=== PATIENT | female | born 1945 | race Caucasian/White ===

== ENCOUNTER 2017-04-27 11:54 | Emergency (ER) | payer MEDICARE, OTHER ==
[~2017-04-27] VITALS: Ht 170.2 cm; Wt 86.6 kg
[~2017-04-27 11:54] MED LIST: ALPR.5T PO; AMLO5TAB2 PO; CHLO500T2 PO; FNT75TD TD; MTP50T PO; NAPR-243 PO; OXYC-12 PO; blood pressure med; naprosyn
[2017-04-27] MEDS ORDERED: NS IV 1000 ML 1,000 ML IV ONE ×2 (12:14→15:10)
[2017-04-27] MEDS ORDERED: ONDANSETRON 4 MG/2 ML (SDV) Z0FRAN IVP ONE (12:15)
[2017-04-27 12:22] LABS: BASOPHILS % (AUTO) 0 % (0-10); EOSINOPHILS # (AUTO) 0.1 10^3/uL (0.0-0.3); EOSINOPHILS % (AUTO) 1 % (0-10); LYMPHOCYTES # (AUTO) 1.6 X 10^3 (1.0-4.0); LYMPHOCYTES % (AUTO) 20 % (12-44); MEAN CORPUSCULAR HEMOGLOBIN 28 PG (25-34); MEAN CORPUSCULAR HGB CONC 34 G/DL (32-36); MEAN CORPUSCULAR VOLUME 83 FL (80-99); MEAN PLATELET VOLUME 10.2 FL (7.4-10.4); MONOCYTES # (AUTO) 0.6 X 10^3 (0.0-1.0); MONOCYTES % (AUTO) 8 % (0-12); NEUTROPHILS # (AUTO) 5.6 X 10^3 (1.8-7.8); NEUTROPHILS % (AUTO) 72 % (42-75); PLATELET COUNT 240 10^3/uL (130-400); RED BLOOD COUNT 5.28 10^6/uL (4.35-5.85); RED CELL DISTRIBUTION WIDTH 14.1 % (10.0-14.5); WHITE BLOOD COUNT 7.8 10^3/uL (4.3-11.0)
--- NOTE | 2017-04-27 12:42 | ED General ---
General Chief Complaint: Abdominal/GI Problems Stated Complaint: NAUSEA/BP Nursing Triage Note: PT CO OF ABD PAIN AND VOMITING AND HTN Nursing Sepsis Screen: No Definite Risk Source of Information: Patient, Spouse Exam Limitations: No Limitations History of Present Illness Time Seen by Provider: 12:10 Initial Comments 71-year-old female patient presents to the emergency department with complaints of upper abdominal pain, nausea, and vomiting onset today. Does complain of elevated blood pressure this morning after vomiting her blood pressure medications. Reports spicy and fatty foods make symptoms worse. Patient is very anxious about health. Patient reports she was told when she had her last c -section that she had a bad gallbladder and it would eventually need removed. Has had several ultrasounds of the gallbladder that were negative. Timing/Duration: 1-3 Hours Modifying Factors: worse with Eating Allergies and Home Medications Allergies Coded Allergies: Penicillins (Unverified Adverse Reaction, Intermediate, 09/15/13) Sulfa (Sulfonamide Antibiotics) (Unverified Adverse Reaction, Intermediate , 09/15/13) Uncoded Allergies: ivp dye (Adverse Reaction, Intermediate, 09/15/13) Home Medications Alprazolam 0.5 Mg Tablet, 1 TAB PO TID PRN PRN for ANXIETY, #50 Prescribed by: ANAND SINGH on 09/22/13 1258 Amlodipine Besylate 5 Mg Tablet, 5 MG PO DAILY, #0 Prescribed by: GÓMEZ SANDY on 09/15/132026 Chlorzoxazone 500 Mg Tablet, 500 MG PO QID, (Reported) Fentanyl 1 Ea Patch, 1 EACH TD Q72H, #7 Prescribed by: NORMAN OAKLEY on 09/22/137 Metoprolol Tartrate 50 Mg Tablet, 50 MG PO BID, #0 Prescribed by: GÓMEZ SANDY on 09/15/132102 Naproxen 500 Mg Tablet, 500 MG PO BID, #0 Prescribed by: GÓMEZ SANDY on 09/15/132026 Oxycodone Hcl/Acetaminophen 1 Each Tablet, 1 EACH PO Q4-6H PRN, #30 Ref 0 Prescribed by: NORMAN OAKLEY on 09/22/13356 Constitutional: No chills, No fever, No malaise Respiratory: No cough, No short of breath Cardiovascular: No chest pain, No palpitations, No syncope Gastrointestinal: abdominal pain (RUQ), No constipation, No diarrhea, No jaundice, loss of appetite, No melena, nausea, vomiting Genitourinary: No dysuria, No frequency, No hematuria, No pain Musculoskeletal: no symptoms reported Skin: no symptoms reported Psychiatric/Neurological: Anxiety All Other Systems Reviewed Negative Unless Noted: Yes (Negative excepted noted.) Past Syzyxcb-Absqwq-Cphamq Hx Patient Social History Alcohol Use: Denies Use Recreational Drug Use: No Smoking Status: Never a Smoker Recent Foreign Travel: No Contact w/Someone Who Travel: No Recent Infectious Disease Expo: No Immunizations Up To Date Tetanus Booster (TDap): More than 5yrs Date of Pneumonia Vaccine: Sep 21, 2013 Date of Influenza Vaccine: Aug 25, 2013 Surgeries HX Surgeries: Yes Surgeries: Adenoidectomy, Appendectomy, Section, Oophorectomy, Orthopedic (laminectomy), Tonsillectomy Respiratory Hx Respiratory Disorders: No Cardiovascular Hx Cardiac Disorders: No Cardiac Disorders: Hypertension Neurological Hx Neurological Disorders: No 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 System Female 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 Disorders: Ovarian Cyst Genitourinary Hx Genitourinary Disorders: No Gastrointestinal Hx Gastrointestinal Disorders: No Musculoskeletal Hx Musculoskeletal Disorders: Yes Musculoskeletal Disorders: Arthritis, Chronic Back Pain Endocrine Hx Endocrine Disorders: No HEENT HX ENT Disorders: No Cancer Hx Cancer: No Psychosocial Hx Psychiatric Problems: No Behavioral Health Disorders: Anxiety Integumentary HX Skin/Integumentary Disorder: No Blood Transfusions Hx Blood Disorders: No Reviewed Nursing Assessment Reviewed/Agree w Nursing PMH: Yes Family Medical History Significant Family History: No Pertinent Family Hx Family Medial History: Cancer 03 FATHER (RADICAL NECK CANCER ) Family history: Cardiovascular disease 09 BROTHER Stroke 09 BROTHER, Onset:58 ( FROM STROKE) Physical Exam Vital Signs Vital Sign - Last 12Hours 04/27/17 12:10 Temp 98.1 Pulse 67 Resp 12 B/P (MAP) 178/88 Capillary Refill : Less Than 3 Seconds General Appearance: WD/WN, Anxious HEENT: PERRL/EOMI, Pharynx Normal Neck: Normal Inspection, Supple Respiratory: Lungs Clear, Normal Breath Sounds, No Respiratory Distress Cardiovascular: Regular Rate, Rhythm, No Edema, No Murmur, Normal Peripheral Pulses Gastrointestinal: Normal Bowel Sounds, No Organomegaly, No Pulsatile Mass, Soft , No Distended, Guarding (RUQ), No Rebound, Tenderness (RUQ tenderness with (+) orozco's sign.) Back: Normal Inspection, No CVA Tenderness Extremity: Normal Capillary Refill, No Pedal Edema Neurologic/Psychiatric: Alert, Oriented x3, Other (patient is very anxious. difficult to keep focused. ) Skin: Normal Color, Warm/Dry Progress/Results/Core Measures Results/Orders Lab Results Laboratory Tests Test 04/27/17 12:06 04/27/17 12:10 04/27/17 13:30 Range/Units Glucometer 141 H 70-110 MG/DL White Blood Count 7.8 4.3-11.0 10^3/uL Red Blood Count 5.28 4.35-5.85 10^6/uL Hemoglobin 15.0 11.5-16.0 G/DL Hematocrit 44 35-52 % Mean Corpuscular Volume 83 80-99 FL Mean Corpuscular Hemoglobin 28 25-34 PG Mean Corpuscular Hemoglobin Concent 34 32-36 G/DL Red Cell Distribution Width 14.1 10.0-14.5 % Platelet Count 240 130-400 10^3/uL Mean Platelet Volume 10.2 7.4-10.4 FL Neutrophils (%) (Auto) 72 42-75 % Lymphocytes (%) (Auto) 20 12-44 % Monocytes (%) (Auto) 8 0-12 % Eosinophils (%) (Auto) 1 0-10 % Basophils (%) (Auto) 0 0-10 % Neutrophils # (Auto) 5.6 1.8-7.8 X 10^3 Lymphocytes # (Auto) 1.6 1.0-4.0 X 10^3 Monocytes # (Auto) 0.6 0.0-1.0 X 10^3 Eosinophils # (Auto) 0.1 0.0-0.3 10^3/uL Basophils # (Auto) 0.0 0.0-0.1 10^3/uL Sodium Level 141 135-145 MMOL/L Potassium Level 3.8 3.6-5.0 MMOL/L Chloride Level 107 98-107 MMOL/L Carbon Dioxide Level 22 21-32 MMOL/L Anion Gap 12 5-14 MMOL/L Blood Urea Nitrogen 24 H 7-18 MG/DL Creatinine 1.13 0.60-1.30 MG/DL Estimat Glomerular Filtration Rate 47 BUN/Creatinine Ratio 21 Glucose Level 137 H 70-105 MG/DL Calcium Level 9.9 8.5-10.1 MG/DL Total Bilirubin 0.7 0.1-1.0 MG/DL Aspartate Amino Transf (AST/SGOT) 25 5-34 U/L Alanine Aminotransferase (ALT/SGPT) 29 0-55 U/L Alkaline Phosphatase 101 40-136 U/L Total Protein 7.3 6.4-8.2 GM/DL Albumin 3.9 3.2-4.5 GM/DL Lipase 14 8-78 U/L Urine Color YELLOW Urine Clarity CLEAR Urine pH 7 5-9 Urine Specific [place] 1.005 L 1.016-1.022 Urine Protein 2+ H NEGATIVE Urine Glucose (UA) NEGATIVE NEGATIVE Urine Ketones NEGATIVE NEGATIVE Urine Nitrite NEGATIVE NEGATIVE Urine Bilirubin NEGATIVE NEGATIVE Urine Urobilinogen NORMAL NORMAL MG/DL Urine Leukocyte Esterase NEGATIVE NEGATIVE Urine RBC (Auto) NEGATIVE NEGATIVE Urine RBC NONE /HPF Urine WBC RARE /HPF Urine Crystals NONE /LPF Urine Bacteria NEGATIVE /HPF Urine Casts NONE /LPF Urine Mucus NEGATIVE /LPF Urine Culture Indicated NO My Orders Orders - REBECCA DASILVA Cbc With Automated Diff (04/27/17 12:14) Comprehensive Metabolic Panel (04/27/17 12:14) Lipase (04/27/17 12:14) Ua Culture If Indicated (04/27/17 12:14) Saline Lock/Iv-Start (04/27/17 12:14) Us Gallbladder 30097 (04/27/17 12:14) Ns Iv 1000 Ml (Sodium Chloride 0.9%) (04/27/17 12:14) Ondansetron Injection (Zofran Injectio (04/27/17 12:15) Lorazepam Injection (Ativan Injection) (04/27/17 13:45) Ns Iv 1000 Ml (Sodium Chloride 0.9%) (04/27/17 15:10) Meclizine Tablet (Antivert Tablet) (04/27/17 15:10) Medications Given in ED Current Medications Medications Dose Ordered Sig/Sara Route Start Time Stop Time Status Last Admin Dose Admin Lorazepam 1 mg ONCE ONCE IVP 04/27/17 13:45 04/27/17 13:46 DC 04/27/17 13:43 1 MG Ondansetron HCl 4 mg ONCE ONCE IVP 04/27/17 12:15 04/27/17 12:16 DC 04/27/17 12:49 4 MG Sodium Chloride 1,000 ml @ 0 mls/hr Q0M ONCE IV 04/27/17 12:14 04/27/17 12:15 DC 04/27/17 12:48 1,000 MLS/HR Sodium Chloride 1,000 ml @ 0 mls/hr Q0M ONCE IV 04/27/17 15:10 04/27/17 15:11 DC 04/27/17 15:15 0 MLS/HR Vital Signs/I&O Vital Sign - Last 12Hours 04/27/17 12:10 Temp 98.1 Pulse 67 Resp 12 B/P (MAP) 178/88 Blood Pressure Mean: 118 Diagnostic Imaging Diagonstic Imaging: Ultrasound Plain Films/CT/US/NM/MRI: other (gallbladder) Comments FINDINGS: The liver appears unremarkable. Doppler imaging demonstrates normal hepatopetal flow in the main portal vein. There is no biliary dilatation. Common bile duct measures about 7 mm, which is upper limits normal for patient age. The gallbladder appears unremarkable. The pancreas is unremarkable as visualized but incompletely seen. The right kidney measures 10.7 cm in length and appears normal. There is no ascites or sonographic Orozco's sign. IMPRESSION : No acute abnormality is demonstrated. There is limited visualization of the pancreas. Dictated on workstation # [id number] Reviewed: Reviewed by Me (radiology report reviewed by me) Departure Impression Impression: Primary Impression: Right upper quadrant abdominal pain Additional Impressions: Nausea & vomiting Anxiety about health Hypertension Disposition: HOME, SELF-CARE Condition: Improved Departure-Patient Inst. Decision time for Depature: 13:48 Referrals: DEBORAH MORALES MD (PCP/Family) Primary Care Physician Patient Instructions: HIDA Scan (DC), Low Cholesterol, Saturated Fat, and Trans Fat Diet Add. Discharge Instructions: All discharge instructions reviewed with patient and/or family. Voiced understanding. Medications as instructed. Check blood pressure no more than 2-3 times per day for routine checks and as needed for when you are not feeling well. Avoid standing too quickly. Sit on the side of the bed for 3-4 minutes before standing when getting out of bed. Alternate water and gatorade/powerade. Avoid the heat for the next 3-4 days as much as possible. STOP THE HYDROCHLOROTHIAZIDE. Continue xanax, doxazosin, amlodipine, glimepiride, losartan, fluticasone, and zofran as instructed. Strict low-fat diet. Continue usual home medications. Avoid spicy and fatty foods. Follow-up with Dr. Morales as an outpatient for recheck and possible need for outpatient hepatobiliary scan to further evaluate the gallbladder. Call today for appointment time. Return to the emergency department for worsened symptoms or any other concerns. Scripts Meclizine HCl (Meclizine HCl) 25 Mg Tablet 25 MG PO Q6H Y for DIZZINESS, #30 TAB 0 Refills Prov: REBECCA DASILVA 04/27/17 REBECCA DASILVA Apr 27, 2017 12:42
[2017-04-27 12:45] LABS: ALBUMIN 3.9 GM/DL (3.2-4.5); BILIRUBIN,TOTAL 0.7 MG/DL (0.1-1.0); CALCIUM 9.9 MG/DL (8.5-10.1); CREATININE SERUM 1.13 MG/DL (0.60-1.30); POTASSIUM 3.8 MMOL/L (3.6-5.0); TOTAL PROTEIN 7.3 GM/DL (6.4-8.2)
[2017-04-27 13:39] LABS: BILIRUBIN,URINE NEGATIVE (NEGATIVE); KETONES,URINE NEGATIVE (NEGATIVE); LEUKOCYTE ESTERASE ,URINE NEGATIVE (NEGATIVE); NITRITE,URINE NEGATIVE (NEGATIVE); PH,URINE 7 (5-9); PROTEIN,URINE 2+ (NEGATIVE); UROBILINOGEN,URINE NORMAL (NORMAL)
[2017-04-27] MEDS ORDERED: LORazepam INJ 2 MG/ML (ATIVAN) VIAL IVP ONE (13:45)
--- NOTE | 2017-04-27 13:45 | Diagnostic Imaging Report ---
PROCEDURE: US Gallbladder. TECHNIQUE: Multiple real-time grayscale images were obtained over the right upper quadrant in various projections. INDICATION: Nausea and vomiting. COMPARISON: None. FINDINGS: The liver appears unremarkable. Doppler imaging demonstrates normal hepatopetal flow in the main portal vein. There is no biliary dilatation. Common bile duct measures about 7 mm, which is upper limits normal for patient age. The gallbladder appears unremarkable. The pancreas is unremarkable as visualized but incompletely seen. The right kidney measures 10.7 cm in length and appears normal. There is no ascites or sonographic Orozco's sign. IMPRESSION: No acute abnormality is demonstrated. There is limited visualization of the pancreas. Dictated by: Dictated on workstation # [id number]
[2017-04-27 13:48] LABS: WBC,URINE RARE /HPF
[2017-04-27] MEDS ORDERED: MECLIZINE 25 MG (ANTIVERT) TAB PO STA (15:10)
[2017-04-27] MEDS ORDERED: MECL-106 PO (16:17)
[2017-04-27 16:30] VITALS: BP 165/74
== END 2017-04-27 16:30 | disposition home or self-care (01) ==
LOC: EDUNIT# 11:54 → ER 11:57
DX: R10.11 Right upper quadrant pain (principal); R11.2 Nausea with vomiting, unspecified; I10 Essential (primary) hypertension; F41.9 Anxiety disorder, unspecified; M54.9 Dorsalgia, unspecified; G89.29 Other chronic pain; M19.90 Unspecified osteoarthritis, unspecified site; Z82.49 Family history of ischemic heart disease and other diseases of the circulatory system; Z90.49 Acquired absence of other specified parts of digestive tract
CPT/HCPCS: 36415; 76705; 80053; 81000; 82962; 83690; 85025; 96361; 96374; 96375

== ENCOUNTER → 2017-06-14 | Outpatient (CLI) | payer MEDICARE, OTHER ==
[~2017-06-14] MED LIST changes: +MECL-106 PO
--- NOTE | 2017-06-16 14:12 | Diagnostic Imaging Report ---
EXAMINATION: Bilateral screening mammogram 2D views with tomosynthesis. The current study was also evaluated with a Computer Aided Detection (CAD) system. INDICATION: Screening. PERSONAL HISTORY: No current complaints stated on the questionnaire. COMPARISON: 04/20/2016. FINDINGS: The breasts are composed of scattered fibroglandular densities. There are numerous benign-appearing calcifications and biopsy clips seen in the medial aspect of the right breast. Allowing for technique and positional differences, no suspicious change is seen. IMPRESSION: No significant change. ACR BI-RADS Category 2: Benign findings. Result letter will be mailed to the patient. Note: At least 10% of breast cancer is not imaged by mammography. Dictated by: Dictated on workstation # [id number]
== END ==
LOC: RAD 14:43
PROVIDERS: ATTEND Nurse Practitioner Family
DX: Z12.31 Encounter for screening mammogram for malignant neoplasm of breast (principal)
CPT/HCPCS: 77067

== ENCOUNTER 2018-04-25 18:00 | Outpatient (RCR) | payer MEDICARE, OTHER ==
[~2018-04-25] VITALS: Ht 170.2 cm; Wt 93.0 kg
== END 2018-05-03 | disposition still patient (30) ==
LOC: DSME 18:00
PROVIDERS: ATTEND Family Medicine
DX: E11.9 Type 2 diabetes mellitus without complications (principal)

== ENCOUNTER → 2018-07-15 | Outpatient (CLI) | payer MEDICARE, OTHER ==
--- NOTE | 2018-07-15 12:14 | Diagnostic Imaging Report ---
EXAMINATION: Digital mammogram bilateral screening with 3D tomosynthesis. INDICATION: Screening. COMPARISON: This study was compared to the prior exams of 06/14/2017, 04/20/2016, 04/22/2015, and 10/23/2014. At this time, there are no current complaints. The current study was also evaluated with a Computer Aided Detection (CAD) system. FINDINGS: The fibroglandular tissue in both breasts is heterogeneously dense. This does limit the sensitivity of this exam. As on the previous study, there are numerous microcalcifications scattered throughout the right breast. These calcifications are somewhat more numerous than noted on the previous study but still have a generally benign appearance. The calcifications are not tightly grouped and do not seem to be pleomorphic. The stereotactic clip in the mid medial aspect of the right breast seen previously is again evident and no different. The left breast is unchanged. IMPRESSION: The microcalcifications in the right breast do seem somewhat more numerous than on the prior exam. However, these calcifications still have a generally benign appearance. There is no primary or secondary sign of malignancy noted. ACR BI-RADS Category 1: Negative. Result letter will be mailed to the patient. Note: At least 10% of breast cancer is not imaged by mammography. Dictated by: Dictated on workstation # [id number]
== END ==
LOC: RAD 10:33
PROVIDERS: ATTEND Nurse Practitioner Family
DX: Z12.31 Encounter for screening mammogram for malignant neoplasm of breast (principal); R92.0 Mammographic microcalcification found on diagnostic imaging of breast
CPT/HCPCS: 77067

== ENCOUNTER → 2019-02-28 | Outpatient (CLI) | payer MEDICARE, OTHER ==
--- NOTE | 2019-02-28 14:28 | Diagnostic Imaging Report ---
INDICATION: Right hip pain. COMPARISON: 09/15/2013. TECHNIQUE: Two radiographs of the right hip are dated February 28, 2019. FINDINGS: No acute fracture or dislocation. No destructive osseous process. Mild right hip joint space narrowing with associated moderate osteophytosis. The right femoral head maintains its normal shape and contour. Degenerative changes of the right sacroiliac joint are noted. The pubic symphysis is intact. No suspicious radiopaque foreign body. IMPRESSION: No acute osseous abnormality with mild to moderate degenerative changes associated with the right hip and right sacroiliac joint. Dictated by: Dictated on workstation # [id number]
== END ==
LOC: RAD 12:40
PROVIDERS: ATTEND Family Medicine
DX: M16.11 Unilateral primary osteoarthritis, right hip (principal)
CPT/HCPCS: 73502

== ENCOUNTER → 2019-02-28 | Outpatient (CLI) | payer MEDICARE, OTHER ==
--- NOTE | 2019-02-28 11:09 | Diagnostic Imaging Report ---
INDICATION: Back pain. COMPARISON: 10/02/2013. TECHNIQUE: 3 radiographs of lumbar spine dated 02/28/2019. FINDINGS: 5 lumbar type vertebral bodies are present. Mild apex left curvature of the lumbar spine with apex at L3. No significant anterolisthesis or retrolisthesis. Advanced endplate degenerative changes are identified at multiple levels, particularly within the upper lumbar spine. Chronic appearing anterior wedging of T12 and L1. No definite acute vertebral body height loss. Severe disc space height loss at T12/L1 with moderate disc space height loss at L1/L2 and L2/L3 with prominent anterior osteophyte formation. Severe disc space height loss at L5/S1 with associated prominent osteophyte formation. No acute fracture or dislocation. No destructive osseous process. Scattered facet joint degenerative changes, greatest within the lower lumbar spine. Scattered vascular calcifications. The sacroiliac joints are intact. IMPRESSION: No acute osseous abnormality with moderate multilevel degenerative changes, mild apex left curvature of the spine, and chronic minimal anterior wedging as described above. Dictated by: Dictated on workstation # [id number]
== END ==
LOC: RAD 10:39
PROVIDERS: ATTEND Nurse Practitioner Family
DX: M43.8X6 Other specified deforming dorsopathies, lumbar region (principal); M47.816 Spondylosis without myelopathy or radiculopathy, lumbar region; M25.78 Osteophyte, vertebrae; M51.36 Other intervertebral disc degeneration, lumbar region; M51.35 Other intervertebral disc degeneration, thoracolumbar region; M51.37 Other intervertebral disc degeneration, lumbosacral region; I99.9 Unspecified disorder of circulatory system
CPT/HCPCS: 72100

== ENCOUNTER 2019-03-08 14:54 | Inpatient (IN) | payer MEDICARE, OTHER ==
[~2019-03-08] VITALS: Ht 170.2 cm; Wt 86.5 kg
[~2019-03-08 14:54] MED LIST changes: -ALPR0.5T7 PO; -AMLO10TA7 PO; -ATOR10TA66 PO; -BACL10TA PO; -BISA5TAB8 PO; -CHLO500T4 PO; -CLON0.1T; -DIAZ5TAB PO; -DICL100G31 TOP; -FAMO20TA3 PO; -FLUT16SP22 NS; -GLIM4TAB PO; -HYDR-3922 PO; -LOSA100T57 PO; -MECL12.579 PO; -METO50TA15 PO; -OLOP2.5D5 OU; -ONDA4TAB11 PO; -OXYC1TAB12 PO; -PROC-1 PO; -TRAM50TA2 PO
[2019-03-08] MEDS ORDERED: ONDANSETRON 4 MG/2 ML (SDV) Z0FRAN ONE (14:55)
[2019-03-08] MEDS ORDERED: NS IV 500 ML 500 ML IV ONE ×2 (15:06→15:33)
[2019-03-08] MEDS ORDERED: fentaNYL INJECTION 100 MCG/2 ML AMP ONE (15:07)
--- NOTE | 2019-03-08 15:10 | ED GI ---
General Chief Complaint: Abdominal/GI Problems Stated Complaint: N/V Source of Information: Patient, Spouse Exam Limitations: No Limitations History of Present Illness Date Seen by Provider: Mar 08, 2019 Time Seen by Provider: 14:58 Initial Comments Patient presents to ER by private conveyance with her and chief complaint that she is having nausea and vomiting. She just finished an MRI of her back and hip. She says the nausea is secondary to her pain which was a 10 out of 10 when she arrived at 5 out of 10 when she got off the chair into the bed. She's been worked up outpatient by Dr. Morales for her hip pain and the MRI is the most recent order. She took tramadol 50 mg 2 hours ago just prior to coming in for the MRI. She's taken tramadol before and it did not cause nausea. She feels the pain getting out of control is what causes her nausea and vomiting. She has a history of , hysterectomy, appendectomy. She had an ultrasound of her gallbladder. She says the pain is down in her right lower hip. No history of vasculopathy. Her states she is diabetic and was concerned that maybe her blood sugar was low. She denies any recent falls, motor vehicle accidents or other trauma. The patient has been going for 2 weeks to outpatient physical therapy. Her symptoms began about 3 weeks ago. She said she had similar symptoms to this many years ago and Dr. Anders had to do a discectomy. She feels like this is the same thing. She denies urinary or bowel incontinence. She is having some numbness and tingling around the level of her right medial knee. The patient does not tolerate NSAIDs secondary to diabetes mellitus and stage III CKD. Allergies and Home Medications Allergies Coded Allergies: Penicillins (Unverified Adverse Reaction, Intermediate, 09/15/13) Sulfa (Sulfonamide Antibiotics) (Unverified Adverse Reaction, Intermediate, 09/15/13) Uncoded Allergies: ivp dye (Adverse Reaction, Intermediate, 09/15/13) Home Medications Alprazolam 0.5 Mg Tablet, 1 TAB PO TID PRN PRN for ANXIETY Prescribed by: ANAND SINGH on 09/22/13 1258 Amlodipine Besylate 5 Mg Tablet, 5 MG PO DAILY Prescribed by: GÓMEZ SANDY on 09/15/132026 Chlorzoxazone 500 Mg Tablet, 500 MG PO QID, (Reported) Fentanyl 1 Ea Patch, 1 EACH TD Q72H Prescribed by: NORMAN OAKLEY on 09/22/13 035 Meclizine HCl 25 Mg Tablet, 25 MG PO Q6H PRN for DIZZINESS Prescribed by: REBECCA DASILVA on 04/27/17 161 Metoprolol Tartrate 50 Mg Tablet, 50 MG PO BID Prescribed by: GÓMEZ SANDY on 09/15/132102 Naproxen 500 Mg Tablet, 500 MG PO BID Prescribed by: GÓMEZ SANDY on 09/15/132026 Oxycodone Hcl/Acetaminophen 1 Each Tablet, 1 EACH PO Q4-6H PRN Prescribed by: NORMAN OAKLEY on 09/22/13 035 Patient Home Medication List Home Medication List Reviewed: Yes Review of Systems Review of Systems Constitutional: No chills, No diaphoresis, No fever, No weakness EENTM: No Eye Pain, No Eye Tearing Respiratory: Denies Cough, Denies Shortness of Air Cardiovascular: Denies Chest Pain, Denies Edema Gastrointestinal: Denies Abdomen Distended, Denies Abdominal Pain, Denies Constipated, Denies Diarrhea; Nausea; Denies Poor Fluid Intake; Vomiting Genitourinary: Denies Burning, Denies Discharge Musculoskeletal: No back pain; joint pain (right hip) Skin: No pruritus, No rash Past Vnrpopl-Rwaunr-Wdupop Hx Patient Social History Alcohol Use: Denies Use Recreational Drug Use: No 2nd Hand Smoke Exposure: No Immunizations Up To Date Tetanus Booster (TDap): More than 5yrs Date of Pneumonia Vaccine: Sep 21, 2013 Date of Influenza Vaccine: Aug 25, 2013 Past Medical History Surgeries: Yes Adenoidectomy, Appendectomy, Section, Oophorectomy, Orthopedic, Tonsillectomy Respiratory: No Cardiac: Yes Hypertension Neurological: No Female 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 Disorders: Ovarian Cyst Gastrointestinal: No Musculoskeletal: Yes Arthritis, Chronic Back Pain Endocrine: No Cancer: No Psychosocial: Yes Anxiety Integumentary: No Blood Disorders: No Family Medical History Cancer 03 FATHER (RADICAL NECK CANCER ) Family history: Cardiovascular disease 09 BROTHER Stroke 09 BROTHER, Onset:58 ( FROM STROKE) No Pertinent Family Hx Physical Exam Vital Signs Vital Signs - First Documented 03/08/19 14:57 Temp 97.9 Pulse 77 Resp 25 B/P (MAP) 177/86 (116) Pulse Ox 97 O2 Delivery Room Air Capillary Refill : Height/Weight/BMI Height: 5'7.00" Weight: 205lbs. 5.0oz. 86.675864mz; 32.10 BMI Method:Stated General Appearance: WD/WN, no apparent distress HEENT: PERRL/EOMI, normal ENT inspection, pharynx normal Neck: full range of motion, normal inspection Respiratory: lungs clear, normal breath sounds, no respiratory distress, no accessory muscle use Cardiovascular: normal peripheral pulses, regular rate, rhythm Peripheral Pulses: 2+ Radial Pulses (R), 2+ Radial Pulses (L) Gastrointestinal: normal bowel sounds, non tender, soft, no organomegaly, other (negative for mesenteric signs, Orozco's sign.) Extremities: normal capillary refill, other (tenderness over the right greater trochanter direct palpation. Able to transition with standby assist but decreased ability to support weight on the right leg.) Back: normal inspection, no vertebral tenderness Neurologic/Psychiatric: alert, oriented x 3 Skin: normal color, warm/dry Progress/Results/Core Measures Results/Orders Lab Results Laboratory Tests Test 03/08/19 15:05 03/08/19 15:11 Range/Units White Blood Count 13.4 H 4.3-11.0 10^3/uL Red Blood Count 5.22 4.35-5.85 10^6/uL Hemoglobin 15.8 11.5-16.0 G/DL Hematocrit 45 35-52 % Mean Corpuscular Volume 86 80-99 FL Mean Corpuscular Hemoglobin 30 25-34 PG Mean Corpuscular Hemoglobin Concent 35 32-36 G/DL Red Cell Distribution Width 12.9 10.0-14.5 % Platelet Count 299 130-400 10^3/uL Mean Platelet Volume 9.9 7.4-10.4 FL Neutrophils (%) (Auto) 69 42-75 % Lymphocytes (%) (Auto) 23 12-44 % Monocytes (%) (Auto) 7 0-12 % Eosinophils (%) (Auto) 1 0-10 % Basophils (%) (Auto) 0 0-10 % Neutrophils # (Auto) 9.3 H 1.8-7.8 X 10^3 Lymphocytes # (Auto) 3.1 1.0-4.0 X 10^3 Monocytes # (Auto) 0.9 0.0-1.0 X 10^3 Eosinophils # (Auto) 0.1 0.0-0.3 10^3/uL Basophils # (Auto) 0.1 0.0-0.1 10^3/uL Sodium Level 133 L 135-145 MMOL/L Potassium Level 4.2 3.6-5.0 MMOL/L Chloride Level 99 98-107 MMOL/L Carbon Dioxide Level 20 L 21-32 MMOL/L Anion Gap 14 5-14 MMOL/L Blood Urea Nitrogen 21 H 7-18 MG/DL Creatinine 1.33 H 0.60-1.30 MG/DL Estimat Glomerular Filtration Rate 39 BUN/Creatinine Ratio 16 Glucose Level 160 H 70-105 MG/DL Calcium Level 10.1 8.5-10.1 MG/DL Corrected Calcium 9.9 8.5-10.1 MG/DL Magnesium Level 1.9 1.8-2.4 MG/DL Total Bilirubin 0.8 0.1-1.0 MG/DL Aspartate Amino Transf (AST/SGOT) 24 5-34 U/L Alanine Aminotransferase (ALT/SGPT) 23 0-55 U/L Alkaline Phosphatase 91 40-136 U/L C-Reactive Protein High Sensitivity 0.53 H 0.00-0.50 MG/DL Total Protein 7.2 6.4-8.2 GM/DL Albumin 4.2 3.2-4.5 GM/DL Lipase 11 8-78 U/L Glucometer 152 H 70-110 MG/DL My Orders Orders - MONA COHEN Ua Culture If Indicated (03/08/19 14:55) Ondansetron Injection (Zofran Injectio (03/08/19 14:55) Ondansetron Injection (Zofran Injectio (03/08/19 15:15) Cbc With Automated Diff (03/08/19 15:06) Comprehensive Metabolic Panel (03/08/19 15:06) Hs C Reactive Protein (03/08/19 15:06) Lipase (03/08/19 15:06) Magnesium (03/08/19 15:06) Ed Iv/Invasive Line Start (03/08/19 15:06) Ns Iv 500 Ml (Sodium Chloride 0.9%) (03/08/19 15:06) Fentanyl Injection (Sublimaze Injection (03/08/19 15:15) Fentanyl Injection (Sublimaze Injection (03/08/19 15:07) Promethazine Injection (Phenergan Injec (03/08/19 15:45) Ed Iv/Invasive Line Start (03/08/19 15:33) Ns Iv 500 Ml (Sodium Chloride 0.9%) (03/08/19 15:33) Promethazine Injection (Phenergan Injec (03/08/19 15:30) Hydromorphone Injection (Dilaudid Inject (03/08/19 16:30) Medications Given in ED Current Medications Medications Dose Ordered Sig/Sara Route Start Time Stop Time Status Last Admin Dose Admin Fentanyl Citrate 50 mcg ONCE ONCE IVP 03/08/19 15:15 03/08/19 15:16 DC 03/08/19 15:13 50 MCG Ondansetron HCl 8 mg ONCE ONCE IVP 03/08/19 15:15 03/08/19 15:16 DC 03/08/19 15:10 8 MG Promethazine HCl 25 mg ONCE ONCE IVP 03/08/19 15:45 03/08/19 15:46 DC 03/08/19 15:44 25 MG Sodium Chloride 500 ml @ 0 mls/hr Q0M ONCE IV 03/08/19 15:06 03/08/19 15:07 DC 03/08/19 15:13 500 MLS/HR Sodium Chloride 500 ml @ 0 mls/hr Q0M ONCE IV 03/08/19 15:33 03/08/19 15:35 DC 03/08/19 15:44 500 MLS/HR Vital Signs/I&O 03/08/19 14:57 Temp 97.9 Pulse 77 Resp 25 B/P (MAP) 177/86 (116) Pulse Ox 97 O2 Delivery Room Air Progress Progress Note #1: Time: 15:13 Progress Note Fentanyl 50 g and Zofran 8 mg. The patient is put out a small amount of emesis without overt blood in it. Hip x-ray February 28 demonstrates xbva-bj-vwumfwwk sacroiliitis and degenerative changes of the hip. Her symptoms improved significantly just by laying down in bed which would be consistent with neurogenic claudication. Progress Note #2: Time: 15:36 Progress Note Patient's nausea had improved as well as her pain after the initial fentanyl dose. Patient says in the past and will admit her very nauseated and when it was revealed that she was given she started to have nausea and without vomiting. We'll give her some Phenergan and another 500 cc of fluid for a total of 1000 cc. She's not been on steroids for this. If we get her pain and nausea under control you can start some steroids and let her go home and follow-up with primary care to get referred to a surgeon. If not we may admit her for intractable nausea vomiting and pain related to central canal stenosis secondary to disc disease. Her blood glucose is 152 on arrival. Progress Note #3: Time: 16:12 Progress Note The nausea has improved with the Phenergan however the patient still rates her pain as a 7/10. Plan to give her some Dilaudid and seek inpatient management of her intractable pain. Sounds like she has already gone through several conservative measures and has findings on MRI that could be amenable to surgical intervention. Diagnostic Imaging Diagonstic Imaging: MRI Plain Films/CT/US/NM/MRI: other (lumbar spine) Comments [facility] [id number] PHYSICIAN: RICH HERNANDEZ CC: ARTIE PARSONS MD; RICH HERNANDEZ Page 2 of 2 RADIOLOGY REPORT [facility] [place] [place] CC: ARTIE PARSONS MD; RICH HERNANDEZ Page 1 of 2 RADIOLOGY REPORT NAME: ADRIANA FERRELL [facility] REC#: [id number] PT STATUS: REG CLI : 1945 PHYSICIAN: RICH HERNANDEZ ADMIT DATE: 03/08/19/RAD Signed Date of Exam: 03/08/19 MRI LUMBAR SPINE W/O CONTRAST PROCEDURE: MRI lumbar spine. TECHNIQUE: Multiplanar, multisequence MRI of the lumbar spine was performed without contrast. INDICATION: Low back pain as well as right hip and leg pain. Patient had lumbar spine surgery in 1990. COMPARISON: No prior studies are available for comparison. FINDINGS: There is mild left convexity lumbar scoliotic curvature. There is normal lordotic curvature. There is minimal retrolisthesis of L2 on L3. Vertebral body heights are maintained. No acute compression fracture is detected. Benign-appearing hemangiolipomas are identified within L1, L2, and L4 vertebral bodies. Severe multilevel degenerative disc disease is seen with variable disc space narrowing and desiccation and endplate osteophyte formation. The conus is unremarkable at the L1 level. T12-L1: Endplate osteophytes indent the ventral thecal sac, but central canal remains patent. There is [id number] left neural foraminal narrowing. L1-2: Broad-based disc/osteophyte complex flattens the ventral thecal sac. Central canal remains patent. There is moderate right and mild left neural foraminal stenosis. L2-3: Broad-based disc/osteophyte complex indents the ventral thecal sac and produces moderate narrowing of the canal. There is also significant narrowing of the lateral recesses bilaterally. Mild bilateral neural foraminal narrowing is present. L3-4: Broad-based disc/osteophyte complex flattens the ventral thecal sac and produces mild central canal narrowing. There is significant right and mild left lateral recess stenosis. There is severe right and mild left neural foraminal stenosis. L4-5: Broad-based disc/osteophyte complex indents the ventral thecal sac and produces moderate narrowing of the canal. There is significant bilateral lateral recess stenosis. There is moderate right and severe left neural foraminal stenosis. Hypertrophic facet changes are also noted. L5-S1: There appears to be a midline disc which appears to be extruded extending at the midline and slightly caudal to the L5-S1 disc space. This measures approximately 8 mm in diameter. This may impinge upon the right S1 nerve root origin. Central canal is patent. Neural foramina are patent. There are hypertrophic facet changes noted. Paraspinous tissues are unremarkable. IMPRESSION: 1. Severe multilevel lumbar spondylosis with multilevel central canal, lateral recess, and neural foraminal stenosis, described level by level above. There appears to be an extruded disc at the midline at L5-S1 level extending slightly caudal and likely impinging upon the origin of the right S1 nerve root. 2. No evidence of acute compression fracture. Dictated by: Dictated on workstation # [id number] Dict: 03/08/19 1409 Trans: 03/08/19 1502 Interpreted by: ARTIE PARSONS MD Electronically signed by: ARTIE PARSONS MD 03/08/19 1502 Reviewed: Reviewed by Me Consults : Consulting Physician: YAO MATTHEWS DO Consults Notes Discussed the case with Dr. Matthews and he says he would be happy to follow the patient up in the clinic. Departure Communication (Admissions) Time/Spoke to Admitting Phy: 16:15 Discussed the case with Dr. Morales. We will try and get her pain under control convert her over to by mouth pain medicines. Impression Primary Impression: Nausea and vomiting Qualified Codes: R11.2 - Nausea with vomiting, unspecified Additional Impression: Lumbar spinal stenosis Qualified Codes: M48.062 - Spinal stenosis, lumbar region with neurogenic claudication Disposition: ADMITTED INPATIENT Condition: Stable Admissions Decision to Admit Reason: Admit from ER (General) Decision to Admit/Date: Mar 08, 2019 Time/Decision to Admit Time: 16:14 Departure-Patient Inst. Referrals: DEBORAH MORALES MD (PCP/Family) Primary Care Physician MONA COHEN Mar 08, 2019 15:10
--- OUTSIDE RECORDS SUMMARY | 2019-03-08 15:11 | XMS REPORT | CCD ---
Author Author Fifi Camejo Organization Fifi Camejo MD, [facility] Address [address] [place] [address] Phone Care Team Providers Care Denitrator Operator Name Role Phone PP Unavailable CCM Unavailable Summary Purpose Interface Exchange Insurance Providers Payer name Policy type / Coverage type Covered libertarian ID Effective Begin Date Effective End Date WPS Medicare Part B Medicare Part B [id number] 2018 Unknown FOR LIFE WPS Medicare Part B [id number] Unknown Family history Father Diagnosis Age At Onset Cancer Unknown Brother Diagnosis Age At Onset Diabetes mellitus Type 2 Unknown Heart Attack Unknown Social History Social History Element Codes Description Effective Dates Marital status Unknown Wu 11/05/2016 Number of children Unknown 1 07/06/2016 Employment Unknown Retired 07/06/[address]: 977908899 Never smoker 07/06/[address]: 330962492 Never drinks alcohol 07/06/2016 Allergies, Adverse Reactions, Alerts Substance Reaction Codes Entered Date Inactivated Date Status Protonix hives RxNorm: 522359 09/06/2018 No Inactive Date Active IV DYE, IODINE CONTAINING emesis, emesis Unknown 04/28/2018 No Inactive Date Active MORPHINE AND RELATED Unknown 04/28/2018 No Inactive Date Active Penicillin Unknown 07/06/2016 No Inactive Date Active Past Medical History Illness Codes Condition Status Onset Date Resolved Date Essential (primary) hypertension ICD-9: 401.1 ICD-10: I10 Active 09/20/2016 Unknown Pain in right hip ICD-9: 719.45 ICD-10: M25.551 Active 02/28/2019 Unknown Type 2 diabetes mellitus without complications ICD-9: 250.00 ICD-10: E11.9 Active 09/20/2016 Unknown Lumbago with sciatica, right side ICD-9: 724.3 ICD-10: M54.41 Active 01/30/2019 Unknown Muscle spasm of back ICD- 9: 724.8 ICD-10: M62.830 Active 02/14/2019 Unknown Sciatica Unknown Active 01/30/2019 Unknown Other allergic rhinitis ICD-9: 477.8 ICD-10: J30.89 Active 03/12/2017 Unknown Cough ICD-9: 786.2 ICD-10: R05 Active 11/05/2016 Unknown Dysuria ICD-9: 788.1 ICD-10: R30.0 Active 09/17/2016 Unknown Other acute sinusitis ICD- 9: 461.8 ICD-10: J01.80 Active 03/12/2017 Unknown Encounter for general adult medical examination with abnormal findings ICD-9: V70.0 ICD-10: Z00.01 Active 03/30/2017 Unknown Mixed hyperlipidemia ICD- 9: 272.2 ICD-10: E78.2 Active 07/05/2016 Unknown Encounter for screening mammogram for malignant neoplasm of breast ICD-9: V76.10 ICD-10: Z12.31 Active 07/18/2018 Unknown Pain in left foot ICD-9: 729.5 ICD-10: M79.672 Active 08/24/2017 Unknown Otalgia, bilateral ICD- 9: 388.70 ICD-10: H92.03 Active 03/16/2017 Unknown Cysts of left upper eyelid ICD-9: 374.84 ICD-10: H02.824 Active 08/24/2017 Unknown Dizziness and giddiness ICD-9: 780.4 ICD-10: R42 Active 04/15/2017 Unknown Orthostatic hypotension ICD-9: 458.0 ICD-10: I95.1 Active 05/03/2017 Unknown Gastro-esophageal reflux disease without esophagitis ICD-9: 530.81 ICD-10: K21.9 Active 11/17/2016 Unknown Other malaise ICD-9: 780.79 ICD-10: R53.81 Active 04/15/2017 Unknown Acute suppurative otitis media without spontaneous rupture of ear drum, bilateral ICD-9: 381.00 ICD-10: H66.003 Active 03/12/2017 Unknown Diabetes Unknown Active 01/20/2017 Unknown Acute bronchitis due to other specified organisms ICD-9: 466.0 ICD-10: J20.8 Active 11/05/2016 Unknown Carpal tunnel syndrome, left upper limb ICD-9: 354.0 ICD-10: G56.02 Active 07/05/2016 Unknown Right upper quadrant pain ICD-9: 789.01 ICD-10: R10.11 Active 07/05/2016 Unknown Problems Condition Codes Effective Dates Condition Status Essential (primary) hypertension ICD-9: 401.1 ICD-10: I10 09/20/2016 Active Pain in right hip ICD-9: 719.45 ICD-10: M25.551 02/28/2019 Active Type 2 diabetes mellitus without complications ICD-9: 250.00 ICD-10: E11.9 09/20/2016 Active Lumbago with sciatica, right side ICD-9: 724.3 ICD-10: M54.41 01/30/2019 Active Muscle spasm of back ICD- 9: 724.8 ICD-10: M62.830 02/14/2019 Active Sciatica Unknown 01/30/2019 Active Other allergic rhinitis ICD-9: 477.8 ICD-10: J30.89 03/12/2017 Active Cough ICD-9: 786.2 ICD-10: R05 11/05/2016 Active Dysuria ICD-9: 788.1 ICD-10: R30.0 09/17/2016 Active Other acute sinusitis ICD- 9: 461.8 ICD-10: J01.80 03/12/2017 Active Encounter for general adult medical examination with abnormal findings ICD-9: V70.0 ICD-10: Z00.01 03/30/2017 Active Mixed hyperlipidemia ICD- 9: 272.2 ICD-10: E78.2 07/05/2016 Active Encounter for screening mammogram for malignant neoplasm of breast ICD-9: V76.10 ICD-10: Z12.31 07/18/2018 Active Pain in left foot ICD-9: 729.5 ICD-10: M79.672 08/24/2017 Active Otalgia, bilateral ICD- 9: 388.70 ICD-10: H92.03 03/16/2017 Active Cysts of left upper eyelid ICD-9: 374.84 ICD-10: H02.824 08/24/2017 Active Dizziness and giddiness ICD-9: 780.4 ICD-10: R42 04/15/2017 Active Orthostatic hypotension ICD-9: 458.0 ICD-10: I95.1 05/03/2017 Active Gastro-esophageal reflux disease without esophagitis ICD-9: 530.81 ICD-10: K21.9 11/17/2016 Active Other malaise ICD-9: 780.79 ICD-10: R53.81 04/15/2017 Active Acute suppurative otitis media without spontaneous rupture of ear drum, bilateral ICD-9: 381.00 ICD-10: H66.003 03/12/2017 Active Diabetes Unknown 01/20/2017 Active Acute bronchitis due to other specified organisms ICD-9: 466.0 ICD-10: J20.8 11/05/2016 Active Carpal tunnel syndrome, left upper limb ICD-9: 354.0 ICD-10: G56.02 07/05/2016 Active Right upper quadrant pain ICD-9: 789.01 ICD-10: R10.11 07/05/2016 Active Medications Medication Codes Instructions Start Date Stop Date Status Fill Instructions Parafon Forte DSC 500 mg tablet RxNorm: 559488 1 Tablet(s) PO qid prn 02/15/2019 05/15/2019 Active Parafon Forte DSC 500 mg tablet RxNorm: 493327 1 Tablet(s) PO qid prn 02/14/2019 02/13/2019 Inactive Parafon Forte DSC 500 mg tablet RxNorm: 771488 1 Tablet(s) PO qid prn 02/13/2019 02/13/2019 Inactive diclofenac 1 % topical gel RxNorm: 821807 4 Gram(s) TOP QID 01/31/2019 03/01/2019 Active tramadol 50 mg tablet RxNorm: 794542 1 Tablet(s) PO qid prn 01/30/2019 No Stop Date Active Voltaren 1 % topical gel RxNorm: 113449 4 Gram(s) TOP QID 01/30/2019 01/30/2019 Inactive Parafon Forte DSC 500 mg tablet RxNorm: 126108 1 Tablet(s) PO qid prn 01/30/2019 02/12/2019 Inactive diclofenac 1 % topical gel RxNorm: 871251 4 Gram(s) TOP QID 01/30/2019 01/29/2019 Inactive diclofenac 1 % topical gel RxNorm: 003021 4 Gram(s) TOP QID 01/30/2019 01/30/2019 Inactive atorvastatin 10 mg tablet RxNorm: 168717 1 Tablet(s) PO QPM 01/16/2019 01/10/2020 Active hydralazine 10 mg tablet RxNorm: 624071 1 Tablet(s) PO TID PRN 01/16/2019 07/14/2019 Active prn sbp over 150 alprazolam 0.5 mg tablet RxNorm: 868617 1 Tablet(s) PO TID as needed anxiety 01/16/2019 07/14/2019 Active fluticasone propionate 50 mcg/actuation nasal spray,suspension RxNorm: 1983731 2 Bruni daily USE 1 SPRAY NASALLY TWICE A DAY 01/16/2019 01/10/2020 Active hydralazine 10 mg tablet RxNorm: 549621 1 Tablet(s) PO TID PRN 01/16/2019 01/15/2019 Inactive prn sbp over 150 clonidine HCl 0.1 mg tablet RxNorm: 740344 1/2 Tablet(s) PO QHS 01/16/2019 01/16/2019 Inactive cefdinir 300 mg capsule RxNorm: 676309 1 Capsule(s) PO BID 01/09/2019 01/15/2019 Inactive cefdinir 300 mg capsule RxNorm: 732372 1 Capsule(s) PO BID 01/09/2019 01/08/2019 Inactive Zithromax Z-Juan 250 mg tablet RxNorm: 159300 1 Tablet(s) PO UD 01/03/2019 01/07/2019 Inactive zpack as directed Kenalog 40 mg/mL suspension for injection RxNorm: 2293786 Milliliter(s) Inj 01/02/2019 01/02/2019 Inactive Zithromax Z-Juan 250 mg tablet RxNorm: 294862 1 Tablet(s) PO UD 12/30/2018 01/02/2019 Inactive zpack as directed metoprolol tartrate 50 mg tablet RxNorm: 443629 1/2 TABLET(S) PO BID 12/02/2018 No Stop Date Active amlodipine 10 mg tablet RxNorm: 244491 TAKE 1 TABLET DAILY 10/24/2018 No Stop Date Active cefdinir 300 mg capsule RxNorm: 106971 1 Capsule(s) PO BID 10/19/2018 10/22/2018 Inactive Zithromax Z-Juan 250 mg tablet RxNorm: 230878 1 Tablet(s) PO UD 10/19/2018 10/23/2018 Inactive zpack as directed glimepiride 4 mg tablet RxNorm: 501849 Tablet(s) 1 TABLET(S) PO DAILY 10/12/2018 No Stop Date Active cefdinir 300 mg capsule RxNorm: 441014 1 Capsule(s) PO BID 10/12/2018 10/18/2018 Inactive Zithromax Z-Juan 250 mg tablet RxNorm: 319599 1 Tablet(s) PO UD 10/12/2018 10/16/2018 Inactive zpack as directed Tessalon Perles 100 mg capsule RxNorm: 166734 2 Capsule(s) PO TID as needed cough 10/12/2018 10/16/2018 Inactive Kenalog 40 mg/mL suspension for injection RxNorm: 7962535 1 Milliliter(s) Inj 10/12/2018 10/12/2018 Inactive Zithromax Z-Juan 250 mg tablet RxNorm: 834664 1 Tablet(s) PO UD 08/22/2018 08/26/2018 Inactive zpack as directed clonidine HCl 0.1 mg tablet RxNorm: 927751 1 Tablet(s) PO QAM 08/16/2018 01/15/2019 Inactive losartan 100 mg tablet RxNorm: 159172 1 TABLET(S) PO DAILY FOR HIGH BLOOD PRESSURE 08/12/2018 No Stop Date Active alprazolam 0.5 mg tablet RxNorm: 447935 1 Tablet(s) PO TID as needed anxiety 06/30/2018 12/26/2018 Inactive fluticasone 50 mcg/actuation nasal spray,suspension RxNorm: 3177060 USE 1 SPRAY NASALLY TWICE A DAY 05/06/2018 01/15/2019 Inactive clonidine HCl 0.1 mg tablet RxNorm: 145329 1 Tablet(s) PO BID 04/14/2018 08/15/2018 Inactive clonidine HCl 0.1 mg tablet RxNorm: 236329 1 Tablet(s) PO TID 04/12/2018 04/13/2018 Inactive Zithromax Z-Juan 250 mg tablet RxNorm: 076288 1 Tablet(s) PO UD 01/20/2018 08/21/2018 Inactive disregard first rx for 1 - patient needs 3 packs-please dispense generic azithromycin Zithromax Z-Juan 250 mg tablet RxNorm: 690030 1 Tablet(s) PO UD 01/20/2018 01/19/2018 Inactive Zithromax Z-Juan 250 mg tablet RxNorm: 622484 1 Tablet(s) PO UD 01/20/2018 01/19/2018 Inactive disregard first rx for 1 - patient needs 3 packs Zithromax Z-Juan 250 mg tablet RxNorm: 147525 1 Tablet(s) PO UD 01/20/2018 01/19/2018 Inactive atorvastatin 10 mg tablet RxNorm: 402601 1 Tablet(s) PO QPM 12/30/2017 12/24/2018 Inactive atorvastatin 10 mg tablet RxNorm: 156347 1 Tablet(s) PO QPM 12/30/2017 12/29/2017 Inactive clonidine HCl 0.1 mg tablet RxNorm: 275506 1 Tablet(s) PO BID 12/29/2017 04/11/2018 Inactive Lipitor 10 mg tablet RxNorm: 965685 1 Tablet(s) PO QPM 12/29/2017 12/29/2017 Inactive OKAY TO DISPENSE GENERIC metoprolol tartrate 50 mg tablet RxNorm: 120093 1/2 Tablet(s) PO BID 12/29/2017 12/01/2018 Inactive alprazolam 0.5 mg tablet RxNorm: 153263 1 Tablet(s) PO TID as needed anxiety 11/18/2017 05/16/2018 Inactive glimepiride 4 mg tablet RxNorm: 705913 1 TABLET(S) PO DAILY 11/15/2017 10/11/2018 Inactive alprazolam 0.5 mg tablet RxNorm: 471319 1 Tablet(s) PO TID as needed anxiety 09/20/2017 11/17/2017 Inactive Zithromax Z-Juan 250 mg tablet RxNorm: 668156 1 Tablet(s) PO UD 09/20/2017 12/28/2017 Inactive Zithromax Z-Juan 250 mg tablet RxNorm: 491822 1 Tablet(s) PO UD 09/14/2017 09/19/2017 Inactive clonidine HCl 0.1 mg tablet RxNorm: 543522 1/2 Tablet(s) PO BID 08/24/2017 12/28/2017 Inactive amlodipine 10 mg tablet RxNorm: 760863 1 Tablet(s) PO daily 08/24/2017 08/18/2018 Inactive erythromycin 5 mg/gram (0.5 %) eye ointment RxNorm: 555032 1 Gram(s) ophthalmic (eye) QID left eye cyst 08/24/2017 09/06/2017 Inactive losartan 100 mg tablet RxNorm: 769305 1 Tablet(s) PO daily for high blood pressure 08/16/2017 08/10/2018 Inactive metoprolol tartrate 50 mg tablet RxNorm: 847452 1/2 Tablet(s) PO BID 07/26/2017 12/28/2017 Inactive clonidine HCl 0.1 mg tablet RxNorm: 698164 1/2 Tablet(s) PO BID 07/26/2017 08/23/2017 Inactive metoprolol tartrate 50 mg tablet RxNorm: 339777 1 Tablet(s) PO BID 07/21/2017 07/25/2017 Inactive amlodipine 10 mg tablet RxNorm: 035517 1 TABLET(S) PO DAILY 06/29/2017 08/23/2017 Inactive Lipitor 10 mg tablet RxNorm: 280582 1 Tablet(s) PO QPM 05/27/2017 12/28/2017 Inactive OKAY TO DISPENSE GENERIC alprazolam 0.5 mg tablet RxNorm: 978753 1 Tablet(s) PO TID as needed anxiety 05/18/2017 08/15/2017 Inactive hydrochlorothiazide 12.5 mg tablet RxNorm: 773437 1 Tablet(s) PO daily 04/22/2017 05/21/2017 Inactive hydrochlorothiazide 12.5 mg tablet RxNorm: 305978 1 Tablet(s) PO daily 04/22/2017 04/21/2017 Inactive Cipro 500 mg tablet RxNorm: 378072 1 Tablet(s) PO BID 04/16/2017 04/22/2017 Inactive Zofran 4 mg tablet RxNorm: 843014 1 Tablet(s) PO BID as needed nausea and vomitting 04/15/2017 04/19/2017 Inactive Lipitor 10 mg tablet RxNorm: 527236 1 Tablet(s) PO QPM 03/30/2017 05/26/2017 Inactive OKAY TO DISPENSE GENERIC Kenalog 40 mg/mL suspension for injection RxNorm: 4606479 1 Milliliter(s) Inj 03/16/2017 03/16/2017 Inactive doxazosin 4 mg tablet RxNorm: 292682 1.5 Tablet(s) PO BID 03/16/2017 05/02/2017 Inactive prednisone 10 mg tablets in a dose pack RxNorm: 876919 Tablet(s) take dose pack as directed PO take with food 03/16/2017 05/23/2017 Inactive Kenalog 40 mg/mL suspension for injection RxNorm: 4871636 Milliliter(s) Inj 03/12/2017 03/12/2017 Inactive Zithromax Z-Juan 250 mg tablet RxNorm: 705342 1 Tablet(s) PO daily 03/11/2017 03/10/2017 Inactive zpack as directed Zithromax Z-Juan 250 mg tablet RxNorm: 968082 1 Tablet(s) PO daily 03/11/2017 03/15/2017 Inactive zpack as directed doxazosin 4 mg tablet RxNorm: 551864 1.5 Tablet(s) PO BID 02/12/2017 03/15/2017 Inactive fluticasone 50 mcg/actuation nasal spray,suspension RxNorm: 5258036 1 SPRAY NASAL BID 02/05/2017 05/05/2018 Inactive metoprolol tartrate 75 mg tablet RxNorm: 7983691 1 Tablet(s) PO BID 01/29/2017 07/19/2017 Inactive metoprolol tartrate 75 mg tablet RxNorm: 7822820 1 Tablet(s) PO BID 01/29/2017 01/28/2017 Inactive doxazosin 4 mg tablet RxNorm: 402787 1 Tablet(s) PO BID 01/20/2017 02/11/2017 Inactive pantoprazole 40 mg tablet,delayed release RxNorm: 347520 1 Tablet(s) PO daily 12/24/2016 01/19/2017 Inactive pantoprazole 40 mg tablet,delayed release RxNorm: 284974 1 Tablet(s) PO daily 12/24/2016 12/23/2016 Inactive alprazolam 0.5 mg tablet RxNorm: 286041 1 Tablet(s) PO TID as needed anxiety 12/03/2016 04/01/2017 Inactive fluticasone 50 mcg/actuation nasal spray,suspension RxNorm: 8518073 1 Bruni NASAL BID 11/25/2016 12/24/2016 Inactive Dexilant 60 mg capsule, delayed release RxNorm: 851392 1 Capsule(s) PO daily 11/25/2016 11/24/2016 Inactive fluticasone 50 mcg/actuation nasal spray,suspension RxNorm: 8836465 1 Bruni NASAL BID 11/25/2016 11/24/2016 Inactive fluticasone 50 mcg/actuation nasal spray,suspension RxNorm: 1727443 1 Bruni NASAL BID 11/25/2016 11/24/2016 Inactive Dexilant 60 mg capsule, delayed release RxNorm: 275671 1 Capsule(s) PO daily 11/25/2016 12/23/2016 Inactive ProAir RespiClick 90 mcg/actuation breath activated RxNorm: 8870219 1 INH bid and QID as needed 11/19/2016 05/17/2017 Inactive Please send STAT Flonase Allergy Relief 50 mcg/actuation nasal spray,suspension RxNorm: 5746646 1 Bruni NASAL BID 11/19/2016 11/24/2016 Inactive glimepiride 4 mg tablet RxNorm: 657021 1 Tablet(s) PO daily 11/19/2016 11/13/2017 Inactive metoprolol tartrate 50 mg tablet RxNorm: 246338 1 Tablet(s) PO BID 11/19/2016 01/28/2017 Inactive Flonase Allergy Relief 50 mcg/actuation nasal spray,suspension RxNorm: 1047392 1 Bruni NASAL BID 11/17/2016 11/18/2016 Inactive metoprolol tartrate 50 mg tablet RxNorm: 901559 1 Tablet(s) PO BID 11/17/2016 11/18/2016 Inactive ProAir RespiClick 90 mcg/actuation breath activated RxNorm: 6297780 1 INH bid and QID as needed 11/17/2016 11/16/2016 Inactive glimepiride 4 mg tablet RxNorm: 884573 1 Tablet(s) PO daily 11/17/2016 11/18/2016 Inactive ProAir RespiClick 90 mcg/actuation breath activated RxNorm: 1144837 1 INH bid and QID as needed 11/17/2016 11/18/2016 Inactive Please send STAT Kenalog 40 mg/mL suspension for injection RxNorm: 5432927 1 Milliliter(s) Inj 11/05/2016 11/05/2016 Inactive azithromycin 250 mg tablet RxNorm: 269915 Tablet(s) PO 2 tabs on day #1, then daily x 4 days 11/05/2016 12/23/2016 Inactive doxazosin 4 mg tablet RxNorm: 452521 1 Tablet(s) PO QPM 10/02/2016 01/19/2017 Inactive doxazosin 4 mg tablet RxNorm: 024445 1 Tablet(s) PO QPM 09/29/2016 10/01/2016 Inactive doxazosin 4 mg tablet RxNorm: 605590 1 Tablet(s) PO QPM 09/21/2016 09/28/2016 Inactive Cipro 500 mg tablet RxNorm: 675512 1 Tablet(s) PO BID 09/18/2016 09/17/2016 Inactive Cipro 500 mg tablet RxNorm: 321940 1 Tablet(s) PO BID 09/18/2016 09/24/2016 Inactive losartan 100 mg tablet RxNorm: 417141 1 Tablet(s) PO daily for high blood pressure 09/16/2016 09/15/2016 Inactive alprazolam 0.5 mg tablet RxNorm: 636762 1 Tablet(s) PO TID as needed anxiety 09/16/2016 11/14/2016 Inactive losartan 100 mg tablet RxNorm: 928981 1 Tablet(s) PO daily for high blood pressure 09/16/2016 08/15/2017 Inactive amlodipine 10 mg tablet RxNorm: 838902 1 Tablet(s) PO daily 08/03/2016 06/28/2017 Inactive Zyrtec 10 mg tablet RxNorm: 7835368 1 Tablet(s) PO daily 08/03/2016 09/15/2016 Inactive losartan 25 mg tablet RxNorm: 455353 1 Tablet(s) PO daily 07/08/2016 09/15/2016 Inactive Lipitor 10 mg tablet RxNorm: 551797 1 Tablet(s) PO QPM 07/08/2016 07/17/2016 Inactive OKAY TO DISPENSE GENERIC Lipitor 10 mg tablet RxNorm: 464393 1 Tablet(s) PO QPM 07/06/2016 07/07/2016 Inactive OKAY TO DISPENSE GENERIC losartan 25 mg tablet RxNorm: 337378 1 Tablet(s) PO daily 07/06/2016 07/07/2016 Inactive meclizine 25 mg tablet RxNorm: 966637 1 Tablet(s) PO TID as needed No Start Date Active Pazeo 0.7 % eye drops RxNorm: 1253671 Drop(s) ophthalmic (eye) as needed dry eyes No Start Date Active Zithromax Z-Juan 250 mg tablet RxNorm: 487689 1 Tablet(s) PO UD No Start Date 09/13/2017 Inactive glimepiride 4 mg tablet RxNorm: 375171 1 Tablet(s) PO daily No Start Date 11/16/2016 Inactive metoprolol tartrate 100 mg tablet RxNorm: 361497 1 Tablet(s) PO BID No Start Date 07/21/2017 Inactive naproxen 500 mg tablet RxNorm: 952033 1 Tablet(s) PO BID No Start Date 03/23/2017 Inactive amlodipine 5 mg tablet RxNorm: 399648 1 Tablet(s) PO daily No Start Date 08/02/2016 Inactive Parafon Forte DSC 500 mg tablet RxNorm: 293025 1 Tablet(s) PO QID No Start Date 01/29/2019 Inactive metoprolol tartrate 50 mg tablet RxNorm: 391820 1 Tablet(s) PO BID No Start Date 11/16/2016 Inactive Medication Administered Medication Codes Instructions Start Date Status Kenalog 40 mg/mL suspension for injection RxNorm: 1549215 Milliliter 01/02/2019 No longer Active Kenalog 40 mg/mL suspension for injection RxNorm: 3727997 1Milliliter 10/12/2018 No longer Active Kenalog 40 mg/mL suspension for injection RxNorm: 4390644 1Milliliter 03/16/2017 No longer Active Kenalog 40 mg/mL suspension for injection RxNorm: 5149402 Milliliter 03/12/2017 No longer Active Kenalog 40 mg/mL suspension for injection RxNorm: 1054519 1Milliliter 11/05/2016 No longer Active Immunizations Vaccine Codes Date Status Influenza CVX: 141 08/16/2018 completed Influenza CVX: 141 08/10/2017 completed Assessments Condition Codes Effective Dates Type 2 diabetes mellitus without complications ICD-10: E11.9 ICD-9: 250.00 02/28/2019 Pain in right hip ICD-10: M25.551 ICD-9: 719.45 02/28/2019 Essential (primary) hypertension ICD-10: I10 ICD-9: 401.1 02/28/2019 Muscle spasm of back ICD-10: M62.830 ICD-9: 724.8 02/14/2019 Lumbago with sciatica, right side ICD-10: M54.41 ICD-9: 724.3 02/14/2019 Other allergic rhinitis ICD-10: J30.89 ICD-9: 477.8 01/16/2019 Cough ICD-10: R05 ICD-9: 786.2 01/02/2019 Dysuria ICD-10: R30.0 ICD-9: 788.1 12/28/2018 Other acute sinusitis ICD-10: J01.80 ICD-9: 461.8 10/12/2018 Encounter for general adult medical examination with abnormal findings ICD-10: Z00.01 ICD-9: V70.0 09/06/2018 Mixed hyperlipidemia ICD-10: E78.2 ICD-9: 272.2 08/16/2018 Encounter for screening mammogram for malignant neoplasm of breast ICD-10: Z12.31 ICD-9: V76.10 07/18/2018 Pain in left foot ICD-10: M79.672 ICD-9: 729.5 04/12/2018 Otalgia, bilateral ICD-10: H92.03 ICD-9: 388.70 01/20/2018 Cysts of left upper eyelid ICD-10: H02.824 ICD-9: 374.84 08/24/2017 Dizziness and giddiness ICD-10: R42 ICD-9: 780.4 05/27/2017 Orthostatic hypotension ICD-10: I95.1 ICD-9: 458.0 05/03/2017 Other malaise ICD-10: R53.81 ICD-9: 780.79 04/15/2017 Gastro-esophageal reflux disease without esophagitis ICD-10: K21.9 ICD-9: 530.81 04/15/2017 Acute suppurative otitis media without spontaneous rupture of ear drum, bilateral ICD-10: H66.003 ICD-9: 381.00 03/12/2017 Acute bronchitis due to other specified organisms ICD-10: J20.8 ICD-9: 466.0 11/05/2016 Right upper quadrant pain ICD-10: R10.11 ICD-9: 789.01 07/06/2016 Carpal tunnel syndrome, left upper limb ICD-10: G56.02 ICD-9: 354.0 07/06/2016 Reason For Visit Reason For Visit Effective Dates Notes diabetes mellitus 02/28/2019 sciatica 02/14/2019 sciatica 01/30/2019 cough 01/16/2019 sinus congestion 10/12/2018 Annual Medicare Wellness Exam 09/06/2018 foot pain 08/16/2018 left outer aspect of left foot hypertension 04/12/2018 sore throat 01/20/2018 hypertension 12/29/2017 hypertension 08/24/2017 hypertension 07/26/2017 earache 05/27/2017 vertigo 05/03/2017 fatigue 04/15/2017 Annual Medicare Wellness Exam 03/30/2017 earache 03/16/2017 sinus congestion 03/12/2017 hypertension 02/17/2017 hypertension 01/20/2017 cough 11/17/2016 cough 11/05/2016 hypertension 09/21/2016 hypertension 08/03/2016 hypertension 07/06/2016 Results Observation Observation Code Item Item Code Result Date Urine Culture Ucult Complete NO Growth Day 2 12/30/2018 Urine Culture Ucult Preliminary NO Growth Day 1 12/30/2018 Urinalysis Ord28 U-Color Yellow 12/28/2018 Urinalysis Ord28 U-Clarity Clear 12/28/2018 Urinalysis Ord28 U-Gluc Negative 12/28/2018 Urinalysis Ord28 U-Bili Negative 12/28/2018 Urinalysis Ord28 U-Ketone Negative 12/28/2018 Urinalysis Ord28 U-SG 1.015 12/28/2018 Urinalysis Ord28 U-Blood Negative 12/28/2018 Urinalysis Ord28 U-pH 5.5 12/28/2018 Urinalysis Ord28 U-Protein 30 mg/dL 12/28/2018 Urinalysis Ord28 U-Urobilin 0.2 E.U./dL E.U./dL 12/28/2018 Urinalysis Ord28 U-Nitrites Negative 12/28/2018 Urinalysis Ord28 U-Leuk Negative 12/28/2018 Urinalysis Ord28 U-Bact TRACE 12/28/2018 Urinalysis Ord28 U-Squamous Epi None per/HPF 12/28/2018 Urinalysis Ord28 U-Crystal None per/HPF 12/28/2018 Urinalysis Ord28 U-Mucus None 12/28/2018 Urinalysis Ord28 U-Renal tubular epi None 12/28/2018 Urinalysis Ord28 U-RBC None per/HPF 12/28/2018 Urinalysis Ord28 U-Transitional epi None per/HPF 12/28/2018 Urinalysis Ord28 U-WBC None per/HPF 12/28/2018 Urinalysis Ord28 U-Cast None per/lpf 12/28/2018 Urinalysis Ord28 U-VOL VOLUME SUFFICIENT (10mL) 12/28/2018 Urinalysis Ord28 U-Yeast NEGATIVE 12/28/2018 Urinalysis Ord28 U-Com Culture to follow 12/28/2018 Lipid Ord30 CHOL 169 mg/dL 08/18/2018 Lipid Ord30 HDL 54.0 mg/dl 08/18/2018 Lipid Ord30 TRIG 91 mg/dL 08/18/2018 Lipid Ord30 LDL 97 mg/dL 08/18/2018 Lipid Ord30 C/HDL 3.1 Ratio 08/18/2018 Microalbumin [id number] MicroAlb 7.5 mg/dL 08/18/2018 Cbc With Differential Ord2 WBC 5.87 K/ul 08/18/2018 Cbc With Differential Ord2 RBC 4.50 M/ul 08/18/2018 Cbc With Differential Ord2 HGB 13.3 g/dl 08/18/2018 Cbc With Differential Ord2 HCT 39.0 % 08/18/2018 Cbc With Differential Ord2 Neut% 55.5 % 08/18/2018 Cbc With Differential Ord2 MCV 86.7 fl 08/18/2018 Cbc With Differential Ord2 Lymph% 28.8 % 08/18/2018 Cbc With Differential Ord2 MCH 29.6 pg 08/18/2018 Cbc With Differential Ord2 [place]% 10.6 % 08/18/2018 Cbc With Differential Ord2 MCHC 34.1 pg 08/18/2018 Cbc With Differential Ord2 Eos% 4.6 % 08/18/2018 Cbc With Differential Ord2 PLT 244 K/ul 08/18/2018 Cbc With Differential Ord2 Baso% 0.5 % 08/18/2018 Cbc With Differential Ord2 RDW 13.9 % 08/18/2018 Cbc With Differential Ord2 Neut ABS# 3.26 K/ul 08/18/2018 Cbc With Differential Ord2 Lymph ABS# 1.69 K/ul 08/18/2018 Cbc With Differential Ord2 [place] ABS# 0.6 K/ul 08/18/2018 Cbc With Differential Ord2 Eos ABS# 0.3 K/ul 08/18/2018 Cbc With Differential Ord2 Baso ABS# 0.0 K/ul 08/18/2018 Comp Metabolic Zna756 NA 137 mEq/L 08/18/2018 Comp Metabolic Avo771 K 3.8 mEq/L 08/18/2018 Comp Metabolic Qvv419 CL 103 mEq/L 08/18/2018 Comp Metabolic Gue491 CO2 26.0 mEq/L 08/18/2018 Comp Metabolic Kzs773 ANION GAP 12 08/18/2018 Comp Metabolic Yam018 GLUCOSE 110 mg/dL 08/18/2018 Comp Metabolic Aom942 Creat 1.2 mg/dL 08/18/2018 Comp Metabolic Zzp305 eGFR 47 ml/min/1.73m2 08/18/2018 Comp Metabolic Vyx188 BUN 25 mg/dL 08/18/2018 Comp Metabolic Ukf231 B/C Ratio 21.0 Ratio 08/18/2018 Comp Metabolic Ckf005 CALCIUM 9.4 mg/dL 08/18/2018 Comp Metabolic Tyv159 ALK PHOS 99 U/L 08/18/2018 Comp Metabolic Soc624 AST(SGOT) 31 U/L 08/18/2018 Comp Metabolic Tug072 ALT(SGPT) 27 U/L 08/18/2018 Comp Metabolic Htw328 BILI T 0.7 mg/dL 08/18/2018 Comp Metabolic Poi630 ALBUMIN 4.2 g/dL 08/18/2018 Comp Metabolic Vxg609 TPRO 6.7 g/dL 08/18/2018 Comp Metabolic Evy335 GLOB 2.5 g/dL 08/18/2018 Comp Metabolic Wng996 A/G Ratio 1.7 Ratio 08/18/2018 Comp Metabolic Awu916 Osmo 279 mOsmo 08/18/2018 %Hba1C Rqg653 % HbA1c 14327- 6 6.1 % 08/18/2018 %Hba1C Ahl610 Gluc Ave 128 mg/dL 08/18/2018 Tsh Ord6 TSH (3rd IS) 3.93 uIU/mL 08/18/2018 Lipid Ord30 CHOL 146 mg/dL 04/15/2018 Lipid Ord30 HDL 62.0 mg/dl 04/15/2018 Lipid Ord30 TRIG 88 mg/dL 04/15/2018 Lipid Ord30 LDL 66 mg/dL 04/15/2018 Lipid Ord30 C/HDL 2.4 Ratio 04/15/2018 %Hba1C Kwb227 % HbA1c 97536- 6 6.3 % 04/15/2018 %Hba1C Ktx141 Gluc Ave 134 mg/dL 04/15/2018 Cbc With Differential Ord2 WBC 7.34 K/ul 04/15/2018 Cbc With Differential Ord2 RBC 4.40 M/ul 04/15/2018 Cbc With Differential Ord2 HGB 13.3 g/dl 04/15/2018 Cbc With Differential Ord2 HCT 38.6 % 04/15/2018 Cbc With Differential Ord2 Neut% 62.2 % 04/15/2018 Cbc With Differential Ord2 MCV 87.7 fl 04/15/2018 Cbc With Differential Ord2 Lymph% 28.6 % 04/15/2018 Cbc With Differential Ord2 MCH 30.2 pg 04/15/2018 Cbc With Differential Ord2 [place]% 6.8 % 04/15/2018 Cbc With Differential Ord2 MCHC 34.5 pg 04/15/2018 Cbc With Differential Ord2 Eos% 2.3 % 04/15/2018 Cbc With Differential Ord2 PLT 230 K/ul 04/15/2018 Cbc With Differential Ord2 Baso% 0.1 % 04/15/2018 Cbc With Differential Ord2 RDW 12.8 % 04/15/2018 Cbc With Differential Ord2 Neut ABS# 4.56 K/ul 04/15/2018 Cbc With Differential Ord2 Lymph ABS# 2.10 K/ul 04/15/2018 Cbc With Differential Ord2 [place] ABS# 0.5 K/ul 04/15/2018 Cbc With Differential Ord2 Eos ABS# 0.2 K/ul 04/15/2018 Cbc With Differential Ord2 Baso ABS# 0.0 K/ul 04/15/2018 Comp Metabolic Qlz859 NA 140 mEq/L 04/15/2018 Comp Metabolic Etv984 K 4.3 mEq/L 04/15/2018 Comp Metabolic Gzp443 CL 106 mEq/L 04/15/2018 Comp Metabolic Uhk193 CO2 23.0 mEq/L 04/15/2018 Comp Metabolic Ymp489 ANION GAP 15 04/15/2018 Comp Metabolic Acr288 GLUCOSE 90 mg/dL 04/15/2018 Comp Metabolic Rmm418 Creat 1.2 mg/dL 04/15/2018 Comp Metabolic Wcc321 eGFR 45 ml/min/1.73m2 04/15/2018 Comp Metabolic Ujn968 BUN 28 mg/dL 04/15/2018 Comp Metabolic Jbb481 B/C Ratio 22.8 Ratio 04/15/2018 Comp Metabolic Rjw895 CALCIUM 9.5 mg/dL 04/15/2018 Comp Metabolic Ahx658 ALK PHOS 95 U/L 04/15/2018 Comp Metabolic Rps758 AST(SGOT) 20 U/L 04/15/2018 Comp Metabolic Ush152 ALT(SGPT) 13 U/L 04/15/2018 Comp Metabolic Qih485 BILI T 0.5 mg/dL 04/15/2018 Comp Metabolic Ojv297 ALBUMIN 4.1 g/dL 04/15/2018 Comp Metabolic Ssh848 TPRO 6.6 g/dL 04/15/2018 Comp Metabolic Iwz113 GLOB 2.5 g/dL 04/15/2018 Comp Metabolic Bqd515 A/G Ratio 1.6 Ratio 04/15/2018 Comp Metabolic Akd739 Osmo 284 mOsmo 04/15/2018 Comp Metabolic Jlj683 NA 137 mEq/L 02/04/2018 Comp Metabolic Yhv499 K 4.0 mEq/L 02/04/2018 Comp Metabolic Jds277 CL 104 mEq/L 02/04/2018 Comp Metabolic Vfq156 CO2 27.0 mEq/L 02/04/2018 Comp Metabolic Mjf178 ANION GAP 10 02/04/2018 Comp Metabolic Yxq272 GLUCOSE 212 mg/dL 02/04/2018 Comp Metabolic Bun406 Creat 1.2 mg/dL 02/04/2018 Comp Metabolic Qhe186 eGFR 47 ml/min/1.73m2 02/04/2018 Comp Metabolic Vyi554 BUN 20 mg/dL 02/04/2018 Comp Metabolic Nhz716 B/C Ratio 16.8 Ratio 02/04/2018 Comp Metabolic Tsv171 CALCIUM 8.9 mg/dL 02/04/2018 Comp Metabolic Rxg678 ALK PHOS 107 U/L 02/04/2018 Comp Metabolic Gyj900 AST(SGOT) 17 U/L 02/04/2018 Comp Metabolic Znw403 ALT(SGPT) 11 U/L 02/04/2018 Comp Metabolic Sbk991 BILI T 0.4 mg/dL 02/04/2018 Comp Metabolic Fhx185 ALBUMIN 3.8 g/dL 02/04/2018 Comp Metabolic Wkt749 TPRO 6.2 g/dL 02/04/2018 Comp Metabolic Mcn737 GLOB 2.4 g/dL 02/04/2018 Comp Metabolic Zjt535 A/G Ratio 1.6 Ratio 02/04/2018 Comp Metabolic Hae598 Osmo 283 mOsmo 02/04/2018 %Hba1C Qns086 % HbA1c 95398- 6 6.3 % 12/30/2017 %Hba1C Qfy167 Gluc Ave 134 mg/dL 12/30/2017 Comp Metabolic Gux521 NA 142 mEq/L 12/30/2017 Comp Metabolic Ljo525 K 4.4 mEq/L 12/30/2017 Comp Metabolic Ebv966 CL 103 mEq/L 12/30/2017 Comp Metabolic Dqn777 CO2 31.0 mEq/L 12/30/2017 Comp Metabolic Clr481 ANION GAP 12 12/30/2017 Comp Metabolic Zyr385 GLUCOSE 119 mg/dL 12/30/2017 Comp Metabolic Edh595 Creat 1.4 mg/dL 12/30/2017 Comp Metabolic Nxq147 eGFR 41 ml/min/1.73m2 12/30/2017 Comp Metabolic Mkh825 BUN 27 mg/dL 12/30/2017 Comp Metabolic Hgh426 B/C Ratio 20.0 Ratio 12/30/2017 Comp Metabolic Ips016 CALCIUM 9.9 mg/dL 12/30/2017 Comp Metabolic Uyh771 ALK PHOS 106 U/L 12/30/2017 Comp Metabolic Otk935 AST(SGOT) 20 U/L 12/30/2017 Comp Metabolic Nai906 ALT(SGPT) 13 U/L 12/30/2017 Comp Metabolic Krn275 BILI T 0.7 mg/dL 12/30/2017 Comp Metabolic Zxf702 ALBUMIN 4.2 g/dL 12/30/2017 Comp Metabolic Eij508 TPRO 6.7 g/dL 12/30/2017 Comp Metabolic Mrz380 GLOB 2.6 g/dL 12/30/2017 Comp Metabolic Wnh963 A/G Ratio 1.6 Ratio 12/30/2017 Comp Metabolic Dwt283 Osmo 289 mOsmo 12/30/2017 Lipid Ord30 CHOL 167 mg/dL 12/30/2017 Lipid Ord30 HDL 63.0 mg/dl 12/30/2017 Lipid Ord30 TRIG 89 mg/dL 12/30/2017 Lipid Ord30 LDL 86 mg/dL 12/30/2017 Lipid Ord30 C/HDL 2.7 Ratio 12/30/2017 Urine Culture Ucult Preliminary NO Growth Day 1 04/17/2017 Urine Culture Ucult Complete NO Growth Day 2 04/17/2017 Comp Metabolic Faq777 NA 143 mEq/L 04/15/2017 Comp Metabolic Jws205 K 4.6 mEq/L 04/15/2017 Comp Metabolic Bgg605 CL 110 mEq/L 04/15/2017 Comp Metabolic Dre337 CO2 30.0 mEq/L 04/15/2017 Comp Metabolic Inp585 ANION GAP 8 04/15/2017 Comp Metabolic Odf005 GLUCOSE 159 mg/dL 04/15/2017 Comp Metabolic Qah088 Creat 1.1 mg/dL 04/15/2017 Comp Metabolic Ypl293 eGFR 54 ml/min/1.73m2 04/15/2017 Comp Metabolic Aje243 BUN 27 mg/dL 04/15/2017 Comp Metabolic Nuw129 B/C Ratio 25.7 Ratio 04/15/2017 Comp Metabolic Enk973 CALCIUM 9.4 mg/dL 04/15/2017 Comp Metabolic Rcw645 ALK PHOS 93 U/L 04/15/2017 Comp Metabolic Yoj535 AST(SGOT) 19 U/L 04/15/2017 Comp Metabolic Uio271 ALT(SGPT) 18 U/L 04/15/2017 Comp Metabolic Xwd431 BILI T 0.6 mg/dL 04/15/2017 Comp Metabolic Kvl039 ALBUMIN 3.9 g/dL 04/15/2017 Comp Metabolic Vvp558 TPRO 6.5 g/dL 04/15/2017 Comp Metabolic Xro605 GLOB 2.6 g/dL 04/15/2017 Comp Metabolic Hbi648 A/G Ratio 1.5 Ratio 04/15/2017 Comp Metabolic Vpy472 Osmo 293 mOsmo 04/15/2017 Tsh Ord6 hTSH II 2.05 uIU/mL 04/15/2017 %Hba1C Evt138 % HbA1c 29036- 6 6.3 % 04/15/2017 %Hba1C Npr106 Gluc Ave 134 mg/dL 04/15/2017 Cbc With Differential Ord2 WBC 7.06 K/ul 04/15/2017 Cbc With Differential Ord2 RBC 4.86 M/ul 04/15/2017 Cbc With Differential Ord2 HGB 14.1 g/dl 04/15/2017 Cbc With Differential Ord2 HCT 42.1 % 04/15/2017 Cbc With Differential Ord2 Neut% 68.5 % 04/15/2017 Cbc With Differential Ord2 MCV 86.6 fl 04/15/2017 Cbc With Differential Ord2 Lymph% 22.4 % 04/15/2017 Cbc With Differential Ord2 MCH 29.0 pg 04/15/2017 Cbc With Differential Ord2 [place]% 6.9 % 04/15/2017 Cbc With Differential Ord2 MCHC 33.5 pg 04/15/2017 Cbc With Differential Ord2 Eos% 2.1 % 04/15/2017 Cbc With Differential Ord2 PLT 218 K/ul 04/15/2017 Cbc With Differential Ord2 Baso% 0.1 % 04/15/2017 Cbc With Differential Ord2 RDW 14.4 % 04/15/2017 Cbc With Differential Ord2 Neut ABS# 4.83 K/ul 04/15/2017 Cbc With Differential Ord2 Lymph ABS# 1.58 K/ul 04/15/2017 Cbc With Differential Ord2 [place] ABS# 0.5 K/ul 04/15/2017 Cbc With Differential Ord2 Eos ABS# 0.2 K/ul 04/15/2017 Cbc With Differential Ord2 Baso ABS# 0.0 K/ul 04/15/2017 Urinalysis Ord28 U-Color Yellow 04/15/2017 Urinalysis Ord28 U-Clarity Clear 04/15/2017 Urinalysis Ord28 U-Gluc Negative 04/15/2017 Urinalysis Ord28 U-Bili Negative 04/15/2017 Urinalysis Ord28 U-Ketone Negative 04/15/2017 Urinalysis Ord28 U-SG 1.015 04/15/2017 Urinalysis Ord28 U-Blood Trace-lysed 04/15/2017 Urinalysis Ord28 U-pH 5.0 04/15/2017 Urinalysis Ord28 U-Protein 100 mg/dL 04/15/2017 Urinalysis Ord28 U-Urobilin 0.2 E.U./dL E.U./dL 04/15/2017 Urinalysis Ord28 U-Nitrites Negative 04/15/2017 Urinalysis Ord28 U-Leuk Negative 04/15/2017 Urinalysis Ord28 U-Bact None 04/15/2017 Urinalysis Ord28 U-Squamous Epi None per/HPF 04/15/2017 Urinalysis Ord28 U-Crystal None per/HPF 04/15/2017 Urinalysis Ord28 U-Mucus None 04/15/2017 Urinalysis Ord28 U-Renal tubular epi None 04/15/2017 Urinalysis Ord28 U-RBC None per/HPF 04/15/2017 Urinalysis Ord28 U-Transitional epi None per/HPF 04/15/2017 Urinalysis Ord28 U-WBC None per/HPF 04/15/2017 Urinalysis Ord28 U-Cast None per/HPF 04/15/2017 Urinalysis Ord28 U-VOL VOLUME SUFFICIENT (10mL) 04/15/2017 Urinalysis Ord28 U-Yeast NEGATIVE 04/15/2017 Urinalysis Ord28 U-Com Culture to follow 04/15/2017 %Hba1C Yav934 % HbA1c 93424- 6 5.8 % 01/07/2017 %Hba1C Dgk439 Gluc Ave 120 mg/dL 01/07/2017 Urine Culture Ucult Preliminary NO Growth Day 1 09/21/2016 Urine Culture Ucult Complete NO Growth Day 2 09/21/2016 %Hba1C Uwn504 % HbA1c 59646- 6 6.0 % 09/17/2016 %Hba1C Zjp076 Gluc Ave 126 mg/dL 09/17/2016 Comp Metabolic Ypc411 NA 140 mEq/L 09/17/2016 Comp Metabolic Tnu038 K 4.1 mEq/L 09/17/2016 Comp Metabolic Vhj069 CL 105 mEq/L 09/17/2016 Comp Metabolic Ykb125 CO2 29.0 mEq/L 09/17/2016 Comp Metabolic Wjb712 ANION GAP 10 09/17/2016 Comp Metabolic Xsm816 GLUCOSE 89 mg/dL 09/17/2016 Comp Metabolic Xmq318 Creat 0.9 mg/dL 09/17/2016 Comp Metabolic Izr575 eGFR 65 ml/min/1.73m2 09/17/2016 Comp Metabolic Bdz113 BUN 20 mg/dL 09/17/2016 Comp Metabolic Niv196 B/C Ratio 22.2 Ratio 09/17/2016 Comp Metabolic Jwz197 CALCIUM 9.3 mg/dL 09/17/2016 Comp Metabolic Cdt145 ALK PHOS 107 U/L 09/17/2016 Comp Metabolic Edk699 AST(SGOT) 22 U/L 09/17/2016 Comp Metabolic Lvx052 ALT(SGPT) 15 U/L 09/17/2016 Comp Metabolic Ros139 BILI T 0.7 mg/dL 09/17/2016 Comp Metabolic Ree727 ALBUMIN 4.0 g/dL 09/17/2016 Comp Metabolic Kex649 TPRO 6.8 g/dL 09/17/2016 Comp Metabolic Irh346 GLOB 2.8 g/dL 09/17/2016 Comp Metabolic Aje988 A/G Ratio 1.4 Ratio 09/17/2016 Comp Metabolic Kxo415 Osmo 281 mOsmo 09/17/2016 Microalbumin Tuk644 MicroAlb 44.3 mg/dL 09/17/2016 Tsh Ord6 hTSH II 4.66 uIU/mL 09/17/2016 Cbc With Differential Ord2 WBC 6.95 K/ul 09/17/2016 Cbc With Differential Ord2 RBC 4.65 M/ul 09/17/2016 Cbc With Differential Ord2 HGB 13.5 g/dl 09/17/2016 Cbc With Differential Ord2 HCT 40.5 % 09/17/2016 Cbc With Differential Ord2 Neut% 62.4 % 09/17/2016 Cbc With Differential Ord2 MCV 87.1 fl 09/17/2016 Cbc With Differential Ord2 Lymph% 25.6 % 09/17/2016 Cbc With Differential Ord2 MCH 29.0 pg 09/17/2016 Cbc With Differential Ord2 [place]% 8.1 % 09/17/2016 Cbc With Differential Ord2 MCHC 33.3 pg 09/17/2016 Cbc With Differential Ord2 Eos% 3.5 % 09/17/2016 Cbc With Differential Ord2 PLT 242 K/ul 09/17/2016 Cbc With Differential Ord2 Baso% 0.4 % 09/17/2016 Cbc With Differential Ord2 RDW 13.4 % 09/17/2016 Cbc With Differential Ord2 Neut ABS# 4.34 K/ul 09/17/2016 Cbc With Differential Ord2 Lymph ABS# 1.78 K/ul 09/17/2016 Cbc With Differential Ord2 [place] ABS# 0.6 K/ul 09/17/2016 Cbc With Differential Ord2 Eos ABS# 0.2 K/ul 09/17/2016 Cbc With Differential Ord2 Baso ABS# 0.0 K/ul 09/17/2016 Lipid Ord30 CHOL 136 mg/dL 09/17/2016 Lipid Ord30 HDL 50.0 mg/dl 09/17/2016 Lipid Ord30 TRIG 70 mg/dL 09/17/2016 Lipid Ord30 LDL 72 mg/dL 09/17/2016 Lipid Ord30 C/HDL 2.7 Ratio 09/17/2016 Review of Systems System Result Effective Dates Constitutional No recent illness 02/28/2019 Constitutional No chills 02/28/2019 Constitutional fatigue 02/28/2019 Constitutional No fever 02/28/2019 Constitutional No insomnia 02/28/2019 Constitutional No malaise 02/28/2019 Eyes No eye discharge 02/28/2019 Ears/Nose/Throat/Neck No dental pain 02/28/2019 Ears/Nose/Throat/Neck No dizziness 02/28/2019 Ears/Nose/Throat/Neck No dysphagia 02/28/2019 Ears/Nose/Throat/Neck No headache 02/28/2019 Ears/Nose/Throat/Neck No hearing loss 02/28/2019 Ears/Nose/Throat/Neck No nasal allergies 02/28/2019 Ears/Nose/Throat/Neck No postnasal drip 02/28/2019 Ears/Nose/Throat/Neck No sinus congestion 02/28/2019 Ears/Nose/Throat/Neck No sore throat 02/28/2019 Cardiovascular No chest pain/pressure 02/28/2019 Cardiovascular No dyspnea 02/28/2019 Cardiovascular No edema 02/28/2019 Cardiovascular No exercise intolerance 02/28/2019 Cardiovascular fatigue 02/28/2019 Cardiovascular hypertension 02/28/2019 Cardiovascular No near-syncope/dizziness 02/28/2019 Respiratory No chest tightness 02/28/2019 Respiratory No cough 02/28/2019 Respiratory No dyspnea 02/28/2019 Respiratory No pedal edema 02/28/2019 Gastrointestinal No abdominal pain 02/28/2019 Gastrointestinal No constipation 02/28/2019 Gastrointestinal No diarrhea 02/28/2019 Gastrointestinal No gastroesophageal reflux 02/28/2019 Genitourinary/Nephrology No dysuria 02/28/2019 Musculoskeletal stiffness 02/28/2019 Musculoskeletal No swelling 02/28/2019 Musculoskeletal back pain 02/28/2019 Musculoskeletal joint complaint 02/28/2019 Musculoskeletal No muscle weakness 02/28/2019 Musculoskeletal No myalgias 02/28/2019 Musculoskeletal sciatica 02/28/2019 Dermatologic No sores 02/28/2019 Neurologic No dizziness 02/28/2019 Neurologic No headache 02/28/2019 Neurologic No neck pain 02/28/2019 Neurologic No syncope 02/28/2019 Psychiatric No anxiety 02/28/2019 Psychiatric No depression 02/28/2019 Constitutional No recent illness 02/14/2019 Constitutional No chills 02/14/2019 Constitutional fatigue 02/14/2019 Constitutional No fever 02/14/2019 Constitutional No insomnia 02/14/2019 Constitutional No malaise 02/14/2019 Eyes No eye discharge 02/14/2019 Ears/Nose/Throat/Neck No dental pain 02/14/2019 Ears/Nose/Throat/Neck No dizziness 02/14/2019 Ears/Nose/Throat/Neck No dysphagia 02/14/2019 Ears/Nose/Throat/Neck No headache 02/14/2019 Ears/Nose/Throat/Neck No hearing loss 02/14/2019 Ears/Nose/Throat/Neck No nasal allergies 02/14/2019 Ears/Nose/Throat/Neck No postnasal drip 02/14/2019 Ears/Nose/Throat/Neck No sinus congestion 02/14/2019 Ears/Nose/Throat/Neck No sore throat 02/14/2019 Cardiovascular No chest pain/pressure 02/14/2019 Cardiovascular No dyspnea 02/14/2019 Cardiovascular No edema 02/14/2019 Cardiovascular No exercise intolerance 02/14/2019 Cardiovascular fatigue 02/14/2019 Cardiovascular hypertension 02/14/2019 Cardiovascular No near-syncope/dizziness 02/14/2019 Respiratory No chest tightness 02/14/2019 Respiratory No cough 02/14/2019 Respiratory No dyspnea 02/14/2019 Respiratory No pedal edema 02/14/2019 Gastrointestinal No abdominal pain 02/14/2019 Gastrointestinal No constipation 02/14/2019 Gastrointestinal No diarrhea 02/14/2019 Gastrointestinal No gastroesophageal reflux 02/14/2019 Genitourinary/Nephrology No dysuria 02/14/2019 Musculoskeletal stiffness 02/14/2019 Musculoskeletal No swelling 02/14/2019 Musculoskeletal back pain 02/14/2019 Musculoskeletal joint complaint 02/14/2019 Musculoskeletal No muscle weakness 02/14/2019 Musculoskeletal No myalgias 02/14/2019 Musculoskeletal sciatica 02/14/2019 Dermatologic No sores 02/14/2019 Neurologic No dizziness 02/14/2019 Neurologic No headache 02/14/2019 Neurologic No neck pain 02/14/2019 Neurologic No syncope 02/14/2019 Psychiatric No anxiety 02/14/2019 Psychiatric No depression 02/14/2019 Constitutional No recent illness 01/30/2019 Constitutional No chills 01/30/2019 Constitutional fatigue 01/30/2019 Constitutional No fever 01/30/2019 Constitutional No insomnia 01/30/2019 Constitutional No malaise 01/30/2019 Ears/Nose/Throat/Neck No dental pain 01/30/2019 Ears/Nose/Throat/Neck No dizziness 01/30/2019 Ears/Nose/Throat/Neck No dysphagia 01/30/2019 Ears/Nose/Throat/Neck No headache 01/30/2019 Ears/Nose/Throat/Neck No hearing loss 01/30/2019 Ears/Nose/Throat/Neck No nasal allergies 01/30/2019 Ears/Nose/Throat/Neck No sore throat 01/30/2019 Ears/Nose/Throat/Neck No postnasal drip 01/30/2019 Ears/Nose/Throat/Neck No sinus congestion 01/30/2019 Cardiovascular No chest pain/pressure 01/30/2019 Cardiovascular No dyspnea 01/30/2019 Cardiovascular No edema 01/30/2019 Cardiovascular No exercise intolerance 01/30/2019 Cardiovascular fatigue 01/30/2019 Cardiovascular hypertension 01/30/2019 Cardiovascular No near-syncope/dizziness 01/30/2019 Respiratory No chest tightness 01/30/2019 Respiratory No cough 01/30/2019 Respiratory No dyspnea 01/30/2019 Respiratory No pedal edema 01/30/2019 Gastrointestinal No abdominal pain 01/30/2019 Gastrointestinal No constipation 01/30/2019 Gastrointestinal No diarrhea 01/30/2019 Gastrointestinal No gastroesophageal reflux 01/30/2019 Musculoskeletal stiffness 01/30/2019 Musculoskeletal No swelling 01/30/2019 Musculoskeletal joint complaint 01/30/2019 Musculoskeletal No muscle weakness 01/30/2019 Musculoskeletal No myalgias 01/30/2019 Dermatologic No sores 01/30/2019 Neurologic No dizziness 01/30/2019 Neurologic No headache 01/30/2019 Neurologic No neck pain 01/30/2019 Neurologic No syncope 01/30/2019 Psychiatric No anxiety 01/30/2019 Psychiatric No depression 01/30/2019 Musculoskeletal sciatica 01/30/2019 Musculoskeletal back pain 01/30/2019 Genitourinary/Nephrology No dysuria 01/30/2019 Eyes No eye discharge 01/30/2019 Constitutional recent illness 01/16/2019 Constitutional No chills 01/16/2019 Constitutional fatigue 01/16/2019 Constitutional No fever 01/16/2019 Constitutional No insomnia 01/16/2019 Constitutional No malaise 01/16/2019 Ears/Nose/Throat/Neck No dental pain 01/16/2019 Ears/Nose/Throat/Neck No dizziness 01/16/2019 Ears/Nose/Throat/Neck No dysphagia 01/16/2019 Ears/Nose/Throat/Neck No headache 01/16/2019 Ears/Nose/Throat/Neck No hearing loss 01/16/2019 Ears/Nose/Throat/Neck nasal allergies 01/16/2019 Ears/Nose/Throat/Neck No sore throat 01/16/2019 Ears/Nose/Throat/Neck No postnasal drip 01/16/2019 Ears/Nose/Throat/Neck sinus congestion 01/16/2019 Cardiovascular No chest pain/pressure 01/16/2019 Cardiovascular No dyspnea 01/16/2019 Cardiovascular No edema 01/16/2019 Cardiovascular No exercise intolerance 01/16/2019 Cardiovascular fatigue 01/16/2019 Cardiovascular hypertension 01/16/2019 Cardiovascular No near-syncope/dizziness 01/16/2019 Respiratory No chest tightness 01/16/2019 Respiratory No cough 01/16/2019 Respiratory No dyspnea 01/16/2019 Respiratory No pedal edema 01/16/2019 Gastrointestinal No abdominal pain 01/16/2019 Gastrointestinal No constipation 01/16/2019 Gastrointestinal No diarrhea 01/16/2019 Gastrointestinal No gastroesophageal reflux 01/16/2019 Musculoskeletal stiffness 01/16/2019 Musculoskeletal No swelling 01/16/2019 Musculoskeletal No muscle weakness 01/16/2019 Musculoskeletal No myalgias 01/16/2019 Dermatologic No sores 01/16/2019 Neurologic No dizziness 01/16/2019 Neurologic No headache 01/16/2019 Neurologic No neck pain 01/16/2019 Neurologic No syncope 01/16/2019 Psychiatric No anxiety 01/16/2019 Psychiatric No depression 01/16/2019 Constitutional No anorexia 01/16/2019 Constitutional No night sweats 01/16/2019 Eyes No eye erythema 01/16/2019 Eyes No eye discharge 01/16/2019 Ears/Nose/Throat/Neck nasal discharge 01/16/2019 Ears/Nose/Throat/Neck otalgia 01/16/2019 Constitutional recent illness 10/12/2018 Constitutional No chills 10/12/2018 Constitutional No diaphoresis 10/12/2018 Constitutional No fever 10/12/2018 Eyes No eye erythema 10/12/2018 Ears/Nose/Throat/Neck nasal allergies 10/12/2018 Ears/Nose/Throat/Neck nasal discharge 10/12/2018 Ears/Nose/Throat/Neck postnasal drip 10/12/2018 Ears/Nose/Throat/Neck sinus congestion 10/12/2018 Ears/Nose/Throat/Neck No sore throat 10/12/2018 Cardiovascular No chest pain/pressure 10/12/2018 Cardiovascular No dyspnea 10/12/2018 Respiratory No chest congestion 10/12/2018 Respiratory cough 10/12/2018 Respiratory No dyspnea 10/12/2018 Gastrointestinal No abdominal pain 10/12/2018 Gastrointestinal No constipation 10/12/2018 Gastrointestinal No diarrhea 10/12/2018 Gastrointestinal No nausea 10/12/2018 Gastrointestinal No vomiting 10/12/2018 Dermatologic No rash 10/12/2018 Neurologic No alteration of consciousness 10/12/2018 Neurologic No mental status change 10/12/2018 Constitutional No recent illness 09/06/2018 Constitutional No chills 09/06/2018 Constitutional fatigue 09/06/2018 Constitutional No fever 09/06/2018 Constitutional No insomnia 09/06/2018 Constitutional No malaise 09/06/2018 Ears/Nose/Throat/Neck No dizziness 09/06/2018 Ears/Nose/Throat/Neck nasal allergies 09/06/2018 Cardiovascular No chest pain/pressure 09/06/2018 Cardiovascular No dyspnea 09/06/2018 Cardiovascular No edema 09/06/2018 Cardiovascular No exercise intolerance 09/06/2018 Cardiovascular fatigue 09/06/2018 Cardiovascular hypertension 09/06/2018 Cardiovascular No near-syncope/dizziness 09/06/2018 Respiratory No chest tightness 09/06/2018 Respiratory No cough 09/06/2018 Respiratory No dyspnea 09/06/2018 Respiratory No pedal edema 09/06/2018 Gastrointestinal No abdominal pain 09/06/2018 Gastrointestinal No constipation 09/06/2018 Gastrointestinal No diarrhea 09/06/2018 Gastrointestinal No gastroesophageal reflux 09/06/2018 Musculoskeletal stiffness 09/06/2018 Musculoskeletal No swelling 09/06/2018 Musculoskeletal joint complaint 09/06/2018 Musculoskeletal No muscle weakness 09/06/2018 Musculoskeletal No myalgias 09/06/2018 Dermatologic No sores 09/06/2018 Neurologic No dizziness 09/06/2018 Neurologic No headache 09/06/2018 Neurologic No neck pain 09/06/2018 Neurologic No syncope 09/06/2018 Psychiatric No anxiety 09/06/2018 Psychiatric No depression 09/06/2018 Constitutional No anorexia 09/06/2018 Constitutional No night sweats 09/06/2018 Constitutional No diaphoresis 09/06/2018 Eyes No eye discharge 09/06/2018 Eyes No eye erythema 09/06/2018 Ears/Nose/Throat/Neck otalgia 09/06/2018 Constitutional No recent illness 08/16/2018 Constitutional No chills 08/16/2018 Constitutional fatigue 08/16/2018 Constitutional No fever 08/16/2018 Constitutional No insomnia 08/16/2018 Constitutional No malaise 08/16/2018 Ears/Nose/Throat/Neck No dental pain 08/16/2018 Ears/Nose/Throat/Neck No dizziness 08/16/2018 Ears/Nose/Throat/Neck No dysphagia 08/16/2018 Ears/Nose/Throat/Neck No headache 08/16/2018 Ears/Nose/Throat/Neck No hearing loss 08/16/2018 Ears/Nose/Throat/Neck No nasal allergies 08/16/2018 Ears/Nose/Throat/Neck No sore throat 08/16/2018 Ears/Nose/Throat/Neck No postnasal drip 08/16/2018 Ears/Nose/Throat/Neck No sinus congestion 08/16/2018 Cardiovascular No chest pain/pressure 08/16/2018 Cardiovascular No dyspnea 08/16/2018 Cardiovascular No edema 08/16/2018 Cardiovascular No exercise intolerance 08/16/2018 Cardiovascular fatigue 08/16/2018 Cardiovascular hypertension 08/16/2018 Cardiovascular No near-syncope/dizziness 08/16/2018 Respiratory No chest tightness 08/16/2018 Respiratory No cough 08/16/2018 Respiratory No dyspnea 08/16/2018 Respiratory No pedal edema 08/16/2018 Gastrointestinal No abdominal pain 08/16/2018 Gastrointestinal No constipation 08/16/2018 Gastrointestinal No diarrhea 08/16/2018 Gastrointestinal No gastroesophageal reflux 08/16/2018 Musculoskeletal stiffness 08/16/2018 Musculoskeletal No swelling 08/16/2018 Musculoskeletal joint complaint 08/16/2018 Musculoskeletal No muscle weakness 08/16/2018 Musculoskeletal No myalgias 08/16/2018 Dermatologic No sores 08/16/2018 Neurologic No dizziness 08/16/2018 Neurologic No headache 08/16/2018 Neurologic No neck pain 08/16/2018 Neurologic No syncope 08/16/2018 Psychiatric No anxiety 08/16/2018 Psychiatric No depression 08/16/2018 Constitutional No recent illness 04/12/2018 Constitutional No chills 04/12/2018 Constitutional fatigue 04/12/2018 Constitutional No fever 04/12/2018 Constitutional No insomnia 04/12/2018 Constitutional No malaise 04/12/2018 Ears/Nose/Throat/Neck No dental pain 04/12/2018 Ears/Nose/Throat/Neck No dizziness 04/12/2018 Ears/Nose/Throat/Neck No dysphagia 04/12/2018 Ears/Nose/Throat/Neck No headache 04/12/2018 Ears/Nose/Throat/Neck No hearing loss 04/12/2018 Ears/Nose/Throat/Neck No nasal allergies 04/12/2018 Ears/Nose/Throat/Neck No sore throat 04/12/2018 Ears/Nose/Throat/Neck No postnasal drip 04/12/2018 Ears/Nose/Throat/Neck No sinus congestion 04/12/2018 Cardiovascular No chest pain/pressure 04/12/2018 Cardiovascular No dyspnea 04/12/2018 Cardiovascular No edema 04/12/2018 Cardiovascular No exercise intolerance 04/12/2018 Cardiovascular fatigue 04/12/2018 Cardiovascular hypertension 04/12/2018 Cardiovascular No near-syncope/dizziness 04/12/2018 Respiratory No chest tightness 04/12/2018 Respiratory No cough 04/12/2018 Respiratory No dyspnea 04/12/2018 Respiratory No pedal edema 04/12/2018 Gastrointestinal No abdominal pain 04/12/2018 Gastrointestinal No constipation 04/12/2018 Gastrointestinal No diarrhea 04/12/2018 Gastrointestinal No gastroesophageal reflux 04/12/2018 Musculoskeletal stiffness 04/12/2018 Musculoskeletal No swelling 04/12/2018 Musculoskeletal No muscle weakness 04/12/2018 Musculoskeletal No myalgias 04/12/2018 Dermatologic No sores 04/12/2018 Neurologic No dizziness 04/12/2018 Neurologic No headache 04/12/2018 Neurologic No neck pain 04/12/2018 Neurologic No syncope 04/12/2018 Psychiatric No anxiety 04/12/2018 Psychiatric No depression 04/12/2018 Musculoskeletal joint complaint 04/12/2018 Constitutional recent illness 01/20/2018 Constitutional No chills 01/20/2018 Constitutional No diaphoresis 01/20/2018 Constitutional fatigue 01/20/2018 Constitutional No fever 01/20/2018 Constitutional malaise 01/20/2018 Eyes No blindness 01/20/2018 Ears/Nose/Throat/Neck nasal allergies 01/20/2018 Ears/Nose/Throat/Neck No nasal discharge 01/20/2018 Ears/Nose/Throat/Neck No sore throat 01/20/2018 Ears/Nose/Throat/Neck otalgia 01/20/2018 Ears/Nose/Throat/Neck No sinus congestion 01/20/2018 Cardiovascular No chest pain/pressure 01/20/2018 Cardiovascular No dyspnea 01/20/2018 Respiratory No chest congestion 01/20/2018 Respiratory No cough 01/20/2018 Respiratory No dyspnea 01/20/2018 Gastrointestinal No abdominal pain 01/20/2018 Musculoskeletal No joint complaint 01/20/2018 Dermatologic No rash 01/20/2018 Neurologic No alteration of consciousness 01/20/2018 Neurologic No mental status change 01/20/2018 Ears/Nose/Throat/Neck dizziness 01/20/2018 Constitutional recent illness 12/29/2017 Constitutional No chills 12/29/2017 Constitutional No diaphoresis 12/29/2017 Constitutional fatigue 12/29/2017 Constitutional No fever 12/29/2017 Constitutional malaise 12/29/2017 Eyes No blindness 12/29/2017 Ears/Nose/Throat/Neck nasal allergies 12/29/2017 Ears/Nose/Throat/Neck No nasal discharge 12/29/2017 Ears/Nose/Throat/Neck No otalgia 12/29/2017 Ears/Nose/Throat/Neck No sinus congestion 12/29/2017 Ears/Nose/Throat/Neck No sore throat 12/29/2017 Cardiovascular No chest pain/pressure 12/29/2017 Cardiovascular No dyspnea 12/29/2017 Cardiovascular fatigue 12/29/2017 Cardiovascular hypertension 12/29/2017 Cardiovascular near-syncope/dizziness 12/29/2017 Respiratory No chest congestion 12/29/2017 Respiratory No cough 12/29/2017 Respiratory No dyspnea 12/29/2017 Gastrointestinal No abdominal pain 12/29/2017 Musculoskeletal No joint complaint 12/29/2017 Dermatologic No rash 12/29/2017 Neurologic No alteration of consciousness 12/29/2017 Neurologic No mental status change 12/29/2017 Psychiatric No anxiety 12/29/2017 Psychiatric No depression 12/29/2017 Constitutional No recent illness 08/24/2017 Constitutional No chills 08/24/2017 Constitutional fatigue 08/24/2017 Constitutional No fever 08/24/2017 Constitutional No insomnia 08/24/2017 Constitutional No malaise 08/24/2017 Ears/Nose/Throat/Neck No dental pain 08/24/2017 Ears/Nose/Throat/Neck No dizziness 08/24/2017 Ears/Nose/Throat/Neck No dysphagia 08/24/2017 Ears/Nose/Throat/Neck No headache 08/24/2017 Ears/Nose/Throat/Neck No hearing loss 08/24/2017 Ears/Nose/Throat/Neck No nasal allergies 08/24/2017 Ears/Nose/Throat/Neck No sore throat 08/24/2017 Ears/Nose/Throat/Neck No postnasal drip 08/24/2017 Ears/Nose/Throat/Neck No sinus congestion 08/24/2017 Cardiovascular No chest pain/pressure 08/24/2017 Cardiovascular No dyspnea 08/24/2017 Cardiovascular No edema 08/24/2017 Cardiovascular No exercise intolerance 08/24/2017 Cardiovascular fatigue 08/24/2017 Cardiovascular hypertension 08/24/2017 Cardiovascular No near-syncope/dizziness 08/24/2017 Respiratory No chest tightness 08/24/2017 Respiratory No cough 08/24/2017 Respiratory No dyspnea 08/24/2017 Respiratory No pedal edema 08/24/2017 Gastrointestinal No abdominal pain 08/24/2017 Gastrointestinal No constipation 08/24/2017 Gastrointestinal No diarrhea 08/24/2017 Gastrointestinal No gastroesophageal reflux 08/24/2017 Gastrointestinal No nausea 08/24/2017 Gastrointestinal No vomiting 08/24/2017 Musculoskeletal No stiffness 08/24/2017 Musculoskeletal No swelling 08/24/2017 Musculoskeletal No muscle weakness 08/24/2017 Musculoskeletal No myalgias 08/24/2017 Dermatologic No sores 08/24/2017 Neurologic No dizziness 08/24/2017 Neurologic No headache 08/24/2017 Neurologic No neck pain 08/24/2017 Neurologic No syncope 08/24/2017 Psychiatric No anxiety 08/24/2017 Psychiatric No depression 08/24/2017 Eyes eyelid erythema 08/24/2017 Constitutional No recent illness 07/26/2017 Constitutional No chills 07/26/2017 Constitutional fatigue 07/26/2017 Constitutional No fever 07/26/2017 Constitutional No insomnia 07/26/2017 Constitutional No malaise 07/26/2017 Ears/Nose/Throat/Neck No dental pain 07/26/2017 Ears/Nose/Throat/Neck No dizziness 07/26/2017 Ears/Nose/Throat/Neck No dysphagia 07/26/2017 Ears/Nose/Throat/Neck No headache 07/26/2017 Ears/Nose/Throat/Neck No hearing loss 07/26/2017 Ears/Nose/Throat/Neck No nasal allergies 07/26/2017 Ears/Nose/Throat/Neck No sore throat 07/26/2017 Ears/Nose/Throat/Neck otalgia 07/26/2017 Ears/Nose/Throat/Neck No postnasal drip 07/26/2017 Ears/Nose/Throat/Neck No sinus congestion 07/26/2017 Cardiovascular No chest pain/pressure 07/26/2017 Cardiovascular No dyspnea 07/26/2017 Cardiovascular No edema 07/26/2017 Cardiovascular No exercise intolerance 07/26/2017 Cardiovascular fatigue 07/26/2017 Cardiovascular No near-syncope/dizziness 07/26/2017 Respiratory No chest tightness 07/26/2017 Respiratory No cough 07/26/2017 Respiratory No dyspnea 07/26/2017 Respiratory No pedal edema 07/26/2017 Gastrointestinal No abdominal pain 07/26/2017 Gastrointestinal No constipation 07/26/2017 Gastrointestinal No diarrhea 07/26/2017 Gastrointestinal No gastroesophageal reflux 07/26/2017 Gastrointestinal No nausea 07/26/2017 Gastrointestinal No vomiting 07/26/2017 Musculoskeletal No stiffness 07/26/2017 Musculoskeletal No swelling 07/26/2017 Musculoskeletal No muscle weakness 07/26/2017 Musculoskeletal No myalgias 07/26/2017 Dermatologic No sores 07/26/2017 Neurologic No dizziness 07/26/2017 Neurologic No headache 07/26/2017 Neurologic No neck pain 07/26/2017 Neurologic No syncope 07/26/2017 Psychiatric No anxiety 07/26/2017 Psychiatric No depression 07/26/2017 Cardiovascular hypertension 07/26/2017 Constitutional recent illness 05/27/2017 Constitutional No chills 05/27/2017 Constitutional No diaphoresis 05/27/2017 Constitutional fatigue 05/27/2017 Constitutional No fever 05/27/2017 Constitutional malaise 05/27/2017 Eyes No eye erythema 05/27/2017 Ears/Nose/Throat/Neck nasal allergies 05/27/2017 Ears/Nose/Throat/Neck No nasal discharge 05/27/2017 Ears/Nose/Throat/Neck No sore throat 05/27/2017 Ears/Nose/Throat/Neck otalgia 05/27/2017 Cardiovascular No chest pain/pressure 05/27/2017 Cardiovascular No dyspnea 05/27/2017 Cardiovascular fatigue 05/27/2017 Cardiovascular hypertension 05/27/2017 Cardiovascular near-syncope/dizziness 05/27/2017 Respiratory No chest congestion 05/27/2017 Respiratory No cough 05/27/2017 Respiratory No dyspnea 05/27/2017 Gastrointestinal No abdominal pain 05/27/2017 Musculoskeletal No joint complaint 05/27/2017 Dermatologic No rash 05/27/2017 Neurologic No alteration of consciousness 05/27/2017 Neurologic No mental status change 05/27/2017 Constitutional recent illness 05/03/2017 Constitutional No chills 05/03/2017 Constitutional No diaphoresis 05/03/2017 Constitutional fatigue 05/03/2017 Constitutional No fever 05/03/2017 Constitutional malaise 05/03/2017 Eyes No blindness 05/03/2017 Ears/Nose/Throat/Neck nasal allergies 05/03/2017 Ears/Nose/Throat/Neck No nasal discharge 05/03/2017 Ears/Nose/Throat/Neck No otalgia 05/03/2017 Ears/Nose/Throat/Neck No sinus congestion 05/03/2017 Ears/Nose/Throat/Neck No sore throat 05/03/2017 Cardiovascular No chest pain/pressure 05/03/2017 Cardiovascular No dyspnea 05/03/2017 Cardiovascular fatigue 05/03/2017 Cardiovascular hypertension 05/03/2017 Cardiovascular near-syncope/dizziness 05/03/2017 Respiratory No chest congestion 05/03/2017 Respiratory No cough 05/03/2017 Respiratory No dyspnea 05/03/2017 Gastrointestinal No abdominal pain 05/03/2017 Musculoskeletal No joint complaint 05/03/2017 Dermatologic No rash 05/03/2017 Neurologic No alteration of consciousness 05/03/2017 Neurologic No mental status change 05/03/2017 Constitutional recent illness 04/15/2017 Constitutional anorexia 04/15/2017 Constitutional No chills 04/15/2017 Constitutional No diaphoresis 04/15/2017 Constitutional No fever 04/15/2017 Constitutional fatigue 04/15/2017 Constitutional malaise 04/15/2017 Eyes No eye erythema 04/15/2017 Ears/Nose/Throat/Neck nasal allergies 04/15/2017 Ears/Nose/Throat/Neck No nasal discharge 04/15/2017 Ears/Nose/Throat/Neck No sinus congestion 04/15/2017 Ears/Nose/Throat/Neck No sore throat 04/15/2017 Ears/Nose/Throat/Neck No otalgia 04/15/2017 Cardiovascular No chest pain/pressure 04/15/2017 Cardiovascular No dyspnea 04/15/2017 Cardiovascular fatigue 04/15/2017 Cardiovascular near-syncope/dizziness 04/15/2017 Cardiovascular hypertension 04/15/2017 Respiratory No cough 04/15/2017 Respiratory No chest congestion 04/15/2017 Respiratory No dyspnea 04/15/2017 Gastrointestinal No abdominal pain 04/15/2017 Musculoskeletal No joint complaint 04/15/2017 Dermatologic No rash 04/15/2017 Neurologic No alteration of consciousness 04/15/2017 Neurologic No mental status change 04/15/2017 Constitutional recent illness 03/30/2017 Constitutional No chills 03/30/2017 Constitutional No diaphoresis 03/30/2017 Constitutional No fever 03/30/2017 Eyes No eye erythema 03/30/2017 Ears/Nose/Throat/Neck nasal allergies 03/30/2017 Ears/Nose/Throat/Neck otalgia 03/30/2017 Cardiovascular No chest pain/pressure 03/30/2017 Cardiovascular No dyspnea 03/30/2017 Respiratory No cough 03/30/2017 Respiratory No dyspnea 03/30/2017 Gastrointestinal No abdominal pain 03/30/2017 Dermatologic No rash 03/30/2017 Neurologic No alteration of consciousness 03/30/2017 Neurologic No mental status change 03/30/2017 Constitutional No recent illness 03/16/2017 Constitutional No chills 03/16/2017 Constitutional No diaphoresis 03/16/2017 Constitutional fatigue 03/16/2017 Constitutional No fever 03/16/2017 Eyes No blindness 03/16/2017 Ears/Nose/Throat/Neck dizziness 03/16/2017 Ears/Nose/Throat/Neck nasal allergies 03/16/2017 Ears/Nose/Throat/Neck nasal discharge 03/16/2017 Ears/Nose/Throat/Neck otalgia 03/16/2017 Ears/Nose/Throat/Neck postnasal drip 03/16/2017 Ears/Nose/Throat/Neck sinus congestion 03/16/2017 Cardiovascular No chest pain/pressure 03/16/2017 Cardiovascular No dyspnea 03/16/2017 Respiratory cough 03/16/2017 Respiratory No dyspnea 03/16/2017 Gastrointestinal No abdominal pain 03/16/2017 Gastrointestinal No nausea 03/16/2017 Gastrointestinal No vomiting 03/16/2017 Dermatologic No rash 03/16/2017 Neurologic No alteration of consciousness 03/16/2017 Neurologic No mental status change 03/16/2017 Psychiatric No anxiety 03/16/2017 Psychiatric No depression 03/16/2017 Constitutional No recent illness 03/12/2017 Constitutional No chills 03/12/2017 Constitutional No diaphoresis 03/12/2017 Constitutional No fever 03/12/2017 Constitutional fatigue 03/12/2017 Eyes No eye erythema 03/12/2017 Ears/Nose/Throat/Neck dizziness 03/12/2017 Ears/Nose/Throat/Neck nasal discharge 03/12/2017 Ears/Nose/Throat/Neck nasal allergies 03/12/2017 Ears/Nose/Throat/Neck otalgia 03/12/2017 Ears/Nose/Throat/Neck sinus congestion 03/12/2017 Ears/Nose/Throat/Neck postnasal drip 03/12/2017 Cardiovascular No chest pain/pressure 03/12/2017 Cardiovascular No dyspnea 03/12/2017 Respiratory cough 03/12/2017 Respiratory No dyspnea 03/12/2017 Gastrointestinal No abdominal pain 03/12/2017 Gastrointestinal No vomiting 03/12/2017 Gastrointestinal No nausea 03/12/2017 Dermatologic No rash 03/12/2017 Neurologic No alteration of consciousness 03/12/2017 Neurologic No mental status change 03/12/2017 Constitutional No recent illness 02/17/2017 Constitutional No chills 02/17/2017 Constitutional No fatigue 02/17/2017 Constitutional No fever 02/17/2017 Constitutional No insomnia 02/17/2017 Constitutional No malaise 02/17/2017 Eyes No blindness 02/17/2017 Eyes No vision change 02/17/2017 Ears/Nose/Throat/Neck No dental pain 02/17/2017 Ears/Nose/Throat/Neck No dizziness 02/17/2017 Ears/Nose/Throat/Neck No dysphagia 02/17/2017 Ears/Nose/Throat/Neck No headache 02/17/2017 Ears/Nose/Throat/Neck No hearing loss 02/17/2017 Ears/Nose/Throat/Neck No nasal allergies 02/17/2017 Ears/Nose/Throat/Neck No sore throat 02/17/2017 Ears/Nose/Throat/Neck otalgia 02/17/2017 Ears/Nose/Throat/Neck No postnasal drip 02/17/2017 Ears/Nose/Throat/Neck No sinus congestion 02/17/2017 Cardiovascular No chest pain/pressure 02/17/2017 Cardiovascular No dyspnea 02/17/2017 Cardiovascular No edema 02/17/2017 Cardiovascular No exercise intolerance 02/17/2017 Cardiovascular No fatigue 02/17/2017 Cardiovascular No near-syncope/dizziness 02/17/2017 Respiratory No chest tightness 02/17/2017 Respiratory No cough 02/17/2017 Respiratory No dyspnea 02/17/2017 Respiratory No pedal edema 02/17/2017 Gastrointestinal No abdominal pain 02/17/2017 Gastrointestinal No constipation 02/17/2017 Gastrointestinal No diarrhea 02/17/2017 Gastrointestinal No gastroesophageal reflux 02/17/2017 Gastrointestinal No nausea 02/17/2017 Gastrointestinal No vomiting 02/17/2017 Genitourinary/Nephrology No dysuria 02/17/2017 Genitourinary/Nephrology No nocturia 02/17/2017 Genitourinary/Nephrology No urinary incontinence 02/17/2017 Musculoskeletal No stiffness 02/17/2017 Musculoskeletal No swelling 02/17/2017 Musculoskeletal No muscle weakness 02/17/2017 Musculoskeletal No myalgias 02/17/2017 Dermatologic No rash 02/17/2017 Dermatologic No sores 02/17/2017 Dermatologic No scar 02/17/2017 Neurologic No dizziness 02/17/2017 Neurologic No headache 02/17/2017 Neurologic No neck pain 02/17/2017 Neurologic No syncope 02/17/2017 Psychiatric No anxiety 02/17/2017 Psychiatric No depression 02/17/2017 Constitutional No recent illness 01/20/2017 Constitutional No chills 01/20/2017 Constitutional No fatigue 01/20/2017 Constitutional No fever 01/20/2017 Constitutional No insomnia 01/20/2017 Constitutional No malaise 01/20/2017 Eyes No blindness 01/20/2017 Eyes No vision change 01/20/2017 Ears/Nose/Throat/Neck No dental pain 01/20/2017 Ears/Nose/Throat/Neck No dizziness 01/20/2017 Ears/Nose/Throat/Neck No dysphagia 01/20/2017 Ears/Nose/Throat/Neck No headache 01/20/2017 Ears/Nose/Throat/Neck No hearing loss 01/20/2017 Ears/Nose/Throat/Neck No nasal allergies 01/20/2017 Ears/Nose/Throat/Neck No sore throat 01/20/2017 Ears/Nose/Throat/Neck otalgia 01/20/2017 Ears/Nose/Throat/Neck No postnasal drip 01/20/2017 Ears/Nose/Throat/Neck No sinus congestion 01/20/2017 Cardiovascular No chest pain/pressure 01/20/2017 Cardiovascular No dyspnea 01/20/2017 Cardiovascular No edema 01/20/2017 Cardiovascular No exercise intolerance 01/20/2017 Cardiovascular No fatigue 01/20/2017 Cardiovascular No near-syncope/dizziness 01/20/2017 Respiratory No chest tightness 01/20/2017 Respiratory No cough 01/20/2017 Respiratory No dyspnea 01/20/2017 Respiratory No pedal edema 01/20/2017 Gastrointestinal No abdominal pain 01/20/2017 Gastrointestinal No constipation 01/20/2017 Gastrointestinal No diarrhea 01/20/2017 Gastrointestinal No gastroesophageal reflux 01/20/2017 Gastrointestinal No nausea 01/20/2017 Gastrointestinal No vomiting 01/20/2017 Genitourinary/Nephrology No dysuria 01/20/2017 Genitourinary/Nephrology No nocturia 01/20/2017 Genitourinary/Nephrology No urinary incontinence 01/20/2017 Musculoskeletal No stiffness 01/20/2017 Musculoskeletal No swelling 01/20/2017 Musculoskeletal No muscle weakness 01/20/2017 Musculoskeletal No myalgias 01/20/2017 Dermatologic No rash 01/20/2017 Dermatologic No sores 01/20/2017 Dermatologic No scar 01/20/2017 Neurologic No dizziness 01/20/2017 Neurologic No headache 01/20/2017 Neurologic No neck pain 01/20/2017 Neurologic No syncope 01/20/2017 Psychiatric No anxiety 01/20/2017 Psychiatric No depression 01/20/2017 Constitutional No recent illness 11/17/2016 Constitutional No chills 11/17/2016 Constitutional No fatigue 11/17/2016 Constitutional No fever 11/17/2016 Constitutional No insomnia 11/17/2016 Constitutional No malaise 11/17/2016 Eyes No blindness 11/17/2016 Eyes No vision change 11/17/2016 Ears/Nose/Throat/Neck No dental pain 11/17/2016 Ears/Nose/Throat/Neck No dizziness 11/17/2016 Ears/Nose/Throat/Neck No dysphagia 11/17/2016 Ears/Nose/Throat/Neck No headache 11/17/2016 Ears/Nose/Throat/Neck No hearing loss 11/17/2016 Ears/Nose/Throat/Neck No nasal allergies 11/17/2016 Ears/Nose/Throat/Neck No sore throat 11/17/2016 Ears/Nose/Throat/Neck otalgia 11/17/2016 Ears/Nose/Throat/Neck No postnasal drip 11/17/2016 Ears/Nose/Throat/Neck No sinus congestion 11/17/2016 Cardiovascular No chest pain/pressure 11/17/2016 Cardiovascular No dyspnea 11/17/2016 Cardiovascular No edema 11/17/2016 Cardiovascular No exercise intolerance 11/17/2016 Cardiovascular No fatigue 11/17/2016 Cardiovascular No near-syncope/dizziness 11/17/2016 Respiratory No chest tightness 11/17/2016 Respiratory No cough 11/17/2016 Respiratory No dyspnea 11/17/2016 Respiratory No pedal edema 11/17/2016 Gastrointestinal No abdominal pain 11/17/2016 Gastrointestinal No constipation 11/17/2016 Gastrointestinal No diarrhea 11/17/2016 Gastrointestinal No gastroesophageal reflux 11/17/2016 Gastrointestinal No nausea 11/17/2016 Gastrointestinal No vomiting 11/17/2016 Genitourinary/Nephrology No dysuria 11/17/2016 Genitourinary/Nephrology No nocturia 11/17/2016 Genitourinary/Nephrology No urinary incontinence 11/17/2016 Musculoskeletal No stiffness 11/17/2016 Musculoskeletal No swelling 11/17/2016 Musculoskeletal No muscle weakness 11/17/2016 Musculoskeletal No myalgias 11/17/2016 Dermatologic No rash 11/17/2016 Dermatologic No sores 11/17/2016 Dermatologic No scar 11/17/2016 Neurologic No dizziness 11/17/2016 Neurologic No headache 11/17/2016 Neurologic No neck pain 11/17/2016 Neurologic No syncope 11/17/2016 Psychiatric No anxiety 11/17/2016 Psychiatric No depression 11/17/2016 Constitutional recent illness 11/05/2016 Constitutional No chills 11/05/2016 Constitutional fatigue 11/05/2016 Constitutional fever 11/05/2016 Constitutional No insomnia 11/05/2016 Constitutional No malaise 11/05/2016 Eyes No blindness 11/05/2016 Eyes No vision change 11/05/2016 Ears/Nose/Throat/Neck dizziness 11/05/2016 Ears/Nose/Throat/Neck No dysphagia 11/05/2016 Ears/Nose/Throat/Neck headache 11/05/2016 Ears/Nose/Throat/Neck No hearing loss 11/05/2016 Ears/Nose/Throat/Neck No nasal allergies 11/05/2016 Ears/Nose/Throat/Neck sore throat 11/05/2016 Ears/Nose/Throat/Neck otalgia 11/05/2016 Ears/Nose/Throat/Neck No postnasal drip 11/05/2016 Ears/Nose/Throat/Neck No sinus congestion 11/05/2016 Cardiovascular No dyspnea 11/05/2016 Cardiovascular No edema 11/05/2016 Cardiovascular fatigue 11/05/2016 Respiratory No chest tightness 11/05/2016 Respiratory cough 11/05/2016 Respiratory No dyspnea 11/05/2016 Respiratory No pedal edema 11/05/2016 Gastrointestinal No abdominal pain 11/05/2016 Gastrointestinal No constipation 11/05/2016 Gastrointestinal No diarrhea 11/05/2016 Gastrointestinal No gastroesophageal reflux 11/05/2016 Gastrointestinal No nausea 11/05/2016 Gastrointestinal No vomiting 11/05/2016 Musculoskeletal No stiffness 11/05/2016 Musculoskeletal No swelling 11/05/2016 Musculoskeletal No muscle weakness 11/05/2016 Musculoskeletal No myalgias 11/05/2016 Neurologic No dizziness 11/05/2016 Neurologic No headache 11/05/2016 Neurologic No neck pain 11/05/2016 Neurologic No syncope 11/05/2016 Psychiatric No anxiety 11/05/2016 Psychiatric No depression 11/05/2016 Ears/Nose/Throat/Neck nasal discharge 11/05/2016 Constitutional No recent illness 09/21/2016 Constitutional No chills 09/21/2016 Constitutional No fatigue 09/21/2016 Constitutional No fever 09/21/2016 Constitutional No insomnia 09/21/2016 Constitutional No malaise 09/21/2016 Eyes No blindness 09/21/2016 Eyes No vision change 09/21/2016 Ears/Nose/Throat/Neck No dental pain 09/21/2016 Ears/Nose/Throat/Neck No dizziness 09/21/2016 Ears/Nose/Throat/Neck No dysphagia 09/21/2016 Ears/Nose/Throat/Neck No headache 09/21/2016 Ears/Nose/Throat/Neck No hearing loss 09/21/2016 Ears/Nose/Throat/Neck No nasal allergies 09/21/2016 Ears/Nose/Throat/Neck No sore throat 09/21/2016 Ears/Nose/Throat/Neck otalgia 09/21/2016 Ears/Nose/Throat/Neck No postnasal drip 09/21/2016 Ears/Nose/Throat/Neck No sinus congestion 09/21/2016 Cardiovascular No chest pain/pressure 09/21/2016 Cardiovascular No dyspnea 09/21/2016 Cardiovascular No edema 09/21/2016 Cardiovascular No exercise intolerance 09/21/2016 Cardiovascular No fatigue 09/21/2016 Cardiovascular No near-syncope/dizziness 09/21/2016 Respiratory No chest tightness 09/21/2016 Respiratory No cough 09/21/2016 Respiratory No dyspnea 09/21/2016 Respiratory No pedal edema 09/21/2016 Gastrointestinal No abdominal pain 09/21/2016 Gastrointestinal No constipation 09/21/2016 Gastrointestinal No diarrhea 09/21/2016 Gastrointestinal No gastroesophageal reflux 09/21/2016 Gastrointestinal No nausea 09/21/2016 Gastrointestinal No vomiting 09/21/2016 Genitourinary/Nephrology No dysuria 09/21/2016 Genitourinary/Nephrology No nocturia 09/21/2016 Genitourinary/Nephrology No urinary incontinence 09/21/2016 Musculoskeletal No stiffness 09/21/2016 Musculoskeletal No swelling 09/21/2016 Musculoskeletal No muscle weakness 09/21/2016 Musculoskeletal No myalgias 09/21/2016 Dermatologic No rash 09/21/2016 Dermatologic No sores 09/21/2016 Dermatologic No scar 09/21/2016 Neurologic No dizziness 09/21/2016 Neurologic No headache 09/21/2016 Neurologic No neck pain 09/21/2016 Neurologic No syncope 09/21/2016 Psychiatric No anxiety 09/21/2016 Psychiatric No depression 09/21/2016 Constitutional No recent illness 08/03/2016 Constitutional No chills 08/03/2016 Constitutional No fatigue 08/03/2016 Constitutional No fever 08/03/2016 Constitutional No insomnia 08/03/2016 Constitutional No malaise 08/03/2016 Eyes No blindness 08/03/2016 Eyes No vision change 08/03/2016 Ears/Nose/Throat/Neck No dental pain 08/03/2016 Ears/Nose/Throat/Neck No dizziness 08/03/2016 Ears/Nose/Throat/Neck No dysphagia 08/03/2016 Ears/Nose/Throat/Neck No headache 08/03/2016 Ears/Nose/Throat/Neck No hearing loss 08/03/2016 Ears/Nose/Throat/Neck No nasal allergies 08/03/2016 Ears/Nose/Throat/Neck No sore throat 08/03/2016 Ears/Nose/Throat/Neck No postnasal drip 08/03/2016 Ears/Nose/Throat/Neck No sinus congestion 08/03/2016 Cardiovascular No chest pain/pressure 08/03/2016 Cardiovascular No dyspnea 08/03/2016 Cardiovascular No edema 08/03/2016 Cardiovascular No exercise intolerance 08/03/2016 Cardiovascular No fatigue 08/03/2016 Cardiovascular No near-syncope/dizziness 08/03/2016 Respiratory No chest tightness 08/03/2016 Respiratory No cough 08/03/2016 Respiratory No dyspnea 08/03/2016 Respiratory No pedal edema 08/03/2016 Gastrointestinal No abdominal pain 08/03/2016 Gastrointestinal No constipation 08/03/2016 Gastrointestinal No diarrhea 08/03/2016 Gastrointestinal No gastroesophageal reflux 08/03/2016 Gastrointestinal No nausea 08/03/2016 Gastrointestinal No vomiting 08/03/2016 Genitourinary/Nephrology No dysuria 08/03/2016 Genitourinary/Nephrology No nocturia 08/03/2016 Genitourinary/Nephrology No urinary incontinence 08/03/2016 Musculoskeletal No stiffness 08/03/2016 Musculoskeletal No swelling 08/03/2016 Musculoskeletal No muscle weakness 08/03/2016 Musculoskeletal No myalgias 08/03/2016 Dermatologic No rash 08/03/2016 Dermatologic No sores 08/03/2016 Dermatologic No scar 08/03/2016 Neurologic No dizziness 08/03/2016 Neurologic No headache 08/03/2016 Neurologic No neck pain 08/03/2016 Neurologic No syncope 08/03/2016 Psychiatric No anxiety 08/03/2016 Psychiatric No depression 08/03/2016 Ears/Nose/Throat/Neck otalgia 08/03/2016 Constitutional No recent illness 07/06/2016 Constitutional No chills 07/06/2016 Constitutional No fatigue 07/06/2016 Constitutional No fever 07/06/2016 Constitutional No insomnia 07/06/2016 Constitutional No malaise 07/06/2016 Eyes No blindness 07/06/2016 Eyes No vision change 07/06/2016 Ears/Nose/Throat/Neck No dental pain 07/06/2016 Ears/Nose/Throat/Neck No dizziness 07/06/2016 Ears/Nose/Throat/Neck No dysphagia 07/06/2016 Ears/Nose/Throat/Neck No headache 07/06/2016 Ears/Nose/Throat/Neck No hearing loss 07/06/2016 Ears/Nose/Throat/Neck No nasal allergies 07/06/2016 Ears/Nose/Throat/Neck No sore throat 07/06/2016 Ears/Nose/Throat/Neck No postnasal drip 07/06/2016 Ears/Nose/Throat/Neck No sinus congestion 07/06/2016 Cardiovascular No chest pain/pressure 07/06/2016 Cardiovascular No dyspnea 07/06/2016 Cardiovascular No edema 07/06/2016 Cardiovascular No exercise intolerance 07/06/2016 Cardiovascular No fatigue 07/06/2016 Cardiovascular No near-syncope/dizziness 07/06/2016 Respiratory No chest tightness 07/06/2016 Respiratory No cough 07/06/2016 Respiratory No dyspnea 07/06/2016 Respiratory No pedal edema 07/06/2016 Gastrointestinal No abdominal pain 07/06/2016 Gastrointestinal No constipation 07/06/2016 Gastrointestinal No diarrhea 07/06/2016 Gastrointestinal No gastroesophageal reflux 07/06/2016 Gastrointestinal No nausea 07/06/2016 Gastrointestinal No vomiting 07/06/2016 Genitourinary/Nephrology No dysuria 07/06/2016 Genitourinary/Nephrology No nocturia 07/06/2016 Genitourinary/Nephrology No urinary incontinence 07/06/2016 Musculoskeletal No stiffness 07/06/2016 Musculoskeletal No swelling 07/06/2016 Musculoskeletal No muscle weakness 07/06/2016 Musculoskeletal No myalgias 07/06/2016 Dermatologic No rash 07/06/2016 Dermatologic No sores 07/06/2016 Dermatologic No scar 07/06/2016 Neurologic No dizziness 07/06/2016 Neurologic No headache 07/06/2016 Neurologic No neck pain 07/06/2016 Neurologic No syncope 07/06/2016 Psychiatric No anxiety 07/06/2016 Psychiatric No depression 07/06/2016 Cardiovascular hypertension 07/06/2016 Musculoskeletal carpal tunnel syndrome 07/06/2016 Physical Exam Exam Name System Name Item Name Status Result Effective Dates Notes Full Exam - General 1994 Constitutional general appearance Development: appears stated age 0502/28/2019 None Full Exam - General 1994 Constitutional general appearance Overall: well developed 02/28/2019 None Full Exam - General 1994 Constitutional general appearance Overall: in no acute distress 02/28/2019 None Full Exam - General 1994 Constitutional general appearance Overall: well nourished 02/28/2019 None Full Exam - General 1994 Constitutional general appearance Hygiene/Attention to Grooming: good hygiene 02/28/2019 None Full Exam - General 1994 Eyes conjunctiva/eyelids Overall: conjunctiva clear 02/28/2019 None Full Exam - General 1994 Eyes conjunctiva/eyelids Overall: cornea clear 02/28/2019 None Full Exam - General 1994 Eyes conjunctiva/eyelids Overall: eyelids normal 02/28/2019 None Full Exam - General 1994 Eyes pupils and irises Overall: pupils equal, round, reactive to light and accomodation 02/28/2019 None Full Exam - General 1994 Ears/Nose/Throat otoscopic exam Overall: external auditory canals clear 02/28/2019 None Full Exam - General 1994 Ears/Nose/Throat otoscopic exam Overall: tympanic membranes clear 02/28/2019 None Full Exam - General 1994 Ears/Nose/Throat lips/teeth/gingiva Overall: benign lips 02/28/2019 None Full Exam - General 1994 Ears/Nose/Throat lips/teeth/gingiva Overall: normal dentition 02/28/2019 None Full Exam - General 1994 Ears/Nose/Throat oral cavity/pharynx/larynx Overall: oral mucosa clear 02/28/2019 None Full Exam - General 1995 Ears/Nose/Throat oral cavity/pharynx/larynx Overall: oropharyngeal mucosa clear 02/28/2019 None Full Exam - General 1994 Ears/Nose/Throat oral cavity/pharynx/larynx Overall: hypopharynx benign 02/28/2019 None Full Exam - General 1994 Ears/Nose/Throat oral cavity/pharynx/larynx Overall: no masses 02/28/2019 None Full Exam - General 1994 Ears/Nose/Throat oral cavity/pharynx/larynx Posterior Pharynx: clear post nasal drainage 02/28/2019 None Full Exam - General 1994 Respiratory auscultation Overall: breath sounds clear bilaterally 02/28/2019 None Full Exam - General 1994 Respiratory respiratory effort/rhythm Overall: no retractions 02/28/2019 None Full Exam - General 1994 Respiratory respiratory effort/rhythm Overall: normal rate 02/28/2019 None Full Exam - General 1994 Cardiovascular extremities Overall: no clubbing 02/28/2019 None Full Exam - General 1994 Cardiovascular auscultation of heart Overall: regular rate 02/28/2019 None Full Exam - General 1994 Cardiovascular auscultation of heart Overall: normal heart sounds 02/28/2019 None Full Exam - General 1994 Cardiovascular auscultation of heart Rate: bradycardia 02/28/2019 None Full Exam - General 1994 Abdomen abdominal exam Overall: no tenderness 02/28/2019 None Full Exam - General 1994 Abdomen abdominal exam Overall: normal bowel sounds 02/28/2019 None Full Exam - General 1994 Musculoskeletal spine, ribs and pelvis Overall: spine benign 02/28/2019 None Full Exam - General 1994 Musculoskeletal spine, ribs and pelvis Overall: sacroiliac joint benign 02/28/2019 None Full Exam - General 1994 Musculoskeletal spine, ribs and pelvis Overall: good posture 02/28/2019 None Full Exam - General 1994 Musculoskeletal gait and station Overall: normal gait 02/28/2019 None Full Exam - General 1994 Musculoskeletal gait and station Overall: normal station 02/28/2019 None Full Exam - General 1994 Musculoskeletal head and neck Overall: head atraumatic 02/28/2019 None Full Exam - General 1994 Musculoskeletal head and neck Overall: cervical spine benign 02/28/2019 None Full Exam - General 1994 Neurologic cranial nerves Overall: crainial nerves 2 - 12 grossly intact 02/28/2019 None Full Exam - General 1994 Psychiatric orientation/consciousness Overall: oriented to person, place and time 02/28/2019 None Full Exam - General 1994 Psychiatric mood and affect Overall: normal mood and affect 02/28/2019 None Full Exam - General 1994 Psychiatric appearance Overall: well-groomed, good eye contact 02/28/2019 None Full Exam - General 1994 Constitutional general appearance Development: appears stated age 0502/14/2019 None Full Exam - General 1994 Constitutional general appearance Overall: well developed 02/14/2019 None Full Exam - General 1994 Constitutional general appearance Overall: in no acute distress 02/14/2019 None Full Exam - General 1994 Constitutional general appearance Overall: well nourished 02/14/2019 None Full Exam - General 1994 Constitutional general appearance Hygiene/Attention to Grooming: good hygiene 02/14/2019 None Full Exam - General 1994 Eyes conjunctiva/eyelids Overall: conjunctiva clear 02/14/2019 None Full Exam - General 1994 Eyes conjunctiva/eyelids Overall: cornea clear 02/14/2019 None Full Exam - General 1994 Eyes conjunctiva/eyelids Overall: eyelids normal 02/14/2019 None Full Exam - General 1994 Eyes pupils and irises Overall: pupils equal, round, reactive to light and accomodation 02/14/2019 None Full Exam - General 1994 Ears/Nose/Throat otoscopic exam Overall: external auditory canals clear 02/14/2019 None Full Exam - General 1994 Ears/Nose/Throat otoscopic exam Overall: tympanic membranes clear 02/14/2019 None Full Exam - General 1994 Ears/Nose/Throat lips/teeth/gingiva Overall: benign lips 02/14/2019 None Full Exam - General 1994 Ears/Nose/Throat lips/teeth/gingiva Overall: normal dentition 02/14/2019 None Full Exam - General 1994 Ears/Nose/Throat oral cavity/pharynx/larynx Overall: oral mucosa clear 02/14/2019 None Full Exam - General 1994 Ears/Nose/Throat oral cavity/pharynx/larynx Overall: oropharyngeal mucosa clear 02/14/2019 None Full Exam - General 1994 Ears/Nose/Throat oral cavity/pharynx/larynx Overall: hypopharynx benign 02/14/2019 None Full Exam - General 1994 Ears/Nose/Throat oral cavity/pharynx/larynx Overall: no masses 02/14/2019 None Full Exam - General 1994 Ears/Nose/Throat oral cavity/pharynx/larynx Posterior Pharynx: clear post nasal drainage 02/14/2019 None Full Exam - General 1994 Respiratory auscultation Overall: breath sounds clear bilaterally 02/14/2019 None Full Exam - General 1994 Respiratory respiratory effort/rhythm Overall: no retractions 02/14/2019 None Full Exam - General 1994 Respiratory respiratory effort/rhythm Overall: normal rate 02/14/2019 None Full Exam - General 1994 Cardiovascular extremities Overall: no clubbing 02/14/2019 None Full Exam - General 1994 Cardiovascular auscultation of heart Overall: regular rate 02/14/2019 None Full Exam - General 1994 Cardiovascular auscultation of heart Overall: normal heart sounds 02/14/2019 None Full Exam - General 1994 Abdomen abdominal exam Overall: no tenderness 02/14/2019 None Full Exam - General 1994 Abdomen abdominal exam Overall: normal bowel sounds 02/14/2019 None Full Exam - General 1994 Musculoskeletal spine, ribs and pelvis Overall: spine benign 02/14/2019 None Full Exam - General 1994 Musculoskeletal spine, ribs and pelvis Overall: sacroiliac joint benign 02/14/2019 None Full Exam - General 1994 Musculoskeletal spine, ribs and pelvis Overall: good posture 02/14/2019 None Full Exam - General 1994 Musculoskeletal gait and station Overall: normal gait 02/14/2019 None Full Exam - General 1994 Musculoskeletal gait and station Overall: normal station 02/14/2019 None Full Exam - General 1994 Musculoskeletal head and neck Overall: head atraumatic 02/14/2019 None Full Exam - General 1994 Musculoskeletal head and neck Overall: cervical spine benign 02/14/2019 None Full Exam - General 1994 Neurologic cranial nerves Overall: crainial nerves 2 - 12 grossly intact 02/14/2019 None Full Exam - General 1994 Psychiatric orientation/consciousness Overall: oriented to person, place and time 02/14/2019 None Full Exam - General 1994 Psychiatric mood and affect Overall: normal mood and affect 02/14/2019 None Full Exam - General 1994 Psychiatric appearance Overall: well-groomed, good eye contact 02/14/2019 None Full Exam - General 1994 Cardiovascular auscultation of heart Rate: regular rate 02/14/2019 None Full Exam - General 1994 Constitutional general appearance Development: appears stated age 0401/30/2019 None Full Exam - General 1994 Constitutional general appearance Overall: well developed 01/30/2019 None Full Exam - General 1994 Constitutional general appearance Overall: in no acute distress 01/30/2019 None Full Exam - General 1994 Constitutional general appearance Overall: well nourished 01/30/2019 None Full Exam - General 1994 Constitutional general appearance Hygiene/Attention to Grooming: good hygiene 01/30/2019 None Full Exam - General 1994 Eyes conjunctiva/eyelids Overall: conjunctiva clear 01/30/2019 None Full Exam - General 1994 Eyes conjunctiva/eyelids Overall: cornea clear 01/30/2019 None Full Exam - General 1994 Eyes conjunctiva/eyelids Overall: eyelids normal 01/30/2019 None Full Exam - General 1994 Eyes pupils and irises Overall: pupils equal, round, reactive to light and accomodation 01/30/2019 None Full Exam - General 1994 Ears/Nose/Throat otoscopic exam Overall: external auditory canals clear 01/30/2019 None Full Exam - General 1994 Ears/Nose/Throat otoscopic exam Overall: tympanic membranes clear 01/30/2019 None Full Exam - General 1994 Ears/Nose/Throat lips/teeth/gingiva Overall: benign lips 01/30/2019 None Full Exam - General 1994 Ears/Nose/Throat lips/teeth/gingiva Overall: normal dentition 01/30/2019 None Full Exam - General 1994 Ears/Nose/Throat oral cavity/pharynx/larynx Overall: oral mucosa clear 01/30/2019 None Full Exam - General 1994 Ears/Nose/Throat oral cavity/pharynx/larynx Overall: oropharyngeal mucosa clear 01/30/2019 None Full Exam - General 1994 Ears/Nose/Throat oral cavity/pharynx/larynx Overall: hypopharynx benign 01/30/2019 None Full Exam - General 1994 Ears/Nose/Throat oral cavity/pharynx/larynx Overall: no masses 01/30/2019 None Full Exam - General 1994 Ears/Nose/Throat oral cavity/pharynx/larynx Posterior Pharynx: clear post nasal drainage 01/30/2019 None Full Exam - General 1994 Respiratory auscultation Overall: breath sounds clear bilaterally 01/30/2019 None Full Exam - General 1994 Respiratory respiratory effort/rhythm Overall: no retractions 01/30/2019 None Full Exam - General 1994 Respiratory respiratory effort/rhythm Overall: normal rate 01/30/2019 None Full Exam - General 1994 Cardiovascular extremities Overall: no clubbing 01/30/2019 None Full Exam - General 1994 Cardiovascular auscultation of heart Overall: regular rate 01/30/2019 None Full Exam - General 1994 Cardiovascular auscultation of heart Overall: normal heart sounds 01/30/2019 None Full Exam - General 1994 Abdomen abdominal exam Overall: no tenderness 01/30/2019 None Full Exam - General 1994 Abdomen abdominal exam Overall: normal bowel sounds 01/30/2019 None Full Exam - General 1994 Musculoskeletal spine, ribs and pelvis Overall: spine benign 01/30/2019 None Full Exam - General 1994 Musculoskeletal spine, ribs and pelvis Overall: sacroiliac joint benign 01/30/2019 None Full Exam - General 1994 Musculoskeletal spine, ribs and pelvis Overall: good posture 01/30/2019 None Full Exam - General 1994 Musculoskeletal gait and station Overall: normal gait 01/30/2019 None Full Exam - General 1994 Musculoskeletal gait and station Overall: normal station 01/30/2019 None Full Exam - General 1994 Musculoskeletal head and neck Overall: head atraumatic 01/30/2019 None Full Exam - General 1994 Musculoskeletal head and neck Overall: cervical spine benign 01/30/2019 None Full Exam - General 1994 Neurologic cranial nerves Overall: crainial nerves 2 - 12 grossly intact 01/30/2019 None Full Exam - General 1994 Psychiatric orientation/consciousness Overall: oriented to person, place and time 01/30/2019 None Full Exam - General 1994 Psychiatric mood and affect Overall: normal mood and affect 01/30/2019 None Full Exam - General 1994 Psychiatric appearance Overall: well-groomed, good eye contact 01/30/2019 None Full Exam - General 1994 Cardiovascular auscultation of heart Rate: bradycardia 01/30/2019 None Full Exam - General 1994 Constitutional general appearance Development: appears stated age 0401/16/2019 None Full Exam - General 1994 Constitutional general appearance Overall: well developed 01/16/2019 None Full Exam - General 1994 Constitutional general appearance Overall: in no acute distress 01/16/2019 None Full Exam - General 1994 Constitutional general appearance Overall: well nourished 01/16/2019 None Full Exam - General 1994 Constitutional general appearance Hygiene/Attention to Grooming: good hygiene 01/16/2019 None Full Exam - General 1994 Eyes conjunctiva/eyelids Overall: conjunctiva clear 01/16/2019 None Full Exam - General 1994 Eyes conjunctiva/eyelids Overall: cornea clear 01/16/2019 None Full Exam - General 1994 Eyes conjunctiva/eyelids Overall: eyelids normal 01/16/2019 None Full Exam - General 1994 Eyes pupils and irises Overall: pupils equal, round, reactive to light and accomodation 01/16/2019 None Full Exam - General 1994 Ears/Nose/Throat otoscopic exam Overall: external auditory canals clear 01/16/2019 None Full Exam - General 1994 Ears/Nose/Throat otoscopic exam Overall: tympanic membranes clear 01/16/2019 None Full Exam - General 1994 Ears/Nose/Throat lips/teeth/gingiva Overall: benign lips 01/16/2019 None Full Exam - General 1994 Ears/Nose/Throat lips/teeth/gingiva Overall: normal dentition 01/16/2019 None Full Exam - General 1994 Ears/Nose/Throat oral cavity/pharynx/larynx Overall: oral mucosa clear 01/16/2019 None Full Exam - General 1994 Ears/Nose/Throat oral cavity/pharynx/larynx Overall: oropharyngeal mucosa clear 01/16/2019 None Full Exam - General 1994 Ears/Nose/Throat oral cavity/pharynx/larynx Overall: hypopharynx benign 01/16/2019 None Full Exam - General 1994 Ears/Nose/Throat oral cavity/pharynx/larynx Overall: no masses 01/16/2019 None Full Exam - General 1994 Ears/Nose/Throat oral cavity/pharynx/larynx Posterior Pharynx: clear post nasal drainage 01/16/2019 None Full Exam - General 1994 Respiratory auscultation Overall: breath sounds clear bilaterally 01/16/2019 None Full Exam - General 1994 Respiratory respiratory effort/rhythm Overall: no retractions 01/16/2019 None Full Exam - General 1994 Respiratory respiratory effort/rhythm Overall: normal rate 01/16/2019 None Full Exam - General 1994 Cardiovascular extremities Overall: no clubbing 01/16/2019 None Full Exam - General 1994 Cardiovascular auscultation of heart Overall: regular rate 01/16/2019 None Full Exam - General 1994 Cardiovascular auscultation of heart Overall: normal heart sounds 01/16/2019 None Full Exam - General 1994 Cardiovascular auscultation of heart Rate: bradycardia 01/16/2019 None Full Exam - General 1994 Abdomen abdominal exam Overall: no tenderness 01/16/2019 None Full Exam - General 1994 Abdomen abdominal exam Overall: normal bowel sounds 01/16/2019 None Full Exam - General 1994 Musculoskeletal spine, ribs and pelvis Overall: spine benign 01/16/2019 None Full Exam - General 1994 Musculoskeletal spine, ribs and pelvis Overall: sacroiliac joint benign 01/16/2019 None Full Exam - General 1994 Musculoskeletal spine, ribs and pelvis Overall: good posture 01/16/2019 None Full Exam - General 1994 Musculoskeletal gait and station Overall: normal gait 01/16/2019 None Full Exam - General 1994 Musculoskeletal gait and station Overall: normal station 01/16/2019 None Full Exam - General 1994 Musculoskeletal head and neck Overall: head atraumatic 01/16/2019 None Full Exam - General 1994 Musculoskeletal head and neck Overall: cervical spine benign 01/16/2019 None Full Exam - General 1994 Neurologic cranial nerves Overall: crainial nerves 2 - 12 grossly intact 01/16/2019 None Full Exam - General 1994 Psychiatric orientation/consciousness Overall: oriented to person, place and time 01/16/2019 None Full Exam - General 1994 Psychiatric mood and affect Overall: normal mood and affect 01/16/2019 None Full Exam - General 1994 Psychiatric appearance Overall: well-groomed, good eye contact 01/16/2019 None Full Exam - ENT Constitutional general appearance Overall: well nourished 10/12/2018 None Full Exam - ENT Constitutional general appearance Overall: well developed 10/12/2018 None Full Exam - ENT Constitutional general appearance Overall: in no acute distress 10/12/2018 None Full Exam - ENT Ears/Nose/Throat otoscopic exam Overall: external auditory canals normal 10/12/2018 None Full Exam - ENT Ears/Nose/Throat otoscopic exam Left tympanic membrane: air-fluid level 10/12/2018 None Full Exam - ENT Ears/Nose/Throat otoscopic exam Right tympanic membrane: air-fluid level 10/12/2018 None Full Exam - ENT Ears/Nose/Throat nasal mucosa, septum, turbinates Drainage: clear 10/12/2018 None Full Exam - ENT Ears/Nose/Throat nasal mucosa, septum, turbinates Drainage: yellow 10/12/2018 None Full Exam - ENT Ears/Nose/Throat lips/teeth/gingiva Overall: benign lips 10/12/2018 None Full Exam - ENT Ears/Nose/Throat oropharynx Posterior Pharynx: clear post nasal drainage 10/12/2018 None Full Exam - ENT Face and Head palpation Left maxillary sinus: tender 10/12/2018 None Full Exam - ENT Face and Head palpation Right maxillary sinus: tender 10/12/2018 None Full Exam - ENT Respiratory inspection Overall: no retractions 10/12/2018 None Full Exam - ENT Respiratory inspection Overall: normal rate 10/12/2018 None Full Exam - ENT Respiratory auscultation Overall: breath sounds clear bilaterally 10/12/2018 None Full Exam - ENT Cardiovascular auscultation of heart Overall: regular rate 10/12/2018 None Full Exam - ENT Cardiovascular auscultation of heart Overall: normal heart sounds 10/12/2018 None Full Exam - ENT Lymphatic palpation of lymph nodes Overall: anterior cervical chain benign 10/12/2018 None Full Exam - ENT Lymphatic palpation of lymph nodes Overall: posterior cervical chain benign 10/12/2018 None Full Exam - ENT Neurologic mood and affect Overall: normal mood 10/12/2018 None Full Exam - ENT Neurologic mood and affect Overall: normal affect 10/12/2018 None Full Exam - ENT Neurologic orientation Overall: oriented to person, place and time 10/12/2018 None Full Exam - General 1994 Constitutional general appearance Development: appears stated age 1209/06/2018 None Full Exam - General 1994 Constitutional general appearance Overall: well developed 09/06/2018 None Full Exam - General 1994 Constitutional general appearance Overall: in no acute distress 09/06/2018 None Full Exam - General 1994 Constitutional general appearance Overall: well nourished 09/06/2018 None Full Exam - General 1994 Constitutional general appearance Hygiene/Attention to Grooming: good hygiene 09/06/2018 None Full Exam - General 1994 Eyes conjunctiva/eyelids Overall: conjunctiva clear 09/06/2018 None Full Exam - General 1994 Eyes conjunctiva/eyelids Overall: cornea clear 09/06/2018 None Full Exam - General 1994 Eyes conjunctiva/eyelids Overall: eyelids normal 09/06/2018 None Full Exam - General 1994 Eyes conjunctiva/eyelids Eyelid: erythema 09/06/2018 medially - cyst Full Exam - General 1994 Eyes pupils and irises Overall: pupils equal, round, reactive to light and accomodation 09/06/2018 None Full Exam - General 1994 Ears/Nose/Throat otoscopic exam Overall: external auditory canals clear 09/06/2018 None Full Exam - General 1994 Ears/Nose/Throat otoscopic exam Overall: tympanic membranes clear 09/06/2018 None Full Exam - General 1994 Ears/Nose/Throat lips/teeth/gingiva Overall: benign lips 09/06/2018 None Full Exam - General 1995 Ears/Nose/Throat lips/teeth/gingiva Overall: normal dentition 09/06/2018 None Full Exam - General 1995 Ears/Nose/Throat oral cavity/pharynx/larynx Overall: oral mucosa clear 09/06/2018 None Full Exam - General 1995 Ears/Nose/Throat oral cavity/pharynx/larynx Overall: oropharyngeal mucosa clear 09/06/2018 None Full Exam - General 1995 Ears/Nose/Throat oral cavity/pharynx/larynx Overall: hypopharynx benign 09/06/2018 None Full Exam - General 1995 Ears/Nose/Throat oral cavity/pharynx/larynx Overall: no masses 09/06/2018 None Full Exam - General 1994 Ears/Nose/Throat oral cavity/pharynx/larynx Posterior Pharynx: clear post nasal drainage 09/06/2018 None Full Exam - General 1994 Respiratory auscultation Overall: breath sounds clear bilaterally 09/06/2018 None Full Exam - General 1994 Respiratory respiratory effort/rhythm Overall: no retractions 09/06/2018 None Full Exam - General 1994 Respiratory respiratory effort/rhythm Overall: normal rate 09/06/2018 None Full Exam - General 1994 Cardiovascular extremities Overall: no clubbing 09/06/2018 None Full Exam - General 1994 Cardiovascular auscultation of heart Overall: regular rate 09/06/2018 None Full Exam - General 1994 Cardiovascular auscultation of heart Overall: normal heart sounds 09/06/2018 None Full Exam - General 1994 Abdomen abdominal exam Overall: no tenderness 09/06/2018 None Full Exam - General 1994 Abdomen abdominal exam Overall: normal bowel sounds 09/06/2018 None Full Exam - General 1994 Musculoskeletal spine, ribs and pelvis Overall: spine benign 09/06/2018 None Full Exam - General 1994 Musculoskeletal spine, ribs and pelvis Overall: sacroiliac joint benign 09/06/2018 None Full Exam - General 1994 Musculoskeletal spine, ribs and pelvis Overall: good posture 09/06/2018 None Full Exam - General 1994 Musculoskeletal gait and station Overall: normal gait 09/06/2018 None Full Exam - General 1994 Musculoskeletal gait and station Overall: normal station 09/06/2018 None Full Exam - General 1994 Musculoskeletal head and neck Overall: head atraumatic 09/06/2018 None Full Exam - General 1994 Musculoskeletal head and neck Overall: cervical spine benign 09/06/2018 None Full Exam - General 1994 Neurologic cranial nerves Overall: crainial nerves 2 - 12 grossly intact 09/06/2018 None Full Exam - General 1994 Psychiatric orientation/consciousness Overall: oriented to person, place and time 09/06/2018 None Full Exam - General 1994 Psychiatric mood and affect Overall: normal mood and affect 09/06/2018 None Full Exam - General 1994 Psychiatric appearance Overall: well-groomed, good eye contact 09/06/2018 None Full Exam - General 1994 Constitutional general appearance Development: appears stated age 1108/16/2018 None Full Exam - General 1994 Constitutional general appearance Overall: well developed 08/16/2018 None Full Exam - General 1994 Constitutional general appearance Overall: in no acute distress 08/16/2018 None Full Exam - General 1994 Constitutional general appearance Overall: well nourished 08/16/2018 None Full Exam - General 1994 Constitutional general appearance Hygiene/Attention to Grooming: good hygiene 08/16/2018 None Full Exam - General 1994 Eyes conjunctiva/eyelids Overall: conjunctiva clear 08/16/2018 None Full Exam - General 1994 Eyes conjunctiva/eyelids Overall: cornea clear 08/16/2018 None Full Exam - General 1994 Eyes conjunctiva/eyelids Overall: eyelids normal 08/16/2018 None Full Exam - General 1994 Eyes conjunctiva/eyelids Eyelid: erythema 08/16/2018 medially - cyst Full Exam - General 1994 Eyes pupils and irises Overall: pupils equal, round, reactive to light and accomodation 08/16/2018 None Full Exam - General 1994 Ears/Nose/Throat otoscopic exam Overall: external auditory canals clear 08/16/2018 None Full Exam - General 1994 Ears/Nose/Throat otoscopic exam Overall: tympanic membranes clear 08/16/2018 None Full Exam - General 1994 Ears/Nose/Throat lips/teeth/gingiva Overall: benign lips 08/16/2018 None Full Exam - General 1994 Ears/Nose/Throat lips/teeth/gingiva Overall: normal dentition 08/16/2018 None Full Exam - General 1994 Ears/Nose/Throat oral cavity/pharynx/larynx Overall: oral mucosa clear 08/16/2018 None Full Exam - General 1994 Ears/Nose/Throat oral cavity/pharynx/larynx Overall: oropharyngeal mucosa clear 08/16/2018 None Full Exam - General 1994 Ears/Nose/Throat oral cavity/pharynx/larynx Overall: hypopharynx benign 08/16/2018 None Full Exam - General 1994 Ears/Nose/Throat oral cavity/pharynx/larynx Overall: no masses 08/16/2018 None Full Exam - General 1994 Ears/Nose/Throat oral cavity/pharynx/larynx Posterior Pharynx: clear post nasal drainage 08/16/2018 None Full Exam - General 1994 Respiratory auscultation Overall: breath sounds clear bilaterally 08/16/2018 None Full Exam - General 1994 Respiratory respiratory effort/rhythm Overall: no retractions 08/16/2018 None Full Exam - General 1994 Respiratory respiratory effort/rhythm Overall: normal rate 08/16/2018 None Full Exam - General 1994 Cardiovascular extremities Overall: no clubbing 08/16/2018 None Full Exam - General 1994 Cardiovascular auscultation of heart Overall: regular rate 08/16/2018 None Full Exam - General 1994 Cardiovascular auscultation of heart Overall: normal heart sounds 08/16/2018 None Full Exam - General 1994 Cardiovascular auscultation of heart Rate: bradycardia 08/16/2018 None Full Exam - General 1994 Abdomen abdominal exam Overall: no tenderness 08/16/2018 None Full Exam - General 1994 Abdomen abdominal exam Overall: normal bowel sounds 08/16/2018 None Full Exam - General 1994 Musculoskeletal lower extremity Palpation - foot: tender 08/16/2018 over lateral left foot at 5th metatarsal Full Exam - General 1994 Musculoskeletal spine, ribs and pelvis Overall: spine benign 08/16/2018 None Full Exam - General 1994 Musculoskeletal spine, ribs and pelvis Overall: sacroiliac joint benign 08/16/2018 None Full Exam - General 1994 Musculoskeletal spine, ribs and pelvis Overall: good posture 08/16/2018 None Full Exam - General 1994 Musculoskeletal gait and station Overall: normal gait 08/16/2018 None Full Exam - General 1994 Musculoskeletal gait and station Overall: normal station 08/16/2018 None Full Exam - General 1994 Musculoskeletal head and neck Overall: head atraumatic 08/16/2018 None Full Exam - General 1994 Musculoskeletal head and neck Overall: cervical spine benign 08/16/2018 None Full Exam - General 1994 Neurologic cranial nerves Overall: crainial nerves 2 - 12 grossly intact 08/16/2018 None Full Exam - General 1994 Psychiatric orientation/consciousness Overall: oriented to person, place and time 08/16/2018 None Full Exam - General 1994 Psychiatric mood and affect Overall: normal mood and affect 08/16/2018 None Full Exam - General 1994 Psychiatric appearance Overall: well-groomed, good eye contact 08/16/2018 None Full Exam - General 1994 Integument inspection of skin Location: left foot 08/16/2018 lateral foot scar Full Exam - General 1994 Constitutional general appearance Overall: well developed 04/12/2018 None Full Exam - General 1994 Constitutional general appearance Overall: in no acute distress 04/12/2018 None Full Exam - General 1994 Constitutional general appearance Overall: well nourished 04/12/2018 None Full Exam - General 1994 Eyes conjunctiva/eyelids Overall: conjunctiva clear 04/12/2018 None Full Exam - General 1994 Eyes conjunctiva/eyelids Overall: eyelids normal 04/12/2018 None Full Exam - General 1994 Eyes pupils and irises Overall: pupils equal, round, reactive to light and accomodation 04/12/2018 None Full Exam - General 1994 Ears/Nose/Throat otoscopic exam Overall: external auditory canals clear 04/12/2018 None Full Exam - General 1994 Ears/Nose/Throat otoscopic exam Overall: tympanic membranes clear 04/12/2018 None Full Exam - General 1994 Ears/Nose/Throat lips/teeth/gingiva Overall: benign lips 04/12/2018 None Full Exam - General 1994 Ears/Nose/Throat oral cavity/pharynx/larynx Overall: oral mucosa clear 04/12/2018 None Full Exam - General 1994 Ears/Nose/Throat oral cavity/pharynx/larynx Posterior Pharynx: clear post nasal drainage 04/12/2018 None Full Exam - General 1994 Respiratory auscultation Overall: breath sounds clear bilaterally 04/12/2018 None Full Exam - General 1994 Respiratory respiratory effort/rhythm Overall: no retractions 04/12/2018 None Full Exam - General 1994 Respiratory respiratory effort/rhythm Overall: normal rate 04/12/2018 None Full Exam - General 1994 Cardiovascular auscultation of heart Overall: normal heart sounds 04/12/2018 None Full Exam - General 1994 Cardiovascular auscultation of heart Rate: bradycardia 04/12/2018 None Full Exam - General 1994 Abdomen abdominal exam Overall: no tenderness 04/12/2018 None Full Exam - General 1994 Abdomen abdominal exam Overall: normal bowel sounds 04/12/2018 None Full Exam - General 1994 Musculoskeletal gait and station Overall: normal gait 04/12/2018 None Full Exam - General 1994 Musculoskeletal gait and station Overall: normal station 04/12/2018 None Full Exam - General 1994 Musculoskeletal head and neck Overall: head atraumatic 04/12/2018 None Full Exam - General 1994 Neurologic cranial nerves Overall: crainial nerves 2 - 12 grossly intact 04/12/2018 None Full Exam - General 1994 Psychiatric orientation/consciousness Overall: oriented to person, place and time 04/12/2018 None Full Exam - General 1994 Psychiatric mood and affect Overall: normal mood and affect 04/12/2018 None Full Exam - General 1994 Psychiatric appearance Overall: well-groomed, good eye contact 04/12/2018 None Full Exam - General 1994 Constitutional general appearance Development: appears stated age 0704/12/2018 None Full Exam - General 1994 Constitutional general appearance Hygiene/Attention to Grooming: good hygiene 04/12/2018 None Full Exam - General 1994 Eyes conjunctiva/eyelids Overall: cornea clear 04/12/2018 None Full Exam - General 1994 Eyes conjunctiva/eyelids Eyelid: erythema 04/12/2018 medially - cyst Full Exam - General 1994 Ears/Nose/Throat lips/teeth/gingiva Overall: normal dentition 04/12/2018 None Full Exam - General 1994 Ears/Nose/Throat oral cavity/pharynx/larynx Overall: oropharyngeal mucosa clear 04/12/2018 None Full Exam - General 1994 Ears/Nose/Throat oral cavity/pharynx/larynx Overall: hypopharynx benign 04/12/2018 None Full Exam - General 1994 Ears/Nose/Throat oral cavity/pharynx/larynx Overall: no masses 04/12/2018 None Full Exam - General 1994 Cardiovascular extremities Overall: no clubbing 04/12/2018 None Full Exam - General 1994 Cardiovascular auscultation of heart Overall: regular rate 04/12/2018 None Full Exam - General 1994 Musculoskeletal lower extremity Palpation - foot: tender 04/12/2018 over lateral left foot at 5th metatarsal Full Exam - General 1994 Musculoskeletal spine, ribs and pelvis Overall: spine benign 04/12/2018 None Full Exam - General 1994 Musculoskeletal spine, ribs and pelvis Overall: sacroiliac joint benign 04/12/2018 None Full Exam - General 1994 Musculoskeletal spine, ribs and pelvis Overall: good posture 04/12/2018 None Full Exam - General 1994 Musculoskeletal head and neck Overall: cervical spine benign 04/12/2018 None Full Exam - General 1994 Constitutional general appearance Overall: well developed 01/20/2018 None Full Exam - General 1994 Constitutional general appearance Overall: in no acute distress 01/20/2018 None Full Exam - General 1994 Constitutional general appearance Overall: well nourished 01/20/2018 None Full Exam - General 1994 Eyes conjunctiva/eyelids Overall: conjunctiva clear 01/20/2018 None Full Exam - General 1994 Eyes conjunctiva/eyelids Overall: eyelids normal 01/20/2018 None Full Exam - General 1994 Eyes pupils and irises Overall: pupils equal, round, reactive to light and accomodation 01/20/2018 None Full Exam - General 1994 Ears/Nose/Throat otoscopic exam Overall: external auditory canals clear 01/20/2018 None Full Exam - General 1994 Ears/Nose/Throat otoscopic exam Tympanic membrane: air-fluid level 01/20/2018 None Full Exam - General 1994 Ears/Nose/Throat lips/teeth/gingiva Overall: benign lips 01/20/2018 None Full Exam - General 1994 Ears/Nose/Throat oral cavity/pharynx/larynx Overall: oral mucosa clear 01/20/2018 None Full Exam - General 1994 Ears/Nose/Throat oral cavity/pharynx/larynx Posterior Pharynx: clear post nasal drainage 01/20/2018 None Full Exam - General 1994 Respiratory auscultation Overall: breath sounds clear bilaterally 01/20/2018 None Full Exam - General 1994 Respiratory respiratory effort/rhythm Overall: no retractions 01/20/2018 None Full Exam - General 1994 Respiratory respiratory effort/rhythm Overall: normal rate 01/20/2018 None Full Exam - General 1994 Cardiovascular auscultation of heart Overall: normal heart sounds 01/20/2018 None Full Exam - General 1994 Cardiovascular auscultation of heart Rate: bradycardia 01/20/2018 None Full Exam - General 1994 Abdomen abdominal exam Overall: no tenderness 01/20/2018 None Full Exam - General 1994 Abdomen abdominal exam Overall: normal bowel sounds 01/20/2018 None Full Exam - General 1994 Musculoskeletal gait and station Overall: normal gait 01/20/2018 None Full Exam - General 1994 Musculoskeletal gait and station Overall: normal station 01/20/2018 None Full Exam - General 1994 Musculoskeletal head and neck Overall: head atraumatic 01/20/2018 None Full Exam - General 1994 Neurologic cranial nerves Overall: crainial nerves 2 - 12 grossly intact 01/20/2018 None Full Exam - General 1994 Psychiatric orientation/consciousness Overall: oriented to person, place and time 01/20/2018 None Full Exam - General 1994 Psychiatric mood and affect Overall: normal mood and affect 01/20/2018 None Full Exam - General 1994 Psychiatric appearance Overall: well-groomed, good eye contact 01/20/2018 None Full Exam - General 1994 Constitutional general appearance Overall: well developed 12/29/2017 None Full Exam - General 1994 Constitutional general appearance Overall: in no acute distress 12/29/2017 None Full Exam - General 1994 Constitutional general appearance Overall: well nourished 12/29/2017 None Full Exam - General 1994 Eyes conjunctiva/eyelids Overall: conjunctiva clear 12/29/2017 None Full Exam - General 1994 Eyes conjunctiva/eyelids Overall: eyelids normal 12/29/2017 None Full Exam - General 1994 Eyes pupils and irises Overall: pupils equal, round, reactive to light and accomodation 12/29/2017 None Full Exam - General 1994 Ears/Nose/Throat otoscopic exam Overall: external auditory canals clear 12/29/2017 None Full Exam - General 1994 Ears/Nose/Throat otoscopic exam Overall: tympanic membranes clear 12/29/2017 None Full Exam - General 1994 Ears/Nose/Throat lips/teeth/gingiva Overall: benign lips 12/29/2017 None Full Exam - General 1994 Ears/Nose/Throat oral cavity/pharynx/larynx Overall: oral mucosa clear 12/29/2017 None Full Exam - General 1994 Ears/Nose/Throat oral cavity/pharynx/larynx Posterior Pharynx: clear post nasal drainage 12/29/2017 None Full Exam - General 1994 Respiratory auscultation Overall: breath sounds clear bilaterally 12/29/2017 None Full Exam - General 1994 Respiratory respiratory effort/rhythm Overall: no retractions 12/29/2017 None Full Exam - General 1994 Respiratory respiratory effort/rhythm Overall: normal rate 12/29/2017 None Full Exam - General 1994 Cardiovascular auscultation of heart Overall: normal heart sounds 12/29/2017 None Full Exam - General 1994 Cardiovascular auscultation of heart Rate: bradycardia 12/29/2017 None Full Exam - General 1994 Abdomen abdominal exam Overall: no tenderness 12/29/2017 None Full Exam - General 1994 Abdomen abdominal exam Overall: normal bowel sounds 12/29/2017 None Full Exam - General 1994 Musculoskeletal gait and station Overall: normal gait 12/29/2017 None Full Exam - General 1994 Musculoskeletal gait and station Overall: normal station 12/29/2017 None Full Exam - General 1994 Musculoskeletal head and neck Overall: head atraumatic 12/29/2017 None Full Exam - General 1994 Neurologic cranial nerves Overall: crainial nerves 2 - 12 grossly intact 12/29/2017 None Full Exam - General 1994 Psychiatric orientation/consciousness Overall: oriented to person, place and time 12/29/2017 None Full Exam - General 1994 Psychiatric mood and affect Overall: normal mood and affect 12/29/2017 None Full Exam - General 1994 Psychiatric appearance Overall: well-groomed, good eye contact 12/29/2017 None Full Exam - General 1994 Constitutional general appearance Development: well developed 08/24/2017 None Full Exam - General 1994 Constitutional general appearance Development: appears stated age 1108/24/2017 None Full Exam - General 1994 Constitutional general appearance Hygiene/Attention to Grooming: good hygiene 08/24/2017 None Full Exam - General 1994 Eyes conjunctiva/eyelids Overall: conjunctiva clear 08/24/2017 None Full Exam - General 1994 Eyes conjunctiva/eyelids Overall: cornea clear 08/24/2017 None Full Exam - General 1994 Eyes pupils and irises Overall: pupils equal, round, reactive to light and accomodation 08/24/2017 None Full Exam - General 1994 Ears/Nose/Throat otoscopic exam Overall: external auditory canals clear 08/24/2017 None Full Exam - General 1994 Ears/Nose/Throat otoscopic exam Overall: tympanic membranes clear 08/24/2017 None Full Exam - General 1994 Ears/Nose/Throat lips/teeth/gingiva Overall: benign lips 08/24/2017 None Full Exam - General 1994 Ears/Nose/Throat lips/teeth/gingiva Overall: normal dentition 08/24/2017 None Full Exam - General 1994 Ears/Nose/Throat oral cavity/pharynx/larynx Overall: oral mucosa clear 08/24/2017 None Full Exam - General 1994 Ears/Nose/Throat oral cavity/pharynx/larynx Overall: oropharyngeal mucosa clear 08/24/2017 None Full Exam - General 1994 Ears/Nose/Throat oral cavity/pharynx/larynx Overall: hypopharynx benign 08/24/2017 None Full Exam - General 1994 Ears/Nose/Throat oral cavity/pharynx/larynx Overall: no masses 08/24/2017 None Full Exam - General 1994 Respiratory auscultation Overall: breath sounds clear bilaterally 08/24/2017 None Full Exam - General 1994 Respiratory respiratory effort/rhythm Overall: no retractions 08/24/2017 None Full Exam - General 1994 Respiratory respiratory effort/rhythm Overall: normal rate 08/24/2017 None Full Exam - General 1994 Cardiovascular extremities Overall: no clubbing 08/24/2017 None Full Exam - General 1994 Cardiovascular auscultation of heart Overall: regular rate 08/24/2017 None Full Exam - General 1994 Cardiovascular auscultation of heart Overall: normal heart sounds 08/24/2017 None Full Exam - General 1994 Musculoskeletal spine, ribs and pelvis Overall: spine benign 08/24/2017 None Full Exam - General 1994 Musculoskeletal spine, ribs and pelvis Overall: sacroiliac joint benign 08/24/2017 None Full Exam - General 1994 Musculoskeletal spine, ribs and pelvis Overall: good posture 08/24/2017 None Full Exam - General 1994 Musculoskeletal head and neck Overall: head atraumatic 08/24/2017 None Full Exam - General 1994 Musculoskeletal head and neck Overall: cervical spine benign 08/24/2017 None Full Exam - General 1994 Psychiatric orientation/consciousness Overall: oriented to person, place and time 08/24/2017 None Full Exam - General 1994 Psychiatric mood and affect Overall: normal mood and affect 08/24/2017 None Full Exam - General 1994 Eyes conjunctiva/eyelids Eyelid: erythema 08/24/2017 medially - cyst Full Exam - General 1994 Musculoskeletal lower extremity Palpation - foot: tender 08/24/2017 over lateral left foot at 5th metatarsal Full Exam - General 1994 Constitutional general appearance Development: well developed 07/26/2017 None Full Exam - General 1994 Constitutional general appearance Development: appears stated age 1007/26/2017 None Full Exam - General 1994 Constitutional general appearance Hygiene/Attention to Grooming: good hygiene 07/26/2017 None Full Exam - General 1994 Eyes conjunctiva/eyelids Overall: conjunctiva clear 07/26/2017 None Full Exam - General 1994 Eyes conjunctiva/eyelids Overall: cornea clear 07/26/2017 None Full Exam - General 1994 Eyes conjunctiva/eyelids Overall: eyelids normal 07/26/2017 None Full Exam - General 1994 Eyes pupils and irises Overall: pupils equal, round, reactive to light and accomodation 07/26/2017 None Full Exam - General 1994 Ears/Nose/Throat otoscopic exam Overall: external auditory canals clear 07/26/2017 None Full Exam - General 1994 Ears/Nose/Throat otoscopic exam Overall: tympanic membranes clear 07/26/2017 None Full Exam - General 1994 Ears/Nose/Throat lips/teeth/gingiva Overall: benign lips 07/26/2017 None Full Exam - General 1994 Ears/Nose/Throat lips/teeth/gingiva Overall: normal dentition 07/26/2017 None Full Exam - General 1994 Ears/Nose/Throat oral cavity/pharynx/larynx Overall: oral mucosa clear 07/26/2017 None Full Exam - General 1994 Ears/Nose/Throat oral cavity/pharynx/larynx Overall: oropharyngeal mucosa clear 07/26/2017 None Full Exam - General 1994 Ears/Nose/Throat oral cavity/pharynx/larynx Overall: hypopharynx benign 07/26/2017 None Full Exam - General 1994 Ears/Nose/Throat oral cavity/pharynx/larynx Overall: no masses 07/26/2017 None Full Exam - General 1994 Respiratory auscultation Overall: breath sounds clear bilaterally 07/26/2017 None Full Exam - General 1994 Respiratory respiratory effort/rhythm Overall: no retractions 07/26/2017 None Full Exam - General 1994 Respiratory respiratory effort/rhythm Overall: normal rate 07/26/2017 None Full Exam - General 1994 Cardiovascular extremities Overall: no clubbing 07/26/2017 None Full Exam - General 1994 Cardiovascular auscultation of heart Overall: regular rate 07/26/2017 None Full Exam - General 1994 Cardiovascular auscultation of heart Overall: normal heart sounds 07/26/2017 None Full Exam - General 1994 Musculoskeletal spine, ribs and pelvis Overall: spine benign 07/26/2017 None Full Exam - General 1994 Musculoskeletal spine, ribs and pelvis Overall: sacroiliac joint benign 07/26/2017 None Full Exam - General 1994 Musculoskeletal spine, ribs and pelvis Overall: good posture 07/26/2017 None Full Exam - General 1994 Musculoskeletal head and neck Overall: head atraumatic 07/26/2017 None Full Exam - General 1994 Musculoskeletal head and neck Overall: cervical spine benign 07/26/2017 None Full Exam - General 1994 Psychiatric orientation/consciousness Overall: oriented to person, place and time 07/26/2017 None Full Exam - General 1994 Psychiatric mood and affect Overall: normal mood and affect 07/26/2017 None Full Exam - ENT Constitutional general appearance Overall: well nourished 05/27/2017 None Full Exam - ENT Constitutional general appearance Overall: well developed 05/27/2017 None Full Exam - ENT Constitutional general appearance Overall: in no acute distress 05/27/2017 None Full Exam - ENT Ears/Nose/Throat otoscopic exam Overall: external auditory canals normal 05/27/2017 None Full Exam - ENT Ears/Nose/Throat otoscopic exam Left tympanic membrane: air-fluid level 05/27/2017 5 O'Clock area Full Exam - ENT Ears/Nose/Throat otoscopic exam Right tympanic membrane: air-fluid level 05/27/2017 7 O'Clock area Full Exam - ENT Ears/Nose/Throat lips/teeth/gingiva Overall: benign lips 05/27/2017 None Full Exam - ENT Ears/Nose/Throat oropharynx Overall: oral mucosa clear 05/27/2017 None Full Exam - ENT Respiratory auscultation Overall: breath sounds clear bilaterally 05/27/2017 None Full Exam - ENT Respiratory inspection Overall: normal rate 05/27/2017 None Full Exam - ENT Respiratory inspection Overall: no retractions 05/27/2017 None Full Exam - ENT Cardiovascular auscultation of heart Overall: regular rate 05/27/2017 None Full Exam - ENT Cardiovascular auscultation of heart Overall: normal heart sounds 05/27/2017 None Full Exam - ENT Musculoskeletal head and neck Overall: head atraumatic 05/27/2017 None Full Exam - ENT Neurologic mood and affect Overall: normal mood 05/27/2017 None Full Exam - ENT Neurologic mood and affect Overall: normal affect 05/27/2017 None Full Exam - ENT Neurologic orientation Overall: oriented to person, place and time 05/27/2017 None Full Exam - General 1994 Constitutional general appearance Overall: well developed 05/03/2017 None Full Exam - General 1994 Constitutional general appearance Overall: in no acute distress 05/03/2017 None Full Exam - General 1994 Constitutional general appearance Overall: well nourished 05/03/2017 None Full Exam - General 1994 Eyes conjunctiva/eyelids Overall: conjunctiva clear 05/03/2017 None Full Exam - General 1994 Eyes conjunctiva/eyelids Overall: eyelids normal 05/03/2017 None Full Exam - General 1994 Eyes pupils and irises Overall: pupils equal, round, reactive to light and accomodation 05/03/2017 None Full Exam - General 1994 Ears/Nose/Throat otoscopic exam Overall: external auditory canals clear 05/03/2017 None Full Exam - General 1994 Ears/Nose/Throat lips/teeth/gingiva Overall: benign lips 05/03/2017 None Full Exam - General 1994 Ears/Nose/Throat oral cavity/pharynx/larynx Overall: oral mucosa clear 05/03/2017 None Full Exam - General 1994 Ears/Nose/Throat oral cavity/pharynx/larynx Posterior Pharynx: clear post nasal drainage 05/03/2017 None Full Exam - General 1994 Respiratory auscultation Overall: breath sounds clear bilaterally 05/03/2017 None Full Exam - General 1994 Respiratory respiratory effort/rhythm Overall: no retractions 05/03/2017 None Full Exam - General 1994 Respiratory respiratory effort/rhythm Overall: normal rate 05/03/2017 None Full Exam - General 1994 Cardiovascular auscultation of heart Overall: normal heart sounds 05/03/2017 None Full Exam - General 1994 Cardiovascular auscultation of heart Rate: bradycardia 05/03/2017 None Full Exam - General 1994 Abdomen abdominal exam Overall: no tenderness 05/03/2017 None Full Exam - General 1994 Abdomen abdominal exam Overall: normal bowel sounds 05/03/2017 None Full Exam - General 1994 Musculoskeletal gait and station Overall: normal gait 05/03/2017 None Full Exam - General 1994 Musculoskeletal gait and station Overall: normal station 05/03/2017 None Full Exam - General 1994 Musculoskeletal head and neck Overall: head atraumatic 05/03/2017 None Full Exam - General 1994 Neurologic cranial nerves Overall: crainial nerves 2 - 12 grossly intact 05/03/2017 None Full Exam - General 1994 Psychiatric orientation/consciousness Overall: oriented to person, place and time 05/03/2017 None Full Exam - General 1994 Psychiatric mood and affect Overall: normal mood and affect 05/03/2017 None Full Exam - General 1994 Psychiatric appearance Overall: well-groomed, good eye contact 05/03/2017 None Full Exam - General 1994 Ears/Nose/Throat otoscopic exam Tympanic membrane: air-fluid level 05/03/2017 None Full Exam - General 1994 Constitutional general appearance Overall: well developed 04/15/2017 None Full Exam - General 1994 Constitutional general appearance Overall: in no acute distress 04/15/2017 None Full Exam - General 1994 Constitutional general appearance Overall: well nourished 04/15/2017 None Full Exam - General 1994 Eyes conjunctiva/eyelids Overall: conjunctiva clear 04/15/2017 None Full Exam - General 1994 Eyes conjunctiva/eyelids Overall: eyelids normal 04/15/2017 None Full Exam - General 1994 Eyes pupils and irises Overall: pupils equal, round, reactive to light and accomodation 04/15/2017 None Full Exam - General 1994 Ears/Nose/Throat lips/teeth/gingiva Overall: benign lips 04/15/2017 None Full Exam - General 1994 Ears/Nose/Throat oral cavity/pharynx/larynx Overall: oral mucosa clear 04/15/2017 None Full Exam - General 1994 Ears/Nose/Throat oral cavity/pharynx/larynx Posterior Pharynx: clear post nasal drainage 04/15/2017 None Full Exam - General 1994 Ears/Nose/Throat otoscopic exam Overall: external auditory canals clear 04/15/2017 None Full Exam - General 1994 Ears/Nose/Throat otoscopic exam Overall: tympanic membranes clear 04/15/2017 None Full Exam - General 1994 Respiratory auscultation Overall: breath sounds clear bilaterally 04/15/2017 None Full Exam - General 1994 Respiratory respiratory effort/rhythm Overall: no retractions 04/15/2017 None Full Exam - General 1994 Respiratory respiratory effort/rhythm Overall: normal rate 04/15/2017 None Full Exam - General 1994 Abdomen abdominal exam Overall: no tenderness 04/15/2017 None Full Exam - General 1994 Abdomen abdominal exam Overall: normal bowel sounds 04/15/2017 None Full Exam - General 1994 Musculoskeletal head and neck Overall: head atraumatic 04/15/2017 None Full Exam - General 1994 Musculoskeletal gait and station Overall: normal gait 04/15/2017 None Full Exam - General 1994 Musculoskeletal gait and station Overall: normal station 04/15/2017 None Full Exam - General 1994 Neurologic cranial nerves Overall: crainial nerves 2 - 12 grossly intact 04/15/2017 None Full Exam - General 1994 Psychiatric orientation/consciousness Overall: oriented to person, place and time 04/15/2017 None Full Exam - General 1994 Psychiatric mood and affect Overall: normal mood and affect 04/15/2017 None Full Exam - General 1994 Psychiatric appearance Overall: well-groomed, good eye contact 04/15/2017 None Full Exam - General 1994 Cardiovascular auscultation of heart Overall: normal heart sounds 04/15/2017 None Full Exam - General 1994 Cardiovascular auscultation of heart Rate: bradycardia 04/15/2017 None Full Exam - General 1994 Constitutional general appearance Overall: well developed 03/30/2017 None Full Exam - General 1994 Constitutional general appearance Overall: in no acute distress 03/30/2017 None Full Exam - General 1994 Constitutional general appearance Overall: well nourished 03/30/2017 None Full Exam - General 1994 Eyes conjunctiva/eyelids Overall: conjunctiva clear 03/30/2017 None Full Exam - General 1994 Eyes conjunctiva/eyelids Overall: eyelids normal 03/30/2017 None Full Exam - General 1994 Ears/Nose/Throat lips/teeth/gingiva Overall: benign lips 03/30/2017 None Full Exam - General 1994 Respiratory respiratory effort/rhythm Overall: no retractions 03/30/2017 None Full Exam - General 1994 Respiratory respiratory effort/rhythm Overall: normal rate 03/30/2017 None Full Exam - General 1994 Ears/Nose/Throat otoscopic exam Tympanic membrane: air-fluid level 03/30/2017 None Full Exam - General 1994 Ears/Nose/Throat otoscopic exam External auditory canal: minimal cerumen 03/30/2017 None Full Exam - General 1994 Ears/Nose/Throat oral cavity/pharynx/larynx Overall: oral mucosa clear 03/30/2017 None Full Exam - General 1994 Cardiovascular extremities Overall: no clubbing 03/30/2017 None Full Exam - General 1994 Musculoskeletal head and neck Overall: head atraumatic 03/30/2017 None Full Exam - General 1994 Neurologic cranial nerves Overall: crainial nerves 2 - 12 grossly intact 03/30/2017 None Full Exam - General 1994 Psychiatric orientation/consciousness Overall: oriented to person, place and time 03/30/2017 None Full Exam - General 1994 Psychiatric mood and affect Overall: normal mood and affect 03/30/2017 None Full Exam - ENT Constitutional general appearance Overall: well nourished 03/16/2017 None Full Exam - ENT Constitutional general appearance Overall: well developed 03/16/2017 None Full Exam - ENT Constitutional general appearance Overall: in no acute distress 03/16/2017 None Full Exam - ENT Ears/Nose/Throat otoscopic exam Overall: external auditory canals normal 03/16/2017 None Full Exam - ENT Ears/Nose/Throat otoscopic exam Left tympanic membrane: bulging 03/16/2017 None Full Exam - ENT Ears/Nose/Throat lips/teeth/gingiva Overall: benign lips 03/16/2017 None Full Exam - ENT Ears/Nose/Throat oropharynx Overall: oral mucosa clear 03/16/2017 None Full Exam - ENT Ears/Nose/Throat oropharynx Posterior Pharynx: clear post nasal drainage 03/16/2017 None Full Exam - ENT Face and Head palpation Left maxillary sinus: tender 03/16/2017 None Full Exam - ENT Face and Head palpation Right maxillary sinus: tender 03/16/2017 None Full Exam - ENT Respiratory inspection Overall: no retractions 03/16/2017 None Full Exam - ENT Respiratory inspection Overall: normal rate 03/16/2017 None Full Exam - ENT Respiratory auscultation Overall: breath sounds clear bilaterally 03/16/2017 None Full Exam - ENT Cardiovascular auscultation of heart Overall: regular rate 03/16/2017 None Full Exam - ENT Cardiovascular auscultation of heart Overall: normal heart sounds 03/16/2017 None Full Exam - ENT Abdomen abdominal exam Overall: normal bowel sounds 03/16/2017 None Full Exam - ENT Lymphatic palpation of lymph nodes Overall: anterior cervical chain benign 03/16/2017 None Full Exam - ENT Lymphatic palpation of lymph nodes Overall: posterior cervical chain benign 03/16/2017 None Full Exam - ENT Musculoskeletal head and neck Overall: head atraumatic 03/16/2017 None Full Exam - ENT Integument inspection of skin Overall: no rash, lesions 03/16/2017 None Full Exam - ENT Neurologic mood and affect Overall: normal mood 03/16/2017 None Full Exam - ENT Neurologic mood and affect Overall: normal affect 03/16/2017 None Full Exam - ENT Neurologic orientation Overall: oriented to person, place and time 03/16/2017 None Full Exam - ENT Neurologic cranial nerves/coordination Overall: cranial nerves 2-12 grossly intact 03/16/2017 None Full Exam - ENT Ears/Nose/Throat otoscopic exam Left tympanic membrane: air-fluid level 03/16/2017 None Full Exam - ENT Ears/Nose/Throat otoscopic exam Right tympanic membrane: air-fluid level 03/16/2017 None Full Exam - ENT Ears/Nose/Throat otoscopic exam Right tympanic membrane: bulging 03/16/2017 None Full Exam - ENT Constitutional general appearance Overall: well nourished 03/12/2017 None Full Exam - ENT Constitutional general appearance Overall: well developed 03/12/2017 None Full Exam - ENT Constitutional general appearance Overall: in no acute distress 03/12/2017 None Full Exam - ENT Ears/Nose/Throat otoscopic exam Overall: external auditory canals normal 03/12/2017 None Full Exam - ENT Ears/Nose/Throat otoscopic exam Left tympanic membrane: bulging 03/12/2017 None Full Exam - ENT Ears/Nose/Throat otoscopic exam Left tympanic membrane: erythematous 03/12/2017 None Full Exam - ENT Ears/Nose/Throat otoscopic exam Right tympanic membrane: erythematous 03/12/2017 None Full Exam - ENT Ears/Nose/Throat lips/teeth/gingiva Overall: benign lips 03/12/2017 None Full Exam - ENT Ears/Nose/Throat oropharynx Overall: oral mucosa clear 03/12/2017 None Full Exam - ENT Ears/Nose/Throat oropharynx Posterior Pharynx: clear post nasal drainage 03/12/2017 None Full Exam - ENT Face and Head palpation Left maxillary sinus: tender 03/12/2017 None Full Exam - ENT Face and Head palpation Right maxillary sinus: tender 03/12/2017 None Full Exam - ENT Respiratory auscultation Overall: breath sounds clear bilaterally 03/12/2017 None Full Exam - ENT Respiratory inspection Overall: no retractions 03/12/2017 None Full Exam - ENT Respiratory inspection Overall: normal rate 03/12/2017 None Full Exam - ENT Cardiovascular auscultation of heart Overall: regular rate 03/12/2017 None Full Exam - ENT Cardiovascular auscultation of heart Overall: normal heart sounds 03/12/2017 None Full Exam - ENT Abdomen abdominal exam Overall: normal bowel sounds 03/12/2017 None Full Exam - ENT Lymphatic palpation of lymph nodes Overall: posterior cervical chain benign 03/12/2017 None Full Exam - ENT Lymphatic palpation of lymph nodes Overall: anterior cervical chain benign 03/12/2017 None Full Exam - ENT Musculoskeletal head and neck Overall: head atraumatic 03/12/2017 None Full Exam - ENT Integument inspection of skin Overall: no rash, lesions 03/12/2017 None Full Exam - ENT Neurologic mood and affect Overall: normal mood 03/12/2017 None Full Exam - ENT Neurologic mood and affect Overall: normal affect 03/12/2017 None Full Exam - ENT Neurologic orientation Overall: oriented to person, place and time 03/12/2017 None Full Exam - ENT Neurologic cranial nerves/coordination Overall: cranial nerves 2-12 grossly intact 03/12/2017 None Full Exam - General 1994 Constitutional general appearance Development: well developed 02/17/2017 None Full Exam - General 1994 Constitutional general appearance Development: appears stated age 0502/17/2017 None Full Exam - General 1994 Constitutional general appearance Hygiene/Attention to Grooming: good hygiene 02/17/2017 None Full Exam - General 1994 Eyes conjunctiva/eyelids Overall: conjunctiva clear 02/17/2017 None Full Exam - General 1994 Eyes conjunctiva/eyelids Overall: cornea clear 02/17/2017 None Full Exam - General 1994 Eyes conjunctiva/eyelids Overall: eyelids normal 02/17/2017 None Full Exam - General 1994 Eyes pupils and irises Overall: pupils equal, round, reactive to light and accomodation 02/17/2017 None Full Exam - General 1994 Ears/Nose/Throat otoscopic exam Overall: external auditory canals clear 02/17/2017 None Full Exam - General 1994 Ears/Nose/Throat otoscopic exam Overall: tympanic membranes clear 02/17/2017 None Full Exam - General 1994 Ears/Nose/Throat lips/teeth/gingiva Overall: benign lips 02/17/2017 None Full Exam - General 1994 Ears/Nose/Throat lips/teeth/gingiva Overall: normal dentition 02/17/2017 None Full Exam - General 1994 Ears/Nose/Throat oral cavity/pharynx/larynx Overall: oral mucosa clear 02/17/2017 None Full Exam - General 1994 Ears/Nose/Throat oral cavity/pharynx/larynx Overall: oropharyngeal mucosa clear 02/17/2017 None Full Exam - General 1994 Ears/Nose/Throat oral cavity/pharynx/larynx Overall: hypopharynx benign 02/17/2017 None Full Exam - General 1994 Ears/Nose/Throat oral cavity/pharynx/larynx Overall: no masses 02/17/2017 None Full Exam - General 1994 Respiratory auscultation Overall: breath sounds clear bilaterally 02/17/2017 None Full Exam - General 1994 Respiratory respiratory effort/rhythm Overall: no retractions 02/17/2017 None Full Exam - General 1994 Respiratory respiratory effort/rhythm Overall: normal rate 02/17/2017 None Full Exam - General 1994 Cardiovascular extremities Overall: no clubbing 02/17/2017 None Full Exam - General 1994 Cardiovascular auscultation of heart Overall: regular rate 02/17/2017 None Full Exam - General 1994 Cardiovascular auscultation of heart Overall: normal heart sounds 02/17/2017 None Full Exam - General 1994 Musculoskeletal spine, ribs and pelvis Overall: spine benign 02/17/2017 None Full Exam - General 1994 Musculoskeletal spine, ribs and pelvis Overall: sacroiliac joint benign 02/17/2017 None Full Exam - General 1994 Musculoskeletal spine, ribs and pelvis Overall: good posture 02/17/2017 None Full Exam - General 1994 Musculoskeletal head and neck Overall: head atraumatic 02/17/2017 None Full Exam - General 1994 Musculoskeletal head and neck Overall: cervical spine benign 02/17/2017 None Full Exam - General 1994 Integument inspection of skin Overall: few scattered moles, no gross abnormalities 02/17/2017 None Full Exam - General 1994 Neurologic deep tendon reflexes Overall: deep tendon reflexes intact 02/17/2017 None Full Exam - General 1994 Neurologic cranial nerves Overall: crainial nerves 2 - 12 grossly intact 02/17/2017 None Full Exam - General 1994 Psychiatric orientation/consciousness Overall: oriented to person, place and time 02/17/2017 None Full Exam - General 1994 Psychiatric mood and affect Overall: normal mood and affect 02/17/2017 None Full Exam - General 1994 Abdomen abdominal exam Overall: no tenderness 02/17/2017 None Full Exam - General 1994 Abdomen abdominal exam Overall: normal bowel sounds 02/17/2017 None Full Exam - General 1994 Constitutional general appearance Development: well developed 01/20/2017 None Full Exam - General 1994 Constitutional general appearance Development: appears stated age 0401/20/2017 None Full Exam - General 1994 Constitutional general appearance Hygiene/Attention to Grooming: good hygiene 01/20/2017 None Full Exam - General 1994 Eyes conjunctiva/eyelids Overall: conjunctiva clear 01/20/2017 None Full Exam - General 1994 Eyes conjunctiva/eyelids Overall: cornea clear 01/20/2017 None Full Exam - General 1994 Eyes conjunctiva/eyelids Overall: eyelids normal 01/20/2017 None Full Exam - General 1994 Eyes pupils and irises Overall: pupils equal, round, reactive to light and accomodation 01/20/2017 None Full Exam - General 1994 Ears/Nose/Throat otoscopic exam Overall: external auditory canals clear 01/20/2017 None Full Exam - General 1994 Ears/Nose/Throat otoscopic exam Overall: tympanic membranes clear 01/20/2017 None Full Exam - General 1994 Ears/Nose/Throat lips/teeth/gingiva Overall: benign lips 01/20/2017 None Full Exam - General 1994 Ears/Nose/Throat lips/teeth/gingiva Overall: normal dentition 01/20/2017 None Full Exam - General 1994 Ears/Nose/Throat oral cavity/pharynx/larynx Overall: oral mucosa clear 01/20/2017 None Full Exam - General 1994 Ears/Nose/Throat oral cavity/pharynx/larynx Overall: oropharyngeal mucosa clear 01/20/2017 None Full Exam - General 1994 Ears/Nose/Throat oral cavity/pharynx/larynx Overall: hypopharynx benign 01/20/2017 None Full Exam - General 1994 Ears/Nose/Throat oral cavity/pharynx/larynx Overall: no masses 01/20/2017 None Full Exam - General 1994 Respiratory auscultation Overall: breath sounds clear bilaterally 01/20/2017 None Full Exam - General 1994 Respiratory respiratory effort/rhythm Overall: no retractions 01/20/2017 None Full Exam - General 1994 Respiratory respiratory effort/rhythm Overall: normal rate 01/20/2017 None Full Exam - General 1994 Cardiovascular extremities Overall: no clubbing 01/20/2017 None Full Exam - General 1994 Cardiovascular auscultation of heart Overall: regular rate 01/20/2017 None Full Exam - General 1994 Cardiovascular auscultation of heart Overall: normal heart sounds 01/20/2017 None Full Exam - General 1994 Musculoskeletal spine, ribs and pelvis Overall: spine benign 01/20/2017 None Full Exam - General 1994 Musculoskeletal spine, ribs and pelvis Overall: sacroiliac joint benign 01/20/2017 None Full Exam - General 1994 Musculoskeletal spine, ribs and pelvis Overall: good posture 01/20/2017 None Full Exam - General 1994 Musculoskeletal head and neck Overall: head atraumatic 01/20/2017 None Full Exam - General 1994 Musculoskeletal head and neck Overall: cervical spine benign 01/20/2017 None Full Exam - General 1994 Neurologic deep tendon reflexes Overall: deep tendon reflexes intact 01/20/2017 None Full Exam - General 1994 Neurologic cranial nerves Overall: crainial nerves 2 - 12 grossly intact 01/20/2017 None Full Exam - General 1994 Psychiatric orientation/consciousness Overall: oriented to person, place and time 01/20/2017 None Full Exam - General 1994 Psychiatric mood and affect Overall: normal mood and affect 01/20/2017 None Full Exam - General 1994 Constitutional general appearance Development: well developed 11/17/2016 None Full Exam - General 1994 Constitutional general appearance Development: appears stated age 0211/17/2016 None Full Exam - General 1994 Constitutional general appearance Hygiene/Attention to Grooming: good hygiene 11/17/2016 None Full Exam - General 1994 Eyes conjunctiva/eyelids Overall: conjunctiva clear 11/17/2016 None Full Exam - General 1994 Eyes conjunctiva/eyelids Overall: cornea clear 11/17/2016 None Full Exam - General 1994 Eyes conjunctiva/eyelids Overall: eyelids normal 11/17/2016 None Full Exam - General 1994 Eyes pupils and irises Overall: pupils equal, round, reactive to light and accomodation 11/17/2016 None Full Exam - General 1994 Ears/Nose/Throat otoscopic exam Overall: external auditory canals clear 11/17/2016 None Full Exam - General 1994 Ears/Nose/Throat otoscopic exam Overall: tympanic membranes clear 11/17/2016 None Full Exam - General 1994 Ears/Nose/Throat lips/teeth/gingiva Overall: benign lips 11/17/2016 None Full Exam - General 1994 Ears/Nose/Throat lips/teeth/gingiva Overall: normal dentition 11/17/2016 None Full Exam - General 1994 Ears/Nose/Throat oral cavity/pharynx/larynx Overall: oral mucosa clear 11/17/2016 None Full Exam - General 1994 Ears/Nose/Throat oral cavity/pharynx/larynx Overall: oropharyngeal mucosa clear 11/17/2016 None Full Exam - General 1994 Ears/Nose/Throat oral cavity/pharynx/larynx Overall: hypopharynx benign 11/17/2016 None Full Exam - General 1994 Ears/Nose/Throat oral cavity/pharynx/larynx Overall: no masses 11/17/2016 None Full Exam - General 1994 Respiratory auscultation Overall: breath sounds clear bilaterally 11/17/2016 None Full Exam - General 1994 Respiratory respiratory effort/rhythm Overall: no retractions 11/17/2016 None Full Exam - General 1994 Respiratory respiratory effort/rhythm Overall: normal rate 11/17/2016 None Full Exam - General 1994 Cardiovascular extremities Overall: no clubbing 11/17/2016 None Full Exam - General 1994 Cardiovascular auscultation of heart Overall: regular rate 11/17/2016 None Full Exam - General 1994 Cardiovascular auscultation of heart Overall: normal heart sounds 11/17/2016 None Full Exam - General 1994 Musculoskeletal spine, ribs and pelvis Overall: spine benign 11/17/2016 None Full Exam - General 1994 Musculoskeletal spine, ribs and pelvis Overall: sacroiliac joint benign 11/17/2016 None Full Exam - General 1994 Musculoskeletal spine, ribs and pelvis Overall: good posture 11/17/2016 None Full Exam - General 1994 Musculoskeletal head and neck Overall: head atraumatic 11/17/2016 None Full Exam - General 1994 Musculoskeletal head and neck Overall: cervical spine benign 11/17/2016 None Full Exam - General 1994 Integument inspection of skin Overall: few scattered moles, no gross abnormalities 11/17/2016 None Full Exam - General 1994 Neurologic deep tendon reflexes Overall: deep tendon reflexes intact 11/17/2016 None Full Exam - General 1994 Neurologic cranial nerves Overall: crainial nerves 2 - 12 grossly intact 11/17/2016 None Full Exam - General 1994 Psychiatric orientation/consciousness Overall: oriented to person, place and time 11/17/2016 None Full Exam - General 1994 Psychiatric mood and affect Overall: normal mood and affect 11/17/2016 None Full Exam - General 1994 Constitutional general appearance Development: well developed 11/05/2016 None Full Exam - General 1994 Constitutional general appearance Development: appears stated age 0211/05/2016 None Full Exam - General 1994 Constitutional general appearance Hygiene/Attention to Grooming: good hygiene 11/05/2016 None Full Exam - General 1994 Eyes conjunctiva/eyelids Overall: conjunctiva clear 11/05/2016 None Full Exam - General 1994 Eyes conjunctiva/eyelids Overall: cornea clear 11/05/2016 None Full Exam - General 1994 Eyes conjunctiva/eyelids Overall: eyelids normal 11/05/2016 None Full Exam - General 1994 Eyes pupils and irises Overall: pupils equal, round, reactive to light and accomodation 11/05/2016 None Full Exam - General 1994 Ears/Nose/Throat otoscopic exam Overall: external auditory canals clear 11/05/2016 None Full Exam - General 1994 Ears/Nose/Throat otoscopic exam Overall: tympanic membranes clear 11/05/2016 None Full Exam - General 1994 Ears/Nose/Throat lips/teeth/gingiva Overall: benign lips 11/05/2016 None Full Exam - General 1994 Ears/Nose/Throat lips/teeth/gingiva Overall: normal dentition 11/05/2016 None Full Exam - General 1994 Ears/Nose/Throat oral cavity/pharynx/larynx Overall: oral mucosa clear 11/05/2016 None Full Exam - General 1995 Ears/Nose/Throat oral cavity/pharynx/larynx Overall: oropharyngeal mucosa clear 11/05/2016 None Full Exam - General 1994 Ears/Nose/Throat oral cavity/pharynx/larynx Overall: hypopharynx benign 11/05/2016 None Full Exam - General 1994 Ears/Nose/Throat oral cavity/pharynx/larynx Overall: no masses 11/05/2016 None Full Exam - General 1994 Respiratory respiratory effort/rhythm Overall: no retractions 11/05/2016 None Full Exam - General 1994 Respiratory respiratory effort/rhythm Overall: normal rate 11/05/2016 None Full Exam - General 1994 Cardiovascular extremities Overall: no clubbing 11/05/2016 None Full Exam - General 1994 Cardiovascular auscultation of heart Overall: regular rate 11/05/2016 None Full Exam - General 1994 Cardiovascular auscultation of heart Overall: normal heart sounds 11/05/2016 None Full Exam - General 1994 Musculoskeletal spine, ribs and pelvis Overall: spine benign 11/05/2016 None Full Exam - General 1994 Musculoskeletal spine, ribs and pelvis Overall: sacroiliac joint benign 11/05/2016 None Full Exam - General 1994 Musculoskeletal spine, ribs and pelvis Overall: good posture 11/05/2016 None Full Exam - General 1994 Musculoskeletal head and neck Overall: head atraumatic 11/05/2016 None Full Exam - General 1994 Musculoskeletal head and neck Overall: cervical spine benign 11/05/2016 None Full Exam - General 1994 Integument inspection of skin Overall: few scattered moles, no gross abnormalities 11/05/2016 None Full Exam - General 1994 Neurologic deep tendon reflexes Overall: deep tendon reflexes intact 11/05/2016 None Full Exam - General 1994 Neurologic cranial nerves Overall: crainial nerves 2 - 12 grossly intact 11/05/2016 None Full Exam - General 1994 Psychiatric orientation/consciousness Overall: oriented to person, place and time 11/05/2016 None Full Exam - General 1994 Psychiatric mood and affect Overall: normal mood and affect 11/05/2016 None Full Exam - General 1994 Constitutional general appearance Development: well developed 09/21/2016 None Full Exam - General 1994 Constitutional general appearance Development: appears stated age 1209/21/2016 None Full Exam - General 1994 Constitutional general appearance Hygiene/Attention to Grooming: good hygiene 09/21/2016 None Full Exam - General 1994 Eyes conjunctiva/eyelids Overall: conjunctiva clear 09/21/2016 None Full Exam - General 1994 Eyes conjunctiva/eyelids Overall: cornea clear 09/21/2016 None Full Exam - General 1994 Eyes conjunctiva/eyelids Overall: eyelids normal 09/21/2016 None Full Exam - General 1994 Eyes pupils and irises Overall: pupils equal, round, reactive to light and accomodation 09/21/2016 None Full Exam - General 1994 Ears/Nose/Throat otoscopic exam Overall: external auditory canals clear 09/21/2016 None Full Exam - General 1994 Ears/Nose/Throat otoscopic exam Overall: tympanic membranes clear 09/21/2016 None Full Exam - General 1994 Ears/Nose/Throat lips/teeth/gingiva Overall: benign lips 09/21/2016 None Full Exam - General 1994 Ears/Nose/Throat lips/teeth/gingiva Overall: normal dentition 09/21/2016 None Full Exam - General 1994 Ears/Nose/Throat oral cavity/pharynx/larynx Overall: oral mucosa clear 09/21/2016 None Full Exam - General 1994 Ears/Nose/Throat oral cavity/pharynx/larynx Overall: oropharyngeal mucosa clear 09/21/2016 None Full Exam - General 1994 Ears/Nose/Throat oral cavity/pharynx/larynx Overall: hypopharynx benign 09/21/2016 None Full Exam - General 1994 Ears/Nose/Throat oral cavity/pharynx/larynx Overall: no masses 09/21/2016 None Full Exam - General 1994 Respiratory auscultation Overall: breath sounds clear bilaterally 09/21/2016 None Full Exam - General 1994 Respiratory respiratory effort/rhythm Overall: no retractions 09/21/2016 None Full Exam - General 1994 Respiratory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 fever 04/15/2017 None Annual Medicare Wellness Exam Alcohol Use does not drink any alcohol 03/30/2017 None Annual Medicare Wellness Exam Aspirin Use no 03/30/2017 None Annual Medicare Wellness Exam Blood Glucose (self reported) desireable (below 100) 03/30/2017 None Annual Medicare Wellness Exam Blood Pressure (self reported) high (140/90 or higher) 03/30/2017 None Annual Medicare Wellness Exam Cholesterol (self reported) desireable (below 200) 03/30/2017 None Annual Medicare Wellness Exam Depression (last 6 months) almost never 03/30/2017 None Annual Medicare Wellness Exam Depression or Hopelessness almost never 03/30/2017 None Annual Medicare Wellness Exam Describe Your Health good 03/30/2017 None Annual Medicare Wellness Exam Exercise Habits exercises 5 days per week 03/30/2017 None Annual Medicare Wellness Exam Handling Stress usually greg effectively 03/30/2017 None Annual Medicare Wellness Exam Hemaglobin A-1C (self reported) desireable (6 or lower) 03/30/2017 None Annual Medicare Wellness Exam Hours of Sleep 9 03/30/2017 None Annual Medicare Wellness Exam Interaction with Friends yes 03/30/2017 None Annual Medicare Wellness Exam Interests & Pleasure most of the time 03/30/2017 None Annual Medicare Wellness Exam Life Satisfaction satisfied 03/30/2017 None Annual Medicare Wellness Exam Motor Vehicle Safety always fastens seat belt: y 03/30/2017 None Annual Medicare Wellness Exam Nutrition servings of vegetables / fruit per day: 3 03/30/2017 None Annual Medicare Wellness Exam Smoking and Tobacco Use non smoker 03/30/2017 None Annual Medicare Wellness Exam Social & Emotional Support usually 03/30/2017 None Annual Medicare Wellness Exam Stress some of the time 03/30/2017 None Annual Medicare Wellness Exam Sun Exposure protects skin when outdoors: n 03/30/2017 None earache Quality acute 03/16/2017 None hypertension Quality primary hypertension 03/16/2017 None hypertension Onset and Resolution ongoing 03/16/2017 None hypertension Onset of Symptom during adulthood 03/16/2017 None hypertension Blood Pressure Values pt checking blood pressure - see scanned document 03/16/2017 None hypertension Alleviating Factors medication 03/16/2017 None hypertension Exacerbating Factors stress 03/16/2017 None hypertension Pertinent Findings Denies dizziness 03/16/2017 --due to her ears hypertension Pertinent Findings Denies dyspnea 03/16/2017 None hypertension Pertinent Findings edema 03/16/2017 None diabetes mellitus Onset of Symptom onset as an adult 03/16/2017 None diabetes mellitus Quality non-insulin dependent 03/16/2017 None diabetes mellitus Alleviating Factors medication 03/16/2017 None diabetes mellitus Exacerbating Factors diet 03/16/2017 None diabetes mellitus Pertinent Findings Denies nausea 03/16/2017 None earache Onset and Resolution ongoing 03/16/2017 None earache Triggers no known triggers 03/16/2017 None earache Location left ear 03/16/2017 None diabetes mellitus Glucose monitoring twice daily 03/16/2017 None sinus congestion Location frontal sinuses 03/12/2017 None sinus congestion Quality intermittent 03/12/2017 None sinus congestion Onset and Resolution sudden in onset 03/12/2017 None sinus congestion Frequency of Episodes daily 03/12/2017 None sinus congestion Pertinent Findings cough 03/12/2017 None sinus congestion Pertinent Findings decreased energy level 03/12/2017 None sinus congestion Pertinent Findings Denies fever 03/12/2017 None sinus congestion Pertinent Findings swollen glands 03/12/2017 None earache Location both ears 03/12/2017 None earache Quality acute 03/12/2017 None hypertension Onset and Resolution ongoing 02/17/2017 None hypertension Onset of Symptom during adulthood 02/17/2017 None hypertension Blood Pressure Values pt checking blood pressure - see scanned document 02/17/2017 None hypertension Alleviating Factors medication 02/17/2017 None hypertension Exacerbating Factors stress 02/17/2017 None hypertension Pertinent Findings dizziness 02/17/2017 --due to her ears hypertension Pertinent Findings Denies dyspnea 02/17/2017 None hypertension Pertinent Findings edema 02/17/2017 None gastroesophageal reflux Quality heartburn 02/17/2017 None gastroesophageal reflux Quality intermittent 02/17/2017 None gastroesophageal reflux Onset and Resolution ongoing 02/17/2017 None gastroesophageal reflux Alleviating Factors medication 02/17/2017 (pepcid OTC) diabetes mellitus Onset of Symptom onset as an adult 02/17/2017 None diabetes mellitus Quality non-insulin dependent 02/17/2017 None diabetes mellitus Alleviating Factors medication 02/17/2017 None diabetes mellitus Exacerbating Factors diet 02/17/2017 None diabetes mellitus Pertinent Findings Denies nausea 02/17/2017 None earache Location both ears 02/17/2017 --right ear ache, left ear feels full earache Quality acute 02/17/2017 None earache Onset and Resolution ongoing 02/17/2017 None earache Triggers no known triggers 02/17/2017 None diabetes mellitus Test results Pt checking blood glucose readings, did not bring results to clinic 02/17/2017 None diabetes mellitus Glucose monitoring twice daily 02/17/2017 None hypertension Quality primary hypertension 02/17/2017 None hypertension Onset and Resolution ongoing 01/20/2017 None hypertension Onset of Symptom during adulthood 01/20/2017 None hypertension Blood Pressure Values pt checking blood pressure - see scanned document 01/20/2017 None hypertension Alleviating Factors medication 01/20/2017 None hypertension Exacerbating Factors stress 01/20/2017 None diabetes mellitus Onset of Symptom onset as an adult 01/20/2017 None diabetes mellitus Quality non-insulin dependent 01/20/2017 None diabetes mellitus Alleviating Factors medication 01/20/2017 None diabetes mellitus Exacerbating Factors diet 01/20/2017 None hypertension Pertinent Findings dizziness 01/20/2017 None hypertension Pertinent Findings Denies dyspnea 01/20/2017 None hypertension Pertinent Findings edema 01/20/2017 None diabetes mellitus Test results Pt checking blood glucose at home, see scanned readings 01/20/2017 None diabetes mellitus Glucose monitoring twice daily 01/20/2017 None diabetes mellitus Pertinent Findings Denies nausea 01/20/2017 None gastroesophageal reflux Quality intermittent 01/20/2017 None gastroesophageal reflux Quality heartburn 01/20/2017 None gastroesophageal reflux Onset and Resolution ongoing 01/20/2017 None gastroesophageal reflux Alleviating Factors medication 01/20/2017 (pepcid OTC) earache Location both ears 01/20/2017 None earache Onset and Resolution ongoing 01/20/2017 None earache Quality acute 01/20/2017 None earache Triggers no known triggers 01/20/2017 None cough Quality acute 11/17/2016 None cough Quality intermittent 11/17/2016 None cough Quality productive 11/17/2016 None cough Onset of Symptom 1 weeks ago 11/17/2016 None cough Pertinent Findings chills 11/17/2016 None cough Pertinent Findings fever 11/17/2016 None cough Pertinent Findings lethargy 11/17/2016 None cough Pertinent Findings muscle aches 11/17/2016 None cough Pertinent Findings Denies nausea 11/17/2016 None cough Pertinent Findings sputum production 11/17/2016 yellowish-to clear-back to yellowish earache Location both ears 11/17/2016 None earache Quality acute 11/17/2016 None earache Onset and Resolution sudden in onset 11/17/2016 None earache Onset of Symptom 1 weeks ago 11/17/2016 None hypertension Onset and Resolution ongoing 11/17/2016 None hypertension Onset of Symptom during adulthood 11/17/2016 None hypertension Blood Pressure Values pt checking blood pressure - see scanned document 11/17/2016 None hypertension Alleviating Factors medication 11/17/2016 None hypertension Exacerbating Factors stress 11/17/2016 None diabetes mellitus Onset of Symptom onset as an adult 11/17/2016 None diabetes mellitus Quality non-insulin dependent 11/17/2016 None diabetes mellitus Alleviating Factors medication 11/17/2016 None diabetes mellitus Exacerbating Factors diet 11/17/2016 None cough Onset and Resolution resolved 11/17/2016 None hypertension Onset and Resolution ongoing 11/05/2016 None hypertension Onset of Symptom during adulthood 11/05/2016 None hypertension Alleviating Factors medication 11/05/2016 None hypertension Exacerbating Factors stress 11/05/2016 None diabetes mellitus Onset of Symptom onset as an adult 11/05/2016 None diabetes mellitus Quality non-insulin dependent 11/05/2016 None diabetes mellitus Alleviating Factors medication 11/05/2016 None diabetes mellitus Exacerbating Factors diet 11/05/2016 None hypertension Blood Pressure Values pt checking blood pressure - see scanned document 11/05/2016 None diabetes mellitus Test results Pt checking blood glucose at home, see scanned readings 11/05/2016 None diabetes mellitus Glucose monitoring twice daily 11/05/2016 None cough Quality acute 11/05/2016 None cough Quality intermittent 11/05/2016 None cough Quality productive 11/05/2016 None cough Onset and Resolution sudden in onset 11/05/2016 None cough Onset of Symptom 1 weeks ago 11/05/2016 None cough Pertinent Findings chills 11/05/2016 None cough Pertinent Findings fever 11/05/2016 None cough Pertinent Findings Denies nausea 11/05/2016 None cough Pertinent Findings sputum production 11/05/2016 yellowish-to clear-back to yellowish cough Pertinent Findings muscle aches 11/05/2016 None cough Pertinent Findings lethargy 11/05/2016 None earache Location both ears 11/05/2016 None earache Quality acute 11/05/2016 None earache Onset and Resolution sudden in onset 11/05/2016 None earache Onset of Symptom 1 weeks ago 11/05/2016 None hypertension Onset and Resolution ongoing 09/21/2016 None hypertension Onset of Symptom during adulthood 09/21/2016 None hypertension Alleviating Factors medication 09/21/2016 None hypertension Pertinent Findings Denies dizziness 09/21/2016 None hypertension Pertinent Findings Denies dyspnea 09/21/2016 None hypertension Pertinent Findings Denies edema 09/21/2016 None diabetes mellitus Onset of Symptom onset as an adult 09/21/2016 None diabetes mellitus Quality non-insulin dependent 09/21/2016 None diabetes mellitus Alleviating Factors medication 09/21/2016 None diabetes mellitus Exacerbating Factors diet 09/21/2016 None diabetes mellitus Pertinent Findings Denies dyspnea 09/21/2016 None diabetes mellitus Pertinent Findings Denies nausea 09/21/2016 None hypertension Blood Pressure Values patient checking blood pressure at home - did not bring in readings 09/21/2016 None hypertension Exacerbating Factors stress 09/21/2016 None diabetes mellitus Test results Pt checking blood glucose at home, see scanned readings 09/21/2016 None diabetes mellitus Glucose monitoring twice daily 09/21/2016 None back pain Location in the midline of in the middle back area 09/21/2016 None back pain Quality acute 09/21/2016 None back pain Quality constant 09/21/2016 None back pain Onset and Resolution sudden in onset 09/21/2016 None back pain Onset and Resolution acute 09/21/2016 None back pain Onset of Symptom 5 days ago 09/21/2016 None back pain Mechanism of injury fall from height 09/21/2016 None hypertension Onset of Symptom during adulthood 08/03/2016 None diabetes mellitus Onset of Symptom onset as an adult 08/03/2016 None diabetes mellitus Quality non-insulin dependent 08/03/2016 None hypertension Onset and Resolution ongoing 08/03/2016 None hypertension Blood Pressure Values pt checking blood pressure - see scanned document 08/03/2016 None hypertension Alleviating Factors medication 08/03/2016 None hypertension Pertinent Findings Denies dizziness 08/03/2016 None hypertension Pertinent Findings Denies dyspnea 08/03/2016 None hypertension Pertinent Findings Denies edema 08/03/2016 None diabetes mellitus Test results Pt checking blood glucose at home, see scanned readings 08/03/2016 None diabetes mellitus Glucose monitoring twice daily 08/03/2016 None diabetes mellitus Alleviating Factors medication 08/03/2016 None diabetes mellitus Exacerbating Factors diet 08/03/2016 None diabetes mellitus Pertinent Findings Denies dyspnea 08/03/2016 None diabetes mellitus Pertinent Findings Denies nausea 08/03/2016 None earache Location both ears 08/03/2016 --worse in the right earache Onset and Resolution ongoing 08/03/2016 None hypertension Onset of Symptom during adulthood 07/06/2016 None hypertension Blood Pressure Values not checking blood pressure at home 07/06/2016 None diabetes mellitus Onset of Symptom onset as an adult 07/06/2016 None diabetes mellitus Quality non-insulin dependent 07/06/2016 None diabetes mellitus Test results Pt checking blood glucose readings, did not bring results to clinic 07/06/2016 None diabetes mellitus Glucose monitoring twice daily 07/06/2016 sometimes 3 hypertension Quality chronic 07/06/2016 None hypertension Triggers stress 07/06/2016 None hypertension Alleviating Factors medication 07/06/2016 None hypertension Exacerbating Factors stress 07/06/2016 None Advance Directives No Advance Directive data Encounters Encounter Performer Location Codes Date ([id number]) [id number] EST. PATIENT, LEVEL IV Diagnosis: Essential (primary) hypertension[ICD10: I10] Diagnosis: Pain in right hip[ICD10: M25.551] Diagnosis: Type 2 diabetes mellitus without complications[ICD10: E11.9] Fifi Camejo MD, [facility] CPT-4: 03611 02/28/2019 ([id number]) 47807 EST. PATIENT, LEVEL III Diagnosis: Lumbago with sciatica, right side[ICD10: M54.41] Diagnosis: Muscle spasm of back[ICD10: M62.830] Yuridia Camejo MD, [facility] CPT-4: 74416 02/14/2019 ([id number]) 90297 EST. PATIENT, LEVEL III Diagnosis: Essential (primary) hypertension[ICD10: I10] Diagnosis: Lumbago with sciatica, right side[ICD10: M54.41] Yuridia Camejo MD, [facility] CPT-4: 34323 01/30/2019 ([id number]) 80805 EST. PATIENT, LEVEL III Diagnosis: Essential (primary) hypertension[ICD10: I10] Diagnosis: Other allergic rhinitis[ICD10: J30.89] Yuridia Camejo MD, [facility] CPT-4: 87738 01/16/2019 01324 EST. PATIENT, LEVEL IV Diagnosis: Other acute sinusitis[ICD10: J01.80] Diagnosis: Other allergic rhinitis[ICD10: J30.89] Krysta Camejo MD, [facility] CPT- 4: 32399 10/12/2018 ([id number]) 63264 EST. PATIENT, LEVEL IV Diagnosis: Essential (primary) hypertension[ICD10: I10] Diagnosis: Type 2 diabetes mellitus without complications[ICD10: E11.9] Diagnosis: Mixed hyperlipidemia[ICD10: E78.2] Fifi Camejo MD, [facility] CPT- 4: 69771 08/16/2018 ([id number]) 16429 EST. PATIENT, LEVEL IV Diagnosis: Type 2 diabetes mellitus without complications[ICD10: E11.9] Diagnosis: Mixed hyperlipidemia[ICD10: E78.2] Diagnosis: Essential (primary) hypertension[ICD10: I10] Diagnosis: Dysuria[ICD10: R30.0] Diagnosis: Pain in left foot[ICD10: M79.672] Fifi Camejo MD, [facility] CPT- 4: 74082 04/12/2018 ([id number]) 31079 EST. PATIENT, LEVEL III Diagnosis: Otalgia, bilateral[ICD10: H92.03] Diagnosis: Other allergic rhinitis[ICD10: J30.89] Yuridia Camejo MD, [facility] CPT-4: 17450 01/20/2018 ([id number]) 68946 EST. PATIENT, LEVEL IV Diagnosis: Type 2 diabetes mellitus without complications[ICD10: E11.9] Diagnosis: Mixed hyperlipidemia[ICD10: E78.2] Diagnosis: Essential (primary) hypertension[ICD10: I10] Diagnosis: Dysuria[ICD10: R30.0] Fifi Camejo MD, [facility] CPT-4: 51540 12/29/2017 ([id number]) 77470 EST. PATIENT, LEVEL IV Diagnosis: Essential (primary) hypertension[ICD10: I10] Diagnosis: Cysts of left upper eyelid[ICD10: H02.824] Diagnosis: Pain in left foot[ICD10: M79.672] Fifi Camejo MD, [facility] CPT- 4: 19454 08/24/2017 ([id number]) 52956 EST. PATIENT, LEVEL III Diagnosis: Essential (primary) hypertension[ICD10: I10] Fifi Camejo MD, [facility] CPT-4: 14763 07/26/2017 ([id number]) Miscellaneous no charge Diagnosis: Essential (primary) hypertension[ICD10: I10] Fifi Camejo MD [facility] CPT-4: 74120 07/20/2017 64676 EST. PATIENT, LEVEL III Diagnosis: Otalgia, bilateral[ICD10: H92.03] Diagnosis: Dizziness and giddiness[ICD10: R42] Diagnosis: Mixed hyperlipidemia[ICD10: E78.2] Krysta Camejo MD, [facility] CPT-4: 29650 05/27/2017 ([id number]) Miscellaneous no charge Diagnosis: Essential (primary) hypertension[ICD10: I10] Krysta Cmaejo MD [facility] CPT-4: 12378 05/07/2017 ([id number]) 98662 EST. PATIENT, LEVEL IV Diagnosis: Otalgia, bilateral[ICD10: H92.03] Diagnosis: Dizziness and giddiness[ICD10: R42] Diagnosis: Orthostatic hypotension[ICD10: I95.1] Fifi Camejo MD, [facility] CPT-4: 77344 05/03/2017 03272 EST. PATIENT, LEVEL IV Diagnosis: Essential (primary) hypertension[ICD10: I10] Diagnosis: Type 2 diabetes mellitus without complications[ICD10: E11.9] Diagnosis: Gastro-esophageal reflux disease without esophagitis[ICD10: K21.9] Diagnosis: Dizziness and giddiness[ICD10: R42] Diagnosis: Dysuria[ICD10: R30.0] Diagnosis: Other malaise[ICD10: R53.81] Krysta Camejo MD, [facility] CPT-4: 70726 04/15/2017 ([id number]) 29106 EST. PATIENT, LEVEL IV Diagnosis: Type 2 diabetes mellitus without complications[ICD10: E11.9] Diagnosis: Otalgia, bilateral[ICD10: H92.03] Diagnosis: Essential (primary) hypertension[ICD10: I10] Diagnosis: Other allergic rhinitis[ICD10: J30.89] Fifi Camejo MD, [facility] CPT-4: 78447 03/16/2017 05991 EST. PATIENT, LEVEL IV Diagnosis: Other acute sinusitis[ICD10: J01.80] Diagnosis: Acute suppurative otitis media without spontaneous rupture of ear drum, bilateral[ICD10: H66.003] Diagnosis: Other allergic rhinitis[ICD10: J30.89] Krysta Camejo MD [facility] CPT- 4: 63454 03/12/2017 ([id number]) 41694 EST. PATIENT, LEVEL IV Diagnosis: Essential (primary) hypertension[ICD10: I10] Diagnosis: Type 2 diabetes mellitus without complications[ICD10: E11.9] Fifi Camejo MD [facility] CPT-4: 54894 02/17/2017 ([id number]) 02891 EST. PATIENT, LEVEL IV Diagnosis: Essential (primary) hypertension[ICD10: I10] Diagnosis: Type 2 diabetes mellitus without complications[ICD10: E11.9] Fifi Camejo MD [facility] CPT-4: 82574 01/20/2017 ([id number]) 79919 EST. PATIENT, LEVEL IV Diagnosis: Essential (primary) hypertension[ICD10: I10] Diagnosis: Type 2 diabetes mellitus without complications[ICD10: E11.9] Diagnosis: Gastro-esophageal reflux disease without esophagitis[ICD10: K21.9] Fifi Camejo MD [facility] CPT-4: 18232 11/17/2016 ([id number]) 29226 EST. PATIENT, LEVEL III Diagnosis: Acute bronchitis due to other specified organisms[ICD10: J20.8] Diagnosis: Cough[ICD10: R05] Fifi Camejo MD [facility] CPT-4: 45358 11/05/2016 ([id number]) 41717 EST. PATIENT, LEVEL IV Diagnosis: Essential (primary) hypertension[ICD10: I10] Diagnosis: Type 2 diabetes mellitus without complications[ICD10: E11.9] Fifi Camejo MD [facility] CPT-4: 27865 09/21/2016 ([id number]) Miscellaneous no charge Diagnosis: Essential (primary) hypertension[ICD10: I10] Fifi Camejo MD [facility] CPT-4: 22088 09/16/2016 ([id number]) 19635 EST. PATIENT, LEVEL III Diagnosis: Type 2 diabetes mellitus without complications[ICD10: E11.9] Diagnosis: Essential (primary) hypertension[ICD10: I10] [facility] CPT-4: 93582 08/03/2016 ([id number]) OFFICE VISIT, NEW - LEVEL 4 Diagnosis: Essential (primary) hypertension[ICD10: I10] Diagnosis: Type 2 diabetes mellitus without complications[ICD10: E11.9] Diagnosis: Carpal tunnel syndrome, left upper limb[ICD10: G56.02] Diagnosis: Right upper quadrant pain[ICD10: R10.11] Diagnosis: Mixed hyperlipidemia[ICD10: E78.2] [facility] CPT- 4: 89044 07/06/2016 Plan of Care Planned Activity Notes Codes Status Date Visit Plan: Hypertension - well controlled - continue with current medications, continue with no added salt diet. Pt has been encouraged to exercise daily. The pt has been advised to call the office if there are any acute concerns about change in blood pressure readings at home. Low back and hip pain - xray of lumbar spine - negative for acute injury, check xray of right hip. Diabetes Mellitus - controlled - per recent FSBS reports. I have recommended for the patient to have follow up labs prior to the next office visit. The patient has been instructed to continue with current medications as previously directed, continue with regular FSBS monitoring to assure continued control of diabetes. Pt to call for any acute concerns, complaints, or if the blood glucose readings are starting to become less controlled. 02/28/2019 Patient Education: Patient Medication Summary Completed 02/28/2019 Patient Education: Diabetes Completed 02/28/2019 Visit Plan: Chronic Back pain - the patient was counseled to always first attempt to use modalities other than pain medication for alleviation of the muscle spasms and pain. The patient was also encouraged to co ntinue with back exercises as previously directed. Pt is to use pain medication as directed. If pain medications are used inappropriately or early refills are requested, the patient understands that is a breech of trust/contract and could result in the patient's termination from this medical practice. RECOMMEND PT TO EVALUATE AND TREAT -PATIENT WILL CONSIDER AND DISCUSS WITH DR CAMEJO AT HER NEXT APPOINTMENT 02/14/2019 Appointment: Yuridia Walsh WPtel: [phone] (30 min) Complex 02/14/2019 Patient Education: Patient Medication Summary Completed 02/14/2019 Appointment: WaldorfFifi WPtel: [id number] (15 min) Moderate 02/06/2019 Visit Plan: Hypertension - well controlled - continue with current medications, continue with no added salt diet. Pt has been encouraged to exercise daily. The pt has been advised to call the office if there are any acute concerns about change in blood pressure readings at home. Sciatica- exercises discussed with the patient, pt to continue with medications as directed. Use voltaren gel -only use tramadol as needed for breakthrough pain. Pt is to call if the symptoms do not improve or if they worsen. 01/30/2019 Appointment: Yuridia Walsh WPtel: [phone] (30 min) Complex 01/30/2019 Patient Education: Patient Medication Summary Completed 01/30/2019 Visit Plan: Hypertension - uncontrolled - the patient's medications have been modified as documented in the visit note. The patient has been counseled to cut back on salt in diet for a no added salt diet, low fat diet, start an exercise program with low weight bearing exercises and higher aerobic activity for heart health. The patient is to check blood pressure readings as an outpatient and either fax, call, or email the readings to the office next week for practitioner to review. The pt is to call for acute concerns. Allergies - chronic - recommended pt to use allergy medication as prescribed. Pt has been co unseled as to the appropriate use of the medication. Pt to call if allergy symptoms are not controlled with the medication. If using nasal spray, instructions as follows: Nasal spray- use twice daily, one spray per nostril twice daily, after 30 minutes, rinse out nose with saline spray.. Use opposite hand per nostril to spray in the nasal steroid allergy spray. 01/16/2019 Patient Education: Patient Medication Summary Completed 01/16/2019 Visit Plan: injection today 01/02/2019 Appointment: Injection 01/02/2019 Patient Education: Patient Medication Summary Completed 01/02/2019 Patient Education: Patient Medication Summary Completed 12/28/2018 Visit Plan: Sinusitis - Pt has acute infection - pain in face, maxillary region, Pt informed to use decongestant, RX given to patient, sinus rinses also recommended. Call if symptoms do not show improvement. Allergies - chronic - recommended pt to use allergy medication as prescribed. Pt has been counseled as to the appropriate use of the medication. Pt to call if allergy symptoms are not controlled with the medication. If using nasal spray, instructions as follows: Nasal spray- use twice daily, one spray per nostril twice daily, after 30 minutes, rinse out nose with saline spray.. Use opposite hand per nostril to spray in the nasal steroid allergy spray. 10/12/2018 Appointment: Krysta Dale WPtel: [id number] (30 min) Complex 10/12/2018 Patient Education: Patient Medication Summary Completed 10/12/2018 Visit Plan: Medicare Exam - today we discussed the patients past history, immunizations, preventative exams/evaluations - colonoscopy, fecal occult blood testing, routine labs for renal function, glucose, cholesterol, osteoporosis evaluations, cardiovascular testing and cancer screenings. We have also discussed mental health and the signs/symptoms of depression. The patient was advised of home safety evaluations and the need to make sure that as the aging process continues, we need to be aware of different ways to make the home a safer place to reside. The patient has also been counseled that exercise is necessary - and of utmost importance as we age to help decrease fall risk and to maintain independence in the home. Today we discussed the need for the patient to create paperwork for Advanced directives as well as for the patient to provide this office with a copy of her DOPA paperwork for health care surrogate. 09/06/2018 Appointment: Yuridia Walsh WPtel: [address] [place], [place] [phone] [facility] - Annual Wellness Visit 09/06/2018 Patient Education: Patient Medication Summary Completed 09/06/2018 Appointment: Yuridia Walsh WPtel: [address] [place], [place] [phone] [facility] - Annual Wellness Visit 08/29/2018 Visit Plan: Diabetes Mellitus - controlled - per recent FSBS reports. I have recommended for the patient to have follow up labs prior to the next office visit. The patient has been instructed to continue with current medications as previously directed, continue with regular FSBS monitoring to assure continued control of diabetes. Pt to call for any acute concerns, complaints, or if the blood glucose readings are starting to become less controlled. Hypertension - well controlled - continue with current medications, continue with no added salt diet. Pt has been encouraged to exercise daily. The pt has been advised to call the office if there are any acute concerns about change in blood pressure readings at home. Hyperlipidemia - pt has been counseled about appropriate diet, exercise, and need for low fat food choices. I have discussed the need for the patient to take medications as prescribed. If the patient has negative side effects from the medication, they are to CALL the office and not abruptly discontinue the medication without discussion with a practitioner in the office. We will check labs in 3-6 months for follow up on the patient's chronic medical problem and to assure normal liver response to me dications. 08/16/2018 Appointment: Fifi Camejo [facility]Ptel[facility] [phone] [id number] (15 min) Moderate 08/16/2018 Patient Education: Patient Medication Summary Completed 08/16/2018 Patient Education: Diabetes Completed 08/16/2018 Patient Education: Cholesterol Management Completed 08/16/2018 Patient Education: Patient Medication Summary Completed 07/18/2018 Referral: Freeman Huff Referral Completed 05/09/2018 Patient Education: Patient Medication Summary Completed 04/15/2018 Visit Plan: Hypertension - uncontrolled - the patient's medications have been modified as documented in the visit note. The patient has been counseled to cut back on salt in diet for a no added salt diet, low fat diet, start an exercise program with low weight bearing exercises and higher aerobic activity for heart health. The patient is to check blood pressure readings as an outpatient and either fax, call, or email the readings to the office next week for practitioner to review. The pt is to call for acute concerns. Pain in left foot - referral to Dr. Huff - pt has history of injury to the foot. 04/12/2018 Appointment: Fifi Camejo [facility]Ptel[facility] [phone] [id number] (15 min) Moderate 04/12/2018 Patient Education: Patient Medication Summary Completed 04/12/2018 Care Plan: Referral Order SNOMED-CT : [id number] Pending 04/12/2018 Patient Education: Patient Medication Summary Completed 01/24/2018 Visit Plan: Earache-allergies- Pt has been counseled as to the appropriate use of the medication. Pt to call if allergy symptoms are not controlled with the medication. If using nasal spray, instructions as follows: Nasal spray- use twice daily, one spray per nostril twice daily, after 30 minutes, rinse out nose with saline spray.. Use opposite hand per nostril to spray in the nasal steroid allergy spray. 01/20/2018 Appointment: [facility]uridia Walsh [facility]el[facility] [phone] [id number] (15 min) Moderate 01/20/2018 Patient Education: Patient Medication Summary Completed 01/20/2018 Visit Plan: Hypertension - uncontrolled - the patient's medications have been modified as documented in the visit note. The patient has been counseled to cut back on salt in diet for a no added salt diet, low fat diet, start an exercise program with low weight bearing exercises and higher aerobic activity for heart health. The patient is to check blood pressure readings as an outpatient and either fax, call, or email the readings to the office next week for practitioner to review. The pt is to call for acute concerns. Increase clonidine to a full pill twice daily. Hyperlipidemia - pt has been counseled about appropriate diet, exercise, and need for low fat food choices. I have discussed the need for the patient to take medications as prescribed. If the patient has negative side effects from the medication, they are to CALL the office and not abruptly discontinue the medication without discussion with a practitioner in the office. We will check labs in 3-6 months for follow up on the patient's chronic medical problem and to assure normal liver response to medications. Diabetes Mellitus - controlled - per recent FSBS reports. I have recommended for the patient to have follow up labs prior to the next office visit. The patient has been instructed to continue with current medications as previously directed, continue with regular FSBS monitoring to assure continued control of diabetes. Pt to call for any acute concerns, complaints, or if the blood glucose readings are starting to become less controlled. 12/29/2017 Appointment: Fifi Camejo [facility]Ptel[facility] [phone] [id number] (15 min) Moderate 12/29/2017 Patient Education: Patient Medication Summary Completed 12/29/2017 Visit Plan: Hypertension - uncontrolled today in the office - pt did not take her home medications until right before her appt today. I have not modified her medication today. The patient has been counseled to cut back on salt in diet for a no added salt diet, low fat diet, start an exercise program with low weight bearing exercises and higher aerobic activity for heart health. The patient is to check blood pressure readings as an outpatient and either fax, call, or email the readings to the office next week for practitioner to review. The pt is to call for acute concerns. Cyst left eye - rx for erythromycin oi ntment Left foot 5th metatarsal - recommended referral to Dr. Chago davis [place] 08/24/2017 Appointment: Fifi Camejo WPtel: [phone] [id number] (15 min) Moderate 08/24/2017 Patient Education: Patient Medication Summary Completed 08/24/2017 Care Plan: Referral Order SNOMED-CT : [id number] Pending 08/24/2017 Visit Plan: Hypertension - uncontrolled - the patient's medications have been modified as documented in the visit note. The patient has been counseled to cut back on salt in diet for a no added salt diet, low fat diet, start an exercise program with low weight bearing exercises and higher aerobic activity for heart health. The patient is to check blood pressure readings as an outpatient and either fax, call, or email the readings to the office next week for practitioner to review. The pt is to call for acute concerns. decrease the metoprolol to 1/2 pill twice daily start on clonidine 1/2 pill twice daily bring by heart rate and blood pressure readings to the office in 2 weeks keep all other medications as currently taking except for the changes listed above. 07/26/2017 Appointment: Fifi Camejo [facility]Ptel[facility] [phone] [facility] (15 min) Moderate 07/26/2017 Patient Education: Patient Medication Summary Completed 07/26/2017 Patient Education: Obesity Completed 07/26/2017 Appointment: Nurse Visit 07/20/2017 Patient Education: Patient Medication Summary Completed 07/20/2017 Visit Plan: Persistent vergito with bilateral air-fluid levels and otalgia - pt has an appointment with ENT tomorrow - will defer treatment to ENT. Hyperlipidemia - pt has been counseled about appropriate diet, exercise, and need for low fat food choices. I have discussed the need for the patient to take medications as prescribed. If the patient has negative side effects from the medication, they are to CALL the office and not abruptly discontinue the medication without discussion with a practitioner in the office. We will check labs in 3-6 months for follow up on the patient's chronic medical problem and to assure normal liver response to medications. 05/27/2017 Appointment: Krysta Dale WPtel: [facility] (15 min) Moderate 05/27/2017 Patient Education: Patient Medication Summary Completed 05/27/2017 Appointment: Nurse Visit 05/07/2017 Patient Education: Patient Medication Summary Completed 05/07/2017 Visit Plan: Persistent vergito with bilateral air-fluid levels and ear pain. Pt was seen by Dr. Calvo- she did not like his response to her complaints. I have recommended a referral to ENT in [place] or [place]. I suspect she may need myringotomy tubes. Pt to continue with flonase. Orthostatic hypotension - dc doxazosin. Monitor blood pressures at home. stop the doxazosin meclizine change to 1/2 pill three times a day come back on Wednesday for blood pressure check 05/03/2017 Appointment: Fifi Camejo WPtel: [facility] (15 min) Moderate 05/03/2017 Patient Education: Patient Medication Summary Completed 05/03/2017 Appointment: Fifi Camejo WPtel: [phone] [id number] (15 min) Moderate 04/21/2017 Visit Plan: Hypertension, dizziness, bradycardia - uncontrolled - will refer to cardiology - the patient's medications have been modified as documented in the visit note. The patient has been counseled to cut back on salt in diet for a no added salt diet, low fat diet, start an exercise program with low weight bearing exercises and higher aerobic activity for heart health. The patient is to check blood pressure readings as an outpatient and either fax, call, or email the readings to the office next week for practitioner to review. The pt is to call for acute concerns. Gastroenteritis - discussed need to stay away from milk products while acutely ill with diarrhea and nausea and emesis as it may worsen the symptoms. Liquids initially until the nausea improves, then recommend to advance to bland diet for 1 day, then advance as tolerated. Call if symptoms not improved. Diabetes Mellitus - I have recommended for the patient to have follow up labs prior to the next office visit. The patient has been instructed to continue with current medications as previously directed, continue with regular FSBS monitoring to assure continued control of diabetes. Pt to call for any acute concerns, complaints, or if the blood glucose readings are starting to become less controlled. I have recommended for the patient to follow more strictly to the diabetic diet as discussed in clinic to allow for greater blood glucose control. 04/15/2017 Visit Plan: Hypertension, dizziness, bradycardia - uncontrolled - will refer to cardiology - the patient's medications have been modified as documented in the visit note. The patient has been counseled to cut back on salt in diet for a no added salt diet, low fat diet, start an exercise program with low weight bearing exercises and higher aerobic activity for heart health. The patient is to check blood pressure readings as an outpatient and either fax, call, or email the readings to the office next week for practitioner to review. The pt is to call for acute concerns. Gastroenteritis - discussed need to stay away from milk products while acutely ill with diarrhea and nausea and emesis as it may worsen the symptoms. Liquids initially until the nausea improves, then recommend to advance to bland diet for 1 day, then advance as tolerated. Call if symptoms not improved. Diabetes Mellitus - I have recommended for the patient to have follow up labs prior to the next office visit. The patient has been instructed to continue with current medications as previously directed, continue with regular FSBS monitoring to assure continued control of diabetes. Pt to call for any acute concerns, complaints, or if the blood glucose readings are starting to become less controlled. I have recommended for the patient to follow more strictly to the diabetic diet as discussed in clinic to allow for greater blood glucose control. 04/15/2017 Appointment: Krysta Dale WPtel: [phone] [facility] (30 min) Complex 04/15/2017 Patient Education: Patient Medication Summary Completed 04/15/2017 Referral: Dr Calvo Patient informed. Referral info faxed. Completed 04/08/2017 Visit Plan: Medicare Exam - today we discussed the patients past history, immunizations, preventative exams/evaluations - colonoscopy, fecal occult blood testing, routine labs for renal function, glucose, cholesterol, osteoporosis evaluations, cardiovascular testing and cancer screenings. We have also discussed mental health and the signs/symptoms of depression. The patient was advised of home safety evaluations and the need to make sure that as the aging process continues, we need to be aware of different ways to make the home a safer place to reside. The patient has also been counseled that exercise is necessary - and of utmost importance as we age to help decrease fall risk and to maintain independence in the home. Today we discussed the need for the patient to create paperwork for Advanced directives as well as for the patient to provide this office with a copy of her DOPA paperwork for health care surrogate. 03/30/2017 Appointment: Krysta Dale WPtel: [phone] [facility] [facility] - Annual Wellness Visit 03/30/2017 Patient Education: Patient Medication Summary Completed 03/30/2017 Patient Education: Obesity Completed 03/30/2017 Visit Plan: Diabetes Mellitus - controlled - per recent FSBS reports. I have recommended for the patient to have follow up labs prior to the next office visit. The patient has been instructed to continue with current medications as previously directed, continue with regular FSBS monitoring to assure continued control of diabetes. Pt to call for any acute concerns, complaints, or if the blood glucose readings are starting to become less controlled. Otalgia - dizziness - Air fluid level in both ears - persistent for several months despite treatment - I have recommended pt to have a referral to dr. calvo - appt sometime after March 24 Hypertension - well controlled - continue with current medications, continue with no added salt diet. Pt has been encouraged to exercise daily. The pt has been advised to call the office if there are any acute concerns about change in blood pressure readings at home. 03/16/2017 Appointment: Fifi Camejo WPtel: [phone] [id number] (30 min) Complex 03/16/2017 Patient Education: Patient Medication Summary Completed 03/16/2017 Patient Education: Obesity Completed 03/16/2017 Care Plan: Referral Order SNOMED-CT : [id number] Pending 03/16/2017 Visit Plan: Allergies - chronic - recommended pt to use allergy medication as prescribed. Pt has been counseled as to the appropriate use of the medication. Pt to call if allergy symptoms are not controlled with the medication. If using nasal spray, instructions as follows: Nasal spray- use twice daily, one spray per nostril twice daily, after 30 minutes, rinse out nose with saline spray.. Use opposite hand per nostril to spray in the nasal steroid allergy spray. Sinusitis - Pt has acute infection - pain in face, maxillary region, Pt informed to use decongestant, RX given to patient, sinus rinses also recommended. Call if symptoms do not show improvement. Otitis Media - discussed the diagnosis with the patient, script sent electronically to the pharmacy for treatment of the infection. The disease course was discussed and the need to notify the clinic if symptoms do not improve or if they acutely worsen. 03/12/2017 Appointment: Krysta Dale WPtel: [phone] [facility] (15 min) Moderate 03/12/2017 Patient Education: Patient Medication Summary Completed 03/12/2017 Visit Plan: Hypertension - uncontrolled - the patient's medications have been modified as documented in the visit note. The patient has been counseled to cut back on salt in diet for a no added salt diet, low fat diet, start an exercise program with low weight bearing exercises and higher aerobic activity for heart health. The patient is to check blood pressure readings as an outpatient and either fax, call, or email the readings to the office next week for practitioner to review. The pt is to call for acute concerns. Medication increased 5 days ago Diabetes Mellitus - controlled - per recent FSBS reports. I have recommended for the patient to have follow up labs prior to the next office visit. The patient has been instructed to continue with current medications as previously directed, continue with regular FSBS monitoring to assure continued control of diabetes. Pt to call for any acute concerns, complaints, or if the blood glucose readings are starting to become less controlled. 02/17/2017 Appointment: Fifi Camejo [facility]Ptel: [phone] [facility] (30 min) Complex 02/17/2017 Patient Education: Patient Medication Summary Completed 02/17/2017 Visit Plan: Hypertension - uncontrolled - the patient's medications have been modified as documented in the visit note. The patient has been counseled to cut back on salt in diet for a no added salt diet, low fat diet, start an exercise program with low weight bearing exercises and higher aerobic activity for heart health. The patient is to check blood pressure readings as an outpatient and either fax, call, or email the readings to the office next week for practitioner to review. The pt is to call for acute concerns. Diabetes Mellitus - controlled - per recent FSBS reports. I have recommended for the patient to have follow up labs prior to the next office visit. The patient has been instructed to continue with current medications as previously directed, continue with regular FSBS monitoring to assure continued control of diabetes. Pt to call for any acute concerns, complaints, or if the blood glucose readings are starting to become less controlled. 01/20/2017 Appointment: Fifi Camejo WPtel: [phone] [facility] (30 min) Complex 01/20/2017 Patient Education: Patient Medication Summary Completed 01/20/2017 Patient Education: Obesity Completed 01/20/2017 Patient Education: Patient Medication Summary Completed 12/30/2016 Visit Plan: Hypertension - well controlled - continue with current medications, continue with no added salt diet. Pt has been encouraged to exercise daily. The pt has been advised to call the office if there are any acute concerns about change in blood pressure readings at home. Diabetes Mellitus - controlled - per recent FSBS reports. I have recommended for the patient to have follow up labs prior to the next office visit. The patient has been instructed to continue with current medications as previously directed, continue with regular FSBS monitoring to assure continued control of diabetes. Pt to call for any acute concerns, complaints, or if the blood glucose readings are starting to become less controlled. GERD - gave sample of dexilant 11/17/2016 Appointment: Fifi Camejo WPtel: [phone] [facility] [place] (30 min) Complex 11/17/2016 Patient Education: Patient Medication Summary Completed 11/17/2016 Patient Education: Obesity Completed 11/17/2016 Visit Plan: Bronchitis - acute case of bronchitis identified. Pt has been given antibiotics, breathing treatments as appropriate, and pt has been instructed to call if symptoms are not improved, or if symptoms acutely worsen. 11/05/2016 Patient Education: Patient Medication Summary Completed 11/05/2016 Patient Education: Obesity Completed 11/05/2016 Visit Plan: Hypertension - uncontrolled - the patient's medications have been modified as documented in the visit note. The patient has been counseled to cut back on salt in diet for a no added salt diet, low fat diet, start an exercise program with low weight bearing exercises and higher aerobic activity for heart health. The patient is to check blood pressure readings as an outpatient and either fax, call, or email the readings to the office next week for practitioner to review. The pt is to call for acute concerns. add on doxazosin 4mg at hs - monitor pressures. DM- improved control - FSBS report shows levels averaging in the 90-110 range. 09/21/2016 Appointment: Fifi Camejo WPtel: [phone] [facility] (15 min) Moderate 09/21/2016 Patient Education: Patient Medication Summary Completed 09/21/2016 Patient Education: Obesity Completed 09/21/2016 Appointment: Lab Draw 09/18/2016 Patient Education: Patient Medication Summary Completed 09/18/2016 Appointment: Nurse Visit 09/16/2016 Appointment: Nurse Visit 09/16/2016 Patient Education: Patient Medication Summary Completed 09/16/2016 Visit Plan: Hypertension - uncontrolled - the patient's medications have been modified as documented in the visit note. The patient has been counseled to cut back on salt in diet for a no added salt diet, low fat diet, start an exercise program with low weight bearing exercises and higher aerobic activity for heart health. The patient is to check blood pressure readings as an outpatient and either fax, call, or email the readings to the office next week for practitioner to review. The pt is to call for acute concerns. DM - FSBS show stability - no change in plan at this time. 08/03/2016 Appointment: Fifi Camejo WPtel: [phone] [facility] (15 min) Moderate 08/03/2016 Patient Education: Patient Medication Summary Completed 08/03/2016 Patient Education: Obesity Completed 08/03/2016 Visit Plan: Hypertension - well controlled - continue with current medications, continue with no added salt diet. Pt has been encouraged to exercise daily. The pt has been advised to call the office if there are any acute concerns about change in blood pressure readings at home. Diabetes Mellitus - controlled - per recent FSBS reports. I have recommended for the patient to have follow up labs prior to the next office visit. The patient has been instructed to continue with current medications as previously directed, continue with regular FSBS monitoring to assure continued control of diabetes. Pt to call for any acute concerns, complaints, or if the blood glucose readings are starting to become less controlled. Hyperlipidemia - pt has been counseled about appropriate diet, exercise, and need for low fat food choices. I have discussed the need for the patient to take medications as prescribed. If the patient has negative side effects from the medication, they are to CALL the office and not abruptly discontinue the medication without discussion with a practitioner in the office. We will check labs in 3-6 months for follow up on the patient's chronic medical problem and to assure normal liver response to me dications. Carpal tunnel syndrome - recommended pt to use wrist braces at night, call if not improving. 07/06/2016 Appointment: Fifi Camejo WPtel: [phone] [facility] New Patient 07/06/2016 Patient Education: Patient Medication Summary Completed 07/06/2016 Patient Education: Obesity Completed 07/06/2016 Referral: Dr Calvo Referral Completed Referral: Freeman Huff Referral Appointment Requested Referral: External, Ordering Provider Referral Appointment Requested Instructions Comment take the doxazosin to 4mg twice daily. . Hypertension - uncontrolled - the patient's medications have been modified as documented in the visit note. The patient has been counseled to cut back on salt in diet for a no added salt diet, low fat diet, start an exercise program with low weight bearing exercises and higher aerobic activity for heart health. The patient is to check blood pressure readings as an outpatient and either fax, call, or email the readings to the office next week for practitioner to review. The pt is to call for acute concerns. Diabetes Mellitus - controlled - per recent FSBS reports. I have recommended for the patient to have follow up labs prior to the next office visit. The patient has been instructed to continue with current medications as previously directed, continue with regular FSBS monitoring to assure continued control of diabetes. Pt to call for any acute concerns, complaints, or if the blood glucose readings are starting to become less controlled. . Hypertension - uncontrolled - the patient's medications have been modified as documented in the visit note. The patient has been counseled to cut back on salt in diet for a no added salt diet, low fat diet, start an exercise program with low weight bearing exercises and higher aerobic activity for heart health. The patient is to check blood pressure readings as an outpatient and either fax, call, or email the readings to the office next week for practitioner to review. The pt is to call for acute concerns. Pain in left foot - referral to Dr. Huff - pt has history of injury to the foot. Nasal spray- use twice daily, one spray per nostril twice daily, after 30 minutes, rinse out nose with saline spray.. Use opposite hand per nostril to spray in the nasal steroid allergy spray. . Hypertension - well controlled - continue with current medications, continue with no added salt diet. Pt has been encouraged to exercise daily. The pt has been advised to call the office if there are any acute concerns about change in blood pressure readings at home. Diabetes Mellitus - controlled - per recent FSBS reports. I have recommended for the patient to have follow up labs prior to the next office visit. The patient has been instructed to continue with current medications as previously directed, continue with regular FSBS monitoring to assure continued control of diabetes. Pt to call for any acute concerns, complaints, or if the blood glucose readings are starting to become less controlled. GERD - gave sample of dexilant TAKE TWO AMLODIPINE - FOR A TOTAL OF 10MG DAILY. . Hypertension - uncontrolled - the patient's medications have been modified as documented in the visit note. The patient has been counseled to cut back on salt in diet for a no added salt diet, low fat diet, start an exercise program with low weight bearing exercises and higher aerobic activity for heart health. The patient is to check blood pressure readings as an outpatient and either fax, call, or email the readings to the office next week for practitioner to review. The pt is to call for acute concerns. DM - FSBS show stability - no change in plan at this time. . injection today . Sinusitis - Pt has acute infection - pain in face, maxillary region, Pt informed to use decongestant, RX given to patient, sinus rinses also recommended. Call if symptoms do not show improvement. Allergies - chronic - recommended pt to use allergy medication as prescribed. Pt has been counseled as to the appropriate use of the medication. Pt to call if allergy symptoms are not controlled with the medication. If using nasal spray, instructions as follows: Nasal spray- use twice daily, one spray per nostril twice daily, after 30 minutes, rinse out nose with saline spray.. Use opposite hand per nostril to spray in the nasal steroid allergy spray. . Diabetes Mellitus - controlled - per recent FSBS reports. I have recommended for the patient to have follow up labs prior to the next office visit. The patient has been instructed to continue with current medications as previously directed, continue with regular FSBS monitoring to assure continued control of diabetes. Pt to call for any acute concerns, complaints, or if the blood glucose readings are starting to become less controlled. Otalgia - dizziness - Air fluid level in both ears - persistent for several months despite treatment - I have recommended pt to have a referral to dr[facility] calvo [facility] after March 24 Hypertension - well controlled - continue with current medications, continue with no added salt diet. Pt has been encouraged to exercise daily. The pt has been advised to call the office if there are any acute concerns about change in blood pressure readings at home. decrease the metoprolol to 1/2 pill twice daily start on clonidine 1/2 pill twice daily bring by heart rate and blood pressure readings to the office in 2 weeks keep all other medications as currently taking except for the changes listed above. . Hypertension - uncontrolled - the patient's medications have been modified as documented in the visit note. The patient has been counseled to cut back on salt in diet for a no added salt diet, low fat diet, start an exercise program with low weight bearing exercises and higher aerobic activity for heart health. The patient is to check blood pressure readings as an outpatient and either fax, call, or email the readings to the office next week for practitioner to review. The pt is to call for acute concerns. decrease the metoprolol to 1/2 pill twice daily start on clonidine 1/2 pill twice daily bring by heart rate and blood pressure readings to the office in 2 weeks keep all other medications as currently taking except for the changes listed above. . Hypertension - uncontrolled - the patient's medications have been modified as documented in the visit note. The patient has been counseled to cut back on salt in diet for a no added salt diet, low fat diet, start an exercise program with low weight bearing exercises and higher aerobic activity for heart health. The patient is to check blood pressure readings as an outpatient and either fax, call, or email the readings to the office next week for practitioner to review. The pt is to call for acute concerns. add on doxazosin 4mg at hs - monitor pressures. DM- improved control - FSBS report shows levels averaging in the 90-110 range. Nasal spray- use twice daily, one spray per nostril twice daily, after 30 minutes, rinse out nose with saline spray.. Use opposite hand per nostril to spray in the nasal steroid allergy spray. . Hypertension - uncontrolled - the patient's medications have been modified as documented in the visit note. The patient has been counseled to cut back on salt in diet for a no added salt diet, low fat diet, start an exercise program with low weight bearing exercises and higher aerobic activity for heart health. The patient is to check blood pressure readings as an outpatient and either fax, call, or email the readings to the office next week for practitioner to review. The pt is to call for acute concerns. Medication increased 5 days ago Diabetes Mellitus - controlled - per recent FSBS reports. I have recommended for the patient to have follow up labs prior to the next office visit. The patient has been instructed to continue with current medications as previously directed, continue with regular FSBS monitoring to assure continued control of diabetes. Pt to call for any acute concerns, complaints, or if the blood glucose readings are starting to become less controlled. . Hypertension - well controlled - continue with current medications, continue with no added salt diet. Pt has been encouraged to exercise daily. The pt has been advised to call the office if there are any acute concerns about change in blood pressure readings at home. Low back and hip pain - xray of lumbar spine - negative for acute injury, check xray of right hip. Diabetes Mellitus - controlled - per recent FSBS reports. I have recommended for the patient to have follow up labs prior to the next office visit. The patient has been instructed to continue with current medications as previously directed, continue with regular FSBS monitoring to assure continued control of diabetes. Pt to call for any acute concerns, complaints, or if the blood glucose readings are starting to become less controlled. recommend shingles vaccine . Medicare Exam - today we discussed the patients past history, immunizations, preventative exams/evaluations - colonoscopy, fecal occult blood testing, routine labs for renal function, glucose, cholesterol, osteoporosis evaluations, cardiovascular testing and cancer screenings. We have also discussed mental health and the signs/symptoms of depression. The patient was advised of home safety evaluat ions and the need to make sure that as the aging process continues, we need to be aware of different ways to make the home a safer place to reside. The patient has also been counseled that exercise is necessary - and of utmost importance as we age to help decrease fall risk and to maintain independence in the home. Today we discussed the need for the patient to create paperwork for Advanced directives as well as for the patient to provide this office with a copy of her DOPA paperwork for health care surrogate. corcidin hbp (for decongestion) get vitamin c take 500mg twice daily . Bronchitis - acute case of bronchitis identified. Pt has been given antibiotics, breathing treatments as appropriate, and pt has been instructed to call if symptoms are not improved, or if symptoms acutely worsen. . Persistent vergito with bilateral air-fluid levels and otalgia - pt has an appointment with ENT tomorrow - will defer treatment to ENT. Hyperlipidemia - pt has been counseled about appropriate diet, exercise, and need for low fat food choices. I have discussed the need for the patient to take medications as prescribed. If the patient has negative side effects from the medication, they are to CALL the office and not abruptly discontinue the medication without discussion with a practitioner in the office. We will check labs in 3-6 months for follow up on the patient's chronic medical problem and to assure normal liver response to medications. Decrease doxazosin to 1 pill - write down blood pressures and heart rates, and bring a copy of them to me in a week. Let me know before that if your heart rate is still in the 40s. Medicare Exam - today we discussed the patients past history, immunizations, preventative exams/evaluations - colonoscopy, fecal occult blood testing, routine labs for renal function, glucose, cholesterol, osteoporosis evaluations, cardiovascular testing and cancer screenings. We have also discussed mental health and the signs/symptoms of depression. The patient was advised of home safety evaluations and the need to make sure that as the aging process continues, we need to be aware of different ways to make the home a safer place to reside. The patient has also been counseled that exercise is necessary - and of utmost importance as we age to help decrease fall risk and to maintain independence in the home. Today we discussed the need for the patient to create paperwork for Advanced directives as well as for the patient to provide this office with a copy of her DOPA paperwork for health care surrogate. . Diabetes Mellitus - controlled - per recent FSBS reports. I have recommended for the patient to have follow up labs prior to the next office visit. The patient has been instructed to continue with current medications as previously directed, continue with regular FSBS monitoring to assure continued control of diabetes. Pt to call for any acute concerns, complaints, or if the blood glucose readings are starting to become less controlled. Hypertension - well controlled - continue with current medications, continue with no added salt diet. Pt has been encouraged to exercise daily. The pt has been advised to call the office if there are any acute concerns about change in blood pressure readings at home. Hyperlipidemia - pt has been counseled about appropriate diet, exercise, and need for low fat food choices. I have discussed the need for the patient to take medications as prescribed. If the patient has negative side effects from the medication, they are to CALL the office and not abruptly discontinue the medication without discussion with a practitioner in the office. We will check labs in 3-6 months for follow up on the patient's chronic medical problem and to assure normal liver response to medications. Kenalog shot today. Flonase nasal spray twice a day Claritin daily Doxazosin 1.5 pill in the morning and 1 pill at night Breathing treatments twice a day for 2 days and as needed for wheezing/shortness of breath . Allergies - chronic - recommended pt to use allergy medication as prescribed. Pt has been counseled as to the appropriate use of the medication. Pt to call if allergy symptoms are not controlled with the medication. If using nasal spray, instructions as follows: Nasal spray- use twice daily, one spray per nostril twice daily, after 30 minutes, rinse out nose with saline spray.. Use opposite hand per nostril to spray in the nasal steroid allergy spray. Sinusitis - Pt has acute infection - pain in face, maxillary region, Pt informed to use decongestant, RX given to patient, sinus rinses also recommended. Call if symptoms do not show improvement. Otitis Media - discussed the diagnosis with the patient, script sent electronically to the pharmacy for treatment of the infection. The disease course was discussed and the need to notify the clinic if symptoms do not improve or if they acutely worsen. flonase nasal spray claritin or zyrtec daily prednisone 20mg morning and noon x 5 days monitor blood sugars stop clonidine hydralazine 10mg TID prn SBP over 150 . Hypertension - uncontrolled - the patient's medications have been modified as documented in the visit note. The patient has been counseled to cut back on salt in diet for a no added salt diet, low fat diet, start an exercise program with low weight bearing exercises and higher aerobic activity for heart health. The patient is to check blood pressure readings as an outpatient and either fax, call, or email the readings to the office next week for practitioner to review. The pt is to call for acute concerns. Allergies - chronic - recommended pt to use allergy medication as prescribed. Pt has been counseled as to the appropriate use of the medication. Pt to call if allergy symptoms are not controlled with the medication. If using nasal spray, instructions as follows: Nasal spray- use twice daily, one spray per nostril twice daily, after 30 minutes, rinse out nose with saline spray.. Use opposite hand per nostril to spray in the nasal steroid allergy spray. Stay off of your bystolic Stop the atorvastatin (lipitor) Decrease doxazosin to 1/2 tab twice a day Keep monitoring heart rates and blood pressures I will send you some nausea medication, stay away from milk products while acutely ill with diarrhea and nausea and emesis as it may worsen the symptoms. Liquids initially until the nausea improves, then recommend to advance to bland diet for 1 day, then advance as tolerated. Call if symptoms not improved. will check urine sample - will send antibiotic if needed. If palpitations continue will order a holter monitor - portable monitor to monitor your heart rate Consider referral for welfare specialist for possible stress test if needed. Call me tomorrow and let me know how you are feeling . Hypertension, dizziness, bradycardia - uncontrolled - will refer to cardiology - the patient's medications have been modified as documented in the visit note. The patient has been counseled to cut back on salt in diet for a no added salt diet, low fat diet, start an exercise program with low weight bearing exercises and higher aerobic activity for heart health. The patient is to check blood pressure readings as an outpatient and either fax, call, or email the readings to the office next week for practitioner to review. The pt is to call for acute concerns. Gastroenteritis - discussed need to stay away from milk products while acutely ill with diarrhea and nausea and emesis as it may worsen the symptoms. Liquids initially until the nausea improves, then recommend to advance to bland diet for 1 day, then advance as tolerated. Call if symptoms not improved. Diabetes Mellitus - I have recommended for the patient to have follow up labs prior to the next office visit. The patient has been instructed to continue with current medications as previously directed, continue with regular FSBS monitoring to assure continued control of diabetes. Pt to call for any acute concerns, complaints, or if the blood glucose readings are starting to become less controlled. I have recommended for the patient to follow more strictly to the diabetic diet as discussed in clinic to allow for greater blood glucose control. Stay off of your bystolic Stop the atorvastatin (lipitor) Decrease doxazosin to 1/2 tab twice a day Keep monitoring heart rates and blood pressures I will send you some nausea medication, stay away from milk products while acutely ill with diarrhea and nausea and emesis as it may worsen the symptoms. Liquids initially until the nausea improves, then recommend to advance to bland diet for 1 day, then advance as tolerated. Call if symptoms not improved. will check urine sample - will send antibiotic if needed. If palpitations continue will order a holter monitor - portable monitor to monitor your heart rate Consider referral for welfare specialist for possible stress test if needed. Call me tomorrow and let me know how you are feeling . Hypertension, dizziness, bradycardia - uncontrolled - will refer to cardiology - the patient's medications have been modified as documented in the visit note. The patient has been counseled to cut back on salt in diet for a no added salt diet, low fat diet, start an exercise program with low weight bearing exercises and higher aerobic activity for heart health. The patient is to check blood pressure readings as an outpatient and either fax, call, or email the readings to the office next week for practitioner to review. The pt is to call for acute concerns. Gastroenteritis - discussed need to stay away from milk products while acutely ill with diarrhea and nausea and emesis as it may worsen the symptoms. Liquids initially until the nausea improves, then recommend to advance to bland diet for 1 day, then advance as tolerated. Call if symptoms not improved. Diabetes Mellitus - I have recommended for the patient to have follow up labs prior to the next office visit. The patient has been instructed to continue with current medications as previously directed, continue with regular FSBS monitoring to assure continued control of diabetes. Pt to call for any acute concerns, complaints, or if the blood glucose readings are starting to become less controlled. I have recommended for the patient to follow more strictly to the diabetic diet as discussed in clinic to allow for greater blood glucose control. VOLTAREN GEL TO [employer] CONTINUE TO MONITOR BLOOD PRESSURE AND PULSE AND BRING LOG TO YOUR NEXT APPOINTMENT . Hypertension - well controlled - continue with current medications, continue with no added salt diet. Pt has been encouraged to exercise daily. The pt has been advised to call the office if there are any acute concerns about change in blood pressure readings at home. Sciatica- exercises discussed with the patient, pt to continue with medications as directed. Use voltaren gel -only use tramadol as needed for breakthrough pain. Pt is to call if the symptoms do not improve or if they worsen. INCREASE FLONASE TO TWICE DAILY zpack . Earache-allergies- Pt has been counseled as to the appropriate use of the medication. Pt to call if allergy symptoms are not controlled with the medication. If using nasal spray, instructions as follows: Nasal spray- use twice daily, one spray per nostril twice daily, after 30 minutes, rinse out nose with saline spray.. Use opposite hand per nostril to spray in the nasal steroid allergy spray. increase clonidine to a full pill twice daily.. Hypertension - uncontrolled - the patient's medications have been modified as documented in the visit note. The patient has been counseled to cut back on salt in diet for a no added salt diet, low fat diet, start an exercise program with low weight bearing exercises and higher aerobic activity for heart health. The patient is to check blood pressure readings as an outpatient and either fax, call, or email the readings to the office next week for practitioner to review. The pt is to call for acute concerns. Increase clonidine to a full pill twice daily. Hyperlipidemia - pt has been counseled about appropriate diet, exercise, and need for low fat food choices. I have discussed the need for the patient to take medications as prescribed. If the patient has negative side effects from the medication, they are to CALL the office and not abruptly discontinue the medication without discussion with a practitioner in the office. We will check labs in 3-6 months for follow up on the patient's chronic medical problem and to assure normal liver response to medications. Diabetes Mellitus - controlled - per recent FSBS reports. I have recommended for the patient to have follow up labs prior to the next office visit. The patient has been instructed to continue with current medications as previously directed, continue with regular FSBS monitoring to assure continued control of diabetes. Pt to call for any acute concerns, complaints, or if the blood glucose readings are starting to become less controlled. . Hypertension - well controlled - continue with current medications, continue with no added salt diet. Pt has been encouraged to exercise daily. The pt has been advised to call the office if there are any acute concerns about change in blood pressure readings at home. Diabetes Mellitus - controlled - per recent FSBS reports. I have recommended for the patient to have follow up labs prior to the next office visit. The patient has been instructed to continue with current medications as previously directed, continue with regular FSBS monitoring to assure continued control of diabetes. Pt to call for any acute concerns, complaints, or if the blood glucose readings are starting to become less controlled. Hyperlipidemia - pt has been counseled about appropriate diet, exercise, and need for low fat food choices. I have discussed the need for the patient to take medications as prescribed. If the patient has negative side effects from the medication, they are to CALL the office and not abruptly discontinue the medication without discussion with a practitioner in the office. We will check labs in 3-6 months for follow up on the patient's chronic medical problem and to assure normal liver response to medications. Carpal tunnel syndrome - recommended pt to use wrist braces at night, call if not improving. stop the doxazosin meclizine change to 1/2 pill three times a day come back on Wednesday for blood pressure check . Persistent vergito with bilateral air-fluid levels and ear pain. Pt was seen by Dr. Calvo- she did not like his response to her complaints. I have recommended a referral to ENT in [facility]. I suspect she may need myringotomy tubes. Pt to continue with flonase. Orthostatic hypotension - dc doxazosin. Monitor blood pressures at home. stop the doxazosin meclizine change to 1/2 pill three times a day come back on Wednesday for blood pressure check OKAY TO TRY THE TRAMADOL -START WITH 1/2 PILL TO MAKE SURE YOU TOLERATE IT CONTINUE VOLTAREN GEL USE PARAFON FORTE NEEDED CONSIDER PHYSICAL THERAPY FOR YOUR BACK PAIN . Chronic Back pain - the patient was counseled to always first attempt to use modalities other than pain medication for alleviation of the muscle spasms and pain. The patient was also encouraged to continue with back exercises as previously directed. Pt is to use pain medication as directed. If pain medications are used inappropriately or early refills are requested, the patient understands that is a breech of trust/contract and could result in the patient's termination from this medical practice. RECOMMEND PT TO EVALUATE AND TREAT -PATIENT WILL CONSIDER AND DISCUSS WITH DR CAMEJO AT HER NEXT APPOINTMENT . Hypertension - uncontrolled today in the office - pt did not take her home medications until right before her appt today. I have not modified her medication today. The patient has been counseled to cut back on salt in diet for a no added salt diet, low fat diet, start an exercise program with low weight bearing exercises and higher aerobic activity for heart health. The patient is to check blood pressure readings as an outpatient and either fax, call, or email the readings to the office next week for practitioner to review. The pt is to call for acute concerns. Cyst left eye - rx for erythromycin ointment Left foot 5th metatarsal - recommended referral to Dr. Anders in [place]
[2019-03-08] MEDS ORDERED: ONDANSETRON 4 MG/2 ML (SDV) Z0FRAN IVP ONE (15:15)
[2019-03-08] MEDS ORDERED: fentaNYL INJECTION 100 MCG/2 ML AMP IVP ONE (15:15)
[2019-03-08 15:18] LABS: BASOPHILS # (AUTO) 0.1 10^3/uL (0.0-0.1); BASOPHILS % (AUTO) 0 % (0-10); EOSINOPHILS # (AUTO) 0.1 10^3/uL (0.0-0.3); EOSINOPHILS % (AUTO) 1 % (0-10); HEMATOCRIT 45 % (35-52); HEMOGLOBIN 15.8 G/DL (11.5-16.0); LYMPHOCYTES # (AUTO) 3.1 X 10^3 (1.0-4.0); LYMPHOCYTES % (AUTO) 23 % (12-44); MEAN CORPUSCULAR HEMOGLOBIN 30 PG (25-34); MEAN CORPUSCULAR HGB CONC 35 G/DL (32-36); MEAN CORPUSCULAR VOLUME 86 FL (80-99); MEAN PLATELET VOLUME 9.9 FL (7.4-10.4); MONOCYTES # (AUTO) 0.9 X 10^3 (0.0-1.0); MONOCYTES % (AUTO) 7 % (0-12); NEUTROPHILS # (AUTO) 9.3 X 10^3 (1.8-7.8); NEUTROPHILS % (AUTO) 69 % (42-75); PLATELET COUNT 299 10^3/uL (130-400); RED CELL DISTRIBUTION WIDTH 12.9 % (10.0-14.5); WHITE BLOOD COUNT 13.4 10^3/uL (4.3-11.0)
--- OUTSIDE RECORDS SUMMARY | 2019-03-08 15:28 | XMS REPORT | CCD ---
Author Author Fifi Camejo Organization Fifi Camejo MD, [facility] Address [address] [place] [address] Phone Care Team Providers Care Aerial Photograph Interpreter Name Role Phone PP Unavailable CCM Unavailable Summary Purpose Interface Exchange Insurance Providers Payer name Policy type / Coverage type Covered alliance party ID Effective Begin Date Effective End Date WPS Medicare Part B Medicare Part B [id number] 2018 Unknown FOR LIFE WPS Medicare Part B [id number] Unknown Family history Father Diagnosis Age At Onset Cancer Unknown Brother Diagnosis Age At Onset Diabetes mellitus Type 2 Unknown Heart Attack Unknown Social History Social History Element Codes Description Effective Dates Marital status Unknown Wu 11/05/2016 Number of children Unknown 1 07/06/2016 Employment Unknown Retired 07/06/[address]: 371676535 Never smoker 07/06/[address]: 210430537 Never drinks alcohol 07/06/2016 Allergies, Adverse Reactions, Alerts Substance Reaction Codes Entered Date Inactivated Date Status Protonix hives RxNorm: 906472 09/06/2018 No Inactive Date Active IV DYE, IODINE CONTAINING emesis, emesis Unknown 04/28/2018 No Inactive Date Active MORPHINE AND RELATED Unknown 04/28/2018 No Inactive Date Active Penicillin Unknown 07/06/2016 No Inactive Date Active Past Medical History Illness Codes Condition Status Onset Date Resolved Date Lumbago with sciatica, right side ICD-9: 724.3 ICD-10: M54.41 Active 01/30/2019 Unknown Muscle spasm of back ICD- 9: 724.8 ICD-10: M62.830 Active 02/14/2019 Unknown Sciatica Unknown Active 01/30/2019 Unknown Essential (primary) hypertension ICD-9: 401.1 ICD-10: I10 Active 09/20/2016 Unknown Other allergic rhinitis ICD-9: 477.8 ICD-10: [...] 9: 272.2 ICD-10: E78.2 Active 07/05/2016 Unknown Type 2 diabetes mellitus without complications ICD-9: 250.00 ICD-10: E11.9 Active 09/20/2016 Unknown Encounter for screening mammogram for malignant [...] Problems Condition Codes Effective Dates Condition Status Lumbago with sciatica, right side ICD-9: 724.3 ICD-10: M54.41 01/30/2019 Active Muscle spasm of back ICD- 9: 724.8 ICD-10: M62.830 02/14/2019 Active Sciatica Unknown 01/30/2019 Active Essential (primary) hypertension ICD-9: 401.1 ICD-10: I10 09/20/2016 Active Other allergic rhinitis ICD-9: 477.8 ICD-10: J30.89 03/12/2017 Active Cough ICD-9: 786.2 ICD-10: R05 11/05/2016 Active Dysuria ICD-9: 788.1 ICD-10: R30.0 09/17/2016 Active Other acute sinusitis ICD- 9: 461.8 ICD-10: J01.80 03/12/2017 Active Encounter for general adult medical examination with abnormal findings ICD-9: V70.0 ICD-10: Z00.01 03/30/2017 Active Mixed hyperlipidemia ICD- 9: 272.2 ICD-10: E78.2 07/05/2016 Active Type 2 diabetes mellitus without complications ICD-9: 250.00 ICD-10: E11.9 09/20/2016 Active Encounter for screening mammogram for malignant [...] Parafon Forte DSC 500 mg tablet RxNorm: 303876 1 Tablet(s) PO qid prn 02/15/2019 05/15/2019 Active Parafon Forte DSC 500 mg tablet RxNorm: 464016 1 Tablet(s) PO qid prn 02/14/2019 02/13/2019 Inactive Parafon Forte DSC 500 mg tablet RxNorm: 432784 1 Tablet(s) PO qid prn 02/13/2019 02/13/2019 Inactive diclofenac 1 % topical gel RxNorm: 866486 4 Gram(s) TOP QID 01/31/2019 03/01/2019 Active tramadol 50 mg tablet RxNorm: 413799 1 Tablet(s) PO qid prn 01/30/2019 No Stop Date Active Voltaren 1 % topical gel RxNorm: 214480 4 Gram(s) TOP QID 01/30/2019 01/30/2019 Inactive Parafon Forte DSC 500 mg tablet RxNorm: 125776 1 Tablet(s) PO qid prn 01/30/2019 02/12/2019 Inactive diclofenac 1 % topical gel RxNorm: 938031 4 Gram(s) TOP QID 01/30/2019 01/29/2019 Inactive diclofenac 1 % topical gel RxNorm: 866228 4 Gram(s) TOP QID 01/30/2019 01/30/2019 Inactive atorvastatin 10 mg tablet RxNorm: 708917 1 Tablet(s) PO QPM 01/16/2019 01/10/2020 Active hydralazine 10 mg tablet RxNorm: 778070 1 Tablet(s) PO TID PRN 01/16/2019 07/14/2019 Active prn sbp over 150 alprazolam 0.5 mg tablet RxNorm: 253411 1 Tablet(s) PO TID as needed anxiety 01/16/2019 07/14/2019 Active fluticasone propionate 50 mcg/actuation nasal spray,suspension RxNorm: 7216658 2 Means daily USE 1 SPRAY NASALLY TWICE A DAY 01/16/2019 01/10/2020 Active hydralazine 10 mg tablet RxNorm: 551809 1 Tablet(s) PO TID PRN 01/16/2019 01/15/2019 Inactive prn sbp over 150 clonidine HCl 0.1 mg tablet RxNorm: 128702 1/2 Tablet(s) PO QHS 01/16/2019 01/16/2019 Inactive cefdinir 300 mg capsule RxNorm: 481448 1 Capsule(s) PO BID 01/09/2019 01/15/2019 Inactive cefdinir 300 mg capsule RxNorm: 332706 1 Capsule(s) PO BID 01/09/2019 01/08/2019 Inactive Zithromax Z-Juan 250 mg tablet RxNorm: 672749 1 Tablet(s) PO UD 01/03/2019 01/07/2019 Inactive zpack as directed Kenalog 40 mg/mL suspension for injection RxNorm: 0379452 Milliliter(s) Inj 01/02/2019 01/02/2019 Inactive Zithromax Z-Juan 250 mg tablet RxNorm: 043259 1 Tablet(s) PO UD 12/30/2018 01/02/2019 Inactive zpack as directed metoprolol tartrate 50 mg tablet RxNorm: 709559 1/2 TABLET(S) PO BID 12/02/2018 No Stop Date Active amlodipine 10 mg tablet RxNorm: 794201 TAKE 1 TABLET DAILY 10/24/2018 No Stop Date Active cefdinir 300 mg capsule RxNorm: 954879 1 Capsule(s) PO BID 10/19/2018 10/22/2018 Inactive Zithromax Z-Juan 250 mg tablet RxNorm: 887085 1 Tablet(s) PO UD 10/19/2018 10/23/2018 Inactive zpack as directed glimepiride 4 mg tablet RxNorm: 360469 Tablet(s) 1 TABLET(S) PO DAILY 10/12/2018 No Stop Date Active cefdinir 300 mg capsule RxNorm: 707273 1 Capsule(s) PO BID 10/12/2018 10/18/2018 Inactive Zithromax Z-Juan 250 mg tablet RxNorm: 358667 1 Tablet(s) PO UD 10/12/2018 10/16/2018 Inactive zpack as directed Tessalon Perles 100 mg capsule RxNorm: 652342 2 Capsule(s) PO TID as needed cough 10/12/2018 10/16/2018 Inactive Kenalog 40 mg/mL suspension for injection RxNorm: 9737363 1 Milliliter(s) Inj 10/12/2018 10/12/2018 Inactive Zithromax Z-Juan 250 mg tablet RxNorm: 885967 1 Tablet(s) PO UD 08/22/2018 08/26/2018 Inactive zpack as directed clonidine HCl 0.1 mg tablet RxNorm: 042133 1 Tablet(s) PO QAM 08/16/2018 01/15/2019 Inactive losartan 100 mg tablet RxNorm: 707420 1 TABLET(S) PO DAILY FOR HIGH BLOOD PRESSURE 08/12/2018 No Stop Date Active alprazolam 0.5 mg tablet RxNorm: 776591 1 Tablet(s) PO TID as needed anxiety 06/30/2018 12/26/2018 Inactive fluticasone 50 mcg/actuation nasal spray,suspension RxNorm: 4534581 USE 1 SPRAY NASALLY TWICE A DAY 05/06/2018 01/15/2019 Inactive clonidine HCl 0.1 mg tablet RxNorm: 504970 1 Tablet(s) PO BID 04/14/2018 08/15/2018 Inactive clonidine HCl 0.1 mg tablet RxNorm: 225134 1 Tablet(s) PO TID 04/12/2018 04/13/2018 Inactive Zithromax Z-Juan 250 mg tablet RxNorm: 048747 1 Tablet(s) PO UD 01/20/2018 08/21/2018 Inactive disregard first rx for 1 - patient needs 3 packs-please dispense generic azithromycin Zithromax Z-Juan 250 mg tablet RxNorm: 826158 1 Tablet(s) PO UD 01/20/2018 01/19/2018 Inactive Zithromax Z-Juan 250 mg tablet RxNorm: 851235 1 Tablet(s) PO UD 01/20/2018 01/19/2018 Inactive disregard first rx for 1 - patient needs 3 packs Zithromax Z-Juan 250 mg tablet RxNorm: 735950 1 Tablet(s) PO UD 01/20/2018 01/19/2018 Inactive atorvastatin 10 mg tablet RxNorm: 262959 1 Tablet(s) PO QPM 12/30/2017 12/24/2018 Inactive atorvastatin 10 mg tablet RxNorm: 848374 1 Tablet(s) PO QPM 12/30/2017 12/29/2017 Inactive clonidine HCl 0.1 mg tablet RxNorm: 447759 1 Tablet(s) PO BID 12/29/2017 04/11/2018 Inactive Lipitor 10 mg tablet RxNorm: 999471 1 Tablet(s) PO QPM 12/29/2017 12/29/2017 Inactive OKAY TO DISPENSE GENERIC metoprolol tartrate 50 mg tablet RxNorm: 670267 1/2 Tablet(s) PO BID 12/29/2017 12/01/2018 Inactive alprazolam 0.5 mg tablet RxNorm: 102911 1 Tablet(s) PO TID as needed anxiety 11/18/2017 05/16/2018 Inactive glimepiride 4 mg tablet RxNorm: 499038 1 TABLET(S) PO DAILY 11/15/2017 10/11/2018 Inactive alprazolam 0.5 mg tablet RxNorm: 142497 1 Tablet(s) PO TID as needed anxiety 09/20/2017 11/17/2017 Inactive Zithromax Z-Juan 250 mg tablet RxNorm: 679500 1 Tablet(s) PO UD 09/20/2017 12/28/2017 Inactive Zithromax Z-Juan 250 mg tablet RxNorm: 624815 1 Tablet(s) PO UD 09/14/2017 09/19/2017 Inactive clonidine HCl 0.1 mg tablet RxNorm: 538962 1/2 Tablet(s) PO BID 08/24/2017 12/28/2017 Inactive amlodipine 10 mg tablet RxNorm: 056798 1 Tablet(s) PO daily 08/24/2017 08/18/2018 Inactive erythromycin 5 mg/gram (0.5 %) eye ointment RxNorm: 015914 1 Gram(s) ophthalmic (eye) QID left eye cyst 08/24/2017 09/06/2017 Inactive losartan 100 mg tablet RxNorm: 801224 1 Tablet(s) PO daily for high blood pressure 08/16/2017 08/10/2018 Inactive metoprolol tartrate 50 mg tablet RxNorm: 501998 1/2 Tablet(s) PO BID 07/26/2017 12/28/2017 Inactive clonidine HCl 0.1 mg tablet RxNorm: 618384 1/2 Tablet(s) PO BID 07/26/2017 08/23/2017 Inactive metoprolol tartrate 50 mg tablet RxNorm: 045430 1 Tablet(s) PO BID 07/21/2017 07/25/2017 Inactive amlodipine 10 mg tablet RxNorm: 192059 1 TABLET(S) PO DAILY 06/29/2017 08/23/2017 Inactive Lipitor 10 mg tablet RxNorm: 311760 1 Tablet(s) PO QPM 05/27/2017 12/28/2017 Inactive OKAY TO DISPENSE GENERIC alprazolam 0.5 mg tablet RxNorm: 395929 1 Tablet(s) PO TID as needed anxiety 05/18/2017 08/15/2017 Inactive hydrochlorothiazide 12.5 mg tablet RxNorm: 653249 1 Tablet(s) PO daily 04/22/2017 05/21/2017 Inactive hydrochlorothiazide 12.5 mg tablet RxNorm: 527420 1 Tablet(s) PO daily 04/22/2017 04/21/2017 Inactive Cipro 500 mg tablet RxNorm: 283602 1 Tablet(s) PO BID 04/16/2017 04/22/2017 Inactive Zofran 4 mg tablet RxNorm: 922280 1 Tablet(s) PO BID as needed nausea and vomitting 04/15/2017 04/19/2017 Inactive Lipitor 10 mg tablet RxNorm: 201918 1 Tablet(s) PO QPM 03/30/2017 05/26/2017 Inactive OKAY TO DISPENSE GENERIC Kenalog 40 mg/mL suspension for injection RxNorm: 4186487 1 Milliliter(s) Inj 03/16/2017 03/16/2017 Inactive doxazosin 4 mg tablet RxNorm: 909083 1.5 Tablet(s) PO BID 03/16/2017 05/02/2017 Inactive prednisone 10 mg tablets in a dose pack RxNorm: 435288 Tablet(s) take dose pack as directed PO take with food 03/16/2017 05/23/2017 Inactive Kenalog 40 mg/mL suspension for injection RxNorm: 4726047 Milliliter(s) Inj 03/12/2017 03/12/2017 Inactive Zithromax Z-Juan 250 mg tablet RxNorm: 249003 1 Tablet(s) PO daily 03/11/2017 03/10/2017 Inactive zpack as directed Zithromax Z-Juan 250 mg tablet RxNorm: 117078 1 Tablet(s) PO daily 03/11/2017 03/15/2017 Inactive zpack as directed doxazosin 4 mg tablet RxNorm: 820071 1.5 Tablet(s) PO BID 02/12/2017 03/15/2017 Inactive fluticasone 50 mcg/actuation nasal spray,suspension RxNorm: 6946228 1 SPRAY NASAL BID 02/05/2017 05/05/2018 Inactive metoprolol tartrate 75 mg tablet RxNorm: 4912576 1 Tablet(s) PO BID 01/29/2017 07/19/2017 Inactive metoprolol tartrate 75 mg tablet RxNorm: 3023866 1 Tablet(s) PO BID 01/29/2017 01/28/2017 Inactive doxazosin 4 mg tablet RxNorm: 919988 1 Tablet(s) PO BID 01/20/2017 02/11/2017 Inactive pantoprazole 40 mg tablet,delayed release RxNorm: 909099 1 Tablet(s) PO daily 12/24/2016 01/19/2017 Inactive pantoprazole 40 mg tablet,delayed release RxNorm: 711948 1 Tablet(s) PO daily 12/24/2016 12/23/2016 Inactive alprazolam 0.5 mg tablet RxNorm: 756476 1 Tablet(s) PO TID as needed anxiety 12/03/2016 04/01/2017 Inactive fluticasone 50 mcg/actuation nasal spray,suspension RxNorm: 4920977 1 Means NASAL BID 11/25/2016 12/24/2016 Inactive Dexilant 60 mg capsule, delayed release RxNorm: 107768 1 Capsule(s) PO daily 11/25/2016 11/24/2016 Inactive fluticasone 50 mcg/actuation nasal spray,suspension RxNorm: 9614661 1 Means NASAL BID 11/25/2016 11/24/2016 Inactive fluticasone 50 mcg/actuation nasal spray,suspension RxNorm: 4606110 1 Means NASAL BID 11/25/2016 11/24/2016 Inactive Dexilant 60 mg capsule, delayed release RxNorm: 455746 1 Capsule(s) PO daily 11/25/2016 12/23/2016 Inactive ProAir RespiClick 90 mcg/actuation breath activated RxNorm: 5163781 1 INH bid and QID as needed 11/19/2016 05/17/2017 Inactive Please send STAT Flonase Allergy Relief 50 mcg/actuation nasal spray,suspension RxNorm: 5208980 1 Means NASAL BID 11/19/2016 11/24/2016 Inactive glimepiride 4 mg tablet RxNorm: 228176 1 Tablet(s) PO daily 11/19/2016 11/13/2017 Inactive metoprolol tartrate 50 mg tablet RxNorm: 343947 1 Tablet(s) PO BID 11/19/2016 01/28/2017 Inactive Flonase Allergy Relief 50 mcg/actuation nasal spray,suspension RxNorm: 3239473 1 Means NASAL BID 11/17/2016 11/18/2016 Inactive metoprolol tartrate 50 mg tablet RxNorm: 315263 1 Tablet(s) PO BID 11/17/2016 11/18/2016 Inactive ProAir RespiClick 90 mcg/actuation breath activated RxNorm: 1559172 1 INH bid and QID as needed 11/17/2016 11/16/2016 Inactive glimepiride 4 mg tablet RxNorm: 544748 1 Tablet(s) PO daily 11/17/2016 11/18/2016 Inactive ProAir RespiClick 90 mcg/actuation breath activated RxNorm: 8017379 1 INH bid and QID as needed 11/17/2016 11/18/2016 Inactive Please send STAT Kenalog 40 mg/mL suspension for injection RxNorm: 9046830 1 Milliliter(s) Inj 11/05/2016 11/05/2016 Inactive azithromycin 250 mg tablet RxNorm: 005964 Tablet(s) PO 2 tabs on day #1, then daily x 4 days 11/05/2016 12/23/2016 Inactive doxazosin 4 mg tablet RxNorm: 800968 1 Tablet(s) PO QPM 10/02/2016 01/19/2017 Inactive doxazosin 4 mg tablet RxNorm: 905298 1 Tablet(s) PO QPM 09/29/2016 10/01/2016 Inactive doxazosin 4 mg tablet RxNorm: 324172 1 Tablet(s) PO QPM 09/21/2016 09/28/2016 Inactive Cipro 500 mg tablet RxNorm: 160917 1 Tablet(s) PO BID 09/18/2016 09/17/2016 Inactive Cipro 500 mg tablet RxNorm: 415704 1 Tablet(s) PO BID 09/18/2016 09/24/2016 Inactive losartan 100 mg tablet RxNorm: 676680 1 Tablet(s) PO daily for high blood pressure 09/16/2016 09/15/2016 Inactive alprazolam 0.5 mg tablet RxNorm: 581979 1 Tablet(s) PO TID as needed anxiety 09/16/2016 11/14/2016 Inactive losartan 100 mg tablet RxNorm: 512082 1 Tablet(s) PO daily for high blood pressure 09/16/2016 08/15/2017 Inactive amlodipine 10 mg tablet RxNorm: 473418 1 Tablet(s) PO daily 08/03/2016 06/28/2017 Inactive Zyrtec 10 mg tablet RxNorm: 8782267 1 Tablet(s) PO daily 08/03/2016 09/15/2016 Inactive losartan 25 mg tablet RxNorm: 117546 1 Tablet(s) PO daily 07/08/2016 09/15/2016 Inactive Lipitor 10 mg tablet RxNorm: 308937 1 Tablet(s) PO QPM 07/08/2016 07/17/2016 Inactive OKAY TO DISPENSE GENERIC Lipitor 10 mg tablet RxNorm: 473152 1 Tablet(s) PO QPM 07/06/2016 07/07/2016 Inactive OKAY TO DISPENSE GENERIC losartan 25 mg tablet RxNorm: 589370 1 Tablet(s) PO daily 07/06/2016 07/07/2016 Inactive meclizine 25 mg tablet RxNorm: 420876 1 Tablet(s) PO TID as needed No Start Date Active Pazeo 0.7 % eye drops RxNorm: 1388485 Drop(s) ophthalmic (eye) as needed dry eyes No Start Date Active Zithromax Z-Juan 250 mg tablet RxNorm: 419747 1 Tablet(s) PO UD No Start Date 09/13/2017 Inactive glimepiride 4 mg tablet RxNorm: 610162 1 Tablet(s) PO daily No Start Date 11/16/2016 Inactive metoprolol tartrate 100 mg tablet RxNorm: 660305 1 Tablet(s) PO BID No Start Date 07/21/2017 Inactive naproxen 500 mg tablet RxNorm: 609330 1 Tablet(s) PO BID No Start Date 03/23/2017 Inactive amlodipine 5 mg tablet RxNorm: 246861 1 Tablet(s) PO daily No Start Date 08/02/2016 Inactive Parafon Forte DSC 500 mg tablet RxNorm: 181975 1 Tablet(s) PO QID No Start Date 01/29/2019 Inactive metoprolol tartrate 50 mg tablet RxNorm: 760582 1 Tablet(s) PO BID No Start Date 11/16/2016 Inactive Medication Administered Medication Codes Instructions Start Date Status Kenalog 40 mg/mL suspension for injection RxNorm: 1981020 Milliliter 01/02/2019 No longer Active Kenalog 40 mg/mL suspension for injection RxNorm: 6134902 1Milliliter 10/12/2018 No longer Active Kenalog 40 mg/mL suspension for injection RxNorm: 1890982 1Milliliter 03/16/2017 No longer Active Kenalog 40 mg/mL suspension for injection RxNorm: 8026065 Milliliter 03/12/2017 No longer Active Kenalog 40 mg/mL suspension for injection RxNorm: 7331030 1Milliliter 11/05/2016 No longer Active Immunizations Vaccine Codes Date Status Influenza CVX: 141 08/16/2018 completed Influenza CVX: 141 08/10/2017 completed Assessments Condition Codes Effective Dates Muscle spasm of back ICD-10: M62.830 ICD-9: 724.8 02/14/2019 Lumbago with sciatica, right side ICD-10: M54.41 ICD-9: 724.3 02/14/2019 Essential (primary) hypertension ICD-10: I10 ICD-9: 401.1 01/30/2019 Other allergic rhinitis ICD-10: J30.89 ICD-9: 477.8 01/16/2019 Cough ICD-10: R05 ICD-9: 786.2 01/02/2019 Dysuria ICD-10: R30.0 ICD-9: 788.1 12/28/2018 Other acute sinusitis ICD-10: J01.80 ICD-9: 461.8 10/12/2018 Encounter for general adult medical examination with abnormal findings ICD-10: Z00.01 ICD-9: V70.0 09/06/2018 Mixed hyperlipidemia ICD-10: E78.2 ICD-9: 272.2 08/16/2018 Type 2 diabetes mellitus without complications ICD-10: E11.9 ICD-9: 250.00 08/16/2018 Encounter for screening mammogram for malignant [...] Visit Reason For Visit Effective Dates Notes sciatica 02/14/2019 sciatica 01/30/2019 cough 01/16/2019 sinus [...] Lipid Ord30 C/HDL 3.1 Ratio 08/18/2018 Microalbumin Eag647 MicroAlb 7.5 mg/dL 08/18/2018 Cbc With Differential [...] 29.6 pg 08/18/2018 Cbc With Differential Ord2 [place]% 10.6 % 08/18/2018 Cbc With Differential Ord2 [...] 1.69 K/ul 08/18/2018 Cbc With Differential Ord2 [place] ABS# 0.6 K/ul 08/18/2018 Cbc With Differential Ord2 Eos ABS# 0.3 K/ul 08/18/2018 Cbc With Differential Ord2 Baso ABS# 0.0 K/ul 08/18/2018 Comp Metabolic Faz205 NA 137 mEq/L 08/18/2018 Comp Metabolic Mpf860 K 3.8 mEq/L 08/18/2018 Comp Metabolic Osl754 CL 103 mEq/L 08/18/2018 Comp Metabolic Lwo901 CO2 26.0 mEq/L 08/18/2018 Comp Metabolic Atn354 ANION GAP 12 08/18/2018 Comp Metabolic Lku868 GLUCOSE 110 mg/dL 08/18/2018 Comp Metabolic Qqd256 Creat 1.2 mg/dL 08/18/2018 Comp Metabolic Hkw458 eGFR 47 ml/min/1.73m2 08/18/2018 Comp Metabolic Zsg974 BUN 25 mg/dL 08/18/2018 Comp Metabolic Mmv569 B/C Ratio 21.0 Ratio 08/18/2018 Comp Metabolic Hpj058 CALCIUM 9.4 mg/dL 08/18/2018 Comp Metabolic Gon484 ALK PHOS 99 U/L 08/18/2018 Comp Metabolic Lde808 AST(SGOT) 31 U/L 08/18/2018 Comp Metabolic Eea518 ALT(SGPT) 27 U/L 08/18/2018 Comp Metabolic Jzv997 BILI T 0.7 mg/dL 08/18/2018 Comp Metabolic Imp611 ALBUMIN 4.2 g/dL 08/18/2018 Comp Metabolic Eyu209 TPRO 6.7 g/dL 08/18/2018 Comp Metabolic Pry878 GLOB 2.5 g/dL 08/18/2018 Comp Metabolic Fqq849 A/G Ratio 1.7 Ratio 08/18/2018 Comp Metabolic Afm724 Osmo 279 mOsmo 08/18/2018 %Hba1C Vnj592 % HbA1c 99222- 6 6.1 % 08/18/2018 %Hba1C Isg597 Gluc Ave 128 mg/dL 08/18/2018 Tsh Ord6 TSH (3rd IS) 3.93 uIU/mL 08/18/2018 Lipid Ord30 CHOL 146 mg/dL 04/15/2018 Lipid Ord30 HDL 62.0 mg/dl 04/15/2018 Lipid Ord30 TRIG 88 mg/dL 04/15/2018 Lipid Ord30 LDL 66 mg/dL 04/15/2018 Lipid Ord30 C/HDL 2.4 Ratio 04/15/2018 %Hba1C Qme266 % HbA1c 71523- 6 6.3 % 04/15/2018 %Hba1C Xmb068 Gluc Ave 134 mg/dL 04/15/2018 Cbc With [...] 30.2 pg 04/15/2018 Cbc With Differential Ord2 [place]% 6.8 % 04/15/2018 Cbc With Differential Ord2 [...] 2.10 K/ul 04/15/2018 Cbc With Differential Ord2 [place] ABS# 0.5 K/ul 04/15/2018 Cbc With Differential Ord2 Eos ABS# 0.2 K/ul 04/15/2018 Cbc With Differential Ord2 Baso ABS# 0.0 K/ul 04/15/2018 Comp Metabolic Dxd530 NA 140 mEq/L 04/15/2018 Comp Metabolic Wlr444 K 4.3 mEq/L 04/15/2018 Comp Metabolic Wwh431 CL 106 mEq/L 04/15/2018 Comp Metabolic Inu415 CO2 23.0 mEq/L 04/15/2018 Comp Metabolic Yla087 ANION GAP 15 04/15/2018 Comp Metabolic Fyb800 GLUCOSE 90 mg/dL 04/15/2018 Comp Metabolic Mmm060 Creat 1.2 mg/dL 04/15/2018 Comp Metabolic Cca846 eGFR 45 ml/min/1.73m2 04/15/2018 Comp Metabolic Aog691 BUN 28 mg/dL 04/15/2018 Comp Metabolic Onx392 B/C Ratio 22.8 Ratio 04/15/2018 Comp Metabolic Trf418 CALCIUM 9.5 mg/dL 04/15/2018 Comp Metabolic Zaf337 ALK PHOS 95 U/L 04/15/2018 Comp Metabolic Uzd169 AST(SGOT) 20 U/L 04/15/2018 Comp Metabolic Nka308 ALT(SGPT) 13 U/L 04/15/2018 Comp Metabolic Uav995 BILI T 0.5 mg/dL 04/15/2018 Comp Metabolic Ikj314 ALBUMIN 4.1 g/dL 04/15/2018 Comp Metabolic Kgu973 TPRO 6.6 g/dL 04/15/2018 Comp Metabolic Ofm611 GLOB 2.5 g/dL 04/15/2018 Comp Metabolic Vjv386 A/G Ratio 1.6 Ratio 04/15/2018 Comp Metabolic Mue797 Osmo 284 mOsmo 04/15/2018 Comp Metabolic Pvc645 NA 137 mEq/L 02/04/2018 Comp Metabolic Pop210 K 4.0 mEq/L 02/04/2018 Comp Metabolic Rvy098 CL 104 mEq/L 02/04/2018 Comp Metabolic Gpg080 CO2 27.0 mEq/L 02/04/2018 Comp Metabolic Crs941 ANION GAP 10 02/04/2018 Comp Metabolic Tux612 GLUCOSE 212 mg/dL 02/04/2018 Comp Metabolic Msi034 Creat 1.2 mg/dL 02/04/2018 Comp Metabolic Cjh198 eGFR 47 ml/min/1.73m2 02/04/2018 Comp Metabolic Dau633 BUN 20 mg/dL 02/04/2018 Comp Metabolic Yke630 B/C Ratio 16.8 Ratio 02/04/2018 Comp Metabolic Ezj286 CALCIUM 8.9 mg/dL 02/04/2018 Comp Metabolic Rfl434 ALK PHOS 107 U/L 02/04/2018 Comp Metabolic Vqc127 AST(SGOT) 17 U/L 02/04/2018 Comp Metabolic Uzu347 ALT(SGPT) 11 U/L 02/04/2018 Comp Metabolic Enz972 BILI T 0.4 mg/dL 02/04/2018 Comp Metabolic Lcy323 ALBUMIN 3.8 g/dL 02/04/2018 Comp Metabolic Yxd810 TPRO 6.2 g/dL 02/04/2018 Comp Metabolic Kgv895 GLOB 2.4 g/dL 02/04/2018 Comp Metabolic Mrt910 A/G Ratio 1.6 Ratio 02/04/2018 Comp Metabolic Zps534 Osmo 283 mOsmo 02/04/2018 %Hba1C Myj581 % HbA1c 87759- 6 6.3 % 12/30/2017 %Hba1C Khi755 Gluc Ave 134 mg/dL 12/30/2017 Comp Metabolic Lvi215 NA 142 mEq/L 12/30/2017 Comp Metabolic Lbw906 K 4.4 mEq/L 12/30/2017 Comp Metabolic Kas287 CL 103 mEq/L 12/30/2017 Comp Metabolic Tog593 CO2 31.0 mEq/L 12/30/2017 Comp Metabolic Hef739 ANION GAP 12 12/30/2017 Comp Metabolic Ira685 GLUCOSE 119 mg/dL 12/30/2017 Comp Metabolic Awa360 Creat 1.4 mg/dL 12/30/2017 Comp Metabolic Wig891 eGFR 41 ml/min/1.73m2 12/30/2017 Comp Metabolic Yae352 BUN 27 mg/dL 12/30/2017 Comp Metabolic Xuv445 B/C Ratio 20.0 Ratio 12/30/2017 Comp Metabolic Cqo808 CALCIUM 9.9 mg/dL 12/30/2017 Comp Metabolic Zzr600 ALK PHOS 106 U/L 12/30/2017 Comp Metabolic Ixw209 AST(SGOT) 20 U/L 12/30/2017 Comp Metabolic Xkm025 ALT(SGPT) 13 U/L 12/30/2017 Comp Metabolic Iob162 BILI T 0.7 mg/dL 12/30/2017 Comp Metabolic Uph305 ALBUMIN 4.2 g/dL 12/30/2017 Comp Metabolic Xlc003 TPRO 6.7 g/dL 12/30/2017 Comp Metabolic Ola604 GLOB 2.6 g/dL 12/30/2017 Comp Metabolic Qzq478 A/G Ratio 1.6 Ratio 12/30/2017 Comp Metabolic Zgz794 Osmo 289 mOsmo 12/30/2017 Lipid Ord30 CHOL 167 mg/dL 12/30/2017 Lipid Ord30 HDL 63.0 mg/dl 12/30/2017 Lipid Ord30 TRIG 89 mg/dL 12/30/2017 Lipid Ord30 LDL 86 mg/dL 12/30/2017 Lipid Ord30 C/HDL 2.7 Ratio 12/30/2017 Urine Culture Ucult Preliminary NO Growth Day 1 04/17/2017 Urine Culture Ucult Complete NO Growth Day 2 04/17/2017 Comp Metabolic Mno251 NA 143 mEq/L 04/15/2017 Comp Metabolic Ezf566 K 4.6 mEq/L 04/15/2017 Comp Metabolic Iru183 CL 110 mEq/L 04/15/2017 Comp Metabolic Lza319 CO2 30.0 mEq/L 04/15/2017 Comp Metabolic Mfc416 ANION GAP 8 04/15/2017 Comp Metabolic Vpj973 GLUCOSE 159 mg/dL 04/15/2017 Comp Metabolic Xif216 Creat 1.1 mg/dL 04/15/2017 Comp Metabolic Ugb988 eGFR 54 ml/min/1.73m2 04/15/2017 Comp Metabolic Rxw679 BUN 27 mg/dL 04/15/2017 Comp Metabolic Zwi616 B/C Ratio 25.7 Ratio 04/15/2017 Comp Metabolic Vru446 CALCIUM 9.4 mg/dL 04/15/2017 Comp Metabolic Yfq513 ALK PHOS 93 U/L 04/15/2017 Comp Metabolic Uwt270 AST(SGOT) 19 U/L 04/15/2017 Comp Metabolic Oga447 ALT(SGPT) 18 U/L 04/15/2017 Comp Metabolic Kaz666 BILI T 0.6 mg/dL 04/15/2017 Comp Metabolic Lqn912 ALBUMIN 3.9 g/dL 04/15/2017 Comp Metabolic Ceb527 TPRO 6.5 g/dL 04/15/2017 Comp Metabolic Pmp589 GLOB 2.6 g/dL 04/15/2017 Comp Metabolic Mlx755 A/G Ratio 1.5 Ratio 04/15/2017 Comp Metabolic Niy330 Osmo 293 mOsmo 04/15/2017 Tsh Ord6 hTSH II 2.05 uIU/mL 04/15/2017 %Hba1C Hom236 % HbA1c 43234- 6 6.3 % 04/15/2017 %Hba1C Zoo044 Gluc Ave 134 mg/dL 04/15/2017 Cbc With [...] 29.0 pg 04/15/2017 Cbc With Differential Ord2 [place]% 6.9 % 04/15/2017 Cbc With Differential Ord2 [...] 1.58 K/ul 04/15/2017 Cbc With Differential Ord2 [place] ABS# 0.5 K/ul 04/15/2017 Cbc With Differential [...] Ord28 U-Com Culture to follow 04/15/2017 %Hba1C Lvw759 % HbA1c 42821- 6 5.8 % 01/07/2017 %Hba1C Byo198 Gluc Ave 120 mg/dL 01/07/2017 Urine Culture Ucult Preliminary NO Growth Day 1 09/21/2016 Urine Culture Ucult Complete NO Growth Day 2 09/21/2016 %Hba1C Llv111 % HbA1c 59610- 6 6.0 % 09/17/2016 %Hba1C Vui537 Gluc Ave 126 mg/dL 09/17/2016 Comp Metabolic Jxk552 NA 140 mEq/L 09/17/2016 Comp Metabolic Iqy943 K 4.1 mEq/L 09/17/2016 Comp Metabolic Xel026 CL 105 mEq/L 09/17/2016 Comp Metabolic Qtj093 CO2 29.0 mEq/L 09/17/2016 Comp Metabolic Mfb707 ANION GAP 10 09/17/2016 Comp Metabolic Eda675 GLUCOSE 89 mg/dL 09/17/2016 Comp Metabolic Dlc172 Creat 0.9 mg/dL 09/17/2016 Comp Metabolic Mzt815 eGFR 65 ml/min/1.73m2 09/17/2016 Comp Metabolic Qdp878 BUN 20 mg/dL 09/17/2016 Comp Metabolic Xtg407 B/C Ratio 22.2 Ratio 09/17/2016 Comp Metabolic Ytf784 CALCIUM 9.3 mg/dL 09/17/2016 Comp Metabolic Jwz824 ALK PHOS 107 U/L 09/17/2016 Comp Metabolic Nqs157 AST(SGOT) 22 U/L 09/17/2016 Comp Metabolic Vfe760 ALT(SGPT) 15 U/L 09/17/2016 Comp Metabolic Iab412 BILI T 0.7 mg/dL 09/17/2016 Comp Metabolic Cmp183 ALBUMIN 4.0 g/dL 09/17/2016 Comp Metabolic Lsm841 TPRO 6.8 g/dL 09/17/2016 Comp Metabolic Kki736 GLOB 2.8 g/dL 09/17/2016 Comp Metabolic Dym436 A/G Ratio 1.4 Ratio 09/17/2016 Comp Metabolic Ggg369 Osmo 281 mOsmo 09/17/2016 Microalbumin Hfg952 MicroAlb 44.3 mg/dL 09/17/2016 Tsh Ord6 hTSH [...] 29.0 pg 09/17/2016 Cbc With Differential Ord2 [place]uba% 8.1 % 09/17/2016 Cbc With Differential Ord2 [...] 1.78 K/ul 09/17/2016 Cbc With Differential Ord2 [place] ABS# 0.6 K/ul 09/17/2016 Cbc With Differential Ord2 Eos ABS# 0.2 K/ul 09/17/2016 Cbc With Differential Ord2 Baso ABS# 0.0 K/ul 09/17/2016 Lipid Ord30 CHOL 136 mg/dL 09/17/2016 Lipid Ord30 HDL 50.0 mg/dl 09/17/2016 Lipid Ord30 TRIG 70 mg/dL 09/17/2016 Lipid Ord30 LDL 72 mg/dL 09/17/2016 Lipid Ord30 C/HDL 2.7 Ratio 09/17/2016 Review of Systems System Result Effective Dates Constitutional No recent illness 02/14/2019 Constitutional No [...] dentition 09/06/2018 None Full Exam - General 1994 Ears/Nose/Throat oral cavity/pharynx/larynx Overall: oral mucosa clear 09/06/2018 None Full Exam - General 1994 Ears/Nose/Throat oral cavity/pharynx/larynx Overall: oropharyngeal mucosa clear 09/06/2018 None Full Exam - General 1994 Ears/Nose/Throat oral cavity/pharynx/larynx Overall: hypopharynx benign 09/06/2018 None Full Exam - General 1994 Ears/Nose/Throat oral cavity/pharynx/larynx Overall: no masses 09/06/2018 [...] Procedure Codes Date THER/PROPH/DIAG INJ SC/IM CPT-4: 42273 01/02/2019 TRIAMCINOLONE ACET INJ NOS CPT-4: J3301 01/02/2019 TRIAMCINOLONE ACET INJ NOS CPT-4: J3301 10/12/2018 THER/PROPH/DIAG INJ SC/IM CPT-4: 35870 10/12/2018 PPPS, SUBSEQ VISIT CPT- 4: G0439 09/06/2018 URINALYSIS NONAUTO W/O SCOPE CPT-4: 59497 12/29/2017 PPPS, SUBSEQ VISIT CPT- 4: G0439 03/30/2017 THER/PROPH/DIAG INJ SC/IM CPT-4: 46572 03/16/2017 TRIAMCINOLONE ACET INJ NOS CPT-4: J3301 03/16/2017 THER/PROPH/DIAG INJ SC/IM CPT-4: 06450 03/12/2017 TRIAMCINOLONE ACET INJ NOS CPT-4: J3301 03/12/2017 THER/PROPH/DIAG INJ SC/IM CPT-4: 38280 11/05/2016 TRIAMCINOLONE ACET INJ NOS CPT-4: J3301 11/05/2016 URINALYSIS NONAUTO W/O SCOPE CPT-4: 11251 09/18/2016 Vital Signs Date Vital 02/14/2019 Blood Pressure 1: 152/62 Code: 8480-6 BMI: 30.5 Code: 23801-0 Heart Rate 1: 67 bpm Height: 5'7" SpO2: 97% Weight: 195 lbs 01/30/2019 Blood Pressure 1: 160/70 Code: 8480-6 Heart Rate 1: 53 bpm Height: 5'7" SpO2: 96% 01/16/2019 Blood Pressure 1: 156/70 Code: 8480-6 BMI: 30.1 Code: 08203-5 Heart Rate 1: 50 bpm Height: 5'7" SpO2: 98% Weight: 192 lbs 10/12/2018 Blood Pressure 1: 142/76 Code: 8480-6 BMI: 30.1 Code: 82390-1 Heart Rate 1: 83 bpm Height: 5'7" SpO2: 98% Weight: 192 lbs 09/06/2018 Blood Pressure 1: 142/66 Code: 8480-6 BMI: 30.9 Code: 70520-8 Heart Rate 1: 64 bpm Height: 5'7" SpO2: 98% Waist Measure (cm): 99 cm Weight: 197 lbs 08/16/2018 Blood Pressure 1: 140/70 Code: 8480-6 BMI: 34.4 Code: 22425-3 Heart Rate 1: 63 bpm Height: 5'7" SpO2: 95% Weight: 219 lbs 14 oz 04/12/2018 Blood Pressure 1: 160/70 Code: 8480-6 BMI: 33.0 Code: 04576-0 Heart Rate 1: 82 bpm Height: 5'7" SpO2: 95% Weight: 211 lbs 01/20/2018 Blood Pressure 1: 152/66 Code: 8480-6 BMI: 31.8 Code: 51144-9 Heart Rate 1: 52 bpm Height: 5'7" SpO2: 98% Temperature: 36.3 (C) / 97.3 (F) Weight: 203 lbs 12/29/2017 Blood Pressure 1: 168/72 Code: 8480-6 BMI: 32.1 Code: 80365-0 Heart Rate 1: 63 bpm Height: 5'7" SpO2: 98% Weight: 205 lbs 08/24/2017 Blood Pressure 1: 186/70 Code: 8480-6 Blood Pressure 1: 150/70 Code: 8480-6 BMI: 31.8 Code: 07427-7 Heart Rate 1: 53 bpm Height: 5'7" SpO2: 98% Weight: 203 lbs 07/26/2017 Blood Pressure 1: 206/78 Code: 8480-6 Blood Pressure 2: 210/84 Code: 8480-6 BMI: 32.0 Code: 48587-0 Heart Rate 1: 49 bpm Height: 5'7" SpO2: 97% Weight: 204 lbs 07/20/2017 Blood Pressure 1: 148/82 Code: 8480-6 Heart Rate 1: 90 bpm SpO2: 98% 05/27/2017 Blood Pressure 1: 142/72 Code: 8480-6 BMI: 30.5 Code: 77054-2 Heart Rate 1: 97 bpm Height: 5'7" [...] 1: 148/70 Code: 8480-6 BMI: 30.4 Code: 25158-0 Heart Rate 1: 54 bpm Height: 5'7" SpO2: 97% Weight: 194 lbs 03/30/2017 BMI: 33.2 Code: 03240-6 Height: 5'7" Weight: 212 lbs 03/16/2017 Blood Pressure 1: 140/80 Code: 8480-6 BMI: 34.0 Code: 71864-8 Heart Rate 1: 70 bpm Height: 5'7" SpO2: 95% Weight: 217 lbs 03/12/2017 Blood Pressure 1: 142/80 Code: 8480-6 BMI: 34.0 Code: 83493-0 Heart Rate 1: 76 bpm Height: 5'7" SpO2: 92% Weight: 217 lbs 02/17/2017 Blood Pressure 1: 162/64 Code: 8480-6 BMI: 32.9 Code: 89696-7 Heart Rate 1: 59 bpm Height: 5'7" SpO2: 97% Weight: 210 lbs 01/20/2017 Blood Pressure 1: 162/74 Code: 8480-6 BMI: 32.9 Code: 28589-2 Heart Rate 1: 56 bpm Height: 5'7" SpO2: 98% Weight: 210 lbs 11/17/2016 Blood Pressure 1: 156/60 Code: 8480-6 BMI: 34.8 Code: 76488-4 Heart Rate 1: 63 bpm Height: 5'7" SpO2: 96% Weight: 222 lbs 11/05/2016 Blood Pressure 1: 160/68 Code: 8480-6 BMI: 34.5 Code: 38832-1 Heart Rate 1: 66 bpm Height: 5'7" SpO2: 97% Temperature: 36.9 (C) / 98.5 (F) Weight: 220 lbs 09/21/2016 Blood Pressure 1: 180/72 Code: 8480-6 Blood Pressure 1: 166/72 Code: 8480-6 BMI: 32.1 Code: 03899-5 Heart Rate 1: 57 bpm Height: 5'7" SpO2: 98% Weight: 205 lbs 09/16/2016 Blood Pressure 1: 168/70 Code: 8480-6 Heart Rate 1: 49 bpm SpO2: 95% 08/03/2016 Blood Pressure 1: 162/70 Code: 8480-6 BMI: 32.0 Code: 23206-2 Heart Rate 1: 43 bpm Height: 5'7" SpO2: 98% Weight: 204 lbs 07/06/2016 Blood Pressure 1: 170/86 Code: 8480-6 BMI: 32.0 Code: 14236-6 Heart Rate 1: 48 bpm Height: 5'7" SpO2: 97% Weight: 204 lbs Functional Status No Functional Status data History of Present Illness Symptom Name Status Result Effective Date Notes Location on the right 02/14/2019 None Onset [...] data Encounters Encounter Performer Location Codes Date (213 EST. PATIENT, LEVEL III Diagnosis: Lumbago with sciatica, right side[ICD10: M54.41] Diagnosis: Muscle spasm of back[ICD10: M62.830] Yuridia Camejo MD, [facility] CPT-4: 58949 02/14/2019 ([id number]) 69682 EST. PATIENT, LEVEL III Diagnosis: Essential (primary) hypertension[ICD10: I10] Diagnosis: Lumbago with sciatica, right side[ICD10: M54.41] Yuridia Camejo MD, [facility] CPT-4: 69249 01/30/2019 ([id number]) 53074 EST. PATIENT, LEVEL III Diagnosis: Essential (primary) hypertension[ICD10: I10] Diagnosis: Other allergic rhinitis[ICD10: J30.89] Yuridia Camejo MD, [facility] CPT-4: 95877 01/16/2019 63969 EST. PATIENT, LEVEL IV Diagnosis: Other acute sinusitis[ICD10: J01.80] Diagnosis: Other allergic rhinitis[ICD10: J30.89] Krysta Camejo MD, [facility] CPT- 4: 16316 10/12/2018 ([id number]) 36906 EST. PATIENT, LEVEL IV Diagnosis: Essential (primary) hypertension[ICD10: I10] Diagnosis: Type 2 diabetes mellitus without complications[ICD10: E11.9] Diagnosis: Mixed hyperlipidemia[ICD10: E78.2] Fifi Camejo MD, [facility] CPT- 4: 40328 08/16/2018 ([id number]) 98145 EST. PATIENT, LEVEL IV Diagnosis: Type 2 diabetes mellitus without complications[ICD10: E11.9] Diagnosis: Mixed hyperlipidemia[ICD10: E78.2] Diagnosis: Essential (primary) hypertension[ICD10: I10] Diagnosis: Dysuria[ICD10: R30.0] Diagnosis: Pain in left foot[ICD10: M79.672] Fifi Camejo MD, [facility] CPT- 4: 94861 04/12/2018 ([id number]) 68534 EST. PATIENT, LEVEL III Diagnosis: Otalgia, bilateral[ICD10: H92.03] Diagnosis: Other allergic rhinitis[ICD10: J30.89] Yuridia Camejo MD, [facility] CPT-4: 80494 01/20/2018 ([id number]) 50304 EST. PATIENT, LEVEL IV Diagnosis: Type 2 diabetes mellitus without complications[ICD10: E11.9] Diagnosis: Mixed hyperlipidemia[ICD10: E78.2] Diagnosis: Essential (primary) hypertension[ICD10: I10] Diagnosis: Dysuria[ICD10: R30.0] Fifi Camejo MD, [facility] CPT-4: 47204 12/29/2017 ([id number]) 60753 EST. PATIENT, LEVEL IV Diagnosis: Essential (primary) hypertension[ICD10: I10] Diagnosis: Cysts of left upper eyelid[ICD10: H02.824] Diagnosis: Pain in left foot[ICD10: M79.672] Fifi Camejo MD, [facility] CPT- 4: 07973 08/24/2017 ([id number]) 89870 EST. PATIENT, LEVEL III Diagnosis: Essential (primary) hypertension[ICD10: I10] Fifi Camejo MD, [facility] CPT-4: 87128 07/26/2017 ([id number]) Miscellaneous no charge Diagnosis: Essential (primary) hypertension[ICD10: I10] Fifi Camejo MD, [facility] CPT-4: 58067 07/20/2017 47309 EST. PATIENT, LEVEL III Diagnosis: Otalgia, bilateral[ICD10: H92.03] Diagnosis: Dizziness and giddiness[ICD10: R42] Diagnosis: Mixed hyperlipidemia[ICD10: E78.2] Krysta Camejo MD, [facility] CPT-4: 74429 05/27/2017 ([id number]) Miscellaneous no charge Diagnosis: Essential (primary) hypertension[ICD10: I10] Krysta Camejo MD, [facility] CPT-4: 92450 05/07/2017 ([id number]) 17537 EST. PATIENT, LEVEL IV Diagnosis: Otalgia, bilateral[ICD10: H92.03] Diagnosis: Dizziness and giddiness[ICD10: R42] Diagnosis: Orthostatic hypotension[ICD10: I95.1] Fifi Camejo MD, [facility] CPT-4: 90913 05/03/2017 [id number] EST. PATIENT, LEVEL IV Diagnosis: Essential (primary) hypertension[ICD10: I10] Diagnosis: Type 2 diabetes mellitus without complications[ICD10: E11.9] Diagnosis: Gastro-esophageal reflux disease without esophagitis[ICD10: K21.9] Diagnosis: Dizziness and giddiness[ICD10: R42] Diagnosis: Dysuria[ICD10: R30.0] Diagnosis: Other malaise[ICD10: R53.81] Krysta Camejo MD, [facility] CPT-4: 79986 04/15/2017 ([id number]) 58702 EST. PATIENT, LEVEL IV Diagnosis: Type 2 diabetes mellitus without complications[ICD10: E11.9] Diagnosis: Otalgia, bilateral[ICD10: H92.03] Diagnosis: Essential (primary) hypertension[ICD10: I10] Diagnosis: Other allergic rhinitis[ICD10: J30.89] Fifi Camejo MD, [facility] CPT-4: 56851 03/16/2017 12659 EST. PATIENT, LEVEL IV Diagnosis: Other acute sinusitis[ICD10: J01.80] Diagnosis: Acute suppurative otitis media without spontaneous rupture of ear drum, bilateral[ICD10: H66.003] Diagnosis: Other allergic rhinitis[ICD10: J30.89] Krysta Camejo MD, [facility] CPT- 4: 83058 03/12/2017 ([id number]) 12733 EST. PATIENT, LEVEL IV Diagnosis: Essential (primary) hypertension[ICD10: I10] Diagnosis: Type 2 diabetes mellitus without complications[ICD10: E11.9] Fifi Camejo MD, [facility] CPT-4: 05292 02/17/2017 ([id number]) 12401 EST. PATIENT, LEVEL IV Diagnosis: Essential (primary) hypertension[ICD10: I10] Diagnosis: Type 2 diabetes mellitus without complications[ICD10: E11.9] Fifi Camejo MD, [facility] CPT-4: 79244 01/20/2017 ([id number]) 72584 EST. PATIENT, LEVEL IV Diagnosis: Essential (primary) hypertension[ICD10: I10] Diagnosis: Type 2 diabetes mellitus without complications[ICD10: E11.9] Diagnosis: Gastro-esophageal reflux disease without esophagitis[ICD10: K21.9] RANDALL Redmond MD CPT-4: 73517 11/17/2016 ([id number]) 00627 EST. PATIENT, LEVEL III Diagnosis: Acute bronchitis due to other specified organisms[ICD10: J20.8] Diagnosis: Cough[ICD10: R05] [facility] CPT-4: 85326 11/05/2016 ([id number]) 02451 EST. PATIENT, LEVEL IV Diagnosis: Essential (primary) hypertension[ICD10: I10] Diagnosis: Type 2 diabetes mellitus without complications[ICD10: E11.9] RANDALL Redmond MD CPT-4: 31425 09/21/2016 ([id number]) Miscellaneous no charge Diagnosis: Essential (primary) hypertension[ICD10: I10] RANDALL Redmond MD CPT-4: 97129 09/16/2016 ([id number]) 63268 EST. PATIENT, LEVEL III Diagnosis: Type 2 diabetes mellitus without complications[ICD10: E11.9] Diagnosis: Essential (primary) hypertension[ICD10: I10] [facility] CPT-4: 08449 08/03/2016 ([id number]) OFFICE VISIT, NEW - LEVEL 4 Diagnosis: Essential (primary) hypertension[ICD10: I10] Diagnosis: Type 2 diabetes mellitus without complications[ICD10: E11.9] Diagnosis: Carpal tunnel syndrome, left upper limb[ICD10: G56.02] Diagnosis: Right upper quadrant pain[ICD10: R10.11] Diagnosis: Mixed hyperlipidemia[ICD10: E78.2] [facility] CPT- 4: 26631 07/06/2016 Plan of Care Planned Activity Notes Codes Status Date Visit Plan: Chronic Back pain - the [...] DR CAMEJO AT HER NEXT APPOINTMENT 02/14/2019 Patient Education: Patient Medication Summary Completed 02/14/2019 [phone] ([facility] min) Moderate 02/06/2019 Visit Plan: Hypertension [...] they worsen. 01/30/2019 App[facility]ment[phone] [phone] (30 min) Complex 01/30/2019 Patient Education: Patient [...] allergy spray. 10/12/2018 Appointment: Krysta Dale WPtel: [phone] [facility] (30 min) Complex 10/12/2018 Patient Education: [...] care surrogate. 09/06/2018 Appointment: Yuridia Walsh WPtel: [phone] [facility] - Annual Wellness Visit 09/06/2018 Patient Education: Patient Medication Summary Completed 09/06/2018 Appointment: Yuridia Walsh WPtel: [facility]5 [phone] [place] [address] - Annual Wellness Visit 08/29/2018 Visit Plan: [...] me dications. 08/16/2018 Appointment: Fifi Camejo WPtel: [facility] (15 min) Moderate 08/16/2018 Patient Education: Patient [...] the foot. 04/12/2018 Appointment: [phone] (15 min) Moderate 04/12/2018 Patient Education: Patient Medication Summary Completed 04/12/2018 Care Plan: Referral Order SNOMED-CT : [id number] Pending 04/12/2018 Patient Education: Patient Medication Summary [...] allergy spray. 01/20/2018 Appointment: [phone] [phone] (15 min) Moderate 01/20/2018 Patient Education: [...] controlled. 12/29/2017 Appointment: [phone] [facility] (15 min) Moderate 12/29/2017 Patient Education: Patient [...] - recommended referral to Dr. Anders in [place] 08/24/2017 Appointment: [phone] (15 min) Moderate 08/24/2017 Patient Education: Patient Medication Summary Completed 08/24/2017 Care Plan: Referral Order SNOMED-CT : [id number] Pending 08/24/2017 Visit Plan: Hypertension - uncontrolled [...] above. 07/26/2017 Appointment: [phone] [facility] (15 min) Moderate 07/26/2017 Patient Education: Patient [...] to medications. 05/27/2017 Appointment: Krysta Dale WPtel: [phone] [facility] (15 min) Moderate 05/27/2017 Patient Education: Patient Medication Summary Completed 05/27/2017 Appointment: Nurse Visit 05/07/2017 Patient Education: Patient Medication Summary Completed 05/07/2017 Visit Plan: Persistent vergito with bilateral air-fluid levels and ear pain. Pt was seen by Dr. Calvo- she did not like his response to her complaints. I have recommended a referral to ENT in [place] or [place]. I suspect she may need myringotomy tubes. Pt to continue with flonase. Orthostatic hypotension - dc doxazosin. Monitor blood pressures at home. stop the doxazosin meclizine change to 1/2 pill three times a day come back on Wednesday for blood pressure check 05/03/2017 Appointment: [facility]amejo [facility]el[facility] [phone] [facility] [place] (15 min) Moderate 05/03/2017 Patient Education: Patient Medication Summary Completed 05/03/2017 Appointment: [facility]jo [facility] [phone] [facility] [place] (15 min) Moderate 04/21/2017 Visit Plan: Hypertension, [...] control. 04/15/2017 Appointment: [facility]el[facility] [phone] [facility] (30 min) Complex 04/15/2017 Patient Education: [...] care surrogate. 03/30/2017 Appointment: [facility] Dale [facility]el[facility] [phone] [facility] [facility] - Annual Wellness Visit 03/30/2017 Patient Education: [...] home. 03/16/2017 Appointment: [phone] [facility] (30 min) Complex 03/16/2017 Patient Education: Patient Medication Summary Completed 03/16/2017 Patient Education: Obesity Completed 03/16/2017 Care Plan: Referral Order SNOMED-CT : [id number] Pending 03/16/2017 Visit Plan: Allergies - chronic [...] worsen. 03/12/2017 Appointment: Kryst[facility] Dale [facility]el[facility] [phone] [facility] (15 min) Moderate 03/12/2017 Patient Education: [...] controlled. 02/17/2017 Appointment: [facility]amejo [facility]: [phone] [facility] (30 min) Complex 02/17/2017 Patient Education: Patient [...] controlled. 01/20/2017 Appointment: [facility]jo [facility]el[facility] [phone] [facility] (30 min) Complex 01/20/2017 Patient Education: Patient [...] dexilant 11/17/2016 Appointment: [phone] [facility] (30 min) Complex 11/17/2016 Patient Education: Patient [...] averaging in the 90-110 range. 09/21/2016 Appointment: Nell [facility]i [phone] (15 min) Moderate 09/21/2016 Patient Education: Patient [...] this time. 08/03/2016 Appointment: Fifi Camejo WPtel: [phone] [facility] (15 min) Moderate 08/03/2016 Patient Education: Patient [...] not improving. 07/06/2016 Appointment: Fifi Camejo WPtel: [phone] [facility] New Patient 07/06/2016 Patient Education: Patient Medication [...] [facility] Hypertension - [...] monitor your heart rate Consider referral for tempering kiln tender for possible stress test if needed. Call [...] monitor your heart rate Consider referral for tempering kiln tender for possible stress test if needed. Call [...] have recommended a referral to ENT in [facility]. I suspect she may need myringotomy tubes. [...] - recommended referral to Dr. Anders in [place]
[2019-03-08] MEDS ORDERED: PROMETHAZINE INJ 25 MG/ML (PHENERGAN) AMP ONE (15:30)
--- OUTSIDE RECORDS SUMMARY | 2019-03-08 15:32 | XMS REPORT | CCD ---
Author Author Fifi Camejo Organization Fifi Camejo MD, [facility] Address [address] [place] [address] Phone Care Team Providers Care Tree Farmer Name Role Phone PP Unavailable CCM Unavailable Summary Purpose Interface Exchange Insurance Providers Payer name Policy type / Coverage type Covered green party ID Effective Begin Date Effective End Date WPS Medicare Part B Medicare Part B [id number] 2018 Unknown FOR LIFE WPS Medicare Part B [id number] Unknown Family history Father Diagnosis Age At Onset Cancer Unknown Brother Diagnosis Age At Onset Diabetes mellitus Type 2 Unknown Heart Attack Unknown Social History Social History Element Codes Description Effective Dates Marital status Unknown Wu 11/05/2016 Number of children Unknown 1 07/06/2016 Employment Unknown Retired 07/06/[address]: 865179040 Never smoker 07/06/[address]: 839128117 Never drinks alcohol 07/06/2016 Allergies, Adverse Reactions, Alerts Substance Reaction Codes Entered Date Inactivated Date Status Protonix hives RxNorm: 706152 09/06/2018 No Inactive Date Active IV DYE, [...] Parafon Forte DSC 500 mg tablet RxNorm: 049123 1 Tablet(s) PO qid prn 02/15/2019 05/15/2019 Active Parafon Forte DSC 500 mg tablet RxNorm: 718070 1 Tablet(s) PO qid prn 02/14/2019 02/13/2019 Inactive Parafon Forte DSC 500 mg tablet RxNorm: 727150 1 Tablet(s) PO qid prn 02/13/2019 02/13/2019 Inactive diclofenac 1 % topical gel RxNorm: 402984 4 Gram(s) TOP QID 01/31/2019 03/01/2019 Active tramadol 50 mg tablet RxNorm: 175498 1 Tablet(s) PO qid prn 01/30/2019 No Stop Date Active Voltaren 1 % topical gel RxNorm: 931699 4 Gram(s) TOP QID 01/30/2019 01/30/2019 Inactive Parafon Forte DSC 500 mg tablet RxNorm: 314239 1 Tablet(s) PO qid prn 01/30/2019 02/12/2019 Inactive diclofenac 1 % topical gel RxNorm: 811936 4 Gram(s) TOP QID 01/30/2019 01/29/2019 Inactive diclofenac 1 % topical gel RxNorm: 218830 4 Gram(s) TOP QID 01/30/2019 01/30/2019 Inactive atorvastatin 10 mg tablet RxNorm: 887533 1 Tablet(s) PO QPM 01/16/2019 01/10/2020 Active hydralazine 10 mg tablet RxNorm: 124690 1 Tablet(s) PO TID PRN 01/16/2019 07/14/2019 Active prn sbp over 150 alprazolam 0.5 mg tablet RxNorm: 540389 1 Tablet(s) PO TID as needed anxiety 01/16/2019 07/14/2019 Active fluticasone propionate 50 mcg/actuation nasal spray,suspension RxNorm: 3279058 2 [place] daily USE 1 SPRAY NASALLY TWICE A DAY 01/16/2019 01/10/2020 Active hydralazine 10 mg tablet RxNorm: 318866 1 Tablet(s) PO TID PRN 01/16/2019 01/15/2019 Inactive prn sbp over 150 clonidine HCl 0.1 mg tablet RxNorm: 619598 1/2 Tablet(s) PO QHS 01/16/2019 01/16/2019 Inactive cefdinir 300 mg capsule RxNorm: 274629 1 Capsule(s) PO BID 01/09/2019 01/15/2019 Inactive cefdinir 300 mg capsule RxNorm: 406168 1 Capsule(s) PO BID 01/09/2019 01/08/2019 Inactive Zithromax Z-Juan 250 mg tablet RxNorm: 183772 1 Tablet(s) PO UD 01/03/2019 01/07/2019 Inactive zpack as directed Kenalog 40 mg/mL suspension for injection RxNorm: 5822680 Milliliter(s) Inj 01/02/2019 01/02/2019 Inactive Zithromax Z-Juan 250 mg tablet RxNorm: 679549 1 Tablet(s) PO UD 12/30/2018 01/02/2019 Inactive zpack as directed metoprolol tartrate 50 mg tablet RxNorm: 678301 1/2 TABLET(S) PO BID 12/02/2018 No Stop Date Active amlodipine 10 mg tablet RxNorm: 680852 TAKE 1 TABLET DAILY 10/24/2018 No Stop Date Active cefdinir 300 mg capsule RxNorm: 398841 1 Capsule(s) PO BID 10/19/2018 10/22/2018 Inactive Zithromax Z-Juan 250 mg tablet RxNorm: 171406 1 Tablet(s) PO UD 10/19/2018 10/23/2018 Inactive zpack as directed glimepiride 4 mg tablet RxNorm: 767269 Tablet(s) 1 TABLET(S) PO DAILY 10/12/2018 No Stop Date Active cefdinir 300 mg capsule RxNorm: 060598 1 Capsule(s) PO BID 10/12/2018 10/18/2018 Inactive Zithromax Z-Juan 250 mg tablet RxNorm: 362254 1 Tablet(s) PO UD 10/12/2018 10/16/2018 Inactive zpack as directed Tessalon Perles 100 mg capsule RxNorm: 891049 2 Capsule(s) PO TID as needed cough 10/12/2018 10/16/2018 Inactive Kenalog 40 mg/mL suspension for injection RxNorm: 0706541 1 Milliliter(s) Inj 10/12/2018 10/12/2018 Inactive Zithromax Z-Juan 250 mg tablet RxNorm: 687501 1 Tablet(s) PO UD 08/22/2018 08/26/2018 Inactive zpack as directed clonidine HCl 0.1 mg tablet RxNorm: 643057 1 Tablet(s) PO QAM 08/16/2018 01/15/2019 Inactive losartan 100 mg tablet RxNorm: 964202 1 TABLET(S) PO DAILY FOR HIGH BLOOD PRESSURE 08/12/2018 No Stop Date Active alprazolam 0.5 mg tablet RxNorm: 509699 1 Tablet(s) PO TID as needed anxiety 06/30/2018 12/26/2018 Inactive fluticasone 50 mcg/actuation nasal spray,suspension RxNorm: 0329343 USE 1 SPRAY NASALLY TWICE A DAY 05/06/2018 01/15/2019 Inactive clonidine HCl 0.1 mg tablet RxNorm: 570946 1 Tablet(s) PO BID 04/14/2018 08/15/2018 Inactive clonidine HCl 0.1 mg tablet RxNorm: 181744 1 Tablet(s) PO TID 04/12/2018 04/13/2018 Inactive Zithromax Z-Juan 250 mg tablet RxNorm: 212135 1 Tablet(s) PO UD 01/20/2018 08/21/2018 Inactive disregard first rx for 1 - patient needs 3 packs-please dispense generic azithromycin Zithromax Z-Juan 250 mg tablet RxNorm: 946894 1 Tablet(s) PO UD 01/20/2018 01/19/2018 Inactive Zithromax Z-Juan 250 mg tablet RxNorm: 605467 1 Tablet(s) PO UD 01/20/2018 01/19/2018 Inactive disregard first rx for 1 - patient needs 3 packs Zithromax Z-Juan 250 mg tablet RxNorm: 009341 1 Tablet(s) PO UD 01/20/2018 01/19/2018 Inactive atorvastatin 10 mg tablet RxNorm: 983862 1 Tablet(s) PO QPM 12/30/2017 12/24/2018 Inactive atorvastatin 10 mg tablet RxNorm: 218205 1 Tablet(s) PO QPM 12/30/2017 12/29/2017 Inactive clonidine HCl 0.1 mg tablet RxNorm: 248366 1 Tablet(s) PO BID 12/29/2017 04/11/2018 Inactive Lipitor 10 mg tablet RxNorm: 073805 1 Tablet(s) PO QPM 12/29/2017 12/29/2017 Inactive OKAY TO DISPENSE GENERIC metoprolol tartrate 50 mg tablet RxNorm: 490555 1/2 Tablet(s) PO BID 12/29/2017 12/01/2018 Inactive alprazolam 0.5 mg tablet RxNorm: 528873 1 Tablet(s) PO TID as needed anxiety 11/18/2017 05/16/2018 Inactive glimepiride 4 mg tablet RxNorm: 049557 1 TABLET(S) PO DAILY 11/15/2017 10/11/2018 Inactive alprazolam 0.5 mg tablet RxNorm: 775844 1 Tablet(s) PO TID as needed anxiety 09/20/2017 11/17/2017 Inactive Zithromax Z-Juan 250 mg tablet RxNorm: 997969 1 Tablet(s) PO UD 09/20/2017 12/28/2017 Inactive Zithromax Z-Juan 250 mg tablet RxNorm: 323462 1 Tablet(s) PO UD 09/14/2017 09/19/2017 Inactive clonidine HCl 0.1 mg tablet RxNorm: 066116 1/2 Tablet(s) PO BID 08/24/2017 12/28/2017 Inactive amlodipine 10 mg tablet RxNorm: 918510 1 Tablet(s) PO daily 08/24/2017 08/18/2018 Inactive erythromycin 5 mg/gram (0.5 %) eye ointment RxNorm: 446503 1 Gram(s) ophthalmic (eye) QID left eye cyst 08/24/2017 09/06/2017 Inactive losartan 100 mg tablet RxNorm: 779750 1 Tablet(s) PO daily for high blood pressure 08/16/2017 08/10/2018 Inactive metoprolol tartrate 50 mg tablet RxNorm: 902559 1/2 Tablet(s) PO BID 07/26/2017 12/28/2017 Inactive clonidine HCl 0.1 mg tablet RxNorm: 948241 1/2 Tablet(s) PO BID 07/26/2017 08/23/2017 Inactive metoprolol tartrate 50 mg tablet RxNorm: 506416 1 Tablet(s) PO BID 07/21/2017 07/25/2017 Inactive amlodipine 10 mg tablet RxNorm: 993195 1 TABLET(S) PO DAILY 06/29/2017 08/23/2017 Inactive Lipitor 10 mg tablet RxNorm: 289137 1 Tablet(s) PO QPM 05/27/2017 12/28/2017 Inactive OKAY TO DISPENSE GENERIC alprazolam 0.5 mg tablet RxNorm: 917919 1 Tablet(s) PO TID as needed anxiety 05/18/2017 08/15/2017 Inactive hydrochlorothiazide 12.5 mg tablet RxNorm: 548585 1 Tablet(s) PO daily 04/22/2017 05/21/2017 Inactive hydrochlorothiazide 12.5 mg tablet RxNorm: 007329 1 Tablet(s) PO daily 04/22/2017 04/21/2017 Inactive Cipro 500 mg tablet RxNorm: 678239 1 Tablet(s) PO BID 04/16/2017 04/22/2017 Inactive Zofran 4 mg tablet RxNorm: 377465 1 Tablet(s) PO BID as needed nausea and vomitting 04/15/2017 04/19/2017 Inactive Lipitor 10 mg tablet RxNorm: 516061 1 Tablet(s) PO QPM 03/30/2017 05/26/2017 Inactive OKAY TO DISPENSE GENERIC Kenalog 40 mg/mL suspension for injection RxNorm: 2762226 1 Milliliter(s) Inj 03/16/2017 03/16/2017 Inactive doxazosin 4 mg tablet RxNorm: 476382 1.5 Tablet(s) PO BID 03/16/2017 05/02/2017 Inactive prednisone 10 mg tablets in a dose pack RxNorm: 186052 Tablet(s) take dose pack as directed PO take with food 03/16/2017 05/23/2017 Inactive Kenalog 40 mg/mL suspension for injection RxNorm: 0145656 Milliliter(s) Inj 03/12/2017 03/12/2017 Inactive Zithromax Z-Juan 250 mg tablet RxNorm: 170592 1 Tablet(s) PO daily 03/11/2017 03/10/2017 Inactive zpack as directed Zithromax Z-Juan 250 mg tablet RxNorm: 342996 1 Tablet(s) PO daily 03/11/2017 03/15/2017 Inactive zpack as directed doxazosin 4 mg tablet RxNorm: 415779 1.5 Tablet(s) PO BID 02/12/2017 03/15/2017 Inactive fluticasone 50 mcg/actuation nasal spray,suspension RxNorm: 3778437 1 SPRAY NASAL BID 02/05/2017 05/05/2018 Inactive metoprolol tartrate 75 mg tablet RxNorm: 9106346 1 Tablet(s) PO BID 01/29/2017 07/19/2017 Inactive metoprolol tartrate 75 mg tablet RxNorm: 1108549 1 Tablet(s) PO BID 01/29/2017 01/28/2017 Inactive doxazosin 4 mg tablet RxNorm: 737255 1 Tablet(s) PO BID 01/20/2017 02/11/2017 Inactive pantoprazole 40 mg tablet,delayed release RxNorm: 726504 1 Tablet(s) PO daily 12/24/2016 01/19/2017 Inactive pantoprazole 40 mg tablet,delayed release RxNorm: 545102 1 Tablet(s) PO daily 12/24/2016 12/23/2016 Inactive alprazolam 0.5 mg tablet RxNorm: 322475 1 Tablet(s) PO TID as needed anxiety 12/03/2016 04/01/2017 Inactive fluticasone 50 mcg/actuation nasal spray,suspension RxNorm: 3099531 1 [place] NASAL BID 11/25/2016 12/24/2016 Inactive Dexilant 60 mg capsule, delayed release RxNorm: 082663 1 Capsule(s) PO daily 11/25/2016 11/24/2016 Inactive fluticasone 50 mcg/actuation nasal spray,suspension RxNorm: 5233538 1 [place] NASAL BID 11/25/2016 11/24/2016 Inactive fluticasone 50 mcg/actuation nasal spray,suspension RxNorm: 7347111 1 [place] NASAL BID 11/25/2016 11/24/2016 Inactive Dexilant 60 mg capsule, delayed release RxNorm: 277168 1 Capsule(s) PO daily 11/25/2016 12/23/2016 Inactive ProAir RespiClick 90 mcg/actuation breath activated RxNorm: 7984616 1 INH bid and QID as needed 11/19/2016 05/17/2017 Inactive Please send STAT Flonase Allergy Relief 50 mcg/actuation nasal spray,suspension RxNorm: 7433869 1 [place] NASAL BID 11/19/2016 11/24/2016 Inactive glimepiride 4 mg tablet RxNorm: 392729 1 Tablet(s) PO daily 11/19/2016 11/13/2017 Inactive metoprolol tartrate 50 mg tablet RxNorm: 547013 1 Tablet(s) PO BID 11/19/2016 01/28/2017 Inactive Flonase Allergy Relief 50 mcg/actuation nasal spray,suspension RxNorm: 2364685 1 [place] NASAL BID 11/17/2016 11/18/2016 Inactive metoprolol tartrate 50 mg tablet RxNorm: 364963 1 Tablet(s) PO BID 11/17/2016 11/18/2016 Inactive ProAir RespiClick 90 mcg/actuation breath activated RxNorm: 9548525 1 INH bid and QID as needed 11/17/2016 11/16/2016 Inactive glimepiride 4 mg tablet RxNorm: 965653 1 Tablet(s) PO daily 11/17/2016 11/18/2016 Inactive ProAir RespiClick 90 mcg/actuation breath activated RxNorm: 7791742 1 INH bid and QID as needed 11/17/2016 11/18/2016 Inactive Please send STAT Kenalog 40 mg/mL suspension for injection RxNorm: 9854624 1 Milliliter(s) Inj 11/05/2016 11/05/2016 Inactive azithromycin 250 mg tablet RxNorm: 332023 Tablet(s) PO 2 tabs on day #1, then daily x 4 days 11/05/2016 12/23/2016 Inactive doxazosin 4 mg tablet RxNorm: 109834 1 Tablet(s) PO QPM 10/02/2016 01/19/2017 Inactive doxazosin 4 mg tablet RxNorm: 732783 1 Tablet(s) PO QPM 09/29/2016 10/01/2016 Inactive doxazosin 4 mg tablet RxNorm: 347482 1 Tablet(s) PO QPM 09/21/2016 09/28/2016 Inactive Cipro 500 mg tablet RxNorm: 697970 1 Tablet(s) PO BID 09/18/2016 09/17/2016 Inactive Cipro 500 mg tablet RxNorm: 320008 1 Tablet(s) PO BID 09/18/2016 09/24/2016 Inactive losartan 100 mg tablet RxNorm: 645123 1 Tablet(s) PO daily for high blood pressure 09/16/2016 09/15/2016 Inactive alprazolam 0.5 mg tablet RxNorm: 853728 1 Tablet(s) PO TID as needed anxiety 09/16/2016 11/14/2016 Inactive losartan 100 mg tablet RxNorm: 129969 1 Tablet(s) PO daily for high blood pressure 09/16/2016 08/15/2017 Inactive amlodipine 10 mg tablet RxNorm: 412747 1 Tablet(s) PO daily 08/03/2016 06/28/2017 Inactive Zyrtec 10 mg tablet RxNorm: 0561299 1 Tablet(s) PO daily 08/03/2016 09/15/2016 Inactive losartan 25 mg tablet RxNorm: 651092 1 Tablet(s) PO daily 07/08/2016 09/15/2016 Inactive Lipitor 10 mg tablet RxNorm: 388670 1 Tablet(s) PO QPM 07/08/2016 07/17/2016 Inactive OKAY TO DISPENSE GENERIC Lipitor 10 mg tablet RxNorm: 100255 1 Tablet(s) PO QPM 07/06/2016 07/07/2016 Inactive OKAY TO DISPENSE GENERIC losartan 25 mg tablet RxNorm: 857302 1 Tablet(s) PO daily 07/06/2016 07/07/2016 Inactive meclizine 25 mg tablet RxNorm: 145040 1 Tablet(s) PO TID as needed No Start Date Active Pazeo 0.7 % eye drops RxNorm: 3368199 Drop(s) ophthalmic (eye) as needed dry eyes No Start Date Active Zithromax Z-Juan 250 mg tablet RxNorm: 443988 1 Tablet(s) PO UD No Start Date 09/13/2017 Inactive glimepiride 4 mg tablet RxNorm: 650196 1 Tablet(s) PO daily No Start Date 11/16/2016 Inactive metoprolol tartrate 100 mg tablet RxNorm: 591725 1 Tablet(s) PO BID No Start Date 07/21/2017 Inactive naproxen 500 mg tablet RxNorm: 878166 1 Tablet(s) PO BID No Start Date 03/23/2017 Inactive amlodipine 5 mg tablet RxNorm: 301750 1 Tablet(s) PO daily No Start Date 08/02/2016 Inactive Parafon Forte DSC 500 mg tablet RxNorm: 049543 1 Tablet(s) PO QID No Start Date 01/29/2019 Inactive metoprolol tartrate 50 mg tablet RxNorm: 797900 1 Tablet(s) PO BID No Start Date 11/16/2016 Inactive Medication Administered Medication Codes Instructions Start Date Status Kenalog 40 mg/mL suspension for injection RxNorm: 1860025 Milliliter 01/02/2019 No longer Active Kenalog 40 mg/mL suspension for injection RxNorm: 0234123 1Milliliter 10/12/2018 No longer Active Kenalog 40 mg/mL suspension for injection RxNorm: 9629382 1Milliliter 03/16/2017 No longer Active Kenalog 40 mg/mL suspension for injection RxNorm: 5720950 Milliliter 03/12/2017 No longer Active Kenalog 40 mg/mL suspension for injection RxNorm: 9881763 1Milliliter 11/05/2016 No longer Active Immunizations Vaccine [...] Lipid Ord30 C/HDL 3.1 Ratio 08/18/2018 Microalbumin Ykw559 MicroAlb 7.5 mg/dL 08/18/2018 Cbc With Differential [...] 29.6 pg 08/18/2018 Cbc With Differential Ord2 [place]% 10.6 % 08/18/2018 Cbc With Differential Ord2 [...] 1.69 K/ul 08/18/2018 Cbc With Differential Ord2 [place] ABS# 0.6 K/ul 08/18/2018 Cbc With Differential Ord2 Eos ABS# 0.3 K/ul 08/18/2018 Cbc With Differential Ord2 Baso ABS# 0.0 K/ul 08/18/2018 Comp Metabolic Ral866 NA 137 mEq/L 08/18/2018 Comp Metabolic Nlk553 K 3.8 mEq/L 08/18/2018 Comp Metabolic Fsh331 CL 103 mEq/L 08/18/2018 Comp Metabolic Ndi266 CO2 26.0 mEq/L 08/18/2018 Comp Metabolic Mhz288 ANION GAP 12 08/18/2018 Comp Metabolic Dza172 GLUCOSE 110 mg/dL 08/18/2018 Comp Metabolic Lvi797 Creat 1.2 mg/dL 08/18/2018 Comp Metabolic Eig398 eGFR 47 ml/min/1.73m2 08/18/2018 Comp Metabolic Nxa397 BUN 25 mg/dL 08/18/2018 Comp Metabolic Mcx823 B/C Ratio 21.0 Ratio 08/18/2018 Comp Metabolic Rbf929 CALCIUM 9.4 mg/dL 08/18/2018 Comp Metabolic Kld803 ALK PHOS 99 U/L 08/18/2018 Comp Metabolic Deh987 AST(SGOT) 31 U/L 08/18/2018 Comp Metabolic Htp431 ALT(SGPT) 27 U/L 08/18/2018 Comp Metabolic Pvw398 BILI T 0.7 mg/dL 08/18/2018 Comp Metabolic Bpw124 ALBUMIN 4.2 g/dL 08/18/2018 Comp Metabolic Cvj294 TPRO 6.7 g/dL 08/18/2018 Comp Metabolic Dxo269 GLOB 2.5 g/dL 08/18/2018 Comp Metabolic Xwz843 A/G Ratio 1.7 Ratio 08/18/2018 Comp Metabolic Efn948 Osmo 279 mOsmo 08/18/2018 %Hba1C Atl881 % HbA1c 39049- 6 6.1 % 08/18/2018 %Hba1C Cmm818 Gluc Ave 128 mg/dL 08/18/2018 Tsh Ord6 TSH (3rd IS) 3.93 uIU/mL 08/18/2018 Lipid Ord30 CHOL 146 mg/dL 04/15/2018 Lipid Ord30 HDL 62.0 mg/dl 04/15/2018 Lipid Ord30 TRIG 88 mg/dL 04/15/2018 Lipid Ord30 LDL 66 mg/dL 04/15/2018 Lipid Ord30 C/HDL 2.4 Ratio 04/15/2018 %Hba1C Ryh982 % HbA1c 93212- 6 6.3 % 04/15/2018 %Hba1C Kzb647 Gluc Ave 134 mg/dL 04/15/2018 Cbc With [...] 30.2 pg 04/15/2018 Cbc With Differential Ord2 [place]% 6.8 % 04/15/2018 Cbc With Differential Ord2 [...] 2.10 K/ul 04/15/2018 Cbc With Differential Ord2 [place] ABS# 0.5 K/ul 04/15/2018 Cbc With Differential Ord2 Eos ABS# 0.2 K/ul 04/15/2018 Cbc With Differential Ord2 Baso ABS# 0.0 K/ul 04/15/2018 Comp Metabolic Mce916 NA 140 mEq/L 04/15/2018 Comp Metabolic Gqn642 K 4.3 mEq/L 04/15/2018 Comp Metabolic Dvy106 CL 106 mEq/L 04/15/2018 Comp Metabolic Bye350 CO2 23.0 mEq/L 04/15/2018 Comp Metabolic Wef784 ANION GAP 15 04/15/2018 Comp Metabolic Een553 GLUCOSE 90 mg/dL 04/15/2018 Comp Metabolic Sfx007 Creat 1.2 mg/dL 04/15/2018 Comp Metabolic Ndh898 eGFR 45 ml/min/1.73m2 04/15/2018 Comp Metabolic Wxo601 BUN 28 mg/dL 04/15/2018 Comp Metabolic Sxw059 B/C Ratio 22.8 Ratio 04/15/2018 Comp Metabolic Itt919 CALCIUM 9.5 mg/dL 04/15/2018 Comp Metabolic Dxz993 ALK PHOS 95 U/L 04/15/2018 Comp Metabolic Xno304 AST(SGOT) 20 U/L 04/15/2018 Comp Metabolic Llx573 ALT(SGPT) 13 U/L 04/15/2018 Comp Metabolic Gac450 BILI T 0.5 mg/dL 04/15/2018 Comp Metabolic Zez825 ALBUMIN 4.1 g/dL 04/15/2018 Comp Metabolic Ybj137 TPRO 6.6 g/dL 04/15/2018 Comp Metabolic Jqg961 GLOB 2.5 g/dL 04/15/2018 Comp Metabolic Mir321 A/G Ratio 1.6 Ratio 04/15/2018 Comp Metabolic Bpu607 Osmo 284 mOsmo 04/15/2018 Comp Metabolic Amp862 NA 137 mEq/L 02/04/2018 Comp Metabolic Ccv840 K 4.0 mEq/L 02/04/2018 Comp Metabolic Bzt907 CL 104 mEq/L 02/04/2018 Comp Metabolic Bni640 CO2 27.0 mEq/L 02/04/2018 Comp Metabolic Dtu676 ANION GAP 10 02/04/2018 Comp Metabolic Son253 GLUCOSE 212 mg/dL 02/04/2018 Comp Metabolic Qlj030 Creat 1.2 mg/dL 02/04/2018 Comp Metabolic Vjm738 eGFR 47 ml/min/1.73m2 02/04/2018 Comp Metabolic Deo108 BUN 20 mg/dL 02/04/2018 Comp Metabolic Stn393 B/C Ratio 16.8 Ratio 02/04/2018 Comp Metabolic Gss712 CALCIUM 8.9 mg/dL 02/04/2018 Comp Metabolic May475 ALK PHOS 107 U/L 02/04/2018 Comp Metabolic Bbw938 AST(SGOT) 17 U/L 02/04/2018 Comp Metabolic Exd137 ALT(SGPT) 11 U/L 02/04/2018 Comp Metabolic Bfk379 BILI T 0.4 mg/dL 02/04/2018 Comp Metabolic Hgy057 ALBUMIN 3.8 g/dL 02/04/2018 Comp Metabolic Ksn835 TPRO 6.2 g/dL 02/04/2018 Comp Metabolic Dbn184 GLOB 2.4 g/dL 02/04/2018 Comp Metabolic Bdi050 A/G Ratio 1.6 Ratio 02/04/2018 Comp Metabolic Shp044 Osmo 283 mOsmo 02/04/2018 %Hba1C Xrl283 % HbA1c 25856- 6 6.3 % 12/30/2017 %Hba1C Lvf066 Gluc Ave 134 mg/dL 12/30/2017 Comp Metabolic Eia696 NA 142 mEq/L 12/30/2017 Comp Metabolic Hkc356 K 4.4 mEq/L 12/30/2017 Comp Metabolic Qpj476 CL 103 mEq/L 12/30/2017 Comp Metabolic Wpr983 CO2 31.0 mEq/L 12/30/2017 Comp Metabolic Csi905 ANION GAP 12 12/30/2017 Comp Metabolic Adn246 GLUCOSE 119 mg/dL 12/30/2017 Comp Metabolic Wfl626 Creat 1.4 mg/dL 12/30/2017 Comp Metabolic Uvg987 eGFR 41 ml/min/1.73m2 12/30/2017 Comp Metabolic Xdy423 BUN 27 mg/dL 12/30/2017 Comp Metabolic Jkz649 B/C Ratio 20.0 Ratio 12/30/2017 Comp Metabolic Umb706 CALCIUM 9.9 mg/dL 12/30/2017 Comp Metabolic Shw982 ALK PHOS 106 U/L 12/30/2017 Comp Metabolic Ssm980 AST(SGOT) 20 U/L 12/30/2017 Comp Metabolic Iqm377 ALT(SGPT) 13 U/L 12/30/2017 Comp Metabolic Wlc845 BILI T 0.7 mg/dL 12/30/2017 Comp Metabolic Htn364 ALBUMIN 4.2 g/dL 12/30/2017 Comp Metabolic Eti809 TPRO 6.7 g/dL 12/30/2017 Comp Metabolic Vqt488 GLOB 2.6 g/dL 12/30/2017 Comp Metabolic Hqr723 A/G Ratio 1.6 Ratio 12/30/2017 Comp Metabolic Cxx917 Osmo 289 mOsmo 12/30/2017 Lipid Ord30 CHOL 167 mg/dL 12/30/2017 Lipid Ord30 HDL 63.0 mg/dl 12/30/2017 Lipid Ord30 TRIG 89 mg/dL 12/30/2017 Lipid Ord30 LDL 86 mg/dL 12/30/2017 Lipid Ord30 C/HDL 2.7 Ratio 12/30/2017 Urine Culture Ucult Preliminary NO Growth Day 1 04/17/2017 Urine Culture Ucult Complete NO Growth Day 2 04/17/2017 Comp Metabolic Iar484 NA 143 mEq/L 04/15/2017 Comp Metabolic Hfv988 K 4.6 mEq/L 04/15/2017 Comp Metabolic Vbc089 CL 110 mEq/L 04/15/2017 Comp Metabolic Ftd654 CO2 30.0 mEq/L 04/15/2017 Comp Metabolic Sam461 ANION GAP 8 04/15/2017 Comp Metabolic Mnn572 GLUCOSE 159 mg/dL 04/15/2017 Comp Metabolic Uft674 Creat 1.1 mg/dL 04/15/2017 Comp Metabolic Tcs439 eGFR 54 ml/min/1.73m2 04/15/2017 Comp Metabolic Nbx275 BUN 27 mg/dL 04/15/2017 Comp Metabolic Obb927 B/C Ratio 25.7 Ratio 04/15/2017 Comp Metabolic Scw459 CALCIUM 9.4 mg/dL 04/15/2017 Comp Metabolic Xrn061 ALK PHOS 93 U/L 04/15/2017 Comp Metabolic Uxf090 AST(SGOT) 19 U/L 04/15/2017 Comp Metabolic Toc622 ALT(SGPT) 18 U/L 04/15/2017 Comp Metabolic Abv140 BILI T 0.6 mg/dL 04/15/2017 Comp Metabolic Eqf829 ALBUMIN 3.9 g/dL 04/15/2017 Comp Metabolic Xne573 TPRO 6.5 g/dL 04/15/2017 Comp Metabolic Mxl822 GLOB 2.6 g/dL 04/15/2017 Comp Metabolic Apf988 A/G Ratio 1.5 Ratio 04/15/2017 Comp Metabolic Hvu056 Osmo 293 mOsmo 04/15/2017 Tsh Ord6 hTSH II 2.05 uIU/mL 04/15/2017 %Hba1C Tbm720 % HbA1c 98531- 6 6.3 % 04/15/2017 %Hba1C Bnj549 Gluc Ave 134 mg/dL 04/15/2017 Cbc With [...] 29.0 pg 04/15/2017 Cbc With Differential Ord2 [place]% 6.9 % 04/15/2017 Cbc With Differential Ord2 [...] 1.58 K/ul 04/15/2017 Cbc With Differential Ord2 [place] ABS# 0.5 K/ul 04/15/2017 Cbc With Differential [...] Ord28 U-Com Culture to follow 04/15/2017 %Hba1C Rmn478 % HbA1c 85511- 6 5.8 % 01/07/2017 %Hba1C Ykj490 Gluc Ave 120 mg/dL 01/07/2017 Urine Culture Ucult Preliminary NO Growth Day 1 09/21/2016 Urine Culture Ucult Complete NO Growth Day 2 09/21/2016 %Hba1C Sgp585 % HbA1c 18572- 6 6.0 % 09/17/2016 %Hba1C Qch585 Gluc Ave 126 mg/dL 09/17/2016 Comp Metabolic Cbs628 NA 140 mEq/L 09/17/2016 Comp Metabolic Sdk612 K 4.1 mEq/L 09/17/2016 Comp Metabolic Tep831 CL 105 mEq/L 09/17/2016 Comp Metabolic Gnq908 CO2 29.0 mEq/L 09/17/2016 Comp Metabolic Uuz950 ANION GAP 10 09/17/2016 Comp Metabolic Lyg408 GLUCOSE 89 mg/dL 09/17/2016 Comp Metabolic Ydy634 Creat 0.9 mg/dL 09/17/2016 Comp Metabolic Hhg864 eGFR 65 ml/min/1.73m2 09/17/2016 Comp Metabolic Ifk132 BUN 20 mg/dL 09/17/2016 Comp Metabolic Yhu817 B/C Ratio 22.2 Ratio 09/17/2016 Comp Metabolic Mcd615 CALCIUM 9.3 mg/dL 09/17/2016 Comp Metabolic Uym608 ALK PHOS 107 U/L 09/17/2016 Comp Metabolic Rpu174 AST(SGOT) 22 U/L 09/17/2016 Comp Metabolic Ynz961 ALT(SGPT) 15 U/L 09/17/2016 Comp Metabolic Efl162 BILI T 0.7 mg/dL 09/17/2016 Comp Metabolic Hcd211 ALBUMIN 4.0 g/dL 09/17/2016 Comp Metabolic Iti212 TPRO 6.8 g/dL 09/17/2016 Comp Metabolic Hok859 GLOB 2.8 g/dL 09/17/2016 Comp Metabolic Urt730 A/G Ratio 1.4 Ratio 09/17/2016 Comp Metabolic Ehg637 Osmo 281 mOsmo 09/17/2016 Microalbumin Avr222 MicroAlb 44.3 mg/dL 09/17/2016 Tsh Ord6 hTSH [...] 29.0 pg 09/17/2016 Cbc With Differential Ord2 [place]% 8.1 % 09/17/2016 Cbc With Differential Ord2 [...] 1.78 K/ul 09/17/2016 Cbc With Differential Ord2 [place] ABS# 0.6 K/ul 09/17/2016 Cbc With Differential [...] Procedure Codes Date THER/PROPH/DIAG INJ SC/IM CPT-4: 89506 01/02/2019 TRIAMCINOLONE ACET INJ NOS CPT-4: J3301 01/02/2019 TRIAMCINOLONE ACET INJ NOS CPT-4: J3301 10/12/2018 THER/PROPH/DIAG INJ SC/IM CPT-4: 06024 10/12/2018 PPPS, SUBSEQ VISIT CPT- 4: G0439 09/06/2018 URINALYSIS NONAUTO W/O SCOPE CPT-4: 55253 12/29/2017 PPPS, SUBSEQ VISIT CPT- 4: G0439 03/30/2017 THER/PROPH/DIAG INJ SC/IM CPT-4: 18484 03/16/2017 TRIAMCINOLONE ACET INJ NOS CPT-4: J3301 03/16/2017 THER/PROPH/DIAG INJ SC/IM CPT-4: 05335 03/12/2017 TRIAMCINOLONE ACET INJ NOS CPT-4: J3301 03/12/2017 THER/PROPH/DIAG INJ SC/IM CPT-4: 67559 11/05/2016 TRIAMCINOLONE ACET INJ NOS CPT-4: J3301 11/05/2016 URINALYSIS NONAUTO W/O SCOPE CPT-4: 09905 09/18/2016 Vital Signs Date Vital 02/14/2019 Blood Pressure 1: 152/62 Code: 8480-6 BMI: 30.5 Code: 50806-8 Heart Rate 1: 67 bpm Height: 5'7" SpO2: 97% Weight: 195 lbs 01/30/2019 Blood Pressure 1: 160/70 Code: 8480-6 Heart Rate 1: 53 bpm Height: 5'7" SpO2: 96% 01/16/2019 Blood Pressure 1: 156/70 Code: 8480-6 BMI: 30.1 Code: 27467-3 Heart Rate 1: 50 bpm Height: 5'7" SpO2: 98% Weight: 192 lbs 10/12/2018 Blood Pressure 1: 142/76 Code: 8480-6 BMI: 30.1 Code: 16763-0 Heart Rate 1: 83 bpm Height: 5'7" SpO2: 98% Weight: 192 lbs 09/06/2018 Blood Pressure 1: 142/66 Code: 8480-6 BMI: 30.9 Code: 05532-3 Heart Rate 1: 64 bpm Height: 5'7" SpO2: 98% Waist Measure (cm): 99 cm Weight: 197 lbs 08/16/2018 Blood Pressure 1: 140/70 Code: 8480-6 BMI: 34.4 Code: 92333-3 Heart Rate 1: 63 bpm Height: 5'7" SpO2: 95% Weight: 219 lbs 14 oz 04/12/2018 Blood Pressure 1: 160/70 Code: 8480-6 BMI: 33.0 Code: 01876-1 Heart Rate 1: 82 bpm Height: 5'7" SpO2: 95% Weight: 211 lbs 01/20/2018 Blood Pressure 1: 152/66 Code: 8480-6 BMI: 31.8 Code: 38172-9 Heart Rate 1: 52 bpm Height: 5'7" SpO2: 98% Temperature: 36.3 (C) / 97.3 (F) Weight: 203 lbs 12/29/2017 Blood Pressure 1: 168/72 Code: 8480-6 BMI: 32.1 Code: 80984-1 Heart Rate 1: 63 bpm Height: 5'7" SpO2: 98% Weight: 205 lbs 08/24/2017 Blood Pressure 1: 186/70 Code: 8480-6 Blood Pressure 1: 150/70 Code: 8480-6 BMI: 31.8 Code: 46624-9 Heart Rate 1: 53 bpm Height: 5'7" SpO2: 98% Weight: 203 lbs 07/26/2017 Blood Pressure 1: 206/78 Code: 8480-6 Blood Pressure 2: 210/84 Code: 8480-6 BMI: 32.0 Code: 02944-4 Heart Rate 1: 49 bpm Height: 5'7" SpO2: 97% Weight: 204 lbs 07/20/2017 Blood Pressure 1: 148/82 Code: 8480-6 Heart Rate 1: 90 bpm SpO2: 98% 05/27/2017 Blood Pressure 1: 142/72 Code: 8480-6 BMI: 30.5 Code: 89534-2 Heart Rate 1: 97 bpm Height: 5'7" [...] 1: 148/70 Code: 8480-6 BMI: 30.4 Code: 66250-3 Heart Rate 1: 54 bpm Height: 5'7" SpO2: 97% Weight: 194 lbs 03/30/2017 BMI: 33.2 Code: 39061-5 Height: 5'7" Weight: 212 lbs 03/16/2017 Blood Pressure 1: 140/80 Code: 8480-6 BMI: 34.0 Code: 49285-8 Heart Rate 1: 70 bpm Height: 5'7" SpO2: 95% Weight: 217 lbs 03/12/2017 Blood Pressure 1: 142/80 Code: 8480-6 BMI: 34.0 Code: 52803-4 Heart Rate 1: 76 bpm Height: 5'7" SpO2: 92% Weight: 217 lbs 02/17/2017 Blood Pressure 1: 162/64 Code: 8480-6 BMI: 32.9 Code: 85275-2 Heart Rate 1: 59 bpm Height: 5'7" SpO2: 97% Weight: 210 lbs 01/20/2017 Blood Pressure 1: 162/74 Code: 8480-6 BMI: 32.9 Code: 87220-9 Heart Rate 1: 56 bpm Height: 5'7" SpO2: 98% Weight: 210 lbs 11/17/2016 Blood Pressure 1: 156/60 Code: 8480-6 BMI: 34.8 Code: 79603-4 Heart Rate 1: 63 bpm Height: 5'7" SpO2: 96% Weight: 222 lbs 11/05/2016 Blood Pressure 1: 160/68 Code: 8480-6 BMI: 34.5 Code: 26755-7 Heart Rate 1: 66 bpm Height: 5'7" SpO2: 97% Temperature: 36.9 (C) / 98.5 (F) Weight: 220 lbs 09/21/2016 Blood Pressure 1: 180/72 Code: 8480-6 Blood Pressure 1: 166/72 Code: 8480-6 BMI: 32.1 Code: 28055-1 Heart Rate 1: 57 bpm Height: 5'7" SpO2: 98% Weight: 205 lbs 09/16/2016 Blood Pressure 1: 168/70 Code: 8480-6 Heart Rate 1: 49 bpm SpO2: 95% 08/03/2016 Blood Pressure 1: 162/70 Code: 8480-6 BMI: 32.0 Code: 35299-5 Heart Rate 1: 43 bpm Height: 5'7" SpO2: 98% Weight: 204 lbs 07/06/2016 Blood Pressure 1: 170/86 Code: 8480-6 BMI: 32.0 Code: 88853-9 Heart Rate 1: 48 bpm Height: 5'7" [...] spasm of back[ICD10: M62.830] Yuridia Camejo MD, [facility] CPT-4: 42425 02/14/2019 ([id number]) 77415 EST. PATIENT, LEVEL III Diagnosis: Essential (primary) hypertension[ICD10: I10] Diagnosis: Lumbago with sciatica, right side[ICD10: M54.41] Yuridia Camejo MD, [facility] CPT-4: 08976 01/30/2019 ([id number]) 18063 EST. PATIENT, LEVEL III Diagnosis: Essential (primary) hypertension[ICD10: I10] Diagnosis: Other allergic rhinitis[ICD10: J30.89] Yuridia Camejo MD, [facility] CPT-4: 16267 01/16/2019 35834 EST. PATIENT, LEVEL IV Diagnosis: Other acute sinusitis[ICD10: J01.80] Diagnosis: Other allergic rhinitis[ICD10: J30.89] Krysta Camejo MD, [facility] CPT- 4: 04700 10/12/2018 ([id number]) 48690 EST. PATIENT, LEVEL IV Diagnosis: Essential (primary) hypertension[ICD10: I10] Diagnosis: Type 2 diabetes mellitus without complications[ICD10: E11.9] Diagnosis: Mixed hyperlipidemia[ICD10: E78.2] Fifi Camejo MD, [facility] CPT- 4: 06838 08/16/2018 ([id number]) 06026 EST. PATIENT, LEVEL IV Diagnosis: Type 2 diabetes mellitus without complications[ICD10: E11.9] Diagnosis: Mixed hyperlipidemia[ICD10: E78.2] Diagnosis: Essential (primary) hypertension[ICD10: I10] Diagnosis: Dysuria[ICD10: R30.0] Diagnosis: Pain in left foot[ICD10: M79.672] Fifi Camejo MD, [facility] CPT- 4: 40333 04/12/2018 ([id number]) 20533 EST. PATIENT, LEVEL III Diagnosis: Otalgia, bilateral[ICD10: H92.03] Diagnosis: Other allergic rhinitis[ICD10: J30.89] Yuridia Camejo MD, [facility] CPT-4: 17369 01/20/2018 ([id number]) 49844 EST. PATIENT, LEVEL IV Diagnosis: Type 2 diabetes mellitus without complications[ICD10: E11.9] Diagnosis: Mixed hyperlipidemia[ICD10: E78.2] Diagnosis: Essential (primary) hypertension[ICD10: I10] Diagnosis: Dysuria[ICD10: R30.0] Fifi Camejo MD, [facility] CPT-4: 76841 12/29/2017 ([id number]) 12245 EST. PATIENT, LEVEL IV Diagnosis: Essential (primary) hypertension[ICD10: I10] Diagnosis: Cysts of left upper eyelid[ICD10: H02.824] Diagnosis: Pain in left foot[ICD10: M79.672] Fifi Camejo MD, [facility] CPT- 4: 29850 08/24/2017 ([id number]) 51393 EST. PATIENT, LEVEL III Diagnosis: Essential (primary) hypertension[ICD10: I10] Fifi Camejo MD, [facility] CPT-4: 41596 07/26/2017 ([id number]) Miscellaneous no charge Diagnosis: Essential (primary) hypertension[ICD10: I10] Fifi Camejo MD, [facility] CPT-4: 78109 07/20/2017 74063 EST. PATIENT, LEVEL III Diagnosis: Otalgia, bilateral[ICD10: H92.03] Diagnosis: Dizziness and giddiness[ICD10: R42] Diagnosis: Mixed hyperlipidemia[ICD10: E78.2] Krysta Camejo MD, [facility] CPT-4: 09523 05/27/2017 ([id number]) Miscellaneous no charge Diagnosis: Essential (primary) hypertension[ICD10: I10] Krysta Camejo MD, [facility] CPT-4: 80575 05/07/2017 ([id number]) 12123 EST. PATIENT, LEVEL IV Diagnosis: Otalgia, bilateral[ICD10: H92.03] Diagnosis: Dizziness and giddiness[ICD10: R42] Diagnosis: Orthostatic hypotension[ICD10: I95.1] Fifi Camejo MD, [facility] CPT-4: 55116 05/03/2017 53304 EST. PATIENT, LEVEL IV Diagnosis: Essential (primary) hypertension[ICD10: I10] Diagnosis: Type 2 diabetes mellitus without complications[ICD10: E11.9] Diagnosis: Gastro-esophageal reflux disease without esophagitis[ICD10: K21.9] Diagnosis: Dizziness and giddiness[ICD10: R42] Diagnosis: Dysuria[ICD10: R30.0] Diagnosis: Other malaise[ICD10: R53.81] Krysta Camejo MD, [facility] CPT-4: 48709 04/15/2017 ([id number]) 97646 EST. PATIENT, LEVEL IV Diagnosis: Type 2 diabetes mellitus without complications[ICD10: E11.9] Diagnosis: Otalgia, bilateral[ICD10: H92.03] Diagnosis: Essential (primary) hypertension[ICD10: I10] Diagnosis: Other allergic rhinitis[ICD10: J30.89] Fifi Camejo MD, [facility] CPT-4: 55610 03/16/2017 37989 EST. PATIENT, LEVEL IV Diagnosis: Other acute sinusitis[ICD10: J01.80] Diagnosis: Acute suppurative otitis media without spontaneous rupture of ear drum, bilateral[ICD10: H66.003] Diagnosis: Other allergic rhinitis[ICD10: J30.89] Krysta Camejo MD, [facility] CPT- 4: 54677 03/12/2017 ([id number]) 54181 EST. PATIENT, LEVEL IV Diagnosis: Essential (primary) hypertension[ICD10: I10] Diagnosis: Type 2 diabetes mellitus without complications[ICD10: E11.9] Fifi Camejo MD, [facility] CPT-4: 56478 02/17/2017 ([id number]) 94306 EST. PATIENT, LEVEL IV Diagnosis: Essential (primary) hypertension[ICD10: I10] Diagnosis: Type 2 diabetes mellitus without complications[ICD10: E11.9] Fifi Camejo MD, [facility] CPT-4: 47595 01/20/2017 ([id number]) 88149 EST. PATIENT, LEVEL IV Diagnosis: Essential (primary) hypertension[ICD10: I10] Diagnosis: Type 2 diabetes mellitus without complications[ICD10: E11.9] Diagnosis: Gastro-esophageal reflux disease without esophagitis[ICD10: K21.9] RANDALL Redmond MD CPT-4: 34554 11/17/2016 ([id number]) 95425 EST. PATIENT, LEVEL III Diagnosis: Acute bronchitis due to other specified organisms[ICD10: J20.8] Diagnosis: Cough[ICD10: R05] [facility] CPT-4: 85326 11/05/2016 ([id number]) 80654 EST. PATIENT, LEVEL IV Diagnosis: Essential (primary) hypertension[ICD10: I10] Diagnosis: Type 2 diabetes mellitus without complications[ICD10: E11.9] RANDALL Redmond MD CPT-4: 42659 09/21/2016 ([id number]) Miscellaneous no charge Diagnosis: Essential (primary) hypertension[ICD10: I10] RANDALL Redmond MD CPT-4: 28881 09/16/2016 ([id number]) 86637 EST. PATIENT, LEVEL III Diagnosis: Type 2 diabetes mellitus without complications[ICD10: E11.9] Diagnosis: Essential (primary) hypertension[ICD10: I10] [facility] CPT-4: 29550 08/03/2016 ([id number]) OFFICE VISIT, NEW - LEVEL 4 Diagnosis: Essential (primary) hypertension[ICD10: I10] Diagnosis: Type 2 diabetes mellitus without complications[ICD10: E11.9] Diagnosis: Carpal tunnel syndrome, left upper limb[ICD10: G56.02] Diagnosis: Right upper quadrant pain[ICD10: R10.11] Diagnosis: Mixed hyperlipidemia[ICD10: E78.2] [facility] CPT- 4: 10742 07/06/2016 Plan of Care Planned Activity Notes [...] Summary Completed 02/14/2019 Appointment: Fifi Camejo WPtel: [phone] [facility] [place] [address] (15 min) Moderate 02/06/2019 Visit Plan: Hypertension [...] they worsen. 01/30/2019 Appointment[facility] (30 min) Complex 01/30/2019 Patient Education: Patient [...] spray. 10/12/2018 Appointment: Krysta Dale WPtel: [phone] [facility] ([facility] Complex 10/12/2018 Patient Education: Patient [...] care surrogate. 09/06/2018 Appointment: Yuridia Walsh WPtel: [id number] [facility] - Annual Wellness Visit 09/06/2018 Patient Education: Patient Medication Summary Completed 09/06/2018 Appointment: Yuridia Walsh WPtel: [id number] [place] [address] - Annual Wellness Visit 08/29/2018 Visit Plan: [...] me dications. 08/16/2018 Appointment: Fifi Camejo WPtel: [facility] [place] [address] (15 min) Moderate 08/16/2018 Patient Education: Patient [...] the foot. 04/12/2018 Appointment: Fifi Camejo WPtel: [phone] [facility] [address] (15 min) Moderate 04/12/2018 Patient Education: Patient Medication Summary Completed 04/12/2018 Care Plan: Referral Order SNOMED-CT : [id number] Pending 04/12/2018 Patient Education: Patient Medication Summary [...] allergy spray. 01/20/2018 Appointment: [facility] Walsh [phone] (15 min) Moderate 01/20/2018 Patient Education: Patient [...] Appointment: Fifi Camejo WPtel: [phone] [facility] [address] (15 min) Moderate 12/29/2017 Patient Education: Patient [...] - recommended referral to Dr. Anders in [place] 08/24/2017 Appointment: Fifi Camejo WPtel: [phone] [facility] [address] (15 min) Moderate 08/24/2017 Patient Education: Patient Medication Summary Completed 08/24/2017 Care Plan: Referral Order SNOMED-CT : [id number] Pending 08/24/2017 Visit Plan: Hypertension - uncontrolled [...] Appointment: Fifi Camejo WPtel: [phone] [facility] [address] (15 min) Moderate 07/26/2017 Patient Education: Patient [...] to medications. 05/27/2017 Appointment: Krysta Dale WPtel: [phone] [facility] (15 min) Moderate 05/27/2017 Patient Education: Patient Medication Summary Completed 05/27/2017 Appointment: Nurse Visit 05/07/2017 Patient Education: Patient Medication Summary Completed 05/07/2017 Visit Plan: Persistent vergito with bilateral air-fluid levels and ear pain. Pt was seen by Dr. Calvo- she did not like his response to her complaints. I have recommended a referral to ENT in [place] or [place]. I suspect she may need myringotomy tubes. Pt to continue with flonase. Orthostatic hypotension - dc doxazosin. Monitor blood pressures at home. stop the doxazosin meclizine change to 1/2 pill three times a day come back on Wednesday for blood pressure check 05/03/2017 Appointment: Fifi Camejo WPtel: [address] [facility] [address] [place] (15 min) Moderate 05/03/2017 Patient Education: Patient Medication Summary Completed 05/03/2017 Appointment: Fifi Camejo WPtel: [phone] [facility] [address] [place] (15 min) Moderate 04/21/2017 Visit Plan: [...] control. 04/15/2017 Appointment: [facility]rysta Dale [facility]el[phone] (30 min) Complex 04/15/2017 Patient Education: Patient [...] surrogate. 03/30/2017 Appointment: [facility]rysta Dale [facility]Ptel: [phone] [facility] - Annual Wellness Visit 03/30/2017 [...] Appointment: Fifi Camejo WPtel: [phone] [facility] [address] (30 min) Complex 03/16/2017 Patient Education: Patient Medication Summary Completed 03/16/2017 Patient Education: Obesity Completed 03/16/2017 Care Plan: Referral Order SNOMED-CT : [id number] Pending 03/16/2017 Visit Plan: Allergies - chronic [...] worsen. 03/12/2017 Appointment: Krysta Dale [facility]Ptel: [phone] (15 min) Moderate 03/12/2017 Patient Education: Patient [...] Appointment: Fifi Camejo WPtel: [phone] [facility] [address] (30 min) Complex 02/17/2017 Patient Education: Patient [...] Appointment: Fifi Camejo WPtel: [phone] [facility] [address] (30 min) Complex 01/20/2017 Patient Education: Patient [...] Appointment: Fifi Camejo WPtel: [phone] [facility] [address] (30 min) Complex 11/17/2016 Patient Education: Patient [...] Appointment: Nell Fifi WPtel: [address] [facility] [address] (15 min) Moderate 09/21/2016 Patient Education: Patient [...] this time. 08/03/2016 Appointment: Fifi Camejo WPtel: [phone] [facility] (15 min) Moderate 08/03/2016 Patient Education: Patient [...] improving. 07/06/2016 Appointment: Fifi Camejo WPtel: [phone] [facility] New Patient 07/06/2016 Patient Education: Patient Medication [...] [facility] Hypertension - [...] monitor your heart rate Consider referral for waste water operator for possible stress test if needed. Call [...] monitor your heart rate Consider referral for waste water operator for possible stress test if needed. Call [...] have recommended a referral to ENT in [facility]. I suspect she may need myringotomy tubes. [...] - recommended referral to Dr. Anders in [place]
[2019-03-08 15:41] LABS: ALBUMIN 4.2 GM/DL (3.2-4.5); BILIRUBIN,TOTAL 0.8 MG/DL (0.1-1.0); CALCIUM 10.1 MG/DL (8.5-10.1); CREATININE SERUM 1.33 MG/DL (0.60-1.30); MAGNESIUM 1.9 MG/DL (1.8-2.4); POTASSIUM 4.2 MMOL/L (3.6-5.0); TOTAL PROTEIN 7.2 GM/DL (6.4-8.2)
[2019-03-08] MEDS ORDERED: PROMETHAZINE INJ 25 MG/ML (PHENERGAN) AMP IVP ONE (15:45)
--- OUTSIDE RECORDS SUMMARY | 2019-03-08 15:45 | XMS REPORT | CCD ---
Author Author Fifi Camejo Organization Fifi Camejo MD, [facility] Address [address] [place] [address] Phone Care Team Providers Care Floriculturist Name Role Phone PP Unavailable CCM Unavailable Summary Purpose Interface Exchange Insurance Providers Payer name Policy type / Coverage type Covered green party ID Effective Begin Date Effective End Date WPS Medicare Part B Medicare Part B [id number] 2018 Unknown FOR LIFE WPS Medicare Part B [id number] Unknown Family history Father Diagnosis Age At Onset Cancer Unknown Brother Diagnosis Age At Onset Diabetes mellitus Type 2 Unknown Heart Attack Unknown Social History Social History Element Codes Description Effective Dates Marital status Unknown Wu 11/05/2016 Number of children Unknown 1 07/06/2016 Employment Unknown Retired 07/06/[address]: 349510670 Never smoker 07/06/[address]: 680172816 Never drinks alcohol 07/06/2016 Allergies, Adverse Reactions, Alerts Substance Reaction Codes Entered Date Inactivated Date Status Protonix hives RxNorm: 930547 09/06/2018 No Inactive Date Active IV DYE, IODINE CONTAINING emesis, emesis Unknown 04/28/2018 No Inactive Date Active MORPHINE AND RELATED Unknown 04/28/2018 No Inactive Date Active Penicillin Unknown 07/06/2016 No Inactive Date Active Past Medical History Illness Codes Condition Status Onset Date Resolved Date Sciatica Unknown Active 01/30/2019 Unknown Essential (primary) hypertension ICD-9: 401.1 ICD-10: I10 Active 09/20/2016 Unknown Lumbago with sciatica, right side ICD-9: 724.3 ICD-10: M54.41 Active 01/30/2019 Unknown Other allergic rhinitis ICD-9: [...] Problems Condition Codes Effective Dates Condition Status Sciatica Unknown 01/30/2019 Active Essential (primary) hypertension ICD-9: 401.1 ICD-10: I10 09/20/2016 Active Lumbago with sciatica, right side ICD-9: 724.3 ICD-10: M54.41 01/30/2019 Active Other allergic rhinitis ICD-9: 477.8 [...] Parafon Forte DSC 500 mg tablet RxNorm: 511940 1 Tablet(s) PO qid prn 02/13/2019 No Stop Date Active diclofenac 1 % topical gel RxNorm: 737742 4 Gram(s) TOP QID 01/31/2019 03/01/2019 Active tramadol 50 mg tablet RxNorm: 140557 1 Tablet(s) PO qid prn 01/30/2019 No Stop Date Active Voltaren 1 % topical gel RxNorm: 971135 4 Gram(s) TOP QID 01/30/2019 01/30/2019 Inactive Parafon Forte DSC 500 mg tablet RxNorm: 031269 1 Tablet(s) PO qid prn 01/30/2019 02/12/2019 Inactive diclofenac 1 % topical gel RxNorm: 671824 4 Gram(s) TOP QID 01/30/2019 01/29/2019 Inactive diclofenac 1 % topical gel RxNorm: 677718 4 Gram(s) TOP QID 01/30/2019 01/30/2019 Inactive atorvastatin 10 mg tablet RxNorm: 066989 1 Tablet(s) PO QPM 01/16/2019 01/10/2020 Active hydralazine 10 mg tablet RxNorm: 843318 1 Tablet(s) PO TID PRN 01/16/2019 07/14/2019 Active prn sbp over 150 alprazolam 0.5 mg tablet RxNorm: 322637 1 Tablet(s) PO TID as needed anxiety 01/16/2019 07/14/2019 Active fluticasone propionate 50 mcg/actuation nasal spray,suspension RxNorm: 6943563 2 [place] daily USE 1 SPRAY NASALLY TWICE A DAY 01/16/2019 01/10/2020 Active hydralazine 10 mg tablet RxNorm: 270963 1 Tablet(s) PO TID PRN 01/16/2019 01/15/2019 Inactive prn sbp over 150 clonidine HCl 0.1 mg tablet RxNorm: 473163 1/2 Tablet(s) PO QHS 01/16/2019 01/16/2019 Inactive cefdinir 300 mg capsule RxNorm: 533576 1 Capsule(s) PO BID 01/09/2019 01/15/2019 Inactive cefdinir 300 mg capsule RxNorm: 981212 1 Capsule(s) PO BID 01/09/2019 01/08/2019 Inactive Zithromax Z-Juan 250 mg tablet RxNorm: 554687 1 Tablet(s) PO UD 01/03/2019 01/07/2019 Inactive zpack as directed Kenalog 40 mg/mL suspension for injection RxNorm: 7660241 Milliliter(s) Inj 01/02/2019 01/02/2019 Inactive Zithromax Z-Juan 250 mg tablet RxNorm: 738911 1 Tablet(s) PO UD 12/30/2018 01/02/2019 Inactive zpack as directed metoprolol tartrate 50 mg tablet RxNorm: 849060 1/2 TABLET(S) PO BID 12/02/2018 No Stop Date Active amlodipine 10 mg tablet RxNorm: 441028 TAKE 1 TABLET DAILY 10/24/2018 No Stop Date Active cefdinir 300 mg capsule RxNorm: 941206 1 Capsule(s) PO BID 10/19/2018 10/22/2018 Inactive Zithromax Z-Juan 250 mg tablet RxNorm: 902535 1 Tablet(s) PO UD 10/19/2018 10/23/2018 Inactive zpack as directed glimepiride 4 mg tablet RxNorm: 175319 Tablet(s) 1 TABLET(S) PO DAILY 10/12/2018 No Stop Date Active cefdinir 300 mg capsule RxNorm: 727114 1 Capsule(s) PO BID 10/12/2018 10/18/2018 Inactive Zithromax Z-Juan 250 mg tablet RxNorm: 409076 1 Tablet(s) PO UD 10/12/2018 10/16/2018 Inactive zpack as directed Tessalon Perles 100 mg capsule RxNorm: 678353 2 Capsule(s) PO TID as needed cough 10/12/2018 10/16/2018 Inactive Kenalog 40 mg/mL suspension for injection RxNorm: 8810432 1 Milliliter(s) Inj 10/12/2018 10/12/2018 Inactive Zithromax Z-Juan 250 mg tablet RxNorm: 107523 1 Tablet(s) PO UD 08/22/2018 08/26/2018 Inactive zpack as directed clonidine HCl 0.1 mg tablet RxNorm: 707185 1 Tablet(s) PO QAM 08/16/2018 01/15/2019 Inactive losartan 100 mg tablet RxNorm: 068623 1 TABLET(S) PO DAILY FOR HIGH BLOOD PRESSURE 08/12/2018 No Stop Date Active alprazolam 0.5 mg tablet RxNorm: 790400 1 Tablet(s) PO TID as needed anxiety 06/30/2018 12/26/2018 Inactive fluticasone 50 mcg/actuation nasal spray,suspension RxNorm: 0899565 USE 1 SPRAY NASALLY TWICE A DAY 05/06/2018 01/15/2019 Inactive clonidine HCl 0.1 mg tablet RxNorm: 737102 1 Tablet(s) PO BID 04/14/2018 08/15/2018 Inactive clonidine HCl 0.1 mg tablet RxNorm: 234557 1 Tablet(s) PO TID 04/12/2018 04/13/2018 Inactive Zithromax Z-Juan 250 mg tablet RxNorm: 558050 1 Tablet(s) PO UD 01/20/2018 08/21/2018 Inactive disregard first rx for 1 - patient needs 3 packs-please dispense generic azithromycin Zithromax Z-Juan 250 mg tablet RxNorm: 968911 1 Tablet(s) PO UD 01/20/2018 01/19/2018 Inactive Zithromax Z-Juan 250 mg tablet RxNorm: 761283 1 Tablet(s) PO UD 01/20/2018 01/19/2018 Inactive disregard first rx for 1 - patient needs 3 packs Zithromax Z-Juan 250 mg tablet RxNorm: 195132 1 Tablet(s) PO UD 01/20/2018 01/19/2018 Inactive atorvastatin 10 mg tablet RxNorm: 028208 1 Tablet(s) PO QPM 12/30/2017 12/24/2018 Inactive atorvastatin 10 mg tablet RxNorm: 917374 1 Tablet(s) PO QPM 12/30/2017 12/29/2017 Inactive clonidine HCl 0.1 mg tablet RxNorm: 515853 1 Tablet(s) PO BID 12/29/2017 04/11/2018 Inactive Lipitor 10 mg tablet RxNorm: 995820 1 Tablet(s) PO QPM 12/29/2017 12/29/2017 Inactive OKAY TO DISPENSE GENERIC metoprolol tartrate 50 mg tablet RxNorm: 723416 1/2 Tablet(s) PO BID 12/29/2017 12/01/2018 Inactive alprazolam 0.5 mg tablet RxNorm: 607123 1 Tablet(s) PO TID as needed anxiety 11/18/2017 05/16/2018 Inactive glimepiride 4 mg tablet RxNorm: 418743 1 TABLET(S) PO DAILY 11/15/2017 10/11/2018 Inactive alprazolam 0.5 mg tablet RxNorm: 850050 1 Tablet(s) PO TID as needed anxiety 09/20/2017 11/17/2017 Inactive Zithromax Z-Juan 250 mg tablet RxNorm: 988467 1 Tablet(s) PO UD 09/20/2017 12/28/2017 Inactive Zithromax Z-Juan 250 mg tablet RxNorm: 512383 1 Tablet(s) PO UD 09/14/2017 09/19/2017 Inactive clonidine HCl 0.1 mg tablet RxNorm: 910328 1/2 Tablet(s) PO BID 08/24/2017 12/28/2017 Inactive amlodipine 10 mg tablet RxNorm: 385864 1 Tablet(s) PO daily 08/24/2017 08/18/2018 Inactive erythromycin 5 mg/gram (0.5 %) eye ointment RxNorm: 732391 1 Gram(s) ophthalmic (eye) QID left eye cyst 08/24/2017 09/06/2017 Inactive losartan 100 mg tablet RxNorm: 681762 1 Tablet(s) PO daily for high blood pressure 08/16/2017 08/10/2018 Inactive metoprolol tartrate 50 mg tablet RxNorm: 837004 1/2 Tablet(s) PO BID 07/26/2017 12/28/2017 Inactive clonidine HCl 0.1 mg tablet RxNorm: 128065 1/2 Tablet(s) PO BID 07/26/2017 08/23/2017 Inactive metoprolol tartrate 50 mg tablet RxNorm: 340966 1 Tablet(s) PO BID 07/21/2017 07/25/2017 Inactive amlodipine 10 mg tablet RxNorm: 884885 1 TABLET(S) PO DAILY 06/29/2017 08/23/2017 Inactive Lipitor 10 mg tablet RxNorm: 698407 1 Tablet(s) PO QPM 05/27/2017 12/28/2017 Inactive OKAY TO DISPENSE GENERIC alprazolam 0.5 mg tablet RxNorm: 584827 1 Tablet(s) PO TID as needed anxiety 05/18/2017 08/15/2017 Inactive hydrochlorothiazide 12.5 mg tablet RxNorm: 459881 1 Tablet(s) PO daily 04/22/2017 05/21/2017 Inactive hydrochlorothiazide 12.5 mg tablet RxNorm: 661212 1 Tablet(s) PO daily 04/22/2017 04/21/2017 Inactive Cipro 500 mg tablet RxNorm: 739712 1 Tablet(s) PO BID 04/16/2017 04/22/2017 Inactive Zofran 4 mg tablet RxNorm: 413371 1 Tablet(s) PO BID as needed nausea and vomitting 04/15/2017 04/19/2017 Inactive Lipitor 10 mg tablet RxNorm: 516968 1 Tablet(s) PO QPM 03/30/2017 05/26/2017 Inactive OKAY TO DISPENSE GENERIC Kenalog 40 mg/mL suspension for injection RxNorm: 6917038 1 Milliliter(s) Inj 03/16/2017 03/16/2017 Inactive doxazosin 4 mg tablet RxNorm: 659392 1.5 Tablet(s) PO BID 03/16/2017 05/02/2017 Inactive prednisone 10 mg tablets in a dose pack RxNorm: 342325 Tablet(s) take dose pack as directed PO take with food 03/16/2017 05/23/2017 Inactive Kenalog 40 mg/mL suspension for injection RxNorm: 1837854 Milliliter(s) Inj 03/12/2017 03/12/2017 Inactive Zithromax Z-Juan 250 mg tablet RxNorm: 210428 1 Tablet(s) PO daily 03/11/2017 03/10/2017 Inactive zpack as directed Zithromax Z-Juan 250 mg tablet RxNorm: 817001 1 Tablet(s) PO daily 03/11/2017 03/15/2017 Inactive zpack as directed doxazosin 4 mg tablet RxNorm: 577567 1.5 Tablet(s) PO BID 02/12/2017 03/15/2017 Inactive fluticasone 50 mcg/actuation nasal spray,suspension RxNorm: 8605054 1 SPRAY NASAL BID 02/05/2017 05/05/2018 Inactive metoprolol tartrate 75 mg tablet RxNorm: 7392825 1 Tablet(s) PO BID 01/29/2017 07/19/2017 Inactive metoprolol tartrate 75 mg tablet RxNorm: 3652079 1 Tablet(s) PO BID 01/29/2017 01/28/2017 Inactive doxazosin 4 mg tablet RxNorm: 259948 1 Tablet(s) PO BID 01/20/2017 02/11/2017 Inactive pantoprazole 40 mg tablet,delayed release RxNorm: 798251 1 Tablet(s) PO daily 12/24/2016 01/19/2017 Inactive pantoprazole 40 mg tablet,delayed release RxNorm: 722297 1 Tablet(s) PO daily 12/24/2016 12/23/2016 Inactive alprazolam 0.5 mg tablet RxNorm: 480463 1 Tablet(s) PO TID as needed anxiety 12/03/2016 04/01/2017 Inactive fluticasone 50 mcg/actuation nasal spray,suspension RxNorm: 3007190 1 [place] NASAL BID 11/25/2016 12/24/2016 Inactive Dexilant 60 mg capsule, delayed release RxNorm: 588077 1 Capsule(s) PO daily 11/25/2016 11/24/2016 Inactive fluticasone 50 mcg/actuation nasal spray,suspension RxNorm: 4434409 1 [place] NASAL BID 11/25/2016 11/24/2016 Inactive fluticasone 50 mcg/actuation nasal spray,suspension RxNorm: 4988024 1 [place] NASAL BID 11/25/2016 11/24/2016 Inactive Dexilant 60 mg capsule, delayed release RxNorm: 576779 1 Capsule(s) PO daily 11/25/2016 12/23/2016 Inactive ProAir RespiClick 90 mcg/actuation breath activated RxNorm: 2976066 1 INH bid and QID as needed 11/19/2016 05/17/2017 Inactive Please send STAT Flonase Allergy Relief 50 mcg/actuation nasal spray,suspension RxNorm: 7839155 1 [place] NASAL BID 11/19/2016 11/24/2016 Inactive glimepiride 4 mg tablet RxNorm: 045755 1 Tablet(s) PO daily 11/19/2016 11/13/2017 Inactive metoprolol tartrate 50 mg tablet RxNorm: 996648 1 Tablet(s) PO BID 11/19/2016 01/28/2017 Inactive Flonase Allergy Relief 50 mcg/actuation nasal spray,suspension RxNorm: 6991784 1 [place] NASAL BID 11/17/2016 11/18/2016 Inactive metoprolol tartrate 50 mg tablet RxNorm: 709679 1 Tablet(s) PO BID 11/17/2016 11/18/2016 Inactive ProAir RespiClick 90 mcg/actuation breath activated RxNorm: 5435281 1 INH bid and QID as needed 11/17/2016 11/16/2016 Inactive glimepiride 4 mg tablet RxNorm: 744375 1 Tablet(s) PO daily 11/17/2016 11/18/2016 Inactive ProAir RespiClick 90 mcg/actuation breath activated RxNorm: 2144109 1 INH bid and QID as needed 11/17/2016 11/18/2016 Inactive Please send STAT Kenalog 40 mg/mL suspension for injection RxNorm: 0597503 1 Milliliter(s) Inj 11/05/2016 11/05/2016 Inactive azithromycin 250 mg tablet RxNorm: 263289 Tablet(s) PO 2 tabs on day #1, then daily x 4 days 11/05/2016 12/23/2016 Inactive doxazosin 4 mg tablet RxNorm: 738014 1 Tablet(s) PO QPM 10/02/2016 01/19/2017 Inactive doxazosin 4 mg tablet RxNorm: 914231 1 Tablet(s) PO QPM 09/29/2016 10/01/2016 Inactive doxazosin 4 mg tablet RxNorm: 339233 1 Tablet(s) PO QPM 09/21/2016 09/28/2016 Inactive Cipro 500 mg tablet RxNorm: 368720 1 Tablet(s) PO BID 09/18/2016 09/17/2016 Inactive Cipro 500 mg tablet RxNorm: 024361 1 Tablet(s) PO BID 09/18/2016 09/24/2016 Inactive losartan 100 mg tablet RxNorm: 146654 1 Tablet(s) PO daily for high blood pressure 09/16/2016 09/15/2016 Inactive alprazolam 0.5 mg tablet RxNorm: 437975 1 Tablet(s) PO TID as needed anxiety 09/16/2016 11/14/2016 Inactive losartan 100 mg tablet RxNorm: 033669 1 Tablet(s) PO daily for high blood pressure 09/16/2016 08/15/2017 Inactive amlodipine 10 mg tablet RxNorm: 930942 1 Tablet(s) PO daily 08/03/2016 06/28/2017 Inactive Zyrtec 10 mg tablet RxNorm: 3921464 1 Tablet(s) PO daily 08/03/2016 09/15/2016 Inactive losartan 25 mg tablet RxNorm: 391995 1 Tablet(s) PO daily 07/08/2016 09/15/2016 Inactive Lipitor 10 mg tablet RxNorm: 737849 1 Tablet(s) PO QPM 07/08/2016 07/17/2016 Inactive OKAY TO DISPENSE GENERIC Lipitor 10 mg tablet RxNorm: 281845 1 Tablet(s) PO QPM 07/06/2016 07/07/2016 Inactive OKAY TO DISPENSE GENERIC losartan 25 mg tablet RxNorm: 172156 1 Tablet(s) PO daily 07/06/2016 07/07/2016 Inactive meclizine 25 mg tablet RxNorm: 737121 1 Tablet(s) PO TID as needed No Start Date Active [place] 0.7 % eye drops RxNorm: 4241413 Drop(s) ophthalmic (eye) as needed dry eyes No Start Date Active Zithromax Z-Juan 250 mg tablet RxNorm: 705397 1 Tablet(s) PO UD No Start Date 09/13/2017 Inactive glimepiride 4 mg tablet RxNorm: 409526 1 Tablet(s) PO daily No Start Date 11/16/2016 Inactive metoprolol tartrate 100 mg tablet RxNorm: 902557 1 Tablet(s) PO BID No Start Date 07/21/2017 Inactive naproxen 500 mg tablet RxNorm: 211039 1 Tablet(s) PO BID No Start Date 03/23/2017 Inactive amlodipine 5 mg tablet RxNorm: 439364 1 Tablet(s) PO daily No Start Date 08/02/2016 Inactive Parafon Forte DSC 500 mg tablet RxNorm: 045761 1 Tablet(s) PO QID No Start Date 01/29/2019 Inactive metoprolol tartrate 50 mg tablet RxNorm: 832995 1 Tablet(s) PO BID No Start Date 11/16/2016 Inactive Medication Administered Medication Codes Instructions Start Date Status Kenalog 40 mg/mL suspension for injection RxNorm: 1419496 Milliliter 01/02/2019 No longer Active Kenalog 40 mg/mL suspension for injection RxNorm: 8767454 1Milliliter 10/12/2018 No longer Active Kenalog 40 mg/mL suspension for injection RxNorm: 2121183 1Milliliter 03/16/2017 No longer Active Kenalog 40 mg/mL suspension for injection RxNorm: 5456734 Milliliter 03/12/2017 No longer Active Kenalog 40 mg/mL suspension for injection RxNorm: 3854602 1Milliliter 11/05/2016 No longer Active Immunizations Vaccine Codes Date Status Influenza CVX: 141 08/16/2018 completed Influenza CVX: 141 08/10/2017 completed Assessments Condition Codes Effective Dates Essential (primary) hypertension ICD-10: I10 ICD-9: 401.1 01/30/2019 Lumbago with sciatica, right side ICD-10: M54.41 ICD-9: 724.3 01/30/2019 Other allergic rhinitis ICD-10: J30.89 ICD-9: [...] Reason For Visit Effective Dates Notes sciatica 01/30/2019 cough 01/16/2019 sinus congestion 10/12/2018 [...] Lipid Ord30 C/HDL 3.1 Ratio 08/18/2018 Microalbumin Btj014 MicroAlb 7.5 mg/dL 08/18/2018 Cbc With Differential [...] 29.6 pg 08/18/2018 Cbc With Differential Ord2 [place]% 10.6 % 08/18/2018 Cbc With Differential Ord2 [...] 1.69 K/ul 08/18/2018 Cbc With Differential Ord2 [place] ABS# 0.6 K/ul 08/18/2018 Cbc With Differential Ord2 Eos ABS# 0.3 K/ul 08/18/2018 Cbc With Differential Ord2 Baso ABS# 0.0 K/ul 08/18/2018 Comp Metabolic Ldx552 NA 137 mEq/L 08/18/2018 Comp Metabolic Rcr111 K 3.8 mEq/L 08/18/2018 Comp Metabolic Aey743 CL 103 mEq/L 08/18/2018 Comp Metabolic Ert118 CO2 26.0 mEq/L 08/18/2018 Comp Metabolic Suq658 ANION GAP 12 08/18/2018 Comp Metabolic Coj416 GLUCOSE 110 mg/dL 08/18/2018 Comp Metabolic Chc589 Creat 1.2 mg/dL 08/18/2018 Comp Metabolic Pef283 eGFR 47 ml/min/1.73m2 08/18/2018 Comp Metabolic Uqm606 BUN 25 mg/dL 08/18/2018 Comp Metabolic Gve838 B/C Ratio 21.0 Ratio 08/18/2018 Comp Metabolic Aub909 CALCIUM 9.4 mg/dL 08/18/2018 Comp Metabolic Ipg758 ALK PHOS 99 U/L 08/18/2018 Comp Metabolic Xdh830 AST(SGOT) 31 U/L 08/18/2018 Comp Metabolic Cmw344 ALT(SGPT) 27 U/L 08/18/2018 Comp Metabolic Wux849 BILI T 0.7 mg/dL 08/18/2018 Comp Metabolic Ozy709 ALBUMIN 4.2 g/dL 08/18/2018 Comp Metabolic Tad727 TPRO 6.7 g/dL 08/18/2018 Comp Metabolic Hxn398 GLOB 2.5 g/dL 08/18/2018 Comp Metabolic Vkj502 A/G Ratio 1.7 Ratio 08/18/2018 Comp Metabolic Bcc460 Osmo 279 mOsmo 08/18/2018 %Hba1C Axu735 % HbA1c 77218- 6 6.1 % 08/18/2018 %Hba1C Gpq031 Gluc Ave 128 mg/dL 08/18/2018 Tsh Ord6 TSH (3rd IS) 3.93 uIU/mL 08/18/2018 Lipid Ord30 CHOL 146 mg/dL 04/15/2018 Lipid Ord30 HDL 62.0 mg/dl 04/15/2018 Lipid Ord30 TRIG 88 mg/dL 04/15/2018 Lipid Ord30 LDL 66 mg/dL 04/15/2018 Lipid Ord30 C/HDL 2.4 Ratio 04/15/2018 %Hba1C Icb371 % HbA1c 06866- 6 6.3 % 04/15/2018 %Hba1C Goj467 Gluc Ave 134 mg/dL 04/15/2018 Cbc With [...] 30.2 pg 04/15/2018 Cbc With Differential Ord2 [place]% 6.8 % 04/15/2018 Cbc With Differential Ord2 [...] 2.10 K/ul 04/15/2018 Cbc With Differential Ord2 [place] ABS# 0.5 K/ul 04/15/2018 Cbc With Differential Ord2 Eos ABS# 0.2 K/ul 04/15/2018 Cbc With Differential Ord2 Baso ABS# 0.0 K/ul 04/15/2018 Comp Metabolic Ijq216 NA 140 mEq/L 04/15/2018 Comp Metabolic Kvs977 K 4.3 mEq/L 04/15/2018 Comp Metabolic Xui202 CL 106 mEq/L 04/15/2018 Comp Metabolic Dpy858 CO2 23.0 mEq/L 04/15/2018 Comp Metabolic Itv021 ANION GAP 15 04/15/2018 Comp Metabolic Ire303 GLUCOSE 90 mg/dL 04/15/2018 Comp Metabolic Qhh557 Creat 1.2 mg/dL 04/15/2018 Comp Metabolic Flv402 eGFR 45 ml/min/1.73m2 04/15/2018 Comp Metabolic Ibn760 BUN 28 mg/dL 04/15/2018 Comp Metabolic Fpz808 B/C Ratio 22.8 Ratio 04/15/2018 Comp Metabolic Ebe651 CALCIUM 9.5 mg/dL 04/15/2018 Comp Metabolic Rdv416 ALK PHOS 95 U/L 04/15/2018 Comp Metabolic Qzc578 AST(SGOT) 20 U/L 04/15/2018 Comp Metabolic Vzo329 ALT(SGPT) 13 U/L 04/15/2018 Comp Metabolic Alk952 BILI T 0.5 mg/dL 04/15/2018 Comp Metabolic Bud988 ALBUMIN 4.1 g/dL 04/15/2018 Comp Metabolic Zkr976 TPRO 6.6 g/dL 04/15/2018 Comp Metabolic Jrg154 GLOB 2.5 g/dL 04/15/2018 Comp Metabolic Vjz111 A/G Ratio 1.6 Ratio 04/15/2018 Comp Metabolic Wup689 Osmo 284 mOsmo 04/15/2018 Comp Metabolic Owz444 NA 137 mEq/L 02/04/2018 Comp Metabolic Ded978 K 4.0 mEq/L 02/04/2018 Comp Metabolic Zgv193 CL 104 mEq/L 02/04/2018 Comp Metabolic Flq927 CO2 27.0 mEq/L 02/04/2018 Comp Metabolic Ofc921 ANION GAP 10 02/04/2018 Comp Metabolic Vnb611 GLUCOSE 212 mg/dL 02/04/2018 Comp Metabolic Thq158 Creat 1.2 mg/dL 02/04/2018 Comp Metabolic Yla422 eGFR 47 ml/min/1.73m2 02/04/2018 Comp Metabolic Hni488 BUN 20 mg/dL 02/04/2018 Comp Metabolic Fnx467 B/C Ratio 16.8 Ratio 02/04/2018 Comp Metabolic Yto940 CALCIUM 8.9 mg/dL 02/04/2018 Comp Metabolic Mxh005 ALK PHOS 107 U/L 02/04/2018 Comp Metabolic Muq426 AST(SGOT) 17 U/L 02/04/2018 Comp Metabolic Rps651 ALT(SGPT) 11 U/L 02/04/2018 Comp Metabolic Kqk132 BILI T 0.4 mg/dL 02/04/2018 Comp Metabolic Zfy829 ALBUMIN 3.8 g/dL 02/04/2018 Comp Metabolic Rec504 TPRO 6.2 g/dL 02/04/2018 Comp Metabolic Bsa809 GLOB 2.4 g/dL 02/04/2018 Comp Metabolic Ofm306 A/G Ratio 1.6 Ratio 02/04/2018 Comp Metabolic Dsk900 Osmo 283 mOsmo 02/04/2018 %Hba1C Azi452 % HbA1c 46287- 6 6.3 % 12/30/2017 %Hba1C Yrb607 Gluc Ave 134 mg/dL 12/30/2017 Comp Metabolic Bas004 NA 142 mEq/L 12/30/2017 Comp Metabolic Bmg475 K 4.4 mEq/L 12/30/2017 Comp Metabolic Cwm919 CL 103 mEq/L 12/30/2017 Comp Metabolic Xin105 CO2 31.0 mEq/L 12/30/2017 Comp Metabolic Upm681 ANION GAP 12 12/30/2017 Comp Metabolic Eiv841 GLUCOSE 119 mg/dL 12/30/2017 Comp Metabolic Nux865 Creat 1.4 mg/dL 12/30/2017 Comp Metabolic Imw283 eGFR 41 ml/min/1.73m2 12/30/2017 Comp Metabolic Mhj563 BUN 27 mg/dL 12/30/2017 Comp Metabolic Vmp240 B/C Ratio 20.0 Ratio 12/30/2017 Comp Metabolic Uat078 CALCIUM 9.9 mg/dL 12/30/2017 Comp Metabolic Njk446 ALK PHOS 106 U/L 12/30/2017 Comp Metabolic Gev566 AST(SGOT) 20 U/L 12/30/2017 Comp Metabolic Kvo353 ALT(SGPT) 13 U/L 12/30/2017 Comp Metabolic Pzw555 BILI T 0.7 mg/dL 12/30/2017 Comp Metabolic Eus443 ALBUMIN 4.2 g/dL 12/30/2017 Comp Metabolic Pdl188 TPRO 6.7 g/dL 12/30/2017 Comp Metabolic Phk382 GLOB 2.6 g/dL 12/30/2017 Comp Metabolic Yod753 A/G Ratio 1.6 Ratio 12/30/2017 Comp Metabolic Wvu073 Osmo 289 mOsmo 12/30/2017 Lipid Ord30 CHOL 167 mg/dL 12/30/2017 Lipid Ord30 HDL 63.0 mg/dl 12/30/2017 Lipid Ord30 TRIG 89 mg/dL 12/30/2017 Lipid Ord30 LDL 86 mg/dL 12/30/2017 Lipid Ord30 C/HDL 2.7 Ratio 12/30/2017 Urine Culture Ucult Preliminary NO Growth Day 1 04/17/2017 Urine Culture Ucult Complete NO Growth Day 2 04/17/2017 Comp Metabolic Khj763 NA 143 mEq/L 04/15/2017 Comp Metabolic Tzv369 K 4.6 mEq/L 04/15/2017 Comp Metabolic Rqt248 CL 110 mEq/L 04/15/2017 Comp Metabolic Lop252 CO2 30.0 mEq/L 04/15/2017 Comp Metabolic Drn072 ANION GAP 8 04/15/2017 Comp Metabolic Umd469 GLUCOSE 159 mg/dL 04/15/2017 Comp Metabolic Rkb099 Creat 1.1 mg/dL 04/15/2017 Comp Metabolic Xbl074 eGFR 54 ml/min/1.73m2 04/15/2017 Comp Metabolic Kqd816 BUN 27 mg/dL 04/15/2017 Comp Metabolic Sdt081 B/C Ratio 25.7 Ratio 04/15/2017 Comp Metabolic Pcx929 CALCIUM 9.4 mg/dL 04/15/2017 Comp Metabolic Cri736 ALK PHOS 93 U/L 04/15/2017 Comp Metabolic Llg211 AST(SGOT) 19 U/L 04/15/2017 Comp Metabolic Dtu192 ALT(SGPT) 18 U/L 04/15/2017 Comp Metabolic Vke490 BILI T 0.6 mg/dL 04/15/2017 Comp Metabolic Qln406 ALBUMIN 3.9 g/dL 04/15/2017 Comp Metabolic Zeh861 TPRO 6.5 g/dL 04/15/2017 Comp Metabolic Pdi757 GLOB 2.6 g/dL 04/15/2017 Comp Metabolic Eie135 A/G Ratio 1.5 Ratio 04/15/2017 Comp Metabolic Fay601 Osmo 293 mOsmo 04/15/2017 Tsh Ord6 hTSH II 2.05 uIU/mL 04/15/2017 %Hba1C Zqu563 % HbA1c 03935- 6 6.3 % 04/15/2017 %Hba1C Dio509 Gluc Ave 134 mg/dL 04/15/2017 Cbc With [...] 29.0 pg 04/15/2017 Cbc With Differential Ord2 [place]% 6.9 % 04/15/2017 Cbc With Differential Ord2 [...] 1.58 K/ul 04/15/2017 Cbc With Differential Ord2 [place] ABS# 0.5 K/ul 04/15/2017 Cbc With Differential [...] Ord28 U-Com Culture to follow 04/15/2017 %Hba1C Zyq715 % HbA1c 47792- 6 5.8 % 01/07/2017 %Hba1C Ika352 Gluc Ave 120 mg/dL 01/07/2017 Urine Culture Ucult Preliminary NO Growth Day 1 09/21/2016 Urine Culture Ucult Complete NO Growth Day 2 09/21/2016 %Hba1C Jbq285 % HbA1c 58737- 6 6.0 % 09/17/2016 %Hba1C Jwa339 Gluc Ave 126 mg/dL 09/17/2016 Comp Metabolic Mgv256 NA 140 mEq/L 09/17/2016 Comp Metabolic Pgq089 K 4.1 mEq/L 09/17/2016 Comp Metabolic Tdn592 CL 105 mEq/L 09/17/2016 Comp Metabolic Efx908 CO2 29.0 mEq/L 09/17/2016 Comp Metabolic Pwn320 ANION GAP 10 09/17/2016 Comp Metabolic Bja453 GLUCOSE 89 mg/dL 09/17/2016 Comp Metabolic Iag626 Creat 0.9 mg/dL 09/17/2016 Comp Metabolic Grz955 eGFR 65 ml/min/1.73m2 09/17/2016 Comp Metabolic See185 BUN 20 mg/dL 09/17/2016 Comp Metabolic Ncm657 B/C Ratio 22.2 Ratio 09/17/2016 Comp Metabolic Wkr648 CALCIUM 9.3 mg/dL 09/17/2016 Comp Metabolic Gry615 ALK PHOS 107 U/L 09/17/2016 Comp Metabolic Iio268 AST(SGOT) 22 U/L 09/17/2016 Comp Metabolic Jvt685 ALT(SGPT) 15 U/L 09/17/2016 Comp Metabolic Foa374 BILI T 0.7 mg/dL 09/17/2016 Comp Metabolic Gti066 ALBUMIN 4.0 g/dL 09/17/2016 Comp Metabolic Jft262 TPRO 6.8 g/dL 09/17/2016 Comp Metabolic Ozj431 GLOB 2.8 g/dL 09/17/2016 Comp Metabolic Xil881 A/G Ratio 1.4 Ratio 09/17/2016 Comp Metabolic Fkj211 Osmo 281 mOsmo 09/17/2016 Microalbumin Qbl474 MicroAlb 44.3 mg/dL 09/17/2016 Tsh Ord6 hTSH [...] 29.0 pg 09/17/2016 Cbc With Differential Ord2 [place]% 8.1 % 09/17/2016 Cbc With Differential Ord2 [...] 1.78 K/ul 09/17/2016 Cbc With Differential Ord2 [place] ABS# 0.6 K/ul 09/17/2016 Cbc With Differential Ord2 Eos ABS# 0.2 K/ul 09/17/2016 Cbc With Differential Ord2 Baso ABS# 0.0 K/ul 09/17/2016 Lipid Ord30 CHOL 136 mg/dL 09/17/2016 Lipid Ord30 HDL 50.0 mg/dl 09/17/2016 Lipid Ord30 TRIG 70 mg/dL 09/17/2016 Lipid Ord30 LDL 72 mg/dL 09/17/2016 Lipid Ord30 C/HDL 2.7 Ratio 09/17/2016 Review of Systems System Result Effective Dates Constitutional No recent illness 01/30/2019 Constitutional No [...] clear 01/30/2019 None Full Exam - General 1995 Ears/Nose/Throat [...] sounds 11/05/2016 None Full Exam - General 1995 Musculoskeletal spine, ribs and pelvis Overall: spine [...] Procedure Codes Date THER/PROPH/DIAG INJ SC/IM CPT-4: 19278 01/02/2019 TRIAMCINOLONE ACET INJ NOS CPT-4: J3301 01/02/2019 TRIAMCINOLONE ACET INJ NOS CPT-4: J3301 10/12/2018 THER/PROPH/DIAG INJ SC/IM CPT-4: 37752 10/12/2018 PPPS, SUBSEQ VISIT CPT- 4: G0439 09/06/2018 URINALYSIS NONAUTO W/O SCOPE CPT-4: 12620 12/29/2017 PPPS, SUBSEQ VISIT CPT- 4: G0439 03/30/2017 THER/PROPH/DIAG INJ SC/IM CPT-4: 93049 03/16/2017 TRIAMCINOLONE ACET INJ NOS CPT-4: J3301 03/16/2017 THER/PROPH/DIAG INJ SC/IM CPT-4: 05278 03/12/2017 TRIAMCINOLONE ACET INJ NOS CPT-4: J3301 03/12/2017 THER/PROPH/DIAG INJ SC/IM CPT-4: 30952 11/05/2016 TRIAMCINOLONE ACET INJ NOS CPT-4: J3301 11/05/2016 URINALYSIS NONAUTO W/O SCOPE CPT-4: 72936 09/18/2016 Vital Signs Date Vital 01/30/2019 Blood Pressure 1: 160/70 Code: 8480-6 Heart Rate 1: 53 bpm Height: 5'7" SpO2: 96% 01/16/2019 Blood Pressure 1: 156/70 Code: 8480-6 BMI: 30.1 Code: 60592-6 Heart Rate 1: 50 bpm Height: 5'7" SpO2: 98% Weight: 192 lbs 10/12/2018 Blood Pressure 1: 142/76 Code: 8480-6 BMI: 30.1 Code: 07640-9 Heart Rate 1: 83 bpm Height: 5'7" SpO2: 98% Weight: 192 lbs 09/06/2018 Blood Pressure 1: 142/66 Code: 8480-6 BMI: 30.9 Code: 29482-4 Heart Rate 1: 64 bpm Height: 5'7" SpO2: 98% Waist Measure (cm): 99 cm Weight: 197 lbs 08/16/2018 Blood Pressure 1: 140/70 Code: 8480-6 BMI: 34.4 Code: 97567-1 Heart Rate 1: 63 bpm Height: 5'7" SpO2: 95% Weight: 219 lbs 14 oz 04/12/2018 Blood Pressure 1: 160/70 Code: 8480-6 BMI: 33.0 Code: 08306-8 Heart Rate 1: 82 bpm Height: 5'7" SpO2: 95% Weight: 211 lbs 01/20/2018 Blood Pressure 1: 152/66 Code: 8480-6 BMI: 31.8 Code: 11148-5 Heart Rate 1: 52 bpm Height: 5'7" SpO2: 98% Temperature: 36.3 (C) / 97.3 (F) Weight: 203 lbs 12/29/2017 Blood Pressure 1: 168/72 Code: 8480-6 BMI: 32.1 Code: 29191-1 Heart Rate 1: 63 bpm Height: 5'7" SpO2: 98% Weight: 205 lbs 08/24/2017 Blood Pressure 1: 186/70 Code: 8480-6 Blood Pressure 1: 150/70 Code: 8480-6 BMI: 31.8 Code: 16938-9 Heart Rate 1: 53 bpm Height: 5'7" SpO2: 98% Weight: 203 lbs 07/26/2017 Blood Pressure 1: 206/78 Code: 8480-6 Blood Pressure 2: 210/84 Code: 8480-6 BMI: 32.0 Code: 39276-6 Heart Rate 1: 49 bpm Height: 5'7" SpO2: 97% Weight: 204 lbs 07/20/2017 Blood Pressure 1: 148/82 Code: 8480-6 Heart Rate 1: 90 bpm SpO2: 98% 05/27/2017 Blood Pressure 1: 142/72 Code: 8480-6 BMI: 30.5 Code: 53238-8 Heart Rate 1: 97 bpm Height: 5'7" [...] 1: 148/70 Code: 8480-6 BMI: 30.4 Code: 03202-7 Heart Rate 1: 54 bpm Height: 5'7" SpO2: 97% Weight: 194 lbs 03/30/2017 BMI: 33.2 Code: 21233-8 Height: 5'7" Weight: 212 lbs 03/16/2017 Blood Pressure 1: 140/80 Code: 8480-6 BMI: 34.0 Code: 19913-0 Heart Rate 1: 70 bpm Height: 5'7" SpO2: 95% Weight: 217 lbs 03/12/2017 Blood Pressure 1: 142/80 Code: 8480-6 BMI: 34.0 Code: 83697-4 Heart Rate 1: 76 bpm Height: 5'7" SpO2: 92% Weight: 217 lbs 02/17/2017 Blood Pressure 1: 162/64 Code: 8480-6 BMI: 32.9 Code: 34272-1 Heart Rate 1: 59 bpm Height: 5'7" SpO2: 97% Weight: 210 lbs 01/20/2017 Blood Pressure 1: 162/74 Code: 8480-6 BMI: 32.9 Code: 01409-1 Heart Rate 1: 56 bpm Height: 5'7" SpO2: 98% Weight: 210 lbs 11/17/2016 Blood Pressure 1: 156/60 Code: 8480-6 BMI: 34.8 Code: 70560-4 Heart Rate 1: 63 bpm Height: 5'7" SpO2: 96% Weight: 222 lbs 11/05/2016 Blood Pressure 1: 160/68 Code: 8480-6 BMI: 34.5 Code: 32964-4 Heart Rate 1: 66 bpm Height: 5'7" SpO2: 97% Temperature: 36.9 (C) / 98.5 (F) Weight: 220 lbs 09/21/2016 Blood Pressure 1: 180/72 Code: 8480-6 Blood Pressure 1: 166/72 Code: 8480-6 BMI: 32.1 Code: 29045-7 Heart Rate 1: 57 bpm Height: 5'7" SpO2: 98% Weight: 205 lbs 09/16/2016 Blood Pressure 1: 168/70 Code: 8480-6 Heart Rate 1: 49 bpm SpO2: 95% 08/03/2016 Blood Pressure 1: 162/70 Code: 8480-6 BMI: 32.0 Code: 69616-1 Heart Rate 1: 43 bpm Height: 5'7" SpO2: 98% Weight: 204 lbs 07/06/2016 Blood Pressure 1: 170/86 Code: 8480-6 BMI: 32.0 Code: 65834-4 Heart Rate 1: 48 bpm Height: 5'7" SpO2: 97% Weight: 204 lbs Functional Status No Functional Status data History of Present Illness Symptom Name Status Result Effective Date Notes Location on the right 01/30/2019 None Onset [...] data Encounters Encounter Performer Location Codes Date ([id number]) [id number] EST. PATIENT, LEVEL III Diagnosis: Essential (primary) hypertension[ICD10: I10] Diagnosis: Lumbago with sciatica, right side[ICD10: M54.41] [facility] CPT-4: 17110 01/30/2019 ([id number]) 97776 EST. PATIENT, LEVEL III Diagnosis: Essential (primary) hypertension[ICD10: I10] Diagnosis: Other allergic rhinitis[ICD10: J30.89] Yuridia Camejo MD, [facility] CPT-4: 53251 01/16/2019 [id number] EST. PATIENT, LEVEL IV Diagnosis: Other acute sinusitis[ICD10: J01.80] Diagnosis: Other allergic rhinitis[ICD10: J30.89] Krysta Camejo MD, [facility] CPT- 4: 97954 10/12/2018 ([id number]) 70889 EST. PATIENT, LEVEL IV Diagnosis: Essential (primary) hypertension[ICD10: I10] Diagnosis: Type 2 diabetes mellitus without complications[ICD10: E11.9] Diagnosis: Mixed hyperlipidemia[ICD10: E78.2] Fifi Camejo MD, [facility] CPT- 4: 87951 08/16/2018 ([id number]) 79166 EST. PATIENT, LEVEL IV Diagnosis: Type 2 diabetes mellitus without complications[ICD10: E11.9] Diagnosis: Mixed hyperlipidemia[ICD10: E78.2] Diagnosis: Essential (primary) hypertension[ICD10: I10] Diagnosis: Dysuria[ICD10: R30.0] Diagnosis: Pain in left foot[ICD10: M79.672] Fifi Camejo MD, [facility] CPT- 4: 11550 04/12/2018 ([id number]) 51184 EST. PATIENT, LEVEL III Diagnosis: Otalgia, bilateral[ICD10: H92.03] Diagnosis: Other allergic rhinitis[ICD10: J30.89] Yuridia Camejo MD, [facility] CPT-4: 24393 01/20/2018 ([id number]) 27067 EST. PATIENT, LEVEL IV Diagnosis: Type 2 diabetes mellitus without complications[ICD10: E11.9] Diagnosis: Mixed hyperlipidemia[ICD10: E78.2] Diagnosis: Essential (primary) hypertension[ICD10: I10] Diagnosis: Dysuria[ICD10: R30.0] Fifi Camejo MD, [facility] CPT-4: 25358 12/29/2017 ([id number]) 85498 EST. PATIENT, LEVEL IV Diagnosis: Essential (primary) hypertension[ICD10: I10] Diagnosis: Cysts of left upper eyelid[ICD10: H02.824] Diagnosis: Pain in left foot[ICD10: M79.672] Fifi Camejo MD [facility] CPT- 4: 33900 08/24/2017 ([id number]) 47932 EST. PATIENT, LEVEL III Diagnosis: Essential (primary) hypertension[ICD10: I10] Fifi Camejo MD [facility] CPT-4: 60273 07/26/2017 ([id number]) Miscellaneous no charge Diagnosis: Essential (primary) hypertension[ICD10: I10] Fifi Camejo MD [facility] CPT-4: 54085 07/20/2017 67472 EST. PATIENT, LEVEL III Diagnosis: Otalgia, bilateral[ICD10: H92.03] Diagnosis: Dizziness and giddiness[ICD10: R42] Diagnosis: Mixed hyperlipidemia[ICD10: E78.2] Krysta Camejo MD [facility] CPT-4: 01621 05/27/2017 ([id number]) Miscellaneous no charge Diagnosis: Essential (primary) hypertension[ICD10: I10] Krysta Camejo MD [facility] CPT-4: 49262 05/07/2017 ([id number]) 43639 EST. PATIENT, LEVEL IV Diagnosis: Otalgia, bilateral[ICD10: H92.03] Diagnosis: Dizziness and giddiness[ICD10: R42] Diagnosis: Orthostatic hypotension[ICD10: I95.1] Fifi Camejo MD [facility] CPT-4: 27142 05/03/2017 10411 EST. PATIENT, LEVEL IV Diagnosis: Essential (primary) hypertension[ICD10: I10] Diagnosis: Type 2 diabetes mellitus without complications[ICD10: E11.9] Diagnosis: Gastro-esophageal reflux disease without esophagitis[ICD10: K21.9] Diagnosis: Dizziness and giddiness[ICD10: R42] Diagnosis: Dysuria[ICD10: R30.0] Diagnosis: Other malaise[ICD10: R53.81] Krysta Camejo MD [facility] CPT-4: 66237 04/15/2017 ([id number]) 24790 EST. PATIENT, LEVEL IV Diagnosis: Type 2 diabetes mellitus without complications[ICD10: E11.9] Diagnosis: Otalgia, bilateral[ICD10: H92.03] Diagnosis: Essential (primary) hypertension[ICD10: I10] Diagnosis: Other allergic rhinitis[ICD10: J30.89] Fifi Camejo MD, [facility] CPT-4: 44629 03/16/2017 13023 EST. PATIENT, LEVEL IV Diagnosis: Other acute sinusitis[ICD10: J01.80] Diagnosis: Acute suppurative otitis media without spontaneous rupture of ear drum, bilateral[ICD10: H66.003] Diagnosis: Other allergic rhinitis[ICD10: J30.89] Krysta Camejo MD, [facility] CPT- 4: 17669 03/12/2017 ([id number]) 74840 EST. PATIENT, LEVEL IV Diagnosis: Essential (primary) hypertension[ICD10: I10] Diagnosis: Type 2 diabetes mellitus without complications[ICD10: E11.9] Fifi Camejo MD, [facility] CPT-4: 15843 02/17/2017 ([id number]) 42399 EST. PATIENT, LEVEL IV Diagnosis: Essential (primary) hypertension[ICD10: I10] Diagnosis: Type 2 diabetes mellitus without complications[ICD10: E11.9] Fifi Camejo MD, [facility] CPT-4: 68320 01/20/2017 ([id number]) 93507 EST. PATIENT, LEVEL IV Diagnosis: Essential (primary) hypertension[ICD10: I10] Diagnosis: Type 2 diabetes mellitus without complications[ICD10: E11.9] Diagnosis: Gastro-esophageal reflux disease without esophagitis[ICD10: K21.9] Fifi Camejo MD, [facility] CPT-4: 52526 11/17/2016 ([id number]) 88066 EST. PATIENT, LEVEL III Diagnosis: Acute bronchitis due to other specified organisms[ICD10: J20.8] Diagnosis: Cough[ICD10: R05] Fifi Camejo MD, [facility] CPT-4: 60972 11/05/2016 ([id number]) 25713 EST. PATIENT, LEVEL IV Diagnosis: Essential (primary) hypertension[ICD10: I10] Diagnosis: Type 2 diabetes mellitus without complications[ICD10: E11.9] Fifi Camejo MD, [facility] CPT-4: 10343 09/21/2016 ([id number]) Miscellaneous no charge Diagnosis: Essential (primary) hypertension[ICD10: I10] [facility] CPT-4: 54022 09/16/2016 ([id number]) 77938 EST. PATIENT, LEVEL III Diagnosis: Type 2 diabetes mellitus without complications[ICD10: E11.9] Diagnosis: Essential (primary) hypertension[ICD10: I10] [facility] CPT-4: 80972 08/03/2016 ([id number]) OFFICE VISIT, NEW - LEVEL 4 Diagnosis: Essential (primary) hypertension[ICD10: I10] Diagnosis: Type 2 diabetes mellitus without complications[ICD10: E11.9] Diagnosis: Carpal tunnel syndrome, left upper limb[ICD10: G56.02] Diagnosis: Right upper quadrant pain[ICD10: R10.11] Diagnosis: Mixed hyperlipidemia[ICD10: E78.2] Fifi Camejo MD, [facility] CPT- 4: 70215 07/06/2016 Plan of Care Planned Activity Notes Codes Status Date Appointment: Fifi Camejo WPtel: [facility] [place] [facility] [place] [facility] (15 min) Moderate 02/06/2019 Visit Plan: Hypertension [...] they worsen. 01/30/2019 [facility]ment[phone] (30 min) Complex 01/30/2019 Patient Education: Patient [...] spray. 10/12/2018 Appointment: [phone] (30 min) [facility] 10/12/2018 Patient Education: Patient Medication Summary Completed [...] care surrogate. 09/06/2018 Appointment: Yuridia Walsh WPtel: [phone] [phone] [facility] - Annual Wellness Visit 09/06/2018 Patient Education: Patient Medication Summary Completed 09/06/2018 Appointment: Yuridia Walsh WPtel: [phone] [phone] [facility] [place] - Annual Wellness Visit 08/29/2018 Visit Plan: [...] me dications. 08/16/2018 Appointment: [phone] (15 min) Moderate 08/16/2018 Patient Education: Patient [...] the foot. 04/12/2018 Appointment: [phone] (15 min) Moderate 04/12/2018 Patient Education: Patient Medication Summary Completed 04/12/2018 Care Plan: Referral Order SNOMED-CT : [id number] Pending 04/12/2018 Patient Education: Patient Medication Summary [...] allergy spray. 01/20/2018 Appointment: [phone] (15 min) Moderate 01/20/2018 Patient Education: Patient [...] less controlled. 12/29/2017 Appointment: [phone] (15 min) Moderate 12/29/2017 Patient Education: Patient [...] - recommended referral to Dr. Chago davis [place] 08/24/2017 Appointment: [phone] (15 min) Moderate 08/24/2017 Patient Education: Patient Medication Summary Completed 08/24/2017 Care Plan: Referral Order SNOMED-CT : 730916901 Pending 08/24/2017 Visit Plan: Hypertension - uncontrolled [...] listed above. 07/26/2017 Appointment: Fifi Camejo WPtel: [phone] [facility] (15 min) Moderate 07/26/2017 Patient Education: Patient [...] to medications. 05/27/2017 Appointment: [phone] (15 min) Moderate 05/27/2017 Patient Education: Patient Medication Summary Completed 05/27/2017 Appointment: Nurse Visit 05/07/2017 Patient Education: Patient Medication Summary Completed 05/07/2017 Visit Plan: Persistent vergito with bilateral air-fluid levels and ear pain. Pt was seen by Dr. Calvo- she did not like his response to her complaints. I have recommended a referral to ENT in [place] or [place]. I suspect she may need myringotomy tubes. Pt to continue with flonase. Orthostatic hypotension - dc doxazosin. Monitor blood pressures at home. stop the doxazosin meclizine change to 1/2 pill three times a day come back on Wednesday for blood pressure check 05/03/2017 Appointment: Fifi Camejo WPtel: [phone] [facility] [place] (15 min) Moderate 05/03/2017 Patient Education: Patient Medication Summary Completed 05/03/2017 Appointment: [phone] [facility] (15 min) Moderate 04/21/2017 Visit Plan: Hypertension, [...] glucose control. 04/15/2017 Appointment: [phone] (30 min) [facility] 04/15/2017 Patient Education: Patient Medication Summary Completed [...] care surrogate. 03/30/2017 Appointment: [phone] [phone] [facility] [place] - Annual Wellness Visit 03/30/2017 Patient Education: [...] have a referral to dr. calvo [facility] sometime after March 24 Hypertension - well controlled - continue with current medications, continue with no added salt diet. Pt has been encouraged to exercise daily. The pt has been advised to call the office if there are any acute concerns about change in blood pressure readings at home. 03/16/2017 Appointment: Fifi Camejo WPtel: [phone] [facility] (30 min) Complex 03/16/2017 Patient Education: Patient Medication Summary Completed 03/16/2017 Patient Education: Obesity Completed 03/16/2017 Care Plan: Referral Order SNOMED-CT : [id number] Pending 03/16/2017 Visit Plan: Allergies - chronic [...] worsen. 03/12/2017 Appointment: [phone] (15 min) Moderate 03/12/2017 Patient Education: Patient [...] less controlled. 02/17/2017 Appointment: Fifi Camejo WPtel: [phone] [facility] (30 min) Complex 02/17/2017 Patient Education: Patient [...] less controlled. 01/20/2017 Appointment: [phone] ([facility] min) Complex 01/20/2017 Patient Education: Patient [...] dexilant 11/17/2016 Appointment: [phone] (30 min) Complex 11/17/2016 Patient Education: Patient [...] 90-110 range. 09/21/2016 Appointment: [facility]jo [phone] [phone] (15 min) Moderate 09/21/2016 Patient Education: Patient [...] time. 08/03/2016 Appointment: [facility]jo [phone] [phone] (15 min) Moderate 08/03/2016 Patient Education: Patient [...] not improving. 07/06/2016 Appointment: Fifi Camejo WPtel: [facility] [place] [facility] [place] [facility] [facility] 07/06/2016 Patient Education: Patient Medication [...] monitor your heart rate Consider referral for safety scientist for possible stress test if needed. Call [...] monitor your heart rate Consider referral for safety scientist for possible stress test if needed. Call [...] a referral to ENT in [facility]. I suspect she may need myringotomy tubes. Pt to continue with flonase. Orthostatic hypotension - dc doxazosin. Monitor blood pressures at home. stop the doxazosin meclizine change to 1/2 pill three times a day come back on Wednesday for blood pressure check . Hypertension - uncontrolled today in the [...] - recommended referral to Dr. Anders in [place]
--- OUTSIDE RECORDS SUMMARY | 2019-03-08 15:46 | XMS REPORT | CCD ---
Author Author Fifi Camejo MD, [facility] Address [address] [place] [address] Phone Care Team Providers Care Microbiology Soil Scientist Name Role Phone PP Unavailable CCM Unavailable Summary Purpose Interface Exchange Insurance Providers Payer name Policy type / Coverage type Covered green party ID Effective Begin Date Effective End Date WPS Medicare Part B Medicare Part B [id number] Unknown Unknown FOR LIFE WPS Medicare Part B [id number] Unknown Unknown Family history Father Diagnosis Age At Onset Cancer Unknown Brother Diagnosis Age At Onset Diabetes mellitus Type 2 Unknown Heart Attack Unknown Social History Social History Element Codes Description Effective Dates Marital status Unknown Wu 11/05/2016 Number of children Unknown 1 07/06/2016 Employment Unknown Retired 07/06/[address]: 884577254 Never smoker 07/06/[address]: 175383922 Never drinks alcohol 07/06/2016 Allergies, Adverse Reactions, Alerts Substance Reaction Codes Entered Date Inactivated Date Status 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 Unknown 01/20/2017 No Inactive Date Active Past Medical History Illness Codes Condition Status Onset Date Resolved Date Type 2 diabetes mellitus without complications ICD-9: 250.00 ICD-10: E11.9 Active 09/20/2016 Unknown Encounter for general adult medical examination with abnormal findings ICD-9: V70.0 ICD-10: Z00.01 Active 03/30/2017 Unknown Essential (primary) hypertension ICD-9: 401.1 ICD-10: I10 Active 09/20/2016 Unknown Otalgia, bilateral ICD- 9: 388.70 ICD-10: H92.03 Active 03/16/2017 Unknown Other allergic rhinitis ICD-9: 477.8 ICD-10: J30.89 Active 03/12/2017 Unknown Acute suppurative otitis media without spontaneous rupture of ear drum, bilateral ICD-9: 381.00 ICD-10: H66.003 Active 03/12/2017 Unknown Other acute sinusitis ICD- 9: 461.8 ICD-10: J01.80 Active 03/12/2017 Unknown Gastro-esophageal reflux disease without esophagitis ICD-9: 530.81 ICD-10: K21.9 Active 11/17/2016 Unknown Diabetes Unknown Active 01/20/2017 Unknown Acute bronchitis due to other specified organisms ICD-9: 466.0 ICD-10: J20.8 Active 11/05/2016 Unknown Cough ICD-9: 786.2 ICD-10: R05 Active 11/05/2016 Unknown Dysuria ICD-9: 788.1 ICD-10: R30.0 Active 09/17/2016 Unknown Carpal tunnel syndrome, left upper limb ICD-9: 354.0 ICD-10: G56.02 Active 07/05/2016 Unknown Mixed hyperlipidemia ICD- 9: 272.2 ICD-10: E78.2 Active 07/05/2016 Unknown Right upper quadrant pain ICD-9: 789.01 ICD-10: R10.11 Active 07/05/2016 Unknown Problems Condition Codes Effective Dates Condition Status Type 2 diabetes mellitus without complications ICD-9: 250.00 ICD-10: E11.9 09/20/2016 Active Encounter for general adult medical examination with abnormal findings ICD-9: V70.0 ICD-10: Z00.01 03/30/2017 Active Essential (primary) hypertension ICD-9: 401.1 ICD-10: I10 09/20/2016 Active Otalgia, bilateral ICD- 9: 388.70 ICD-10: H92.03 03/16/2017 Active Other allergic rhinitis ICD-9: 477.8 ICD-10: J30.89 03/12/2017 Active Acute suppurative otitis media without spontaneous rupture of ear drum, bilateral ICD-9: 381.00 ICD-10: H66.003 03/12/2017 Active Other acute sinusitis ICD- 9: 461.8 ICD-10: J01.80 03/12/2017 Active Gastro-esophageal reflux disease without esophagitis ICD-9: 530.81 ICD-10: K21.9 11/17/2016 Active Diabetes Unknown 01/20/2017 Active Acute bronchitis due to other specified organisms ICD-9: 466.0 ICD-10: J20.8 11/05/2016 Active Cough ICD-9: 786.2 ICD-10: R05 11/05/2016 Active Dysuria ICD-9: 788.1 ICD-10: R30.0 09/17/2016 Active Carpal tunnel syndrome, left upper limb ICD-9: 354.0 ICD-10: G56.02 07/05/2016 Active Mixed hyperlipidemia ICD- 9: 272.2 ICD-10: E78.2 07/05/2016 Active Right upper quadrant pain ICD-9: 789.01 ICD-10: R10.11 07/05/2016 Active Medications Medication Codes Instructions Start Date Stop Date Status Fill Instructions Cipro 500 mg tablet RxNorm: 553162 1 Tablet(s) PO BID 04/16/2017 04/22/2017 Active Zofran 4 mg tablet RxNorm: 835768 1 Tablet(s) PO BID as needed nausea and vomitting 04/15/2017 04/19/2017 Active Lipitor 10 mg tablet RxNorm: 686734 1 Tablet(s) PO QPM 03/30/2017 06/27/2017 Active OKAY TO DISPENSE GENERIC doxazosin 4 mg tablet RxNorm: 848689 1.5 Tablet(s) PO BID 03/16/2017 03/10/2018 Active prednisone 10 mg tablets in a dose pack RxNorm: 457212 Tablet(s) take dose pack as directed PO take with food 03/16/2017 No Stop Date Active Kenalog 40 mg/mL suspension for injection RxNorm: 7863910 1 Milliliter(s) Inj 03/16/2017 03/16/2017 Inactive Kenalog 40 mg/mL suspension for injection RxNorm: 8520690 Milliliter(s) Inj 03/12/2017 03/12/2017 Inactive Zithromax Z-Juan 250 mg tablet RxNorm: 470546 1 Tablet(s) PO daily 03/11/2017 03/10/2017 Inactive zpack as directed Zithromax Z-Juan 250 mg tablet RxNorm: 524356 1 Tablet(s) PO daily 03/11/2017 03/15/2017 Inactive zpack as directed doxazosin 4 mg tablet RxNorm: 828478 1.5 Tablet(s) PO BID 02/12/2017 03/15/2017 Inactive fluticasone 50 mcg/actuation nasal spray,suspension RxNorm: 5731095 1 SPRAY NASAL BID 02/05/2017 No Stop Date Active metoprolol tartrate 75 mg tablet RxNorm: 3128309 1 Tablet(s) PO BID 01/29/2017 01/23/2018 Active metoprolol tartrate 75 mg tablet RxNorm: 8197968 1 Tablet(s) PO BID 01/29/2017 01/28/2017 Inactive doxazosin 4 mg tablet RxNorm: 576853 1 Tablet(s) PO BID 01/20/2017 02/11/2017 Inactive pantoprazole 40 mg tablet,delayed release RxNorm: 685551 1 Tablet(s) PO daily 12/24/2016 01/19/2017 Inactive pantoprazole 40 mg tablet,delayed release RxNorm: 645163 1 Tablet(s) PO daily 12/24/2016 12/23/2016 Inactive alprazolam 0.5 mg tablet RxNorm: 413284 1 Tablet(s) PO TID as needed anxiety 12/03/2016 04/01/2017 Inactive fluticasone 50 mcg/actuation nasal spray,suspension RxNorm: 1244617 1 [place] NASAL BID 11/25/2016 12/24/2016 Inactive Dexilant 60 mg capsule, delayed release RxNorm: 395113 1 Capsule(s) PO daily 11/25/2016 11/24/2016 Inactive fluticasone 50 mcg/actuation nasal spray,suspension RxNorm: 9248152 1 [place] NASAL BID 11/25/2016 11/24/2016 Inactive fluticasone 50 mcg/actuation nasal spray,suspension RxNorm: 0697816 1 [place] NASAL BID 11/25/2016 11/24/2016 Inactive Dexilant 60 mg capsule, delayed release RxNorm: 068348 1 Capsule(s) PO daily 11/25/2016 12/23/2016 Inactive ProAir RespiClick 90 mcg/actuation breath activated RxNorm: 2461215 1 INH bid and QID as needed 11/19/2016 05/17/2017 Active Please send STAT glimepiride 4 mg tablet RxNorm: 658189 1 Tablet(s) PO daily 11/19/2016 11/13/2017 Active Flonase Allergy Relief 50 mcg/actuation nasal spray,suspension RxNorm: 0048049 1 [place] NASAL BID 11/19/2016 11/24/2016 Inactive metoprolol tartrate 50 mg tablet RxNorm: 274977 1 Tablet(s) PO BID 11/19/2016 01/28/2017 Inactive Flonase Allergy Relief 50 mcg/actuation nasal spray,suspension RxNorm: 0944029 1 [place] NASAL BID 11/17/2016 11/18/2016 Inactive metoprolol tartrate 50 mg tablet RxNorm: 880927 1 Tablet(s) PO BID 11/17/2016 11/18/2016 Inactive ProAir RespiClick 90 mcg/actuation breath activated RxNorm: 5677053 1 INH bid and QID as needed 11/17/2016 11/16/2016 Inactive glimepiride 4 mg tablet RxNorm: 172389 1 Tablet(s) PO daily 11/17/2016 11/18/2016 Inactive ProAir RespiClick 90 mcg/actuation breath activated RxNorm: 9031246 1 INH bid and QID as needed 11/17/2016 11/18/2016 Inactive Please send STAT Kenalog 40 mg/mL suspension for injection RxNorm: 2877845 1 Milliliter(s) Inj 11/05/2016 11/05/2016 Inactive azithromycin 250 mg tablet RxNorm: 133878 Tablet(s) PO 2 tabs on day #1, then daily x 4 days 11/05/2016 12/23/2016 Inactive doxazosin 4 mg tablet RxNorm: 688615 1 Tablet(s) PO QPM 10/02/2016 01/19/2017 Inactive doxazosin 4 mg tablet RxNorm: 467245 1 Tablet(s) PO QPM 09/29/2016 10/01/2016 Inactive doxazosin 4 mg tablet RxNorm: 447492 1 Tablet(s) PO QPM 09/21/2016 09/28/2016 Inactive Cipro 500 mg tablet RxNorm: 647318 1 Tablet(s) PO BID 09/18/2016 09/17/2016 Inactive Cipro 500 mg tablet RxNorm: 952318 1 Tablet(s) PO BID 09/18/2016 09/24/2016 Inactive losartan 100 mg tablet RxNorm: 290686 1 Tablet(s) PO daily for high blood pressure 09/16/2016 09/10/2017 Active losartan 100 mg tablet RxNorm: 566275 1 Tablet(s) PO daily for high blood pressure 09/16/2016 09/15/2016 Inactive alprazolam 0.5 mg tablet RxNorm: 161279 1 Tablet(s) PO TID as needed anxiety 09/16/2016 11/14/2016 Inactive amlodipine 10 mg tablet RxNorm: 543801 1 Tablet(s) PO daily 08/03/2016 07/28/2017 Active Zyrtec 10 mg tablet RxNorm: 1574207 1 Tablet(s) PO daily 08/03/2016 09/15/2016 Inactive losartan 25 mg tablet RxNorm: 678896 1 Tablet(s) PO daily 07/08/2016 09/15/2016 Inactive Lipitor 10 mg tablet RxNorm: 944145 1 Tablet(s) PO QPM 07/08/2016 07/17/2016 Inactive OKAY TO DISPENSE GENERIC Lipitor 10 mg tablet RxNorm: 176514 1 Tablet(s) PO QPM 07/06/2016 07/07/2016 Inactive OKAY TO DISPENSE GENERIC losartan 25 mg tablet RxNorm: 213855 1 Tablet(s) PO daily 07/06/2016 07/07/2016 Inactive Parafon Forte DSC 500 mg tablet RxNorm: 292326 1 Tablet(s) PO QID No Start Date Active glimepiride 4 mg tablet RxNorm: 105968 1 Tablet(s) PO daily No Start Date 11/16/2016 Inactive naproxen 500 mg tablet RxNorm: 579772 1 Tablet(s) PO BID No Start Date 03/23/2017 Inactive amlodipine 5 mg tablet RxNorm: 988225 1 Tablet(s) PO daily No Start Date 08/02/2016 Inactive metoprolol tartrate 50 mg tablet RxNorm: 979367 1 Tablet(s) PO BID No Start Date 11/16/2016 Inactive Medication Administered Medication Codes Instructions Start Date Status Kenalog 40 mg/mL suspension for injection RxNorm: 7490358 1Milliliter 03/16/2017 No longer Active Kenalog 40 mg/mL suspension for injection RxNorm: 8752370 Milliliter 03/12/2017 No longer Active Kenalog 40 mg/mL suspension for injection RxNorm: 3804901 1Milliliter 11/05/2016 No longer Active Immunizations No Immunization data Assessments Condition Codes Effective Dates Encounter for general adult medical examination with abnormal findings ICD-10: Z00.01 ICD-9: V70.0 03/30/2017 Essential (primary) hypertension ICD-10: I10 ICD-9: 401.1 03/16/2017 Otalgia, bilateral ICD-10: H92.03 ICD-9: 388.70 03/16/2017 Type 2 diabetes mellitus without complications ICD-10: E11.9 ICD-9: 250.00 03/16/2017 Other allergic rhinitis ICD-10: J30.89 ICD-9: 477.8 03/16/2017 Acute suppurative otitis media without spontaneous rupture of ear drum, bilateral ICD-10: H66.003 ICD-9: 381.00 03/12/2017 Other acute sinusitis ICD-10: J01.80 ICD-9: 461.8 03/12/2017 Gastro-esophageal reflux disease without esophagitis ICD-10: K21.9 ICD-9: 530.81 11/17/2016 Acute bronchitis due to other specified organisms ICD-10: J20.8 ICD-9: 466.0 11/05/2016 Cough ICD-10: R05 ICD-9: 786.2 11/05/2016 Dysuria ICD-10: R30.0 ICD-9: 788.1 09/18/2016 Mixed hyperlipidemia ICD-10: E78.2 ICD-9: 272.2 07/06/2016 Right upper quadrant pain ICD-10: R10.11 ICD-9: 789.01 07/06/2016 Carpal tunnel syndrome, left upper limb ICD-10: G56.02 ICD-9: 354.0 07/06/2016 Reason For Visit Reason For Visit Effective Dates Notes Annual Medicare Wellness Exam 03/30/2017 earache 03/16/2017 sinus congestion 03/12/2017 hypertension 02/17/2017 hypertension 01/20/2017 cough 11/17/2016 cough 11/05/2016 hypertension 09/21/2016 hypertension 08/03/2016 hypertension 07/06/2016 Results Observation Observation Code Item Item Code Result Date %Hba1C Hjc408 % HbA1c 27629- 6 5.8 % 01/07/2017 %Hba1C Wlt384 Gluc Ave 120 mg/dL 01/07/2017 Urine Culture Ucult Preliminary NO Growth Day 1 09/21/2016 Urine Culture Ucult Complete NO Growth Day 2 09/21/2016 %Hba1C Xgd652 % HbA1c 32355- 6 6.0 % 09/17/2016 %Hba1C Kun765 Gluc Ave 126 mg/dL 09/17/2016 Comp Metabolic Wla625 NA 140 mEq/L 09/17/2016 Comp Metabolic Frs599 K 4.1 mEq/L 09/17/2016 Comp Metabolic Juu115 CL 105 mEq/L 09/17/2016 Comp Metabolic Uls606 CO2 29.0 mEq/L 09/17/2016 Comp Metabolic Uof134 ANION GAP 10 09/17/2016 Comp Metabolic Fac880 GLUCOSE 89 mg/dL 09/17/2016 Comp Metabolic Gem679 Creat 0.9 mg/dL 09/17/2016 Comp Metabolic Ahw886 eGFR 65 ml/min/1.73m2 09/17/2016 Comp Metabolic Ogk293 BUN 20 mg/dL 09/17/2016 Comp Metabolic Str923 B/C Ratio 22.2 Ratio 09/17/2016 Comp Metabolic Teo624 CALCIUM 9.3 mg/dL 09/17/2016 Comp Metabolic Rcp576 ALK PHOS 107 U/L 09/17/2016 Comp Metabolic Bzq322 AST(SGOT) 22 U/L 09/17/2016 Comp Metabolic Oih064 ALT(SGPT) 15 U/L 09/17/2016 Comp Metabolic Nbe274 BILI T 0.7 mg/dL 09/17/2016 Comp Metabolic Lch470 ALBUMIN 4.0 g/dL 09/17/2016 Comp Metabolic Moc608 TPRO 6.8 g/dL 09/17/2016 Comp Metabolic Upw037 GLOB 2.8 g/dL 09/17/2016 Comp Metabolic Vwl256 A/G Ratio 1.4 Ratio 09/17/2016 Comp Metabolic Vrh214 Osmo 281 mOsmo 09/17/2016 Microalbumin Xuf459 MicroAlb 44.3 mg/dL 09/17/2016 Tsh Ord6 hTSH [...] 29.0 pg 09/17/2016 Cbc With Differential Ord2 [place]% 8.1 % 09/17/2016 Cbc With Differential Ord2 MCHC 33.3 pg 09/17/2016 Cbc With Differential Ord2 Eos% 3.5 % 09/17/2016 Cbc With Differential Ord2 PLT 242 K/ul 09/17/2016 Cbc With Differential Ord2 Baso% 0.4 % 09/17/2016 Cbc With Differential Ord2 Neut ABS# 4.34 K/ul 09/17/2016 Cbc With Differential Ord2 RDW 13.4 % 09/17/2016 Cbc With Differential Ord2 Lymph ABS# 1.78 K/ul 09/17/2016 Cbc With Differential Ord2 [place] ABS# 0.6 K/ul 09/17/2016 Cbc With Differential Ord2 Eos ABS# 0.2 K/ul 09/17/2016 Cbc With Differential Ord2 Baso ABS# 0.0 K/ul 09/17/2016 Lipid Ord30 CHOL 136 mg/dL 09/17/2016 Lipid Ord30 HDL 50.0 mg/dl 09/17/2016 Lipid Ord30 TRIG 70 mg/dL 09/17/2016 Lipid Ord30 LDL 72 mg/dL 09/17/2016 Lipid Ord30 C/HDL 2.7 Ratio 09/17/2016 Review of Systems System Result Effective Dates Constitutional recent illness 03/30/2017 Constitutional No chills [...] palpation 07/06/2016 None Procedures Procedure Codes Date PPPS, SUBSEQ VISIT CPT-4: E5685Tzafjyw 03/30/2017 THER/PROPH/DIAG INJ SC/IM CPT-4: 13518Wiqgeeb 03/16/2017 TRIAMCINOLONE ACET INJ NOS CPT-4: I4319Sstioah 03/16/2017 THER/PROPH/DIAG INJ SC/IM CPT-4: 36825Rrzvite 03/12/2017 TRIAMCINOLONE ACET INJ NOS CPT-4: C4607Ehvzyyk 03/12/2017 THER/PROPH/DIAG INJ SC/IM CPT-4: 66470Pefmoka 11/05/2016 TRIAMCINOLONE ACET INJ NOS CPT-4: R8551Dpwarrn 11/05/2016 URINALYSIS NONAUTO W/O SCOPE CPT-4: 99480Ektukgy 09/18/2016 Vital Signs Date Vital 03/30/2017 BMI: 33.2 Code: 62141-8 Height: 5'7" Weight: 212 lbs 03/16/2017 Blood Pressure 1: 140/80 Code: 8480-6 BMI: 34.0 Code: 81007-0 Heart Rate 1: 70 bpm Height: 5'7" SpO2: 95% Weight: 217 lbs 03/12/2017 Blood Pressure 1: 142/80 Code: 8480-6 BMI: 34.0 Code: 77486-7 Heart Rate 1: 76 bpm Height: 5'7" SpO2: 92% Weight: 217 lbs 02/17/2017 Blood Pressure 1: 162/64 Code: 8480-6 BMI: 32.9 Code: 91872-7 Heart Rate 1: 59 bpm Height: 5'7" SpO2: 97% Weight: 210 lbs 01/20/2017 Blood Pressure 1: 162/74 Code: 8480-6 BMI: 32.9 Code: 71723-8 Heart Rate 1: 56 bpm Height: 5'7" SpO2: 98% Weight: 210 lbs 11/17/2016 Blood Pressure 1: 156/60 Code: 8480-6 BMI: 34.8 Code: 09835-0 Heart Rate 1: 63 bpm Height: 5'7" SpO2: 96% Weight: 222 lbs 11/05/2016 Blood Pressure 1: 160/68 Code: 8480-6 BMI: 34.5 Code: 88818-1 Heart Rate 1: 66 bpm Height: 5'7" SpO2: 97% Temperature: 36.9 (C) / 98.5 (F) Weight: 220 lbs 09/21/2016 Blood Pressure 1: 180/72 Code: 8480-6 Blood Pressure 1: 166/72 Code: 8480-6 BMI: 32.1 Code: 78377-5 Heart Rate 1: 57 bpm Height: 5'7" SpO2: 98% Weight: 205 lbs 09/16/2016 Blood Pressure 1: 168/70 Code: 8480-6 Heart Rate 1: 49 bpm SpO2: 95% 08/03/2016 Blood Pressure 1: 162/70 Code: 8480-6 BMI: 32.0 Code: 64309-9 Heart Rate 1: 43 bpm Height: 5'7" SpO2: 98% Weight: 204 lbs 07/06/2016 Blood Pressure 1: 170/86 Code: 8480-6 BMI: 32.0 Code: 23292-7 Heart Rate 1: 48 bpm Height: 5'7" SpO2: 97% Weight: 204 lbs Functional Status No Functional Status data History of Present Illness Symptom Name Status Result Effective Date Notes Annual Medicare Wellness Exam Alcohol Use does [...] data Encounters Encounter Performer Location Codes Date ([id number]) 94535 EST. PATIENT, LEVEL IV Diagnosis: Type 2 diabetes mellitus without complications[ICD10: E11.9] Diagnosis: Otalgia, bilateral[ICD10: H92.03] Diagnosis: Essential (primary) hypertension[ICD10: I10] Diagnosis: Other allergic rhinitis[ICD10: J30.89] Fifi Camejo MD, [facility] CPT-4: 47898 03/16/2017 15304 EST. PATIENT, LEVEL IV Diagnosis: Other acute sinusitis[ICD10: J01.80] Diagnosis: Acute suppurative otitis media without spontaneous rupture of ear drum, bilateral[ICD10: H66.003] Diagnosis: Other allergic rhinitis[ICD10: J30.89] Krysta Camejo MD, [facility] CPT- 4: 90475 03/12/2017 ([id number]) 45931 EST. PATIENT, LEVEL IV Diagnosis: Essential (primary) hypertension[ICD10: I10] Diagnosis: Type 2 diabetes mellitus without complications[ICD10: E11.9] Fifi Camejo MD, [facility] CPT-4: 80910 02/17/2017 ([id number]) 45702 EST. PATIENT, LEVEL IV Diagnosis: Essential (primary) hypertension[ICD10: I10] Diagnosis: Type 2 diabetes mellitus without complications[ICD10: E11.9] Fifi Camejo MD, [facility] CPT-4: 78899 01/20/2017 ([id number]) 16935 EST. PATIENT, LEVEL IV Diagnosis: Essential (primary) hypertension[ICD10: I10] Diagnosis: Type 2 diabetes mellitus without complications[ICD10: E11.9] Diagnosis: Gastro-esophageal reflux disease without esophagitis[ICD10: K21.9] Fifi Camejo MD, [facility] CPT-4: 45830 11/17/2016 ([id number]) 72813 EST. PATIENT, LEVEL III Diagnosis: Acute bronchitis due to other specified organisms[ICD10: J20.8] Diagnosis: Cough[ICD10: R05] [facility] CPT-4: 38861 11/05/2016 ([id number]) 17377 EST. PATIENT, LEVEL IV Diagnosis: Essential (primary) hypertension[ICD10: I10] Diagnosis: Type 2 diabetes mellitus without complications[ICD10: E11.9] [facility] CPT-4: 64086 09/21/2016 ([id number]) Miscellaneous no charge Diagnosis: Essential (primary) hypertension[ICD10: I10] Fifi Camejo MD, [facility] CPT-4: 67955 09/16/2016 ([id number] 48327 EST. PATIENT, LEVEL III Diagnosis: Type 2 diabetes mellitus without complications[ICD10: E11.9] Diagnosis: Essential (primary) hypertension[ICD10: I10] [facility] CPT-4: 52589 08/03/2016 ([id number]) OFFICE VISIT, NEW - LEVEL 4 Diagnosis: Essential (primary) hypertension[ICD10: I10] Diagnosis: Type 2 diabetes mellitus without complications[ICD10: E11.9] Diagnosis: Carpal tunnel syndrome, left upper limb[ICD10: G56.02] Diagnosis: Right upper quadrant pain[ICD10: R10.11] Diagnosis: Mixed hyperlipidemia[ICD10: E78.2] Fifi Camejo MD, [facility] CPT- 4: 37355 07/06/2016 Plan of Care Planned Activity Notes Codes Status Date Appointment: Krysta Dale WPtel: [address] [place], [place] [phone] (30 min) [facility] 04/15/2017 Referral: Dr Calvo Patient informed. Referral [...] risk and to maintain independence in the home.Today we discussed the need for the patient to create paperwork for Advanced directives as well as for the patient to provide this office with a copy of her DOPA paperwork for health care surrogate. 03/30/2017 Appointment: Chito [facility]rysta [facility]el[facility] [phone] [facility] [facility] - Annual Wellness Visit 03/30/2017 Patient Education: [...] acute concerns, complaints, or if the blood glucos e readings are starting to become less controlled.Otalgia - dizziness - Air fluid level in both ears - persistent for several months despite treatment - I have recommended pt to have a [facility] March 24Hypertension - well controlled - continue with current medications, continue with no added salt diet. Pt has been encouraged to exercise daily.The pt has been advised to call the office if there are any acute concerns about change in blood pressure readings at home. 03/16/2017 Appointment: [facility] [phone] [facility] (30 min) Complex 03/16/2017 Patient Education: Patient Medication Summary Completed 03/16/2017 Patient Education: Obesity Completed 03/16/2017 Care Plan: Referral Order SNOMED-CT : [id number] Pending 03/16/2017 Visit Plan: Allergies - chronic - recommended pt to use allergy medication as prescribed. Pt has been counseled as to the appropriate use of the medication. Pt to call if allergy symptoms are not controlled with the medication.If using nasal spray, instructions as follows: Nasal spray- use twice daily, one spray per nostril twice daily, after 30 minutes, rinse out nose with saline spray.. Use opposite hand per nostril to spray in the nasal steroid allergy spray.Sinusitis - Pt has acute infection - pain in face, maxillary region, Pt informed to use decongestant, RX given to patient, sinus rinses also recommended. Call if symptoms do not show improvement.Otitis Media - discussed the diagnosis with the patient, script sent electronically to the pharmacy for treatment of the infection. The disease course was discussed and the need to notify the clinic if symptoms do not improve or if they acutely worsen. 03/12/2017 Appointment: [facility]rysta Dale [facility]el[facility] [phone] [facility] (15 min) Moderate 03/12/2017 Patient Education: Patient [...] the office next week for practitioner to review.The pt is to call for acute concerns.Medication increased 5 days agoDiabetes Mellitus - controlled - per recent FSBS [...] controlled. 02/17/2017 Appointment: [facility] [phone] [facility] (30 min) Complex 02/17/2017 Patient [...] the office next week for practitioner to review.The pt is to call for acute concerns.Diabetes Mellitus - controlled - per recent FSBS [...] controlled. 01/20/2017 Appointment: Fifi Camejo WPtel: [phone] [email or web address] (30 min) Complex 01/20/2017 Patient Education: Patient Medication Summary Completed 01/20/2017 Patient Education: Obesity Completed 01/20/2017 Patient Education: Patient Medication Summary Completed 12/30/2016 Visit Plan: Hypertension - well controlled - continue with current medications, continue with no added salt diet. Pt has been encouraged to exercise daily.The pt has been advised to call the office if there are any acute concerns about change in blood pressure readings at home.Diabetes Mellitus - controlled - per recent FSBS [...] glucose readings are starting to become less controlled.GERD - gave sample of dexilant 11/17/2016 Appointment: Fifi Camejo WPtel: [phone] [facility] (30 min) Complex 11/17/2016 Patient Education: Patient [...] the office next week for practitioner to review.The pt is to call for acute concerns.add on doxazosin 4mg at hs - monitor pressures.DM- improved control - FSBS report shows levels averaging in the 90- 110 range. 09/21/2016 Appointment: [facility] Camejo [facility]el[facility] [phone] [facility] (15 min) Moderate 09/21/2016 Patient [...] the office next week for practitioner to review.The pt is to call for acute concerns.DM - FSBS show stability - no change in plan at this time. 08/03/2016 Appointment: Fifi Camejo [facility]Ptel[facility] [phone] [facility] (15 min) Moderate 08/03/2016 Patient Education: Patient Medication Summary Completed 08/03/2016 Patient Education: Obesity Completed 08/03/2016 Visit Plan: Hypertension - well controlled - continue with current medications, continue with no added salt diet. Pt has been encouraged to exercise daily.The pt has been advised to call the office if there are any acute concerns about change in blood pressure readings at home.Diabetes Mellitus - controlled - per recent FSBS [...] glucose readings are starting to become less controlled.Hyperlipidemia - pt has been counseled about appropriate [...] and to assure normal liver response to medications.Carpal tunnel syndrome - recommended pt to use wrist braces at night, call if not improving. 07/06/2016 Appointment: Fifi Camejo WPtel: [facility] New Patient 07/06/2016 Patient Education: Patient Medication Summary Completed 07/06/2016 Patient Education: Obesity Completed 07/06/2016 Referral: Dr Calvo Referral Appointment Requested Instructions Comment take the [...] readings are starting to become less controlled. Nasal spray- use twice daily, one spray [...] change in plan at this time. . Diabetes Mellitus - controlled - per [...] change in blood pressure readings at home. . Hypertension - uncontrolled - the patient's [...] readings are starting to become less controlled. corcidin hbp (for decongestion) get vitamin c take 500mg twice daily . Bronchitis - acute case of bronchitis identified. Pt has been given antibiotics, breathing treatments as appropriate, and pt has been instructed to call if symptoms are not improved, or if symptoms acutely worsen. Decrease doxazosin to 1 pill - write [...] her DOPA paperwork for health care surrogate. Kenalog shot today. Flonase nasal spray twice [...] not improve or if they acutely worsen. . Hypertension - well controlled - continue [...]
--- OUTSIDE RECORDS SUMMARY | 2019-03-08 15:47 | XMS REPORT | CCD ---
Author Author Fifi Camejo MD, [facility] Address [address] [place] [address] Phone Care Team Providers Care Certified Pathology Assistant Name Role Phone PP Unavailable CCM Unavailable Summary Purpose Interface Exchange Insurance Providers Payer name Policy type / Coverage type Covered constitution party ID Effective Begin Date Effective End Date WPS Medicare Part B Medicare Part B [id number] Unknown Unknown FOR LIFE WPS Medicare Part B [id number] Unknown Unknown Family history Father Diagnosis Age At Onset Cancer Unknown Brother Diagnosis Age At Onset Diabetes mellitus Type 2 Unknown Heart Attack Unknown Social History Social History Element Codes Description Effective Dates Marital status Unknown Wu 11/05/2016 Number of children Unknown 1 07/06/2016 Employment Unknown Retired 07/06/[address]: 100834016 Never smoker 07/06/[address]: 323581719 Never drinks alcohol 07/06/2016 Allergies, Adverse Reactions, Alerts Substance Reaction Codes Entered Date Inactivated Date Status 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 Unknown 01/20/2017 No Inactive Date Active Past Medical History Illness Codes Condition Status Onset Date Resolved Date Encounter for general adult medical examination with abnormal findings ICD-9: V70.0 ICD-10: Z00.01 Active 03/30/2017 Unknown Essential (primary) hypertension ICD-9: 401.1 ICD-10: I10 Active 09/20/2016 Unknown Otalgia, bilateral ICD- 9: 388.70 ICD-10: H92.03 Active 03/16/2017 Unknown Other allergic rhinitis ICD-9: 477.8 ICD-10: J30.89 Active 03/12/2017 Unknown Type 2 diabetes mellitus without complications ICD-9: 250.00 ICD-10: E11.9 Active 09/20/2016 Unknown Acute suppurative otitis media without spontaneous [...] Problems Condition Codes Effective Dates Condition Status Encounter for general adult medical examination with abnormal findings ICD-9: V70.0 ICD-10: Z00.01 03/30/2017 Active Essential (primary) hypertension ICD-9: 401.1 ICD-10: I10 09/20/2016 Active Otalgia, bilateral ICD- 9: 388.70 ICD-10: H92.03 03/16/2017 Active Other allergic rhinitis ICD-9: 477.8 ICD-10: J30.89 03/12/2017 Active Type 2 diabetes mellitus without complications ICD-9: 250.00 ICD-10: E11.9 09/20/2016 Active Acute suppurative otitis media without spontaneous [...] Start Date Stop Date Status Fill Instructions Lipitor 10 mg tablet RxNorm: 795489 1 Tablet(s) PO QPM 03/30/2017 06/27/2017 Active OKAY TO DISPENSE GENERIC doxazosin 4 mg tablet RxNorm: 481925 1.5 Tablet(s) PO BID 03/16/2017 03/10/2018 Active prednisone 10 mg tablets in a dose pack RxNorm: 954469 Tablet(s) take dose pack as directed PO take with food 03/16/2017 No Stop Date Active Kenalog 40 mg/mL suspension for injection RxNorm: 9169071 1 Milliliter(s) Inj 03/16/2017 03/16/2017 Inactive Kenalog 40 mg/mL suspension for injection RxNorm: 0689320 Milliliter(s) Inj 03/12/2017 03/12/2017 Inactive Zithromax Z-Juan 250 mg tablet RxNorm: 937012 1 Tablet(s) PO daily 03/11/2017 03/10/2017 Inactive zpack as directed Zithromax Z-Juan 250 mg tablet RxNorm: 117777 1 Tablet(s) PO daily 03/11/2017 03/15/2017 Inactive zpack as directed doxazosin 4 mg tablet RxNorm: 973837 1.5 Tablet(s) PO BID 02/12/2017 03/15/2017 Inactive fluticasone 50 mcg/actuation nasal spray,suspension RxNorm: 4656126 1 SPRAY NASAL BID 02/05/2017 No Stop Date Active metoprolol tartrate 75 mg tablet RxNorm: 7306922 1 Tablet(s) PO BID 01/29/2017 01/23/2018 Active metoprolol tartrate 75 mg tablet RxNorm: 9560331 1 Tablet(s) PO BID 01/29/2017 01/28/2017 Inactive doxazosin 4 mg tablet RxNorm: 245735 1 Tablet(s) PO BID 01/20/2017 02/11/2017 Inactive pantoprazole 40 mg tablet,delayed release RxNorm: 215356 1 Tablet(s) PO daily 12/24/2016 01/19/2017 Inactive pantoprazole 40 mg tablet,delayed release RxNorm: 014097 1 Tablet(s) PO daily 12/24/2016 12/23/2016 Inactive alprazolam 0.5 mg tablet RxNorm: 764274 1 Tablet(s) PO TID as needed anxiety 12/03/2016 04/01/2017 Active fluticasone 50 mcg/actuation nasal spray,suspension RxNorm: 1568712 1 [place] NASAL BID 11/25/2016 12/24/2016 Inactive Dexilant 60 mg capsule, delayed release RxNorm: 748389 1 Capsule(s) PO daily 11/25/2016 11/24/2016 Inactive fluticasone 50 mcg/actuation nasal spray,suspension RxNorm: 3150856 1 [place] NASAL BID 11/25/2016 11/24/2016 Inactive fluticasone 50 mcg/actuation nasal spray,suspension RxNorm: 0460578 1 [place] NASAL BID 11/25/2016 11/24/2016 Inactive Dexilant 60 mg capsule, delayed release RxNorm: 688476 1 Capsule(s) PO daily 11/25/2016 12/23/2016 Inactive ProAir RespiClick 90 mcg/actuation breath activated RxNorm: 9179287 1 INH bid and QID as needed 11/19/2016 05/17/2017 Active Please send STAT glimepiride 4 mg tablet RxNorm: 075066 1 Tablet(s) PO daily 11/19/2016 11/13/2017 Active Flonase Allergy Relief 50 mcg/actuation nasal spray,suspension RxNorm: 1747565 1 [place] NASAL BID 11/19/2016 11/24/2016 Inactive metoprolol tartrate 50 mg tablet RxNorm: 475272 1 Tablet(s) PO BID 11/19/2016 01/28/2017 Inactive Flonase Allergy Relief 50 mcg/actuation nasal spray,suspension RxNorm: 4220610 1 [place] NASAL BID 11/17/2016 11/18/2016 Inactive metoprolol tartrate 50 mg tablet RxNorm: 025579 1 Tablet(s) PO BID 11/17/2016 11/18/2016 Inactive ProAir RespiClick 90 mcg/actuation breath activated RxNorm: 3280792 1 INH bid and QID as needed 11/17/2016 11/16/2016 Inactive glimepiride 4 mg tablet RxNorm: 099369 1 Tablet(s) PO daily 11/17/2016 11/18/2016 Inactive ProAir RespiClick 90 mcg/actuation breath activated RxNorm: 9247974 1 INH bid and QID as needed 11/17/2016 11/18/2016 Inactive Please send STAT Kenalog 40 mg/mL suspension for injection RxNorm: 8888217 1 Milliliter(s) Inj 11/05/2016 11/05/2016 Inactive azithromycin 250 mg tablet RxNorm: 175134 Tablet(s) PO 2 tabs on day #1, then daily x 4 days 11/05/2016 12/23/2016 Inactive doxazosin 4 mg tablet RxNorm: 706964 1 Tablet(s) PO QPM 10/02/2016 01/19/2017 Inactive doxazosin 4 mg tablet RxNorm: 606605 1 Tablet(s) PO QPM 09/29/2016 10/01/2016 Inactive doxazosin 4 mg tablet RxNorm: 461141 1 Tablet(s) PO QPM 09/21/2016 09/28/2016 Inactive Cipro 500 mg tablet RxNorm: 582905 1 Tablet(s) PO BID 09/18/2016 09/17/2016 Inactive Cipro 500 mg tablet RxNorm: 647890 1 Tablet(s) PO BID 09/18/2016 09/24/2016 Inactive losartan 100 mg tablet RxNorm: 554054 1 Tablet(s) PO daily for high blood pressure 09/16/2016 09/10/2017 Active losartan 100 mg tablet RxNorm: 282478 1 Tablet(s) PO daily for high blood pressure 09/16/2016 09/15/2016 Inactive alprazolam 0.5 mg tablet RxNorm: 738320 1 Tablet(s) PO TID as needed anxiety 09/16/2016 11/14/2016 Inactive amlodipine 10 mg tablet RxNorm: 330644 1 Tablet(s) PO daily 08/03/2016 07/28/2017 Active Zyrtec 10 mg tablet RxNorm: 5078000 1 Tablet(s) PO daily 08/03/2016 09/15/2016 Inactive losartan 25 mg tablet RxNorm: 218339 1 Tablet(s) PO daily 07/08/2016 09/15/2016 Inactive Lipitor 10 mg tablet RxNorm: 512961 1 Tablet(s) PO QPM 07/08/2016 07/17/2016 Inactive OKAY TO DISPENSE GENERIC Lipitor 10 mg tablet RxNorm: 163340 1 Tablet(s) PO QPM 07/06/2016 07/07/2016 Inactive OKAY TO DISPENSE GENERIC losartan 25 mg tablet RxNorm: 829696 1 Tablet(s) PO daily 07/06/2016 07/07/2016 Inactive Parafon Forte DSC 500 mg tablet RxNorm: 604901 1 Tablet(s) PO QID No Start Date Active glimepiride 4 mg tablet RxNorm: 896000 1 Tablet(s) PO daily No Start Date 11/16/2016 Inactive naproxen 500 mg tablet RxNorm: 895636 1 Tablet(s) PO BID No Start Date 03/23/2017 Inactive amlodipine 5 mg tablet RxNorm: 613703 1 Tablet(s) PO daily No Start Date 08/02/2016 Inactive metoprolol tartrate 50 mg tablet RxNorm: 193114 1 Tablet(s) PO BID No Start Date 11/16/2016 Inactive Medication Administered Medication Codes Instructions Start Date Status Kenalog 40 mg/mL suspension for injection RxNorm: 7024458 1Milliliter 03/16/2017 No longer Active Kenalog 40 mg/mL suspension for injection RxNorm: 9747486 Milliliter 03/12/2017 No longer Active Kenalog 40 mg/mL suspension for injection RxNorm: 2886627 1Milliliter 11/05/2016 No longer Active Immunizations No [...] Code Item Item Code Result Date %Hba1C Oog437 % HbA1c 66188- 6 5.8 % 01/07/2017 %Hba1C Xim075 Gluc Ave 120 mg/dL 01/07/2017 Urine Culture Ucult Preliminary NO Growth Day 1 09/21/2016 Urine Culture Ucult Complete NO Growth Day 2 09/21/2016 Microalbumin Uxm704 MicroAlb 44.3 mg/dL 09/17/2016 Tsh Ord6 hTSH [...] 25.6 % 09/17/2016 Cbc With Differential Ord2 [place]% 8.1 % 09/17/2016 Cbc With Differential Ord2 MCH 29.0 pg 09/17/2016 Cbc With Differential Ord2 MCHC 33.3 pg 09/17/2016 Cbc With Differential Ord2 Eos% 3.5 % 09/17/2016 Cbc With Differential Ord2 Baso% 0.4 % 09/17/2016 Cbc With Differential Ord2 PLT 242 K/ul 09/17/2016 Cbc With Differential Ord2 Neut ABS# 4.34 K/ul 09/17/2016 Cbc With Differential Ord2 RDW 13.4 % 09/17/2016 Cbc With Differential Ord2 Lymph ABS# 1.78 K/ul 09/17/2016 Cbc With Differential Ord2 [place] ABS# 0.6 K/ul 09/17/2016 Cbc With Differential Ord2 Eos ABS# 0.2 K/ul 09/17/2016 Cbc With Differential Ord2 Baso ABS# 0.0 K/ul 09/17/2016 Lipid Ord30 CHOL 136 mg/dL 09/17/2016 Lipid Ord30 HDL 50.0 mg/dl 09/17/2016 Lipid Ord30 TRIG 70 mg/dL 09/17/2016 Lipid Ord30 LDL 72 mg/dL 09/17/2016 Lipid Ord30 C/HDL 2.7 Ratio 09/17/2016 Comp Metabolic Dtn591 NA 140 mEq/L 09/17/2016 Comp Metabolic Dgo671 K 4.1 mEq/L 09/17/2016 Comp Metabolic Fyn881 CL 105 mEq/L 09/17/2016 Comp Metabolic Czg880 CO2 29.0 mEq/L 09/17/2016 Comp Metabolic Tpe204 ANION GAP 10 09/17/2016 Comp Metabolic Hba298 GLUCOSE 89 mg/dL 09/17/2016 Comp Metabolic Noi918 Creat 0.9 mg/dL 09/17/2016 Comp Metabolic Grh531 eGFR 65 ml/min/1.73m2 09/17/2016 Comp Metabolic Zdi750 BUN 20 mg/dL 09/17/2016 Comp Metabolic Sdo165 B/C Ratio 22.2 Ratio 09/17/2016 Comp Metabolic Omn921 CALCIUM 9.3 mg/dL 09/17/2016 Comp Metabolic Iig442 ALK PHOS 107 U/L 09/17/2016 Comp Metabolic Meg457 AST(SGOT) 22 U/L 09/17/2016 Comp Metabolic Xoj475 ALT(SGPT) 15 U/L 09/17/2016 Comp Metabolic Zoo091 BILI T 0.7 mg/dL 09/17/2016 Comp Metabolic Huw197 ALBUMIN 4.0 g/dL 09/17/2016 Comp Metabolic Tdb293 TPRO 6.8 g/dL 09/17/2016 Comp Metabolic But010 GLOB 2.8 g/dL 09/17/2016 Comp Metabolic Frv056 A/G Ratio 1.4 Ratio 09/17/2016 Comp Metabolic Qje614 Osmo 281 mOsmo 09/17/2016 %Hba1C Pqo299 % HbA1c 88198- 6 6.0 % 09/17/2016 %Hba1C Zpj158 Gluc Ave 126 mg/dL 09/17/2016 Review of Systems System Result Effective [...] Procedure Codes Date PPPS, SUBSEQ VISIT CPT-4: O8139Uiaiyip 03/30/2017 THER/PROPH/DIAG INJ SC/IM CPT-4: 13970Bedxpvj 03/16/2017 TRIAMCINOLONE ACET INJ NOS CPT-4: O7731Wjkheqg 03/16/2017 THER/PROPH/DIAG INJ SC/IM CPT-4: 49590Mmukwwb 03/12/2017 TRIAMCINOLONE ACET INJ NOS CPT-4: S0242Dfxngna 03/12/2017 THER/PROPH/DIAG INJ SC/IM CPT-4: 79914Irbbzqy 11/05/2016 TRIAMCINOLONE ACET INJ NOS CPT-4: U0805Nggwylu 11/05/2016 URINALYSIS NONAUTO W/O SCOPE CPT-4: 04425Cbmaqfh 09/18/2016 Vital Signs Date Vital 03/30/2017 BMI: 33.2 Code: 21559-8 Height: 5'7" Weight: 212 lbs 03/16/2017 Blood Pressure 1: 140/80 Code: 8480-6 BMI: 34.0 Code: 97389-2 Heart Rate 1: 70 bpm Height: 5'7" SpO2: 95% Weight: 217 lbs 03/12/2017 Blood Pressure 1: 142/80 Code: 8480-6 BMI: 34.0 Code: 64470-5 Heart Rate 1: 76 bpm Height: 5'7" SpO2: 92% Weight: 217 lbs 02/17/2017 Blood Pressure 1: 162/64 Code: 8480-6 BMI: 32.9 Code: 05226-9 Heart Rate 1: 59 bpm Height: 5'7" SpO2: 97% Weight: 210 lbs 01/20/2017 Blood Pressure 1: 162/74 Code: 8480-6 BMI: 32.9 Code: 64228-5 Heart Rate 1: 56 bpm Height: 5'7" SpO2: 98% Weight: 210 lbs 11/17/2016 Blood Pressure 1: 156/60 Code: 8480-6 BMI: 34.8 Code: 09632-4 Heart Rate 1: 63 bpm Height: 5'7" SpO2: 96% Weight: 222 lbs 11/05/2016 Blood Pressure 1: 160/68 Code: 8480-6 BMI: 34.5 Code: 32434-5 Heart Rate 1: 66 bpm Height: 5'7" SpO2: 97% Temperature: 36.9 (C) / 98.5 (F) Weight: 220 lbs 09/21/2016 Blood Pressure 1: 180/72 Code: 8480-6 Blood Pressure 1: 166/72 Code: 8480-6 BMI: 32.1 Code: 18435-6 Heart Rate 1: 57 bpm Height: 5'7" SpO2: 98% Weight: 205 lbs 09/16/2016 Blood Pressure 1: 168/70 Code: 8480-6 Heart Rate 1: 49 bpm SpO2: 95% 08/03/2016 Blood Pressure 1: 162/70 Code: 8480-6 BMI: 32.0 Code: 04091-3 Heart Rate 1: 43 bpm Height: 5'7" SpO2: 98% Weight: 204 lbs 07/06/2016 Blood Pressure 1: 170/86 Code: 8480-6 BMI: 32.0 Code: 82237-1 Heart Rate 1: 48 bpm Height: 5'7" [...] Directive data Encounters Encounter Performer Location Codes ([id number]) 74440 EST. PATIENT, LEVEL IV Diagnosis: Type 2 diabetes mellitus without complications[ICD10: E11.9] Diagnosis: Otalgia, bilateral[ICD10: H92.03] Diagnosis: Essential (primary) hypertension[ICD10: I10] Diagnosis: Other allergic rhinitis[ICD10: J30.89] Fifi Camejo MD [facility] CPT-4: 04276 03/16/2017 [id number] EST. PATIENT, LEVEL IV Diagnosis: Other acute sinusitis[ICD10: J01.80] Diagnosis: Acute suppurative otitis media without spontaneous rupture of ear drum, bilateral[ICD10: H66.003] Diagnosis: Other allergic rhinitis[ICD10: J30.89] Krysta Camejo MD, [facility] CPT- 4: 34564 03/12/2017 ([id number]) 18554 EST. PATIENT, LEVEL IV Diagnosis: Essential (primary) hypertension[ICD10: I10] Diagnosis: Type 2 diabetes mellitus without complications[ICD10: E11.9] Fifi Camejo MD [facility] CPT-4: 65557 02/17/2017 ([id number]) 24811 EST. PATIENT, LEVEL IV Diagnosis: Essential (primary) hypertension[ICD10: I10] Diagnosis: Type 2 diabetes mellitus without complications[ICD10: E11.9] Fifi Camejo MD [facility] CPT-4: 92355 01/20/2017 ([id number]) 13034 EST. PATIENT, LEVEL IV Diagnosis: Essential (primary) hypertension[ICD10: I10] Diagnosis: Type 2 diabetes mellitus without complications[ICD10: E11.9] Diagnosis: Gastro-esophageal reflux disease without esophagitis[ICD10: K21.9] Fifi Camejo MD, [facility] CPT-4: 02216 11/17/2016 ([id number]) 16530 EST. PATIENT, LEVEL III Diagnosis: Acute bronchitis due to other specified organisms[ICD10: J20.8] Diagnosis: Cough[ICD10: R05] Fifi Camejo MD [facility] CPT-4: 58473 11/05/2016 ([id number]) 64190 EST. PATIENT, LEVEL IV Diagnosis: Essential (primary) hypertension[ICD10: I10] Diagnosis: Type 2 diabetes mellitus without complications[ICD10: E11.9] Fifi Camejo MD, [facility] CPT-4: 69170 09/21/2016 ([id number]) Miscellaneous no charge Diagnosis: Essential (primary) hypertension[ICD10: I10] Fifi Camejo MD, [facility] CPT-4: 77098 09/16/2016 ([id number]) 24513 EST. PATIENT, LEVEL III Diagnosis: Type 2 diabetes mellitus without complications[ICD10: E11.9] Diagnosis: Essential (primary) hypertension[ICD10: I10] Fifi Camejo MD, [facility] CPT-4: 91443 08/03/2016 ([id number]) OFFICE VISIT, NEW - LEVEL 4 Diagnosis: Essential (primary) hypertension[ICD10: I10] Diagnosis: Type 2 diabetes mellitus without complications[ICD10: E11.9] Diagnosis: Carpal tunnel syndrome, left upper limb[ICD10: G56.02] Diagnosis: Right upper quadrant pain[ICD10: R10.11] Diagnosis: Mixed hyperlipidemia[ICD10: E78.2] Fifi Camejo MD, [facility] CPT- 4: 15320 07/06/2016 Plan of Care Planned Activity Notes Codes Status Date Referral: Dr Calvo Patient informed. Referral info [...] DOPA paperwork for health care surrogate. 03/30/2017 Patient Education: Patient Medication Summary Completed [...] dr. calvo - appt sometime after March 24Hypertension - well controlled - continue with current medications, continue with no added salt diet. Pt has been encouraged to exercise daily.The pt has been advised to call the office if there are any acute concerns about change in blood pressure readings at home. 03/16/2017 Appointment: Fifi Camejo WPtel: [phone] [facility] (30 min) Complex 03/16/2017 Patient Education: Patient Medication Summary Completed 03/16/2017 Patient Education: Obesity Completed 03/16/2017 Care Plan: Referral Order SNOMED-CT : [id number] Pending 03/16/2017 Visit Plan: Allergies - chronic [...] worsen. 03/12/2017 [id number] ([facility] Moderate 03/12/2017 Patient Education: Patient [...] controlled. 02/17/2017 [phone] ([facility] Complex 02/17/2017 Patient Education: [...] less controlled. 01/20/2017 [facility]ment[phone] [facility] ([facility]) Complex 01/20/2017 Patient Education: [...] dexilant 11/17/2016 [facility]ment[phone] [facility] ([facility]) Complex 11/17/2016 Patient Education: Patient [...] 110 range. 09/21/2016 Appointment[phone] [facility] ([facility] min) Moderate 09/21/2016 Patient Education: [...] time. 08/03/2016 Appointment: Fifi Camejo WPtel: [phone] [facility] (15 min) Moderate 08/03/2016 Patient Education: Patient [...] improving. 07/06/2016 Appointment: [phone] [facility] New Patient 07/06/2016 Patient Education: Patient Medication [...] have a [facility] March 24 Hypertension - well [...]
--- OUTSIDE RECORDS SUMMARY | 2019-03-08 15:49 | XMS REPORT | CCD ---
Author Author Fifi Camejo MD, [facility] Address [address] [place] [address] Phone Care Team Providers Care Assembly Lead Person Name Role Phone PP Unavailable CCM Unavailable Summary Purpose Interface Exchange Insurance Providers Payer name Policy type / Coverage type Covered alliance party ID Effective Begin Date Effective End Date WPS Medicare Part B Medicare Part B [id number] Unknown Unknown FOR LIFE WPS Medicare Part B [id number] Unknown Unknown Family history Father Diagnosis Age At Onset Cancer Unknown Brother Diagnosis Age At Onset Diabetes mellitus Type 2 Unknown Heart Attack Unknown Social History Social History Element Codes Description Effective Dates Marital status Unknown Wu 11/05/2016 Number of children Unknown 1 07/06/2016 Employment Unknown Retired 07/06/[address]: 863691827 Never smoker 07/06/[address]: 399325318 Never drinks alcohol 07/06/2016 Allergies, Adverse Reactions, [...] Fill Instructions Lipitor 10 mg tablet RxNorm: 393649 1 Tablet(s) PO QPM 03/30/2017 06/27/2017 Active OKAY TO DISPENSE GENERIC doxazosin 4 mg tablet RxNorm: 617097 1.5 Tablet(s) PO BID 03/16/2017 03/10/2018 Active prednisone 10 mg tablets in a dose pack RxNorm: 616913 Tablet(s) take dose pack as directed PO take with food 03/16/2017 No Stop Date Active Kenalog 40 mg/mL suspension for injection RxNorm: 0029310 1 Milliliter(s) Inj 03/16/2017 03/16/2017 Inactive Kenalog 40 mg/mL suspension for injection RxNorm: 4653373 Milliliter(s) Inj 03/12/2017 03/12/2017 Inactive Zithromax Z-Juan 250 mg tablet RxNorm: 431960 1 Tablet(s) PO daily 03/11/2017 03/10/2017 Inactive zpack as directed Zithromax Z-Juan 250 mg tablet RxNorm: 138882 1 Tablet(s) PO daily 03/11/2017 03/15/2017 Inactive zpack as directed doxazosin 4 mg tablet RxNorm: 096508 1.5 Tablet(s) PO BID 02/12/2017 03/15/2017 Inactive fluticasone 50 mcg/actuation nasal spray,suspension RxNorm: 2421032 1 SPRAY NASAL BID 02/05/2017 No Stop Date Active metoprolol tartrate 75 mg tablet RxNorm: 5073171 1 Tablet(s) PO BID 01/29/2017 01/23/2018 Active metoprolol tartrate 75 mg tablet RxNorm: 4793211 1 Tablet(s) PO BID 01/29/2017 01/28/2017 Inactive doxazosin 4 mg tablet RxNorm: 867838 1 Tablet(s) PO BID 01/20/2017 02/11/2017 Inactive pantoprazole 40 mg tablet,delayed release RxNorm: 463615 1 Tablet(s) PO daily 12/24/2016 01/19/2017 Inactive pantoprazole 40 mg tablet,delayed release RxNorm: 213050 1 Tablet(s) PO daily 12/24/2016 12/23/2016 Inactive alprazolam 0.5 mg tablet RxNorm: 564708 1 Tablet(s) PO TID as needed anxiety 12/03/2016 04/01/2017 Active fluticasone 50 mcg/actuation nasal spray,suspension RxNorm: 0173396 1 Musella NASAL BID 11/25/2016 12/24/2016 Inactive Dexilant 60 mg capsule, delayed release RxNorm: 013009 1 Capsule(s) PO daily 11/25/2016 11/24/2016 Inactive fluticasone 50 mcg/actuation nasal spray,suspension RxNorm: 8407531 1 Musella NASAL BID 11/25/2016 11/24/2016 Inactive fluticasone 50 mcg/actuation nasal spray,suspension RxNorm: 3117453 1 Musella NASAL BID 11/25/2016 11/24/2016 Inactive Dexilant 60 mg capsule, delayed release RxNorm: 753149 1 Capsule(s) PO daily 11/25/2016 12/23/2016 Inactive ProAir RespiClick 90 mcg/actuation breath activated RxNorm: 3769137 1 INH bid and QID as needed 11/19/2016 05/17/2017 Active Please send STAT glimepiride 4 mg tablet RxNorm: 390353 1 Tablet(s) PO daily 11/19/2016 11/13/2017 Active Flonase Allergy Relief 50 mcg/actuation nasal spray,suspension RxNorm: 9360322 1 Musella NASAL BID 11/19/2016 11/24/2016 Inactive metoprolol tartrate 50 mg tablet RxNorm: 654160 1 Tablet(s) PO BID 11/19/2016 01/28/2017 Inactive Flonase Allergy Relief 50 mcg/actuation nasal spray,suspension RxNorm: 4310020 1 Musella NASAL BID 11/17/2016 11/18/2016 Inactive metoprolol tartrate 50 mg tablet RxNorm: 719729 1 Tablet(s) PO BID 11/17/2016 11/18/2016 Inactive ProAir RespiClick 90 mcg/actuation breath activated RxNorm: 7851291 1 INH bid and QID as needed 11/17/2016 11/16/2016 Inactive glimepiride 4 mg tablet RxNorm: 223054 1 Tablet(s) PO daily 11/17/2016 11/18/2016 Inactive ProAir RespiClick 90 mcg/actuation breath activated RxNorm: 0545317 1 INH bid and QID as needed 11/17/2016 11/18/2016 Inactive Please send STAT Kenalog 40 mg/mL suspension for injection RxNorm: 9871259 1 Milliliter(s) Inj 11/05/2016 11/05/2016 Inactive azithromycin 250 mg tablet RxNorm: 752607 Tablet(s) PO 2 tabs on day #1, then daily x 4 days 11/05/2016 12/23/2016 Inactive doxazosin 4 mg tablet RxNorm: 594539 1 Tablet(s) PO QPM 10/02/2016 01/19/2017 Inactive doxazosin 4 mg tablet RxNorm: 059655 1 Tablet(s) PO QPM 09/29/2016 10/01/2016 Inactive doxazosin 4 mg tablet RxNorm: 563190 1 Tablet(s) PO QPM 09/21/2016 09/28/2016 Inactive Cipro 500 mg tablet RxNorm: 605434 1 Tablet(s) PO BID 09/18/2016 09/17/2016 Inactive Cipro 500 mg tablet RxNorm: 044990 1 Tablet(s) PO BID 09/18/2016 09/24/2016 Inactive losartan 100 mg tablet RxNorm: 276841 1 Tablet(s) PO daily for high blood pressure 09/16/2016 09/10/2017 Active losartan 100 mg tablet RxNorm: 827299 1 Tablet(s) PO daily for high blood pressure 09/16/2016 09/15/2016 Inactive alprazolam 0.5 mg tablet RxNorm: 157770 1 Tablet(s) PO TID as needed anxiety 09/16/2016 11/14/2016 Inactive amlodipine 10 mg tablet RxNorm: 677169 1 Tablet(s) PO daily 08/03/2016 07/28/2017 Active Zyrtec 10 mg tablet RxNorm: 5311800 1 Tablet(s) PO daily 08/03/2016 09/15/2016 Inactive losartan 25 mg tablet RxNorm: 691811 1 Tablet(s) PO daily 07/08/2016 09/15/2016 Inactive Lipitor 10 mg tablet RxNorm: 868745 1 Tablet(s) PO QPM 07/08/2016 07/17/2016 Inactive OKAY TO DISPENSE GENERIC Lipitor 10 mg tablet RxNorm: 353528 1 Tablet(s) PO QPM 07/06/2016 07/07/2016 Inactive OKAY TO DISPENSE GENERIC losartan 25 mg tablet RxNorm: 338569 1 Tablet(s) PO daily 07/06/2016 07/07/2016 Inactive Parafon Forte DSC 500 mg tablet RxNorm: 926201 1 Tablet(s) PO QID No Start Date Active glimepiride 4 mg tablet RxNorm: 708960 1 Tablet(s) PO daily No Start Date 11/16/2016 Inactive naproxen 500 mg tablet RxNorm: 147447 1 Tablet(s) PO BID No Start Date 03/23/2017 Inactive amlodipine 5 mg tablet RxNorm: 791503 1 Tablet(s) PO daily No Start Date 08/02/2016 Inactive metoprolol tartrate 50 mg tablet RxNorm: 845802 1 Tablet(s) PO BID No Start Date 11/16/2016 Inactive Medication Administered Medication Codes Instructions Start Date Status Kenalog 40 mg/mL suspension for injection RxNorm: 9849576 1Milliliter 03/16/2017 No longer Active Kenalog 40 mg/mL suspension for injection RxNorm: 9944200 Milliliter 03/12/2017 No longer Active Kenalog 40 mg/mL suspension for injection RxNorm: 7642288 1Milliliter 11/05/2016 No longer Active Immunizations No [...] Code Item Item Code Result Date %Hba1C Zqf706 % HbA1c 64765- 6 5.8 % 01/07/2017 %Hba1C Ofw363 Gluc Ave 120 mg/dL 01/07/2017 Urine Culture Ucult Complete NO Growth Day 2 09/21/2016 Urine Culture Ucult Preliminary NO Growth Day 1 09/21/2016 %Hba1C Pbv798 % HbA1c 96264- 6 6.0 % 09/17/2016 %Hba1C Lgb157 Gluc Ave 126 mg/dL 09/17/2016 Comp Metabolic Xjj425 NA 140 mEq/L 09/17/2016 Comp Metabolic Ogc843 K 4.1 mEq/L 09/17/2016 Comp Metabolic Nde583 CL 105 mEq/L 09/17/2016 Comp Metabolic Yyx268 CO2 29.0 mEq/L 09/17/2016 Comp Metabolic Opj837 ANION GAP 10 09/17/2016 Comp Metabolic Pea391 GLUCOSE 89 mg/dL 09/17/2016 Comp Metabolic Wab858 Creat 0.9 mg/dL 09/17/2016 Comp Metabolic Yks932 eGFR 65 ml/min/1.73m2 09/17/2016 Comp Metabolic Itb787 BUN 20 mg/dL 09/17/2016 Comp Metabolic Bfg815 B/C Ratio 22.2 Ratio 09/17/2016 Comp Metabolic Zpu984 CALCIUM 9.3 mg/dL 09/17/2016 Comp Metabolic Jhn388 ALK PHOS 107 U/L 09/17/2016 Comp Metabolic Ncu144 AST(SGOT) 22 U/L 09/17/2016 Comp Metabolic Jgj214 ALT(SGPT) 15 U/L 09/17/2016 Comp Metabolic Eyh215 BILI T 0.7 mg/dL 09/17/2016 Comp Metabolic Vep785 ALBUMIN 4.0 g/dL 09/17/2016 Comp Metabolic Stn181 TPRO 6.8 g/dL 09/17/2016 Comp Metabolic Oeh966 GLOB 2.8 g/dL 09/17/2016 Comp Metabolic Fzd515 A/G Ratio 1.4 Ratio 09/17/2016 Comp Metabolic Aod539 Osmo 281 mOsmo 09/17/2016 Microalbumin Nos799 MicroAlb 44.3 mg/dL 09/17/2016 Tsh Ord6 hTSH II 4.66 uIU/mL 09/17/2016 Cbc With Differential Ord2 WBC 6.95 K/ul 09/17/2016 Cbc With Differential Ord2 RBC 4.65 M/ul 09/17/2016 Cbc With Differential Ord2 HGB 13.5 g/dl 09/17/2016 Cbc With Differential Ord2 HCT 40.5 % 09/17/2016 Cbc With Differential Ord2 Neut% 62.4 % 09/17/2016 Cbc With Differential Ord2 Lymph% 25.6 % 09/17/2016 Cbc With Differential Ord2 MCV 87.1 fl 09/17/2016 Cbc With Differential Ord2 MCH 29.0 pg 09/17/2016 Cbc With Differential Ord2 [place]% 8.1 % 09/17/2016 Cbc With Differential Ord2 [...] 1.78 K/ul 09/17/2016 Cbc With Differential Ord2 [place] ABS# 0.6 K/ul 09/17/2016 Cbc With Differential [...] Procedure Codes Date PPPS, SUBSEQ VISIT CPT-4: Y2156Neiuaom 03/30/2017 THER/PROPH/DIAG INJ SC/IM CPT-4: 46623Guccsdo 03/16/2017 TRIAMCINOLONE ACET INJ NOS CPT-4: I9398Fgnvzai 03/16/2017 THER/PROPH/DIAG INJ SC/IM CPT-4: 64914Xepqykb 03/12/2017 TRIAMCINOLONE ACET INJ NOS CPT-4: W3772Rwxjvok 03/12/2017 THER/PROPH/DIAG INJ SC/IM CPT-4: 69328Botuqvh 11/05/2016 TRIAMCINOLONE ACET INJ NOS CPT-4: C7939Drvaubn 11/05/2016 URINALYSIS NONAUTO W/O SCOPE CPT-4: 62433Zbkrzen 09/18/2016 Vital Signs Date Vital 03/30/2017 BMI: 33.2 Code: 26759-6 Height: 5'7" Weight: 212 lbs 03/16/2017 Blood Pressure 1: 140/80 Code: 8480-6 BMI: 34.0 Code: 52759-0 Heart Rate 1: 70 bpm Height: 5'7" SpO2: 95% Weight: 217 lbs 03/12/2017 Blood Pressure 1: 142/80 Code: 8480-6 BMI: 34.0 Code: 41183-1 Heart Rate 1: 76 bpm Height: 5'7" SpO2: 92% Weight: 217 lbs 02/17/2017 Blood Pressure 1: 162/64 Code: 8480-6 BMI: 32.9 Code: 88984-9 Heart Rate 1: 59 bpm Height: 5'7" SpO2: 97% Weight: 210 lbs 01/20/2017 Blood Pressure 1: 162/74 Code: 8480-6 BMI: 32.9 Code: 49642-5 Heart Rate 1: 56 bpm Height: 5'7" SpO2: 98% Weight: 210 lbs 11/17/2016 Blood Pressure 1: 156/60 Code: 8480-6 BMI: 34.8 Code: 12652-5 Heart Rate 1: 63 bpm Height: 5'7" SpO2: 96% Weight: 222 lbs 11/05/2016 Blood Pressure 1: 160/68 Code: 8480-6 BMI: 34.5 Code: 45323-0 Heart Rate 1: 66 bpm Height: 5'7" SpO2: 97% Temperature: 36.9 (C) / 98.5 (F) Weight: 220 lbs 09/21/2016 Blood Pressure 1: 180/72 Code: 8480-6 Blood Pressure 1: 166/72 Code: 8480-6 BMI: 32.1 Code: 07067-3 Heart Rate 1: 57 bpm Height: 5'7" SpO2: 98% Weight: 205 lbs 09/16/2016 Blood Pressure 1: 168/70 Code: 8480-6 Heart Rate 1: 49 bpm SpO2: 95% 08/03/2016 Blood Pressure 1: 162/70 Code: 8480-6 BMI: 32.0 Code: 47330-1 Heart Rate 1: 43 bpm Height: 5'7" SpO2: 98% Weight: 204 lbs 07/06/2016 Blood Pressure 1: 170/86 Code: 8480-6 BMI: 32.0 Code: 74884-0 Heart Rate 1: 48 bpm Height: 5'7" [...] Directive data Encounters Encounter Performer Location Codes ([id number]) 96163 EST. PATIENT, LEVEL IV Diagnosis: Type 2 diabetes mellitus without complications[ICD10: E11.9] Diagnosis: Otalgia, bilateral[ICD10: H92.03] Diagnosis: Essential (primary) hypertension[ICD10: I10] Diagnosis: Other allergic rhinitis[ICD10: J30.89] Fifi Camejo MD [facility] CPT-4: 01777 03/16/2017 63897 EST. PATIENT, LEVEL IV Diagnosis: Other acute sinusitis[ICD10: J01.80] Diagnosis: Acute suppurative otitis media without spontaneous rupture of ear drum, bilateral[ICD10: H66.003] Diagnosis: Other allergic rhinitis[ICD10: J30.89] Krysta Camejo MD, [facility] CPT- 4: 24632 03/12/2017 ([id number]) 25444 EST. PATIENT, LEVEL IV Diagnosis: Essential (primary) hypertension[ICD10: I10] Diagnosis: Type 2 diabetes mellitus without complications[ICD10: E11.9] Fifi Camejo MD [facility] CPT-4: 13982 02/17/2017 ([id number]) 86656 EST. PATIENT, LEVEL IV Diagnosis: Essential (primary) hypertension[ICD10: I10] Diagnosis: Type 2 diabetes mellitus without complications[ICD10: E11.9] Fifi Camejo MD [facility] CPT-4: 06761 01/20/2017 ([id number]) 45028 EST. PATIENT, LEVEL IV Diagnosis: Essential (primary) hypertension[ICD10: I10] Diagnosis: Type 2 diabetes mellitus without complications[ICD10: E11.9] Diagnosis: Gastro-esophageal reflux disease without esophagitis[ICD10: K21.9] Fifi Camejo MD, [facility] CPT-4: 31642 11/17/2016 ([id number]) 63548 EST. PATIENT, LEVEL III Diagnosis: Acute bronchitis due to other specified organisms[ICD10: J20.8] Diagnosis: Cough[ICD10: R05] Fifi Camejo MD [facility] CPT-4: 55076 11/05/2016 ([id number]) 56982 EST. PATIENT, LEVEL IV Diagnosis: Essential (primary) hypertension[ICD10: I10] Diagnosis: Type 2 diabetes mellitus without complications[ICD10: E11.9] Fifi Camejo MD, [facility] CPT-4: 68726 09/21/2016 ([id number]) Miscellaneous no charge Diagnosis: Essential (primary) hypertension[ICD10: I10] Fifi Camejo MD, [facility] CPT-4: 52883 09/16/2016 ([id number]) 01101 EST. PATIENT, LEVEL III Diagnosis: Type 2 diabetes mellitus without complications[ICD10: E11.9] Diagnosis: Essential (primary) hypertension[ICD10: I10] Fifi Camejo MD, [facility] CPT-4: 49141 08/03/2016 ([id number]) OFFICE VISIT, NEW - LEVEL 4 Diagnosis: Essential (primary) hypertension[ICD10: I10] Diagnosis: Type 2 diabetes mellitus without complications[ICD10: E11.9] Diagnosis: Carpal tunnel syndrome, left upper limb[ICD10: G56.02] Diagnosis: Right upper quadrant pain[ICD10: R10.11] Diagnosis: Mixed hyperlipidemia[ICD10: E78.2] Fifi Camejo MD, [facility] CPT- 4: 49678 07/06/2016 Plan of Care Planned Activity Notes [...] home. 03/16/2017 Appointment: Fifi Camejo WPtel: [phone] [facility] (30 min) Complex 03/16/2017 Patient Education: Patient Medication Summary Completed 03/16/2017 Patient Education: Obesity Completed 03/16/2017 Care Plan: Referral Order SNOMED-CT : [id number] Pending 03/16/2017 Visit Plan: Allergies - chronic [...] worsen. 03/12/2017 [phone] ([facility] Moderate 03/12/2017 Patient Education: [...] less controlled. 02/17/2017 [phone] ([facility] Complex 02/17/2017 Patient Education: [...] less controlled. 01/20/2017 [phone] ([facility] Complex 01/20/2017 Patient Education: [...] dexilant 11/17/2016 [phone] ([facility]) Complex 11/17/2016 Patient Education: [...] 110 range. 09/21/2016 [facility]ment[phone] ([facility] min) Moderate 09/21/2016 Patient Education: [...] time. 08/03/2016 Appointment: Fifi Camejo WPtel: [phone] [facility] (15 min) Moderate 08/03/2016 Patient Education: Patient [...] improving. 07/06/2016 [facility]ment[phone] New [facility] 07/06/2016 Patient Education: Patient [...] [facility] a [facility] after March 24 Hypertension - [...]
--- OUTSIDE RECORDS SUMMARY | 2019-03-08 15:51 | XMS REPORT | CCD ---
Author Author Fifi Camejo Organization Fifi Camejo MD, [facility] Address [address] [place] [address] Phone Care Team Providers Care Ward Assistant Name Role Phone PP Unavailable CCM Unavailable Summary Purpose Interface Exchange Insurance Providers Payer name Policy type / Coverage type Covered constitution party ID Effective Begin Date Effective End Date WPS Medicare Part B Medicare Part B [id number] Unknown Unknown FOR LIFE WPS Medicare Part B [id number] Unknown Unknown Family history Brother Diagnosis Age At Onset Diabetes mellitus Type 2 Unknown Heart Attack Unknown Social History Social History Element Codes Description Effective Dates Marital status Unknown Wu 11/05/2016 Number of children Unknown 1 07/06/2016 Employment Unknown Retired 07/06/[address]: 678122254 Never smoker 07/06/[address]: 286248976 Never drinks alcohol 07/06/2016 Allergies, Adverse Reactions, [...] Start Date Stop Date Status Fill Instructions Kenalog 40 mg/mL suspension for injection RxNorm: 2452297 1 Milliliter(s) Inj 03/16/2017 03/16/2017 Inactive doxazosin 4 mg tablet RxNorm: 884412 1.5 Tablet(s) PO BID 03/16/2017 03/10/2018 Active prednisone 10 mg tablets in a dose pack RxNorm: 053283 Tablet(s) take dose pack as directed PO take with food 03/16/2017 No Stop Date Active Kenalog 40 mg/mL suspension for injection RxNorm: 3769579 Milliliter(s) Inj 03/12/2017 03/12/2017 Inactive Zithromax Z-Juan 250 mg tablet RxNorm: 267256 1 Tablet(s) PO daily 03/11/2017 03/10/2017 Inactive zpack as directed Zithromax Z-Juan 250 mg tablet RxNorm: 228303 1 Tablet(s) PO daily 03/11/2017 03/15/2017 Inactive zpack as directed doxazosin 4 mg tablet RxNorm: 524263 1.5 Tablet(s) PO BID 02/12/2017 03/15/2017 Inactive fluticasone 50 mcg/actuation nasal spray,suspension RxNorm: 6564641 1 SPRAY NASAL BID 02/05/2017 No Stop Date Active metoprolol tartrate 75 mg tablet RxNorm: 7980011 1 Tablet(s) PO BID 01/29/2017 01/23/2018 Active metoprolol tartrate 75 mg tablet RxNorm: 9453532 1 Tablet(s) PO BID 01/29/2017 01/28/2017 Inactive doxazosin 4 mg tablet RxNorm: 491302 1 Tablet(s) PO BID 01/20/2017 02/11/2017 Inactive pantoprazole 40 mg tablet,delayed release RxNorm: 843984 1 Tablet(s) PO daily 12/24/2016 01/19/2017 Inactive pantoprazole 40 mg tablet,delayed release RxNorm: 179201 1 Tablet(s) PO daily 12/24/2016 12/23/2016 Inactive alprazolam 0.5 mg tablet RxNorm: 503056 1 Tablet(s) PO TID as needed anxiety 12/03/2016 04/01/2017 Active fluticasone 50 mcg/actuation nasal spray,suspension RxNorm: 9411080 1 [place] NASAL BID 11/25/2016 12/24/2016 Inactive Dexilant 60 mg capsule, delayed release RxNorm: 361804 1 Capsule(s) PO daily 11/25/2016 11/24/2016 Inactive fluticasone 50 mcg/actuation nasal spray,suspension RxNorm: 3720152 1 [place] NASAL BID 11/25/2016 11/24/2016 Inactive fluticasone 50 mcg/actuation nasal spray,suspension RxNorm: 7604469 1 [place] NASAL BID 11/25/2016 11/24/2016 Inactive Dexilant 60 mg capsule, delayed release RxNorm: 921149 1 Capsule(s) PO daily 11/25/2016 12/23/2016 Inactive ProAir RespiClick 90 mcg/actuation breath activated RxNorm: 2915218 1 INH bid and QID as needed 11/19/2016 05/17/2017 Active Please send STAT glimepiride 4 mg tablet RxNorm: 714646 1 Tablet(s) PO daily 11/19/2016 11/13/2017 Active Flonase Allergy Relief 50 mcg/actuation nasal spray,suspension RxNorm: 0473943 1 [place] NASAL BID 11/19/2016 11/24/2016 Inactive metoprolol tartrate 50 mg tablet RxNorm: 807342 1 Tablet(s) PO BID 11/19/2016 01/28/2017 Inactive Flonase Allergy Relief 50 mcg/actuation nasal spray,suspension RxNorm: 8011045 1 [place] NASAL BID 11/17/2016 11/18/2016 Inactive metoprolol tartrate 50 mg tablet RxNorm: 939202 1 Tablet(s) PO BID 11/17/2016 11/18/2016 Inactive ProAir RespiClick 90 mcg/actuation breath activated RxNorm: 1797248 1 INH bid and QID as needed 11/17/2016 11/16/2016 Inactive glimepiride 4 mg tablet RxNorm: 749900 1 Tablet(s) PO daily 11/17/2016 11/18/2016 Inactive ProAir RespiClick 90 mcg/actuation breath activated RxNorm: 0555719 1 INH bid and QID as needed 11/17/2016 11/18/2016 Inactive Please send STAT Kenalog 40 mg/mL suspension for injection RxNorm: 5347065 1 Milliliter(s) Inj 11/05/2016 11/05/2016 Inactive azithromycin 250 mg tablet RxNorm: 125392 Tablet(s) PO 2 tabs on day #1, then daily x 4 days 11/05/2016 12/23/2016 Inactive doxazosin 4 mg tablet RxNorm: 724954 1 Tablet(s) PO QPM 10/02/2016 01/19/2017 Inactive doxazosin 4 mg tablet RxNorm: 043800 1 Tablet(s) PO QPM 09/29/2016 10/01/2016 Inactive doxazosin 4 mg tablet RxNorm: 341064 1 Tablet(s) PO QPM 09/21/2016 09/28/2016 Inactive Cipro 500 mg tablet RxNorm: 128177 1 Tablet(s) PO BID 09/18/2016 09/17/2016 Inactive Cipro 500 mg tablet RxNorm: 455257 1 Tablet(s) PO BID 09/18/2016 09/24/2016 Inactive losartan 100 mg tablet RxNorm: 151644 1 Tablet(s) PO daily for high blood pressure 09/16/2016 09/10/2017 Active losartan 100 mg tablet RxNorm: 895535 1 Tablet(s) PO daily for high blood pressure 09/16/2016 09/15/2016 Inactive alprazolam 0.5 mg tablet RxNorm: 180827 1 Tablet(s) PO TID as needed anxiety 09/16/2016 11/14/2016 Inactive amlodipine 10 mg tablet RxNorm: 597504 1 Tablet(s) PO daily 08/03/2016 07/28/2017 Active Zyrtec 10 mg tablet RxNorm: 8829716 1 Tablet(s) PO daily 08/03/2016 09/15/2016 Inactive Lipitor 10 mg tablet RxNorm: 297387 1 Tablet(s) PO QPM 07/08/2016 07/17/2016 Inactive OKAY TO DISPENSE GENERIC losartan 25 mg tablet RxNorm: 792425 1 Tablet(s) PO daily 07/08/2016 09/15/2016 Inactive Lipitor 10 mg tablet RxNorm: 250747 1 Tablet(s) PO QPM 07/06/2016 07/07/2016 Inactive OKAY TO DISPENSE GENERIC losartan 25 mg tablet RxNorm: 208092 1 Tablet(s) PO daily 07/06/2016 07/07/2016 Inactive naproxen 500 mg tablet RxNorm: 514461 1 Tablet(s) PO BID No Start Date Active Parafon Forte DSC 500 mg tablet RxNorm: 164869 1 Tablet(s) PO QID No Start Date Active glimepiride 4 mg tablet RxNorm: 413132 1 Tablet(s) PO daily No Start Date 11/16/2016 Inactive amlodipine 5 mg tablet RxNorm: 789061 1 Tablet(s) PO daily No Start Date 08/02/2016 Inactive metoprolol tartrate 50 mg tablet RxNorm: 686809 1 Tablet(s) PO BID No Start Date 11/16/2016 Inactive Medication Administered Medication Codes Instructions Start Date Status Kenalog 40 mg/mL suspension for injection RxNorm: 5336455 1Milliliter 03/16/2017 Active Kenalog 40 mg/mL suspension for injection RxNorm: 8304488 Milliliter 03/12/2017 No longer Active Kenalog 40 mg/mL suspension for injection RxNorm: 2284022 1Milliliter 11/05/2016 No longer Active Immunizations No Immunization data Assessments Condition Codes Effective Dates Essential (primary) [...] Visit Reason For Visit Effective Dates Notes earache 03/16/2017 sinus congestion 03/12/2017 hypertension 02/17/2017 hypertension 01/20/2017 cough 11/17/2016 cough 11/05/2016 hypertension 09/21/2016 hypertension 08/03/2016 hypertension 07/06/2016 Results Observation Observation Code Item Item Code Result Date %Hba1C Adx997 % HbA1c 78197- 6 5.8 % 01/07/2017 %Hba1C Hsu623 Gluc Ave 120 mg/dL 01/07/2017 Urine Culture Ucult Preliminary NO Growth Day 1 09/21/2016 Urine Culture Ucult Complete NO Growth Day 2 09/21/2016 %Hba1C Imz586 % HbA1c 16172- 6 6.0 % 09/17/2016 %Hba1C Uro417 Gluc Ave 126 mg/dL 09/17/2016 Comp Metabolic Ymg872 NA 140 mEq/L 09/17/2016 Comp Metabolic Rlp093 K 4.1 mEq/L 09/17/2016 Comp Metabolic Rkx157 CL 105 mEq/L 09/17/2016 Comp Metabolic Ucm770 CO2 29.0 mEq/L 09/17/2016 Comp Metabolic Tbc265 ANION GAP 10 09/17/2016 Comp Metabolic Lmm478 GLUCOSE 89 mg/dL 09/17/2016 Comp Metabolic Asb618 Creat 0.9 mg/dL 09/17/2016 Comp Metabolic Nhx125 eGFR 65 ml/min/1.73m2 09/17/2016 Comp Metabolic Owq562 BUN 20 mg/dL 09/17/2016 Comp Metabolic Nrm621 B/C Ratio 22.2 Ratio 09/17/2016 Comp Metabolic Mdm216 CALCIUM 9.3 mg/dL 09/17/2016 Comp Metabolic Olf201 ALK PHOS 107 U/L 09/17/2016 Comp Metabolic Joe003 AST(SGOT) 22 U/L 09/17/2016 Comp Metabolic Emm204 ALT(SGPT) 15 U/L 09/17/2016 Comp Metabolic Hvy052 BILI T 0.7 mg/dL 09/17/2016 Comp Metabolic Kwk448 ALBUMIN 4.0 g/dL 09/17/2016 Comp Metabolic Cjd663 TPRO 6.8 g/dL 09/17/2016 Comp Metabolic Hes668 GLOB 2.8 g/dL 09/17/2016 Comp Metabolic Dob444 A/G Ratio 1.4 Ratio 09/17/2016 Comp Metabolic Awj535 Osmo 281 mOsmo 09/17/2016 Microalbumin Gwe851 MicroAlb 44.3 mg/dL 09/17/2016 Tsh Ord6 hTSH [...] 29.0 pg 09/17/2016 Cbc With Differential Ord2 [place]% 8.1 % 09/17/2016 Cbc With Differential Ord2 [...] 1.78 K/ul 09/17/2016 Cbc With Differential Ord2 [place] ABS# 0.6 K/ul 09/17/2016 Cbc With Differential Ord2 Eos ABS# 0.2 K/ul 09/17/2016 Cbc With Differential Ord2 Baso ABS# 0.0 K/ul 09/17/2016 Lipid Ord30 CHOL 136 mg/dL 09/17/2016 Lipid Ord30 HDL 50.0 mg/dl 09/17/2016 Lipid Ord30 TRIG 70 mg/dL 09/17/2016 Lipid Ord30 LDL 72 mg/dL 09/17/2016 Lipid Ord30 C/HDL 2.7 Ratio 09/17/2016 Review of Systems System Result Effective Dates Constitutional No recent illness 03/16/2017 Constitutional No [...] Result Effective Dates Notes Full Exam - ENT Constitutional general appearance [...] lips 11/05/2016 None Full Exam - General 1995 Ears/Nose/Throat lips/teeth/gingiva Overall: normal dentition 11/05/2016 None [...] Procedure Codes Date THER/PROPH/DIAG INJ SC/IM CPT-4: 98011Wevwjwv 03/16/2017 TRIAMCINOLONE ACET INJ NOS CPT-4: Z4372Tylqiat 03/16/2017 THER/PROPH/DIAG INJ SC/IM CPT-4: 03519Fwaacik 03/12/2017 TRIAMCINOLONE ACET INJ NOS CPT-4: E3822Agcwnbz 03/12/2017 THER/PROPH/DIAG INJ SC/IM CPT-4: 10085Ylmhutr 11/05/2016 TRIAMCINOLONE ACET INJ NOS CPT-4: Y2306Hucgofa 11/05/2016 URINALYSIS NONAUTO W/O SCOPE CPT-4: 02882[place] 09/18/2016 Vital Signs Date Vital 03/16/2017 Blood Pressure 1: 140/80 Code: 8480-6 BMI: 34.0 Code: 80022-0 Heart Rate 1: 70 bpm Height: 5'7" SpO2: 95% Weight: 217 lbs 03/12/2017 Blood Pressure 1: 142/80 Code: 8480-6 BMI: 34.0 Code: 03246-3 Heart Rate 1: 76 bpm Height: 5'7" SpO2: 92% Weight: 217 lbs 02/17/2017 Blood Pressure 1: 162/64 Code: 8480-6 BMI: 32.9 Code: 24416-9 Heart Rate 1: 59 bpm Height: 5'7" SpO2: 97% Weight: 210 lbs 01/20/2017 Blood Pressure 1: 162/74 Code: 8480-6 BMI: 32.9 Code: 02024-1 Heart Rate 1: 56 bpm Height: 5'7" SpO2: 98% Weight: 210 lbs 11/17/2016 Blood Pressure 1: 156/60 Code: 8480-6 BMI: 34.8 Code: 96146-7 Heart Rate 1: 63 bpm Height: 5'7" SpO2: 96% Weight: 222 lbs 11/05/2016 Blood Pressure 1: 160/68 Code: 8480-6 BMI: 34.5 Code: 25399-3 Heart Rate 1: 66 bpm Height: 5'7" SpO2: 97% Temperature: 36.9 (C) / 98.5 (F) Weight: 220 lbs 09/21/2016 Blood Pressure 1: 180/72 Code: 8480-6 Blood Pressure 1: 166/72 Code: 8480-6 BMI: 32.1 Code: 08012-4 Heart Rate 1: 57 bpm Height: 5'7" SpO2: 98% Weight: 205 lbs 09/16/2016 Blood Pressure 1: 168/70 Code: 8480-6 Heart Rate 1: 49 bpm SpO2: 95% 08/03/2016 Blood Pressure 1: 162/70 Code: 8480-6 BMI: 32.0 Code: 85867-7 Heart Rate 1: 43 bpm Height: 5'7" SpO2: 98% Weight: 204 lbs 07/06/2016 Blood Pressure 1: 170/86 Code: 8480-6 BMI: 32.0 Code: 57655-5 Heart Rate 1: 48 bpm Height: 5'7" SpO2: 97% Weight: 204 lbs Functional Status No Functional Status data History of Present Illness Symptom Name Status Result Effective Date Notes earache Quality acute 03/16/2017 None hypertension Quality [...] data Encounters Encounter Performer Location Codes Date ([id number]) 27951 EST. PATIENT, LEVEL IV Diagnosis: Type 2 diabetes mellitus without complications[ICD10: E11.9] Diagnosis: Otalgia, bilateral[ICD10: H92.03] Diagnosis: Essential (primary) hypertension[ICD10: I10] Diagnosis: Other allergic rhinitis[ICD10: J30.89] Fifi Camejo MD, [facility] CPT-4: 64217 03/16/2017 [id number] EST. PATIENT, LEVEL IV Diagnosis: Other acute sinusitis[ICD10: J01.80] Diagnosis: Acute suppurative otitis media without spontaneous rupture of ear drum, bilateral[ICD10: H66.003] Diagnosis: Other allergic rhinitis[ICD10: J30.89] Krysta Camejo MD [facility] CPT- 4: 53320 03/12/2017 ([id number]) 13538 EST. PATIENT, LEVEL IV Diagnosis: Essential (primary) hypertension[ICD10: I10] Diagnosis: Type 2 diabetes mellitus without complications[ICD10: E11.9] Fifi Camejo MD [facility] CPT-4: 07150 02/17/2017 ([id number]) 42582 EST. PATIENT, LEVEL IV Diagnosis: Essential (primary) hypertension[ICD10: I10] Diagnosis: Type 2 diabetes mellitus without complications[ICD10: E11.9] Fifi Camejo MD [facility] CPT-4: 36354 01/20/2017 ([id number]) 48237 EST. PATIENT, LEVEL IV Diagnosis: Essential (primary) hypertension[ICD10: I10] Diagnosis: Type 2 diabetes mellitus without complications[ICD10: E11.9] Diagnosis: Gastro-esophageal reflux disease without esophagitis[ICD10: K21.9] Fifi Camejo MD [facility] CPT-4: 14517 11/17/2016 ([id number]) 28206 EST. PATIENT, LEVEL III Diagnosis: Acute bronchitis due to other specified organisms[ICD10: J20.8] Diagnosis: Cough[ICD10: R05] Fifi Camejo MD [facility] CPT-4: 82929 11/05/2016 ([id number]) 55207 EST. PATIENT, LEVEL IV Diagnosis: Essential (primary) hypertension[ICD10: I10] Diagnosis: Type 2 diabetes mellitus without complications[ICD10: E11.9] Fifi Camejo MD [facility] CPT-4: 53561 09/21/2016 ([id number]) Miscellaneous no charge Diagnosis: Essential (primary) hypertension[ICD10: I10] Fifi Camejo MD [facility] CPT-4: 78905 09/16/2016 ([id number]) 15851 EST. PATIENT, LEVEL III Diagnosis: Type 2 diabetes mellitus without complications[ICD10: E11.9] Diagnosis: Essential (primary) hypertension[ICD10: I10] [facility] CPT-4: 62585 08/03/2016 ([id number]) OFFICE VISIT, NEW - LEVEL 4 Diagnosis: Essential (primary) hypertension[ICD10: I10] Diagnosis: Type 2 diabetes mellitus without complications[ICD10: E11.9] Diagnosis: Carpal tunnel syndrome, left upper limb[ICD10: G56.02] Diagnosis: Right upper quadrant pain[ICD10: R10.11] Diagnosis: Mixed hyperlipidemia[ICD10: E78.2] [facility] CPT- 4: 65189 07/06/2016 Plan of Care Planned Activity Notes Codes Status Date Visit Plan: Diabetes Mellitus - controlled - [...] have a referral to dr. calvo - [place] sometime after March 24Hypertension - well controlled - continue with current medications, continue with no added salt diet. Pt has been encouraged to exercise daily.The pt has been advised to call the office if there are any acute concerns about change in blood pressure readings at home. 03/16/2017 Patient Education: Patient Medication Summary Completed 03/16/2017 Patient Education: Obesity Completed 03/16/2017 Care Plan: Referral Order SNOMED-CT : [id number] Pending 03/16/2017 Visit Plan: Allergies - chronic [...] worsen. 03/12/2017 [phone] [facility] (15 min) Moderate 03/12/2017 Patient Education: [...] controlled. 02/17/2017 [phone] [facility] ([facility] min) Complex 02/17/2017 Patient Education: [...] controlled. 01/20/2017 Appointment: Fifi Camejo WPtel: [phone] [facility] (30 min) Complex 01/20/2017 Patient Education: Patient [...] dexilant 11/17/2016 Appointment: Fifi Camejo WPtel: [phone] [facility] (30 min) Complex 11/17/2016 Patient Education: Patient [...] range. 09/21/2016 App[facility]ment[phone] [facility] ([facility] min) Moderate 09/21/2016 Patient Education: [...] time. 08/03/2016 App[phone] [facility] (15 min) Moderate 08/03/2016 Patient Education: Patient [...] improving. 07/06/2016 Appointment: Fif[facility] Camejo [facility] New Patient 07/06/2016 Patient Education: Patient [...] [facility] Hypertension - [...] not improved, or if symptoms acutely worsen. Kenalog shot today. Flonase nasal spray twice [...]
--- OUTSIDE RECORDS SUMMARY | 2019-03-08 15:52 | XMS REPORT | CCD ---
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 Name Role Phone PP Unavailable CCM Unavailable Summary Purpose Interface Exchange Insurance Providers Payer name Policy type / Coverage type Covered democrat ID Effective Begin Date Effective End Date WPS Medicare Part B Medicare Part B [id number] Unknown Unknown FOR LIFE WPS Medicare Part B [id number] Unknown Unknown Family history Brother Diagnosis Age At Onset Diabetes mellitus Type 2 Unknown Heart Attack Unknown Social History Social History Element Codes Description Effective Dates Marital status Unknown Wu 11/05/2016 Number of children Unknown 1 07/06/2016 Employment Unknown Retired 07/06/[address]: 543977358 Never smoker 07/06/[address]: 923645085 Never drinks alcohol 07/06/2016 Allergies, Adverse Reactions, Alerts Substance Reaction Codes Entered Date Inactivated Date Status 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 Unknown 01/20/2017 No Inactive Date Active Past Medical History Illness Codes Condition Status Onset Date Resolved Date Acute suppurative otitis media without spontaneous rupture of ear drum, bilateral ICD-9: 381.00 ICD-10: H66.003 Active 03/12/2017 Unknown Other acute sinusitis ICD- 9: 461.8 ICD-10: J01.80 Active 03/12/2017 Unknown Other allergic rhinitis ICD-9: 477.8 ICD-10: J30.89 Active 03/12/2017 Unknown Essential (primary) hypertension ICD-9: 401.1 ICD-10: I10 Active 09/20/2016 Unknown Gastro-esophageal reflux disease without esophagitis ICD-9: 530.81 ICD-10: K21.9 Active 11/17/2016 Unknown Type 2 diabetes mellitus without complications ICD-9: 250.00 ICD-10: E11.9 Active 09/20/2016 Unknown Diabetes Unknown Active 01/20/2017 Unknown Acute [...] Problems Condition Codes Effective Dates Condition Status Acute suppurative otitis media without spontaneous rupture of ear drum, bilateral ICD-9: 381.00 ICD-10: H66.003 03/12/2017 Active Other acute sinusitis ICD- 9: 461.8 ICD-10: J01.80 03/12/2017 Active Other allergic rhinitis ICD-9: 477.8 ICD-10: J30.89 03/12/2017 Active Essential (primary) hypertension ICD-9: 401.1 ICD-10: I10 09/20/2016 Active Gastro-esophageal reflux disease without esophagitis ICD-9: 530.81 ICD-10: K21.9 11/17/2016 Active Type 2 diabetes mellitus without complications ICD-9: 250.00 ICD-10: E11.9 09/20/2016 Active Diabetes Unknown 01/20/2017 Active Acute bronchitis [...] Kenalog 40 mg/mL suspension for injection RxNorm: 3347264 Milliliter(s) Inj 03/12/2017 03/12/2017 Inactive Zithromax Z-Juan 250 mg tablet RxNorm: 045225 1 Tablet(s) PO daily 03/11/2017 03/15/2017 Inactive zpack as directed Zithromax Z-Juan 250 mg tablet RxNorm: 579272 1 Tablet(s) PO daily 03/11/2017 03/10/2017 Inactive zpack as directed doxazosin 4 mg tablet RxNorm: 008870 1.5 Tablet(s) PO BID 02/12/2017 No Stop Date Active fluticasone 50 mcg/actuation nasal spray,suspension RxNorm: 3442271 1 SPRAY NASAL BID 02/05/2017 No Stop Date Active metoprolol tartrate 75 mg tablet RxNorm: 3225044 1 Tablet(s) PO BID 01/29/2017 01/23/2018 Active metoprolol tartrate 75 mg tablet RxNorm: 9859987 1 Tablet(s) PO BID 01/29/2017 01/28/2017 Inactive doxazosin 4 mg tablet RxNorm: 330296 1 Tablet(s) PO BID 01/20/2017 02/11/2017 Inactive pantoprazole 40 mg tablet,delayed release RxNorm: 744199 1 Tablet(s) PO daily 12/24/2016 01/19/2017 Inactive pantoprazole 40 mg tablet,delayed release RxNorm: 009414 1 Tablet(s) PO daily 12/24/2016 12/23/2016 Inactive alprazolam 0.5 mg tablet RxNorm: 595073 1 Tablet(s) PO TID as needed anxiety 12/03/2016 04/01/2017 Active fluticasone 50 mcg/actuation nasal spray,suspension RxNorm: 1796219 1 [place] NASAL BID 11/25/2016 12/24/2016 Inactive Dexilant 60 mg capsule, delayed release RxNorm: 098561 1 Capsule(s) PO daily 11/25/2016 11/24/2016 Inactive fluticasone 50 mcg/actuation nasal spray,suspension RxNorm: 4318512 1 [place] NASAL BID 11/25/2016 11/24/2016 Inactive fluticasone 50 mcg/actuation nasal spray,suspension RxNorm: 8069374 1 [place] NASAL BID 11/25/2016 11/24/2016 Inactive Dexilant 60 mg capsule, delayed release RxNorm: 611573 1 Capsule(s) PO daily 11/25/2016 12/23/2016 Inactive ProAir RespiClick 90 mcg/actuation breath activated RxNorm: 4232092 1 INH bid and QID as needed 11/19/2016 05/17/2017 Active Please send STAT glimepiride 4 mg tablet RxNorm: 648551 1 Tablet(s) PO daily 11/19/2016 11/13/2017 Active Flonase Allergy Relief 50 mcg/actuation nasal spray,suspension RxNorm: 5611103 1 [place] NASAL BID 11/19/2016 11/24/2016 Inactive metoprolol tartrate 50 mg tablet RxNorm: 412639 1 Tablet(s) PO BID 11/19/2016 01/28/2017 Inactive Flonase Allergy Relief 50 mcg/actuation nasal spray,suspension RxNorm: 5224023 1 [place] NASAL BID 11/17/2016 11/18/2016 Inactive metoprolol tartrate 50 mg tablet RxNorm: 674422 1 Tablet(s) PO BID 11/17/2016 11/18/2016 Inactive ProAir RespiClick 90 mcg/actuation breath activated RxNorm: 3364663 1 INH bid and QID as needed 11/17/2016 11/16/2016 Inactive glimepiride 4 mg tablet RxNorm: 037383 1 Tablet(s) PO daily 11/17/2016 11/18/2016 Inactive ProAir RespiClick 90 mcg/actuation breath activated RxNorm: 3283542 1 INH bid and QID as needed 11/17/2016 11/18/2016 Inactive Please send STAT Kenalog 40 mg/mL suspension for injection RxNorm: 9767949 1 Milliliter(s) Inj 11/05/2016 11/05/2016 Inactive azithromycin 250 mg tablet RxNorm: 228267 Tablet(s) PO 2 tabs on day #1, then daily x 4 days 11/05/2016 12/23/2016 Inactive doxazosin 4 mg tablet RxNorm: 850891 1 Tablet(s) PO QPM 10/02/2016 01/19/2017 Inactive doxazosin 4 mg tablet RxNorm: 799435 1 Tablet(s) PO QPM 09/29/2016 10/01/2016 Inactive doxazosin 4 mg tablet RxNorm: 895628 1 Tablet(s) PO QPM 09/21/2016 09/28/2016 Inactive Cipro 500 mg tablet RxNorm: 778716 1 Tablet(s) PO BID 09/18/2016 09/17/2016 Inactive Cipro 500 mg tablet RxNorm: 957946 1 Tablet(s) PO BID 09/18/2016 09/24/2016 Inactive losartan 100 mg tablet RxNorm: 736694 1 Tablet(s) PO daily for high blood pressure 09/16/2016 09/10/2017 Active losartan 100 mg tablet RxNorm: 150741 1 Tablet(s) PO daily for high blood pressure 09/16/2016 09/15/2016 Inactive alprazolam 0.5 mg tablet RxNorm: 057063 1 Tablet(s) PO TID as needed anxiety 09/16/2016 11/14/2016 Inactive amlodipine 10 mg tablet RxNorm: 391686 1 Tablet(s) PO daily 08/03/2016 07/28/2017 Active Zyrtec 10 mg tablet RxNorm: 4474997 1 Tablet(s) PO daily 08/03/2016 09/15/2016 Inactive Lipitor 10 mg tablet RxNorm: 674258 1 Tablet(s) PO QPM 07/08/2016 07/17/2016 Inactive OKAY TO DISPENSE GENERIC losartan 25 mg tablet RxNorm: 784394 1 Tablet(s) PO daily 07/08/2016 09/15/2016 Inactive Lipitor 10 mg tablet RxNorm: 095020 1 Tablet(s) PO QPM 07/06/2016 07/07/2016 Inactive OKAY TO DISPENSE GENERIC losartan 25 mg tablet RxNorm: 616247 1 Tablet(s) PO daily 07/06/2016 07/07/2016 Inactive naproxen 500 mg tablet RxNorm: 998115 1 Tablet(s) PO BID No Start Date Active Parafon Forte DSC 500 mg tablet RxNorm: 850458 1 Tablet(s) PO QID No Start Date Active glimepiride 4 mg tablet RxNorm: 342252 1 Tablet(s) PO daily No Start Date 11/16/2016 Inactive amlodipine 5 mg tablet RxNorm: 590120 1 Tablet(s) PO daily No Start Date 08/02/2016 Inactive metoprolol tartrate 50 mg tablet RxNorm: 509767 1 Tablet(s) PO BID No Start Date 11/16/2016 Inactive Medication Administered Medication Codes Instructions Start Date Status Kenalog 40 mg/mL suspension for injection RxNorm: 0451729 Milliliter 03/12/2017 No longer Active Kenalog 40 mg/mL suspension for injection RxNorm: 8962892 1Milliliter 11/05/2016 No longer Active Immunizations No Immunization data Assessments Condition Codes Effective Dates Acute suppurative otitis media without spontaneous rupture of ear drum, bilateral ICD-10: H66.003 ICD-9: 381.00 03/12/2017 Other acute sinusitis ICD-10: J01.80 ICD-9: 461.8 03/12/2017 Other allergic rhinitis ICD-10: J30.89 ICD-9: 477.8 03/12/2017 Essential (primary) hypertension ICD-10: I10 ICD-9: 401.1 02/17/2017 Type 2 diabetes mellitus without complications ICD-10: E11.9 ICD-9: 250.00 02/17/2017 Gastro-esophageal reflux disease without esophagitis ICD-10: K21.9 [...] Visit Reason For Visit Effective Dates Notes sinus congestion 03/12/2017 hypertension 02/17/2017 hypertension 01/20/2017 cough 11/17/2016 cough 11/05/2016 hypertension 09/21/2016 hypertension 08/03/2016 hypertension 07/06/2016 Results Observation Observation Code Item Item Code Result Date %Hba1C Pdz121 % HbA1c 00400- 6 5.8 % 01/07/2017 %Hba1C Xgd245 Gluc Ave 120 mg/dL 01/07/2017 Urine Culture Ucult Preliminary NO Growth Day 1 09/21/2016 Urine Culture Ucult Complete NO Growth Day 2 09/21/2016 %Hba1C Fwd443 % HbA1c 85309- 6 6.0 % 09/17/2016 %Hba1C Wjt402 Gluc Ave 126 mg/dL 09/17/2016 Comp Metabolic Ewh243 NA 140 mEq/L 09/17/2016 Comp Metabolic Aut618 K 4.1 mEq/L 09/17/2016 Comp Metabolic Kme454 CL 105 mEq/L 09/17/2016 Comp Metabolic Jpw390 CO2 29.0 mEq/L 09/17/2016 Comp Metabolic Ynz493 ANION GAP 10 09/17/2016 Comp Metabolic Mey708 GLUCOSE 89 mg/dL 09/17/2016 Comp Metabolic Wbk198 Creat 0.9 mg/dL 09/17/2016 Comp Metabolic Hil206 eGFR 65 ml/min/1.73m2 09/17/2016 Comp Metabolic Xqy293 BUN 20 mg/dL 09/17/2016 Comp Metabolic Pjf985 B/C Ratio 22.2 Ratio 09/17/2016 Comp Metabolic Cyb637 CALCIUM 9.3 mg/dL 09/17/2016 Comp Metabolic Azf244 ALK PHOS 107 U/L 09/17/2016 Comp Metabolic Isk883 AST(SGOT) 22 U/L 09/17/2016 Comp Metabolic Fwy741 ALT(SGPT) 15 U/L 09/17/2016 Comp Metabolic Ydz626 BILI T 0.7 mg/dL 09/17/2016 Comp Metabolic Wvf273 ALBUMIN 4.0 g/dL 09/17/2016 Comp Metabolic Soy319 TPRO 6.8 g/dL 09/17/2016 Comp Metabolic Hik097 GLOB 2.8 g/dL 09/17/2016 Comp Metabolic Uqb385 A/G Ratio 1.4 Ratio 09/17/2016 Comp Metabolic Icx424 Osmo 281 mOsmo 09/17/2016 Microalbumin Pru903 MicroAlb 44.3 mg/dL 09/17/2016 Tsh Ord6 hTSH [...] 29.0 pg 09/17/2016 Cbc With Differential Ord2 [place]% 8.1 % 09/17/2016 Cbc With Differential Ord2 [...] 1.78 K/ul 09/17/2016 Cbc With Differential Ord2 [place] ABS# 0.6 K/ul 09/17/2016 Cbc With Differential Ord2 Eos ABS# 0.2 K/ul 09/17/2016 Cbc With Differential Ord2 Baso ABS# 0.0 K/ul 09/17/2016 Lipid Ord30 CHOL 136 mg/dL 09/17/2016 Lipid Ord30 HDL 50.0 mg/dl 09/17/2016 Lipid Ord30 TRIG 70 mg/dL 09/17/2016 Lipid Ord30 LDL 72 mg/dL 09/17/2016 Lipid Ord30 C/HDL 2.7 Ratio 09/17/2016 Review of Systems System Result Effective Dates Constitutional No recent illness 03/12/2017 Constitutional No [...] None Full Exam - General 1995 Ears/Nose/Throat otoscopic exam Overall: tympanic membranes clear [...] Procedure Codes Date THER/PROPH/DIAG INJ SC/IM CPT-4: 48120Lvsmgvm 03/12/2017 TRIAMCINOLONE ACET INJ NOS CPT-4: D0606Eqsvzjn 03/12/2017 THER/PROPH/DIAG INJ SC/IM CPT-4: 29685Bkxabkf 11/05/2016 TRIAMCINOLONE ACET INJ NOS CPT-4: H2783Qxzxwoa 11/05/2016 URINALYSIS NONAUTO W/O SCOPE CPT-4: 82851Tnofmwl 09/18/2016 Vital Signs Date Vital 03/12/2017 Blood Pressure 1: 142/80 Code: 8480-6 BMI: 34.0 Code: 65457-1 Heart Rate 1: 76 bpm Height: 5'7" SpO2: 92% Weight: 217 lbs 02/17/2017 Blood Pressure 1: 162/64 Code: 8480-6 BMI: 32.9 Code: 34338-3 Heart Rate 1: 59 bpm Height: 5'7" SpO2: 97% Weight: 210 lbs 01/20/2017 Blood Pressure 1: 162/74 Code: 8480-6 BMI: 32.9 Code: 27341-1 Heart Rate 1: 56 bpm Height: 5'7" SpO2: 98% Weight: 210 lbs 11/17/2016 Blood Pressure 1: 156/60 Code: 8480-6 BMI: 34.8 Code: 09986-6 Heart Rate 1: 63 bpm Height: 5'7" SpO2: 96% Weight: 222 lbs 11/05/2016 Blood Pressure 1: 160/68 Code: 8480-6 BMI: 34.5 Code: 51349-6 Heart Rate 1: 66 bpm Height: 5'7" SpO2: 97% Temperature: 36.9 (C) / 98.5 (F) Weight: 220 lbs 09/21/2016 Blood Pressure 1: 180/72 Code: 8480-6 Blood Pressure 1: 166/72 Code: 8480-6 BMI: 32.1 Code: 54561-8 Heart Rate 1: 57 bpm Height: 5'7" SpO2: 98% Weight: 205 lbs 09/16/2016 Blood Pressure 1: 168/70 Code: 8480-6 Heart Rate 1: 49 bpm SpO2: 95% 08/03/2016 Blood Pressure 1: 162/70 Code: 8480-6 BMI: 32.0 Code: 70552-3 Heart Rate 1: 43 bpm Height: 5'7" SpO2: 98% Weight: 204 lbs 07/06/2016 Blood Pressure 1: 170/86 Code: 8480-6 BMI: 32.0 Code: 27668-9 Heart Rate 1: 48 bpm Height: 5'7" SpO2: 97% Weight: 204 lbs Functional Status No Functional Status data History of Present Illness Symptom Name Status Result Effective Date Notes sinus congestion Location frontal sinuses 03/12/2017 None [...] data Encounters Encounter Performer Location Codes Date EST. PATIENT, LEVEL IV Diagnosis: Other acute sinusitis[ICD10: J01.80] Diagnosis: Acute suppurative otitis media without spontaneous rupture of ear drum, bilateral[ICD10: H66.003] Diagnosis: Other allergic rhinitis[ICD10: J30.89] Krysta Camejo MD, [facility] CPT- 4: 56310 03/12/2017 ([id number]) 28024 EST. PATIENT, LEVEL IV Diagnosis: Essential (primary) hypertension[ICD10: I10] Diagnosis: Type 2 diabetes mellitus without complications[ICD10: E11.9] Fifi Camejo MD [facility] CPT-4: 66251 02/17/2017 ([id number]) 31123 EST. PATIENT, LEVEL IV Diagnosis: Essential (primary) hypertension[ICD10: I10] Diagnosis: Type 2 diabetes mellitus without complications[ICD10: E11.9] Fifi Camejo MD, [facility] CPT-4: 11734 01/20/2017 ([id number]) 37623 EST. PATIENT, LEVEL IV Diagnosis: Essential (primary) hypertension[ICD10: I10] Diagnosis: Type 2 diabetes mellitus without complications[ICD10: E11.9] Diagnosis: Gastro-esophageal reflux disease without esophagitis[ICD10: K21.9] Fifi Camejo MD [facility] CPT-4: 15604 11/17/2016 ([id number]) 62864 EST. PATIENT, LEVEL III Diagnosis: Acute bronchitis due to other specified organisms[ICD10: J20.8] Diagnosis: Cough[ICD10: R05] Fifi Camejo MD, [facility] CPT-4: 26379 11/05/2016 ([id number]) 47268 EST. PATIENT, LEVEL IV Diagnosis: Essential (primary) hypertension[ICD10: I10] Diagnosis: Type 2 diabetes mellitus without complications[ICD10: E11.9] Fifi Camejo MD [facility] CPT-4: 71300 09/21/2016 ([id number]) Miscellaneous no charge Diagnosis: Essential (primary) hypertension[ICD10: I10] Fifi Camejo MD, [facility] CPT-4: 03569 09/16/2016 ([id number]) 91622 EST. PATIENT, LEVEL III Diagnosis: Type 2 diabetes mellitus without complications[ICD10: E11.9] Diagnosis: Essential (primary) hypertension[ICD10: I10] Fifi Camejo MD, [facility] CPT-4: 94790 08/03/2016 ([id number]) OFFICE VISIT, NEW - LEVEL 4 Diagnosis: Essential (primary) hypertension[ICD10: I10] Diagnosis: Type 2 diabetes mellitus without complications[ICD10: E11.9] Diagnosis: Carpal tunnel syndrome, left upper limb[ICD10: G56.02] Diagnosis: Right upper quadrant pain[ICD10: R10.11] Diagnosis: Mixed hyperlipidemia[ICD10: E78.2] Fifi Camejo MD, [facility] CPT- 4: 18982 07/06/2016 Plan of Care Planned Activity Notes Codes Status Date Visit Plan: Allergies - chronic - recommended [...] acutely worsen. 03/12/2017 Appointment: Krysta Dale WPtel: [address] [place], [place] [phone] (15 min) Moderate 03/12/2017 Patient Education: Patient [...] controlled. 02/17/2017 App[facility]ment[facility] [phone] [id number] ([facility] min) Complex 02/17/2017 Patient [...] controlled. 01/20/2017 Appointment[facility] [phone] [id number] ([facility] min) Complex 01/20/2017 Patient [...] of dexilant 11/17/2016 Appointment[facility] [phone] [id number] ([facility] min) Complex 11/17/2016 Patient [...] 110 range. 09/21/2016 Appointment: [facility] [phone] [id number] [place] (15 min) Moderate 09/21/2016 Patient Education: Patient [...] time. 08/03/2016 Appointment[facility] [phone] [id number] (15 min) Moderate 08/03/2016 Patient [...] improving. 07/06/2016 Appointment[facility] [phone] [id number] New Patient 07/06/2016 Patient Education: Patient Medication Summary Completed 07/06/2016 Patient Education: Obesity Completed 07/06/2016 Instructions Comment take the doxazosin to 4mg [...] change in plan at this time. . Hypertension - uncontrolled - the patient's [...]
--- OUTSIDE RECORDS SUMMARY | 2019-03-08 15:53 | XMS REPORT | CCD ---
Author Author Fifi Camejo Organization Fifi Camejo MD, [facility] Address [address] [place] [address] Phone Care Team Providers Care Tube Cutter Name Role Phone PP Unavailable CCM Unavailable Summary Purpose Interface Exchange Insurance Providers Payer name Policy type / Coverage type Covered libertarian ID Effective Begin Date Effective End Date WPS Medicare Part B Medicare Part B [id number] Unknown Unknown FOR LIFE WPS Medicare Part B [id number] Unknown Unknown Family history Brother Diagnosis Age At Onset Diabetes mellitus Type 2 Unknown Heart Attack Unknown Social History Social History Element Codes Description Effective Dates Marital status Unknown Wu 11/05/2016 Number of children Unknown 1 07/06/2016 Employment Unknown Retired 07/06/[address]: 122992560 Never smoker 07/06/[address]: 175646179 Never drinks alcohol 07/06/2016 Allergies, Adverse Reactions, [...] Kenalog 40 mg/mL suspension for injection RxNorm: 6085314 Milliliter(s) Inj 03/12/2017 03/12/2017 Inactive Zithromax Z-Juan 250 mg tablet RxNorm: 725485 1 Tablet(s) PO daily 03/11/2017 03/15/2017 Active zpack as directed Zithromax Z-Juan 250 mg tablet RxNorm: 174310 1 Tablet(s) PO daily 03/11/2017 03/10/2017 Inactive zpack as directed doxazosin 4 mg tablet RxNorm: 490362 1.5 Tablet(s) PO BID 02/12/2017 No Stop Date Active fluticasone 50 mcg/actuation nasal spray,suspension RxNorm: 7659813 1 SPRAY NASAL BID 02/05/2017 No Stop Date Active metoprolol tartrate 75 mg tablet RxNorm: 9199264 1 Tablet(s) PO BID 01/29/2017 01/23/2018 Active metoprolol tartrate 75 mg tablet RxNorm: 8809537 1 Tablet(s) PO BID 01/29/2017 01/28/2017 Inactive doxazosin 4 mg tablet RxNorm: 658495 1 Tablet(s) PO BID 01/20/2017 02/11/2017 Inactive pantoprazole 40 mg tablet,delayed release RxNorm: 174537 1 Tablet(s) PO daily 12/24/2016 01/19/2017 Inactive pantoprazole 40 mg tablet,delayed release RxNorm: 338398 1 Tablet(s) PO daily 12/24/2016 12/23/2016 Inactive alprazolam 0.5 mg tablet RxNorm: 137844 1 Tablet(s) PO TID as needed anxiety 12/03/2016 04/01/2017 Active fluticasone 50 mcg/actuation nasal spray,suspension RxNorm: 9315396 1 [place] NASAL BID 11/25/2016 12/24/2016 Inactive Dexilant 60 mg capsule, delayed release RxNorm: 371893 1 Capsule(s) PO daily 11/25/2016 11/24/2016 Inactive fluticasone 50 mcg/actuation nasal spray,suspension RxNorm: 6888742 1 [place] NASAL BID 11/25/2016 11/24/2016 Inactive fluticasone 50 mcg/actuation nasal spray,suspension RxNorm: 7121903 1 [place] NASAL BID 11/25/2016 11/24/2016 Inactive Dexilant 60 mg capsule, delayed release RxNorm: 130666 1 Capsule(s) PO daily 11/25/2016 12/23/2016 Inactive ProAir RespiClick 90 mcg/actuation breath activated RxNorm: 1062947 1 INH bid and QID as needed 11/19/2016 05/17/2017 Active Please send STAT glimepiride 4 mg tablet RxNorm: 040945 1 Tablet(s) PO daily 11/19/2016 11/13/2017 Active Flonase Allergy Relief 50 mcg/actuation nasal spray,suspension RxNorm: 2134433 1 [place] NASAL BID 11/19/2016 11/24/2016 Inactive metoprolol tartrate 50 mg tablet RxNorm: 210090 1 Tablet(s) PO BID 11/19/2016 01/28/2017 Inactive Flonase Allergy Relief 50 mcg/actuation nasal spray,suspension RxNorm: 5418732 1 [place] NASAL BID 11/17/2016 11/18/2016 Inactive metoprolol tartrate 50 mg tablet RxNorm: 665499 1 Tablet(s) PO BID 11/17/2016 11/18/2016 Inactive ProAir RespiClick 90 mcg/actuation breath activated RxNorm: 8187055 1 INH bid and QID as needed 11/17/2016 11/16/2016 Inactive glimepiride 4 mg tablet RxNorm: 451849 1 Tablet(s) PO daily 11/17/2016 11/18/2016 Inactive ProAir RespiClick 90 mcg/actuation breath activated RxNorm: 8229218 1 INH bid and QID as needed 11/17/2016 11/18/2016 Inactive Please send STAT Kenalog 40 mg/mL suspension for injection RxNorm: 4965626 1 Milliliter(s) Inj 11/05/2016 11/05/2016 Inactive azithromycin 250 mg tablet RxNorm: 625043 Tablet(s) PO 2 tabs on day #1, then daily x 4 days 11/05/2016 12/23/2016 Inactive doxazosin 4 mg tablet RxNorm: 531418 1 Tablet(s) PO QPM 10/02/2016 01/19/2017 Inactive doxazosin 4 mg tablet RxNorm: 945433 1 Tablet(s) PO QPM 09/29/2016 10/01/2016 Inactive doxazosin 4 mg tablet RxNorm: 449013 1 Tablet(s) PO QPM 09/21/2016 09/28/2016 Inactive Cipro 500 mg tablet RxNorm: 875812 1 Tablet(s) PO BID 09/18/2016 09/17/2016 Inactive Cipro 500 mg tablet RxNorm: 705539 1 Tablet(s) PO BID 09/18/2016 09/24/2016 Inactive losartan 100 mg tablet RxNorm: 359734 1 Tablet(s) PO daily for high blood pressure 09/16/2016 09/10/2017 Active losartan 100 mg tablet RxNorm: 061457 1 Tablet(s) PO daily for high blood pressure 09/16/2016 09/15/2016 Inactive alprazolam 0.5 mg tablet RxNorm: 249459 1 Tablet(s) PO TID as needed anxiety 09/16/2016 11/14/2016 Inactive amlodipine 10 mg tablet RxNorm: 854433 1 Tablet(s) PO daily 08/03/2016 07/28/2017 Active Zyrtec 10 mg tablet RxNorm: 6685092 1 Tablet(s) PO daily 08/03/2016 09/15/2016 Inactive Lipitor 10 mg tablet RxNorm: 590458 1 Tablet(s) PO QPM 07/08/2016 07/17/2016 Inactive OKAY TO DISPENSE GENERIC losartan 25 mg tablet RxNorm: 172479 1 Tablet(s) PO daily 07/08/2016 09/15/2016 Inactive Lipitor 10 mg tablet RxNorm: 593495 1 Tablet(s) PO QPM 07/06/2016 07/07/2016 Inactive OKAY TO DISPENSE GENERIC losartan 25 mg tablet RxNorm: 715967 1 Tablet(s) PO daily 07/06/2016 07/07/2016 Inactive naproxen 500 mg tablet RxNorm: 873619 1 Tablet(s) PO BID No Start Date Active Parafon Forte DSC 500 mg tablet RxNorm: 461303 1 Tablet(s) PO QID No Start Date Active glimepiride 4 mg tablet RxNorm: 575499 1 Tablet(s) PO daily No Start Date 11/16/2016 Inactive amlodipine 5 mg tablet RxNorm: 879450 1 Tablet(s) PO daily No Start Date 08/02/2016 Inactive metoprolol tartrate 50 mg tablet RxNorm: 195683 1 Tablet(s) PO BID No Start Date 11/16/2016 Inactive Medication Administered Medication Codes Instructions Start Date Status Kenalog 40 mg/mL suspension for injection RxNorm: 9066793 Milliliter 03/12/2017 No longer Active Kenalog 40 mg/mL suspension for injection RxNorm: 2852552 1Milliliter 11/05/2016 No longer Active Immunizations No [...] Code Item Item Code Result Date %Hba1C Alv599 % HbA1c 38803- 6 5.8 % 01/07/2017 %Hba1C Rfk174 Gluc Ave 120 mg/dL 01/07/2017 Urine Culture Ucult Preliminary NO Growth Day 1 09/21/2016 Urine Culture Ucult Complete NO Growth Day 2 09/21/2016 %Hba1C Koi097 % HbA1c 25016- 6 6.0 % 09/17/2016 %Hba1C Wyp892 Gluc Ave 126 mg/dL 09/17/2016 Comp Metabolic Pvb504 NA 140 mEq/L 09/17/2016 Comp Metabolic Unj190 K 4.1 mEq/L 09/17/2016 Comp Metabolic Hpv485 CL 105 mEq/L 09/17/2016 Comp Metabolic Ocj102 CO2 29.0 mEq/L 09/17/2016 Comp Metabolic Zmh071 ANION GAP 10 09/17/2016 Comp Metabolic Otj478 GLUCOSE 89 mg/dL 09/17/2016 Comp Metabolic Ger498 Creat 0.9 mg/dL 09/17/2016 Comp Metabolic Ykg614 eGFR 65 ml/min/1.73m2 09/17/2016 Comp Metabolic Izg707 BUN 20 mg/dL 09/17/2016 Comp Metabolic Hau517 B/C Ratio 22.2 Ratio 09/17/2016 Comp Metabolic Dtg609 CALCIUM 9.3 mg/dL 09/17/2016 Comp Metabolic Xqs344 ALK PHOS 107 U/L 09/17/2016 Comp Metabolic Cud591 AST(SGOT) 22 U/L 09/17/2016 Comp Metabolic Ool649 ALT(SGPT) 15 U/L 09/17/2016 Comp Metabolic Ygn278 BILI T 0.7 mg/dL 09/17/2016 Comp Metabolic Zkl561 ALBUMIN 4.0 g/dL 09/17/2016 Comp Metabolic Kwi856 TPRO 6.8 g/dL 09/17/2016 Comp Metabolic Qzu425 GLOB 2.8 g/dL 09/17/2016 Comp Metabolic Qfv725 A/G Ratio 1.4 Ratio 09/17/2016 Comp Metabolic Cnb519 Osmo 281 mOsmo 09/17/2016 Microalbumin Eem496 MicroAlb 44.3 mg/dL 09/17/2016 Tsh Ord6 hTSH [...] 29.0 pg 09/17/2016 Cbc With Differential Ord2 [place]% 8.1 % 09/17/2016 Cbc With Differential Ord2 [...] 1.78 K/ul 09/17/2016 Cbc With Differential Ord2 [place] ABS# 0.6 K/ul 09/17/2016 Cbc With Differential [...] Procedure Codes Date THER/PROPH/DIAG INJ SC/IM CPT-4: 55984Uwcubea 03/12/2017 TRIAMCINOLONE ACET INJ NOS CPT-4: Q8141Amyukos 03/12/2017 THER/PROPH/DIAG INJ SC/IM CPT-4: 94624Rrkiidw 11/05/2016 TRIAMCINOLONE ACET INJ NOS CPT-4: B3076Gzkltcp 11/05/2016 URINALYSIS NONAUTO W/O SCOPE CPT-4: 90451Pkldjbg 09/18/2016 Vital Signs Date Vital 03/12/2017 Blood Pressure 1: 142/80 Code: 8480-6 BMI: 34.0 Code: 74944-4 Heart Rate 1: 76 bpm Height: 5'7" SpO2: 92% Weight: 217 lbs 02/17/2017 Blood Pressure 1: 162/64 Code: 8480-6 BMI: 32.9 Code: 76883-0 Heart Rate 1: 59 bpm Height: 5'7" SpO2: 97% Weight: 210 lbs 01/20/2017 Blood Pressure 1: 162/74 Code: 8480-6 BMI: 32.9 Code: 00994-3 Heart Rate 1: 56 bpm Height: 5'7" SpO2: 98% Weight: 210 lbs 11/17/2016 Blood Pressure 1: 156/60 Code: 8480-6 BMI: 34.8 Code: 35087-8 Heart Rate 1: 63 bpm Height: 5'7" SpO2: 96% Weight: 222 lbs 11/05/2016 Blood Pressure 1: 160/68 Code: 8480-6 BMI: 34.5 Code: 31404-0 Heart Rate 1: 66 bpm Height: 5'7" SpO2: 97% Temperature: 36.9 (C) / 98.5 (F) Weight: 220 lbs 09/21/2016 Blood Pressure 1: 180/72 Code: 8480-6 Blood Pressure 1: 166/72 Code: 8480-6 BMI: 32.1 Code: 60310-2 Heart Rate 1: 57 bpm Height: 5'7" SpO2: 98% Weight: 205 lbs 09/16/2016 Blood Pressure 1: 168/70 Code: 8480-6 Heart Rate 1: 49 bpm SpO2: 95% 08/03/2016 Blood Pressure 1: 162/70 Code: 8480-6 BMI: 32.0 Code: 07759-8 Heart Rate 1: 43 bpm Height: 5'7" SpO2: 98% Weight: 204 lbs 07/06/2016 Blood Pressure 1: 170/86 Code: 8480-6 BMI: 32.0 Code: 85146-7 Heart Rate 1: 48 bpm Height: 5'7" [...] Other allergic rhinitis[ICD10: J30.89] Krysta Camejo MD, [facility] CPT- 4: 58225 03/12/2017 ([id number]) 79230 EST. PATIENT, LEVEL IV Diagnosis: Essential (primary) hypertension[ICD10: I10] Diagnosis: Type 2 diabetes mellitus without complications[ICD10: E11.9] Fifi Camejo MD [facility] CPT-4: 25207 02/17/2017 ([id number]) 65134 EST. PATIENT, LEVEL IV Diagnosis: Essential (primary) hypertension[ICD10: I10] Diagnosis: Type 2 diabetes mellitus without complications[ICD10: E11.9] Fifi Camejo MD, [facility] CPT-4: 41282 01/20/2017 ([id number]) 79230 EST. PATIENT, LEVEL IV Diagnosis: Essential (primary) hypertension[ICD10: I10] Diagnosis: Type 2 diabetes mellitus without complications[ICD10: E11.9] Diagnosis: Gastro-esophageal reflux disease without esophagitis[ICD10: K21.9] Fifi Camejo MD [facility] CPT-4: 20553 11/17/2016 ([id number]) 55753 EST. PATIENT, LEVEL III Diagnosis: Acute bronchitis due to other specified organisms[ICD10: J20.8] Diagnosis: Cough[ICD10: R05] Fifi Camejo MD, [facility] CPT-4: 19120 11/05/2016 ([id number]) 65748 EST. PATIENT, LEVEL IV Diagnosis: Essential (primary) hypertension[ICD10: I10] Diagnosis: Type 2 diabetes mellitus without complications[ICD10: E11.9] Fifi Camejo MD [facility] CPT-4: 46448 09/21/2016 ([id number]) Miscellaneous no charge Diagnosis: Essential (primary) hypertension[ICD10: I10] Fifi Camejo MD, [facility] CPT-4: 25207 09/16/2016 ([id number]) 23032 EST. PATIENT, LEVEL III Diagnosis: Type 2 diabetes mellitus without complications[ICD10: E11.9] Diagnosis: Essential (primary) hypertension[ICD10: I10] Fifi Camejo MD, [facility] CPT-4: 74847 08/03/2016 ([id number]) OFFICE VISIT, NEW - LEVEL 4 Diagnosis: Essential (primary) hypertension[ICD10: I10] Diagnosis: Type 2 diabetes mellitus without complications[ICD10: E11.9] Diagnosis: Carpal tunnel syndrome, left upper limb[ICD10: G56.02] Diagnosis: Right upper quadrant pain[ICD10: R10.11] Diagnosis: Mixed hyperlipidemia[ICD10: E78.2] Fifi Camejo MD, [facility] CPT- 4: 89559 07/06/2016 Plan of Care Planned Activity Notes [...] acutely worsen. 03/12/2017 Appointment: Krysta Dale WPtel: [address] [place], [place] [id number] (15 min) Moderate 03/12/2017 Patient Education: Patient [...] controlled. 02/17/2017 [facility]ment[facility] [phone] [id number] ([facility]) Complex 02/17/2017 Patient Education: [...] controlled. 01/20/2017 [facility] [phone] [id number] ([facility]) Complex 01/20/2017 Patient Education: [...] of dexilant 11/17/2016 [facility] [phone] [id number] ([facility]) Complex 11/17/2016 Patient Education: [...] range. 09/21/2016 App[facility]ment: [facility] [phone] [id number] [place] (15 min) Moderate 09/21/2016 Patient Education: [...] time. 08/03/2016 [facility]ment[facility] [phone] [id number] ([facility] min) Moderate 08/03/2016 Patient Education: [...] improving. 07/06/2016 [facility]ment: [facility] [phone] [id number] [facility] Patient 07/06/2016 Patient Education: Patient [...]
--- OUTSIDE RECORDS SUMMARY | 2019-03-08 15:54 | XMS REPORT | CCD ---
Author Author Fifi Camejo Organization Fifi Camejo MD, [facility] Address [address] [place] [address] Phone Care Team Providers Care Patch Sander Name Role Phone PP Unavailable CCM Unavailable Summary Purpose Interface Exchange Insurance Providers Payer name Policy type / Coverage type Covered constitution party ID Effective Begin Date Effective End Date WPS Medicare Part B Medicare Part B [id number] Unknown Unknown FOR LIFE WPS Medicare Part B [id number] Unknown Unknown Family history Brother Diagnosis Age At Onset Diabetes mellitus Type 2 Unknown Heart Attack Unknown Social History Social History Element Codes Description Effective Dates Marital status Unknown Wu 11/05/2016 Number of children Unknown 1 07/06/2016 Employment Unknown Retired 07/06/[address]: 959888555 Never smoker 07/06/[address]: 804394535 Never drinks alcohol 07/06/2016 Allergies, Adverse Reactions, [...] Start Date Stop Date Status Fill Instructions Zithromax Z-Juan 250 mg tablet RxNorm: 438774 1 Tablet(s) PO daily 03/11/2017 03/15/2017 Active zpack as directed Zithromax Z-Juan 250 mg tablet RxNorm: 238405 1 Tablet(s) PO daily 03/11/2017 03/10/2017 Inactive zpack as directed doxazosin 4 mg tablet RxNorm: 784473 1.5 Tablet(s) PO BID 02/12/2017 No Stop Date Active fluticasone 50 mcg/actuation nasal spray,suspension RxNorm: 5674542 1 SPRAY NASAL BID 02/05/2017 No Stop Date Active metoprolol tartrate 75 mg tablet RxNorm: 6083815 1 Tablet(s) PO BID 01/29/2017 01/23/2018 Active metoprolol tartrate 75 mg tablet RxNorm: 5847104 1 Tablet(s) PO BID 01/29/2017 01/28/2017 Inactive doxazosin 4 mg tablet RxNorm: 376180 1 Tablet(s) PO BID 01/20/2017 02/11/2017 Inactive pantoprazole 40 mg tablet,delayed release RxNorm: 453232 1 Tablet(s) PO daily 12/24/2016 01/19/2017 Inactive pantoprazole 40 mg tablet,delayed release RxNorm: 364385 1 Tablet(s) PO daily 12/24/2016 12/23/2016 Inactive alprazolam 0.5 mg tablet RxNorm: 647796 1 Tablet(s) PO TID as needed anxiety 12/03/2016 04/01/2017 Active fluticasone 50 mcg/actuation nasal spray,suspension RxNorm: 5846799 1 [place] NASAL BID 11/25/2016 12/24/2016 Inactive Dexilant 60 mg capsule, delayed release RxNorm: 961420 1 Capsule(s) PO daily 11/25/2016 11/24/2016 Inactive fluticasone 50 mcg/actuation nasal spray,suspension RxNorm: 3134318 1 [place] NASAL BID 11/25/2016 11/24/2016 Inactive fluticasone 50 mcg/actuation nasal spray,suspension RxNorm: 7180432 1 [place] NASAL BID 11/25/2016 11/24/2016 Inactive Dexilant 60 mg capsule, delayed release RxNorm: 090575 1 Capsule(s) PO daily 11/25/2016 12/23/2016 Inactive ProAir RespiClick 90 mcg/actuation breath activated RxNorm: 0695040 1 INH bid and QID as needed 11/19/2016 05/17/2017 Active Please send STAT glimepiride 4 mg tablet RxNorm: 477639 1 Tablet(s) PO daily 11/19/2016 11/13/2017 Active Flonase Allergy Relief 50 mcg/actuation nasal spray,suspension RxNorm: 9366116 1 [place] NASAL BID 11/19/2016 11/24/2016 Inactive metoprolol tartrate 50 mg tablet RxNorm: 645241 1 Tablet(s) PO BID 11/19/2016 01/28/2017 Inactive Flonase Allergy Relief 50 mcg/actuation nasal spray,suspension RxNorm: 8245039 1 [place] NASAL BID 11/17/2016 11/18/2016 Inactive metoprolol tartrate 50 mg tablet RxNorm: 277915 1 Tablet(s) PO BID 11/17/2016 11/18/2016 Inactive ProAir RespiClick 90 mcg/actuation breath activated RxNorm: 5101918 1 INH bid and QID as needed 11/17/2016 11/16/2016 Inactive glimepiride 4 mg tablet RxNorm: 920453 1 Tablet(s) PO daily 11/17/2016 11/18/2016 Inactive ProAir RespiClick 90 mcg/actuation breath activated RxNorm: 1044303 1 INH bid and QID as needed 11/17/2016 11/18/2016 Inactive Please send STAT Kenalog 40 mg/mL suspension for injection RxNorm: 1553203 1 Milliliter(s) Inj 11/05/2016 11/05/2016 Inactive azithromycin 250 mg tablet RxNorm: 223078 Tablet(s) PO 2 tabs on day #1, then daily x 4 days 11/05/2016 12/23/2016 Inactive doxazosin 4 mg tablet RxNorm: 195321 1 Tablet(s) PO QPM 10/02/2016 01/19/2017 Inactive doxazosin 4 mg tablet RxNorm: 048134 1 Tablet(s) PO QPM 09/29/2016 10/01/2016 Inactive doxazosin 4 mg tablet RxNorm: 920514 1 Tablet(s) PO QPM 09/21/2016 09/28/2016 Inactive Cipro 500 mg tablet RxNorm: 396477 1 Tablet(s) PO BID 09/18/2016 09/17/2016 Inactive Cipro 500 mg tablet RxNorm: 839374 1 Tablet(s) PO BID 09/18/2016 09/24/2016 Inactive losartan 100 mg tablet RxNorm: 966891 1 Tablet(s) PO daily for high blood pressure 09/16/2016 09/10/2017 Active losartan 100 mg tablet RxNorm: 534405 1 Tablet(s) PO daily for high blood pressure 09/16/2016 09/15/2016 Inactive alprazolam 0.5 mg tablet RxNorm: 101074 1 Tablet(s) PO TID as needed anxiety 09/16/2016 11/14/2016 Inactive amlodipine 10 mg tablet RxNorm: 561773 1 Tablet(s) PO daily 08/03/2016 07/28/2017 Active Zyrtec 10 mg tablet RxNorm: 5156086 1 Tablet(s) PO daily 08/03/2016 09/15/2016 Inactive Lipitor 10 mg tablet RxNorm: 121177 1 Tablet(s) PO QPM 07/08/2016 07/17/2016 Inactive OKAY TO DISPENSE GENERIC losartan 25 mg tablet RxNorm: 444416 1 Tablet(s) PO daily 07/08/2016 09/15/2016 Inactive Lipitor 10 mg tablet RxNorm: 889838 1 Tablet(s) PO QPM 07/06/2016 07/07/2016 Inactive OKAY TO DISPENSE GENERIC losartan 25 mg tablet RxNorm: 088980 1 Tablet(s) PO daily 07/06/2016 07/07/2016 Inactive naproxen 500 mg tablet RxNorm: 321655 1 Tablet(s) PO BID No Start Date Active Parafon Forte DSC 500 mg tablet RxNorm: 704291 1 Tablet(s) PO QID No Start Date Active glimepiride 4 mg tablet RxNorm: 591839 1 Tablet(s) PO daily No Start Date 11/16/2016 Inactive amlodipine 5 mg tablet RxNorm: 678622 1 Tablet(s) PO daily No Start Date 08/02/2016 Inactive metoprolol tartrate 50 mg tablet RxNorm: 799332 1 Tablet(s) PO BID No Start Date 11/16/2016 Inactive Medication Administered Medication Codes Instructions Start Date Status Kenalog 40 mg/mL suspension for injection RxNorm: 8090702 1Milliliter 11/05/2016 No longer Active Immunizations No [...] Visit Reason For Visit Effective Dates Notes hypertension 02/17/2017 hypertension 01/20/2017 cough 11/17/2016 cough 11/05/2016 hypertension 09/21/2016 hypertension 08/03/2016 hypertension 07/06/2016 Results Observation Observation Code Item Item Code Result Date %Hba1C Swm577 % HbA1c 57945- 6 5.8 % 01/07/2017 %Hba1C Iqt410 Gluc Ave 120 mg/dL 01/07/2017 Urine Culture Ucult Preliminary NO Growth Day 1 09/21/2016 Urine Culture Ucult Complete NO Growth Day 2 09/21/2016 %Hba1C Unp641 % HbA1c 09239- 6 6.0 % 09/17/2016 %Hba1C Zta913 Gluc Ave 126 mg/dL 09/17/2016 Comp Metabolic Nlg077 NA 140 mEq/L 09/17/2016 Comp Metabolic Luo446 K 4.1 mEq/L 09/17/2016 Comp Metabolic Wsx964 CL 105 mEq/L 09/17/2016 Comp Metabolic Xub045 CO2 29.0 mEq/L 09/17/2016 Comp Metabolic Wol706 ANION GAP 10 09/17/2016 Comp Metabolic Biw866 GLUCOSE 89 mg/dL 09/17/2016 Comp Metabolic Mtc687 Creat 0.9 mg/dL 09/17/2016 Comp Metabolic Owf083 eGFR 65 ml/min/1.73m2 09/17/2016 Comp Metabolic Sbw606 BUN 20 mg/dL 09/17/2016 Comp Metabolic Bkw234 B/C Ratio 22.2 Ratio 09/17/2016 Comp Metabolic Bin495 CALCIUM 9.3 mg/dL 09/17/2016 Comp Metabolic Hoz487 ALK PHOS 107 U/L 09/17/2016 Comp Metabolic Hph009 AST(SGOT) 22 U/L 09/17/2016 Comp Metabolic Khu240 ALT(SGPT) 15 U/L 09/17/2016 Comp Metabolic Qrz908 BILI T 0.7 mg/dL 09/17/2016 Comp Metabolic Vil895 ALBUMIN 4.0 g/dL 09/17/2016 Comp Metabolic Cfr657 TPRO 6.8 g/dL 09/17/2016 Comp Metabolic Tit919 GLOB 2.8 g/dL 09/17/2016 Comp Metabolic Zpl264 A/G Ratio 1.4 Ratio 09/17/2016 Comp Metabolic Jab101 Osmo 281 mOsmo 09/17/2016 Microalbumin Kmg827 MicroAlb 44.3 mg/dL 09/17/2016 Tsh Ord6 hTSH [...] 25.6 % 09/17/2016 Cbc With Differential Ord2 Love% 8.1 % 09/17/2016 Cbc With Differential Ord2 MCH 29.0 pg 09/17/2016 Cbc With Differential Ord2 Eos% 3.5 % 09/17/2016 Cbc With Differential Ord2 MCHC 33.3 pg 09/17/2016 Cbc With Differential Ord2 Baso% 0.4 % 09/17/2016 Cbc With Differential Ord2 PLT 242 K/ul 09/17/2016 Cbc With Differential Ord2 RDW 13.4 % 09/17/2016 Cbc With Differential Ord2 Neut ABS# 4.34 K/ul 09/17/2016 Cbc With Differential Ord2 Lymph ABS# 1.78 K/ul 09/17/2016 Cbc With Differential Ord2 Love ABS# 0.6 K/ul 09/17/2016 Cbc With Differential Ord2 Eos ABS# 0.2 K/ul 09/17/2016 Cbc With Differential Ord2 Baso ABS# 0.0 K/ul 09/17/2016 Lipid Ord30 CHOL 136 mg/dL 09/17/2016 Lipid Ord30 HDL 50.0 mg/dl 09/17/2016 Lipid Ord30 TRIG 70 mg/dL 09/17/2016 Lipid Ord30 LDL 72 mg/dL 09/17/2016 Lipid Ord30 C/HDL 2.7 Ratio 09/17/2016 Review of Systems System Result Effective Dates Constitutional No recent illness 02/17/2017 Constitutional No [...] sounds 11/17/2016 None Full Exam - General 1995 Musculoskeletal spine, ribs and pelvis Overall: spine benign 11/17/2016 None Full Exam - General 1995 Musculoskeletal spine, ribs and pelvis Overall: sacroiliac [...] dentition 11/05/2016 None Full Exam - General 1995 Ears/Nose/Throat oral cavity/pharynx/larynx Overall: oral mucosa clear 11/05/2016 None Full Exam - General 1995 Ears/Nose/Throat oral cavity/pharynx/larynx Overall: oropharyngeal mucosa clear 11/05/2016 None Full Exam - General 1994 Ears/Nose/Throat oral cavity/pharynx/larynx Overall: hypopharynx benign 11/05/2016 None Full Exam - General 1995 Ears/Nose/Throat oral cavity/pharynx/larynx Overall: no masses 11/05/2016 [...] Procedure Codes Date THER/PROPH/DIAG INJ SC/IM CPT-4: 22846Elxrexs 11/05/2016 TRIAMCINOLONE ACET INJ NOS CPT-4: N1199Moxpvjy 11/05/2016 URINALYSIS NONAUTO W/O SCOPE CPT-4: 18932Ibyzucv 09/18/2016 Vital Signs Date Vital 02/17/2017 Blood Pressure 1: 162/64 Code: 8480-6 BMI: 32.9 Code: 22604-9 Heart Rate 1: 59 bpm Height: 5'7" SpO2: 97% Weight: 210 lbs 01/20/2017 Blood Pressure 1: 162/74 Code: 8480-6 BMI: 32.9 Code: 03764-5 Heart Rate 1: 56 bpm Height: 5'7" SpO2: 98% Weight: 210 lbs 11/17/2016 Blood Pressure 1: 156/60 Code: 8480-6 BMI: 34.8 Code: 47234-6 Heart Rate 1: 63 bpm Height: 5'7" SpO2: 96% Weight: 222 lbs 11/05/2016 Blood Pressure 1: 160/68 Code: 8480-6 BMI: 34.5 Code: 08162-9 Heart Rate 1: 66 bpm Height: 5'7" SpO2: 97% Temperature: 36.9 (C) / 98.5 (F) Weight: 220 lbs 09/21/2016 Blood Pressure 1: 180/72 Code: 8480-6 Blood Pressure 1: 166/72 Code: 8480-6 BMI: 32.1 Code: 36991-1 Heart Rate 1: 57 bpm Height: 5'7" SpO2: 98% Weight: 205 lbs 09/16/2016 Blood Pressure 1: 168/70 Code: 8480-6 Heart Rate 1: 49 bpm SpO2: 95% 08/03/2016 Blood Pressure 1: 162/70 Code: 8480-6 BMI: 32.0 Code: 32858-7 Heart Rate 1: 43 bpm Height: 5'7" SpO2: 98% Weight: 204 lbs 07/06/2016 Blood Pressure 1: 170/86 Code: 8480-6 BMI: 32.0 Code: 42669-5 Heart Rate 1: 48 bpm Height: 5'7" SpO2: 97% Weight: 204 lbs Functional Status No Functional Status data History of Present Illness Symptom Name Status Result Effective Date Notes hypertension Onset and Resolution ongoing 02/17/2017 None [...] data Encounters Encounter Performer Location Codes Date ([id number]) 37776 EST. PATIENT, LEVEL IV Diagnosis: Essential (primary) hypertension[ICD10: I10] Diagnosis: Type 2 diabetes mellitus without complications[ICD10: E11.9] Fifi Camejo MD, [facility] CPT-4: 84177 02/17/2017 ([id number]) 68523 EST. PATIENT, LEVEL IV Diagnosis: Essential (primary) hypertension[ICD10: I10] Diagnosis: Type 2 diabetes mellitus without complications[ICD10: E11.9] Fifi Camejo MD, [facility] CPT-4: 11787 01/20/2017 ([id number]) 56214 EST. PATIENT, LEVEL IV Diagnosis: Essential (primary) hypertension[ICD10: I10] Diagnosis: Type 2 diabetes mellitus without complications[ICD10: E11.9] Diagnosis: Gastro-esophageal reflux disease without esophagitis[ICD10: K21.9] [facility] CPT-4: 84449 11/17/2016 ([id number]) 22341 EST. PATIENT, LEVEL III Diagnosis: Acute bronchitis due to other specified organisms[ICD10: J20.8] Diagnosis: Cough[ICD10: R05] Fifi Camejo MD, [facility] CPT-4: 72591 11/05/2016 ([id number]) 14350 EST. PATIENT, LEVEL IV Diagnosis: Essential (primary) hypertension[ICD10: I10] Diagnosis: Type 2 diabetes mellitus without complications[ICD10: E11.9] Fifi Camejo MD, [facility] CPT-4: 12565 09/21/2016 ([id number]) Miscellaneous no charge Diagnosis: Essential (primary) hypertension[ICD10: I10] [facility] Redmond MD CPT-4: 53111 09/16/2016 ([id number]) 74928 EST. PATIENT, LEVEL III Diagnosis: Type 2 diabetes mellitus without complications[ICD10: E11.9] Diagnosis: Essential (primary) hypertension[ICD10: I10] [facility] Redmond MD CPT-4: 08866 08/03/2016 ([id number]) OFFICE VISIT, NEW - LEVEL 4 Diagnosis: Essential (primary) hypertension[ICD10: I10] Diagnosis: Type 2 diabetes mellitus without complications[ICD10: E11.9] Diagnosis: Carpal tunnel syndrome, left upper limb[ICD10: G56.02] Diagnosis: Right upper quadrant pain[ICD10: R10.11] Diagnosis: Mixed hyperlipidemia[ICD10: E78.2] Fifi Camejo MD, [facility] CPT- 4: 91300 07/06/2016 Plan of Care Planned Activity Notes Codes Status Date Visit Plan: Hypertension - uncontrolled - the [...] less controlled. 02/17/2017 [phone] [id number] [facility] 02/17/2017 Patient Education: [...] less controlled. 01/20/2017 [phone] [facility] ([facility] 01/20/2017 Patient Education: [...] dexilant 11/17/2016 [facility] [phone] [facility] ([facility] Complex 11/17/2016 Patient Education: [...] 110 range. 09/21/2016 App[facility]ment[facility] [phone] [facility] [place] (15 min) Moderate 09/21/2016 Patient [...] time. 08/03/2016 [facility] [phone] [facility] [place] (15 min) Moderate 08/03/2016 Patient Education: Patient [...] not improving. 07/06/2016 Appointment: Fifi Camejo WPtel: [address] [place], [place] [id number] New Patient 07/06/2016 Patient Education: Patient Medication [...] improved, or if symptoms acutely worsen. . Hypertension - well controlled [...]
--- OUTSIDE RECORDS SUMMARY | 2019-03-08 15:58 | XMS REPORT | CCD ---
Author Author Fifi Camejo Organization Fifi Camejo MD, [facility] Address [address] [place] [address] Phone Care Team Providers Care Supervisor Costuming Name Role Phone PP Unavailable CCM Unavailable Summary Purpose Interface Exchange Insurance Providers Payer name Policy type / Coverage type Covered democrat ID Effective Begin Date Effective End Date WPS Medicare Part B Medicare Part B [id number] 2018 Unknown FOR LIFE WPS Medicare Part B [id number] Unknown Family history Father Diagnosis Age At Onset Cancer Unknown Brother Diagnosis Age At Onset Diabetes mellitus Type 2 Unknown Heart Attack Unknown Social History Social History Element Codes Description Effective Dates Marital status Unknown Wu 11/05/2016 Number of children Unknown 1 07/06/2016 Employment Unknown Retired 07/06/[address]: 520784330 Never smoker 07/06/[address]: 023607975 Never drinks alcohol 07/06/2016 Allergies, Adverse Reactions, Alerts Substance Reaction Codes Entered Date Inactivated Date Status Protonix hives RxNorm: 894841 09/06/2018 No Inactive Date Active IV DYE, [...] Start Date Stop Date Status Fill Instructions diclofenac 1 % topical gel RxNorm: 782212 4 Gram(s) TOP QID 01/31/2019 03/01/2019 Active Parafon Forte DSC 500 mg tablet RxNorm: 220702 1 Tablet(s) PO qid prn 01/30/2019 No Stop Date Active tramadol 50 mg tablet RxNorm: 783774 1 Tablet(s) PO qid prn 01/30/2019 No Stop Date Active Voltaren 1 % topical gel RxNorm: 584967 4 Gram(s) TOP QID 01/30/2019 01/30/2019 Inactive diclofenac 1 % topical gel RxNorm: 815864 4 Gram(s) TOP QID 01/30/2019 01/29/2019 Inactive diclofenac 1 % topical gel RxNorm: 295815 4 Gram(s) TOP QID 01/30/2019 01/30/2019 Inactive atorvastatin 10 mg tablet RxNorm: 362677 1 Tablet(s) PO QPM 01/16/2019 01/10/2020 Active hydralazine 10 mg tablet RxNorm: 350348 1 Tablet(s) PO TID PRN 01/16/2019 07/14/2019 Active prn sbp over 150 alprazolam 0.5 mg tablet RxNorm: 862948 1 Tablet(s) PO TID as needed anxiety 01/16/2019 07/14/2019 Active fluticasone propionate 50 mcg/actuation nasal spray,suspension RxNorm: 2241961 2 [place] daily USE 1 SPRAY NASALLY TWICE A DAY 01/16/2019 01/10/2020 Active hydralazine 10 mg tablet RxNorm: 030043 1 Tablet(s) PO TID PRN 01/16/2019 01/15/2019 Inactive prn sbp over 150 clonidine HCl 0.1 mg tablet RxNorm: 765164 1/2 Tablet(s) PO QHS 01/16/2019 01/16/2019 Inactive cefdinir 300 mg capsule RxNorm: 866178 1 Capsule(s) PO BID 01/09/2019 01/15/2019 Inactive cefdinir 300 mg capsule RxNorm: 206817 1 Capsule(s) PO BID 01/09/2019 01/08/2019 Inactive Zithromax Z-Juan 250 mg tablet RxNorm: 060837 1 Tablet(s) PO UD 01/03/2019 01/07/2019 Inactive zpack as directed Kenalog 40 mg/mL suspension for injection RxNorm: 4044564 Milliliter(s) Inj 01/02/2019 01/02/2019 Inactive Zithromax Z-Juan 250 mg tablet RxNorm: 672371 1 Tablet(s) PO UD 12/30/2018 01/02/2019 Inactive zpack as directed metoprolol tartrate 50 mg tablet RxNorm: 387245 1/2 TABLET(S) PO BID 12/02/2018 No Stop Date Active amlodipine 10 mg tablet RxNorm: 309208 TAKE 1 TABLET DAILY 10/24/2018 No Stop Date Active cefdinir 300 mg capsule RxNorm: 481291 1 Capsule(s) PO BID 10/19/2018 10/22/2018 Inactive Zithromax Z-Juan 250 mg tablet RxNorm: 353921 1 Tablet(s) PO UD 10/19/2018 10/23/2018 Inactive zpack as directed glimepiride 4 mg tablet RxNorm: 111295 Tablet(s) 1 TABLET(S) PO DAILY 10/12/2018 No Stop Date Active cefdinir 300 mg capsule RxNorm: 073432 1 Capsule(s) PO BID 10/12/2018 10/18/2018 Inactive Zithromax Z-Juan 250 mg tablet RxNorm: 426423 1 Tablet(s) PO UD 10/12/2018 10/16/2018 Inactive zpack as directed Tessalon Perles 100 mg capsule RxNorm: 330383 2 Capsule(s) PO TID as needed cough 10/12/2018 10/16/2018 Inactive Kenalog 40 mg/mL suspension for injection RxNorm: 1160726 1 Milliliter(s) Inj 10/12/2018 10/12/2018 Inactive Zithromax Z-Juan 250 mg tablet RxNorm: 257692 1 Tablet(s) PO UD 08/22/2018 08/26/2018 Inactive zpack as directed clonidine HCl 0.1 mg tablet RxNorm: 185218 1 Tablet(s) PO QAM 08/16/2018 01/15/2019 Inactive losartan 100 mg tablet RxNorm: 449105 1 TABLET(S) PO DAILY FOR HIGH BLOOD PRESSURE 08/12/2018 No Stop Date Active alprazolam 0.5 mg tablet RxNorm: 324488 1 Tablet(s) PO TID as needed anxiety 06/30/2018 12/26/2018 Inactive fluticasone 50 mcg/actuation nasal spray,suspension RxNorm: 6913475 USE 1 SPRAY NASALLY TWICE A DAY 05/06/2018 01/15/2019 Inactive clonidine HCl 0.1 mg tablet RxNorm: 243286 1 Tablet(s) PO BID 04/14/2018 08/15/2018 Inactive clonidine HCl 0.1 mg tablet RxNorm: 983197 1 Tablet(s) PO TID 04/12/2018 04/13/2018 Inactive Zithromax Z-Juan 250 mg tablet RxNorm: 614186 1 Tablet(s) PO UD 01/20/2018 08/21/2018 Inactive disregard first rx for 1 - patient needs 3 packs-please dispense generic azithromycin Zithromax Z-Juan 250 mg tablet RxNorm: 025630 1 Tablet(s) PO UD 01/20/2018 01/19/2018 Inactive Zithromax Z-Juan 250 mg tablet RxNorm: 598627 1 Tablet(s) PO UD 01/20/2018 01/19/2018 Inactive disregard first rx for 1 - patient needs 3 packs Zithromax Z-Juan 250 mg tablet RxNorm: 842068 1 Tablet(s) PO UD 01/20/2018 01/19/2018 Inactive atorvastatin 10 mg tablet RxNorm: 111096 1 Tablet(s) PO QPM 12/30/2017 12/24/2018 Inactive atorvastatin 10 mg tablet RxNorm: 278133 1 Tablet(s) PO QPM 12/30/2017 12/29/2017 Inactive clonidine HCl 0.1 mg tablet RxNorm: 690387 1 Tablet(s) PO BID 12/29/2017 04/11/2018 Inactive Lipitor 10 mg tablet RxNorm: 642051 1 Tablet(s) PO QPM 12/29/2017 12/29/2017 Inactive OKAY TO DISPENSE GENERIC metoprolol tartrate 50 mg tablet RxNorm: 249397 1/2 Tablet(s) PO BID 12/29/2017 12/01/2018 Inactive alprazolam 0.5 mg tablet RxNorm: 709433 1 Tablet(s) PO TID as needed anxiety 11/18/2017 05/16/2018 Inactive glimepiride 4 mg tablet RxNorm: 132654 1 TABLET(S) PO DAILY 11/15/2017 10/11/2018 Inactive alprazolam 0.5 mg tablet RxNorm: 772805 1 Tablet(s) PO TID as needed anxiety 09/20/2017 11/17/2017 Inactive Zithromax Z-Juan 250 mg tablet RxNorm: 054074 1 Tablet(s) PO UD 09/20/2017 12/28/2017 Inactive Zithromax Z-Juan 250 mg tablet RxNorm: 609062 1 Tablet(s) PO UD 09/14/2017 09/19/2017 Inactive clonidine HCl 0.1 mg tablet RxNorm: 082201 1/2 Tablet(s) PO BID 08/24/2017 12/28/2017 Inactive amlodipine 10 mg tablet RxNorm: 176386 1 Tablet(s) PO daily 08/24/2017 08/18/2018 Inactive erythromycin 5 mg/gram (0.5 %) eye ointment RxNorm: 127258 1 Gram(s) ophthalmic (eye) QID left eye cyst 08/24/2017 09/06/2017 Inactive losartan 100 mg tablet RxNorm: 750441 1 Tablet(s) PO daily for high blood pressure 08/16/2017 08/10/2018 Inactive metoprolol tartrate 50 mg tablet RxNorm: 966628 1/2 Tablet(s) PO BID 07/26/2017 12/28/2017 Inactive clonidine HCl 0.1 mg tablet RxNorm: 218320 1/2 Tablet(s) PO BID 07/26/2017 08/23/2017 Inactive metoprolol tartrate 50 mg tablet RxNorm: 269447 1 Tablet(s) PO BID 07/21/2017 07/25/2017 Inactive amlodipine 10 mg tablet RxNorm: 166588 1 TABLET(S) PO DAILY 06/29/2017 08/23/2017 Inactive Lipitor 10 mg tablet RxNorm: 300441 1 Tablet(s) PO QPM 05/27/2017 12/28/2017 Inactive OKAY TO DISPENSE GENERIC alprazolam 0.5 mg tablet RxNorm: 393516 1 Tablet(s) PO TID as needed anxiety 05/18/2017 08/15/2017 Inactive hydrochlorothiazide 12.5 mg tablet RxNorm: 077273 1 Tablet(s) PO daily 04/22/2017 05/21/2017 Inactive hydrochlorothiazide 12.5 mg tablet RxNorm: 732406 1 Tablet(s) PO daily 04/22/2017 04/21/2017 Inactive Cipro 500 mg tablet RxNorm: 517874 1 Tablet(s) PO BID 04/16/2017 04/22/2017 Inactive Zofran 4 mg tablet RxNorm: 900565 1 Tablet(s) PO BID as needed nausea and vomitting 04/15/2017 04/19/2017 Inactive Lipitor 10 mg tablet RxNorm: 872323 1 Tablet(s) PO QPM 03/30/2017 05/26/2017 Inactive OKAY TO DISPENSE GENERIC Kenalog 40 mg/mL suspension for injection RxNorm: 3210174 1 Milliliter(s) Inj 03/16/2017 03/16/2017 Inactive doxazosin 4 mg tablet RxNorm: 968549 1.5 Tablet(s) PO BID 03/16/2017 05/02/2017 Inactive prednisone 10 mg tablets in a dose pack RxNorm: 076110 Tablet(s) take dose pack as directed PO take with food 03/16/2017 05/23/2017 Inactive Kenalog 40 mg/mL suspension for injection RxNorm: 8962898 Milliliter(s) Inj 03/12/2017 03/12/2017 Inactive Zithromax Z-Juan 250 mg tablet RxNorm: 313901 1 Tablet(s) PO daily 03/11/2017 03/10/2017 Inactive zpack as directed Zithromax Z-Juan 250 mg tablet RxNorm: 203316 1 Tablet(s) PO daily 03/11/2017 03/15/2017 Inactive zpack as directed doxazosin 4 mg tablet RxNorm: 314657 1.5 Tablet(s) PO BID 02/12/2017 03/15/2017 Inactive fluticasone 50 mcg/actuation nasal spray,suspension RxNorm: 6017514 1 SPRAY NASAL BID 02/05/2017 05/05/2018 Inactive metoprolol tartrate 75 mg tablet RxNorm: 7716355 1 Tablet(s) PO BID 01/29/2017 07/19/2017 Inactive metoprolol tartrate 75 mg tablet RxNorm: 1973314 1 Tablet(s) PO BID 01/29/2017 01/28/2017 Inactive doxazosin 4 mg tablet RxNorm: 954230 1 Tablet(s) PO BID 01/20/2017 02/11/2017 Inactive pantoprazole 40 mg tablet,delayed release RxNorm: 177817 1 Tablet(s) PO daily 12/24/2016 01/19/2017 Inactive pantoprazole 40 mg tablet,delayed release RxNorm: 663844 1 Tablet(s) PO daily 12/24/2016 12/23/2016 Inactive alprazolam 0.5 mg tablet RxNorm: 445205 1 Tablet(s) PO TID as needed anxiety 12/03/2016 04/01/2017 Inactive fluticasone 50 mcg/actuation nasal spray,suspension RxNorm: 9545435 1 [place] NASAL BID 11/25/2016 12/24/2016 Inactive Dexilant 60 mg capsule, delayed release RxNorm: 684143 1 Capsule(s) PO daily 11/25/2016 11/24/2016 Inactive fluticasone 50 mcg/actuation nasal spray,suspension RxNorm: 5469584 1 Reg[place] NASAL BID 11/25/2016 11/24/2016 Inactive fluticasone 50 mcg/actuation nasal spray,suspension RxNorm: 8200272 1 Reg[place] NASAL BID 11/25/2016 11/24/2016 Inactive Dexilant 60 mg capsule, delayed release RxNorm: 190873 1 Capsule(s) PO daily 11/25/2016 12/23/2016 Inactive ProAir RespiClick 90 mcg/actuation breath activated RxNorm: 4977283 1 INH bid and QID as needed 11/19/2016 05/17/2017 Inactive Please send STAT Flonase Allergy Relief 50 mcg/actuation nasal spray,suspension RxNorm: 6269688 1 Reg[place] NASAL BID 11/19/2016 11/24/2016 Inactive glimepiride 4 mg tablet RxNorm: 019298 1 Tablet(s) PO daily 11/19/2016 11/13/2017 Inactive metoprolol tartrate 50 mg tablet RxNorm: 630120 1 Tablet(s) PO BID 11/19/2016 01/28/2017 Inactive Flonase Allergy Relief 50 mcg/actuation nasal spray,suspension RxNorm: 2667732 1 Reg[place] NASAL BID 11/17/2016 11/18/2016 Inactive metoprolol tartrate 50 mg tablet RxNorm: 632904 1 Tablet(s) PO BID 11/17/2016 11/18/2016 Inactive ProAir RespiClick 90 mcg/actuation breath activated RxNorm: 3814049 1 INH bid and QID as needed 11/17/2016 11/16/2016 Inactive glimepiride 4 mg tablet RxNorm: 296551 1 Tablet(s) PO daily 11/17/2016 11/18/2016 Inactive ProAir RespiClick 90 mcg/actuation breath activated RxNorm: 0259437 1 INH bid and QID as needed 11/17/2016 11/18/2016 Inactive Please send STAT Kenalog 40 mg/mL suspension for injection RxNorm: 6194789 1 Milliliter(s) Inj 11/05/2016 11/05/2016 Inactive azithromycin 250 mg tablet RxNorm: 563180 Tablet(s) PO 2 tabs on day #1, then daily x 4 days 11/05/2016 12/23/2016 Inactive doxazosin 4 mg tablet RxNorm: 232377 1 Tablet(s) PO QPM 10/02/2016 01/19/2017 Inactive doxazosin 4 mg tablet RxNorm: 954646 1 Tablet(s) PO QPM 09/29/2016 10/01/2016 Inactive doxazosin 4 mg tablet RxNorm: 602782 1 Tablet(s) PO QPM 09/21/2016 09/28/2016 Inactive Cipro 500 mg tablet RxNorm: 262349 1 Tablet(s) PO BID 09/18/2016 09/17/2016 Inactive Cipro 500 mg tablet RxNorm: 217114 1 Tablet(s) PO BID 09/18/2016 09/24/2016 Inactive losartan 100 mg tablet RxNorm: 121027 1 Tablet(s) PO daily for high blood pressure 09/16/2016 09/15/2016 Inactive alprazolam 0.5 mg tablet RxNorm: 170740 1 Tablet(s) PO TID as needed anxiety 09/16/2016 11/14/2016 Inactive losartan 100 mg tablet RxNorm: 082189 1 Tablet(s) PO daily for high blood pressure 09/16/2016 08/15/2017 Inactive amlodipine 10 mg tablet RxNorm: 158415 1 Tablet(s) PO daily 08/03/2016 06/28/2017 Inactive Zyrtec 10 mg tablet RxNorm: 0656019 1 Tablet(s) PO daily 08/03/2016 09/15/2016 Inactive losartan 25 mg tablet RxNorm: 586741 1 Tablet(s) PO daily 07/08/2016 09/15/2016 Inactive Lipitor 10 mg tablet RxNorm: 224172 1 Tablet(s) PO QPM 07/08/2016 07/17/2016 Inactive OKAY TO DISPENSE GENERIC Lipitor 10 mg tablet RxNorm: 815277 1 Tablet(s) PO QPM 07/06/2016 07/07/2016 Inactive OKAY TO DISPENSE GENERIC losartan 25 mg tablet RxNorm: 071929 1 Tablet(s) PO daily 07/06/2016 07/07/2016 Inactive meclizine 25 mg tablet RxNorm: 476140 1 Tablet(s) PO TID as needed No Start Date Active Pazeo 0.7 % eye drops RxNorm: 8181899 Drop(s) ophthalmic (eye) as needed dry eyes No Start Date Active Zithromax Z-Juan 250 mg tablet RxNorm: 061253 1 Tablet(s) PO UD No Start Date 09/13/2017 Inactive glimepiride 4 mg tablet RxNorm: 359243 1 Tablet(s) PO daily No Start Date 11/16/2016 Inactive metoprolol tartrate 100 mg tablet RxNorm: 001485 1 Tablet(s) PO BID No Start Date 07/21/2017 Inactive naproxen 500 mg tablet RxNorm: 242227 1 Tablet(s) PO BID No Start Date 03/23/2017 Inactive amlodipine 5 mg tablet RxNorm: 001201 1 Tablet(s) PO daily No Start Date 08/02/2016 Inactive Parafon Forte DSC 500 mg tablet RxNorm: 491940 1 Tablet(s) PO QID No Start Date 01/29/2019 Inactive metoprolol tartrate 50 mg tablet RxNorm: 695125 1 Tablet(s) PO BID No Start Date 11/16/2016 Inactive Medication Administered Medication Codes Instructions Start Date Status Kenalog 40 mg/mL suspension for injection RxNorm: 1330666 Milliliter 01/02/2019 No longer Active Kenalog 40 mg/mL suspension for injection RxNorm: 1354216 1Milliliter 10/12/2018 No longer Active Kenalog 40 mg/mL suspension for injection RxNorm: 8022632 1Milliliter 03/16/2017 No longer Active Kenalog 40 mg/mL suspension for injection RxNorm: 2516571 Milliliter 03/12/2017 No longer Active Kenalog 40 mg/mL suspension for injection RxNorm: 1164052 1Milliliter 11/05/2016 No longer Active Immunizations Vaccine [...] Lipid Ord30 C/HDL 3.1 Ratio 08/18/2018 Microalbumin Ovr708 MicroAlb 7.5 mg/dL 08/18/2018 Cbc With Differential [...] 29.6 pg 08/18/2018 Cbc With Differential Ord2 [place]% 10.6 % 08/18/2018 Cbc With Differential Ord2 [...] 1.69 K/ul 08/18/2018 Cbc With Differential Ord2 [place] ABS# 0.6 K/ul 08/18/2018 Cbc With Differential Ord2 Eos ABS# 0.3 K/ul 08/18/2018 Cbc With Differential Ord2 Baso ABS# 0.0 K/ul 08/18/2018 Comp Metabolic Qyo128 NA 137 mEq/L 08/18/2018 Comp Metabolic Blq324 K 3.8 mEq/L 08/18/2018 Comp Metabolic Zrq793 CL 103 mEq/L 08/18/2018 Comp Metabolic Npx042 CO2 26.0 mEq/L 08/18/2018 Comp Metabolic Mny068 ANION GAP 12 08/18/2018 Comp Metabolic Rwp186 GLUCOSE 110 mg/dL 08/18/2018 Comp Metabolic Jly405 Creat 1.2 mg/dL 08/18/2018 Comp Metabolic Lof666 eGFR 47 ml/min/1.73m2 08/18/2018 Comp Metabolic Xcx788 BUN 25 mg/dL 08/18/2018 Comp Metabolic Ige661 B/C Ratio 21.0 Ratio 08/18/2018 Comp Metabolic Jkf559 CALCIUM 9.4 mg/dL 08/18/2018 Comp Metabolic Caa717 ALK PHOS 99 U/L 08/18/2018 Comp Metabolic Kdu833 AST(SGOT) 31 U/L 08/18/2018 Comp Metabolic Ccx476 ALT(SGPT) 27 U/L 08/18/2018 Comp Metabolic Tga552 BILI T 0.7 mg/dL 08/18/2018 Comp Metabolic Nqx900 ALBUMIN 4.2 g/dL 08/18/2018 Comp Metabolic Vhi350 TPRO 6.7 g/dL 08/18/2018 Comp Metabolic Hag587 GLOB 2.5 g/dL 08/18/2018 Comp Metabolic Dif986 A/G Ratio 1.7 Ratio 08/18/2018 Comp Metabolic Fhn519 Osmo 279 mOsmo 08/18/2018 %Hba1C Tqm623 % HbA1c 47893- 6 6.1 % 08/18/2018 %Hba1C Rqr011 Gluc Ave 128 mg/dL 08/18/2018 Tsh Ord6 TSH (3rd IS) 3.93 uIU/mL 08/18/2018 Lipid Ord30 CHOL 146 mg/dL 04/15/2018 Lipid Ord30 HDL 62.0 mg/dl 04/15/2018 Lipid Ord30 TRIG 88 mg/dL 04/15/2018 Lipid Ord30 LDL 66 mg/dL 04/15/2018 Lipid Ord30 C/HDL 2.4 Ratio 04/15/2018 %Hba1C Tvq425 % HbA1c 94336- 6 6.3 % 04/15/2018 %Hba1C Njm675 Gluc Ave 134 mg/dL 04/15/2018 Cbc With [...] 30.2 pg 04/15/2018 Cbc With Differential Ord2 [place]% 6.8 % 04/15/2018 Cbc With Differential Ord2 [...] 2.10 K/ul 04/15/2018 Cbc With Differential Ord2 [place] ABS# 0.5 K/ul 04/15/2018 Cbc With Differential Ord2 Eos ABS# 0.2 K/ul 04/15/2018 Cbc With Differential Ord2 Baso ABS# 0.0 K/ul 04/15/2018 Comp Metabolic Xcg717 NA 140 mEq/L 04/15/2018 Comp Metabolic Gjq981 K 4.3 mEq/L 04/15/2018 Comp Metabolic Bvr637 CL 106 mEq/L 04/15/2018 Comp Metabolic Iaw783 CO2 23.0 mEq/L 04/15/2018 Comp Metabolic Eno890 ANION GAP 15 04/15/2018 Comp Metabolic Cjw745 GLUCOSE 90 mg/dL 04/15/2018 Comp Metabolic Qzv231 Creat 1.2 mg/dL 04/15/2018 Comp Metabolic Ooc407 eGFR 45 ml/min/1.73m2 04/15/2018 Comp Metabolic Gjl807 BUN 28 mg/dL 04/15/2018 Comp Metabolic Xun407 B/C Ratio 22.8 Ratio 04/15/2018 Comp Metabolic Acs193 CALCIUM 9.5 mg/dL 04/15/2018 Comp Metabolic Ohg064 ALK PHOS 95 U/L 04/15/2018 Comp Metabolic Ahd469 AST(SGOT) 20 U/L 04/15/2018 Comp Metabolic Emc554 ALT(SGPT) 13 U/L 04/15/2018 Comp Metabolic Dhb659 BILI T 0.5 mg/dL 04/15/2018 Comp Metabolic Nup507 ALBUMIN 4.1 g/dL 04/15/2018 Comp Metabolic Nxr816 TPRO 6.6 g/dL 04/15/2018 Comp Metabolic Rve887 GLOB 2.5 g/dL 04/15/2018 Comp Metabolic Iny504 A/G Ratio 1.6 Ratio 04/15/2018 Comp Metabolic Eaw401 Osmo 284 mOsmo 04/15/2018 Comp Metabolic Ido931 NA 137 mEq/L 02/04/2018 Comp Metabolic Kxb904 K 4.0 mEq/L 02/04/2018 Comp Metabolic Cgq633 CL 104 mEq/L 02/04/2018 Comp Metabolic Xbt472 CO2 27.0 mEq/L 02/04/2018 Comp Metabolic Rdh113 ANION GAP 10 02/04/2018 Comp Metabolic Qoo717 GLUCOSE 212 mg/dL 02/04/2018 Comp Metabolic Ify973 Creat 1.2 mg/dL 02/04/2018 Comp Metabolic Jom272 eGFR 47 ml/min/1.73m2 02/04/2018 Comp Metabolic Bgz333 BUN 20 mg/dL 02/04/2018 Comp Metabolic Yfw525 B/C Ratio 16.8 Ratio 02/04/2018 Comp Metabolic Uqe182 CALCIUM 8.9 mg/dL 02/04/2018 Comp Metabolic Wmo328 ALK PHOS 107 U/L 02/04/2018 Comp Metabolic Rda320 AST(SGOT) 17 U/L 02/04/2018 Comp Metabolic Igy769 ALT(SGPT) 11 U/L 02/04/2018 Comp Metabolic Ctl491 BILI T 0.4 mg/dL 02/04/2018 Comp Metabolic Nwb685 ALBUMIN 3.8 g/dL 02/04/2018 Comp Metabolic Zcd461 TPRO 6.2 g/dL 02/04/2018 Comp Metabolic Qdp301 GLOB 2.4 g/dL 02/04/2018 Comp Metabolic Gau093 A/G Ratio 1.6 Ratio 02/04/2018 Comp Metabolic Toj686 Osmo 283 mOsmo 02/04/2018 %Hba1C Gsy934 % HbA1c 19772- 6 6.3 % 12/30/2017 %Hba1C Bjr355 Gluc Ave 134 mg/dL 12/30/2017 Comp Metabolic Oxz050 NA 142 mEq/L 12/30/2017 Comp Metabolic Wac209 K 4.4 mEq/L 12/30/2017 Comp Metabolic Trw053 CL 103 mEq/L 12/30/2017 Comp Metabolic Yyz978 CO2 31.0 mEq/L 12/30/2017 Comp Metabolic Cdw680 ANION GAP 12 12/30/2017 Comp Metabolic Els718 GLUCOSE 119 mg/dL 12/30/2017 Comp Metabolic Wkc545 Creat 1.4 mg/dL 12/30/2017 Comp Metabolic Fdn485 eGFR 41 ml/min/1.73m2 12/30/2017 Comp Metabolic Jpm640 BUN 27 mg/dL 12/30/2017 Comp Metabolic Rnx293 B/C Ratio 20.0 Ratio 12/30/2017 Comp Metabolic Csn528 CALCIUM 9.9 mg/dL 12/30/2017 Comp Metabolic Akg950 ALK PHOS 106 U/L 12/30/2017 Comp Metabolic Wri990 AST(SGOT) 20 U/L 12/30/2017 Comp Metabolic Wci497 ALT(SGPT) 13 U/L 12/30/2017 Comp Metabolic Ths354 BILI T 0.7 mg/dL 12/30/2017 Comp Metabolic Mav284 ALBUMIN 4.2 g/dL 12/30/2017 Comp Metabolic Fgq907 TPRO 6.7 g/dL 12/30/2017 Comp Metabolic Gkb482 GLOB 2.6 g/dL 12/30/2017 Comp Metabolic Gpf400 A/G Ratio 1.6 Ratio 12/30/2017 Comp Metabolic Vxz139 Osmo 289 mOsmo 12/30/2017 Lipid Ord30 CHOL 167 mg/dL 12/30/2017 Lipid Ord30 HDL 63.0 mg/dl 12/30/2017 Lipid Ord30 TRIG 89 mg/dL 12/30/2017 Lipid Ord30 LDL 86 mg/dL 12/30/2017 Lipid Ord30 C/HDL 2.7 Ratio 12/30/2017 Urine Culture Ucult Preliminary NO Growth Day 1 04/17/2017 Urine Culture Ucult Complete NO Growth Day 2 04/17/2017 Comp Metabolic Hvt462 NA 143 mEq/L 04/15/2017 Comp Metabolic Dsx700 K 4.6 mEq/L 04/15/2017 Comp Metabolic Fnb859 CL 110 mEq/L 04/15/2017 Comp Metabolic Fkm164 CO2 30.0 mEq/L 04/15/2017 Comp Metabolic Fpx106 ANION GAP 8 04/15/2017 Comp Metabolic Dmh097 GLUCOSE 159 mg/dL 04/15/2017 Comp Metabolic Teb227 Creat 1.1 mg/dL 04/15/2017 Comp Metabolic Qvy880 eGFR 54 ml/min/1.73m2 04/15/2017 Comp Metabolic Gew161 BUN 27 mg/dL 04/15/2017 Comp Metabolic Pww909 B/C Ratio 25.7 Ratio 04/15/2017 Comp Metabolic Rhh649 CALCIUM 9.4 mg/dL 04/15/2017 Comp Metabolic Mad775 ALK PHOS 93 U/L 04/15/2017 Comp Metabolic Tgp198 AST(SGOT) 19 U/L 04/15/2017 Comp Metabolic Kde160 ALT(SGPT) 18 U/L 04/15/2017 Comp Metabolic Spc694 BILI T 0.6 mg/dL 04/15/2017 Comp Metabolic Edn482 ALBUMIN 3.9 g/dL 04/15/2017 Comp Metabolic Awf948 TPRO 6.5 g/dL 04/15/2017 Comp Metabolic Vux303 GLOB 2.6 g/dL 04/15/2017 Comp Metabolic Vry881 A/G Ratio 1.5 Ratio 04/15/2017 Comp Metabolic Jms603 Osmo 293 mOsmo 04/15/2017 Tsh Ord6 hTSH II 2.05 uIU/mL 04/15/2017 %Hba1C Wbr548 % HbA1c 42602- 6 6.3 % 04/15/2017 %Hba1C Rgn714 Gluc Ave 134 mg/dL 04/15/2017 Cbc With [...] 29.0 pg 04/15/2017 Cbc With Differential Ord2 [place]% 6.9 % 04/15/2017 Cbc With Differential Ord2 [...] 1.58 K/ul 04/15/2017 Cbc With Differential Ord2 [place] ABS# 0.5 K/ul 04/15/2017 Cbc With Differential [...] Ord28 U-Com Culture to follow 04/15/2017 %Hba1C Ykm066 % HbA1c 35509- 6 5.8 % 01/07/2017 %Hba1C Lab337 Gluc Ave 120 mg/dL 01/07/2017 Urine Culture Ucult Preliminary NO Growth Day 1 09/21/2016 Urine Culture Ucult Complete NO Growth Day 2 09/21/2016 %Hba1C Ubl365 % HbA1c 79645- 6 6.0 % 09/17/2016 %Hba1C Vax408 Gluc Ave 126 mg/dL 09/17/2016 Comp Metabolic Zue765 NA 140 mEq/L 09/17/2016 Comp Metabolic Egy425 K 4.1 mEq/L 09/17/2016 Comp Metabolic Mzm198 CL 105 mEq/L 09/17/2016 Comp Metabolic Nyc100 CO2 29.0 mEq/L 09/17/2016 Comp Metabolic Zeg296 ANION GAP 10 09/17/2016 Comp Metabolic Exy877 GLUCOSE 89 mg/dL 09/17/2016 Comp Metabolic Mbs348 Creat 0.9 mg/dL 09/17/2016 Comp Metabolic Qni503 eGFR 65 ml/min/1.73m2 09/17/2016 Comp Metabolic Cbu344 BUN 20 mg/dL 09/17/2016 Comp Metabolic Kzc735 B/C Ratio 22.2 Ratio 09/17/2016 Comp Metabolic Pxg308 CALCIUM 9.3 mg/dL 09/17/2016 Comp Metabolic His366 ALK PHOS 107 U/L 09/17/2016 Comp Metabolic Jnf680 AST(SGOT) 22 U/L 09/17/2016 Comp Metabolic Lag114 ALT(SGPT) 15 U/L 09/17/2016 Comp Metabolic Ctu962 BILI T 0.7 mg/dL 09/17/2016 Comp Metabolic Obf216 ALBUMIN 4.0 g/dL 09/17/2016 Comp Metabolic Vyo584 TPRO 6.8 g/dL 09/17/2016 Comp Metabolic Vel052 GLOB 2.8 g/dL 09/17/2016 Comp Metabolic Yjm575 A/G Ratio 1.4 Ratio 09/17/2016 Comp Metabolic Dwi147 Osmo 281 mOsmo 09/17/2016 Microalbumin Npk441 MicroAlb 44.3 mg/dL 09/17/2016 Tsh Ord6 hTSH [...] 29.0 pg 09/17/2016 Cbc With Differential Ord2 [place]% 8.1 % 09/17/2016 Cbc With Differential Ord2 [...] 1.78 K/ul 09/17/2016 Cbc With Differential Ord2 [place] ABS# 0.6 K/ul 09/17/2016 Cbc With Differential [...] Exam - General 1995 Ears/Nose/Throat lips/teeth/gingiva Overall: benign lips 01/30/2019 None [...] Procedure Codes Date THER/PROPH/DIAG INJ SC/IM CPT-4: 12661 01/02/2019 TRIAMCINOLONE ACET INJ NOS CPT-4: J3301 01/02/2019 TRIAMCINOLONE ACET INJ NOS CPT-4: J3301 10/12/2018 THER/PROPH/DIAG INJ SC/IM CPT-4: 74996 10/12/2018 PPPS, SUBSEQ VISIT CPT- 4: G0439 09/06/2018 URINALYSIS NONAUTO W/O SCOPE CPT-4: 32140 12/29/2017 PPPS, SUBSEQ VISIT CPT- 4: G0439 03/30/2017 THER/PROPH/DIAG INJ SC/IM CPT-4: 00931 03/16/2017 TRIAMCINOLONE ACET INJ NOS CPT-4: J3301 03/16/2017 THER/PROPH/DIAG INJ SC/IM CPT-4: 16205 03/12/2017 TRIAMCINOLONE ACET INJ NOS CPT-4: J3301 03/12/2017 THER/PROPH/DIAG INJ SC/IM CPT-4: 13454 11/05/2016 TRIAMCINOLONE ACET INJ NOS CPT-4: J3301 11/05/2016 URINALYSIS NONAUTO W/O SCOPE CPT-4: 58829 09/18/2016 Vital Signs Date Vital 01/30/2019 Blood Pressure 1: 160/70 Code: 8480-6 Heart Rate 1: 53 bpm Height: 5'7" SpO2: 96% 01/16/2019 Blood Pressure 1: 156/70 Code: 8480-6 BMI: 30.1 Code: 82924-8 Heart Rate 1: 50 bpm Height: 5'7" SpO2: 98% Weight: 192 lbs 10/12/2018 Blood Pressure 1: 142/76 Code: 8480-6 BMI: 30.1 Code: 94948-6 Heart Rate 1: 83 bpm Height: 5'7" SpO2: 98% Weight: 192 lbs 09/06/2018 Blood Pressure 1: 142/ Code: 8480-6 BMI: 30.9 Code: 74424-5 Heart Rate 1: 64 bpm Height: 5'7" SpO2: 98% Waist Measure (cm): 99 cm Weight: 197 lbs 08/16/2018 Blood Pressure 1: 140/70 Code: 8480-6 BMI: 34.4 Code: 42360-9 Heart Rate 1: 63 bpm Height: 5'7" SpO2: 95% Weight: 219 lbs 14 oz 04/12/2018 Blood Pressure 1: 160/70 Code: 8480-6 BMI: 33.0 Code: 73387-4 Heart Rate 1: 82 bpm Height: 5'7" SpO2: 95% Weight: 211 lbs 01/20/2018 Blood Pressure 1: 152/ Code: 8480-6 BMI: 31.8 Code: 20802-8 Heart Rate 1: 52 bpm Height: 5'7" SpO2: 98% Temperature: 36.3 (C) / 97.3 (F) Weight: 203 lbs 12/29/2017 Blood Pressure 1: 168/72 Code: 8480-6 BMI: 32.1 Code: 32787-6 Heart Rate 1: 63 bpm Height: 5'7" SpO2: 98% Weight: 205 lbs 08/24/2017 Blood Pressure 1: 186/70 Code: 8480-6 Blood Pressure 1: 150/70 Code: 8480-6 BMI: 31.8 Code: 08921-8 Heart Rate 1: 53 bpm Height: 5'7" SpO2: 98% Weight: 203 lbs 07/26/2017 Blood Pressure 1: 206/78 Code: 8480-6 Blood Pressure 2: 210/84 Code: 8480-6 BMI: 32.0 Code: 71082-4 Heart Rate 1: 49 bpm Height: 5'7" SpO2: 97% Weight: 204 lbs 07/20/2017 Blood Pressure 1: 148/82 Code: 8480-6 Heart Rate 1: 90 bpm SpO2: 98% 05/27/2017 Blood Pressure 1: 142/72 Code: 8480-6 BMI: 30.5 Code: 98388-6 Heart Rate 1: 97 bpm Height: 5'7" [...] 1: 148/70 Code: 8480-6 BMI: 30.4 Code: 62833-3 Heart Rate 1: 54 bpm Height: 5'7" SpO2: 97% Weight: 194 lbs 03/30/2017 BMI: 33.2 Code: 28559-8 Height: 5'7" Weight: 212 lbs 03/16/2017 Blood Pressure 1: 140/80 Code: 8480-6 BMI: 34.0 Code: 59222-1 Heart Rate 1: 70 bpm Height: 5'7" SpO2: 95% Weight: 217 lbs 03/12/2017 Blood Pressure 1: 142/80 Code: 8480-6 BMI: 34.0 Code: 07124-2 Heart Rate 1: 76 bpm Height: 5'7" SpO2: 92% Weight: 217 lbs 02/17/2017 Blood Pressure 1: 162/64 Code: 8480-6 BMI: 32.9 Code: 95987-9 Heart Rate 1: 59 bpm Height: 5'7" SpO2: 97% Weight: 210 lbs 01/20/2017 Blood Pressure 1: 162/74 Code: 8480-6 BMI: 32.9 Code: 95937-5 Heart Rate 1: 56 bpm Height: 5'7" SpO2: 98% Weight: 210 lbs 11/17/2016 Blood Pressure 1: 156/60 Code: 8480-6 BMI: 34.8 Code: 87401-6 Heart Rate 1: 63 bpm Height: 5'7" SpO2: 96% Weight: 222 lbs 11/05/2016 Blood Pressure 1: 160/68 Code: 8480-6 BMI: 34.5 Code: 96955-0 Heart Rate 1: 66 bpm Height: 5'7" SpO2: 97% Temperature: 36.9 (C) / 98.5 (F) Weight: 220 lbs 09/21/2016 Blood Pressure 1: 180/72 Code: 8480-6 Blood Pressure 1: 166/72 Code: 8480-6 BMI: 32.1 Code: 14498-4 Heart Rate 1: 57 bpm Height: 5'7" SpO2: 98% Weight: 205 lbs 09/16/2016 Blood Pressure 1: 168/70 Code: 8480-6 Heart Rate 1: 49 bpm SpO2: 95% 08/03/2016 Blood Pressure 1: 162/70 Code: 8480-6 BMI: 32.0 Code: 37333-9 Heart Rate 1: 43 bpm Height: 5'7" SpO2: 98% Weight: 204 lbs 07/06/2016 Blood Pressure 1: 170/86 Code: 8480-6 BMI: 32.0 Code: 31433-4 Heart Rate 1: 48 bpm Height: 5'7" [...] data Encounters Encounter Performer Location Codes Date ([id number]) 64318 EST. PATIENT, LEVEL III Diagnosis: Essential (primary) hypertension[ICD10: I10] Diagnosis: Lumbago with sciatica, right side[ICD10: M54.41] [facility] CPT-4: 24867 01/30/2019 ([id number]) 15054 EST. PATIENT, LEVEL III Diagnosis: Essential (primary) hypertension[ICD10: I10] Diagnosis: Other allergic rhinitis[ICD10: J30.89] [facility] CPT-4: 21527 01/16/2019 29982 EST. PATIENT, LEVEL IV Diagnosis: Other acute sinusitis[ICD10: J01.80] Diagnosis: Other allergic rhinitis[ICD10: J30.89] Krysta Camejo MD, [facility] CPT- 4: 50491 10/12/2018 ([id number]) 10394 EST. PATIENT, LEVEL IV Diagnosis: Essential (primary) hypertension[ICD10: I10] Diagnosis: Type 2 diabetes mellitus without complications[ICD10: E11.9] Diagnosis: Mixed hyperlipidemia[ICD10: E78.2] Fifi Camejo MD, [facility] CPT- 4: 37763 08/16/2018 ([id number]) 50624 EST. PATIENT, LEVEL IV Diagnosis: Type 2 diabetes mellitus without complications[ICD10: E11.9] Diagnosis: Mixed hyperlipidemia[ICD10: E78.2] Diagnosis: Essential (primary) hypertension[ICD10: I10] Diagnosis: Dysuria[ICD10: R30.0] Diagnosis: Pain in left foot[ICD10: M79.672] Fifi Camejo MD, [facility] CPT- 4: 41038 04/12/2018 ([id number]) 87571 EST. PATIENT, LEVEL III Diagnosis: Otalgia, bilateral[ICD10: H92.03] Diagnosis: Other allergic rhinitis[ICD10: J30.89] Yuridia Camejo MD, [facility] CPT-4: 67153 01/20/2018 ([id number]) 28598 EST. PATIENT, LEVEL IV Diagnosis: Type 2 diabetes mellitus without complications[ICD10: E11.9] Diagnosis: Mixed hyperlipidemia[ICD10: E78.2] Diagnosis: Essential (primary) hypertension[ICD10: I10] Diagnosis: Dysuria[ICD10: R30.0] Fifi Camejo MD, [facility] CPT-4: 49141 12/29/2017 ([id number]) 50214 EST. PATIENT, LEVEL IV Diagnosis: Essential (primary) hypertension[ICD10: I10] Diagnosis: Cysts of left upper eyelid[ICD10: H02.824] Diagnosis: Pain in left foot[ICD10: M79.672] Fifi Camejo MD, [facility] CPT- 4: 35144 08/24/2017 ([id number]) 60264 EST. PATIENT, LEVEL III Diagnosis: Essential (primary) hypertension[ICD10: I10] Fifi Camejo MD, [facility] CPT-4: 83148 07/26/2017 ([id number]) Miscellaneous no charge Diagnosis: Essential (primary) hypertension[ICD10: I10] Fifi Camejo MD [facility] CPT-4: 06146 07/20/2017 34569 EST. PATIENT, LEVEL III Diagnosis: Otalgia, bilateral[ICD10: H92.03] Diagnosis: Dizziness and giddiness[ICD10: R42] Diagnosis: Mixed hyperlipidemia[ICD10: E78.2] Krysta Camejo MD, [facility] CPT-4: 82250 05/27/2017 ([id number]) Miscellaneous no charge Diagnosis: Essential (primary) hypertension[ICD10: I10] Krysta Camejo MD, [facility] CPT-4: 23589 05/07/2017 ([id number]) 96922 EST. PATIENT, LEVEL IV Diagnosis: Otalgia, bilateral[ICD10: H92.03] Diagnosis: Dizziness and giddiness[ICD10: R42] Diagnosis: Orthostatic hypotension[ICD10: I95.1] Fifi Camejo MD, [facility] CPT-4: 27530 05/03/2017 25517 EST. PATIENT, LEVEL IV Diagnosis: Essential (primary) hypertension[ICD10: I10] Diagnosis: Type 2 diabetes mellitus without complications[ICD10: E11.9] Diagnosis: Gastro-esophageal reflux disease without esophagitis[ICD10: K21.9] Diagnosis: Dizziness and giddiness[ICD10: R42] Diagnosis: Dysuria[ICD10: R30.0] Diagnosis: Other malaise[ICD10: R53.81] Krysta Camejo MD [facility] CPT-4: 77592 04/15/2017 ([id number]) 17370 EST. PATIENT, LEVEL IV Diagnosis: Type 2 diabetes mellitus without complications[ICD10: E11.9] Diagnosis: Otalgia, bilateral[ICD10: H92.03] Diagnosis: Essential (primary) hypertension[ICD10: I10] Diagnosis: Other allergic rhinitis[ICD10: J30.89] Fifi Camejo MD, [facility] CPT-4: 52002 03/16/2017 94593 EST. PATIENT, LEVEL IV Diagnosis: Other acute sinusitis[ICD10: J01.80] Diagnosis: Acute suppurative otitis media without spontaneous rupture of ear drum, bilateral[ICD10: H66.003] Diagnosis: Other allergic rhinitis[ICD10: J30.89] Krysta Camejo MD [facility] CPT- 4: 19411 03/12/2017 ([id number]) 54482 EST. PATIENT, LEVEL IV Diagnosis: Essential (primary) hypertension[ICD10: I10] Diagnosis: Type 2 diabetes mellitus without complications[ICD10: E11.9] Fifi Camejo MD [facility] CPT-4: 82259 02/17/2017 ([id number]) 91577 EST. PATIENT, LEVEL IV Diagnosis: Essential (primary) hypertension[ICD10: I10] Diagnosis: Type 2 diabetes mellitus without complications[ICD10: E11.9] Fifi Camejo MD [facility] CPT-4: 64683 01/20/2017 ([id number]) 63496 EST. PATIENT, LEVEL IV Diagnosis: Essential (primary) hypertension[ICD10: I10] Diagnosis: Type 2 diabetes mellitus without complications[ICD10: E11.9] Diagnosis: Gastro-esophageal reflux disease without esophagitis[ICD10: K21.9] Fifi Camejo MD [facility] CPT-4: 93161 11/17/2016 ([id number]) 33507 EST. PATIENT, LEVEL III Diagnosis: Acute bronchitis due to other specified organisms[ICD10: J20.8] Diagnosis: Cough[ICD10: R05] Fifi Camejo MD [facility] CPT-4: 52328 11/05/2016 ([id number]) 90415 EST. PATIENT, LEVEL IV Diagnosis: Essential (primary) hypertension[ICD10: I10] Diagnosis: Type 2 diabetes mellitus without complications[ICD10: E11.9] Fifi Camejo MD [facility] CPT-4: 48102 09/21/2016 ([id number]) Miscellaneous no charge Diagnosis: Essential (primary) hypertension[ICD10: I10] Fifi Camejo MD [facility] CPT-4: 56670 09/16/2016 ([id number]) 65952 EST. PATIENT, LEVEL III Diagnosis: Type 2 diabetes mellitus without complications[ICD10: E11.9] Diagnosis: Essential (primary) hypertension[ICD10: I10] [facility] CPT-4: 84157 08/03/2016 ([id number]) OFFICE VISIT, NEW - LEVEL 4 Diagnosis: Essential (primary) hypertension[ICD10: I10] Diagnosis: Type 2 diabetes mellitus without complications[ICD10: E11.9] Diagnosis: Carpal tunnel syndrome, left upper limb[ICD10: G56.02] Diagnosis: Right upper quadrant pain[ICD10: R10.11] Diagnosis: Mixed hyperlipidemia[ICD10: E78.2] [facility] CPT- 4: 08424 07/06/2016 Plan of Care Planned Activity Notes [...] they worsen. 01/30/2019 Appointment: Yuridia Walsh WPtel: [address] [place], [place] [id number] (30 min) [facility] 01/30/2019 Patient Education: Patient Medication Summary Completed [...] allergy spray. 10/12/2018 Appointment: Krysta Dale WPtel: [facility]8 [facility] (30 min) [facility] 10/12/2018 Patient Education: Patient Medication Summary Completed [...] care surrogate. 09/06/2018 Appointment: Yuridia Walsh WPtel: [facility]2 [phone] [facility] - Annual Wellness Visit 09/06/2018 Patient Education: Patient Medication Summary Completed 09/06/2018 Appointment: [facility] [phone] [phone] [facility] - Annual Wellness Visit 08/29/2018 [...] me dications. 08/16/2018 Appointment: [facility]el[facility] [phone] [facility] (15 min) Moderate 08/16/2018 Patient Education: Patient [...] the foot. 04/12/2018 Appointment: Fifi Camejo WPtel[facility] [phone] [facility] (15 min) Moderate 04/12/2018 Patient Education: Patient Medication Summary Completed 04/12/2018 Care Plan: Referral Order SNOMED-CT : [id number] Pending 04/12/2018 Patient Education: Patient Medication Summary [...] allergy spray. 01/20/2018 App[facility]ment: [facility] [phone] [phone] (15 min) Moderate 01/20/2018 Patient Education: Patient [...] controlled. 12/29/2017 Appointment: Fifi Camejo WPtel: [phone] [facility] (15 min) Moderate 12/29/2017 Patient Education: Patient [...] - recommended referral to Dr. Chago davis [place] 08/24/2017 Appointment: Fifi Camejo WPtel: [phone] [facility] (15 min) Moderate 08/24/2017 Patient Education: Patient Medication Summary Completed 08/24/2017 Care Plan: Referral Order SNOMED-CT : [id number] Pending 08/24/2017 Visit Plan: Hypertension - uncontrolled [...] listed above. 07/26/2017 Appointment: Fifi Camejo WPtel: [facility]7 [facility] (15 min) Moderate 07/26/2017 Patient Education: Patient [...] to medications. 05/27/2017 Appointment: Krysta Dale WPtel: [facility]3 [facility] (15 min) Moderate 05/27/2017 Patient Education: Patient Medication Summary Completed 05/27/2017 Appointment: Nurse Visit 05/07/2017 Patient Education: Patient Medication Summary Completed 05/07/2017 Visit Plan: Persistent vergito with bilateral air-fluid levels and ear pain. Pt was seen by Dr. Calvo- she did not like his response to her complaints. I have recommended a referral to ENT in [place] or [place]. I suspect she may need myringotomy tubes. Pt to continue with flonase. Orthostatic hypotension - dc doxazosin. Monitor blood pressures at home. stop the doxazosin meclizine change to 1/2 pill three times a day come back on Wednesday for blood pressure check 05/03/2017 Appointment: Fifi Camejo WPtel: [facility]9 [facility] (15 min) Moderate 05/03/2017 Patient Education: Patient Medication Summary Completed 05/03/2017 Appointment: Fifi Camejo WPtel: [phone] [facility] [place] (15 min) Moderate 04/21/2017 Visit Plan: [...] glucose control. 04/15/2017 Appointment: Krysta Dale WPtel: [phone] [facility] (30 min) Complex 04/15/2017 Patient Education: Patient [...] care surrogate. 03/30/2017 Appointment: Krysta Dale WPtel: [phone] [facility] [facility] - Annual Wellness Visit 03/30/2017 [...] at home. 03/16/2017 Appointment: Fifi Camejo WPtel: [phone] [facility] (30 min) Complex 03/16/2017 Patient Education: Patient Medication Summary Completed 03/16/2017 Patient Education: Obesity Completed 03/16/2017 Care Plan: Referral Order SNOMED-CT : [id number] Pending 03/16/2017 Visit Plan: Allergies - chronic [...] acutely worsen. 03/12/2017 Appointment: [phone] [facility] (15 min) Moderate 03/12/2017 Patient Education: [...] controlled. 02/17/2017 Appointment: Fifi Camejo WPtel: [phone] [facility] (30 min) Complex 02/17/2017 Patient Education: Patient [...] controlled. 01/20/2017 Appointment: Fifi Camejo WPtel: [phone] [facility] (30 min) Complex 01/20/2017 Patient Education: Patient [...] of dexilant 11/17/2016 Appointment: Fifi Camejo WPtel: [phone] [facility] (30 min) Complex 11/17/2016 Patient Education: Patient [...] 90-110 range. 09/21/2016 Appointment: Fifi Camejo WPtel: [phone] [facility] (15 min) Moderate 09/21/2016 Patient Education: Patient [...] time. 08/03/2016 Appointment: Fifi Camejo WPtel: [phone] [facility] (15 min) Moderate 08/03/2016 Patient Education: Patient [...] not improving. 07/06/2016 Appointment: Fifi Camejo WPtel: [phone] [facility] New Patient 07/06/2016 Patient Education: Patient Medication [...] monitor your heart rate Consider referral for curriculum manager for possible stress test if needed. Call [...] monitor your heart rate Consider referral for curriculum manager for possible stress test if needed. Call [...] have recommended a referral to ENT in [place] or [place]. I suspect she may need myringotomy tubes. [...] - recommended referral to Dr. Anders in [place]
--- OUTSIDE RECORDS SUMMARY | 2019-03-08 16:02 | XMS REPORT | CCD ---
Author Author Fifi Camejo Organization Fifi Camejo MD, [facility] Address [address] [place] [address] Phone Care Team Providers Care Door Clamper Name Role Phone PP Unavailable CCM Unavailable Summary Purpose Interface Exchange Insurance Providers Payer name Policy type / Coverage type Covered green party ID Effective Begin Date Effective End Date WPS Medicare Part B Medicare Part B [id number] 2018 Unknown FOR LIFE WPS Medicare Part B [id number] Unknown Family history Father Diagnosis Age At Onset Cancer Unknown Brother Diagnosis Age At Onset Diabetes mellitus Type 2 Unknown Heart Attack Unknown Social History Social History Element Codes Description Effective Dates Marital status Unknown Wu 11/05/2016 Number of children Unknown 1 07/06/2016 Employment Unknown Retired 07/06/[address]: 267285547 Never smoker 07/06/[address]: 565390916 Never drinks alcohol 07/06/2016 Allergies, Adverse Reactions, Alerts Substance Reaction Codes Entered Date Inactivated Date Status Protonix hives RxNorm: 757295 09/06/2018 No Inactive Date Active IV DYE, [...] Start Date Stop Date Status Fill Instructions Voltaren 1 % topical gel RxNorm: 627039 4 Gram(s) TOP QID 01/30/2019 01/30/2019 Inactive Parafon Forte DSC 500 mg tablet RxNorm: 993304 1 Tablet(s) PO qid prn 01/30/2019 No Stop Date Active tramadol 50 mg tablet RxNorm: 607700 1 Tablet(s) PO qid prn 01/30/2019 No Stop Date Active diclofenac 1 % topical gel RxNorm: 072677 4 Gram(s) TOP QID 01/30/2019 01/24/2020 Active diclofenac 1 % topical gel RxNorm: 593464 4 Gram(s) TOP QID 01/30/2019 01/29/2019 Inactive atorvastatin 10 mg tablet RxNorm: 608421 1 Tablet(s) PO QPM 01/16/2019 01/10/2020 Active hydralazine 10 mg tablet RxNorm: 716741 1 Tablet(s) PO TID PRN 01/16/2019 07/14/2019 Active prn sbp over 150 alprazolam 0.5 mg tablet RxNorm: 597455 1 Tablet(s) PO TID as needed anxiety 01/16/2019 07/14/2019 Active fluticasone propionate 50 mcg/actuation nasal spray,suspension RxNorm: 0328050 2 [place] daily USE 1 SPRAY NASALLY TWICE A DAY 01/16/2019 01/10/2020 Active hydralazine 10 mg tablet RxNorm: 553987 1 Tablet(s) PO TID PRN 01/16/2019 01/15/2019 Inactive prn sbp over 150 clonidine HCl 0.1 mg tablet RxNorm: 407286 1/2 Tablet(s) PO QHS 01/16/2019 01/16/2019 Inactive cefdinir 300 mg capsule RxNorm: 367068 1 Capsule(s) PO BID 01/09/2019 01/15/2019 Inactive cefdinir 300 mg capsule RxNorm: 140694 1 Capsule(s) PO BID 01/09/2019 01/08/2019 Inactive Zithromax Z-Juan 250 mg tablet RxNorm: 741875 1 Tablet(s) PO UD 01/03/2019 01/07/2019 Inactive zpack as directed Kenalog 40 mg/mL suspension for injection RxNorm: 3333494 Milliliter(s) Inj 01/02/2019 01/02/2019 Inactive Zithromax Z-Juan 250 mg tablet RxNorm: 462995 1 Tablet(s) PO UD 12/30/2018 01/02/2019 Inactive zpack as directed metoprolol tartrate 50 mg tablet RxNorm: 889486 1/2 TABLET(S) PO BID 12/02/2018 No Stop Date Active amlodipine 10 mg tablet RxNorm: 977207 TAKE 1 TABLET DAILY 10/24/2018 No Stop Date Active cefdinir 300 mg capsule RxNorm: 642885 1 Capsule(s) PO BID 10/19/2018 10/22/2018 Inactive Zithromax Z-Juan 250 mg tablet RxNorm: 804167 1 Tablet(s) PO UD 10/19/2018 10/23/2018 Inactive zpack as directed glimepiride 4 mg tablet RxNorm: 812409 Tablet(s) 1 TABLET(S) PO DAILY 10/12/2018 No Stop Date Active cefdinir 300 mg capsule RxNorm: 498558 1 Capsule(s) PO BID 10/12/2018 10/18/2018 Inactive Zithromax Z-Juan 250 mg tablet RxNorm: 046016 1 Tablet(s) PO UD 10/12/2018 10/16/2018 Inactive zpack as directed Tessalon Perles 100 mg capsule RxNorm: 993341 2 Capsule(s) PO TID as needed cough 10/12/2018 10/16/2018 Inactive Kenalog 40 mg/mL suspension for injection RxNorm: 9720173 1 Milliliter(s) Inj 10/12/2018 10/12/2018 Inactive Zithromax Z-Juan 250 mg tablet RxNorm: 002988 1 Tablet(s) PO UD 08/22/2018 08/26/2018 Inactive zpack as directed clonidine HCl 0.1 mg tablet RxNorm: 013397 1 Tablet(s) PO QAM 08/16/2018 01/15/2019 Inactive losartan 100 mg tablet RxNorm: 528296 1 TABLET(S) PO DAILY FOR HIGH BLOOD PRESSURE 08/12/2018 No Stop Date Active alprazolam 0.5 mg tablet RxNorm: 364766 1 Tablet(s) PO TID as needed anxiety 06/30/2018 12/26/2018 Inactive fluticasone 50 mcg/actuation nasal spray,suspension RxNorm: 5159404 USE 1 SPRAY NASALLY TWICE A DAY 05/06/2018 01/15/2019 Inactive clonidine HCl 0.1 mg tablet RxNorm: 528286 1 Tablet(s) PO BID 04/14/2018 08/15/2018 Inactive clonidine HCl 0.1 mg tablet RxNorm: 128598 1 Tablet(s) PO TID 04/12/2018 04/13/2018 Inactive Zithromax Z-Juan 250 mg tablet RxNorm: 257167 1 Tablet(s) PO UD 01/20/2018 08/21/2018 Inactive disregard first rx for 1 - patient needs 3 packs-please dispense generic azithromycin Zithromax Z-Juan 250 mg tablet RxNorm: 327492 1 Tablet(s) PO UD 01/20/2018 01/19/2018 Inactive Zithromax Z-Juan 250 mg tablet RxNorm: 499847 1 Tablet(s) PO UD 01/20/2018 01/19/2018 Inactive disregard first rx for 1 - patient needs 3 packs Zithromax Z-Juan 250 mg tablet RxNorm: 050038 1 Tablet(s) PO UD 01/20/2018 01/19/2018 Inactive atorvastatin 10 mg tablet RxNorm: 999719 1 Tablet(s) PO QPM 12/30/2017 12/24/2018 Inactive atorvastatin 10 mg tablet RxNorm: 586190 1 Tablet(s) PO QPM 12/30/2017 12/29/2017 Inactive clonidine HCl 0.1 mg tablet RxNorm: 582586 1 Tablet(s) PO BID 12/29/2017 04/11/2018 Inactive Lipitor 10 mg tablet RxNorm: 416920 1 Tablet(s) PO QPM 12/29/2017 12/29/2017 Inactive OKAY TO DISPENSE GENERIC metoprolol tartrate 50 mg tablet RxNorm: 553831 1/2 Tablet(s) PO BID 12/29/2017 12/01/2018 Inactive alprazolam 0.5 mg tablet RxNorm: 224567 1 Tablet(s) PO TID as needed anxiety 11/18/2017 05/16/2018 Inactive glimepiride 4 mg tablet RxNorm: 981392 1 TABLET(S) PO DAILY 11/15/2017 10/11/2018 Inactive alprazolam 0.5 mg tablet RxNorm: 173628 1 Tablet(s) PO TID as needed anxiety 09/20/2017 11/17/2017 Inactive Zithromax Z-Juan 250 mg tablet RxNorm: 170756 1 Tablet(s) PO UD 09/20/2017 12/28/2017 Inactive Zithromax Z-Juan 250 mg tablet RxNorm: 870520 1 Tablet(s) PO UD 09/14/2017 09/19/2017 Inactive clonidine HCl 0.1 mg tablet RxNorm: 746680 1/2 Tablet(s) PO BID 08/24/2017 12/28/2017 Inactive amlodipine 10 mg tablet RxNorm: 282255 1 Tablet(s) PO daily 08/24/2017 08/18/2018 Inactive erythromycin 5 mg/gram (0.5 %) eye ointment RxNorm: 583784 1 Gram(s) ophthalmic (eye) QID left eye cyst 08/24/2017 09/06/2017 Inactive losartan 100 mg tablet RxNorm: 931433 1 Tablet(s) PO daily for high blood pressure 08/16/2017 08/10/2018 Inactive metoprolol tartrate 50 mg tablet RxNorm: 949763 1/2 Tablet(s) PO BID 07/26/2017 12/28/2017 Inactive clonidine HCl 0.1 mg tablet RxNorm: 648551 1/2 Tablet(s) PO BID 07/26/2017 08/23/2017 Inactive metoprolol tartrate 50 mg tablet RxNorm: 620149 1 Tablet(s) PO BID 07/21/2017 07/25/2017 Inactive amlodipine 10 mg tablet RxNorm: 989938 1 TABLET(S) PO DAILY 06/29/2017 08/23/2017 Inactive Lipitor 10 mg tablet RxNorm: 762701 1 Tablet(s) PO QPM 05/27/2017 12/28/2017 Inactive OKAY TO DISPENSE GENERIC alprazolam 0.5 mg tablet RxNorm: 653454 1 Tablet(s) PO TID as needed anxiety 05/18/2017 08/15/2017 Inactive hydrochlorothiazide 12.5 mg tablet RxNorm: 493507 1 Tablet(s) PO daily 04/22/2017 05/21/2017 Inactive hydrochlorothiazide 12.5 mg tablet RxNorm: 992671 1 Tablet(s) PO daily 04/22/2017 04/21/2017 Inactive Cipro 500 mg tablet RxNorm: 350755 1 Tablet(s) PO BID 04/16/2017 04/22/2017 Inactive Zofran 4 mg tablet RxNorm: 276614 1 Tablet(s) PO BID as needed nausea and vomitting 04/15/2017 04/19/2017 Inactive Lipitor 10 mg tablet RxNorm: 337340 1 Tablet(s) PO QPM 03/30/2017 05/26/2017 Inactive OKAY TO DISPENSE GENERIC Kenalog 40 mg/mL suspension for injection RxNorm: 2516217 1 Milliliter(s) Inj 03/16/2017 03/16/2017 Inactive doxazosin 4 mg tablet RxNorm: 950315 1.5 Tablet(s) PO BID 03/16/2017 05/02/2017 Inactive prednisone 10 mg tablets in a dose pack RxNorm: 617424 Tablet(s) take dose pack as directed PO take with food 03/16/2017 05/23/2017 Inactive Kenalog 40 mg/mL suspension for injection RxNorm: 8037164 Milliliter(s) Inj 03/12/2017 03/12/2017 Inactive Zithromax Z-Juan 250 mg tablet RxNorm: 804223 1 Tablet(s) PO daily 03/11/2017 03/10/2017 Inactive zpack as directed Zithromax Z-Juan 250 mg tablet RxNorm: 618176 1 Tablet(s) PO daily 03/11/2017 03/15/2017 Inactive zpack as directed doxazosin 4 mg tablet RxNorm: 232414 1.5 Tablet(s) PO BID 02/12/2017 03/15/2017 Inactive fluticasone 50 mcg/actuation nasal spray,suspension RxNorm: 6112258 1 SPRAY NASAL BID 02/05/2017 05/05/2018 Inactive metoprolol tartrate 75 mg tablet RxNorm: 4962190 1 Tablet(s) PO BID 01/29/2017 07/19/2017 Inactive metoprolol tartrate 75 mg tablet RxNorm: 8585763 1 Tablet(s) PO BID 01/29/2017 01/28/2017 Inactive doxazosin 4 mg tablet RxNorm: 721518 1 Tablet(s) PO BID 01/20/2017 02/11/2017 Inactive pantoprazole 40 mg tablet,delayed release RxNorm: 712511 1 Tablet(s) PO daily 12/24/2016 01/19/2017 Inactive pantoprazole 40 mg tablet,delayed release RxNorm: 569883 1 Tablet(s) PO daily 12/24/2016 12/23/2016 Inactive alprazolam 0.5 mg tablet RxNorm: 647437 1 Tablet(s) PO TID as needed anxiety 12/03/2016 04/01/2017 Inactive fluticasone 50 mcg/actuation nasal spray,suspension RxNorm: 9468624 1 [place] NASAL BID 11/25/2016 12/24/2016 Inactive Dexilant 60 mg capsule, delayed release RxNorm: 474334 1 Capsule(s) PO daily 11/25/2016 11/24/2016 Inactive fluticasone 50 mcg/actuation nasal spray,suspension RxNorm: 7979554 1 [place] NASAL BID 11/25/2016 11/24/2016 Inactive fluticasone 50 mcg/actuation nasal spray,suspension RxNorm: 4897436 1 [place] NASAL BID 11/25/2016 11/24/2016 Inactive Dexilant 60 mg capsule, delayed release RxNorm: 606784 1 Capsule(s) PO daily 11/25/2016 12/23/2016 Inactive ProAir RespiClick 90 mcg/actuation breath activated RxNorm: 6877221 1 INH bid and QID as needed 11/19/2016 05/17/2017 Inactive Please send STAT Flonase Allergy Relief 50 mcg/actuation nasal spray,suspension RxNorm: 7417508 1 [place] NASAL BID 11/19/2016 11/24/2016 Inactive glimepiride 4 mg tablet RxNorm: 689184 1 Tablet(s) PO daily 11/19/2016 11/13/2017 Inactive metoprolol tartrate 50 mg tablet RxNorm: 663736 1 Tablet(s) PO BID 11/19/2016 01/28/2017 Inactive Flonase Allergy Relief 50 mcg/actuation nasal spray,suspension RxNorm: 6445316 1 [place] NASAL BID 11/17/2016 11/18/2016 Inactive metoprolol tartrate 50 mg tablet RxNorm: 726462 1 Tablet(s) PO BID 11/17/2016 11/18/2016 Inactive ProAir RespiClick 90 mcg/actuation breath activated RxNorm: 3876088 1 INH bid and QID as needed 11/17/2016 11/16/2016 Inactive glimepiride 4 mg tablet RxNorm: 713775 1 Tablet(s) PO daily 11/17/2016 11/18/2016 Inactive ProAir RespiClick 90 mcg/actuation breath activated RxNorm: 2742408 1 INH bid and QID as needed 11/17/2016 11/18/2016 Inactive Please send STAT Kenalog 40 mg/mL suspension for injection RxNorm: 5184029 1 Milliliter(s) Inj 11/05/2016 11/05/2016 Inactive azithromycin 250 mg tablet RxNorm: 481377 Tablet(s) PO 2 tabs on day #1, then daily x 4 days 11/05/2016 12/23/2016 Inactive doxazosin 4 mg tablet RxNorm: 182023 1 Tablet(s) PO QPM 10/02/2016 01/19/2017 Inactive doxazosin 4 mg tablet RxNorm: 522491 1 Tablet(s) PO QPM 09/29/2016 10/01/2016 Inactive doxazosin 4 mg tablet RxNorm: 758147 1 Tablet(s) PO QPM 09/21/2016 09/28/2016 Inactive Cipro 500 mg tablet RxNorm: 584792 1 Tablet(s) PO BID 09/18/2016 09/17/2016 Inactive Cipro 500 mg tablet RxNorm: 155530 1 Tablet(s) PO BID 09/18/2016 09/24/2016 Inactive losartan 100 mg tablet RxNorm: 539603 1 Tablet(s) PO daily for high blood pressure 09/16/2016 09/15/2016 Inactive alprazolam 0.5 mg tablet RxNorm: 201898 1 Tablet(s) PO TID as needed anxiety 09/16/2016 11/14/2016 Inactive losartan 100 mg tablet RxNorm: 520534 1 Tablet(s) PO daily for high blood pressure 09/16/2016 08/15/2017 Inactive amlodipine 10 mg tablet RxNorm: 304349 1 Tablet(s) PO daily 08/03/2016 06/28/2017 Inactive Zyrtec 10 mg tablet RxNorm: 3137030 1 Tablet(s) PO daily 08/03/2016 09/15/2016 Inactive losartan 25 mg tablet RxNorm: 909787 1 Tablet(s) PO daily 07/08/2016 09/15/2016 Inactive Lipitor 10 mg tablet RxNorm: 510466 1 Tablet(s) PO QPM 07/08/2016 07/17/2016 Inactive OKAY TO DISPENSE GENERIC Lipitor 10 mg tablet RxNorm: 897499 1 Tablet(s) PO QPM 07/06/2016 07/07/2016 Inactive OKAY TO DISPENSE GENERIC losartan 25 mg tablet RxNorm: 593447 1 Tablet(s) PO daily 07/06/2016 07/07/2016 Inactive meclizine 25 mg tablet RxNorm: 411068 1 Tablet(s) PO TID as needed No Start Date Active Pazeo 0.7 % eye drops RxNorm: 9992546 Drop(s) ophthalmic (eye) as needed dry eyes No Start Date Active Zithromax Z-Juan 250 mg tablet RxNorm: 647606 1 Tablet(s) PO UD No Start Date 09/13/2017 Inactive glimepiride 4 mg tablet RxNorm: 374030 1 Tablet(s) PO daily No Start Date 11/16/2016 Inactive metoprolol tartrate 100 mg tablet RxNorm: 546435 1 Tablet(s) PO BID No Start Date 07/21/2017 Inactive naproxen 500 mg tablet RxNorm: 885265 1 Tablet(s) PO BID No Start Date 03/23/2017 Inactive amlodipine 5 mg tablet RxNorm: 658900 1 Tablet(s) PO daily No Start Date 08/02/2016 Inactive Parafon Forte DSC 500 mg tablet RxNorm: 396124 1 Tablet(s) PO QID No Start Date 01/29/2019 Inactive metoprolol tartrate 50 mg tablet RxNorm: 331773 1 Tablet(s) PO BID No Start Date 11/16/2016 Inactive Medication Administered Medication Codes Instructions Start Date Status Kenalog 40 mg/mL suspension for injection RxNorm: 5106667 Milliliter 01/02/2019 No longer Active Kenalog 40 mg/mL suspension for injection RxNorm: 9220813 1Milliliter 10/12/2018 No longer Active Kenalog 40 mg/mL suspension for injection RxNorm: 3727139 1Milliliter 03/16/2017 No longer Active Kenalog 40 mg/mL suspension for injection RxNorm: 7998888 Milliliter 03/12/2017 No longer Active Kenalog 40 mg/mL suspension for injection RxNorm: 7935484 1Milliliter 11/05/2016 No longer Active Immunizations Vaccine [...] Lipid Ord30 C/HDL 3.1 Ratio 08/18/2018 Microalbumin Yxo563 MicroAlb 7.5 mg/dL 08/18/2018 Cbc With Differential [...] 29.6 pg 08/18/2018 Cbc With Differential Ord2 Lynn% 10.6 % 08/18/2018 Cbc With Differential Ord2 [...] 1.69 K/ul 08/18/2018 Cbc With Differential Ord2 Lynn ABS# 0.6 K/ul 08/18/2018 Cbc With Differential Ord2 Eos ABS# 0.3 K/ul 08/18/2018 Cbc With Differential Ord2 Baso ABS# 0.0 K/ul 08/18/2018 Comp Metabolic Ras777 NA 137 mEq/L 08/18/2018 Comp Metabolic Hfs110 K 3.8 mEq/L 08/18/2018 Comp Metabolic Ngf666 CL 103 mEq/L 08/18/2018 Comp Metabolic Rfb339 CO2 26.0 mEq/L 08/18/2018 Comp Metabolic Qkw318 ANION GAP 12 08/18/2018 Comp Metabolic Zdu837 GLUCOSE 110 mg/dL 08/18/2018 Comp Metabolic Gzp230 Creat 1.2 mg/dL 08/18/2018 Comp Metabolic Trt534 eGFR 47 ml/min/1.73m2 08/18/2018 Comp Metabolic Eww332 BUN 25 mg/dL 08/18/2018 Comp Metabolic Isv008 B/C Ratio 21.0 Ratio 08/18/2018 Comp Metabolic Lzu284 CALCIUM 9.4 mg/dL 08/18/2018 Comp Metabolic Chi666 ALK PHOS 99 U/L 08/18/2018 Comp Metabolic Zbo932 AST(SGOT) 31 U/L 08/18/2018 Comp Metabolic Zlo913 ALT(SGPT) 27 U/L 08/18/2018 Comp Metabolic Zgf702 BILI T 0.7 mg/dL 08/18/2018 Comp Metabolic Csl873 ALBUMIN 4.2 g/dL 08/18/2018 Comp Metabolic Hpm739 TPRO 6.7 g/dL 08/18/2018 Comp Metabolic Vit184 GLOB 2.5 g/dL 08/18/2018 Comp Metabolic Zzb397 A/G Ratio 1.7 Ratio 08/18/2018 Comp Metabolic Bzr275 Osmo 279 mOsmo 08/18/2018 %Hba1C Kem029 % HbA1c 99229- 6 6.1 % 08/18/2018 %Hba1C Srx371 Gluc Ave 128 mg/dL 08/18/2018 Tsh Ord6 TSH (3rd IS) 3.93 uIU/mL 08/18/2018 Lipid Ord30 CHOL 146 mg/dL 04/15/2018 Lipid Ord30 HDL 62.0 mg/dl 04/15/2018 Lipid Ord30 TRIG 88 mg/dL 04/15/2018 Lipid Ord30 LDL 66 mg/dL 04/15/2018 Lipid Ord30 C/HDL 2.4 Ratio 04/15/2018 %Hba1C Huh487 % HbA1c 35399- 6 6.3 % 04/15/2018 %Hba1C Gsl023 Gluc Ave 134 mg/dL 04/15/2018 Cbc With [...] 30.2 pg 04/15/2018 Cbc With Differential Ord2 Lynn% 6.8 % 04/15/2018 Cbc With Differential Ord2 [...] 2.10 K/ul 04/15/2018 Cbc With Differential Ord2 Lynn ABS# 0.5 K/ul 04/15/2018 Cbc With Differential Ord2 Eos ABS# 0.2 K/ul 04/15/2018 Cbc With Differential Ord2 Baso ABS# 0.0 K/ul 04/15/2018 Comp Metabolic Bti985 NA 140 mEq/L 04/15/2018 Comp Metabolic Dwb062 K 4.3 mEq/L 04/15/2018 Comp Metabolic Jag835 CL 106 mEq/L 04/15/2018 Comp Metabolic Exx497 CO2 23.0 mEq/L 04/15/2018 Comp Metabolic Rxg224 ANION GAP 15 04/15/2018 Comp Metabolic Das678 GLUCOSE 90 mg/dL 04/15/2018 Comp Metabolic Ctm043 Creat 1.2 mg/dL 04/15/2018 Comp Metabolic Shv128 eGFR 45 ml/min/1.73m2 04/15/2018 Comp Metabolic Lwr143 BUN 28 mg/dL 04/15/2018 Comp Metabolic Dbi707 B/C Ratio 22.8 Ratio 04/15/2018 Comp Metabolic Syq852 CALCIUM 9.5 mg/dL 04/15/2018 Comp Metabolic Fzl126 ALK PHOS 95 U/L 04/15/2018 Comp Metabolic Lup648 AST(SGOT) 20 U/L 04/15/2018 Comp Metabolic Wyr325 ALT(SGPT) 13 U/L 04/15/2018 Comp Metabolic Dxj697 BILI T 0.5 mg/dL 04/15/2018 Comp Metabolic Wql017 ALBUMIN 4.1 g/dL 04/15/2018 Comp Metabolic Wmr410 TPRO 6.6 g/dL 04/15/2018 Comp Metabolic Wza891 GLOB 2.5 g/dL 04/15/2018 Comp Metabolic Pkm981 A/G Ratio 1.6 Ratio 04/15/2018 Comp Metabolic Oka290 Osmo 284 mOsmo 04/15/2018 Comp Metabolic Zbl577 NA 137 mEq/L 02/04/2018 Comp Metabolic Yxx125 K 4.0 mEq/L 02/04/2018 Comp Metabolic Bhg560 CL 104 mEq/L 02/04/2018 Comp Metabolic Flk337 CO2 27.0 mEq/L 02/04/2018 Comp Metabolic Ysg929 ANION GAP 10 02/04/2018 Comp Metabolic Wby727 GLUCOSE 212 mg/dL 02/04/2018 Comp Metabolic Mgc124 Creat 1.2 mg/dL 02/04/2018 Comp Metabolic Jok757 eGFR 47 ml/min/1.73m2 02/04/2018 Comp Metabolic Eaz791 BUN 20 mg/dL 02/04/2018 Comp Metabolic Xtd141 B/C Ratio 16.8 Ratio 02/04/2018 Comp Metabolic Dqt892 CALCIUM 8.9 mg/dL 02/04/2018 Comp Metabolic Wlz889 ALK PHOS 107 U/L 02/04/2018 Comp Metabolic Qcz304 AST(SGOT) 17 U/L 02/04/2018 Comp Metabolic Vol289 ALT(SGPT) 11 U/L 02/04/2018 Comp Metabolic Rjc712 BILI T 0.4 mg/dL 02/04/2018 Comp Metabolic Uzb674 ALBUMIN 3.8 g/dL 02/04/2018 Comp Metabolic Krh302 TPRO 6.2 g/dL 02/04/2018 Comp Metabolic Qzi306 GLOB 2.4 g/dL 02/04/2018 Comp Metabolic Epz083 A/G Ratio 1.6 Ratio 02/04/2018 Comp Metabolic Ekn949 Osmo 283 mOsmo 02/04/2018 %Hba1C Gud964 % HbA1c 30936- 6 6.3 % 12/30/2017 %Hba1C Dhl016 Gluc Ave 134 mg/dL 12/30/2017 Comp Metabolic Ets429 NA 142 mEq/L 12/30/2017 Comp Metabolic Kwx650 K 4.4 mEq/L 12/30/2017 Comp Metabolic Vrl861 CL 103 mEq/L 12/30/2017 Comp Metabolic Hpu468 CO2 31.0 mEq/L 12/30/2017 Comp Metabolic Mat100 ANION GAP 12 12/30/2017 Comp Metabolic Zch318 GLUCOSE 119 mg/dL 12/30/2017 Comp Metabolic Plh246 Creat 1.4 mg/dL 12/30/2017 Comp Metabolic Hjg234 eGFR 41 ml/min/1.73m2 12/30/2017 Comp Metabolic Isj750 BUN 27 mg/dL 12/30/2017 Comp Metabolic Hgy906 B/C Ratio 20.0 Ratio 12/30/2017 Comp Metabolic Etk936 CALCIUM 9.9 mg/dL 12/30/2017 Comp Metabolic Bai416 ALK PHOS 106 U/L 12/30/2017 Comp Metabolic Xoz815 AST(SGOT) 20 U/L 12/30/2017 Comp Metabolic Jdp388 ALT(SGPT) 13 U/L 12/30/2017 Comp Metabolic Jtz194 BILI T 0.7 mg/dL 12/30/2017 Comp Metabolic Xom345 ALBUMIN 4.2 g/dL 12/30/2017 Comp Metabolic Jrz579 TPRO 6.7 g/dL 12/30/2017 Comp Metabolic Sjn124 GLOB 2.6 g/dL 12/30/2017 Comp Metabolic Bik833 A/G Ratio 1.6 Ratio 12/30/2017 Comp Metabolic Cdf615 Osmo 289 mOsmo 12/30/2017 Lipid Ord30 CHOL 167 mg/dL 12/30/2017 Lipid Ord30 HDL 63.0 mg/dl 12/30/2017 Lipid Ord30 TRIG 89 mg/dL 12/30/2017 Lipid Ord30 LDL 86 mg/dL 12/30/2017 Lipid Ord30 C/HDL 2.7 Ratio 12/30/2017 Urine Culture Ucult Preliminary NO Growth Day 1 04/17/2017 Urine Culture Ucult Complete NO Growth Day 2 04/17/2017 Comp Metabolic Mmd303 NA 143 mEq/L 04/15/2017 Comp Metabolic Pfz097 K 4.6 mEq/L 04/15/2017 Comp Metabolic Sqv174 CL 110 mEq/L 04/15/2017 Comp Metabolic Lfp511 CO2 30.0 mEq/L 04/15/2017 Comp Metabolic Faj673 ANION GAP 8 04/15/2017 Comp Metabolic Amm812 GLUCOSE 159 mg/dL 04/15/2017 Comp Metabolic Axt259 Creat 1.1 mg/dL 04/15/2017 Comp Metabolic Hbu536 eGFR 54 ml/min/1.73m2 04/15/2017 Comp Metabolic Ber254 BUN 27 mg/dL 04/15/2017 Comp Metabolic Jqr243 B/C Ratio 25.7 Ratio 04/15/2017 Comp Metabolic Pwp748 CALCIUM 9.4 mg/dL 04/15/2017 Comp Metabolic Yhx419 ALK PHOS 93 U/L 04/15/2017 Comp Metabolic Gmp468 AST(SGOT) 19 U/L 04/15/2017 Comp Metabolic Tpm384 ALT(SGPT) 18 U/L 04/15/2017 Comp Metabolic Zhi711 BILI T 0.6 mg/dL 04/15/2017 Comp Metabolic Eow854 ALBUMIN 3.9 g/dL 04/15/2017 Comp Metabolic Vfx370 TPRO 6.5 g/dL 04/15/2017 Comp Metabolic Fph294 GLOB 2.6 g/dL 04/15/2017 Comp Metabolic Bbb532 A/G Ratio 1.5 Ratio 04/15/2017 Comp Metabolic Ldb666 Osmo 293 mOsmo 04/15/2017 Tsh Ord6 hTSH II 2.05 uIU/mL 04/15/2017 %Hba1C Ppl406 % HbA1c 37067- 6 6.3 % 04/15/2017 %Hba1C Qza048 Gluc Ave 134 mg/dL 04/15/2017 Cbc With [...] 29.0 pg 04/15/2017 Cbc With Differential Ord2 Lynn% 6.9 % 04/15/2017 Cbc With Differential Ord2 [...] 1.58 K/ul 04/15/2017 Cbc With Differential Ord2 Lynn ABS# 0.5 K/ul 04/15/2017 Cbc With Differential [...] Ord28 U-Com Culture to follow 04/15/2017 %Hba1C Oyp641 % HbA1c 79641- 6 5.8 % 01/07/2017 %Hba1C Zkt311 Gluc Ave 120 mg/dL 01/07/2017 Urine Culture Ucult Preliminary NO Growth Day 1 09/21/2016 Urine Culture Ucult Complete NO Growth Day 2 09/21/2016 %Hba1C Zyi094 % HbA1c 02494- 6 6.0 % 09/17/2016 %Hba1C Eln472 Gluc Ave 126 mg/dL 09/17/2016 Comp Metabolic Zxa741 NA 140 mEq/L 09/17/2016 Comp Metabolic Cjk886 K 4.1 mEq/L 09/17/2016 Comp Metabolic Kuy416 CL 105 mEq/L 09/17/2016 Comp Metabolic Syd802 CO2 29.0 mEq/L 09/17/2016 Comp Metabolic Aef451 ANION GAP 10 09/17/2016 Comp Metabolic Sho310 GLUCOSE 89 mg/dL 09/17/2016 Comp Metabolic Vwy342 Creat 0.9 mg/dL 09/17/2016 Comp Metabolic Uda668 eGFR 65 ml/min/1.73m2 09/17/2016 Comp Metabolic Ynz033 BUN 20 mg/dL 09/17/2016 Comp Metabolic Aer243 B/C Ratio 22.2 Ratio 09/17/2016 Comp Metabolic Sdb961 CALCIUM 9.3 mg/dL 09/17/2016 Comp Metabolic Oat975 ALK PHOS 107 U/L 09/17/2016 Comp Metabolic Ivp397 AST(SGOT) 22 U/L 09/17/2016 Comp Metabolic Ris158 ALT(SGPT) 15 U/L 09/17/2016 Comp Metabolic Ixy816 BILI T 0.7 mg/dL 09/17/2016 Comp Metabolic Ecz746 ALBUMIN 4.0 g/dL 09/17/2016 Comp Metabolic Lyx227 TPRO 6.8 g/dL 09/17/2016 Comp Metabolic Nob435 GLOB 2.8 g/dL 09/17/2016 Comp Metabolic Nev964 A/G Ratio 1.4 Ratio 09/17/2016 Comp Metabolic Pio666 Osmo 281 mOsmo 09/17/2016 Microalbumin Twf385 MicroAlb 44.3 mg/dL 09/17/2016 Tsh Ord6 hTSH [...] 29.0 pg 09/17/2016 Cbc With Differential Ord2 Lynn% 8.1 % 09/17/2016 Cbc With Differential Ord2 [...] 1.78 K/ul 09/17/2016 Cbc With Differential Ord2 Lynn ABS# 0.6 K/ul 09/17/2016 Cbc With Differential [...] Procedure Codes Date THER/PROPH/DIAG INJ SC/IM CPT-4: 97066 01/02/2019 TRIAMCINOLONE ACET INJ NOS CPT-4: J3301 01/02/2019 TRIAMCINOLONE ACET INJ NOS CPT-4: J3301 10/12/2018 THER/PROPH/DIAG INJ SC/IM CPT-4: 84355 10/12/2018 PPPS, SUBSEQ VISIT CPT- 4: G0439 09/06/2018 URINALYSIS NONAUTO W/O SCOPE CPT-4: 92470 12/29/2017 PPPS, SUBSEQ VISIT CPT- 4: G0439 03/30/2017 THER/PROPH/DIAG INJ SC/IM CPT-4: 91122 03/16/2017 TRIAMCINOLONE ACET INJ NOS CPT-4: J3301 03/16/2017 THER/PROPH/DIAG INJ SC/IM CPT-4: 54023 03/12/2017 TRIAMCINOLONE ACET INJ NOS CPT-4: J3301 03/12/2017 THER/PROPH/DIAG INJ SC/IM CPT-4: 12864 11/05/2016 TRIAMCINOLONE ACET INJ NOS CPT-4: J3301 11/05/2016 URINALYSIS NONAUTO W/O SCOPE CPT-4: 05676 09/18/2016 Vital Signs Date Vital 01/30/2019 Blood Pressure 1: 160/70 Code: 8480-6 Heart Rate 1: 53 bpm Height: 5'7" SpO2: 96% 01/16/2019 Blood Pressure 1: 156/70 Code: 8480-6 BMI: 30.1 Code: 44970-4 Heart Rate 1: 50 bpm Height: 5'7" SpO2: 98% Weight: 192 lbs 10/12/2018 Blood Pressure 1: 142/76 Code: 8480-6 BMI: 30.1 Code: 58082-3 Heart Rate 1: 83 bpm Height: 5'7" SpO2: 98% Weight: 192 lbs 09/06/2018 Blood Pressure 1: 142/66 Code: 8480-6 BMI: 30.9 Code: 05033-1 Heart Rate 1: 64 bpm Height: 5'7" SpO2: 98% Waist Measure (cm): 99 cm Weight: 197 lbs 08/16/2018 Blood Pressure 1: 140/70 Code: 8480-6 BMI: 34.4 Code: 27554-7 Heart Rate 1: 63 bpm Height: 5'7" SpO2: 95% Weight: 219 lbs 14 oz 04/12/2018 Blood Pressure 1: 160/70 Code: 8480-6 BMI: 33.0 Code: 49674-7 Heart Rate 1: 82 bpm Height: 5'7" SpO2: 95% Weight: 211 lbs 01/20/2018 Blood Pressure 1: 152/66 Code: 8480-6 BMI: 31.8 Code: 90950-6 Heart Rate 1: 52 bpm Height: 5'7" SpO2: 98% Temperature: 36.3 (C) / 97.3 (F) Weight: 203 lbs 12/29/2017 Blood Pressure 1: 168/72 Code: 8480-6 BMI: 32.1 Code: 85087-8 Heart Rate 1: 63 bpm Height: 5'7" SpO2: 98% Weight: 205 lbs 08/24/2017 Blood Pressure 1: 186/70 Code: 8480-6 Blood Pressure 1: 150/70 Code: 8480-6 BMI: 31.8 Code: 46391-1 Heart Rate 1: 53 bpm Height: 5'7" SpO2: 98% Weight: 203 lbs 07/26/2017 Blood Pressure 1: 206/78 Code: 8480-6 Blood Pressure 2: 210/84 Code: 8480-6 BMI: 32.0 Code: 86105-9 Heart Rate 1: 49 bpm Height: 5'7" SpO2: 97% Weight: 204 lbs 07/20/2017 Blood Pressure 1: 148/82 Code: 8480-6 Heart Rate 1: 90 bpm SpO2: 98% 05/27/2017 Blood Pressure 1: 142/72 Code: 8480-6 BMI: 30.5 Code: 06237-7 Heart Rate 1: 97 bpm Height: 5'7" [...] 1: 148/70 Code: 8480-6 BMI: 30.4 Code: 60209-4 Heart Rate 1: 54 bpm Height: 5'7" SpO2: 97% Weight: 194 lbs 03/30/2017 BMI: 33.2 Code: 70026-5 Height: 5'7" Weight: 212 lbs 03/16/2017 Blood Pressure 1: 140/80 Code: 8480-6 BMI: 34.0 Code: 86409-7 Heart Rate 1: 70 bpm Height: 5'7" SpO2: 95% Weight: 217 lbs 03/12/2017 Blood Pressure 1: 142/80 Code: 8480-6 BMI: 34.0 Code: 91410-8 Heart Rate 1: 76 bpm Height: 5'7" SpO2: 92% Weight: 217 lbs 02/17/2017 Blood Pressure 1: 162/64 Code: 8480-6 BMI: 32.9 Code: 52289-7 Heart Rate 1: 59 bpm Height: 5'7" SpO2: 97% Weight: 210 lbs 01/20/2017 Blood Pressure 1: 162/74 Code: 8480-6 BMI: 32.9 Code: 95163-8 Heart Rate 1: 56 bpm Height: 5'7" SpO2: 98% Weight: 210 lbs 11/17/2016 Blood Pressure 1: 156/60 Code: 8480-6 BMI: 34.8 Code: 07816-7 Heart Rate 1: 63 bpm Height: 5'7" SpO2: 96% Weight: 222 lbs 11/05/2016 Blood Pressure 1: 160/68 Code: 8480-6 BMI: 34.5 Code: 33676-4 Heart Rate 1: 66 bpm Height: 5'7" SpO2: 97% Temperature: 36.9 (C) / 98.5 (F) Weight: 220 lbs 09/21/2016 Blood Pressure 1: 180/72 Code: 8480-6 Blood Pressure 1: 166/72 Code: 8480-6 BMI: 32.1 Code: 40468-5 Heart Rate 1: 57 bpm Height: 5'7" SpO2: 98% Weight: 205 lbs 09/16/2016 Blood Pressure 1: 168/70 Code: 8480-6 Heart Rate 1: 49 bpm SpO2: 95% 08/03/2016 Blood Pressure 1: 162/70 Code: 8480-6 BMI: 32.0 Code: 59036-5 Heart Rate 1: 43 bpm Height: 5'7" SpO2: 98% Weight: 204 lbs 07/06/2016 Blood Pressure 1: 170/86 Code: 8480-6 BMI: 32.0 Code: 29965-6 Heart Rate 1: 48 bpm Height: 5'7" [...] data Encounters Encounter Performer Location Codes Date ) [id number] EST. PATIENT, LEVEL III Diagnosis: Essential (primary) hypertension[ICD10: I10] Diagnosis: Lumbago with sciatica, right side[ICD10: M54.41] [facility] CPT-4: 65492 01/30/2019 ([id number]) 81082 EST. PATIENT, LEVEL III Diagnosis: Essential (primary) hypertension[ICD10: I10] Diagnosis: Other allergic rhinitis[ICD10: J30.89] [facility] CPT-4: 62983 01/16/2019 12856 EST. PATIENT, LEVEL IV Diagnosis: Other acute sinusitis[ICD10: J01.80] Diagnosis: Other allergic rhinitis[ICD10: J30.89] Krysta Camejo MD, [facility] CPT- 4: 95001 10/12/2018 ([id number]) 94150 EST. PATIENT, LEVEL IV Diagnosis: Essential (primary) hypertension[ICD10: I10] Diagnosis: Type 2 diabetes mellitus without complications[ICD10: E11.9] Diagnosis: Mixed hyperlipidemia[ICD10: E78.2] Fifi Camejo MD, [facility] CPT- 4: 32876 08/16/2018 ([id number]) 61681 EST. PATIENT, LEVEL IV Diagnosis: Type 2 diabetes mellitus without complications[ICD10: E11.9] Diagnosis: Mixed hyperlipidemia[ICD10: E78.2] Diagnosis: Essential (primary) hypertension[ICD10: I10] Diagnosis: Dysuria[ICD10: R30.0] Diagnosis: Pain in left foot[ICD10: M79.672] Fifi Camejo MD, [facility] CPT- 4: 59898 04/12/2018 ([id number]) 03594 EST. PATIENT, LEVEL III Diagnosis: Otalgia, bilateral[ICD10: H92.03] Diagnosis: Other allergic rhinitis[ICD10: J30.89] Yuridia Camejo MD, [facility] CPT-4: 06458 01/20/2018 ([id number]) 16343 EST. PATIENT, LEVEL IV Diagnosis: Type 2 diabetes mellitus without complications[ICD10: E11.9] Diagnosis: Mixed hyperlipidemia[ICD10: E78.2] Diagnosis: Essential (primary) hypertension[ICD10: I10] Diagnosis: Dysuria[ICD10: R30.0] Fifi Camejo MD, [facility] CPT-4: 20445 12/29/2017 ([id number]) 41828 EST. PATIENT, LEVEL IV Diagnosis: Essential (primary) hypertension[ICD10: I10] Diagnosis: Cysts of left upper eyelid[ICD10: H02.824] Diagnosis: Pain in left foot[ICD10: M79.672] Fifi Camejo MD, [facility] CPT- 4: 67111 08/24/2017 ([id number]) 73932 EST. PATIENT, LEVEL III Diagnosis: Essential (primary) hypertension[ICD10: I10] Fifi Camejo MD, [facility] CPT-4: 34512 07/26/2017 ([id number]) Miscellaneous no charge Diagnosis: Essential (primary) hypertension[ICD10: I10] Fifi Camejo MD [facility] CPT-4: 00834 07/20/2017 61689 EST. PATIENT, LEVEL III Diagnosis: Otalgia, bilateral[ICD10: H92.03] Diagnosis: Dizziness and giddiness[ICD10: R42] Diagnosis: Mixed hyperlipidemia[ICD10: E78.2] Krysta Camejo MD [facility] CPT-4: 46967 05/27/2017 ([id number]) Miscellaneous no charge Diagnosis: Essential (primary) hypertension[ICD10: I10] Krysta Camejo MD [facility] CPT-4: 47875 05/07/2017 ([id number]) 26574 EST. PATIENT, LEVEL IV Diagnosis: Otalgia, bilateral[ICD10: H92.03] Diagnosis: Dizziness and giddiness[ICD10: R42] Diagnosis: Orthostatic hypotension[ICD10: I95.1] Fifi Camejo MD [facility] CPT-4: 60573 05/03/2017 83366 EST. PATIENT, LEVEL IV Diagnosis: Essential (primary) hypertension[ICD10: I10] Diagnosis: Type 2 diabetes mellitus without complications[ICD10: E11.9] Diagnosis: Gastro-esophageal reflux disease without esophagitis[ICD10: K21.9] Diagnosis: Dizziness and giddiness[ICD10: R42] Diagnosis: Dysuria[ICD10: R30.0] Diagnosis: Other malaise[ICD10: R53.81] Krysta Camejo MD [facility] CPT-4: 87320 04/15/2017 ([id number]) 75283 EST. PATIENT, LEVEL IV Diagnosis: Type 2 diabetes mellitus without complications[ICD10: E11.9] Diagnosis: Otalgia, bilateral[ICD10: H92.03] Diagnosis: Essential (primary) hypertension[ICD10: I10] Diagnosis: Other allergic rhinitis[ICD10: J30.89] Fifi Camejo MD [facility] CPT-4: 59913 03/16/2017 64890 EST. PATIENT, LEVEL IV Diagnosis: Other acute sinusitis[ICD10: J01.80] Diagnosis: Acute suppurative otitis media without spontaneous rupture of ear drum, bilateral[ICD10: H66.003] Diagnosis: Other allergic rhinitis[ICD10: J30.89] Krysta Camejo MD [facility] CPT- 4: 91639 03/12/2017 ([id number]) 36589 EST. PATIENT, LEVEL IV Diagnosis: Essential (primary) hypertension[ICD10: I10] Diagnosis: Type 2 diabetes mellitus without complications[ICD10: E11.9] Fifi Camejo MD [facility] CPT-4: 07363 02/17/2017 ([id number]) 05448 EST. PATIENT, LEVEL IV Diagnosis: Essential (primary) hypertension[ICD10: I10] Diagnosis: Type 2 diabetes mellitus without complications[ICD10: E11.9] Fifi Camejo MD [facility] CPT-4: 33927 01/20/2017 ([id number]) 48257 EST. PATIENT, LEVEL IV Diagnosis: Essential (primary) hypertension[ICD10: I10] Diagnosis: Type 2 diabetes mellitus without complications[ICD10: E11.9] Diagnosis: Gastro-esophageal reflux disease without esophagitis[ICD10: K21.9] Fifi Camejo MD [facility] CPT-4: 15119 11/17/2016 ([id number]) 26875 EST. PATIENT, LEVEL III Diagnosis: Acute bronchitis due to other specified organisms[ICD10: J20.8] Diagnosis: Cough[ICD10: R05] Fifi Camejo MD [facility] CPT-4: 29101 11/05/2016 ([id number]) 23820 EST. PATIENT, LEVEL IV Diagnosis: Essential (primary) hypertension[ICD10: I10] Diagnosis: Type 2 diabetes mellitus without complications[ICD10: E11.9] Fifi Camejo MD [facility] CPT-4: 61138 09/21/2016 ([id number]) Miscellaneous no charge Diagnosis: Essential (primary) hypertension[ICD10: I10] Fifi Camejo MD [facility] CPT-4: 71856 09/16/2016 ([id number]) 09807 EST. PATIENT, LEVEL III Diagnosis: Type 2 diabetes mellitus without complications[ICD10: E11.9] Diagnosis: Essential (primary) hypertension[ICD10: I10] [facility] CPT-4: 01039 08/03/2016 ([id number]) OFFICE VISIT, NEW - LEVEL 4 Diagnosis: Essential (primary) hypertension[ICD10: I10] Diagnosis: Type 2 diabetes mellitus without complications[ICD10: E11.9] Diagnosis: Carpal tunnel syndrome, left upper limb[ICD10: G56.02] Diagnosis: Right upper quadrant pain[ICD10: R10.11] Diagnosis: Mixed hyperlipidemia[ICD10: E78.2] [facility] CPT- 4: 64192 07/06/2016 Plan of Care Planned Activity Notes [...] not improve or if they worsen. 01/30/2019 Patient Education: Patient Medication Summary Completed [...] spray. 10/12/2018 Appointment: Krysta Dale WPtel: [phone] [facility] (30 min) Complex 10/12/2018 Patient Education: Patient [...] care surrogate. 09/06/2018 Appointment: Yuridia Walsh WPtel[phone] [facility] - Annual Wellness Visit 09/06/2018 Patient Education: Patient Medication Summary Completed 09/06/2018 Appointment: Yuridia Walsh WPtel: [phone] [facility] - Annual Wellness Visit 08/29/2018 [...] dications. 08/16/2018 [phone] ([facility] min) Moderate 08/16/2018 Patient Education: Patient [...] foot. 04/12/2018 App[phone] [place] (15 min) Moderate 04/12/2018 Patient Education: Patient Medication Summary Completed 04/12/2018 Care Plan: Referral Order SNOMED-CT : [id number] Pending 04/12/2018 Patient Education: Patient Medication Summary [...] spray. 01/20/2018 App[facility]ment[phone] [phone] (15 min) Moderate 01/20/2018 Patient Education: Patient [...] controlled. 12/29/2017 App[facility]ment[phone] [facility] (15 min) Moderate 12/29/2017 Patient Education: Patient [...] - recommended referral to Dr. Anders in [place] 08/24/2017 App[facility]ment: [phone] (15 min) Moderate 08/24/2017 Patient Education: Patient Medication Summary Completed 08/24/2017 Care Plan: Referral Order SNOMED-CT : [id number] Pending 08/24/2017 Visit Plan: Hypertension - uncontrolled [...] above. 07/26/2017 Appointment: [phone] [facility] (15 min) Moderate 07/26/2017 Patient Education: Patient [...] Appointment: Krysta Dale WPtel: [facility] (15 min) Moderate 05/27/2017 Patient Education: Patient Medication Summary Completed 05/27/2017 Appointment: Nurse Visit 05/07/2017 Patient Education: Patient Medication Summary Completed 05/07/2017 Visit Plan: Persistent vergito with bilateral air-fluid levels and ear pain. Pt was seen by Dr. Calvo- she did not like his response to her complaints. I have recommended a referral to ENT in [place] or [place]. I suspect she may need myringotomy tubes. Pt to continue with flonase. Orthostatic hypotension - dc doxazosin. Monitor blood pressures at home. stop the doxazosin meclizine change to 1/2 pill three times a day come back on Wednesday for blood pressure check 05/03/2017 Appointment: Fifi Camejo WPtel[facility] (15 min) Moderate 05/03/2017 Patient Education: Patient Medication Summary Completed 05/03/2017 Appointment: Fifi Camejo WPtel: [facility] (15 min) Moderate 04/21/2017 Visit Plan: Hypertension, [...] control. 04/15/2017 App[facility]ment[phone] ([facility] min) Complex 04/15/2017 Patient Education: Patient [...] surrogate. 03/30/2017 Appointment: [phone] [facility] [facility] - Annual Wellness Visit 03/30/2017 [...] home. 03/16/2017 App[facility]ment[phone] ([facility] min) Complex 03/16/2017 Patient Education: Patient Medication Summary Completed 03/16/2017 Patient Education: Obesity Completed 03/16/2017 Care Plan: Referral Order SNOMED-CT : [id number] Pending 03/16/2017 Visit Plan: Allergies - chronic [...] worsen. 03/12/2017 Appointment: [phone] [facility] (15 min) Moderate 03/12/2017 Patient Education: Patient [...] controlled. 02/17/2017 App[facility]ment: [phone] [facility] ([facility] min) Complex 02/17/2017 Patient Education: Patient [...] controlled. 01/20/2017 App[facility]ment: [phone] [facility] (30 min) Complex 01/20/2017 Patient Education: Patient [...] of dexilant 11/17/2016 Appointment: Fifi Camejo WPtel: [phone] [facility] (30 min) Complex 11/17/2016 Patient Education: Patient [...] range. 09/21/2016 App[facility]ment: [phone] (15 min) Moderate 09/21/2016 Patient Education: Patient [...] time. 08/03/2016 Appointment: [phone] [facility] (15 min) Moderate 08/03/2016 Patient Education: Patient [...] improving. 07/06/2016 Appointment: [phone] [facility] [facility] 07/06/2016 Patient Education: Patient Medication [...] monitor your heart rate Consider referral for pumper hand for possible stress test if needed. Call [...] monitor your heart rate Consider referral for pumper hand for possible stress test if needed. Call [...] have recommended a referral to ENT in [place] or [place]. I suspect she may need myringotomy tubes. [...] - recommended referral to Dr. Anders in [place]
--- OUTSIDE RECORDS SUMMARY | 2019-03-08 16:07 | XMS REPORT | CCD ---
Author Author Fifi Camejo Organization Fifi Camejo MD, [facility] Address [address] [place] [address] Phone Care Team Providers Care Account Retention Representative Name Role Phone PP Unavailable CCM Unavailable Summary Purpose Interface Exchange Insurance Providers Payer name Policy type / Coverage type Covered democrat ID Effective Begin Date Effective End Date WPS Medicare Part B Medicare Part B [id number] 2018 Unknown FOR LIFE WPS Medicare Part B [id number] Unknown Family history Father Diagnosis Age At Onset Cancer Unknown Brother Diagnosis Age At Onset Diabetes mellitus Type 2 Unknown Heart Attack Unknown Social History Social History Element Codes Description Effective Dates Marital status Unknown Wu 11/05/2016 Number of children Unknown 1 07/06/2016 Employment Unknown Retired 07/06/[address]: 107537102 Never smoker 07/06/[address]: 645653619 Never drinks alcohol 07/06/2016 Allergies, Adverse Reactions, Alerts Substance Reaction Codes Entered Date Inactivated Date Status Protonix hives RxNorm: 405650 09/06/2018 No Inactive Date Active IV DYE, [...] Instructions Voltaren 1 % topical gel RxNorm: 187843 4 Gram(s) TOP QID 01/30/2019 01/30/2019 Inactive Parafon Forte DSC 500 mg tablet RxNorm: 490675 1 Tablet(s) PO qid prn 01/30/2019 No Stop Date Active tramadol 50 mg tablet RxNorm: 747857 1 Tablet(s) PO qid prn 01/30/2019 No Stop Date Active diclofenac 1 % topical gel RxNorm: 242776 4 Gram(s) TOP QID 01/30/2019 01/24/2020 Active diclofenac 1 % topical gel RxNorm: 084925 4 Gram(s) TOP QID 01/30/2019 01/29/2019 Inactive atorvastatin 10 mg tablet RxNorm: 276541 1 Tablet(s) PO QPM 01/16/2019 01/10/2020 Active hydralazine 10 mg tablet RxNorm: 941940 1 Tablet(s) PO TID PRN 01/16/2019 07/14/2019 Active prn sbp over 150 alprazolam 0.5 mg tablet RxNorm: 315911 1 Tablet(s) PO TID as needed anxiety 01/16/2019 07/14/2019 Active fluticasone propionate 50 mcg/actuation nasal spray,suspension RxNorm: 5878641 2 [place] daily USE 1 SPRAY NASALLY TWICE A DAY 01/16/2019 01/10/2020 Active hydralazine 10 mg tablet RxNorm: 383375 1 Tablet(s) PO TID PRN 01/16/2019 01/15/2019 Inactive prn sbp over 150 clonidine HCl 0.1 mg tablet RxNorm: 302441 1/2 Tablet(s) PO QHS 01/16/2019 01/16/2019 Inactive cefdinir 300 mg capsule RxNorm: 038852 1 Capsule(s) PO BID 01/09/2019 01/15/2019 Inactive cefdinir 300 mg capsule RxNorm: 306639 1 Capsule(s) PO BID 01/09/2019 01/08/2019 Inactive Zithromax Z-Juan 250 mg tablet RxNorm: 279197 1 Tablet(s) PO UD 01/03/2019 01/07/2019 Inactive zpack as directed Kenalog 40 mg/mL suspension for injection RxNorm: 4199629 Milliliter(s) Inj 01/02/2019 01/02/2019 Inactive Zithromax Z-Juan 250 mg tablet RxNorm: 917094 1 Tablet(s) PO UD 12/30/2018 01/02/2019 Inactive zpack as directed metoprolol tartrate 50 mg tablet RxNorm: 510655 1/2 TABLET(S) PO BID 12/02/2018 No Stop Date Active amlodipine 10 mg tablet RxNorm: 688860 TAKE 1 TABLET DAILY 10/24/2018 No Stop Date Active cefdinir 300 mg capsule RxNorm: 775310 1 Capsule(s) PO BID 10/19/2018 10/22/2018 Inactive Zithromax Z-Juan 250 mg tablet RxNorm: 380997 1 Tablet(s) PO UD 10/19/2018 10/23/2018 Inactive zpack as directed glimepiride 4 mg tablet RxNorm: 230993 Tablet(s) 1 TABLET(S) PO DAILY 10/12/2018 No Stop Date Active cefdinir 300 mg capsule RxNorm: 140242 1 Capsule(s) PO BID 10/12/2018 10/18/2018 Inactive Zithromax Z-Juan 250 mg tablet RxNorm: 996437 1 Tablet(s) PO UD 10/12/2018 10/16/2018 Inactive zpack as directed Tessalon Perles 100 mg capsule RxNorm: 201825 2 Capsule(s) PO TID as needed cough 10/12/2018 10/16/2018 Inactive Kenalog 40 mg/mL suspension for injection RxNorm: 1271017 1 Milliliter(s) Inj 10/12/2018 10/12/2018 Inactive Zithromax Z-Juan 250 mg tablet RxNorm: 918705 1 Tablet(s) PO UD 08/22/2018 08/26/2018 Inactive zpack as directed clonidine HCl 0.1 mg tablet RxNorm: 093136 1 Tablet(s) PO QAM 08/16/2018 01/15/2019 Inactive losartan 100 mg tablet RxNorm: 150394 1 TABLET(S) PO DAILY FOR HIGH BLOOD PRESSURE 08/12/2018 No Stop Date Active alprazolam 0.5 mg tablet RxNorm: 055714 1 Tablet(s) PO TID as needed anxiety 06/30/2018 12/26/2018 Inactive fluticasone 50 mcg/actuation nasal spray,suspension RxNorm: 4193077 USE 1 SPRAY NASALLY TWICE A DAY 05/06/2018 01/15/2019 Inactive clonidine HCl 0.1 mg tablet RxNorm: 719550 1 Tablet(s) PO BID 04/14/2018 08/15/2018 Inactive clonidine HCl 0.1 mg tablet RxNorm: 792744 1 Tablet(s) PO TID 04/12/2018 04/13/2018 Inactive Zithromax Z-Juan 250 mg tablet RxNorm: 266388 1 Tablet(s) PO UD 01/20/2018 08/21/2018 Inactive disregard first rx for 1 - patient needs 3 packs-please dispense generic azithromycin Zithromax Z-Juan 250 mg tablet RxNorm: 247463 1 Tablet(s) PO UD 01/20/2018 01/19/2018 Inactive Zithromax Z-Juan 250 mg tablet RxNorm: 411013 1 Tablet(s) PO UD 01/20/2018 01/19/2018 Inactive disregard first rx for 1 - patient needs 3 packs Zithromax Z-Juan 250 mg tablet RxNorm: 923737 1 Tablet(s) PO UD 01/20/2018 01/19/2018 Inactive atorvastatin 10 mg tablet RxNorm: 943653 1 Tablet(s) PO QPM 12/30/2017 12/24/2018 Inactive atorvastatin 10 mg tablet RxNorm: 150139 1 Tablet(s) PO QPM 12/30/2017 12/29/2017 Inactive clonidine HCl 0.1 mg tablet RxNorm: 246903 1 Tablet(s) PO BID 12/29/2017 04/11/2018 Inactive Lipitor 10 mg tablet RxNorm: 162482 1 Tablet(s) PO QPM 12/29/2017 12/29/2017 Inactive OKAY TO DISPENSE GENERIC metoprolol tartrate 50 mg tablet RxNorm: 502977 1/2 Tablet(s) PO BID 12/29/2017 12/01/2018 Inactive alprazolam 0.5 mg tablet RxNorm: 611270 1 Tablet(s) PO TID as needed anxiety 11/18/2017 05/16/2018 Inactive glimepiride 4 mg tablet RxNorm: 418835 1 TABLET(S) PO DAILY 11/15/2017 10/11/2018 Inactive alprazolam 0.5 mg tablet RxNorm: 803985 1 Tablet(s) PO TID as needed anxiety 09/20/2017 11/17/2017 Inactive Zithromax Z-Juan 250 mg tablet RxNorm: 585914 1 Tablet(s) PO UD 09/20/2017 12/28/2017 Inactive Zithromax Z-Juan 250 mg tablet RxNorm: 082520 1 Tablet(s) PO UD 09/14/2017 09/19/2017 Inactive clonidine HCl 0.1 mg tablet RxNorm: 189363 1/2 Tablet(s) PO BID 08/24/2017 12/28/2017 Inactive amlodipine 10 mg tablet RxNorm: 435152 1 Tablet(s) PO daily 08/24/2017 08/18/2018 Inactive erythromycin 5 mg/gram (0.5 %) eye ointment RxNorm: 709463 1 Gram(s) ophthalmic (eye) QID left eye cyst 08/24/2017 09/06/2017 Inactive losartan 100 mg tablet RxNorm: 895487 1 Tablet(s) PO daily for high blood pressure 08/16/2017 08/10/2018 Inactive metoprolol tartrate 50 mg tablet RxNorm: 233353 1/2 Tablet(s) PO BID 07/26/2017 12/28/2017 Inactive clonidine HCl 0.1 mg tablet RxNorm: 873433 1/2 Tablet(s) PO BID 07/26/2017 08/23/2017 Inactive metoprolol tartrate 50 mg tablet RxNorm: 504675 1 Tablet(s) PO BID 07/21/2017 07/25/2017 Inactive amlodipine 10 mg tablet RxNorm: 422882 1 TABLET(S) PO DAILY 06/29/2017 08/23/2017 Inactive Lipitor 10 mg tablet RxNorm: 582637 1 Tablet(s) PO QPM 05/27/2017 12/28/2017 Inactive OKAY TO DISPENSE GENERIC alprazolam 0.5 mg tablet RxNorm: 513863 1 Tablet(s) PO TID as needed anxiety 05/18/2017 08/15/2017 Inactive hydrochlorothiazide 12.5 mg tablet RxNorm: 593519 1 Tablet(s) PO daily 04/22/2017 05/21/2017 Inactive hydrochlorothiazide 12.5 mg tablet RxNorm: 086672 1 Tablet(s) PO daily 04/22/2017 04/21/2017 Inactive Cipro 500 mg tablet RxNorm: 198456 1 Tablet(s) PO BID 04/16/2017 04/22/2017 Inactive Zofran 4 mg tablet RxNorm: 652984 1 Tablet(s) PO BID as needed nausea and vomitting 04/15/2017 04/19/2017 Inactive Lipitor 10 mg tablet RxNorm: 795773 1 Tablet(s) PO QPM 03/30/2017 05/26/2017 Inactive OKAY TO DISPENSE GENERIC Kenalog 40 mg/mL suspension for injection RxNorm: 9855095 1 Milliliter(s) Inj 03/16/2017 03/16/2017 Inactive doxazosin 4 mg tablet RxNorm: 577821 1.5 Tablet(s) PO BID 03/16/2017 05/02/2017 Inactive prednisone 10 mg tablets in a dose pack RxNorm: 128051 Tablet(s) take dose pack as directed PO take with food 03/16/2017 05/23/2017 Inactive Kenalog 40 mg/mL suspension for injection RxNorm: 2223429 Milliliter(s) Inj 03/12/2017 03/12/2017 Inactive Zithromax Z-Juan 250 mg tablet RxNorm: 087602 1 Tablet(s) PO daily 03/11/2017 03/10/2017 Inactive zpack as directed Zithromax Z-Juan 250 mg tablet RxNorm: 358942 1 Tablet(s) PO daily 03/11/2017 03/15/2017 Inactive zpack as directed doxazosin 4 mg tablet RxNorm: 824760 1.5 Tablet(s) PO BID 02/12/2017 03/15/2017 Inactive fluticasone 50 mcg/actuation nasal spray,suspension RxNorm: 9404555 1 SPRAY NASAL BID 02/05/2017 05/05/2018 Inactive metoprolol tartrate 75 mg tablet RxNorm: 5066713 1 Tablet(s) PO BID 01/29/2017 07/19/2017 Inactive metoprolol tartrate 75 mg tablet RxNorm: 3037420 1 Tablet(s) PO BID 01/29/2017 01/28/2017 Inactive doxazosin 4 mg tablet RxNorm: 950516 1 Tablet(s) PO BID 01/20/2017 02/11/2017 Inactive pantoprazole 40 mg tablet,delayed release RxNorm: 334951 1 Tablet(s) PO daily 12/24/2016 01/19/2017 Inactive pantoprazole 40 mg tablet,delayed release RxNorm: 796459 1 Tablet(s) PO daily 12/24/2016 12/23/2016 Inactive alprazolam 0.5 mg tablet RxNorm: 502847 1 Tablet(s) PO TID as needed anxiety 12/03/2016 04/01/2017 Inactive fluticasone 50 mcg/actuation nasal spray,suspension RxNorm: 1037346 1 [place] NASAL BID 11/25/2016 12/24/2016 Inactive Dexilant 60 mg capsule, delayed release RxNorm: 195590 1 Capsule(s) PO daily 11/25/2016 11/24/2016 Inactive fluticasone 50 mcg/actuation nasal spray,suspension RxNorm: 7277645 1 [place] NASAL BID 11/25/2016 11/24/2016 Inactive fluticasone 50 mcg/actuation nasal spray,suspension RxNorm: 0369812 1 [place] NASAL BID 11/25/2016 11/24/2016 Inactive Dexilant 60 mg capsule, delayed release RxNorm: 430500 1 Capsule(s) PO daily 11/25/2016 12/23/2016 Inactive ProAir RespiClick 90 mcg/actuation breath activated RxNorm: 5298961 1 INH bid and QID as needed 11/19/2016 05/17/2017 Inactive Please send STAT Flonase Allergy Relief 50 mcg/actuation nasal spray,suspension RxNorm: 2674235 1 [place] NASAL BID 11/19/2016 11/24/2016 Inactive glimepiride 4 mg tablet RxNorm: 606091 1 Tablet(s) PO daily 11/19/2016 11/13/2017 Inactive metoprolol tartrate 50 mg tablet RxNorm: 309918 1 Tablet(s) PO BID 11/19/2016 01/28/2017 Inactive Flonase Allergy Relief 50 mcg/actuation nasal spray,suspension RxNorm: 6804467 1 [place] NASAL BID 11/17/2016 11/18/2016 Inactive metoprolol tartrate 50 mg tablet RxNorm: 521027 1 Tablet(s) PO BID 11/17/2016 11/18/2016 Inactive ProAir RespiClick 90 mcg/actuation breath activated RxNorm: 5462330 1 INH bid and QID as needed 11/17/2016 11/16/2016 Inactive glimepiride 4 mg tablet RxNorm: 063330 1 Tablet(s) PO daily 11/17/2016 11/18/2016 Inactive ProAir RespiClick 90 mcg/actuation breath activated RxNorm: 9437544 1 INH bid and QID as needed 11/17/2016 11/18/2016 Inactive Please send STAT Kenalog 40 mg/mL suspension for injection RxNorm: 0846399 1 Milliliter(s) Inj 11/05/2016 11/05/2016 Inactive azithromycin 250 mg tablet RxNorm: 807966 Tablet(s) PO 2 tabs on day #1, then daily x 4 days 11/05/2016 12/23/2016 Inactive doxazosin 4 mg tablet RxNorm: 299914 1 Tablet(s) PO QPM 10/02/2016 01/19/2017 Inactive doxazosin 4 mg tablet RxNorm: 257014 1 Tablet(s) PO QPM 09/29/2016 10/01/2016 Inactive doxazosin 4 mg tablet RxNorm: 856572 1 Tablet(s) PO QPM 09/21/2016 09/28/2016 Inactive Cipro 500 mg tablet RxNorm: 816313 1 Tablet(s) PO BID 09/18/2016 09/17/2016 Inactive Cipro 500 mg tablet RxNorm: 096688 1 Tablet(s) PO BID 09/18/2016 09/24/2016 Inactive losartan 100 mg tablet RxNorm: 233931 1 Tablet(s) PO daily for high blood pressure 09/16/2016 09/15/2016 Inactive alprazolam 0.5 mg tablet RxNorm: 360368 1 Tablet(s) PO TID as needed anxiety 09/16/2016 11/14/2016 Inactive losartan 100 mg tablet RxNorm: 924388 1 Tablet(s) PO daily for high blood pressure 09/16/2016 08/15/2017 Inactive amlodipine 10 mg tablet RxNorm: 797022 1 Tablet(s) PO daily 08/03/2016 06/28/2017 Inactive Zyrtec 10 mg tablet RxNorm: 3726638 1 Tablet(s) PO daily 08/03/2016 09/15/2016 Inactive losartan 25 mg tablet RxNorm: 043788 1 Tablet(s) PO daily 07/08/2016 09/15/2016 Inactive Lipitor 10 mg tablet RxNorm: 119194 1 Tablet(s) PO QPM 07/08/2016 07/17/2016 Inactive OKAY TO DISPENSE GENERIC Lipitor 10 mg tablet RxNorm: 130411 1 Tablet(s) PO QPM 07/06/2016 07/07/2016 Inactive OKAY TO DISPENSE GENERIC losartan 25 mg tablet RxNorm: 012985 1 Tablet(s) PO daily 07/06/2016 07/07/2016 Inactive meclizine 25 mg tablet RxNorm: 687539 1 Tablet(s) PO TID as needed No Start Date Active Pazeo 0.7 % eye drops RxNorm: 5864318 Drop(s) ophthalmic (eye) as needed dry eyes No Start Date Active Zithromax Z-Juan 250 mg tablet RxNorm: 389658 1 Tablet(s) PO UD No Start Date 09/13/2017 Inactive glimepiride 4 mg tablet RxNorm: 332793 1 Tablet(s) PO daily No Start Date 11/16/2016 Inactive metoprolol tartrate 100 mg tablet RxNorm: 853827 1 Tablet(s) PO BID No Start Date 07/21/2017 Inactive naproxen 500 mg tablet RxNorm: 726460 1 Tablet(s) PO BID No Start Date 03/23/2017 Inactive amlodipine 5 mg tablet RxNorm: 241309 1 Tablet(s) PO daily No Start Date 08/02/2016 Inactive Parafon Forte DSC 500 mg tablet RxNorm: 331758 1 Tablet(s) PO QID No Start Date 01/29/2019 Inactive metoprolol tartrate 50 mg tablet RxNorm: 979889 1 Tablet(s) PO BID No Start Date 11/16/2016 Inactive Medication Administered Medication Codes Instructions Start Date Status Kenalog 40 mg/mL suspension for injection RxNorm: 4354469 Milliliter 01/02/2019 No longer Active Kenalog 40 mg/mL suspension for injection RxNorm: 9881228 1Milliliter 10/12/2018 No longer Active Kenalog 40 mg/mL suspension for injection RxNorm: 1006148 1Milliliter 03/16/2017 No longer Active Kenalog 40 mg/mL suspension for injection RxNorm: 4872538 Milliliter 03/12/2017 No longer Active Kenalog 40 mg/mL suspension for injection RxNorm: 9583736 1Milliliter 11/05/2016 No longer Active Immunizations Vaccine [...] Lipid Ord30 C/HDL 3.1 Ratio 08/18/2018 Microalbumin Bzu221 MicroAlb 7.5 mg/dL 08/18/2018 Cbc With Differential [...] 29.6 pg 08/18/2018 Cbc With Differential Ord2 [place]% 10.6 % 08/18/2018 Cbc With Differential Ord2 [...] 1.69 K/ul 08/18/2018 Cbc With Differential Ord2 [place] ABS# 0.6 K/ul 08/18/2018 Cbc With Differential Ord2 Eos ABS# 0.3 K/ul 08/18/2018 Cbc With Differential Ord2 Baso ABS# 0.0 K/ul 08/18/2018 Comp Metabolic Zef155 NA 137 mEq/L 08/18/2018 Comp Metabolic Ysz240 K 3.8 mEq/L 08/18/2018 Comp Metabolic Ojl461 CL 103 mEq/L 08/18/2018 Comp Metabolic Jfu777 CO2 26.0 mEq/L 08/18/2018 Comp Metabolic Ezi009 ANION GAP 12 08/18/2018 Comp Metabolic Kkv287 GLUCOSE 110 mg/dL 08/18/2018 Comp Metabolic Xjb083 Creat 1.2 mg/dL 08/18/2018 Comp Metabolic Xdi731 eGFR 47 ml/min/1.73m2 08/18/2018 Comp Metabolic Ibo940 BUN 25 mg/dL 08/18/2018 Comp Metabolic Rrs486 B/C Ratio 21.0 Ratio 08/18/2018 Comp Metabolic Ezg956 CALCIUM 9.4 mg/dL 08/18/2018 Comp Metabolic Vrx102 ALK PHOS 99 U/L 08/18/2018 Comp Metabolic Jqn438 AST(SGOT) 31 U/L 08/18/2018 Comp Metabolic Spf693 ALT(SGPT) 27 U/L 08/18/2018 Comp Metabolic Fwa170 BILI T 0.7 mg/dL 08/18/2018 Comp Metabolic Pmw584 ALBUMIN 4.2 g/dL 08/18/2018 Comp Metabolic Czo313 TPRO 6.7 g/dL 08/18/2018 Comp Metabolic Svf868 GLOB 2.5 g/dL 08/18/2018 Comp Metabolic Jbr851 A/G Ratio 1.7 Ratio 08/18/2018 Comp Metabolic Eux895 Osmo 279 mOsmo 08/18/2018 %Hba1C Vyo411 % HbA1c 75406- 6 6.1 % 08/18/2018 %Hba1C Sce644 Gluc Ave 128 mg/dL 08/18/2018 Tsh Ord6 TSH (3rd IS) 3.93 uIU/mL 08/18/2018 Lipid Ord30 CHOL 146 mg/dL 04/15/2018 Lipid Ord30 HDL 62.0 mg/dl 04/15/2018 Lipid Ord30 TRIG 88 mg/dL 04/15/2018 Lipid Ord30 LDL 66 mg/dL 04/15/2018 Lipid Ord30 C/HDL 2.4 Ratio 04/15/2018 %Hba1C Urn892 % HbA1c 71447- 6 6.3 % 04/15/2018 %Hba1C Qiv112 Gluc Ave 134 mg/dL 04/15/2018 Cbc With [...] 30.2 pg 04/15/2018 Cbc With Differential Ord2 [place]% 6.8 % 04/15/2018 Cbc With Differential Ord2 [...] 2.10 K/ul 04/15/2018 Cbc With Differential Ord2 [place] ABS# 0.5 K/ul 04/15/2018 Cbc With Differential Ord2 Eos ABS# 0.2 K/ul 04/15/2018 Cbc With Differential Ord2 Baso ABS# 0.0 K/ul 04/15/2018 Comp Metabolic Bzo150 NA 140 mEq/L 04/15/2018 Comp Metabolic Onm058 K 4.3 mEq/L 04/15/2018 Comp Metabolic Sus586 CL 106 mEq/L 04/15/2018 Comp Metabolic Tyd386 CO2 23.0 mEq/L 04/15/2018 Comp Metabolic Jzz566 ANION GAP 15 04/15/2018 Comp Metabolic Mbz503 GLUCOSE 90 mg/dL 04/15/2018 Comp Metabolic Cfm859 Creat 1.2 mg/dL 04/15/2018 Comp Metabolic Ruo578 eGFR 45 ml/min/1.73m2 04/15/2018 Comp Metabolic Xrh272 BUN 28 mg/dL 04/15/2018 Comp Metabolic Qtm750 B/C Ratio 22.8 Ratio 04/15/2018 Comp Metabolic Hrq206 CALCIUM 9.5 mg/dL 04/15/2018 Comp Metabolic Wos487 ALK PHOS 95 U/L 04/15/2018 Comp Metabolic Qou290 AST(SGOT) 20 U/L 04/15/2018 Comp Metabolic Iec713 ALT(SGPT) 13 U/L 04/15/2018 Comp Metabolic Hgu695 BILI T 0.5 mg/dL 04/15/2018 Comp Metabolic Osm015 ALBUMIN 4.1 g/dL 04/15/2018 Comp Metabolic Vgo478 TPRO 6.6 g/dL 04/15/2018 Comp Metabolic Xlb297 GLOB 2.5 g/dL 04/15/2018 Comp Metabolic Uwk947 A/G Ratio 1.6 Ratio 04/15/2018 Comp Metabolic Dyw177 Osmo 284 mOsmo 04/15/2018 Comp Metabolic Srf413 NA 137 mEq/L 02/04/2018 Comp Metabolic Mjd609 K 4.0 mEq/L 02/04/2018 Comp Metabolic Jey337 CL 104 mEq/L 02/04/2018 Comp Metabolic Utd725 CO2 27.0 mEq/L 02/04/2018 Comp Metabolic Gen585 ANION GAP 10 02/04/2018 Comp Metabolic Ydc305 GLUCOSE 212 mg/dL 02/04/2018 Comp Metabolic Pmi574 Creat 1.2 mg/dL 02/04/2018 Comp Metabolic Nrf930 eGFR 47 ml/min/1.73m2 02/04/2018 Comp Metabolic Qib483 BUN 20 mg/dL 02/04/2018 Comp Metabolic Uoj797 B/C Ratio 16.8 Ratio 02/04/2018 Comp Metabolic Ldb693 CALCIUM 8.9 mg/dL 02/04/2018 Comp Metabolic Wlc014 ALK PHOS 107 U/L 02/04/2018 Comp Metabolic Rvf175 AST(SGOT) 17 U/L 02/04/2018 Comp Metabolic Bmn588 ALT(SGPT) 11 U/L 02/04/2018 Comp Metabolic Udj160 BILI T 0.4 mg/dL 02/04/2018 Comp Metabolic Taq002 ALBUMIN 3.8 g/dL 02/04/2018 Comp Metabolic Ufu515 TPRO 6.2 g/dL 02/04/2018 Comp Metabolic Eko338 GLOB 2.4 g/dL 02/04/2018 Comp Metabolic Uuc603 A/G Ratio 1.6 Ratio 02/04/2018 Comp Metabolic Vol091 Osmo 283 mOsmo 02/04/2018 %Hba1C Slx661 % HbA1c 31469- 6 6.3 % 12/30/2017 %Hba1C Hjk984 Gluc Ave 134 mg/dL 12/30/2017 Comp Metabolic Jyj451 NA 142 mEq/L 12/30/2017 Comp Metabolic Dej726 K 4.4 mEq/L 12/30/2017 Comp Metabolic Len503 CL 103 mEq/L 12/30/2017 Comp Metabolic Not898 CO2 31.0 mEq/L 12/30/2017 Comp Metabolic Acf399 ANION GAP 12 12/30/2017 Comp Metabolic Xmb485 GLUCOSE 119 mg/dL 12/30/2017 Comp Metabolic Vbe832 Creat 1.4 mg/dL 12/30/2017 Comp Metabolic Wmr707 eGFR 41 ml/min/1.73m2 12/30/2017 Comp Metabolic Tlw619 BUN 27 mg/dL 12/30/2017 Comp Metabolic Qrq493 B/C Ratio 20.0 Ratio 12/30/2017 Comp Metabolic Avw033 CALCIUM 9.9 mg/dL 12/30/2017 Comp Metabolic Yhy569 ALK PHOS 106 U/L 12/30/2017 Comp Metabolic Yqi667 AST(SGOT) 20 U/L 12/30/2017 Comp Metabolic Lzj425 ALT(SGPT) 13 U/L 12/30/2017 Comp Metabolic Yuf232 BILI T 0.7 mg/dL 12/30/2017 Comp Metabolic Gdy973 ALBUMIN 4.2 g/dL 12/30/2017 Comp Metabolic Fai550 TPRO 6.7 g/dL 12/30/2017 Comp Metabolic Yam575 GLOB 2.6 g/dL 12/30/2017 Comp Metabolic Npa517 A/G Ratio 1.6 Ratio 12/30/2017 Comp Metabolic Dsc026 Osmo 289 mOsmo 12/30/2017 Lipid Ord30 CHOL 167 mg/dL 12/30/2017 Lipid Ord30 HDL 63.0 mg/dl 12/30/2017 Lipid Ord30 TRIG 89 mg/dL 12/30/2017 Lipid Ord30 LDL 86 mg/dL 12/30/2017 Lipid Ord30 C/HDL 2.7 Ratio 12/30/2017 Urine Culture Ucult Preliminary NO Growth Day 1 04/17/2017 Urine Culture Ucult Complete NO Growth Day 2 04/17/2017 Comp Metabolic Neu068 NA 143 mEq/L 04/15/2017 Comp Metabolic Ukx633 K 4.6 mEq/L 04/15/2017 Comp Metabolic Wrb278 CL 110 mEq/L 04/15/2017 Comp Metabolic Zuv348 CO2 30.0 mEq/L 04/15/2017 Comp Metabolic Eud264 ANION GAP 8 04/15/2017 Comp Metabolic Pai942 GLUCOSE 159 mg/dL 04/15/2017 Comp Metabolic Syk137 Creat 1.1 mg/dL 04/15/2017 Comp Metabolic Zne777 eGFR 54 ml/min/1.73m2 04/15/2017 Comp Metabolic Olw847 BUN 27 mg/dL 04/15/2017 Comp Metabolic Dxq680 B/C Ratio 25.7 Ratio 04/15/2017 Comp Metabolic Evn312 CALCIUM 9.4 mg/dL 04/15/2017 Comp Metabolic Fmm860 ALK PHOS 93 U/L 04/15/2017 Comp Metabolic Rjg100 AST(SGOT) 19 U/L 04/15/2017 Comp Metabolic Nvf364 ALT(SGPT) 18 U/L 04/15/2017 Comp Metabolic Tvx779 BILI T 0.6 mg/dL 04/15/2017 Comp Metabolic Xje141 ALBUMIN 3.9 g/dL 04/15/2017 Comp Metabolic Zon392 TPRO 6.5 g/dL 04/15/2017 Comp Metabolic Dcs023 GLOB 2.6 g/dL 04/15/2017 Comp Metabolic Fgx182 A/G Ratio 1.5 Ratio 04/15/2017 Comp Metabolic Tay479 Osmo 293 mOsmo 04/15/2017 Tsh Ord6 hTSH II 2.05 uIU/mL 04/15/2017 %Hba1C Fxq323 % HbA1c 91017- 6 6.3 % 04/15/2017 %Hba1C Phl667 Gluc Ave 134 mg/dL 04/15/2017 Cbc With [...] 29.0 pg 04/15/2017 Cbc With Differential Ord2 [place]% 6.9 % 04/15/2017 Cbc With Differential Ord2 [...] 1.58 K/ul 04/15/2017 Cbc With Differential Ord2 [place] ABS# 0.5 K/ul 04/15/2017 Cbc With Differential [...] Ord28 U-Com Culture to follow 04/15/2017 %Hba1C Exm352 % HbA1c 88332- 6 5.8 % 01/07/2017 %Hba1C Qnn464 Gluc Ave 120 mg/dL 01/07/2017 Urine Culture Ucult Preliminary NO Growth Day 1 09/21/2016 Urine Culture Ucult Complete NO Growth Day 2 09/21/2016 %Hba1C Qfm904 % HbA1c 66734- 6 6.0 % 09/17/2016 %Hba1C Phf510 Gluc Ave 126 mg/dL 09/17/2016 Comp Metabolic Vgq952 NA 140 mEq/L 09/17/2016 Comp Metabolic Agi103 K 4.1 mEq/L 09/17/2016 Comp Metabolic Kja931 CL 105 mEq/L 09/17/2016 Comp Metabolic Jws762 CO2 29.0 mEq/L 09/17/2016 Comp Metabolic Tfc543 ANION GAP 10 09/17/2016 Comp Metabolic Gas199 GLUCOSE 89 mg/dL 09/17/2016 Comp Metabolic Axt598 Creat 0.9 mg/dL 09/17/2016 Comp Metabolic Buo842 eGFR 65 ml/min/1.73m2 09/17/2016 Comp Metabolic Fej362 BUN 20 mg/dL 09/17/2016 Comp Metabolic Snn409 B/C Ratio 22.2 Ratio 09/17/2016 Comp Metabolic Gll328 CALCIUM 9.3 mg/dL 09/17/2016 Comp Metabolic Eur229 ALK PHOS 107 U/L 09/17/2016 Comp Metabolic Mur039 AST(SGOT) 22 U/L 09/17/2016 Comp Metabolic Olt738 ALT(SGPT) 15 U/L 09/17/2016 Comp Metabolic Usb056 BILI T 0.7 mg/dL 09/17/2016 Comp Metabolic Dml409 ALBUMIN 4.0 g/dL 09/17/2016 Comp Metabolic Swf678 TPRO 6.8 g/dL 09/17/2016 Comp Metabolic Teh495 GLOB 2.8 g/dL 09/17/2016 Comp Metabolic Hfd930 A/G Ratio 1.4 Ratio 09/17/2016 Comp Metabolic Clm933 Osmo 281 mOsmo 09/17/2016 Microalbumin Ejg045 MicroAlb 44.3 mg/dL 09/17/2016 Tsh Ord6 hTSH [...] 29.0 pg 09/17/2016 Cbc With Differential Ord2 [place]% 8.1 % 09/17/2016 Cbc With Differential Ord2 [...] 1.78 K/ul 09/17/2016 Cbc With Differential Ord2 [place] ABS# 0.6 K/ul 09/17/2016 Cbc With Differential [...] Procedure Codes Date THER/PROPH/DIAG INJ SC/IM CPT-4: 97142 01/02/2019 TRIAMCINOLONE ACET INJ NOS CPT-4: J3301 01/02/2019 TRIAMCINOLONE ACET INJ NOS CPT-4: J3301 10/12/2018 THER/PROPH/DIAG INJ SC/IM CPT-4: 37093 10/12/2018 PPPS, SUBSEQ VISIT CPT- 4: G0439 09/06/2018 URINALYSIS NONAUTO W/O SCOPE CPT-4: 97313 12/29/2017 PPPS, SUBSEQ VISIT CPT- 4: G0439 03/30/2017 THER/PROPH/DIAG INJ SC/IM CPT-4: 80701 03/16/2017 TRIAMCINOLONE ACET INJ NOS CPT-4: J3301 03/16/2017 THER/PROPH/DIAG INJ SC/IM CPT-4: 42484 03/12/2017 TRIAMCINOLONE ACET INJ NOS CPT-4: J3301 03/12/2017 THER/PROPH/DIAG INJ SC/IM CPT-4: 14367 11/05/2016 TRIAMCINOLONE ACET INJ NOS CPT-4: J3301 11/05/2016 URINALYSIS NONAUTO W/O SCOPE CPT-4: 74609 09/18/2016 Vital Signs Date Vital 01/30/2019 Blood Pressure 1: 160/70 Code: 8480-6 Heart Rate 1: 53 bpm Height: 5'7" SpO2: 96% 01/16/2019 Blood Pressure 1: 156/70 Code: 8480-6 BMI: 30.1 Code: 30664-3 Heart Rate 1: 50 bpm Height: 5'7" SpO2: 98% Weight: 192 lbs 10/12/2018 Blood Pressure 1: 142/76 Code: 8480-6 BMI: 30.1 Code: 46572-2 Heart Rate 1: 83 bpm Height: 5'7" SpO2: 98% Weight: 192 lbs 09/06/2018 Blood Pressure 1: 142/66 Code: 8480-6 BMI: 30.9 Code: 68922-2 Heart Rate 1: 64 bpm Height: 5'7" SpO2: 98% Waist Measure (cm): 99 cm Weight: 197 lbs 08/16/2018 Blood Pressure 1: 140/70 Code: 8480-6 BMI: 34.4 Code: 27500-7 Heart Rate 1: 63 bpm Height: 5'7" SpO2: 95% Weight: 219 lbs 14 oz 04/12/2018 Blood Pressure 1: 160/70 Code: 8480-6 BMI: 33.0 Code: 77931-4 Heart Rate 1: 82 bpm Height: 5'7" SpO2: 95% Weight: 211 lbs 01/20/2018 Blood Pressure 1: 152/66 Code: 8480-6 BMI: 31.8 Code: 07503-1 Heart Rate 1: 52 bpm Height: 5'7" SpO2: 98% Temperature: 36.3 (C) / 97.3 (F) Weight: 203 lbs 12/29/2017 Blood Pressure 1: 168/72 Code: 8480-6 BMI: 32.1 Code: 72470-8 Heart Rate 1: 63 bpm Height: 5'7" SpO2: 98% Weight: 205 lbs 08/24/2017 Blood Pressure 1: 186/70 Code: 8480-6 Blood Pressure 1: 150/70 Code: 8480-6 BMI: 31.8 Code: 08712-3 Heart Rate 1: 53 bpm Height: 5'7" SpO2: 98% Weight: 203 lbs 07/26/2017 Blood Pressure 1: 206/78 Code: 8480-6 Blood Pressure 2: 210/84 Code: 8480-6 BMI: 32.0 Code: 08574-9 Heart Rate 1: 49 bpm Height: 5'7" SpO2: 97% Weight: 204 lbs 07/20/2017 Blood Pressure 1: 148/82 Code: 8480-6 Heart Rate 1: 90 bpm SpO2: 98% 05/27/2017 Blood Pressure 1: 142/72 Code: 8480-6 BMI: 30.5 Code: 64197-9 Heart Rate 1: 97 bpm Height: 5'7" [...] 1: 148/70 Code: 8480-6 BMI: 30.4 Code: 49693-8 Heart Rate 1: 54 bpm Height: 5'7" SpO2: 97% Weight: 194 lbs 03/30/2017 BMI: 33.2 Code: 44504-3 Height: 5'7" Weight: 212 lbs 03/16/2017 Blood Pressure 1: 140/80 Code: 8480-6 BMI: 34.0 Code: 68163-5 Heart Rate 1: 70 bpm Height: 5'7" SpO2: 95% Weight: 217 lbs 03/12/2017 Blood Pressure 1: 142/80 Code: 8480-6 BMI: 34.0 Code: 15169-5 Heart Rate 1: 76 bpm Height: 5'7" SpO2: 92% Weight: 217 lbs 02/17/2017 Blood Pressure 1: 162/64 Code: 8480-6 BMI: 32.9 Code: 20087-6 Heart Rate 1: 59 bpm Height: 5'7" SpO2: 97% Weight: 210 lbs 01/20/2017 Blood Pressure 1: 162/74 Code: 8480-6 BMI: 32.9 Code: 83667-2 Heart Rate 1: 56 bpm Height: 5'7" SpO2: 98% Weight: 210 lbs 11/17/2016 Blood Pressure 1: 156/60 Code: 8480-6 BMI: 34.8 Code: 89746-7 Heart Rate 1: 63 bpm Height: 5'7" SpO2: 96% Weight: 222 lbs 11/05/2016 Blood Pressure 1: 160/68 Code: 8480-6 BMI: 34.5 Code: 40786-7 Heart Rate 1: 66 bpm Height: 5'7" SpO2: 97% Temperature: 36.9 (C) / 98.5 (F) Weight: 220 lbs 09/21/2016 Blood Pressure 1: 180/72 Code: 8480-6 Blood Pressure 1: 166/72 Code: 8480-6 BMI: 32.1 Code: 51603-8 Heart Rate 1: 57 bpm Height: 5'7" SpO2: 98% Weight: 205 lbs 09/16/2016 Blood Pressure 1: 168/70 Code: 8480-6 Heart Rate 1: 49 bpm SpO2: 95% 08/03/2016 Blood Pressure 1: 162/70 Code: 8480-6 BMI: 32.0 Code: 25220-4 Heart Rate 1: 43 bpm Height: 5'7" SpO2: 98% Weight: 204 lbs 07/06/2016 Blood Pressure 1: 170/86 Code: 8480-6 BMI: 32.0 Code: 76433-0 Heart Rate 1: 48 bpm Height: 5'7" [...] Encounters Encounter Performer Location Codes Date ) 07910 EST. PATIENT, LEVEL III Diagnosis: Essential (primary) hypertension[ICD10: I10] Diagnosis: Lumbago with sciatica, right side[ICD10: M54.41] [facility] CPT-4: 88625 01/30/2019 ([id number]) 19251 EST. PATIENT, LEVEL III Diagnosis: Essential (primary) hypertension[ICD10: I10] Diagnosis: Other allergic rhinitis[ICD10: J30.89] [facility] CPT-4: 04143 01/16/2019 03320 EST. PATIENT, LEVEL IV Diagnosis: Other acute sinusitis[ICD10: J01.80] Diagnosis: Other allergic rhinitis[ICD10: J30.89] Krysta Camejo MD, [facility] CPT- 4: 62561 10/12/2018 ([id number]) 94776 EST. PATIENT, LEVEL IV Diagnosis: Essential (primary) hypertension[ICD10: I10] Diagnosis: Type 2 diabetes mellitus without complications[ICD10: E11.9] Diagnosis: Mixed hyperlipidemia[ICD10: E78.2] Fifi Camejo MD, [facility] CPT- 4: 51040 08/16/2018 ([id number]) 82130 EST. PATIENT, LEVEL IV Diagnosis: Type 2 diabetes mellitus without complications[ICD10: E11.9] Diagnosis: Mixed hyperlipidemia[ICD10: E78.2] Diagnosis: Essential (primary) hypertension[ICD10: I10] Diagnosis: Dysuria[ICD10: R30.0] Diagnosis: Pain in left foot[ICD10: M79.672] Fifi Camejo MD, [facility] CPT- 4: 81591 04/12/2018 ([id number]) 80065 EST. PATIENT, LEVEL III Diagnosis: Otalgia, bilateral[ICD10: H92.03] Diagnosis: Other allergic rhinitis[ICD10: J30.89] Yuridia Camejo MD, [facility] CPT-4: 96523 01/20/2018 ([id number]) 85977 EST. PATIENT, LEVEL IV Diagnosis: Type 2 diabetes mellitus without complications[ICD10: E11.9] Diagnosis: Mixed hyperlipidemia[ICD10: E78.2] Diagnosis: Essential (primary) hypertension[ICD10: I10] Diagnosis: Dysuria[ICD10: R30.0] Fifi Camejo MD, [facility] CPT-4: 62021 12/29/2017 ([id number]) 77454 EST. PATIENT, LEVEL IV Diagnosis: Essential (primary) hypertension[ICD10: I10] Diagnosis: Cysts of left upper eyelid[ICD10: H02.824] Diagnosis: Pain in left foot[ICD10: M79.672] Fifi Camejo MD, [facility] CPT- 4: 61858 08/24/2017 ([id number]) 70144 EST. PATIENT, LEVEL III Diagnosis: Essential (primary) hypertension[ICD10: I10] Fifi Camejo MD, [facility] CPT-4: 72493 07/26/2017 ([id number]) Miscellaneous no charge Diagnosis: Essential (primary) hypertension[ICD10: I10] Fifi Camejo MD [facility] CPT-4: 29439 07/20/2017 76115 EST. PATIENT, LEVEL III Diagnosis: Otalgia, bilateral[ICD10: H92.03] Diagnosis: Dizziness and giddiness[ICD10: R42] Diagnosis: Mixed hyperlipidemia[ICD10: E78.2] Krysta Camejo MD [facility] CPT-4: 10166 05/27/2017 ([id number]) Miscellaneous no charge Diagnosis: Essential (primary) hypertension[ICD10: I10] Krysta Camejo MD [facility] CPT-4: 87943 05/07/2017 ([id number]) 41912 EST. PATIENT, LEVEL IV Diagnosis: Otalgia, bilateral[ICD10: H92.03] Diagnosis: Dizziness and giddiness[ICD10: R42] Diagnosis: Orthostatic hypotension[ICD10: I95.1] Fifi Camejo MD [facility] CPT-4: 13489 05/03/2017 35581 EST. PATIENT, LEVEL IV Diagnosis: Essential (primary) hypertension[ICD10: I10] Diagnosis: Type 2 diabetes mellitus without complications[ICD10: E11.9] Diagnosis: Gastro-esophageal reflux disease without esophagitis[ICD10: K21.9] Diagnosis: Dizziness and giddiness[ICD10: R42] Diagnosis: Dysuria[ICD10: R30.0] Diagnosis: Other malaise[ICD10: R53.81] Krysta Camejo MD [facility] CPT-4: 31134 04/15/2017 ([id number]) 96653 EST. PATIENT, LEVEL IV Diagnosis: Type 2 diabetes mellitus without complications[ICD10: E11.9] Diagnosis: Otalgia, bilateral[ICD10: H92.03] Diagnosis: Essential (primary) hypertension[ICD10: I10] Diagnosis: Other allergic rhinitis[ICD10: J30.89] Fifi Camejo MD [facility] CPT-4: 73723 03/16/2017 01632 EST. PATIENT, LEVEL IV Diagnosis: Other acute sinusitis[ICD10: J01.80] Diagnosis: Acute suppurative otitis media without spontaneous rupture of ear drum, bilateral[ICD10: H66.003] Diagnosis: Other allergic rhinitis[ICD10: J30.89] Krysta Camejo MD [facility] CPT- 4: 82306 03/12/2017 ([id number]) 12483 EST. PATIENT, LEVEL IV Diagnosis: Essential (primary) hypertension[ICD10: I10] Diagnosis: Type 2 diabetes mellitus without complications[ICD10: E11.9] Fifi Camejo MD [facility] CPT-4: 33969 02/17/2017 ([id number]) 71877 EST. PATIENT, LEVEL IV Diagnosis: Essential (primary) hypertension[ICD10: I10] Diagnosis: Type 2 diabetes mellitus without complications[ICD10: E11.9] Fifi Camejo MD [facility] CPT-4: 10424 01/20/2017 ([id number]) 31224 EST. PATIENT, LEVEL IV Diagnosis: Essential (primary) hypertension[ICD10: I10] Diagnosis: Type 2 diabetes mellitus without complications[ICD10: E11.9] Diagnosis: Gastro-esophageal reflux disease without esophagitis[ICD10: K21.9] Fifi Camejo MD [facility] CPT-4: 78401 11/17/2016 ([id number]) 75359 EST. PATIENT, LEVEL III Diagnosis: Acute bronchitis due to other specified organisms[ICD10: J20.8] Diagnosis: Cough[ICD10: R05] Fifi Camejo MD [facility] CPT-4: 21310 11/05/2016 ([id number]) 81516 EST. PATIENT, LEVEL IV Diagnosis: Essential (primary) hypertension[ICD10: I10] Diagnosis: Type 2 diabetes mellitus without complications[ICD10: E11.9] Fifi Camejo MD [facility] CPT-4: 92105 09/21/2016 ([id number]) Miscellaneous no charge Diagnosis: Essential (primary) hypertension[ICD10: I10] Fifi Camejo MD [facility] CPT-4: 73658 09/16/2016 ([id number]) 15131 EST. PATIENT, LEVEL III Diagnosis: Type 2 diabetes mellitus without complications[ICD10: E11.9] Diagnosis: Essential (primary) hypertension[ICD10: I10] [facility] CPT-4: 17902 08/03/2016 ([id number]) OFFICE VISIT, NEW - LEVEL 4 Diagnosis: Essential (primary) hypertension[ICD10: I10] Diagnosis: Type 2 diabetes mellitus without complications[ICD10: E11.9] Diagnosis: Carpal tunnel syndrome, left upper limb[ICD10: G56.02] Diagnosis: Right upper quadrant pain[ICD10: R10.11] Diagnosis: Mixed hyperlipidemia[ICD10: E78.2] [facility] CPT- 4: 71774 07/06/2016 Plan of Care Planned Activity Notes [...] spray. 10/12/2018 Appointment: Krysta Dale WPtel: [phone] [facility] (30 min) Complex 10/12/2018 Patient Education: Patient [...] care surrogate. 09/06/2018 Appointment: Yuridia Walsh [facility]Ptel[phone] [facility] [place] - Annual Wellness Visit 09/06/2018 Patient Education: Patient Medication Summary Completed 09/06/2018 Appointment: Yuridia Walsh WPtel: [facility]5 [phone] [facility] [place] - Annual Wellness Visit 08/29/2018 Visit Plan: [...] dications. 08/16/2018 App[facility]ment[phone] (15 min) Moderate 08/16/2018 Patient Education: [...] foot. 04/12/2018 Appointment: [phone] [facility] [place] (15 min) Moderate 04/12/2018 Patient Education: Patient Medication Summary Completed 04/12/2018 Care Plan: Referral Order SNOMED-CT : [id number] Pending 04/12/2018 Patient Education: Patient Medication Summary [...] spray. 01/20/2018 Appointment: [phone] [phone] (15 min) Moderate 01/20/2018 Patient Education: [...] controlled. 12/29/2017 Appointment: [facility] [phone] [facility] (15 min) Moderate 12/29/2017 Patient Education: [...] - recommended referral to Dr. Anders in [place] 08/24/2017 Appointment: [phone] [facility] (15 min) Moderate 08/24/2017 Patient Education: Patient Medication Summary Completed 08/24/2017 Care Plan: Referral Order SNOMED-CT : [id number] Pending 08/24/2017 Visit Plan: Hypertension - uncontrolled [...] above. 07/26/2017 Appointment: [facility] [phone] [facility] (15 min) Moderate 07/26/2017 Patient Education: [...] to medications. 05/27/2017 Appointment: Krysta Dale WPtel: [facility] (15 min) Moderate 05/27/2017 Patient Education: Patient Medication Summary Completed 05/27/2017 Appointment: Nurse Visit 05/07/2017 Patient Education: Patient Medication Summary Completed 05/07/2017 Visit Plan: Persistent vergito with bilateral air-fluid levels and ear pain. Pt was seen by Dr. Calvo- she did not like his response to her complaints. I have recommended a referral to ENT in [place] or [place]. I suspect she may need myringotomy tubes. Pt to continue with flonase. Orthostatic hypotension - dc doxazosin. Monitor blood pressures at home. stop the doxazosin meclizine change to 1/2 pill three times a day come back on Wednesday for blood pressure check 05/03/2017 Appointment: Fifi Camejo WPtel: [facility] (15 min) Moderate 05/03/2017 Patient Education: Patient Medication Summary Completed 05/03/2017 Appointment: Fifi Camejo WPtel: [facility] (15 min) Moderate 04/21/2017 Visit Plan: [...] control. 04/15/2017 Appointment: [phone] [facility] (30 min) Complex 04/15/2017 Patient Education: [...] surrogate. 03/30/2017 Appointment: [facility] [phone] [facility] [facility] [place] - Annual Wellness Visit 03/30/2017 Patient Education: [...] home. 03/16/2017 Appointment: [facility]el[facility] [phone] [facility] (30 min) Complex 03/16/2017 Patient Education: Patient Medication Summary Completed 03/16/2017 Patient Education: Obesity Completed 03/16/2017 Care Plan: Referral Order SNOMED-CT : [id number] Pending 03/16/2017 Visit Plan: Allergies - chronic [...] worsen. 03/12/2017 Appointment: [phone] [facility] (15 min) Moderate 03/12/2017 Patient Education: [...] controlled. 02/17/2017 Appointment: [facility]Ptel[facility] [phone] [facility] (30 min) Complex 02/17/2017 Patient Education: [...] controlled. 01/20/2017 Appointment: [facility]el[facility] [phone] [facility] (30 min) Complex 01/20/2017 Patient Education: [...] of dexilant 11/17/2016 Appointment: Fifi Camejo WPtel: [phone] [facility] (30 min) Complex 11/17/2016 Patient Education: Patient [...] range. 09/21/2016 Appointment: [facility]Ptel[facility] [phone] [facility] (15 min) Moderate 09/21/2016 Patient Education: [...] this time. 08/03/2016 Appointment: [facility]el[facility] [phone] [facility] (15 min) Moderate 08/03/2016 Patient Education: [...] improving. 07/06/2016 Appointment: [facility]el[phone] [facility] New Patient 07/06/2016 Patient Education: Patient [...] monitor your heart rate Consider referral for binder cutter for possible stress test if needed. Call [...] monitor your heart rate Consider referral for binder cutter for possible stress test if needed. Call [...] have recommended a referral to ENT in [place] or [place]. I suspect she may need myringotomy tubes. [...] - recommended referral to Dr. Anders in [place]
--- OUTSIDE RECORDS SUMMARY | 2019-03-08 16:12 | XMS REPORT | CCD ---
Author Author Fifi Camejo Organization Fifi Camejo MD, [facility] Address [address] [place] [address] Phone Care Team Providers Care Lofter Name Role Phone PP Unavailable CCM Unavailable Summary Purpose Interface Exchange Insurance Providers Payer name Policy type / Coverage type Covered republican ID Effective Begin Date Effective End Date WPS Medicare Part B Medicare Part B [id number] 2018 Unknown FOR LIFE WPS Medicare Part B [id number] Unknown Family history Father Diagnosis Age At Onset Cancer Unknown Brother Diagnosis Age At Onset Diabetes mellitus Type 2 Unknown Heart Attack Unknown Social History Social History Element Codes Description Effective Dates Marital status Unknown Wu 11/05/2016 Number of children Unknown 1 07/06/2016 Employment Unknown Retired 07/06/[address]: 438135565 Never smoker 07/06/[address]: 243684665 Never drinks alcohol 07/06/2016 Allergies, Adverse Reactions, Alerts Substance Reaction Codes Entered Date Inactivated Date Status Protonix hives RxNorm: 373054 09/06/2018 No Inactive Date Active IV DYE, [...] Instructions Voltaren 1 % topical gel RxNorm: 088756 4 Gram(s) TOP QID 01/30/2019 04/29/2019 Active Parafon Forte DSC 500 mg tablet RxNorm: 921466 1 Tablet(s) PO qid prn 01/30/2019 No Stop Date Active tramadol 50 mg tablet RxNorm: 909586 1 Tablet(s) PO qid prn 01/30/2019 No Stop Date Active atorvastatin 10 mg tablet RxNorm: 425766 1 Tablet(s) PO QPM 01/16/2019 01/10/2020 Active hydralazine 10 mg tablet RxNorm: 008164 1 Tablet(s) PO TID PRN 01/16/2019 07/14/2019 Active prn sbp over 150 alprazolam 0.5 mg tablet RxNorm: 238662 1 Tablet(s) PO TID as needed anxiety 01/16/2019 07/14/2019 Active fluticasone propionate 50 mcg/actuation nasal spray,suspension RxNorm: 7616701 2 [place] daily USE 1 SPRAY NASALLY TWICE A DAY 01/16/2019 01/10/2020 Active hydralazine 10 mg tablet RxNorm: 823213 1 Tablet(s) PO TID PRN 01/16/2019 01/15/2019 Inactive prn sbp over 150 clonidine HCl 0.1 mg tablet RxNorm: 806458 1/2 Tablet(s) PO QHS 01/16/2019 01/16/2019 Inactive cefdinir 300 mg capsule RxNorm: 466775 1 Capsule(s) PO BID 01/09/2019 01/15/2019 Inactive cefdinir 300 mg capsule RxNorm: 667679 1 Capsule(s) PO BID 01/09/2019 01/08/2019 Inactive Zithromax Z-Juan 250 mg tablet RxNorm: 844635 1 Tablet(s) PO UD 01/03/2019 01/07/2019 Inactive zpack as directed Kenalog 40 mg/mL suspension for injection RxNorm: 5175405 Milliliter(s) Inj 01/02/2019 01/02/2019 Inactive Zithromax Z-Juan 250 mg tablet RxNorm: 783216 1 Tablet(s) PO UD 12/30/2018 01/02/2019 Inactive zpack as directed metoprolol tartrate 50 mg tablet RxNorm: 837242 1/2 TABLET(S) PO BID 12/02/2018 No Stop Date Active amlodipine 10 mg tablet RxNorm: 634427 TAKE 1 TABLET DAILY 10/24/2018 No Stop Date Active cefdinir 300 mg capsule RxNorm: 931763 1 Capsule(s) PO BID 10/19/2018 10/22/2018 Inactive Zithromax Z-Juan 250 mg tablet RxNorm: 359938 1 Tablet(s) PO UD 10/19/2018 10/23/2018 Inactive zpack as directed glimepiride 4 mg tablet RxNorm: 136596 Tablet(s) 1 TABLET(S) PO DAILY 10/12/2018 No Stop Date Active cefdinir 300 mg capsule RxNorm: 407748 1 Capsule(s) PO BID 10/12/2018 10/18/2018 Inactive Zithromax Z-Juan 250 mg tablet RxNorm: 137164 1 Tablet(s) PO UD 10/12/2018 10/16/2018 Inactive zpack as directed Tessalon Perles 100 mg capsule RxNorm: 014997 2 Capsule(s) PO TID as needed cough 10/12/2018 10/16/2018 Inactive Kenalog 40 mg/mL suspension for injection RxNorm: 1266374 1 Milliliter(s) Inj 10/12/2018 10/12/2018 Inactive Zithromax Z-Juan 250 mg tablet RxNorm: 175314 1 Tablet(s) PO UD 08/22/2018 08/26/2018 Inactive zpack as directed clonidine HCl 0.1 mg tablet RxNorm: 013413 1 Tablet(s) PO QAM 08/16/2018 01/15/2019 Inactive losartan 100 mg tablet RxNorm: 801905 1 TABLET(S) PO DAILY FOR HIGH BLOOD PRESSURE 08/12/2018 No Stop Date Active alprazolam 0.5 mg tablet RxNorm: 692597 1 Tablet(s) PO TID as needed anxiety 06/30/2018 12/26/2018 Inactive fluticasone 50 mcg/actuation nasal spray,suspension RxNorm: 1807558 USE 1 SPRAY NASALLY TWICE A DAY 05/06/2018 01/15/2019 Inactive clonidine HCl 0.1 mg tablet RxNorm: 467548 1 Tablet(s) PO BID 04/14/2018 08/15/2018 Inactive clonidine HCl 0.1 mg tablet RxNorm: 345605 1 Tablet(s) PO TID 04/12/2018 04/13/2018 Inactive Zithromax Z-Juan 250 mg tablet RxNorm: 175005 1 Tablet(s) PO UD 01/20/2018 08/21/2018 Inactive disregard first rx for 1 - patient needs 3 packs-please dispense generic azithromycin Zithromax Z-Juan 250 mg tablet RxNorm: 089888 1 Tablet(s) PO UD 01/20/2018 01/19/2018 Inactive Zithromax Z-Juan 250 mg tablet RxNorm: 291325 1 Tablet(s) PO UD 01/20/2018 01/19/2018 Inactive disregard first rx for 1 - patient needs 3 packs Zithromax Z-Juan 250 mg tablet RxNorm: 009188 1 Tablet(s) PO UD 01/20/2018 01/19/2018 Inactive atorvastatin 10 mg tablet RxNorm: 386371 1 Tablet(s) PO QPM 12/30/2017 12/24/2018 Inactive atorvastatin 10 mg tablet RxNorm: 803551 1 Tablet(s) PO QPM 12/30/2017 12/29/2017 Inactive clonidine HCl 0.1 mg tablet RxNorm: 740423 1 Tablet(s) PO BID 12/29/2017 04/11/2018 Inactive Lipitor 10 mg tablet RxNorm: 187555 1 Tablet(s) PO QPM 12/29/2017 12/29/2017 Inactive OKAY TO DISPENSE GENERIC metoprolol tartrate 50 mg tablet RxNorm: 210942 1/2 Tablet(s) PO BID 12/29/2017 12/01/2018 Inactive alprazolam 0.5 mg tablet RxNorm: 900888 1 Tablet(s) PO TID as needed anxiety 11/18/2017 05/16/2018 Inactive glimepiride 4 mg tablet RxNorm: 209433 1 TABLET(S) PO DAILY 11/15/2017 10/11/2018 Inactive alprazolam 0.5 mg tablet RxNorm: 336396 1 Tablet(s) PO TID as needed anxiety 09/20/2017 11/17/2017 Inactive Zithromax Z-Juan 250 mg tablet RxNorm: 617453 1 Tablet(s) PO UD 09/20/2017 12/28/2017 Inactive Zithromax Z-Juan 250 mg tablet RxNorm: 786731 1 Tablet(s) PO UD 09/14/2017 09/19/2017 Inactive clonidine HCl 0.1 mg tablet RxNorm: 768388 1/2 Tablet(s) PO BID 08/24/2017 12/28/2017 Inactive amlodipine 10 mg tablet RxNorm: 245812 1 Tablet(s) PO daily 08/24/2017 08/18/2018 Inactive erythromycin 5 mg/gram (0.5 %) eye ointment RxNorm: 967949 1 Gram(s) ophthalmic (eye) QID left eye cyst 08/24/2017 09/06/2017 Inactive losartan 100 mg tablet RxNorm: 340055 1 Tablet(s) PO daily for high blood pressure 08/16/2017 08/10/2018 Inactive metoprolol tartrate 50 mg tablet RxNorm: 916025 1/2 Tablet(s) PO BID 07/26/2017 12/28/2017 Inactive clonidine HCl 0.1 mg tablet RxNorm: 527500 1/2 Tablet(s) PO BID 07/26/2017 08/23/2017 Inactive metoprolol tartrate 50 mg tablet RxNorm: 063897 1 Tablet(s) PO BID 07/21/2017 07/25/2017 Inactive amlodipine 10 mg tablet RxNorm: 368382 1 TABLET(S) PO DAILY 06/29/2017 08/23/2017 Inactive Lipitor 10 mg tablet RxNorm: 704284 1 Tablet(s) PO QPM 05/27/2017 12/28/2017 Inactive OKAY TO DISPENSE GENERIC alprazolam 0.5 mg tablet RxNorm: 435120 1 Tablet(s) PO TID as needed anxiety 05/18/2017 08/15/2017 Inactive hydrochlorothiazide 12.5 mg tablet RxNorm: 928649 1 Tablet(s) PO daily 04/22/2017 05/21/2017 Inactive hydrochlorothiazide 12.5 mg tablet RxNorm: 636143 1 Tablet(s) PO daily 04/22/2017 04/21/2017 Inactive Cipro 500 mg tablet RxNorm: 491329 1 Tablet(s) PO BID 04/16/2017 04/22/2017 Inactive Zofran 4 mg tablet RxNorm: 576280 1 Tablet(s) PO BID as needed nausea and vomitting 04/15/2017 04/19/2017 Inactive Lipitor 10 mg tablet RxNorm: 274908 1 Tablet(s) PO QPM 03/30/2017 05/26/2017 Inactive OKAY TO DISPENSE GENERIC Kenalog 40 mg/mL suspension for injection RxNorm: 7649399 1 Milliliter(s) Inj 03/16/2017 03/16/2017 Inactive doxazosin 4 mg tablet RxNorm: 012829 1.5 Tablet(s) PO BID 03/16/2017 05/02/2017 Inactive prednisone 10 mg tablets in a dose pack RxNorm: 067012 Tablet(s) take dose pack as directed PO take with food 03/16/2017 05/23/2017 Inactive Kenalog 40 mg/mL suspension for injection RxNorm: 2926692 Milliliter(s) Inj 03/12/2017 03/12/2017 Inactive Zithromax Z-Juan 250 mg tablet RxNorm: 350778 1 Tablet(s) PO daily 03/11/2017 03/10/2017 Inactive zpack as directed Zithromax Z-Juan 250 mg tablet RxNorm: 693020 1 Tablet(s) PO daily 03/11/2017 03/15/2017 Inactive zpack as directed doxazosin 4 mg tablet RxNorm: 939722 1.5 Tablet(s) PO BID 02/12/2017 03/15/2017 Inactive fluticasone 50 mcg/actuation nasal spray,suspension RxNorm: 8211138 1 SPRAY NASAL BID 02/05/2017 05/05/2018 Inactive metoprolol tartrate 75 mg tablet RxNorm: 4440664 1 Tablet(s) PO BID 01/29/2017 07/19/2017 Inactive metoprolol tartrate 75 mg tablet RxNorm: 8232086 1 Tablet(s) PO BID 01/29/2017 01/28/2017 Inactive doxazosin 4 mg tablet RxNorm: 037869 1 Tablet(s) PO BID 01/20/2017 02/11/2017 Inactive pantoprazole 40 mg tablet,delayed release RxNorm: 929388 1 Tablet(s) PO daily 12/24/2016 01/19/2017 Inactive pantoprazole 40 mg tablet,delayed release RxNorm: 481730 1 Tablet(s) PO daily 12/24/2016 12/23/2016 Inactive alprazolam 0.5 mg tablet RxNorm: 173366 1 Tablet(s) PO TID as needed anxiety 12/03/2016 04/01/2017 Inactive fluticasone 50 mcg/actuation nasal spray,suspension RxNorm: 8351952 1 [place] NASAL BID 11/25/2016 12/24/2016 Inactive Dexilant 60 mg capsule, delayed release RxNorm: 536912 1 Capsule(s) PO daily 11/25/2016 11/24/2016 Inactive fluticasone 50 mcg/actuation nasal spray,suspension RxNorm: 4257731 1 [place] NASAL BID 11/25/2016 11/24/2016 Inactive fluticasone 50 mcg/actuation nasal spray,suspension RxNorm: 3086659 1 [place] NASAL BID 11/25/2016 11/24/2016 Inactive Dexilant 60 mg capsule, delayed release RxNorm: 270735 1 Capsule(s) PO daily 11/25/2016 12/23/2016 Inactive ProAir RespiClick 90 mcg/actuation breath activated RxNorm: 1911349 1 INH bid and QID as needed 11/19/2016 05/17/2017 Inactive Please send STAT Flonase Allergy Relief 50 mcg/actuation nasal spray,suspension RxNorm: 3594238 1 [place] NASAL BID 11/19/2016 11/24/2016 Inactive glimepiride 4 mg tablet RxNorm: 005722 1 Tablet(s) PO daily 11/19/2016 11/13/2017 Inactive metoprolol tartrate 50 mg tablet RxNorm: 235015 1 Tablet(s) PO BID 11/19/2016 01/28/2017 Inactive Flonase Allergy Relief 50 mcg/actuation nasal spray,suspension RxNorm: 9585487 1 [place] NASAL BID 11/17/2016 11/18/2016 Inactive metoprolol tartrate 50 mg tablet RxNorm: 765494 1 Tablet(s) PO BID 11/17/2016 11/18/2016 Inactive ProAir RespiClick 90 mcg/actuation breath activated RxNorm: 1408251 1 INH bid and QID as needed 11/17/2016 11/16/2016 Inactive glimepiride 4 mg tablet RxNorm: 235816 1 Tablet(s) PO daily 11/17/2016 11/18/2016 Inactive ProAir RespiClick 90 mcg/actuation breath activated RxNorm: 6908688 1 INH bid and QID as needed 11/17/2016 11/18/2016 Inactive Please send STAT Kenalog 40 mg/mL suspension for injection RxNorm: 3184627 1 Milliliter(s) Inj 11/05/2016 11/05/2016 Inactive azithromycin 250 mg tablet RxNorm: 354378 Tablet(s) PO 2 tabs on day #1, then daily x 4 days 11/05/2016 12/23/2016 Inactive doxazosin 4 mg tablet RxNorm: 471578 1 Tablet(s) PO QPM 10/02/2016 01/19/2017 Inactive doxazosin 4 mg tablet RxNorm: 138775 1 Tablet(s) PO QPM 09/29/2016 10/01/2016 Inactive doxazosin 4 mg tablet RxNorm: 311206 1 Tablet(s) PO QPM 09/21/2016 09/28/2016 Inactive Cipro 500 mg tablet RxNorm: 761444 1 Tablet(s) PO BID 09/18/2016 09/17/2016 Inactive Cipro 500 mg tablet RxNorm: 079891 1 Tablet(s) PO BID 09/18/2016 09/24/2016 Inactive losartan 100 mg tablet RxNorm: 695662 1 Tablet(s) PO daily for high blood pressure 09/16/2016 09/15/2016 Inactive alprazolam 0.5 mg tablet RxNorm: 525909 1 Tablet(s) PO TID as needed anxiety 09/16/2016 11/14/2016 Inactive losartan 100 mg tablet RxNorm: 278447 1 Tablet(s) PO daily for high blood pressure 09/16/2016 08/15/2017 Inactive amlodipine 10 mg tablet RxNorm: 564869 1 Tablet(s) PO daily 08/03/2016 06/28/2017 Inactive Zyrtec 10 mg tablet RxNorm: 3038205 1 Tablet(s) PO daily 08/03/2016 09/15/2016 Inactive losartan 25 mg tablet RxNorm: 624550 1 Tablet(s) PO daily 07/08/2016 09/15/2016 Inactive Lipitor 10 mg tablet RxNorm: 787241 1 Tablet(s) PO QPM 07/08/2016 07/17/2016 Inactive OKAY TO DISPENSE GENERIC Lipitor 10 mg tablet RxNorm: 667873 1 Tablet(s) PO QPM 07/06/2016 07/07/2016 Inactive OKAY TO DISPENSE GENERIC losartan 25 mg tablet RxNorm: 242935 1 Tablet(s) PO daily 07/06/2016 07/07/2016 Inactive meclizine 25 mg tablet RxNorm: 102147 1 Tablet(s) PO TID as needed No Start Date Active Pazeo 0.7 % eye drops RxNorm: 2367504 Drop(s) ophthalmic (eye) as needed dry eyes No Start Date Active Zithromax Z-Juan 250 mg tablet RxNorm: 634268 1 Tablet(s) PO UD No Start Date 09/13/2017 Inactive glimepiride 4 mg tablet RxNorm: 083703 1 Tablet(s) PO daily No Start Date 11/16/2016 Inactive metoprolol tartrate 100 mg tablet RxNorm: 777130 1 Tablet(s) PO BID No Start Date 07/21/2017 Inactive naproxen 500 mg tablet RxNorm: 947159 1 Tablet(s) PO BID No Start Date 03/23/2017 Inactive amlodipine 5 mg tablet RxNorm: 472822 1 Tablet(s) PO daily No Start Date 08/02/2016 Inactive Parafon Forte DSC 500 mg tablet RxNorm: 158341 1 Tablet(s) PO QID No Start Date 01/29/2019 Inactive metoprolol tartrate 50 mg tablet RxNorm: 552552 1 Tablet(s) PO BID No Start Date 11/16/2016 Inactive Medication Administered Medication Codes Instructions Start Date Status Kenalog 40 mg/mL suspension for injection RxNorm: 1533879 Milliliter 01/02/2019 No longer Active Kenalog 40 mg/mL suspension for injection RxNorm: 6455806 1Milliliter 10/12/2018 No longer Active Kenalog 40 mg/mL suspension for injection RxNorm: 8918832 1Milliliter 03/16/2017 No longer Active Kenalog 40 mg/mL suspension for injection RxNorm: 1865010 Milliliter 03/12/2017 No longer Active Kenalog 40 mg/mL suspension for injection RxNorm: 1089652 1Milliliter 11/05/2016 No longer Active Immunizations Vaccine [...] Lipid Ord30 C/HDL 3.1 Ratio 08/18/2018 Microalbumin Cfv804 MicroAlb 7.5 mg/dL 08/18/2018 Cbc With Differential [...] 29.6 pg 08/18/2018 Cbc With Differential Ord2 [place]% 10.6 % 08/18/2018 Cbc With Differential Ord2 [...] 1.69 K/ul 08/18/2018 Cbc With Differential Ord2 [place] ABS# 0.6 K/ul 08/18/2018 Cbc With Differential Ord2 Eos ABS# 0.3 K/ul 08/18/2018 Cbc With Differential Ord2 Baso ABS# 0.0 K/ul 08/18/2018 Comp Metabolic Qjo565 NA 137 mEq/L 08/18/2018 Comp Metabolic Wps463 K 3.8 mEq/L 08/18/2018 Comp Metabolic Qcd912 CL 103 mEq/L 08/18/2018 Comp Metabolic Xvr452 CO2 26.0 mEq/L 08/18/2018 Comp Metabolic Pyt116 ANION GAP 12 08/18/2018 Comp Metabolic Swe749 GLUCOSE 110 mg/dL 08/18/2018 Comp Metabolic Rkb191 Creat 1.2 mg/dL 08/18/2018 Comp Metabolic Tdi465 eGFR 47 ml/min/1.73m2 08/18/2018 Comp Metabolic Ovj656 BUN 25 mg/dL 08/18/2018 Comp Metabolic Kvf353 B/C Ratio 21.0 Ratio 08/18/2018 Comp Metabolic Mpe397 CALCIUM 9.4 mg/dL 08/18/2018 Comp Metabolic Yhp478 ALK PHOS 99 U/L 08/18/2018 Comp Metabolic Ety262 AST(SGOT) 31 U/L 08/18/2018 Comp Metabolic Api581 ALT(SGPT) 27 U/L 08/18/2018 Comp Metabolic Vdt686 BILI T 0.7 mg/dL 08/18/2018 Comp Metabolic Ztu885 ALBUMIN 4.2 g/dL 08/18/2018 Comp Metabolic Eds798 TPRO 6.7 g/dL 08/18/2018 Comp Metabolic Net473 GLOB 2.5 g/dL 08/18/2018 Comp Metabolic Tgy190 A/G Ratio 1.7 Ratio 08/18/2018 Comp Metabolic Wla759 Osmo 279 mOsmo 08/18/2018 %Hba1C Tig963 % HbA1c 55684- 6 6.1 % 08/18/2018 %Hba1C Jyp972 Gluc Ave 128 mg/dL 08/18/2018 Tsh Ord6 TSH (3rd IS) 3.93 uIU/mL 08/18/2018 Lipid Ord30 CHOL 146 mg/dL 04/15/2018 Lipid Ord30 HDL 62.0 mg/dl 04/15/2018 Lipid Ord30 TRIG 88 mg/dL 04/15/2018 Lipid Ord30 LDL 66 mg/dL 04/15/2018 Lipid Ord30 C/HDL 2.4 Ratio 04/15/2018 %Hba1C Ubw666 % HbA1c 41628- 6 6.3 % 04/15/2018 %Hba1C Eup154 Gluc Ave 134 mg/dL 04/15/2018 Cbc With [...] 30.2 pg 04/15/2018 Cbc With Differential Ord2 [place]% 6.8 % 04/15/2018 Cbc With Differential Ord2 [...] 2.10 K/ul 04/15/2018 Cbc With Differential Ord2 [place] ABS# 0.5 K/ul 04/15/2018 Cbc With Differential Ord2 Eos ABS# 0.2 K/ul 04/15/2018 Cbc With Differential Ord2 Baso ABS# 0.0 K/ul 04/15/2018 Comp Metabolic Roi466 NA 140 mEq/L 04/15/2018 Comp Metabolic Vtg970 K 4.3 mEq/L 04/15/2018 Comp Metabolic Wzd698 CL 106 mEq/L 04/15/2018 Comp Metabolic Wkn320 CO2 23.0 mEq/L 04/15/2018 Comp Metabolic Jcf436 ANION GAP 15 04/15/2018 Comp Metabolic Liz113 GLUCOSE 90 mg/dL 04/15/2018 Comp Metabolic Ppx284 Creat 1.2 mg/dL 04/15/2018 Comp Metabolic Lyb326 eGFR 45 ml/min/1.73m2 04/15/2018 Comp Metabolic Uix559 BUN 28 mg/dL 04/15/2018 Comp Metabolic Hua157 B/C Ratio 22.8 Ratio 04/15/2018 Comp Metabolic Apf226 CALCIUM 9.5 mg/dL 04/15/2018 Comp Metabolic Oec841 ALK PHOS 95 U/L 04/15/2018 Comp Metabolic Bnd985 AST(SGOT) 20 U/L 04/15/2018 Comp Metabolic Xsn788 ALT(SGPT) 13 U/L 04/15/2018 Comp Metabolic Nsz558 BILI T 0.5 mg/dL 04/15/2018 Comp Metabolic Uuy074 ALBUMIN 4.1 g/dL 04/15/2018 Comp Metabolic Tnm544 TPRO 6.6 g/dL 04/15/2018 Comp Metabolic Dls442 GLOB 2.5 g/dL 04/15/2018 Comp Metabolic Fzr477 A/G Ratio 1.6 Ratio 04/15/2018 Comp Metabolic Ugx166 Osmo 284 mOsmo 04/15/2018 Comp Metabolic Wfs523 NA 137 mEq/L 02/04/2018 Comp Metabolic Rwg138 K 4.0 mEq/L 02/04/2018 Comp Metabolic Dwm541 CL 104 mEq/L 02/04/2018 Comp Metabolic Myp644 CO2 27.0 mEq/L 02/04/2018 Comp Metabolic Dtb165 ANION GAP 10 02/04/2018 Comp Metabolic Uzw665 GLUCOSE 212 mg/dL 02/04/2018 Comp Metabolic Ndl847 Creat 1.2 mg/dL 02/04/2018 Comp Metabolic Rvr659 eGFR 47 ml/min/1.73m2 02/04/2018 Comp Metabolic Oun296 BUN 20 mg/dL 02/04/2018 Comp Metabolic Ied356 B/C Ratio 16.8 Ratio 02/04/2018 Comp Metabolic Hgw340 CALCIUM 8.9 mg/dL 02/04/2018 Comp Metabolic Lwu397 ALK PHOS 107 U/L 02/04/2018 Comp Metabolic Qft105 AST(SGOT) 17 U/L 02/04/2018 Comp Metabolic Age515 ALT(SGPT) 11 U/L 02/04/2018 Comp Metabolic Rby641 BILI T 0.4 mg/dL 02/04/2018 Comp Metabolic Ahf416 ALBUMIN 3.8 g/dL 02/04/2018 Comp Metabolic Vuk826 TPRO 6.2 g/dL 02/04/2018 Comp Metabolic Eae882 GLOB 2.4 g/dL 02/04/2018 Comp Metabolic Gno781 A/G Ratio 1.6 Ratio 02/04/2018 Comp Metabolic Qzc010 Osmo 283 mOsmo 02/04/2018 %Hba1C Qoa575 % HbA1c 60964- 6 6.3 % 12/30/2017 %Hba1C Irb010 Gluc Ave 134 mg/dL 12/30/2017 Comp Metabolic Eib817 NA 142 mEq/L 12/30/2017 Comp Metabolic Qtj691 K 4.4 mEq/L 12/30/2017 Comp Metabolic Lru984 CL 103 mEq/L 12/30/2017 Comp Metabolic Aga953 CO2 31.0 mEq/L 12/30/2017 Comp Metabolic Sfm013 ANION GAP 12 12/30/2017 Comp Metabolic Xer833 GLUCOSE 119 mg/dL 12/30/2017 Comp Metabolic Hho784 Creat 1.4 mg/dL 12/30/2017 Comp Metabolic Zxq052 eGFR 41 ml/min/1.73m2 12/30/2017 Comp Metabolic Hfk912 BUN 27 mg/dL 12/30/2017 Comp Metabolic Vty555 B/C Ratio 20.0 Ratio 12/30/2017 Comp Metabolic Tnc597 CALCIUM 9.9 mg/dL 12/30/2017 Comp Metabolic Ibf704 ALK PHOS 106 U/L 12/30/2017 Comp Metabolic Hcf927 AST(SGOT) 20 U/L 12/30/2017 Comp Metabolic Nnk735 ALT(SGPT) 13 U/L 12/30/2017 Comp Metabolic Axw065 BILI T 0.7 mg/dL 12/30/2017 Comp Metabolic Rxl048 ALBUMIN 4.2 g/dL 12/30/2017 Comp Metabolic Mfw827 TPRO 6.7 g/dL 12/30/2017 Comp Metabolic Ncc119 GLOB 2.6 g/dL 12/30/2017 Comp Metabolic Scb726 A/G Ratio 1.6 Ratio 12/30/2017 Comp Metabolic Hog059 Osmo 289 mOsmo 12/30/2017 Lipid Ord30 CHOL 167 mg/dL 12/30/2017 Lipid Ord30 HDL 63.0 mg/dl 12/30/2017 Lipid Ord30 TRIG 89 mg/dL 12/30/2017 Lipid Ord30 LDL 86 mg/dL 12/30/2017 Lipid Ord30 C/HDL 2.7 Ratio 12/30/2017 Urine Culture Ucult Preliminary NO Growth Day 1 04/17/2017 Urine Culture Ucult Complete NO Growth Day 2 04/17/2017 Comp Metabolic Ivo273 NA 143 mEq/L 04/15/2017 Comp Metabolic Tds660 K 4.6 mEq/L 04/15/2017 Comp Metabolic Rzp295 CL 110 mEq/L 04/15/2017 Comp Metabolic Xlc867 CO2 30.0 mEq/L 04/15/2017 Comp Metabolic Zhr234 ANION GAP 8 04/15/2017 Comp Metabolic Lob834 GLUCOSE 159 mg/dL 04/15/2017 Comp Metabolic Kis660 Creat 1.1 mg/dL 04/15/2017 Comp Metabolic Jpx972 eGFR 54 ml/min/1.73m2 04/15/2017 Comp Metabolic Lsv603 BUN 27 mg/dL 04/15/2017 Comp Metabolic Ngg175 B/C Ratio 25.7 Ratio 04/15/2017 Comp Metabolic Ypy129 CALCIUM 9.4 mg/dL 04/15/2017 Comp Metabolic Dkk351 ALK PHOS 93 U/L 04/15/2017 Comp Metabolic Sup968 AST(SGOT) 19 U/L 04/15/2017 Comp Metabolic Pqj627 ALT(SGPT) 18 U/L 04/15/2017 Comp Metabolic Udg590 BILI T 0.6 mg/dL 04/15/2017 Comp Metabolic Nir562 ALBUMIN 3.9 g/dL 04/15/2017 Comp Metabolic Leo285 TPRO 6.5 g/dL 04/15/2017 Comp Metabolic Vsc582 GLOB 2.6 g/dL 04/15/2017 Comp Metabolic Jxq907 A/G Ratio 1.5 Ratio 04/15/2017 Comp Metabolic Diq312 Osmo 293 mOsmo 04/15/2017 Tsh Ord6 hTSH II 2.05 uIU/mL 04/15/2017 %Hba1C Uha150 % HbA1c 02482- 6 6.3 % 04/15/2017 %Hba1C Cbw378 Gluc Ave 134 mg/dL 04/15/2017 Cbc With [...] 29.0 pg 04/15/2017 Cbc With Differential Ord2 [place]% 6.9 % 04/15/2017 Cbc With Differential Ord2 [...] 1.58 K/ul 04/15/2017 Cbc With Differential Ord2 [place] ABS# 0.5 K/ul 04/15/2017 Cbc With Differential [...] Ord28 U-Com Culture to follow 04/15/2017 %Hba1C Ilu414 % HbA1c 82900- 6 5.8 % 01/07/2017 %Hba1C Mmj643 Gluc Ave 120 mg/dL 01/07/2017 Urine Culture Ucult Preliminary NO Growth Day 1 09/21/2016 Urine Culture Ucult Complete NO Growth Day 2 09/21/2016 %Hba1C Gay780 % HbA1c 02004- 6 6.0 % 09/17/2016 %Hba1C Bbp405 Gluc Ave 126 mg/dL 09/17/2016 Comp Metabolic Gde321 NA 140 mEq/L 09/17/2016 Comp Metabolic Jbk487 K 4.1 mEq/L 09/17/2016 Comp Metabolic Bpc922 CL 105 mEq/L 09/17/2016 Comp Metabolic Atg866 CO2 29.0 mEq/L 09/17/2016 Comp Metabolic Lww747 ANION GAP 10 09/17/2016 Comp Metabolic Ari830 GLUCOSE 89 mg/dL 09/17/2016 Comp Metabolic Xzu454 Creat 0.9 mg/dL 09/17/2016 Comp Metabolic Rbc362 eGFR 65 ml/min/1.73m2 09/17/2016 Comp Metabolic Ozh532 BUN 20 mg/dL 09/17/2016 Comp Metabolic Zil825 B/C Ratio 22.2 Ratio 09/17/2016 Comp Metabolic Vsu859 CALCIUM 9.3 mg/dL 09/17/2016 Comp Metabolic Hln409 ALK PHOS 107 U/L 09/17/2016 Comp Metabolic Ffe041 AST(SGOT) 22 U/L 09/17/2016 Comp Metabolic Xez296 ALT(SGPT) 15 U/L 09/17/2016 Comp Metabolic Kgp600 BILI T 0.7 mg/dL 09/17/2016 Comp Metabolic Qnc267 ALBUMIN 4.0 g/dL 09/17/2016 Comp Metabolic Xvv129 TPRO 6.8 g/dL 09/17/2016 Comp Metabolic Bbc101 GLOB 2.8 g/dL 09/17/2016 Comp Metabolic Csg658 A/G Ratio 1.4 Ratio 09/17/2016 Comp Metabolic Niw855 Osmo 281 mOsmo 09/17/2016 Microalbumin Fgl277 MicroAlb 44.3 mg/dL 09/17/2016 Tsh Ord6 hTSH [...] 29.0 pg 09/17/2016 Cbc With Differential Ord2 [place]% 8.1 % 09/17/2016 Cbc With Differential Ord2 [...] 1.78 K/ul 09/17/2016 Cbc With Differential Ord2 [place] ABS# 0.6 K/ul 09/17/2016 Cbc With Differential [...] lips 01/30/2019 None Full Exam - General 1995 Ears/Nose/Throat lips/teeth/gingiva Overall: normal dentition 01/30/2019 None Full Exam - General 1994 Ears/Nose/Throat oral cavity/pharynx/larynx Overall: oral mucosa clear 01/30/2019 None Full Exam - General 1995 Ears/Nose/Throat oral cavity/pharynx/larynx Overall: oropharyngeal mucosa clear 01/30/2019 None Full Exam - General 1995 Ears/Nose/Throat oral cavity/pharynx/larynx Overall: hypopharynx benign 01/30/2019 [...] affect 01/16/2019 None Full Exam - General 1995 Psychiatric appearance Overall: well-groomed, good eye contact [...] lips 09/06/2018 None Full Exam - General 1994 Ears/Nose/Throat lips/teeth/gingiva Overall: normal dentition 09/06/2018 None [...] accomodation 11/05/2016 None Full Exam - General 1995 Ears/Nose/Throat otoscopic exam Overall: external auditory canals [...] 1995 Ears/Nose/Throat oral cavity/pharynx/larynx Overall: hypopharynx benign 11/05/2016 [...] Procedure Codes Date THER/PROPH/DIAG INJ SC/IM CPT-4: 61752 01/02/2019 TRIAMCINOLONE ACET INJ NOS CPT-4: J3301 01/02/2019 TRIAMCINOLONE ACET INJ NOS CPT-4: J3301 10/12/2018 THER/PROPH/DIAG INJ SC/IM CPT-4: 47211 10/12/2018 PPPS, SUBSEQ VISIT CPT- 4: G0439 09/06/2018 URINALYSIS NONAUTO W/O SCOPE CPT-4: 95185 12/29/2017 PPPS, SUBSEQ VISIT CPT- 4: G0439 03/30/2017 THER/PROPH/DIAG INJ SC/IM CPT-4: 50458 03/16/2017 TRIAMCINOLONE ACET INJ NOS CPT-4: J3301 03/16/2017 THER/PROPH/DIAG INJ SC/IM CPT-4: 23997 03/12/2017 TRIAMCINOLONE ACET INJ NOS CPT-4: J3301 03/12/2017 THER/PROPH/DIAG INJ SC/IM CPT-4: 86689 11/05/2016 TRIAMCINOLONE ACET INJ NOS CPT-4: J3301 11/05/2016 URINALYSIS NONAUTO W/O SCOPE CPT-4: 33451 09/18/2016 Vital Signs Date Vital 01/30/2019 Blood Pressure 1: 160/70 Code: 8480-6 Heart Rate 1: 53 bpm Height: 5'7" SpO2: 96% 01/16/2019 Blood Pressure 1: 156/70 Code: 8480-6 BMI: 30.1 Code: 59940-2 Heart Rate 1: 50 bpm Height: 5'7" SpO2: 98% Weight: 192 lbs 10/12/2018 Blood Pressure 1: 142/76 Code: 8480-6 BMI: 30.1 Code: 99774-0 Heart Rate 1: 83 bpm Height: 5'7" SpO2: 98% Weight: 192 lbs 09/06/2018 Blood Pressure 1: 142/66 Code: 8480-6 BMI: 30.9 Code: 65631-7 Heart Rate 1: 64 bpm Height: 5'7" SpO2: 98% Waist Measure (cm): 99 cm Weight: 197 lbs 08/16/2018 Blood Pressure 1: 140/70 Code: 8480-6 BMI: 34.4 Code: 28278-9 Heart Rate 1: 63 bpm Height: 5'7" SpO2: 95% Weight: 219 lbs 14 oz 04/12/2018 Blood Pressure 1: 160/70 Code: 8480-6 BMI: 33.0 Code: 63630-0 Heart Rate 1: 82 bpm Height: 5'7" SpO2: 95% Weight: 211 lbs 01/20/2018 Blood Pressure 1: 152/66 Code: 8480-6 BMI: 31.8 Code: 97759-5 Heart Rate 1: 52 bpm Height: 5'7" SpO2: 98% Temperature: 36.3 (C) / 97.3 (F) Weight: 203 lbs 12/29/2017 Blood Pressure 1: 168/72 Code: 8480-6 BMI: 32.1 Code: 32904-6 Heart Rate 1: 63 bpm Height: 5'7" SpO2: 98% Weight: 205 lbs 08/24/2017 Blood Pressure 1: 186/70 Code: 8480-6 Blood Pressure 1: 150/70 Code: 8480-6 BMI: 31.8 Code: 05093-8 Heart Rate 1: 53 bpm Height: 5'7" SpO2: 98% Weight: 203 lbs 07/26/2017 Blood Pressure 1: 206/78 Code: 8480-6 Blood Pressure 2: 210/84 Code: 8480-6 BMI: 32.0 Code: 89510-2 Heart Rate 1: 49 bpm Height: 5'7" SpO2: 97% Weight: 204 lbs 07/20/2017 Blood Pressure 1: 148/82 Code: 8480-6 Heart Rate 1: 90 bpm SpO2: 98% 05/27/2017 Blood Pressure 1: 142/72 Code: 8480-6 BMI: 30.5 Code: 63200-9 Heart Rate 1: 97 bpm Height: 5'7" [...] 1: 148/70 Code: 8480-6 BMI: 30.4 Code: 89738-9 Heart Rate 1: 54 bpm Height: 5'7" SpO2: 97% Weight: 194 lbs 03/30/2017 BMI: 33.2 Code: 57491-3 Height: 5'7" Weight: 212 lbs 03/16/2017 Blood Pressure 1: 140/80 Code: 8480-6 BMI: 34.0 Code: 66879-5 Heart Rate 1: 70 bpm Height: 5'7" SpO2: 95% Weight: 217 lbs 03/12/2017 Blood Pressure 1: 142/80 Code: 8480-6 BMI: 34.0 Code: 02103-7 Heart Rate 1: 76 bpm Height: 5'7" SpO2: 92% Weight: 217 lbs 02/17/2017 Blood Pressure 1: 162/64 Code: 8480-6 BMI: 32.9 Code: 67010-8 Heart Rate 1: 59 bpm Height: 5'7" SpO2: 97% Weight: 210 lbs 01/20/2017 Blood Pressure 1: 162/74 Code: 8480-6 BMI: 32.9 Code: 15980-1 Heart Rate 1: 56 bpm Height: 5'7" SpO2: 98% Weight: 210 lbs 11/17/2016 Blood Pressure 1: 156/60 Code: 8480-6 BMI: 34.8 Code: 33340-3 Heart Rate 1: 63 bpm Height: 5'7" SpO2: 96% Weight: 222 lbs 11/05/2016 Blood Pressure 1: 160/68 Code: 8480-6 BMI: 34.5 Code: 46343-3 Heart Rate 1: 66 bpm Height: 5'7" SpO2: 97% Temperature: 36.9 (C) / 98.5 (F) Weight: 220 lbs 09/21/2016 Blood Pressure 1: 180/72 Code: 8480-6 Blood Pressure 1: 166/72 Code: 8480-6 BMI: 32.1 Code: 67036-9 Heart Rate 1: 57 bpm Height: 5'7" SpO2: 98% Weight: 205 lbs 09/16/2016 Blood Pressure 1: 168/70 Code: 8480-6 Heart Rate 1: 49 bpm SpO2: 95% 08/03/2016 Blood Pressure 1: 162/70 Code: 8480-6 BMI: 32.0 Code: 02055-1 Heart Rate 1: 43 bpm Height: 5'7" SpO2: 98% Weight: 204 lbs 07/06/2016 Blood Pressure 1: 170/86 Code: 8480-6 BMI: 32.0 Code: 47966-1 Heart Rate 1: 48 bpm Height: 5'7" [...] data Encounters Encounter Performer Location Codes Date ([id number]) 99826 EST. PATIENT, LEVEL III Diagnosis: Essential (primary) hypertension[ICD10: I10] Diagnosis: Lumbago with sciatica, right side[ICD10: M54.41] Yuridia Camejo MD, [facility] CPT-4: 97100 01/30/2019 [id number]) 54187 EST. PATIENT, LEVEL III Diagnosis: Essential (primary) hypertension[ICD10: I10] Diagnosis: Other allergic rhinitis[ICD10: J30.89] [facility] CPT-4: 62047 01/16/2019 95723 EST. PATIENT, LEVEL IV Diagnosis: Other acute sinusitis[ICD10: J01.80] Diagnosis: Other allergic rhinitis[ICD10: J30.89] Krysta Camejo MD, [facility] CPT- 4: 51313 10/12/2018 [id number]) 53996 EST. PATIENT, LEVEL IV Diagnosis: Essential (primary) hypertension[ICD10: I10] Diagnosis: Type 2 diabetes mellitus without complications[ICD10: E11.9] Diagnosis: Mixed hyperlipidemia[ICD10: E78.2] Fifi Camejo MD, [facility] CPT- 4: 25548 08/16/2018 ([id number]) 84521 EST. PATIENT, LEVEL IV Diagnosis: Type 2 diabetes mellitus without complications[ICD10: E11.9] Diagnosis: Mixed hyperlipidemia[ICD10: E78.2] Diagnosis: Essential (primary) hypertension[ICD10: I10] Diagnosis: Dysuria[ICD10: R30.0] Diagnosis: Pain in left foot[ICD10: M79.672] Fifi Camejo MD, [facility] CPT- 4: 81516 04/12/2018 ([id number]) 65596 EST. PATIENT, LEVEL III Diagnosis: Otalgia, bilateral[ICD10: H92.03] Diagnosis: Other allergic rhinitis[ICD10: J30.89] Yuridia Camejo MD, [facility] CPT-4: 61461 01/20/2018 ([id number]) 51952 EST. PATIENT, LEVEL IV Diagnosis: Type 2 diabetes mellitus without complications[ICD10: E11.9] Diagnosis: Mixed hyperlipidemia[ICD10: E78.2] Diagnosis: Essential (primary) hypertension[ICD10: I10] Diagnosis: Dysuria[ICD10: R30.0] Fifi Camejo MD, [facility] CPT-4: 30097 12/29/2017 ([id number]) 06471 EST. PATIENT, LEVEL IV Diagnosis: Essential (primary) hypertension[ICD10: I10] Diagnosis: Cysts of left upper eyelid[ICD10: H02.824] Diagnosis: Pain in left foot[ICD10: M79.672] Fifi Camejo MD, [facility] CPT- 4: 29851 08/24/2017 ([id number]) 28560 EST. PATIENT, LEVEL III Diagnosis: Essential (primary) hypertension[ICD10: I10] Fifi Camejo MD [facility] CPT-4: 49225 07/26/2017 ([id number]) Miscellaneous no charge Diagnosis: Essential (primary) hypertension[ICD10: I10] Fifi Camejo MD [facility] CPT-4: 44386 07/20/2017 71591 EST. PATIENT, LEVEL III Diagnosis: Otalgia, bilateral[ICD10: H92.03] Diagnosis: Dizziness and giddiness[ICD10: R42] Diagnosis: Mixed hyperlipidemia[ICD10: E78.2] Krysta Camejo MD, [facility] CPT-4: 45837 05/27/2017 ([id number]) Miscellaneous no charge Diagnosis: Essential (primary) hypertension[ICD10: I10] Krysta Camejo MD [facility] CPT-4: 56490 05/07/2017 ([id number]) 63137 EST. PATIENT, LEVEL IV Diagnosis: Otalgia, bilateral[ICD10: H92.03] Diagnosis: Dizziness and giddiness[ICD10: R42] Diagnosis: Orthostatic hypotension[ICD10: I95.1] Fifi Camejo MD, [facility] CPT-4: 58211 05/03/2017 86702 EST. PATIENT, LEVEL IV Diagnosis: Essential (primary) hypertension[ICD10: I10] Diagnosis: Type 2 diabetes mellitus without complications[ICD10: E11.9] Diagnosis: Gastro-esophageal reflux disease without esophagitis[ICD10: K21.9] Diagnosis: Dizziness and giddiness[ICD10: R42] Diagnosis: Dysuria[ICD10: R30.0] Diagnosis: Other malaise[ICD10: R53.81] Krysta Camejo MD, [facility] CPT-4: 89037 04/15/2017 ([id number]) 23126 EST. PATIENT, LEVEL IV Diagnosis: Type 2 diabetes mellitus without complications[ICD10: E11.9] Diagnosis: Otalgia, bilateral[ICD10: H92.03] Diagnosis: Essential (primary) hypertension[ICD10: I10] Diagnosis: Other allergic rhinitis[ICD10: J30.89] Fifi Camejo MD, [facility] CPT-4: 31121 03/16/2017 23661 EST. PATIENT, LEVEL IV Diagnosis: Other acute sinusitis[ICD10: J01.80] Diagnosis: Acute suppurative otitis media without spontaneous rupture of ear drum, bilateral[ICD10: H66.003] Diagnosis: Other allergic rhinitis[ICD10: J30.89] Krysta Camejo MD, [facility] CPT- 4: 25966 03/12/2017 ([id number]) 92659 EST. PATIENT, LEVEL IV Diagnosis: Essential (primary) hypertension[ICD10: I10] Diagnosis: Type 2 diabetes mellitus without complications[ICD10: E11.9] Fifi Camejo MD [facility] CPT-4: 18423 02/17/2017 ([id number]) 26712 EST. PATIENT, LEVEL IV Diagnosis: Essential (primary) hypertension[ICD10: I10] Diagnosis: Type 2 diabetes mellitus without complications[ICD10: E11.9] Fifi Camejo MD [facility] CPT-4: 69655 01/20/2017 ([id number]) 66967 EST. PATIENT, LEVEL IV Diagnosis: Essential (primary) hypertension[ICD10: I10] Diagnosis: Type 2 diabetes mellitus without complications[ICD10: E11.9] Diagnosis: Gastro-esophageal reflux disease without esophagitis[ICD10: K21.9] Fifi Camejo MD [facility] CPT-4: 16778 11/17/2016 ([id number]) 69373 EST. PATIENT, LEVEL III Diagnosis: Acute bronchitis due to other specified organisms[ICD10: J20.8] Diagnosis: Cough[ICD10: R05] Fifi Camejo MD [facility] CPT-4: 70287 11/05/2016 ([id number]) 84300 EST. PATIENT, LEVEL IV Diagnosis: Essential (primary) hypertension[ICD10: I10] Diagnosis: Type 2 diabetes mellitus without complications[ICD10: E11.9] Fifi Camejo MD [facility] CPT-4: 18914 09/21/2016 ([id number]) Miscellaneous no charge Diagnosis: Essential (primary) hypertension[ICD10: I10] Fifi Camejo MD [facility] CPT-4: 64703 09/16/2016 ([id number]) 49115 EST. PATIENT, LEVEL III Diagnosis: Type 2 diabetes mellitus without complications[ICD10: E11.9] Diagnosis: Essential (primary) hypertension[ICD10: I10] Fifi Camejo MD [facility] CPT-4: 74530 08/03/2016 ([id number]) OFFICE VISIT, NEW - LEVEL 4 Diagnosis: Essential (primary) hypertension[ICD10: I10] Diagnosis: Type 2 diabetes mellitus without complications[ICD10: E11.9] Diagnosis: Carpal tunnel syndrome, left upper limb[ICD10: G56.02] Diagnosis: Right upper quadrant pain[ICD10: R10.11] Diagnosis: Mixed hyperlipidemia[ICD10: E78.2] [facility] CPT- 4: 57388 07/06/2016 Plan of Care Planned Activity Notes [...] [facility]Ptel[facility] [phone] [facility] [address] (30 min) Complex 10/12/2018 Patient Education: Patient [...] care surrogate. 09/06/2018 Appointment: Yuridia Walsh WPtel: [phone] [phone] [facility] - Annual Wellness Visit 09/06/2018 Patient Education: Patient Medication Summary Completed 09/06/2018 Appointment: Yuridia Walsh WPtel: [phone] [facility] [phone] [facility] - Annual Wellness Visit 08/29/2018 [...] response to me dications. 08/16/2018 Appointment: Fifi Caemjo WPtel: [phone] [facility] (15 min) Moderate 08/16/2018 Patient Education: Patient [...] foot. 04/12/2018 [phone] ([facility] Moderate 04/12/2018 Patient Education: Patient Medication Summary Completed 04/12/2018 Care Plan: Referral Order SNOMED-CT : [id number] Pending 04/12/2018 Patient Education: Patient Medication Summary [...] spray. 01/20/2018 Appointment: Yuridia Walsh WPtel: [phone] [facility] [address] (15 min) Moderate 01/20/2018 Patient Education: Patient [...] less controlled. 12/29/2017 Appointment: [phone] [facility] (15 min) Moderate 12/29/2017 Patient Education: [...] - recommended referral to Dr. Anders in [place] 08/24/2017 Appointment: [phone] [facility] (15 min) Moderate 08/24/2017 Patient Education: Patient Medication Summary Completed 08/24/2017 Care Plan: Referral Order SNOMED-CT : [id number] Pending 08/24/2017 Visit Plan: Hypertension - uncontrolled [...] above. 07/26/2017 Appointment: [phone] [facility] [place] (15 min) Moderate 07/26/2017 Patient Education: Patient [...] to medications. 05/27/2017 Appointment: Krysta Dale WPtel: [phone] [facility] (15 min) Moderate 05/27/2017 Patient Education: Patient Medication Summary Completed 05/27/2017 Appointment: Nurse Visit 05/07/2017 Patient Education: Patient Medication Summary Completed 05/07/2017 Visit Plan: Persistent vergito with bilateral air-fluid levels and ear pain. Pt was seen by Dr. Calvo- she did not like his response to her complaints. I have recommended a referral to ENT in [place] or [place]. I suspect she may need myringotomy tubes. Pt to continue with flonase. Orthostatic hypotension - dc doxazosin. Monitor blood pressures at home. stop the doxazosin meclizine change to 1/2 pill three times a day come back on Wednesday for blood pressure check 05/03/2017 Appointment: Fifi Camejo WPtel: [phone] [facility] (15 min) Moderate 05/03/2017 Patient Education: Patient Medication Summary Completed 05/03/2017 Appointment: Fifi Camejo WPtel: [phone] [facility] (15 min) Moderate 04/21/2017 Visit Plan: Hypertension, [...] glucose control. 04/15/2017 Appointment: Krysta Dale WPtel: [address] [place], [place] [address] (30 min) Complex 04/15/2017 Patient Education: Patient [...] surrogate. 03/30/2017 Appointment: Krysta Dale WPtel: [phone] [facility] [place] [address] - Annual Wellness Visit 03/30/2017 Patient Education: [...] home. 03/16/2017 Appointment: [phone] [facility] ([facility] min) Complex 03/16/2017 Patient Education: Patient Medication Summary Completed 03/16/2017 Patient Education: Obesity Completed 03/16/2017 Care Plan: Referral Order SNOMED-CT : [id number] Pending 03/16/2017 Visit Plan: Allergies - chronic [...] worsen. 03/12/2017 Appointment: Krysta Dale WPtel: [phone] [facility] [address] (15 min) Moderate 03/12/2017 Patient Education: Patient [...] controlled. 02/17/2017 Appointment: [facility]el[facility] [phone] [facility] (30 min) Complex 02/17/2017 Patient [...] controlled. 01/20/2017 Appointment: Fifi Camejo WPtel: [phone] [facility] (30 min) Complex 01/20/2017 Patient Education: Patient [...] dexilant 11/17/2016 Appointment: [phone] [facility] ([facility] min) Complex 11/17/2016 Patient [...] range. 09/21/2016 Appointment: Fifi Camejo WPtel: [phone] [facility] (15 min) Moderate 09/21/2016 Patient Education: Patient [...] time. 08/03/2016 Appointment: [facility]el[phone] [facility] (15 min) Moderate 08/03/2016 Patient Education: [...] not improving. 07/06/2016 Appointment: Fifi Camejo WPtel: [address] [place], [place] [address] New Patient 07/06/2016 Patient Education: Patient Medication [...] monitor your heart rate Consider referral for welcome hostess for possible stress test if needed. Call [...] monitor your heart rate Consider referral for welcome hostess for possible stress test if needed. Call [...] have recommended a referral to ENT in [place] or [place]. I suspect she may need myringotomy tubes. [...] - recommended referral to Dr. Anders in [place]
--- OUTSIDE RECORDS SUMMARY | 2019-03-08 16:16 | XMS REPORT | CCD ---
Author Author Fifi Camejo MD, [facility] Address [address] [place] [address] Phone Care Team Providers Care Senior Lead Java Developer Name Role Phone PP Unavailable CCM Unavailable Summary Purpose Interface Exchange Insurance Providers Payer name Policy type / Coverage type Covered alliance party ID Effective Begin Date Effective End Date WPS Medicare Part B Medicare Part B [id number] 2018 Unknown FOR LIFE WPS Medicare Part B [id number] Unknown Family history Father Diagnosis Age At Onset Cancer Unknown Brother Diagnosis Age At Onset Diabetes mellitus Type 2 Unknown Heart Attack Unknown Social History Social History Element Codes Description Effective Dates Marital status Unknown Wu 11/05/2016 Number of children Unknown 1 07/06/2016 Employment Unknown Retired 07/06/[address]: 489188596 Never smoker 07/06/[address]: 133797244 Never drinks alcohol 07/06/2016 Allergies, Adverse Reactions, Alerts Substance Reaction Codes Entered Date Inactivated Date Status Protonix hives RxNorm: 663476 09/06/2018 No Inactive Date Active IV DYE, [...] Start Date Stop Date Status Fill Instructions atorvastatin 10 mg tablet RxNorm: 719206 1 Tablet(s) PO QPM 01/16/2019 01/10/2020 Active hydralazine 10 mg tablet RxNorm: 569831 1 Tablet(s) PO TID PRN 01/16/2019 07/14/2019 Active prn sbp over 150 alprazolam 0.5 mg tablet RxNorm: 532213 1 Tablet(s) PO TID as needed anxiety 01/16/2019 07/14/2019 Active clonidine HCl 0.1 mg tablet RxNorm: 417115 1/2 Tablet(s) PO QHS 01/16/2019 01/16/2019 Inactive fluticasone propionate 50 mcg/actuation nasal spray,suspension RxNorm: 9111737 2 [place] daily USE 1 SPRAY NASALLY TWICE A DAY 01/16/2019 01/10/2020 Active hydralazine 10 mg tablet RxNorm: 259124 1 Tablet(s) PO TID PRN 01/16/2019 01/15/2019 Inactive prn sbp over 150 cefdinir 300 mg capsule RxNorm: 461126 1 Capsule(s) PO BID 01/09/2019 01/15/2019 Inactive cefdinir 300 mg capsule RxNorm: 293244 1 Capsule(s) PO BID 01/09/2019 01/08/2019 Inactive Zithromax Z-Juan 250 mg tablet RxNorm: 879067 1 Tablet(s) PO UD 01/03/2019 01/07/2019 Inactive zpack as directed Kenalog 40 mg/mL suspension for injection RxNorm: 2712343 Milliliter(s) Inj 01/02/2019 01/02/2019 Inactive Zithromax Z-Juan 250 mg tablet RxNorm: 071841 1 Tablet(s) PO UD 12/30/2018 01/02/2019 Inactive zpack as directed metoprolol tartrate 50 mg tablet RxNorm: 620950 1/2 TABLET(S) PO BID 12/02/2018 No Stop Date Active amlodipine 10 mg tablet RxNorm: 570367 TAKE 1 TABLET DAILY 10/24/2018 No Stop Date Active cefdinir 300 mg capsule RxNorm: 907984 1 Capsule(s) PO BID 10/19/2018 10/22/2018 Inactive Zithromax Z-Juan 250 mg tablet RxNorm: 376994 1 Tablet(s) PO UD 10/19/2018 10/23/2018 Inactive zpack as directed glimepiride 4 mg tablet RxNorm: 323943 Tablet(s) 1 TABLET(S) PO DAILY 10/12/2018 No Stop Date Active cefdinir 300 mg capsule RxNorm: 725977 1 Capsule(s) PO BID 10/12/2018 10/18/2018 Inactive Zithromax Z-Juan 250 mg tablet RxNorm: 421901 1 Tablet(s) PO UD 10/12/2018 10/16/2018 Inactive zpack as directed Tessalon Perles 100 mg capsule RxNorm: 718629 2 Capsule(s) PO TID as needed cough 10/12/2018 10/16/2018 Inactive Kenalog 40 mg/mL suspension for injection RxNorm: 7773762 1 Mill[place](s) Inj 10/12/2018 10/12/2018 Inactive Zithromax Z-Juan 250 mg tablet RxNorm: 330969 1 Tablet(s) PO UD 08/22/2018 08/26/2018 Inactive zpack as directed clonidine HCl 0.1 mg tablet RxNorm: 203711 1 Tablet(s) PO QAM 08/16/2018 01/15/2019 Inactive losartan 100 mg tablet RxNorm: 202944 1 TABLET(S) PO DAILY FOR HIGH BLOOD PRESSURE 08/12/2018 No Stop Date Active alprazolam 0.5 mg tablet RxNorm: 346451 1 Tablet(s) PO TID as needed anxiety 06/30/2018 12/26/2018 Inactive fluticasone 50 mcg/actuation nasal spray,suspension RxNorm: 0464017 USE 1 SPRAY NASALLY TWICE A DAY 05/06/2018 01/15/2019 Inactive clonidine HCl 0.1 mg tablet RxNorm: 047211 1 Tablet(s) PO BID 04/14/2018 08/15/2018 Inactive clonidine HCl 0.1 mg tablet RxNorm: 315916 1 Tablet(s) PO TID 04/12/2018 04/13/2018 Inactive Zithromax Z-Juan 250 mg tablet RxNorm: 672181 1 Tablet(s) PO UD 01/20/2018 08/21/2018 Inactive disregard first rx for 1 - patient needs 3 packs-please dispense generic azithromycin Zithromax Z-Juan 250 mg tablet RxNorm: 656242 1 Tablet(s) PO UD 01/20/2018 01/19/2018 Inactive Zithromax Z-Juan 250 mg tablet RxNorm: 213195 1 Tablet(s) PO UD 01/20/2018 01/19/2018 Inactive disregard first rx for 1 - patient needs 3 packs Zithromax Z-Juan 250 mg tablet RxNorm: 903217 1 Tablet(s) PO UD 01/20/2018 01/19/2018 Inactive atorvastatin 10 mg tablet RxNorm: 885504 1 Tablet(s) PO QPM 12/30/2017 12/24/2018 Inactive atorvastatin 10 mg tablet RxNorm: 703827 1 Tablet(s) PO QPM 12/30/2017 12/29/2017 Inactive clonidine HCl 0.1 mg tablet RxNorm: 903870 1 Tablet(s) PO BID 12/29/2017 04/11/2018 Inactive Lipitor 10 mg tablet RxNorm: 505387 1 Tablet(s) PO QPM 12/29/2017 12/29/2017 Inactive OKAY TO DISPENSE GENERIC metoprolol tartrate 50 mg tablet RxNorm: 017838 1/2 Tablet(s) PO BID 12/29/2017 12/01/2018 Inactive alprazolam 0.5 mg tablet RxNorm: 316800 1 Tablet(s) PO TID as needed anxiety 11/18/2017 05/16/2018 Inactive glimepiride 4 mg tablet RxNorm: 258425 1 TABLET(S) PO DAILY 11/15/2017 10/11/2018 Inactive alprazolam 0.5 mg tablet RxNorm: 073701 1 Tablet(s) PO TID as needed anxiety 09/20/2017 11/17/2017 Inactive Zithromax Z-Juan 250 mg tablet RxNorm: 475895 1 Tablet(s) PO UD 09/20/2017 12/28/2017 Inactive Zithromax Z-Juan 250 mg tablet RxNorm: 426399 1 Tablet(s) PO UD 09/14/2017 09/19/2017 Inactive clonidine HCl 0.1 mg tablet RxNorm: 237072 1/2 Tablet(s) PO BID 08/24/2017 12/28/2017 Inactive amlodipine 10 mg tablet RxNorm: 330303 1 Tablet(s) PO daily 08/24/2017 08/18/2018 Inactive erythromycin 5 mg/gram (0.5 %) eye ointment RxNorm: 995162 1 Gram(s) ophthalmic (eye) QID left eye cyst 08/24/2017 09/06/2017 Inactive losartan 100 mg tablet RxNorm: 791132 1 Tablet(s) PO daily for high blood pressure 08/16/2017 08/10/2018 Inactive metoprolol tartrate 50 mg tablet RxNorm: 467027 1/2 Tablet(s) PO BID 07/26/2017 12/28/2017 Inactive clonidine HCl 0.1 mg tablet RxNorm: 570265 1/2 Tablet(s) PO BID 07/26/2017 08/23/2017 Inactive metoprolol tartrate 50 mg tablet RxNorm: 102026 1 Tablet(s) PO BID 07/21/2017 07/25/2017 Inactive amlodipine 10 mg tablet RxNorm: 229618 1 TABLET(S) PO DAILY 06/29/2017 08/23/2017 Inactive Lipitor 10 mg tablet RxNorm: 560281 1 Tablet(s) PO QPM 05/27/2017 12/28/2017 Inactive OKAY TO DISPENSE GENERIC alprazolam 0.5 mg tablet RxNorm: 412514 1 Tablet(s) PO TID as needed anxiety 05/18/2017 08/15/2017 Inactive hydrochlorothiazide 12.5 mg tablet RxNorm: 595631 1 Tablet(s) PO daily 04/22/2017 05/21/2017 Inactive hydrochlorothiazide 12.5 mg tablet RxNorm: 806798 1 Tablet(s) PO daily 04/22/2017 04/21/2017 Inactive Cipro 500 mg tablet RxNorm: 256518 1 Tablet(s) PO BID 04/16/2017 04/22/2017 Inactive Zofran 4 mg tablet RxNorm: 924915 1 Tablet(s) PO BID as needed nausea and vomitting 04/15/2017 04/19/2017 Inactive Lipitor 10 mg tablet RxNorm: 645826 1 Tablet(s) PO QPM 03/30/2017 05/26/2017 Inactive OKAY TO DISPENSE GENERIC Kenalog 40 mg/mL suspension for injection RxNorm: 2458074 1 Milliliter(s) Inj 03/16/2017 03/16/2017 Inactive doxazosin 4 mg tablet RxNorm: 239148 1.5 Tablet(s) PO BID 03/16/2017 05/02/2017 Inactive prednisone 10 mg tablets in a dose pack RxNorm: 652579 Tablet(s) take dose pack as directed PO take with food 03/16/2017 05/23/2017 Inactive Kenalog 40 mg/mL suspension for injection RxNorm: 3857110 Milliliter(s) Inj 03/12/2017 03/12/2017 Inactive Zithromax Z-Juan 250 mg tablet RxNorm: 997755 1 Tablet(s) PO daily 03/11/2017 03/10/2017 Inactive zpack as directed Zithromax Z-Juan 250 mg tablet RxNorm: 843778 1 Tablet(s) PO daily 03/11/2017 03/15/2017 Inactive zpack as directed doxazosin 4 mg tablet RxNorm: 765762 1.5 Tablet(s) PO BID 02/12/2017 03/15/2017 Inactive fluticasone 50 mcg/actuation nasal spray,suspension RxNorm: 9166242 1 SPRAY NASAL BID 02/05/2017 05/05/2018 Inactive metoprolol tartrate 75 mg tablet RxNorm: 4797567 1 Tablet(s) PO BID 01/29/2017 07/19/2017 Inactive metoprolol tartrate 75 mg tablet RxNorm: 2007923 1 Tablet(s) PO BID 01/29/2017 01/28/2017 Inactive doxazosin 4 mg tablet RxNorm: 604804 1 Tablet(s) PO BID 01/20/2017 02/11/2017 Inactive pantoprazole 40 mg tablet,delayed release RxNorm: 453392 1 Tablet(s) PO daily 12/24/2016 01/19/2017 Inactive pantoprazole 40 mg tablet,delayed release RxNorm: 532341 1 Tablet(s) PO daily 12/24/2016 12/23/2016 Inactive alprazolam 0.5 mg tablet RxNorm: 360013 1 Tablet(s) PO TID as needed anxiety 12/03/2016 04/01/2017 Inactive fluticasone 50 mcg/actuation nasal spray,suspension RxNorm: 7495796 1 [place] NASAL BID 11/25/2016 12/24/2016 Inactive Dexilant 60 mg capsule, delayed release RxNorm: 662215 1 Capsule(s) PO daily 11/25/2016 11/24/2016 Inactive fluticasone 50 mcg/actuation nasal spray,suspension RxNorm: 9599907 1 [place] NASAL BID 11/25/2016 11/24/2016 Inactive fluticasone 50 mcg/actuation nasal spray,suspension RxNorm: 2223722 1 [place] NASAL BID 11/25/2016 11/24/2016 Inactive Dexilant 60 mg capsule, delayed release RxNorm: 931520 1 Capsule(s) PO daily 11/25/2016 12/23/2016 Inactive ProAir RespiClick 90 mcg/actuation breath activated RxNorm: 8098590 1 INH bid and QID as needed 11/19/2016 05/17/2017 Inactive Please send STAT Flonase Allergy Relief 50 mcg/actuation nasal spray,suspension RxNorm: 0357380 1 [place] NASAL BID 11/19/2016 11/24/2016 Inactive glimepiride 4 mg tablet RxNorm: 575453 1 Tablet(s) PO daily 11/19/2016 11/13/2017 Inactive metoprolol tartrate 50 mg tablet RxNorm: 321308 1 Tablet(s) PO BID 11/19/2016 01/28/2017 Inactive Flonase Allergy Relief 50 mcg/actuation nasal spray,suspension RxNorm: 8656861 1 [place] NASAL BID 11/17/2016 11/18/2016 Inactive metoprolol tartrate 50 mg tablet RxNorm: 100007 1 Tablet(s) PO BID 11/17/2016 11/18/2016 Inactive ProAir RespiClick 90 mcg/actuation breath activated RxNorm: 4661594 1 INH bid and QID as needed 11/17/2016 11/16/2016 Inactive glimepiride 4 mg tablet RxNorm: 904193 1 Tablet(s) PO daily 11/17/2016 11/18/2016 Inactive ProAir RespiClick 90 mcg/actuation breath activated RxNorm: 0236871 1 INH bid and QID as needed 11/17/2016 11/18/2016 Inactive Please send STAT Kenalog 40 mg/mL suspension for injection RxNorm: 7959674 1 Millil[place](s) Inj 11/05/2016 11/05/2016 Inactive azithromycin 250 mg tablet RxNorm: 122160 Tablet(s) PO 2 tabs on day #1, then daily x 4 days 11/05/2016 12/23/2016 Inactive doxazosin 4 mg tablet RxNorm: 553506 1 Tablet(s) PO QPM 10/02/2016 01/19/2017 Inactive doxazosin 4 mg tablet RxNorm: 261577 1 Tablet(s) PO QPM 09/29/2016 10/01/2016 Inactive doxazosin 4 mg tablet RxNorm: 724079 1 Tablet(s) PO QPM 09/21/2016 09/28/2016 Inactive Cipro 500 mg tablet RxNorm: 134197 1 Tablet(s) PO BID 09/18/2016 09/17/2016 Inactive Cipro 500 mg tablet RxNorm: 606090 1 Tablet(s) PO BID 09/18/2016 09/24/2016 Inactive losartan 100 mg tablet RxNorm: 118063 1 Tablet(s) PO daily for high blood pressure 09/16/2016 09/15/2016 Inactive alprazolam 0.5 mg tablet RxNorm: 695162 1 Tablet(s) PO TID as needed anxiety 09/16/2016 11/14/2016 Inactive losartan 100 mg tablet RxNorm: 300370 1 Tablet(s) PO daily for high blood pressure 09/16/2016 08/15/2017 Inactive amlodipine 10 mg tablet RxNorm: 178291 1 Tablet(s) PO daily 08/03/2016 06/28/2017 Inactive Zyrtec 10 mg tablet RxNorm: 0240139 1 Tablet(s) PO daily 08/03/2016 09/15/2016 Inactive losartan 25 mg tablet RxNorm: 952433 1 Tablet(s) PO daily 07/08/2016 09/15/2016 Inactive Lipitor 10 mg tablet RxNorm: 831862 1 Tablet(s) PO QPM 07/08/2016 07/17/2016 Inactive OKAY TO DISPENSE GENERIC Lipitor 10 mg tablet RxNorm: 033124 1 Tablet(s) PO QPM 07/06/2016 07/07/2016 Inactive OKAY TO DISPENSE GENERIC losartan 25 mg tablet RxNorm: 709367 1 Tablet(s) PO daily 07/06/2016 07/07/2016 Inactive meclizine 25 mg tablet RxNorm: 930147 1 Tablet(s) PO TID as needed No Start Date Active Parafon Forte DSC 500 mg tablet RxNorm: 307071 1 Tablet(s) PO QID No Start Date Active Pazeo 0.7 % eye drops RxNorm: 5498255 Drop(s) ophthalmic (eye) as needed dry eyes No Start Date Active Zithromax Z-Juan 250 mg tablet RxNorm: 719238 1 Tablet(s) PO UD No Start Date 09/13/2017 Inactive glimepiride 4 mg tablet RxNorm: 175929 1 Tablet(s) PO daily No Start Date 11/16/2016 Inactive metoprolol tartrate 100 mg tablet RxNorm: 337810 1 Tablet(s) PO BID No Start Date 07/21/2017 Inactive naproxen 500 mg tablet RxNorm: 801774 1 Tablet(s) PO BID No Start Date 03/23/2017 Inactive amlodipine 5 mg tablet RxNorm: 339535 1 Tablet(s) PO daily No Start Date 08/02/2016 Inactive metoprolol tartrate 50 mg tablet RxNorm: 880554 1 Tablet(s) PO BID No Start Date 11/16/2016 Inactive Medication Administered Medication Codes Instructions Start Date Status Kenalog 40 mg/mL suspension for injection RxNorm: 1265245 [place] 01/02/2019 No longer Active Kenalog 40 mg/mL suspension for injection RxNorm: 0509425 1Milliliter 10/12/2018 No longer Active Kenalog 40 mg/mL suspension for injection RxNorm: 7333398 1Milliliter 03/16/2017 No longer Active Kenalog 40 mg/mL suspension for injection RxNorm: 6293005 Milliliter 03/12/2017 No longer Active Kenalog 40 mg/mL suspension for injection RxNorm: 3965317 1Milliliter 11/05/2016 No longer Active Immunizations Vaccine Codes Date Status Influenza CVX: 141 08/16/2018 completed Influenza CVX: 141 08/10/2017 completed Assessments Condition Codes Effective Dates Other allergic rhinitis ICD-10: J30.89 ICD-9: 477.8 01/16/2019 Essential (primary) hypertension ICD-10: I10 ICD-9: 401.1 01/16/2019 Cough ICD-10: R05 ICD-9: 786.2 01/02/2019 [...] Visit Reason For Visit Effective Dates Notes cough 01/16/2019 sinus congestion 10/12/2018 Annual Medicare [...] Lipid Ord30 C/HDL 3.1 Ratio 08/18/2018 Microalbumin Kub620 MicroAlb 7.5 mg/dL 08/18/2018 Cbc With Differential [...] 29.6 pg 08/18/2018 Cbc With Differential Ord2 [place]% 10.6 % 08/18/2018 Cbc With Differential Ord2 [...] 1.69 K/ul 08/18/2018 Cbc With Differential Ord2 [place] ABS# 0.6 K/ul 08/18/2018 Cbc With Differential Ord2 Eos ABS# 0.3 K/ul 08/18/2018 Cbc With Differential Ord2 Baso ABS# 0.0 K/ul 08/18/2018 Comp Metabolic Ios744 NA 137 mEq/L 08/18/2018 Comp Metabolic Wjq911 K 3.8 mEq/L 08/18/2018 Comp Metabolic Inm676 CL 103 mEq/L 08/18/2018 Comp Metabolic Rqz304 CO2 26.0 mEq/L 08/18/2018 Comp Metabolic Hxm355 ANION GAP 12 08/18/2018 Comp Metabolic Xan677 GLUCOSE 110 mg/dL 08/18/2018 Comp Metabolic Paa861 Creat 1.2 mg/dL 08/18/2018 Comp Metabolic Ntw901 eGFR 47 ml/min/1.73m2 08/18/2018 Comp Metabolic Yfk575 BUN 25 mg/dL 08/18/2018 Comp Metabolic Imj605 B/C Ratio 21.0 Ratio 08/18/2018 Comp Metabolic Wun611 CALCIUM 9.4 mg/dL 08/18/2018 Comp Metabolic Otn281 ALK PHOS 99 U/L 08/18/2018 Comp Metabolic Dlf213 AST(SGOT) 31 U/L 08/18/2018 Comp Metabolic Bxk908 ALT(SGPT) 27 U/L 08/18/2018 Comp Metabolic Qjr842 BILI T 0.7 mg/dL 08/18/2018 Comp Metabolic Zxk167 ALBUMIN 4.2 g/dL 08/18/2018 Comp Metabolic Gjx757 TPRO 6.7 g/dL 08/18/2018 Comp Metabolic Yyx267 GLOB 2.5 g/dL 08/18/2018 Comp Metabolic Jwx125 A/G Ratio 1.7 Ratio 08/18/2018 Comp Metabolic Xyf434 Osmo 279 mOsmo 08/18/2018 %Hba1C Zhv288 % HbA1c 21411- 6 6.1 % 08/18/2018 %Hba1C Uhu779 Gluc Ave 128 mg/dL 08/18/2018 Tsh Ord6 TSH (3rd IS) 3.93 uIU/mL 08/18/2018 Lipid Ord30 CHOL 146 mg/dL 04/15/2018 Lipid Ord30 HDL 62.0 mg/dl 04/15/2018 Lipid Ord30 TRIG 88 mg/dL 04/15/2018 Lipid Ord30 LDL 66 mg/dL 04/15/2018 Lipid Ord30 C/HDL 2.4 Ratio 04/15/2018 %Hba1C Fkn876 % HbA1c 68337- 6 6.3 % 04/15/2018 %Hba1C Ryu597 Gluc Ave 134 mg/dL 04/15/2018 Cbc With [...] 30.2 pg 04/15/2018 Cbc With Differential Ord2 [place]% 6.8 % 04/15/2018 Cbc With Differential Ord2 [...] 2.10 K/ul 04/15/2018 Cbc With Differential Ord2 [place] ABS# 0.5 K/ul 04/15/2018 Cbc With Differential Ord2 Eos ABS# 0.2 K/ul 04/15/2018 Cbc With Differential Ord2 Baso ABS# 0.0 K/ul 04/15/2018 Comp Metabolic Zmc331 NA 140 mEq/L 04/15/2018 Comp Metabolic Vsv885 K 4.3 mEq/L 04/15/2018 Comp Metabolic Rgf727 CL 106 mEq/L 04/15/2018 Comp Metabolic Ipw568 CO2 23.0 mEq/L 04/15/2018 Comp Metabolic Zil213 ANION GAP 15 04/15/2018 Comp Metabolic Qji247 GLUCOSE 90 mg/dL 04/15/2018 Comp Metabolic Dqe975 Creat 1.2 mg/dL 04/15/2018 Comp Metabolic Igj107 eGFR 45 ml/min/1.73m2 04/15/2018 Comp Metabolic Hpl386 BUN 28 mg/dL 04/15/2018 Comp Metabolic Duc863 B/C Ratio 22.8 Ratio 04/15/2018 Comp Metabolic Bex678 CALCIUM 9.5 mg/dL 04/15/2018 Comp Metabolic Yjy416 ALK PHOS 95 U/L 04/15/2018 Comp Metabolic Vyz432 AST(SGOT) 20 U/L 04/15/2018 Comp Metabolic Gky425 ALT(SGPT) 13 U/L 04/15/2018 Comp Metabolic Xls045 BILI T 0.5 mg/dL 04/15/2018 Comp Metabolic Hqf880 ALBUMIN 4.1 g/dL 04/15/2018 Comp Metabolic Ukr301 TPRO 6.6 g/dL 04/15/2018 Comp Metabolic Ahy216 GLOB 2.5 g/dL 04/15/2018 Comp Metabolic Ggx260 A/G Ratio 1.6 Ratio 04/15/2018 Comp Metabolic Qqa647 Osmo 284 mOsmo 04/15/2018 Comp Metabolic Grm090 NA 137 mEq/L 02/04/2018 Comp Metabolic Zuk150 K 4.0 mEq/L 02/04/2018 Comp Metabolic Tjc777 CL 104 mEq/L 02/04/2018 Comp Metabolic Hbe165 CO2 27.0 mEq/L 02/04/2018 Comp Metabolic Qrp428 ANION GAP 10 02/04/2018 Comp Metabolic Dim707 GLUCOSE 212 mg/dL 02/04/2018 Comp Metabolic Jdc447 Creat 1.2 mg/dL 02/04/2018 Comp Metabolic Lgg303 eGFR 47 ml/min/1.73m2 02/04/2018 Comp Metabolic Enk586 BUN 20 mg/dL 02/04/2018 Comp Metabolic Wje925 B/C Ratio 16.8 Ratio 02/04/2018 Comp Metabolic Ndb412 CALCIUM 8.9 mg/dL 02/04/2018 Comp Metabolic Cjl602 ALK PHOS 107 U/L 02/04/2018 Comp Metabolic Qsp760 AST(SGOT) 17 U/L 02/04/2018 Comp Metabolic Vbr336 ALT(SGPT) 11 U/L 02/04/2018 Comp Metabolic Nps822 BILI T 0.4 mg/dL 02/04/2018 Comp Metabolic Qdd493 ALBUMIN 3.8 g/dL 02/04/2018 Comp Metabolic Qmk915 TPRO 6.2 g/dL 02/04/2018 Comp Metabolic Mvj907 GLOB 2.4 g/dL 02/04/2018 Comp Metabolic Ayy643 A/G Ratio 1.6 Ratio 02/04/2018 Comp Metabolic Qed298 Osmo 283 mOsmo 02/04/2018 %Hba1C Kpy767 % HbA1c 56135- 6 6.3 % 12/30/2017 %Hba1C Ozm206 Gluc Ave 134 mg/dL 12/30/2017 Comp Metabolic Qzn869 NA 142 mEq/L 12/30/2017 Comp Metabolic Lyo646 K 4.4 mEq/L 12/30/2017 Comp Metabolic Ffh773 CL 103 mEq/L 12/30/2017 Comp Metabolic Ctd998 CO2 31.0 mEq/L 12/30/2017 Comp Metabolic Pew253 ANION GAP 12 12/30/2017 Comp Metabolic Etf060 GLUCOSE 119 mg/dL 12/30/2017 Comp Metabolic Fiu615 Creat 1.4 mg/dL 12/30/2017 Comp Metabolic Okb739 eGFR 41 ml/min/1.73m2 12/30/2017 Comp Metabolic Gmn886 BUN 27 mg/dL 12/30/2017 Comp Metabolic Zyj821 B/C Ratio 20.0 Ratio 12/30/2017 Comp Metabolic Syl590 CALCIUM 9.9 mg/dL 12/30/2017 Comp Metabolic Lco862 ALK PHOS 106 U/L 12/30/2017 Comp Metabolic Xxk016 AST(SGOT) 20 U/L 12/30/2017 Comp Metabolic Edt634 ALT(SGPT) 13 U/L 12/30/2017 Comp Metabolic Hbu489 BILI T 0.7 mg/dL 12/30/2017 Comp Metabolic Pqy992 ALBUMIN 4.2 g/dL 12/30/2017 Comp Metabolic Pge297 TPRO 6.7 g/dL 12/30/2017 Comp Metabolic Knu350 GLOB 2.6 g/dL 12/30/2017 Comp Metabolic Tab504 A/G Ratio 1.6 Ratio 12/30/2017 Comp Metabolic Eql453 Osmo 289 mOsmo 12/30/2017 Lipid Ord30 CHOL 167 mg/dL 12/30/2017 Lipid Ord30 HDL 63.0 mg/dl 12/30/2017 Lipid Ord30 TRIG 89 mg/dL 12/30/2017 Lipid Ord30 LDL 86 mg/dL 12/30/2017 Lipid Ord30 C/HDL 2.7 Ratio 12/30/2017 Urine Culture Ucult Preliminary NO Growth Day 1 04/17/2017 Urine Culture Ucult Complete NO Growth Day 2 04/17/2017 Comp Metabolic Yxy785 NA 143 mEq/L 04/15/2017 Comp Metabolic Jtl895 K 4.6 mEq/L 04/15/2017 Comp Metabolic Slg077 CL 110 mEq/L 04/15/2017 Comp Metabolic Wkz398 CO2 30.0 mEq/L 04/15/2017 Comp Metabolic Vjg787 ANION GAP 8 04/15/2017 Comp Metabolic Ihg098 GLUCOSE 159 mg/dL 04/15/2017 Comp Metabolic Nol567 Creat 1.1 mg/dL 04/15/2017 Comp Metabolic Ins287 eGFR 54 ml/min/1.73m2 04/15/2017 Comp Metabolic Bfw940 BUN 27 mg/dL 04/15/2017 Comp Metabolic Dso366 B/C Ratio 25.7 Ratio 04/15/2017 Comp Metabolic Znv446 CALCIUM 9.4 mg/dL 04/15/2017 Comp Metabolic Crl366 ALK PHOS 93 U/L 04/15/2017 Comp Metabolic Iwq976 AST(SGOT) 19 U/L 04/15/2017 Comp Metabolic Qgf924 ALT(SGPT) 18 U/L 04/15/2017 Comp Metabolic Wyt589 BILI T 0.6 mg/dL 04/15/2017 Comp Metabolic Wyc256 ALBUMIN 3.9 g/dL 04/15/2017 Comp Metabolic Azo063 TPRO 6.5 g/dL 04/15/2017 Comp Metabolic Tkv389 GLOB 2.6 g/dL 04/15/2017 Comp Metabolic Qsf403 A/G Ratio 1.5 Ratio 04/15/2017 Comp Metabolic Nib263 Osmo 293 mOsmo 04/15/2017 Tsh Ord6 hTSH II 2.05 uIU/mL 04/15/2017 %Hba1C Lkc501 % HbA1c 57561- 6 6.3 % 04/15/2017 %Hba1C Zja640 Gluc Ave 134 mg/dL 04/15/2017 Cbc With [...] 29.0 pg 04/15/2017 Cbc With Differential Ord2 [place]% 6.9 % 04/15/2017 Cbc With Differential Ord2 [...] 1.58 K/ul 04/15/2017 Cbc With Differential Ord2 [place] ABS# 0.5 K/ul 04/15/2017 Cbc With Differential [...] Ord28 U-Com Culture to follow 04/15/2017 %Hba1C Dvk070 % HbA1c 20850- 6 5.8 % 01/07/2017 %Hba1C Tqu757 Gluc Ave 120 mg/dL 01/07/2017 Urine Culture Ucult Preliminary NO Growth Day 1 09/21/2016 Urine Culture Ucult Complete NO Growth Day 2 09/21/2016 %Hba1C Wie408 % HbA1c 23270- 6 6.0 % 09/17/2016 %Hba1C Gzc628 Gluc Ave 126 mg/dL 09/17/2016 Comp Metabolic Zpe180 NA 140 mEq/L 09/17/2016 Comp Metabolic Pgi542 K 4.1 mEq/L 09/17/2016 Comp Metabolic Jjr125 CL 105 mEq/L 09/17/2016 Comp Metabolic Uwm956 CO2 29.0 mEq/L 09/17/2016 Comp Metabolic Kym300 ANION GAP 10 09/17/2016 Comp Metabolic Tjt729 GLUCOSE 89 mg/dL 09/17/2016 Comp Metabolic Zan340 Creat 0.9 mg/dL 09/17/2016 Comp Metabolic Jmj324 eGFR 65 ml/min/1.73m2 09/17/2016 Comp Metabolic Cuq874 BUN 20 mg/dL 09/17/2016 Comp Metabolic Qee079 B/C Ratio 22.2 Ratio 09/17/2016 Comp Metabolic Icx839 CALCIUM 9.3 mg/dL 09/17/2016 Comp Metabolic Wba628 ALK PHOS 107 U/L 09/17/2016 Comp Metabolic Tpk767 AST(SGOT) 22 U/L 09/17/2016 Comp Metabolic Ujl087 ALT(SGPT) 15 U/L 09/17/2016 Comp Metabolic Nln165 BILI T 0.7 mg/dL 09/17/2016 Comp Metabolic Jrz961 ALBUMIN 4.0 g/dL 09/17/2016 Comp Metabolic Ldh653 TPRO 6.8 g/dL 09/17/2016 Comp Metabolic Joh633 GLOB 2.8 g/dL 09/17/2016 Comp Metabolic Wwo615 A/G Ratio 1.4 Ratio 09/17/2016 Comp Metabolic Bfn403 Osmo 281 mOsmo 09/17/2016 Microalbumin Nte256 MicroAlb 44.3 mg/dL 09/17/2016 Tsh Ord6 hTSH [...] 29.0 pg 09/17/2016 Cbc With Differential Ord2 [place]% 8.1 % 09/17/2016 Cbc With Differential Ord2 [...] 1.78 K/ul 09/17/2016 Cbc With Differential Ord2 [place] ABS# 0.6 K/ul 09/17/2016 Cbc With Differential Ord2 Eos ABS# 0.2 K/ul 09/17/2016 Cbc With Differential Ord2 Baso ABS# 0.0 K/ul 09/17/2016 Lipid Ord30 CHOL 136 mg/dL 09/17/2016 Lipid Ord30 HDL 50.0 mg/dl 09/17/2016 Lipid Ord30 TRIG 70 mg/dL 09/17/2016 Lipid Ord30 LDL 72 mg/dL 09/17/2016 Lipid Ord30 C/HDL 2.7 Ratio 09/17/2016 Review of Systems System Result Effective Dates Constitutional recent illness 01/16/2019 Constitutional No chills [...] General 1995 Ears/Nose/Throat lips/teeth/gingiva Overall: benign lips 11/05/2016 None [...] Procedure Codes Date THER/PROPH/DIAG INJ SC/IM CPT-4: 31438 01/02/2019 TRIAMCINOLONE ACET INJ NOS CPT-4: J3301 01/02/2019 TRIAMCINOLONE ACET INJ NOS CPT-4: J3301 10/12/2018 THER/PROPH/DIAG INJ SC/IM CPT-4: 51236 10/12/2018 PPPS, SUBSEQ VISIT CPT- 4: G0439 09/06/2018 URINALYSIS NONAUTO W/O SCOPE CPT-4: 91210 12/29/2017 PPPS, SUBSEQ VISIT CPT- 4: G0439 03/30/2017 THER/PROPH/DIAG INJ SC/IM CPT-4: 48279 03/16/2017 TRIAMCINOLONE ACET INJ NOS CPT-4: J3301 03/16/2017 THER/PROPH/DIAG INJ SC/IM CPT-4: 90888 03/12/2017 TRIAMCINOLONE ACET INJ NOS CPT-4: J3301 03/12/2017 THER/PROPH/DIAG INJ SC/IM CPT-4: 49083 11/05/2016 TRIAMCINOLONE ACET INJ NOS CPT-4: J3301 11/05/2016 URINALYSIS NONAUTO W/O SCOPE CPT-4: 25830 09/18/2016 Vital Signs Date Vital 01/16/2019 Blood Pressure 1: 156/70 Code: 8480-6 BMI: 30.1 Code: 66502-0 Heart Rate 1: 50 bpm Height: 5'7" SpO2: 98% Weight: 192 lbs 10/12/2018 Blood Pressure 1: 142/76 Code: 8480-6 BMI: 30.1 Code: 81302-1 Heart Rate 1: 83 bpm Height: 5'7" SpO2: 98% Weight: 192 lbs 09/06/2018 Blood Pressure 1: 142/66 Code: 8480-6 BMI: 30.9 Code: 83764-1 Heart Rate 1: 64 bpm Height: 5'7" SpO2: 98% Waist Measure (cm): 99 cm Weight: 197 lbs 08/16/2018 Blood Pressure 1: 140/70 Code: 8480-6 BMI: 34.4 Code: 59616-3 Heart Rate 1: 63 bpm Height: 5'7" SpO2: 95% Weight: 219 lbs 14 oz 04/12/2018 Blood Pressure 1: 160/70 Code: 8480-6 BMI: 33.0 Code: 64552-3 Heart Rate 1: 82 bpm Height: 5'7" SpO2: 95% Weight: 211 lbs 01/20/2018 Blood Pressure 1: 152/66 Code: 8480-6 BMI: 31.8 Code: 06726-0 Heart Rate 1: 52 bpm Height: 5'7" SpO2: 98% Temperature: 36.3 (C) / 97.3 (F) Weight: 203 lbs 12/29/2017 Blood Pressure 1: 168/72 Code: 8480-6 BMI: 32.1 Code: 08602-9 Heart Rate 1: 63 bpm Height: 5'7" SpO2: 98% Weight: 205 lbs 08/24/2017 Blood Pressure 1: 186/70 Code: 8480-6 Blood Pressure 1: 150/70 Code: 8480-6 BMI: 31.8 Code: 31077-1 Heart Rate 1: 53 bpm Height: 5'7" SpO2: 98% Weight: 203 lbs 07/26/2017 Blood Pressure 1: 206/78 Code: 8480-6 Blood Pressure 2: 210/84 Code: 8480-6 BMI: 32.0 Code: 99014-2 Heart Rate 1: 49 bpm Height: 5'7" SpO2: 97% Weight: 204 lbs 07/20/2017 Blood Pressure 1: 148/82 Code: 8480-6 Heart Rate 1: 90 bpm SpO2: 98% 05/27/2017 Blood Pressure 1: 142/72 Code: 8480-6 BMI: 30.5 Code: 87662-7 Heart Rate 1: 97 bpm Height: 5'7" [...] 1: 148/70 Code: 8480-6 BMI: 30.4 Code: 82314-3 Heart Rate 1: 54 bpm Height: 5'7" SpO2: 97% Weight: 194 lbs 03/30/2017 BMI: 33.2 Code: 46315-5 Height: 5'7" Weight: 212 lbs 03/16/2017 Blood Pressure 1: 140/80 Code: 8480-6 BMI: 34.0 Code: 20799-1 Heart Rate 1: 70 bpm Height: 5'7" SpO2: 95% Weight: 217 lbs 03/12/2017 Blood Pressure 1: 142/80 Code: 8480-6 BMI: 34.0 Code: 17493-3 Heart Rate 1: 76 bpm Height: 5'7" SpO2: 92% Weight: 217 lbs 02/17/2017 Blood Pressure 1: 162/64 Code: 8480-6 BMI: 32.9 Code: 78839-4 Heart Rate 1: 59 bpm Height: 5'7" SpO2: 97% Weight: 210 lbs 01/20/2017 Blood Pressure 1: 162/74 Code: 8480-6 BMI: 32.9 Code: 69886-3 Heart Rate 1: 56 bpm Height: 5'7" SpO2: 98% Weight: 210 lbs 11/17/2016 Blood Pressure 1: 156/60 Code: 8480-6 BMI: 34.8 Code: 47808-4 Heart Rate 1: 63 bpm Height: 5'7" SpO2: 96% Weight: 222 lbs 11/05/2016 Blood Pressure 1: 160/68 Code: 8480-6 BMI: 34.5 Code: 94163-9 Heart Rate 1: 66 bpm Height: 5'7" SpO2: 97% Temperature: 36.9 (C) / 98.5 (F) Weight: 220 lbs 09/21/2016 Blood Pressure 1: 180/72 Code: 8480-6 Blood Pressure 1: 166/72 Code: 8480-6 BMI: 32.1 Code: 68973-3 Heart Rate 1: 57 bpm Height: 5'7" SpO2: 98% Weight: 205 lbs 09/16/2016 Blood Pressure 1: 168/70 Code: 8480-6 Heart Rate 1: 49 bpm SpO2: 95% 08/03/2016 Blood Pressure 1: 162/70 Code: 8480-6 BMI: 32.0 Code: 07489-0 Heart Rate 1: 43 bpm Height: 5'7" SpO2: 98% Weight: 204 lbs 07/06/2016 Blood Pressure 1: 170/86 Code: 8480-6 BMI: 32.0 Code: 32134-6 Heart Rate 1: 48 bpm Height: 5'7" SpO2: 97% Weight: 204 lbs Functional Status No Functional Status data History of Present Illness Symptom Name Status Result Effective Date Notes Location in the throat 01/16/2019 None Quality [...] data Encounters Encounter Performer Location Codes Date ([id number]) [id number] EST. PATIENT, LEVEL III Diagnosis: Essential (primary) hypertension[ICD10: I10] Diagnosis: Other allergic rhinitis[ICD10: J30.89] Yuridia Camejo MD, [facility] CPT-4: 88355 01/16/2019 16274 EST. PATIENT, LEVEL IV Diagnosis: Other acute sinusitis[ICD10: J01.80] Diagnosis: Other allergic rhinitis[ICD10: J30.89] Krysta Camejo MD, [facility] CPT- 4: 79303 10/12/2018 [id number]) 48912 EST. PATIENT, LEVEL IV Diagnosis: Essential (primary) hypertension[ICD10: I10] Diagnosis: Type 2 diabetes mellitus without complications[ICD10: E11.9] Diagnosis: Mixed hyperlipidemia[ICD10: E78.2] Fifi Camejo MD, [facility] CPT- 4: 81029 08/16/2018 [id number]) 09104 EST. PATIENT, LEVEL IV Diagnosis: Type 2 diabetes mellitus without complications[ICD10: E11.9] Diagnosis: Mixed hyperlipidemia[ICD10: E78.2] Diagnosis: Essential (primary) hypertension[ICD10: I10] Diagnosis: Dysuria[ICD10: R30.0] Diagnosis: Pain in left foot[ICD10: M79.672] Fifi Camejo MD, [facility] CPT- 4: 17167 04/12/2018 [id number]) 49024 EST. PATIENT, LEVEL III Diagnosis: Otalgia, bilateral[ICD10: H92.03] Diagnosis: Other allergic rhinitis[ICD10: J30.89] Yuridia Camejo MD, [facility] CPT-4: 27176 01/20/2018 [id number]) 46252 EST. PATIENT, LEVEL IV Diagnosis: Type 2 diabetes mellitus without complications[ICD10: E11.9] Diagnosis: Mixed hyperlipidemia[ICD10: E78.2] Diagnosis: Essential (primary) hypertension[ICD10: I10] Diagnosis: Dysuria[ICD10: R30.0] Fifi Camejo MD, [facility] CPT-4: 29315 12/29/2017 ([id number]) 32716 EST. PATIENT, LEVEL IV Diagnosis: Essential (primary) hypertension[ICD10: I10] Diagnosis: Cysts of left upper eyelid[ICD10: H02.824] Diagnosis: Pain in left foot[ICD10: M79.672] Fifi Camejo MD, [facility] CPT- 4: 53906 08/24/2017 ([id number]) 13274 EST. PATIENT, LEVEL III Diagnosis: Essential (primary) hypertension[ICD10: I10] Fifi Camejo MD, [facility] CPT-4: 15456 07/26/2017 ([id number]) Miscellaneous no charge Diagnosis: Essential (primary) hypertension[ICD10: I10] Fifi Camejo MD, [facility] CPT-4: 34420 07/20/2017 37831 EST. PATIENT, LEVEL III Diagnosis: Otalgia, bilateral[ICD10: H92.03] Diagnosis: Dizziness and giddiness[ICD10: R42] Diagnosis: Mixed hyperlipidemia[ICD10: E78.2] Krysta Camejo MD, [facility] CPT-4: 06962 05/27/2017 ([id number]) Miscellaneous no charge Diagnosis: Essential (primary) hypertension[ICD10: I10] Krysta Camejo MD, [facility] CPT-4: 94907 05/07/2017 ([id number]) 93514 EST. PATIENT, LEVEL IV Diagnosis: Otalgia, bilateral[ICD10: H92.03] Diagnosis: Dizziness and giddiness[ICD10: R42] Diagnosis: Orthostatic hypotension[ICD10: I95.1] Fifi Camejo MD, [facility] CPT-4: 13975 05/03/2017 73120 EST. PATIENT, LEVEL IV Diagnosis: Essential (primary) hypertension[ICD10: I10] Diagnosis: Type 2 diabetes mellitus without complications[ICD10: E11.9] Diagnosis: Gastro-esophageal reflux disease without esophagitis[ICD10: K21.9] Diagnosis: Dizziness and giddiness[ICD10: R42] Diagnosis: Dysuria[ICD10: R30.0] Diagnosis: Other malaise[ICD10: R53.81] Krysta Camejo MD [facility] CPT-4: 82994 04/15/2017 ([id number]) 69918 EST. PATIENT, LEVEL IV Diagnosis: Type 2 diabetes mellitus without complications[ICD10: E11.9] Diagnosis: Otalgia, bilateral[ICD10: H92.03] Diagnosis: Essential (primary) hypertension[ICD10: I10] Diagnosis: Other allergic rhinitis[ICD10: J30.89] Fifi Camejo MD [facility] CPT-4: 17695 03/16/2017 56297 EST. PATIENT, LEVEL IV Diagnosis: Other acute sinusitis[ICD10: J01.80] Diagnosis: Acute suppurative otitis media without spontaneous rupture of ear drum, bilateral[ICD10: H66.003] Diagnosis: Other allergic rhinitis[ICD10: J30.89] Krysta Camejo MD [facility] CPT- 4: 78641 03/12/2017 ([id number]) 32693 EST. PATIENT, LEVEL IV Diagnosis: Essential (primary) hypertension[ICD10: I10] Diagnosis: Type 2 diabetes mellitus without complications[ICD10: E11.9] Fifi Camejo MD [facility] CPT-4: 97578 02/17/2017 ([id number]) 79034 EST. PATIENT, LEVEL IV Diagnosis: Essential (primary) hypertension[ICD10: I10] Diagnosis: Type 2 diabetes mellitus without complications[ICD10: E11.9] Fifi Camejo MD [facility] CPT-4: 02219 01/20/2017 ([id number]) 82230 EST. PATIENT, LEVEL IV Diagnosis: Essential (primary) hypertension[ICD10: I10] Diagnosis: Type 2 diabetes mellitus without complications[ICD10: E11.9] Diagnosis: Gastro-esophageal reflux disease without esophagitis[ICD10: K21.9] Fifi Camejo MD [facility] CPT-4: 51051 11/17/2016 ([id number]) 86917 EST. PATIENT, LEVEL III Diagnosis: Acute bronchitis due to other specified organisms[ICD10: J20.8] Diagnosis: Cough[ICD10: R05] Fifi Camejo MD, [facility] CPT-4: 00029 11/05/2016 ([id number]) 56584 EST. PATIENT, LEVEL IV Diagnosis: Essential (primary) hypertension[ICD10: I10] Diagnosis: Type 2 diabetes mellitus without complications[ICD10: E11.9] Fifi Camejo MD, [facility] CPT-4: 09664 09/21/2016 ([id number]) Miscellaneous no charge Diagnosis: Essential (primary) hypertension[ICD10: I10] [facility] Redmond MD CPT-4: 60892 09/16/2016 ([id number]) 00897 EST. PATIENT, LEVEL III Diagnosis: Type 2 diabetes mellitus without complications[ICD10: E11.9] Diagnosis: Essential (primary) hypertension[ICD10: I10] [facility] Redmond MD CPT-4: 18094 08/03/2016 ([id number]) OFFICE VISIT, NEW - LEVEL 4 Diagnosis: Essential (primary) hypertension[ICD10: I10] Diagnosis: Type 2 diabetes mellitus without complications[ICD10: E11.9] Diagnosis: Carpal tunnel syndrome, left upper limb[ICD10: G56.02] Diagnosis: Right upper quadrant pain[ICD10: R10.11] Diagnosis: Mixed hyperlipidemia[ICD10: E78.2] Fifi Camejo MD, [facility] CPT- 4: 24222 07/06/2016 Plan of Care Planned Activity Notes [...] 10/12/2018 [phone] [facility] ([facility] min[facility] Complex 10/12/2018 Patient Education: Patient [...] surrogate. 09/06/2018 Appointment: [phone] [facility] [place] [address] - Annual Wellness Visit 09/06/2018 Patient Education: Patient Medication Summary Completed 09/06/2018 Appointment: [facility] [phone] [phone] [facility] - Annual Wellness Visit 08/29/2018 Visit Plan: [...] dications. 08/16/2018 [facility]ment[phone] [facility] ([facility]) Moderate 08/16/2018 Patient Education: [...] the foot. 04/12/2018 Appointment: [phone] [facility] (15 min) Moderate 04/12/2018 Patient Education: Patient Medication Summary Completed 04/12/2018 Care Plan: Referral Order SNOMED-CT : [id number] Pending 04/12/2018 Patient Education: Patient Medication Summary [...] spray. 01/20/2018 Appointment: [facility] [phone] [facility] (15 min) Moderate 01/20/2018 Patient Education: Patient [...] less controlled. 12/29/2017 Appointment: [facility] [phone] [facility] (15 min) Moderate 12/29/2017 Patient Education: [...] - recommended referral to Dr. Anders in [place] 08/24/2017 Appointment: [facility]jo [facility]el[facility] [phone] [facility] (15 min) Moderate 08/24/2017 Patient Education: Patient Medication Summary Completed 08/24/2017 Care Plan: Referral Order SNOMED-CT : [id number] Pending 08/24/2017 Visit Plan: Hypertension - uncontrolled [...] listed above. 07/26/2017 Appointment: Fifi Camejo WPtel: [facility] [place] (15 min) Moderate 07/26/2017 Patient Education: [...] medications. 05/27/2017 Appointment: [facility] [phone] [facility] (15 min) Moderate 05/27/2017 Patient Education: Patient Medication Summary Completed 05/27/2017 Appointment: Nurse Visit 05/07/2017 Patient Education: Patient Medication Summary Completed 05/07/2017 Visit Plan: Persistent vergito with bilateral air-fluid levels and ear pain. Pt was seen by Dr. Calvo- she did not like his response to her complaints. I have recommended a referral to ENT in [place] or [place]. I suspect she may need myringotomy tubes. Pt to continue with flonase. Orthostatic hypotension - dc doxazosin. Monitor blood pressures at home. stop the doxazosin meclizine change to 1/2 pill three times a day come back on Wednesday for blood pressure check 05/03/2017 Appointment: [facility] [phone] [facility] [place] (15 min) Moderate 05/03/2017 Patient Education: Patient Medication Summary Completed 05/03/2017 Appointment: [facility] [phone] [facility] (15 min) Moderate 04/21/2017 Visit Plan: [...] control. 04/15/2017 Appointment: Krysta Dale WPtel: [phone] [facility] (30 min) Complex 04/15/2017 Patient Education: Patient [...] surrogate. 03/30/2017 Appointment: [facility] Dale [facility] [phone] [facility] [facility] - Annual Wellness Visit 03/30/2017 [...] pt to have a referral to dr. cavlo - appt sometime after March 24 Hypertension - well controlled - continue with current medications, continue with no added salt diet. Pt has been encouraged to exercise daily. The pt has been advised to call the office if there are any acute concerns about change in blood pressure readings at home. 03/16/2017 Appointment: Fifi Camejo WPtel: [phone] [facility] (30 min) Complex 03/16/2017 Patient Education: Patient Medication Summary Completed 03/16/2017 Patient Education: Obesity Completed 03/16/2017 Care Plan: Referral Order SNOMED-CT : [id number] Pending 03/16/2017 Visit Plan: Allergies - chronic [...] worsen. 03/12/2017 Appointment: [facility] Dale [facility] [phone] [facility] (15 min) Moderate 03/12/2017 Patient Education: [...] controlled. 02/17/2017 Appointment: [facility] [phone] [facility] ([facility] min) Complex 02/17/2017 Patient Education: [...] controlled. 01/20/2017 Appointment: [facility] [phone] [facility] ([facility] min) Complex 01/20/2017 Patient Education: [...] dexilant 11/17/2016 Appointment: Fifi Camejo WPtel: [phone] [facility] (30 min) Complex 11/17/2016 Patient Education: Patient [...] range. 09/21/2016 Appointment: Fifi Camejo WPtel: [phone] [facility] (15 min) Moderate 09/21/2016 Patient Education: Patient [...] this time. 08/03/2016 Appointment: Fifi Camejo WPtel: [facility] [address] (15 min) Moderate 08/03/2016 Patient Education: Patient [...] improving. 07/06/2016 Appointment: Fifi Camejo WPtel: [phone] [facility] New Patient 07/06/2016 Patient Education: Patient Medication [...] have a referral to dr. calvo - [facility] sometime after March 24 Hypertension - well [...] monitor your heart rate Consider referral for [facility] for possible stress test if needed. Call [...] monitor your heart rate Consider referral for [facility] for possible stress test if needed. Call [...] to allow for greater blood glucose control. INCREASE FLONASE TO TWICE DAILY zpack . [...] have recommended a referral to ENT in [place] or [place]. I suspect she may need myringotomy tubes. [...] - recommended referral to Dr. Anders in [place]
--- OUTSIDE RECORDS SUMMARY | 2019-03-08 16:20 | XMS REPORT | CCD ---
Author Author Fifi Camejo MD, 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 Name Role Phone PP Unavailable CCM Unavailable Summary Purpose Interface Exchange Insurance Providers Payer name Policy type / Coverage type Covered democrat ID Effective Begin Date Effective End Date WPS Medicare Part B Medicare Part B [id number] 2018 Unknown FOR LIFE WPS Medicare Part B [id number] Unknown Family history Father Diagnosis Age At Onset Cancer Unknown Brother Diagnosis Age At Onset Diabetes mellitus Type 2 Unknown Heart Attack Unknown Social History Social History Element Codes Description Effective Dates Marital status Unknown Wu 11/05/2016 Number of children Unknown 1 07/06/2016 Employment Unknown Retired 07/06/[address]: 673984796 Never smoker 07/06/[address]: 254902239 Never drinks alcohol 07/06/2016 Allergies, Adverse Reactions, Alerts Substance Reaction Codes Entered Date Inactivated Date Status Protonix hives RxNorm: 483875 09/06/2018 No Inactive Date Active IV DYE, [...] Fill Instructions atorvastatin 10 mg tablet RxNorm: 826815 1 Tablet(s) PO QPM 01/16/2019 01/10/2020 Active hydralazine 10 mg tablet RxNorm: 219308 1 Tablet(s) PO TID PRN 01/16/2019 07/14/2019 Active prn sbp over 150 alprazolam 0.5 mg tablet RxNorm: 526116 1 Tablet(s) PO TID as needed anxiety 01/16/2019 07/14/2019 Active clonidine HCl 0.1 mg tablet RxNorm: 725372 1/2 Tablet(s) PO QHS 01/16/2019 01/16/2019 Inactive fluticasone propionate 50 mcg/actuation nasal spray,suspension RxNorm: 2383623 2 Tornado daily USE 1 SPRAY NASALLY TWICE A DAY 01/16/2019 01/10/2020 Active hydralazine 10 mg tablet RxNorm: 729306 1 Tablet(s) PO TID PRN 01/16/2019 01/15/2019 Inactive prn sbp over 150 cefdinir 300 mg capsule RxNorm: 923086 1 Capsule(s) PO BID 01/09/2019 01/15/2019 Inactive cefdinir 300 mg capsule RxNorm: 240238 1 Capsule(s) PO BID 01/09/2019 01/08/2019 Inactive Zithromax Z-Juan 250 mg tablet RxNorm: 714916 1 Tablet(s) PO UD 01/03/2019 01/07/2019 Inactive zpack as directed Kenalog 40 mg/mL suspension for injection RxNorm: 7061228 Milliliter(s) Inj 01/02/2019 01/02/2019 Inactive Zithromax Z-Juan 250 mg tablet RxNorm: 056804 1 Tablet(s) PO UD 12/30/2018 01/02/2019 Inactive zpack as directed metoprolol tartrate 50 mg tablet RxNorm: 851695 1/2 TABLET(S) PO BID 12/02/2018 No Stop Date Active amlodipine 10 mg tablet RxNorm: 704099 TAKE 1 TABLET DAILY 10/24/2018 No Stop Date Active cefdinir 300 mg capsule RxNorm: 554671 1 Capsule(s) PO BID 10/19/2018 10/22/2018 Inactive Zithromax Z-Juan 250 mg tablet RxNorm: 464698 1 Tablet(s) PO UD 10/19/2018 10/23/2018 Inactive zpack as directed glimepiride 4 mg tablet RxNorm: 873611 Tablet(s) 1 TABLET(S) PO DAILY 10/12/2018 No Stop Date Active cefdinir 300 mg capsule RxNorm: 378557 1 Capsule(s) PO BID 10/12/2018 10/18/2018 Inactive Zithromax Z-Juan 250 mg tablet RxNorm: 282355 1 Tablet(s) PO UD 10/12/2018 10/16/2018 Inactive zpack as directed Tessalon Perles 100 mg capsule RxNorm: 433411 2 Capsule(s) PO TID as needed cough 10/12/2018 10/16/2018 Inactive Kenalog 40 mg/mL suspension for injection RxNorm: 1306309 1 Milliliter(s) Inj 10/12/2018 10/12/2018 Inactive Zithromax Z-Juan 250 mg tablet RxNorm: 732288 1 Tablet(s) PO UD 08/22/2018 08/26/2018 Inactive zpack as directed clonidine HCl 0.1 mg tablet RxNorm: 537341 1 Tablet(s) PO QAM 08/16/2018 01/15/2019 Inactive losartan 100 mg tablet RxNorm: 666968 1 TABLET(S) PO DAILY FOR HIGH BLOOD PRESSURE 08/12/2018 No Stop Date Active alprazolam 0.5 mg tablet RxNorm: 083211 1 Tablet(s) PO TID as needed anxiety 06/30/2018 12/26/2018 Inactive fluticasone 50 mcg/actuation nasal spray,suspension RxNorm: 1805917 USE 1 SPRAY NASALLY TWICE A DAY 05/06/2018 01/15/2019 Inactive clonidine HCl 0.1 mg tablet RxNorm: 832321 1 Tablet(s) PO BID 04/14/2018 08/15/2018 Inactive clonidine HCl 0.1 mg tablet RxNorm: 522210 1 Tablet(s) PO TID 04/12/2018 04/13/2018 Inactive Zithromax Z-Juan 250 mg tablet RxNorm: 025676 1 Tablet(s) PO UD 01/20/2018 08/21/2018 Inactive disregard first rx for 1 - patient needs 3 packs-please dispense generic azithromycin Zithromax Z-Juan 250 mg tablet RxNorm: 234657 1 Tablet(s) PO UD 01/20/2018 01/19/2018 Inactive Zithromax Z-Juan 250 mg tablet RxNorm: 085444 1 Tablet(s) PO UD 01/20/2018 01/19/2018 Inactive disregard first rx for 1 - patient needs 3 packs Zithromax Z-Juan 250 mg tablet RxNorm: 603410 1 Tablet(s) PO UD 01/20/2018 01/19/2018 Inactive atorvastatin 10 mg tablet RxNorm: 516613 1 Tablet(s) PO QPM 12/30/2017 12/24/2018 Inactive atorvastatin 10 mg tablet RxNorm: 452698 1 Tablet(s) PO QPM 12/30/2017 12/29/2017 Inactive clonidine HCl 0.1 mg tablet RxNorm: 217941 1 Tablet(s) PO BID 12/29/2017 04/11/2018 Inactive Lipitor 10 mg tablet RxNorm: 506431 1 Tablet(s) PO QPM 12/29/2017 12/29/2017 Inactive OKAY TO DISPENSE GENERIC metoprolol tartrate 50 mg tablet RxNorm: 158816 1/2 Tablet(s) PO BID 12/29/2017 12/01/2018 Inactive alprazolam 0.5 mg tablet RxNorm: 785170 1 Tablet(s) PO TID as needed anxiety 11/18/2017 05/16/2018 Inactive glimepiride 4 mg tablet RxNorm: 997935 1 TABLET(S) PO DAILY 11/15/2017 10/11/2018 Inactive alprazolam 0.5 mg tablet RxNorm: 133784 1 Tablet(s) PO TID as needed anxiety 09/20/2017 11/17/2017 Inactive Zithromax Z-Juan 250 mg tablet RxNorm: 104124 1 Tablet(s) PO UD 09/20/2017 12/28/2017 Inactive Zithromax Z-Juan 250 mg tablet RxNorm: 874353 1 Tablet(s) PO UD 09/14/2017 09/19/2017 Inactive clonidine HCl 0.1 mg tablet RxNorm: 094314 1/2 Tablet(s) PO BID 08/24/2017 12/28/2017 Inactive amlodipine 10 mg tablet RxNorm: 476417 1 Tablet(s) PO daily 08/24/2017 08/18/2018 Inactive erythromycin 5 mg/gram (0.5 %) eye ointment RxNorm: 372919 1 Gram(s) ophthalmic (eye) QID left eye cyst 08/24/2017 09/06/2017 Inactive losartan 100 mg tablet RxNorm: 206834 1 Tablet(s) PO daily for high blood pressure 08/16/2017 08/10/2018 Inactive metoprolol tartrate 50 mg tablet RxNorm: 060293 1/2 Tablet(s) PO BID 07/26/2017 12/28/2017 Inactive clonidine HCl 0.1 mg tablet RxNorm: 232363 1/2 Tablet(s) PO BID 07/26/2017 08/23/2017 Inactive metoprolol tartrate 50 mg tablet RxNorm: 350832 1 Tablet(s) PO BID 07/21/2017 07/25/2017 Inactive amlodipine 10 mg tablet RxNorm: 944887 1 TABLET(S) PO DAILY 06/29/2017 08/23/2017 Inactive Lipitor 10 mg tablet RxNorm: 317890 1 Tablet(s) PO QPM 05/27/2017 12/28/2017 Inactive OKAY TO DISPENSE GENERIC alprazolam 0.5 mg tablet RxNorm: 187654 1 Tablet(s) PO TID as needed anxiety 05/18/2017 08/15/2017 Inactive hydrochlorothiazide 12.5 mg tablet RxNorm: 485601 1 Tablet(s) PO daily 04/22/2017 05/21/2017 Inactive hydrochlorothiazide 12.5 mg tablet RxNorm: 468113 1 Tablet(s) PO daily 04/22/2017 04/21/2017 Inactive Cipro 500 mg tablet RxNorm: 864769 1 Tablet(s) PO BID 04/16/2017 04/22/2017 Inactive Zofran 4 mg tablet RxNorm: 236693 1 Tablet(s) PO BID as needed nausea and vomitting 04/15/2017 04/19/2017 Inactive Lipitor 10 mg tablet RxNorm: 186841 1 Tablet(s) PO QPM 03/30/2017 05/26/2017 Inactive OKAY TO DISPENSE GENERIC Kenalog 40 mg/mL suspension for injection RxNorm: 1495819 1 Milliliter(s) Inj 03/16/2017 03/16/2017 Inactive doxazosin 4 mg tablet RxNorm: 989760 1.5 Tablet(s) PO BID 03/16/2017 05/02/2017 Inactive prednisone 10 mg tablets in a dose pack RxNorm: 032070 Tablet(s) take dose pack as directed PO take with food 03/16/2017 05/23/2017 Inactive Kenalog 40 mg/mL suspension for injection RxNorm: 5762145 Milliliter(s) Inj 03/12/2017 03/12/2017 Inactive Zithromax Z-Juan 250 mg tablet RxNorm: 167293 1 Tablet(s) PO daily 03/11/2017 03/10/2017 Inactive zpack as directed Zithromax Z-Juan 250 mg tablet RxNorm: 214248 1 Tablet(s) PO daily 03/11/2017 03/15/2017 Inactive zpack as directed doxazosin 4 mg tablet RxNorm: 346796 1.5 Tablet(s) PO BID 02/12/2017 03/15/2017 Inactive fluticasone 50 mcg/actuation nasal spray,suspension RxNorm: 0863458 1 SPRAY NASAL BID 02/05/2017 05/05/2018 Inactive metoprolol tartrate 75 mg tablet RxNorm: 0565326 1 Tablet(s) PO BID 01/29/2017 07/19/2017 Inactive metoprolol tartrate 75 mg tablet RxNorm: 9854960 1 Tablet(s) PO BID 01/29/2017 01/28/2017 Inactive doxazosin 4 mg tablet RxNorm: 155853 1 Tablet(s) PO BID 01/20/2017 02/11/2017 Inactive pantoprazole 40 mg tablet,delayed release RxNorm: 105124 1 Tablet(s) PO daily 12/24/2016 01/19/2017 Inactive pantoprazole 40 mg tablet,delayed release RxNorm: 449849 1 Tablet(s) PO daily 12/24/2016 12/23/2016 Inactive alprazolam 0.5 mg tablet RxNorm: 508926 1 Tablet(s) PO TID as needed anxiety 12/03/2016 04/01/2017 Inactive fluticasone 50 mcg/actuation nasal spray,suspension RxNorm: 8559555 1 Tornado NASAL BID 11/25/2016 12/24/2016 Inactive Dexilant 60 mg capsule, delayed release RxNorm: 764007 1 Capsule(s) PO daily 11/25/2016 11/24/2016 Inactive fluticasone 50 mcg/actuation nasal spray,suspension RxNorm: 8444972 1 Tornado NASAL BID 11/25/2016 11/24/2016 Inactive fluticasone 50 mcg/actuation nasal spray,suspension RxNorm: 8948469 1 Tornado NASAL BID 11/25/2016 11/24/2016 Inactive Dexilant 60 mg capsule, delayed release RxNorm: 963781 1 Capsule(s) PO daily 11/25/2016 12/23/2016 Inactive ProAir RespiClick 90 mcg/actuation breath activated RxNorm: 5209772 1 INH bid and QID as needed 11/19/2016 05/17/2017 Inactive Please send STAT Flonase Allergy Relief 50 mcg/actuation nasal spray,suspension RxNorm: 0004499 1 Tornado NASAL BID 11/19/2016 11/24/2016 Inactive glimepiride 4 mg tablet RxNorm: 530852 1 Tablet(s) PO daily 11/19/2016 11/13/2017 Inactive metoprolol tartrate 50 mg tablet RxNorm: 239213 1 Tablet(s) PO BID 11/19/2016 01/28/2017 Inactive Flonase Allergy Relief 50 mcg/actuation nasal spray,suspension RxNorm: 4736840 1 Tornado NASAL BID 11/17/2016 11/18/2016 Inactive metoprolol tartrate 50 mg tablet RxNorm: 610003 1 Tablet(s) PO BID 11/17/2016 11/18/2016 Inactive ProAir RespiClick 90 mcg/actuation breath activated RxNorm: 2011953 1 INH bid and QID as needed 11/17/2016 11/16/2016 Inactive glimepiride 4 mg tablet RxNorm: 370528 1 Tablet(s) PO daily 11/17/2016 11/18/2016 Inactive ProAir RespiClick 90 mcg/actuation breath activated RxNorm: 0200714 1 INH bid and QID as needed 11/17/2016 11/18/2016 Inactive Please send STAT Kenalog 40 mg/mL suspension for injection RxNorm: 7877770 1 Milliliter(s) Inj 11/05/2016 11/05/2016 Inactive azithromycin 250 mg tablet RxNorm: 205994 Tablet(s) PO 2 tabs on day #1, then daily x 4 days 11/05/2016 12/23/2016 Inactive doxazosin 4 mg tablet RxNorm: 601905 1 Tablet(s) PO QPM 10/02/2016 01/19/2017 Inactive doxazosin 4 mg tablet RxNorm: 539861 1 Tablet(s) PO QPM 09/29/2016 10/01/2016 Inactive doxazosin 4 mg tablet RxNorm: 815620 1 Tablet(s) PO QPM 09/21/2016 09/28/2016 Inactive Cipro 500 mg tablet RxNorm: 470112 1 Tablet(s) PO BID 09/18/2016 09/17/2016 Inactive Cipro 500 mg tablet RxNorm: 440174 1 Tablet(s) PO BID 09/18/2016 09/24/2016 Inactive losartan 100 mg tablet RxNorm: 071128 1 Tablet(s) PO daily for high blood pressure 09/16/2016 09/15/2016 Inactive alprazolam 0.5 mg tablet RxNorm: 986526 1 Tablet(s) PO TID as needed anxiety 09/16/2016 11/14/2016 Inactive losartan 100 mg tablet RxNorm: 224475 1 Tablet(s) PO daily for high blood pressure 09/16/2016 08/15/2017 Inactive amlodipine 10 mg tablet RxNorm: 598335 1 Tablet(s) PO daily 08/03/2016 06/28/2017 Inactive Zyrtec 10 mg tablet RxNorm: 0673075 1 Tablet(s) PO daily 08/03/2016 09/15/2016 Inactive losartan 25 mg tablet RxNorm: 384844 1 Tablet(s) PO daily 07/08/2016 09/15/2016 Inactive Lipitor 10 mg tablet RxNorm: 157637 1 Tablet(s) PO QPM 07/08/2016 07/17/2016 Inactive OKAY TO DISPENSE GENERIC Lipitor 10 mg tablet RxNorm: 849726 1 Tablet(s) PO QPM 07/06/2016 07/07/2016 Inactive OKAY TO DISPENSE GENERIC losartan 25 mg tablet RxNorm: 604977 1 Tablet(s) PO daily 07/06/2016 07/07/2016 Inactive meclizine 25 mg tablet RxNorm: 287352 1 Tablet(s) PO TID as needed No Start Date Active Parafon Forte DSC 500 mg tablet RxNorm: 047369 1 Tablet(s) PO QID No Start Date Active Pazeo 0.7 % eye drops RxNorm: 9355739 Drop(s) ophthalmic (eye) as needed dry eyes No Start Date Active Zithromax Z-Juan 250 mg tablet RxNorm: 830751 1 Tablet(s) PO UD No Start Date 09/13/2017 Inactive glimepiride 4 mg tablet RxNorm: 305109 1 Tablet(s) PO daily No Start Date 11/16/2016 Inactive metoprolol tartrate 100 mg tablet RxNorm: 181997 1 Tablet(s) PO BID No Start Date 07/21/2017 Inactive naproxen 500 mg tablet RxNorm: 031808 1 Tablet(s) PO BID No Start Date 03/23/2017 Inactive amlodipine 5 mg tablet RxNorm: 321967 1 Tablet(s) PO daily No Start Date 08/02/2016 Inactive metoprolol tartrate 50 mg tablet RxNorm: 871866 1 Tablet(s) PO BID No Start Date 11/16/2016 Inactive Medication Administered Medication Codes Instructions Start Date Status Kenalog 40 mg/mL suspension for injection RxNorm: 8597805 Milliliter 01/02/2019 No longer Active Kenalog 40 mg/mL suspension for injection RxNorm: 0732343 1Milliliter 10/12/2018 No longer Active Kenalog 40 mg/mL suspension for injection RxNorm: 7444305 1Milliliter 03/16/2017 No longer Active Kenalog 40 mg/mL suspension for injection RxNorm: 0546065 Milliliter 03/12/2017 No longer Active Kenalog 40 mg/mL suspension for injection RxNorm: 0229241 1Milliliter 11/05/2016 No longer Active Immunizations Vaccine [...] Lipid Ord30 C/HDL 3.1 Ratio 08/18/2018 Microalbumin Pki853 MicroAlb 7.5 mg/dL 08/18/2018 Cbc With Differential [...] 29.6 pg 08/18/2018 Cbc With Differential Ord2 Platte% 10.6 % 08/18/2018 Cbc With Differential Ord2 [...] 1.69 K/ul 08/18/2018 Cbc With Differential Ord2 [place] ABS# 0.6 K/ul 08/18/2018 Cbc With Differential Ord2 Eos ABS# 0.3 K/ul 08/18/2018 Cbc With Differential Ord2 Baso ABS# 0.0 K/ul 08/18/2018 Comp Metabolic Zsq253 NA 137 mEq/L 08/18/2018 Comp Metabolic Eyy656 K 3.8 mEq/L 08/18/2018 Comp Metabolic Lku916 CL 103 mEq/L 08/18/2018 Comp Metabolic Vzw516 CO2 26.0 mEq/L 08/18/2018 Comp Metabolic Apk054 ANION GAP 12 08/18/2018 Comp Metabolic Pee930 GLUCOSE 110 mg/dL 08/18/2018 Comp Metabolic Uix513 Creat 1.2 mg/dL 08/18/2018 Comp Metabolic Qfk169 eGFR 47 ml/min/1.73m2 08/18/2018 Comp Metabolic Pmu260 BUN 25 mg/dL 08/18/2018 Comp Metabolic Kfx063 B/C Ratio 21.0 Ratio 08/18/2018 Comp Metabolic Rru084 CALCIUM 9.4 mg/dL 08/18/2018 Comp Metabolic Pcd827 ALK PHOS 99 U/L 08/18/2018 Comp Metabolic Wgc730 AST(SGOT) 31 U/L 08/18/2018 Comp Metabolic Igo052 ALT(SGPT) 27 U/L 08/18/2018 Comp Metabolic Cce901 BILI T 0.7 mg/dL 08/18/2018 Comp Metabolic Mir513 ALBUMIN 4.2 g/dL 08/18/2018 Comp Metabolic Kkv958 TPRO 6.7 g/dL 08/18/2018 Comp Metabolic Gsy585 GLOB 2.5 g/dL 08/18/2018 Comp Metabolic Wyb169 A/G Ratio 1.7 Ratio 08/18/2018 Comp Metabolic Nsj396 Osmo 279 mOsmo 08/18/2018 %Hba1C Zbk018 % HbA1c 47165- 6 6.1 % 08/18/2018 %Hba1C Tkg650 Gluc Ave 128 mg/dL 08/18/2018 Tsh Ord6 TSH (3rd IS) 3.93 uIU/mL 08/18/2018 Lipid Ord30 CHOL 146 mg/dL 04/15/2018 Lipid Ord30 HDL 62.0 mg/dl 04/15/2018 Lipid Ord30 TRIG 88 mg/dL 04/15/2018 Lipid Ord30 LDL 66 mg/dL 04/15/2018 Lipid Ord30 C/HDL 2.4 Ratio 04/15/2018 %Hba1C Tzf376 % HbA1c 21581- 6 6.3 % 04/15/2018 %Hba1C Jgc767 Gluc Ave 134 mg/dL 04/15/2018 Cbc With [...] 30.2 pg 04/15/2018 Cbc With Differential Ord2 [place]% 6.8 % 04/15/2018 Cbc With Differential Ord2 [...] 2.10 K/ul 04/15/2018 Cbc With Differential Ord2 [place] ABS# 0.5 K/ul 04/15/2018 Cbc With Differential Ord2 Eos ABS# 0.2 K/ul 04/15/2018 Cbc With Differential Ord2 Baso ABS# 0.0 K/ul 04/15/2018 Comp Metabolic Vxk965 NA 140 mEq/L 04/15/2018 Comp Metabolic Vzl496 K 4.3 mEq/L 04/15/2018 Comp Metabolic Csx660 CL 106 mEq/L 04/15/2018 Comp Metabolic Feo382 CO2 23.0 mEq/L 04/15/2018 Comp Metabolic Gia033 ANION GAP 15 04/15/2018 Comp Metabolic Uux302 GLUCOSE 90 mg/dL 04/15/2018 Comp Metabolic Nfe693 Creat 1.2 mg/dL 04/15/2018 Comp Metabolic Kgs633 eGFR 45 ml/min/1.73m2 04/15/2018 Comp Metabolic Gfn184 BUN 28 mg/dL 04/15/2018 Comp Metabolic Flk684 B/C Ratio 22.8 Ratio 04/15/2018 Comp Metabolic Usq744 CALCIUM 9.5 mg/dL 04/15/2018 Comp Metabolic Xuv971 ALK PHOS 95 U/L 04/15/2018 Comp Metabolic Clq085 AST(SGOT) 20 U/L 04/15/2018 Comp Metabolic Evo976 ALT(SGPT) 13 U/L 04/15/2018 Comp Metabolic Krf350 BILI T 0.5 mg/dL 04/15/2018 Comp Metabolic Emz199 ALBUMIN 4.1 g/dL 04/15/2018 Comp Metabolic Ano376 TPRO 6.6 g/dL 04/15/2018 Comp Metabolic Bwq908 GLOB 2.5 g/dL 04/15/2018 Comp Metabolic Fud550 A/G Ratio 1.6 Ratio 04/15/2018 Comp Metabolic Uoe888 Osmo 284 mOsmo 04/15/2018 Comp Metabolic Kcp001 NA 137 mEq/L 02/04/2018 Comp Metabolic Npt121 K 4.0 mEq/L 02/04/2018 Comp Metabolic Zrw235 CL 104 mEq/L 02/04/2018 Comp Metabolic Aty211 CO2 27.0 mEq/L 02/04/2018 Comp Metabolic Pxt328 ANION GAP 10 02/04/2018 Comp Metabolic Dxn425 GLUCOSE 212 mg/dL 02/04/2018 Comp Metabolic Pnl956 Creat 1.2 mg/dL 02/04/2018 Comp Metabolic Bte573 eGFR 47 ml/min/1.73m2 02/04/2018 Comp Metabolic Lnf891 BUN 20 mg/dL 02/04/2018 Comp Metabolic Uii132 B/C Ratio 16.8 Ratio 02/04/2018 Comp Metabolic Ycn244 CALCIUM 8.9 mg/dL 02/04/2018 Comp Metabolic Uzq377 ALK PHOS 107 U/L 02/04/2018 Comp Metabolic Nsj344 AST(SGOT) 17 U/L 02/04/2018 Comp Metabolic Fer105 ALT(SGPT) 11 U/L 02/04/2018 Comp Metabolic Nfn605 BILI T 0.4 mg/dL 02/04/2018 Comp Metabolic Vva739 ALBUMIN 3.8 g/dL 02/04/2018 Comp Metabolic Efr751 TPRO 6.2 g/dL 02/04/2018 Comp Metabolic Htn992 GLOB 2.4 g/dL 02/04/2018 Comp Metabolic Nje394 A/G Ratio 1.6 Ratio 02/04/2018 Comp Metabolic Hos748 Osmo 283 mOsmo 02/04/2018 %Hba1C Oyr555 % HbA1c 33065- 6 6.3 % 12/30/2017 %Hba1C Oec260 Gluc Ave 134 mg/dL 12/30/2017 Comp Metabolic Qdd407 NA 142 mEq/L 12/30/2017 Comp Metabolic Vka864 K 4.4 mEq/L 12/30/2017 Comp Metabolic Afl285 CL 103 mEq/L 12/30/2017 Comp Metabolic Sjo263 CO2 31.0 mEq/L 12/30/2017 Comp Metabolic Cji174 ANION GAP 12 12/30/2017 Comp Metabolic Ejc244 GLUCOSE 119 mg/dL 12/30/2017 Comp Metabolic Qaf554 Creat 1.4 mg/dL 12/30/2017 Comp Metabolic Buv693 eGFR 41 ml/min/1.73m2 12/30/2017 Comp Metabolic Bxd965 BUN 27 mg/dL 12/30/2017 Comp Metabolic Wea973 B/C Ratio 20.0 Ratio 12/30/2017 Comp Metabolic Tuw888 CALCIUM 9.9 mg/dL 12/30/2017 Comp Metabolic Fki208 ALK PHOS 106 U/L 12/30/2017 Comp Metabolic Emb550 AST(SGOT) 20 U/L 12/30/2017 Comp Metabolic Uml672 ALT(SGPT) 13 U/L 12/30/2017 Comp Metabolic Sqr838 BILI T 0.7 mg/dL 12/30/2017 Comp Metabolic Zdc820 ALBUMIN 4.2 g/dL 12/30/2017 Comp Metabolic Yiu845 TPRO 6.7 g/dL 12/30/2017 Comp Metabolic Ply879 GLOB 2.6 g/dL 12/30/2017 Comp Metabolic Wwy532 A/G Ratio 1.6 Ratio 12/30/2017 Comp Metabolic Skj427 Osmo 289 mOsmo 12/30/2017 Lipid Ord30 CHOL 167 mg/dL 12/30/2017 Lipid Ord30 HDL 63.0 mg/dl 12/30/2017 Lipid Ord30 TRIG 89 mg/dL 12/30/2017 Lipid Ord30 LDL 86 mg/dL 12/30/2017 Lipid Ord30 C/HDL 2.7 Ratio 12/30/2017 Urine Culture Ucult Preliminary NO Growth Day 1 04/17/2017 Urine Culture Ucult Complete NO Growth Day 2 04/17/2017 Comp Metabolic Ukf373 NA 143 mEq/L 04/15/2017 Comp Metabolic Lxd701 K 4.6 mEq/L 04/15/2017 Comp Metabolic Jdb229 CL 110 mEq/L 04/15/2017 Comp Metabolic Kui710 CO2 30.0 mEq/L 04/15/2017 Comp Metabolic Ess823 ANION GAP 8 04/15/2017 Comp Metabolic Jts173 GLUCOSE 159 mg/dL 04/15/2017 Comp Metabolic Tkc486 Creat 1.1 mg/dL 04/15/2017 Comp Metabolic Rrj370 eGFR 54 ml/min/1.73m2 04/15/2017 Comp Metabolic Gbg258 BUN 27 mg/dL 04/15/2017 Comp Metabolic Vui010 B/C Ratio 25.7 Ratio 04/15/2017 Comp Metabolic Qio399 CALCIUM 9.4 mg/dL 04/15/2017 Comp Metabolic Rcn042 ALK PHOS 93 U/L 04/15/2017 Comp Metabolic Egt869 AST(SGOT) 19 U/L 04/15/2017 Comp Metabolic Bqm543 ALT(SGPT) 18 U/L 04/15/2017 Comp Metabolic Qdu005 BILI T 0.6 mg/dL 04/15/2017 Comp Metabolic Eve767 ALBUMIN 3.9 g/dL 04/15/2017 Comp Metabolic Ekx779 TPRO 6.5 g/dL 04/15/2017 Comp Metabolic Kgz279 GLOB 2.6 g/dL 04/15/2017 Comp Metabolic Rfd049 A/G Ratio 1.5 Ratio 04/15/2017 Comp Metabolic Cwg750 Osmo 293 mOsmo 04/15/2017 Tsh Ord6 hTSH II 2.05 uIU/mL 04/15/2017 %Hba1C Plz751 % HbA1c 15157- 6 6.3 % 04/15/2017 %Hba1C Uch656 Gluc Ave 134 mg/dL 04/15/2017 Cbc With [...] 29.0 pg 04/15/2017 Cbc With Differential Ord2 [place]% 6.9 % 04/15/2017 Cbc With Differential Ord2 [...] 1.58 K/ul 04/15/2017 Cbc With Differential Ord2 [place] ABS# 0.5 K/ul 04/15/2017 Cbc With Differential [...] Ord28 U-Com Culture to follow 04/15/2017 %Hba1C Mzv581 % HbA1c 53158- 6 5.8 % 01/07/2017 %Hba1C Yee596 Gluc Ave 120 mg/dL 01/07/2017 Urine Culture Ucult Preliminary NO Growth Day 1 09/21/2016 Urine Culture Ucult Complete NO Growth Day 2 09/21/2016 %Hba1C Iqc017 % HbA1c 05755- 6 6.0 % 09/17/2016 %Hba1C Sfx376 Gluc Ave 126 mg/dL 09/17/2016 Comp Metabolic Iyg721 NA 140 mEq/L 09/17/2016 Comp Metabolic Qxt336 K 4.1 mEq/L 09/17/2016 Comp Metabolic Pwx730 CL 105 mEq/L 09/17/2016 Comp Metabolic Rai427 CO2 29.0 mEq/L 09/17/2016 Comp Metabolic Mdf714 ANION GAP 10 09/17/2016 Comp Metabolic Dap081 GLUCOSE 89 mg/dL 09/17/2016 Comp Metabolic Soe705 Creat 0.9 mg/dL 09/17/2016 Comp Metabolic Jmz216 eGFR 65 ml/min/1.73m2 09/17/2016 Comp Metabolic Mzl604 BUN 20 mg/dL 09/17/2016 Comp Metabolic Oqf456 B/C Ratio 22.2 Ratio 09/17/2016 Comp Metabolic Cwb134 CALCIUM 9.3 mg/dL 09/17/2016 Comp Metabolic Gis047 ALK PHOS 107 U/L 09/17/2016 Comp Metabolic Qzl456 AST(SGOT) 22 U/L 09/17/2016 Comp Metabolic Yeo122 ALT(SGPT) 15 U/L 09/17/2016 Comp Metabolic Fxw153 BILI T 0.7 mg/dL 09/17/2016 Comp Metabolic Wfq259 ALBUMIN 4.0 g/dL 09/17/2016 Comp Metabolic Ork890 TPRO 6.8 g/dL 09/17/2016 Comp Metabolic Shz738 GLOB 2.8 g/dL 09/17/2016 Comp Metabolic Kve076 A/G Ratio 1.4 Ratio 09/17/2016 Comp Metabolic Stf277 Osmo 281 mOsmo 09/17/2016 Microalbumin Erw538 MicroAlb 44.3 mg/dL 09/17/2016 Tsh Ord6 hTSH [...] 29.0 pg 09/17/2016 Cbc With Differential Ord2 [place]% 8.1 % 09/17/2016 Cbc With Differential Ord2 [...] 1.78 K/ul 09/17/2016 Cbc With Differential Ord2 [place] ABS# 0.6 K/ul 09/17/2016 Cbc With Differential [...] Procedure Codes Date THER/PROPH/DIAG INJ SC/IM CPT-4: 83252 01/02/2019 TRIAMCINOLONE ACET INJ NOS CPT-4: J3301 01/02/2019 TRIAMCINOLONE ACET INJ NOS CPT-4: J3301 10/12/2018 THER/PROPH/DIAG INJ SC/IM CPT-4: 03801 10/12/2018 PPPS, SUBSEQ VISIT CPT- 4: G0439 09/06/2018 URINALYSIS NONAUTO W/O SCOPE CPT-4: 72759 12/29/2017 PPPS, SUBSEQ VISIT CPT- 4: G0439 03/30/2017 THER/PROPH/DIAG INJ SC/IM CPT-4: 62372 03/16/2017 TRIAMCINOLONE ACET INJ NOS CPT-4: J3301 03/16/2017 THER/PROPH/DIAG INJ SC/IM CPT-4: 99647 03/12/2017 TRIAMCINOLONE ACET INJ NOS CPT-4: J3301 03/12/2017 THER/PROPH/DIAG INJ SC/IM CPT-4: 13218 11/05/2016 TRIAMCINOLONE ACET INJ NOS CPT-4: J3301 11/05/2016 URINALYSIS NONAUTO W/O SCOPE CPT-4: 04128 09/18/2016 Vital Signs Date Vital 01/16/2019 Blood Pressure 1: 156/70 Code: 8480-6 BMI: 30.1 Code: 57016-5 Heart Rate 1: 50 bpm Height: 5'7" SpO2: 98% Weight: 192 lbs 10/12/2018 Blood Pressure 1: 142/76 Code: 8480-6 BMI: 30.1 Code: 30924-0 Heart Rate 1: 83 bpm Height: 5'7" SpO2: 98% Weight: 192 lbs 09/06/2018 Blood Pressure 1: 142/66 Code: 8480-6 BMI: 30.9 Code: 29535-6 Heart Rate 1: 64 bpm Height: 5'7" SpO2: 98% Waist Measure (cm): 99 cm Weight: 197 lbs 08/16/2018 Blood Pressure 1: 140/70 Code: 8480-6 BMI: 34.4 Code: 67328-6 Heart Rate 1: 63 bpm Height: 5'7" SpO2: 95% Weight: 219 lbs 14 oz 04/12/2018 Blood Pressure 1: 160/70 Code: 8480-6 BMI: 33.0 Code: 19600-9 Heart Rate 1: 82 bpm Height: 5'7" SpO2: 95% Weight: 211 lbs 01/20/2018 Blood Pressure 1: 152/66 Code: 8480-6 BMI: 31.8 Code: 63162-9 Heart Rate 1: 52 bpm Height: 5'7" SpO2: 98% Temperature: 36.3 (C) / 97.3 (F) Weight: 203 lbs 12/29/2017 Blood Pressure 1: 168/72 Code: 8480-6 BMI: 32.1 Code: 17057-0 Heart Rate 1: 63 bpm Height: 5'7" SpO2: 98% Weight: 205 lbs 08/24/2017 Blood Pressure 1: 186/70 Code: 8480-6 Blood Pressure 1: 150/70 Code: 8480-6 BMI: 31.8 Code: 33248-2 Heart Rate 1: 53 bpm Height: 5'7" SpO2: 98% Weight: 203 lbs 07/26/2017 Blood Pressure 1: 206/78 Code: 8480-6 Blood Pressure 2: 210/84 Code: 8480-6 BMI: 32.0 Code: 65576-0 Heart Rate 1: 49 bpm Height: 5'7" SpO2: 97% Weight: 204 lbs 07/20/2017 Blood Pressure 1: 148/82 Code: 8480-6 Heart Rate 1: 90 bpm SpO2: 98% 05/27/2017 Blood Pressure 1: 142/72 Code: 8480-6 BMI: 30.5 Code: 40131-3 Heart Rate 1: 97 bpm Height: 5'7" [...] 1: 148/70 Code: 8480-6 BMI: 30.4 Code: 59694-8 Heart Rate 1: 54 bpm Height: 5'7" SpO2: 97% Weight: 194 lbs 03/30/2017 BMI: 33.2 Code: 11671-8 Height: 5'7" Weight: 212 lbs 03/16/2017 Blood Pressure 1: 140/80 Code: 8480-6 BMI: 34.0 Code: 79999-1 Heart Rate 1: 70 bpm Height: 5'7" SpO2: 95% Weight: 217 lbs 03/12/2017 Blood Pressure 1: 142/80 Code: 8480-6 BMI: 34.0 Code: 51787-9 Heart Rate 1: 76 bpm Height: 5'7" SpO2: 92% Weight: 217 lbs 02/17/2017 Blood Pressure 1: 162/64 Code: 8480-6 BMI: 32.9 Code: 46625-8 Heart Rate 1: 59 bpm Height: 5'7" SpO2: 97% Weight: 210 lbs 01/20/2017 Blood Pressure 1: 162/74 Code: 8480-6 BMI: 32.9 Code: 93982-9 Heart Rate 1: 56 bpm Height: 5'7" SpO2: 98% Weight: 210 lbs 11/17/2016 Blood Pressure 1: 156/60 Code: 8480-6 BMI: 34.8 Code: 96928-5 Heart Rate 1: 63 bpm Height: 5'7" SpO2: 96% Weight: 222 lbs 11/05/2016 Blood Pressure 1: 160/68 Code: 8480-6 BMI: 34.5 Code: 79101-2 Heart Rate 1: 66 bpm Height: 5'7" SpO2: 97% Temperature: 36.9 (C) / 98.5 (F) Weight: 220 lbs 09/21/2016 Blood Pressure 1: 180/72 Code: 8480-6 Blood Pressure 1: 166/72 Code: 8480-6 BMI: 32.1 Code: 53847-9 Heart Rate 1: 57 bpm Height: 5'7" SpO2: 98% Weight: 205 lbs 09/16/2016 Blood Pressure 1: 168/70 Code: 8480-6 Heart Rate 1: 49 bpm SpO2: 95% 08/03/2016 Blood Pressure 1: 162/70 Code: 8480-6 BMI: 32.0 Code: 93416-4 Heart Rate 1: 43 bpm Height: 5'7" SpO2: 98% Weight: 204 lbs 07/06/2016 Blood Pressure 1: 170/86 Code: 8480-6 BMI: 32.0 Code: 25789-0 Heart Rate 1: 48 bpm Height: 5'7" [...] data Encounters Encounter Performer Location Codes Date ([id number]) [id number] EST. PATIENT, LEVEL III Diagnosis: Essential (primary) hypertension[ICD10: I10] Diagnosis: Other allergic rhinitis[ICD10: J30.89] Yuridia Camejo MD, [facility] CPT-4: 43861 01/16/2019 [id number] EST. PATIENT, LEVEL IV Diagnosis: Other acute sinusitis[ICD10: J01.80] Diagnosis: Other allergic rhinitis[ICD10: J30.89] Krysta Camejo MD, [facility] CPT- 4: 16736 10/12/2018 [id number]) 60764 EST. PATIENT, LEVEL IV Diagnosis: Essential (primary) hypertension[ICD10: I10] Diagnosis: Type 2 diabetes mellitus without complications[ICD10: E11.9] Diagnosis: Mixed hyperlipidemia[ICD10: E78.2] Fifi Camejo MD, [facility] CPT- 4: 75831 08/16/2018 [id number]) 93508 EST. PATIENT, LEVEL IV Diagnosis: Type 2 diabetes mellitus without complications[ICD10: E11.9] Diagnosis: Mixed hyperlipidemia[ICD10: E78.2] Diagnosis: Essential (primary) hypertension[ICD10: I10] Diagnosis: Dysuria[ICD10: R30.0] Diagnosis: Pain in left foot[ICD10: M79.672] Fifi Camejo MD, [facility] CPT- 4: 82938 04/12/2018 [id number]) 18072 EST. PATIENT, LEVEL III Diagnosis: Otalgia, bilateral[ICD10: H92.03] Diagnosis: Other allergic rhinitis[ICD10: J30.89] Yuridia Camejo MD, [facility] CPT-4: 89983 01/20/2018 [id number]) 04953 EST. PATIENT, LEVEL IV Diagnosis: Type 2 diabetes mellitus without complications[ICD10: E11.9] Diagnosis: Mixed hyperlipidemia[ICD10: E78.2] Diagnosis: Essential (primary) hypertension[ICD10: I10] Diagnosis: Dysuria[ICD10: R30.0] Fifi Camejo MD, [facility] CPT-4: 07162 12/29/2017 ([id number]) 35121 EST. PATIENT, LEVEL IV Diagnosis: Essential (primary) hypertension[ICD10: I10] Diagnosis: Cysts of left upper eyelid[ICD10: H02.824] Diagnosis: Pain in left foot[ICD10: M79.672] Fifi Camejo MD, [facility] CPT- 4: 47112 08/24/2017 ([id number]) 21097 EST. PATIENT, LEVEL III Diagnosis: Essential (primary) hypertension[ICD10: I10] Fifi Camejo MD, [facility] CPT-4: 59904 07/26/2017 ([id number]) Miscellaneous no charge Diagnosis: Essential (primary) hypertension[ICD10: I10] Fifi Camejo MD, [facility] CPT-4: 17495 07/20/2017 49650 EST. PATIENT, LEVEL III Diagnosis: Otalgia, bilateral[ICD10: H92.03] Diagnosis: Dizziness and giddiness[ICD10: R42] Diagnosis: Mixed hyperlipidemia[ICD10: E78.2] Krysta Camejo MD, [facility] CPT-4: 07320 05/27/2017 ([id number]) Miscellaneous no charge Diagnosis: Essential (primary) hypertension[ICD10: I10] Krysta Camejo MD, [facility] CPT-4: 32008 05/07/2017 ([id number]) 89119 EST. PATIENT, LEVEL IV Diagnosis: Otalgia, bilateral[ICD10: H92.03] Diagnosis: Dizziness and giddiness[ICD10: R42] Diagnosis: Orthostatic hypotension[ICD10: I95.1] Fifi Camejo MD, [facility] CPT-4: 98591 05/03/2017 83975 EST. PATIENT, LEVEL IV Diagnosis: Essential (primary) hypertension[ICD10: I10] Diagnosis: Type 2 diabetes mellitus without complications[ICD10: E11.9] Diagnosis: Gastro-esophageal reflux disease without esophagitis[ICD10: K21.9] Diagnosis: Dizziness and giddiness[ICD10: R42] Diagnosis: Dysuria[ICD10: R30.0] Diagnosis: Other malaise[ICD10: R53.81] Krysta Camejo MD [facility] CPT-4: 67790 04/15/2017 ([id number]) 90899 EST. PATIENT, LEVEL IV Diagnosis: Type 2 diabetes mellitus without complications[ICD10: E11.9] Diagnosis: Otalgia, bilateral[ICD10: H92.03] Diagnosis: Essential (primary) hypertension[ICD10: I10] Diagnosis: Other allergic rhinitis[ICD10: J30.89] Fifi Camejo MD [facility] CPT-4: 16637 03/16/2017 38888 EST. PATIENT, LEVEL IV Diagnosis: Other acute sinusitis[ICD10: J01.80] Diagnosis: Acute suppurative otitis media without spontaneous rupture of ear drum, bilateral[ICD10: H66.003] Diagnosis: Other allergic rhinitis[ICD10: J30.89] Krysta Camejo MD [facility] CPT- 4: 34933 03/12/2017 ([id number]) 06441 EST. PATIENT, LEVEL IV Diagnosis: Essential (primary) hypertension[ICD10: I10] Diagnosis: Type 2 diabetes mellitus without complications[ICD10: E11.9] Fifi Camejo MD [facility] CPT-4: 78573 02/17/2017 ([id number]) 02697 EST. PATIENT, LEVEL IV Diagnosis: Essential (primary) hypertension[ICD10: I10] Diagnosis: Type 2 diabetes mellitus without complications[ICD10: E11.9] Fifi Camejo MD [facility] CPT-4: 79477 01/20/2017 ([id number]) 04041 EST. PATIENT, LEVEL IV Diagnosis: Essential (primary) hypertension[ICD10: I10] Diagnosis: Type 2 diabetes mellitus without complications[ICD10: E11.9] Diagnosis: Gastro-esophageal reflux disease without esophagitis[ICD10: K21.9] Fifi Camejo MD [facility] CPT-4: 53943 11/17/2016 ([id number]) 55299 EST. PATIENT, LEVEL III Diagnosis: Acute bronchitis due to other specified organisms[ICD10: J20.8] Diagnosis: Cough[ICD10: R05] Fifi Camejo MD, [facility] CPT-4: 53297 11/05/2016 ([id number]) 69354 EST. PATIENT, LEVEL IV Diagnosis: Essential (primary) hypertension[ICD10: I10] Diagnosis: Type 2 diabetes mellitus without complications[ICD10: E11.9] Fifi Camejo MD, [facility] CPT-4: 96212 09/21/2016 ([id number]) Miscellaneous no charge Diagnosis: Essential (primary) hypertension[ICD10: I10] [facility] Redmond MD CPT-4: 49047 09/16/2016 ([id number]) 22614 EST. PATIENT, LEVEL III Diagnosis: Type 2 diabetes mellitus without complications[ICD10: E11.9] Diagnosis: Essential (primary) hypertension[ICD10: I10] [facility] Redmond MD CPT-4: 20416 08/03/2016 ([id number]) OFFICE VISIT, NEW - LEVEL 4 Diagnosis: Essential (primary) hypertension[ICD10: I10] Diagnosis: Type 2 diabetes mellitus without complications[ICD10: E11.9] Diagnosis: Carpal tunnel syndrome, left upper limb[ICD10: G56.02] Diagnosis: Right upper quadrant pain[ICD10: R10.11] Diagnosis: Mixed hyperlipidemia[ICD10: E78.2] Fifi Camejo MD, [facility] CPT- 4: 44694 07/06/2016 Plan of Care Planned Activity Notes [...] 10/12/2018 [phone] [facility] ([facility] Complex 10/12/2018 Patient Education: [...] 09/06/2018 Appointment: [facility] [phone] [facility] [place] [address] - Annual Wellness Visit 09/06/2018 Patient Education: Patient Medication Summary Completed 09/06/2018 Appointment: [facility] [phone] [phone] [facility] - Annual Wellness Visit 08/29/2018 Visit [...] dications. 08/16/2018 App[facility]ment[phone] [facility] ([facility] min) Moderate 08/16/2018 Patient Education: [...] foot. 04/12/2018 Appointment: [phone] [facility] (15 min) Moderate 04/12/2018 Patient Education: Patient Medication Summary Completed 04/12/2018 Care Plan: Referral Order SNOMED-CT : 855346141 Pending 04/12/2018 Patient Education: Patient Medication Summary [...] 01/20/2018 Appointment: [facility] [phone] [facility] (15 min) Moderate 01/20/2018 Patient Education: [...] starting to become less controlled. 12/29/2017 Appointment: F[facility]ii [facility] [phone] [facility] (15 min) Moderate 12/29/2017 Patient Education: [...] - recommended referral to Dr. Anders in [place] 08/24/2017 Appointment: Fifi [facility] [phone] [facility] (15 min) Moderate 08/24/2017 Patient Education: Patient Medication Summary Completed 08/24/2017 Care Plan: Referral Order SNOMED-CT : [id number] Pending 08/24/2017 Visit Plan: Hypertension - uncontrolled [...] listed above. 07/26/2017 Appointment: Fifi Camejo WPtel: [facility] [place] (15 min) Moderate 07/26/2017 Patient [...] 05/27/2017 Appointment: [facility] Dale [facility] [phone] [facility] (15 min) Moderate 05/27/2017 Patient Education: Patient Medication Summary Completed 05/27/2017 Appointment: Nurse Visit 05/07/2017 Patient Education: Patient Medication Summary Completed 05/07/2017 Visit Plan: Persistent vergito with bilateral air-fluid levels and ear pain. Pt was seen by Dr. Calvo- she did not like his response to her complaints. I have recommended a referral to ENT in [place] or [place]. I suspect she may need myringotomy tubes. Pt to continue with flonase. Orthostatic hypotension - dc doxazosin. Monitor blood pressures at home. stop the doxazosin meclizine change to 1/2 pill three times a day come back on Wednesday for blood pressure check 05/03/2017 Appointment: Fifi [facility] [phone] [facility] [place] (15 min) Moderate 05/03/2017 Patient Education: Patient Medication Summary Completed 05/03/2017 Appointment: [facility] [phone] [facility] (15 min) Moderate 04/21/2017 Visit Plan: [...] 04/15/2017 Appointment: Krysta Dale WPtel: [phone] [facility] (30 min) Complex 04/15/2017 Patient Education: Patient [...] 03/30/2017 Appointment: [facility] Dale [facility] [phone] [facility] [facility] - Annual Wellness Visit 03/30/2017 Patient [...] home. 03/16/2017 Appointment: Fifi Camejo WPtel: [phone] [facility] (30 min) Complex 03/16/2017 Patient Education: Patient Medication Summary Completed 03/16/2017 Patient Education: Obesity Completed 03/16/2017 Care Plan: Referral Order SNOMED-CT : [id number] Pending 03/16/2017 Visit Plan: Allergies - chronic [...] 03/12/2017 Appointment: [facility] Dale [facility] [phone] [facility] (15 min) Moderate 03/12/2017 Patient Education: [...] controlled. 02/17/2017 Appointment: [facility] [phone] [facility] (30 min) Complex 02/17/2017 Patient Education: [...] controlled. 01/20/2017 Appointment: [facility] [phone] [facility] (30 min) Complex 01/20/2017 Patient Education: [...] dexilant 11/17/2016 Appointment: Fifi Camejo WPtel: [phone] [facility] (30 min) Complex 11/17/2016 Patient Education: [...] range. 09/21/2016 Appointment: Fifi Camejo WPtel: [phone] [facility] (15 min) Moderate 09/21/2016 Patient Education: [...] this time. 08/03/2016 Appointment: Fifi Camejo WPtel: [facility] (15 min) Moderate 08/03/2016 Patient Education: [...] improving. 07/06/2016 Appointment: Fifi Camejo WPtel: [phone] [facility] New Patient 07/06/2016 Patient Education: Patient Medication Summary Completed 07/06/2016 Patient Education: Obesity Completed 07/06/2016 Referral: Dr Calvo Referral Completed Referral: Fereman Huff Referral Appointment Requested Referral: External, Ordering [...] [facility] Hypertension - well [...] monitor your heart rate Consider referral for brush holder assembler for possible stress test if needed. Call [...] monitor your heart rate Consider referral for brush holder assembler for possible stress test if needed. Call [...] have recommended a referral to ENT in [place] or [place]. I suspect she may need myringotomy tubes. [...] - recommended referral to Dr. Anders in [place]
--- OUTSIDE RECORDS SUMMARY | 2019-03-08 16:25 | XMS REPORT | CCD ---
Author Author Fifi Camejo MD, [facility] Address [address] [place] [address] Phone Care Team Providers Care Photo Lab Specialist Name Role Phone PP Unavailable CCM Unavailable Summary Purpose Interface Exchange Insurance Providers Payer name Policy type / Coverage type Covered green party ID Effective Begin Date Effective End Date WPS Medicare Part B Medicare Part B [id number] 2018 Unknown FOR LIFE WPS Medicare Part B [id number] Unknown Family history Father Diagnosis Age At Onset Cancer Unknown Brother Diagnosis Age At Onset Diabetes mellitus Type 2 Unknown Heart Attack Unknown Social History Social History Element Codes Description Effective Dates Marital status Unknown Wu 11/05/2016 Number of children Unknown 1 07/06/2016 Employment Unknown Retired 07/06/[address]: 545725479 Never smoker 07/06/[address]: 920381520 Never drinks alcohol 07/06/2016 Allergies, Adverse Reactions, Alerts Substance Reaction Codes Entered Date Inactivated Date Status Protonix hives RxNorm: 890194 09/06/2018 No Inactive Date Active IV DYE, IODINE CONTAINING emesis, emesis Unknown 04/28/2018 No Inactive Date Active MORPHINE AND RELATED Unknown 04/28/2018 No Inactive Date Active Penicillin Unknown 07/06/2016 No Inactive Date Active Past Medical History Illness Codes Condition Status Onset Date Resolved Date Essential (primary) hypertension ICD-9: 401.1 ICD-10: I10 Active 09/20/2016 Unknown Cough ICD-9: 786.2 ICD-10: R05 Active 11/05/2016 Unknown Dysuria ICD-9: 788.1 ICD-10: R30.0 Active 09/17/2016 Unknown Other acute sinusitis ICD- 9: 461.8 ICD-10: J01.80 Active 03/12/2017 Unknown Other allergic rhinitis ICD-9: 477.8 ICD-10: J30.89 Active 03/12/2017 Unknown Encounter for general adult [...] hypertension ICD-9: 401.1 ICD-10: I10 09/20/2016 Active Cough ICD-9: 786.2 ICD-10: R05 11/05/2016 Active Dysuria ICD-9: 788.1 ICD-10: R30.0 09/17/2016 Active Other acute sinusitis ICD- 9: 461.8 ICD-10: J01.80 03/12/2017 Active Other allergic rhinitis ICD-9: 477.8 ICD-10: J30.89 03/12/2017 Active Encounter for general adult medical [...] Fill Instructions atorvastatin 10 mg tablet RxNorm: 217006 1 Tablet(s) PO QPM 01/16/2019 01/10/2020 Active alprazolam 0.5 mg tablet RxNorm: 026147 1 Tablet(s) PO TID as needed anxiety 01/16/2019 07/14/2019 Active clonidine HCl 0.1 mg tablet RxNorm: 538361 1/2 Tablet(s) PO QHS 01/16/2019 01/16/2019 Inactive fluticasone propionate 50 mcg/actuation nasal spray,suspension RxNorm: 5831531 2 [employer] daily USE 1 SPRAY NASALLY TWICE A DAY 01/16/2019 01/10/2020 Active cefdinir 300 mg capsule RxNorm: 688830 1 Capsule(s) PO BID 01/09/2019 01/15/2019 Inactive cefdinir 300 mg capsule RxNorm: 652801 1 Capsule(s) PO BID 01/09/2019 01/08/2019 Inactive Zithromax Z-Juan 250 mg tablet RxNorm: 562005 1 Tablet(s) PO UD 01/03/2019 01/07/2019 Inactive zpack as directed Kenalog 40 mg/mL suspension for injection RxNorm: 0075302 Milliliter(s) Inj 01/02/2019 01/02/2019 Inactive Zithromax Z-Juan 250 mg tablet RxNorm: 482467 1 Tablet(s) PO UD 12/30/2018 01/02/2019 Inactive zpack as directed metoprolol tartrate 50 mg tablet RxNorm: 601298 1/2 TABLET(S) PO BID 12/02/2018 No Stop Date Active amlodipine 10 mg tablet RxNorm: 286646 TAKE 1 TABLET DAILY 10/24/2018 No Stop Date Active cefdinir 300 mg capsule RxNorm: 885086 1 Capsule(s) PO BID 10/19/2018 10/22/2018 Inactive Zithromax Z-Juan 250 mg tablet RxNorm: 993248 1 Tablet(s) PO UD 10/19/2018 10/23/2018 Inactive zpack as directed glimepiride 4 mg tablet RxNorm: 705963 Tablet(s) 1 TABLET(S) PO DAILY 10/12/2018 No Stop Date Active cefdinir 300 mg capsule RxNorm: 848252 1 Capsule(s) PO BID 10/12/2018 10/18/2018 Inactive Zithromax Z-Juan 250 mg tablet RxNorm: 732995 1 Tablet(s) PO UD 10/12/2018 10/16/2018 Inactive zpack as directed Tessalon Perles 100 mg capsule RxNorm: 662758 2 Capsule(s) PO TID as needed cough 10/12/2018 10/16/2018 Inactive Kenalog 40 mg/mL suspension for injection RxNorm: 0412344 1 Milliliter(s) Inj 10/12/2018 10/12/2018 Inactive Zithromax Z-Juan 250 mg tablet RxNorm: 875703 1 Tablet(s) PO UD 08/22/2018 08/26/2018 Inactive zpack as directed clonidine HCl 0.1 mg tablet RxNorm: 999608 1 Tablet(s) PO QAM 08/16/2018 01/15/2019 Inactive losartan 100 mg tablet RxNorm: 416704 1 TABLET(S) PO DAILY FOR HIGH BLOOD PRESSURE 08/12/2018 No Stop Date Active alprazolam 0.5 mg tablet RxNorm: 163358 1 Tablet(s) PO TID as needed anxiety 06/30/2018 12/26/2018 Inactive fluticasone 50 mcg/actuation nasal spray,suspension RxNorm: 7635684 USE 1 SPRAY NASALLY TWICE A DAY 05/06/2018 01/15/2019 Inactive clonidine HCl 0.1 mg tablet RxNorm: 498390 1 Tablet(s) PO BID 04/14/2018 08/15/2018 Inactive clonidine HCl 0.1 mg tablet RxNorm: 081633 1 Tablet(s) PO TID 04/12/2018 04/13/2018 Inactive Zithromax Z-Juan 250 mg tablet RxNorm: 816463 1 Tablet(s) PO UD 01/20/2018 08/21/2018 Inactive disregard first rx for 1 - patient needs 3 packs-please dispense generic azithromycin Zithromax Z-Juan 250 mg tablet RxNorm: 667206 1 Tablet(s) PO UD 01/20/2018 01/19/2018 Inactive Zithromax Z-Juan 250 mg tablet RxNorm: 435182 1 Tablet(s) PO UD 01/20/2018 01/19/2018 Inactive disregard first rx for 1 - patient needs 3 packs Zithromax Z-Juan 250 mg tablet RxNorm: 737150 1 Tablet(s) PO UD 01/20/2018 01/19/2018 Inactive atorvastatin 10 mg tablet RxNorm: 496398 1 Tablet(s) PO QPM 12/30/2017 12/24/2018 Inactive atorvastatin 10 mg tablet RxNorm: 356389 1 Tablet(s) PO QPM 12/30/2017 12/29/2017 Inactive clonidine HCl 0.1 mg tablet RxNorm: 088256 1 Tablet(s) PO BID 12/29/2017 04/11/2018 Inactive Lipitor 10 mg tablet RxNorm: 963311 1 Tablet(s) PO QPM 12/29/2017 12/29/2017 Inactive OKAY TO DISPENSE GENERIC metoprolol tartrate 50 mg tablet RxNorm: 178600 1/2 Tablet(s) PO BID 12/29/2017 12/01/2018 Inactive alprazolam 0.5 mg tablet RxNorm: 195391 1 Tablet(s) PO TID as needed anxiety 11/18/2017 05/16/2018 Inactive glimepiride 4 mg tablet RxNorm: 917804 1 TABLET(S) PO DAILY 11/15/2017 10/11/2018 Inactive alprazolam 0.5 mg tablet RxNorm: 704606 1 Tablet(s) PO TID as needed anxiety 09/20/2017 11/17/2017 Inactive Zithromax Z-Juan 250 mg tablet RxNorm: 117910 1 Tablet(s) PO UD 09/20/2017 12/28/2017 Inactive Zithromax Z-Juan 250 mg tablet RxNorm: 207198 1 Tablet(s) PO UD 09/14/2017 09/19/2017 Inactive clonidine HCl 0.1 mg tablet RxNorm: 301089 1/2 Tablet(s) PO BID 08/24/2017 12/28/2017 Inactive amlodipine 10 mg tablet RxNorm: 706373 1 Tablet(s) PO daily 08/24/2017 08/18/2018 Inactive erythromycin 5 mg/gram (0.5 %) eye ointment RxNorm: 010478 1 Gram(s) ophthalmic (eye) QID left eye cyst 08/24/2017 09/06/2017 Inactive losartan 100 mg tablet RxNorm: 698404 1 Tablet(s) PO daily for high blood pressure 08/16/2017 08/10/2018 Inactive metoprolol tartrate 50 mg tablet RxNorm: 100536 1/2 Tablet(s) PO BID 07/26/2017 12/28/2017 Inactive clonidine HCl 0.1 mg tablet RxNorm: 306685 1/2 Tablet(s) PO BID 07/26/2017 08/23/2017 Inactive metoprolol tartrate 50 mg tablet RxNorm: 830083 1 Tablet(s) PO BID 07/21/2017 07/25/2017 Inactive amlodipine 10 mg tablet RxNorm: 655384 1 TABLET(S) PO DAILY 06/29/2017 08/23/2017 Inactive Lipitor 10 mg tablet RxNorm: 159766 1 Tablet(s) PO QPM 05/27/2017 12/28/2017 Inactive OKAY TO DISPENSE GENERIC alprazolam 0.5 mg tablet RxNorm: 331423 1 Tablet(s) PO TID as needed anxiety 05/18/2017 08/15/2017 Inactive hydrochlorothiazide 12.5 mg tablet RxNorm: 380883 1 Tablet(s) PO daily 04/22/2017 05/21/2017 Inactive hydrochlorothiazide 12.5 mg tablet RxNorm: 578380 1 Tablet(s) PO daily 04/22/2017 04/21/2017 Inactive Cipro 500 mg tablet RxNorm: 950363 1 Tablet(s) PO BID 04/16/2017 04/22/2017 Inactive Zofran 4 mg tablet RxNorm: 188365 1 Tablet(s) PO BID as needed nausea and vomitting 04/15/2017 04/19/2017 Inactive Lipitor 10 mg tablet RxNorm: 611178 1 Tablet(s) PO QPM 03/30/2017 05/26/2017 Inactive OKAY TO DISPENSE GENERIC Kenalog 40 mg/mL suspension for injection RxNorm: 2183282 1 Milliliter(s) Inj 03/16/2017 03/16/2017 Inactive doxazosin 4 mg tablet RxNorm: 167909 1.5 Tablet(s) PO BID 03/16/2017 05/02/2017 Inactive prednisone 10 mg tablets in a dose pack RxNorm: 830516 Tablet(s) take dose pack as directed PO take with food 03/16/2017 05/23/2017 Inactive Kenalog 40 mg/mL suspension for injection RxNorm: 0663208 Milliliter(s) Inj 03/12/2017 03/12/2017 Inactive Zithromax Z-Juan 250 mg tablet RxNorm: 624572 1 Tablet(s) PO daily 03/11/2017 03/10/2017 Inactive zpack as directed Zithromax Z-Juan 250 mg tablet RxNorm: 610676 1 Tablet(s) PO daily 03/11/2017 03/15/2017 Inactive zpack as directed doxazosin 4 mg tablet RxNorm: 745707 1.5 Tablet(s) PO BID 02/12/2017 03/15/2017 Inactive fluticasone 50 mcg/actuation nasal spray,suspension RxNorm: 3842083 1 SPRAY NASAL BID 02/05/2017 05/05/2018 Inactive metoprolol tartrate 75 mg tablet RxNorm: 2072271 1 Tablet(s) PO BID 01/29/2017 07/19/2017 Inactive metoprolol tartrate 75 mg tablet RxNorm: 8500701 1 Tablet(s) PO BID 01/29/2017 01/28/2017 Inactive doxazosin 4 mg tablet RxNorm: 987391 1 Tablet(s) PO BID 01/20/2017 02/11/2017 Inactive pantoprazole 40 mg tablet,delayed release RxNorm: 025009 1 Tablet(s) PO daily 12/24/2016 01/19/2017 Inactive pantoprazole 40 mg tablet,delayed release RxNorm: 157818 1 Tablet(s) PO daily 12/24/2016 12/23/2016 Inactive alprazolam 0.5 mg tablet RxNorm: 332046 1 Tablet(s) PO TID as needed anxiety 12/03/2016 04/01/2017 Inactive fluticasone 50 mcg/actuation nasal spray,suspension RxNorm: 9513402 1 [employer] NASAL BID 11/25/2016 12/24/2016 Inactive Dexilant 60 mg capsule, delayed release RxNorm: 121345 1 Capsule(s) PO daily 11/25/2016 11/24/2016 Inactive fluticasone 50 mcg/actuation nasal spray,suspension RxNorm: 1889102 1 [employer] NASAL BID 11/25/2016 11/24/2016 Inactive fluticasone 50 mcg/actuation nasal spray,suspension RxNorm: 1962755 1 [employer] NASAL BID 11/25/2016 11/24/2016 Inactive Dexilant 60 mg capsule, delayed release RxNorm: 256281 1 Capsule(s) PO daily 11/25/2016 12/23/2016 Inactive ProAir RespiClick 90 mcg/actuation breath activated RxNorm: 8139762 1 INH bid and QID as needed 11/19/2016 05/17/2017 Inactive Please send STAT Flonase Allergy Relief 50 mcg/actuation nasal spray,suspension RxNorm: 0016119 1 [employer] NASAL BID 11/19/2016 11/24/2016 Inactive glimepiride 4 mg tablet RxNorm: 661460 1 Tablet(s) PO daily 11/19/2016 11/13/2017 Inactive metoprolol tartrate 50 mg tablet RxNorm: 368245 1 Tablet(s) PO BID 11/19/2016 01/28/2017 Inactive Flonase Allergy Relief 50 mcg/actuation nasal spray,suspension RxNorm: 8569449 1 [employer] NASAL BID 11/17/2016 11/18/2016 Inactive metoprolol tartrate 50 mg tablet RxNorm: 540600 1 Tablet(s) PO BID 11/17/2016 11/18/2016 Inactive ProAir RespiClick 90 mcg/actuation breath activated RxNorm: 7934595 1 INH bid and QID as needed 11/17/2016 11/16/2016 Inactive glimepiride 4 mg tablet RxNorm: 305585 1 Tablet(s) PO daily 11/17/2016 11/18/2016 Inactive ProAir RespiClick 90 mcg/actuation breath activated RxNorm: 8376282 1 INH bid and QID as needed 11/17/2016 11/18/2016 Inactive Please send STAT Kenalog 40 mg/mL suspension for injection RxNorm: 5192914 1 Milliliter(s) Inj 11/05/2016 11/05/2016 Inactive azithromycin 250 mg tablet RxNorm: 032218 Tablet(s) PO 2 tabs on day #1, then daily x 4 days 11/05/2016 12/23/2016 Inactive doxazosin 4 mg tablet RxNorm: 342309 1 Tablet(s) PO QPM 10/02/2016 01/19/2017 Inactive doxazosin 4 mg tablet RxNorm: 757481 1 Tablet(s) PO QPM 09/29/2016 10/01/2016 Inactive doxazosin 4 mg tablet RxNorm: 796873 1 Tablet(s) PO QPM 09/21/2016 09/28/2016 Inactive Cipro 500 mg tablet RxNorm: 530380 1 Tablet(s) PO BID 09/18/2016 09/17/2016 Inactive Cipro 500 mg tablet RxNorm: 255108 1 Tablet(s) PO BID 09/18/2016 09/24/2016 Inactive losartan 100 mg tablet RxNorm: 559056 1 Tablet(s) PO daily for high blood pressure 09/16/2016 09/15/2016 Inactive alprazolam 0.5 mg tablet RxNorm: 891332 1 Tablet(s) PO TID as needed anxiety 09/16/2016 11/14/2016 Inactive losartan 100 mg tablet RxNorm: 714816 1 Tablet(s) PO daily for high blood pressure 09/16/2016 08/15/2017 Inactive amlodipine 10 mg tablet RxNorm: 915416 1 Tablet(s) PO daily 08/03/2016 06/28/2017 Inactive Zyrtec 10 mg tablet RxNorm: 0101395 1 Tablet(s) PO daily 08/03/2016 09/15/2016 Inactive losartan 25 mg tablet RxNorm: 567190 1 Tablet(s) PO daily 07/08/2016 09/15/2016 Inactive Lipitor 10 mg tablet RxNorm: 094043 1 Tablet(s) PO QPM 07/08/2016 07/17/2016 Inactive OKAY TO DISPENSE GENERIC Lipitor 10 mg tablet RxNorm: 649564 1 Tablet(s) PO QPM 07/06/2016 07/07/2016 Inactive OKAY TO DISPENSE GENERIC losartan 25 mg tablet RxNorm: 970321 1 Tablet(s) PO daily 07/06/2016 07/07/2016 Inactive meclizine 25 mg tablet RxNorm: 210250 1 Tablet(s) PO TID as needed No Start Date Active Parafon Forte DSC 500 mg tablet RxNorm: 805166 1 Tablet(s) PO QID No Start Date Active Pazeo 0.7 % eye drops RxNorm: 7347794 Drop(s) ophthalmic (eye) as needed dry eyes No Start Date Active Zithromax Z-Juan 250 mg tablet RxNorm: 700839 1 Tablet(s) PO UD No Start Date 09/13/2017 Inactive glimepiride 4 mg tablet RxNorm: 897772 1 Tablet(s) PO daily No Start Date 11/16/2016 Inactive metoprolol tartrate 100 mg tablet RxNorm: 114270 1 Tablet(s) PO BID No Start Date 07/21/2017 Inactive naproxen 500 mg tablet RxNorm: 799370 1 Tablet(s) PO BID No Start Date 03/23/2017 Inactive amlodipine 5 mg tablet RxNorm: 097983 1 Tablet(s) PO daily No Start Date 08/02/2016 Inactive metoprolol tartrate 50 mg tablet RxNorm: 260645 1 Tablet(s) PO BID No Start Date 11/16/2016 Inactive Medication Administered Medication Codes Instructions Start Date Status Kenalog 40 mg/mL suspension for injection RxNorm: 5389043 Milliliter 01/02/2019 No longer Active Kenalog 40 mg/mL suspension for injection RxNorm: 1769532 1Milliliter 10/12/2018 No longer Active Kenalog 40 mg/mL suspension for injection RxNorm: 5350490 1Milliliter 03/16/2017 No longer Active Kenalog 40 mg/mL suspension for injection RxNorm: 6092934 Milliliter 03/12/2017 No longer Active Kenalog 40 mg/mL suspension for injection RxNorm: 9794967 1Milliliter 11/05/2016 No longer Active Immunizations Vaccine Codes Date Status Influenza CVX: 141 08/16/2018 completed Influenza CVX: 141 08/10/2017 completed Assessments Condition Codes Effective Dates Cough ICD-10: R05 ICD-9: 786.2 01/02/2019 Dysuria ICD-10: R30.0 ICD-9: 788.1 12/28/2018 Other allergic rhinitis ICD-10: J30.89 ICD-9: 477.8 10/12/2018 Other acute sinusitis ICD-10: J01.80 ICD-9: 461.8 10/12/2018 Encounter for general adult medical examination with abnormal findings ICD-10: Z00.01 ICD-9: V70.0 09/06/2018 Mixed hyperlipidemia ICD-10: E78.2 ICD-9: 272.2 08/16/2018 Essential (primary) hypertension ICD-10: I10 ICD-9: 401.1 08/16/2018 Type 2 diabetes mellitus without complications [...] For Visit Effective Dates Notes sinus congestion 10/12/2018 Annual Medicare Wellness Exam [...] Lipid Ord30 C/HDL 3.1 Ratio 08/18/2018 Microalbumin Ctw562 MicroAlb 7.5 mg/dL 08/18/2018 Cbc With Differential [...] 29.6 pg 08/18/2018 Cbc With Differential Ord2 Addison% 10.6 % 08/18/2018 Cbc With Differential Ord2 [...] 1.69 K/ul 08/18/2018 Cbc With Differential Ord2 Addison ABS# 0.6 K/ul 08/18/2018 Cbc With Differential Ord2 Eos ABS# 0.3 K/ul 08/18/2018 Cbc With Differential Ord2 Baso ABS# 0.0 K/ul 08/18/2018 Comp Metabolic Slt711 NA 137 mEq/L 08/18/2018 Comp Metabolic Cqt072 K 3.8 mEq/L 08/18/2018 Comp Metabolic Mvv474 CL 103 mEq/L 08/18/2018 Comp Metabolic Tsm576 CO2 26.0 mEq/L 08/18/2018 Comp Metabolic Rrm323 ANION GAP 12 08/18/2018 Comp Metabolic Jox289 GLUCOSE 110 mg/dL 08/18/2018 Comp Metabolic Xjs570 Creat 1.2 mg/dL 08/18/2018 Comp Metabolic Ywn199 eGFR 47 ml/min/1.73m2 08/18/2018 Comp Metabolic Zjg105 BUN 25 mg/dL 08/18/2018 Comp Metabolic Mpg280 B/C Ratio 21.0 Ratio 08/18/2018 Comp Metabolic Xkx348 CALCIUM 9.4 mg/dL 08/18/2018 Comp Metabolic Mje136 ALK PHOS 99 U/L 08/18/2018 Comp Metabolic Vjy409 AST(SGOT) 31 U/L 08/18/2018 Comp Metabolic Mpn093 ALT(SGPT) 27 U/L 08/18/2018 Comp Metabolic Qko236 BILI T 0.7 mg/dL 08/18/2018 Comp Metabolic Oiy450 ALBUMIN 4.2 g/dL 08/18/2018 Comp Metabolic Gqz266 TPRO 6.7 g/dL 08/18/2018 Comp Metabolic Buc894 GLOB 2.5 g/dL 08/18/2018 Comp Metabolic Mrv343 A/G Ratio 1.7 Ratio 08/18/2018 Comp Metabolic Txo744 Osmo 279 mOsmo 08/18/2018 %Hba1C Xsv435 % HbA1c 61863- 6 6.1 % 08/18/2018 %Hba1C Tyr907 Gluc Ave 128 mg/dL 08/18/2018 Tsh Ord6 TSH (3rd IS) 3.93 uIU/mL 08/18/2018 Lipid Ord30 CHOL 146 mg/dL 04/15/2018 Lipid Ord30 HDL 62.0 mg/dl 04/15/2018 Lipid Ord30 TRIG 88 mg/dL 04/15/2018 Lipid Ord30 LDL 66 mg/dL 04/15/2018 Lipid Ord30 C/HDL 2.4 Ratio 04/15/2018 %Hba1C Lhf256 % HbA1c 03315- 6 6.3 % 04/15/2018 %Hba1C Tum047 Gluc Ave 134 mg/dL 04/15/2018 Cbc With [...] 30.2 pg 04/15/2018 Cbc With Differential Ord2 Addison% 6.8 % 04/15/2018 Cbc With Differential Ord2 [...] 2.10 K/ul 04/15/2018 Cbc With Differential Ord2 Addison ABS# 0.5 K/ul 04/15/2018 Cbc With Differential Ord2 Eos ABS# 0.2 K/ul 04/15/2018 Cbc With Differential Ord2 Baso ABS# 0.0 K/ul 04/15/2018 Comp Metabolic Ktq914 NA 140 mEq/L 04/15/2018 Comp Metabolic Vjn099 K 4.3 mEq/L 04/15/2018 Comp Metabolic Gpu817 CL 106 mEq/L 04/15/2018 Comp Metabolic Qrp761 CO2 23.0 mEq/L 04/15/2018 Comp Metabolic Osu308 ANION GAP 15 04/15/2018 Comp Metabolic Pjl601 GLUCOSE 90 mg/dL 04/15/2018 Comp Metabolic Ejq402 Creat 1.2 mg/dL 04/15/2018 Comp Metabolic Rqv443 eGFR 45 ml/min/1.73m2 04/15/2018 Comp Metabolic Cot038 BUN 28 mg/dL 04/15/2018 Comp Metabolic Qiq362 B/C Ratio 22.8 Ratio 04/15/2018 Comp Metabolic Iqm489 CALCIUM 9.5 mg/dL 04/15/2018 Comp Metabolic Tfu081 ALK PHOS 95 U/L 04/15/2018 Comp Metabolic Ijx512 AST(SGOT) 20 U/L 04/15/2018 Comp Metabolic Wlr730 ALT(SGPT) 13 U/L 04/15/2018 Comp Metabolic Jfm342 BILI T 0.5 mg/dL 04/15/2018 Comp Metabolic Iwu888 ALBUMIN 4.1 g/dL 04/15/2018 Comp Metabolic Fau496 TPRO 6.6 g/dL 04/15/2018 Comp Metabolic Rlv867 GLOB 2.5 g/dL 04/15/2018 Comp Metabolic Zmt628 A/G Ratio 1.6 Ratio 04/15/2018 Comp Metabolic Gpe576 Osmo 284 mOsmo 04/15/2018 Comp Metabolic Vbq695 NA 137 mEq/L 02/04/2018 Comp Metabolic Thp463 K 4.0 mEq/L 02/04/2018 Comp Metabolic Npy353 CL 104 mEq/L 02/04/2018 Comp Metabolic Tly393 CO2 27.0 mEq/L 02/04/2018 Comp Metabolic Pnv418 ANION GAP 10 02/04/2018 Comp Metabolic Thu705 GLUCOSE 212 mg/dL 02/04/2018 Comp Metabolic Odw018 Creat 1.2 mg/dL 02/04/2018 Comp Metabolic Fhq389 eGFR 47 ml/min/1.73m2 02/04/2018 Comp Metabolic Lyp368 BUN 20 mg/dL 02/04/2018 Comp Metabolic Xkq350 B/C Ratio 16.8 Ratio 02/04/2018 Comp Metabolic Mjg914 CALCIUM 8.9 mg/dL 02/04/2018 Comp Metabolic Hem314 ALK PHOS 107 U/L 02/04/2018 Comp Metabolic Dvn251 AST(SGOT) 17 U/L 02/04/2018 Comp Metabolic Jxv204 ALT(SGPT) 11 U/L 02/04/2018 Comp Metabolic Mnb365 BILI T 0.4 mg/dL 02/04/2018 Comp Metabolic Nxr689 ALBUMIN 3.8 g/dL 02/04/2018 Comp Metabolic Ewi082 TPRO 6.2 g/dL 02/04/2018 Comp Metabolic Kuc559 GLOB 2.4 g/dL 02/04/2018 Comp Metabolic Nur885 A/G Ratio 1.6 Ratio 02/04/2018 Comp Metabolic Puf461 Osmo 283 mOsmo 02/04/2018 %Hba1C Szh900 % HbA1c 30646- 6 6.3 % 12/30/2017 %Hba1C Hat719 Gluc Ave 134 mg/dL 12/30/2017 Comp Metabolic Vhg152 NA 142 mEq/L 12/30/2017 Comp Metabolic Xux521 K 4.4 mEq/L 12/30/2017 Comp Metabolic Lgi024 CL 103 mEq/L 12/30/2017 Comp Metabolic Cxu296 CO2 31.0 mEq/L 12/30/2017 Comp Metabolic Nqr611 ANION GAP 12 12/30/2017 Comp Metabolic Tpn310 GLUCOSE 119 mg/dL 12/30/2017 Comp Metabolic Pxm191 Creat 1.4 mg/dL 12/30/2017 Comp Metabolic Wva705 eGFR 41 ml/min/1.73m2 12/30/2017 Comp Metabolic Dlo322 BUN 27 mg/dL 12/30/2017 Comp Metabolic Icn956 B/C Ratio 20.0 Ratio 12/30/2017 Comp Metabolic Fpi211 CALCIUM 9.9 mg/dL 12/30/2017 Comp Metabolic Bpe560 ALK PHOS 106 U/L 12/30/2017 Comp Metabolic Opm984 AST(SGOT) 20 U/L 12/30/2017 Comp Metabolic Gbc923 ALT(SGPT) 13 U/L 12/30/2017 Comp Metabolic Ura558 BILI T 0.7 mg/dL 12/30/2017 Comp Metabolic Zaw359 ALBUMIN 4.2 g/dL 12/30/2017 Comp Metabolic Nqs397 TPRO 6.7 g/dL 12/30/2017 Comp Metabolic Aag296 GLOB 2.6 g/dL 12/30/2017 Comp Metabolic Vch133 A/G Ratio 1.6 Ratio 12/30/2017 Comp Metabolic Otm732 Osmo 289 mOsmo 12/30/2017 Lipid Ord30 CHOL 167 mg/dL 12/30/2017 Lipid Ord30 HDL 63.0 mg/dl 12/30/2017 Lipid Ord30 TRIG 89 mg/dL 12/30/2017 Lipid Ord30 LDL 86 mg/dL 12/30/2017 Lipid Ord30 C/HDL 2.7 Ratio 12/30/2017 Urine Culture Ucult Preliminary NO Growth Day 1 04/17/2017 Urine Culture Ucult Complete NO Growth Day 2 04/17/2017 Comp Metabolic Mwt503 NA 143 mEq/L 04/15/2017 Comp Metabolic Woi499 K 4.6 mEq/L 04/15/2017 Comp Metabolic Zam273 CL 110 mEq/L 04/15/2017 Comp Metabolic Syt622 CO2 30.0 mEq/L 04/15/2017 Comp Metabolic Khb495 ANION GAP 8 04/15/2017 Comp Metabolic Otu267 GLUCOSE 159 mg/dL 04/15/2017 Comp Metabolic Gwu003 Creat 1.1 mg/dL 04/15/2017 Comp Metabolic Vqg118 eGFR 54 ml/min/1.73m2 04/15/2017 Comp Metabolic Xtd613 BUN 27 mg/dL 04/15/2017 Comp Metabolic Zpy100 B/C Ratio 25.7 Ratio 04/15/2017 Comp Metabolic Dze328 CALCIUM 9.4 mg/dL 04/15/2017 Comp Metabolic Jzk158 ALK PHOS 93 U/L 04/15/2017 Comp Metabolic Ghh062 AST(SGOT) 19 U/L 04/15/2017 Comp Metabolic Jow797 ALT(SGPT) 18 U/L 04/15/2017 Comp Metabolic Hua473 BILI T 0.6 mg/dL 04/15/2017 Comp Metabolic Dto303 ALBUMIN 3.9 g/dL 04/15/2017 Comp Metabolic Rfw000 TPRO 6.5 g/dL 04/15/2017 Comp Metabolic Fdd874 GLOB 2.6 g/dL 04/15/2017 Comp Metabolic Fty387 A/G Ratio 1.5 Ratio 04/15/2017 Comp Metabolic Cjz048 Osmo 293 mOsmo 04/15/2017 Tsh Ord6 hTSH II 2.05 uIU/mL 04/15/2017 %Hba1C Awt576 % HbA1c 81247- 6 6.3 % 04/15/2017 %Hba1C Ejy549 Gluc Ave 134 mg/dL 04/15/2017 Cbc With [...] 29.0 pg 04/15/2017 Cbc With Differential Ord2 Addison% 6.9 % 04/15/2017 Cbc With Differential Ord2 [...] 1.58 K/ul 04/15/2017 Cbc With Differential Ord2 Addison ABS# 0.5 K/ul 04/15/2017 Cbc With Differential [...] Ord28 U-Com Culture to follow 04/15/2017 %Hba1C Mit246 % HbA1c 71428- 6 5.8 % 01/07/2017 %Hba1C Xjb078 Gluc Ave 120 mg/dL 01/07/2017 Urine Culture Ucult Preliminary NO Growth Day 1 09/21/2016 Urine Culture Ucult Complete NO Growth Day 2 09/21/2016 %Hba1C Kiw401 % HbA1c 84253- 6 6.0 % 09/17/2016 %Hba1C Crz929 Gluc Ave 126 mg/dL 09/17/2016 Comp Metabolic Ilj623 NA 140 mEq/L 09/17/2016 Comp Metabolic Gms616 K 4.1 mEq/L 09/17/2016 Comp Metabolic Zwx758 CL 105 mEq/L 09/17/2016 Comp Metabolic Ryv631 CO2 29.0 mEq/L 09/17/2016 Comp Metabolic Neb329 ANION GAP 10 09/17/2016 Comp Metabolic Okc334 GLUCOSE 89 mg/dL 09/17/2016 Comp Metabolic Ntw314 Creat 0.9 mg/dL 09/17/2016 Comp Metabolic Ojt280 eGFR 65 ml/min/1.73m2 09/17/2016 Comp Metabolic Ncb244 BUN 20 mg/dL 09/17/2016 Comp Metabolic Uzh145 B/C Ratio 22.2 Ratio 09/17/2016 Comp Metabolic Lel837 CALCIUM 9.3 mg/dL 09/17/2016 Comp Metabolic Rfo851 ALK PHOS 107 U/L 09/17/2016 Comp Metabolic Xcc197 AST(SGOT) 22 U/L 09/17/2016 Comp Metabolic Azq095 ALT(SGPT) 15 U/L 09/17/2016 Comp Metabolic Amv510 BILI T 0.7 mg/dL 09/17/2016 Comp Metabolic Zuy222 ALBUMIN 4.0 g/dL 09/17/2016 Comp Metabolic Izj591 TPRO 6.8 g/dL 09/17/2016 Comp Metabolic Izs182 GLOB 2.8 g/dL 09/17/2016 Comp Metabolic Sko600 A/G Ratio 1.4 Ratio 09/17/2016 Comp Metabolic Elw696 Osmo 281 mOsmo 09/17/2016 Microalbumin Uey649 MicroAlb 44.3 mg/dL 09/17/2016 Tsh Ord6 hTSH [...] 29.0 pg 09/17/2016 Cbc With Differential Ord2 Addison% 8.1 % 09/17/2016 Cbc With Differential Ord2 [...] 1.78 K/ul 09/17/2016 Cbc With Differential Ord2 Addison ABS# 0.6 K/ul 09/17/2016 Cbc With Differential Ord2 Eos ABS# 0.2 K/ul 09/17/2016 Cbc With Differential Ord2 Baso ABS# 0.0 K/ul 09/17/2016 Lipid Ord30 CHOL 136 mg/dL 09/17/2016 Lipid Ord30 HDL 50.0 mg/dl 09/17/2016 Lipid Ord30 TRIG 70 mg/dL 09/17/2016 Lipid Ord30 LDL 72 mg/dL 09/17/2016 Lipid Ord30 C/HDL 2.7 Ratio 09/17/2016 Review of Systems System Result Effective Dates Constitutional recent illness 10/12/2018 Constitutional No chills [...] time 10/12/2018 None Full Exam - General [facility] Constitutional general appearance Development: appears stated age [...] clear 01/20/2018 None Full Exam - General 1995 Ears/Nose/Throat oral cavity/pharynx/larynx Posterior Pharynx: clear post [...] Procedure Codes Date THER/PROPH/DIAG INJ SC/IM CPT-4: 55150 01/02/2019 TRIAMCINOLONE ACET INJ NOS CPT-4: J3301 01/02/2019 TRIAMCINOLONE ACET INJ NOS CPT-4: J3301 10/12/2018 THER/PROPH/DIAG INJ SC/IM CPT-4: 17857 10/12/2018 PPPS, SUBSEQ VISIT CPT- 4: G0439 09/06/2018 URINALYSIS NONAUTO W/O SCOPE CPT-4: 83442 12/29/2017 PPPS, SUBSEQ VISIT CPT- 4: G0439 03/30/2017 THER/PROPH/DIAG INJ SC/IM CPT-4: 60908 03/16/2017 TRIAMCINOLONE ACET INJ NOS CPT-4: J3301 03/16/2017 THER/PROPH/DIAG INJ SC/IM CPT-4: 64278 03/12/2017 TRIAMCINOLONE ACET INJ NOS CPT-4: J3301 03/12/2017 THER/PROPH/DIAG INJ SC/IM CPT-4: 64957 11/05/2016 TRIAMCINOLONE ACET INJ NOS CPT-4: J3301 11/05/2016 URINALYSIS NONAUTO W/O SCOPE CPT-4: 79684 09/18/2016 Vital Signs Date Vital 10/12/2018 Blood Pressure 1: 142/76 Code: 8480-6 BMI: 30.1 Code: 37890-4 Heart Rate 1: 83 bpm Height: 5'7" SpO2: 98% Weight: 192 lbs 09/06/2018 Blood Pressure 1: 142/66 Code: 8480-6 BMI: 30.9 Code: 20585-4 Heart Rate 1: 64 bpm Height: 5'7" SpO2: 98% Waist Measure (cm): 99 cm Weight: 197 lbs 08/16/2018 Blood Pressure 1: 140/70 Code: 8480-6 BMI: 34.4 Code: 90189-4 Heart Rate 1: 63 bpm Height: 5'7" SpO2: 95% Weight: 219 lbs 14 oz 04/12/2018 Blood Pressure 1: 160/70 Code: 8480-6 BMI: 33.0 Code: 36350-2 Heart Rate 1: 82 bpm Height: 5'7" SpO2: 95% Weight: 211 lbs 01/20/2018 Blood Pressure 1: 152/66 Code: 8480-6 BMI: 31.8 Code: 99039-2 Heart Rate 1: 52 bpm Height: 5'7" SpO2: 98% Temperature: 36.3 (C) / 97.3 (F) Weight: 203 lbs 12/29/2017 Blood Pressure 1: 168/72 Code: 8480-6 BMI: 32.1 Code: 74276-5 Heart Rate 1: 63 bpm Height: 5'7" SpO2: 98% Weight: 205 lbs 08/24/2017 Blood Pressure 1: 186/70 Code: 8480-6 Blood Pressure 1: 150/70 Code: 8480-6 BMI: 31.8 Code: 27082-3 Heart Rate 1: 53 bpm Height: 5'7" SpO2: 98% Weight: 203 lbs 07/26/2017 Blood Pressure 1: 206/78 Code: 8480-6 Blood Pressure 2: 210/84 Code: 8480-6 BMI: 32.0 Code: 20954-2 Heart Rate 1: 49 bpm Height: 5'7" SpO2: 97% Weight: 204 lbs 07/20/2017 Blood Pressure 1: 148/82 Code: 8480-6 Heart Rate 1: 90 bpm SpO2: 98% 05/27/2017 Blood Pressure 1: 142/72 Code: 8480-6 BMI: 30.5 Code: 45233-9 Heart Rate 1: 97 bpm Height: 5'7" [...] 1: 148/70 Code: 8480-6 BMI: 30.4 Code: 00685-5 Heart Rate 1: 54 bpm Height: 5'7" SpO2: 97% Weight: 194 lbs 03/30/2017 BMI: 33.2 Code: 94721-0 Height: 5'7" Weight: 212 lbs 03/16/2017 Blood Pressure 1: 140/80 Code: 8480-6 BMI: 34.0 Code: 13152-7 Heart Rate 1: 70 bpm Height: 5'7" SpO2: 95% Weight: 217 lbs 03/12/2017 Blood Pressure 1: 142/80 Code: 8480-6 BMI: 34.0 Code: 94372-2 Heart Rate 1: 76 bpm Height: 5'7" SpO2: 92% Weight: 217 lbs 02/17/2017 Blood Pressure 1: 162/64 Code: 8480-6 BMI: 32.9 Code: 15741-2 Heart Rate 1: 59 bpm Height: 5'7" SpO2: 97% Weight: 210 lbs 01/20/2017 Blood Pressure 1: 162/74 Code: 8480-6 BMI: 32.9 Code: 84649-8 Heart Rate 1: 56 bpm Height: 5'7" SpO2: 98% Weight: 210 lbs 11/17/2016 Blood Pressure 1: 156/60 Code: 8480-6 BMI: 34.8 Code: 59191-3 Heart Rate 1: 63 bpm Height: 5'7" SpO2: 96% Weight: 222 lbs 11/05/2016 Blood Pressure 1: 160/68 Code: 8480-6 BMI: 34.5 Code: 62299-1 Heart Rate 1: 66 bpm Height: 5'7" SpO2: 97% Temperature: 36.9 (C) / 98.5 (F) Weight: 220 lbs 09/21/2016 Blood Pressure 1: 180/72 Code: 8480-6 Blood Pressure 1: 166/72 Code: 8480-6 BMI: 32.1 Code: 58258-4 Heart Rate 1: 57 bpm Height: 5'7" SpO2: 98% Weight: 205 lbs 09/16/2016 Blood Pressure 1: 168/70 Code: 8480-6 Heart Rate 1: 49 bpm SpO2: 95% 08/03/2016 Blood Pressure 1: 162/70 Code: 8480-6 BMI: 32.0 Code: 77105-1 Heart Rate 1: 43 bpm Height: 5'7" SpO2: 98% Weight: 204 lbs 07/06/2016 Blood Pressure 1: 170/86 Code: 8480-6 BMI: 32.0 Code: 21391-3 Heart Rate 1: 48 bpm Height: 5'7" SpO2: 97% Weight: 204 lbs Functional Status No Functional Status data History of Present Illness Symptom Name Status Result Effective Date Notes Location frontal sinuses 10/12/2018 None Quality constant [...] data Encounters Encounter Performer Location Codes Date 96119 EST. PATIENT, LEVEL IV Diagnosis: Other acute sinusitis[ICD10: J01.80] Diagnosis: Other allergic rhinitis[ICD10: J30.89] [facility] CPT- 4: 54675 10/12/2018 ([id number]) 73060 EST. PATIENT, LEVEL IV Diagnosis: Essential (primary) hypertension[ICD10: I10] Diagnosis: Type 2 diabetes mellitus without complications[ICD10: E11.9] Diagnosis: Mixed hyperlipidemia[ICD10: E78.2] Fifi Camejo MD, [facility] CPT- 4: 31657 08/16/2018 ([id number]) 04502 EST. PATIENT, LEVEL IV Diagnosis: Type 2 diabetes mellitus without complications[ICD10: E11.9] Diagnosis: Mixed hyperlipidemia[ICD10: E78.2] Diagnosis: Essential (primary) hypertension[ICD10: I10] Diagnosis: Dysuria[ICD10: R30.0] Diagnosis: Pain in left foot[ICD10: M79.672] Fifi Camejo MD, [facility] CPT- 4: 99086 04/12/2018 ([id number]) 54937 EST. PATIENT, LEVEL III Diagnosis: Otalgia, bilateral[ICD10: H92.03] Diagnosis: Other allergic rhinitis[ICD10: J30.89] Yuridia Camejo MD, [facility] CPT-4: 87202 01/20/2018 ([id number]) 88584 EST. PATIENT, LEVEL IV Diagnosis: Type 2 diabetes mellitus without complications[ICD10: E11.9] Diagnosis: Mixed hyperlipidemia[ICD10: E78.2] Diagnosis: Essential (primary) hypertension[ICD10: I10] Diagnosis: Dysuria[ICD10: R30.0] Fifi Camejo MD, [facility] CPT-4: 42190 12/29/2017 ([id number]) 06444 EST. PATIENT, LEVEL IV Diagnosis: Essential (primary) hypertension[ICD10: I10] Diagnosis: Cysts of left upper eyelid[ICD10: H02.824] Diagnosis: Pain in left foot[ICD10: M79.672] Fifi Camejo MD, [facility] CPT- 4: 88366 08/24/2017 ([id number]) 38835 EST. PATIENT, LEVEL III Diagnosis: Essential (primary) hypertension[ICD10: I10] Fifi Camejo MD [facility] CPT-4: 17422 07/26/2017 ([id number]) Miscellaneous no charge Diagnosis: Essential (primary) hypertension[ICD10: I10] Fifi Camejo MD [facility] CPT-4: 76406 07/20/2017 58942 EST. PATIENT, LEVEL III Diagnosis: Otalgia, bilateral[ICD10: H92.03] Diagnosis: Dizziness and giddiness[ICD10: R42] Diagnosis: Mixed hyperlipidemia[ICD10: E78.2] Krysta Camejo MD, [facility] CPT-4: 43279 05/27/2017 ([id number]) Miscellaneous no charge Diagnosis: Essential (primary) hypertension[ICD10: I10] Krysta Camejo MD [facility] CPT-4: 33897 05/07/2017 ([id number]) 45133 EST. PATIENT, LEVEL IV Diagnosis: Otalgia, bilateral[ICD10: H92.03] Diagnosis: Dizziness and giddiness[ICD10: R42] Diagnosis: Orthostatic hypotension[ICD10: I95.1] Fifi Camejo MD, [facility] CPT-4: 77272 05/03/2017 04159 EST. PATIENT, LEVEL IV Diagnosis: Essential (primary) hypertension[ICD10: I10] Diagnosis: Type 2 diabetes mellitus without complications[ICD10: E11.9] Diagnosis: Gastro-esophageal reflux disease without esophagitis[ICD10: K21.9] Diagnosis: Dizziness and giddiness[ICD10: R42] Diagnosis: Dysuria[ICD10: R30.0] Diagnosis: Other malaise[ICD10: R53.81] Krysta Camejo MD, [facility] CPT-4: 56859 04/15/2017 ([id number]) 88141 EST. PATIENT, LEVEL IV Diagnosis: Type 2 diabetes mellitus without complications[ICD10: E11.9] Diagnosis: Otalgia, bilateral[ICD10: H92.03] Diagnosis: Essential (primary) hypertension[ICD10: I10] Diagnosis: Other allergic rhinitis[ICD10: J30.89] Fifi Camejo MD, [facility] CPT-4: 23808 03/16/2017 84186 EST. PATIENT, LEVEL IV Diagnosis: Other acute sinusitis[ICD10: J01.80] Diagnosis: Acute suppurative otitis media without spontaneous rupture of ear drum, bilateral[ICD10: H66.003] Diagnosis: Other allergic rhinitis[ICD10: J30.89] Krysta Camejo MD, [facility] CPT- 4: 88833 03/12/2017 ([id number]) 21506 EST. PATIENT, LEVEL IV Diagnosis: Essential (primary) hypertension[ICD10: I10] Diagnosis: Type 2 diabetes mellitus without complications[ICD10: E11.9] Fifi Camejo MD [facility] CPT-4: 28511 02/17/2017 ([id number]) 43218 EST. PATIENT, LEVEL IV Diagnosis: Essential (primary) hypertension[ICD10: I10] Diagnosis: Type 2 diabetes mellitus without complications[ICD10: E11.9] Fifi Camejo MD [facility] CPT-4: 58002 01/20/2017 ([id number]) 57712 EST. PATIENT, LEVEL IV Diagnosis: Essential (primary) hypertension[ICD10: I10] Diagnosis: Type 2 diabetes mellitus without complications[ICD10: E11.9] Diagnosis: Gastro-esophageal reflux disease without esophagitis[ICD10: K21.9] Fifi Camejo MD [facility] CPT-4: 53901 11/17/2016 ([id number]) 74883 EST. PATIENT, LEVEL III Diagnosis: Acute bronchitis due to other specified organisms[ICD10: J20.8] Diagnosis: Cough[ICD10: R05] Fifi Camejo MD [facility] CPT-4: 90996 11/05/2016 ([id number]) 95040 EST. PATIENT, LEVEL IV Diagnosis: Essential (primary) hypertension[ICD10: I10] Diagnosis: Type 2 diabetes mellitus without complications[ICD10: E11.9] Fifi Camejo MD [facility] CPT-4: 83045 09/21/2016 ([id number]) Miscellaneous no charge Diagnosis: Essential (primary) hypertension[ICD10: I10] Fifi Camejo MD [facility] CPT-4: 95294 09/16/2016 ([id number]) 84518 EST. PATIENT, LEVEL III Diagnosis: Type 2 diabetes mellitus without complications[ICD10: E11.9] Diagnosis: Essential (primary) hypertension[ICD10: I10] Fifi Camejo MD [facility] CPT-4: 83015 08/03/2016 ([id number]) OFFICE VISIT, NEW - LEVEL 4 Diagnosis: Essential (primary) hypertension[ICD10: I10] Diagnosis: Type 2 diabetes mellitus without complications[ICD10: E11.9] Diagnosis: Carpal tunnel syndrome, left upper limb[ICD10: G56.02] Diagnosis: Right upper quadrant pain[ICD10: R10.11] Diagnosis: Mixed hyperlipidemia[ICD10: E78.2] [facility] CPT- 4: 08031 07/06/2016 Plan of Care Planned Activity Notes Codes Status Date Visit Plan: injection today 01/02/2019 Appointment: Injection [...] allergy spray. 10/12/2018 [phone] ([facility] 10/12/2018 Patient Education: Patient Medication Summary Completed [...] surrogate. 09/06/2018 Appointment: [phone] [facility] - Annual Wellness Visit 09/06/2018 Patient Education: Patient Medication Summary Completed 09/06/2018 Appointment: [phone] [facility] - Annual Wellness Visit 08/29/2018 [...] me dications. 08/16/2018 Appointment: Fifi Camejo WPtel: [facility] (15 min) Moderate 08/16/2018 Patient Education: Patient [...] in left foot - referral to Dr. Hfuf - pt has history of injury to the foot. 04/12/2018 Appointment: [phone] ([facility] min) Moderate 04/12/2018 Patient Education: Patient Medication Summary Completed 04/12/2018 Care Plan: Referral Order SNOMED-CT : [id number] Pending 04/12/2018 Patient Education: Patient Medication Summary [...] spray. 01/20/2018 Appointment: [facility] Walsh [phone] (15 min) Moderate 01/20/2018 Patient Education: Patient [...] less controlled. 12/29/2017 Appointment: Fifi Camejo WPtel: [facility] (15 min) Moderate 12/29/2017 Patient Education: Patient [...] - recommended referral to Dr. Chago davis [place] 08/24/2017 Appointment: Fifi Camejo WPtel: [phone] [facility] (15 min) Moderate 08/24/2017 Patient Education: Patient Medication Summary Completed 08/24/2017 Care Plan: Referral Order SNOMED-CT : [id number] Pending 08/24/2017 Visit Plan: Hypertension - uncontrolled [...] listed above. 07/26/2017 Appointment: [phone] (15 min) Moderate 07/26/2017 Patient Education: [...] to medications. 05/27/2017 Appointment: [facility] Dale [phone] (15 min) Moderate 05/27/2017 Patient Education: Patient Medication Summary Completed 05/27/2017 Appointment: Nurse Visit 05/07/2017 Patient Education: Patient Medication Summary Completed 05/07/2017 Visit Plan: Persistent vergito with bilateral air-fluid levels and ear pain. Pt was seen by Dr. Calvo- she did not like his response to her complaints. I have recommended a referral to ENT in [place] or [place]. I suspect she may need myringotomy tubes. Pt to continue with flonase. Orthostatic hypotension - dc doxazosin. Monitor blood pressures at home. stop the doxazosin meclizine change to 1/2 pill three times a day come back on Wednesday for blood pressure check 05/03/2017 Appointment: [facility]el[phone] (15 min) Moderate 05/03/2017 Patient Education: Patient Medication Summary Completed 05/03/2017 Appointment: Fifi Camejo WPtel: [facility] (15 min) Moderate 04/21/2017 Visit Plan: [...] control. 04/15/2017 Appointment: [facility] Dale [phone] (30 min) Complex 04/15/2017 Patient Education: Patient [...] care surrogate. 03/30/2017 Appointment: [facility] Dale [phone] [facility] [facility] - Annual Wellness Visit 03/30/2017 [...] home. 03/16/2017 Appointment: [phone] (30 min) Complex 03/16/2017 Patient Education: Patient Medication Summary Completed 03/16/2017 Patient Education: Obesity Completed 03/16/2017 Care Plan: Referral Order SNOMED-CT : [id number] Pending 03/16/2017 Visit Plan: Allergies - chronic [...] acutely worsen. 03/12/2017 Appointment: [facility] Dale [phone] (15 min) Moderate 03/12/2017 Patient Education: Patient [...] controlled. 02/17/2017 Appointment: Fif[facility] Camejo [facility]Ptel[phone] (30 min) Complex 02/17/2017 Patient Education: [...] controlled. 01/20/2017 Appointment: [facility]ame[facility]Ptel[phone] [facility] ([facility] min) Complex 01/20/2017 Patient Education: [...] dexilant 11/17/2016 Appointment: Fif[facility]ame[facility]Ptel[phone] [facility] (30 min) Complex 11/17/2016 Patient Education: [...] 90-110 range. 09/21/2016 Appointment: Fif[facility] Camejo [facility]Ptel[phone] [facility] (15 min) Moderate 09/21/2016 Patient Education: [...] time. 08/03/2016 Appointment: [facility] Camejo [facility]Ptel[phone] [facility] (15 min) Moderate 08/03/2016 Patient Education: [...] improving. 07/06/2016 Appointment: [facility]amejo [facility]Ptel[phone] New Patient 07/06/2016 Patient Education: Patient [...] not improve or if they acutely worsen. Stay off of your bystolic Stop the [...] monitor your heart rate Consider referral for medical office administrator for possible stress test if needed. Call [...] monitor your heart rate Consider referral for medical office administrator for possible stress test if needed. Call [...] have recommended a referral to ENT in [place] or [place]. I suspect she may need myringotomy tubes. [...] - recommended referral to Dr. Anders in [place]
--- OUTSIDE RECORDS SUMMARY | 2019-03-08 16:29 | XMS REPORT | CCD ---
Author Author Fifi Camejo MD, [facility] Address [address] [place] [address] Phone Care Team Providers Care Compliance Representative Dealer Name Role Phone PP Unavailable CCM Unavailable Summary Purpose Interface Exchange Insurance Providers Payer name Policy type / Coverage type Covered constitution party ID Effective Begin Date Effective End Date WPS Medicare Part B Medicare Part B [id number] 2018 Unknown FOR LIFE WPS Medicare Part B [id number] Unknown Family history Father Diagnosis Age At Onset Cancer Unknown Brother Diagnosis Age At Onset Diabetes mellitus Type 2 Unknown Heart Attack Unknown Social History Social History Element Codes Description Effective Dates Marital status Unknown Wu 11/05/2016 Number of children Unknown 1 07/06/2016 Employment Unknown Retired 07/06/[address]: 720358824 Never smoker 07/06/[address]: 539457402 Never drinks alcohol 07/06/2016 Allergies, Adverse Reactions, Alerts Substance Reaction Codes Entered Date Inactivated Date Status Protonix hives RxNorm: 490893 09/06/2018 No Inactive Date Active IV DYE, IODINE CONTAINING emesis, emesis Unknown 04/28/2018 No Inactive Date Active MORPHINE AND RELATED Unknown 04/28/2018 No Inactive Date Active Penicillin Unknown 07/06/2016 No Inactive Date Active Past Medical History Illness Codes Condition Status Onset Date Resolved Date Cough ICD-9: 786.2 ICD-10: R05 Active 11/05/2016 Unknown Dysuria ICD-9: 788.1 ICD-10: R30.0 Active 09/17/2016 Unknown Other acute sinusitis ICD- 9: 461.8 ICD-10: J01.80 Active 03/12/2017 Unknown Other allergic rhinitis ICD-9: 477.8 ICD-10: J30.89 Active 03/12/2017 Unknown Encounter for general adult medical examination with abnormal findings ICD-9: V70.0 ICD-10: Z00.01 Active 03/30/2017 Unknown Essential (primary) hypertension ICD-9: 401.1 ICD-10: I10 Active 09/20/2016 Unknown Mixed hyperlipidemia ICD- 9: 272.2 ICD-10: [...] Problems Condition Codes Effective Dates Condition Status Cough ICD-9: 786.2 ICD-10: R05 11/05/2016 Active Dysuria ICD-9: 788.1 ICD-10: R30.0 09/17/2016 Active Other acute sinusitis ICD- 9: 461.8 ICD-10: J01.80 03/12/2017 Active Other allergic rhinitis ICD-9: 477.8 ICD-10: J30.89 03/12/2017 Active Encounter for general adult medical examination with abnormal findings ICD-9: V70.0 ICD-10: Z00.01 03/30/2017 Active Essential (primary) hypertension ICD-9: 401.1 ICD-10: I10 09/20/2016 Active Mixed hyperlipidemia ICD- 9: 272.2 ICD-10: [...] Start Date Stop Date Status Fill Instructions cefdinir 300 mg capsule RxNorm: 381403 1 Capsule(s) PO BID 01/09/2019 01/15/2019 Active cefdinir 300 mg capsule RxNorm: 228133 1 Capsule(s) PO BID 01/09/2019 01/08/2019 Inactive Zithromax Z-Juan 250 mg tablet RxNorm: 344794 1 Tablet(s) PO UD 01/03/2019 01/07/2019 Inactive zpack as directed Kenalog 40 mg/mL suspension for injection RxNorm: 0864890 Milliliter(s) Inj 01/02/2019 01/02/2019 Inactive Zithromax Z-Juan 250 mg tablet RxNorm: 653821 1 Tablet(s) PO UD 12/30/2018 01/02/2019 Inactive zpack as directed metoprolol tartrate 50 mg tablet RxNorm: 494534 1/2 TABLET(S) PO BID 12/02/2018 No Stop Date Active amlodipine 10 mg tablet RxNorm: 745884 TAKE 1 TABLET DAILY 10/24/2018 No Stop Date Active cefdinir 300 mg capsule RxNorm: 377656 1 Capsule(s) PO BID 10/19/2018 10/22/2018 Inactive Zithromax Z-Juan 250 mg tablet RxNorm: 008333 1 Tablet(s) PO UD 10/19/2018 10/23/2018 Inactive zpack as directed glimepiride 4 mg tablet RxNorm: 232338 Tablet(s) 1 TABLET(S) PO DAILY 10/12/2018 No Stop Date Active cefdinir 300 mg capsule RxNorm: 381444 1 Capsule(s) PO BID 10/12/2018 10/18/2018 Inactive Zithromax Z-Juan 250 mg tablet RxNorm: 337293 1 Tablet(s) PO UD 10/12/2018 10/16/2018 Inactive zpack as directed Tessalon Perles 100 mg capsule RxNorm: 041984 2 Capsule(s) PO TID as needed cough 10/12/2018 10/16/2018 Inactive Kenalog 40 mg/mL suspension for injection RxNorm: 2942512 1 Milliliter(s) Inj 10/12/2018 10/12/2018 Inactive Zithromax Z-Juan 250 mg tablet RxNorm: 247164 1 Tablet(s) PO UD 08/22/2018 08/26/2018 Inactive zpack as directed clonidine HCl 0.1 mg tablet RxNorm: 179931 1 Tablet(s) PO QAM 08/16/2018 08/10/2019 Active losartan 100 mg tablet RxNorm: 566749 1 TABLET(S) PO DAILY FOR HIGH BLOOD PRESSURE 08/12/2018 No Stop Date Active alprazolam 0.5 mg tablet RxNorm: 831360 1 Tablet(s) PO TID as needed anxiety 06/30/2018 12/26/2018 Inactive fluticasone 50 mcg/actuation nasal spray,suspension RxNorm: 7797086 USE 1 SPRAY NASALLY TWICE A DAY 05/06/2018 No Stop Date Active clonidine HCl 0.1 mg tablet RxNorm: 172370 1 Tablet(s) PO BID 04/14/2018 08/15/2018 Inactive clonidine HCl 0.1 mg tablet RxNorm: 236268 1 Tablet(s) PO TID 04/12/2018 04/13/2018 Inactive Zithromax Z-Juan 250 mg tablet RxNorm: 756801 1 Tablet(s) PO UD 01/20/2018 08/21/2018 Inactive disregard first rx for 1 - patient needs 3 packs-please dispense generic azithromycin Zithromax Z-Juan 250 mg tablet RxNorm: 091114 1 Tablet(s) PO UD 01/20/2018 01/19/2018 Inactive Zithromax Z-Juan 250 mg tablet RxNorm: 969328 1 Tablet(s) PO UD 01/20/2018 01/19/2018 Inactive disregard first rx for 1 - patient needs 3 packs Zithromax Z-Juan 250 mg tablet RxNorm: 569056 1 Tablet(s) PO UD 01/20/2018 01/19/2018 Inactive atorvastatin 10 mg tablet RxNorm: 583008 1 Tablet(s) PO QPM 12/30/2017 12/24/2018 Inactive atorvastatin 10 mg tablet RxNorm: 497585 1 Tablet(s) PO QPM 12/30/2017 12/29/2017 Inactive clonidine HCl 0.1 mg tablet RxNorm: 796389 1 Tablet(s) PO BID 12/29/2017 04/11/2018 Inactive Lipitor 10 mg tablet RxNorm: 651400 1 Tablet(s) PO QPM 12/29/2017 12/29/2017 Inactive OKAY TO DISPENSE GENERIC metoprolol tartrate 50 mg tablet RxNorm: 676403 1/2 Tablet(s) PO BID 12/29/2017 12/01/2018 Inactive alprazolam 0.5 mg tablet RxNorm: 965104 1 Tablet(s) PO TID as needed anxiety 11/18/2017 05/16/2018 Inactive glimepiride 4 mg tablet RxNorm: 528619 1 TABLET(S) PO DAILY 11/15/2017 10/11/2018 Inactive alprazolam 0.5 mg tablet RxNorm: 660324 1 Tablet(s) PO TID as needed anxiety 09/20/2017 11/17/2017 Inactive Zithromax Z-Juan 250 mg tablet RxNorm: 469912 1 Tablet(s) PO UD 09/20/2017 12/28/2017 Inactive Zithromax Z-Juan 250 mg tablet RxNorm: 713233 1 Tablet(s) PO UD 09/14/2017 09/19/2017 Inactive clonidine HCl 0.1 mg tablet RxNorm: 374177 1/2 Tablet(s) PO BID 08/24/2017 12/28/2017 Inactive amlodipine 10 mg tablet RxNorm: 814224 1 Tablet(s) PO daily 08/24/2017 08/18/2018 Inactive erythromycin 5 mg/gram (0.5 %) eye ointment RxNorm: 063386 1 Gram(s) ophthalmic (eye) QID left eye cyst 08/24/2017 09/06/2017 Inactive losartan 100 mg tablet RxNorm: 283235 1 Tablet(s) PO daily for high blood pressure 08/16/2017 08/10/2018 Inactive metoprolol tartrate 50 mg tablet RxNorm: 805776 1/2 Tablet(s) PO BID 07/26/2017 12/28/2017 Inactive clonidine HCl 0.1 mg tablet RxNorm: 531791 1/2 Tablet(s) PO BID 07/26/2017 08/23/2017 Inactive metoprolol tartrate 50 mg tablet RxNorm: 197209 1 Tablet(s) PO BID 07/21/2017 07/25/2017 Inactive amlodipine 10 mg tablet RxNorm: 742573 1 TABLET(S) PO DAILY 06/29/2017 08/23/2017 Inactive Lipitor 10 mg tablet RxNorm: 346868 1 Tablet(s) PO QPM 05/27/2017 12/28/2017 Inactive OKAY TO DISPENSE GENERIC alprazolam 0.5 mg tablet RxNorm: 442499 1 Tablet(s) PO TID as needed anxiety 05/18/2017 08/15/2017 Inactive hydrochlorothiazide 12.5 mg tablet RxNorm: 716799 1 Tablet(s) PO daily 04/22/2017 05/21/2017 Inactive hydrochlorothiazide 12.5 mg tablet RxNorm: 118303 1 Tablet(s) PO daily 04/22/2017 04/21/2017 Inactive Cipro 500 mg tablet RxNorm: 761063 1 Tablet(s) PO BID 04/16/2017 04/22/2017 Inactive Zofran 4 mg tablet RxNorm: 457520 1 Tablet(s) PO BID as needed nausea and vomitting 04/15/2017 04/19/2017 Inactive Lipitor 10 mg tablet RxNorm: 233181 1 Tablet(s) PO QPM 03/30/2017 05/26/2017 Inactive OKAY TO DISPENSE GENERIC Kenalog 40 mg/mL suspension for injection RxNorm: 0438993 1 Milliliter(s) Inj 03/16/2017 03/16/2017 Inactive doxazosin 4 mg tablet RxNorm: 071821 1.5 Tablet(s) PO BID 03/16/2017 05/02/2017 Inactive prednisone 10 mg tablets in a dose pack RxNorm: 009137 Tablet(s) take dose pack as directed PO take with food 03/16/2017 05/23/2017 Inactive Kenalog 40 mg/mL suspension for injection RxNorm: 9495496 Milliliter(s) Inj 03/12/2017 03/12/2017 Inactive Zithromax Z-Juan 250 mg tablet RxNorm: 599926 1 Tablet(s) PO daily 03/11/2017 03/10/2017 Inactive zpack as directed Zithromax Z-Juan 250 mg tablet RxNorm: 921148 1 Tablet(s) PO daily 03/11/2017 03/15/2017 Inactive zpack as directed doxazosin 4 mg tablet RxNorm: 832411 1.5 Tablet(s) PO BID 02/12/2017 03/15/2017 Inactive fluticasone 50 mcg/actuation nasal spray,suspension RxNorm: 5856401 1 SPRAY NASAL BID 02/05/2017 05/05/2018 Inactive metoprolol tartrate 75 mg tablet RxNorm: 2369103 1 Tablet(s) PO BID 01/29/2017 07/19/2017 Inactive metoprolol tartrate 75 mg tablet RxNorm: 2276003 1 Tablet(s) PO BID 01/29/2017 01/28/2017 Inactive doxazosin 4 mg tablet RxNorm: 666551 1 Tablet(s) PO BID 01/20/2017 02/11/2017 Inactive pantoprazole 40 mg tablet,delayed release RxNorm: 723727 1 Tablet(s) PO daily 12/24/2016 01/19/2017 Inactive pantoprazole 40 mg tablet,delayed release RxNorm: 786725 1 Tablet(s) PO daily 12/24/2016 12/23/2016 Inactive alprazolam 0.5 mg tablet RxNorm: 072465 1 Tablet(s) PO TID as needed anxiety 12/03/2016 04/01/2017 Inactive fluticasone 50 mcg/actuation nasal spray,suspension RxNorm: 0131026 1 [place] NASAL BID 11/25/2016 12/24/2016 Inactive Dexilant 60 mg capsule, delayed release RxNorm: 323329 1 Capsule(s) PO daily 11/25/2016 11/24/2016 Inactive fluticasone 50 mcg/actuation nasal spray,suspension RxNorm: 8650996 1 [place] NASAL BID 11/25/2016 11/24/2016 Inactive fluticasone 50 mcg/actuation nasal spray,suspension RxNorm: 7668679 1 [place] NASAL BID 11/25/2016 11/24/2016 Inactive Dexilant 60 mg capsule, delayed release RxNorm: 987309 1 Capsule(s) PO daily 11/25/2016 12/23/2016 Inactive ProAir RespiClick 90 mcg/actuation breath activated RxNorm: 5843770 1 INH bid and QID as needed 11/19/2016 05/17/2017 Inactive Please send STAT Flonase Allergy Relief 50 mcg/actuation nasal spray,suspension RxNorm: 9592630 1 [place] NASAL BID 11/19/2016 11/24/2016 Inactive glimepiride 4 mg tablet RxNorm: 689399 1 Tablet(s) PO daily 11/19/2016 11/13/2017 Inactive metoprolol tartrate 50 mg tablet RxNorm: 742726 1 Tablet(s) PO BID 11/19/2016 01/28/2017 Inactive Flonase Allergy Relief 50 mcg/actuation nasal spray,suspension RxNorm: 4764445 1 [place] NASAL BID 11/17/2016 11/18/2016 Inactive metoprolol tartrate 50 mg tablet RxNorm: 482926 1 Tablet(s) PO BID 11/17/2016 11/18/2016 Inactive ProAir RespiClick 90 mcg/actuation breath activated RxNorm: 8008725 1 INH bid and QID as needed 11/17/2016 11/16/2016 Inactive glimepiride 4 mg tablet RxNorm: 711519 1 Tablet(s) PO daily 11/17/2016 11/18/2016 Inactive ProAir RespiClick 90 mcg/actuation breath activated RxNorm: 3548410 1 INH bid and QID as needed 11/17/2016 11/18/2016 Inactive Please send STAT Kenalog 40 mg/mL suspension for injection RxNorm: 6284843 1 Milliliter(s) Inj 11/05/2016 11/05/2016 Inactive azithromycin 250 mg tablet RxNorm: 512188 Tablet(s) PO 2 tabs on day #1, then daily x 4 days 11/05/2016 12/23/2016 Inactive doxazosin 4 mg tablet RxNorm: 234566 1 Tablet(s) PO QPM 10/02/2016 01/19/2017 Inactive doxazosin 4 mg tablet RxNorm: 761723 1 Tablet(s) PO QPM 09/29/2016 10/01/2016 Inactive doxazosin 4 mg tablet RxNorm: 361308 1 Tablet(s) PO QPM 09/21/2016 09/28/2016 Inactive Cipro 500 mg tablet RxNorm: 542947 1 Tablet(s) PO BID 09/18/2016 09/17/2016 Inactive Cipro 500 mg tablet RxNorm: 263501 1 Tablet(s) PO BID 09/18/2016 09/24/2016 Inactive losartan 100 mg tablet RxNorm: 638064 1 Tablet(s) PO daily for high blood pressure 09/16/2016 09/15/2016 Inactive alprazolam 0.5 mg tablet RxNorm: 173028 1 Tablet(s) PO TID as needed anxiety 09/16/2016 11/14/2016 Inactive losartan 100 mg tablet RxNorm: 051432 1 Tablet(s) PO daily for high blood pressure 09/16/2016 08/15/2017 Inactive amlodipine 10 mg tablet RxNorm: 530422 1 Tablet(s) PO daily 08/03/2016 06/28/2017 Inactive Zyrtec 10 mg tablet RxNorm: 3691016 1 Tablet(s) PO daily 08/03/2016 09/15/2016 Inactive losartan 25 mg tablet RxNorm: 966113 1 Tablet(s) PO daily 07/08/2016 09/15/2016 Inactive Lipitor 10 mg tablet RxNorm: 783315 1 Tablet(s) PO QPM 07/08/2016 07/17/2016 Inactive OKAY TO DISPENSE GENERIC Lipitor 10 mg tablet RxNorm: 888666 1 Tablet(s) PO QPM 07/06/2016 07/07/2016 Inactive OKAY TO DISPENSE GENERIC losartan 25 mg tablet RxNorm: 323916 1 Tablet(s) PO daily 07/06/2016 07/07/2016 Inactive meclizine 25 mg tablet RxNorm: 008435 1 Tablet(s) PO TID as needed No Start Date Active Parafon Forte DSC 500 mg tablet RxNorm: 619114 1 Tablet(s) PO QID No Start Date Active Pazeo 0.7 % eye drops RxNorm: 9292127 Drop(s) ophthalmic (eye) as needed dry eyes No Start Date Active Zithromax Z-Juan 250 mg tablet RxNorm: 192546 1 Tablet(s) PO UD No Start Date 09/13/2017 Inactive glimepiride 4 mg tablet RxNorm: 984299 1 Tablet(s) PO daily No Start Date 11/16/2016 Inactive metoprolol tartrate 100 mg tablet RxNorm: 774273 1 Tablet(s) PO BID No Start Date 07/21/2017 Inactive naproxen 500 mg tablet RxNorm: 407384 1 Tablet(s) PO BID No Start Date 03/23/2017 Inactive amlodipine 5 mg tablet RxNorm: 405229 1 Tablet(s) PO daily No Start Date 08/02/2016 Inactive metoprolol tartrate 50 mg tablet RxNorm: 655707 1 Tablet(s) PO BID No Start Date 11/16/2016 Inactive Medication Administered Medication Codes Instructions Start Date Status Kenalog 40 mg/mL suspension for injection RxNorm: 6907099 Milliliter 01/02/2019 No longer Active Kenalog 40 mg/mL suspension for injection RxNorm: 0460156 1Milliliter 10/12/2018 No longer Active Kenalog 40 mg/mL suspension for injection RxNorm: 1058452 1Milliliter 03/16/2017 No longer Active Kenalog 40 mg/mL suspension for injection RxNorm: 9463560 Milliliter 03/12/2017 No longer Active Kenalog 40 mg/mL suspension for injection RxNorm: 2090007 1Milliliter 11/05/2016 No longer Active Immunizations Vaccine [...] Lipid Ord30 C/HDL 3.1 Ratio 08/18/2018 Microalbumin Jdz223 MicroAlb 7.5 mg/dL 08/18/2018 Cbc With Differential [...] 29.6 pg 08/18/2018 Cbc With Differential Ord2 Foard% 10.6 % 08/18/2018 Cbc With Differential Ord2 [...] 1.69 K/ul 08/18/2018 Cbc With Differential Ord2 Foard ABS# 0.6 K/ul 08/18/2018 Cbc With Differential Ord2 Eos ABS# 0.3 K/ul 08/18/2018 Cbc With Differential Ord2 Baso ABS# 0.0 K/ul 08/18/2018 Comp Metabolic Hzy071 NA 137 mEq/L 08/18/2018 Comp Metabolic Ovn967 K 3.8 mEq/L 08/18/2018 Comp Metabolic Npl578 CL 103 mEq/L 08/18/2018 Comp Metabolic Srx372 CO2 26.0 mEq/L 08/18/2018 Comp Metabolic Nsi743 ANION GAP 12 08/18/2018 Comp Metabolic Xea703 GLUCOSE 110 mg/dL 08/18/2018 Comp Metabolic Tjq586 Creat 1.2 mg/dL 08/18/2018 Comp Metabolic Rmc583 eGFR 47 ml/min/1.73m2 08/18/2018 Comp Metabolic Uof977 BUN 25 mg/dL 08/18/2018 Comp Metabolic Gbl490 B/C Ratio 21.0 Ratio 08/18/2018 Comp Metabolic Ywb332 CALCIUM 9.4 mg/dL 08/18/2018 Comp Metabolic Afh637 ALK PHOS 99 U/L 08/18/2018 Comp Metabolic Rck484 AST(SGOT) 31 U/L 08/18/2018 Comp Metabolic Qcd399 ALT(SGPT) 27 U/L 08/18/2018 Comp Metabolic Goz075 BILI T 0.7 mg/dL 08/18/2018 Comp Metabolic Vof054 ALBUMIN 4.2 g/dL 08/18/2018 Comp Metabolic Uqg029 TPRO 6.7 g/dL 08/18/2018 Comp Metabolic Emi005 GLOB 2.5 g/dL 08/18/2018 Comp Metabolic Tfg581 A/G Ratio 1.7 Ratio 08/18/2018 Comp Metabolic Ztd634 Osmo 279 mOsmo 08/18/2018 %Hba1C Hzj119 % HbA1c 18240- 6 6.1 % 08/18/2018 %Hba1C Qut910 Gluc Ave 128 mg/dL 08/18/2018 Tsh Ord6 TSH (3rd IS) 3.93 uIU/mL 08/18/2018 Lipid Ord30 CHOL 146 mg/dL 04/15/2018 Lipid Ord30 HDL 62.0 mg/dl 04/15/2018 Lipid Ord30 TRIG 88 mg/dL 04/15/2018 Lipid Ord30 LDL 66 mg/dL 04/15/2018 Lipid Ord30 C/HDL 2.4 Ratio 04/15/2018 %Hba1C Sep652 % HbA1c 72692- 6 6.3 % 04/15/2018 %Hba1C Skq320 Gluc Ave 134 mg/dL 04/15/2018 Cbc With [...] 30.2 pg 04/15/2018 Cbc With Differential Ord2 Foard% 6.8 % 04/15/2018 Cbc With Differential Ord2 [...] 2.10 K/ul 04/15/2018 Cbc With Differential Ord2 Foard ABS# 0.5 K/ul 04/15/2018 Cbc With Differential Ord2 Eos ABS# 0.2 K/ul 04/15/2018 Cbc With Differential Ord2 Baso ABS# 0.0 K/ul 04/15/2018 Comp Metabolic Wrf395 NA 140 mEq/L 04/15/2018 Comp Metabolic Lty579 K 4.3 mEq/L 04/15/2018 Comp Metabolic Apm938 CL 106 mEq/L 04/15/2018 Comp Metabolic Dax642 CO2 23.0 mEq/L 04/15/2018 Comp Metabolic Jqv931 ANION GAP 15 04/15/2018 Comp Metabolic Adc006 GLUCOSE 90 mg/dL 04/15/2018 Comp Metabolic Tzm598 Creat 1.2 mg/dL 04/15/2018 Comp Metabolic Wgl760 eGFR 45 ml/min/1.73m2 04/15/2018 Comp Metabolic Xra989 BUN 28 mg/dL 04/15/2018 Comp Metabolic Bfw912 B/C Ratio 22.8 Ratio 04/15/2018 Comp Metabolic Snv601 CALCIUM 9.5 mg/dL 04/15/2018 Comp Metabolic Uso117 ALK PHOS 95 U/L 04/15/2018 Comp Metabolic Jnd235 AST(SGOT) 20 U/L 04/15/2018 Comp Metabolic Nke556 ALT(SGPT) 13 U/L 04/15/2018 Comp Metabolic Xld337 BILI T 0.5 mg/dL 04/15/2018 Comp Metabolic Coa354 ALBUMIN 4.1 g/dL 04/15/2018 Comp Metabolic Ypo518 TPRO 6.6 g/dL 04/15/2018 Comp Metabolic Amz942 GLOB 2.5 g/dL 04/15/2018 Comp Metabolic Atl460 A/G Ratio 1.6 Ratio 04/15/2018 Comp Metabolic Exo961 Osmo 284 mOsmo 04/15/2018 Comp Metabolic Ijr189 NA 137 mEq/L 02/04/2018 Comp Metabolic Vro432 K 4.0 mEq/L 02/04/2018 Comp Metabolic Jzd890 CL 104 mEq/L 02/04/2018 Comp Metabolic Lst938 CO2 27.0 mEq/L 02/04/2018 Comp Metabolic Yme522 ANION GAP 10 02/04/2018 Comp Metabolic Aii176 GLUCOSE 212 mg/dL 02/04/2018 Comp Metabolic Nwo534 Creat 1.2 mg/dL 02/04/2018 Comp Metabolic Wvo810 eGFR 47 ml/min/1.73m2 02/04/2018 Comp Metabolic Lco342 BUN 20 mg/dL 02/04/2018 Comp Metabolic Afx733 B/C Ratio 16.8 Ratio 02/04/2018 Comp Metabolic Wwn922 CALCIUM 8.9 mg/dL 02/04/2018 Comp Metabolic Jau051 ALK PHOS 107 U/L 02/04/2018 Comp Metabolic Kof429 AST(SGOT) 17 U/L 02/04/2018 Comp Metabolic Tmt596 ALT(SGPT) 11 U/L 02/04/2018 Comp Metabolic Vcv313 BILI T 0.4 mg/dL 02/04/2018 Comp Metabolic Ssb232 ALBUMIN 3.8 g/dL 02/04/2018 Comp Metabolic Lxg118 TPRO 6.2 g/dL 02/04/2018 Comp Metabolic Mcc783 GLOB 2.4 g/dL 02/04/2018 Comp Metabolic Lmq328 A/G Ratio 1.6 Ratio 02/04/2018 Comp Metabolic Azk101 Osmo 283 mOsmo 02/04/2018 %Hba1C Tsb525 % HbA1c 77488- 6 6.3 % 12/30/2017 %Hba1C Flh980 Gluc Ave 134 mg/dL 12/30/2017 Comp Metabolic Jdw040 NA 142 mEq/L 12/30/2017 Comp Metabolic Hno528 K 4.4 mEq/L 12/30/2017 Comp Metabolic Pbp785 CL 103 mEq/L 12/30/2017 Comp Metabolic Rpk310 CO2 31.0 mEq/L 12/30/2017 Comp Metabolic Qhv952 ANION GAP 12 12/30/2017 Comp Metabolic Tqc854 GLUCOSE 119 mg/dL 12/30/2017 Comp Metabolic Cln224 Creat 1.4 mg/dL 12/30/2017 Comp Metabolic Zrt635 eGFR 41 ml/min/1.73m2 12/30/2017 Comp Metabolic Gij492 BUN 27 mg/dL 12/30/2017 Comp Metabolic Xsc374 B/C Ratio 20.0 Ratio 12/30/2017 Comp Metabolic Llu281 CALCIUM 9.9 mg/dL 12/30/2017 Comp Metabolic Gvm933 ALK PHOS 106 U/L 12/30/2017 Comp Metabolic Fag357 AST(SGOT) 20 U/L 12/30/2017 Comp Metabolic Vyw392 ALT(SGPT) 13 U/L 12/30/2017 Comp Metabolic Xyz033 BILI T 0.7 mg/dL 12/30/2017 Comp Metabolic Peu687 ALBUMIN 4.2 g/dL 12/30/2017 Comp Metabolic Ysh814 TPRO 6.7 g/dL 12/30/2017 Comp Metabolic Lti907 GLOB 2.6 g/dL 12/30/2017 Comp Metabolic Xjt937 A/G Ratio 1.6 Ratio 12/30/2017 Comp Metabolic Vlf978 Osmo 289 mOsmo 12/30/2017 Lipid Ord30 CHOL 167 mg/dL 12/30/2017 Lipid Ord30 HDL 63.0 mg/dl 12/30/2017 Lipid Ord30 TRIG 89 mg/dL 12/30/2017 Lipid Ord30 LDL 86 mg/dL 12/30/2017 Lipid Ord30 C/HDL 2.7 Ratio 12/30/2017 Urine Culture Ucult Preliminary NO Growth Day 1 04/17/2017 Urine Culture Ucult Complete NO Growth Day 2 04/17/2017 Comp Metabolic Qpd662 NA 143 mEq/L 04/15/2017 Comp Metabolic Pka602 K 4.6 mEq/L 04/15/2017 Comp Metabolic Rip843 CL 110 mEq/L 04/15/2017 Comp Metabolic Vbo017 CO2 30.0 mEq/L 04/15/2017 Comp Metabolic Wmb330 ANION GAP 8 04/15/2017 Comp Metabolic Ggo788 GLUCOSE 159 mg/dL 04/15/2017 Comp Metabolic Nvc074 Creat 1.1 mg/dL 04/15/2017 Comp Metabolic Dlp655 eGFR 54 ml/min/1.73m2 04/15/2017 Comp Metabolic Qic044 BUN 27 mg/dL 04/15/2017 Comp Metabolic Sep716 B/C Ratio 25.7 Ratio 04/15/2017 Comp Metabolic Wry894 CALCIUM 9.4 mg/dL 04/15/2017 Comp Metabolic Yyu826 ALK PHOS 93 U/L 04/15/2017 Comp Metabolic Shi901 AST(SGOT) 19 U/L 04/15/2017 Comp Metabolic Fhl521 ALT(SGPT) 18 U/L 04/15/2017 Comp Metabolic Hpg592 BILI T 0.6 mg/dL 04/15/2017 Comp Metabolic Ldk075 ALBUMIN 3.9 g/dL 04/15/2017 Comp Metabolic Rxq458 TPRO 6.5 g/dL 04/15/2017 Comp Metabolic Xrf805 GLOB 2.6 g/dL 04/15/2017 Comp Metabolic Bnk719 A/G Ratio 1.5 Ratio 04/15/2017 Comp Metabolic Ddo874 Osmo 293 mOsmo 04/15/2017 Tsh Ord6 hTSH II 2.05 uIU/mL 04/15/2017 %Hba1C Zgd347 % HbA1c 98059- 6 6.3 % 04/15/2017 %Hba1C Ebw059 Gluc Ave 134 mg/dL 04/15/2017 Cbc With [...] 29.0 pg 04/15/2017 Cbc With Differential Ord2 Foard% 6.9 % 04/15/2017 Cbc With Differential Ord2 [...] 1.58 K/ul 04/15/2017 Cbc With Differential Ord2 [place]oard ABS# 0.5 K/ul 04/15/2017 Cbc With Differential [...] Ord28 U-Com Culture to follow 04/15/2017 %Hba1C Yhm811 % HbA1c 38026- 6 5.8 % 01/07/2017 %Hba1C Xjp347 Gluc Ave 120 mg/dL 01/07/2017 Urine Culture Ucult Preliminary NO Growth Day 1 09/21/2016 Urine Culture Ucult Complete NO Growth Day 2 09/21/2016 %Hba1C Vdz694 % HbA1c 55704- 6 6.0 % 09/17/2016 %Hba1C Guv686 Gluc Ave 126 mg/dL 09/17/2016 Comp Metabolic Afj512 NA 140 mEq/L 09/17/2016 Comp Metabolic Wuo685 K 4.1 mEq/L 09/17/2016 Comp Metabolic Pbp955 CL 105 mEq/L 09/17/2016 Comp Metabolic Mab632 CO2 29.0 mEq/L 09/17/2016 Comp Metabolic Wbs012 ANION GAP 10 09/17/2016 Comp Metabolic Wai337 GLUCOSE 89 mg/dL 09/17/2016 Comp Metabolic Bgl618 Creat 0.9 mg/dL 09/17/2016 Comp Metabolic Yyx969 eGFR 65 ml/min/1.73m2 09/17/2016 Comp Metabolic Wht693 BUN 20 mg/dL 09/17/2016 Comp Metabolic Ffh476 B/C Ratio 22.2 Ratio 09/17/2016 Comp Metabolic Cem570 CALCIUM 9.3 mg/dL 09/17/2016 Comp Metabolic Puz566 ALK PHOS 107 U/L 09/17/2016 Comp Metabolic Hbe380 AST(SGOT) 22 U/L 09/17/2016 Comp Metabolic Skx105 ALT(SGPT) 15 U/L 09/17/2016 Comp Metabolic Tog823 BILI T 0.7 mg/dL 09/17/2016 Comp Metabolic Tzh029 ALBUMIN 4.0 g/dL 09/17/2016 Comp Metabolic Sea392 TPRO 6.8 g/dL 09/17/2016 Comp Metabolic Ehy797 GLOB 2.8 g/dL 09/17/2016 Comp Metabolic Nfu500 A/G Ratio 1.4 Ratio 09/17/2016 Comp Metabolic Hgn341 Osmo 281 mOsmo 09/17/2016 Microalbumin Kwg190 MicroAlb 44.3 mg/dL 09/17/2016 Tsh Ord6 hTSH [...] 29.0 pg 09/17/2016 Cbc With Differential Ord2 Foard% 8.1 % 09/17/2016 Cbc With Differential Ord2 [...] 1.78 K/ul 09/17/2016 Cbc With Differential Ord2 Foard ABS# 0.6 K/ul 09/17/2016 Cbc With Differential [...] Procedure Codes Date THER/PROPH/DIAG INJ SC/IM CPT-4: 35956 01/02/2019 TRIAMCINOLONE ACET INJ NOS CPT-4: J3301 01/02/2019 TRIAMCINOLONE ACET INJ NOS CPT-4: J3301 10/12/2018 THER/PROPH/DIAG INJ SC/IM CPT-4: 37403 10/12/2018 PPPS, SUBSEQ VISIT CPT- 4: G0439 09/06/2018 URINALYSIS NONAUTO W/O SCOPE CPT-4: 09936 12/29/2017 PPPS, SUBSEQ VISIT CPT- 4: G0439 03/30/2017 THER/PROPH/DIAG INJ SC/IM CPT-4: 52984 03/16/2017 TRIAMCINOLONE ACET INJ NOS CPT-4: J3301 03/16/2017 THER/PROPH/DIAG INJ SC/IM CPT-4: 95650 03/12/2017 TRIAMCINOLONE ACET INJ NOS CPT-4: J3301 03/12/2017 THER/PROPH/DIAG INJ SC/IM CPT-4: 88425 11/05/2016 TRIAMCINOLONE ACET INJ NOS CPT-4: J3301 11/05/2016 URINALYSIS NONAUTO W/O SCOPE CPT-4: 37864 09/18/2016 Vital Signs Date Vital 10/12/2018 Blood Pressure 1: 142/76 Code: 8480-6 BMI: 30.1 Code: 20076-6 Heart Rate 1: 83 bpm Height: 5'7" SpO2: 98% Weight: 192 lbs 09/06/2018 Blood Pressure 1: 142/66 Code: 8480-6 BMI: 30.9 Code: 71443-6 Heart Rate 1: 64 bpm Height: 5'7" SpO2: 98% Waist Measure (cm): 99 cm Weight: 197 lbs 08/16/2018 Blood Pressure 1: 140/70 Code: 8480-6 BMI: 34.4 Code: 53895-7 Heart Rate 1: 63 bpm Height: 5'7" SpO2: 95% Weight: 219 lbs 14 oz 04/12/2018 Blood Pressure 1: 160/70 Code: 8480-6 BMI: 33.0 Code: 70081-5 Heart Rate 1: 82 bpm Height: 5'7" SpO2: 95% Weight: 211 lbs 01/20/2018 Blood Pressure 1: 152/66 Code: 8480-6 BMI: 31.8 Code: 15665-4 Heart Rate 1: 52 bpm Height: 5'7" SpO2: 98% Temperature: 36.3 (C) / 97.3 (F) Weight: 203 lbs 12/29/2017 Blood Pressure 1: 168/72 Code: 8480-6 BMI: 32.1 Code: 65520-1 Heart Rate 1: 63 bpm Height: 5'7" SpO2: 98% Weight: 205 lbs 08/24/2017 Blood Pressure 1: 186/70 Code: 8480-6 Blood Pressure 1: 150/70 Code: 8480-6 BMI: 31.8 Code: 55062-0 Heart Rate 1: 53 bpm Height: 5'7" SpO2: 98% Weight: 203 lbs 07/26/2017 Blood Pressure 1: 206/78 Code: 8480-6 Blood Pressure 2: 210/84 Code: 8480-6 BMI: 32.0 Code: 75581-7 Heart Rate 1: 49 bpm Height: 5'7" SpO2: 97% Weight: 204 lbs 07/20/2017 Blood Pressure 1: 148/82 Code: 8480-6 Heart Rate 1: 90 bpm SpO2: 98% 05/27/2017 Blood Pressure 1: 142/72 Code: 8480-6 BMI: 30.5 Code: 39254-5 Heart Rate 1: 97 bpm Height: 5'7" [...] 1: 148/70 Code: 8480-6 BMI: 30.4 Code: 45565-5 Heart Rate 1: 54 bpm Height: 5'7" SpO2: 97% Weight: 194 lbs 03/30/2017 BMI: 33.2 Code: 24136-2 Height: 5'7" Weight: 212 lbs 03/16/2017 Blood Pressure 1: 140/80 Code: 8480-6 BMI: 34.0 Code: 48495-8 Heart Rate 1: 70 bpm Height: 5'7" SpO2: 95% Weight: 217 lbs 03/12/2017 Blood Pressure 1: 142/80 Code: 8480-6 BMI: 34.0 Code: 47386-3 Heart Rate 1: 76 bpm Height: 5'7" SpO2: 92% Weight: 217 lbs 02/17/2017 Blood Pressure 1: 162/64 Code: 8480-6 BMI: 32.9 Code: 52181-3 Heart Rate 1: 59 bpm Height: 5'7" SpO2: 97% Weight: 210 lbs 01/20/2017 Blood Pressure 1: 162/74 Code: 8480-6 BMI: 32.9 Code: 39756-7 Heart Rate 1: 56 bpm Height: 5'7" SpO2: 98% Weight: 210 lbs 11/17/2016 Blood Pressure 1: 156/60 Code: 8480-6 BMI: 34.8 Code: 67998-8 Heart Rate 1: 63 bpm Height: 5'7" SpO2: 96% Weight: 222 lbs 11/05/2016 Blood Pressure 1: 160/68 Code: 8480-6 BMI: 34.5 Code: 90979-4 Heart Rate 1: 66 bpm Height: 5'7" SpO2: 97% Temperature: 36.9 (C) / 98.5 (F) Weight: 220 lbs 09/21/2016 Blood Pressure 1: 180/72 Code: 8480-6 Blood Pressure 1: 166/72 Code: 8480-6 BMI: 32.1 Code: 91701-2 Heart Rate 1: 57 bpm Height: 5'7" SpO2: 98% Weight: 205 lbs 09/16/2016 Blood Pressure 1: 168/70 Code: 8480-6 Heart Rate 1: 49 bpm SpO2: 95% 08/03/2016 Blood Pressure 1: 162/70 Code: 8480-6 BMI: 32.0 Code: 31450-5 Heart Rate 1: 43 bpm Height: 5'7" SpO2: 98% Weight: 204 lbs 07/06/2016 Blood Pressure 1: 170/86 Code: 8480-6 BMI: 32.0 Code: 24367-4 Heart Rate 1: 48 bpm Height: 5'7" [...] data Encounters Encounter Performer Location Codes Date [id number] EST. PATIENT, LEVEL IV Diagnosis: Other acute sinusitis[ICD10: J01.80] Diagnosis: Other allergic rhinitis[ICD10: J30.89] [facility] CPT- 4: 13940 10/12/2018 [id number]) [id number] EST. PATIENT, LEVEL IV Diagnosis: Essential (primary) hypertension[ICD10: I10] Diagnosis: Type 2 diabetes mellitus without complications[ICD10: E11.9] Diagnosis: Mixed hyperlipidemia[ICD10: E78.2] [facility] CPT- 4: 13120 08/16/2018 [id number]) 92199 EST. PATIENT, LEVEL IV Diagnosis: Type 2 diabetes mellitus without complications[ICD10: E11.9] Diagnosis: Mixed hyperlipidemia[ICD10: E78.2] Diagnosis: Essential (primary) hypertension[ICD10: I10] Diagnosis: Dysuria[ICD10: R30.0] Diagnosis: Pain in left foot[ICD10: M79.672] [facility] CPT- 4: 62098 04/12/2018 [id number]) 94484 EST. PATIENT, LEVEL III Diagnosis: Otalgia, bilateral[ICD10: H92.03] Diagnosis: Other allergic rhinitis[ICD10: J30.89] Yuridia Camejo MD, [facility] CPT-4: 50782 01/20/2018 ([id number]) 02473 EST. PATIENT, LEVEL IV Diagnosis: Type 2 diabetes mellitus without complications[ICD10: E11.9] Diagnosis: Mixed hyperlipidemia[ICD10: E78.2] Diagnosis: Essential (primary) hypertension[ICD10: I10] Diagnosis: Dysuria[ICD10: R30.0] Fifi Camejo MD, [facility] CPT-4: 66480 12/29/2017 ([id number]) 19363 EST. PATIENT, LEVEL IV Diagnosis: Essential (primary) hypertension[ICD10: I10] Diagnosis: Cysts of left upper eyelid[ICD10: H02.824] Diagnosis: Pain in left foot[ICD10: M79.672] Fifi Camejo MD, [facility] CPT- 4: 24817 08/24/2017 ([id number]) 66898 EST. PATIENT, LEVEL III Diagnosis: Essential (primary) hypertension[ICD10: I10] Fifi Camejo MD, [facility] CPT-4: 66310 07/26/2017 ([id number]) Miscellaneous no charge Diagnosis: Essential (primary) hypertension[ICD10: I10] Fifi Camejo MD, [facility] CPT-4: 01190 07/20/2017 90126 EST. PATIENT, LEVEL III Diagnosis: Otalgia, bilateral[ICD10: H92.03] Diagnosis: Dizziness and giddiness[ICD10: R42] Diagnosis: Mixed hyperlipidemia[ICD10: E78.2] Krysta Camejo MD, [facility] CPT-4: 14586 05/27/2017 ([id number]) Miscellaneous no charge Diagnosis: Essential (primary) hypertension[ICD10: I10] Krysta Camejo MD, [facility] CPT-4: 45151 05/07/2017 ([id number]) 03776 EST. PATIENT, LEVEL IV Diagnosis: Otalgia, bilateral[ICD10: H92.03] Diagnosis: Dizziness and giddiness[ICD10: R42] Diagnosis: Orthostatic hypotension[ICD10: I95.1] Fifi Camejo MD, [facility] CPT-4: 84649 05/03/2017 [id number] EST. PATIENT, LEVEL IV Diagnosis: Essential (primary) hypertension[ICD10: I10] Diagnosis: Type 2 diabetes mellitus without complications[ICD10: E11.9] Diagnosis: Gastro-esophageal reflux disease without esophagitis[ICD10: K21.9] Diagnosis: Dizziness and giddiness[ICD10: R42] Diagnosis: Dysuria[ICD10: R30.0] Diagnosis: Other malaise[ICD10: R53.81] Krysta Camejo MD, [facility] CPT-4: 30972 04/15/2017 07975 19412 EST. PATIENT, LEVEL IV Diagnosis: Type 2 diabetes mellitus without complications[ICD10: E11.9] Diagnosis: Otalgia, bilateral[ICD10: H92.03] Diagnosis: Essential (primary) hypertension[ICD10: I10] Diagnosis: Other allergic rhinitis[ICD10: J30.89] Fifi Camejo MD, [facility] CPT-4: 04115 03/16/2017 87590 EST. PATIENT, LEVEL IV Diagnosis: Other acute sinusitis[ICD10: J01.80] Diagnosis: Acute suppurative otitis media without spontaneous rupture of ear drum, bilateral[ICD10: H66.003] Diagnosis: Other allergic rhinitis[ICD10: J30.89] Krysta Camejo MD, [facility] CPT- 4: 63980 03/12/2017 ([id number]) 84349 EST. PATIENT, LEVEL IV Diagnosis: Essential (primary) hypertension[ICD10: I10] Diagnosis: Type 2 diabetes mellitus without complications[ICD10: E11.9] Fifi Camejo MD, [facility] CPT-4: 30622 02/17/2017 ([id number]) 29983 EST. PATIENT, LEVEL IV Diagnosis: Essential (primary) hypertension[ICD10: I10] Diagnosis: Type 2 diabetes mellitus without complications[ICD10: E11.9] Fifi Camejo MD, [facility] CPT-4: 26477 01/20/2017 [id number]) 67048 EST. PATIENT, LEVEL IV Diagnosis: Essential (primary) hypertension[ICD10: I10] Diagnosis: Type 2 diabetes mellitus without complications[ICD10: E11.9] Diagnosis: Gastro-esophageal reflux disease without esophagitis[ICD10: K21.9] Fifi Camejo MD, [facility] CPT-4: 50948 11/17/2016 ([id number]) 23537 EST. PATIENT, LEVEL III Diagnosis: Acute bronchitis due to other specified organisms[ICD10: J20.8] Diagnosis: Cough[ICD10: R05] [facility] CPT-4: 21493 11/05/2016 ([id number]) 39416 EST. PATIENT, LEVEL IV Diagnosis: Essential (primary) hypertension[ICD10: I10] Diagnosis: Type 2 diabetes mellitus without complications[ICD10: E11.9] RANDALL Redmond MD CPT-4: 01533 09/21/2016 ([id number]) Miscellaneous no charge Diagnosis: Essential (primary) hypertension[ICD10: I10] RANDALL Redmond MD CPT-4: 32080 09/16/2016 ([id number]) 35792 EST. PATIENT, LEVEL III Diagnosis: Type 2 diabetes mellitus without complications[ICD10: E11.9] Diagnosis: Essential (primary) hypertension[ICD10: I10] Fifi Camejo MD, [facility] CPT-4: 22366 08/03/2016 ([id number]) OFFICE VISIT, NEW - LEVEL 4 Diagnosis: Essential (primary) hypertension[ICD10: I10] Diagnosis: Type 2 diabetes mellitus without complications[ICD10: E11.9] Diagnosis: Carpal tunnel syndrome, left upper limb[ICD10: G56.02] Diagnosis: Right upper quadrant pain[ICD10: R10.11] Diagnosis: Mixed hyperlipidemia[ICD10: E78.2] [facility] CPT- 4: 79583 07/06/2016 Plan of Care Planned Activity Notes [...] spray. 10/12/2018 Appointment: Krysta Dale WPtel: [phone] [facility] (30 min) Complex 10/12/2018 Patient Education: Patient [...] care surrogate. 09/06/2018 Appointment: Yuridia Walsh WPtel: [phone] [facility] - Annual Wellness Visit 09/06/2018 Patient Education: Patient Medication Summary Completed 09/06/2018 Appointment: Yuridia Walsh WPtel: [phone] [phone] [facility] - Annual Wellness Visit 08/29/2018 [...] dications. 08/16/2018 Appointment: Fifi Camejo WPtel: [phone] [facility] (15 min) Moderate 08/16/2018 Patient Education: Patient [...] foot. 04/12/2018 [phone] ([facility] Moderate 04/12/2018 Patient Education: Patient Medication Summary Completed 04/12/2018 Care Plan: Referral Order SNOMED-CT : [id number] Pending 04/12/2018 Patient Education: Patient Medication Summary [...] allergy spray. 01/20/2018 Appointment: Yuridia Walsh WPtel: [phone] [phone] (15 min) Moderate 01/20/2018 Patient Education: Patient [...] controlled. 12/29/2017 Appointment: Fifi Camejo WPtel: [phone] [facility] (15 min) Moderate 12/29/2017 Patient Education: Patient [...] - recommended referral to Dr. Anders in [place] 08/24/2017 Appointment: [phone] ([facility] min) Moderate 08/24/2017 Patient Education: Patient Medication Summary Completed 08/24/2017 Care Plan: Referral Order SNOMED-CT : [id number] Pending 08/24/2017 Visit Plan: Hypertension - uncontrolled [...] above. 07/26/2017 Appointment: [phone] ([facility] min) Moderate 07/26/2017 Patient Education: [...] to medications. 05/27/2017 App[facility]ment[phone] ([facility] min) Moderate 05/27/2017 Patient Education: Patient Medication Summary Completed 05/27/2017 Appointment: Nurse Visit 05/07/2017 Patient Education: Patient Medication Summary Completed 05/07/2017 Visit Plan: Persistent vergito with bilateral air-fluid levels and ear pain. Pt was seen by Dr. Calvo- she did not like his response to her complaints. I have recommended a referral to ENT in [place] or [place]. I suspect she may need myringotomy tubes. Pt to continue with flonase. Orthostatic hypotension - dc doxazosin. Monitor blood pressures at home. stop the doxazosin meclizine change to 1/2 pill three times a day come back on Wednesday for blood pressure check 05/03/2017 Appointment: [phone] ([facility] min) Moderate 05/03/2017 Patient Education: Patient Medication Summary Completed 05/03/2017 Appointment: [phone] [facility] (15 min) Moderate 04/21/2017 Visit Plan: [...] control. 04/15/2017 Appointment: [facility] Dale [facility]el[phone] ([facility] min) [facility] 04/15/2017 Patient Education: Patient Medication Summary Completed [...] surrogate. 03/30/2017 Appointment: Krysta Dale WPtel: [phone] [facility] [facility] - Annual Wellness Visit 03/30/2017 [...] home. 03/16/2017 Appointment: [phone] ([facility] min) Complex 03/16/2017 Patient Education: Patient Medication Summary Completed 03/16/2017 Patient Education: Obesity Completed 03/16/2017 Care Plan: Referral Order SNOMED-CT : [id number] Pending 03/16/2017 Visit Plan: Allergies - chronic [...] worsen. 03/12/2017 Appointment: [facility] Dale [facility]el[phone] (15 min) Moderate 03/12/2017 Patient Education: Patient [...] controlled. 02/17/2017 Appointment: Fifi Camejo WPtel: [phone] [facility] (30 min) Complex 02/17/2017 Patient Education: Patient [...] controlled. 01/20/2017 Appointment: Fifi Camejo WPtel: [phone] [facility] (30 min) Complex 01/20/2017 Patient Education: [...] dexilant 11/17/2016 Appointment: [phone] ([facility] min) Complex 11/17/2016 Patient Education: [...] 90-110 range. 09/21/2016 Appointment: Fifi Camejo WPtel: [facility] (15 min) Moderate 09/21/2016 Patient Education: Patient [...] time. 08/03/2016 Appointment: [phone] (15 min) Moderate 08/03/2016 Patient Education: [...] not improving. 07/06/2016 Appointment: Fifi Camejo WPtel[facility] [facility] 07/06/2016 Patient Education: Patient [...] [facility] Hypertension - well [...] if symptoms acutely worsen. . Hypertension - uncontrolled today in the [...] - recommended referral to Dr. Anders in [place] stop the doxazosin meclizine change to 1/2 pill three times a day come back on Wednesday for blood pressure check . Persistent vergito with bilateral air-fluid levels and ear pain. Pt was seen by Dr. Calvo- she did not like his response to her complaints. I have recommended a referral to ENT in [place] or [place]. I suspect she may need myringotomy tubes. Pt to continue with flonase. Orthostatic hypotension - dc doxazosin. Monitor blood pressures at home. stop the doxazosin meclizine change to 1/2 pill three times a day come back on Wednesday for blood pressure check . Hypertension - well controlled - continue [...] braces at night, call if not improving. increase clonidine to a full pill twice [...] readings are starting to become less controlled. INCREASE FLONASE TO TWICE DAILY zpack . [...] monitor your heart rate Consider referral for marketing effectiveness manager for possible stress test if needed. [...] monitor your heart rate Consider referral for marketing effectiveness manager for possible stress test if needed. [...] to allow for greater blood glucose control. Kenalog shot today. Flonase nasal spray twice [...] improve or if they acutely worsen. . Diabetes Mellitus - controlled - per [...] [employer] paperwork for health care surrogate. . Persistent vergito with bilateral air-fluid levels [...]
[2019-03-08] MEDS ORDERED: HYDROmorphone 2 MG/ML VIAL (DILAUDID) IVP ONE (16:30)
--- OUTSIDE RECORDS SUMMARY | 2019-03-08 16:33 | XMS REPORT | CCD ---
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 Architect Name Role Phone PP Unavailable CCM Unavailable Summary Purpose Interface Exchange Insurance Providers Payer name Policy type / Coverage type Covered alliance party ID Effective Begin Date Effective End Date WPS Medicare Part B Medicare Part B [id number] 2018 Unknown FOR LIFE WPS Medicare Part B [id number] Unknown Family history Father Diagnosis Age At Onset Cancer Unknown Brother Diagnosis Age At Onset Diabetes mellitus Type 2 Unknown Heart Attack Unknown Social History Social History Element Codes Description Effective Dates Marital status Unknown Wu 11/05/2016 Number of children Unknown 1 07/06/2016 Employment Unknown Retired 07/06/[address]: 129441455 Never smoker 07/06/[address]: 667217520 Never drinks alcohol 07/06/2016 Allergies, Adverse Reactions, Alerts Substance Reaction Codes Entered Date Inactivated Date Status Protonix hives RxNorm: 343871 09/06/2018 No Inactive Date Active IV DYE, [...] Instructions Zithromax Z-Juan 250 mg tablet RxNorm: 431126 1 Tablet(s) PO UD 01/03/2019 01/07/2019 Active zpack as directed Kenalog 40 mg/mL suspension for injection RxNorm: 1966456 Milliliter(s) Inj 01/02/2019 01/02/2019 Inactive Zithromax Z-Juan 250 mg tablet RxNorm: 172756 1 Tablet(s) PO UD 12/30/2018 01/02/2019 Inactive zpack as directed metoprolol tartrate 50 mg tablet RxNorm: 845309 1/2 TABLET(S) PO BID 12/02/2018 No Stop Date Active amlodipine 10 mg tablet RxNorm: 929670 TAKE 1 TABLET DAILY 10/24/2018 No Stop Date Active cefdinir 300 mg capsule RxNorm: 952210 1 Capsule(s) PO BID 10/19/2018 10/22/2018 Inactive Zithromax Z-Jaun 250 mg tablet RxNorm: 597360 1 Tablet(s) PO UD 10/19/2018 10/23/2018 Inactive zpack as directed glimepiride 4 mg tablet RxNorm: 028073 Tablet(s) 1 TABLET(S) PO DAILY 10/12/2018 No Stop Date Active cefdinir 300 mg capsule RxNorm: 660580 1 Capsule(s) PO BID 10/12/2018 10/18/2018 Inactive Zithromax Z-Juan 250 mg tablet RxNorm: 584375 1 Tablet(s) PO UD 10/12/2018 10/16/2018 Inactive zpack as directed Tessalon Perles 100 mg capsule RxNorm: 195944 2 Capsule(s) PO TID as needed cough 10/12/2018 10/16/2018 Inactive Kenalog 40 mg/mL suspension for injection RxNorm: 8039254 1 Milliliter(s) Inj 10/12/2018 10/12/2018 Inactive Zithromax Z-Juan 250 mg tablet RxNorm: 818695 1 Tablet(s) PO UD 08/22/2018 08/26/2018 Inactive zpack as directed clonidine HCl 0.1 mg tablet RxNorm: 147120 1 Tablet(s) PO QAM 08/16/2018 08/10/2019 Active losartan 100 mg tablet RxNorm: 452989 1 TABLET(S) PO DAILY FOR HIGH BLOOD PRESSURE 08/12/2018 No Stop Date Active alprazolam 0.5 mg tablet RxNorm: 755885 1 Tablet(s) PO TID as needed anxiety 06/30/2018 12/26/2018 Inactive fluticasone 50 mcg/actuation nasal spray,suspension RxNorm: 7850652 USE 1 SPRAY NASALLY TWICE A DAY 05/06/2018 No Stop Date Active clonidine HCl 0.1 mg tablet RxNorm: 414938 1 Tablet(s) PO BID 04/14/2018 08/15/2018 Inactive clonidine HCl 0.1 mg tablet RxNorm: 179615 1 Tablet(s) PO TID 04/12/2018 04/13/2018 Inactive Zithromax Z-Juan 250 mg tablet RxNorm: 559272 1 Tablet(s) PO UD 01/20/2018 08/21/2018 Inactive disregard first rx for 1 - patient needs 3 packs-please dispense generic azithromycin Zithromax Z-Juan 250 mg tablet RxNorm: 638079 1 Tablet(s) PO UD 01/20/2018 01/19/2018 Inactive Zithromax Z-Juan 250 mg tablet RxNorm: 125160 1 Tablet(s) PO UD 01/20/2018 01/19/2018 Inactive disregard first rx for 1 - patient needs 3 packs Zithromax Z-Juan 250 mg tablet RxNorm: 675807 1 Tablet(s) PO UD 01/20/2018 01/19/2018 Inactive atorvastatin 10 mg tablet RxNorm: 049893 1 Tablet(s) PO QPM 12/30/2017 12/24/2018 Inactive atorvastatin 10 mg tablet RxNorm: 398922 1 Tablet(s) PO QPM 12/30/2017 12/29/2017 Inactive clonidine HCl 0.1 mg tablet RxNorm: 822257 1 Tablet(s) PO BID 12/29/2017 04/11/2018 Inactive Lipitor 10 mg tablet RxNorm: 919797 1 Tablet(s) PO QPM 12/29/2017 12/29/2017 Inactive OKAY TO DISPENSE GENERIC metoprolol tartrate 50 mg tablet RxNorm: 730031 1/2 Tablet(s) PO BID 12/29/2017 12/01/2018 Inactive alprazolam 0.5 mg tablet RxNorm: 354469 1 Tablet(s) PO TID as needed anxiety 11/18/2017 05/16/2018 Inactive glimepiride 4 mg tablet RxNorm: 837997 1 TABLET(S) PO DAILY 11/15/2017 10/11/2018 Inactive alprazolam 0.5 mg tablet RxNorm: 974996 1 Tablet(s) PO TID as needed anxiety 09/20/2017 11/17/2017 Inactive Zithromax Z-Juan 250 mg tablet RxNorm: 969396 1 Tablet(s) PO UD 09/20/2017 12/28/2017 Inactive Zithromax Z-Juan 250 mg tablet RxNorm: 069308 1 Tablet(s) PO UD 09/14/2017 09/19/2017 Inactive clonidine HCl 0.1 mg tablet RxNorm: 754584 1/2 Tablet(s) PO BID 08/24/2017 12/28/2017 Inactive amlodipine 10 mg tablet RxNorm: 018135 1 Tablet(s) PO daily 08/24/2017 08/18/2018 Inactive erythromycin 5 mg/gram (0.5 %) eye ointment RxNorm: 423530 1 Gram(s) ophthalmic (eye) QID left eye cyst 08/24/2017 09/06/2017 Inactive losartan 100 mg tablet RxNorm: 598630 1 Tablet(s) PO daily for high blood pressure 08/16/2017 08/10/2018 Inactive metoprolol tartrate 50 mg tablet RxNorm: 719937 1/2 Tablet(s) PO BID 07/26/2017 12/28/2017 Inactive clonidine HCl 0.1 mg tablet RxNorm: 461182 1/2 Tablet(s) PO BID 07/26/2017 08/23/2017 Inactive metoprolol tartrate 50 mg tablet RxNorm: 709361 1 Tablet(s) PO BID 07/21/2017 07/25/2017 Inactive amlodipine 10 mg tablet RxNorm: 289218 1 TABLET(S) PO DAILY 06/29/2017 08/23/2017 Inactive Lipitor 10 mg tablet RxNorm: 397500 1 Tablet(s) PO QPM 05/27/2017 12/28/2017 Inactive OKAY TO DISPENSE GENERIC alprazolam 0.5 mg tablet RxNorm: 419751 1 Tablet(s) PO TID as needed anxiety 05/18/2017 08/15/2017 Inactive hydrochlorothiazide 12.5 mg tablet RxNorm: 389157 1 Tablet(s) PO daily 04/22/2017 05/21/2017 Inactive hydrochlorothiazide 12.5 mg tablet RxNorm: 504780 1 Tablet(s) PO daily 04/22/2017 04/21/2017 Inactive Cipro 500 mg tablet RxNorm: 567112 1 Tablet(s) PO BID 04/16/2017 04/22/2017 Inactive Zofran 4 mg tablet RxNorm: 118333 1 Tablet(s) PO BID as needed nausea and vomitting 04/15/2017 04/19/2017 Inactive Lipitor 10 mg tablet RxNorm: 580998 1 Tablet(s) PO QPM 03/30/2017 05/26/2017 Inactive OKAY TO DISPENSE GENERIC Kenalog 40 mg/mL suspension for injection RxNorm: 5408475 1 Milliliter(s) Inj 03/16/2017 03/16/2017 Inactive doxazosin 4 mg tablet RxNorm: 544676 1.5 Tablet(s) PO BID 03/16/2017 05/02/2017 Inactive prednisone 10 mg tablets in a dose pack RxNorm: 323359 Tablet(s) take dose pack as directed PO take with food 03/16/2017 05/23/2017 Inactive Kenalog 40 mg/mL suspension for injection RxNorm: 1592503 Milliliter(s) Inj 03/12/2017 03/12/2017 Inactive Zithromax Z-Juan 250 mg tablet RxNorm: 076747 1 Tablet(s) PO daily 03/11/2017 03/10/2017 Inactive zpack as directed Zithromax Z-Juan 250 mg tablet RxNorm: 454388 1 Tablet(s) PO daily 03/11/2017 03/15/2017 Inactive zpack as directed doxazosin 4 mg tablet RxNorm: 118283 1.5 Tablet(s) PO BID 02/12/2017 03/15/2017 Inactive fluticasone 50 mcg/actuation nasal spray,suspension RxNorm: 5575475 1 SPRAY NASAL BID 02/05/2017 05/05/2018 Inactive metoprolol tartrate 75 mg tablet RxNorm: 9138207 1 Tablet(s) PO BID 01/29/2017 07/19/2017 Inactive metoprolol tartrate 75 mg tablet RxNorm: 8040305 1 Tablet(s) PO BID 01/29/2017 01/28/2017 Inactive doxazosin 4 mg tablet RxNorm: 850427 1 Tablet(s) PO BID 01/20/2017 02/11/2017 Inactive pantoprazole 40 mg tablet,delayed release RxNorm: 648140 1 Tablet(s) PO daily 12/24/2016 01/19/2017 Inactive pantoprazole 40 mg tablet,delayed release RxNorm: 593059 1 Tablet(s) PO daily 12/24/2016 12/23/2016 Inactive alprazolam 0.5 mg tablet RxNorm: 288523 1 Tablet(s) PO TID as needed anxiety 12/03/2016 04/01/2017 Inactive fluticasone 50 mcg/actuation nasal spray,suspension RxNorm: 2800753 1 Orange NASAL BID 11/25/2016 12/24/2016 Inactive Dexilant 60 mg capsule, delayed release RxNorm: 029760 1 Capsule(s) PO daily 11/25/2016 11/24/2016 Inactive fluticasone 50 mcg/actuation nasal spray,suspension RxNorm: 1342364 1 Orange NASAL BID 11/25/2016 11/24/2016 Inactive fluticasone 50 mcg/actuation nasal spray,suspension RxNorm: 6784597 1 Orange NASAL BID 11/25/2016 11/24/2016 Inactive Dexilant 60 mg capsule, delayed release RxNorm: 395368 1 Capsule(s) PO daily 11/25/2016 12/23/2016 Inactive ProAir RespiClick 90 mcg/actuation breath activated RxNorm: 6192151 1 INH bid and QID as needed 11/19/2016 05/17/2017 Inactive Please send STAT Flonase Allergy Relief 50 mcg/actuation nasal spray,suspension RxNorm: 3309749 1 Orange NASAL BID 11/19/2016 11/24/2016 Inactive glimepiride 4 mg tablet RxNorm: 278145 1 Tablet(s) PO daily 11/19/2016 11/13/2017 Inactive metoprolol tartrate 50 mg tablet RxNorm: 273009 1 Tablet(s) PO BID 11/19/2016 01/28/2017 Inactive Flonase Allergy Relief 50 mcg/actuation nasal spray,suspension RxNorm: 7855965 1 Orange NASAL BID 11/17/2016 11/18/2016 Inactive metoprolol tartrate 50 mg tablet RxNorm: 345454 1 Tablet(s) PO BID 11/17/2016 11/18/2016 Inactive ProAir RespiClick 90 mcg/actuation breath activated RxNorm: 3065033 1 INH bid and QID as needed 11/17/2016 11/16/2016 Inactive glimepiride 4 mg tablet RxNorm: 060819 1 Tablet(s) PO daily 11/17/2016 11/18/2016 Inactive ProAir RespiClick 90 mcg/actuation breath activated RxNorm: 9390976 1 INH bid and QID as needed 11/17/2016 11/18/2016 Inactive Please send STAT Kenalog 40 mg/mL suspension for injection RxNorm: 3640006 1 Milliliter(s) Inj 11/05/2016 11/05/2016 Inactive azithromycin 250 mg tablet RxNorm: 928164 Tablet(s) PO 2 tabs on day #1, then daily x 4 days 11/05/2016 12/23/2016 Inactive doxazosin 4 mg tablet RxNorm: 822643 1 Tablet(s) PO QPM 10/02/2016 01/19/2017 Inactive doxazosin 4 mg tablet RxNorm: 261576 1 Tablet(s) PO QPM 09/29/2016 10/01/2016 Inactive doxazosin 4 mg tablet RxNorm: 838054 1 Tablet(s) PO QPM 09/21/2016 09/28/2016 Inactive Cipro 500 mg tablet RxNorm: 515402 1 Tablet(s) PO BID 09/18/2016 09/17/2016 Inactive Cipro 500 mg tablet RxNorm: 853010 1 Tablet(s) PO BID 09/18/2016 09/24/2016 Inactive losartan 100 mg tablet RxNorm: 942672 1 Tablet(s) PO daily for high blood pressure 09/16/2016 09/15/2016 Inactive alprazolam 0.5 mg tablet RxNorm: 727856 1 Tablet(s) PO TID as needed anxiety 09/16/2016 11/14/2016 Inactive losartan 100 mg tablet RxNorm: 922297 1 Tablet(s) PO daily for high blood pressure 09/16/2016 08/15/2017 Inactive amlodipine 10 mg tablet RxNorm: 268379 1 Tablet(s) PO daily 08/03/2016 06/28/2017 Inactive Zyrtec 10 mg tablet RxNorm: 4653090 1 Tablet(s) PO daily 08/03/2016 09/15/2016 Inactive losartan 25 mg tablet RxNorm: 481960 1 Tablet(s) PO daily 07/08/2016 09/15/2016 Inactive Lipitor 10 mg tablet RxNorm: 185692 1 Tablet(s) PO QPM 07/08/2016 07/17/2016 Inactive OKAY TO DISPENSE GENERIC Lipitor 10 mg tablet RxNorm: 480119 1 Tablet(s) PO QPM 07/06/2016 07/07/2016 Inactive OKAY TO DISPENSE GENERIC losartan 25 mg tablet RxNorm: 698751 1 Tablet(s) PO daily 07/06/2016 07/07/2016 Inactive meclizine 25 mg tablet RxNorm: 979022 1 Tablet(s) PO TID as needed No Start Date Active Parafon Forte DSC 500 mg tablet RxNorm: 329412 1 Tablet(s) PO QID No Start Date Active Pazeo 0.7 % eye drops RxNorm: 1183851 Drop(s) ophthalmic (eye) as needed dry eyes No Start Date Active Zithromax Z-Juan 250 mg tablet RxNorm: 176201 1 Tablet(s) PO UD No Start Date 09/13/2017 Inactive glimepiride 4 mg tablet RxNorm: 685955 1 Tablet(s) PO daily No Start Date 11/16/2016 Inactive metoprolol tartrate 100 mg tablet RxNorm: 326506 1 Tablet(s) PO BID No Start Date 07/21/2017 Inactive naproxen 500 mg tablet RxNorm: 574768 1 Tablet(s) PO BID No Start Date 03/23/2017 Inactive amlodipine 5 mg tablet RxNorm: 355979 1 Tablet(s) PO daily No Start Date 08/02/2016 Inactive metoprolol tartrate 50 mg tablet RxNorm: 371598 1 Tablet(s) PO BID No Start Date 11/16/2016 Inactive Medication Administered Medication Codes Instructions Start Date Status Kenalog 40 mg/mL suspension for injection RxNorm: 9110377 Milliliter 01/02/2019 No longer Active Kenalog 40 mg/mL suspension for injection RxNorm: 5068525 1Milliliter 10/12/2018 No longer Active Kenalog 40 mg/mL suspension for injection RxNorm: 7700024 1Milliliter 03/16/2017 No longer Active Kenalog 40 mg/mL suspension for injection RxNorm: 3518832 Milliliter 03/12/2017 No longer Active Kenalog 40 mg/mL suspension for injection RxNorm: 5146659 1Milliliter 11/05/2016 No longer Active Immunizations Vaccine [...] Lipid Ord30 C/HDL 3.1 Ratio 08/18/2018 Microalbumin Wsv661 MicroAlb 7.5 mg/dL 08/18/2018 Cbc With Differential [...] 29.6 pg 08/18/2018 Cbc With Differential Ord2 [place]% 10.6 % 08/18/2018 Cbc With Differential Ord2 [...] 1.69 K/ul 08/18/2018 Cbc With Differential Ord2 [place] ABS# 0.6 K/ul 08/18/2018 Cbc With Differential Ord2 Eos ABS# 0.3 K/ul 08/18/2018 Cbc With Differential Ord2 Baso ABS# 0.0 K/ul 08/18/2018 Comp Metabolic Dcx512 NA 137 mEq/L 08/18/2018 Comp Metabolic Poq632 K 3.8 mEq/L 08/18/2018 Comp Metabolic Ias502 CL 103 mEq/L 08/18/2018 Comp Metabolic Cxj172 CO2 26.0 mEq/L 08/18/2018 Comp Metabolic Rjq583 ANION GAP 12 08/18/2018 Comp Metabolic Tdk567 GLUCOSE 110 mg/dL 08/18/2018 Comp Metabolic Zmm696 Creat 1.2 mg/dL 08/18/2018 Comp Metabolic Hoy745 eGFR 47 ml/min/1.73m2 08/18/2018 Comp Metabolic Fzb651 BUN 25 mg/dL 08/18/2018 Comp Metabolic Zfd983 B/C Ratio 21.0 Ratio 08/18/2018 Comp Metabolic Qon799 CALCIUM 9.4 mg/dL 08/18/2018 Comp Metabolic Wll174 ALK PHOS 99 U/L 08/18/2018 Comp Metabolic Tpr313 AST(SGOT) 31 U/L 08/18/2018 Comp Metabolic Vbh575 ALT(SGPT) 27 U/L 08/18/2018 Comp Metabolic Dci338 BILI T 0.7 mg/dL 08/18/2018 Comp Metabolic Orz916 ALBUMIN 4.2 g/dL 08/18/2018 Comp Metabolic Top323 TPRO 6.7 g/dL 08/18/2018 Comp Metabolic Lbv192 GLOB 2.5 g/dL 08/18/2018 Comp Metabolic Trk115 A/G Ratio 1.7 Ratio 08/18/2018 Comp Metabolic Xge662 Osmo 279 mOsmo 08/18/2018 %Hba1C Vdr064 % HbA1c 27349- 6 6.1 % 08/18/2018 %Hba1C Ibk715 Gluc Ave 128 mg/dL 08/18/2018 Tsh Ord6 TSH (3rd IS) 3.93 uIU/mL 08/18/2018 Lipid Ord30 CHOL 146 mg/dL 04/15/2018 Lipid Ord30 HDL 62.0 mg/dl 04/15/2018 Lipid Ord30 TRIG 88 mg/dL 04/15/2018 Lipid Ord30 LDL 66 mg/dL 04/15/2018 Lipid Ord30 C/HDL 2.4 Ratio 04/15/2018 %Hba1C Dei738 % HbA1c 45002- 6 6.3 % 04/15/2018 %Hba1C Fmc200 Gluc Ave 134 mg/dL 04/15/2018 Cbc With [...] 30.2 pg 04/15/2018 Cbc With Differential Ord2 [place]% 6.8 % 04/15/2018 Cbc With Differential Ord2 [...] 2.10 K/ul 04/15/2018 Cbc With Differential Ord2 [place] ABS# 0.5 K/ul 04/15/2018 Cbc With Differential Ord2 Eos ABS# 0.2 K/ul 04/15/2018 Cbc With Differential Ord2 Baso ABS# 0.0 K/ul 04/15/2018 Comp Metabolic Ueq559 NA 140 mEq/L 04/15/2018 Comp Metabolic Bgo600 K 4.3 mEq/L 04/15/2018 Comp Metabolic Qdk927 CL 106 mEq/L 04/15/2018 Comp Metabolic Qsy282 CO2 23.0 mEq/L 04/15/2018 Comp Metabolic Mjg758 ANION GAP 15 04/15/2018 Comp Metabolic Xgw766 GLUCOSE 90 mg/dL 04/15/2018 Comp Metabolic Ila100 Creat 1.2 mg/dL 04/15/2018 Comp Metabolic Vkj910 eGFR 45 ml/min/1.73m2 04/15/2018 Comp Metabolic Mvd391 BUN 28 mg/dL 04/15/2018 Comp Metabolic Vhq530 B/C Ratio 22.8 Ratio 04/15/2018 Comp Metabolic Xca014 CALCIUM 9.5 mg/dL 04/15/2018 Comp Metabolic Fnl071 ALK PHOS 95 U/L 04/15/2018 Comp Metabolic Jkg018 AST(SGOT) 20 U/L 04/15/2018 Comp Metabolic Ycx091 ALT(SGPT) 13 U/L 04/15/2018 Comp Metabolic Tkr516 BILI T 0.5 mg/dL 04/15/2018 Comp Metabolic Ssy683 ALBUMIN 4.1 g/dL 04/15/2018 Comp Metabolic Mvw651 TPRO 6.6 g/dL 04/15/2018 Comp Metabolic Yhs091 GLOB 2.5 g/dL 04/15/2018 Comp Metabolic Fjg223 A/G Ratio 1.6 Ratio 04/15/2018 Comp Metabolic Mkd634 Osmo 284 mOsmo 04/15/2018 Comp Metabolic Gog105 NA 137 mEq/L 02/04/2018 Comp Metabolic Yvw010 K 4.0 mEq/L 02/04/2018 Comp Metabolic Ztq845 CL 104 mEq/L 02/04/2018 Comp Metabolic Jvm106 CO2 27.0 mEq/L 02/04/2018 Comp Metabolic Zsr423 ANION GAP 10 02/04/2018 Comp Metabolic Ncl790 GLUCOSE 212 mg/dL 02/04/2018 Comp Metabolic Fcq657 Creat 1.2 mg/dL 02/04/2018 Comp Metabolic Ypn964 eGFR 47 ml/min/1.73m2 02/04/2018 Comp Metabolic Lrc396 BUN 20 mg/dL 02/04/2018 Comp Metabolic Nof089 B/C Ratio 16.8 Ratio 02/04/2018 Comp Metabolic Zbv811 CALCIUM 8.9 mg/dL 02/04/2018 Comp Metabolic Hfn857 ALK PHOS 107 U/L 02/04/2018 Comp Metabolic Ckm575 AST(SGOT) 17 U/L 02/04/2018 Comp Metabolic Kpi776 ALT(SGPT) 11 U/L 02/04/2018 Comp Metabolic Rfv045 BILI T 0.4 mg/dL 02/04/2018 Comp Metabolic Dqx876 ALBUMIN 3.8 g/dL 02/04/2018 Comp Metabolic Mdm048 TPRO 6.2 g/dL 02/04/2018 Comp Metabolic Exy345 GLOB 2.4 g/dL 02/04/2018 Comp Metabolic Nrn763 A/G Ratio 1.6 Ratio 02/04/2018 Comp Metabolic Tov669 Osmo 283 mOsmo 02/04/2018 %Hba1C Oxb495 % HbA1c 92853- 6 6.3 % 12/30/2017 %Hba1C Anu402 Gluc Ave 134 mg/dL 12/30/2017 Comp Metabolic Yli456 NA 142 mEq/L 12/30/2017 Comp Metabolic Xul354 K 4.4 mEq/L 12/30/2017 Comp Metabolic Hns446 CL 103 mEq/L 12/30/2017 Comp Metabolic Tvk477 CO2 31.0 mEq/L 12/30/2017 Comp Metabolic Omq354 ANION GAP 12 12/30/2017 Comp Metabolic Hqr600 GLUCOSE 119 mg/dL 12/30/2017 Comp Metabolic Ttw227 Creat 1.4 mg/dL 12/30/2017 Comp Metabolic Bjv575 eGFR 41 ml/min/1.73m2 12/30/2017 Comp Metabolic Rzz334 BUN 27 mg/dL 12/30/2017 Comp Metabolic Lvm256 B/C Ratio 20.0 Ratio 12/30/2017 Comp Metabolic Vbo705 CALCIUM 9.9 mg/dL 12/30/2017 Comp Metabolic Aff385 ALK PHOS 106 U/L 12/30/2017 Comp Metabolic Ztc304 AST(SGOT) 20 U/L 12/30/2017 Comp Metabolic Mar031 ALT(SGPT) 13 U/L 12/30/2017 Comp Metabolic Mpn277 BILI T 0.7 mg/dL 12/30/2017 Comp Metabolic Kyj152 ALBUMIN 4.2 g/dL 12/30/2017 Comp Metabolic Uup372 TPRO 6.7 g/dL 12/30/2017 Comp Metabolic Jor740 GLOB 2.6 g/dL 12/30/2017 Comp Metabolic Del592 A/G Ratio 1.6 Ratio 12/30/2017 Comp Metabolic Qto702 Osmo 289 mOsmo 12/30/2017 Lipid Ord30 CHOL 167 mg/dL 12/30/2017 Lipid Ord30 HDL 63.0 mg/dl 12/30/2017 Lipid Ord30 TRIG 89 mg/dL 12/30/2017 Lipid Ord30 LDL 86 mg/dL 12/30/2017 Lipid Ord30 C/HDL 2.7 Ratio 12/30/2017 Urine Culture Ucult Preliminary NO Growth Day 1 04/17/2017 Urine Culture Ucult Complete NO Growth Day 2 04/17/2017 Comp Metabolic Agp970 NA 143 mEq/L 04/15/2017 Comp Metabolic Rdy588 K 4.6 mEq/L 04/15/2017 Comp Metabolic Imh833 CL 110 mEq/L 04/15/2017 Comp Metabolic Oax036 CO2 30.0 mEq/L 04/15/2017 Comp Metabolic Qdp040 ANION GAP 8 04/15/2017 Comp Metabolic Fpj038 GLUCOSE 159 mg/dL 04/15/2017 Comp Metabolic Bck068 Creat 1.1 mg/dL 04/15/2017 Comp Metabolic Egk242 eGFR 54 ml/min/1.73m2 04/15/2017 Comp Metabolic Itw947 BUN 27 mg/dL 04/15/2017 Comp Metabolic Gvu825 B/C Ratio 25.7 Ratio 04/15/2017 Comp Metabolic Ceb827 CALCIUM 9.4 mg/dL 04/15/2017 Comp Metabolic Ddj106 ALK PHOS 93 U/L 04/15/2017 Comp Metabolic Rdm890 AST(SGOT) 19 U/L 04/15/2017 Comp Metabolic Iry250 ALT(SGPT) 18 U/L 04/15/2017 Comp Metabolic Mdv863 BILI T 0.6 mg/dL 04/15/2017 Comp Metabolic Qbo903 ALBUMIN 3.9 g/dL 04/15/2017 Comp Metabolic Fpx524 TPRO 6.5 g/dL 04/15/2017 Comp Metabolic Thy447 GLOB 2.6 g/dL 04/15/2017 Comp Metabolic Ljv986 A/G Ratio 1.5 Ratio 04/15/2017 Comp Metabolic Vtl214 Osmo 293 mOsmo 04/15/2017 Tsh Ord6 hTSH II 2.05 uIU/mL 04/15/2017 %Hba1C Ssx552 % HbA1c 64586- 6 6.3 % 04/15/2017 %Hba1C Coz094 Gluc Ave 134 mg/dL 04/15/2017 Cbc With [...] 29.0 pg 04/15/2017 Cbc With Differential Ord2 [place]% 6.9 % 04/15/2017 Cbc With Differential Ord2 [...] 1.58 K/ul 04/15/2017 Cbc With Differential Ord2 [place] ABS# 0.5 K/ul 04/15/2017 Cbc With Differential [...] Ord28 U-Com Culture to follow 04/15/2017 %Hba1C Qdi724 % HbA1c 06959- 6 5.8 % 01/07/2017 %Hba1C Nup910 Gluc Ave 120 mg/dL 01/07/2017 Urine Culture Ucult Preliminary NO Growth Day 1 09/21/2016 Urine Culture Ucult Complete NO Growth Day 2 09/21/2016 %Hba1C Yas388 % HbA1c 76177- 6 6.0 % 09/17/2016 %Hba1C Vlc951 Gluc Ave 126 mg/dL 09/17/2016 Comp Metabolic Ohy376 NA 140 mEq/L 09/17/2016 Comp Metabolic Lij951 K 4.1 mEq/L 09/17/2016 Comp Metabolic Bja930 CL 105 mEq/L 09/17/2016 Comp Metabolic Ycx308 CO2 29.0 mEq/L 09/17/2016 Comp Metabolic Vxz243 ANION GAP 10 09/17/2016 Comp Metabolic Mog689 GLUCOSE 89 mg/dL 09/17/2016 Comp Metabolic Whb672 Creat 0.9 mg/dL 09/17/2016 Comp Metabolic Wne142 eGFR 65 ml/min/1.73m2 09/17/2016 Comp Metabolic Ink011 BUN 20 mg/dL 09/17/2016 Comp Metabolic Mby040 B/C Ratio 22.2 Ratio 09/17/2016 Comp Metabolic Fxk196 CALCIUM 9.3 mg/dL 09/17/2016 Comp Metabolic Yua250 ALK PHOS 107 U/L 09/17/2016 Comp Metabolic Eqo636 AST(SGOT) 22 U/L 09/17/2016 Comp Metabolic Bwm367 ALT(SGPT) 15 U/L 09/17/2016 Comp Metabolic Sbg649 BILI T 0.7 mg/dL 09/17/2016 Comp Metabolic Ijq317 ALBUMIN 4.0 g/dL 09/17/2016 Comp Metabolic Yxv559 TPRO 6.8 g/dL 09/17/2016 Comp Metabolic Zsd400 GLOB 2.8 g/dL 09/17/2016 Comp Metabolic Kxc984 A/G Ratio 1.4 Ratio 09/17/2016 Comp Metabolic Uon273 Osmo 281 mOsmo 09/17/2016 Microalbumin Gma051 MicroAlb 44.3 mg/dL 09/17/2016 Tsh Ord6 hTSH [...] 29.0 pg 09/17/2016 Cbc With Differential Ord2 [place]% 8.1 % 09/17/2016 Cbc With Differential Ord2 [...] 1.78 K/ul 09/17/2016 Cbc With Differential Ord2 [place] ABS# 0.6 K/ul 09/17/2016 Cbc With Differential [...] Procedure Codes Date THER/PROPH/DIAG INJ SC/IM CPT-4: 91460 01/02/2019 TRIAMCINOLONE ACET INJ NOS CPT-4: J3301 01/02/2019 TRIAMCINOLONE ACET INJ NOS CPT-4: J3301 10/12/2018 THER/PROPH/DIAG INJ SC/IM CPT-4: 46402 10/12/2018 PPPS, SUBSEQ VISIT CPT- 4: G0439 09/06/2018 URINALYSIS NONAUTO W/O SCOPE CPT-4: 89376 12/29/2017 PPPS, SUBSEQ VISIT CPT- 4: G0439 03/30/2017 THER/PROPH/DIAG INJ SC/IM CPT-4: 80699 03/16/2017 TRIAMCINOLONE ACET INJ NOS CPT-4: J3301 03/16/2017 THER/PROPH/DIAG INJ SC/IM CPT-4: 70465 03/12/2017 TRIAMCINOLONE ACET INJ NOS CPT-4: J3301 03/12/2017 THER/PROPH/DIAG INJ SC/IM CPT-4: 38461 11/05/2016 TRIAMCINOLONE ACET INJ NOS CPT-4: J3301 11/05/2016 URINALYSIS NONAUTO W/O SCOPE CPT-4: 26762 09/18/2016 Vital Signs Date Vital 10/12/2018 Blood Pressure 1: 142/76 Code: 8480-6 BMI: 30.1 Code: 52264-0 Heart Rate 1: 83 bpm Height: 5'7" SpO2: 98% Weight: 192 lbs 09/06/2018 Blood Pressure 1: 142/66 Code: 8480-6 BMI: 30.9 Code: 71341-3 Heart Rate 1: 64 bpm Height: 5'7" SpO2: 98% Waist Measure (cm): 99 cm Weight: 197 lbs 08/16/2018 Blood Pressure 1: 140/70 Code: 8480-6 BMI: 34.4 Code: 54025-3 Heart Rate 1: 63 bpm Height: 5'7" SpO2: 95% Weight: 219 lbs 14 oz 04/12/2018 Blood Pressure 1: 160/70 Code: 8480-6 BMI: 33.0 Code: 63513-5 Heart Rate 1: 82 bpm Height: 5'7" SpO2: 95% Weight: 211 lbs 01/20/2018 Blood Pressure 1: 152/66 Code: 8480-6 BMI: 31.8 Code: 49870-1 Heart Rate 1: 52 bpm Height: 5'7" SpO2: 98% Temperature: 36.3 (C) / 97.3 (F) Weight: 203 lbs 12/29/2017 Blood Pressure 1: 168/72 Code: 8480-6 BMI: 32.1 Code: 37461-1 Heart Rate 1: 63 bpm Height: 5'7" SpO2: 98% Weight: 205 lbs 08/24/2017 Blood Pressure 1: 186/70 Code: 8480-6 Blood Pressure 1: 150/70 Code: 8480-6 BMI: 31.8 Code: 11659-3 Heart Rate 1: 53 bpm Height: 5'7" SpO2: 98% Weight: 203 lbs 07/26/2017 Blood Pressure 1: 206/78 Code: 8480-6 Blood Pressure 2: 210/84 Code: 8480-6 BMI: 32.0 Code: 65769-0 Heart Rate 1: 49 bpm Height: 5'7" SpO2: 97% Weight: 204 lbs 07/20/2017 Blood Pressure 1: 148/82 Code: 8480-6 Heart Rate 1: 90 bpm SpO2: 98% 05/27/2017 Blood Pressure 1: 142/72 Code: 8480-6 BMI: 30.5 Code: 62116-0 Heart Rate 1: 97 bpm Height: 5'7" [...] 1: 148/70 Code: 8480-6 BMI: 30.4 Code: 52651-9 Heart Rate 1: 54 bpm Height: 5'7" SpO2: 97% Weight: 194 lbs 03/30/2017 BMI: 33.2 Code: 72454-5 Height: 5'7" Weight: 212 lbs 03/16/2017 Blood Pressure 1: 140/80 Code: 8480-6 BMI: 34.0 Code: 24976-6 Heart Rate 1: 70 bpm Height: 5'7" SpO2: 95% Weight: 217 lbs 03/12/2017 Blood Pressure 1: 142/80 Code: 8480-6 BMI: 34.0 Code: 43072-8 Heart Rate 1: 76 bpm Height: 5'7" SpO2: 92% Weight: 217 lbs 02/17/2017 Blood Pressure 1: 162/64 Code: 8480-6 BMI: 32.9 Code: 13285-9 Heart Rate 1: 59 bpm Height: 5'7" SpO2: 97% Weight: 210 lbs 01/20/2017 Blood Pressure 1: 162/74 Code: 8480-6 BMI: 32.9 Code: 70246-2 Heart Rate 1: 56 bpm Height: 5'7" SpO2: 98% Weight: 210 lbs 11/17/2016 Blood Pressure 1: 156/60 Code: 8480-6 BMI: 34.8 Code: 20492-4 Heart Rate 1: 63 bpm Height: 5'7" SpO2: 96% Weight: 222 lbs 11/05/2016 Blood Pressure 1: 160/68 Code: 8480-6 BMI: 34.5 Code: 60871-8 Heart Rate 1: 66 bpm Height: 5'7" SpO2: 97% Temperature: 36.9 (C) / 98.5 (F) Weight: 220 lbs 09/21/2016 Blood Pressure 1: 180/72 Code: 8480-6 Blood Pressure 1: 166/72 Code: 8480-6 BMI: 32.1 Code: 00416-4 Heart Rate 1: 57 bpm Height: 5'7" SpO2: 98% Weight: 205 lbs 09/16/2016 Blood Pressure 1: 168/70 Code: 8480-6 Heart Rate 1: 49 bpm SpO2: 95% 08/03/2016 Blood Pressure 1: 162/70 Code: 8480-6 BMI: 32.0 Code: 14709-2 Heart Rate 1: 43 bpm Height: 5'7" SpO2: 98% Weight: 204 lbs 07/06/2016 Blood Pressure 1: 170/86 Code: 8480-6 BMI: 32.0 Code: 72815-0 Heart Rate 1: 48 bpm Height: 5'7" [...] Krysta Camejo MD, [facility] CPT- 4: 76166 10/12/2018 ([id number]) 00619 EST. PATIENT, LEVEL IV Diagnosis: Essential (primary) hypertension[ICD10: I10] Diagnosis: Type 2 diabetes mellitus without complications[ICD10: E11.9] Diagnosis: Mixed hyperlipidemia[ICD10: E78.2] Fifi Camejo MD, [facility] CPT- 4: 61960 08/16/2018 ([id number]) 08758 EST. PATIENT, LEVEL IV Diagnosis: Type 2 diabetes mellitus without complications[ICD10: E11.9] Diagnosis: Mixed hyperlipidemia[ICD10: E78.2] Diagnosis: Essential (primary) hypertension[ICD10: I10] Diagnosis: Dysuria[ICD10: R30.0] Diagnosis: Pain in left foot[ICD10: M79.672] [facility] CPT- 4: 16475 04/12/2018 03830 02431 EST. PATIENT, LEVEL III Diagnosis: Otalgia, bilateral[ICD10: H92.03] Diagnosis: Other allergic rhinitis[ICD10: J30.89] Yuridia Camejo MD, [facility] CPT-4: 06032 01/20/2018 ([id number]) 44738 EST. PATIENT, LEVEL IV Diagnosis: Type 2 diabetes mellitus without complications[ICD10: E11.9] Diagnosis: Mixed hyperlipidemia[ICD10: E78.2] Diagnosis: Essential (primary) hypertension[ICD10: I10] Diagnosis: Dysuria[ICD10: R30.0] Fifi Camejo MD, [facility] CPT-4: 30078 12/29/2017 ([id number]) 04003 EST. PATIENT, LEVEL IV Diagnosis: Essential (primary) hypertension[ICD10: I10] Diagnosis: Cysts of left upper eyelid[ICD10: H02.824] Diagnosis: Pain in left foot[ICD10: M79.672] Fifi Camejo MD, [facility] CPT- 4: 67139 08/24/2017 ([id number]) 73969 EST. PATIENT, LEVEL III Diagnosis: Essential (primary) hypertension[ICD10: I10] Fifi Camejo MD, [facility] CPT-4: 26733 07/26/2017 ([id number]) Miscellaneous no charge Diagnosis: Essential (primary) hypertension[ICD10: I10] Fifi Camejo MD, [facility] CPT-4: 66076 07/20/2017 26840 EST. PATIENT, LEVEL III Diagnosis: Otalgia, bilateral[ICD10: H92.03] Diagnosis: Dizziness and giddiness[ICD10: R42] Diagnosis: Mixed hyperlipidemia[ICD10: E78.2] Krysta Camejo MD, [facility] CPT-4: 66462 05/27/2017 ([id number]) Miscellaneous no charge Diagnosis: Essential (primary) hypertension[ICD10: I10] Krysta Camejo MD, [facility] CPT-4: 09785 05/07/2017 ([id number]) 76025 EST. PATIENT, LEVEL IV Diagnosis: Otalgia, bilateral[ICD10: H92.03] Diagnosis: Dizziness and giddiness[ICD10: R42] Diagnosis: Orthostatic hypotension[ICD10: I95.1] Fifi Camejo MD, [facility] CPT-4: 89224 05/03/2017 22591 EST. PATIENT, LEVEL IV Diagnosis: Essential (primary) hypertension[ICD10: I10] Diagnosis: Type 2 diabetes mellitus without complications[ICD10: E11.9] Diagnosis: Gastro-esophageal reflux disease without esophagitis[ICD10: K21.9] Diagnosis: Dizziness and giddiness[ICD10: R42] Diagnosis: Dysuria[ICD10: R30.0] Diagnosis: Other malaise[ICD10: R53.81] Krysta Camejo MD, [facility] CPT-4: 86660 04/15/2017 ([id number]) 89983 EST. PATIENT, LEVEL IV Diagnosis: Type 2 diabetes mellitus without complications[ICD10: E11.9] Diagnosis: Otalgia, bilateral[ICD10: H92.03] Diagnosis: Essential (primary) hypertension[ICD10: I10] Diagnosis: Other allergic rhinitis[ICD10: J30.89] Fifi Camejo MD, [facility] CPT-4: 34794 03/16/2017 73620 EST. PATIENT, LEVEL IV Diagnosis: Other acute sinusitis[ICD10: J01.80] Diagnosis: Acute suppurative otitis media without spontaneous rupture of ear drum, bilateral[ICD10: H66.003] Diagnosis: Other allergic rhinitis[ICD10: J30.89] Krysta Camejo MD, [facility] CPT- 4: 70466 03/12/2017 ([id number]) 43752 EST. PATIENT, LEVEL IV Diagnosis: Essential (primary) hypertension[ICD10: I10] Diagnosis: Type 2 diabetes mellitus without complications[ICD10: E11.9] Fifi Camejo MD [facility] CPT-4: 87934 02/17/2017 ([id number]) 70291 EST. PATIENT, LEVEL IV Diagnosis: Essential (primary) hypertension[ICD10: I10] Diagnosis: Type 2 diabetes mellitus without complications[ICD10: E11.9] Fifi Camejo MD [facility] CPT-4: 61250 01/20/2017 ([id number]) 64932 EST. PATIENT, LEVEL IV Diagnosis: Essential (primary) hypertension[ICD10: I10] Diagnosis: Type 2 diabetes mellitus without complications[ICD10: E11.9] Diagnosis: Gastro-esophageal reflux disease without esophagitis[ICD10: K21.9] Fifi Camejo MD, [facility] CPT-4: 83416 11/17/2016 ([id number]) 20600 EST. PATIENT, LEVEL III Diagnosis: Acute bronchitis due to other specified organisms[ICD10: J20.8] Diagnosis: Cough[ICD10: R05] RANDALL Redmond MD CPT-4: 99228 11/05/2016 ([id number]) 14250 EST. PATIENT, LEVEL IV Diagnosis: Essential (primary) hypertension[ICD10: I10] Diagnosis: Type 2 diabetes mellitus without complications[ICD10: E11.9] RANDALL Redmond MD CPT-4: 33275 09/21/2016 ([id number]) Miscellaneous no charge Diagnosis: Essential (primary) hypertension[ICD10: I10] RANDALL Redmond MD CPT-4: 06537 09/16/2016 ([id number]) 31376 EST. PATIENT, LEVEL III Diagnosis: Type 2 diabetes mellitus without complications[ICD10: E11.9] Diagnosis: Essential (primary) hypertension[ICD10: I10] RANDALL Redmond MD CPT-4: 81622 08/03/2016 ([id number]) OFFICE VISIT, NEW - LEVEL 4 Diagnosis: Essential (primary) hypertension[ICD10: I10] Diagnosis: Type 2 diabetes mellitus without complications[ICD10: E11.9] Diagnosis: Carpal tunnel syndrome, left upper limb[ICD10: G56.02] Diagnosis: Right upper quadrant pain[ICD10: R10.11] Diagnosis: Mixed hyperlipidemia[ICD10: E78.2] Fifi Camejo MD, [facility] CPT- 4: 77521 07/06/2016 Plan of Care Planned Activity Notes [...] spray. 10/12/2018 [phone] ([facility] min) Complex 10/12/2018 Patient Education: Patient [...] surrogate. 09/06/2018 Appointment: Yuridia Walsh WPtel: [phone] [phone] [facility] - Annual Wellness Visit 09/06/2018 Patient Education: Patient Medication Summary Completed 09/06/2018 Appointment: Yuridia Walsh WPtel: [phone] [phone] [facility] - Annual Wellness Visit 08/29/2018 [...] dications. 08/16/2018 Appointment: Fifi Camejo [facility]: [phone] [...] foot. 04/12/2018 Appointment: Fifi Camejo [facility]Ptel[facility] [phone] [facility] (15 min) Moderate 04/12/2018 Patient Education: Patient Medication Summary Completed 04/12/2018 Care Plan: Referral Order SNOMED-CT : [id number] Pending 04/12/2018 Patient Education: Patient Medication Summary [...] spray. 01/20/2018 Appointment: Yuridia Walsh WPtel: [phone] [phone] (15 min) Moderate 01/20/2018 Patient Education: Patient [...] less controlled. 12/29/2017 Appointment: Fifi Camejo WPtel: [phone] [facility] [place] (15 min) Moderate 12/29/2017 Patient Education: Patient [...] - recommended referral to Dr. Anders in [place] 08/24/2017 Appointment: Fifi Camejo WPtel: [phone] [facility] [address] (15 min) Moderate 08/24/2017 Patient Education: Patient Medication Summary Completed 08/24/2017 Care Plan: Referral Order SNOMED-CT : [id number] Pending 08/24/2017 Visit Plan: Hypertension - uncontrolled [...] listed above. 07/26/2017 Appointment: Fifi Camejo WPtel: [phone] [facility] [...] medications. 05/27/2017 Appointment: Krysta Dale WPtel: [phone] [facility] (15 min) Moderate 05/27/2017 Patient Education: Patient Medication Summary Completed 05/27/2017 Appointment: Nurse Visit 05/07/2017 Patient Education: Patient Medication Summary Completed 05/07/2017 Visit Plan: Persistent vergito with bilateral air-fluid levels and ear pain. Pt was seen by Dr. Calvo- she did not like his response to her complaints. I have recommended a referral to ENT in [place] or [place]. I suspect she may need myringotomy tubes. Pt to continue with flonase. Orthostatic hypotension - dc doxazosin. Monitor blood pressures at home. stop the doxazosin meclizine change to 1/2 pill three times a day come back on Wednesday for blood pressure check 05/03/2017 Appointment: Fifi Camejo WPtel: [phone] [facility] [place] (15 min) Moderate 05/03/2017 Patient Education: Patient Medication Summary Completed 05/03/2017 Appointment: Fifi Camejo WPtel: [phone] [facility] (15 min) Moderate 04/21/2017 Visit Plan: Hypertension, [...] glucose control. 04/15/2017 Appointment: Krysta Dale WPtel: [address] [place], [place] [address] (30 min) [facility] 04/15/2017 Patient Education: Patient Medication Summary Completed [...] surrogate. 03/30/2017 Appointment: [facility] [phone] [facility] [facility] - Annual Wellness Visit 03/30/2017 [...] [facility] Hypertension - well controlled - continue with current medications, continue with no added salt diet. Pt has been encouraged to exercise daily. The pt has been advised to call the office if there are any acute concerns about change in blood pressure readings at home. 03/16/2017 Appointment: Fifi Camejo WPtel: [phone] [facility] (30 min) Complex 03/16/2017 Patient Education: Patient Medication Summary Completed 03/16/2017 Patient Education: Obesity Completed 03/16/2017 Care Plan: Referral Order SNOMED-CT : [id number] Pending 03/16/2017 Visit Plan: Allergies - chronic [...] acutely worsen. 03/12/2017 Appointment: [facility] [phone] [facility] (15 min) Moderate 03/12/2017 Patient [...] controlled. 01/20/2017 Appointment: Fifi Camejo WPtel: [phone] [facility] [...] of dexilant 11/17/2016 Appointment: Fifi Camejo WPtel: [phone] [facility] [...] range. 09/21/2016 Appointment: Fifi Camejo WPtel: [phone] [facility] [...] time. 08/03/2016 Appointment: Fifi Camejo WPtel: [phone] [facility] (15 min) Moderate 08/03/2016 Patient Education: Patient [...] not improving. 07/06/2016 Appointment: Fifi Camejo WPtel: [address] [place], [place] [address] New Patient 07/06/2016 Patient Education: Patient Medication [...] [facility] March 24 Hypertension [...] [employer] paperwork for health care surrogate. . Hypertension - uncontrolled today in the [...] - recommended referral to Dr. Anders in [place] stop the doxazosin meclizine change to 1/2 pill three times a day come back on Wednesday for blood pressure check . Persistent vergito with bilateral air-fluid levels and ear pain. Pt was seen by Dr. Calvo- she did not like his response to her complaints. I have recommended a referral to ENT in [place] or [place]. I suspect she may need myringotomy tubes. [...] monitor your heart rate Consider referral for director of corporate sponsorships for possible stress test if needed. Call [...] monitor your heart rate Consider referral for director of corporate sponsorships for possible stress test if needed. Call [...]
--- OUTSIDE RECORDS SUMMARY | 2019-03-08 16:37 | XMS REPORT | CCD ---
Author Author Fifi Camejo MD, [facility] Address [address] [place] [address] Phone Care Team Providers Care Pond Scaler Name Role Phone PP Unavailable CCM Unavailable Summary Purpose Interface Exchange Insurance Providers Payer name Policy type / Coverage type Covered alliance party ID Effective Begin Date Effective End Date WPS Medicare Part B Medicare Part B [id number] 2018 Unknown FOR LIFE WPS Medicare Part B [id number] Unknown Family history Father Diagnosis Age At Onset Cancer Unknown Brother Diagnosis Age At Onset Diabetes mellitus Type 2 Unknown Heart Attack Unknown Social History Social History Element Codes Description Effective Dates Marital status Unknown Wu 11/05/2016 Number of children Unknown 1 07/06/2016 Employment Unknown Retired 07/06/[address]: 075439652 Never smoker 07/06/[address]: 984639523 Never drinks alcohol 07/06/2016 Allergies, Adverse Reactions, Alerts Substance Reaction Codes Entered Date Inactivated Date Status Protonix hives RxNorm: 261797 09/06/2018 No Inactive Date Active IV DYE, [...] Kenalog 40 mg/mL suspension for injection RxNorm: 8280732 Milliliter(s) Inj 01/02/2019 01/02/2019 Inactive Zithromax Z-Juan 250 mg tablet RxNorm: 502804 1 Tablet(s) PO UD 12/30/2018 01/03/2019 Active zpack as directed metoprolol tartrate 50 mg tablet RxNorm: 926111 1/2 TABLET(S) PO BID 12/02/2018 No Stop Date Active amlodipine 10 mg tablet RxNorm: 629836 TAKE 1 TABLET DAILY 10/24/2018 No Stop Date Active cefdinir 300 mg capsule RxNorm: 255476 1 Capsule(s) PO BID 10/19/2018 10/22/2018 Inactive Zithromax Z-Juan 250 mg tablet RxNorm: 507887 1 Tablet(s) PO UD 10/19/2018 10/23/2018 Inactive zpack as directed glimepiride 4 mg tablet RxNorm: 903472 Tablet(s) 1 TABLET(S) PO DAILY 10/12/2018 No Stop Date Active cefdinir 300 mg capsule RxNorm: 127430 1 Capsule(s) PO BID 10/12/2018 10/18/2018 Inactive Zithromax Z-Juan 250 mg tablet RxNorm: 722382 1 Tablet(s) PO UD 10/12/2018 10/16/2018 Inactive zpack as directed Tessalon Perles 100 mg capsule RxNorm: 444996 2 Capsule(s) PO TID as needed cough 10/12/2018 10/16/2018 Inactive Kenalog 40 mg/mL suspension for injection RxNorm: 9361405 1 Milliliter(s) Inj 10/12/2018 10/12/2018 Inactive Zithromax Z-Juan 250 mg tablet RxNorm: 102705 1 Tablet(s) PO UD 08/22/2018 08/26/2018 Inactive zpack as directed clonidine HCl 0.1 mg tablet RxNorm: 816700 1 Tablet(s) PO QAM 08/16/2018 08/10/2019 Active losartan 100 mg tablet RxNorm: 815080 1 TABLET(S) PO DAILY FOR HIGH BLOOD PRESSURE 08/12/2018 No Stop Date Active alprazolam 0.5 mg tablet RxNorm: 096533 1 Tablet(s) PO TID as needed anxiety 06/30/2018 12/26/2018 Inactive fluticasone 50 mcg/actuation nasal spray,suspension RxNorm: 4806725 USE 1 SPRAY NASALLY TWICE A DAY 05/06/2018 No Stop Date Active clonidine HCl 0.1 mg tablet RxNorm: 220997 1 Tablet(s) PO BID 04/14/2018 08/15/2018 Inactive clonidine HCl 0.1 mg tablet RxNorm: 699386 1 Tablet(s) PO TID 04/12/2018 04/13/2018 Inactive Zithromax Z-Juan 250 mg tablet RxNorm: 542669 1 Tablet(s) PO UD 01/20/2018 08/21/2018 Inactive disregard first rx for 1 - patient needs 3 packs-please dispense generic azithromycin Zithromax Z-Juan 250 mg tablet RxNorm: 221981 1 Tablet(s) PO UD 01/20/2018 01/19/2018 Inactive Zithromax Z-Juan 250 mg tablet RxNorm: 608616 1 Tablet(s) PO UD 01/20/2018 01/19/2018 Inactive disregard first rx for 1 - patient needs 3 packs Zithromax Z-Juan 250 mg tablet RxNorm: 609331 1 Tablet(s) PO UD 01/20/2018 01/19/2018 Inactive atorvastatin 10 mg tablet RxNorm: 630473 1 Tablet(s) PO QPM 12/30/2017 12/24/2018 Inactive atorvastatin 10 mg tablet RxNorm: 618222 1 Tablet(s) PO QPM 12/30/2017 12/29/2017 Inactive clonidine HCl 0.1 mg tablet RxNorm: 298432 1 Tablet(s) PO BID 12/29/2017 04/11/2018 Inactive Lipitor 10 mg tablet RxNorm: 634750 1 Tablet(s) PO QPM 12/29/2017 12/29/2017 Inactive OKAY TO DISPENSE GENERIC metoprolol tartrate 50 mg tablet RxNorm: 639587 1/2 Tablet(s) PO BID 12/29/2017 12/01/2018 Inactive alprazolam 0.5 mg tablet RxNorm: 450811 1 Tablet(s) PO TID as needed anxiety 11/18/2017 05/16/2018 Inactive glimepiride 4 mg tablet RxNorm: 944510 1 TABLET(S) PO DAILY 11/15/2017 10/11/2018 Inactive alprazolam 0.5 mg tablet RxNorm: 804057 1 Tablet(s) PO TID as needed anxiety 09/20/2017 11/17/2017 Inactive Zithromax Z-Juan 250 mg tablet RxNorm: 671726 1 Tablet(s) PO UD 09/20/2017 12/28/2017 Inactive Zithromax Z-Juan 250 mg tablet RxNorm: 950445 1 Tablet(s) PO UD 09/14/2017 09/19/2017 Inactive clonidine HCl 0.1 mg tablet RxNorm: 875910 1/2 Tablet(s) PO BID 08/24/2017 12/28/2017 Inactive amlodipine 10 mg tablet RxNorm: 858454 1 Tablet(s) PO daily 08/24/2017 08/18/2018 Inactive erythromycin 5 mg/gram (0.5 %) eye ointment RxNorm: 277034 1 Gram(s) ophthalmic (eye) QID left eye cyst 08/24/2017 09/06/2017 Inactive losartan 100 mg tablet RxNorm: 458729 1 Tablet(s) PO daily for high blood pressure 08/16/2017 08/10/2018 Inactive metoprolol tartrate 50 mg tablet RxNorm: 333069 1/2 Tablet(s) PO BID 07/26/2017 12/28/2017 Inactive clonidine HCl 0.1 mg tablet RxNorm: 276596 1/2 Tablet(s) PO BID 07/26/2017 08/23/2017 Inactive metoprolol tartrate 50 mg tablet RxNorm: 410557 1 Tablet(s) PO BID 07/21/2017 07/25/2017 Inactive amlodipine 10 mg tablet RxNorm: 510615 1 TABLET(S) PO DAILY 06/29/2017 08/23/2017 Inactive Lipitor 10 mg tablet RxNorm: 533318 1 Tablet(s) PO QPM 05/27/2017 12/28/2017 Inactive OKAY TO DISPENSE GENERIC alprazolam 0.5 mg tablet RxNorm: 862630 1 Tablet(s) PO TID as needed anxiety 05/18/2017 08/15/2017 Inactive hydrochlorothiazide 12.5 mg tablet RxNorm: 579604 1 Tablet(s) PO daily 04/22/2017 05/21/2017 Inactive hydrochlorothiazide 12.5 mg tablet RxNorm: 357062 1 Tablet(s) PO daily 04/22/2017 04/21/2017 Inactive Cipro 500 mg tablet RxNorm: 018227 1 Tablet(s) PO BID 04/16/2017 04/22/2017 Inactive Zofran 4 mg tablet RxNorm: 167609 1 Tablet(s) PO BID as needed nausea and vomitting 04/15/2017 04/19/2017 Inactive Lipitor 10 mg tablet RxNorm: 132837 1 Tablet(s) PO QPM 03/30/2017 05/26/2017 Inactive OKAY TO DISPENSE GENERIC Kenalog 40 mg/mL suspension for injection RxNorm: 9207178 1 Milliliter(s) Inj 03/16/2017 03/16/2017 Inactive doxazosin 4 mg tablet RxNorm: 713287 1.5 Tablet(s) PO BID 03/16/2017 05/02/2017 Inactive prednisone 10 mg tablets in a dose pack RxNorm: 096943 Tablet(s) take dose pack as directed PO take with food 03/16/2017 05/23/2017 Inactive Kenalog 40 mg/mL suspension for injection RxNorm: 2094453 Milliliter(s) Inj 03/12/2017 03/12/2017 Inactive Zithromax Z-Juan 250 mg tablet RxNorm: 575587 1 Tablet(s) PO daily 03/11/2017 03/10/2017 Inactive zpack as directed Zithromax Z-Juan 250 mg tablet RxNorm: 608376 1 Tablet(s) PO daily 03/11/2017 03/15/2017 Inactive zpack as directed doxazosin 4 mg tablet RxNorm: 784330 1.5 Tablet(s) PO BID 02/12/2017 03/15/2017 Inactive fluticasone 50 mcg/actuation nasal spray,suspension RxNorm: 8368861 1 SPRAY NASAL BID 02/05/2017 05/05/2018 Inactive metoprolol tartrate 75 mg tablet RxNorm: 7125416 1 Tablet(s) PO BID 01/29/2017 07/19/2017 Inactive metoprolol tartrate 75 mg tablet RxNorm: 4672308 1 Tablet(s) PO BID 01/29/2017 01/28/2017 Inactive doxazosin 4 mg tablet RxNorm: 909881 1 Tablet(s) PO BID 01/20/2017 02/11/2017 Inactive pantoprazole 40 mg tablet,delayed release RxNorm: 552695 1 Tablet(s) PO daily 12/24/2016 01/19/2017 Inactive pantoprazole 40 mg tablet,delayed release RxNorm: 236493 1 Tablet(s) PO daily 12/24/2016 12/23/2016 Inactive alprazolam 0.5 mg tablet RxNorm: 345470 1 Tablet(s) PO TID as needed anxiety 12/03/2016 04/01/2017 Inactive fluticasone 50 mcg/actuation nasal spray,suspension RxNorm: 5751478 1 [place] NASAL BID 11/25/2016 12/24/2016 Inactive Dexilant 60 mg capsule, delayed release RxNorm: 553362 1 Capsule(s) PO daily 11/25/2016 11/24/2016 Inactive fluticasone 50 mcg/actuation nasal spray,suspension RxNorm: 8223530 1 [place] NASAL BID 11/25/2016 11/24/2016 Inactive fluticasone 50 mcg/actuation nasal spray,suspension RxNorm: 1054919 1 [place] NASAL BID 11/25/2016 11/24/2016 Inactive Dexilant 60 mg capsule, delayed release RxNorm: 529892 1 Capsule(s) PO daily 11/25/2016 12/23/2016 Inactive ProAir RespiClick 90 mcg/actuation breath activated RxNorm: 6614718 1 INH bid and QID as needed 11/19/2016 05/17/2017 Inactive Please send STAT Flonase Allergy Relief 50 mcg/actuation nasal spray,suspension RxNorm: 0021180 1 [place] NASAL BID 11/19/2016 11/24/2016 Inactive glimepiride 4 mg tablet RxNorm: 771845 1 Tablet(s) PO daily 11/19/2016 11/13/2017 Inactive metoprolol tartrate 50 mg tablet RxNorm: 029327 1 Tablet(s) PO BID 11/19/2016 01/28/2017 Inactive Flonase Allergy Relief 50 mcg/actuation nasal spray,suspension RxNorm: 9653498 1 [place] NASAL BID 11/17/2016 11/18/2016 Inactive metoprolol tartrate 50 mg tablet RxNorm: 698390 1 Tablet(s) PO BID 11/17/2016 11/18/2016 Inactive ProAir RespiClick 90 mcg/actuation breath activated RxNorm: 2178469 1 INH bid and QID as needed 11/17/2016 11/16/2016 Inactive glimepiride 4 mg tablet RxNorm: 330948 1 Tablet(s) PO daily 11/17/2016 11/18/2016 Inactive ProAir RespiClick 90 mcg/actuation breath activated RxNorm: 8552650 1 INH bid and QID as needed 11/17/2016 11/18/2016 Inactive Please send STAT Kenalog 40 mg/mL suspension for injection RxNorm: 2189790 1 Milliliter(s) Inj 11/05/2016 11/05/2016 Inactive azithromycin 250 mg tablet RxNorm: 273391 Tablet(s) PO 2 tabs on day #1, then daily x 4 days 11/05/2016 12/23/2016 Inactive doxazosin 4 mg tablet RxNorm: 911457 1 Tablet(s) PO QPM 10/02/2016 01/19/2017 Inactive doxazosin 4 mg tablet RxNorm: 672658 1 Tablet(s) PO QPM 09/29/2016 10/01/2016 Inactive doxazosin 4 mg tablet RxNorm: 562900 1 Tablet(s) PO QPM 09/21/2016 09/28/2016 Inactive Cipro 500 mg tablet RxNorm: 702854 1 Tablet(s) PO BID 09/18/2016 09/17/2016 Inactive Cipro 500 mg tablet RxNorm: 158155 1 Tablet(s) PO BID 09/18/2016 09/24/2016 Inactive losartan 100 mg tablet RxNorm: 960519 1 Tablet(s) PO daily for high blood pressure 09/16/2016 09/15/2016 Inactive alprazolam 0.5 mg tablet RxNorm: 417428 1 Tablet(s) PO TID as needed anxiety 09/16/2016 11/14/2016 Inactive losartan 100 mg tablet RxNorm: 997501 1 Tablet(s) PO daily for high blood pressure 09/16/2016 08/15/2017 Inactive amlodipine 10 mg tablet RxNorm: 631741 1 Tablet(s) PO daily 08/03/2016 06/28/2017 Inactive Zyrtec 10 mg tablet RxNorm: 1797412 1 Tablet(s) PO daily 08/03/2016 09/15/2016 Inactive losartan 25 mg tablet RxNorm: 764754 1 Tablet(s) PO daily 07/08/2016 09/15/2016 Inactive Lipitor 10 mg tablet RxNorm: 127498 1 Tablet(s) PO QPM 07/08/2016 07/17/2016 Inactive OKAY TO DISPENSE GENERIC Lipitor 10 mg tablet RxNorm: 172464 1 Tablet(s) PO QPM 07/06/2016 07/07/2016 Inactive OKAY TO DISPENSE GENERIC losartan 25 mg tablet RxNorm: 509127 1 Tablet(s) PO daily 07/06/2016 07/07/2016 Inactive meclizine 25 mg tablet RxNorm: 096526 1 Tablet(s) PO TID as needed No Start Date Active Parafon Forte DSC 500 mg tablet RxNorm: 391131 1 Tablet(s) PO QID No Start Date Active Pazeo 0.7 % eye drops RxNorm: 4636758 Drop(s) ophthalmic (eye) as needed dry eyes No Start Date Active Zithromax Z-Juan 250 mg tablet RxNorm: 674537 1 Tablet(s) PO UD No Start Date 09/13/2017 Inactive glimepiride 4 mg tablet RxNorm: 664534 1 Tablet(s) PO daily No Start Date 11/16/2016 Inactive metoprolol tartrate 100 mg tablet RxNorm: 218487 1 Tablet(s) PO BID No Start Date 07/21/2017 Inactive naproxen 500 mg tablet RxNorm: 424863 1 Tablet(s) PO BID No Start Date 03/23/2017 Inactive amlodipine 5 mg tablet RxNorm: 752167 1 Tablet(s) PO daily No Start Date 08/02/2016 Inactive metoprolol tartrate 50 mg tablet RxNorm: 210446 1 Tablet(s) PO BID No Start Date 11/16/2016 Inactive Medication Administered Medication Codes Instructions Start Date Status Kenalog 40 mg/mL suspension for injection RxNorm: 8375276 Milliliter 01/02/2019 Active Kenalog 40 mg/mL suspension for injection RxNorm: 0069948 1Milliliter 10/12/2018 No longer Active Kenalog 40 mg/mL suspension for injection RxNorm: 4596361 1Milliliter 03/16/2017 No longer Active Kenalog 40 mg/mL suspension for injection RxNorm: 4866221 Milliliter 03/12/2017 No longer Active Kenalog 40 mg/mL suspension for injection RxNorm: 6419247 1Milliliter 11/05/2016 No longer Active Immunizations Vaccine [...] Lipid Ord30 C/HDL 3.1 Ratio 08/18/2018 Microalbumin Njp689 MicroAlb 7.5 mg/dL 08/18/2018 Cbc With Differential [...] 29.6 pg 08/18/2018 Cbc With Differential Ord2 [place]% 10.6 % 08/18/2018 Cbc With Differential Ord2 [...] 1.69 K/ul 08/18/2018 Cbc With Differential Ord2 [place] ABS# 0.6 K/ul 08/18/2018 Cbc With Differential Ord2 Eos ABS# 0.3 K/ul 08/18/2018 Cbc With Differential Ord2 Baso ABS# 0.0 K/ul 08/18/2018 Comp Metabolic Pjz826 NA 137 mEq/L 08/18/2018 Comp Metabolic Pvn314 K 3.8 mEq/L 08/18/2018 Comp Metabolic Slk644 CL 103 mEq/L 08/18/2018 Comp Metabolic Wsx946 CO2 26.0 mEq/L 08/18/2018 Comp Metabolic Kzy419 ANION GAP 12 08/18/2018 Comp Metabolic Bxs504 GLUCOSE 110 mg/dL 08/18/2018 Comp Metabolic Eiz581 Creat 1.2 mg/dL 08/18/2018 Comp Metabolic Yxj921 eGFR 47 ml/min/1.73m2 08/18/2018 Comp Metabolic Gnn583 BUN 25 mg/dL 08/18/2018 Comp Metabolic Hmr685 B/C Ratio 21.0 Ratio 08/18/2018 Comp Metabolic Ogp625 CALCIUM 9.4 mg/dL 08/18/2018 Comp Metabolic Rvr936 ALK PHOS 99 U/L 08/18/2018 Comp Metabolic Mor412 AST(SGOT) 31 U/L 08/18/2018 Comp Metabolic Vci977 ALT(SGPT) 27 U/L 08/18/2018 Comp Metabolic Edz741 BILI T 0.7 mg/dL 08/18/2018 Comp Metabolic Vzw209 ALBUMIN 4.2 g/dL 08/18/2018 Comp Metabolic Ond720 TPRO 6.7 g/dL 08/18/2018 Comp Metabolic Lgu305 GLOB 2.5 g/dL 08/18/2018 Comp Metabolic Ukd964 A/G Ratio 1.7 Ratio 08/18/2018 Comp Metabolic Sju999 Osmo 279 mOsmo 08/18/2018 %Hba1C Opa772 % HbA1c 28793- 6 6.1 % 08/18/2018 %Hba1C Ezo447 Gluc Ave 128 mg/dL 08/18/2018 Tsh Ord6 TSH (3rd IS) 3.93 uIU/mL 08/18/2018 Lipid Ord30 CHOL 146 mg/dL 04/15/2018 Lipid Ord30 HDL 62.0 mg/dl 04/15/2018 Lipid Ord30 TRIG 88 mg/dL 04/15/2018 Lipid Ord30 LDL 66 mg/dL 04/15/2018 Lipid Ord30 C/HDL 2.4 Ratio 04/15/2018 %Hba1C Xfr687 % HbA1c 43446- 6 6.3 % 04/15/2018 %Hba1C Qud545 Gluc Ave 134 mg/dL 04/15/2018 Cbc With [...] 30.2 pg 04/15/2018 Cbc With Differential Ord2 [place]% 6.8 % 04/15/2018 Cbc With Differential Ord2 [...] 2.10 K/ul 04/15/2018 Cbc With Differential Ord2 [place] ABS# 0.5 K/ul 04/15/2018 Cbc With Differential Ord2 Eos ABS# 0.2 K/ul 04/15/2018 Cbc With Differential Ord2 Baso ABS# 0.0 K/ul 04/15/2018 Comp Metabolic Ifr605 NA 140 mEq/L 04/15/2018 Comp Metabolic Mxp260 K 4.3 mEq/L 04/15/2018 Comp Metabolic Kyr184 CL 106 mEq/L 04/15/2018 Comp Metabolic Zyc382 CO2 23.0 mEq/L 04/15/2018 Comp Metabolic Mhv117 ANION GAP 15 04/15/2018 Comp Metabolic Pxe565 GLUCOSE 90 mg/dL 04/15/2018 Comp Metabolic Ued895 Creat 1.2 mg/dL 04/15/2018 Comp Metabolic Den170 eGFR 45 ml/min/1.73m2 04/15/2018 Comp Metabolic Atu093 BUN 28 mg/dL 04/15/2018 Comp Metabolic Jir241 B/C Ratio 22.8 Ratio 04/15/2018 Comp Metabolic Zsw687 CALCIUM 9.5 mg/dL 04/15/2018 Comp Metabolic Ncb595 ALK PHOS 95 U/L 04/15/2018 Comp Metabolic Pzt316 AST(SGOT) 20 U/L 04/15/2018 Comp Metabolic Lcc099 ALT(SGPT) 13 U/L 04/15/2018 Comp Metabolic Dhg328 BILI T 0.5 mg/dL 04/15/2018 Comp Metabolic Ylz541 ALBUMIN 4.1 g/dL 04/15/2018 Comp Metabolic Nxw698 TPRO 6.6 g/dL 04/15/2018 Comp Metabolic Mkt134 GLOB 2.5 g/dL 04/15/2018 Comp Metabolic Drm929 A/G Ratio 1.6 Ratio 04/15/2018 Comp Metabolic Rcf853 Osmo 284 mOsmo 04/15/2018 Comp Metabolic Kpc562 NA 137 mEq/L 02/04/2018 Comp Metabolic Hho545 K 4.0 mEq/L 02/04/2018 Comp Metabolic Umt785 CL 104 mEq/L 02/04/2018 Comp Metabolic Puu991 CO2 27.0 mEq/L 02/04/2018 Comp Metabolic Qrg992 ANION GAP 10 02/04/2018 Comp Metabolic Gnd634 GLUCOSE 212 mg/dL 02/04/2018 Comp Metabolic Zif561 Creat 1.2 mg/dL 02/04/2018 Comp Metabolic Dxv233 eGFR 47 ml/min/1.73m2 02/04/2018 Comp Metabolic Zkj316 BUN 20 mg/dL 02/04/2018 Comp Metabolic Mrb209 B/C Ratio 16.8 Ratio 02/04/2018 Comp Metabolic Vly405 CALCIUM 8.9 mg/dL 02/04/2018 Comp Metabolic Ohc505 ALK PHOS 107 U/L 02/04/2018 Comp Metabolic Wkw256 AST(SGOT) 17 U/L 02/04/2018 Comp Metabolic Jat776 ALT(SGPT) 11 U/L 02/04/2018 Comp Metabolic Yvl313 BILI T 0.4 mg/dL 02/04/2018 Comp Metabolic Qmw631 ALBUMIN 3.8 g/dL 02/04/2018 Comp Metabolic Ysl382 TPRO 6.2 g/dL 02/04/2018 Comp Metabolic Slb496 GLOB 2.4 g/dL 02/04/2018 Comp Metabolic Cuf923 A/G Ratio 1.6 Ratio 02/04/2018 Comp Metabolic Wjw542 Osmo 283 mOsmo 02/04/2018 %Hba1C Yvg827 % HbA1c 19338- 6 6.3 % 12/30/2017 %Hba1C Pex432 Gluc Ave 134 mg/dL 12/30/2017 Comp Metabolic Uap012 NA 142 mEq/L 12/30/2017 Comp Metabolic Hbc013 K 4.4 mEq/L 12/30/2017 Comp Metabolic Tkv610 CL 103 mEq/L 12/30/2017 Comp Metabolic Lht730 CO2 31.0 mEq/L 12/30/2017 Comp Metabolic Ivm572 ANION GAP 12 12/30/2017 Comp Metabolic Yuu968 GLUCOSE 119 mg/dL 12/30/2017 Comp Metabolic Vnl713 Creat 1.4 mg/dL 12/30/2017 Comp Metabolic Ewa390 eGFR 41 ml/min/1.73m2 12/30/2017 Comp Metabolic Xlj582 BUN 27 mg/dL 12/30/2017 Comp Metabolic Ryo324 B/C Ratio 20.0 Ratio 12/30/2017 Comp Metabolic Rgm658 CALCIUM 9.9 mg/dL 12/30/2017 Comp Metabolic Ima532 ALK PHOS 106 U/L 12/30/2017 Comp Metabolic Tgg570 AST(SGOT) 20 U/L 12/30/2017 Comp Metabolic Lhr231 ALT(SGPT) 13 U/L 12/30/2017 Comp Metabolic Ncm066 BILI T 0.7 mg/dL 12/30/2017 Comp Metabolic Rrb294 ALBUMIN 4.2 g/dL 12/30/2017 Comp Metabolic Heq234 TPRO 6.7 g/dL 12/30/2017 Comp Metabolic Vfu292 GLOB 2.6 g/dL 12/30/2017 Comp Metabolic Wfq737 A/G Ratio 1.6 Ratio 12/30/2017 Comp Metabolic Tfr784 Osmo 289 mOsmo 12/30/2017 Lipid Ord30 CHOL 167 mg/dL 12/30/2017 Lipid Ord30 HDL 63.0 mg/dl 12/30/2017 Lipid Ord30 TRIG 89 mg/dL 12/30/2017 Lipid Ord30 LDL 86 mg/dL 12/30/2017 Lipid Ord30 C/HDL 2.7 Ratio 12/30/2017 Urine Culture Ucult Preliminary NO Growth Day 1 04/17/2017 Urine Culture Ucult Complete NO Growth Day 2 04/17/2017 Comp Metabolic Xvb380 NA 143 mEq/L 04/15/2017 Comp Metabolic Nkj328 K 4.6 mEq/L 04/15/2017 Comp Metabolic Ugp515 CL 110 mEq/L 04/15/2017 Comp Metabolic Jjr211 CO2 30.0 mEq/L 04/15/2017 Comp Metabolic Vss414 ANION GAP 8 04/15/2017 Comp Metabolic Xzv384 GLUCOSE 159 mg/dL 04/15/2017 Comp Metabolic Wiv208 Creat 1.1 mg/dL 04/15/2017 Comp Metabolic Dnd610 eGFR 54 ml/min/1.73m2 04/15/2017 Comp Metabolic Ajk850 BUN 27 mg/dL 04/15/2017 Comp Metabolic Uim249 B/C Ratio 25.7 Ratio 04/15/2017 Comp Metabolic Wzc347 CALCIUM 9.4 mg/dL 04/15/2017 Comp Metabolic Ouy970 ALK PHOS 93 U/L 04/15/2017 Comp Metabolic Xwp077 AST(SGOT) 19 U/L 04/15/2017 Comp Metabolic Ybg835 ALT(SGPT) 18 U/L 04/15/2017 Comp Metabolic Bhs878 BILI T 0.6 mg/dL 04/15/2017 Comp Metabolic Nrm978 ALBUMIN 3.9 g/dL 04/15/2017 Comp Metabolic Dbe756 TPRO 6.5 g/dL 04/15/2017 Comp Metabolic Nfv015 GLOB 2.6 g/dL 04/15/2017 Comp Metabolic Kxp047 A/G Ratio 1.5 Ratio 04/15/2017 Comp Metabolic Yow214 Osmo 293 mOsmo 04/15/2017 Tsh Ord6 hTSH II 2.05 uIU/mL 04/15/2017 %Hba1C Mqp437 % HbA1c 54259- 6 6.3 % 04/15/2017 %Hba1C Dfa633 Gluc Ave 134 mg/dL 04/15/2017 Cbc With [...] 29.0 pg 04/15/2017 Cbc With Differential Ord2 [place]% 6.9 % 04/15/2017 Cbc With Differential Ord2 [...] 1.58 K/ul 04/15/2017 Cbc With Differential Ord2 [place] ABS# 0.5 K/ul 04/15/2017 Cbc With Differential [...] Ord28 U-Com Culture to follow 04/15/2017 %Hba1C Qvt922 % HbA1c 14111- 6 5.8 % 01/07/2017 %Hba1C Cnv196 Gluc Ave 120 mg/dL 01/07/2017 Urine Culture Ucult Preliminary NO Growth Day 1 09/21/2016 Urine Culture Ucult Complete NO Growth Day 2 09/21/2016 %Hba1C Imp200 % HbA1c 99676- 6 6.0 % 09/17/2016 %Hba1C Nkf371 Gluc Ave 126 mg/dL 09/17/2016 Comp Metabolic Vim190 NA 140 mEq/L 09/17/2016 Comp Metabolic Dlp806 K 4.1 mEq/L 09/17/2016 Comp Metabolic Nhl186 CL 105 mEq/L 09/17/2016 Comp Metabolic Xqp352 CO2 29.0 mEq/L 09/17/2016 Comp Metabolic Taq032 ANION GAP 10 09/17/2016 Comp Metabolic Xxt572 GLUCOSE 89 mg/dL 09/17/2016 Comp Metabolic Grb971 Creat 0.9 mg/dL 09/17/2016 Comp Metabolic Uak672 eGFR 65 ml/min/1.73m2 09/17/2016 Comp Metabolic Anp049 BUN 20 mg/dL 09/17/2016 Comp Metabolic Utr416 B/C Ratio 22.2 Ratio 09/17/2016 Comp Metabolic Kkl971 CALCIUM 9.3 mg/dL 09/17/2016 Comp Metabolic Ecs663 ALK PHOS 107 U/L 09/17/2016 Comp Metabolic Zuc309 AST(SGOT) 22 U/L 09/17/2016 Comp Metabolic Cpr529 ALT(SGPT) 15 U/L 09/17/2016 Comp Metabolic Jyj553 BILI T 0.7 mg/dL 09/17/2016 Comp Metabolic Bez281 ALBUMIN 4.0 g/dL 09/17/2016 Comp Metabolic Dtk585 TPRO 6.8 g/dL 09/17/2016 Comp Metabolic Mug542 GLOB 2.8 g/dL 09/17/2016 Comp Metabolic Wdw323 A/G Ratio 1.4 Ratio 09/17/2016 Comp Metabolic Yfi936 Osmo 281 mOsmo 09/17/2016 Microalbumin Www184 MicroAlb 44.3 mg/dL 09/17/2016 Tsh Ord6 hTSH [...] 29.0 pg 09/17/2016 Cbc With Differential Ord2 [place]% 8.1 % 09/17/2016 Cbc With Differential Ord2 [...] 1.78 K/ul 09/17/2016 Cbc With Differential Ord2 [place] ABS# 0.6 K/ul 09/17/2016 Cbc With Differential [...] intact 03/12/2017 None Full Exam - General 1995 Constitutional general appearance Development: well developed 02/17/2017 [...] clear 11/17/2016 None Full Exam - General 1995 Ears/Nose/Throat [...] Procedure Codes Date THER/PROPH/DIAG INJ SC/IM CPT-4: 78146 01/02/2019 TRIAMCINOLONE ACET INJ NOS CPT-4: J3301 01/02/2019 TRIAMCINOLONE ACET INJ NOS CPT-4: J3301 10/12/2018 THER/PROPH/DIAG INJ SC/IM CPT-4: 75055 10/12/2018 PPPS, SUBSEQ VISIT CPT- 4: G0439 09/06/2018 URINALYSIS NONAUTO W/O SCOPE CPT-4: 49869 12/29/2017 PPPS, SUBSEQ VISIT CPT- 4: G0439 03/30/2017 THER/PROPH/DIAG INJ SC/IM CPT-4: 67617 03/16/2017 TRIAMCINOLONE ACET INJ NOS CPT-4: J3301 03/16/2017 THER/PROPH/DIAG INJ SC/IM CPT-4: 29774 03/12/2017 TRIAMCINOLONE ACET INJ NOS CPT-4: J3301 03/12/2017 THER/PROPH/DIAG INJ SC/IM CPT-4: 35377 11/05/2016 TRIAMCINOLONE ACET INJ NOS CPT-4: J3301 11/05/2016 URINALYSIS NONAUTO W/O SCOPE CPT-4: 55559 09/18/2016 Vital Signs Date Vital 10/12/2018 Blood Pressure 1: 142/76 Code: 8480-6 BMI: 30.1 Code: 03736-2 Heart Rate 1: 83 bpm Height: 5'7" SpO2: 98% Weight: 192 lbs 09/06/2018 Blood Pressure 1: 142/66 Code: 8480-6 BMI: 30.9 Code: 98313-4 Heart Rate 1: 64 bpm Height: 5'7" SpO2: 98% Waist Measure (cm): 99 cm Weight: 197 lbs 08/16/2018 Blood Pressure 1: 140/70 Code: 8480-6 BMI: 34.4 Code: 44640-6 Heart Rate 1: 63 bpm Height: 5'7" SpO2: 95% Weight: 219 lbs 14 oz 04/12/2018 Blood Pressure 1: 160/70 Code: 8480-6 BMI: 33.0 Code: 10181-5 Heart Rate 1: 82 bpm Height: 5'7" SpO2: 95% Weight: 211 lbs 01/20/2018 Blood Pressure 1: 152/66 Code: 8480-6 BMI: 31.8 Code: 45757-2 Heart Rate 1: 52 bpm Height: 5'7" SpO2: 98% Temperature: 36.3 (C) / 97.3 (F) Weight: 203 lbs 12/29/2017 Blood Pressure 1: 168/72 Code: 8480-6 BMI: 32.1 Code: 45557-5 Heart Rate 1: 63 bpm Height: 5'7" SpO2: 98% Weight: 205 lbs 08/24/2017 Blood Pressure 1: 186/70 Code: 8480-6 Blood Pressure 1: 150/70 Code: 8480-6 BMI: 31.8 Code: 68584-2 Heart Rate 1: 53 bpm Height: 5'7" SpO2: 98% Weight: 203 lbs 07/26/2017 Blood Pressure 1: 206/78 Code: 8480-6 Blood Pressure 2: 210/84 Code: 8480-6 BMI: 32.0 Code: 18745-6 Heart Rate 1: 49 bpm Height: 5'7" SpO2: 97% Weight: 204 lbs 07/20/2017 Blood Pressure 1: 148/82 Code: 8480-6 Heart Rate 1: 90 bpm SpO2: 98% 05/27/2017 Blood Pressure 1: 142/72 Code: 8480-6 BMI: 30.5 Code: 30891-0 Heart Rate 1: 97 bpm Height: 5'7" [...] 1: 148/70 Code: 8480-6 BMI: 30.4 Code: 37906-6 Heart Rate 1: 54 bpm Height: 5'7" SpO2: 97% Weight: 194 lbs 03/30/2017 BMI: 33.2 Code: 47259-7 Height: 5'7" Weight: 212 lbs 03/16/2017 Blood Pressure 1: 140/80 Code: 8480-6 BMI: 34.0 Code: 55387-2 Heart Rate 1: 70 bpm Height: 5'7" SpO2: 95% Weight: 217 lbs 03/12/2017 Blood Pressure 1: 142/80 Code: 8480-6 BMI: 34.0 Code: 05643-8 Heart Rate 1: 76 bpm Height: 5'7" SpO2: 92% Weight: 217 lbs 02/17/2017 Blood Pressure 1: 162/64 Code: 8480-6 BMI: 32.9 Code: 32162-7 Heart Rate 1: 59 bpm Height: 5'7" SpO2: 97% Weight: 210 lbs 01/20/2017 Blood Pressure 1: 162/74 Code: 8480-6 BMI: 32.9 Code: 95927-9 Heart Rate 1: 56 bpm Height: 5'7" SpO2: 98% Weight: 210 lbs 11/17/2016 Blood Pressure 1: 156/60 Code: 8480-6 BMI: 34.8 Code: 29322-4 Heart Rate 1: 63 bpm Height: 5'7" SpO2: 96% Weight: 222 lbs 11/05/2016 Blood Pressure 1: 160/68 Code: 8480-6 BMI: 34.5 Code: 78671-1 Heart Rate 1: 66 bpm Height: 5'7" SpO2: 97% Temperature: 36.9 (C) / 98.5 (F) Weight: 220 lbs 09/21/2016 Blood Pressure 1: 180/72 Code: 8480-6 Blood Pressure 1: 166/72 Code: 8480-6 BMI: 32.1 Code: 64981-5 Heart Rate 1: 57 bpm Height: 5'7" SpO2: 98% Weight: 205 lbs 09/16/2016 Blood Pressure 1: 168/70 Code: 8480-6 Heart Rate 1: 49 bpm SpO2: 95% 08/03/2016 Blood Pressure 1: 162/70 Code: 8480-6 BMI: 32.0 Code: 78951-1 Heart Rate 1: 43 bpm Height: 5'7" SpO2: 98% Weight: 204 lbs 07/06/2016 Blood Pressure 1: 170/86 Code: 8480-6 BMI: 32.0 Code: 66562-9 Heart Rate 1: 48 bpm Height: 5'7" [...] data Encounters Encounter Performer Location Codes Date 23892 EST. PATIENT, LEVEL IV Diagnosis: Other acute sinusitis[ICD10: J01.80] Diagnosis: Other allergic rhinitis[ICD10: J30.89] Krysta Camejo MD, [facility] CPT- 4: 35182 10/12/2018 [id number]) 82920 EST. PATIENT, LEVEL IV Diagnosis: Essential (primary) hypertension[ICD10: I10] Diagnosis: Type 2 diabetes mellitus without complications[ICD10: E11.9] Diagnosis: Mixed hyperlipidemia[ICD10: E78.2] Fifi Camejo MD, [facility] CPT- 4: 11688 08/16/2018 ([id number]) 15665 EST. PATIENT, LEVEL IV Diagnosis: Type 2 diabetes mellitus without complications[ICD10: E11.9] Diagnosis: Mixed hyperlipidemia[ICD10: E78.2] Diagnosis: Essential (primary) hypertension[ICD10: I10] Diagnosis: Dysuria[ICD10: R30.0] Diagnosis: Pain in left foot[ICD10: M79.672] Fifi Camejo MD, [facility] CPT- 4: 14801 04/12/2018 [id number]) 60998 EST. PATIENT, LEVEL III Diagnosis: Otalgia, bilateral[ICD10: H92.03] Diagnosis: Other allergic rhinitis[ICD10: J30.89] Yuridia Camejo MD, [facility] CPT-4: 06973 01/20/2018 ([id number]) 78654 EST. PATIENT, LEVEL IV Diagnosis: Type 2 diabetes mellitus without complications[ICD10: E11.9] Diagnosis: Mixed hyperlipidemia[ICD10: E78.2] Diagnosis: Essential (primary) hypertension[ICD10: I10] Diagnosis: Dysuria[ICD10: R30.0] Fifi Camejo MD, [facility] CPT-4: 20395 12/29/2017 ([id number]) 66094 EST. PATIENT, LEVEL IV Diagnosis: Essential (primary) hypertension[ICD10: I10] Diagnosis: Cysts of left upper eyelid[ICD10: H02.824] Diagnosis: Pain in left foot[ICD10: M79.672] Fifi Camejo MD, [facility] CPT- 4: 03381 08/24/2017 ([id number]) 02071 EST. PATIENT, LEVEL III Diagnosis: Essential (primary) hypertension[ICD10: I10] Fifi Camejo MD [facility] CPT-4: 32262 07/26/2017 ([id number]) Miscellaneous no charge Diagnosis: Essential (primary) hypertension[ICD10: I10] Fifi Camejo MD [facility] CPT-4: 75099 07/20/2017 76076 EST. PATIENT, LEVEL III Diagnosis: Otalgia, bilateral[ICD10: H92.03] Diagnosis: Dizziness and giddiness[ICD10: R42] Diagnosis: Mixed hyperlipidemia[ICD10: E78.2] Krysta Camejo MD, [facility] CPT-4: 83848 05/27/2017 ([id number]) Miscellaneous no charge Diagnosis: Essential (primary) hypertension[ICD10: I10] Krysta Camejo MD, [facility] CPT-4: 58643 05/07/2017 ([id number]) 56313 EST. PATIENT, LEVEL IV Diagnosis: Otalgia, bilateral[ICD10: H92.03] Diagnosis: Dizziness and giddiness[ICD10: R42] Diagnosis: Orthostatic hypotension[ICD10: I95.1] Fifi Camejo MD, [facility] CPT-4: 15231 05/03/2017 10730 EST. PATIENT, LEVEL IV Diagnosis: Essential (primary) hypertension[ICD10: I10] Diagnosis: Type 2 diabetes mellitus without complications[ICD10: E11.9] Diagnosis: Gastro-esophageal reflux disease without esophagitis[ICD10: K21.9] Diagnosis: Dizziness and giddiness[ICD10: R42] Diagnosis: Dysuria[ICD10: R30.0] Diagnosis: Other malaise[ICD10: R53.81] Krysta Camejo MD, [facility] CPT-4: 28563 04/15/2017 ([id number]) 95945 EST. PATIENT, LEVEL IV Diagnosis: Type 2 diabetes mellitus without complications[ICD10: E11.9] Diagnosis: Otalgia, bilateral[ICD10: H92.03] Diagnosis: Essential (primary) hypertension[ICD10: I10] Diagnosis: Other allergic rhinitis[ICD10: J30.89] Fifi Camejo MD [facility] CPT-4: 90545 03/16/2017 93147 EST. PATIENT, LEVEL IV Diagnosis: Other acute sinusitis[ICD10: J01.80] Diagnosis: Acute suppurative otitis media without spontaneous rupture of ear drum, bilateral[ICD10: H66.003] Diagnosis: Other allergic rhinitis[ICD10: J30.89] Krysta Camejo MD [facility] CPT- 4: 42668 03/12/2017 ([id number]) 37489 EST. PATIENT, LEVEL IV Diagnosis: Essential (primary) hypertension[ICD10: I10] Diagnosis: Type 2 diabetes mellitus without complications[ICD10: E11.9] Fifi Camejo MD [facility] CPT-4: 25875 02/17/2017 ([id number]) 78959 EST. PATIENT, LEVEL IV Diagnosis: Essential (primary) hypertension[ICD10: I10] Diagnosis: Type 2 diabetes mellitus without complications[ICD10: E11.9] Fifi Camejo MD [facility] CPT-4: 75123 01/20/2017 ([id number]) 07418 EST. PATIENT, LEVEL IV Diagnosis: Essential (primary) hypertension[ICD10: I10] Diagnosis: Type 2 diabetes mellitus without complications[ICD10: E11.9] Diagnosis: Gastro-esophageal reflux disease without esophagitis[ICD10: K21.9] Fifi Camejo MD, [facility] CPT-4: 31687 11/17/2016 ([id number]) 75973 EST. PATIENT, LEVEL III Diagnosis: Acute bronchitis due to other specified organisms[ICD10: J20.8] Diagnosis: Cough[ICD10: R05] Fifi Camejo MD, [facility] CPT-4: 49389 11/05/2016 ([id number]) 77617 EST. PATIENT, LEVEL IV Diagnosis: Essential (primary) hypertension[ICD10: I10] Diagnosis: Type 2 diabetes mellitus without complications[ICD10: E11.9] RANDALL Redmond MD CPT-4: 89777 09/21/2016 ([id number]) Miscellaneous no charge Diagnosis: Essential (primary) hypertension[ICD10: I10] RANDALL Redmond MD CPT-4: 75563 09/16/2016 ([id number]) 43035 EST. PATIENT, LEVEL III Diagnosis: Type 2 diabetes mellitus without complications[ICD10: E11.9] Diagnosis: Essential (primary) hypertension[ICD10: I10] Fifi Camejo MD, [facility] CPT-4: 66679 08/03/2016 ([id number]) OFFICE VISIT, NEW - LEVEL 4 Diagnosis: Essential (primary) hypertension[ICD10: I10] Diagnosis: Type 2 diabetes mellitus without complications[ICD10: E11.9] Diagnosis: Carpal tunnel syndrome, left upper limb[ICD10: G56.02] Diagnosis: Right upper quadrant pain[ICD10: R10.11] Diagnosis: Mixed hyperlipidemia[ICD10: E78.2] Fifi Camejo MD, [facility] CPT- 4: 03592 07/06/2016 Plan of Care Planned Activity Notes Codes Status Date Visit Plan: injection today 01/02/2019 Patient Education: Patient Medication Summary Completed [...] spray. 10/12/2018 [phone] ([facility] Complex 10/12/2018 Patient Education: [...] surrogate. 09/06/2018 App[phone] [phone] [facility] - Annual Wellness Visit 09/06/2018 Patient Education: Patient Medication Summary Completed 09/06/2018 Appointment: [facility] [phone] [phone] [facility] - Annual Wellness Visit 08/29/2018 Visit Plan: [...] me dications. 08/16/2018 Appointment: [phone] [facility] (15 min) Moderate 08/16/2018 Patient [...] foot. 04/12/2018 Appointment: [phone] [facility] (15 min) Moderate 04/12/2018 Patient Education: Patient Medication Summary Completed 04/12/2018 Care Plan: Referral Order SNOMED-CT : [id number] Pending 04/12/2018 Patient Education: Patient Medication Summary [...] spray. 01/20/2018 Appointment: [facility] [phone] [phone] (15 min) Moderate 01/20/2018 Patient Education: [...] controlled. 12/29/2017 Appointment: [facility]el[facility] [phone] [facility] [place] (15 min) Moderate 12/29/2017 Patient Education: [...] metatarsal - recommended referral to Dr. Chago Singh 08/24/2017 Appointment: Fifi Camejo WPtel: [phone] [facility] (15 min) Moderate 08/24/2017 Patient Education: Patient Medication Summary Completed 08/24/2017 Care Plan: Referral Order SNOMED-CT : [id number] Pending 08/24/2017 Visit Plan: Hypertension - uncontrolled [...] above. 07/26/2017 Appointment: Fifi Camejo WPtel: [phone] [facility] (15 min) Moderate 07/26/2017 Patient Education: Patient [...] to medications. 05/27/2017 Appointment: [phone] [facility] ([facility] min) Moderate 05/27/2017 Patient Education: Patient Medication Summary Completed 05/27/2017 Appointment: Nurse Visit 05/07/2017 Patient Education: Patient Medication Summary Completed 05/07/2017 Visit Plan: Persistent vergito with bilateral air-fluid levels and ear pain. Pt was seen by Dr. Calvo- she did not like his response to her complaints. I have recommended a referral to ENT in [place] or [place]. I suspect she may need myringotomy tubes. Pt to continue with flonase. Orthostatic hypotension - dc doxazosin. Monitor blood pressures at home. stop the doxazosin meclizine change to 1/2 pill three times a day come back on Wednesday for blood pressure check 05/03/2017 Appointment: Fifi Caemjo [facility]el[facility] [phone] [facility] (15 min) Moderate 05/03/2017 Patient Education: Patient Medication Summary Completed 05/03/2017 Appointment: Fifi Camejo [facility]Ptel[facility] [phone] [facility] (15 min) Moderate 04/21/2017 Visit [...] glucose control. 04/15/2017 Appointment: Krysta Dale WPtel: [address] [place], [place] [id number] (30 min) [facility] 04/15/2017 Patient Education: Patient Medication Summary [...] surrogate. 03/30/2017 Appointment: Chito [facility]rysta [facility]el[facility] [phone] [facility] [facility] - Annual Wellness Visit 03/30/2017 Patient Education: [...] have a referral to dr. calvo - [facility] sometime after March 24 Hypertension - well controlled - continue with current medications, continue with no added salt diet. Pt has been encouraged to exercise daily. The pt has been advised to call the office if there are any acute concerns about change in blood pressure readings at home. 03/16/2017 Appointment: Fifi Camejo [facility]Ptel[facility] [phone] [facility] (30 min) Complex 03/16/2017 Patient Education: Patient Medication Summary Completed 03/16/2017 Patient Education: Obesity Completed 03/16/2017 Care Plan: Referral Order SNOMED-CT : [id number] Pending 03/16/2017 Visit Plan: Allergies - chronic [...] 03/12/2017 Appointment: [phone] [facility] (15 min) Moderate 03/12/2017 Patient Education: [...] controlled. 02/17/2017 Appointment: Fifi Camejo WPtel: [phone] [facility] (30 min) Complex 02/17/2017 Patient [...] controlled. 01/20/2017 Appointment: Fifi Camejo WPtel: [phone] [facility] (30 min) Complex 01/20/2017 Patient [...] dexilant 11/17/2016 Appointment: Fifi Camejo WPtel: [phone] [facility] (30 min) Complex 11/17/2016 Patient Education: Patient [...] range. 09/21/2016 Appointment: Fifi Camejo WPtel: [phone] [facility] (15 min) Moderate 09/21/2016 Patient Education: [...] time. 08/03/2016 Appointment: Fifi Camejo WPtel: [phone] [facility] [place] (15 min) Moderate 08/03/2016 Patient Education: [...] improving. 07/06/2016 Appointment: Fifi Camejo WPtel: [phone] [facility] New Patient 07/06/2016 Patient Education: Patient [...] monitor your heart rate Consider referral for detective and intelligence analyst for possible stress test if needed. Call [...] monitor your heart rate Consider referral for detective and intelligence analyst for possible stress test if needed. Call [...] have recommended a referral to ENT in [place] or [place]. I suspect she may need myringotomy tubes. [...] - recommended referral to Dr. Anders in [place]
--- OUTSIDE RECORDS SUMMARY | 2019-03-08 16:41 | XMS REPORT | CCD ---
Author Author Fifi Camejo MD, [facility] Address [address] [place] [address] Phone Care Team Providers Care Associate Professor Of Archaeology Name Role Phone PP Unavailable CCM Unavailable Summary Purpose Interface Exchange Insurance Providers Payer name Policy type / Coverage type Covered democrat ID Effective Begin Date Effective End Date WPS Medicare Part B Medicare Part B [id number] 2018 Unknown FOR LIFE WPS Medicare Part B [id number] Unknown Family history Father Diagnosis Age At Onset Cancer Unknown Brother Diagnosis Age At Onset Diabetes mellitus Type 2 Unknown Heart Attack Unknown Social History Social History Element Codes Description Effective Dates Marital status Unknown Wu 11/05/2016 Number of children Unknown 1 07/06/2016 Employment Unknown Retired 07/06/[address]: 543745987 Never smoker 07/06/[address]: 679799103 Never drinks alcohol 07/06/2016 Allergies, Adverse Reactions, Alerts Substance Reaction Codes Entered Date Inactivated Date Status Protonix hives RxNorm: 856598 09/06/2018 No Inactive Date Active IV DYE, [...] Kenalog 40 mg/mL suspension for injection RxNorm: 1011310 Milliliter(s) Inj 01/02/2019 01/02/2019 Inactive Zithromax Z-Juan 250 mg tablet RxNorm: 062160 1 Tablet(s) PO UD 12/30/2018 01/03/2019 Active zpack as directed metoprolol tartrate 50 mg tablet RxNorm: 019624 1/2 TABLET(S) PO BID 12/02/2018 No Stop Date Active amlodipine 10 mg tablet RxNorm: 758181 TAKE 1 TABLET DAILY 10/24/2018 No Stop Date Active cefdinir 300 mg capsule RxNorm: 380664 1 Capsule(s) PO BID 10/19/2018 10/22/2018 Inactive Zithromax Z-Juan 250 mg tablet RxNorm: 749794 1 Tablet(s) PO UD 10/19/2018 10/23/2018 Inactive zpack as directed glimepiride 4 mg tablet RxNorm: 223502 Tablet(s) 1 TABLET(S) PO DAILY 10/12/2018 No Stop Date Active cefdinir 300 mg capsule RxNorm: 080454 1 Capsule(s) PO BID 10/12/2018 10/18/2018 Inactive Zithromax Z-Juan 250 mg tablet RxNorm: 766712 1 Tablet(s) PO UD 10/12/2018 10/16/2018 Inactive zpack as directed Tessalon Perles 100 mg capsule RxNorm: 071954 2 Capsule(s) PO TID as needed cough 10/12/2018 10/16/2018 Inactive Kenalog 40 mg/mL suspension for injection RxNorm: 4754345 1 Milliliter(s) Inj 10/12/2018 10/12/2018 Inactive Zithromax Z-Juan 250 mg tablet RxNorm: 655940 1 Tablet(s) PO UD 08/22/2018 08/26/2018 Inactive zpack as directed clonidine HCl 0.1 mg tablet RxNorm: 243717 1 Tablet(s) PO QAM 08/16/2018 08/10/2019 Active losartan 100 mg tablet RxNorm: 913949 1 TABLET(S) PO DAILY FOR HIGH BLOOD PRESSURE 08/12/2018 No Stop Date Active alprazolam 0.5 mg tablet RxNorm: 355769 1 Tablet(s) PO TID as needed anxiety 06/30/2018 12/26/2018 Inactive fluticasone 50 mcg/actuation nasal spray,suspension RxNorm: 8250678 USE 1 SPRAY NASALLY TWICE A DAY 05/06/2018 No Stop Date Active clonidine HCl 0.1 mg tablet RxNorm: 741234 1 Tablet(s) PO BID 04/14/2018 08/15/2018 Inactive clonidine HCl 0.1 mg tablet RxNorm: 312320 1 Tablet(s) PO TID 04/12/2018 04/13/2018 Inactive Zithromax Z-Juan 250 mg tablet RxNorm: 344914 1 Tablet(s) PO UD 01/20/2018 08/21/2018 Inactive disregard first rx for 1 - patient needs 3 packs-please dispense generic azithromycin Zithromax Z-Juan 250 mg tablet RxNorm: 489935 1 Tablet(s) PO UD 01/20/2018 01/19/2018 Inactive Zithromax Z-Juan 250 mg tablet RxNorm: 781430 1 Tablet(s) PO UD 01/20/2018 01/19/2018 Inactive disregard first rx for 1 - patient needs 3 packs Zithromax Z-Juan 250 mg tablet RxNorm: 332984 1 Tablet(s) PO UD 01/20/2018 01/19/2018 Inactive atorvastatin 10 mg tablet RxNorm: 756946 1 Tablet(s) PO QPM 12/30/2017 12/24/2018 Inactive atorvastatin 10 mg tablet RxNorm: 155850 1 Tablet(s) PO QPM 12/30/2017 12/29/2017 Inactive clonidine HCl 0.1 mg tablet RxNorm: 435023 1 Tablet(s) PO BID 12/29/2017 04/11/2018 Inactive Lipitor 10 mg tablet RxNorm: 493210 1 Tablet(s) PO QPM 12/29/2017 12/29/2017 Inactive OKAY TO DISPENSE GENERIC metoprolol tartrate 50 mg tablet RxNorm: 967650 1/2 Tablet(s) PO BID 12/29/2017 12/01/2018 Inactive alprazolam 0.5 mg tablet RxNorm: 100328 1 Tablet(s) PO TID as needed anxiety 11/18/2017 05/16/2018 Inactive glimepiride 4 mg tablet RxNorm: 232887 1 TABLET(S) PO DAILY 11/15/2017 10/11/2018 Inactive alprazolam 0.5 mg tablet RxNorm: 824010 1 Tablet(s) PO TID as needed anxiety 09/20/2017 11/17/2017 Inactive Zithromax Z-Juan 250 mg tablet RxNorm: 302776 1 Tablet(s) PO UD 09/20/2017 12/28/2017 Inactive Zithromax Z-Juan 250 mg tablet RxNorm: 277013 1 Tablet(s) PO UD 09/14/2017 09/19/2017 Inactive clonidine HCl 0.1 mg tablet RxNorm: 693076 1/2 Tablet(s) PO BID 08/24/2017 12/28/2017 Inactive amlodipine 10 mg tablet RxNorm: 438328 1 Tablet(s) PO daily 08/24/2017 08/18/2018 Inactive erythromycin 5 mg/gram (0.5 %) eye ointment RxNorm: 071357 1 Gram(s) ophthalmic (eye) QID left eye cyst 08/24/2017 09/06/2017 Inactive losartan 100 mg tablet RxNorm: 154835 1 Tablet(s) PO daily for high blood pressure 08/16/2017 08/10/2018 Inactive metoprolol tartrate 50 mg tablet RxNorm: 462285 1/2 Tablet(s) PO BID 07/26/2017 12/28/2017 Inactive clonidine HCl 0.1 mg tablet RxNorm: 594296 1/2 Tablet(s) PO BID 07/26/2017 08/23/2017 Inactive metoprolol tartrate 50 mg tablet RxNorm: 730548 1 Tablet(s) PO BID 07/21/2017 07/25/2017 Inactive amlodipine 10 mg tablet RxNorm: 390759 1 TABLET(S) PO DAILY 06/29/2017 08/23/2017 Inactive Lipitor 10 mg tablet RxNorm: 765910 1 Tablet(s) PO QPM 05/27/2017 12/28/2017 Inactive OKAY TO DISPENSE GENERIC alprazolam 0.5 mg tablet RxNorm: 407979 1 Tablet(s) PO TID as needed anxiety 05/18/2017 08/15/2017 Inactive hydrochlorothiazide 12.5 mg tablet RxNorm: 738139 1 Tablet(s) PO daily 04/22/2017 05/21/2017 Inactive hydrochlorothiazide 12.5 mg tablet RxNorm: 505770 1 Tablet(s) PO daily 04/22/2017 04/21/2017 Inactive Cipro 500 mg tablet RxNorm: 804138 1 Tablet(s) PO BID 04/16/2017 04/22/2017 Inactive Zofran 4 mg tablet RxNorm: 237251 1 Tablet(s) PO BID as needed nausea and vomitting 04/15/2017 04/19/2017 Inactive Lipitor 10 mg tablet RxNorm: 708598 1 Tablet(s) PO QPM 03/30/2017 05/26/2017 Inactive OKAY TO DISPENSE GENERIC Kenalog 40 mg/mL suspension for injection RxNorm: 8514201 1 Milliliter(s) Inj 03/16/2017 03/16/2017 Inactive doxazosin 4 mg tablet RxNorm: 751356 1.5 Tablet(s) PO BID 03/16/2017 05/02/2017 Inactive prednisone 10 mg tablets in a dose pack RxNorm: 323633 Tablet(s) take dose pack as directed PO take with food 03/16/2017 05/23/2017 Inactive Kenalog 40 mg/mL suspension for injection RxNorm: 6463908 Milliliter(s) Inj 03/12/2017 03/12/2017 Inactive Zithromax Z-Juan 250 mg tablet RxNorm: 177859 1 Tablet(s) PO daily 03/11/2017 03/10/2017 Inactive zpack as directed Zithromax Z-Juan 250 mg tablet RxNorm: 290458 1 Tablet(s) PO daily 03/11/2017 03/15/2017 Inactive zpack as directed doxazosin 4 mg tablet RxNorm: 000778 1.5 Tablet(s) PO BID 02/12/2017 03/15/2017 Inactive fluticasone 50 mcg/actuation nasal spray,suspension RxNorm: 5419125 1 SPRAY NASAL BID 02/05/2017 05/05/2018 Inactive metoprolol tartrate 75 mg tablet RxNorm: 7025783 1 Tablet(s) PO BID 01/29/2017 07/19/2017 Inactive metoprolol tartrate 75 mg tablet RxNorm: 2774403 1 Tablet(s) PO BID 01/29/2017 01/28/2017 Inactive doxazosin 4 mg tablet RxNorm: 856944 1 Tablet(s) PO BID 01/20/2017 02/11/2017 Inactive pantoprazole 40 mg tablet,delayed release RxNorm: 661265 1 Tablet(s) PO daily 12/24/2016 01/19/2017 Inactive pantoprazole 40 mg tablet,delayed release RxNorm: 544174 1 Tablet(s) PO daily 12/24/2016 12/23/2016 Inactive alprazolam 0.5 mg tablet RxNorm: 261091 1 Tablet(s) PO TID as needed anxiety 12/03/2016 04/01/2017 Inactive fluticasone 50 mcg/actuation nasal spray,suspension RxNorm: 2947937 1 [place] NASAL BID 11/25/2016 12/24/2016 Inactive Dexilant 60 mg capsule, delayed release RxNorm: 930923 1 Capsule(s) PO daily 11/25/2016 11/24/2016 Inactive fluticasone 50 mcg/actuation nasal spray,suspension RxNorm: 5582572 1 [place] NASAL BID 11/25/2016 11/24/2016 Inactive fluticasone 50 mcg/actuation nasal spray,suspension RxNorm: 1819796 1 [place] NASAL BID 11/25/2016 11/24/2016 Inactive Dexilant 60 mg capsule, delayed release RxNorm: 897416 1 Capsule(s) PO daily 11/25/2016 12/23/2016 Inactive ProAir RespiClick 90 mcg/actuation breath activated RxNorm: 3818033 1 INH bid and QID as needed 11/19/2016 05/17/2017 Inactive Please send STAT Flonase Allergy Relief 50 mcg/actuation nasal spray,suspension RxNorm: 8920474 1 [place] NASAL BID 11/19/2016 11/24/2016 Inactive glimepiride 4 mg tablet RxNorm: 477034 1 Tablet(s) PO daily 11/19/2016 11/13/2017 Inactive metoprolol tartrate 50 mg tablet RxNorm: 911355 1 Tablet(s) PO BID 11/19/2016 01/28/2017 Inactive Flonase Allergy Relief 50 mcg/actuation nasal spray,suspension RxNorm: 8778465 1 [place] NASAL BID 11/17/2016 11/18/2016 Inactive metoprolol tartrate 50 mg tablet RxNorm: 174574 1 Tablet(s) PO BID 11/17/2016 11/18/2016 Inactive ProAir RespiClick 90 mcg/actuation breath activated RxNorm: 2135415 1 INH bid and QID as needed 11/17/2016 11/16/2016 Inactive glimepiride 4 mg tablet RxNorm: 677724 1 Tablet(s) PO daily 11/17/2016 11/18/2016 Inactive ProAir RespiClick 90 mcg/actuation breath activated RxNorm: 3968480 1 INH bid and QID as needed 11/17/2016 11/18/2016 Inactive Please send STAT Kenalog 40 mg/mL suspension for injection RxNorm: 2645595 1 Milliliter(s) Inj 11/05/2016 11/05/2016 Inactive azithromycin 250 mg tablet RxNorm: 889124 Tablet(s) PO 2 tabs on day #1, then daily x 4 days 11/05/2016 12/23/2016 Inactive doxazosin 4 mg tablet RxNorm: 290801 1 Tablet(s) PO QPM 10/02/2016 01/19/2017 Inactive doxazosin 4 mg tablet RxNorm: 802488 1 Tablet(s) PO QPM 09/29/2016 10/01/2016 Inactive doxazosin 4 mg tablet RxNorm: 825713 1 Tablet(s) PO QPM 09/21/2016 09/28/2016 Inactive Cipro 500 mg tablet RxNorm: 258851 1 Tablet(s) PO BID 09/18/2016 09/17/2016 Inactive Cipro 500 mg tablet RxNorm: 195885 1 Tablet(s) PO BID 09/18/2016 09/24/2016 Inactive losartan 100 mg tablet RxNorm: 669550 1 Tablet(s) PO daily for high blood pressure 09/16/2016 09/15/2016 Inactive alprazolam 0.5 mg tablet RxNorm: 842221 1 Tablet(s) PO TID as needed anxiety 09/16/2016 11/14/2016 Inactive losartan 100 mg tablet RxNorm: 189234 1 Tablet(s) PO daily for high blood pressure 09/16/2016 08/15/2017 Inactive amlodipine 10 mg tablet RxNorm: 705415 1 Tablet(s) PO daily 08/03/2016 06/28/2017 Inactive Zyrtec 10 mg tablet RxNorm: 1368511 1 Tablet(s) PO daily 08/03/2016 09/15/2016 Inactive losartan 25 mg tablet RxNorm: 391695 1 Tablet(s) PO daily 07/08/2016 09/15/2016 Inactive Lipitor 10 mg tablet RxNorm: 736978 1 Tablet(s) PO QPM 07/08/2016 07/17/2016 Inactive OKAY TO DISPENSE GENERIC Lipitor 10 mg tablet RxNorm: 646133 1 Tablet(s) PO QPM 07/06/2016 07/07/2016 Inactive OKAY TO DISPENSE GENERIC losartan 25 mg tablet RxNorm: 417003 1 Tablet(s) PO daily 07/06/2016 07/07/2016 Inactive meclizine 25 mg tablet RxNorm: 964590 1 Tablet(s) PO TID as needed No Start Date Active Parafon Forte DSC 500 mg tablet RxNorm: 907054 1 Tablet(s) PO QID No Start Date Active Pazeo 0.7 % eye drops RxNorm: 3124418 Drop(s) ophthalmic (eye) as needed dry eyes No Start Date Active Zithromax Z-Juan 250 mg tablet RxNorm: 479740 1 Tablet(s) PO UD No Start Date 09/13/2017 Inactive glimepiride 4 mg tablet RxNorm: 276627 1 Tablet(s) PO daily No Start Date 11/16/2016 Inactive metoprolol tartrate 100 mg tablet RxNorm: 638667 1 Tablet(s) PO BID No Start Date 07/21/2017 Inactive naproxen 500 mg tablet RxNorm: 421240 1 Tablet(s) PO BID No Start Date 03/23/2017 Inactive amlodipine 5 mg tablet RxNorm: 431902 1 Tablet(s) PO daily No Start Date 08/02/2016 Inactive metoprolol tartrate 50 mg tablet RxNorm: 564479 1 Tablet(s) PO BID No Start Date 11/16/2016 Inactive Medication Administered Medication Codes Instructions Start Date Status Kenalog 40 mg/mL suspension for injection RxNorm: 5665020 Milliliter 01/02/2019 Active Kenalog 40 mg/mL suspension for injection RxNorm: 1876651 1Milliliter 10/12/2018 No longer Active Kenalog 40 mg/mL suspension for injection RxNorm: 0587852 1Milliliter 03/16/2017 No longer Active Kenalog 40 mg/mL suspension for injection RxNorm: 4347882 Milliliter 03/12/2017 No longer Active Kenalog 40 mg/mL suspension for injection RxNorm: 1218146 1Milliliter 11/05/2016 No longer Active Immunizations Vaccine [...] Lipid Ord30 C/HDL 3.1 Ratio 08/18/2018 Microalbumin Zsu016 MicroAlb 7.5 mg/dL 08/18/2018 Cbc With Differential [...] 29.6 pg 08/18/2018 Cbc With Differential Ord2 [place]% 10.6 % 08/18/2018 Cbc With Differential Ord2 [...] 1.69 K/ul 08/18/2018 Cbc With Differential Ord2 [place] ABS# 0.6 K/ul 08/18/2018 Cbc With Differential Ord2 Eos ABS# 0.3 K/ul 08/18/2018 Cbc With Differential Ord2 Baso ABS# 0.0 K/ul 08/18/2018 Comp Metabolic Wbh706 NA 137 mEq/L 08/18/2018 Comp Metabolic Ooy024 K 3.8 mEq/L 08/18/2018 Comp Metabolic Ued303 CL 103 mEq/L 08/18/2018 Comp Metabolic Wdp189 CO2 26.0 mEq/L 08/18/2018 Comp Metabolic Uhc492 ANION GAP 12 08/18/2018 Comp Metabolic Crm232 GLUCOSE 110 mg/dL 08/18/2018 Comp Metabolic Xhd426 Creat 1.2 mg/dL 08/18/2018 Comp Metabolic Rto334 eGFR 47 ml/min/1.73m2 08/18/2018 Comp Metabolic Umu605 BUN 25 mg/dL 08/18/2018 Comp Metabolic Wiv453 B/C Ratio 21.0 Ratio 08/18/2018 Comp Metabolic Jpo452 CALCIUM 9.4 mg/dL 08/18/2018 Comp Metabolic Ypf468 ALK PHOS 99 U/L 08/18/2018 Comp Metabolic Fjc807 AST(SGOT) 31 U/L 08/18/2018 Comp Metabolic Tta994 ALT(SGPT) 27 U/L 08/18/2018 Comp Metabolic Bma700 BILI T 0.7 mg/dL 08/18/2018 Comp Metabolic Wjw059 ALBUMIN 4.2 g/dL 08/18/2018 Comp Metabolic Bhl917 TPRO 6.7 g/dL 08/18/2018 Comp Metabolic Fsx489 GLOB 2.5 g/dL 08/18/2018 Comp Metabolic Jzs108 A/G Ratio 1.7 Ratio 08/18/2018 Comp Metabolic Iap964 Osmo 279 mOsmo 08/18/2018 %Hba1C Dey854 % HbA1c 68876- 6 6.1 % 08/18/2018 %Hba1C Dva980 Gluc Ave 128 mg/dL 08/18/2018 Tsh Ord6 TSH (3rd IS) 3.93 uIU/mL 08/18/2018 Lipid Ord30 CHOL 146 mg/dL 04/15/2018 Lipid Ord30 HDL 62.0 mg/dl 04/15/2018 Lipid Ord30 TRIG 88 mg/dL 04/15/2018 Lipid Ord30 LDL 66 mg/dL 04/15/2018 Lipid Ord30 C/HDL 2.4 Ratio 04/15/2018 %Hba1C Zik110 % HbA1c 78590- 6 6.3 % 04/15/2018 %Hba1C Sbx031 Gluc Ave 134 mg/dL 04/15/2018 Cbc With [...] 30.2 pg 04/15/2018 Cbc With Differential Ord2 [place]% 6.8 % 04/15/2018 Cbc With Differential Ord2 [...] 2.10 K/ul 04/15/2018 Cbc With Differential Ord2 [place] ABS# 0.5 K/ul 04/15/2018 Cbc With Differential Ord2 Eos ABS# 0.2 K/ul 04/15/2018 Cbc With Differential Ord2 Baso ABS# 0.0 K/ul 04/15/2018 Comp Metabolic Ygf162 NA 140 mEq/L 04/15/2018 Comp Metabolic Kkq705 K 4.3 mEq/L 04/15/2018 Comp Metabolic Rqr235 CL 106 mEq/L 04/15/2018 Comp Metabolic Tit784 CO2 23.0 mEq/L 04/15/2018 Comp Metabolic Dca669 ANION GAP 15 04/15/2018 Comp Metabolic Fkx998 GLUCOSE 90 mg/dL 04/15/2018 Comp Metabolic Ffp897 Creat 1.2 mg/dL 04/15/2018 Comp Metabolic Imc448 eGFR 45 ml/min/1.73m2 04/15/2018 Comp Metabolic Dol752 BUN 28 mg/dL 04/15/2018 Comp Metabolic Lml693 B/C Ratio 22.8 Ratio 04/15/2018 Comp Metabolic Fck570 CALCIUM 9.5 mg/dL 04/15/2018 Comp Metabolic Fym439 ALK PHOS 95 U/L 04/15/2018 Comp Metabolic Yhu757 AST(SGOT) 20 U/L 04/15/2018 Comp Metabolic Wja269 ALT(SGPT) 13 U/L 04/15/2018 Comp Metabolic Axd254 BILI T 0.5 mg/dL 04/15/2018 Comp Metabolic Jwu619 ALBUMIN 4.1 g/dL 04/15/2018 Comp Metabolic Bhz257 TPRO 6.6 g/dL 04/15/2018 Comp Metabolic Gty407 GLOB 2.5 g/dL 04/15/2018 Comp Metabolic Iif676 A/G Ratio 1.6 Ratio 04/15/2018 Comp Metabolic Gfh173 Osmo 284 mOsmo 04/15/2018 Comp Metabolic Ofo206 NA 137 mEq/L 02/04/2018 Comp Metabolic Imr040 K 4.0 mEq/L 02/04/2018 Comp Metabolic Nyd672 CL 104 mEq/L 02/04/2018 Comp Metabolic Pws030 CO2 27.0 mEq/L 02/04/2018 Comp Metabolic Iue002 ANION GAP 10 02/04/2018 Comp Metabolic Kgp881 GLUCOSE 212 mg/dL 02/04/2018 Comp Metabolic Jhx012 Creat 1.2 mg/dL 02/04/2018 Comp Metabolic Qfc701 eGFR 47 ml/min/1.73m2 02/04/2018 Comp Metabolic Thn862 BUN 20 mg/dL 02/04/2018 Comp Metabolic Mck812 B/C Ratio 16.8 Ratio 02/04/2018 Comp Metabolic Ewb692 CALCIUM 8.9 mg/dL 02/04/2018 Comp Metabolic Sbz501 ALK PHOS 107 U/L 02/04/2018 Comp Metabolic Nfi597 AST(SGOT) 17 U/L 02/04/2018 Comp Metabolic Myy590 ALT(SGPT) 11 U/L 02/04/2018 Comp Metabolic Xrr682 BILI T 0.4 mg/dL 02/04/2018 Comp Metabolic Bzs591 ALBUMIN 3.8 g/dL 02/04/2018 Comp Metabolic Jhi123 TPRO 6.2 g/dL 02/04/2018 Comp Metabolic Hvl436 GLOB 2.4 g/dL 02/04/2018 Comp Metabolic Mhb956 A/G Ratio 1.6 Ratio 02/04/2018 Comp Metabolic Joo325 Osmo 283 mOsmo 02/04/2018 %Hba1C Oqk656 % HbA1c 37715- 6 6.3 % 12/30/2017 %Hba1C Aeh999 Gluc Ave 134 mg/dL 12/30/2017 Comp Metabolic Zui747 NA 142 mEq/L 12/30/2017 Comp Metabolic Gyg704 K 4.4 mEq/L 12/30/2017 Comp Metabolic Tdi349 CL 103 mEq/L 12/30/2017 Comp Metabolic Brw016 CO2 31.0 mEq/L 12/30/2017 Comp Metabolic Sgc649 ANION GAP 12 12/30/2017 Comp Metabolic Lce876 GLUCOSE 119 mg/dL 12/30/2017 Comp Metabolic Fxp283 Creat 1.4 mg/dL 12/30/2017 Comp Metabolic Ylv951 eGFR 41 ml/min/1.73m2 12/30/2017 Comp Metabolic Cdc403 BUN 27 mg/dL 12/30/2017 Comp Metabolic Epm246 B/C Ratio 20.0 Ratio 12/30/2017 Comp Metabolic Let668 CALCIUM 9.9 mg/dL 12/30/2017 Comp Metabolic Vbz815 ALK PHOS 106 U/L 12/30/2017 Comp Metabolic Kja107 AST(SGOT) 20 U/L 12/30/2017 Comp Metabolic Puv614 ALT(SGPT) 13 U/L 12/30/2017 Comp Metabolic Mwf914 BILI T 0.7 mg/dL 12/30/2017 Comp Metabolic Gns020 ALBUMIN 4.2 g/dL 12/30/2017 Comp Metabolic Key545 TPRO 6.7 g/dL 12/30/2017 Comp Metabolic Prs084 GLOB 2.6 g/dL 12/30/2017 Comp Metabolic Mkt288 A/G Ratio 1.6 Ratio 12/30/2017 Comp Metabolic Tea181 Osmo 289 mOsmo 12/30/2017 Lipid Ord30 CHOL 167 mg/dL 12/30/2017 Lipid Ord30 HDL 63.0 mg/dl 12/30/2017 Lipid Ord30 TRIG 89 mg/dL 12/30/2017 Lipid Ord30 LDL 86 mg/dL 12/30/2017 Lipid Ord30 C/HDL 2.7 Ratio 12/30/2017 Urine Culture Ucult Preliminary NO Growth Day 1 04/17/2017 Urine Culture Ucult Complete NO Growth Day 2 04/17/2017 Comp Metabolic Tvf155 NA 143 mEq/L 04/15/2017 Comp Metabolic Jrc742 K 4.6 mEq/L 04/15/2017 Comp Metabolic Zkb501 CL 110 mEq/L 04/15/2017 Comp Metabolic Bxx784 CO2 30.0 mEq/L 04/15/2017 Comp Metabolic Mqt385 ANION GAP 8 04/15/2017 Comp Metabolic Yvv223 GLUCOSE 159 mg/dL 04/15/2017 Comp Metabolic Hav327 Creat 1.1 mg/dL 04/15/2017 Comp Metabolic Dra926 eGFR 54 ml/min/1.73m2 04/15/2017 Comp Metabolic Qas280 BUN 27 mg/dL 04/15/2017 Comp Metabolic Apf844 B/C Ratio 25.7 Ratio 04/15/2017 Comp Metabolic Fnf413 CALCIUM 9.4 mg/dL 04/15/2017 Comp Metabolic Gsd659 ALK PHOS 93 U/L 04/15/2017 Comp Metabolic Slx768 AST(SGOT) 19 U/L 04/15/2017 Comp Metabolic Vqn182 ALT(SGPT) 18 U/L 04/15/2017 Comp Metabolic Hll749 BILI T 0.6 mg/dL 04/15/2017 Comp Metabolic Wbu445 ALBUMIN 3.9 g/dL 04/15/2017 Comp Metabolic Bss393 TPRO 6.5 g/dL 04/15/2017 Comp Metabolic Mtw337 GLOB 2.6 g/dL 04/15/2017 Comp Metabolic Wvm028 A/G Ratio 1.5 Ratio 04/15/2017 Comp Metabolic Mdr211 Osmo 293 mOsmo 04/15/2017 Tsh Ord6 hTSH II 2.05 uIU/mL 04/15/2017 %Hba1C Gqw143 % HbA1c 83828- 6 6.3 % 04/15/2017 %Hba1C Jqm394 Gluc Ave 134 mg/dL 04/15/2017 Cbc With [...] 29.0 pg 04/15/2017 Cbc With Differential Ord2 [place]% 6.9 % 04/15/2017 Cbc With Differential Ord2 [...] 1.58 K/ul 04/15/2017 Cbc With Differential Ord2 [place] ABS# 0.5 K/ul 04/15/2017 Cbc With Differential [...] Ord28 U-Com Culture to follow 04/15/2017 %Hba1C Upj626 % HbA1c 10941- 6 5.8 % 01/07/2017 %Hba1C Rne845 Gluc Ave 120 mg/dL 01/07/2017 Urine Culture Ucult Preliminary NO Growth Day 1 09/21/2016 Urine Culture Ucult Complete NO Growth Day 2 09/21/2016 %Hba1C Ypf756 % HbA1c 45443- 6 6.0 % 09/17/2016 %Hba1C Ooe794 Gluc Ave 126 mg/dL 09/17/2016 Comp Metabolic Jdv578 NA 140 mEq/L 09/17/2016 Comp Metabolic Xmb341 K 4.1 mEq/L 09/17/2016 Comp Metabolic Nka480 CL 105 mEq/L 09/17/2016 Comp Metabolic Tmh608 CO2 29.0 mEq/L 09/17/2016 Comp Metabolic Pxx108 ANION GAP 10 09/17/2016 Comp Metabolic Yit730 GLUCOSE 89 mg/dL 09/17/2016 Comp Metabolic Hyd185 Creat 0.9 mg/dL 09/17/2016 Comp Metabolic Dkp249 eGFR 65 ml/min/1.73m2 09/17/2016 Comp Metabolic Uoi267 BUN 20 mg/dL 09/17/2016 Comp Metabolic Gpt201 B/C Ratio 22.2 Ratio 09/17/2016 Comp Metabolic Udp082 CALCIUM 9.3 mg/dL 09/17/2016 Comp Metabolic Sgq993 ALK PHOS 107 U/L 09/17/2016 Comp Metabolic Ssi945 AST(SGOT) 22 U/L 09/17/2016 Comp Metabolic Huy896 ALT(SGPT) 15 U/L 09/17/2016 Comp Metabolic Abm356 BILI T 0.7 mg/dL 09/17/2016 Comp Metabolic Xgw556 ALBUMIN 4.0 g/dL 09/17/2016 Comp Metabolic Vpw596 TPRO 6.8 g/dL 09/17/2016 Comp Metabolic Cbj562 GLOB 2.8 g/dL 09/17/2016 Comp Metabolic Qct084 A/G Ratio 1.4 Ratio 09/17/2016 Comp Metabolic Psi964 Osmo 281 mOsmo 09/17/2016 Microalbumin Npk972 MicroAlb 44.3 mg/dL 09/17/2016 Tsh Ord6 hTSH [...] 29.0 pg 09/17/2016 Cbc With Differential Ord2 [place]% 8.1 % 09/17/2016 Cbc With Differential Ord2 [...] 1.78 K/ul 09/17/2016 Cbc With Differential Ord2 [place] ABS# 0.6 K/ul 09/17/2016 Cbc With Differential [...] Procedure Codes Date THER/PROPH/DIAG INJ SC/IM CPT-4: 46825 01/02/2019 TRIAMCINOLONE ACET INJ NOS CPT-4: J3301 01/02/2019 TRIAMCINOLONE ACET INJ NOS CPT-4: J3301 10/12/2018 THER/PROPH/DIAG INJ SC/IM CPT-4: 50489 10/12/2018 PPPS, SUBSEQ VISIT CPT- 4: G0439 09/06/2018 URINALYSIS NONAUTO W/O SCOPE CPT-4: 76951 12/29/2017 PPPS, SUBSEQ VISIT CPT- 4: G0439 03/30/2017 THER/PROPH/DIAG INJ SC/IM CPT-4: 67447 03/16/2017 TRIAMCINOLONE ACET INJ NOS CPT-4: J3301 03/16/2017 THER/PROPH/DIAG INJ SC/IM CPT-4: 32794 03/12/2017 TRIAMCINOLONE ACET INJ NOS CPT-4: J3301 03/12/2017 THER/PROPH/DIAG INJ SC/IM CPT-4: 45870 11/05/2016 TRIAMCINOLONE ACET INJ NOS CPT-4: J3301 11/05/2016 URINALYSIS NONAUTO W/O SCOPE CPT-4: 67669 09/18/2016 Vital Signs Date Vital 10/12/2018 Blood Pressure 1: 142/76 Code: 8480-6 BMI: 30.1 Code: 46513-7 Heart Rate 1: 83 bpm Height: 5'7" SpO2: 98% Weight: 192 lbs 09/06/2018 Blood Pressure 1: 142/66 Code: 8480-6 BMI: 30.9 Code: 31861-3 Heart Rate 1: 64 bpm Height: 5'7" SpO2: 98% Waist Measure (cm): 99 cm Weight: 197 lbs 08/16/2018 Blood Pressure 1: 140/70 Code: 8480-6 BMI: 34.4 Code: 44638-3 Heart Rate 1: 63 bpm Height: 5'7" SpO2: 95% Weight: 219 lbs 14 oz 04/12/2018 Blood Pressure 1: 160/70 Code: 8480-6 BMI: 33.0 Code: 99482-1 Heart Rate 1: 82 bpm Height: 5'7" SpO2: 95% Weight: 211 lbs 01/20/2018 Blood Pressure 1: 152/66 Code: 8480-6 BMI: 31.8 Code: 56913-6 Heart Rate 1: 52 bpm Height: 5'7" SpO2: 98% Temperature: 36.3 (C) / 97.3 (F) Weight: 203 lbs 12/29/2017 Blood Pressure 1: 168/72 Code: 8480-6 BMI: 32.1 Code: 93099-8 Heart Rate 1: 63 bpm Height: 5'7" SpO2: 98% Weight: 205 lbs 08/24/2017 Blood Pressure 1: 186/70 Code: 8480-6 Blood Pressure 1: 150/70 Code: 8480-6 BMI: 31.8 Code: 22645-9 Heart Rate 1: 53 bpm Height: 5'7" SpO2: 98% Weight: 203 lbs 07/26/2017 Blood Pressure 1: 206/78 Code: 8480-6 Blood Pressure 2: 210/84 Code: 8480-6 BMI: 32.0 Code: 87243-4 Heart Rate 1: 49 bpm Height: 5'7" SpO2: 97% Weight: 204 lbs 07/20/2017 Blood Pressure 1: 148/82 Code: 8480-6 Heart Rate 1: 90 bpm SpO2: 98% 05/27/2017 Blood Pressure 1: 142/72 Code: 8480-6 BMI: 30.5 Code: 94332-3 Heart Rate 1: 97 bpm Height: 5'7" [...] 1: 148/70 Code: 8480-6 BMI: 30.4 Code: 32813-6 Heart Rate 1: 54 bpm Height: 5'7" SpO2: 97% Weight: 194 lbs 03/30/2017 BMI: 33.2 Code: 91022-3 Height: 5'7" Weight: 212 lbs 03/16/2017 Blood Pressure 1: 140/80 Code: 8480-6 BMI: 34.0 Code: 21683-7 Heart Rate 1: 70 bpm Height: 5'7" SpO2: 95% Weight: 217 lbs 03/12/2017 Blood Pressure 1: 142/80 Code: 8480-6 BMI: 34.0 Code: 20590-8 Heart Rate 1: 76 bpm Height: 5'7" SpO2: 92% Weight: 217 lbs 02/17/2017 Blood Pressure 1: 162/64 Code: 8480-6 BMI: 32.9 Code: 41015-3 Heart Rate 1: 59 bpm Height: 5'7" SpO2: 97% Weight: 210 lbs 01/20/2017 Blood Pressure 1: 162/74 Code: 8480-6 BMI: 32.9 Code: 91621-8 Heart Rate 1: 56 bpm Height: 5'7" SpO2: 98% Weight: 210 lbs 11/17/2016 Blood Pressure 1: 156/60 Code: 8480-6 BMI: 34.8 Code: 17813-0 Heart Rate 1: 63 bpm Height: 5'7" SpO2: 96% Weight: 222 lbs 11/05/2016 Blood Pressure 1: 160/68 Code: 8480-6 BMI: 34.5 Code: 12371-1 Heart Rate 1: 66 bpm Height: 5'7" SpO2: 97% Temperature: 36.9 (C) / 98.5 (F) Weight: 220 lbs 09/21/2016 Blood Pressure 1: 180/72 Code: 8480-6 Blood Pressure 1: 166/72 Code: 8480-6 BMI: 32.1 Code: 53482-9 Heart Rate 1: 57 bpm Height: 5'7" SpO2: 98% Weight: 205 lbs 09/16/2016 Blood Pressure 1: 168/70 Code: 8480-6 Heart Rate 1: 49 bpm SpO2: 95% 08/03/2016 Blood Pressure 1: 162/70 Code: 8480-6 BMI: 32.0 Code: 61720-8 Heart Rate 1: 43 bpm Height: 5'7" SpO2: 98% Weight: 204 lbs 07/06/2016 Blood Pressure 1: 170/86 Code: 8480-6 BMI: 32.0 Code: 01437-6 Heart Rate 1: 48 bpm Height: 5'7" [...] data Encounters Encounter Performer Location Codes Date 75911 EST. PATIENT, LEVEL IV Diagnosis: Other acute sinusitis[ICD10: J01.80] Diagnosis: Other allergic rhinitis[ICD10: J30.89] Krysta Camejo MD, [facility] CPT- 4: 55045 10/12/2018 [id number]) 75171 EST. PATIENT, LEVEL IV Diagnosis: Essential (primary) hypertension[ICD10: I10] Diagnosis: Type 2 diabetes mellitus without complications[ICD10: E11.9] Diagnosis: Mixed hyperlipidemia[ICD10: E78.2] Fifi Camejo MD, [facility] CPT- 4: 89638 08/16/2018 ([id number]) 25399 EST. PATIENT, LEVEL IV Diagnosis: Type 2 diabetes mellitus without complications[ICD10: E11.9] Diagnosis: Mixed hyperlipidemia[ICD10: E78.2] Diagnosis: Essential (primary) hypertension[ICD10: I10] Diagnosis: Dysuria[ICD10: R30.0] Diagnosis: Pain in left foot[ICD10: M79.672] Fifi Camejo MD, [facility] CPT- 4: 01811 04/12/2018 [id number]) 17248 EST. PATIENT, LEVEL III Diagnosis: Otalgia, bilateral[ICD10: H92.03] Diagnosis: Other allergic rhinitis[ICD10: J30.89] Yuridia Camejo MD, [facility] CPT-4: 17004 01/20/2018 ([id number]) 72048 EST. PATIENT, LEVEL IV Diagnosis: Type 2 diabetes mellitus without complications[ICD10: E11.9] Diagnosis: Mixed hyperlipidemia[ICD10: E78.2] Diagnosis: Essential (primary) hypertension[ICD10: I10] Diagnosis: Dysuria[ICD10: R30.0] Fifi Camejo MD, [facility] CPT-4: 56341 12/29/2017 ([id number]) 54010 EST. PATIENT, LEVEL IV Diagnosis: Essential (primary) hypertension[ICD10: I10] Diagnosis: Cysts of left upper eyelid[ICD10: H02.824] Diagnosis: Pain in left foot[ICD10: M79.672] Fifi Camejo MD, [facility] CPT- 4: 03288 08/24/2017 ([id number]) 65836 EST. PATIENT, LEVEL III Diagnosis: Essential (primary) hypertension[ICD10: I10] Fifi Camejo MD [facility] CPT-4: 93311 07/26/2017 ([id number]) Miscellaneous no charge Diagnosis: Essential (primary) hypertension[ICD10: I10] Fifi Camejo MD [facility] CPT-4: 22954 07/20/2017 25179 EST. PATIENT, LEVEL III Diagnosis: Otalgia, bilateral[ICD10: H92.03] Diagnosis: Dizziness and giddiness[ICD10: R42] Diagnosis: Mixed hyperlipidemia[ICD10: E78.2] Krysta Camejo MD, [facility] CPT-4: 71402 05/27/2017 ([id number]) Miscellaneous no charge Diagnosis: Essential (primary) hypertension[ICD10: I10] Krysta Camejo MD, [facility] CPT-4: 43826 05/07/2017 ([id number]) 47776 EST. PATIENT, LEVEL IV Diagnosis: Otalgia, bilateral[ICD10: H92.03] Diagnosis: Dizziness and giddiness[ICD10: R42] Diagnosis: Orthostatic hypotension[ICD10: I95.1] Fifi Camejo MD, [facility] CPT-4: 86885 05/03/2017 99092 EST. PATIENT, LEVEL IV Diagnosis: Essential (primary) hypertension[ICD10: I10] Diagnosis: Type 2 diabetes mellitus without complications[ICD10: E11.9] Diagnosis: Gastro-esophageal reflux disease without esophagitis[ICD10: K21.9] Diagnosis: Dizziness and giddiness[ICD10: R42] Diagnosis: Dysuria[ICD10: R30.0] Diagnosis: Other malaise[ICD10: R53.81] Krysta Camejo MD, [facility] CPT-4: 13183 04/15/2017 ([id number]) 40160 EST. PATIENT, LEVEL IV Diagnosis: Type 2 diabetes mellitus without complications[ICD10: E11.9] Diagnosis: Otalgia, bilateral[ICD10: H92.03] Diagnosis: Essential (primary) hypertension[ICD10: I10] Diagnosis: Other allergic rhinitis[ICD10: J30.89] Fifi Camejo MD [facility] CPT-4: 42761 03/16/2017 76456 EST. PATIENT, LEVEL IV Diagnosis: Other acute sinusitis[ICD10: J01.80] Diagnosis: Acute suppurative otitis media without spontaneous rupture of ear drum, bilateral[ICD10: H66.003] Diagnosis: Other allergic rhinitis[ICD10: J30.89] Krysta Camejo MD [facility] CPT- 4: 93390 03/12/2017 ([id number]) 91027 EST. PATIENT, LEVEL IV Diagnosis: Essential (primary) hypertension[ICD10: I10] Diagnosis: Type 2 diabetes mellitus without complications[ICD10: E11.9] Fifi Camejo MD [facility] CPT-4: 12855 02/17/2017 ([id number]) 56753 EST. PATIENT, LEVEL IV Diagnosis: Essential (primary) hypertension[ICD10: I10] Diagnosis: Type 2 diabetes mellitus without complications[ICD10: E11.9] Fifi Camejo MD [facility] CPT-4: 40251 01/20/2017 ([id number]) 36824 EST. PATIENT, LEVEL IV Diagnosis: Essential (primary) hypertension[ICD10: I10] Diagnosis: Type 2 diabetes mellitus without complications[ICD10: E11.9] Diagnosis: Gastro-esophageal reflux disease without esophagitis[ICD10: K21.9] Fifi Camejo MD, [facility] CPT-4: 28521 11/17/2016 ([id number]) 01438 EST. PATIENT, LEVEL III Diagnosis: Acute bronchitis due to other specified organisms[ICD10: J20.8] Diagnosis: Cough[ICD10: R05] Fifi Camejo MD, [facility] CPT-4: 71185 11/05/2016 ([id number]) 47011 EST. PATIENT, LEVEL IV Diagnosis: Essential (primary) hypertension[ICD10: I10] Diagnosis: Type 2 diabetes mellitus without complications[ICD10: E11.9] RANDALL Redmond MD CPT-4: 68207 09/21/2016 ([id number]) Miscellaneous no charge Diagnosis: Essential (primary) hypertension[ICD10: I10] RANDALL Redmond MD CPT-4: 68769 09/16/2016 ([id number]) 72399 EST. PATIENT, LEVEL III Diagnosis: Type 2 diabetes mellitus without complications[ICD10: E11.9] Diagnosis: Essential (primary) hypertension[ICD10: I10] Fifi Camejo MD, [facility] CPT-4: 60700 08/03/2016 ([id number]) OFFICE VISIT, NEW - LEVEL 4 Diagnosis: Essential (primary) hypertension[ICD10: I10] Diagnosis: Type 2 diabetes mellitus without complications[ICD10: E11.9] Diagnosis: Carpal tunnel syndrome, left upper limb[ICD10: G56.02] Diagnosis: Right upper quadrant pain[ICD10: R10.11] Diagnosis: Mixed hyperlipidemia[ICD10: E78.2] Fifi Camejo MD, [facility] CPT- 4: 89388 07/06/2016 Plan of Care Planned Activity Notes [...] spray. 10/12/2018 [id number] ([facility] Complex 10/12/2018 Patient Education: Patient [...] surrogate. 09/06/2018 App[facility]ment: [phone] [phone] [facility] - Annual Wellness Visit 09/06/2018 Patient Education: Patient Medication Summary Completed 09/06/2018 Appointment: [facility] [phone] [phone] [facility] - Annual Wellness Visit 08/29/2018 [...] me dications. 08/16/2018 Appointment: [phone] (15 min) Moderate 08/16/2018 Patient Education: [...] foot. 04/12/2018 Appointment: [phone] [facility] (15 min) Moderate 04/12/2018 Patient Education: Patient Medication Summary Completed 04/12/2018 Care Plan: Referral Order SNOMED-CT : [id number] Pending 04/12/2018 Patient Education: Patient Medication Summary [...] spray. 01/20/2018 Appointment: [phone] [phone] (15 min) Moderate 01/20/2018 Patient [...] controlled. 12/29/2017 Appointment: [facility] [phone] [facility] [place] (15 min) Moderate 12/29/2017 Patient Education: [...] Chago Singh 08/24/2017 Appointment: Fifi Camejo WPtel: [phone] [facility] (15 min) Moderate 08/24/2017 Patient Education: Patient Medication Summary Completed 08/24/2017 Care Plan: Referral Order SNOMED-CT : [id number] Pending 08/24/2017 Visit Plan: Hypertension - uncontrolled [...] above. 07/26/2017 Appointment: Fifi Camejo WPtel: [phone] [facility] (15 min) Moderate 07/26/2017 Patient Education: Patient [...] to medications. 05/27/2017 Appointment: [phone] [facility] ([facility] min) Moderate 05/27/2017 Patient Education: Patient Medication Summary Completed 05/27/2017 Appointment: Nurse Visit 05/07/2017 Patient Education: Patient Medication Summary Completed 05/07/2017 Visit Plan: Persistent vergito with bilateral air-fluid levels and ear pain. Pt was seen by Dr. Calvo- she did not like his response to her complaints. I have recommended a referral to ENT in [place] or [place]. I suspect she may need myringotomy tubes. Pt to continue with flonase. Orthostatic hypotension - dc doxazosin. Monitor blood pressures at home. stop the doxazosin meclizine change to 1/2 pill three times a day come back on Wednesday for blood pressure check 05/03/2017 Appointment: [facility]i [facility]jo [facility]el[facility] [phone] [facility] (15 min) Moderate 05/03/2017 Patient Education: Patient Medication Summary Completed 05/03/2017 Appointment: [facility]el[facility] [phone] [facility] (15 min) Moderate 04/21/2017 Visit Plan: [...] glucose control. 04/15/2017 Appointment: Krysta Dale WPtel: [address] [place], [place] [id number] (30 min) [facility] 04/15/2017 Patient Education: Patient Medication Summary [...] surrogate. 03/30/2017 Appointment: Chito [facility]rysta [facility] [phone] [facility] [facility] - Annual Wellness Visit 03/30/2017 [...] have a referral to dr. calvo - [facility] sometime after March 24 Hypertension - well controlled - continue with current medications, continue with no added salt diet. Pt has been encouraged to exercise daily. The pt has been advised to call the office if there are any acute concerns about change in blood pressure readings at home. 03/16/2017 Appointment: Fifi Camejo [facility]Ptel: [phone] [facility] (30 min) Complex 03/16/2017 Patient Education: Patient Medication Summary Completed 03/16/2017 Patient Education: Obesity Completed 03/16/2017 Care Plan: Referral Order SNOMED-CT : [id number] Pending 03/16/2017 Visit Plan: Allergies - chronic [...] worsen. 03/12/2017 Appointment: [facility] Dale [phone] [phone] (15 min) Moderate 03/12/2017 Patient [...] controlled. 02/17/2017 Appointment: Fifi Camejo [facility]Ptel: [phone] [facility] (30 min) Complex 02/17/2017 Patient Education: [...] less controlled. 01/20/2017 Appointment: Fifi Camejo [facility]Ptel: [phone] [facility] (30 min) Complex 01/20/2017 Patient Education: [...] dexilant 11/17/2016 Appointment: Fifi Camejo [facility]el: [phone] [facility] (30 min) Complex 11/17/2016 Patient Education: [...] range. 09/21/2016 Appointment: Fifi Camejo [facility]Ptel: [phone] [facility] (15 min) Moderate 09/21/2016 Patient Education: [...] this time. 08/03/2016 Appointment: Fifi Camejo [facility]Ptel: [phone] [facility] [place] (15 min) Moderate 08/03/2016 Patient [...] not improving. 07/06/2016 Appointment: Fifi Camejo WPtel: [facility] [facility] Patient 07/06/2016 Patient Education: Patient Medication Summary Completed 07/06/2016 Patient Education: Obesity Completed 07/06/2016 Referral: Dr Calvo Referral Completed Referral: Freeman Huff Referral Appointment Requested Referral: External, Ordering Provider Referral Appointment Requested Instructions Comment . injection today . Diabetes Mellitus - controlled - per [...] to assure normal liver response to medications. corcidin hbp (for decongestion) get vitamin c take 500mg twice daily . Bronchitis - acute case of bronchitis identified. Pt has been given antibiotics, breathing treatments as appropriate, and pt has been instructed to call if symptoms are not improved, or if symptoms acutely worsen. recommend shingles vaccine . Medicare Exam - [...] her [employer] paperwork for health care surrogate. Nasal spray- use twice daily, one spray [...] shows levels averaging in the 90-110 range. decrease the metoprolol to 1/2 pill twice [...] except for the changes listed above. . Diabetes Mellitus - controlled - per [...] [facility] Hypertension - well controlled - continue with current medications, continue with no added salt diet. Pt has been encouraged to exercise daily. The pt has been advised to call the office if there are any acute concerns about change in blood pressure readings at home. . Sinusitis - Pt has acute infection [...] spray in the nasal steroid allergy spray. TAKE TWO AMLODIPINE - FOR A TOTAL [...] no change in plan at this time. Nasal spray- use twice daily, one spray [...] controlled. GERD - gave sample of dexilant . Hypertension - uncontrolled - the patient's [...] has history of injury to the foot. take the doxazosin to 4mg twice daily. [...] monitor your heart rate Consider referral for infrastructure director for possible stress test if needed. Call [...] monitor your heart rate Consider referral for infrastructure director for possible stress test if needed. Call [...] not improve or if they acutely worsen. increase clonidine to a full pill twice [...] have recommended a referral to ENT in [place] or [place]. I suspect she may need myringotomy tubes. [...] - recommended referral to Dr. Anders in [place]
--- OUTSIDE RECORDS SUMMARY | 2019-03-08 16:45 | XMS REPORT | CCD ---
Author Author Fifi Camejo Organization Fifi Camejo MD, [facility] Address [address] [place] [address] Phone Care Team Providers Care Director Selection And Administration Name Role Phone PP Unavailable CCM Unavailable Summary Purpose Interface Exchange Insurance Providers Payer name Policy type / Coverage type Covered constitution party ID Effective Begin Date Effective End Date WPS Medicare Part B Medicare Part B [id number] 2018 Unknown FOR LIFE WPS Medicare Part B [id number] Unknown Family history Father Diagnosis Age At Onset Cancer Unknown Brother Diagnosis Age At Onset Diabetes mellitus Type 2 Unknown Heart Attack Unknown Social History Social History Element Codes Description Effective Dates Marital status Unknown Wu 11/05/2016 Number of children Unknown 1 07/06/2016 Employment Unknown Retired 07/06/[address]: 050445659 Never smoker 07/06/[address]: 686874975 Never drinks alcohol 07/06/2016 Allergies, Adverse Reactions, Alerts Substance Reaction Codes Entered Date Inactivated Date Status Protonix hives RxNorm: 768446 09/06/2018 No Inactive Date Active IV DYE, IODINE CONTAINING emesis, emesis Unknown 04/28/2018 No Inactive Date Active MORPHINE AND RELATED Unknown 04/28/2018 No Inactive Date Active Penicillin Unknown 07/06/2016 No Inactive Date Active Past Medical History Illness Codes Condition Status Onset Date Resolved Date Dysuria ICD-9: 788.1 ICD-10: R30.0 Active 09/17/2016 [...] ICD-9: 786.2 ICD-10: R05 Active 11/05/2016 Unknown Carpal tunnel syndrome, left upper limb ICD-9: 354.0 ICD-10: G56.02 Active 07/05/2016 Unknown Right upper quadrant pain ICD-9: 789.01 ICD-10: R10.11 Active 07/05/2016 Unknown Problems Condition Codes Effective Dates Condition Status Dysuria ICD-9: 788.1 ICD-10: R30.0 09/17/2016 Active [...] Cough ICD-9: 786.2 ICD-10: R05 11/05/2016 Active Carpal tunnel syndrome, left upper limb ICD-9: 354.0 ICD-10: G56.02 07/05/2016 Active Right upper quadrant pain ICD-9: 789.01 ICD-10: R10.11 07/05/2016 Active Medications Medication Codes Instructions Start Date Stop Date Status Fill Instructions Zithromax Z-Juan 250 mg tablet RxNorm: 330753 1 Tablet(s) PO UD 12/30/2018 01/03/2019 Active zpack as directed metoprolol tartrate 50 mg tablet RxNorm: 139313 1/2 TABLET(S) PO BID 12/02/2018 No Stop Date Active amlodipine 10 mg tablet RxNorm: 484628 TAKE 1 TABLET DAILY 10/24/2018 No Stop Date Active cefdinir 300 mg capsule RxNorm: 862384 1 Capsule(s) PO BID 10/19/2018 10/22/2018 Inactive Zithromax Z-Juan 250 mg tablet RxNorm: 006913 1 Tablet(s) PO UD 10/19/2018 10/23/2018 Inactive zpack as directed glimepiride 4 mg tablet RxNorm: 496274 Tablet(s) 1 TABLET(S) PO DAILY 10/12/2018 No Stop Date Active cefdinir 300 mg capsule RxNorm: 525985 1 Capsule(s) PO BID 10/12/2018 10/18/2018 Inactive Zithromax Z-Juan 250 mg tablet RxNorm: 263072 1 Tablet(s) PO UD 10/12/2018 10/16/2018 Inactive zpack as directed Tessalon Perles 100 mg capsule RxNorm: 995313 2 Capsule(s) PO TID as needed cough 10/12/2018 10/16/2018 Inactive Kenalog 40 mg/mL suspension for injection RxNorm: 4765533 1 Milliliter(s) Inj 10/12/2018 10/12/2018 Inactive Zithromax Z-Juan 250 mg tablet RxNorm: 079422 1 Tablet(s) PO UD 08/22/2018 08/26/2018 Inactive zpack as directed clonidine HCl 0.1 mg tablet RxNorm: 947005 1 Tablet(s) PO QAM 08/16/2018 08/10/2019 Active losartan 100 mg tablet RxNorm: 227409 1 TABLET(S) PO DAILY FOR HIGH BLOOD PRESSURE 08/12/2018 No Stop Date Active alprazolam 0.5 mg tablet RxNorm: 374413 1 Tablet(s) PO TID as needed anxiety 06/30/2018 12/26/2018 Inactive fluticasone 50 mcg/actuation nasal spray,suspension RxNorm: 5013403 USE 1 SPRAY NASALLY TWICE A DAY 05/06/2018 No Stop Date Active clonidine HCl 0.1 mg tablet RxNorm: 250992 1 Tablet(s) PO BID 04/14/2018 08/15/2018 Inactive clonidine HCl 0.1 mg tablet RxNorm: 217654 1 Tablet(s) PO TID 04/12/2018 04/13/2018 Inactive Zithromax Z-Juan 250 mg tablet RxNorm: 477346 1 Tablet(s) PO UD 01/20/2018 08/21/2018 Inactive disregard first rx for 1 - patient needs 3 packs-please dispense generic azithromycin Zithromax Z-Juan 250 mg tablet RxNorm: 023265 1 Tablet(s) PO UD 01/20/2018 01/19/2018 Inactive Zithromax Z-Juan 250 mg tablet RxNorm: 361156 1 Tablet(s) PO UD 01/20/2018 01/19/2018 Inactive disregard first rx for 1 - patient needs 3 packs Zithromax Z-Juan 250 mg tablet RxNorm: 481499 1 Tablet(s) PO UD 01/20/2018 01/19/2018 Inactive atorvastatin 10 mg tablet RxNorm: 129860 1 Tablet(s) PO QPM 12/30/2017 12/24/2018 Inactive atorvastatin 10 mg tablet RxNorm: 718546 1 Tablet(s) PO QPM 12/30/2017 12/29/2017 Inactive clonidine HCl 0.1 mg tablet RxNorm: 655352 1 Tablet(s) PO BID 12/29/2017 04/11/2018 Inactive Lipitor 10 mg tablet RxNorm: 147066 1 Tablet(s) PO QPM 12/29/2017 12/29/2017 Inactive OKAY TO DISPENSE GENERIC metoprolol tartrate 50 mg tablet RxNorm: 197908 1/2 Tablet(s) PO BID 12/29/2017 12/01/2018 Inactive alprazolam 0.5 mg tablet RxNorm: 309805 1 Tablet(s) PO TID as needed anxiety 11/18/2017 05/16/2018 Inactive glimepiride 4 mg tablet RxNorm: 308832 1 TABLET(S) PO DAILY 11/15/2017 10/11/2018 Inactive alprazolam 0.5 mg tablet RxNorm: 266867 1 Tablet(s) PO TID as needed anxiety 09/20/2017 11/17/2017 Inactive Zithromax Z-Juan 250 mg tablet RxNorm: 964832 1 Tablet(s) PO UD 09/20/2017 12/28/2017 Inactive Zithromax Z-Juan 250 mg tablet RxNorm: 211641 1 Tablet(s) PO UD 09/14/2017 09/19/2017 Inactive clonidine HCl 0.1 mg tablet RxNorm: 964020 1/2 Tablet(s) PO BID 08/24/2017 12/28/2017 Inactive amlodipine 10 mg tablet RxNorm: 950540 1 Tablet(s) PO daily 08/24/2017 08/18/2018 Inactive erythromycin 5 mg/gram (0.5 %) eye ointment RxNorm: 382610 1 Gram(s) ophthalmic (eye) QID left eye cyst 08/24/2017 09/06/2017 Inactive losartan 100 mg tablet RxNorm: 222873 1 Tablet(s) PO daily for high blood pressure 08/16/2017 08/10/2018 Inactive metoprolol tartrate 50 mg tablet RxNorm: 030030 1/2 Tablet(s) PO BID 07/26/2017 12/28/2017 Inactive clonidine HCl 0.1 mg tablet RxNorm: 885353 1/2 Tablet(s) PO BID 07/26/2017 08/23/2017 Inactive metoprolol tartrate 50 mg tablet RxNorm: 521737 1 Tablet(s) PO BID 07/21/2017 07/25/2017 Inactive amlodipine 10 mg tablet RxNorm: 981356 1 TABLET(S) PO DAILY 06/29/2017 08/23/2017 Inactive Lipitor 10 mg tablet RxNorm: 607886 1 Tablet(s) PO QPM 05/27/2017 12/28/2017 Inactive OKAY TO DISPENSE GENERIC alprazolam 0.5 mg tablet RxNorm: 422182 1 Tablet(s) PO TID as needed anxiety 05/18/2017 08/15/2017 Inactive hydrochlorothiazide 12.5 mg tablet RxNorm: 613700 1 Tablet(s) PO daily 04/22/2017 05/21/2017 Inactive hydrochlorothiazide 12.5 mg tablet RxNorm: 314042 1 Tablet(s) PO daily 04/22/2017 04/21/2017 Inactive Cipro 500 mg tablet RxNorm: 754562 1 Tablet(s) PO BID 04/16/2017 04/22/2017 Inactive Zofran 4 mg tablet RxNorm: 219157 1 Tablet(s) PO BID as needed nausea and vomitting 04/15/2017 04/19/2017 Inactive Lipitor 10 mg tablet RxNorm: 660181 1 Tablet(s) PO QPM 03/30/2017 05/26/2017 Inactive OKAY TO DISPENSE GENERIC Kenalog 40 mg/mL suspension for injection RxNorm: 8061860 1 Milliliter(s) Inj 03/16/2017 03/16/2017 Inactive doxazosin 4 mg tablet RxNorm: 869721 1.5 Tablet(s) PO BID 03/16/2017 05/02/2017 Inactive prednisone 10 mg tablets in a dose pack RxNorm: 546163 Tablet(s) take dose pack as directed PO take with food 03/16/2017 05/23/2017 Inactive Kenalog 40 mg/mL suspension for injection RxNorm: 5791333 Milliliter(s) Inj 03/12/2017 03/12/2017 Inactive Zithromax Z-Juan 250 mg tablet RxNorm: 118268 1 Tablet(s) PO daily 03/11/2017 03/10/2017 Inactive zpack as directed Zithromax Z-Juan 250 mg tablet RxNorm: 325715 1 Tablet(s) PO daily 03/11/2017 03/15/2017 Inactive zpack as directed doxazosin 4 mg tablet RxNorm: 248793 1.5 Tablet(s) PO BID 02/12/2017 03/15/2017 Inactive fluticasone 50 mcg/actuation nasal spray,suspension RxNorm: 0211919 1 SPRAY NASAL BID 02/05/2017 05/05/2018 Inactive metoprolol tartrate 75 mg tablet RxNorm: 8675498 1 Tablet(s) PO BID 01/29/2017 07/19/2017 Inactive metoprolol tartrate 75 mg tablet RxNorm: 3872125 1 Tablet(s) PO BID 01/29/2017 01/28/2017 Inactive doxazosin 4 mg tablet RxNorm: 844869 1 Tablet(s) PO BID 01/20/2017 02/11/2017 Inactive pantoprazole 40 mg tablet,delayed release RxNorm: 777184 1 Tablet(s) PO daily 12/24/2016 01/19/2017 Inactive pantoprazole 40 mg tablet,delayed release RxNorm: 510598 1 Tablet(s) PO daily 12/24/2016 12/23/2016 Inactive alprazolam 0.5 mg tablet RxNorm: 538868 1 Tablet(s) PO TID as needed anxiety 12/03/2016 04/01/2017 Inactive fluticasone 50 mcg/actuation nasal spray,suspension RxNorm: 5180720 1 [place] NASAL BID 11/25/2016 12/24/2016 Inactive Dexilant 60 mg capsule, delayed release RxNorm: 685370 1 Capsule(s) PO daily 11/25/2016 11/24/2016 Inactive fluticasone 50 mcg/actuation nasal spray,suspension RxNorm: 2610344 1 [place] NASAL BID 11/25/2016 11/24/2016 Inactive fluticasone 50 mcg/actuation nasal spray,suspension RxNorm: 7462371 1 [place] NASAL BID 11/25/2016 11/24/2016 Inactive Dexilant 60 mg capsule, delayed release RxNorm: 583017 1 Capsule(s) PO daily 11/25/2016 12/23/2016 Inactive ProAir RespiClick 90 mcg/actuation breath activated RxNorm: 8316622 1 INH bid and QID as needed 11/19/2016 05/17/2017 Inactive Please send STAT Flonase Allergy Relief 50 mcg/actuation nasal spray,suspension RxNorm: 6597095 1 [place] NASAL BID 11/19/2016 11/24/2016 Inactive glimepiride 4 mg tablet RxNorm: 098751 1 Tablet(s) PO daily 11/19/2016 11/13/2017 Inactive metoprolol tartrate 50 mg tablet RxNorm: 901775 1 Tablet(s) PO BID 11/19/2016 01/28/2017 Inactive Flonase Allergy Relief 50 mcg/actuation nasal spray,suspension RxNorm: 1895774 1 [place] NASAL BID 11/17/2016 11/18/2016 Inactive metoprolol tartrate 50 mg tablet RxNorm: 095124 1 Tablet(s) PO BID 11/17/2016 11/18/2016 Inactive ProAir RespiClick 90 mcg/actuation breath activated RxNorm: 2279682 1 INH bid and QID as needed 11/17/2016 11/16/2016 Inactive glimepiride 4 mg tablet RxNorm: 690724 1 Tablet(s) PO daily 11/17/2016 11/18/2016 Inactive ProAir RespiClick 90 mcg/actuation breath activated RxNorm: 1542638 1 INH bid and QID as needed 11/17/2016 11/18/2016 Inactive Please send STAT Kenalog 40 mg/mL suspension for injection RxNorm: 8618432 1 Milliliter(s) Inj 11/05/2016 11/05/2016 Inactive azithromycin 250 mg tablet RxNorm: 018538 Tablet(s) PO 2 tabs on day #1, then daily x 4 days 11/05/2016 12/23/2016 Inactive doxazosin 4 mg tablet RxNorm: 510896 1 Tablet(s) PO QPM 10/02/2016 01/19/2017 Inactive doxazosin 4 mg tablet RxNorm: 598275 1 Tablet(s) PO QPM 09/29/2016 10/01/2016 Inactive doxazosin 4 mg tablet RxNorm: 558601 1 Tablet(s) PO QPM 09/21/2016 09/28/2016 Inactive Cipro 500 mg tablet RxNorm: 551737 1 Tablet(s) PO BID 09/18/2016 09/17/2016 Inactive Cipro 500 mg tablet RxNorm: 511670 1 Tablet(s) PO BID 09/18/2016 09/24/2016 Inactive losartan 100 mg tablet RxNorm: 379594 1 Tablet(s) PO daily for high blood pressure 09/16/2016 09/15/2016 Inactive alprazolam 0.5 mg tablet RxNorm: 832024 1 Tablet(s) PO TID as needed anxiety 09/16/2016 11/14/2016 Inactive losartan 100 mg tablet RxNorm: 499574 1 Tablet(s) PO daily for high blood pressure 09/16/2016 08/15/2017 Inactive amlodipine 10 mg tablet RxNorm: 026957 1 Tablet(s) PO daily 08/03/2016 06/28/2017 Inactive Zyrtec 10 mg tablet RxNorm: 3687657 1 Tablet(s) PO daily 08/03/2016 09/15/2016 Inactive losartan 25 mg tablet RxNorm: 769271 1 Tablet(s) PO daily 07/08/2016 09/15/2016 Inactive Lipitor 10 mg tablet RxNorm: 159064 1 Tablet(s) PO QPM 07/08/2016 07/17/2016 Inactive OKAY TO DISPENSE GENERIC Lipitor 10 mg tablet RxNorm: 656243 1 Tablet(s) PO QPM 07/06/2016 07/07/2016 Inactive OKAY TO DISPENSE GENERIC losartan 25 mg tablet RxNorm: 989130 1 Tablet(s) PO daily 07/06/2016 07/07/2016 Inactive meclizine 25 mg tablet RxNorm: 562521 1 Tablet(s) PO TID as needed No Start Date Active Parafon Forte DSC 500 mg tablet RxNorm: 023780 1 Tablet(s) PO QID No Start Date Active Pazeo 0.7 % eye drops RxNorm: 2668061 Drop(s) ophthalmic (eye) as needed dry eyes No Start Date Active Zithromax Z-Juan 250 mg tablet RxNorm: 371767 1 Tablet(s) PO UD No Start Date 09/13/2017 Inactive glimepiride 4 mg tablet RxNorm: 607721 1 Tablet(s) PO daily No Start Date 11/16/2016 Inactive metoprolol tartrate 100 mg tablet RxNorm: 637218 1 Tablet(s) PO BID No Start Date 07/21/2017 Inactive naproxen 500 mg tablet RxNorm: 524381 1 Tablet(s) PO BID No Start Date 03/23/2017 Inactive amlodipine 5 mg tablet RxNorm: 479607 1 Tablet(s) PO daily No Start Date 08/02/2016 Inactive metoprolol tartrate 50 mg tablet RxNorm: 840688 1 Tablet(s) PO BID No Start Date 11/16/2016 Inactive Medication Administered Medication Codes Instructions Start Date Status Kenalog 40 mg/mL suspension for injection RxNorm: 7346793 1Milliliter 10/12/2018 No longer Active Kenalog 40 mg/mL suspension for injection RxNorm: 3829284 1Milliliter 03/16/2017 No longer Active Kenalog 40 mg/mL suspension for injection RxNorm: 6351793 Milliliter 03/12/2017 No longer Active Kenalog 40 mg/mL suspension for injection RxNorm: 6320662 1Milliliter 11/05/2016 No longer Active Immunizations Vaccine Codes Date Status Influenza CVX: 141 08/16/2018 completed Influenza CVX: 141 08/10/2017 completed Assessments Condition Codes Effective Dates Dysuria ICD-10: R30.0 ICD-9: 788.1 12/28/2018 Other [...] 11/05/2016 Cough ICD-10: R05 ICD-9: 786.2 11/05/2016 Right upper quadrant pain ICD-10: R10.11 [...] Lipid Ord30 C/HDL 3.1 Ratio 08/18/2018 Microalbumin Mdv585 MicroAlb 7.5 mg/dL 08/18/2018 Cbc With Differential [...] 29.6 pg 08/18/2018 Cbc With Differential Ord2 [place]% 10.6 % 08/18/2018 Cbc With Differential Ord2 [...] 1.69 K/ul 08/18/2018 Cbc With Differential Ord2 [place] ABS# 0.6 K/ul 08/18/2018 Cbc With Differential Ord2 Eos ABS# 0.3 K/ul 08/18/2018 Cbc With Differential Ord2 Baso ABS# 0.0 K/ul 08/18/2018 Comp Metabolic Qne610 NA 137 mEq/L 08/18/2018 Comp Metabolic Imp617 K 3.8 mEq/L 08/18/2018 Comp Metabolic Oyy407 CL 103 mEq/L 08/18/2018 Comp Metabolic Jaj045 CO2 26.0 mEq/L 08/18/2018 Comp Metabolic Lki622 ANION GAP 12 08/18/2018 Comp Metabolic Yyi854 GLUCOSE 110 mg/dL 08/18/2018 Comp Metabolic Xuc974 Creat 1.2 mg/dL 08/18/2018 Comp Metabolic Wtx379 eGFR 47 ml/min/1.73m2 08/18/2018 Comp Metabolic Ran859 BUN 25 mg/dL 08/18/2018 Comp Metabolic Vsc231 B/C Ratio 21.0 Ratio 08/18/2018 Comp Metabolic Qln486 CALCIUM 9.4 mg/dL 08/18/2018 Comp Metabolic Tpt491 ALK PHOS 99 U/L 08/18/2018 Comp Metabolic Pqn744 AST(SGOT) 31 U/L 08/18/2018 Comp Metabolic Qwq009 ALT(SGPT) 27 U/L 08/18/2018 Comp Metabolic Dfs958 BILI T 0.7 mg/dL 08/18/2018 Comp Metabolic Jhk766 ALBUMIN 4.2 g/dL 08/18/2018 Comp Metabolic Nyw396 TPRO 6.7 g/dL 08/18/2018 Comp Metabolic Mum093 GLOB 2.5 g/dL 08/18/2018 Comp Metabolic Lpr548 A/G Ratio 1.7 Ratio 08/18/2018 Comp Metabolic His336 Osmo 279 mOsmo 08/18/2018 %Hba1C Vag167 % HbA1c 55750- 6 6.1 % 08/18/2018 %Hba1C Ufe594 Gluc Ave 128 mg/dL 08/18/2018 Tsh Ord6 TSH (3rd IS) 3.93 uIU/mL 08/18/2018 Lipid Ord30 CHOL 146 mg/dL 04/15/2018 Lipid Ord30 HDL 62.0 mg/dl 04/15/2018 Lipid Ord30 TRIG 88 mg/dL 04/15/2018 Lipid Ord30 LDL 66 mg/dL 04/15/2018 Lipid Ord30 C/HDL 2.4 Ratio 04/15/2018 %Hba1C Mmp867 % HbA1c 08649- 6 6.3 % 04/15/2018 %Hba1C Tuu470 Gluc Ave 134 mg/dL 04/15/2018 Cbc With [...] 30.2 pg 04/15/2018 Cbc With Differential Ord2 [place]% 6.8 % 04/15/2018 Cbc With Differential Ord2 [...] 2.10 K/ul 04/15/2018 Cbc With Differential Ord2 [place] ABS# 0.5 K/ul 04/15/2018 Cbc With Differential Ord2 Eos ABS# 0.2 K/ul 04/15/2018 Cbc With Differential Ord2 Baso ABS# 0.0 K/ul 04/15/2018 Comp Metabolic Xoc145 NA 140 mEq/L 04/15/2018 Comp Metabolic Uaz167 K 4.3 mEq/L 04/15/2018 Comp Metabolic Xdb697 CL 106 mEq/L 04/15/2018 Comp Metabolic Cry921 CO2 23.0 mEq/L 04/15/2018 Comp Metabolic Ccm643 ANION GAP 15 04/15/2018 Comp Metabolic Acy600 GLUCOSE 90 mg/dL 04/15/2018 Comp Metabolic Lqz079 Creat 1.2 mg/dL 04/15/2018 Comp Metabolic Slg452 eGFR 45 ml/min/1.73m2 04/15/2018 Comp Metabolic Qlb170 BUN 28 mg/dL 04/15/2018 Comp Metabolic Qwx399 B/C Ratio 22.8 Ratio 04/15/2018 Comp Metabolic Mjb024 CALCIUM 9.5 mg/dL 04/15/2018 Comp Metabolic Esf900 ALK PHOS 95 U/L 04/15/2018 Comp Metabolic Zzy560 AST(SGOT) 20 U/L 04/15/2018 Comp Metabolic Gpa296 ALT(SGPT) 13 U/L 04/15/2018 Comp Metabolic Mff629 BILI T 0.5 mg/dL 04/15/2018 Comp Metabolic Gpd435 ALBUMIN 4.1 g/dL 04/15/2018 Comp Metabolic Lvn617 TPRO 6.6 g/dL 04/15/2018 Comp Metabolic Rnc564 GLOB 2.5 g/dL 04/15/2018 Comp Metabolic Xyw685 A/G Ratio 1.6 Ratio 04/15/2018 Comp Metabolic Rtw924 Osmo 284 mOsmo 04/15/2018 Comp Metabolic Ufb578 NA 137 mEq/L 02/04/2018 Comp Metabolic Vbk609 K 4.0 mEq/L 02/04/2018 Comp Metabolic Hqx346 CL 104 mEq/L 02/04/2018 Comp Metabolic Wkh219 CO2 27.0 mEq/L 02/04/2018 Comp Metabolic Ssg117 ANION GAP 10 02/04/2018 Comp Metabolic Gpa451 GLUCOSE 212 mg/dL 02/04/2018 Comp Metabolic Wdg936 Creat 1.2 mg/dL 02/04/2018 Comp Metabolic Toh300 eGFR 47 ml/min/1.73m2 02/04/2018 Comp Metabolic Ldj521 BUN 20 mg/dL 02/04/2018 Comp Metabolic Laz683 B/C Ratio 16.8 Ratio 02/04/2018 Comp Metabolic Bkp668 CALCIUM 8.9 mg/dL 02/04/2018 Comp Metabolic Keb598 ALK PHOS 107 U/L 02/04/2018 Comp Metabolic Zfz466 AST(SGOT) 17 U/L 02/04/2018 Comp Metabolic Nqg807 ALT(SGPT) 11 U/L 02/04/2018 Comp Metabolic Azz017 BILI T 0.4 mg/dL 02/04/2018 Comp Metabolic Pxq389 ALBUMIN 3.8 g/dL 02/04/2018 Comp Metabolic Yfh507 TPRO 6.2 g/dL 02/04/2018 Comp Metabolic Yrz355 GLOB 2.4 g/dL 02/04/2018 Comp Metabolic Fid649 A/G Ratio 1.6 Ratio 02/04/2018 Comp Metabolic Dmm510 Osmo 283 mOsmo 02/04/2018 %Hba1C Pua017 % HbA1c 35810- 6 6.3 % 12/30/2017 %Hba1C Rum342 Gluc Ave 134 mg/dL 12/30/2017 Comp Metabolic Fju305 NA 142 mEq/L 12/30/2017 Comp Metabolic Lam137 K 4.4 mEq/L 12/30/2017 Comp Metabolic Crw103 CL 103 mEq/L 12/30/2017 Comp Metabolic Ric324 CO2 31.0 mEq/L 12/30/2017 Comp Metabolic Sip153 ANION GAP 12 12/30/2017 Comp Metabolic Uqj666 GLUCOSE 119 mg/dL 12/30/2017 Comp Metabolic Ywl296 Creat 1.4 mg/dL 12/30/2017 Comp Metabolic Uzq631 eGFR 41 ml/min/1.73m2 12/30/2017 Comp Metabolic Bbh560 BUN 27 mg/dL 12/30/2017 Comp Metabolic Tnw055 B/C Ratio 20.0 Ratio 12/30/2017 Comp Metabolic Qhf081 CALCIUM 9.9 mg/dL 12/30/2017 Comp Metabolic Hpz679 ALK PHOS 106 U/L 12/30/2017 Comp Metabolic Umf817 AST(SGOT) 20 U/L 12/30/2017 Comp Metabolic Bka272 ALT(SGPT) 13 U/L 12/30/2017 Comp Metabolic Yoc404 BILI T 0.7 mg/dL 12/30/2017 Comp Metabolic Jdm487 ALBUMIN 4.2 g/dL 12/30/2017 Comp Metabolic Lyq993 TPRO 6.7 g/dL 12/30/2017 Comp Metabolic Ynn635 GLOB 2.6 g/dL 12/30/2017 Comp Metabolic Jmj772 A/G Ratio 1.6 Ratio 12/30/2017 Comp Metabolic Qvx224 Osmo 289 mOsmo 12/30/2017 Lipid Ord30 CHOL 167 mg/dL 12/30/2017 Lipid Ord30 HDL 63.0 mg/dl 12/30/2017 Lipid Ord30 TRIG 89 mg/dL 12/30/2017 Lipid Ord30 LDL 86 mg/dL 12/30/2017 Lipid Ord30 C/HDL 2.7 Ratio 12/30/2017 Urine Culture Ucult Preliminary NO Growth Day 1 04/17/2017 Urine Culture Ucult Complete NO Growth Day 2 04/17/2017 Comp Metabolic Nli215 NA 143 mEq/L 04/15/2017 Comp Metabolic Hqy833 K 4.6 mEq/L 04/15/2017 Comp Metabolic Rlf403 CL 110 mEq/L 04/15/2017 Comp Metabolic Ekn060 CO2 30.0 mEq/L 04/15/2017 Comp Metabolic Etr877 ANION GAP 8 04/15/2017 Comp Metabolic Vch351 GLUCOSE 159 mg/dL 04/15/2017 Comp Metabolic Mss012 Creat 1.1 mg/dL 04/15/2017 Comp Metabolic Ofc971 eGFR 54 ml/min/1.73m2 04/15/2017 Comp Metabolic Coi814 BUN 27 mg/dL 04/15/2017 Comp Metabolic Etl957 B/C Ratio 25.7 Ratio 04/15/2017 Comp Metabolic Zdx963 CALCIUM 9.4 mg/dL 04/15/2017 Comp Metabolic Kxj360 ALK PHOS 93 U/L 04/15/2017 Comp Metabolic Xct524 AST(SGOT) 19 U/L 04/15/2017 Comp Metabolic Pvx272 ALT(SGPT) 18 U/L 04/15/2017 Comp Metabolic Uvx463 BILI T 0.6 mg/dL 04/15/2017 Comp Metabolic Ybz401 ALBUMIN 3.9 g/dL 04/15/2017 Comp Metabolic Ytq215 TPRO 6.5 g/dL 04/15/2017 Comp Metabolic Ifo316 GLOB 2.6 g/dL 04/15/2017 Comp Metabolic Yvc310 A/G Ratio 1.5 Ratio 04/15/2017 Comp Metabolic Cnl982 Osmo 293 mOsmo 04/15/2017 Tsh Ord6 hTSH II 2.05 uIU/mL 04/15/2017 %Hba1C Jzj237 % HbA1c 87874- 6 6.3 % 04/15/2017 %Hba1C Rvt073 Gluc Ave 134 mg/dL 04/15/2017 Cbc With [...] 29.0 pg 04/15/2017 Cbc With Differential Ord2 [place]% 6.9 % 04/15/2017 Cbc With Differential Ord2 [...] 1.58 K/ul 04/15/2017 Cbc With Differential Ord2 [place] ABS# 0.5 K/ul 04/15/2017 Cbc With Differential [...] Ord28 U-Com Culture to follow 04/15/2017 %Hba1C Rtn020 % HbA1c 27555- 6 5.8 % 01/07/2017 %Hba1C Zjr455 Gluc Ave 120 mg/dL 01/07/2017 Urine Culture Ucult Preliminary NO Growth Day 1 09/21/2016 Urine Culture Ucult Complete NO Growth Day 2 09/21/2016 %Hba1C Gqm165 % HbA1c 49851- 6 6.0 % 09/17/2016 %Hba1C Nwr404 Gluc Ave 126 mg/dL 09/17/2016 Comp Metabolic Zpf162 NA 140 mEq/L 09/17/2016 Comp Metabolic Opb151 K 4.1 mEq/L 09/17/2016 Comp Metabolic Ero145 CL 105 mEq/L 09/17/2016 Comp Metabolic Quy338 CO2 29.0 mEq/L 09/17/2016 Comp Metabolic Prs134 ANION GAP 10 09/17/2016 Comp Metabolic Zsv070 GLUCOSE 89 mg/dL 09/17/2016 Comp Metabolic Vxv910 Creat 0.9 mg/dL 09/17/2016 Comp Metabolic Ozl339 eGFR 65 ml/min/1.73m2 09/17/2016 Comp Metabolic Lvq336 BUN 20 mg/dL 09/17/2016 Comp Metabolic Roy129 B/C Ratio 22.2 Ratio 09/17/2016 Comp Metabolic Ifb398 CALCIUM 9.3 mg/dL 09/17/2016 Comp Metabolic Uhd914 ALK PHOS 107 U/L 09/17/2016 Comp Metabolic Iau207 AST(SGOT) 22 U/L 09/17/2016 Comp Metabolic Ykl463 ALT(SGPT) 15 U/L 09/17/2016 Comp Metabolic Rom683 BILI T 0.7 mg/dL 09/17/2016 Comp Metabolic Vob512 ALBUMIN 4.0 g/dL 09/17/2016 Comp Metabolic Hzn816 TPRO 6.8 g/dL 09/17/2016 Comp Metabolic Xjg438 GLOB 2.8 g/dL 09/17/2016 Comp Metabolic Ais624 A/G Ratio 1.4 Ratio 09/17/2016 Comp Metabolic Gzc461 Osmo 281 mOsmo 09/17/2016 Microalbumin Ihx988 MicroAlb 44.3 mg/dL 09/17/2016 Tsh Ord6 hTSH [...] 29.0 pg 09/17/2016 Cbc With Differential Ord2 [place]% 8.1 % 09/17/2016 Cbc With Differential Ord2 [...] 1.78 K/ul 09/17/2016 Cbc With Differential Ord2 [place] ABS# 0.6 K/ul 09/17/2016 Cbc With Differential [...] palpation 07/06/2016 None Procedures Procedure Codes Date TRIAMCINOLONE ACET INJ NOS CPT-4: J3301 10/12/2018 THER/PROPH/DIAG INJ SC/IM CPT-4: 29838 10/12/2018 PPPS, SUBSEQ VISIT CPT- 4: G0439 09/06/2018 URINALYSIS NONAUTO W/O SCOPE CPT-4: 26222 12/29/2017 PPPS, SUBSEQ VISIT CPT- 4: G0439 03/30/2017 THER/PROPH/DIAG INJ SC/IM CPT-4: 71430 03/16/2017 TRIAMCINOLONE ACET INJ NOS CPT-4: J3301 03/16/2017 THER/PROPH/DIAG INJ SC/IM CPT-4: 38185 03/12/2017 TRIAMCINOLONE ACET INJ NOS CPT-4: J3301 03/12/2017 THER/PROPH/DIAG INJ SC/IM CPT-4: 49914 11/05/2016 TRIAMCINOLONE ACET INJ NOS CPT-4: J3301 11/05/2016 URINALYSIS NONAUTO W/O SCOPE CPT-4: 63000 09/18/2016 Vital Signs Date Vital 10/12/2018 Blood Pressure 1: 142/76 Code: 8480-6 BMI: 30.1 Code: 02471-1 Heart Rate 1: 83 bpm Height: 5'7" SpO2: 98% Weight: 192 lbs 09/06/2018 Blood Pressure 1: 142/66 Code: 8480-6 BMI: 30.9 Code: 39972-4 Heart Rate 1: 64 bpm Height: 5'7" SpO2: 98% Waist Measure (cm): 99 cm Weight: 197 lbs 08/16/2018 Blood Pressure 1: 140/70 Code: 8480-6 BMI: 34.4 Code: 29024-5 Heart Rate 1: 63 bpm Height: 5'7" SpO2: 95% Weight: 219 lbs 14 oz 04/12/2018 Blood Pressure 1: 160/70 Code: 8480-6 BMI: 33.0 Code: 02724-9 Heart Rate 1: 82 bpm Height: 5'7" SpO2: 95% Weight: 211 lbs 01/20/2018 Blood Pressure 1: 152/66 Code: 8480-6 BMI: 31.8 Code: 86456-6 Heart Rate 1: 52 bpm Height: 5'7" SpO2: 98% Temperature: 36.3 (C) / 97.3 (F) Weight: 203 lbs 12/29/2017 Blood Pressure 1: 168/72 Code: 8480-6 BMI: 32.1 Code: 46527-5 Heart Rate 1: 63 bpm Height: 5'7" SpO2: 98% Weight: 205 lbs 08/24/2017 Blood Pressure 1: 186/70 Code: 8480-6 Blood Pressure 1: 150/70 Code: 8480-6 BMI: 31.8 Code: 49508-5 Heart Rate 1: 53 bpm Height: 5'7" SpO2: 98% Weight: 203 lbs 07/26/2017 Blood Pressure 1: 206/78 Code: 8480-6 Blood Pressure 2: 210/84 Code: 8480-6 BMI: 32.0 Code: 44505-4 Heart Rate 1: 49 bpm Height: 5'7" SpO2: 97% Weight: 204 lbs 07/20/2017 Blood Pressure 1: 148/82 Code: 8480-6 Heart Rate 1: 90 bpm SpO2: 98% 05/27/2017 Blood Pressure 1: 142/72 Code: 8480-6 BMI: 30.5 Code: 10018-5 Heart Rate 1: 97 bpm Height: 5'7" [...] 1: 148/70 Code: 8480-6 BMI: 30.4 Code: 72249-9 Heart Rate 1: 54 bpm Height: 5'7" SpO2: 97% Weight: 194 lbs 03/30/2017 BMI: 33.2 Code: 30153-2 Height: 5'7" Weight: 212 lbs 03/16/2017 Blood Pressure 1: 140/80 Code: 8480-6 BMI: 34.0 Code: 36154-9 Heart Rate 1: 70 bpm Height: 5'7" SpO2: 95% Weight: 217 lbs 03/12/2017 Blood Pressure 1: 142/80 Code: 8480-6 BMI: 34.0 Code: 63320-4 Heart Rate 1: 76 bpm Height: 5'7" SpO2: 92% Weight: 217 lbs 02/17/2017 Blood Pressure 1: 162/64 Code: 8480-6 BMI: 32.9 Code: 51703-8 Heart Rate 1: 59 bpm Height: 5'7" SpO2: 97% Weight: 210 lbs 01/20/2017 Blood Pressure 1: 162/74 Code: 8480-6 BMI: 32.9 Code: 65140-1 Heart Rate 1: 56 bpm Height: 5'7" SpO2: 98% Weight: 210 lbs 11/17/2016 Blood Pressure 1: 156/60 Code: 8480-6 BMI: 34.8 Code: 02479-7 Heart Rate 1: 63 bpm Height: 5'7" SpO2: 96% Weight: 222 lbs 11/05/2016 Blood Pressure 1: 160/68 Code: 8480-6 BMI: 34.5 Code: 84059-0 Heart Rate 1: 66 bpm Height: 5'7" SpO2: 97% Temperature: 36.9 (C) / 98.5 (F) Weight: 220 lbs 09/21/2016 Blood Pressure 1: 180/72 Code: 8480-6 Blood Pressure 1: 166/72 Code: 8480-6 BMI: 32.1 Code: 06831-0 Heart Rate 1: 57 bpm Height: 5'7" SpO2: 98% Weight: 205 lbs 09/16/2016 Blood Pressure 1: 168/70 Code: 8480-6 Heart Rate 1: 49 bpm SpO2: 95% 08/03/2016 Blood Pressure 1: 162/70 Code: 8480-6 BMI: 32.0 Code: 55305-3 Heart Rate 1: 43 bpm Height: 5'7" SpO2: 98% Weight: 204 lbs 07/06/2016 Blood Pressure 1: 170/86 Code: 8480-6 BMI: 32.0 Code: 03141-5 Heart Rate 1: 48 bpm Height: 5'7" [...] Other allergic rhinitis[ICD10: J30.89] Krysta Camejo MD, [facility] CPT- 4: 65646 10/12/2018 ([id number]) 35794 EST. PATIENT, LEVEL IV Diagnosis: Essential (primary) hypertension[ICD10: I10] Diagnosis: Type 2 diabetes mellitus without complications[ICD10: E11.9] Diagnosis: Mixed hyperlipidemia[ICD10: E78.2] Fifi Camejo MD, [facility] CPT- 4: 83497 08/16/2018 ([id number]) 80410 EST. PATIENT, LEVEL IV Diagnosis: Type 2 diabetes mellitus without complications[ICD10: E11.9] Diagnosis: Mixed hyperlipidemia[ICD10: E78.2] Diagnosis: Essential (primary) hypertension[ICD10: I10] Diagnosis: Dysuria[ICD10: R30.0] Diagnosis: Pain in left foot[ICD10: M79.672] Fifi Camejo MD, [facility] CPT- 4: 03107 04/12/2018 ([id number]) 89853 EST. PATIENT, LEVEL III Diagnosis: Otalgia, bilateral[ICD10: H92.03] Diagnosis: Other allergic rhinitis[ICD10: J30.89] Yuridia Camejo MD, [facility] CPT-4: 73630 01/20/2018 ([id number]) 48205 EST. PATIENT, LEVEL IV Diagnosis: Type 2 diabetes mellitus without complications[ICD10: E11.9] Diagnosis: Mixed hyperlipidemia[ICD10: E78.2] Diagnosis: Essential (primary) hypertension[ICD10: I10] Diagnosis: Dysuria[ICD10: R30.0] Fifi Camejo MD, [facility] CPT-4: 43029 12/29/2017 [id number]) 42525 EST. PATIENT, LEVEL IV Diagnosis: Essential (primary) hypertension[ICD10: I10] Diagnosis: Cysts of left upper eyelid[ICD10: H02.824] Diagnosis: Pain in left foot[ICD10: M79.672] Fifi Camejo MD [facility] CPT- 4: 86473 08/24/2017 ([id number]) 70307 EST. PATIENT, LEVEL III Diagnosis: Essential (primary) hypertension[ICD10: I10] Fifi Camejo MD [facility] CPT-4: 30932 07/26/2017 ([id number]) Miscellaneous no charge Diagnosis: Essential (primary) hypertension[ICD10: I10] Fifi Camejo MD [facility] CPT-4: 66904 07/20/2017 07423 EST. PATIENT, LEVEL III Diagnosis: Otalgia, bilateral[ICD10: H92.03] Diagnosis: Dizziness and giddiness[ICD10: R42] Diagnosis: Mixed hyperlipidemia[ICD10: E78.2] Krysta Camejo MD [facility] CPT-4: 02144 05/27/2017 ([id number]) Miscellaneous no charge Diagnosis: Essential (primary) hypertension[ICD10: I10] Krysta Camejo MD [facility] CPT-4: 55047 05/07/2017 ([id number]) 03615 EST. PATIENT, LEVEL IV Diagnosis: Otalgia, bilateral[ICD10: H92.03] Diagnosis: Dizziness and giddiness[ICD10: R42] Diagnosis: Orthostatic hypotension[ICD10: I95.1] Fifi Camejo MD [facility] CPT-4: 45647 05/03/2017 10759 EST. PATIENT, LEVEL IV Diagnosis: Essential (primary) hypertension[ICD10: I10] Diagnosis: Type 2 diabetes mellitus without complications[ICD10: E11.9] Diagnosis: Gastro-esophageal reflux disease without esophagitis[ICD10: K21.9] Diagnosis: Dizziness and giddiness[ICD10: R42] Diagnosis: Dysuria[ICD10: R30.0] Diagnosis: Other malaise[ICD10: R53.81] Krysta Camejo MD, [facility] CPT-4: 24785 04/15/2017 ([id number]) 36835 EST. PATIENT, LEVEL IV Diagnosis: Type 2 diabetes mellitus without complications[ICD10: E11.9] Diagnosis: Otalgia, bilateral[ICD10: H92.03] Diagnosis: Essential (primary) hypertension[ICD10: I10] Diagnosis: Other allergic rhinitis[ICD10: J30.89] Fifi Camejo MD [facility] CPT-4: 01503 03/16/2017 28199 EST. PATIENT, LEVEL IV Diagnosis: Other acute sinusitis[ICD10: J01.80] Diagnosis: Acute suppurative otitis media without spontaneous rupture of ear drum, bilateral[ICD10: H66.003] Diagnosis: Other allergic rhinitis[ICD10: J30.89] Krysta Camejo MD [facility] CPT- 4: 22444 03/12/2017 ([id number]) 41814 EST. PATIENT, LEVEL IV Diagnosis: Essential (primary) hypertension[ICD10: I10] Diagnosis: Type 2 diabetes mellitus without complications[ICD10: E11.9] Fifi Camejo MD [facility] CPT-4: 77532 02/17/2017 ([id number]) 20396 EST. PATIENT, LEVEL IV Diagnosis: Essential (primary) hypertension[ICD10: I10] Diagnosis: Type 2 diabetes mellitus without complications[ICD10: E11.9] Fifi Camejo MD [facility] CPT-4: 76082 01/20/2017 ([id number]) 91715 EST. PATIENT, LEVEL IV Diagnosis: Essential (primary) hypertension[ICD10: I10] Diagnosis: Type 2 diabetes mellitus without complications[ICD10: E11.9] Diagnosis: Gastro-esophageal reflux disease without esophagitis[ICD10: K21.9] Fifi Camejo MD [facility] CPT-4: 92829 11/17/2016 ([id number]) 00936 EST. PATIENT, LEVEL III Diagnosis: Acute bronchitis due to other specified organisms[ICD10: J20.8] Diagnosis: Cough[ICD10: R05] Fifi Camejo MD [facility] CPT-4: 36063 11/05/2016 ([id number]) 70469 EST. PATIENT, LEVEL IV Diagnosis: Essential (primary) hypertension[ICD10: I10] Diagnosis: Type 2 diabetes mellitus without complications[ICD10: E11.9] Fifi Camejo MD [facility] CPT-4: 01377 09/21/2016 ([id number]) Miscellaneous no charge Diagnosis: Essential (primary) hypertension[ICD10: I10] [facility] CPT-4: 60599 09/16/2016 ([id number]) 40706 EST. PATIENT, LEVEL III Diagnosis: Type 2 diabetes mellitus without complications[ICD10: E11.9] Diagnosis: Essential (primary) hypertension[ICD10: I10] [facility] CPT-4: 45270 08/03/2016 ([id number]) OFFICE VISIT, NEW - LEVEL 4 Diagnosis: Essential (primary) hypertension[ICD10: I10] Diagnosis: Type 2 diabetes mellitus without complications[ICD10: E11.9] Diagnosis: Carpal tunnel syndrome, left upper limb[ICD10: G56.02] Diagnosis: Right upper quadrant pain[ICD10: R10.11] Diagnosis: Mixed hyperlipidemia[ICD10: E78.2] [facility] CPT- 4: 13797 07/06/2016 Plan of Care Planned Activity Notes Codes Status Date Patient Education: Patient Medication Summary Completed 12/28/2018 [...] allergy spray. 10/12/2018 Appointment: Krysta Dale WPtel: [address] [place], [place] [id number] (30 min) [facility] 10/12/2018 Patient Education: Patient Medication Summary Completed [...] surrogate. 09/06/2018 Appointment: Yuridia Walsh WPtel: [phone] [phone] [facility] - Annual Wellness Visit 09/06/2018 Patient Education: Patient Medication Summary Completed 09/06/2018 Appointment: Yuridia Walsh WPtel: [phone] [phone] [facility] - Annual Wellness Visit 08/29/2018 [...] dications. 08/16/2018 [facility]ment[phone] [facility] ([facility] Moderate 08/16/2018 Patient [...] foot. 04/12/2018 App[facility]ment[phone] [facility] ([facility] min) Moderate 04/12/2018 Patient Education: Patient Medication Summary Completed 04/12/2018 Care Plan: Referral Order SNOMED-CT : [id number] Pending 04/12/2018 Patient Education: Patient Medication Summary [...] [facility] [phone] [phone] [place] (15 min) Moderate 01/20/2018 Patient Education: Patient [...] controlled. 12/29/2017 Appointment: [facility] [phone] [facility] [place] (15 min) Moderate 12/29/2017 [...] Chago Singh 08/24/2017 Appointment: [facility] [phone] [facility] (15 min) Moderate 08/24/2017 Patient Education: Patient Medication Summary Completed 08/24/2017 Care Plan: Referral Order SNOMED-CT : [id number] Pending 08/24/2017 Visit Plan: Hypertension - uncontrolled [...] listed above. 07/26/2017 Appointment: Fifi Camejo WPtel: [phone] [facility] (15 min) Moderate 07/26/2017 Patient Education: Patient [...] to medications. 05/27/2017 App[facility]ment[phone] [facility] ([facility] min) Moderate 05/27/2017 Patient Education: Patient Medication Summary Completed 05/27/2017 Appointment: Nurse Visit 05/07/2017 Patient Education: Patient Medication Summary Completed 05/07/2017 Visit Plan: Persistent vergito with bilateral air-fluid levels and ear pain. Pt was seen by Dr. Calvo- she did not like his response to her complaints. I have recommended a referral to ENT in [place] or [place]. I suspect she may need myringotomy tubes. Pt to continue with flonase. Orthostatic hypotension - dc doxazosin. Monitor blood pressures at home. stop the doxazosin meclizine change to 1/2 pill three times a day come back on Wednesday for blood pressure check 05/03/2017 Appointment: Fifi Camejo WPtel: [phone] [facility] [place] (15 min) Moderate 05/03/2017 Patient Education: Patient Medication Summary Completed 05/03/2017 Appointment: [facility] [phone] [facility] [place] (15 min) Moderate 04/21/2017 Visit Plan: [...] control. 04/15/2017 Appointment: [phone] [facility] ([facility] min) Complex [...] [facility] [phone] [facility] [facility] - Annual Wellness Visit 03/30/2017 [...] [facility] cal[facility] after March 24 Hypertension - well controlled - continue with current medications, continue with no added salt diet. Pt has been encouraged to exercise daily. The pt has been advised to call the office if there are any acute concerns about change in blood pressure readings at home. 03/16/2017 Appointment: [facility] [phone] [facility] ([facility] min) [facility] 03/16/2017 Patient Education: Patient Medication Summary Completed 03/16/2017 Patient Education: Obesity Completed 03/16/2017 Care Plan: Referral Order SNOMED-CT : [id number] Pending 03/16/2017 Visit Plan: Allergies - chronic [...] less controlled. 02/17/2017 Appointment: [facility] [phone] [facility] ([facility] min) Complex 02/17/2017 Patient [...] controlled. 01/20/2017 Appointment: [facility] [phone] [facility] (30 min) Complex 01/20/2017 Patient [...] dexilant 11/17/2016 Appointment: [facility] [phone] [facility] (30 min) Complex 11/17/2016 Patient [...] range. 09/21/2016 Appointment: [facility]i [facility]amejo [facility] [phone] [facility] [place] (15 min) Moderate 09/21/2016 Patient Education: [...] time. 08/03/2016 Appointment: [facility] [phone] [facility] [place] (15 min) Moderate 08/03/2016 [...] night, call if not improving. 07/06/2016 Appointment: [facility]el[facility] [phone] [facility] [place] New Patient 07/06/2016 Patient Education: Patient Medication Summary Completed 07/06/2016 Patient Education: Obesity Completed 07/06/2016 Referral: Dr Calvo Referral Completed Referral: Freeman Huff Referral Appointment Requested Referral: External, Ordering Provider Referral Appointment Requested Instructions Comment . Hypertension - uncontrolled - the patient's [...] shows levels averaging in the 90-110 range. Kenalog shot today. Flonase nasal spray twice [...] readings are starting to become less controlled. decrease the metoprolol to 1/2 pill twice [...] monitor your heart rate Consider referral for mixer operator vacuum pan salt for possible stress test if needed. Call [...] monitor your heart rate Consider referral for mixer operator vacuum pan salt for possible stress test if needed. Call [...] to allow for greater blood glucose control. stop the doxazosin meclizine change to 1/2 pill three times a day come back on Wednesday for blood pressure check . Persistent vergito with bilateral air-fluid levels and ear pain. Pt was seen by Dr. Calvo- she did not like his response to her complaints. I have recommended a referral to ENT in [place] or [place]. I suspect she may need myringotomy tubes. [...] - recommended referral to Dr. Anders in [place]
--- OUTSIDE RECORDS SUMMARY | 2019-03-08 16:49 | XMS REPORT | CCD ---
Author Author Fifi Camejo Organization Fifi Camejo MD, [facility] Address [address] [place] [address] Phone Care Team Providers Care Slate Splitter Name Role Phone PP Unavailable CCM Unavailable Summary Purpose Interface Exchange Insurance Providers Payer name Policy type / Coverage type Covered constitution party ID Effective Begin Date Effective End Date WPS Medicare Part B Medicare Part B [id number] 2018 Unknown FOR LIFE WPS Medicare Part B [id number] Unknown Family history Father Diagnosis Age At Onset Cancer Unknown Brother Diagnosis Age At Onset Diabetes mellitus Type 2 Unknown Heart Attack Unknown Social History Social History Element Codes Description Effective Dates Marital status Unknown Wu 11/05/2016 Number of children Unknown 1 07/06/2016 Employment Unknown Retired 07/06/[address]: 256372701 Never smoker 07/06/[address]: 760621065 Never drinks alcohol 07/06/2016 Allergies, Adverse Reactions, Alerts Substance Reaction Codes Entered Date Inactivated Date Status Protonix hives RxNorm: 203425 09/06/2018 No Inactive Date Active IV DYE, [...] Start Date Stop Date Status Fill Instructions metoprolol tartrate 50 mg tablet RxNorm: 004987 1/2 TABLET(S) PO BID 12/02/2018 No Stop Date Active amlodipine 10 mg tablet RxNorm: 748497 TAKE 1 TABLET DAILY 10/24/2018 No Stop Date Active cefdinir 300 mg capsule RxNorm: 517448 1 Capsule(s) PO BID 10/19/2018 10/22/2018 Inactive Zithromax Z-Juan 250 mg tablet RxNorm: 615967 1 Tablet(s) PO UD 10/19/2018 10/23/2018 Inactive zpack as directed glimepiride 4 mg tablet RxNorm: 757870 Tablet(s) 1 TABLET(S) PO DAILY 10/12/2018 No Stop Date Active cefdinir 300 mg capsule RxNorm: 233218 1 Capsule(s) PO BID 10/12/2018 10/18/2018 Inactive Zithromax Z-Juan 250 mg tablet RxNorm: 359378 1 Tablet(s) PO UD 10/12/2018 10/16/2018 Inactive zpack as directed Tessalon Perles 100 mg capsule RxNorm: 895721 2 Capsule(s) PO TID as needed cough 10/12/2018 10/16/2018 Inactive Kenalog 40 mg/mL suspension for injection RxNorm: 7239175 1 Milliliter(s) Inj 10/12/2018 10/12/2018 Inactive Zithromax Z-Juan 250 mg tablet RxNorm: 583043 1 Tablet(s) PO UD 08/22/2018 08/26/2018 Inactive zpack as directed clonidine HCl 0.1 mg tablet RxNorm: 527478 1 Tablet(s) PO QAM 08/16/2018 08/10/2019 Active losartan 100 mg tablet RxNorm: 246900 1 TABLET(S) PO DAILY FOR HIGH BLOOD PRESSURE 08/12/2018 No Stop Date Active alprazolam 0.5 mg tablet RxNorm: 199770 1 Tablet(s) PO TID as needed anxiety 06/30/2018 12/26/2018 Inactive fluticasone 50 mcg/actuation nasal spray,suspension RxNorm: 6045815 USE 1 SPRAY NASALLY TWICE A DAY 05/06/2018 No Stop Date Active clonidine HCl 0.1 mg tablet RxNorm: 758260 1 Tablet(s) PO BID 04/14/2018 08/15/2018 Inactive clonidine HCl 0.1 mg tablet RxNorm: 902082 1 Tablet(s) PO TID 04/12/2018 04/13/2018 Inactive Zithromax Z-Juan 250 mg tablet RxNorm: 840074 1 Tablet(s) PO UD 01/20/2018 08/21/2018 Inactive disregard first rx for 1 - patient needs 3 packs-please dispense generic azithromycin Zithromax Z-Juan 250 mg tablet RxNorm: 470022 1 Tablet(s) PO UD 01/20/2018 01/19/2018 Inactive Zithromax Z-Juan 250 mg tablet RxNorm: 574342 1 Tablet(s) PO UD 01/20/2018 01/19/2018 Inactive disregard first rx for 1 - patient needs 3 packs Zithromax Z-Juan 250 mg tablet RxNorm: 249838 1 Tablet(s) PO UD 01/20/2018 01/19/2018 Inactive atorvastatin 10 mg tablet RxNorm: 528205 1 Tablet(s) PO QPM 12/30/2017 12/24/2018 Inactive atorvastatin 10 mg tablet RxNorm: 063880 1 Tablet(s) PO QPM 12/30/2017 12/29/2017 Inactive clonidine HCl 0.1 mg tablet RxNorm: 795062 1 Tablet(s) PO BID 12/29/2017 04/11/2018 Inactive Lipitor 10 mg tablet RxNorm: 669268 1 Tablet(s) PO QPM 12/29/2017 12/29/2017 Inactive OKAY TO DISPENSE GENERIC metoprolol tartrate 50 mg tablet RxNorm: 004658 1/2 Tablet(s) PO BID 12/29/2017 12/01/2018 Inactive alprazolam 0.5 mg tablet RxNorm: 496359 1 Tablet(s) PO TID as needed anxiety 11/18/2017 05/16/2018 Inactive glimepiride 4 mg tablet RxNorm: 222949 1 TABLET(S) PO DAILY 11/15/2017 10/11/2018 Inactive alprazolam 0.5 mg tablet RxNorm: 937650 1 Tablet(s) PO TID as needed anxiety 09/20/2017 11/17/2017 Inactive Zithromax Z-Juan 250 mg tablet RxNorm: 866102 1 Tablet(s) PO UD 09/20/2017 12/28/2017 Inactive Zithromax Z-Juan 250 mg tablet RxNorm: 897573 1 Tablet(s) PO UD 09/14/2017 09/19/2017 Inactive clonidine HCl 0.1 mg tablet RxNorm: 884074 1/2 Tablet(s) PO BID 08/24/2017 12/28/2017 Inactive amlodipine 10 mg tablet RxNorm: 294033 1 Tablet(s) PO daily 08/24/2017 08/18/2018 Inactive erythromycin 5 mg/gram (0.5 %) eye ointment RxNorm: 354870 1 Gram(s) ophthalmic (eye) QID left eye cyst 08/24/2017 09/06/2017 Inactive losartan 100 mg tablet RxNorm: 692906 1 Tablet(s) PO daily for high blood pressure 08/16/2017 08/10/2018 Inactive metoprolol tartrate 50 mg tablet RxNorm: 348543 1/2 Tablet(s) PO BID 07/26/2017 12/28/2017 Inactive clonidine HCl 0.1 mg tablet RxNorm: 151337 1/2 Tablet(s) PO BID 07/26/2017 08/23/2017 Inactive metoprolol tartrate 50 mg tablet RxNorm: 833831 1 Tablet(s) PO BID 07/21/2017 07/25/2017 Inactive amlodipine 10 mg tablet RxNorm: 504365 1 TABLET(S) PO DAILY 06/29/2017 08/23/2017 Inactive Lipitor 10 mg tablet RxNorm: 804085 1 Tablet(s) PO QPM 05/27/2017 12/28/2017 Inactive OKAY TO DISPENSE GENERIC alprazolam 0.5 mg tablet RxNorm: 298470 1 Tablet(s) PO TID as needed anxiety 05/18/2017 08/15/2017 Inactive hydrochlorothiazide 12.5 mg tablet RxNorm: 783266 1 Tablet(s) PO daily 04/22/2017 05/21/2017 Inactive hydrochlorothiazide 12.5 mg tablet RxNorm: 844117 1 Tablet(s) PO daily 04/22/2017 04/21/2017 Inactive Cipro 500 mg tablet RxNorm: 636183 1 Tablet(s) PO BID 04/16/2017 04/22/2017 Inactive Zofran 4 mg tablet RxNorm: 398620 1 Tablet(s) PO BID as needed nausea and vomitting 04/15/2017 04/19/2017 Inactive Lipitor 10 mg tablet RxNorm: 760781 1 Tablet(s) PO QPM 03/30/2017 05/26/2017 Inactive OKAY TO DISPENSE GENERIC Kenalog 40 mg/mL suspension for injection RxNorm: 7808338 1 Milliliter(s) Inj 03/16/2017 03/16/2017 Inactive doxazosin 4 mg tablet RxNorm: 905710 1.5 Tablet(s) PO BID 03/16/2017 05/02/2017 Inactive prednisone 10 mg tablets in a dose pack RxNorm: 844303 Tablet(s) take dose pack as directed PO take with food 03/16/2017 05/23/2017 Inactive Kenalog 40 mg/mL suspension for injection RxNorm: 6051721 Milliliter(s) Inj 03/12/2017 03/12/2017 Inactive Zithromax Z-Juan 250 mg tablet RxNorm: 443643 1 Tablet(s) PO daily 03/11/2017 03/10/2017 Inactive zpack as directed Zithromax Z-Juan 250 mg tablet RxNorm: 865507 1 Tablet(s) PO daily 03/11/2017 03/15/2017 Inactive zpack as directed doxazosin 4 mg tablet RxNorm: 548330 1.5 Tablet(s) PO BID 02/12/2017 03/15/2017 Inactive fluticasone 50 mcg/actuation nasal spray,suspension RxNorm: 1359016 1 SPRAY NASAL BID 02/05/2017 05/05/2018 Inactive metoprolol tartrate 75 mg tablet RxNorm: 4326194 1 Tablet(s) PO BID 01/29/2017 07/19/2017 Inactive metoprolol tartrate 75 mg tablet RxNorm: 1688481 1 Tablet(s) PO BID 01/29/2017 01/28/2017 Inactive doxazosin 4 mg tablet RxNorm: 436973 1 Tablet(s) PO BID 01/20/2017 02/11/2017 Inactive pantoprazole 40 mg tablet,delayed release RxNorm: 585780 1 Tablet(s) PO daily 12/24/2016 01/19/2017 Inactive pantoprazole 40 mg tablet,delayed release RxNorm: 955377 1 Tablet(s) PO daily 12/24/2016 12/23/2016 Inactive alprazolam 0.5 mg tablet RxNorm: 815731 1 Tablet(s) PO TID as needed anxiety 12/03/2016 04/01/2017 Inactive fluticasone 50 mcg/actuation nasal spray,suspension RxNorm: 0536528 1 [place] NASAL BID 11/25/2016 12/24/2016 Inactive Dexilant 60 mg capsule, delayed release RxNorm: 311665 1 Capsule(s) PO daily 11/25/2016 11/24/2016 Inactive fluticasone 50 mcg/actuation nasal spray,suspension RxNorm: 5715475 1 [place] NASAL BID 11/25/2016 11/24/2016 Inactive fluticasone 50 mcg/actuation nasal spray,suspension RxNorm: 8628843 1 [place] NASAL BID 11/25/2016 11/24/2016 Inactive Dexilant 60 mg capsule, delayed release RxNorm: 389112 1 Capsule(s) PO daily 11/25/2016 12/23/2016 Inactive ProAir RespiClick 90 mcg/actuation breath activated RxNorm: 5585425 1 INH bid and QID as needed 11/19/2016 05/17/2017 Inactive Please send STAT Flonase Allergy Relief 50 mcg/actuation nasal spray,suspension RxNorm: 2794005 1 [place] NASAL BID 11/19/2016 11/24/2016 Inactive glimepiride 4 mg tablet RxNorm: 654208 1 Tablet(s) PO daily 11/19/2016 11/13/2017 Inactive metoprolol tartrate 50 mg tablet RxNorm: 550531 1 Tablet(s) PO BID 11/19/2016 01/28/2017 Inactive Flonase Allergy Relief 50 mcg/actuation nasal spray,suspension RxNorm: 8752836 1 [place] NASAL BID 11/17/2016 11/18/2016 Inactive metoprolol tartrate 50 mg tablet RxNorm: 604800 1 Tablet(s) PO BID 11/17/2016 11/18/2016 Inactive ProAir RespiClick 90 mcg/actuation breath activated RxNorm: 8655652 1 INH bid and QID as needed 11/17/2016 11/16/2016 Inactive glimepiride 4 mg tablet RxNorm: 247532 1 Tablet(s) PO daily 11/17/2016 11/18/2016 Inactive ProAir RespiClick 90 mcg/actuation breath activated RxNorm: 8325355 1 INH bid and QID as needed 11/17/2016 11/18/2016 Inactive Please send STAT Kenalog 40 mg/mL suspension for injection RxNorm: 8794562 1 Milliliter(s) Inj 11/05/2016 11/05/2016 Inactive azithromycin 250 mg tablet RxNorm: 184376 Tablet(s) PO 2 tabs on day #1, then daily x 4 days 11/05/2016 12/23/2016 Inactive doxazosin 4 mg tablet RxNorm: 423476 1 Tablet(s) PO QPM 10/02/2016 01/19/2017 Inactive doxazosin 4 mg tablet RxNorm: 591573 1 Tablet(s) PO QPM 09/29/2016 10/01/2016 Inactive doxazosin 4 mg tablet RxNorm: 830565 1 Tablet(s) PO QPM 09/21/2016 09/28/2016 Inactive Cipro 500 mg tablet RxNorm: 916534 1 Tablet(s) PO BID 09/18/2016 09/17/2016 Inactive Cipro 500 mg tablet RxNorm: 452435 1 Tablet(s) PO BID 09/18/2016 09/24/2016 Inactive losartan 100 mg tablet RxNorm: 208053 1 Tablet(s) PO daily for high blood pressure 09/16/2016 09/15/2016 Inactive alprazolam 0.5 mg tablet RxNorm: 961480 1 Tablet(s) PO TID as needed anxiety 09/16/2016 11/14/2016 Inactive losartan 100 mg tablet RxNorm: 672415 1 Tablet(s) PO daily for high blood pressure 09/16/2016 08/15/2017 Inactive amlodipine 10 mg tablet RxNorm: 222595 1 Tablet(s) PO daily 08/03/2016 06/28/2017 Inactive Zyrtec 10 mg tablet RxNorm: 0194503 1 Tablet(s) PO daily 08/03/2016 09/15/2016 Inactive losartan 25 mg tablet RxNorm: 682189 1 Tablet(s) PO daily 07/08/2016 09/15/2016 Inactive Lipitor 10 mg tablet RxNorm: 226235 1 Tablet(s) PO QPM 07/08/2016 07/17/2016 Inactive OKAY TO DISPENSE GENERIC Lipitor 10 mg tablet RxNorm: 300717 1 Tablet(s) PO QPM 07/06/2016 07/07/2016 Inactive OKAY TO DISPENSE GENERIC losartan 25 mg tablet RxNorm: 284440 1 Tablet(s) PO daily 07/06/2016 07/07/2016 Inactive meclizine 25 mg tablet RxNorm: 551337 1 Tablet(s) PO TID as needed No Start Date Active Parafon Forte DSC 500 mg tablet RxNorm: 005405 1 Tablet(s) PO QID No Start Date Active Pazeo 0.7 % eye drops RxNorm: 4121428 Drop(s) ophthalmic (eye) as needed dry eyes No Start Date Active Zithromax Z-Juan 250 mg tablet RxNorm: 427915 1 Tablet(s) PO UD No Start Date 09/13/2017 Inactive glimepiride 4 mg tablet RxNorm: 050398 1 Tablet(s) PO daily No Start Date 11/16/2016 Inactive metoprolol tartrate 100 mg tablet RxNorm: 354574 1 Tablet(s) PO BID No Start Date 07/21/2017 Inactive naproxen 500 mg tablet RxNorm: 453773 1 Tablet(s) PO BID No Start Date 03/23/2017 Inactive amlodipine 5 mg tablet RxNorm: 247627 1 Tablet(s) PO daily No Start Date 08/02/2016 Inactive metoprolol tartrate 50 mg tablet RxNorm: 963482 1 Tablet(s) PO BID No Start Date 11/16/2016 Inactive Medication Administered Medication Codes Instructions Start Date Status Kenalog 40 mg/mL suspension for injection RxNorm: 6694455 1Milliliter 10/12/2018 No longer Active Kenalog 40 mg/mL suspension for injection RxNorm: 2114602 1Milliliter 03/16/2017 No longer Active Kenalog 40 mg/mL suspension for injection RxNorm: 9675383 Milliliter 03/12/2017 No longer Active Kenalog 40 mg/mL suspension for injection RxNorm: 9842849 1Milliliter 11/05/2016 No longer Active Immunizations Vaccine [...] Observation Code Item Item Code Result Date Lipid Ord30 CHOL 169 mg/dL 08/18/2018 Lipid Ord30 HDL 54.0 mg/dl 08/18/2018 Lipid Ord30 TRIG 91 mg/dL 08/18/2018 Lipid Ord30 LDL 97 mg/dL 08/18/2018 Lipid Ord30 C/HDL 3.1 Ratio 08/18/2018 Microalbumin Hze351 MicroAlb 7.5 mg/dL 08/18/2018 Cbc With Differential [...] 29.6 pg 08/18/2018 Cbc With Differential Ord2 Dup[place]% 10.6 % 08/18/2018 Cbc With Differential Ord2 [...] 1.69 K/ul 08/18/2018 Cbc With Differential Ord2 [place] ABS# 0.6 K/ul 08/18/2018 Cbc With Differential Ord2 Eos ABS# 0.3 K/ul 08/18/2018 Cbc With Differential Ord2 Baso ABS# 0.0 K/ul 08/18/2018 Comp Metabolic Lai683 NA 137 mEq/L 08/18/2018 Comp Metabolic Ogc706 K 3.8 mEq/L 08/18/2018 Comp Metabolic Uqq083 CL 103 mEq/L 08/18/2018 Comp Metabolic Iny097 CO2 26.0 mEq/L 08/18/2018 Comp Metabolic Yua518 ANION GAP 12 08/18/2018 Comp Metabolic Dsn887 GLUCOSE 110 mg/dL 08/18/2018 Comp Metabolic Ifq447 Creat 1.2 mg/dL 08/18/2018 Comp Metabolic Hyp126 eGFR 47 ml/min/1.73m2 08/18/2018 Comp Metabolic Szd163 BUN 25 mg/dL 08/18/2018 Comp Metabolic Qsf364 B/C Ratio 21.0 Ratio 08/18/2018 Comp Metabolic Avi728 CALCIUM 9.4 mg/dL 08/18/2018 Comp Metabolic Hhq757 ALK PHOS 99 U/L 08/18/2018 Comp Metabolic Zfv062 AST(SGOT) 31 U/L 08/18/2018 Comp Metabolic Ium608 ALT(SGPT) 27 U/L 08/18/2018 Comp Metabolic Qeo213 BILI T 0.7 mg/dL 08/18/2018 Comp Metabolic Tgg793 ALBUMIN 4.2 g/dL 08/18/2018 Comp Metabolic Mbl631 TPRO 6.7 g/dL 08/18/2018 Comp Metabolic Wbd096 GLOB 2.5 g/dL 08/18/2018 Comp Metabolic Diw135 A/G Ratio 1.7 Ratio 08/18/2018 Comp Metabolic Ape046 Osmo 279 mOsmo 08/18/2018 %Hba1C Pwo992 % HbA1c 60107- 6 6.1 % 08/18/2018 %Hba1C Jph552 Gluc Ave 128 mg/dL 08/18/2018 Tsh Ord6 TSH (3rd IS) 3.93 uIU/mL 08/18/2018 Lipid Ord30 CHOL 146 mg/dL 04/15/2018 Lipid Ord30 HDL 62.0 mg/dl 04/15/2018 Lipid Ord30 TRIG 88 mg/dL 04/15/2018 Lipid Ord30 LDL 66 mg/dL 04/15/2018 Lipid Ord30 C/HDL 2.4 Ratio 04/15/2018 %Hba1C Nkq920 % HbA1c 59102- 6 6.3 % 04/15/2018 %Hba1C Kud002 Gluc Ave 134 mg/dL 04/15/2018 Cbc With [...] 30.2 pg 04/15/2018 Cbc With Differential Ord2 [place]% 6.8 % 04/15/2018 Cbc With Differential Ord2 [...] 2.10 K/ul 04/15/2018 Cbc With Differential Ord2 [place] ABS# 0.5 K/ul 04/15/2018 Cbc With Differential Ord2 Eos ABS# 0.2 K/ul 04/15/2018 Cbc With Differential Ord2 Baso ABS# 0.0 K/ul 04/15/2018 Comp Metabolic Wck732 NA 140 mEq/L 04/15/2018 Comp Metabolic Trz980 K 4.3 mEq/L 04/15/2018 Comp Metabolic Vgr431 CL 106 mEq/L 04/15/2018 Comp Metabolic Nbe955 CO2 23.0 mEq/L 04/15/2018 Comp Metabolic Ccy109 ANION GAP 15 04/15/2018 Comp Metabolic Ghu429 GLUCOSE 90 mg/dL 04/15/2018 Comp Metabolic Dfo294 Creat 1.2 mg/dL 04/15/2018 Comp Metabolic May248 eGFR 45 ml/min/1.73m2 04/15/2018 Comp Metabolic Drf876 BUN 28 mg/dL 04/15/2018 Comp Metabolic Nts067 B/C Ratio 22.8 Ratio 04/15/2018 Comp Metabolic Ayy877 CALCIUM 9.5 mg/dL 04/15/2018 Comp Metabolic Nqx833 ALK PHOS 95 U/L 04/15/2018 Comp Metabolic Tzu209 AST(SGOT) 20 U/L 04/15/2018 Comp Metabolic Jxh925 ALT(SGPT) 13 U/L 04/15/2018 Comp Metabolic Bji719 BILI T 0.5 mg/dL 04/15/2018 Comp Metabolic Beb488 ALBUMIN 4.1 g/dL 04/15/2018 Comp Metabolic Xlv111 TPRO 6.6 g/dL 04/15/2018 Comp Metabolic Ukg868 GLOB 2.5 g/dL 04/15/2018 Comp Metabolic Sww494 A/G Ratio 1.6 Ratio 04/15/2018 Comp Metabolic Uzx734 Osmo 284 mOsmo 04/15/2018 Comp Metabolic Ria678 NA 137 mEq/L 02/04/2018 Comp Metabolic Mfb949 K 4.0 mEq/L 02/04/2018 Comp Metabolic Dvn098 CL 104 mEq/L 02/04/2018 Comp Metabolic Ubp507 CO2 27.0 mEq/L 02/04/2018 Comp Metabolic Mxo031 ANION GAP 10 02/04/2018 Comp Metabolic Vsj104 GLUCOSE 212 mg/dL 02/04/2018 Comp Metabolic Xky114 Creat 1.2 mg/dL 02/04/2018 Comp Metabolic Ijl756 eGFR 47 ml/min/1.73m2 02/04/2018 Comp Metabolic Xek985 BUN 20 mg/dL 02/04/2018 Comp Metabolic Ufh723 B/C Ratio 16.8 Ratio 02/04/2018 Comp Metabolic Mwu735 CALCIUM 8.9 mg/dL 02/04/2018 Comp Metabolic Gsq547 ALK PHOS 107 U/L 02/04/2018 Comp Metabolic Xid152 AST(SGOT) 17 U/L 02/04/2018 Comp Metabolic Igq170 ALT(SGPT) 11 U/L 02/04/2018 Comp Metabolic Ffe034 BILI T 0.4 mg/dL 02/04/2018 Comp Metabolic Evd018 ALBUMIN 3.8 g/dL 02/04/2018 Comp Metabolic Hxd537 TPRO 6.2 g/dL 02/04/2018 Comp Metabolic Dek274 GLOB 2.4 g/dL 02/04/2018 Comp Metabolic Ocu236 A/G Ratio 1.6 Ratio 02/04/2018 Comp Metabolic Eww295 Osmo 283 mOsmo 02/04/2018 %Hba1C Vqx259 % HbA1c 84174- 6 6.3 % 12/30/2017 %Hba1C Dox883 Gluc Ave 134 mg/dL 12/30/2017 Comp Metabolic Vmw835 NA 142 mEq/L 12/30/2017 Comp Metabolic Niv868 K 4.4 mEq/L 12/30/2017 Comp Metabolic Zjw839 CL 103 mEq/L 12/30/2017 Comp Metabolic Jra967 CO2 31.0 mEq/L 12/30/2017 Comp Metabolic Xzy797 ANION GAP 12 12/30/2017 Comp Metabolic Xzs113 GLUCOSE 119 mg/dL 12/30/2017 Comp Metabolic Owx821 Creat 1.4 mg/dL 12/30/2017 Comp Metabolic Xfb415 eGFR 41 ml/min/1.73m2 12/30/2017 Comp Metabolic Cbt495 BUN 27 mg/dL 12/30/2017 Comp Metabolic Qbe605 B/C Ratio 20.0 Ratio 12/30/2017 Comp Metabolic Ejf731 CALCIUM 9.9 mg/dL 12/30/2017 Comp Metabolic Lsp268 ALK PHOS 106 U/L 12/30/2017 Comp Metabolic Ttd079 AST(SGOT) 20 U/L 12/30/2017 Comp Metabolic Mfr565 ALT(SGPT) 13 U/L 12/30/2017 Comp Metabolic Gwl570 BILI T 0.7 mg/dL 12/30/2017 Comp Metabolic Sxf124 ALBUMIN 4.2 g/dL 12/30/2017 Comp Metabolic Umk226 TPRO 6.7 g/dL 12/30/2017 Comp Metabolic Esp095 GLOB 2.6 g/dL 12/30/2017 Comp Metabolic Grb409 A/G Ratio 1.6 Ratio 12/30/2017 Comp Metabolic Jcv034 Osmo 289 mOsmo 12/30/2017 Lipid Ord30 CHOL 167 mg/dL 12/30/2017 Lipid Ord30 HDL 63.0 mg/dl 12/30/2017 Lipid Ord30 TRIG 89 mg/dL 12/30/2017 Lipid Ord30 LDL 86 mg/dL 12/30/2017 Lipid Ord30 C/HDL 2.7 Ratio 12/30/2017 Urine Culture Ucult Preliminary NO Growth Day 1 04/17/2017 Urine Culture Ucult Complete NO Growth Day 2 04/17/2017 Comp Metabolic Dyw927 NA 143 mEq/L 04/15/2017 Comp Metabolic Zbg907 K 4.6 mEq/L 04/15/2017 Comp Metabolic Xau241 CL 110 mEq/L 04/15/2017 Comp Metabolic Zaz880 CO2 30.0 mEq/L 04/15/2017 Comp Metabolic Hei793 ANION GAP 8 04/15/2017 Comp Metabolic Cce029 GLUCOSE 159 mg/dL 04/15/2017 Comp Metabolic Nfi803 Creat 1.1 mg/dL 04/15/2017 Comp Metabolic Lrp258 eGFR 54 ml/min/1.73m2 04/15/2017 Comp Metabolic Zpp648 BUN 27 mg/dL 04/15/2017 Comp Metabolic Orq009 B/C Ratio 25.7 Ratio 04/15/2017 Comp Metabolic Mde216 CALCIUM 9.4 mg/dL 04/15/2017 Comp Metabolic Dfd808 ALK PHOS 93 U/L 04/15/2017 Comp Metabolic Hpj321 AST(SGOT) 19 U/L 04/15/2017 Comp Metabolic Add716 ALT(SGPT) 18 U/L 04/15/2017 Comp Metabolic Djq692 BILI T 0.6 mg/dL 04/15/2017 Comp Metabolic Ntx695 ALBUMIN 3.9 g/dL 04/15/2017 Comp Metabolic Fvu795 TPRO 6.5 g/dL 04/15/2017 Comp Metabolic Nir218 GLOB 2.6 g/dL 04/15/2017 Comp Metabolic Gcz725 A/G Ratio 1.5 Ratio 04/15/2017 Comp Metabolic Ytv123 Osmo 293 mOsmo 04/15/2017 Tsh Ord6 hTSH II 2.05 uIU/mL 04/15/2017 %Hba1C Qfi157 % HbA1c 62128- 6 6.3 % 04/15/2017 %Hba1C Kry934 Gluc Ave 134 mg/dL 04/15/2017 Cbc With [...] 29.0 pg 04/15/2017 Cbc With Differential Ord2 [place]% 6.9 % 04/15/2017 Cbc With Differential Ord2 [...] 1.58 K/ul 04/15/2017 Cbc With Differential Ord2 [place] ABS# 0.5 K/ul 04/15/2017 Cbc With Differential [...] Ord28 U-Com Culture to follow 04/15/2017 %Hba1C Cus941 % HbA1c 99596- 6 5.8 % 01/07/2017 %Hba1C Xuw333 Gluc Ave 120 mg/dL 01/07/2017 Urine Culture Ucult Preliminary NO Growth Day 1 09/21/2016 Urine Culture Ucult Complete NO Growth Day 2 09/21/2016 %Hba1C Hpi783 % HbA1c 96330- 6 6.0 % 09/17/2016 %Hba1C Vpg790 Gluc Ave 126 mg/dL 09/17/2016 Comp Metabolic Iyc681 NA 140 mEq/L 09/17/2016 Comp Metabolic Oan128 K 4.1 mEq/L 09/17/2016 Comp Metabolic Mhr085 CL 105 mEq/L 09/17/2016 Comp Metabolic Dur590 CO2 29.0 mEq/L 09/17/2016 Comp Metabolic Tzg629 ANION GAP 10 09/17/2016 Comp Metabolic Zce648 GLUCOSE 89 mg/dL 09/17/2016 Comp Metabolic Aaa459 Creat 0.9 mg/dL 09/17/2016 Comp Metabolic Mwi103 eGFR 65 ml/min/1.73m2 09/17/2016 Comp Metabolic Ysd861 BUN 20 mg/dL 09/17/2016 Comp Metabolic Fjo447 B/C Ratio 22.2 Ratio 09/17/2016 Comp Metabolic Llw296 CALCIUM 9.3 mg/dL 09/17/2016 Comp Metabolic Mcx436 ALK PHOS 107 U/L 09/17/2016 Comp Metabolic Zsx633 AST(SGOT) 22 U/L 09/17/2016 Comp Metabolic Uco798 ALT(SGPT) 15 U/L 09/17/2016 Comp Metabolic Hkv833 BILI T 0.7 mg/dL 09/17/2016 Comp Metabolic Qis140 ALBUMIN 4.0 g/dL 09/17/2016 Comp Metabolic Myh738 TPRO 6.8 g/dL 09/17/2016 Comp Metabolic Scq243 GLOB 2.8 g/dL 09/17/2016 Comp Metabolic Dza363 A/G Ratio 1.4 Ratio 09/17/2016 Comp Metabolic Upt550 Osmo 281 mOsmo 09/17/2016 Microalbumin Say300 MicroAlb 44.3 mg/dL 09/17/2016 Tsh Ord6 hTSH [...] 29.0 pg 09/17/2016 Cbc With Differential Ord2 [place]% 8.1 % 09/17/2016 Cbc With Differential Ord2 [...] 1.78 K/ul 09/17/2016 Cbc With Differential Ord2 [place] ABS# 0.6 K/ul 09/17/2016 Cbc With Differential [...] lips 11/17/2016 None Full Exam - General 1995 Ears/Nose/Throat lips/teeth/gingiva Overall: normal dentition 11/17/2016 None [...] CPT-4: J3301 10/12/2018 THER/PROPH/DIAG INJ SC/IM CPT-4: 33140 10/12/2018 PPPS, SUBSEQ VISIT CPT- 4: G0439 09/06/2018 URINALYSIS NONAUTO W/O SCOPE CPT-4: 80592 12/29/2017 PPPS, SUBSEQ VISIT CPT- 4: G0439 03/30/2017 THER/PROPH/DIAG INJ SC/IM CPT-4: 90000 03/16/2017 TRIAMCINOLONE ACET INJ NOS CPT-4: J3301 03/16/2017 THER/PROPH/DIAG INJ SC/IM CPT-4: 84984 03/12/2017 TRIAMCINOLONE ACET INJ NOS CPT-4: J3301 03/12/2017 THER/PROPH/DIAG INJ SC/IM CPT-4: 37864 11/05/2016 TRIAMCINOLONE ACET INJ NOS CPT-4: J3301 11/05/2016 URINALYSIS NONAUTO W/O SCOPE CPT-4: 07134 09/18/2016 Vital Signs Date Vital 10/12/2018 Blood Pressure 1: 142/76 Code: 8480-6 BMI: 30.1 Code: 01067-3 Heart Rate 1: 83 bpm Height: 5'7" SpO2: 98% Weight: 192 lbs 09/06/2018 Blood Pressure 1: 142/ Code: 8480-6 BMI: 30.9 Code: 16992-4 Heart Rate 1: 64 bpm Height: 5'7" SpO2: 98% Waist Measure (cm): 99 cm Weight: 197 lbs 08/16/2018 Blood Pressure 1: 140/70 Code: 8480-6 BMI: 34.4 Code: 01158-6 Heart Rate 1: 63 bpm Height: 5'7" SpO2: 95% Weight: 219 lbs 14 oz 04/12/2018 Blood Pressure 1: 160/70 Code: 8480-6 BMI: 33.0 Code: 15610-7 Heart Rate 1: 82 bpm Height: 5'7" SpO2: 95% Weight: 211 lbs 01/20/2018 Blood Pressure 1: 152/ Code: 8480-6 BMI: 31.8 Code: 06475-6 Heart Rate 1: 52 bpm Height: 5'7" SpO2: 98% Temperature: 36.3 (C) / 97.3 (F) Weight: 203 lbs 12/29/2017 Blood Pressure 1: 168/72 Code: 8480-6 BMI: 32.1 Code: 15546-1 Heart Rate 1: 63 bpm Height: 5'7" SpO2: 98% Weight: 205 lbs 08/24/2017 Blood Pressure 1: 186/70 Code: 8480-6 Blood Pressure 1: 150/70 Code: 8480-6 BMI: 31.8 Code: 87906-9 Heart Rate 1: 53 bpm Height: 5'7" SpO2: 98% Weight: 203 lbs 07/26/2017 Blood Pressure 1: 206/78 Code: 8480-6 Blood Pressure 2: 210/84 Code: 8480-6 BMI: 32.0 Code: 66136-0 Heart Rate 1: 49 bpm Height: 5'7" SpO2: 97% Weight: 204 lbs 07/20/2017 Blood Pressure 1: 148/82 Code: 8480-6 Heart Rate 1: 90 bpm SpO2: 98% 05/27/2017 Blood Pressure 1: 142/72 Code: 8480-6 BMI: 30.5 Code: 11268-0 Heart Rate 1: 97 bpm Height: 5'7" [...] 1: 148/70 Code: 8480-6 BMI: 30.4 Code: 29660-1 Heart Rate 1: 54 bpm Height: 5'7" SpO2: 97% Weight: 194 lbs 03/30/2017 BMI: 33.2 Code: 65552-5 Height: 5'7" Weight: 212 lbs 03/16/2017 Blood Pressure 1: 140/80 Code: 8480-6 BMI: 34.0 Code: 86714-1 Heart Rate 1: 70 bpm Height: 5'7" SpO2: 95% Weight: 217 lbs 03/12/2017 Blood Pressure 1: 142/80 Code: 8480-6 BMI: 34.0 Code: 10117-1 Heart Rate 1: 76 bpm Height: 5'7" SpO2: 92% Weight: 217 lbs 02/17/2017 Blood Pressure 1: 162/64 Code: 8480-6 BMI: 32.9 Code: 78991-7 Heart Rate 1: 59 bpm Height: 5'7" SpO2: 97% Weight: 210 lbs 01/20/2017 Blood Pressure 1: 162/74 Code: 8480-6 BMI: 32.9 Code: 85845-9 Heart Rate 1: 56 bpm Height: 5'7" SpO2: 98% Weight: 210 lbs 11/17/2016 Blood Pressure 1: 156/60 Code: 8480-6 BMI: 34.8 Code: 38580-3 Heart Rate 1: 63 bpm Height: 5'7" SpO2: 96% Weight: 222 lbs 11/05/2016 Blood Pressure 1: 160/68 Code: 8480-6 BMI: 34.5 Code: 24015-6 Heart Rate 1: 66 bpm Height: 5'7" SpO2: 97% Temperature: 36.9 (C) / 98.5 (F) Weight: 220 lbs 09/21/2016 Blood Pressure 1: 180/72 Code: 8480-6 Blood Pressure 1: 166/72 Code: 8480-6 BMI: 32.1 Code: 70587-6 Heart Rate 1: 57 bpm Height: 5'7" SpO2: 98% Weight: 205 lbs 09/16/2016 Blood Pressure 1: 168/70 Code: 8480-6 Heart Rate 1: 49 bpm SpO2: 95% 08/03/2016 Blood Pressure 1: 162/70 Code: 8480-6 BMI: 32.0 Code: 48634-8 Heart Rate 1: 43 bpm Height: 5'7" SpO2: 98% Weight: 204 lbs 07/06/2016 Blood Pressure 1: 170/86 Code: 8480-6 BMI: 32.0 Code: 96463-9 Heart Rate 1: 48 bpm Height: 5'7" [...] data Encounters Encounter Performer Location Codes Date [id number] EST. PATIENT, LEVEL IV Diagnosis: Other acute sinusitis[ICD10: J01.80] Diagnosis: Other allergic rhinitis[ICD10: J30.89] Krysta Camejo MD, [facility] CPT- 4: 02939 10/12/2018 ([id number]) 30256 EST. PATIENT, LEVEL IV Diagnosis: Essential (primary) hypertension[ICD10: I10] Diagnosis: Type 2 diabetes mellitus without complications[ICD10: E11.9] Diagnosis: Mixed hyperlipidemia[ICD10: E78.2] Fifi Caemjo MD, [facility] CPT- 4: 91886 08/16/2018 ([id number]) 06280 EST. PATIENT, LEVEL IV Diagnosis: Type 2 diabetes mellitus without complications[ICD10: E11.9] Diagnosis: Mixed hyperlipidemia[ICD10: E78.2] Diagnosis: Essential (primary) hypertension[ICD10: I10] Diagnosis: Dysuria[ICD10: R30.0] Diagnosis: Pain in left foot[ICD10: M79.672] Fifi Camejo MD, [facility] CPT- 4: 40028 04/12/2018 ([id number]) 89615 EST. PATIENT, LEVEL III Diagnosis: Otalgia, bilateral[ICD10: H92.03] Diagnosis: Other allergic rhinitis[ICD10: J30.89] Yuridia Camejo MD, [facility] CPT-4: 53854 01/20/2018 ([id number]) 47695 EST. PATIENT, LEVEL IV Diagnosis: Type 2 diabetes mellitus without complications[ICD10: E11.9] Diagnosis: Mixed hyperlipidemia[ICD10: E78.2] Diagnosis: Essential (primary) hypertension[ICD10: I10] Diagnosis: Dysuria[ICD10: R30.0] Fifi Camejo MD, [facility] CPT-4: 84178 12/29/2017 ([id number]) 42757 EST. PATIENT, LEVEL IV Diagnosis: Essential (primary) hypertension[ICD10: I10] Diagnosis: Cysts of left upper eyelid[ICD10: H02.824] Diagnosis: Pain in left foot[ICD10: M79.672] Fifi Camejo MD [facility] CPT- 4: 24740 08/24/2017 ([id number]) 32571 EST. PATIENT, LEVEL III Diagnosis: Essential (primary) hypertension[ICD10: I10] Fifi Camejo MD [facility] CPT-4: 75249 07/26/2017 ([id number]) Miscellaneous no charge Diagnosis: Essential (primary) hypertension[ICD10: I10] Fifi Camejo MD [facility] CPT-4: 67324 07/20/2017 09078 EST. PATIENT, LEVEL III Diagnosis: Otalgia, bilateral[ICD10: H92.03] Diagnosis: Dizziness and giddiness[ICD10: R42] Diagnosis: Mixed hyperlipidemia[ICD10: E78.2] Krysta Camejo MD, [facility] CPT-4: 11340 05/27/2017 ([id number]) Miscellaneous no charge Diagnosis: Essential (primary) hypertension[ICD10: I10] Krysta Camejo MD, [facility] CPT-4: 06779 05/07/2017 ([id number]) 79478 EST. PATIENT, LEVEL IV Diagnosis: Otalgia, bilateral[ICD10: H92.03] Diagnosis: Dizziness and giddiness[ICD10: R42] Diagnosis: Orthostatic hypotension[ICD10: I95.1] Fifi Camejo MD, [facility] CPT-4: 34043 05/03/2017 30098 EST. PATIENT, LEVEL IV Diagnosis: Essential (primary) hypertension[ICD10: I10] Diagnosis: Type 2 diabetes mellitus without complications[ICD10: E11.9] Diagnosis: Gastro-esophageal reflux disease without esophagitis[ICD10: K21.9] Diagnosis: Dizziness and giddiness[ICD10: R42] Diagnosis: Dysuria[ICD10: R30.0] Diagnosis: Other malaise[ICD10: R53.81] Krysta Camejo MD, [facility] CPT-4: 04960 04/15/2017 ([id number]) 75009 EST. PATIENT, LEVEL IV Diagnosis: Type 2 diabetes mellitus without complications[ICD10: E11.9] Diagnosis: Otalgia, bilateral[ICD10: H92.03] Diagnosis: Essential (primary) hypertension[ICD10: I10] Diagnosis: Other allergic rhinitis[ICD10: J30.89] Fifi Camejo MD [facility] CPT-4: 74320 03/16/2017 [id number] EST. PATIENT, LEVEL IV Diagnosis: Other acute sinusitis[ICD10: J01.80] Diagnosis: Acute suppurative otitis media without spontaneous rupture of ear drum, bilateral[ICD10: H66.003] Diagnosis: Other allergic rhinitis[ICD10: J30.89] Krysta Camejo MD, [facility] CPT- 4: 10581 03/12/2017 ([id number]) 25226 EST. PATIENT, LEVEL IV Diagnosis: Essential (primary) hypertension[ICD10: I10] Diagnosis: Type 2 diabetes mellitus without complications[ICD10: E11.9] Fifi Camejo MD [facility] CPT-4: 99073 02/17/2017 ([id number]) 11824 EST. PATIENT, LEVEL IV Diagnosis: Essential (primary) hypertension[ICD10: I10] Diagnosis: Type 2 diabetes mellitus without complications[ICD10: E11.9] Fifi Camejo MD [facility] CPT-4: 74398 01/20/2017 ([id number]) 23186 EST. PATIENT, LEVEL IV Diagnosis: Essential (primary) hypertension[ICD10: I10] Diagnosis: Type 2 diabetes mellitus without complications[ICD10: E11.9] Diagnosis: Gastro-esophageal reflux disease without esophagitis[ICD10: K21.9] Fifi Camejo MD, [facility] CPT-4: 58586 11/17/2016 ([id number]) 19384 EST. PATIENT, LEVEL III Diagnosis: Acute bronchitis due to other specified organisms[ICD10: J20.8] Diagnosis: Cough[ICD10: R05] Fifi Camejo MD [facility] CPT-4: 55602 11/05/2016 ([id number]) 65762 EST. PATIENT, LEVEL IV Diagnosis: Essential (primary) hypertension[ICD10: I10] Diagnosis: Type 2 diabetes mellitus without complications[ICD10: E11.9] Fifi Camejo MD, [facility] CPT-4: 54280 09/21/2016 ([id number]) Miscellaneous no charge Diagnosis: Essential (primary) hypertension[ICD10: I10] [facility] CPT-4: 16929 09/16/2016 ([id number]) 60272 EST. PATIENT, LEVEL III Diagnosis: Type 2 diabetes mellitus without complications[ICD10: E11.9] Diagnosis: Essential (primary) hypertension[ICD10: I10] Fifi Camejo MD, [facility] CPT-4: 75523 08/03/2016 ([id number]) OFFICE VISIT, NEW - LEVEL 4 Diagnosis: Essential (primary) hypertension[ICD10: I10] Diagnosis: Type 2 diabetes mellitus without complications[ICD10: E11.9] Diagnosis: Carpal tunnel syndrome, left upper limb[ICD10: G56.02] Diagnosis: Right upper quadrant pain[ICD10: R10.11] Diagnosis: Mixed hyperlipidemia[ICD10: E78.2] Fifi Camejo MD, [facility] CPT- 4: 13871 07/06/2016 Plan of Care Planned Activity Notes Codes Status Date Patient Education: Patient Medication Summary Completed 12/28/2018 Care Plan: Urinalysis Pending 12/28/2018 Care Plan: Urine Culture if needed Pending 12/28/2018 Visit Plan: Sinusitis - Pt has [...] allergy spray. 10/12/2018 Appointment: Krysta Dale WPtel: [address] [place], [place] [phone] (30 min) [facility] 10/12/2018 Patient Education: Patient Medication [...] surrogate. 09/06/2018 [facility]ment[facility] [phone] [phone] [facility] - Annual Wellness Visit 09/06/2018 Patient Education: Patient Medication Summary Completed 09/06/2018 App[facility]ment: [facility] [phone] [phone] [facility] - Annual Wellness Visit 08/29/2018 Visit Plan: [...] 08/16/2018 [facility]ment[facility] [phone] [facility] [place] (15 min) Moderate 08/16/2018 Patient Education: Patient [...] the foot. 04/12/2018 Appointment: Fifi Camejo WPtel: [facility] [address] (15 min) Moderate 04/12/2018 Patient Education: Patient Medication Summary Completed 04/12/2018 Care Plan: Referral Order SNOMED-CT : [id number] Pending 04/12/2018 Patient Education: Patient Medication Summary [...] allergy spray. 01/20/2018 Appointment: [facility] [phone] [phone] [place] (15 min) Moderate 01/20/2018 Patient [...] less controlled. 12/29/2017 Appointment: Fifi Camejo WPtel: [address] [place], [place] [id number] (15 min) Moderate 12/29/2017 Patient Education: Patient [...] - recommended referral to Dr. Anders in [place] 08/24/2017 Appointment: [facility] [phone] [phone] (15 min) Moderate 08/24/2017 Patient Education: Patient Medication Summary Completed 08/24/2017 Care Plan: Referral Order SNOMED-CT : [id number] Pending 08/24/2017 Visit Plan: Hypertension - uncontrolled [...] listed above. 07/26/2017 Appointment: [facility] [phone] [phone] (15 min) Moderate 07/26/2017 Patient Education: [...] medications. 05/27/2017 App[facility] [phone] [facility] ([facility] min) Moderate 05/27/2017 Patient Education: Patient Medication Summary Completed 05/27/2017 Appointment: Nurse Visit 05/07/2017 Patient Education: Patient Medication Summary Completed 05/07/2017 Visit Plan: Persistent vergito with bilateral air-fluid levels and ear pain. Pt was seen by Dr. Calvo- she did not like his response to her complaints. I have recommended a referral to ENT in [place] or [place]. I suspect she may need myringotomy tubes. Pt to continue with flonase. Orthostatic hypotension - dc doxazosin. Monitor blood pressures at home. stop the doxazosin meclizine change to 1/2 pill three times a day come back on Wednesday for blood pressure check 05/03/2017 Appointment: Fifi Cmaejo WPtel: [phone] [facility] [address] (15 min) Moderate 05/03/2017 Patient Education: Patient Medication Summary Completed 05/03/2017 Appointment: Fifi Camejo WPtel: [phone] [facility] [address] (15 min) Moderate 04/21/2017 Visit Plan: Hypertension, [...] glucose control. 04/15/2017 Appointment: Krysta Dale WPtel: [address] [place] [phone] (30 min) [facility] 04/15/2017 Patient Education: Patient Medication [...] surrogate. 03/30/2017 Appointment: [facility] [phone] [phone] [facility] - Annual Wellness Visit 03/30/2017 Patient Education: [...] have [facility] March 24 Hypertension - well controlled - continue with current medications, continue with no added salt diet. Pt has been encouraged to exercise daily. The pt has been advised to call the office if there are any acute concerns about change in blood pressure readings at home. 03/16/2017 Appointment: [facility] [phone] [facility] (30 min) Complex 03/16/2017 Patient Education: Patient Medication Summary Completed 03/16/2017 Patient Education: Obesity Completed 03/16/2017 Care Plan: Referral Order SNOMED-CT : [id number] Pending 03/16/2017 Visit Plan: Allergies - chronic [...] worsen. 03/12/2017 Appointment: [facility] [phone] [phone] (15 min) Moderate 03/12/2017 Patient [...] 02/17/2017 App[facility]ment: [facility] [phone] [phone] ([facility] min) Complex 02/17/2017 Patient Education: [...] 01/20/2017 App[facility]ment: [facility] [phone] [phone] (30 min) Complex 01/20/2017 Patient Education: [...] dexilant 11/17/2016 Appointment: [facility] [phone] [phone] (30 min) Complex 11/17/2016 Patient Education: [...] 09/21/2016 Appointment: [facility] [phone] [phone] (15 min) Moderate 09/21/2016 Patient Education: [...] time. 08/03/2016 Appointment: [facility] [phone] [facility] (15 min) Moderate 08/03/2016 Patient Education: [...] 07/06/2016 Appointment: [facility] [phone] [facility] [facility] Patient 07/06/2016 Patient Education: Patient [...] change in plan at this time. . Sinusitis - Pt has acute infection [...] monitor your heart rate Consider referral for security installation sales technician for possible stress test if needed. Call [...] monitor your heart rate Consider referral for security installation sales technician for possible stress test if needed. Call [...] have recommended a referral to ENT in [place] or [place]. I suspect she may need myringotomy tubes. [...] - recommended referral to Dr. Anders in [place]
--- OUTSIDE RECORDS SUMMARY | 2019-03-08 16:53 | XMS REPORT | CCD ---
Author Author Fifi Camejo Organization Fifi Camejo MD, [facility] Address [address] [place] [address] Phone Care Team Providers Care Electronics Recycler Name Role Phone PP Unavailable CCM Unavailable Summary Purpose Interface Exchange Insurance Providers Payer name Policy type / Coverage type Covered constitution party ID Effective Begin Date Effective End Date WPS Medicare Part B Medicare Part B [id number] 2018 Unknown FOR LIFE WPS Medicare Part B [id number] Unknown Family history Father Diagnosis Age At Onset Cancer Unknown Brother Diagnosis Age At Onset Diabetes mellitus Type 2 Unknown Heart Attack Unknown Social History Social History Element Codes Description Effective Dates Marital status Unknown Wu 11/05/2016 Number of children Unknown 1 07/06/2016 Employment Unknown Retired 07/06/[address]: 859187797 Never smoker 07/06/[address]: 087691068 Never drinks alcohol 07/06/2016 Allergies, Adverse Reactions, Alerts Substance Reaction Codes Entered Date Inactivated Date Status Protonix hives RxNorm: 455530 09/06/2018 No Inactive Date Active IV DYE, IODINE CONTAINING emesis, emesis Unknown 04/28/2018 No Inactive Date Active MORPHINE AND RELATED Unknown 04/28/2018 No Inactive Date Active Penicillin Unknown 07/06/2016 No Inactive Date Active Past Medical History Illness Codes Condition Status Onset Date Resolved Date Other acute sinusitis ICD- 9: 461.8 ICD-10: [...] ICD-9: V76.10 ICD-10: Z12.31 Active 07/18/2018 Unknown Dysuria ICD-9: 788.1 ICD-10: R30.0 Active 09/17/2016 Unknown Pain in left foot ICD-9: 729.5 [...] Problems Condition Codes Effective Dates Condition Status Other acute sinusitis ICD- 9: 461.8 ICD-10: [...] breast ICD-9: V76.10 ICD-10: Z12.31 07/18/2018 Active Dysuria ICD-9: 788.1 ICD-10: R30.0 09/17/2016 Active Pain in left foot ICD-9: 729.5 [...] Instructions metoprolol tartrate 50 mg tablet RxNorm: 144891 1/2 TABLET(S) PO BID 12/02/2018 No Stop Date Active amlodipine 10 mg tablet RxNorm: 728873 TAKE 1 TABLET DAILY 10/24/2018 No Stop Date Active cefdinir 300 mg capsule RxNorm: 301937 1 Capsule(s) PO BID 10/19/2018 10/22/2018 Inactive Zithromax Z-Juan 250 mg tablet RxNorm: 803524 1 Tablet(s) PO UD 10/19/2018 10/23/2018 Inactive zpack as directed glimepiride 4 mg tablet RxNorm: 854659 Tablet(s) 1 TABLET(S) PO DAILY 10/12/2018 No Stop Date Active cefdinir 300 mg capsule RxNorm: 860817 1 Capsule(s) PO BID 10/12/2018 10/18/2018 Inactive Zithromax Z-Juan 250 mg tablet RxNorm: 508004 1 Tablet(s) PO UD 10/12/2018 10/16/2018 Inactive zpack as directed Tessalon Perles 100 mg capsule RxNorm: 691675 2 Capsule(s) PO TID as needed cough 10/12/2018 10/16/2018 Inactive Kenalog 40 mg/mL suspension for injection RxNorm: 0606620 1 Milliliter(s) Inj 10/12/2018 10/12/2018 Inactive Zithromax Z-Juan 250 mg tablet RxNorm: 555322 1 Tablet(s) PO UD 08/22/2018 08/26/2018 Inactive zpack as directed clonidine HCl 0.1 mg tablet RxNorm: 121751 1 Tablet(s) PO QAM 08/16/2018 08/10/2019 Active losartan 100 mg tablet RxNorm: 166054 1 TABLET(S) PO DAILY FOR HIGH BLOOD PRESSURE 08/12/2018 No Stop Date Active alprazolam 0.5 mg tablet RxNorm: 934849 1 Tablet(s) PO TID as needed anxiety 06/30/2018 12/26/2018 Active fluticasone 50 mcg/actuation nasal spray,suspension RxNorm: 0546287 USE 1 SPRAY NASALLY TWICE A DAY 05/06/2018 No Stop Date Active clonidine HCl 0.1 mg tablet RxNorm: 824425 1 Tablet(s) PO BID 04/14/2018 08/15/2018 Inactive clonidine HCl 0.1 mg tablet RxNorm: 694201 1 Tablet(s) PO TID 04/12/2018 04/13/2018 Inactive Zithromax Z-Juan 250 mg tablet RxNorm: 957301 1 Tablet(s) PO UD 01/20/2018 08/21/2018 Inactive disregard first rx for 1 - patient needs 3 packs-please dispense generic azithromycin Zithromax Z-Juan 250 mg tablet RxNorm: 080538 1 Tablet(s) PO UD 01/20/2018 01/19/2018 Inactive Zithromax Z-Juan 250 mg tablet RxNorm: 013826 1 Tablet(s) PO UD 01/20/2018 01/19/2018 Inactive disregard first rx for 1 - patient needs 3 packs Zithromax Z-Juan 250 mg tablet RxNorm: 913730 1 Tablet(s) PO UD 01/20/2018 01/19/2018 Inactive atorvastatin 10 mg tablet RxNorm: 144905 1 Tablet(s) PO QPM 12/30/2017 12/24/2018 Active atorvastatin 10 mg tablet RxNorm: 089984 1 Tablet(s) PO QPM 12/30/2017 12/29/2017 Inactive clonidine HCl 0.1 mg tablet RxNorm: 224261 1 Tablet(s) PO BID 12/29/2017 04/11/2018 Inactive Lipitor 10 mg tablet RxNorm: 334129 1 Tablet(s) PO QPM 12/29/2017 12/29/2017 Inactive OKAY TO DISPENSE GENERIC metoprolol tartrate 50 mg tablet RxNorm: 063108 1/2 Tablet(s) PO BID 12/29/2017 12/01/2018 Inactive alprazolam 0.5 mg tablet RxNorm: 348348 1 Tablet(s) PO TID as needed anxiety 11/18/2017 05/16/2018 Inactive glimepiride 4 mg tablet RxNorm: 120857 1 TABLET(S) PO DAILY 11/15/2017 10/11/2018 Inactive alprazolam 0.5 mg tablet RxNorm: 485474 1 Tablet(s) PO TID as needed anxiety 09/20/2017 11/17/2017 Inactive Zithromax Z-Juan 250 mg tablet RxNorm: 421775 1 Tablet(s) PO UD 09/20/2017 12/28/2017 Inactive Zithromax Z-Juan 250 mg tablet RxNorm: 857720 1 Tablet(s) PO UD 09/14/2017 09/19/2017 Inactive clonidine HCl 0.1 mg tablet RxNorm: 220164 1/2 Tablet(s) PO BID 08/24/2017 12/28/2017 Inactive amlodipine 10 mg tablet RxNorm: 139975 1 Tablet(s) PO daily 08/24/2017 08/18/2018 Inactive erythromycin 5 mg/gram (0.5 %) eye ointment RxNorm: 015992 1 Gram(s) ophthalmic (eye) QID left eye cyst 08/24/2017 09/06/2017 Inactive losartan 100 mg tablet RxNorm: 402519 1 Tablet(s) PO daily for high blood pressure 08/16/2017 08/10/2018 Inactive metoprolol tartrate 50 mg tablet RxNorm: 182710 1/2 Tablet(s) PO BID 07/26/2017 12/28/2017 Inactive clonidine HCl 0.1 mg tablet RxNorm: 121085 1/2 Tablet(s) PO BID 07/26/2017 08/23/2017 Inactive metoprolol tartrate 50 mg tablet RxNorm: 376562 1 Tablet(s) PO BID 07/21/2017 07/25/2017 Inactive amlodipine 10 mg tablet RxNorm: 386406 1 TABLET(S) PO DAILY 06/29/2017 08/23/2017 Inactive Lipitor 10 mg tablet RxNorm: 672234 1 Tablet(s) PO QPM 05/27/2017 12/28/2017 Inactive OKAY TO DISPENSE GENERIC alprazolam 0.5 mg tablet RxNorm: 287118 1 Tablet(s) PO TID as needed anxiety 05/18/2017 08/15/2017 Inactive hydrochlorothiazide 12.5 mg tablet RxNorm: 051641 1 Tablet(s) PO daily 04/22/2017 05/21/2017 Inactive hydrochlorothiazide 12.5 mg tablet RxNorm: 760013 1 Tablet(s) PO daily 04/22/2017 04/21/2017 Inactive Cipro 500 mg tablet RxNorm: 309347 1 Tablet(s) PO BID 04/16/2017 04/22/2017 Inactive Zofran 4 mg tablet RxNorm: 149450 1 Tablet(s) PO BID as needed nausea and vomitting 04/15/2017 04/19/2017 Inactive Lipitor 10 mg tablet RxNorm: 710848 1 Tablet(s) PO QPM 03/30/2017 05/26/2017 Inactive OKAY TO DISPENSE GENERIC Kenalog 40 mg/mL suspension for injection RxNorm: 6952149 1 Milliliter(s) Inj 03/16/2017 03/16/2017 Inactive doxazosin 4 mg tablet RxNorm: 357629 1.5 Tablet(s) PO BID 03/16/2017 05/02/2017 Inactive prednisone 10 mg tablets in a dose pack RxNorm: 662301 Tablet(s) take dose pack as directed PO take with food 03/16/2017 05/23/2017 Inactive Kenalog 40 mg/mL suspension for injection RxNorm: 1665138 Milliliter(s) Inj 03/12/2017 03/12/2017 Inactive Zithromax Z-Juan 250 mg tablet RxNorm: 021643 1 Tablet(s) PO daily 03/11/2017 03/10/2017 Inactive zpack as directed Zithromax Z-Juan 250 mg tablet RxNorm: 422867 1 Tablet(s) PO daily 03/11/2017 03/15/2017 Inactive zpack as directed doxazosin 4 mg tablet RxNorm: 596279 1.5 Tablet(s) PO BID 02/12/2017 03/15/2017 Inactive fluticasone 50 mcg/actuation nasal spray,suspension RxNorm: 2647621 1 SPRAY NASAL BID 02/05/2017 05/05/2018 Inactive metoprolol tartrate 75 mg tablet RxNorm: 5452753 1 Tablet(s) PO BID 01/29/2017 07/19/2017 Inactive metoprolol tartrate 75 mg tablet RxNorm: 2186303 1 Tablet(s) PO BID 01/29/2017 01/28/2017 Inactive doxazosin 4 mg tablet RxNorm: 150403 1 Tablet(s) PO BID 01/20/2017 02/11/2017 Inactive pantoprazole 40 mg tablet,delayed release RxNorm: 595057 1 Tablet(s) PO daily 12/24/2016 01/19/2017 Inactive pantoprazole 40 mg tablet,delayed release RxNorm: 298036 1 Tablet(s) PO daily 12/24/2016 12/23/2016 Inactive alprazolam 0.5 mg tablet RxNorm: 454675 1 Tablet(s) PO TID as needed anxiety 12/03/2016 04/01/2017 Inactive fluticasone 50 mcg/actuation nasal spray,suspension RxNorm: 3542186 1 Wayan NASAL BID 11/25/2016 12/24/2016 Inactive Dexilant 60 mg capsule, delayed release RxNorm: 368787 1 Capsule(s) PO daily 11/25/2016 11/24/2016 Inactive fluticasone 50 mcg/actuation nasal spray,suspension RxNorm: 0635884 1 Wayan NASAL BID 11/25/2016 11/24/2016 Inactive fluticasone 50 mcg/actuation nasal spray,suspension RxNorm: 7321570 1 Wayan NASAL BID 11/25/2016 11/24/2016 Inactive Dexilant 60 mg capsule, delayed release RxNorm: 941873 1 Capsule(s) PO daily 11/25/2016 12/23/2016 Inactive ProAir RespiClick 90 mcg/actuation breath activated RxNorm: 3833769 1 INH bid and QID as needed 11/19/2016 05/17/2017 Inactive Please send STAT Flonase Allergy Relief 50 mcg/actuation nasal spray,suspension RxNorm: 7694347 1 Wayan NASAL BID 11/19/2016 11/24/2016 Inactive glimepiride 4 mg tablet RxNorm: 889332 1 Tablet(s) PO daily 11/19/2016 11/13/2017 Inactive metoprolol tartrate 50 mg tablet RxNorm: 339241 1 Tablet(s) PO BID 11/19/2016 01/28/2017 Inactive Flonase Allergy Relief 50 mcg/actuation nasal spray,suspension RxNorm: 4489447 1 Wayan NASAL BID 11/17/2016 11/18/2016 Inactive metoprolol tartrate 50 mg tablet RxNorm: 117266 1 Tablet(s) PO BID 11/17/2016 11/18/2016 Inactive ProAir RespiClick 90 mcg/actuation breath activated RxNorm: 6668344 1 INH bid and QID as needed 11/17/2016 11/16/2016 Inactive glimepiride 4 mg tablet RxNorm: 571544 1 Tablet(s) PO daily 11/17/2016 11/18/2016 Inactive ProAir RespiClick 90 mcg/actuation breath activated RxNorm: 8779265 1 INH bid and QID as needed 11/17/2016 11/18/2016 Inactive Please send STAT Kenalog 40 mg/mL suspension for injection RxNorm: 8231195 1 Milliliter(s) Inj 11/05/2016 11/05/2016 Inactive azithromycin 250 mg tablet RxNorm: 644486 Tablet(s) PO 2 tabs on day #1, then daily x 4 days 11/05/2016 12/23/2016 Inactive doxazosin 4 mg tablet RxNorm: 803124 1 Tablet(s) PO QPM 10/02/2016 01/19/2017 Inactive doxazosin 4 mg tablet RxNorm: 545387 1 Tablet(s) PO QPM 09/29/2016 10/01/2016 Inactive doxazosin 4 mg tablet RxNorm: 643125 1 Tablet(s) PO QPM 09/21/2016 09/28/2016 Inactive Cipro 500 mg tablet RxNorm: 204018 1 Tablet(s) PO BID 09/18/2016 09/17/2016 Inactive Cipro 500 mg tablet RxNorm: 268404 1 Tablet(s) PO BID 09/18/2016 09/24/2016 Inactive losartan 100 mg tablet RxNorm: 737586 1 Tablet(s) PO daily for high blood pressure 09/16/2016 09/15/2016 Inactive alprazolam 0.5 mg tablet RxNorm: 053432 1 Tablet(s) PO TID as needed anxiety 09/16/2016 11/14/2016 Inactive losartan 100 mg tablet RxNorm: 051411 1 Tablet(s) PO daily for high blood pressure 09/16/2016 08/15/2017 Inactive amlodipine 10 mg tablet RxNorm: 546243 1 Tablet(s) PO daily 08/03/2016 06/28/2017 Inactive Zyrtec 10 mg tablet RxNorm: 8858907 1 Tablet(s) PO daily 08/03/2016 09/15/2016 Inactive losartan 25 mg tablet RxNorm: 962322 1 Tablet(s) PO daily 07/08/2016 09/15/2016 Inactive Lipitor 10 mg tablet RxNorm: 411836 1 Tablet(s) PO QPM 07/08/2016 07/17/2016 Inactive OKAY TO DISPENSE GENERIC Lipitor 10 mg tablet RxNorm: 075428 1 Tablet(s) PO QPM 07/06/2016 07/07/2016 Inactive OKAY TO DISPENSE GENERIC losartan 25 mg tablet RxNorm: 635090 1 Tablet(s) PO daily 07/06/2016 07/07/2016 Inactive meclizine 25 mg tablet RxNorm: 494230 1 Tablet(s) PO TID as needed No Start Date Active Parafon Forte DSC 500 mg tablet RxNorm: 387718 1 Tablet(s) PO QID No Start Date Active Pazeo 0.7 % eye drops RxNorm: 1908103 Drop(s) ophthalmic (eye) as needed dry eyes No Start Date Active Zithromax Z-Juan 250 mg tablet RxNorm: 838163 1 Tablet(s) PO UD No Start Date 09/13/2017 Inactive glimepiride 4 mg tablet RxNorm: 681509 1 Tablet(s) PO daily No Start Date 11/16/2016 Inactive metoprolol tartrate 100 mg tablet RxNorm: 518853 1 Tablet(s) PO BID No Start Date 07/21/2017 Inactive naproxen 500 mg tablet RxNorm: 349733 1 Tablet(s) PO BID No Start Date 03/23/2017 Inactive amlodipine 5 mg tablet RxNorm: 830499 1 Tablet(s) PO daily No Start Date 08/02/2016 Inactive metoprolol tartrate 50 mg tablet RxNorm: 717221 1 Tablet(s) PO BID No Start Date 11/16/2016 Inactive Medication Administered Medication Codes Instructions Start Date Status Kenalog 40 mg/mL suspension for injection RxNorm: 3923813 1Milliliter 10/12/2018 No longer Active Kenalog 40 mg/mL suspension for injection RxNorm: 2922445 1Milliliter 03/16/2017 No longer Active Kenalog 40 mg/mL suspension for injection RxNorm: 4258989 Milliliter 03/12/2017 No longer Active Kenalog 40 mg/mL suspension for injection RxNorm: 9538563 1Milliliter 11/05/2016 No longer Active Immunizations Vaccine [...] left foot ICD-10: M79.672 ICD-9: 729.5 04/12/2018 Dysuria ICD-10: R30.0 ICD-9: 788.1 04/12/2018 Otalgia, bilateral ICD-10: H92.03 ICD-9: 388.70 [...] Lipid Ord30 C/HDL 3.1 Ratio 08/18/2018 Microalbumin Pev662 MicroAlb 7.5 mg/dL 08/18/2018 Cbc With Differential [...] 29.6 pg 08/18/2018 Cbc With Differential Ord2 Stewart% 10.6 % 08/18/2018 Cbc With Differential Ord2 MCHC 34.1 pg 08/18/2018 Cbc With Differential Ord2 Eos% 4.6 % 08/18/2018 Cbc With Differential Ord2 Baso% 0.5 % 08/18/2018 Cbc With Differential Ord2 PLT 244 K/ul 08/18/2018 Cbc With Differential Ord2 Neut ABS# 3.26 K/ul 08/18/2018 Cbc With Differential Ord2 RDW 13.9 % 08/18/2018 Cbc With Differential Ord2 Lymph ABS# 1.69 K/ul 08/18/2018 Cbc With Differential Ord2 Stewart ABS# 0.6 K/ul 08/18/2018 Cbc With Differential Ord2 Eos ABS# 0.3 K/ul 08/18/2018 Cbc With Differential Ord2 Baso ABS# 0.0 K/ul 08/18/2018 Comp Metabolic Yhr206 NA 137 mEq/L 08/18/2018 Comp Metabolic Ouo194 K 3.8 mEq/L 08/18/2018 Comp Metabolic Esj873 CL 103 mEq/L 08/18/2018 Comp Metabolic Dmq510 CO2 26.0 mEq/L 08/18/2018 Comp Metabolic Tuw368 ANION GAP 12 08/18/2018 Comp Metabolic Jzg040 GLUCOSE 110 mg/dL 08/18/2018 Comp Metabolic Aim366 Creat 1.2 mg/dL 08/18/2018 Comp Metabolic Igx762 eGFR 47 ml/min/1.73m2 08/18/2018 Comp Metabolic Omn375 BUN 25 mg/dL 08/18/2018 Comp Metabolic Nmg507 B/C Ratio 21.0 Ratio 08/18/2018 Comp Metabolic Uyq557 CALCIUM 9.4 mg/dL 08/18/2018 Comp Metabolic Gzm569 ALK PHOS 99 U/L 08/18/2018 Comp Metabolic Qpn617 AST(SGOT) 31 U/L 08/18/2018 Comp Metabolic Khh480 ALT(SGPT) 27 U/L 08/18/2018 Comp Metabolic Jbu691 BILI T 0.7 mg/dL 08/18/2018 Comp Metabolic Gpa133 ALBUMIN 4.2 g/dL 08/18/2018 Comp Metabolic Txw190 TPRO 6.7 g/dL 08/18/2018 Comp Metabolic Lup775 GLOB 2.5 g/dL 08/18/2018 Comp Metabolic Guu911 A/G Ratio 1.7 Ratio 08/18/2018 Comp Metabolic Szp075 Osmo 279 mOsmo 08/18/2018 %Hba1C Zcf275 % HbA1c 22595- 6 6.1 % 08/18/2018 %Hba1C Rjb432 Gluc Ave 128 mg/dL 08/18/2018 Tsh Ord6 TSH (3rd IS) 3.93 uIU/mL 08/18/2018 Lipid Ord30 CHOL 146 mg/dL 04/15/2018 Lipid Ord30 HDL 62.0 mg/dl 04/15/2018 Lipid Ord30 TRIG 88 mg/dL 04/15/2018 Lipid Ord30 LDL 66 mg/dL 04/15/2018 Lipid Ord30 C/HDL 2.4 Ratio 04/15/2018 %Hba1C Ivz176 % HbA1c 44162- 6 6.3 % 04/15/2018 %Hba1C Wku878 Gluc Ave 134 mg/dL 04/15/2018 Cbc With [...] 30.2 pg 04/15/2018 Cbc With Differential Ord2 Stewart% 6.8 % 04/15/2018 Cbc With Differential Ord2 [...] 2.10 K/ul 04/15/2018 Cbc With Differential Ord2 Stewart ABS# 0.5 K/ul 04/15/2018 Cbc With Differential Ord2 Eos ABS# 0.2 K/ul 04/15/2018 Cbc With Differential Ord2 Baso ABS# 0.0 K/ul 04/15/2018 Comp Metabolic Cmq768 NA 140 mEq/L 04/15/2018 Comp Metabolic Zck898 K 4.3 mEq/L 04/15/2018 Comp Metabolic Yno781 CL 106 mEq/L 04/15/2018 Comp Metabolic Rzk873 CO2 23.0 mEq/L 04/15/2018 Comp Metabolic Gav967 ANION GAP 15 04/15/2018 Comp Metabolic Vgb543 GLUCOSE 90 mg/dL 04/15/2018 Comp Metabolic Rht226 Creat 1.2 mg/dL 04/15/2018 Comp Metabolic Jey866 eGFR 45 ml/min/1.73m2 04/15/2018 Comp Metabolic Ohk204 BUN 28 mg/dL 04/15/2018 Comp Metabolic Yev980 B/C Ratio 22.8 Ratio 04/15/2018 Comp Metabolic Pft350 CALCIUM 9.5 mg/dL 04/15/2018 Comp Metabolic Vex234 ALK PHOS 95 U/L 04/15/2018 Comp Metabolic Kce879 AST(SGOT) 20 U/L 04/15/2018 Comp Metabolic Vnz681 ALT(SGPT) 13 U/L 04/15/2018 Comp Metabolic Xwa282 BILI T 0.5 mg/dL 04/15/2018 Comp Metabolic Bfa723 ALBUMIN 4.1 g/dL 04/15/2018 Comp Metabolic Dei716 TPRO 6.6 g/dL 04/15/2018 Comp Metabolic Utn771 GLOB 2.5 g/dL 04/15/2018 Comp Metabolic Mcn827 A/G Ratio 1.6 Ratio 04/15/2018 Comp Metabolic Nll191 Osmo 284 mOsmo 04/15/2018 Comp Metabolic Epn102 NA 137 mEq/L 02/04/2018 Comp Metabolic Zzc568 K 4.0 mEq/L 02/04/2018 Comp Metabolic Jwj832 CL 104 mEq/L 02/04/2018 Comp Metabolic Dcm363 CO2 27.0 mEq/L 02/04/2018 Comp Metabolic Slf037 ANION GAP 10 02/04/2018 Comp Metabolic Cmt570 GLUCOSE 212 mg/dL 02/04/2018 Comp Metabolic Lxz934 Creat 1.2 mg/dL 02/04/2018 Comp Metabolic Xgm343 eGFR 47 ml/min/1.73m2 02/04/2018 Comp Metabolic Uer677 BUN 20 mg/dL 02/04/2018 Comp Metabolic Ujr272 B/C Ratio 16.8 Ratio 02/04/2018 Comp Metabolic Mry198 CALCIUM 8.9 mg/dL 02/04/2018 Comp Metabolic Ulg111 ALK PHOS 107 U/L 02/04/2018 Comp Metabolic Qyj110 AST(SGOT) 17 U/L 02/04/2018 Comp Metabolic Yvs114 ALT(SGPT) 11 U/L 02/04/2018 Comp Metabolic Nbw697 BILI T 0.4 mg/dL 02/04/2018 Comp Metabolic Ovx173 ALBUMIN 3.8 g/dL 02/04/2018 Comp Metabolic Edb051 TPRO 6.2 g/dL 02/04/2018 Comp Metabolic Qge231 GLOB 2.4 g/dL 02/04/2018 Comp Metabolic Lwt339 A/G Ratio 1.6 Ratio 02/04/2018 Comp Metabolic Wdh137 Osmo 283 mOsmo 02/04/2018 %Hba1C Aoe299 % HbA1c 64143- 6 6.3 % 12/30/2017 %Hba1C Wwz029 Gluc Ave 134 mg/dL 12/30/2017 Comp Metabolic Eto037 NA 142 mEq/L 12/30/2017 Comp Metabolic Bfs583 K 4.4 mEq/L 12/30/2017 Comp Metabolic Fqs802 CL 103 mEq/L 12/30/2017 Comp Metabolic Zmh422 CO2 31.0 mEq/L 12/30/2017 Comp Metabolic Rto007 ANION GAP 12 12/30/2017 Comp Metabolic Akl631 GLUCOSE 119 mg/dL 12/30/2017 Comp Metabolic Iqo074 Creat 1.4 mg/dL 12/30/2017 Comp Metabolic Cct420 eGFR 41 ml/min/1.73m2 12/30/2017 Comp Metabolic Ijp066 BUN 27 mg/dL 12/30/2017 Comp Metabolic Qes156 B/C Ratio 20.0 Ratio 12/30/2017 Comp Metabolic Ouu097 CALCIUM 9.9 mg/dL 12/30/2017 Comp Metabolic Cty185 ALK PHOS 106 U/L 12/30/2017 Comp Metabolic Axv114 AST(SGOT) 20 U/L 12/30/2017 Comp Metabolic Gtf492 ALT(SGPT) 13 U/L 12/30/2017 Comp Metabolic Bpc740 BILI T 0.7 mg/dL 12/30/2017 Comp Metabolic Ljn627 ALBUMIN 4.2 g/dL 12/30/2017 Comp Metabolic Udo597 TPRO 6.7 g/dL 12/30/2017 Comp Metabolic Xqw302 GLOB 2.6 g/dL 12/30/2017 Comp Metabolic Qzf156 A/G Ratio 1.6 Ratio 12/30/2017 Comp Metabolic Xtz023 Osmo 289 mOsmo 12/30/2017 Lipid Ord30 CHOL 167 mg/dL 12/30/2017 Lipid Ord30 HDL 63.0 mg/dl 12/30/2017 Lipid Ord30 TRIG 89 mg/dL 12/30/2017 Lipid Ord30 LDL 86 mg/dL 12/30/2017 Lipid Ord30 C/HDL 2.7 Ratio 12/30/2017 Urine Culture Ucult Preliminary NO Growth Day 1 04/17/2017 Urine Culture Ucult Complete NO Growth Day 2 04/17/2017 Comp Metabolic Kyn861 NA 143 mEq/L 04/15/2017 Comp Metabolic Cjf764 K 4.6 mEq/L 04/15/2017 Comp Metabolic Kia820 CL 110 mEq/L 04/15/2017 Comp Metabolic Ord064 CO2 30.0 mEq/L 04/15/2017 Comp Metabolic Jrh904 ANION GAP 8 04/15/2017 Comp Metabolic Emz493 GLUCOSE 159 mg/dL 04/15/2017 Comp Metabolic Fdk122 Creat 1.1 mg/dL 04/15/2017 Comp Metabolic Lmz077 eGFR 54 ml/min/1.73m2 04/15/2017 Comp Metabolic Tao747 BUN 27 mg/dL 04/15/2017 Comp Metabolic Owx324 B/C Ratio 25.7 Ratio 04/15/2017 Comp Metabolic Vgb114 CALCIUM 9.4 mg/dL 04/15/2017 Comp Metabolic Mkz022 ALK PHOS 93 U/L 04/15/2017 Comp Metabolic Fep588 AST(SGOT) 19 U/L 04/15/2017 Comp Metabolic Iwd582 ALT(SGPT) 18 U/L 04/15/2017 Comp Metabolic Jbh901 BILI T 0.6 mg/dL 04/15/2017 Comp Metabolic Brd870 ALBUMIN 3.9 g/dL 04/15/2017 Comp Metabolic Mwy609 TPRO 6.5 g/dL 04/15/2017 Comp Metabolic Ipu872 GLOB 2.6 g/dL 04/15/2017 Comp Metabolic Jcu711 A/G Ratio 1.5 Ratio 04/15/2017 Comp Metabolic Eew453 Osmo 293 mOsmo 04/15/2017 Tsh Ord6 hTSH II 2.05 uIU/mL 04/15/2017 %Hba1C Pon027 % HbA1c 57803- 6 6.3 % 04/15/2017 %Hba1C Phd879 Gluc Ave 134 mg/dL 04/15/2017 Cbc With [...] 22.4 % 04/15/2017 Cbc With Differential Ord2 Stewart% 6.9 % 04/15/2017 Cbc With Differential Ord2 MCH 29.0 pg 04/15/2017 Cbc With Differential Ord2 Eos% 2.1 % 04/15/2017 Cbc With Differential Ord2 MCHC 33.5 pg 04/15/2017 Cbc With Differential Ord2 Baso% 0.1 % 04/15/2017 Cbc With Differential Ord2 PLT 218 K/ul 04/15/2017 Cbc With Differential Ord2 Neut ABS# 4.83 K/ul 04/15/2017 Cbc With Differential Ord2 RDW 14.4 % 04/15/2017 Cbc With Differential Ord2 Lymph ABS# 1.58 K/ul 04/15/2017 Cbc With Differential Ord2 Stewart ABS# 0.5 K/ul 04/15/2017 Cbc With Differential [...] Ord28 U-Com Culture to follow 04/15/2017 %Hba1C Ddb890 % HbA1c 14205- 6 5.8 % 01/07/2017 %Hba1C Jyj041 Gluc Ave 120 mg/dL 01/07/2017 Urine Culture Ucult Preliminary NO Growth Day 1 09/21/2016 Urine Culture Ucult Complete NO Growth Day 2 09/21/2016 %Hba1C Npz028 % HbA1c 70986- 6 6.0 % 09/17/2016 %Hba1C Bkr071 Gluc Ave 126 mg/dL 09/17/2016 Comp Metabolic Vuz270 NA 140 mEq/L 09/17/2016 Comp Metabolic Gxg495 K 4.1 mEq/L 09/17/2016 Comp Metabolic Guv474 CL 105 mEq/L 09/17/2016 Comp Metabolic Ubc154 CO2 29.0 mEq/L 09/17/2016 Comp Metabolic Kja105 ANION GAP 10 09/17/2016 Comp Metabolic Pnf421 GLUCOSE 89 mg/dL 09/17/2016 Comp Metabolic Wyi779 Creat 0.9 mg/dL 09/17/2016 Comp Metabolic Dzi407 eGFR 65 ml/min/1.73m2 09/17/2016 Comp Metabolic Tau356 BUN 20 mg/dL 09/17/2016 Comp Metabolic Mgo538 B/C Ratio 22.2 Ratio 09/17/2016 Comp Metabolic Ofo378 CALCIUM 9.3 mg/dL 09/17/2016 Comp Metabolic Nqq425 ALK PHOS 107 U/L 09/17/2016 Comp Metabolic Vyc465 AST(SGOT) 22 U/L 09/17/2016 Comp Metabolic Esr939 ALT(SGPT) 15 U/L 09/17/2016 Comp Metabolic Naj027 BILI T 0.7 mg/dL 09/17/2016 Comp Metabolic Tve270 ALBUMIN 4.0 g/dL 09/17/2016 Comp Metabolic Aso767 TPRO 6.8 g/dL 09/17/2016 Comp Metabolic Fjv326 GLOB 2.8 g/dL 09/17/2016 Comp Metabolic Cuj002 A/G Ratio 1.4 Ratio 09/17/2016 Comp Metabolic Pxl418 Osmo 281 mOsmo 09/17/2016 Microalbumin Jid278 MicroAlb 44.3 mg/dL 09/17/2016 Tsh Ord6 hTSH II 4.66 uIU/mL 09/17/2016 Cbc With Differential Ord2 WBC 6.95 K/ul 09/17/2016 Cbc With Differential Ord2 RBC 4.65 M/ul 09/17/2016 Cbc With Differential Ord2 HGB 13.5 g/dl 09/17/2016 Cbc With Differential Ord2 Neut% 62.4 % 09/17/2016 Cbc With Differential Ord2 HCT 40.5 % 09/17/2016 Cbc With Differential Ord2 MCV 87.1 fl 09/17/2016 Cbc With Differential Ord2 Lymph% 25.6 % 09/17/2016 Cbc With Differential Ord2 Stewart% 8.1 % 09/17/2016 Cbc With Differential Ord2 MCH 29.0 pg 09/17/2016 Cbc With Differential Ord2 Eos% 3.5 % 09/17/2016 Cbc With Differential Ord2 MCHC 33.3 pg 09/17/2016 Cbc With Differential Ord2 PLT 242 K/ul 09/17/2016 Cbc With Differential Ord2 Baso% 0.4 % 09/17/2016 Cbc With Differential Ord2 Neut ABS# 4.34 K/ul 09/17/2016 Cbc With Differential Ord2 RDW 13.4 % 09/17/2016 Cbc With Differential Ord2 Lymph ABS# 1.78 K/ul 09/17/2016 Cbc With Differential Ord2 Stewart ABS# 0.6 K/ul 09/17/2016 Cbc With Differential [...] CPT-4: J3301 10/12/2018 THER/PROPH/DIAG INJ SC/IM CPT-4: 68515 10/12/2018 PPPS, SUBSEQ VISIT CPT- 4: G0439 09/06/2018 URINALYSIS NONAUTO W/O SCOPE CPT-4: 20470 12/29/2017 PPPS, SUBSEQ VISIT CPT- 4: G0439 03/30/2017 THER/PROPH/DIAG INJ SC/IM CPT-4: 75005 03/16/2017 TRIAMCINOLONE ACET INJ NOS CPT-4: J3301 03/16/2017 THER/PROPH/DIAG INJ SC/IM CPT-4: 06873 03/12/2017 TRIAMCINOLONE ACET INJ NOS CPT-4: J3301 03/12/2017 THER/PROPH/DIAG INJ SC/IM CPT-4: 26257 11/05/2016 TRIAMCINOLONE ACET INJ NOS CPT-4: J3301 11/05/2016 URINALYSIS NONAUTO W/O SCOPE CPT-4: 20652 09/18/2016 Vital Signs Date Vital 10/12/2018 Blood Pressure 1: 142/76 Code: 8480-6 BMI: 30.1 Code: 72361-7 Heart Rate 1: 83 bpm Height: 5'7" SpO2: 98% Weight: 192 lbs 09/06/2018 Blood Pressure 1: 142/ Code: 8480-6 BMI: 30.9 Code: 49798-2 Heart Rate 1: 64 bpm Height: 5'7" SpO2: 98% Waist Measure (cm): 99 cm Weight: 197 lbs 08/16/2018 Blood Pressure 1: 140/70 Code: 8480-6 BMI: 34.4 Code: 48714-6 Heart Rate 1: 63 bpm Height: 5'7" SpO2: 95% Weight: 219 lbs 14 oz 04/12/2018 Blood Pressure 1: 160/70 Code: 8480-6 BMI: 33.0 Code: 62351-4 Heart Rate 1: 82 bpm Height: 5'7" SpO2: 95% Weight: 211 lbs 01/20/2018 Blood Pressure 1: 152/ Code: 8480-6 BMI: 31.8 Code: 41810-8 Heart Rate 1: 52 bpm Height: 5'7" SpO2: 98% Temperature: 36.3 (C) / 97.3 (F) Weight: 203 lbs 12/29/2017 Blood Pressure 1: 168/72 Code: 8480-6 BMI: 32.1 Code: 96034-0 Heart Rate 1: 63 bpm Height: 5'7" SpO2: 98% Weight: 205 lbs 08/24/2017 Blood Pressure 1: 150/70 Code: 8480-6 Blood Pressure 1: 186/70 Code: 8480-6 BMI: 31.8 Code: 27454-8 Heart Rate 1: 53 bpm Height: 5'7" SpO2: 98% Weight: 203 lbs 07/26/2017 Blood Pressure 1: 206/78 Code: 8480-6 Blood Pressure 2: 210/84 Code: 8480-6 BMI: 32.0 Code: 10536-3 Heart Rate 1: 49 bpm Height: 5'7" SpO2: 97% Weight: 204 lbs 07/20/2017 Blood Pressure 1: 148/82 Code: 8480-6 Heart Rate 1: 90 bpm SpO2: 98% 05/27/2017 Blood Pressure 1: 142/72 Code: 8480-6 BMI: 30.5 Code: 80837-6 Heart Rate 1: 97 bpm Height: 5'7" SpO2: 98% Weight: 195 lbs 05/07/2017 Blood Pressure 1: 156/84 Code: 8480-6 Heart Rate 1: 90 bpm SpO2: 98% 05/03/2017 Blood Pressure 1: 100/68 Code: 8480-6 Blood Pressure 1: 140/70 Code: 8480-6 Blood Pressure 2: 138/70 Code: 8480-6 Heart Rate 1: 80 bpm Heart Rate 1: 122 bpm Height: SpO2: 96% Weight: 04/15/2017 Blood Pressure 1: 148/70 Code: 8480-6 BMI: 30.4 Code: 86870-9 Heart Rate 1: 54 bpm Height: 5'7" SpO2: 97% Weight: 194 lbs 03/30/2017 BMI: 33.2 Code: 17626-7 Height: 5'7" Weight: 212 lbs 03/16/2017 Blood Pressure 1: 140/80 Code: 8480-6 BMI: 34.0 Code: 24563-6 Heart Rate 1: 70 bpm Height: 5'7" SpO2: 95% Weight: 217 lbs 03/12/2017 Blood Pressure 1: 142/80 Code: 8480-6 BMI: 34.0 Code: 11477-3 Heart Rate 1: 76 bpm Height: 5'7" SpO2: 92% Weight: 217 lbs 02/17/2017 Blood Pressure 1: 162/64 Code: 8480-6 BMI: 32.9 Code: 70706-6 Heart Rate 1: 59 bpm Height: 5'7" SpO2: 97% Weight: 210 lbs 01/20/2017 Blood Pressure 1: 162/74 Code: 8480-6 BMI: 32.9 Code: 87769-5 Heart Rate 1: 56 bpm Height: 5'7" SpO2: 98% Weight: 210 lbs 11/17/2016 Blood Pressure 1: 156/60 Code: 8480-6 BMI: 34.8 Code: 72695-0 Heart Rate 1: 63 bpm Height: 5'7" SpO2: 96% Weight: 222 lbs 11/05/2016 Blood Pressure 1: 160/68 Code: 8480-6 BMI: 34.5 Code: 14072-5 Heart Rate 1: 66 bpm Height: 5'7" SpO2: 97% Temperature: 36.9 (C) / 98.5 (F) Weight: 220 lbs 09/21/2016 Blood Pressure 1: 166/72 Code: 8480-6 Blood Pressure 1: 180/72 Code: 8480-6 BMI: 32.1 Code: 99414-6 Heart Rate 1: 57 bpm Height: 5'7" SpO2: 98% Weight: 205 lbs 09/16/2016 Blood Pressure 1: 168/70 Code: 8480-6 Heart Rate 1: 49 bpm SpO2: 95% 08/03/2016 Blood Pressure 1: 162/70 Code: 8480-6 BMI: 32.0 Code: 13516-3 Heart Rate 1: 43 bpm Height: 5'7" SpO2: 98% Weight: 204 lbs 07/06/2016 Blood Pressure 1: 170/86 Code: 8480-6 BMI: 32.0 Code: 12600-4 Heart Rate 1: 48 bpm Height: 5'7" [...] data Encounters Encounter Performer Location Codes Date 37755 EST. PATIENT, LEVEL IV Diagnosis: Other acute sinusitis[ICD10: J01.80] Diagnosis: Other allergic rhinitis[ICD10: J30.89] Krysta Camejo MD, [facility] CPT- 4: 54621 10/12/2018 ([id number]) 16225 EST. PATIENT, LEVEL IV Diagnosis: Essential (primary) hypertension[ICD10: I10] Diagnosis: Type 2 diabetes mellitus without complications[ICD10: E11.9] Diagnosis: Mixed hyperlipidemia[ICD10: E78.2] Fifi Camejo MD, [facility] CPT- 4: 44398 08/16/2018 ([id number]) 71236 EST. PATIENT, LEVEL IV Diagnosis: Type 2 diabetes mellitus without complications[ICD10: E11.9] Diagnosis: Mixed hyperlipidemia[ICD10: E78.2] Diagnosis: Essential (primary) hypertension[ICD10: I10] Diagnosis: Dysuria[ICD10: R30.0] Diagnosis: Pain in left foot[ICD10: M79.672] Fifi Camejo MD, [facility] CPT- 4: 87028 04/12/2018 ([id number]) 38325 EST. PATIENT, LEVEL III Diagnosis: Otalgia, bilateral[ICD10: H92.03] Diagnosis: Other allergic rhinitis[ICD10: J30.89] Yuridia Camejo MD, [facility] CPT-4: 58247 01/20/2018 ([id number]) 60397 EST. PATIENT, LEVEL IV Diagnosis: Type 2 diabetes mellitus without complications[ICD10: E11.9] Diagnosis: Mixed hyperlipidemia[ICD10: E78.2] Diagnosis: Essential (primary) hypertension[ICD10: I10] Diagnosis: Dysuria[ICD10: R30.0] Fifi Camejo MD, [facility] CPT-4: 21787 12/29/2017 ([id number]) 31837 EST. PATIENT, LEVEL IV Diagnosis: Essential (primary) hypertension[ICD10: I10] Diagnosis: Cysts of left upper eyelid[ICD10: H02.824] Diagnosis: Pain in left foot[ICD10: M79.672] Fifi Camejo MD [facility] CPT- 4: 76186 08/24/2017 ([id number]) 16554 EST. PATIENT, LEVEL III Diagnosis: Essential (primary) hypertension[ICD10: I10] Fifi Camejo MD [facility] CPT-4: 07541 07/26/2017 ([id number]) Miscellaneous no charge Diagnosis: Essential (primary) hypertension[ICD10: I10] Fifi Camejo MD [facility] CPT-4: 25676 07/20/2017 55719 EST. PATIENT, LEVEL III Diagnosis: Otalgia, bilateral[ICD10: H92.03] Diagnosis: Dizziness and giddiness[ICD10: R42] Diagnosis: Mixed hyperlipidemia[ICD10: E78.2] Krysta Camejo MD, [facility] CPT-4: 64266 05/27/2017 ([id number]) Miscellaneous no charge Diagnosis: Essential (primary) hypertension[ICD10: I10] Krysta Camejo MD, [facility] CPT-4: 19958 05/07/2017 ([id number]) 36965 EST. PATIENT, LEVEL IV Diagnosis: Otalgia, bilateral[ICD10: H92.03] Diagnosis: Dizziness and giddiness[ICD10: R42] Diagnosis: Orthostatic hypotension[ICD10: I95.1] Fifi Camejo MD, [facility] CPT-4: 12900 05/03/2017 63551 EST. PATIENT, LEVEL IV Diagnosis: Essential (primary) hypertension[ICD10: I10] Diagnosis: Type 2 diabetes mellitus without complications[ICD10: E11.9] Diagnosis: Gastro-esophageal reflux disease without esophagitis[ICD10: K21.9] Diagnosis: Dizziness and giddiness[ICD10: R42] Diagnosis: Dysuria[ICD10: R30.0] Diagnosis: Other malaise[ICD10: R53.81] Krysta Camejo MD, [facility] CPT-4: 50934 04/15/2017 ([id number]) 56260 EST. PATIENT, LEVEL IV Diagnosis: Type 2 diabetes mellitus without complications[ICD10: E11.9] Diagnosis: Otalgia, bilateral[ICD10: H92.03] Diagnosis: Essential (primary) hypertension[ICD10: I10] Diagnosis: Other allergic rhinitis[ICD10: J30.89] Fifi Camejo MD [facility] CPT-4: 28464 03/16/2017 60401 EST. PATIENT, LEVEL IV Diagnosis: Other acute sinusitis[ICD10: J01.80] Diagnosis: Acute suppurative otitis media without spontaneous rupture of ear drum, bilateral[ICD10: H66.003] Diagnosis: Other allergic rhinitis[ICD10: J30.89] Krysta Camejo MD, [facility] CPT- 4: 30660 03/12/2017 ([id number]) 22704 EST. PATIENT, LEVEL IV Diagnosis: Essential (primary) hypertension[ICD10: I10] Diagnosis: Type 2 diabetes mellitus without complications[ICD10: E11.9] Fifi Camejo MD [facility] CPT-4: 51657 02/17/2017 ([id number]) 08259 EST. PATIENT, LEVEL IV Diagnosis: Essential (primary) hypertension[ICD10: I10] Diagnosis: Type 2 diabetes mellitus without complications[ICD10: E11.9] Fifi Camejo MD [facility] CPT-4: 85662 01/20/2017 ([id number]) 61081 EST. PATIENT, LEVEL IV Diagnosis: Essential (primary) hypertension[ICD10: I10] Diagnosis: Type 2 diabetes mellitus without complications[ICD10: E11.9] Diagnosis: Gastro-esophageal reflux disease without esophagitis[ICD10: K21.9] Fifi Camejo MD, [facility] CPT-4: 41529 11/17/2016 ([id number]) 61089 EST. PATIENT, LEVEL III Diagnosis: Acute bronchitis due to other specified organisms[ICD10: J20.8] Diagnosis: Cough[ICD10: R05] Fifi Camejo MD [facility] CPT-4: 29344 11/05/2016 ([id number]) 22172 EST. PATIENT, LEVEL IV Diagnosis: Essential (primary) hypertension[ICD10: I10] Diagnosis: Type 2 diabetes mellitus without complications[ICD10: E11.9] Fifi Camejo MD, [facility] CPT-4: 95775 09/21/2016 ([id number]) Miscellaneous no charge Diagnosis: Essential (primary) hypertension[ICD10: I10] [facility] CPT-4: 52177 09/16/2016 ([id number]) 81145 EST. PATIENT, LEVEL III Diagnosis: Type 2 diabetes mellitus without complications[ICD10: E11.9] Diagnosis: Essential (primary) hypertension[ICD10: I10] Fifi Camejo MD, [facility] CPT-4: 11568 08/03/2016 ([id number]) OFFICE VISIT, NEW - LEVEL 4 Diagnosis: Essential (primary) hypertension[ICD10: I10] Diagnosis: Type 2 diabetes mellitus without complications[ICD10: E11.9] Diagnosis: Carpal tunnel syndrome, left upper limb[ICD10: G56.02] Diagnosis: Right upper quadrant pain[ICD10: R10.11] Diagnosis: Mixed hyperlipidemia[ICD10: E78.2] Fifi Camejo MD, [facility] CPT- 4: 47357 07/06/2016 Plan of Care Planned Activity Notes Codes Status Date Visit Plan: Sinusitis - Pt has acute [...] allergy spray. 10/12/2018 Appointment: Krysta Dale WPtel: [address] [place], [place] [phone] (30 min) [facility] 10/12/2018 Patient Education: Patient Medication Summary [...] surrogate. 09/06/2018 Appointment: Yuridia Walsh WPtel: [phone] [phone] [facility] - Annual Wellness Visit 09/06/2018 Patient Education: Patient Medication Summary Completed 09/06/2018 Appointment: Yuridia Walsh WPtel: [phone] [phone] [facility] - Annual Wellness Visit 08/29/2018 Visit [...] dications. 08/16/2018 Appointment: Fifi Camejo WPtel: [phone] [facility] (15 min) Moderate 08/16/2018 Patient Education: Patient [...] foot. 04/12/2018 Appointment: Fifi Camejo WPtel: [phone] [facility] (15 min) Moderate 04/12/2018 Patient Education: Patient Medication Summary Completed 04/12/2018 Care Plan: Referral Order SNOMED-CT : [id number] Pending 04/12/2018 Patient Education: Patient Medication Summary [...] spray. 01/20/2018 Appointment: [phone] [phone] (15 min) Moderate 01/20/2018 Patient Education: Patient [...] controlled. 12/29/2017 App[facility]ment[phone] ([facility] min) Moderate 12/29/2017 Patient Education: Patient [...] - recommended referral to Dr. Chago davis Singh 08/24/2017 Appointment: [facility] Camejo [facility] [phone] [facility] [place] (15 min) Moderate 08/24/2017 Patient Education: Patient Medication Summary Completed 08/24/2017 Care Plan: Referral Order SNOMED-CT : [id number] Pending 08/24/2017 Visit Plan: Hypertension - uncontrolled [...] above. 07/26/2017 Appointment: [phone] [facility] (15 min) Moderate 07/26/2017 Patient Education: Patient [...] medications. 05/27/2017 Appointment: [facility]ryst[facility] Dale [facility]el[facility] [phone] [facility] (15 min) Moderate 05/27/2017 Patient Education: Patient Medication Summary Completed 05/27/2017 Appointment: Nurse Visit 05/07/2017 Patient Education: Patient Medication Summary Completed 05/07/2017 Visit Plan: Persistent vergito with bilateral air-fluid levels and ear pain. Pt was seen by Dr. Calvo- she did not like his response to her complaints. I have recommended a referral to ENT in [place] or [place]. I suspect she may need myringotomy tubes. Pt to continue with flonase. Orthostatic hypotension - dc doxazosin. Monitor blood pressures at home. stop the doxazosin meclizine change to 1/2 pill three times a day come back on Wednesday for blood pressure check 05/03/2017 Appointment: Fifi Camejo WPtel: [phone] [facility] (15 min) Moderate 05/03/2017 Patient Education: Patient Medication Summary Completed 05/03/2017 Appointment: Fifi Camejo WPtel: [phone] [facility] (15 min) Moderate 04/21/2017 Visit Plan: Hypertension, [...] greater blood glucose control. 04/15/2017 Appointment: Krysta Daletel: [facility] (30 min) Complex 04/15/2017 Patient Education: Patient [...] for health care surrogate. 03/30/2017 Appointment: Krysta Dale: [phone] [facility] [facility] - Annual Wellness Visit 03/30/2017 Patient [...] pt [facility] 24 Hypertension - well controlled - continue with current medications, continue with no added salt diet. Pt has been encouraged to exercise daily. The pt has been advised to call the office if there are any acute concerns about change in blood pressure readings at home. 03/16/2017 Appointment: [facility] Camejo [facility]el[phone] [facility] (30 min) Complex 03/16/2017 Patient Education: Patient Medication Summary Completed 03/16/2017 Patient Education: Obesity Completed 03/16/2017 Care Plan: Referral Order SNOMED-CT : [id number] Pending 03/16/2017 Visit Plan: Allergies - chronic [...] worsen. 03/12/2017 Appointment: Krysta Dale WPtel: [phone] [facility] (15 min) Moderate 03/12/2017 Patient Education: Patient [...] controlled. 02/17/2017 Appointment: Fifi Camejo [facility]el: [phone] [facility] (30 min) Complex 02/17/2017 Patient Education: Patient [...] controlled. 01/20/2017 Appointment: Fifi Camejo WPtel: [phone] [facility] (30 min) Complex 01/20/2017 Patient Education: Patient [...] dexilant 11/17/2016 Appointment: Fifi Camejo [facility]el[facility] [phone] [facility] (30 min) Complex 11/17/2016 Patient Education: Patient [...] range. 09/21/2016 Appointment: Fifi Camejo [facility]Ptel: [phone] [facility] (15 min) Moderate 09/21/2016 Patient Education: Patient [...] in plan at this time. 08/03/2016 Appointment: [place] [phone] (15 min) Moderate 08/03/2016 Patient Education: Patient [...] improving. 07/06/2016 Appointment: Fifi Camejo [facility]el[phone] [facility] New Patient 07/06/2016 Patient Education: Patient Medication Summary Completed 07/06/2016 Patient Education: Obesity Completed 07/06/2016 Referral: Dr Calvo Referral Completed Referral: Freeman Huff Referral Appointment Requested Referral: External, Ordering Provider Referral Appointment Requested Instructions Comment INCREASE FLONASE TO TWICE DAILY zpack . [...] monitor your heart rate Consider referral for associate director of biostatistics for possible stress test if needed. Call [...] monitor your heart rate Consider referral for associate director of biostatistics for possible stress test if needed. Call [...] shows levels averaging in the 90-110 range. . Diabetes Mellitus - controlled - per [...] readings are starting to become less controlled. increase clonidine to a full pill twice [...] have recommended a referral to ENT in [place] or [place]. I suspect she may need myringotomy tubes. [...] - recommended referral to Dr. Anders in [place] decrease the metoprolol to 1/2 pill twice [...]
--- OUTSIDE RECORDS SUMMARY | 2019-03-08 16:57 | XMS REPORT | CCD ---
Author Author Fifi Camejo Organization Fifi Camejo MD, 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 Name Role Phone PP Unavailable CCM Unavailable Summary Purpose Interface Exchange Insurance Providers Payer name Policy type / Coverage type Covered republican ID Effective Begin Date Effective End Date WPS Medicare Part B Medicare Part B [id number] 2018 Unknown FOR LIFE WPS Medicare Part B [id number] Unknown Family history Father Diagnosis Age At Onset Cancer Unknown Brother Diagnosis Age At Onset Diabetes mellitus Type 2 Unknown Heart Attack Unknown Social History Social History Element Codes Description Effective Dates Marital status Unknown Wu 11/05/2016 Number of children Unknown 1 07/06/2016 Employment Unknown Retired 07/06/[address]: 509521416 Never smoker 07/06/[address]: 981013250 Never drinks alcohol 07/06/2016 Allergies, Adverse Reactions, Alerts Substance Reaction Codes Entered Date Inactivated Date Status Protonix hives RxNorm: 163677 09/06/2018 No Inactive Date Active IV DYE, [...] Start Date Stop Date Status Fill Instructions amlodipine 10 mg tablet RxNorm: 164773 TAKE 1 TABLET DAILY 10/24/2018 No Stop Date Active cefdinir 300 mg capsule RxNorm: 024549 1 Capsule(s) PO BID 10/19/2018 10/22/2018 Inactive Zithromax Z-Juan 250 mg tablet RxNorm: 051293 1 Tablet(s) PO UD 10/19/2018 10/23/2018 Inactive zpack as directed glimepiride 4 mg tablet RxNorm: 219898 Tablet(s) 1 TABLET(S) PO DAILY 10/12/2018 No Stop Date Active cefdinir 300 mg capsule RxNorm: 749198 1 Capsule(s) PO BID 10/12/2018 10/18/2018 Inactive Zithromax Z-Juan 250 mg tablet RxNorm: 041525 1 Tablet(s) PO UD 10/12/2018 10/16/2018 Inactive zpack as directed Tessalon Perles 100 mg capsule RxNorm: 850351 2 Capsule(s) PO TID as needed cough 10/12/2018 10/16/2018 Inactive Kenalog 40 mg/mL suspension for injection RxNorm: 2429359 1 Milliliter(s) Inj 10/12/2018 10/12/2018 Inactive Zithromax Z-Juan 250 mg tablet RxNorm: 707404 1 Tablet(s) PO UD 08/22/2018 08/26/2018 Inactive zpack as directed clonidine HCl 0.1 mg tablet RxNorm: 225397 1 Tablet(s) PO QAM 08/16/2018 08/10/2019 Active losartan 100 mg tablet RxNorm: 528541 1 TABLET(S) PO DAILY FOR HIGH BLOOD PRESSURE 08/12/2018 No Stop Date Active alprazolam 0.5 mg tablet RxNorm: 484591 1 Tablet(s) PO TID as needed anxiety 06/30/2018 12/26/2018 Active fluticasone 50 mcg/actuation nasal spray,suspension RxNorm: 6136831 USE 1 SPRAY NASALLY TWICE A DAY 05/06/2018 No Stop Date Active clonidine HCl 0.1 mg tablet RxNorm: 634761 1 Tablet(s) PO BID 04/14/2018 08/15/2018 Inactive clonidine HCl 0.1 mg tablet RxNorm: 377393 1 Tablet(s) PO TID 04/12/2018 04/13/2018 Inactive Zithromax Z-Juan 250 mg tablet RxNorm: 517857 1 Tablet(s) PO UD 01/20/2018 08/21/2018 Inactive disregard first rx for 1 - patient needs 3 packs-please dispense generic azithromycin Zithromax Z-Juan 250 mg tablet RxNorm: 146426 1 Tablet(s) PO UD 01/20/2018 01/19/2018 Inactive Zithromax Z-Juna 250 mg tablet RxNorm: 541809 1 Tablet(s) PO UD 01/20/2018 01/19/2018 Inactive disregard first rx for 1 - patient needs 3 packs Zithromax Z-Juan 250 mg tablet RxNorm: 677875 1 Tablet(s) PO UD 01/20/2018 01/19/2018 Inactive atorvastatin 10 mg tablet RxNorm: 274109 1 Tablet(s) PO QPM 12/30/2017 12/24/2018 Active atorvastatin 10 mg tablet RxNorm: 129021 1 Tablet(s) PO QPM 12/30/2017 12/29/2017 Inactive metoprolol tartrate 50 mg tablet RxNorm: 547794 1/2 Tablet(s) PO BID 12/29/2017 12/23/2018 Active clonidine HCl 0.1 mg tablet RxNorm: 370526 1 Tablet(s) PO BID 12/29/2017 04/11/2018 Inactive Lipitor 10 mg tablet RxNorm: 597350 1 Tablet(s) PO QPM 12/29/2017 12/29/2017 Inactive OKAY TO DISPENSE GENERIC alprazolam 0.5 mg tablet RxNorm: 589653 1 Tablet(s) PO TID as needed anxiety 11/18/2017 05/16/2018 Inactive glimepiride 4 mg tablet RxNorm: 751377 1 TABLET(S) PO DAILY 11/15/2017 10/11/2018 Inactive alprazolam 0.5 mg tablet RxNorm: 213664 1 Tablet(s) PO TID as needed anxiety 09/20/2017 11/17/2017 Inactive Zithromax Z-Juan 250 mg tablet RxNorm: 223821 1 Tablet(s) PO UD 09/20/2017 12/28/2017 Inactive Zithromax Z-Juan 250 mg tablet RxNorm: 319021 1 Tablet(s) PO UD 09/14/2017 09/19/2017 Inactive clonidine HCl 0.1 mg tablet RxNorm: 626288 1/2 Tablet(s) PO BID 08/24/2017 12/28/2017 Inactive amlodipine 10 mg tablet RxNorm: 184450 1 Tablet(s) PO daily 08/24/2017 08/18/2018 Inactive erythromycin 5 mg/gram (0.5 %) eye ointment RxNorm: 239721 1 Gram(s) ophthalmic (eye) QID left eye cyst 08/24/2017 09/06/2017 Inactive losartan 100 mg tablet RxNorm: 143836 1 Tablet(s) PO daily for high blood pressure 08/16/2017 08/10/2018 Inactive metoprolol tartrate 50 mg tablet RxNorm: 553889 1/2 Tablet(s) PO BID 07/26/2017 12/28/2017 Inactive clonidine HCl 0.1 mg tablet RxNorm: 808116 1/2 Tablet(s) PO BID 07/26/2017 08/23/2017 Inactive metoprolol tartrate 50 mg tablet RxNorm: 935006 1 Tablet(s) PO BID 07/21/2017 07/25/2017 Inactive amlodipine 10 mg tablet RxNorm: 494797 1 TABLET(S) PO DAILY 06/29/2017 08/23/2017 Inactive Lipitor 10 mg tablet RxNorm: 483787 1 Tablet(s) PO QPM 05/27/2017 12/28/2017 Inactive OKAY TO DISPENSE GENERIC alprazolam 0.5 mg tablet RxNorm: 525760 1 Tablet(s) PO TID as needed anxiety 05/18/2017 08/15/2017 Inactive hydrochlorothiazide 12.5 mg tablet RxNorm: 823593 1 Tablet(s) PO daily 04/22/2017 05/21/2017 Inactive hydrochlorothiazide 12.5 mg tablet RxNorm: 631183 1 Tablet(s) PO daily 04/22/2017 04/21/2017 Inactive Cipro 500 mg tablet RxNorm: 925467 1 Tablet(s) PO BID 04/16/2017 04/22/2017 Inactive Zofran 4 mg tablet RxNorm: 341738 1 Tablet(s) PO BID as needed nausea and vomitting 04/15/2017 04/19/2017 Inactive Lipitor 10 mg tablet RxNorm: 341454 1 Tablet(s) PO QPM 03/30/2017 05/26/2017 Inactive OKAY TO DISPENSE GENERIC Kenalog 40 mg/mL suspension for injection RxNorm: 2697436 1 Milliliter(s) Inj 03/16/2017 03/16/2017 Inactive doxazosin 4 mg tablet RxNorm: 887054 1.5 Tablet(s) PO BID 03/16/2017 05/02/2017 Inactive prednisone 10 mg tablets in a dose pack RxNorm: 926481 Tablet(s) take dose pack as directed PO take with food 03/16/2017 05/23/2017 Inactive Kenalog 40 mg/mL suspension for injection RxNorm: 4441407 Milliliter(s) Inj 03/12/2017 03/12/2017 Inactive Zithromax Z-Juan 250 mg tablet RxNorm: 639760 1 Tablet(s) PO daily 03/11/2017 03/10/2017 Inactive zpack as directed Zithromax Z-Juan 250 mg tablet RxNorm: 580078 1 Tablet(s) PO daily 03/11/2017 03/15/2017 Inactive zpack as directed doxazosin 4 mg tablet RxNorm: 791514 1.5 Tablet(s) PO BID 02/12/2017 03/15/2017 Inactive fluticasone 50 mcg/actuation nasal spray,suspension RxNorm: 8224051 1 SPRAY NASAL BID 02/05/2017 05/05/2018 Inactive metoprolol tartrate 75 mg tablet RxNorm: 4588494 1 Tablet(s) PO BID 01/29/2017 07/19/2017 Inactive metoprolol tartrate 75 mg tablet RxNorm: 6927494 1 Tablet(s) PO BID 01/29/2017 01/28/2017 Inactive doxazosin 4 mg tablet RxNorm: 845168 1 Tablet(s) PO BID 01/20/2017 02/11/2017 Inactive pantoprazole 40 mg tablet,delayed release RxNorm: 181759 1 Tablet(s) PO daily 12/24/2016 01/19/2017 Inactive pantoprazole 40 mg tablet,delayed release RxNorm: 088186 1 Tablet(s) PO daily 12/24/2016 12/23/2016 Inactive alprazolam 0.5 mg tablet RxNorm: 939023 1 Tablet(s) PO TID as needed anxiety 12/03/2016 04/01/2017 Inactive fluticasone 50 mcg/actuation nasal spray,suspension RxNorm: 6670316 1 [place] NASAL BID 11/25/2016 12/24/2016 Inactive Dexilant 60 mg capsule, delayed release RxNorm: 206595 1 Capsule(s) PO daily 11/25/2016 11/24/2016 Inactive fluticasone 50 mcg/actuation nasal spray,suspension RxNorm: 6368535 1 [place] NASAL BID 11/25/2016 11/24/2016 Inactive fluticasone 50 mcg/actuation nasal spray,suspension RxNorm: 3660316 1 [place] NASAL BID 11/25/2016 11/24/2016 Inactive Dexilant 60 mg capsule, delayed release RxNorm: 874109 1 Capsule(s) PO daily 11/25/2016 12/23/2016 Inactive ProAir RespiClick 90 mcg/actuation breath activated RxNorm: 8417485 1 INH bid and QID as needed 11/19/2016 05/17/2017 Inactive Please send STAT Flonase Allergy Relief 50 mcg/actuation nasal spray,suspension RxNorm: 5238357 1 [place] NASAL BID 11/19/2016 11/24/2016 Inactive glimepiride 4 mg tablet RxNorm: 311139 1 Tablet(s) PO daily 11/19/2016 11/13/2017 Inactive metoprolol tartrate 50 mg tablet RxNorm: 803898 1 Tablet(s) PO BID 11/19/2016 01/28/2017 Inactive Flonase Allergy Relief 50 mcg/actuation nasal spray,suspension RxNorm: 3668722 1 [place] NASAL BID 11/17/2016 11/18/2016 Inactive metoprolol tartrate 50 mg tablet RxNorm: 106707 1 Tablet(s) PO BID 11/17/2016 11/18/2016 Inactive ProAir RespiClick 90 mcg/actuation breath activated RxNorm: 6613669 1 INH bid and QID as needed 11/17/2016 11/16/2016 Inactive glimepiride 4 mg tablet RxNorm: 968633 1 Tablet(s) PO daily 11/17/2016 11/18/2016 Inactive ProAir RespiClick 90 mcg/actuation breath activated RxNorm: 1290479 1 INH bid and QID as needed 11/17/2016 11/18/2016 Inactive Please send STAT Kenalog 40 mg/mL suspension for injection RxNorm: 4145996 1 Milliliter(s) Inj 11/05/2016 11/05/2016 Inactive azithromycin 250 mg tablet RxNorm: 234695 Tablet(s) PO 2 tabs on day #1, then daily x 4 days 11/05/2016 12/23/2016 Inactive doxazosin 4 mg tablet RxNorm: 893209 1 Tablet(s) PO QPM 10/02/2016 01/19/2017 Inactive doxazosin 4 mg tablet RxNorm: 154385 1 Tablet(s) PO QPM 09/29/2016 10/01/2016 Inactive doxazosin 4 mg tablet RxNorm: 568775 1 Tablet(s) PO QPM 09/21/2016 09/28/2016 Inactive Cipro 500 mg tablet RxNorm: 328121 1 Tablet(s) PO BID 09/18/2016 09/17/2016 Inactive Cipro 500 mg tablet RxNorm: 908997 1 Tablet(s) PO BID 09/18/2016 09/24/2016 Inactive losartan 100 mg tablet RxNorm: 217522 1 Tablet(s) PO daily for high blood pressure 09/16/2016 09/15/2016 Inactive alprazolam 0.5 mg tablet RxNorm: 175627 1 Tablet(s) PO TID as needed anxiety 09/16/2016 11/14/2016 Inactive losartan 100 mg tablet RxNorm: 583379 1 Tablet(s) PO daily for high blood pressure 09/16/2016 08/15/2017 Inactive amlodipine 10 mg tablet RxNorm: 055514 1 Tablet(s) PO daily 08/03/2016 06/28/2017 Inactive Zyrtec 10 mg tablet RxNorm: 0131931 1 Tablet(s) PO daily 08/03/2016 09/15/2016 Inactive losartan 25 mg tablet RxNorm: 010177 1 Tablet(s) PO daily 07/08/2016 09/15/2016 Inactive Lipitor 10 mg tablet RxNorm: 185712 1 Tablet(s) PO QPM 07/08/2016 07/17/2016 Inactive [place] TO DISPENSE GENERIC Lipitor 10 mg tablet RxNorm: 086453 1 Tablet(s) PO QPM 07/06/2016 07/07/2016 Inactive OKAY TO DISPENSE GENERIC losartan 25 mg tablet RxNorm: 596437 1 Tablet(s) PO daily 07/06/2016 07/07/2016 Inactive meclizine 25 mg tablet RxNorm: 139275 1 Tablet(s) PO TID as needed No Start Date Active Parafon Forte DSC 500 mg tablet RxNorm: 170550 1 Tablet(s) PO QID No Start Date Active [place] 0.7 % eye drops RxNorm: 6501003 Drop(s) ophthalmic (eye) as needed dry eyes No Start Date Active Zithromax Z-Juan 250 mg tablet RxNorm: 686943 1 Tablet(s) PO UD No Start Date 09/13/2017 Inactive glimepiride 4 mg tablet RxNorm: 461263 1 Tablet(s) PO daily No Start Date 11/16/2016 Inactive metoprolol tartrate 100 mg tablet RxNorm: 880678 1 Tablet(s) PO BID No Start Date 07/21/2017 Inactive naproxen 500 mg tablet RxNorm: 194957 1 Tablet(s) PO BID No Start Date 03/23/2017 Inactive amlodipine 5 mg tablet RxNorm: 793421 1 Tablet(s) PO daily No Start Date 08/02/2016 Inactive metoprolol tartrate 50 mg tablet RxNorm: 022134 1 Tablet(s) PO BID No Start Date 11/16/2016 Inactive Medication Administered Medication Codes Instructions Start Date Status Kenalog 40 mg/mL suspension for injection RxNorm: 8594558 1Milliliter 10/12/2018 No longer Active Kenalog 40 mg/mL suspension for injection RxNorm: 9597966 1Milliliter 03/16/2017 No longer Active Kenalog 40 mg/mL suspension for injection RxNorm: 4030657 Millil[place] 03/12/2017 No longer Active Kenalog 40 mg/mL suspension for injection RxNorm: 9285384 1Milliliter 11/05/2016 No longer Active Immunizations Vaccine [...] Observation Code Item Item Code Result Date Cbc With Differential Ord2 WBC 5.87 K/ul [...] 29.6 pg 08/18/2018 Cbc With Differential Ord2 [place]% 10.6 % 08/18/2018 Cbc With Differential Ord2 MCHC 34.1 pg 08/18/2018 Cbc With Differential Ord2 Eos% 4.6 % 08/18/2018 Cbc With Differential Ord2 PLT 244 K/ul 08/18/2018 Cbc With Differential Ord2 Baso% 0.5 % 08/18/2018 Cbc With Differential Ord2 Neut ABS# 3.26 K/ul 08/18/2018 Cbc With Differential Ord2 RDW 13.9 % 08/18/2018 Cbc With Differential Ord2 Lymph ABS# 1.69 K/ul 08/18/2018 Cbc With Differential Ord2 [place] ABS# 0.6 K/ul 08/18/2018 Cbc With Differential Ord2 Eos ABS# 0.3 K/ul 08/18/2018 Cbc With Differential Ord2 Baso ABS# 0.0 K/ul 08/18/2018 Tsh Ord6 TSH (3rd IS) 3.93 uIU/mL 08/18/2018 %Hba1C Bkl303 % HbA1c 53631- 6 6.1 % 08/18/2018 %Hba1C Zsx597 Gluc Ave 128 mg/dL 08/18/2018 Comp Metabolic Edq099 NA 137 mEq/L 08/18/2018 Comp Metabolic Rkl554 K 3.8 mEq/L 08/18/2018 Comp Metabolic Eic445 CL 103 mEq/L 08/18/2018 Comp Metabolic Ljd409 CO2 26.0 mEq/L 08/18/2018 Comp Metabolic Tnw802 ANION GAP 12 08/18/2018 Comp Metabolic Vne908 GLUCOSE 110 mg/dL 08/18/2018 Comp Metabolic Avp513 Creat 1.2 mg/dL 08/18/2018 Comp Metabolic Tys385 eGFR 47 ml/min/1.73m2 08/18/2018 Comp Metabolic Axn968 BUN 25 mg/dL 08/18/2018 Comp Metabolic Wrp321 B/C Ratio 21.0 Ratio 08/18/2018 Comp Metabolic Qmz026 CALCIUM 9.4 mg/dL 08/18/2018 Comp Metabolic Bwt758 ALK PHOS 99 U/L 08/18/2018 Comp Metabolic Nrq724 AST(SGOT) 31 U/L 08/18/2018 Comp Metabolic Seu429 ALT(SGPT) 27 U/L 08/18/2018 Comp Metabolic Mhw040 BILI T 0.7 mg/dL 08/18/2018 Comp Metabolic Uwx592 ALBUMIN 4.2 g/dL 08/18/2018 Comp Metabolic Csw672 TPRO 6.7 g/dL 08/18/2018 Comp Metabolic Cut163 GLOB 2.5 g/dL 08/18/2018 Comp Metabolic Uvs927 A/G Ratio 1.7 Ratio 08/18/2018 Comp Metabolic Syd777 Osmo 279 mOsmo 08/18/2018 Microalbumin Uxw302 MicroAlb 7.5 mg/dL 08/18/2018 Lipid Ord30 CHOL 169 mg/dL 08/18/2018 Lipid Ord30 HDL 54.0 mg/dl 08/18/2018 Lipid Ord30 TRIG 91 mg/dL 08/18/2018 Lipid Ord30 LDL 97 mg/dL 08/18/2018 Lipid Ord30 C/HDL 3.1 Ratio 08/18/2018 %Hba1C Cks011 % HbA1c 09961- 6 6.3 % 04/15/2018 %Hba1C Vkf831 Gluc Ave 134 mg/dL 04/15/2018 Cbc With Differential Ord2 WBC 7.34 K/ul 04/15/2018 Cbc With Differential Ord2 RBC 4.40 M/ul 04/15/2018 Cbc With Differential Ord2 HGB 13.3 g/dl 04/15/2018 Cbc With Differential Ord2 Neut% 62.2 % 04/15/2018 Cbc With Differential Ord2 HCT 38.6 % 04/15/2018 Cbc With Differential Ord2 Lymph% 28.6 % 04/15/2018 Cbc With Differential Ord2 MCV 87.7 fl 04/15/2018 Cbc With Differential Ord2 [place]% 6.8 % 04/15/2018 Cbc With Differential Ord2 MCH 30.2 pg 04/15/2018 Cbc With Differential Ord2 MCHC 34.5 pg 04/15/2018 Cbc With Differential Ord2 Eos% 2.3 % 04/15/2018 Cbc With Differential Ord2 Baso% 0.1 % 04/15/2018 Cbc With Differential Ord2 PLT 230 K/ul 04/15/2018 Cbc With Differential Ord2 RDW 12.8 % 04/15/2018 Cbc With Differential Ord2 Neut ABS# 4.56 K/ul 04/15/2018 Cbc With Differential Ord2 Lymph ABS# 2.10 K/ul 04/15/2018 Cbc With Differential Ord2 [place] ABS# 0.5 K/ul 04/15/2018 Cbc With Differential Ord2 Eos ABS# 0.2 K/ul 04/15/2018 Cbc With Differential Ord2 Baso ABS# 0.0 K/ul 04/15/2018 Lipid Ord30 CHOL 146 mg/dL 04/15/2018 Lipid Ord30 HDL 62.0 mg/dl 04/15/2018 Lipid Ord30 TRIG 88 mg/dL 04/15/2018 Lipid Ord30 LDL 66 mg/dL 04/15/2018 Lipid Ord30 C/HDL 2.4 Ratio 04/15/2018 Comp Metabolic Mao933 NA 140 mEq/L 04/15/2018 Comp Metabolic Mwz623 K 4.3 mEq/L 04/15/2018 Comp Metabolic Prl226 CL 106 mEq/L 04/15/2018 Comp Metabolic Jqz583 CO2 23.0 mEq/L 04/15/2018 Comp Metabolic Hmc350 ANION GAP 15 04/15/2018 Comp Metabolic Hup188 GLUCOSE 90 mg/dL 04/15/2018 Comp Metabolic Xwh397 Creat 1.2 mg/dL 04/15/2018 Comp Metabolic Bwa949 eGFR 45 ml/min/1.73m2 04/15/2018 Comp Metabolic Jib838 BUN 28 mg/dL 04/15/2018 Comp Metabolic Iyu777 B/C Ratio 22.8 Ratio 04/15/2018 Comp Metabolic Crd155 CALCIUM 9.5 mg/dL 04/15/2018 Comp Metabolic Cpw213 ALK PHOS 95 U/L 04/15/2018 Comp Metabolic Syy537 AST(SGOT) 20 U/L 04/15/2018 Comp Metabolic Hbt912 ALT(SGPT) 13 U/L 04/15/2018 Comp Metabolic Uja470 BILI T 0.5 mg/dL 04/15/2018 Comp Metabolic Vkj083 ALBUMIN 4.1 g/dL 04/15/2018 Comp Metabolic Twb367 TPRO 6.6 g/dL 04/15/2018 Comp Metabolic Alx909 GLOB 2.5 g/dL 04/15/2018 Comp Metabolic Uja089 A/G Ratio 1.6 Ratio 04/15/2018 Comp Metabolic Xku178 Osmo 284 mOsmo 04/15/2018 Comp Metabolic Cmm792 NA 137 mEq/L 02/04/2018 Comp Metabolic Wmm177 K 4.0 mEq/L 02/04/2018 Comp Metabolic Hrj143 CL 104 mEq/L 02/04/2018 Comp Metabolic Skn248 CO2 27.0 mEq/L 02/04/2018 Comp Metabolic Xed466 ANION GAP 10 02/04/2018 Comp Metabolic Dep815 GLUCOSE 212 mg/dL 02/04/2018 Comp Metabolic Hor625 Creat 1.2 mg/dL 02/04/2018 Comp Metabolic Ani242 eGFR 47 ml/min/1.73m2 02/04/2018 Comp Metabolic Amr976 BUN 20 mg/dL 02/04/2018 Comp Metabolic Cew474 B/C Ratio 16.8 Ratio 02/04/2018 Comp Metabolic Zzd097 CALCIUM 8.9 mg/dL 02/04/2018 Comp Metabolic Pwn714 ALK PHOS 107 U/L 02/04/2018 Comp Metabolic Vxz149 AST(SGOT) 17 U/L 02/04/2018 Comp Metabolic Hsv356 ALT(SGPT) 11 U/L 02/04/2018 Comp Metabolic Tva638 BILI T 0.4 mg/dL 02/04/2018 Comp Metabolic Brb910 ALBUMIN 3.8 g/dL 02/04/2018 Comp Metabolic Agr800 TPRO 6.2 g/dL 02/04/2018 Comp Metabolic Yqn760 GLOB 2.4 g/dL 02/04/2018 Comp Metabolic Lgm848 A/G Ratio 1.6 Ratio 02/04/2018 Comp Metabolic Ynn681 Osmo 283 mOsmo 02/04/2018 %Hba1C Bpp944 % HbA1c 41446- 6 6.3 % 12/30/2017 %Hba1C Kai635 Gluc Ave 134 mg/dL 12/30/2017 Comp Metabolic Cgm052 NA 142 mEq/L 12/30/2017 Comp Metabolic Mjf028 K 4.4 mEq/L 12/30/2017 Comp Metabolic Tuk151 CL 103 mEq/L 12/30/2017 Comp Metabolic Cds453 CO2 31.0 mEq/L 12/30/2017 Comp Metabolic Swz487 ANION GAP 12 12/30/2017 Comp Metabolic Gxi431 GLUCOSE 119 mg/dL 12/30/2017 Comp Metabolic Lds768 Creat 1.4 mg/dL 12/30/2017 Comp Metabolic Ghl753 eGFR 41 ml/min/1.73m2 12/30/2017 Comp Metabolic Jwg406 BUN 27 mg/dL 12/30/2017 Comp Metabolic Wgu661 B/C Ratio 20.0 Ratio 12/30/2017 Comp Metabolic Wfa419 CALCIUM 9.9 mg/dL 12/30/2017 Comp Metabolic Xpp263 ALK PHOS 106 U/L 12/30/2017 Comp Metabolic Fae114 AST(SGOT) 20 U/L 12/30/2017 Comp Metabolic Wgk642 ALT(SGPT) 13 U/L 12/30/2017 Comp Metabolic Iln332 BILI T 0.7 mg/dL 12/30/2017 Comp Metabolic Hpe483 ALBUMIN 4.2 g/dL 12/30/2017 Comp Metabolic Ulw818 TPRO 6.7 g/dL 12/30/2017 Comp Metabolic Xxz001 GLOB 2.6 g/dL 12/30/2017 Comp Metabolic Jud164 A/G Ratio 1.6 Ratio 12/30/2017 Comp Metabolic Ovq821 Osmo 289 mOsmo 12/30/2017 Lipid Ord30 CHOL 167 mg/dL 12/30/2017 Lipid Ord30 HDL 63.0 mg/dl 12/30/2017 Lipid Ord30 TRIG 89 mg/dL 12/30/2017 Lipid Ord30 LDL 86 mg/dL 12/30/2017 Lipid Ord30 C/HDL 2.7 Ratio 12/30/2017 Urine Culture Ucult Preliminary NO Growth Day 1 04/17/2017 Urine Culture Ucult Complete NO Growth Day 2 04/17/2017 Tsh Ord6 hTSH II 2.05 uIU/mL 04/15/2017 Comp Metabolic Oqw015 NA 143 mEq/L 04/15/2017 Comp Metabolic Ofi849 K 4.6 mEq/L 04/15/2017 Comp Metabolic Mrk487 CL 110 mEq/L 04/15/2017 Comp Metabolic Hob252 CO2 30.0 mEq/L 04/15/2017 Comp Metabolic Xqg453 ANION GAP 8 04/15/2017 Comp Metabolic Hfh075 GLUCOSE 159 mg/dL 04/15/2017 Comp Metabolic Kse201 Creat 1.1 mg/dL 04/15/2017 Comp Metabolic Law032 eGFR 54 ml/min/1.73m2 04/15/2017 Comp Metabolic Oxr548 BUN 27 mg/dL 04/15/2017 Comp Metabolic Ltk162 B/C Ratio 25.7 Ratio 04/15/2017 Comp Metabolic Lpz883 CALCIUM 9.4 mg/dL 04/15/2017 Comp Metabolic Erf918 ALK PHOS 93 U/L 04/15/2017 Comp Metabolic Zfa923 AST(SGOT) 19 U/L 04/15/2017 Comp Metabolic Ajg967 ALT(SGPT) 18 U/L 04/15/2017 Comp Metabolic Nuu018 BILI T 0.6 mg/dL 04/15/2017 Comp Metabolic Drw291 ALBUMIN 3.9 g/dL 04/15/2017 Comp Metabolic Voi365 TPRO 6.5 g/dL 04/15/2017 Comp Metabolic Ebn787 GLOB 2.6 g/dL 04/15/2017 Comp Metabolic Bli738 A/G Ratio 1.5 Ratio 04/15/2017 Comp Metabolic Vsp426 Osmo 293 mOsmo 04/15/2017 %Hba1C Hnp480 % HbA1c 85643- 6 6.3 % 04/15/2017 %Hba1C Pmn196 Gluc Ave 134 mg/dL 04/15/2017 Cbc With Differential Ord2 WBC 7.06 K/ul 04/15/2017 Cbc With Differential Ord2 RBC 4.86 M/ul 04/15/2017 Cbc With Differential Ord2 HGB 14.1 g/dl 04/15/2017 Cbc With Differential Ord2 HCT 42.1 % 04/15/2017 Cbc With Differential Ord2 Neut% 68.5 % 04/15/2017 Cbc With Differential Ord2 Lymph% 22.4 % 04/15/2017 Cbc With Differential Ord2 MCV 86.6 fl 04/15/2017 Cbc With Differential Ord2 MCH 29.0 pg 04/15/2017 Cbc With Differential Ord2 [place]% 6.9 % 04/15/2017 Cbc With Differential Ord2 [...] 1.58 K/ul 04/15/2017 Cbc With Differential Ord2 [place] ABS# 0.5 K/ul 04/15/2017 Cbc With Differential [...] Ord28 U-Com Culture to follow 04/15/2017 %Hba1C Tgy567 % HbA1c 44399- 6 5.8 % 01/07/2017 %Hba1C Shw102 Gluc Ave 120 mg/dL 01/07/2017 Urine Culture Ucult Preliminary NO Growth Day 1 09/21/2016 Urine Culture Ucult Complete NO Growth Day 2 09/21/2016 %Hba1C Vaj551 % HbA1c 62161- 6 6.0 % 09/17/2016 %Hba1C Pml672 Gluc Ave 126 mg/dL 09/17/2016 Comp Metabolic Nbf121 NA 140 mEq/L 09/17/2016 Comp Metabolic Vww841 K 4.1 mEq/L 09/17/2016 Comp Metabolic Abp637 CL 105 mEq/L 09/17/2016 Comp Metabolic Bbr015 CO2 29.0 mEq/L 09/17/2016 Comp Metabolic Qms873 ANION GAP 10 09/17/2016 Comp Metabolic Vat724 GLUCOSE 89 mg/dL 09/17/2016 Comp Metabolic Knv324 Creat 0.9 mg/dL 09/17/2016 Comp Metabolic Gzu429 eGFR 65 ml/min/1.73m2 09/17/2016 Comp Metabolic Hyc483 BUN 20 mg/dL 09/17/2016 Comp Metabolic Epx388 B/C Ratio 22.2 Ratio 09/17/2016 Comp Metabolic Zhn936 CALCIUM 9.3 mg/dL 09/17/2016 Comp Metabolic Ljw088 ALK PHOS 107 U/L 09/17/2016 Comp Metabolic Kgu333 AST(SGOT) 22 U/L 09/17/2016 Comp Metabolic Ood115 ALT(SGPT) 15 U/L 09/17/2016 Comp Metabolic Hiy059 BILI T 0.7 mg/dL 09/17/2016 Comp Metabolic Fcu802 ALBUMIN 4.0 g/dL 09/17/2016 Comp Metabolic Wkl568 TPRO 6.8 g/dL 09/17/2016 Comp Metabolic Qlc699 GLOB 2.8 g/dL 09/17/2016 Comp Metabolic Nxy323 A/G Ratio 1.4 Ratio 09/17/2016 Comp Metabolic Uwh914 Osmo 281 mOsmo 09/17/2016 Microalbumin Dgg969 MicroAlb 44.3 mg/dL 09/17/2016 Tsh Ord6 hTSH [...] 29.0 pg 09/17/2016 Cbc With Differential Ord2 [place]% 8.1 % 09/17/2016 Cbc With Differential Ord2 [...] 1.78 K/ul 09/17/2016 Cbc With Differential Ord2 [place] ABS# 0.6 K/ul 09/17/2016 Cbc With Differential [...] clear 08/16/2018 None Full Exam - General 1995 Ears/Nose/Throat [...] CPT-4: J3301 10/12/2018 THER/PROPH/DIAG INJ SC/IM CPT-4: 30470 10/12/2018 PPPS, SUBSEQ VISIT CPT- 4: G0439 09/06/2018 URINALYSIS NONAUTO W/O SCOPE CPT-4: 80010 12/29/2017 PPPS, SUBSEQ VISIT CPT- 4: G0439 03/30/2017 THER/PROPH/DIAG INJ SC/IM CPT-4: 55443 03/16/2017 TRIAMCINOLONE ACET INJ NOS CPT-4: J3301 03/16/2017 THER/PROPH/DIAG INJ SC/IM CPT-4: 46434 03/12/2017 TRIAMCINOLONE ACET INJ NOS CPT-4: J3301 03/12/2017 THER/PROPH/DIAG INJ SC/IM CPT-4: 71633 11/05/2016 TRIAMCINOLONE ACET INJ NOS CPT-4: J3301 11/05/2016 URINALYSIS NONAUTO W/O SCOPE CPT-4: 24198 09/18/2016 Vital Signs Date Vital 10/12/2018 Blood Pressure 1: 142/76 Code: 8480-6 BMI: 30.1 Code: 30666-1 Heart Rate 1: 83 bpm Height: 5'7" SpO2: 98% Weight: 192 lbs 09/06/2018 Blood Pressure 1: 142/66 Code: 8480-6 BMI: 30.9 Code: 05238-8 Heart Rate 1: 64 bpm Height: 5'7" SpO2: 98% Waist Measure (cm): 99 cm Weight: 197 lbs 08/16/2018 Blood Pressure 1: 140/70 Code: 8480-6 BMI: 34.4 Code: 68102-1 Heart Rate 1: 63 bpm Height: 5'7" SpO2: 95% Weight: 219 lbs 14 oz 04/12/2018 Blood Pressure 1: 160/70 Code: 8480-6 BMI: 33.0 Code: 08134-7 Heart Rate 1: 82 bpm Height: 5'7" SpO2: 95% Weight: 211 lbs 01/20/2018 Blood Pressure 1: 152/66 Code: 8480-6 BMI: 31.8 Code: 04879-6 Heart Rate 1: 52 bpm Height: 5'7" SpO2: 98% Temperature: 36.3 (C) / 97.3 (F) Weight: 203 lbs 12/29/2017 Blood Pressure 1: 168/72 Code: 8480-6 BMI: 32.1 Code: 26684-2 Heart Rate 1: 63 bpm Height: 5'7" SpO2: 98% Weight: 205 lbs 08/24/2017 Blood Pressure 1: 186/70 Code: 8480-6 Blood Pressure 1: 150/70 Code: 8480-6 BMI: 31.8 Code: 14386-7 Heart Rate 1: 53 bpm Height: 5'7" SpO2: 98% Weight: 203 lbs 07/26/2017 Blood Pressure 1: 206/78 Code: 8480-6 Blood Pressure 2: 210/84 Code: 8480-6 BMI: 32.0 Code: 06197-3 Heart Rate 1: 49 bpm Height: 5'7" SpO2: 97% Weight: 204 lbs 07/20/2017 Blood Pressure 1: 148/82 Code: 8480-6 Heart Rate 1: 90 bpm SpO2: 98% 05/27/2017 Blood Pressure 1: 142/72 Code: 8480-6 BMI: 30.5 Code: 56358-0 Heart Rate 1: 97 bpm Height: 5'7" [...] 1: 148/70 Code: 8480-6 BMI: 30.4 Code: 30923-7 Heart Rate 1: 54 bpm Height: 5'7" SpO2: 97% Weight: 194 lbs 03/30/2017 BMI: 33.2 Code: 60549-7 Height: 5'7" Weight: 212 lbs 03/16/2017 Blood Pressure 1: 140/80 Code: 8480-6 BMI: 34.0 Code: 31101-7 Heart Rate 1: 70 bpm Height: 5'7" SpO2: 95% Weight: 217 lbs 03/12/2017 Blood Pressure 1: 142/80 Code: 8480-6 BMI: 34.0 Code: 65053-8 Heart Rate 1: 76 bpm Height: 5'7" SpO2: 92% Weight: 217 lbs 02/17/2017 Blood Pressure 1: 162/64 Code: 8480-6 BMI: 32.9 Code: 86583-4 Heart Rate 1: 59 bpm Height: 5'7" SpO2: 97% Weight: 210 lbs 01/20/2017 Blood Pressure 1: 162/74 Code: 8480-6 BMI: 32.9 Code: 27999-1 Heart Rate 1: 56 bpm Height: 5'7" SpO2: 98% Weight: 210 lbs 11/17/2016 Blood Pressure 1: 156/60 Code: 8480-6 BMI: 34.8 Code: 83752-1 Heart Rate 1: 63 bpm Height: 5'7" SpO2: 96% Weight: 222 lbs 11/05/2016 Blood Pressure 1: 160/68 Code: 8480-6 BMI: 34.5 Code: 15813-5 Heart Rate 1: 66 bpm Height: 5'7" SpO2: 97% Temperature: 36.9 (C) / 98.5 (F) Weight: 220 lbs 09/21/2016 Blood Pressure 1: 180/72 Code: 8480-6 Blood Pressure 1: 166/72 Code: 8480-6 BMI: 32.1 Code: 51892-3 Heart Rate 1: 57 bpm Height: 5'7" SpO2: 98% Weight: 205 lbs 09/16/2016 Blood Pressure 1: 168/70 Code: 8480-6 Heart Rate 1: 49 bpm SpO2: 95% 08/03/2016 Blood Pressure 1: 162/70 Code: 8480-6 BMI: 32.0 Code: 04166-9 Heart Rate 1: 43 bpm Height: 5'7" SpO2: 98% Weight: 204 lbs 07/06/2016 Blood Pressure 1: 170/86 Code: 8480-6 BMI: 32.0 Code: 05830-8 Heart Rate 1: 48 bpm Height: 5'7" [...] allergic rhinitis[ICD10: J30.89] Krysta Camejo MD, [facility] CPT- 4: 45665 10/12/2018 [id number]) 96199 EST. PATIENT, LEVEL IV Diagnosis: Essential (primary) hypertension[ICD10: I10] Diagnosis: Type 2 diabetes mellitus without complications[ICD10: E11.9] Diagnosis: Mixed hyperlipidemia[ICD10: E78.2] Fifi Camejo MD, [facility] CPT- 4: 77123 08/16/2018 [id number]) 19856 EST. PATIENT, LEVEL IV Diagnosis: Type 2 diabetes mellitus without complications[ICD10: E11.9] Diagnosis: Mixed hyperlipidemia[ICD10: E78.2] Diagnosis: Essential (primary) hypertension[ICD10: I10] Diagnosis: Dysuria[ICD10: R30.0] Diagnosis: Pain in left foot[ICD10: M79.672] Fifi Camejo MD, [facility] CPT- 4: 98165 04/12/2018 ([id number]) 79440 EST. PATIENT, LEVEL III Diagnosis: Otalgia, bilateral[ICD10: H92.03] Diagnosis: Other allergic rhinitis[ICD10: J30.89] Yuridia Camejo MD, [facility] CPT-4: 63248 01/20/2018 [id number]) 02998 EST. PATIENT, LEVEL IV Diagnosis: Type 2 diabetes mellitus without complications[ICD10: E11.9] Diagnosis: Mixed hyperlipidemia[ICD10: E78.2] Diagnosis: Essential (primary) hypertension[ICD10: I10] Diagnosis: Dysuria[ICD10: R30.0] Fifi Camejo MD, [facility] CPT-4: 67455 12/29/2017 [id number]) 18948 EST. PATIENT, LEVEL IV Diagnosis: Essential (primary) hypertension[ICD10: I10] Diagnosis: Cysts of left upper eyelid[ICD10: H02.824] Diagnosis: Pain in left foot[ICD10: M79.672] Fifi Camejo MD, [facility] CPT- 4: 22823 08/24/2017 ([id number]) 49430 EST. PATIENT, LEVEL III Diagnosis: Essential (primary) hypertension[ICD10: I10] Fifi Camejo MD, [facility] CPT-4: 02167 07/26/2017 ([id number]) Miscellaneous no charge Diagnosis: Essential (primary) hypertension[ICD10: I10] Fifi Camejo MD, [facility] CPT-4: 37781 07/20/2017 98635 EST. PATIENT, LEVEL III Diagnosis: Otalgia, bilateral[ICD10: H92.03] Diagnosis: Dizziness and giddiness[ICD10: R42] Diagnosis: Mixed hyperlipidemia[ICD10: E78.2] Krysta Camejo MD, [facility] CPT-4: 32345 05/27/2017 ([id number]) Miscellaneous no charge Diagnosis: Essential (primary) hypertension[ICD10: I10] Krysta Camejo MD, [facility] CPT-4: 74721 05/07/2017 ([id number]) 05136 EST. PATIENT, LEVEL IV Diagnosis: Otalgia, bilateral[ICD10: H92.03] Diagnosis: Dizziness and giddiness[ICD10: R42] Diagnosis: Orthostatic hypotension[ICD10: I95.1] Fifi Camejo MD, [facility] CPT-4: 49689 05/03/2017 72552 EST. PATIENT, LEVEL IV Diagnosis: Essential (primary) hypertension[ICD10: I10] Diagnosis: Type 2 diabetes mellitus without complications[ICD10: E11.9] Diagnosis: Gastro-esophageal reflux disease without esophagitis[ICD10: K21.9] Diagnosis: Dizziness and giddiness[ICD10: R42] Diagnosis: Dysuria[ICD10: R30.0] Diagnosis: Other malaise[ICD10: R53.81] Krysta Camejo MD, [facility] CPT-4: 25159 04/15/2017 ([id number]) 32720 EST. PATIENT, LEVEL IV Diagnosis: Type 2 diabetes mellitus without complications[ICD10: E11.9] Diagnosis: Otalgia, bilateral[ICD10: H92.03] Diagnosis: Essential (primary) hypertension[ICD10: I10] Diagnosis: Other allergic rhinitis[ICD10: J30.89] Fifi Camejo MD [facility] CPT-4: 42137 03/16/2017 27826 EST. PATIENT, LEVEL IV Diagnosis: Other acute sinusitis[ICD10: J01.80] Diagnosis: Acute suppurative otitis media without spontaneous rupture of ear drum, bilateral[ICD10: H66.003] Diagnosis: Other allergic rhinitis[ICD10: J30.89] Krysta Camejo MD [facility] CPT- 4: 59612 03/12/2017 ([id number]) 20710 EST. PATIENT, LEVEL IV Diagnosis: Essential (primary) hypertension[ICD10: I10] Diagnosis: Type 2 diabetes mellitus without complications[ICD10: E11.9] Fifi Camejo MD [facility] CPT-4: 14543 02/17/2017 ([id number]) 52345 EST. PATIENT, LEVEL IV Diagnosis: Essential (primary) hypertension[ICD10: I10] Diagnosis: Type 2 diabetes mellitus without complications[ICD10: E11.9] Fifi Camejo MD [facility] CPT-4: 27648 01/20/2017 ([id number]) 15690 EST. PATIENT, LEVEL IV Diagnosis: Essential (primary) hypertension[ICD10: I10] Diagnosis: Type 2 diabetes mellitus without complications[ICD10: E11.9] Diagnosis: Gastro-esophageal reflux disease without esophagitis[ICD10: K21.9] Fifi Camejo MD [facility] CPT-4: 00615 11/17/2016 ([id number]) 83725 EST. PATIENT, LEVEL III Diagnosis: Acute bronchitis due to other specified organisms[ICD10: J20.8] Diagnosis: Cough[ICD10: R05] Fifi Camejo MD [facility] CPT-4: 99818 11/05/2016 ([id number]) 36200 EST. PATIENT, LEVEL IV Diagnosis: Essential (primary) hypertension[ICD10: I10] Diagnosis: Type 2 diabetes mellitus without complications[ICD10: E11.9] Fifi Camejo MD [facility] CPT-4: 37619 09/21/2016 ([id number]) Miscellaneous no charge Diagnosis: Essential (primary) hypertension[ICD10: I10] [facility] CPT-4: 32661 09/16/2016 ([id number]) 61699 EST. PATIENT, LEVEL III Diagnosis: Type 2 diabetes mellitus without complications[ICD10: E11.9] Diagnosis: Essential (primary) hypertension[ICD10: I10] [facility] CPT-4: 18064 08/03/2016 ([id number]) OFFICE VISIT, NEW - LEVEL 4 Diagnosis: Essential (primary) hypertension[ICD10: I10] Diagnosis: Type 2 diabetes mellitus without complications[ICD10: E11.9] Diagnosis: Carpal tunnel syndrome, left upper limb[ICD10: G56.02] Diagnosis: Right upper quadrant pain[ICD10: R10.11] Diagnosis: Mixed hyperlipidemia[ICD10: E78.2] [facility] CPT- 4: 47096 07/06/2016 Plan of Care Planned Activity Notes [...] allergy spray. 10/12/2018 Appointment: Krysta Dale WPtel: [address] [place], [place] [id number] (30 min) [facility] 10/12/2018 Patient Education: Patient Medication Summary [...] Yuridia Walsh WPtel: [phone] [phone] [facility] - Annual Wellness Visit 09/06/2018 Patient Education: Patient Medication Summary Completed 09/06/2018 Appointment: Yuridia Walsh WPtel: [phone] [phone] [facility] - Annual Wellness Visit 08/29/2018 [...] dications. 08/16/2018 App[facility]ment[phone] [facility] ([facility] min) Moderate 08/16/2018 Patient Education: [...] foot. 04/12/2018 Appointment: [facility] [phone] [facility] (15 min) Moderate 04/12/2018 Patient Education: Patient Medication Summary Completed 04/12/2018 Care Plan: Referral Order SNOMED-CT : [id number] Pending 04/12/2018 Patient Education: Patient Medication Summary [...] spray. 01/20/2018 App[facility]ment[facility] [phone] [phone] [place] (15 min) Moderate 01/20/2018 Patient Education: [...] less controlled. 12/29/2017 Appointment: Fifi Camejo WPtel: [facility] (15 min) Moderate 12/29/2017 Patient [...] Singh 08/24/2017 Appointment: [facility]el[facility] [phone] [facility] [place] (15 min) Moderate 08/24/2017 Patient Education: Patient Medication Summary Completed 08/24/2017 Care Plan: Referral Order SNOMED-CT : [id number] Pending 08/24/2017 Visit Plan: Hypertension - uncontrolled [...] above. 07/26/2017 Appointment: [facility]el[facility] [phone] [facility] (15 min) Moderate 07/26/2017 Patient Education: [...] medications. 05/27/2017 Appointment: [facility] [phone] [facility] (15 min) Moderate 05/27/2017 Patient Education: Patient Medication Summary Completed 05/27/2017 Appointment: Nurse Visit 05/07/2017 Patient Education: Patient Medication Summary Completed 05/07/2017 Visit Plan: Persistent vergito with bilateral air-fluid levels and ear pain. Pt was seen by Dr. Calvo- she did not like his response to her complaints. I have recommended a referral to ENT in [place] or [place]. I suspect she may need myringotomy tubes. Pt to continue with flonase. Orthostatic hypotension - dc doxazosin. Monitor blood pressures at home. stop the doxazosin meclizine change to 1/2 pill three times a day come back on Wednesday for blood pressure check 05/03/2017 Appointment: Fifi Camejo WPtel: [phone] [facility] (15 min) Moderate 05/03/2017 Patient Education: Patient Medication Summary Completed 05/03/2017 Appointment: [facility]jo [facility]Ptel[facility] [phone] [facility] [place] (15 min) Moderate 04/21/2017 Visit Plan: [...] control. 04/15/2017 Appointment: [facility] [phone] [facility] (30 min) Complex 04/15/2017 Patient Education: Patient [...] care surrogate. 03/30/2017 Appointment: [facility]el[facility] [phone] [facility] [facility] - Annual Wellness Visit 03/30/2017 [...] [facility] 24 Hypertension - well controlled - continue with current medications, continue with no added salt diet. Pt has been encouraged to exercise daily. The pt has been advised to call the office if there are any acute concerns about change in blood pressure readings at home. 03/16/2017 Appointment: [facility] Camejo [facility]Ptel[facility] [phone] [facility] (30 min) Complex 03/16/2017 Patient Education: Patient Medication Summary Completed 03/16/2017 Patient Education: Obesity Completed 03/16/2017 Care Plan: Referral Order SNOMED-CT : [id number] Pending 03/16/2017 Visit Plan: Allergies - chronic [...] worsen. 03/12/2017 Appointment: [facility] Dale [facility]el[facility] [phone] [facility] (15 min) Moderate 03/12/2017 Patient Education: [...] less controlled. 02/17/2017 Appointment: [facility] Camejo [facility]el[facility] [phone] [facility] (30 min) Complex [...] less controlled. 01/20/2017 Appointment: Fif[facility] Camejo [facility]Ptel: [phone] [facility] (30 min) Complex [...] range. 09/21/2016 Appointment: [facility]amejo [facility]Ptel: [phone] [facility] [place] (15 min) Moderate 09/21/2016 Patient [...] time. 08/03/2016 Appointment: [facility] Camejo [facility]Ptel: [phone] [facility] [place] (15 min) Moderate 08/03/2016 Patient [...] not improving. 07/06/2016 Appointment: Fifi Camejo WPtel: [facility] New Patient 07/06/2016 [...] monitor your heart rate Consider referral for marine superintendent for possible stress test if needed. Call [...] to allow for greater blood glucose control. . Diabetes Mellitus - controlled - per [...] to assure normal liver response to medications. recommend shingles vaccine . Medicare Exam - [...] her [employer] paperwork for health care surrogate. decrease the metoprolol to 1/2 pill twice [...] except for the changes listed above. . Sinusitis - Pt has acute infection [...] have recommended a referral to ENT in [place] or [place]. I suspect she may need myringotomy tubes. Pt to continue with flonase. Orthostatic hypotension - dc doxazosin. Monitor blood pressures at home. stop the doxazosin meclizine change to 1/2 pill three times a day come back on Wednesday for blood pressure check Stay off of your bystolic Stop the [...] monitor your heart rate Consider referral for marine superintendent for possible stress test if needed. Call [...] if they acutely worsen. . Hypertension - uncontrolled today [...] - recommended referral to Dr. Anders in [facility] (for decongestion) get vitamin c take 500mg twice daily . Bronchitis - acute case of bronchitis identified. Pt has been given antibiotics, breathing treatments as appropriate, and pt has been instructed to call if symptoms are not improved, or if symptoms acutely worsen. Nasal spray- use twice daily, one spray [...] change in blood pressure readings at home. Nasal spray- use twice daily, one spray [...]
--- OUTSIDE RECORDS SUMMARY | 2019-03-08 17:01 | XMS REPORT | CCD ---
Author Author Fifi Camejo Organization Fifi Camejo MD, [facility] Address [address] [place] [address] Phone Care Team Providers Care Loan And Credit Manager Name Role Phone PP Unavailable CCM Unavailable Summary Purpose Interface Exchange Insurance Providers Payer name Policy type / Coverage type Covered constitution party ID Effective Begin Date Effective End Date WPS Medicare Part B Medicare Part B [id number] 2018 Unknown FOR LIFE WPS Medicare Part B [id number] Unknown Family history Father Diagnosis Age At Onset Cancer Unknown Brother Diagnosis Age At Onset Diabetes mellitus Type 2 Unknown Heart Attack Unknown Social History Social History Element Codes Description Effective Dates Marital status Unknown Wu 11/05/2016 Number of children Unknown 1 07/06/2016 Employment Unknown Retired 07/06/[address]: 530060686 Never smoker 07/06/[address]: 628015497 Never drinks alcohol 07/06/2016 Allergies, Adverse Reactions, Alerts Substance Reaction Codes Entered Date Inactivated Date Status Protonix hives RxNorm: 750564 09/06/2018 No Inactive Date Active IV DYE, [...] Fill Instructions cefdinir 300 mg capsule RxNorm: 443771 1 Capsule(s) PO BID 10/19/2018 10/22/2018 Active Zithromax Z-Juan 250 mg tablet RxNorm: 789718 1 Tablet(s) PO UD 10/19/2018 10/23/2018 Active zpack as directed glimepiride 4 mg tablet RxNorm: 863872 Tablet(s) 1 TABLET(S) PO DAILY 10/12/2018 No Stop Date Active cefdinir 300 mg capsule RxNorm: 155053 1 Capsule(s) PO BID 10/12/2018 10/18/2018 Inactive Zithromax Z-Juan 250 mg tablet RxNorm: 884792 1 Tablet(s) PO UD 10/12/2018 10/16/2018 Inactive zpack as directed Tessalon Perles 100 mg capsule RxNorm: 814436 2 Capsule(s) PO TID as needed cough 10/12/2018 10/16/2018 Inactive Kenalog 40 mg/mL suspension for injection RxNorm: 9749775 1 Milliliter(s) Inj 10/12/2018 10/12/2018 Inactive Zithromax Z-Juan 250 mg tablet RxNorm: 036690 1 Tablet(s) PO UD 08/22/2018 08/26/2018 Inactive zpack as directed clonidine HCl 0.1 mg tablet RxNorm: 766626 1 Tablet(s) PO QAM 08/16/2018 08/10/2019 Active losartan 100 mg tablet RxNorm: 696099 1 TABLET(S) PO DAILY FOR HIGH BLOOD PRESSURE 08/12/2018 No Stop Date Active alprazolam 0.5 mg tablet RxNorm: 970978 1 Tablet(s) PO TID as needed anxiety 06/30/2018 12/26/2018 Active fluticasone 50 mcg/actuation nasal spray,suspension RxNorm: 0829879 USE 1 SPRAY NASALLY TWICE A DAY 05/06/2018 No Stop Date Active clonidine HCl 0.1 mg tablet RxNorm: 144129 1 Tablet(s) PO BID 04/14/2018 08/15/2018 Inactive clonidine HCl 0.1 mg tablet RxNorm: 626027 1 Tablet(s) PO TID 04/12/2018 04/13/2018 Inactive Zithromax Z-Juan 250 mg tablet RxNorm: 189136 1 Tablet(s) PO UD 01/20/2018 08/21/2018 Inactive disregard first rx for 1 - patient needs 3 packs-please dispense generic azithromycin Zithromax Z-Juan 250 mg tablet RxNorm: 943549 1 Tablet(s) PO UD 01/20/2018 01/19/2018 Inactive Zithromax Z-Juan 250 mg tablet RxNorm: 201322 1 Tablet(s) PO UD 01/20/2018 01/19/2018 Inactive disregard first rx for 1 - patient needs 3 packs Zithromax Z-Juan 250 mg tablet RxNorm: 180144 1 Tablet(s) PO UD 01/20/2018 01/19/2018 Inactive atorvastatin 10 mg tablet RxNorm: 058757 1 Tablet(s) PO QPM 12/30/2017 12/24/2018 Active atorvastatin 10 mg tablet RxNorm: 650802 1 Tablet(s) PO QPM 12/30/2017 12/29/2017 Inactive metoprolol tartrate 50 mg tablet RxNorm: 765103 1/2 Tablet(s) PO BID 12/29/2017 12/23/2018 Active clonidine HCl 0.1 mg tablet RxNorm: 201366 1 Tablet(s) PO BID 12/29/2017 04/11/2018 Inactive Lipitor 10 mg tablet RxNorm: 199530 1 Tablet(s) PO QPM 12/29/2017 12/29/2017 Inactive OKAY TO DISPENSE GENERIC alprazolam 0.5 mg tablet RxNorm: 536119 1 Tablet(s) PO TID as needed anxiety 11/18/2017 05/16/2018 Inactive glimepiride 4 mg tablet RxNorm: 991201 1 TABLET(S) PO DAILY 11/15/2017 10/11/2018 Inactive alprazolam 0.5 mg tablet RxNorm: 471492 1 Tablet(s) PO TID as needed anxiety 09/20/2017 11/17/2017 Inactive Zithromax Z-Jaun 250 mg tablet RxNorm: 950712 1 Tablet(s) PO UD 09/20/2017 12/28/2017 Inactive Zithromax Z-Juan 250 mg tablet RxNorm: 243727 1 Tablet(s) PO UD 09/14/2017 09/19/2017 Inactive amlodipine 10 mg tablet RxNorm: 259559 1 Tablet(s) PO daily 08/24/2017 08/18/2018 Inactive clonidine HCl 0.1 mg tablet RxNorm: 772394 1/2 Tablet(s) PO BID 08/24/2017 12/28/2017 Inactive erythromycin 5 mg/gram (0.5 %) eye ointment RxNorm: 979671 1 Gram(s) ophthalmic (eye) QID left eye cyst 08/24/2017 09/06/2017 Inactive losartan 100 mg tablet RxNorm: 748030 1 Tablet(s) PO daily for high blood pressure 08/16/2017 08/10/2018 Inactive metoprolol tartrate 50 mg tablet RxNorm: 227032 1/2 Tablet(s) PO BID 07/26/2017 12/28/2017 Inactive clonidine HCl 0.1 mg tablet RxNorm: 414359 1/2 Tablet(s) PO BID 07/26/2017 08/23/2017 Inactive metoprolol tartrate 50 mg tablet RxNorm: 050984 1 Tablet(s) PO BID 07/21/2017 07/25/2017 Inactive amlodipine 10 mg tablet RxNorm: 520183 1 TABLET(S) PO DAILY 06/29/2017 08/23/2017 Inactive Lipitor 10 mg tablet RxNorm: 255439 1 Tablet(s) PO QPM 05/27/2017 12/28/2017 Inactive OKAY TO DISPENSE GENERIC alprazolam 0.5 mg tablet RxNorm: 737493 1 Tablet(s) PO TID as needed anxiety 05/18/2017 08/15/2017 Inactive hydrochlorothiazide 12.5 mg tablet RxNorm: 118456 1 Tablet(s) PO daily 04/22/2017 05/21/2017 Inactive hydrochlorothiazide 12.5 mg tablet RxNorm: 407418 1 Tablet(s) PO daily 04/22/2017 04/21/2017 Inactive Cipro 500 mg tablet RxNorm: 952388 1 Tablet(s) PO BID 04/16/2017 04/22/2017 Inactive Zofran 4 mg tablet RxNorm: 860275 1 Tablet(s) PO BID as needed nausea and vomitting 04/15/2017 04/19/2017 Inactive Lipitor 10 mg tablet RxNorm: 080267 1 Tablet(s) PO QPM 03/30/2017 05/26/2017 Inactive OKAY TO DISPENSE GENERIC Kenalog 40 mg/mL suspension for injection RxNorm: 2299112 1 Milliliter(s) Inj 03/16/2017 03/16/2017 Inactive doxazosin 4 mg tablet RxNorm: 186306 1.5 Tablet(s) PO BID 03/16/2017 05/02/2017 Inactive prednisone 10 mg tablets in a dose pack RxNorm: 037879 Tablet(s) take dose pack as directed PO take with food 03/16/2017 05/23/2017 Inactive Kenalog 40 mg/mL suspension for injection RxNorm: 0027710 Milliliter(s) Inj 03/12/2017 03/12/2017 Inactive Zithromax Z-Juan 250 mg tablet RxNorm: 926348 1 Tablet(s) PO daily 03/11/2017 03/10/2017 Inactive zpack as directed Zithromax Z-Juan 250 mg tablet RxNorm: 776369 1 Tablet(s) PO daily 03/11/2017 03/15/2017 Inactive zpack as directed doxazosin 4 mg tablet RxNorm: 814915 1.5 Tablet(s) PO BID 02/12/2017 03/15/2017 Inactive fluticasone 50 mcg/actuation nasal spray,suspension RxNorm: 6548882 1 SPRAY NASAL BID 02/05/2017 05/05/2018 Inactive metoprolol tartrate 75 mg tablet RxNorm: 0907717 1 Tablet(s) PO BID 01/29/2017 07/19/2017 Inactive metoprolol tartrate 75 mg tablet RxNorm: 1588853 1 Tablet(s) PO BID 01/29/2017 01/28/2017 Inactive doxazosin 4 mg tablet RxNorm: 235132 1 Tablet(s) PO BID 01/20/2017 02/11/2017 Inactive pantoprazole 40 mg tablet,delayed release RxNorm: 559973 1 Tablet(s) PO daily 12/24/2016 01/19/2017 Inactive pantoprazole 40 mg tablet,delayed release RxNorm: 263798 1 Tablet(s) PO daily 12/24/2016 12/23/2016 Inactive alprazolam 0.5 mg tablet RxNorm: 432121 1 Tablet(s) PO TID as needed anxiety 12/03/2016 04/01/2017 Inactive fluticasone 50 mcg/actuation nasal spray,suspension RxNorm: 4838441 1 [place] NASAL BID 11/25/2016 12/24/2016 Inactive Dexilant 60 mg capsule, delayed release RxNorm: 507548 1 Capsule(s) PO daily 11/25/2016 11/24/2016 Inactive fluticasone 50 mcg/actuation nasal spray,suspension RxNorm: 9272406 1 [place] NASAL BID 11/25/2016 11/24/2016 Inactive fluticasone 50 mcg/actuation nasal spray,suspension RxNorm: 8651133 1 [place] NASAL BID 11/25/2016 11/24/2016 Inactive Dexilant 60 mg capsule, delayed release RxNorm: 391956 1 Capsule(s) PO daily 11/25/2016 12/23/2016 Inactive ProAir RespiClick 90 mcg/actuation breath activated RxNorm: 2211619 1 INH bid and QID as needed 11/19/2016 05/17/2017 Inactive Please send STAT Flonase Allergy Relief 50 mcg/actuation nasal spray,suspension RxNorm: 9828242 1 [place] NASAL BID 11/19/2016 11/24/2016 Inactive glimepiride 4 mg tablet RxNorm: 785958 1 Tablet(s) PO daily 11/19/2016 11/13/2017 Inactive metoprolol tartrate 50 mg tablet RxNorm: 950205 1 Tablet(s) PO BID 11/19/2016 01/28/2017 Inactive Flonase Allergy Relief 50 mcg/actuation nasal spray,suspension RxNorm: 4638962 1 [place] NASAL BID 11/17/2016 11/18/2016 Inactive metoprolol tartrate 50 mg tablet RxNorm: 342513 1 Tablet(s) PO BID 11/17/2016 11/18/2016 Inactive ProAir RespiClick 90 mcg/actuation breath activated RxNorm: 0562352 1 INH bid and QID as needed 11/17/2016 11/16/2016 Inactive glimepiride 4 mg tablet RxNorm: 358458 1 Tablet(s) PO daily 11/17/2016 11/18/2016 Inactive ProAir RespiClick 90 mcg/actuation breath activated RxNorm: 2970654 1 INH bid and QID as needed 11/17/2016 11/18/2016 Inactive Please send STAT Kenalog 40 mg/mL suspension for injection RxNorm: 8337509 1 Milliliter(s) Inj 11/05/2016 11/05/2016 Inactive azithromycin 250 mg tablet RxNorm: 668086 Tablet(s) PO 2 tabs on day #1, then daily x 4 days 11/05/2016 12/23/2016 Inactive doxazosin 4 mg tablet RxNorm: 193751 1 Tablet(s) PO QPM 10/02/2016 01/19/2017 Inactive doxazosin 4 mg tablet RxNorm: 721357 1 Tablet(s) PO QPM 09/29/2016 10/01/2016 Inactive doxazosin 4 mg tablet RxNorm: 598964 1 Tablet(s) PO QPM 09/21/2016 09/28/2016 Inactive Cipro 500 mg tablet RxNorm: 872982 1 Tablet(s) PO BID 09/18/2016 09/17/2016 Inactive Cipro 500 mg tablet RxNorm: 129011 1 Tablet(s) PO BID 09/18/2016 09/24/2016 Inactive losartan 100 mg tablet RxNorm: 986520 1 Tablet(s) PO daily for high blood pressure 09/16/2016 09/15/2016 Inactive alprazolam 0.5 mg tablet RxNorm: 913730 1 Tablet(s) PO TID as needed anxiety 09/16/2016 11/14/2016 Inactive losartan 100 mg tablet RxNorm: 347958 1 Tablet(s) PO daily for high blood pressure 09/16/2016 08/15/2017 Inactive amlodipine 10 mg tablet RxNorm: 913584 1 Tablet(s) PO daily 08/03/2016 06/28/2017 Inactive Zyrtec 10 mg tablet RxNorm: 4841070 1 Tablet(s) PO daily 08/03/2016 09/15/2016 Inactive losartan 25 mg tablet RxNorm: 070856 1 Tablet(s) PO daily 07/08/2016 09/15/2016 Inactive Lipitor 10 mg tablet RxNorm: 215095 1 Tablet(s) PO QPM 07/08/2016 07/17/2016 Inactive OKAY TO DISPENSE GENERIC Lipitor 10 mg tablet RxNorm: 280527 1 Tablet(s) PO QPM 07/06/2016 07/07/2016 Inactive OKAY TO DISPENSE GENERIC losartan 25 mg tablet RxNorm: 197312 1 Tablet(s) PO daily 07/06/2016 07/07/2016 Inactive meclizine 25 mg tablet RxNorm: 597801 1 Tablet(s) PO TID as needed No Start Date Active Parafon Forte DSC 500 mg tablet RxNorm: 861486 1 Tablet(s) PO QID No Start Date Active Pazeo 0.7 % eye drops RxNorm: 2827114 Drop(s) ophthalmic (eye) as needed dry eyes No Start Date Active Zithromax Z-Juan 250 mg tablet RxNorm: 905034 1 Tablet(s) PO UD No Start Date 09/13/2017 Inactive glimepiride 4 mg tablet RxNorm: 367228 1 Tablet(s) PO daily No Start Date 11/16/2016 Inactive metoprolol tartrate 100 mg tablet RxNorm: 497148 1 Tablet(s) PO BID No Start Date 07/21/2017 Inactive naproxen 500 mg tablet RxNorm: 094104 1 Tablet(s) PO BID No Start Date 03/23/2017 Inactive amlodipine 5 mg tablet RxNorm: 141014 1 Tablet(s) PO daily No Start Date 08/02/2016 Inactive metoprolol tartrate 50 mg tablet RxNorm: 911361 1 Tablet(s) PO BID No Start Date 11/16/2016 Inactive Medication Administered Medication Codes Instructions Start Date Status Kenalog 40 mg/mL suspension for injection RxNorm: 2624798 1Milliliter 10/12/2018 No longer Active Kenalog 40 mg/mL suspension for injection RxNorm: 7815737 1Milliliter 03/16/2017 No longer Active Kenalog 40 mg/mL suspension for injection RxNorm: 0544174 Milliliter 03/12/2017 No longer Active Kenalog 40 mg/mL suspension for injection RxNorm: 9998333 1Milliliter 11/05/2016 No longer Active Immunizations Vaccine [...] Lipid Ord30 C/HDL 3.1 Ratio 08/18/2018 Microalbumin Kmm124 MicroAlb 7.5 mg/dL 08/18/2018 Cbc With Differential [...] 29.6 pg 08/18/2018 Cbc With Differential Ord2 [place]% 10.6 % 08/18/2018 Cbc With Differential Ord2 [...] 1.69 K/ul 08/18/2018 Cbc With Differential Ord2 [place] ABS# 0.6 K/ul 08/18/2018 Cbc With Differential Ord2 Eos ABS# 0.3 K/ul 08/18/2018 Cbc With Differential Ord2 Baso ABS# 0.0 K/ul 08/18/2018 Comp Metabolic Nrf237 NA 137 mEq/L 08/18/2018 Comp Metabolic Mrj613 K 3.8 mEq/L 08/18/2018 Comp Metabolic Zad741 CL 103 mEq/L 08/18/2018 Comp Metabolic Jxb714 CO2 26.0 mEq/L 08/18/2018 Comp Metabolic Buj243 ANION GAP 12 08/18/2018 Comp Metabolic Roe528 GLUCOSE 110 mg/dL 08/18/2018 Comp Metabolic Via979 Creat 1.2 mg/dL 08/18/2018 Comp Metabolic Ysh436 eGFR 47 ml/min/1.73m2 08/18/2018 Comp Metabolic Lku357 BUN 25 mg/dL 08/18/2018 Comp Metabolic Vux359 B/C Ratio 21.0 Ratio 08/18/2018 Comp Metabolic Gfc760 CALCIUM 9.4 mg/dL 08/18/2018 Comp Metabolic Wkd321 ALK PHOS 99 U/L 08/18/2018 Comp Metabolic Ops136 AST(SGOT) 31 U/L 08/18/2018 Comp Metabolic Ica975 ALT(SGPT) 27 U/L 08/18/2018 Comp Metabolic Blo799 BILI T 0.7 mg/dL 08/18/2018 Comp Metabolic Hit423 ALBUMIN 4.2 g/dL 08/18/2018 Comp Metabolic Bgm365 TPRO 6.7 g/dL 08/18/2018 Comp Metabolic Xts004 GLOB 2.5 g/dL 08/18/2018 Comp Metabolic Gfe372 A/G Ratio 1.7 Ratio 08/18/2018 Comp Metabolic Sdc073 Osmo 279 mOsmo 08/18/2018 %Hba1C Zgk617 % HbA1c 41980- 6 6.1 % 08/18/2018 %Hba1C Whn225 Gluc Ave 128 mg/dL 08/18/2018 Tsh Ord6 TSH (3rd IS) 3.93 uIU/mL 08/18/2018 Lipid Ord30 CHOL 146 mg/dL 04/15/2018 Lipid Ord30 HDL 62.0 mg/dl 04/15/2018 Lipid Ord30 TRIG 88 mg/dL 04/15/2018 Lipid Ord30 LDL 66 mg/dL 04/15/2018 Lipid Ord30 C/HDL 2.4 Ratio 04/15/2018 %Hba1C Npb095 % HbA1c 82728- 6 6.3 % 04/15/2018 %Hba1C Onj290 Gluc Ave 134 mg/dL 04/15/2018 Cbc With [...] 30.2 pg 04/15/2018 Cbc With Differential Ord2 [place]% 6.8 % 04/15/2018 Cbc With Differential Ord2 [...] 2.10 K/ul 04/15/2018 Cbc With Differential Ord2 [place] ABS# 0.5 K/ul 04/15/2018 Cbc With Differential Ord2 Eos ABS# 0.2 K/ul 04/15/2018 Cbc With Differential Ord2 Baso ABS# 0.0 K/ul 04/15/2018 Comp Metabolic Mpj871 NA 140 mEq/L 04/15/2018 Comp Metabolic Tpc823 K 4.3 mEq/L 04/15/2018 Comp Metabolic Bxh131 CL 106 mEq/L 04/15/2018 Comp Metabolic Lbh874 CO2 23.0 mEq/L 04/15/2018 Comp Metabolic Jei374 ANION GAP 15 04/15/2018 Comp Metabolic Jzg077 GLUCOSE 90 mg/dL 04/15/2018 Comp Metabolic Nkd049 Creat 1.2 mg/dL 04/15/2018 Comp Metabolic Ixh357 eGFR 45 ml/min/1.73m2 04/15/2018 Comp Metabolic Nul797 BUN 28 mg/dL 04/15/2018 Comp Metabolic Cvb008 B/C Ratio 22.8 Ratio 04/15/2018 Comp Metabolic Wdp724 CALCIUM 9.5 mg/dL 04/15/2018 Comp Metabolic Zaf078 ALK PHOS 95 U/L 04/15/2018 Comp Metabolic Owb392 AST(SGOT) 20 U/L 04/15/2018 Comp Metabolic Atk413 ALT(SGPT) 13 U/L 04/15/2018 Comp Metabolic Rns899 BILI T 0.5 mg/dL 04/15/2018 Comp Metabolic Ltr177 ALBUMIN 4.1 g/dL 04/15/2018 Comp Metabolic Qyx011 TPRO 6.6 g/dL 04/15/2018 Comp Metabolic Qmj247 GLOB 2.5 g/dL 04/15/2018 Comp Metabolic Kvc328 A/G Ratio 1.6 Ratio 04/15/2018 Comp Metabolic Txx614 Osmo 284 mOsmo 04/15/2018 Comp Metabolic Hip441 NA 137 mEq/L 02/04/2018 Comp Metabolic Zor067 K 4.0 mEq/L 02/04/2018 Comp Metabolic Tkb905 CL 104 mEq/L 02/04/2018 Comp Metabolic Ywt078 CO2 27.0 mEq/L 02/04/2018 Comp Metabolic Oao019 ANION GAP 10 02/04/2018 Comp Metabolic Vzy614 GLUCOSE 212 mg/dL 02/04/2018 Comp Metabolic Zib486 Creat 1.2 mg/dL 02/04/2018 Comp Metabolic Nwm753 eGFR 47 ml/min/1.73m2 02/04/2018 Comp Metabolic Wpl587 BUN 20 mg/dL 02/04/2018 Comp Metabolic Uhn918 B/C Ratio 16.8 Ratio 02/04/2018 Comp Metabolic Skz587 CALCIUM 8.9 mg/dL 02/04/2018 Comp Metabolic Ync306 ALK PHOS 107 U/L 02/04/2018 Comp Metabolic Kfm602 AST(SGOT) 17 U/L 02/04/2018 Comp Metabolic Aow326 ALT(SGPT) 11 U/L 02/04/2018 Comp Metabolic Kkd280 BILI T 0.4 mg/dL 02/04/2018 Comp Metabolic Vmi647 ALBUMIN 3.8 g/dL 02/04/2018 Comp Metabolic Svn534 TPRO 6.2 g/dL 02/04/2018 Comp Metabolic Uir042 GLOB 2.4 g/dL 02/04/2018 Comp Metabolic Gno494 A/G Ratio 1.6 Ratio 02/04/2018 Comp Metabolic Scz080 Osmo 283 mOsmo 02/04/2018 %Hba1C Ydu227 % HbA1c 16151- 6 6.3 % 12/30/2017 %Hba1C Twh648 Gluc Ave 134 mg/dL 12/30/2017 Comp Metabolic Lvk847 NA 142 mEq/L 12/30/2017 Comp Metabolic Ktq305 K 4.4 mEq/L 12/30/2017 Comp Metabolic Dur538 CL 103 mEq/L 12/30/2017 Comp Metabolic Lbq451 CO2 31.0 mEq/L 12/30/2017 Comp Metabolic Yzj024 ANION GAP 12 12/30/2017 Comp Metabolic Ypu859 GLUCOSE 119 mg/dL 12/30/2017 Comp Metabolic Riv939 Creat 1.4 mg/dL 12/30/2017 Comp Metabolic Imu422 eGFR 41 ml/min/1.73m2 12/30/2017 Comp Metabolic Ptz169 BUN 27 mg/dL 12/30/2017 Comp Metabolic Wxo610 B/C Ratio 20.0 Ratio 12/30/2017 Comp Metabolic Pkj798 CALCIUM 9.9 mg/dL 12/30/2017 Comp Metabolic Oxi009 ALK PHOS 106 U/L 12/30/2017 Comp Metabolic Hdv787 AST(SGOT) 20 U/L 12/30/2017 Comp Metabolic Xvr775 ALT(SGPT) 13 U/L 12/30/2017 Comp Metabolic Kvg826 BILI T 0.7 mg/dL 12/30/2017 Comp Metabolic Urd600 ALBUMIN 4.2 g/dL 12/30/2017 Comp Metabolic Qrc446 TPRO 6.7 g/dL 12/30/2017 Comp Metabolic Zdl605 GLOB 2.6 g/dL 12/30/2017 Comp Metabolic Cet101 A/G Ratio 1.6 Ratio 12/30/2017 Comp Metabolic Hzd764 Osmo 289 mOsmo 12/30/2017 Lipid Ord30 CHOL 167 mg/dL 12/30/2017 Lipid Ord30 HDL 63.0 mg/dl 12/30/2017 Lipid Ord30 TRIG 89 mg/dL 12/30/2017 Lipid Ord30 LDL 86 mg/dL 12/30/2017 Lipid Ord30 C/HDL 2.7 Ratio 12/30/2017 Urine Culture Ucult Preliminary NO Growth Day 1 04/17/2017 Urine Culture Ucult Complete NO Growth Day 2 04/17/2017 Comp Metabolic Dxg214 NA 143 mEq/L 04/15/2017 Comp Metabolic Lpa607 K 4.6 mEq/L 04/15/2017 Comp Metabolic Mpx236 CL 110 mEq/L 04/15/2017 Comp Metabolic Oon327 CO2 30.0 mEq/L 04/15/2017 Comp Metabolic Xjk842 ANION GAP 8 04/15/2017 Comp Metabolic Qov639 GLUCOSE 159 mg/dL 04/15/2017 Comp Metabolic Bjc806 Creat 1.1 mg/dL 04/15/2017 Comp Metabolic Ijx934 eGFR 54 ml/min/1.73m2 04/15/2017 Comp Metabolic Fvo841 BUN 27 mg/dL 04/15/2017 Comp Metabolic Gfz103 B/C Ratio 25.7 Ratio 04/15/2017 Comp Metabolic Bsx399 CALCIUM 9.4 mg/dL 04/15/2017 Comp Metabolic Okg789 ALK PHOS 93 U/L 04/15/2017 Comp Metabolic Nti664 AST(SGOT) 19 U/L 04/15/2017 Comp Metabolic Jpy858 ALT(SGPT) 18 U/L 04/15/2017 Comp Metabolic Uwo344 BILI T 0.6 mg/dL 04/15/2017 Comp Metabolic Act840 ALBUMIN 3.9 g/dL 04/15/2017 Comp Metabolic Wqj409 TPRO 6.5 g/dL 04/15/2017 Comp Metabolic Vxh998 GLOB 2.6 g/dL 04/15/2017 Comp Metabolic Tzr303 A/G Ratio 1.5 Ratio 04/15/2017 Comp Metabolic Hya193 Osmo 293 mOsmo 04/15/2017 Tsh Ord6 hTSH II 2.05 uIU/mL 04/15/2017 %Hba1C Sdo777 % HbA1c 55357- 6 6.3 % 04/15/2017 %Hba1C Dfz147 Gluc Ave 134 mg/dL 04/15/2017 Cbc With [...] 22.4 % 04/15/2017 Cbc With Differential Ord2 [place]% 6.9 % 04/15/2017 Cbc With Differential Ord2 [...] 1.58 K/ul 04/15/2017 Cbc With Differential Ord2 [place] ABS# 0.5 K/ul 04/15/2017 Cbc With Differential [...] Ord28 U-Com Culture to follow 04/15/2017 %Hba1C Hvi285 % HbA1c 78389- 6 5.8 % 01/07/2017 %Hba1C Hsb347 Gluc Ave 120 mg/dL 01/07/2017 Urine Culture Ucult Preliminary NO Growth Day 1 09/21/2016 Urine Culture Ucult Complete NO Growth Day 2 09/21/2016 %Hba1C Gfe964 % HbA1c 98880- 6 6.0 % 09/17/2016 %Hba1C Wud913 Gluc Ave 126 mg/dL 09/17/2016 Comp Metabolic Gww923 NA 140 mEq/L 09/17/2016 Comp Metabolic Uwj471 K 4.1 mEq/L 09/17/2016 Comp Metabolic Oms322 CL 105 mEq/L 09/17/2016 Comp Metabolic Deg127 CO2 29.0 mEq/L 09/17/2016 Comp Metabolic Kkg845 ANION GAP 10 09/17/2016 Comp Metabolic Car159 GLUCOSE 89 mg/dL 09/17/2016 Comp Metabolic Ool135 Creat 0.9 mg/dL 09/17/2016 Comp Metabolic Qip051 eGFR 65 ml/min/1.73m2 09/17/2016 Comp Metabolic Vpv545 BUN 20 mg/dL 09/17/2016 Comp Metabolic Gti673 B/C Ratio 22.2 Ratio 09/17/2016 Comp Metabolic Ebp453 CALCIUM 9.3 mg/dL 09/17/2016 Comp Metabolic Kdh044 ALK PHOS 107 U/L 09/17/2016 Comp Metabolic Lxo865 AST(SGOT) 22 U/L 09/17/2016 Comp Metabolic Oup022 ALT(SGPT) 15 U/L 09/17/2016 Comp Metabolic Yxd798 BILI T 0.7 mg/dL 09/17/2016 Comp Metabolic Vkj060 ALBUMIN 4.0 g/dL 09/17/2016 Comp Metabolic Dno526 TPRO 6.8 g/dL 09/17/2016 Comp Metabolic Mrd972 GLOB 2.8 g/dL 09/17/2016 Comp Metabolic Xyq663 A/G Ratio 1.4 Ratio 09/17/2016 Comp Metabolic Voo423 Osmo 281 mOsmo 09/17/2016 Microalbumin Dcf064 MicroAlb 44.3 mg/dL 09/17/2016 Tsh Ord6 hTSH [...] 25.6 % 09/17/2016 Cbc With Differential Ord2 [place]% 8.1 % 09/17/2016 Cbc With Differential Ord2 [...] 1.78 K/ul 09/17/2016 Cbc With Differential Ord2 [place] ABS# 0.6 K/ul 09/17/2016 Cbc With Differential [...] 1995 Ears/Nose/Throat oral cavity/pharynx/larynx Overall: hypopharynx benign 08/16/2018 [...] CPT-4: J3301 10/12/2018 THER/PROPH/DIAG INJ SC/IM CPT-4: 49537 10/12/2018 PPPS, SUBSEQ VISIT CPT- 4: G0439 09/06/2018 URINALYSIS NONAUTO W/O SCOPE CPT-4: 08649 12/29/2017 PPPS, SUBSEQ VISIT CPT- 4: G0439 03/30/2017 THER/PROPH/DIAG INJ SC/IM CPT-4: 22147 03/16/2017 TRIAMCINOLONE ACET INJ NOS CPT-4: J3301 03/16/2017 THER/PROPH/DIAG INJ SC/IM CPT-4: 51836 03/12/2017 TRIAMCINOLONE ACET INJ NOS CPT-4: J3301 03/12/2017 THER/PROPH/DIAG INJ SC/IM CPT-4: 13765 11/05/2016 TRIAMCINOLONE ACET INJ NOS CPT-4: J3301 11/05/2016 URINALYSIS NONAUTO W/O SCOPE CPT-4: 54410 09/18/2016 Vital Signs Date Vital 10/12/2018 Blood Pressure 1: 142/76 Code: 8480-6 BMI: 30.1 Code: 98947-3 Heart Rate 1: 83 bpm Height: 5'7" SpO2: 98% Weight: 192 lbs 09/06/2018 Blood Pressure 1: 142/66 Code: 8480-6 BMI: 30.9 Code: 54688-5 Heart Rate 1: 64 bpm Height: 5'7" SpO2: 98% Waist Measure (cm): 99 cm Weight: 197 lbs 08/16/2018 Blood Pressure 1: 140/70 Code: 8480-6 BMI: 34.4 Code: 64161-3 Heart Rate 1: 63 bpm Height: 5'7" SpO2: 95% Weight: 219 lbs 14 oz 04/12/2018 Blood Pressure 1: 160/70 Code: 8480-6 BMI: 33.0 Code: 75504-1 Heart Rate 1: 82 bpm Height: 5'7" SpO2: 95% Weight: 211 lbs 01/20/2018 Blood Pressure 1: 152/66 Code: 8480-6 BMI: 31.8 Code: 95264-7 Heart Rate 1: 52 bpm Height: 5'7" SpO2: 98% Temperature: 36.3 (C) / 97.3 (F) Weight: 203 lbs 12/29/2017 Blood Pressure 1: 168/72 Code: 8480-6 BMI: 32.1 Code: 90441-2 Heart Rate 1: 63 bpm Height: 5'7" SpO2: 98% Weight: 205 lbs 08/24/2017 Blood Pressure 1: 150/70 Code: 8480-6 Blood Pressure 1: 186/70 Code: 8480-6 BMI: 31.8 Code: 35331-6 Heart Rate 1: 53 bpm Height: 5'7" SpO2: 98% Weight: 203 lbs 07/26/2017 Blood Pressure 1: 206/78 Code: 8480-6 Blood Pressure 2: 210/84 Code: 8480-6 BMI: 32.0 Code: 11117-7 Heart Rate 1: 49 bpm Height: 5'7" SpO2: 97% Weight: 204 lbs 07/20/2017 Blood Pressure 1: 148/82 Code: 8480-6 Heart Rate 1: 90 bpm SpO2: 98% 05/27/2017 Blood Pressure 1: 142/72 Code: 8480-6 BMI: 30.5 Code: 21510-5 Heart Rate 1: 97 bpm Height: 5'7" [...] 1: 148/70 Code: 8480-6 BMI: 30.4 Code: 69255-6 Heart Rate 1: 54 bpm Height: 5'7" SpO2: 97% Weight: 194 lbs 03/30/2017 BMI: 33.2 Code: 28417-5 Height: 5'7" Weight: 212 lbs 03/16/2017 Blood Pressure 1: 140/80 Code: 8480-6 BMI: 34.0 Code: 82973-5 Heart Rate 1: 70 bpm Height: 5'7" SpO2: 95% Weight: 217 lbs 03/12/2017 Blood Pressure 1: 142/80 Code: 8480-6 BMI: 34.0 Code: 21096-4 Heart Rate 1: 76 bpm Height: 5'7" SpO2: 92% Weight: 217 lbs 02/17/2017 Blood Pressure 1: 162/64 Code: 8480-6 BMI: 32.9 Code: 61130-5 Heart Rate 1: 59 bpm Height: 5'7" SpO2: 97% Weight: 210 lbs 01/20/2017 Blood Pressure 1: 162/74 Code: 8480-6 BMI: 32.9 Code: 87833-1 Heart Rate 1: 56 bpm Height: 5'7" SpO2: 98% Weight: 210 lbs 11/17/2016 Blood Pressure 1: 156/60 Code: 8480-6 BMI: 34.8 Code: 95113-8 Heart Rate 1: 63 bpm Height: 5'7" SpO2: 96% Weight: 222 lbs 11/05/2016 Blood Pressure 1: 160/68 Code: 8480-6 BMI: 34.5 Code: 86738-3 Heart Rate 1: 66 bpm Height: 5'7" SpO2: 97% Temperature: 36.9 (C) / 98.5 (F) Weight: 220 lbs 09/21/2016 Blood Pressure 1: 166/72 Code: 8480-6 Blood Pressure 1: 180/72 Code: 8480-6 BMI: 32.1 Code: 62135-5 Heart Rate 1: 57 bpm Height: 5'7" SpO2: 98% Weight: 205 lbs 09/16/2016 Blood Pressure 1: 168/70 Code: 8480-6 Heart Rate 1: 49 bpm SpO2: 95% 08/03/2016 Blood Pressure 1: 162/70 Code: 8480-6 BMI: 32.0 Code: 62275-6 Heart Rate 1: 43 bpm Height: 5'7" SpO2: 98% Weight: 204 lbs 07/06/2016 Blood Pressure 1: 170/86 Code: 8480-6 BMI: 32.0 Code: 84655-5 Heart Rate 1: 48 bpm Height: 5'7" [...] Other allergic rhinitis[ICD10: J30.89] Krysta Camejo MD, [facility] CPT- 4: 93226 10/12/2018 ([id number]) [id number] EST. PATIENT, LEVEL IV Diagnosis: Essential (primary) hypertension[ICD10: I10] Diagnosis: Type 2 diabetes mellitus without complications[ICD10: E11.9] Diagnosis: Mixed hyperlipidemia[ICD10: E78.2] Fifi Camejo MD, [facility] CPT- 4: 93476 08/16/2018 ([id number]) 21302 EST. PATIENT, LEVEL IV Diagnosis: Type 2 diabetes mellitus without complications[ICD10: E11.9] Diagnosis: Mixed hyperlipidemia[ICD10: E78.2] Diagnosis: Essential (primary) hypertension[ICD10: I10] Diagnosis: Dysuria[ICD10: R30.0] Diagnosis: Pain in left foot[ICD10: M79.672] Fifi Camejo MD, [facility] CPT- 4: 34642 04/12/2018 ([id number]) 92235 EST. PATIENT, LEVEL III Diagnosis: Otalgia, bilateral[ICD10: H92.03] Diagnosis: Other allergic rhinitis[ICD10: J30.89] Yuridia Camejo MD, [facility] CPT-4: 94208 01/20/2018 ([id number]) 18885 EST. PATIENT, LEVEL IV Diagnosis: Type 2 diabetes mellitus without complications[ICD10: E11.9] Diagnosis: Mixed hyperlipidemia[ICD10: E78.2] Diagnosis: Essential (primary) hypertension[ICD10: I10] Diagnosis: Dysuria[ICD10: R30.0] Fifi Camejo MD, [facility] CPT-4: 91946 12/29/2017 ([id number]) 92705 EST. PATIENT, LEVEL IV Diagnosis: Essential (primary) hypertension[ICD10: I10] Diagnosis: Cysts of left upper eyelid[ICD10: H02.824] Diagnosis: Pain in left foot[ICD10: M79.672] Fifi Camejo MD [facility] CPT- 4: 00066 08/24/2017 ([id number]) 67409 EST. PATIENT, LEVEL III Diagnosis: Essential (primary) hypertension[ICD10: I10] Fifi Camejo MD [facility] CPT-4: 34561 07/26/2017 ([id number]) Miscellaneous no charge Diagnosis: Essential (primary) hypertension[ICD10: I10] Fifi Camejo MD [facility] CPT-4: 74159 07/20/2017 82411 EST. PATIENT, LEVEL III Diagnosis: Otalgia, bilateral[ICD10: H92.03] Diagnosis: Dizziness and giddiness[ICD10: R42] Diagnosis: Mixed hyperlipidemia[ICD10: E78.2] Krysta Camejo MD [facility] CPT-4: 78971 05/27/2017 ([id number]) Miscellaneous no charge Diagnosis: Essential (primary) hypertension[ICD10: I10] Krysta Camejo MD [facility] CPT-4: 05881 05/07/2017 ([id number]) 38900 EST. PATIENT, LEVEL IV Diagnosis: Otalgia, bilateral[ICD10: H92.03] Diagnosis: Dizziness and giddiness[ICD10: R42] Diagnosis: Orthostatic hypotension[ICD10: I95.1] Fifi Camejo MD [facility] CPT-4: 36218 05/03/2017 30192 EST. PATIENT, LEVEL IV Diagnosis: Essential (primary) hypertension[ICD10: I10] Diagnosis: Type 2 diabetes mellitus without complications[ICD10: E11.9] Diagnosis: Gastro-esophageal reflux disease without esophagitis[ICD10: K21.9] Diagnosis: Dizziness and giddiness[ICD10: R42] Diagnosis: Dysuria[ICD10: R30.0] Diagnosis: Other malaise[ICD10: R53.81] Krysta Camejo MD, [facility] CPT-4: 76134 04/15/2017 ([id number]) 15189 EST. PATIENT, LEVEL IV Diagnosis: Type 2 diabetes mellitus without complications[ICD10: E11.9] Diagnosis: Otalgia, bilateral[ICD10: H92.03] Diagnosis: Essential (primary) hypertension[ICD10: I10] Diagnosis: Other allergic rhinitis[ICD10: J30.89] Fifi Camejo MD [facility] CPT-4: 69655 03/16/2017 25038 EST. PATIENT, LEVEL IV Diagnosis: Other acute sinusitis[ICD10: J01.80] Diagnosis: Acute suppurative otitis media without spontaneous rupture of ear drum, bilateral[ICD10: H66.003] Diagnosis: Other allergic rhinitis[ICD10: J30.89] Krysta Camejo MD [facility] CPT- 4: 43426 03/12/2017 ([id number]) 17669 EST. PATIENT, LEVEL IV Diagnosis: Essential (primary) hypertension[ICD10: I10] Diagnosis: Type 2 diabetes mellitus without complications[ICD10: E11.9] Fifi Camejo MD [facility] CPT-4: 58629 02/17/2017 ([id number]) 98626 EST. PATIENT, LEVEL IV Diagnosis: Essential (primary) hypertension[ICD10: I10] Diagnosis: Type 2 diabetes mellitus without complications[ICD10: E11.9] Fifi Camejo MD [facility] CPT-4: 09886 01/20/2017 ([id number]) 02688 EST. PATIENT, LEVEL IV Diagnosis: Essential (primary) hypertension[ICD10: I10] Diagnosis: Type 2 diabetes mellitus without complications[ICD10: E11.9] Diagnosis: Gastro-esophageal reflux disease without esophagitis[ICD10: K21.9] Fifi Camejo MD [facility] CPT-4: 16293 11/17/2016 ([id number]) 91316 EST. PATIENT, LEVEL III Diagnosis: Acute bronchitis due to other specified organisms[ICD10: J20.8] Diagnosis: Cough[ICD10: R05] Fifi Camejo MD, [facility] CPT-4: 84602 11/05/2016 ([id number]) 50302 EST. PATIENT, LEVEL IV Diagnosis: Essential (primary) hypertension[ICD10: I10] Diagnosis: Type 2 diabetes mellitus without complications[ICD10: E11.9] Fifi Camejo MD [facility] CPT-4: 46354 09/21/2016 ([id number]) Miscellaneous no charge Diagnosis: Essential (primary) hypertension[ICD10: I10] [facility] CPT-4: 33409 09/16/2016 ([id number]) 01435 EST. PATIENT, LEVEL III Diagnosis: Type 2 diabetes mellitus without complications[ICD10: E11.9] Diagnosis: Essential (primary) hypertension[ICD10: I10] [facility] CPT-4: 21360 08/03/2016 ([id number]) OFFICE VISIT, NEW - LEVEL 4 Diagnosis: Essential (primary) hypertension[ICD10: I10] Diagnosis: Type 2 diabetes mellitus without complications[ICD10: E11.9] Diagnosis: Carpal tunnel syndrome, left upper limb[ICD10: G56.02] Diagnosis: Right upper quadrant pain[ICD10: R10.11] Diagnosis: Mixed hyperlipidemia[ICD10: E78.2] [facility] CPT- 4: 41117 07/06/2016 Plan of Care Planned Activity Notes [...] allergy spray. 10/12/2018 Appointment: Krysta Dale WPtel: [address] [place], [place] [id number] (30 min) [facility] 10/12/2018 Patient Education: Patient Medication Summary Completed [...] surrogate. 09/06/2018 Appointment: Yuridia Walsh WPtel: [phone] [phone] [facility] - Annual Wellness Visit 09/06/2018 Patient Education: Patient Medication Summary Completed 09/06/2018 Appointment: Yuridia Walsh WPtel: [phone] [phone] [facility] - Annual Wellness Visit 08/29/2018 [...] me dications. 08/16/2018 Appointment: Fifi Camejo WPtel: [phone] [facility] (15 min) Moderate 08/16/2018 Patient Education: [...] foot. 04/12/2018 [facility]ment[phone] ([facility] Moderate 04/12/2018 Patient Education: Patient Medication Summary Completed 04/12/2018 Care Plan: Referral Order SNOMED-CT : 914897985 Pending 04/12/2018 Patient Education: Patient Medication Summary [...] allergy spray. 01/20/2018 Appointment: [phone] [place] (15 min) Moderate 01/20/2018 Patient Education: [...] controlled. 12/29/2017 Appointment: [phone] [facility] ([facility] min) Moderate 12/29/2017 Patient [...] recommended referral to Dr. Anders in [place] 08/24/2017 Appointment: [phone] [facility] (15 min) Moderate 08/24/2017 Patient Education: Patient Medication Summary Completed 08/24/2017 Care Plan: Referral Order SNOMED-CT : 938104511 Pending 08/24/2017 Visit Plan: Hypertension - uncontrolled [...] above. 07/26/2017 Appointment: [phone] [facility] (15 min) Moderate 07/26/2017 Patient [...] medications. 05/27/2017 Appointment: [phone] (15 min) Moderate 05/27/2017 Patient Education: Patient Medication Summary Completed 05/27/2017 Appointment: Nurse Visit 05/07/2017 Patient Education: Patient Medication Summary Completed 05/07/2017 Visit Plan: Persistent vergito with bilateral air-fluid levels and ear pain. Pt was seen by Dr. Calvo- she did not like his response to her complaints. I have recommended a referral to ENT in [place] or [place]. I suspect she may need myringotomy tubes. Pt to continue with flonase. Orthostatic hypotension - dc doxazosin. Monitor blood pressures at home. stop the doxazosin meclizine change to 1/2 pill three times a day come back on Wednesday for blood pressure check 05/03/2017 Appointment: [phone] [facility] [place] (15 min) Moderate 05/03/2017 Patient Education: Patient Medication Summary Completed 05/03/2017 Appointment: [facility]jo [facility] [phone] [facility] [place] (15 min) Moderate 04/21/2017 Visit Plan: [...] glucose control. 04/15/2017 Appointment: [facility] Dale [facility]el[phone] (30 min) Complex 04/15/2017 Patient Education: Patient [...] surrogate. 03/30/2017 Appointment: [facility] Dale [facility]el[facility] [phone] [facility] [facility] - Annual Wellness Visit 03/30/2017 [...] [facility] 24 Hypertension - well controlled - continue with current medications, continue with no added salt diet. Pt has been encouraged to exercise daily. The pt has been advised to call the office if there are any acute concerns about change in blood pressure readings at home. 03/16/2017 Appointment: Fifi Camejo WPtel: [phone] [facility] (30 min) Complex 03/16/2017 Patient Education: Patient Medication Summary Completed 03/16/2017 Patient Education: Obesity Completed 03/16/2017 Care Plan: Referral Order SNOMED-CT : [id number] Pending 03/16/2017 Visit Plan: Allergies - chronic [...] worsen. 03/12/2017 Appointment: [facility]ryst[facility] Dale [facility]el[phone] [facility] (15 min) Moderate 03/12/2017 Patient Education: Patient [...] controlled. 02/17/2017 Appointment: [facility] [phone] [facility] ([facility] min) Complex 02/17/2017 Patient [...] less controlled. 01/20/2017 Appointment: [facility] [phone] [facility] ([facility] min) Complex 01/20/2017 Patient Education: Patient [...] dexilant 11/17/2016 Appointment: [facility] [phone] [facility] ([facility] min) Complex 11/17/2016 Patient [...] range. 09/21/2016 Appointment: [facility]i Camejo [facility]el[facility] [phone] [facility] (15 min) Moderate 09/21/2016 Patient [...] time. 08/03/2016 Appointment: Fifi Camejo [facility]Ptel: [phone] [facility] (15 min) Moderate 08/03/2016 Patient [...] not improving. 07/06/2016 Appointment: Fifi Camejo WPtel: [facility] New Patient 07/06/2016 Patient Education: [...] monitor your heart rate Consider referral for system support technician for possible stress test if needed. [...] monitor your heart rate Consider referral for system support technician for possible stress test if needed. [...] have recommended a referral to ENT in [place] or [place]. I suspect she may need myringotomy tubes. [...] - recommended referral to Dr. Anders in [place]
--- OUTSIDE RECORDS SUMMARY | 2019-03-08 17:05 | XMS REPORT | CCD ---
Author Author Fifi Camejo MD, [facility] Address [address] [place] [address] Phone Care Team Providers Care Advanced Manufacturing Technician Name Role Phone PP Unavailable CCM Unavailable Summary Purpose Interface Exchange Insurance Providers Payer name Policy type / Coverage type Covered constitution party ID Effective Begin Date Effective End Date WPS Medicare Part B Medicare Part B [id number] 2018 Unknown FOR LIFE WPS Medicare Part B [id number] Unknown Family history Father Diagnosis Age At Onset Cancer Unknown Brother Diagnosis Age At Onset Diabetes mellitus Type 2 Unknown Heart Attack Unknown Social History Social History Element Codes Description Effective Dates Marital status Unknown Wu 11/05/2016 Number of children Unknown 1 07/06/2016 Employment Unknown Retired 07/06/[address]: 547227505 Never smoker 07/06/[address]: 579630069 Never drinks alcohol 07/06/2016 Allergies, Adverse Reactions, Alerts Substance Reaction Codes Entered Date Inactivated Date Status Protonix hives RxNorm: 675825 09/06/2018 No Inactive Date Active IV DYE, [...] Fill Instructions cefdinir 300 mg capsule RxNorm: 037451 1 Capsule(s) PO BID 10/12/2018 10/21/2018 Active Zithromax Z-Juan 250 mg tablet RxNorm: 642279 1 Tablet(s) PO UD 10/12/2018 10/16/2018 Active zpack as directed glimepiride 4 mg tablet RxNorm: 210175 Tablet(s) 1 TABLET(S) PO DAILY 10/12/2018 No Stop Date Active Tessalon Perles 100 mg capsule RxNorm: 018601 2 Capsule(s) PO TID as needed cough 10/12/2018 10/16/2018 Active Kenalog 40 mg/mL suspension for injection RxNorm: 5452482 1 Milliliter(s) Inj 10/12/2018 10/12/2018 Inactive Zithromax Z-Juan 250 mg tablet RxNorm: 650413 1 Tablet(s) PO UD 08/22/2018 08/26/2018 Inactive zpack as directed clonidine HCl 0.1 mg tablet RxNorm: 421888 1 Tablet(s) PO QAM 08/16/2018 08/10/2019 Active losartan 100 mg tablet RxNorm: 569323 1 TABLET(S) PO DAILY FOR HIGH BLOOD PRESSURE 08/12/2018 No Stop Date Active alprazolam 0.5 mg tablet RxNorm: 853860 1 Tablet(s) PO TID as needed anxiety 06/30/2018 12/26/2018 Active fluticasone 50 mcg/actuation nasal spray,suspension RxNorm: 7709243 USE 1 SPRAY NASALLY TWICE A DAY 05/06/2018 No Stop Date Active clonidine HCl 0.1 mg tablet RxNorm: 335292 1 Tablet(s) PO BID 04/14/2018 08/15/2018 Inactive clonidine HCl 0.1 mg tablet RxNorm: 383534 1 Tablet(s) PO TID 04/12/2018 04/13/2018 Inactive Zithromax Z-Juan 250 mg tablet RxNorm: 378363 1 Tablet(s) PO UD 01/20/2018 08/21/2018 Inactive disregard first rx for 1 - patient needs 3 packs-please dispense generic azithromycin Zithromax Z-Juan 250 mg tablet RxNorm: 883270 1 Tablet(s) PO UD 01/20/2018 01/19/2018 Inactive Zithromax Z-Juan 250 mg tablet RxNorm: 820025 1 Tablet(s) PO UD 01/20/2018 01/19/2018 Inactive disregard first rx for 1 - patient needs 3 packs Zithromax Z-Juan 250 mg tablet RxNorm: 001168 1 Tablet(s) PO UD 01/20/2018 01/19/2018 Inactive atorvastatin 10 mg tablet RxNorm: 097901 1 Tablet(s) PO QPM 12/30/2017 12/24/2018 Active atorvastatin 10 mg tablet RxNorm: 376585 1 Tablet(s) PO QPM 12/30/2017 12/29/2017 Inactive metoprolol tartrate 50 mg tablet RxNorm: 931747 1/2 Tablet(s) PO BID 12/29/2017 12/23/2018 Active clonidine HCl 0.1 mg tablet RxNorm: 217992 1 Tablet(s) PO BID 12/29/2017 04/11/2018 Inactive Lipitor 10 mg tablet RxNorm: 713148 1 Tablet(s) PO QPM 12/29/2017 12/29/2017 Inactive OKAY TO DISPENSE GENERIC alprazolam 0.5 mg tablet RxNorm: 388953 1 Tablet(s) PO TID as needed anxiety 11/18/2017 05/16/2018 Inactive glimepiride 4 mg tablet RxNorm: 638102 1 TABLET(S) PO DAILY 11/15/2017 10/11/2018 Inactive alprazolam 0.5 mg tablet RxNorm: 511735 1 Tablet(s) PO TID as needed anxiety 09/20/2017 11/17/2017 Inactive Zithromax Z-Juan 250 mg tablet RxNorm: 463356 1 Tablet(s) PO UD 09/20/2017 12/28/2017 Inactive Zithromax Z-Juan 250 mg tablet RxNorm: 191468 1 Tablet(s) PO UD 09/14/2017 09/19/2017 Inactive amlodipine 10 mg tablet RxNorm: 621276 1 Tablet(s) PO daily 08/24/2017 08/18/2018 Inactive clonidine HCl 0.1 mg tablet RxNorm: 185504 1/2 Tablet(s) PO BID 08/24/2017 12/28/2017 Inactive erythromycin 5 mg/gram (0.5 %) eye ointment RxNorm: 855061 1 Gram(s) ophthalmic (eye) QID left eye cyst 08/24/2017 09/06/2017 Inactive losartan 100 mg tablet RxNorm: 842619 1 Tablet(s) PO daily for high blood pressure 08/16/2017 08/10/2018 Inactive metoprolol tartrate 50 mg tablet RxNorm: 448516 1/2 Tablet(s) PO BID 07/26/2017 12/28/2017 Inactive clonidine HCl 0.1 mg tablet RxNorm: 924899 1/2 Tablet(s) PO BID 07/26/2017 08/23/2017 Inactive metoprolol tartrate 50 mg tablet RxNorm: 044438 1 Tablet(s) PO BID 07/21/2017 07/25/2017 Inactive amlodipine 10 mg tablet RxNorm: 713999 1 TABLET(S) PO DAILY 06/29/2017 08/23/2017 Inactive Lipitor 10 mg tablet RxNorm: 488409 1 Tablet(s) PO QPM 05/27/2017 12/28/2017 Inactive OKAY TO DISPENSE GENERIC alprazolam 0.5 mg tablet RxNorm: 437576 1 Tablet(s) PO TID as needed anxiety 05/18/2017 08/15/2017 Inactive hydrochlorothiazide 12.5 mg tablet RxNorm: 986157 1 Tablet(s) PO daily 04/22/2017 05/21/2017 Inactive hydrochlorothiazide 12.5 mg tablet RxNorm: 927813 1 Tablet(s) PO daily 04/22/2017 04/21/2017 Inactive Cipro 500 mg tablet RxNorm: 969791 1 Tablet(s) PO BID 04/16/2017 04/22/2017 Inactive Zofran 4 mg tablet RxNorm: 954407 1 Tablet(s) PO BID as needed nausea and vomitting 04/15/2017 04/19/2017 Inactive Lipitor 10 mg tablet RxNorm: 295775 1 Tablet(s) PO QPM 03/30/2017 05/26/2017 Inactive OKAY TO DISPENSE GENERIC Kenalog 40 mg/mL suspension for injection RxNorm: 5766829 1 Milliliter(s) Inj 03/16/2017 03/16/2017 Inactive doxazosin 4 mg tablet RxNorm: 470130 1.5 Tablet(s) PO BID 03/16/2017 05/02/2017 Inactive prednisone 10 mg tablets in a dose pack RxNorm: 228470 Tablet(s) take dose pack as directed PO take with food 03/16/2017 05/23/2017 Inactive Kenalog 40 mg/mL suspension for injection RxNorm: 2381859 Milliliter(s) Inj 03/12/2017 03/12/2017 Inactive Zithromax Z-Juan 250 mg tablet RxNorm: 738759 1 Tablet(s) PO daily 03/11/2017 03/10/2017 Inactive zpack as directed Zithromax Z-Juan 250 mg tablet RxNorm: 697363 1 Tablet(s) PO daily 03/11/2017 03/15/2017 Inactive zpack as directed doxazosin 4 mg tablet RxNorm: 971122 1.5 Tablet(s) PO BID 02/12/2017 03/15/2017 Inactive fluticasone 50 mcg/actuation nasal spray,suspension RxNorm: 6248987 1 SPRAY NASAL BID 02/05/2017 05/05/2018 Inactive metoprolol tartrate 75 mg tablet RxNorm: 2023340 1 Tablet(s) PO BID 01/29/2017 07/19/2017 Inactive metoprolol tartrate 75 mg tablet RxNorm: 1694099 1 Tablet(s) PO BID 01/29/2017 01/28/2017 Inactive doxazosin 4 mg tablet RxNorm: 375230 1 Tablet(s) PO BID 01/20/2017 02/11/2017 Inactive pantoprazole 40 mg tablet,delayed release RxNorm: 806619 1 Tablet(s) PO daily 12/24/2016 01/19/2017 Inactive pantoprazole 40 mg tablet,delayed release RxNorm: 011250 1 Tablet(s) PO daily 12/24/2016 12/23/2016 Inactive alprazolam 0.5 mg tablet RxNorm: 628026 1 Tablet(s) PO TID as needed anxiety 12/03/2016 04/01/2017 Inactive fluticasone 50 mcg/actuation nasal spray,suspension RxNorm: 6754101 1 [place] NASAL BID 11/25/2016 12/24/2016 Inactive Dexilant 60 mg capsule, delayed release RxNorm: 120978 1 Capsule(s) PO daily 11/25/2016 11/24/2016 Inactive fluticasone 50 mcg/actuation nasal spray,suspension RxNorm: 3652346 1 [place] NASAL BID 11/25/2016 11/24/2016 Inactive fluticasone 50 mcg/actuation nasal spray,suspension RxNorm: 2561179 1 [place] NASAL BID 11/25/2016 11/24/2016 Inactive Dexilant 60 mg capsule, delayed release RxNorm: 916787 1 Capsule(s) PO daily 11/25/2016 12/23/2016 Inactive ProAir RespiClick 90 mcg/actuation breath activated RxNorm: 8174617 1 INH bid and QID as needed 11/19/2016 05/17/2017 Inactive Please send STAT Flonase Allergy Relief 50 mcg/actuation nasal spray,suspension RxNorm: 8679298 1 [place] NASAL BID 11/19/2016 11/24/2016 Inactive glimepiride 4 mg tablet RxNorm: 059477 1 Tablet(s) PO daily 11/19/2016 11/13/2017 Inactive metoprolol tartrate 50 mg tablet RxNorm: 762682 1 Tablet(s) PO BID 11/19/2016 01/28/2017 Inactive Flonase Allergy Relief 50 mcg/actuation nasal spray,suspension RxNorm: 6162378 1 [place] NASAL BID 11/17/2016 11/18/2016 Inactive metoprolol tartrate 50 mg tablet RxNorm: 037657 1 Tablet(s) PO BID 11/17/2016 11/18/2016 Inactive ProAir RespiClick 90 mcg/actuation breath activated RxNorm: 0227466 1 INH bid and QID as needed 11/17/2016 11/16/2016 Inactive glimepiride 4 mg tablet RxNorm: 929789 1 Tablet(s) PO daily 11/17/2016 11/18/2016 Inactive ProAir RespiClick 90 mcg/actuation breath activated RxNorm: 0074599 1 INH bid and QID as needed 11/17/2016 11/18/2016 Inactive Please send STAT Kenalog 40 mg/mL suspension for injection RxNorm: 3805196 1 Milliliter(s) Inj 11/05/2016 11/05/2016 Inactive azithromycin 250 mg tablet RxNorm: 494580 Tablet(s) PO 2 tabs on day #1, then daily x 4 days 11/05/2016 12/23/2016 Inactive doxazosin 4 mg tablet RxNorm: 993528 1 Tablet(s) PO QPM 10/02/2016 01/19/2017 Inactive doxazosin 4 mg tablet RxNorm: 076208 1 Tablet(s) PO QPM 09/29/2016 10/01/2016 Inactive doxazosin 4 mg tablet RxNorm: 603792 1 Tablet(s) PO QPM 09/21/2016 09/28/2016 Inactive Cipro 500 mg tablet RxNorm: 441897 1 Tablet(s) PO BID 09/18/2016 09/17/2016 Inactive Cipro 500 mg tablet RxNorm: 552448 1 Tablet(s) PO BID 09/18/2016 09/24/2016 Inactive losartan 100 mg tablet RxNorm: 175401 1 Tablet(s) PO daily for high blood pressure 09/16/2016 09/15/2016 Inactive alprazolam 0.5 mg tablet RxNorm: 976229 1 Tablet(s) PO TID as needed anxiety 09/16/2016 11/14/2016 Inactive losartan 100 mg tablet RxNorm: 688660 1 Tablet(s) PO daily for high blood pressure 09/16/2016 08/15/2017 Inactive amlodipine 10 mg tablet RxNorm: 822993 1 Tablet(s) PO daily 08/03/2016 06/28/2017 Inactive Zyrtec 10 mg tablet RxNorm: 8981050 1 Tablet(s) PO daily 08/03/2016 09/15/2016 Inactive losartan 25 mg tablet RxNorm: 625378 1 Tablet(s) PO daily 07/08/2016 09/15/2016 Inactive Lipitor 10 mg tablet RxNorm: 908673 1 Tablet(s) PO QPM 07/08/2016 07/17/2016 Inactive OKAY TO DISPENSE GENERIC Lipitor 10 mg tablet RxNorm: 307990 1 Tablet(s) PO QPM 07/06/2016 07/07/2016 Inactive OKAY TO DISPENSE GENERIC losartan 25 mg tablet RxNorm: 454120 1 Tablet(s) PO daily 07/06/2016 07/07/2016 Inactive meclizine 25 mg tablet RxNorm: 477103 1 Tablet(s) PO TID as needed No Start Date Active Parafon Forte DSC 500 mg tablet RxNorm: 453853 1 Tablet(s) PO QID No Start Date Active Pazeo 0.7 % eye drops RxNorm: 5135144 Drop(s) ophthalmic (eye) as needed dry eyes No Start Date Active Zithromax Z-Juan 250 mg tablet RxNorm: 672093 1 Tablet(s) PO UD No Start Date 09/13/2017 Inactive glimepiride 4 mg tablet RxNorm: 273277 1 Tablet(s) PO daily No Start Date 11/16/2016 Inactive metoprolol tartrate 100 mg tablet RxNorm: 892508 1 Tablet(s) PO BID No Start Date 07/21/2017 Inactive naproxen 500 mg tablet RxNorm: 100752 1 Tablet(s) PO BID No Start Date 03/23/2017 Inactive amlodipine 5 mg tablet RxNorm: 910776 1 Tablet(s) PO daily No Start Date 08/02/2016 Inactive metoprolol tartrate 50 mg tablet RxNorm: 325064 1 Tablet(s) PO BID No Start Date 11/16/2016 Inactive Medication Administered Medication Codes Instructions Start Date Status Kenalog 40 mg/mL suspension for injection RxNorm: 1122325 1Milliliter 10/12/2018 Active Kenalog 40 mg/mL suspension for injection RxNorm: 2227777 1Milliliter 03/16/2017 No longer Active Kenalog 40 mg/mL suspension for injection RxNorm: 5909156 Millil[place] 03/12/2017 No longer Active Kenalog 40 mg/mL suspension for injection RxNorm: 2614420 1Milliliter 11/05/2016 No longer Active Immunizations Vaccine [...] Lipid Ord30 C/HDL 3.1 Ratio 08/18/2018 Microalbumin Lna539 MicroAlb 7.5 mg/dL 08/18/2018 Cbc With Differential [...] 29.6 pg 08/18/2018 Cbc With Differential Ord2 [place]% 10.6 % 08/18/2018 Cbc With Differential Ord2 [...] 1.69 K/ul 08/18/2018 Cbc With Differential Ord2 [place] ABS# 0.6 K/ul 08/18/2018 Cbc With Differential Ord2 Eos ABS# 0.3 K/ul 08/18/2018 Cbc With Differential Ord2 Baso ABS# 0.0 K/ul 08/18/2018 Comp Metabolic Hki006 NA 137 mEq/L 08/18/2018 Comp Metabolic Als489 K 3.8 mEq/L 08/18/2018 Comp Metabolic Vmc216 CL 103 mEq/L 08/18/2018 Comp Metabolic Okg596 CO2 26.0 mEq/L 08/18/2018 Comp Metabolic Tsz776 ANION GAP 12 08/18/2018 Comp Metabolic Yjd263 GLUCOSE 110 mg/dL 08/18/2018 Comp Metabolic Jmz841 Creat 1.2 mg/dL 08/18/2018 Comp Metabolic Oqp509 eGFR 47 ml/min/1.73m2 08/18/2018 Comp Metabolic Rlp917 BUN 25 mg/dL 08/18/2018 Comp Metabolic Lou790 B/C Ratio 21.0 Ratio 08/18/2018 Comp Metabolic Jol088 CALCIUM 9.4 mg/dL 08/18/2018 Comp Metabolic Nyz710 ALK PHOS 99 U/L 08/18/2018 Comp Metabolic Udq015 AST(SGOT) 31 U/L 08/18/2018 Comp Metabolic Hwv062 ALT(SGPT) 27 U/L 08/18/2018 Comp Metabolic Egw402 BILI T 0.7 mg/dL 08/18/2018 Comp Metabolic Wnt783 ALBUMIN 4.2 g/dL 08/18/2018 Comp Metabolic Haj437 TPRO 6.7 g/dL 08/18/2018 Comp Metabolic Gsf074 GLOB 2.5 g/dL 08/18/2018 Comp Metabolic Equ709 A/G Ratio 1.7 Ratio 08/18/2018 Comp Metabolic Hog310 Osmo 279 mOsmo 08/18/2018 %Hba1C Tqh469 % HbA1c 31348- 6 6.1 % 08/18/2018 %Hba1C Tqe844 Gluc Ave 128 mg/dL 08/18/2018 Tsh Ord6 TSH (3rd IS) 3.93 uIU/mL 08/18/2018 Lipid Ord30 CHOL 146 mg/dL 04/15/2018 Lipid Ord30 HDL 62.0 mg/dl 04/15/2018 Lipid Ord30 TRIG 88 mg/dL 04/15/2018 Lipid Ord30 LDL 66 mg/dL 04/15/2018 Lipid Ord30 C/HDL 2.4 Ratio 04/15/2018 %Hba1C Xzj622 % HbA1c 10995- 6 6.3 % 04/15/2018 %Hba1C Gbw783 Gluc Ave 134 mg/dL 04/15/2018 Cbc With [...] 30.2 pg 04/15/2018 Cbc With Differential Ord2 [place]% 6.8 % 04/15/2018 Cbc With Differential Ord2 [...] 2.10 K/ul 04/15/2018 Cbc With Differential Ord2 [place] ABS# 0.5 K/ul 04/15/2018 Cbc With Differential Ord2 Eos ABS# 0.2 K/ul 04/15/2018 Cbc With Differential Ord2 Baso ABS# 0.0 K/ul 04/15/2018 Comp Metabolic Zdb455 NA 140 mEq/L 04/15/2018 Comp Metabolic Uac997 K 4.3 mEq/L 04/15/2018 Comp Metabolic Tgk945 CL 106 mEq/L 04/15/2018 Comp Metabolic Qzb468 CO2 23.0 mEq/L 04/15/2018 Comp Metabolic Jtf835 ANION GAP 15 04/15/2018 Comp Metabolic Pnn638 GLUCOSE 90 mg/dL 04/15/2018 Comp Metabolic Rbx959 Creat 1.2 mg/dL 04/15/2018 Comp Metabolic Smi333 eGFR 45 ml/min/1.73m2 04/15/2018 Comp Metabolic Vua659 BUN 28 mg/dL 04/15/2018 Comp Metabolic Ehk840 B/C Ratio 22.8 Ratio 04/15/2018 Comp Metabolic Zll623 CALCIUM 9.5 mg/dL 04/15/2018 Comp Metabolic Aig819 ALK PHOS 95 U/L 04/15/2018 Comp Metabolic Qma430 AST(SGOT) 20 U/L 04/15/2018 Comp Metabolic Cpx474 ALT(SGPT) 13 U/L 04/15/2018 Comp Metabolic Due996 BILI T 0.5 mg/dL 04/15/2018 Comp Metabolic Pqb929 ALBUMIN 4.1 g/dL 04/15/2018 Comp Metabolic Ygu232 TPRO 6.6 g/dL 04/15/2018 Comp Metabolic Wyz678 GLOB 2.5 g/dL 04/15/2018 Comp Metabolic Otv158 A/G Ratio 1.6 Ratio 04/15/2018 Comp Metabolic Bki033 Osmo 284 mOsmo 04/15/2018 Comp Metabolic Zsv150 NA 137 mEq/L 02/04/2018 Comp Metabolic Erz590 K 4.0 mEq/L 02/04/2018 Comp Metabolic Twp566 CL 104 mEq/L 02/04/2018 Comp Metabolic Zng694 CO2 27.0 mEq/L 02/04/2018 Comp Metabolic Thh140 ANION GAP 10 02/04/2018 Comp Metabolic Dcl098 GLUCOSE 212 mg/dL 02/04/2018 Comp Metabolic Rnh073 Creat 1.2 mg/dL 02/04/2018 Comp Metabolic Rik858 eGFR 47 ml/min/1.73m2 02/04/2018 Comp Metabolic Lof033 BUN 20 mg/dL 02/04/2018 Comp Metabolic Uje050 B/C Ratio 16.8 Ratio 02/04/2018 Comp Metabolic Brb069 CALCIUM 8.9 mg/dL 02/04/2018 Comp Metabolic Mer100 ALK PHOS 107 U/L 02/04/2018 Comp Metabolic Eun658 AST(SGOT) 17 U/L 02/04/2018 Comp Metabolic Hxs783 ALT(SGPT) 11 U/L 02/04/2018 Comp Metabolic Xer312 BILI T 0.4 mg/dL 02/04/2018 Comp Metabolic Hgk776 ALBUMIN 3.8 g/dL 02/04/2018 Comp Metabolic Iic499 TPRO 6.2 g/dL 02/04/2018 Comp Metabolic Zky937 GLOB 2.4 g/dL 02/04/2018 Comp Metabolic Pas034 A/G Ratio 1.6 Ratio 02/04/2018 Comp Metabolic Ler261 Osmo 283 mOsmo 02/04/2018 %Hba1C Tgj321 % HbA1c 66918- 6 6.3 % 12/30/2017 %Hba1C Moh007 Gluc Ave 134 mg/dL 12/30/2017 Comp Metabolic Fbf070 NA 142 mEq/L 12/30/2017 Comp Metabolic Ufr698 K 4.4 mEq/L 12/30/2017 Comp Metabolic Snm157 CL 103 mEq/L 12/30/2017 Comp Metabolic Tdw110 CO2 31.0 mEq/L 12/30/2017 Comp Metabolic Nfe327 ANION GAP 12 12/30/2017 Comp Metabolic Czv973 GLUCOSE 119 mg/dL 12/30/2017 Comp Metabolic Acv767 Creat 1.4 mg/dL 12/30/2017 Comp Metabolic Afv403 eGFR 41 ml/min/1.73m2 12/30/2017 Comp Metabolic Lbd274 BUN 27 mg/dL 12/30/2017 Comp Metabolic Uyh282 B/C Ratio 20.0 Ratio 12/30/2017 Comp Metabolic Frx850 CALCIUM 9.9 mg/dL 12/30/2017 Comp Metabolic Iml627 ALK PHOS 106 U/L 12/30/2017 Comp Metabolic Sai923 AST(SGOT) 20 U/L 12/30/2017 Comp Metabolic Jik483 ALT(SGPT) 13 U/L 12/30/2017 Comp Metabolic Jnf044 BILI T 0.7 mg/dL 12/30/2017 Comp Metabolic Zkq396 ALBUMIN 4.2 g/dL 12/30/2017 Comp Metabolic Wqx271 TPRO 6.7 g/dL 12/30/2017 Comp Metabolic Gfp423 GLOB 2.6 g/dL 12/30/2017 Comp Metabolic Qou556 A/G Ratio 1.6 Ratio 12/30/2017 Comp Metabolic Grw283 Osmo 289 mOsmo 12/30/2017 Lipid Ord30 CHOL 167 mg/dL 12/30/2017 Lipid Ord30 HDL 63.0 mg/dl 12/30/2017 Lipid Ord30 TRIG 89 mg/dL 12/30/2017 Lipid Ord30 LDL 86 mg/dL 12/30/2017 Lipid Ord30 C/HDL 2.7 Ratio 12/30/2017 Urine Culture Ucult Preliminary NO Growth Day 1 04/17/2017 Urine Culture Ucult Complete NO Growth Day 2 04/17/2017 Comp Metabolic Oda652 NA 143 mEq/L 04/15/2017 Comp Metabolic Fdf177 K 4.6 mEq/L 04/15/2017 Comp Metabolic Afi391 CL 110 mEq/L 04/15/2017 Comp Metabolic Ouk543 CO2 30.0 mEq/L 04/15/2017 Comp Metabolic Xde010 ANION GAP 8 04/15/2017 Comp Metabolic Msa614 GLUCOSE 159 mg/dL 04/15/2017 Comp Metabolic Czn424 Creat 1.1 mg/dL 04/15/2017 Comp Metabolic Poo582 eGFR 54 ml/min/1.73m2 04/15/2017 Comp Metabolic Qty091 BUN 27 mg/dL 04/15/2017 Comp Metabolic Bri750 B/C Ratio 25.7 Ratio 04/15/2017 Comp Metabolic Fxj449 CALCIUM 9.4 mg/dL 04/15/2017 Comp Metabolic Ujc041 ALK PHOS 93 U/L 04/15/2017 Comp Metabolic Cyv275 AST(SGOT) 19 U/L 04/15/2017 Comp Metabolic Vgp023 ALT(SGPT) 18 U/L 04/15/2017 Comp Metabolic Ano322 BILI T 0.6 mg/dL 04/15/2017 Comp Metabolic Mnb086 ALBUMIN 3.9 g/dL 04/15/2017 Comp Metabolic Yct133 TPRO 6.5 g/dL 04/15/2017 Comp Metabolic Sde127 GLOB 2.6 g/dL 04/15/2017 Comp Metabolic Hfc919 A/G Ratio 1.5 Ratio 04/15/2017 Comp Metabolic Hmy055 Osmo 293 mOsmo 04/15/2017 Tsh Ord6 hTSH II 2.05 uIU/mL 04/15/2017 %Hba1C Lmd817 % HbA1c 09999- 6 6.3 % 04/15/2017 %Hba1C Oxt914 Gluc Ave 134 mg/dL 04/15/2017 Cbc With [...] 22.4 % 04/15/2017 Cbc With Differential Ord2 [place]% 6.9 % 04/15/2017 Cbc With Differential Ord2 [...] 1.58 K/ul 04/15/2017 Cbc With Differential Ord2 [place] ABS# 0.5 K/ul 04/15/2017 Cbc With Differential [...] Ord28 U-Com Culture to follow 04/15/2017 %Hba1C Oub556 % HbA1c 93795- 6 5.8 % 01/07/2017 %Hba1C Bwj086 Gluc Ave 120 mg/dL 01/07/2017 Urine Culture Ucult Preliminary NO Growth Day 1 09/21/2016 Urine Culture Ucult Complete NO Growth Day 2 09/21/2016 %Hba1C Pvp848 % HbA1c 18881- 6 6.0 % 09/17/2016 %Hba1C Udc431 Gluc Ave 126 mg/dL 09/17/2016 Comp Metabolic Zcm655 NA 140 mEq/L 09/17/2016 Comp Metabolic Ymu363 K 4.1 mEq/L 09/17/2016 Comp Metabolic Euc061 CL 105 mEq/L 09/17/2016 Comp Metabolic Mar878 CO2 29.0 mEq/L 09/17/2016 Comp Metabolic Cdh974 ANION GAP 10 09/17/2016 Comp Metabolic Gvr398 GLUCOSE 89 mg/dL 09/17/2016 Comp Metabolic Mkt601 Creat 0.9 mg/dL 09/17/2016 Comp Metabolic Fod640 eGFR 65 ml/min/1.73m2 09/17/2016 Comp Metabolic Umi143 BUN 20 mg/dL 09/17/2016 Comp Metabolic Fif221 B/C Ratio 22.2 Ratio 09/17/2016 Comp Metabolic Usj115 CALCIUM 9.3 mg/dL 09/17/2016 Comp Metabolic Bkh897 ALK PHOS 107 U/L 09/17/2016 Comp Metabolic Uyu417 AST(SGOT) 22 U/L 09/17/2016 Comp Metabolic Pse180 ALT(SGPT) 15 U/L 09/17/2016 Comp Metabolic Khx211 BILI T 0.7 mg/dL 09/17/2016 Comp Metabolic Ztr232 ALBUMIN 4.0 g/dL 09/17/2016 Comp Metabolic Gdi466 TPRO 6.8 g/dL 09/17/2016 Comp Metabolic Ems492 GLOB 2.8 g/dL 09/17/2016 Comp Metabolic Atd156 A/G Ratio 1.4 Ratio 09/17/2016 Comp Metabolic Oir517 Osmo 281 mOsmo 09/17/2016 Microalbumin Vlk657 MicroAlb 44.3 mg/dL 09/17/2016 Tsh Ord6 hTSH [...] 25.6 % 09/17/2016 Cbc With Differential Ord2 [place]% 8.1 % 09/17/2016 Cbc With Differential Ord2 [...] 1.78 K/ul 09/17/2016 Cbc With Differential Ord2 [place] ABS# 0.6 K/ul 09/17/2016 Cbc With Differential [...] CPT-4: J3301 10/12/2018 THER/PROPH/DIAG INJ SC/IM CPT-4: 83420 10/12/2018 PPPS, SUBSEQ VISIT CPT- 4: G0439 09/06/2018 URINALYSIS NONAUTO W/O SCOPE CPT-4: 68397 12/29/2017 PPPS, SUBSEQ VISIT CPT- 4: G0439 03/30/2017 THER/PROPH/DIAG INJ SC/IM CPT-4: 08226 03/16/2017 TRIAMCINOLONE ACET INJ NOS CPT-4: J3301 03/16/2017 THER/PROPH/DIAG INJ SC/IM CPT-4: 22269 03/12/2017 TRIAMCINOLONE ACET INJ NOS CPT-4: J3301 03/12/2017 THER/PROPH/DIAG INJ SC/IM CPT-4: 00237 11/05/2016 TRIAMCINOLONE ACET INJ NOS CPT-4: J3301 11/05/2016 URINALYSIS NONAUTO W/O SCOPE CPT-4: 85450 09/18/2016 Vital Signs Date Vital 10/12/2018 Blood Pressure 1: 142/76 Code: 8480-6 BMI: 30.1 Code: 20101-1 Heart Rate 1: 83 bpm Height: 5'7" SpO2: 98% Weight: 192 lbs 09/06/2018 Blood Pressure 1: 142/66 Code: 8480-6 BMI: 30.9 Code: 59467-0 Heart Rate 1: 64 bpm Height: 5'7" SpO2: 98% Waist Measure (cm): 99 cm Weight: 197 lbs 08/16/2018 Blood Pressure 1: 140/70 Code: 8480-6 BMI: 34.4 Code: 70631-9 Heart Rate 1: 63 bpm Height: 5'7" SpO2: 95% Weight: 219 lbs 14 oz 04/12/2018 Blood Pressure 1: 160/70 Code: 8480-6 BMI: 33.0 Code: 35770-5 Heart Rate 1: 82 bpm Height: 5'7" SpO2: 95% Weight: 211 lbs 01/20/2018 Blood Pressure 1: 152/66 Code: 8480-6 BMI: 31.8 Code: 84291-1 Heart Rate 1: 52 bpm Height: 5'7" SpO2: 98% Temperature: 36.3 (C) / 97.3 (F) Weight: 203 lbs 12/29/2017 Blood Pressure 1: 168/72 Code: 8480-6 BMI: 32.1 Code: 40695-7 Heart Rate 1: 63 bpm Height: 5'7" SpO2: 98% Weight: 205 lbs 08/24/2017 Blood Pressure 1: 150/70 Code: 8480-6 Blood Pressure 1: 186/70 Code: 8480-6 BMI: 31.8 Code: 72767-6 Heart Rate 1: 53 bpm Height: 5'7" SpO2: 98% Weight: 203 lbs 07/26/2017 Blood Pressure 1: 206/78 Code: 8480-6 Blood Pressure 2: 210/84 Code: 8480-6 BMI: 32.0 Code: 85994-7 Heart Rate 1: 49 bpm Height: 5'7" SpO2: 97% Weight: 204 lbs 07/20/2017 Blood Pressure 1: 148/82 Code: 8480-6 Heart Rate 1: 90 bpm SpO2: 98% 05/27/2017 Blood Pressure 1: 142/72 Code: 8480-6 BMI: 30.5 Code: 27980-3 Heart Rate 1: 97 bpm Height: 5'7" [...] 1: 148/70 Code: 8480-6 BMI: 30.4 Code: 29369-4 Heart Rate 1: 54 bpm Height: 5'7" SpO2: 97% Weight: 194 lbs 03/30/2017 BMI: 33.2 Code: 74238-6 Height: 5'7" Weight: 212 lbs 03/16/2017 Blood Pressure 1: 140/80 Code: 8480-6 BMI: 34.0 Code: 91930-9 Heart Rate 1: 70 bpm Height: 5'7" SpO2: 95% Weight: 217 lbs 03/12/2017 Blood Pressure 1: 142/80 Code: 8480-6 BMI: 34.0 Code: 26761-9 Heart Rate 1: 76 bpm Height: 5'7" SpO2: 92% Weight: 217 lbs 02/17/2017 Blood Pressure 1: 162/64 Code: 8480-6 BMI: 32.9 Code: 24104-8 Heart Rate 1: 59 bpm Height: 5'7" SpO2: 97% Weight: 210 lbs 01/20/2017 Blood Pressure 1: 162/74 Code: 8480-6 BMI: 32.9 Code: 75541-5 Heart Rate 1: 56 bpm Height: 5'7" SpO2: 98% Weight: 210 lbs 11/17/2016 Blood Pressure 1: 156/60 Code: 8480-6 BMI: 34.8 Code: 15587-8 Heart Rate 1: 63 bpm Height: 5'7" SpO2: 96% Weight: 222 lbs 11/05/2016 Blood Pressure 1: 160/68 Code: 8480-6 BMI: 34.5 Code: 15744-6 Heart Rate 1: 66 bpm Height: 5'7" SpO2: 97% Temperature: 36.9 (C) / 98.5 (F) Weight: 220 lbs 09/21/2016 Blood Pressure 1: 166/72 Code: 8480-6 Blood Pressure 1: 180/72 Code: 8480-6 BMI: 32.1 Code: 78491-5 Heart Rate 1: 57 bpm Height: 5'7" SpO2: 98% Weight: 205 lbs 09/16/2016 Blood Pressure 1: 168/70 Code: 8480-6 Heart Rate 1: 49 bpm SpO2: 95% 08/03/2016 Blood Pressure 1: 162/70 Code: 8480-6 BMI: 32.0 Code: 36543-3 Heart Rate 1: 43 bpm Height: 5'7" SpO2: 98% Weight: 204 lbs 07/06/2016 Blood Pressure 1: 170/86 Code: 8480-6 BMI: 32.0 Code: 12750-0 Heart Rate 1: 48 bpm Height: 5'7" [...] data Encounters Encounter Performer Location Codes Date 15319 EST. PATIENT, LEVEL IV Diagnosis: Other acute sinusitis[ICD10: J01.80] Diagnosis: Other allergic rhinitis[ICD10: J30.89] [facility] CPT- 4: 85926 10/12/2018 ([id number]) [id number] EST. PATIENT, LEVEL IV Diagnosis: Essential (primary) hypertension[ICD10: I10] Diagnosis: Type 2 diabetes mellitus without complications[ICD10: E11.9] Diagnosis: Mixed hyperlipidemia[ICD10: E78.2] Fifi Camejo MD, [facility] CPT- 4: 79684 08/16/2018 ([id number]) [id number] EST. PATIENT, LEVEL IV Diagnosis: Type 2 diabetes mellitus without complications[ICD10: E11.9] Diagnosis: Mixed hyperlipidemia[ICD10: E78.2] Diagnosis: Essential (primary) hypertension[ICD10: I10] Diagnosis: Dysuria[ICD10: R30.0] Diagnosis: Pain in left foot[ICD10: M79.672] Fifi Camejo MD, [facility] CPT- 4: 10705 04/12/2018 ([id number]) 77749 EST. PATIENT, LEVEL III Diagnosis: Otalgia, bilateral[ICD10: H92.03] Diagnosis: Other allergic rhinitis[ICD10: J30.89] Yuridia Camejo MD, [facility] CPT-4: 05855 01/20/2018 ([id number]) 97056 EST. PATIENT, LEVEL IV Diagnosis: Type 2 diabetes mellitus without complications[ICD10: E11.9] Diagnosis: Mixed hyperlipidemia[ICD10: E78.2] Diagnosis: Essential (primary) hypertension[ICD10: I10] Diagnosis: Dysuria[ICD10: R30.0] Fifi Camejo MD, [facility] CPT-4: 99934 12/29/2017 ([id number]) 46438 EST. PATIENT, LEVEL IV Diagnosis: Essential (primary) hypertension[ICD10: I10] Diagnosis: Cysts of left upper eyelid[ICD10: H02.824] Diagnosis: Pain in left foot[ICD10: M79.672] Fifi Camejo MD, [facility] CPT- 4: 68703 08/24/2017 ([id number]) 34261 EST. PATIENT, LEVEL III Diagnosis: Essential (primary) hypertension[ICD10: I10] Fifi Camejo MD, [facility] CPT-4: 43165 07/26/2017 ([id number]) Miscellaneous no charge Diagnosis: Essential (primary) hypertension[ICD10: I10] Fifi Camejo MD [facility] CPT-4: 32463 07/20/2017 [id number] EST. PATIENT, LEVEL III Diagnosis: Otalgia, bilateral[ICD10: H92.03] Diagnosis: Dizziness and giddiness[ICD10: R42] Diagnosis: Mixed hyperlipidemia[ICD10: E78.2] Krysta Camejo MD [facility] CPT-4: 26599 05/27/2017 ([id number]) Miscellaneous no charge Diagnosis: Essential (primary) hypertension[ICD10: I10] Krysta Camejo MD [facility] CPT-4: 69312 05/07/2017 ([id number]) 98353 EST. PATIENT, LEVEL IV Diagnosis: Otalgia, bilateral[ICD10: H92.03] Diagnosis: Dizziness and giddiness[ICD10: R42] Diagnosis: Orthostatic hypotension[ICD10: I95.1] Fifi Camejo MD [facility] CPT-4: 76879 05/03/2017 72899 EST. PATIENT, LEVEL IV Diagnosis: Essential (primary) hypertension[ICD10: I10] Diagnosis: Type 2 diabetes mellitus without complications[ICD10: E11.9] Diagnosis: Gastro-esophageal reflux disease without esophagitis[ICD10: K21.9] Diagnosis: Dizziness and giddiness[ICD10: R42] Diagnosis: Dysuria[ICD10: R30.0] Diagnosis: Other malaise[ICD10: R53.81] Krysta Camejo MD [facility] CPT-4: 50180 04/15/2017 ([id number]) 78039 EST. PATIENT, LEVEL IV Diagnosis: Type 2 diabetes mellitus without complications[ICD10: E11.9] Diagnosis: Otalgia, bilateral[ICD10: H92.03] Diagnosis: Essential (primary) hypertension[ICD10: I10] Diagnosis: Other allergic rhinitis[ICD10: J30.89] Fifi Camejo MD [facility] CPT-4: 83260 03/16/2017 24594 EST. PATIENT, LEVEL IV Diagnosis: Other acute sinusitis[ICD10: J01.80] Diagnosis: Acute suppurative otitis media without spontaneous rupture of ear drum, bilateral[ICD10: H66.003] Diagnosis: Other allergic rhinitis[ICD10: J30.89] Krysta Camejo MD [facility] CPT- 4: 10859 03/12/2017 ([id number]) 67600 EST. PATIENT, LEVEL IV Diagnosis: Essential (primary) hypertension[ICD10: I10] Diagnosis: Type 2 diabetes mellitus without complications[ICD10: E11.9] Fifi Camejo MD [facility] CPT-4: 26826 02/17/2017 ([id number]) 46757 EST. PATIENT, LEVEL IV Diagnosis: Essential (primary) hypertension[ICD10: I10] Diagnosis: Type 2 diabetes mellitus without complications[ICD10: E11.9] Fifi Caemjo MD [facility] CPT-4: 37058 01/20/2017 ([id number]) 16514 EST. PATIENT, LEVEL IV Diagnosis: Essential (primary) hypertension[ICD10: I10] Diagnosis: Type 2 diabetes mellitus without complications[ICD10: E11.9] Diagnosis: Gastro-esophageal reflux disease without esophagitis[ICD10: K21.9] Fifi Camejo MD [facility] CPT-4: 26692 11/17/2016 ([id number]) 32600 EST. PATIENT, LEVEL III Diagnosis: Acute bronchitis due to other specified organisms[ICD10: J20.8] Diagnosis: Cough[ICD10: R05] Fifi Camejo MD [facility] CPT-4: 74325 11/05/2016 ([id number]) 96442 EST. PATIENT, LEVEL IV Diagnosis: Essential (primary) hypertension[ICD10: I10] Diagnosis: Type 2 diabetes mellitus without complications[ICD10: E11.9] Ffii Camejo MD [facility] CPT-4: 96294 09/21/2016 ([id number]) Miscellaneous no charge Diagnosis: Essential (primary) hypertension[ICD10: I10] Fifi Camejo MD [facility] CPT-4: 52060 09/16/2016 ([id number]) 40699 EST. PATIENT, LEVEL III Diagnosis: Type 2 diabetes mellitus without complications[ICD10: E11.9] Diagnosis: Essential (primary) hypertension[ICD10: I10] Fifi Camejo MD [facility] CPT-4: 04459 08/03/2016 ([id number]) OFFICE VISIT, NEW - LEVEL 4 Diagnosis: Essential (primary) hypertension[ICD10: I10] Diagnosis: Type 2 diabetes mellitus without complications[ICD10: E11.9] Diagnosis: Carpal tunnel syndrome, left upper limb[ICD10: G56.02] Diagnosis: Right upper quadrant pain[ICD10: R10.11] Diagnosis: Mixed hyperlipidemia[ICD10: E78.2] Fifi Camejo MD, [facility] CPT- 4: 63535 07/06/2016 Plan of Care Planned Activity Notes [...] in the nasal steroid allergy spray. 10/12/2018 Patient Education: Patient Medication Summary Completed [...] care surrogate. 09/06/2018 Appointment: Yuridia Walsh WPtel: [address] [place], [place] [phone] [facility] - Annual Wellness Visit 09/06/2018 Patient Education: Patient Medication Summary Completed 09/06/2018 Appointment: Kamari Walshie WPtel: [phone] [phone] [facility] - Annual Wellness Visit 08/29/2018 Visit Plan: [...] dications. 08/16/2018 App[facility]ment[phone] [facility] (15 min) Moderate 08/16/2018 Patient Education: [...] foot. 04/12/2018 App[facility]ment: [phone] [facility] (15 min) Moderate 04/12/2018 Patient Education: Patient Medication Summary Completed 04/12/2018 Care Plan: Referral Order SNOMED-CT : 952500910 Pending 04/12/2018 Patient Education: Patient Medication Summary [...] spray. 01/20/2018 App[facility]ment[facility] [phone] [phone] [place] (15 min) Moderate 01/20/2018 Patient [...] controlled. 12/29/2017 Appointment: Fifi Camejo WPtel: [phone] [facility] (15 min) Moderate 12/29/2017 Patient Education: [...] - recommended referral to Dr. Chago davis [place] 08/24/2017 Appointment: [phone] [facility] (15 min) Moderate 08/24/2017 Patient Education: Patient Medication Summary Completed 08/24/2017 Care Plan: Referral Order SNOMED-CT : 898640064 Pending 08/24/2017 Visit Plan: Hypertension - uncontrolled [...] listed above. 07/26/2017 Appointment: Fifi Camejo WPtel: [facility] (15 min) Moderate 07/26/2017 Patient Education: [...] medications. 05/27/2017 Appointment: Krysta Dale WPtel: [phone] [facility] (15 min) Moderate 05/27/2017 Patient Education: Patient Medication Summary Completed 05/27/2017 Appointment: Nurse Visit 05/07/2017 Patient Education: Patient Medication Summary Completed 05/07/2017 Visit Plan: Persistent vergito with bilateral air-fluid levels and ear pain. Pt was seen by Dr. Calvo- she did not like his response to her complaints. I have recommended a referral to ENT in [place] or [place]. I suspect she may need myringotomy tubes. Pt to continue with flonase. Orthostatic hypotension - dc doxazosin. Monitor blood pressures at home. stop the doxazosin meclizine change to 1/2 pill three times a day come back on Wednesday for blood pressure check 05/03/2017 Appointment: Fifi Camejo WPtel: [phone] [facility] (15 min) Moderate 05/03/2017 Patient Education: Patient Medication Summary Completed 05/03/2017 Appointment: [phone] [facility] [place] (15 min) Moderate 04/21/2017 Visit [...] glucose control. 04/15/2017 Appointment: Krysta Dale WPtel: [phone] [facility] (30 min) Complex 04/15/2017 Patient Education: Patient [...] surrogate. 03/30/2017 Appointment: Krysta Dale WPtel: [phone] [facility] [facility] - Annual Wellness Visit 03/30/2017 Patient Education: [...] at home. 03/16/2017 Appointment: [phone] [facility] ([facility] min) Complex 03/16/2017 Patient Education: Patient Medication Summary Completed 03/16/2017 Patient Education: Obesity Completed 03/16/2017 Care Plan: Referral Order SNOMED-CT : [id number] Pending 03/16/2017 Visit Plan: Allergies - chronic [...] acutely worsen. 03/12/2017 Appointment: [phone] [facility] (15 min) Moderate 03/12/2017 Patient Education: [...] 02/17/2017 Appointment: [phone] [facility] (30 min) Complex 02/17/2017 Patient Education: [...] controlled. 01/20/2017 Appointment: [phone] [facility] (30 min) Complex 01/20/2017 Patient Education: [...] dexilant 11/17/2016 Appointment: [phone] [facility] (30 min) Complex 11/17/2016 Patient Education: [...] range. 09/21/2016 Appointment: [phone] [facility] (15 min) Moderate 09/21/2016 Patient Education: [...] time. 08/03/2016 Appointment: Fifi Camejo WPtel: [phone] [facility] (15 min) Moderate 08/03/2016 Patient Education: [...] not improving. 07/06/2016 Appointment: [facility]i [facility]el[phone] [facility] New Patient 07/06/2016 Patient Education: Patient Medication Summary Completed 07/06/2016 Patient Education: Obesity Completed 07/06/2016 Referral: Dr Calvo Referral Completed Referral: Freeman Huff Referral Appointment Requested Referral: External, Ordering Provider Referral Appointment Requested Instructions Comment . Sinusitis - Pt has acute infection [...] monitor your heart rate Consider referral for band scroll saw operator for possible stress test if needed. [...] to assure normal liver response to medications. Nasal spray- use twice daily, one spray [...] change in blood pressure readings at home. TAKE TWO AMLODIPINE - FOR A TOTAL [...] controlled. GERD - gave sample of dexilant take the doxazosin to 4mg twice daily. [...] have recommended a referral to ENT in [place] or [place]. I suspect she may need myringotomy tubes. [...] monitor your heart rate Consider referral for band scroll saw operator for possible stress test if needed. [...] allow for greater blood glucose control. . Hypertension - uncontrolled today in the [...] - recommended referral to Dr. Anders in [place] Decrease doxazosin to 1 pill - write [...] health care surrogate. . Hypertension - uncontrolled - the patient's [...] levels averaging in the 90-110 range. . Hypertension - uncontrolled - the patient's [...]
--- OUTSIDE RECORDS SUMMARY | 2019-03-08 17:09 | XMS REPORT | CCD ---
Author Author Fifi Camejo MD, [facility] Address [address] [place] [address] Phone Care Team Providers Care Manager Collection Name Role Phone PP Unavailable CCM Unavailable Summary Purpose Interface Exchange Insurance Providers Payer name Policy type / Coverage type Covered constitution party ID Effective Begin Date Effective End Date WPS Medicare Part B Medicare Part B [id number] 2018 Unknown FOR LIFE WPS Medicare Part B [id number] Unknown Family history Father Diagnosis Age At Onset Cancer Unknown Brother Diagnosis Age At Onset Diabetes mellitus Type 2 Unknown Heart Attack Unknown Social History Social History Element Codes Description Effective Dates Marital status Unknown Wu 11/05/2016 Number of children Unknown 1 07/06/2016 Employment Unknown Retired 07/06/[address]: 966552468 Never smoker 07/06/[address]: 869495926 Never drinks alcohol 07/06/2016 Allergies, Adverse Reactions, Alerts Substance Reaction Codes Entered Date Inactivated Date Status Protonix hives RxNorm: 962011 09/06/2018 No Inactive Date Active IV DYE, [...] Fill Instructions cefdinir 300 mg capsule RxNorm: 519641 1 Capsule(s) PO BID 10/12/2018 10/21/2018 Active Zithromax Z-Juan 250 mg tablet RxNorm: 209013 1 Tablet(s) PO UD 10/12/2018 10/16/2018 Active zpack as directed glimepiride 4 mg tablet RxNorm: 058048 Tablet(s) 1 TABLET(S) PO DAILY 10/12/2018 No Stop Date Active Tessalon Perles 100 mg capsule RxNorm: 969360 2 Capsule(s) PO TID as needed cough 10/12/2018 10/16/2018 Active Kenalog 40 mg/mL suspension for injection RxNorm: 3700162 1 Milliliter(s) Inj 10/12/2018 10/12/2018 Inactive Zithromax Z-Juan 250 mg tablet RxNorm: 458739 1 Tablet(s) PO UD 08/22/2018 08/26/2018 Inactive zpack as directed clonidine HCl 0.1 mg tablet RxNorm: 392275 1 Tablet(s) PO QAM 08/16/2018 08/10/2019 Active losartan 100 mg tablet RxNorm: 756009 1 TABLET(S) PO DAILY FOR HIGH BLOOD PRESSURE 08/12/2018 No Stop Date Active alprazolam 0.5 mg tablet RxNorm: 790525 1 Tablet(s) PO TID as needed anxiety 06/30/2018 12/26/2018 Active fluticasone 50 mcg/actuation nasal spray,suspension RxNorm: 9510065 USE 1 SPRAY NASALLY TWICE A DAY 05/06/2018 No Stop Date Active clonidine HCl 0.1 mg tablet RxNorm: 376546 1 Tablet(s) PO BID 04/14/2018 08/15/2018 Inactive clonidine HCl 0.1 mg tablet RxNorm: 131991 1 Tablet(s) PO TID 04/12/2018 04/13/2018 Inactive Zithromax Z-Juan 250 mg tablet RxNorm: 198893 1 Tablet(s) PO UD 01/20/2018 08/21/2018 Inactive disregard first rx for 1 - patient needs 3 packs-please dispense generic azithromycin Zithromax Z-Juan 250 mg tablet RxNorm: 978203 1 Tablet(s) PO UD 01/20/2018 01/19/2018 Inactive Zithromax Z-Juan 250 mg tablet RxNorm: 002980 1 Tablet(s) PO UD 01/20/2018 01/19/2018 Inactive disregard first rx for 1 - patient needs 3 packs Zithromax Z-Juan 250 mg tablet RxNorm: 297722 1 Tablet(s) PO UD 01/20/2018 01/19/2018 Inactive atorvastatin 10 mg tablet RxNorm: 059163 1 Tablet(s) PO QPM 12/30/2017 12/24/2018 Active atorvastatin 10 mg tablet RxNorm: 993099 1 Tablet(s) PO QPM 12/30/2017 12/29/2017 Inactive metoprolol tartrate 50 mg tablet RxNorm: 096562 1/2 Tablet(s) PO BID 12/29/2017 12/23/2018 Active clonidine HCl 0.1 mg tablet RxNorm: 058012 1 Tablet(s) PO BID 12/29/2017 04/11/2018 Inactive Lipitor 10 mg tablet RxNorm: 055345 1 Tablet(s) PO QPM 12/29/2017 12/29/2017 Inactive OKAY TO DISPENSE GENERIC alprazolam 0.5 mg tablet RxNorm: 987625 1 Tablet(s) PO TID as needed anxiety 11/18/2017 05/16/2018 Inactive glimepiride 4 mg tablet RxNorm: 731789 1 TABLET(S) PO DAILY 11/15/2017 10/11/2018 Inactive alprazolam 0.5 mg tablet RxNorm: 934126 1 Tablet(s) PO TID as needed anxiety 09/20/2017 11/17/2017 Inactive Zithromax Z-Juan 250 mg tablet RxNorm: 566081 1 Tablet(s) PO UD 09/20/2017 12/28/2017 Inactive Zithromax Z-Juan 250 mg tablet RxNorm: 629414 1 Tablet(s) PO UD 09/14/2017 09/19/2017 Inactive amlodipine 10 mg tablet RxNorm: 577737 1 Tablet(s) PO daily 08/24/2017 08/18/2018 Inactive clonidine HCl 0.1 mg tablet RxNorm: 634363 1/2 Tablet(s) PO BID 08/24/2017 12/28/2017 Inactive erythromycin 5 mg/gram (0.5 %) eye ointment RxNorm: 062593 1 Gram(s) ophthalmic (eye) QID left eye cyst 08/24/2017 09/06/2017 Inactive losartan 100 mg tablet RxNorm: 976636 1 Tablet(s) PO daily for high blood pressure 08/16/2017 08/10/2018 Inactive metoprolol tartrate 50 mg tablet RxNorm: 965342 1/2 Tablet(s) PO BID 07/26/2017 12/28/2017 Inactive clonidine HCl 0.1 mg tablet RxNorm: 431197 1/2 Tablet(s) PO BID 07/26/2017 08/23/2017 Inactive metoprolol tartrate 50 mg tablet RxNorm: 456789 1 Tablet(s) PO BID 07/21/2017 07/25/2017 Inactive amlodipine 10 mg tablet RxNorm: 171274 1 TABLET(S) PO DAILY 06/29/2017 08/23/2017 Inactive Lipitor 10 mg tablet RxNorm: 622429 1 Tablet(s) PO QPM 05/27/2017 12/28/2017 Inactive OKAY TO DISPENSE GENERIC alprazolam 0.5 mg tablet RxNorm: 088849 1 Tablet(s) PO TID as needed anxiety 05/18/2017 08/15/2017 Inactive hydrochlorothiazide 12.5 mg tablet RxNorm: 427669 1 Tablet(s) PO daily 04/22/2017 05/21/2017 Inactive hydrochlorothiazide 12.5 mg tablet RxNorm: 206071 1 Tablet(s) PO daily 04/22/2017 04/21/2017 Inactive Cipro 500 mg tablet RxNorm: 417976 1 Tablet(s) PO BID 04/16/2017 04/22/2017 Inactive Zofran 4 mg tablet RxNorm: 217683 1 Tablet(s) PO BID as needed nausea and vomitting 04/15/2017 04/19/2017 Inactive Lipitor 10 mg tablet RxNorm: 657483 1 Tablet(s) PO QPM 03/30/2017 05/26/2017 Inactive OKAY TO DISPENSE GENERIC Kenalog 40 mg/mL suspension for injection RxNorm: 5915567 1 Milliliter(s) Inj 03/16/2017 03/16/2017 Inactive doxazosin 4 mg tablet RxNorm: 691771 1.5 Tablet(s) PO BID 03/16/2017 05/02/2017 Inactive prednisone 10 mg tablets in a dose pack RxNorm: 816168 Tablet(s) take dose pack as directed PO take with food 03/16/2017 05/23/2017 Inactive Kenalog 40 mg/mL suspension for injection RxNorm: 8784732 Milliliter(s) Inj 03/12/2017 03/12/2017 Inactive Zithromax Z-Juan 250 mg tablet RxNorm: 219941 1 Tablet(s) PO daily 03/11/2017 03/10/2017 Inactive zpack as directed Zithromax Z-Juan 250 mg tablet RxNorm: 324339 1 Tablet(s) PO daily 03/11/2017 03/15/2017 Inactive zpack as directed doxazosin 4 mg tablet RxNorm: 972233 1.5 Tablet(s) PO BID 02/12/2017 03/15/2017 Inactive fluticasone 50 mcg/actuation nasal spray,suspension RxNorm: 8525830 1 SPRAY NASAL BID 02/05/2017 05/05/2018 Inactive metoprolol tartrate 75 mg tablet RxNorm: 7092025 1 Tablet(s) PO BID 01/29/2017 07/19/2017 Inactive metoprolol tartrate 75 mg tablet RxNorm: 0795268 1 Tablet(s) PO BID 01/29/2017 01/28/2017 Inactive doxazosin 4 mg tablet RxNorm: 500836 1 Tablet(s) PO BID 01/20/2017 02/11/2017 Inactive pantoprazole 40 mg tablet,delayed release RxNorm: 895808 1 Tablet(s) PO daily 12/24/2016 01/19/2017 Inactive pantoprazole 40 mg tablet,delayed release RxNorm: 103456 1 Tablet(s) PO daily 12/24/2016 12/23/2016 Inactive alprazolam 0.5 mg tablet RxNorm: 482051 1 Tablet(s) PO TID as needed anxiety 12/03/2016 04/01/2017 Inactive fluticasone 50 mcg/actuation nasal spray,suspension RxNorm: 9004559 1 [place] NASAL BID 11/25/2016 12/24/2016 Inactive Dexilant 60 mg capsule, delayed release RxNorm: 644054 1 Capsule(s) PO daily 11/25/2016 11/24/2016 Inactive fluticasone 50 mcg/actuation nasal spray,suspension RxNorm: 4677385 1 [place] NASAL BID 11/25/2016 11/24/2016 Inactive fluticasone 50 mcg/actuation nasal spray,suspension RxNorm: 0900136 1 [place] NASAL BID 11/25/2016 11/24/2016 Inactive Dexilant 60 mg capsule, delayed release RxNorm: 874462 1 Capsule(s) PO daily 11/25/2016 12/23/2016 Inactive ProAir RespiClick 90 mcg/actuation breath activated RxNorm: 4271616 1 INH bid and QID as needed 11/19/2016 05/17/2017 Inactive Please send STAT Flonase Allergy Relief 50 mcg/actuation nasal spray,suspension RxNorm: 5783253 1 [place] NASAL BID 11/19/2016 11/24/2016 Inactive glimepiride 4 mg tablet RxNorm: 059788 1 Tablet(s) PO daily 11/19/2016 11/13/2017 Inactive metoprolol tartrate 50 mg tablet RxNorm: 382938 1 Tablet(s) PO BID 11/19/2016 01/28/2017 Inactive Flonase Allergy Relief 50 mcg/actuation nasal spray,suspension RxNorm: 1739433 1 [place] NASAL BID 11/17/2016 11/18/2016 Inactive metoprolol tartrate 50 mg tablet RxNorm: 625840 1 Tablet(s) PO BID 11/17/2016 11/18/2016 Inactive ProAir RespiClick 90 mcg/actuation breath activated RxNorm: 6843800 1 INH bid and QID as needed 11/17/2016 11/16/2016 Inactive glimepiride 4 mg tablet RxNorm: 564929 1 Tablet(s) PO daily 11/17/2016 11/18/2016 Inactive ProAir RespiClick 90 mcg/actuation breath activated RxNorm: 4160353 1 INH bid and QID as needed 11/17/2016 11/18/2016 Inactive Please send STAT Kenalog 40 mg/mL suspension for injection RxNorm: 7473715 1 Milliliter(s) Inj 11/05/2016 11/05/2016 Inactive azithromycin 250 mg tablet RxNorm: 307461 Tablet(s) PO 2 tabs on day #1, then daily x 4 days 11/05/2016 12/23/2016 Inactive doxazosin 4 mg tablet RxNorm: 367027 1 Tablet(s) PO QPM 10/02/2016 01/19/2017 Inactive doxazosin 4 mg tablet RxNorm: 100416 1 Tablet(s) PO QPM 09/29/2016 10/01/2016 Inactive doxazosin 4 mg tablet RxNorm: 305567 1 Tablet(s) PO QPM 09/21/2016 09/28/2016 Inactive Cipro 500 mg tablet RxNorm: 327896 1 Tablet(s) PO BID 09/18/2016 09/17/2016 Inactive Cipro 500 mg tablet RxNorm: 277963 1 Tablet(s) PO BID 09/18/2016 09/24/2016 Inactive losartan 100 mg tablet RxNorm: 214303 1 Tablet(s) PO daily for high blood pressure 09/16/2016 09/15/2016 Inactive alprazolam 0.5 mg tablet RxNorm: 970841 1 Tablet(s) PO TID as needed anxiety 09/16/2016 11/14/2016 Inactive losartan 100 mg tablet RxNorm: 945561 1 Tablet(s) PO daily for high blood pressure 09/16/2016 08/15/2017 Inactive amlodipine 10 mg tablet RxNorm: 656406 1 Tablet(s) PO daily 08/03/2016 06/28/2017 Inactive Zyrtec 10 mg tablet RxNorm: 2116630 1 Tablet(s) PO daily 08/03/2016 09/15/2016 Inactive losartan 25 mg tablet RxNorm: 825694 1 Tablet(s) PO daily 07/08/2016 09/15/2016 Inactive Lipitor 10 mg tablet RxNorm: 509061 1 Tablet(s) PO QPM 07/08/2016 07/17/2016 Inactive OKAY TO DISPENSE GENERIC Lipitor 10 mg tablet RxNorm: 040069 1 Tablet(s) PO QPM 07/06/2016 07/07/2016 Inactive OKAY TO DISPENSE GENERIC losartan 25 mg tablet RxNorm: 018397 1 Tablet(s) PO daily 07/06/2016 07/07/2016 Inactive meclizine 25 mg tablet RxNorm: 293353 1 Tablet(s) PO TID as needed No Start Date Active Parafon Forte DSC 500 mg tablet RxNorm: 877536 1 Tablet(s) PO QID No Start Date Active Pazeo 0.7 % eye drops RxNorm: 4809399 Drop(s) ophthalmic (eye) as needed dry eyes No Start Date Active Zithromax Z-Juan 250 mg tablet RxNorm: 243475 1 Tablet(s) PO UD No Start Date 09/13/2017 Inactive glimepiride 4 mg tablet RxNorm: 799590 1 Tablet(s) PO daily No Start Date 11/16/2016 Inactive metoprolol tartrate 100 mg tablet RxNorm: 125539 1 Tablet(s) PO BID No Start Date 07/21/2017 Inactive naproxen 500 mg tablet RxNorm: 925000 1 Tablet(s) PO BID No Start Date 03/23/2017 Inactive amlodipine 5 mg tablet RxNorm: 972318 1 Tablet(s) PO daily No Start Date 08/02/2016 Inactive metoprolol tartrate 50 mg tablet RxNorm: 858056 1 Tablet(s) PO BID No Start Date 11/16/2016 Inactive Medication Administered Medication Codes Instructions Start Date Status Kenalog 40 mg/mL suspension for injection RxNorm: 4397299 1Milliliter 10/12/2018 Active Kenalog 40 mg/mL suspension for injection RxNorm: 0241040 1Milliliter 03/16/2017 No longer Active Kenalog 40 mg/mL suspension for injection RxNorm: 4207284 Milliliter 03/12/2017 No longer Active Kenalog 40 mg/mL suspension for injection RxNorm: 6526846 1Milliliter 11/05/2016 No longer Active Immunizations Vaccine [...] Lipid Ord30 C/HDL 3.1 Ratio 08/18/2018 Microalbumin Ltn204 MicroAlb 7.5 mg/dL 08/18/2018 Cbc With Differential [...] 29.6 pg 08/18/2018 Cbc With Differential Ord2 [place]% 10.6 % 08/18/2018 Cbc With Differential Ord2 [...] 1.69 K/ul 08/18/2018 Cbc With Differential Ord2 [place] ABS# 0.6 K/ul 08/18/2018 Cbc With Differential Ord2 Eos ABS# 0.3 K/ul 08/18/2018 Cbc With Differential Ord2 Baso ABS# 0.0 K/ul 08/18/2018 Comp Metabolic Drd870 NA 137 mEq/L 08/18/2018 Comp Metabolic Oxp328 K 3.8 mEq/L 08/18/2018 Comp Metabolic Uma191 CL 103 mEq/L 08/18/2018 Comp Metabolic Sxj882 CO2 26.0 mEq/L 08/18/2018 Comp Metabolic End361 ANION GAP 12 08/18/2018 Comp Metabolic Akt778 GLUCOSE 110 mg/dL 08/18/2018 Comp Metabolic Tsz995 Creat 1.2 mg/dL 08/18/2018 Comp Metabolic Jqr152 eGFR 47 ml/min/1.73m2 08/18/2018 Comp Metabolic Jbz139 BUN 25 mg/dL 08/18/2018 Comp Metabolic Wce503 B/C Ratio 21.0 Ratio 08/18/2018 Comp Metabolic Lnf282 CALCIUM 9.4 mg/dL 08/18/2018 Comp Metabolic Jun253 ALK PHOS 99 U/L 08/18/2018 Comp Metabolic Suo338 AST(SGOT) 31 U/L 08/18/2018 Comp Metabolic Gxa091 ALT(SGPT) 27 U/L 08/18/2018 Comp Metabolic Fdt151 BILI T 0.7 mg/dL 08/18/2018 Comp Metabolic Rsq292 ALBUMIN 4.2 g/dL 08/18/2018 Comp Metabolic Fer853 TPRO 6.7 g/dL 08/18/2018 Comp Metabolic Dfa152 GLOB 2.5 g/dL 08/18/2018 Comp Metabolic Eow742 A/G Ratio 1.7 Ratio 08/18/2018 Comp Metabolic Rrz006 Osmo 279 mOsmo 08/18/2018 %Hba1C Bda681 % HbA1c 34277- 6 6.1 % 08/18/2018 %Hba1C Edw726 Gluc Ave 128 mg/dL 08/18/2018 Tsh Ord6 TSH (3rd IS) 3.93 uIU/mL 08/18/2018 Lipid Ord30 CHOL 146 mg/dL 04/15/2018 Lipid Ord30 HDL 62.0 mg/dl 04/15/2018 Lipid Ord30 TRIG 88 mg/dL 04/15/2018 Lipid Ord30 LDL 66 mg/dL 04/15/2018 Lipid Ord30 C/HDL 2.4 Ratio 04/15/2018 %Hba1C Vsp947 % HbA1c 02337- 6 6.3 % 04/15/2018 %Hba1C Ocy062 Gluc Ave 134 mg/dL 04/15/2018 Cbc With [...] 30.2 pg 04/15/2018 Cbc With Differential Ord2 [place]% 6.8 % 04/15/2018 Cbc With Differential Ord2 [...] 2.10 K/ul 04/15/2018 Cbc With Differential Ord2 [place] ABS# 0.5 K/ul 04/15/2018 Cbc With Differential Ord2 Eos ABS# 0.2 K/ul 04/15/2018 Cbc With Differential Ord2 Baso ABS# 0.0 K/ul 04/15/2018 Comp Metabolic Uvn635 NA 140 mEq/L 04/15/2018 Comp Metabolic Gfj533 K 4.3 mEq/L 04/15/2018 Comp Metabolic Pti998 CL 106 mEq/L 04/15/2018 Comp Metabolic Kon958 CO2 23.0 mEq/L 04/15/2018 Comp Metabolic Bvb457 ANION GAP 15 04/15/2018 Comp Metabolic Ajw255 GLUCOSE 90 mg/dL 04/15/2018 Comp Metabolic Pqk674 Creat 1.2 mg/dL 04/15/2018 Comp Metabolic Jmt607 eGFR 45 ml/min/1.73m2 04/15/2018 Comp Metabolic Sgy509 BUN 28 mg/dL 04/15/2018 Comp Metabolic Gfe212 B/C Ratio 22.8 Ratio 04/15/2018 Comp Metabolic Zin733 CALCIUM 9.5 mg/dL 04/15/2018 Comp Metabolic Zys206 ALK PHOS 95 U/L 04/15/2018 Comp Metabolic Mcs366 AST(SGOT) 20 U/L 04/15/2018 Comp Metabolic Aww612 ALT(SGPT) 13 U/L 04/15/2018 Comp Metabolic Vwh065 BILI T 0.5 mg/dL 04/15/2018 Comp Metabolic Siz238 ALBUMIN 4.1 g/dL 04/15/2018 Comp Metabolic Lyr255 TPRO 6.6 g/dL 04/15/2018 Comp Metabolic Vqi595 GLOB 2.5 g/dL 04/15/2018 Comp Metabolic Ums579 A/G Ratio 1.6 Ratio 04/15/2018 Comp Metabolic Ops925 Osmo 284 mOsmo 04/15/2018 Comp Metabolic Axw603 NA 137 mEq/L 02/04/2018 Comp Metabolic Lxh934 K 4.0 mEq/L 02/04/2018 Comp Metabolic Qbq121 CL 104 mEq/L 02/04/2018 Comp Metabolic Zxk981 CO2 27.0 mEq/L 02/04/2018 Comp Metabolic Sgf457 ANION GAP 10 02/04/2018 Comp Metabolic Fnx472 GLUCOSE 212 mg/dL 02/04/2018 Comp Metabolic Mir504 Creat 1.2 mg/dL 02/04/2018 Comp Metabolic Unu298 eGFR 47 ml/min/1.73m2 02/04/2018 Comp Metabolic Tdn914 BUN 20 mg/dL 02/04/2018 Comp Metabolic Ebt124 B/C Ratio 16.8 Ratio 02/04/2018 Comp Metabolic Gpf815 CALCIUM 8.9 mg/dL 02/04/2018 Comp Metabolic Jbm622 ALK PHOS 107 U/L 02/04/2018 Comp Metabolic Djr613 AST(SGOT) 17 U/L 02/04/2018 Comp Metabolic Ali995 ALT(SGPT) 11 U/L 02/04/2018 Comp Metabolic Tyz734 BILI T 0.4 mg/dL 02/04/2018 Comp Metabolic Qgq507 ALBUMIN 3.8 g/dL 02/04/2018 Comp Metabolic Xol846 TPRO 6.2 g/dL 02/04/2018 Comp Metabolic Cto127 GLOB 2.4 g/dL 02/04/2018 Comp Metabolic Gqd563 A/G Ratio 1.6 Ratio 02/04/2018 Comp Metabolic Esd717 Osmo 283 mOsmo 02/04/2018 %Hba1C Kdr628 % HbA1c 70605- 6 6.3 % 12/30/2017 %Hba1C Uzu644 Gluc Ave 134 mg/dL 12/30/2017 Comp Metabolic Eai638 NA 142 mEq/L 12/30/2017 Comp Metabolic Jgw553 K 4.4 mEq/L 12/30/2017 Comp Metabolic Mcl108 CL 103 mEq/L 12/30/2017 Comp Metabolic Nho096 CO2 31.0 mEq/L 12/30/2017 Comp Metabolic Atx397 ANION GAP 12 12/30/2017 Comp Metabolic Bbu458 GLUCOSE 119 mg/dL 12/30/2017 Comp Metabolic Qaz114 Creat 1.4 mg/dL 12/30/2017 Comp Metabolic Fyg129 eGFR 41 ml/min/1.73m2 12/30/2017 Comp Metabolic Ujk691 BUN 27 mg/dL 12/30/2017 Comp Metabolic Wht712 B/C Ratio 20.0 Ratio 12/30/2017 Comp Metabolic Dxu176 CALCIUM 9.9 mg/dL 12/30/2017 Comp Metabolic Xil809 ALK PHOS 106 U/L 12/30/2017 Comp Metabolic Uxy592 AST(SGOT) 20 U/L 12/30/2017 Comp Metabolic Ctr285 ALT(SGPT) 13 U/L 12/30/2017 Comp Metabolic Dij274 BILI T 0.7 mg/dL 12/30/2017 Comp Metabolic Cis002 ALBUMIN 4.2 g/dL 12/30/2017 Comp Metabolic Aho980 TPRO 6.7 g/dL 12/30/2017 Comp Metabolic Ltj306 GLOB 2.6 g/dL 12/30/2017 Comp Metabolic Qmz300 A/G Ratio 1.6 Ratio 12/30/2017 Comp Metabolic Aow961 Osmo 289 mOsmo 12/30/2017 Lipid Ord30 CHOL 167 mg/dL 12/30/2017 Lipid Ord30 HDL 63.0 mg/dl 12/30/2017 Lipid Ord30 TRIG 89 mg/dL 12/30/2017 Lipid Ord30 LDL 86 mg/dL 12/30/2017 Lipid Ord30 C/HDL 2.7 Ratio 12/30/2017 Urine Culture Ucult Preliminary NO Growth Day 1 04/17/2017 Urine Culture Ucult Complete NO Growth Day 2 04/17/2017 Comp Metabolic Oyw574 NA 143 mEq/L 04/15/2017 Comp Metabolic Kme088 K 4.6 mEq/L 04/15/2017 Comp Metabolic Nqq149 CL 110 mEq/L 04/15/2017 Comp Metabolic Xgk089 CO2 30.0 mEq/L 04/15/2017 Comp Metabolic Hzd397 ANION GAP 8 04/15/2017 Comp Metabolic Mat506 GLUCOSE 159 mg/dL 04/15/2017 Comp Metabolic Pzd286 Creat 1.1 mg/dL 04/15/2017 Comp Metabolic Hyn805 eGFR 54 ml/min/1.73m2 04/15/2017 Comp Metabolic Hdw564 BUN 27 mg/dL 04/15/2017 Comp Metabolic Awj543 B/C Ratio 25.7 Ratio 04/15/2017 Comp Metabolic Uyh462 CALCIUM 9.4 mg/dL 04/15/2017 Comp Metabolic Raa818 ALK PHOS 93 U/L 04/15/2017 Comp Metabolic Mtb556 AST(SGOT) 19 U/L 04/15/2017 Comp Metabolic Dis393 ALT(SGPT) 18 U/L 04/15/2017 Comp Metabolic Gmi999 BILI T 0.6 mg/dL 04/15/2017 Comp Metabolic Yys501 ALBUMIN 3.9 g/dL 04/15/2017 Comp Metabolic Brj965 TPRO 6.5 g/dL 04/15/2017 Comp Metabolic Sqo542 GLOB 2.6 g/dL 04/15/2017 Comp Metabolic Hip048 A/G Ratio 1.5 Ratio 04/15/2017 Comp Metabolic Yhr257 Osmo 293 mOsmo 04/15/2017 Tsh Ord6 hTSH II 2.05 uIU/mL 04/15/2017 %Hba1C Aav039 % HbA1c 58373- 6 6.3 % 04/15/2017 %Hba1C Abq978 Gluc Ave 134 mg/dL 04/15/2017 Cbc With [...] 22.4 % 04/15/2017 Cbc With Differential Ord2 [place]% 6.9 % 04/15/2017 Cbc With Differential Ord2 [...] 1.58 K/ul 04/15/2017 Cbc With Differential Ord2 [place] ABS# 0.5 K/ul 04/15/2017 Cbc With Differential [...] Ord28 U-Com Culture to follow 04/15/2017 %Hba1C Rpq886 % HbA1c 71878- 6 5.8 % 01/07/2017 %Hba1C Zeg938 Gluc Ave 120 mg/dL 01/07/2017 Urine Culture Ucult Preliminary NO Growth Day 1 09/21/2016 Urine Culture Ucult Complete NO Growth Day 2 09/21/2016 %Hba1C Chh130 % HbA1c 63463- 6 6.0 % 09/17/2016 %Hba1C Cct825 Gluc Ave 126 mg/dL 09/17/2016 Comp Metabolic Zrs197 NA 140 mEq/L 09/17/2016 Comp Metabolic Lbp336 K 4.1 mEq/L 09/17/2016 Comp Metabolic Llp199 CL 105 mEq/L 09/17/2016 Comp Metabolic Xdp685 CO2 29.0 mEq/L 09/17/2016 Comp Metabolic Ihk153 ANION GAP 10 09/17/2016 Comp Metabolic Ils182 GLUCOSE 89 mg/dL 09/17/2016 Comp Metabolic Xsf611 Creat 0.9 mg/dL 09/17/2016 Comp Metabolic Fsx254 eGFR 65 ml/min/1.73m2 09/17/2016 Comp Metabolic Fmm824 BUN 20 mg/dL 09/17/2016 Comp Metabolic Uby815 B/C Ratio 22.2 Ratio 09/17/2016 Comp Metabolic Hrv417 CALCIUM 9.3 mg/dL 09/17/2016 Comp Metabolic Ihd004 ALK PHOS 107 U/L 09/17/2016 Comp Metabolic Ibu588 AST(SGOT) 22 U/L 09/17/2016 Comp Metabolic Bjr468 ALT(SGPT) 15 U/L 09/17/2016 Comp Metabolic Eyk942 BILI T 0.7 mg/dL 09/17/2016 Comp Metabolic Pkx107 ALBUMIN 4.0 g/dL 09/17/2016 Comp Metabolic Dwk617 TPRO 6.8 g/dL 09/17/2016 Comp Metabolic Lzz177 GLOB 2.8 g/dL 09/17/2016 Comp Metabolic Dwa849 A/G Ratio 1.4 Ratio 09/17/2016 Comp Metabolic Szd875 Osmo 281 mOsmo 09/17/2016 Microalbumin Etz195 MicroAlb 44.3 mg/dL 09/17/2016 Tsh Ord6 hTSH [...] 25.6 % 09/17/2016 Cbc With Differential Ord2 [place]% 8.1 % 09/17/2016 Cbc With Differential Ord2 [...] 1.78 K/ul 09/17/2016 Cbc With Differential Ord2 [place] ABS# 0.6 K/ul 09/17/2016 Cbc With Differential [...] CPT-4: J3301 10/12/2018 THER/PROPH/DIAG INJ SC/IM CPT-4: 22391 10/12/2018 PPPS, SUBSEQ VISIT CPT- 4: G0439 09/06/2018 URINALYSIS NONAUTO W/O SCOPE CPT-4: 10945 12/29/2017 PPPS, SUBSEQ VISIT CPT- 4: G0439 03/30/2017 THER/PROPH/DIAG INJ SC/IM CPT-4: 33720 03/16/2017 TRIAMCINOLONE ACET INJ NOS CPT-4: J3301 03/16/2017 THER/PROPH/DIAG INJ SC/IM CPT-4: 36456 03/12/2017 TRIAMCINOLONE ACET INJ NOS CPT-4: J3301 03/12/2017 THER/PROPH/DIAG INJ SC/IM CPT-4: 31198 11/05/2016 TRIAMCINOLONE ACET INJ NOS CPT-4: J3301 11/05/2016 URINALYSIS NONAUTO W/O SCOPE CPT-4: 35382 09/18/2016 Vital Signs Date Vital 10/12/2018 Blood Pressure 1: 142/76 Code: 8480-6 BMI: 30.1 Code: 31070-9 Heart Rate 1: 83 bpm Height: 5'7" SpO2: 98% Weight: 192 lbs 09/06/2018 Blood Pressure 1: 142/66 Code: 8480-6 BMI: 30.9 Code: 43020-1 Heart Rate 1: 64 bpm Height: 5'7" SpO2: 98% Waist Measure (cm): 99 cm Weight: 197 lbs 08/16/2018 Blood Pressure 1: 140/70 Code: 8480-6 BMI: 34.4 Code: 39724-7 Heart Rate 1: 63 bpm Height: 5'7" SpO2: 95% Weight: 219 lbs 14 oz 04/12/2018 Blood Pressure 1: 160/70 Code: 8480-6 BMI: 33.0 Code: 81372-0 Heart Rate 1: 82 bpm Height: 5'7" SpO2: 95% Weight: 211 lbs 01/20/2018 Blood Pressure 1: 152/66 Code: 8480-6 BMI: 31.8 Code: 03622-6 Heart Rate 1: 52 bpm Height: 5'7" SpO2: 98% Temperature: 36.3 (C) / 97.3 (F) Weight: 203 lbs 12/29/2017 Blood Pressure 1: 168/72 Code: 8480-6 BMI: 32.1 Code: 60089-6 Heart Rate 1: 63 bpm Height: 5'7" SpO2: 98% Weight: 205 lbs 08/24/2017 Blood Pressure 1: 150/70 Code: 8480-6 Blood Pressure 1: 186/70 Code: 8480-6 BMI: 31.8 Code: 38038-9 Heart Rate 1: 53 bpm Height: 5'7" SpO2: 98% Weight: 203 lbs 07/26/2017 Blood Pressure 1: 206/78 Code: 8480-6 Blood Pressure 2: 210/84 Code: 8480-6 BMI: 32.0 Code: 97357-2 Heart Rate 1: 49 bpm Height: 5'7" SpO2: 97% Weight: 204 lbs 07/20/2017 Blood Pressure 1: 148/82 Code: 8480-6 Heart Rate 1: 90 bpm SpO2: 98% 05/27/2017 Blood Pressure 1: 142/72 Code: 8480-6 BMI: 30.5 Code: 23798-7 Heart Rate 1: 97 bpm Height: 5'7" [...] 1: 148/70 Code: 8480-6 BMI: 30.4 Code: 95583-8 Heart Rate 1: 54 bpm Height: 5'7" SpO2: 97% Weight: 194 lbs 03/30/2017 BMI: 33.2 Code: 78969-7 Height: 5'7" Weight: 212 lbs 03/16/2017 Blood Pressure 1: 140/80 Code: 8480-6 BMI: 34.0 Code: 51171-8 Heart Rate 1: 70 bpm Height: 5'7" SpO2: 95% Weight: 217 lbs 03/12/2017 Blood Pressure 1: 142/80 Code: 8480-6 BMI: 34.0 Code: 88996-7 Heart Rate 1: 76 bpm Height: 5'7" SpO2: 92% Weight: 217 lbs 02/17/2017 Blood Pressure 1: 162/64 Code: 8480-6 BMI: 32.9 Code: 15530-9 Heart Rate 1: 59 bpm Height: 5'7" SpO2: 97% Weight: 210 lbs 01/20/2017 Blood Pressure 1: 162/74 Code: 8480-6 BMI: 32.9 Code: 31844-3 Heart Rate 1: 56 bpm Height: 5'7" SpO2: 98% Weight: 210 lbs 11/17/2016 Blood Pressure 1: 156/60 Code: 8480-6 BMI: 34.8 Code: 19391-1 Heart Rate 1: 63 bpm Height: 5'7" SpO2: 96% Weight: 222 lbs 11/05/2016 Blood Pressure 1: 160/68 Code: 8480-6 BMI: 34.5 Code: 26094-6 Heart Rate 1: 66 bpm Height: 5'7" SpO2: 97% Temperature: 36.9 (C) / 98.5 (F) Weight: 220 lbs 09/21/2016 Blood Pressure 1: 166/72 Code: 8480-6 Blood Pressure 1: 180/72 Code: 8480-6 BMI: 32.1 Code: 68311-5 Heart Rate 1: 57 bpm Height: 5'7" SpO2: 98% Weight: 205 lbs 09/16/2016 Blood Pressure 1: 168/70 Code: 8480-6 Heart Rate 1: 49 bpm SpO2: 95% 08/03/2016 Blood Pressure 1: 162/70 Code: 8480-6 BMI: 32.0 Code: 76664-0 Heart Rate 1: 43 bpm Height: 5'7" SpO2: 98% Weight: 204 lbs 07/06/2016 Blood Pressure 1: 170/86 Code: 8480-6 BMI: 32.0 Code: 13305-7 Heart Rate 1: 48 bpm Height: 5'7" [...] data Encounters Encounter Performer Location Codes Date [id number] EST. PATIENT, LEVEL IV Diagnosis: Other acute sinusitis[ICD10: J01.80] Diagnosis: Other allergic rhinitis[ICD10: J30.89] [facility] CPT- 4: 34172 10/12/2018 ([id number]) [id number] EST. PATIENT, LEVEL IV Diagnosis: Essential (primary) hypertension[ICD10: I10] Diagnosis: Type 2 diabetes mellitus without complications[ICD10: E11.9] Diagnosis: Mixed hyperlipidemia[ICD10: E78.2] Fifi Camejo MD, [facility] CPT- 4: 76821 08/16/2018 ([id number]) 91162 EST. PATIENT, LEVEL IV Diagnosis: Type 2 diabetes mellitus without complications[ICD10: E11.9] Diagnosis: Mixed hyperlipidemia[ICD10: E78.2] Diagnosis: Essential (primary) hypertension[ICD10: I10] Diagnosis: Dysuria[ICD10: R30.0] Diagnosis: Pain in left foot[ICD10: M79.672] Fifi Camejo MD, [facility] CPT- 4: 65366 04/12/2018 ([id number]) 32870 EST. PATIENT, LEVEL III Diagnosis: Otalgia, bilateral[ICD10: H92.03] Diagnosis: Other allergic rhinitis[ICD10: J30.89] Yuridia Camejo MD, [facility] CPT-4: 44572 01/20/2018 ([id number]) 11318 EST. PATIENT, LEVEL IV Diagnosis: Type 2 diabetes mellitus without complications[ICD10: E11.9] Diagnosis: Mixed hyperlipidemia[ICD10: E78.2] Diagnosis: Essential (primary) hypertension[ICD10: I10] Diagnosis: Dysuria[ICD10: R30.0] Fifi Camejo MD, [facility] CPT-4: 91449 12/29/2017 ([id number]) 41267 EST. PATIENT, LEVEL IV Diagnosis: Essential (primary) hypertension[ICD10: I10] Diagnosis: Cysts of left upper eyelid[ICD10: H02.824] Diagnosis: Pain in left foot[ICD10: M79.672] Fifi Camejo MD, [facility] CPT- 4: 52494 08/24/2017 ([id number]) 31225 EST. PATIENT, LEVEL III Diagnosis: Essential (primary) hypertension[ICD10: I10] Fifi Camejo MD, [facility] CPT-4: 10425 07/26/2017 ([id number]) Miscellaneous no charge Diagnosis: Essential (primary) hypertension[ICD10: I10] Fifi Camejo MD [facility] CPT-4: 66462 07/20/2017 20845 EST. PATIENT, LEVEL III Diagnosis: Otalgia, bilateral[ICD10: H92.03] Diagnosis: Dizziness and giddiness[ICD10: R42] Diagnosis: Mixed hyperlipidemia[ICD10: E78.2] Krysta Camejo MD [facility] CPT-4: 07725 05/27/2017 ([id number]) Miscellaneous no charge Diagnosis: Essential (primary) hypertension[ICD10: I10] Krysta Camejo MD [facility] CPT-4: 08956 05/07/2017 ([id number]) 50705 EST. PATIENT, LEVEL IV Diagnosis: Otalgia, bilateral[ICD10: H92.03] Diagnosis: Dizziness and giddiness[ICD10: R42] Diagnosis: Orthostatic hypotension[ICD10: I95.1] Fifi Camejo MD [facility] CPT-4: 12015 05/03/2017 99978 EST. PATIENT, LEVEL IV Diagnosis: Essential (primary) hypertension[ICD10: I10] Diagnosis: Type 2 diabetes mellitus without complications[ICD10: E11.9] Diagnosis: Gastro-esophageal reflux disease without esophagitis[ICD10: K21.9] Diagnosis: Dizziness and giddiness[ICD10: R42] Diagnosis: Dysuria[ICD10: R30.0] Diagnosis: Other malaise[ICD10: R53.81] Krysta Camejo MD [facility] CPT-4: 06925 04/15/2017 ([id number]) 39059 EST. PATIENT, LEVEL IV Diagnosis: Type 2 diabetes mellitus without complications[ICD10: E11.9] Diagnosis: Otalgia, bilateral[ICD10: H92.03] Diagnosis: Essential (primary) hypertension[ICD10: I10] Diagnosis: Other allergic rhinitis[ICD10: J30.89] Ffii Camejo MD [facility] CPT-4: 01814 03/16/2017 [id number] EST. PATIENT, LEVEL IV Diagnosis: Other acute sinusitis[ICD10: J01.80] Diagnosis: Acute suppurative otitis media without spontaneous rupture of ear drum, bilateral[ICD10: H66.003] Diagnosis: Other allergic rhinitis[ICD10: J30.89] Krysta Camejo MD [facility] CPT- 4: 06888 03/12/2017 ([id number]) 43844 EST. PATIENT, LEVEL IV Diagnosis: Essential (primary) hypertension[ICD10: I10] Diagnosis: Type 2 diabetes mellitus without complications[ICD10: E11.9] Fifi Camejo MD [facility] CPT-4: 13779 02/17/2017 ([id number]) 66921 EST. PATIENT, LEVEL IV Diagnosis: Essential (primary) hypertension[ICD10: I10] Diagnosis: Type 2 diabetes mellitus without complications[ICD10: E11.9] Fifi Camejo MD [facility] CPT-4: 01609 01/20/2017 ([id number]) 40182 EST. PATIENT, LEVEL IV Diagnosis: Essential (primary) hypertension[ICD10: I10] Diagnosis: Type 2 diabetes mellitus without complications[ICD10: E11.9] Diagnosis: Gastro-esophageal reflux disease without esophagitis[ICD10: K21.9] Fifi Camejo MD [facility] CPT-4: 87256 11/17/2016 ([id number]) 44737 EST. PATIENT, LEVEL III Diagnosis: Acute bronchitis due to other specified organisms[ICD10: J20.8] Diagnosis: Cough[ICD10: R05] Fifi Camejo MD [facility] CPT-4: 67491 11/05/2016 ([id number]) 62870 EST. PATIENT, LEVEL IV Diagnosis: Essential (primary) hypertension[ICD10: I10] Diagnosis: Type 2 diabetes mellitus without complications[ICD10: E11.9] Fifi Camejo MD [facility] CPT-4: 10491 09/21/2016 ([id number]) Miscellaneous no charge Diagnosis: Essential (primary) hypertension[ICD10: I10] Fifi Camejo MD [facility] CPT-4: 53981 09/16/2016 ([id number]) 44949 EST. PATIENT, LEVEL III Diagnosis: Type 2 diabetes mellitus without complications[ICD10: E11.9] Diagnosis: Essential (primary) hypertension[ICD10: I10] Fifi Camejo MD [facility] CPT-4: 31079 08/03/2016 ([id number]) OFFICE VISIT, NEW - LEVEL 4 Diagnosis: Essential (primary) hypertension[ICD10: I10] Diagnosis: Type 2 diabetes mellitus without complications[ICD10: E11.9] Diagnosis: Carpal tunnel syndrome, left upper limb[ICD10: G56.02] Diagnosis: Right upper quadrant pain[ICD10: R10.11] Diagnosis: Mixed hyperlipidemia[ICD10: E78.2] Fifi Camejo MD, [facility] CPT- 4: 46598 07/06/2016 Plan of Care Planned Activity Notes [...] care surrogate. 09/06/2018 Appointment: Yuridia Walsh WPtel: [address] [place], [place] [phone] [facility] - Annual Wellness Visit 09/06/2018 Patient Education: Patient Medication Summary Completed 09/06/2018 Appointment: Kamari Walshie WPtel: [phone] [phone] [facility] - Annual Wellness Visit 08/29/2018 Visit [...] dications. 08/16/2018 [phone] (15 min) Moderate 08/16/2018 Patient Education: [...] foot. 04/12/2018 App[facility]ment[facility] [phone] [facility] (15 min) Moderate 04/12/2018 Patient Education: Patient Medication Summary Completed 04/12/2018 Care Plan: Referral Order SNOMED-CT : [id number] Pending 04/12/2018 Patient Education: Patient Medication Summary [...] spray. 01/20/2018 App[facility]ment[phone] [phone] [place] (15 min) Moderate 01/20/2018 Patient [...] controlled. 12/29/2017 Appointment: Fifi Camejo WPtel: [phone] [facility] (15 min) Moderate 12/29/2017 Patient Education: [...] - recommended referral to Dr. Chago davis [place] 08/24/2017 Appointment: [facility] [phone] [facility] (15 min) Moderate 08/24/2017 Patient Education: Patient Medication Summary Completed 08/24/2017 Care Plan: Referral Order SNOMED-CT : [id number] Pending 08/24/2017 Visit Plan: Hypertension - uncontrolled [...] Appointment: Fifi Camejo WPtel: [facility] (15 min) Moderate 07/26/2017 Patient Education: [...] medications. 05/27/2017 Appointment: Krysta Dale WPtel: [phone] [facility] (15 min) Moderate 05/27/2017 Patient Education: Patient Medication Summary Completed 05/27/2017 Appointment: Nurse Visit 05/07/2017 Patient Education: Patient Medication Summary Completed 05/07/2017 Visit Plan: Persistent vergito with bilateral air-fluid levels and ear pain. Pt was seen by Dr. Calov- she did not like his response to her complaints. I have recommended a referral to ENT in [place] or [place]. I suspect she may need myringotomy tubes. Pt to continue with flonase. Orthostatic hypotension - dc doxazosin. Monitor blood pressures at home. stop the doxazosin meclizine change to 1/2 pill three times a day come back on Wednesday for blood pressure check 05/03/2017 Appointment: Fifi Camejo WPtel: [phone] [facility] (15 min) Moderate 05/03/2017 Patient Education: Patient Medication Summary Completed 05/03/2017 Appointment: [facility] [phone] [facility] [place] (15 min) Moderate 04/21/2017 Visit [...] control. 04/15/2017 Appointment: Krysta Dale WPtel: [phone] [facility] (30 min) Complex 04/15/2017 Patient Education: Patient [...] care surrogate. 03/30/2017 Appointment: Krysta Dale WPtel: [phone] [facility] [facility] - Annual Wellness Visit 03/30/2017 Patient [...] home. 03/16/2017 Appointment: [facility] [phone] [facility] (30 min) Complex 03/16/2017 Patient Education: Patient Medication Summary Completed 03/16/2017 Patient Education: Obesity Completed 03/16/2017 Care Plan: Referral Order SNOMED-CT : [id number] Pending 03/16/2017 Visit Plan: Allergies - chronic [...] acutely worsen. 03/12/2017 App[facility]ment: [phone] ([facility] min) Moderate 03/12/2017 Patient Education: [...] controlled. 02/17/2017 Appointment: [facility] [phone] [facility] (30 min) Complex 02/17/2017 Patient [...] controlled. 01/20/2017 Appointment: [facility] [phone] [facility] (30 min) Complex 01/20/2017 Patient Education: [...] dexilant 11/17/2016 Appointment: [facility] [phone] [facility] (30 min) Complex 11/17/2016 Patient Education: [...] range. 09/21/2016 Appointment: [facility] [phone] [facility] (15 min) Moderate 09/21/2016 Patient [...] time. 08/03/2016 Appointment: Fifi Camejo WPtel: [phone] [facility] (15 min) Moderate 08/03/2016 Patient Education: [...] improving. 07/06/2016 Appointment: [facility]i [facility]amejo [facility]el[facility] [phone] [facility] New Patient 07/06/2016 Patient Education: [...] monitor your heart rate Consider referral for research physiologist for possible stress test if needed. Call [...] monitor your heart rate Consider referral for research physiologist for possible stress test if needed. Call [...] braces at night, call if not improving. . Hypertension - uncontrolled today in the [...] - recommended referral to Dr. Anders in [place] stop the doxazosin meclizine change to 1/2 pill three times a day come back on Wednesday for blood pressure check . Persistent vergito with bilateral air-fluid levels and ear pain. Pt was seen by Dr. Calvo- she did not like his response to her complaints. I have recommended a referral to ENT in [place] or [place]. I suspect she may need myringotomy tubes. Pt to continue with flonase. Orthostatic hypotension - dc doxazosin. Monitor blood pressures at home. stop the doxazosin meclizine change to 1/2 pill three times a day come back on Wednesday for blood pressure check
--- OUTSIDE RECORDS SUMMARY | 2019-03-08 17:13 | XMS REPORT | CCD ---
Author Author Fifi Camejo MD, [facility] Address [address] [place] [address] Phone Care Team Providers [facility] [place] [facility] Name Role Phone PP Unavailable CCM Unavailable Summary Purpose Interface Exchange Insurance Providers Payer name Policy type / Coverage type Covered republican ID Effective Begin Date Effective End Date WPS Medicare Part B Medicare Part B [id number] 2018 Unknown FOR LIFE WPS Medicare Part B [id number] Unknown Family history Father Diagnosis Age At Onset Cancer Unknown Brother Diagnosis Age At Onset Diabetes mellitus Type 2 Unknown Heart Attack Unknown Social History Social History Element Codes Description Effective Dates Marital status Unknown Wu 11/05/2016 Number of children Unknown 1 07/06/2016 Employment Unknown Retired 07/06/[address]: 302608394 Never smoker 07/06/[address]: 638470869 Never drinks alcohol 07/06/2016 Allergies, Adverse Reactions, Alerts Substance Reaction Codes Entered Date Inactivated Date Status Protonix hives RxNorm: 198011 09/06/2018 No Inactive Date Active IV DYE, [...] ICD-9: 477.8 ICD-10: J30.89 Active 03/12/2017 Unknown Cysts of left upper eyelid ICD-9: [...] 9: 461.8 ICD-10: J01.80 Active 03/12/2017 Unknown Diabetes Unknown Active 01/20/2017 [...] rhinitis ICD-9: 477.8 ICD-10: J30.89 03/12/2017 Active Cysts of left upper eyelid ICD-9: [...] ICD- 9: 461.8 ICD-10: J01.80 03/12/2017 Active Diabetes Unknown 01/20/2017 Active Acute bronchitis due to other specified organisms ICD-9: 466.0 ICD-10: J20.8 11/05/2016 Active Cough ICD-9: 786.2 ICD-10: R05 11/05/2016 Active Carpal tunnel syndrome, left upper limb ICD-9: 354.0 ICD-10: G56.02 07/05/2016 Active Right upper quadrant pain ICD-9: 789.01 ICD-10: R10.11 07/05/2016 Active Medications Medication Codes Instructions Start Date Stop Date Status Fill Instructions glimepiride 4 mg tablet RxNorm: 275461 Tablet(s) 1 TABLET(S) PO DAILY 10/12/2018 No Stop Date Active Zithromax Z-Juan 250 mg tablet RxNorm: 339119 1 Tablet(s) PO UD 08/22/2018 08/26/2018 Inactive zpack as directed clonidine HCl 0.1 mg tablet RxNorm: 997797 1 Tablet(s) PO QAM 08/16/2018 08/10/2019 Active losartan 100 mg tablet RxNorm: 373089 1 TABLET(S) PO DAILY FOR HIGH BLOOD PRESSURE 08/12/2018 No Stop Date Active alprazolam 0.5 mg tablet RxNorm: 968825 1 Tablet(s) PO TID as needed anxiety 06/30/2018 12/26/2018 Active fluticasone 50 mcg/actuation nasal spray,suspension RxNorm: 8042290 USE 1 SPRAY NASALLY TWICE A DAY 05/06/2018 No Stop Date Active clonidine HCl 0.1 mg tablet RxNorm: 431895 1 Tablet(s) PO BID 04/14/2018 08/15/2018 Inactive clonidine HCl 0.1 mg tablet RxNorm: 212654 1 Tablet(s) PO TID 04/12/2018 04/13/2018 Inactive Zithromax Z-Juan 250 mg tablet RxNorm: 384427 1 Tablet(s) PO UD 01/20/2018 08/21/2018 Inactive disregard first rx for 1 - patient needs 3 packs-please dispense generic azithromycin Zithromax Z-Juan 250 mg tablet RxNorm: 190089 1 Tablet(s) PO UD 01/20/2018 01/19/2018 Inactive Zithromax Z-Juan 250 mg tablet RxNorm: 748160 1 Tablet(s) PO UD 01/20/2018 01/19/2018 Inactive disregard first rx for 1 - patient needs 3 packs Zithromax Z-Juan 250 mg tablet RxNorm: 902489 1 Tablet(s) PO UD 01/20/2018 01/19/2018 Inactive atorvastatin 10 mg tablet RxNorm: 129160 1 Tablet(s) PO QPM 12/30/2017 12/24/2018 Active atorvastatin 10 mg tablet RxNorm: 961211 1 Tablet(s) PO QPM 12/30/2017 12/29/2017 Inactive metoprolol tartrate 50 mg tablet RxNorm: 545114 1/2 Tablet(s) PO BID 12/29/2017 12/23/2018 Active clonidine HCl 0.1 mg tablet RxNorm: 091618 1 Tablet(s) PO BID 12/29/2017 04/11/2018 Inactive Lipitor 10 mg tablet RxNorm: 233517 1 Tablet(s) PO QPM 12/29/2017 12/29/2017 Inactive OKAY TO DISPENSE GENERIC alprazolam 0.5 mg tablet RxNorm: 028199 1 Tablet(s) PO TID as needed anxiety 11/18/2017 05/16/2018 Inactive glimepiride 4 mg tablet RxNorm: 485501 1 TABLET(S) PO DAILY 11/15/2017 10/11/2018 Inactive alprazolam 0.5 mg tablet RxNorm: 746405 1 Tablet(s) PO TID as needed anxiety 09/20/2017 11/17/2017 Inactive Zithromax Z-Juan 250 mg tablet RxNorm: 331576 1 Tablet(s) PO UD 09/20/2017 12/28/2017 Inactive Zithromax Z-Juan 250 mg tablet RxNorm: 619409 1 Tablet(s) PO UD 09/14/2017 09/19/2017 Inactive amlodipine 10 mg tablet RxNorm: 336001 1 Tablet(s) PO daily 08/24/2017 08/18/2018 Inactive clonidine HCl 0.1 mg tablet RxNorm: 965857 1/2 Tablet(s) PO BID 08/24/2017 12/28/2017 Inactive erythromycin 5 mg/gram (0.5 %) eye ointment RxNorm: 220254 1 Gram(s) ophthalmic (eye) QID left eye cyst 08/24/2017 09/06/2017 Inactive losartan 100 mg tablet RxNorm: 364698 1 Tablet(s) PO daily for high blood pressure 08/16/2017 08/10/2018 Inactive metoprolol tartrate 50 mg tablet RxNorm: 976319 1/2 Tablet(s) PO BID 07/26/2017 12/28/2017 Inactive clonidine HCl 0.1 mg tablet RxNorm: 310869 1/2 Tablet(s) PO BID 07/26/2017 08/23/2017 Inactive metoprolol tartrate 50 mg tablet RxNorm: 680013 1 Tablet(s) PO BID 07/21/2017 07/25/2017 Inactive amlodipine 10 mg tablet RxNorm: 124328 1 TABLET(S) PO DAILY 06/29/2017 08/23/2017 Inactive Lipitor 10 mg tablet RxNorm: 861988 1 Tablet(s) PO QPM 05/27/2017 12/28/2017 Inactive OKAY TO DISPENSE GENERIC alprazolam 0.5 mg tablet RxNorm: 156955 1 Tablet(s) PO TID as needed anxiety 05/18/2017 08/15/2017 Inactive hydrochlorothiazide 12.5 mg tablet RxNorm: 923268 1 Tablet(s) PO daily 04/22/2017 05/21/2017 Inactive hydrochlorothiazide 12.5 mg tablet RxNorm: 976113 1 Tablet(s) PO daily 04/22/2017 04/21/2017 Inactive Cipro 500 mg tablet RxNorm: 377509 1 Tablet(s) PO BID 04/16/2017 04/22/2017 Inactive Zofran 4 mg tablet RxNorm: 782617 1 Tablet(s) PO BID as needed nausea and vomitting 04/15/2017 04/19/2017 Inactive Lipitor 10 mg tablet RxNorm: 639709 1 Tablet(s) PO QPM 03/30/2017 05/26/2017 Inactive OKAY TO DISPENSE GENERIC Kenalog 40 mg/mL suspension for injection RxNorm: 0940655 1 Milliliter(s) Inj 03/16/2017 03/16/2017 Inactive doxazosin 4 mg tablet RxNorm: 139318 1.5 Tablet(s) PO BID 03/16/2017 05/02/2017 Inactive prednisone 10 mg tablets in a dose pack RxNorm: 986838 Tablet(s) take dose pack as directed PO take with food 03/16/2017 05/23/2017 Inactive Kenalog 40 mg/mL suspension for injection RxNorm: 2186418 Milliliter(s) Inj 03/12/2017 03/12/2017 Inactive Zithromax Z-Juan 250 mg tablet RxNorm: 168402 1 Tablet(s) PO daily 03/11/2017 03/10/2017 Inactive clementine as directed Zithromax Z-Juan 250 mg tablet RxNorm: 351488 1 Tablet(s) PO daily 03/11/2017 03/15/2017 Inactive zpack as directed doxazosin 4 mg tablet RxNorm: 694326 1.5 Tablet(s) PO BID 02/12/2017 03/15/2017 Inactive fluticasone 50 mcg/actuation nasal spray,suspension RxNorm: 3681440 1 SPRAY NASAL BID 02/05/2017 05/05/2018 Inactive metoprolol tartrate 75 mg tablet RxNorm: 0860501 1 Tablet(s) PO BID 01/29/2017 07/19/2017 Inactive metoprolol tartrate 75 mg tablet RxNorm: 5267549 1 Tablet(s) PO BID 01/29/2017 01/28/2017 Inactive doxazosin 4 mg tablet RxNorm: 763121 1 Tablet(s) PO BID 01/20/2017 02/11/2017 Inactive pantoprazole 40 mg tablet,delayed release RxNorm: 137933 1 Tablet(s) PO daily 12/24/2016 01/19/2017 Inactive pantoprazole 40 mg tablet,delayed release RxNorm: 751379 1 Tablet(s) PO daily 12/24/2016 12/23/2016 Inactive alprazolam 0.5 mg tablet RxNorm: 264779 1 Tablet(s) PO TID as needed anxiety 12/03/2016 04/01/2017 Inactive fluticasone 50 mcg/actuation nasal spray,suspension RxNorm: 6831669 1 [place] NASAL BID 11/25/2016 12/24/2016 Inactive Dexilant 60 mg capsule, delayed release RxNorm: 405545 1 Capsule(s) PO daily 11/25/2016 11/24/2016 Inactive fluticasone 50 mcg/actuation nasal spray,suspension RxNorm: 6416657 1 [place] NASAL BID 11/25/2016 11/24/2016 Inactive fluticasone 50 mcg/actuation nasal spray,suspension RxNorm: 7740591 1 [place] NASAL BID 11/25/2016 11/24/2016 Inactive Dexilant 60 mg capsule, delayed release RxNorm: 730825 1 Capsule(s) PO daily 11/25/2016 12/23/2016 Inactive ProAir RespiClick 90 mcg/actuation breath activated RxNorm: 2097839 1 INH bid and QID as needed 11/19/2016 05/17/2017 Inactive Please send STAT Flonase Allergy Relief 50 mcg/actuation nasal spray,suspension RxNorm: 3916273 1 [place] NASAL BID 11/19/2016 11/24/2016 Inactive glimepiride 4 mg tablet RxNorm: 689630 1 Tablet(s) PO daily 11/19/2016 11/13/2017 Inactive metoprolol tartrate 50 mg tablet RxNorm: 093769 1 Tablet(s) PO BID 11/19/2016 01/28/2017 Inactive Flonase Allergy Relief 50 mcg/actuation nasal spray,suspension RxNorm: 5037166 1 [place] NASAL BID 11/17/2016 11/18/2016 Inactive metoprolol tartrate 50 mg tablet RxNorm: 565908 1 Tablet(s) PO BID 11/17/2016 11/18/2016 Inactive ProAir RespiClick 90 mcg/actuation breath activated RxNorm: 7153745 1 INH bid and QID as needed 11/17/2016 11/16/2016 Inactive glimepiride 4 mg tablet RxNorm: 647726 1 Tablet(s) PO daily 11/17/2016 11/18/2016 Inactive ProAir RespiClick 90 mcg/actuation breath activated RxNorm: 1391121 1 INH bid and QID as needed 11/17/2016 11/18/2016 Inactive Please send STAT Kenalog 40 mg/mL suspension for injection RxNorm: 4404162 1 Milliliter(s) Inj 11/05/2016 11/05/2016 Inactive azithromycin 250 mg tablet RxNorm: 304430 Tablet(s) PO 2 tabs on day #1, then daily x 4 days 11/05/2016 12/23/2016 Inactive doxazosin 4 mg tablet RxNorm: 745914 1 Tablet(s) PO QPM 10/02/2016 01/19/2017 Inactive doxazosin 4 mg tablet RxNorm: 331167 1 Tablet(s) PO QPM 09/29/2016 10/01/2016 Inactive doxazosin 4 mg tablet RxNorm: 229710 1 Tablet(s) PO QPM 09/21/2016 09/28/2016 Inactive Cipro 500 mg tablet RxNorm: 221615 1 Tablet(s) PO BID 09/18/2016 09/17/2016 Inactive Cipro 500 mg tablet RxNorm: 076837 1 Tablet(s) PO BID 09/18/2016 09/24/2016 Inactive losartan 100 mg tablet RxNorm: 415174 1 Tablet(s) PO daily for high blood pressure 09/16/2016 09/15/2016 Inactive alprazolam 0.5 mg tablet RxNorm: 748997 1 Tablet(s) PO TID as needed anxiety 09/16/2016 11/14/2016 Inactive losartan 100 mg tablet RxNorm: 475620 1 Tablet(s) PO daily for high blood pressure 09/16/2016 08/15/2017 Inactive amlodipine 10 mg tablet RxNorm: 426879 1 Tablet(s) PO daily 08/03/2016 06/28/2017 Inactive Zyrtec 10 mg tablet RxNorm: 5096065 1 Tablet(s) PO daily 08/03/2016 09/15/2016 Inactive losartan 25 mg tablet RxNorm: 290851 1 Tablet(s) PO daily 07/08/2016 09/15/2016 Inactive Lipitor 10 mg tablet RxNorm: 830184 1 Tablet(s) PO QPM 07/08/2016 07/17/2016 Inactive OKAY TO DISPENSE GENERIC Lipitor 10 mg tablet RxNorm: 875634 1 Tablet(s) PO QPM 07/06/2016 07/07/2016 Inactive OKAY TO DISPENSE GENERIC losartan 25 mg tablet RxNorm: 971322 1 Tablet(s) PO daily 07/06/2016 07/07/2016 Inactive meclizine 25 mg tablet RxNorm: 294195 1 Tablet(s) PO TID as needed No Start Date Active Parafon Forte DSC 500 mg tablet RxNorm: 408089 1 Tablet(s) PO QID No Start Date Active Pazeo 0.7 % eye drops RxNorm: 0563610 Drop(s) ophthalmic (eye) as needed dry eyes No Start Date Active Zithromax Z-Juan 250 mg tablet RxNorm: 279258 1 Tablet(s) PO UD No Start Date 09/13/2017 Inactive glimepiride 4 mg tablet RxNorm: 471922 1 Tablet(s) PO daily No Start Date 11/16/2016 Inactive metoprolol tartrate 100 mg tablet RxNorm: 671844 1 Tablet(s) PO BID No Start Date 07/21/2017 Inactive naproxen 500 mg tablet RxNorm: 787907 1 Tablet(s) PO BID No Start Date 03/23/2017 Inactive amlodipine 5 mg tablet RxNorm: 122409 1 Tablet(s) PO daily No Start Date 08/02/2016 Inactive metoprolol tartrate 50 mg tablet RxNorm: 526885 1 Tablet(s) PO BID No Start Date 11/16/2016 Inactive Medication Administered Medication Codes Instructions Start Date Status Kenalog 40 mg/mL suspension for injection RxNorm: 1985984 1Milliliter 03/16/2017 No longer Active Kenalog 40 mg/mL suspension for injection RxNorm: 0096241 Milliliter 03/12/2017 No longer Active Kenalog 40 mg/mL suspension for injection RxNorm: 5229016 1Milliliter 11/05/2016 No longer Active Immunizations Vaccine Codes Date Status Influenza CVX: 141 08/16/2018 completed Influenza CVX: 141 08/10/2017 completed Assessments Condition Codes Effective Dates Encounter for [...] 04/12/2018 Dysuria ICD-10: R30.0 ICD-9: 788.1 04/12/2018 Other allergic rhinitis ICD-10: J30.89 ICD-9: 477.8 01/20/2018 Otalgia, bilateral ICD-10: H92.03 ICD-9: 388.70 01/20/2018 [...] acute sinusitis ICD-10: J01.80 ICD-9: 461.8 03/12/2017 Acute bronchitis due to other specified organisms ICD-10: J20.8 ICD-9: 466.0 11/05/2016 Cough ICD-10: R05 ICD-9: 786.2 11/05/2016 Right upper quadrant pain ICD-10: R10.11 ICD-9: 789.01 07/06/2016 Carpal tunnel syndrome, left upper limb ICD-10: G56.02 ICD-9: 354.0 07/06/2016 Reason For Visit Reason For Visit Effective Dates Notes Annual Medicare Wellness Exam 09/06/2018 foot pain [...] Lipid Ord30 C/HDL 3.1 Ratio 08/18/2018 Microalbumin Lbo568 MicroAlb 7.5 mg/dL 08/18/2018 Cbc With Differential [...] 29.6 pg 08/18/2018 Cbc With Differential Ord2 [place]% 10.6 % 08/18/2018 Cbc With Differential Ord2 [...] 1.69 K/ul 08/18/2018 Cbc With Differential Ord2 [place] ABS# 0.6 K/ul 08/18/2018 Cbc With Differential Ord2 Eos ABS# 0.3 K/ul 08/18/2018 Cbc With Differential Ord2 Baso ABS# 0.0 K/ul 08/18/2018 Comp Metabolic Clk809 NA 137 mEq/L 08/18/2018 Comp Metabolic Rdc034 K 3.8 mEq/L 08/18/2018 Comp Metabolic Acp273 CL 103 mEq/L 08/18/2018 Comp Metabolic Fyg427 CO2 26.0 mEq/L 08/18/2018 Comp Metabolic Spu455 ANION GAP 12 08/18/2018 Comp Metabolic Ahg398 GLUCOSE 110 mg/dL 08/18/2018 Comp Metabolic Zuy500 Creat 1.2 mg/dL 08/18/2018 Comp Metabolic Cag581 eGFR 47 ml/min/1.73m2 08/18/2018 Comp Metabolic Klj453 BUN 25 mg/dL 08/18/2018 Comp Metabolic Itk125 B/C Ratio 21.0 Ratio 08/18/2018 Comp Metabolic Svb236 CALCIUM 9.4 mg/dL 08/18/2018 Comp Metabolic Jxy319 ALK PHOS 99 U/L 08/18/2018 Comp Metabolic Tlk378 AST(SGOT) 31 U/L 08/18/2018 Comp Metabolic Nil948 ALT(SGPT) 27 U/L 08/18/2018 Comp Metabolic Cmy033 BILI T 0.7 mg/dL 08/18/2018 Comp Metabolic Des606 ALBUMIN 4.2 g/dL 08/18/2018 Comp Metabolic Cpr960 TPRO 6.7 g/dL 08/18/2018 Comp Metabolic Rkk408 GLOB 2.5 g/dL 08/18/2018 Comp Metabolic Txt947 A/G Ratio 1.7 Ratio 08/18/2018 Comp Metabolic Hzm199 Osmo 279 mOsmo 08/18/2018 %Hba1C Kbg094 % HbA1c 02622- 6 6.1 % 08/18/2018 %Hba1C Hsf171 Gluc Ave 128 mg/dL 08/18/2018 Tsh Ord6 TSH (3rd IS) 3.93 uIU/mL 08/18/2018 Lipid Ord30 CHOL 146 mg/dL 04/15/2018 Lipid Ord30 HDL 62.0 mg/dl 04/15/2018 Lipid Ord30 TRIG 88 mg/dL 04/15/2018 Lipid Ord30 LDL 66 mg/dL 04/15/2018 Lipid Ord30 C/HDL 2.4 Ratio 04/15/2018 %Hba1C Xlv254 % HbA1c 27555- 6 6.3 % 04/15/2018 %Hba1C Xaz140 Gluc Ave 134 mg/dL 04/15/2018 Cbc With [...] 30.2 pg 04/15/2018 Cbc With Differential Ord2 [place]% 6.8 % 04/15/2018 Cbc With Differential Ord2 [...] 2.10 K/ul 04/15/2018 Cbc With Differential Ord2 [place] ABS# 0.5 K/ul 04/15/2018 Cbc With Differential Ord2 Eos ABS# 0.2 K/ul 04/15/2018 Cbc With Differential Ord2 Baso ABS# 0.0 K/ul 04/15/2018 Comp Metabolic Ahn038 NA 140 mEq/L 04/15/2018 Comp Metabolic Tuu154 K 4.3 mEq/L 04/15/2018 Comp Metabolic Nvs686 CL 106 mEq/L 04/15/2018 Comp Metabolic Pny941 CO2 23.0 mEq/L 04/15/2018 Comp Metabolic Vzq027 ANION GAP 15 04/15/2018 Comp Metabolic Hut281 GLUCOSE 90 mg/dL 04/15/2018 Comp Metabolic Inq976 Creat 1.2 mg/dL 04/15/2018 Comp Metabolic Frv070 eGFR 45 ml/min/1.73m2 04/15/2018 Comp Metabolic Aje734 BUN 28 mg/dL 04/15/2018 Comp Metabolic Hwx712 B/C Ratio 22.8 Ratio 04/15/2018 Comp Metabolic Erk111 CALCIUM 9.5 mg/dL 04/15/2018 Comp Metabolic Ecv680 ALK PHOS 95 U/L 04/15/2018 Comp Metabolic Yum812 AST(SGOT) 20 U/L 04/15/2018 Comp Metabolic Icy508 ALT(SGPT) 13 U/L 04/15/2018 Comp Metabolic Fhp333 BILI T 0.5 mg/dL 04/15/2018 Comp Metabolic Ykp066 ALBUMIN 4.1 g/dL 04/15/2018 Comp Metabolic Phe101 TPRO 6.6 g/dL 04/15/2018 Comp Metabolic Bwv064 GLOB 2.5 g/dL 04/15/2018 Comp Metabolic Kpg174 A/G Ratio 1.6 Ratio 04/15/2018 Comp Metabolic Lmz739 Osmo 284 mOsmo 04/15/2018 Comp Metabolic Rpx386 NA 137 mEq/L 02/04/2018 Comp Metabolic Yyp718 K 4.0 mEq/L 02/04/2018 Comp Metabolic Xko086 CL 104 mEq/L 02/04/2018 Comp Metabolic Ygy240 CO2 27.0 mEq/L 02/04/2018 Comp Metabolic Yzf411 ANION GAP 10 02/04/2018 Comp Metabolic Iqd934 GLUCOSE 212 mg/dL 02/04/2018 Comp Metabolic Uar726 Creat 1.2 mg/dL 02/04/2018 Comp Metabolic Aci932 eGFR 47 ml/min/1.73m2 02/04/2018 Comp Metabolic Hkz677 BUN 20 mg/dL 02/04/2018 Comp Metabolic Qpa694 B/C Ratio 16.8 Ratio 02/04/2018 Comp Metabolic Mvj315 CALCIUM 8.9 mg/dL 02/04/2018 Comp Metabolic Wzu322 ALK PHOS 107 U/L 02/04/2018 Comp Metabolic Msn516 AST(SGOT) 17 U/L 02/04/2018 Comp Metabolic Iuv907 ALT(SGPT) 11 U/L 02/04/2018 Comp Metabolic Xcu160 BILI T 0.4 mg/dL 02/04/2018 Comp Metabolic Ckx730 ALBUMIN 3.8 g/dL 02/04/2018 Comp Metabolic Xas733 TPRO 6.2 g/dL 02/04/2018 Comp Metabolic Ixx961 GLOB 2.4 g/dL 02/04/2018 Comp Metabolic Xqz341 A/G Ratio 1.6 Ratio 02/04/2018 Comp Metabolic Nfo598 Osmo 283 mOsmo 02/04/2018 %Hba1C Nau546 % HbA1c 12794- 6 6.3 % 12/30/2017 %Hba1C Qwb404 Gluc Ave 134 mg/dL 12/30/2017 Comp Metabolic Ygf227 NA 142 mEq/L 12/30/2017 Comp Metabolic Bqr421 K 4.4 mEq/L 12/30/2017 Comp Metabolic Rwh815 CL 103 mEq/L 12/30/2017 Comp Metabolic Dnn389 CO2 31.0 mEq/L 12/30/2017 Comp Metabolic Mdi398 ANION GAP 12 12/30/2017 Comp Metabolic Zzg765 GLUCOSE 119 mg/dL 12/30/2017 Comp Metabolic Wzp125 Creat 1.4 mg/dL 12/30/2017 Comp Metabolic Xbb240 eGFR 41 ml/min/1.73m2 12/30/2017 Comp Metabolic Vlw060 BUN 27 mg/dL 12/30/2017 Comp Metabolic Kjf445 B/C Ratio 20.0 Ratio 12/30/2017 Comp Metabolic Zov988 CALCIUM 9.9 mg/dL 12/30/2017 Comp Metabolic Hvd137 ALK PHOS 106 U/L 12/30/2017 Comp Metabolic Shs245 AST(SGOT) 20 U/L 12/30/2017 Comp Metabolic Aox656 ALT(SGPT) 13 U/L 12/30/2017 Comp Metabolic Rsl942 BILI T 0.7 mg/dL 12/30/2017 Comp Metabolic Nsx493 ALBUMIN 4.2 g/dL 12/30/2017 Comp Metabolic Wsf686 TPRO 6.7 g/dL 12/30/2017 Comp Metabolic Eea665 GLOB 2.6 g/dL 12/30/2017 Comp Metabolic Bws818 A/G Ratio 1.6 Ratio 12/30/2017 Comp Metabolic Jvw371 Osmo 289 mOsmo 12/30/2017 Lipid Ord30 CHOL 167 mg/dL 12/30/2017 Lipid Ord30 HDL 63.0 mg/dl 12/30/2017 Lipid Ord30 TRIG 89 mg/dL 12/30/2017 Lipid Ord30 LDL 86 mg/dL 12/30/2017 Lipid Ord30 C/HDL 2.7 Ratio 12/30/2017 Urine Culture Ucult Preliminary NO Growth Day 1 04/17/2017 Urine Culture Ucult Complete NO Growth Day 2 04/17/2017 Comp Metabolic Ame652 NA 143 mEq/L 04/15/2017 Comp Metabolic Gnf301 K 4.6 mEq/L 04/15/2017 Comp Metabolic Djc900 CL 110 mEq/L 04/15/2017 Comp Metabolic Gjc330 CO2 30.0 mEq/L 04/15/2017 Comp Metabolic Nzj299 ANION GAP 8 04/15/2017 Comp Metabolic Dgs839 GLUCOSE 159 mg/dL 04/15/2017 Comp Metabolic Myb299 Creat 1.1 mg/dL 04/15/2017 Comp Metabolic Okl535 eGFR 54 ml/min/1.73m2 04/15/2017 Comp Metabolic Naw636 BUN 27 mg/dL 04/15/2017 Comp Metabolic Cdi614 B/C Ratio 25.7 Ratio 04/15/2017 Comp Metabolic Xdc462 CALCIUM 9.4 mg/dL 04/15/2017 Comp Metabolic Ngg736 ALK PHOS 93 U/L 04/15/2017 Comp Metabolic Fib955 AST(SGOT) 19 U/L 04/15/2017 Comp Metabolic Hqv901 ALT(SGPT) 18 U/L 04/15/2017 Comp Metabolic Sik178 BILI T 0.6 mg/dL 04/15/2017 Comp Metabolic Okc439 ALBUMIN 3.9 g/dL 04/15/2017 Comp Metabolic Tae937 TPRO 6.5 g/dL 04/15/2017 Comp Metabolic Wrf302 GLOB 2.6 g/dL 04/15/2017 Comp Metabolic Xpv916 A/G Ratio 1.5 Ratio 04/15/2017 Comp Metabolic Iyp388 Osmo 293 mOsmo 04/15/2017 Tsh Ord6 hTSH II 2.05 uIU/mL 04/15/2017 %Hba1C Ikp948 % HbA1c 00924- 6 6.3 % 04/15/2017 %Hba1C Gnq371 Gluc Ave 134 mg/dL 04/15/2017 Cbc With [...] 22.4 % 04/15/2017 Cbc With Differential Ord2 [place]% 6.9 % 04/15/2017 Cbc With Differential Ord2 [...] 1.58 K/ul 04/15/2017 Cbc With Differential Ord2 [place] ABS# 0.5 K/ul 04/15/2017 Cbc With Differential [...] Ord28 U-Com Culture to follow 04/15/2017 %Hba1C Row699 % HbA1c 58479- 6 5.8 % 01/07/2017 %Hba1C Nbk162 Gluc Ave 120 mg/dL 01/07/2017 Urine Culture Ucult Preliminary NO Growth Day 1 09/21/2016 Urine Culture Ucult Complete NO Growth Day 2 09/21/2016 %Hba1C Zxp973 % HbA1c 51601- 6 6.0 % 09/17/2016 %Hba1C Lgm625 Gluc Ave 126 mg/dL 09/17/2016 Comp Metabolic Sbd100 NA 140 mEq/L 09/17/2016 Comp Metabolic Emy339 K 4.1 mEq/L 09/17/2016 Comp Metabolic Hhv388 CL 105 mEq/L 09/17/2016 Comp Metabolic Anx080 CO2 29.0 mEq/L 09/17/2016 Comp Metabolic Lwm814 ANION GAP 10 09/17/2016 Comp Metabolic Nwe825 GLUCOSE 89 mg/dL 09/17/2016 Comp Metabolic Ltu969 Creat 0.9 mg/dL 09/17/2016 Comp Metabolic Hpu921 eGFR 65 ml/min/1.73m2 09/17/2016 Comp Metabolic Wzp703 BUN 20 mg/dL 09/17/2016 Comp Metabolic Oku738 B/C Ratio 22.2 Ratio 09/17/2016 Comp Metabolic Bcw538 CALCIUM 9.3 mg/dL 09/17/2016 Comp Metabolic Vha682 ALK PHOS 107 U/L 09/17/2016 Comp Metabolic Mhc647 AST(SGOT) 22 U/L 09/17/2016 Comp Metabolic Ymn342 ALT(SGPT) 15 U/L 09/17/2016 Comp Metabolic Kbs020 BILI T 0.7 mg/dL 09/17/2016 Comp Metabolic Xoz742 ALBUMIN 4.0 g/dL 09/17/2016 Comp Metabolic Qcz509 TPRO 6.8 g/dL 09/17/2016 Comp Metabolic Qux526 GLOB 2.8 g/dL 09/17/2016 Comp Metabolic Usg007 A/G Ratio 1.4 Ratio 09/17/2016 Comp Metabolic Ijm489 Osmo 281 mOsmo 09/17/2016 Microalbumin Ddd165 MicroAlb 44.3 mg/dL 09/17/2016 Tsh Ord6 hTSH [...] 25.6 % 09/17/2016 Cbc With Differential Ord2 [place]% 8.1 % 09/17/2016 Cbc With Differential Ord2 [...] 1.78 K/ul 09/17/2016 Cbc With Differential Ord2 [place] ABS# 0.6 K/ul 09/17/2016 Cbc With Differential Ord2 Eos ABS# 0.2 K/ul 09/17/2016 Cbc With Differential Ord2 Baso ABS# 0.0 K/ul 09/17/2016 Lipid Ord30 CHOL 136 mg/dL 09/17/2016 Lipid Ord30 HDL 50.0 mg/dl 09/17/2016 Lipid Ord30 TRIG 70 mg/dL 09/17/2016 Lipid Ord30 LDL 72 mg/dL 09/17/2016 Lipid Ord30 C/HDL 2.7 Ratio 09/17/2016 Review of Systems System Result Effective Dates Constitutional No recent illness 09/06/2018 Constitutional No [...] Procedures Procedure Codes Date PPPS, SUBSEQ VISIT CPT- 4: G0439 09/06/2018 URINALYSIS NONAUTO W/O SCOPE CPT-4: 99674 12/29/2017 PPPS, SUBSEQ VISIT CPT- 4: G0439 03/30/2017 THER/PROPH/DIAG INJ SC/IM CPT-4: 22467 03/16/2017 TRIAMCINOLONE ACET INJ NOS CPT-4: J3301 03/16/2017 THER/PROPH/DIAG INJ SC/IM CPT-4: 50009 03/12/2017 TRIAMCINOLONE ACET INJ NOS CPT-4: J3301 03/12/2017 THER/PROPH/DIAG INJ SC/IM CPT-4: 08754 11/05/2016 TRIAMCINOLONE ACET INJ NOS CPT-4: J3301 11/05/2016 URINALYSIS NONAUTO W/O SCOPE CPT-4: 56171 09/18/2016 Vital Signs Date Vital 09/06/2018 Blood Pressure 1: 142/66 Code: 8480-6 BMI: 30.9 Code: 50168-1 Heart Rate 1: 64 bpm Height: 5'7" SpO2: 98% Waist Measure (cm): 99 cm Weight: 197 lbs 08/16/2018 Blood Pressure 1: 140/70 Code: 8480-6 BMI: 34.4 Code: 76940-5 Heart Rate 1: 63 bpm Height: 5'7" SpO2: 95% Weight: 219 lbs 14 oz 04/12/2018 Blood Pressure 1: 160/70 Code: 8480-6 BMI: 33.0 Code: 52748-9 Heart Rate 1: 82 bpm Height: 5'7" SpO2: 95% Weight: 211 lbs 01/20/2018 Blood Pressure 1: 152/66 Code: 8480-6 BMI: 31.8 Code: 95603-0 Heart Rate 1: 52 bpm Height: 5'7" SpO2: 98% Temperature: 36.3 (C) / 97.3 (F) Weight: 203 lbs 12/29/2017 Blood Pressure 1: 168/72 Code: 8480-6 BMI: 32.1 Code: 44170-6 Heart Rate 1: 63 bpm Height: 5'7" SpO2: 98% Weight: 205 lbs 08/24/2017 Blood Pressure 1: 150/70 Code: 8480-6 Blood Pressure 1: 186/70 Code: 8480-6 BMI: 31.8 Code: 27315-2 Heart Rate 1: 53 bpm Height: 5'7" SpO2: 98% Weight: 203 lbs 07/26/2017 Blood Pressure 1: 206/78 Code: 8480-6 Blood Pressure 2: 210/84 Code: 8480-6 BMI: 32.0 Code: 43183-1 Heart Rate 1: 49 bpm Height: 5'7" SpO2: 97% Weight: 204 lbs 07/20/2017 Blood Pressure 1: 148/82 Code: 8480-6 Heart Rate 1: 90 bpm SpO2: 98% 05/27/2017 Blood Pressure 1: 142/72 Code: 8480-6 BMI: 30.5 Code: 14166-4 Heart Rate 1: 97 bpm Height: 5'7" [...] 1: 148/70 Code: 8480-6 BMI: 30.4 Code: 82751-4 Heart Rate 1: 54 bpm Height: 5'7" SpO2: 97% Weight: 194 lbs 03/30/2017 BMI: 33.2 Code: 87419-4 Height: 5'7" Weight: 212 lbs 03/16/2017 Blood Pressure 1: 140/80 Code: 8480-6 BMI: 34.0 Code: 45292-3 Heart Rate 1: 70 bpm Height: 5'7" SpO2: 95% Weight: 217 lbs 03/12/2017 Blood Pressure 1: 142/80 Code: 8480-6 BMI: 34.0 Code: 66304-6 Heart Rate 1: 76 bpm Height: 5'7" SpO2: 92% Weight: 217 lbs 02/17/2017 Blood Pressure 1: 162/64 Code: 8480-6 BMI: 32.9 Code: 06761-3 Heart Rate 1: 59 bpm Height: 5'7" SpO2: 97% Weight: 210 lbs 01/20/2017 Blood Pressure 1: 162/74 Code: 8480-6 BMI: 32.9 Code: 13241-1 Heart Rate 1: 56 bpm Height: 5'7" SpO2: 98% Weight: 210 lbs 11/17/2016 Blood Pressure 1: 156/60 Code: 8480-6 BMI: 34.8 Code: 76907-0 Heart Rate 1: 63 bpm Height: 5'7" SpO2: 96% Weight: 222 lbs 11/05/2016 Blood Pressure 1: 160/68 Code: 8480-6 BMI: 34.5 Code: 92439-6 Heart Rate 1: 66 bpm Height: 5'7" SpO2: 97% Temperature: 36.9 (C) / 98.5 (F) Weight: 220 lbs 09/21/2016 Blood Pressure 1: 166/72 Code: 8480-6 Blood Pressure 1: 180/72 Code: 8480-6 BMI: 32.1 Code: 50888-3 Heart Rate 1: 57 bpm Height: 5'7" SpO2: 98% Weight: 205 lbs 09/16/2016 Blood Pressure 1: 168/70 Code: 8480-6 Heart Rate 1: 49 bpm SpO2: 95% 08/03/2016 Blood Pressure 1: 162/70 Code: 8480-6 BMI: 32.0 Code: 58656-7 Heart Rate 1: 43 bpm Height: 5'7" SpO2: 98% Weight: 204 lbs 07/06/2016 Blood Pressure 1: 170/86 Code: 8480-6 BMI: 32.0 Code: 85727-6 Heart Rate 1: 48 bpm Height: 5'7" SpO2: 97% Weight: 204 lbs Functional Status No Functional Status data History of Present Illness Symptom Name Status Result Effective Date Notes Alcohol Use does not drink any alcohol [...] data Encounters Encounter Performer Location Codes Date ([id number]) 39611 EST. PATIENT, LEVEL IV Diagnosis: Essential (primary) hypertension[ICD10: I10] Diagnosis: Type 2 diabetes mellitus without complications[ICD10: E11.9] Diagnosis: Mixed hyperlipidemia[ICD10: E78.2] [facility] CPT- 4: 52433 08/16/2018 ([id number]) 14486 EST. PATIENT, LEVEL IV Diagnosis: Type 2 diabetes mellitus without complications[ICD10: E11.9] Diagnosis: Mixed hyperlipidemia[ICD10: E78.2] Diagnosis: Essential (primary) hypertension[ICD10: I10] Diagnosis: Dysuria[ICD10: R30.0] Diagnosis: Pain in left foot[ICD10: M79.672] Fifi Camejo MD, [facility] CPT- 4: 05632 04/12/2018 ([id number]) 19128 EST. PATIENT, LEVEL III Diagnosis: Otalgia, bilateral[ICD10: H92.03] Diagnosis: Other allergic rhinitis[ICD10: J30.89] Yuridia Camejo MD, [facility] CPT-4: 66858 01/20/2018 ([id number]) 92575 EST. PATIENT, LEVEL IV Diagnosis: Type 2 diabetes mellitus without complications[ICD10: E11.9] Diagnosis: Mixed hyperlipidemia[ICD10: E78.2] Diagnosis: Essential (primary) hypertension[ICD10: I10] Diagnosis: Dysuria[ICD10: R30.0] Fifi Camejo MD, [facility] CPT-4: 31651 12/29/2017 ([id number]) 94785 EST. PATIENT, LEVEL IV Diagnosis: Essential (primary) hypertension[ICD10: I10] Diagnosis: Cysts of left upper eyelid[ICD10: H02.824] Diagnosis: Pain in left foot[ICD10: M79.672] Fifi Camejo MD, [facility] CPT- 4: 24047 08/24/2017 ([id number]) 45929 EST. PATIENT, LEVEL III Diagnosis: Essential (primary) hypertension[ICD10: I10] Fifi Camejo MD, [facility] CPT-4: 86767 07/26/2017 ([id number]) Miscellaneous no charge Diagnosis: Essential (primary) hypertension[ICD10: I10] Fifi Camejo MD, [facility] CPT-4: 25332 07/20/2017 [id number] EST. PATIENT, LEVEL III Diagnosis: Otalgia, bilateral[ICD10: H92.03] Diagnosis: Dizziness and giddiness[ICD10: R42] Diagnosis: Mixed hyperlipidemia[ICD10: E78.2] Krysta Camejo MD, [facility] CPT-4: 34992 05/27/2017 ([id number]) Miscellaneous no charge Diagnosis: Essential (primary) hypertension[ICD10: I10] Krysta Camejo MD, [facility] CPT-4: 03374 05/07/2017 ([id number]) 44909 EST. PATIENT, LEVEL IV Diagnosis: Otalgia, bilateral[ICD10: H92.03] Diagnosis: Dizziness and giddiness[ICD10: R42] Diagnosis: Orthostatic hypotension[ICD10: I95.1] Fifi Camejo MD, [facility] CPT-4: 20700 05/03/2017 18169 EST. PATIENT, LEVEL IV Diagnosis: Essential (primary) hypertension[ICD10: I10] Diagnosis: Type 2 diabetes mellitus without complications[ICD10: E11.9] Diagnosis: Gastro-esophageal reflux disease without esophagitis[ICD10: K21.9] Diagnosis: Dizziness and giddiness[ICD10: R42] Diagnosis: Dysuria[ICD10: R30.0] Diagnosis: Other malaise[ICD10: R53.81] Krysta Camejo MD, [facility] CPT-4: 93024 04/15/2017 ([id number]) 34287 EST. PATIENT, LEVEL IV Diagnosis: Type 2 diabetes mellitus without complications[ICD10: E11.9] Diagnosis: Otalgia, bilateral[ICD10: H92.03] Diagnosis: Essential (primary) hypertension[ICD10: I10] Diagnosis: Other allergic rhinitis[ICD10: J30.89] Fifi Camejo MD, [facility] CPT-4: 88916 03/16/2017 68400 EST. PATIENT, LEVEL IV Diagnosis: Other acute sinusitis[ICD10: J01.80] Diagnosis: Acute suppurative otitis media without spontaneous rupture of ear drum, bilateral[ICD10: H66.003] Diagnosis: Other allergic rhinitis[ICD10: J30.89] Krysta Camejo MD, [facility] CPT- 4: 60786 03/12/2017 ([id number]) 13982 EST. PATIENT, LEVEL IV Diagnosis: Essential (primary) hypertension[ICD10: I10] Diagnosis: Type 2 diabetes mellitus without complications[ICD10: E11.9] Fifi Cameoj MD, [facility] CPT-4: 05593 02/17/2017 ([id number]) 59590 EST. PATIENT, LEVEL IV Diagnosis: Essential (primary) hypertension[ICD10: I10] Diagnosis: Type 2 diabetes mellitus without complications[ICD10: E11.9] Fifi Camejo MD, [facility] CPT-4: 49226 01/20/2017 ([id number]) 53214 EST. PATIENT, LEVEL IV Diagnosis: Essential (primary) hypertension[ICD10: I10] Diagnosis: Type 2 diabetes mellitus without complications[ICD10: E11.9] Diagnosis: Gastro-esophageal reflux disease without esophagitis[ICD10: K21.9] RANDALL Redmond MD CPT-4: 24387 11/17/2016 ([id number]) 49177 EST. PATIENT, LEVEL III Diagnosis: Acute bronchitis due to other specified organisms[ICD10: J20.8] Diagnosis: Cough[ICD10: R05] RANDALL Redmond MD CPT-4: 40489 11/05/2016 ([id number]) 87214 EST. PATIENT, LEVEL IV Diagnosis: Essential (primary) hypertension[ICD10: I10] Diagnosis: Type 2 diabetes mellitus without complications[ICD10: E11.9] RANDALL Redmond MD CPT-4: 24524 09/21/2016 ([id number]) Miscellaneous no charge Diagnosis: Essential (primary) hypertension[ICD10: I10] RANDALL Redmond MD CPT-4: 32558 09/16/2016 ([id number]) 03210 EST. PATIENT, LEVEL III Diagnosis: Type 2 diabetes mellitus without complications[ICD10: E11.9] Diagnosis: Essential (primary) hypertension[ICD10: I10] RANDALL Redmond MD CPT-4: 41009 08/03/2016 ([id number]) OFFICE VISIT, NEW - LEVEL 4 Diagnosis: Essential (primary) hypertension[ICD10: I10] Diagnosis: Type 2 diabetes mellitus without complications[ICD10: E11.9] Diagnosis: Carpal tunnel syndrome, left upper limb[ICD10: G56.02] Diagnosis: Right upper quadrant pain[ICD10: R10.11] Diagnosis: Mixed hyperlipidemia[ICD10: E78.2] [facility] CPT- 4: 12902 07/06/2016 Plan of Care Planned Activity Notes Codes Status Date Visit Plan: Medicare Exam - today we [...] [id number] [facility] - Annual Wellness Visit 09/06/2018 Patient Education: Patient Medication Summary Completed 09/06/2018 Appointment: Yuridia Walsh WPtel: [phone] [facility] [facility] - Annual Wellness Visit 08/29/2018 [...] dications. 08/16/2018 Appointment: [phone] [facility] [place] (15 min) Moderate 08/16/2018 Patient Education: [...] foot. 04/12/2018 Appointment: [facility]jo [facility] [phone] [facility] (15 min) Moderate 04/12/2018 Patient Education: Patient Medication Summary Completed 04/12/2018 Care Plan: Referral Order SNOMED-CT : [id number] Pending 04/12/2018 Patient Education: Patient Medication Summary [...] allergy spray. 01/20/2018 Appointment: Yuridia Walsh WPtel: [phone] [facility] [place] (15 min) Moderate 01/20/2018 Patient Education: [...] less controlled. 12/29/2017 Appointment: Fifi Camejo [facility]Ptel: [facility] [place] (15 min) Moderate 12/29/2017 Patient Education: [...] Singh 08/24/2017 Appointment: [facility]amejo [facility]Ptel: [phone] [facility] [place] (15 min) Moderate 08/24/2017 Patient Education: Patient Medication Summary Completed 08/24/2017 Care Plan: Referral Order SNOMED-CT : [id number] Pending 08/24/2017 Visit Plan: Hypertension - uncontrolled [...] above. 07/26/2017 Appointment: Fifi Camejo WPtel: [phone] [facility] (15 min) Moderate 07/26/2017 Patient Education: Patient [...] medications. 05/27/2017 Appointment: Krysta Dale WPtel: [phone] [facility] (15 min) Moderate 05/27/2017 Patient Education: Patient Medication Summary Completed 05/27/2017 Appointment: Nurse Visit 05/07/2017 Patient Education: Patient Medication Summary Completed 05/07/2017 Visit Plan: Persistent vergito with bilateral air-fluid levels and ear pain. Pt was seen by Dr. Calvo- she did not like his response to her complaints. I have recommended a referral to ENT in [place] or [place]. I suspect she may need myringotomy tubes. Pt to continue with flonase. Orthostatic hypotension - dc doxazosin. Monitor blood pressures at home. stop the doxazosin meclizine change to 1/2 pill three times a day come back on Wednesday for blood pressure check 05/03/2017 Appointment: [facility]jo [facility]Ptel[facility] [phone] [facility] (15 min) Moderate 05/03/2017 Patient Education: Patient Medication Summary Completed 05/03/2017 Appointment: [facility]amejo [facility]Ptel: [phone] [facility] (15 min) Moderate 04/21/2017 Visit Plan: Hypertension, [...] glucose control. 04/15/2017 Appointment: Krysta Dale WPtel: [address] [place], [place] [address] (30 min) Complex 04/15/2017 Patient Education: Patient [...] surrogate. 03/30/2017 Appointment: Krysta Dale WPtel: [phone] [facility] [facility] - Annual Wellness Visit 03/30/2017 [...] have a referral to dr. calvo - [facility] sometime after March 24 Hypertension - well controlled - continue with current medications, continue with no added salt diet. Pt has been encouraged to exercise daily. The pt has been advised to call the office if there are any acute concerns about change in blood pressure readings at home. 03/16/2017 Appointment: Fifi Camejo WPtel: [phone] [facility] (30 min) Complex 03/16/2017 Patient Education: Patient Medication Summary Completed 03/16/2017 Patient Education: Obesity Completed 03/16/2017 Care Plan: Referral Order SNOMED-CT : [id number] Pending 03/16/2017 Visit Plan: Allergies - chronic [place] [address] (15 min) Moderate 03/12/2017 Patient Education: [...] controlled. 02/17/2017 Appointment: Fifi Camejo WPtel: [phone] [facility] (30 min) Complex 02/17/2017 Patient [...] less controlled. 01/20/2017 Appointment: Fifi Camejo WPtel: [phone] [facility] (30 min) Complex 01/20/2017 Patient [...] dexilant 11/17/2016 Appointment: Fifi Camejo WPtel: [phone] [facility] (30 min) Complex 11/17/2016 Patient Education: Patient [...] range. 09/21/2016 Appointment: Fif[facility] Camejo [facility]Ptel: [phone] [facility] (15 min) Moderate 09/21/2016 Patient [...] time. 08/03/2016 Appointment: Fifi Camejo WPtel: [phone] [facility] (15 min) Moderate 08/03/2016 Patient [...] improving. 07/06/2016 Appointment: Fifi Camejo WPtel: [phone] [facility] New Patient 07/06/2016 Patient Education: Patient Medication Summary Completed 07/06/2016 Patient Education: Obesity Completed 07/06/2016 Referral: Dr Calvo Referral Completed Referral: Freeman Huff Referral Appointment Requested Referral: External, Ordering Provider Referral Appointment Requested Instructions Comment . Hypertension - well controlled - continue [...] braces at night, call if not improving. Decrease doxazosin to 1 pill - write [...] controlled. GERD - gave sample of dexilant stop the doxazosin meclizine change to 1/2 pill three times a day come back on Wednesday for blood pressure check . Persistent vergito with bilateral air-fluid levels and ear pain. Pt was seen by Dr. Calvo- she did not like his response to her complaints. I have recommended a referral to ENT in [place] or [place]. I suspect she may need myringotomy tubes. Pt to continue with flonase. Orthostatic hypotension - dc doxazosin. Monitor blood pressures at home. stop the doxazosin meclizine change to 1/2 pill three times a day come back on Wednesday for blood pressure check increase clonidine to a full pill twice [...] less controlled. INCREASE FLONASE TO TWICE DAILY clementine . Earache-allergies- Pt has been counseled as [...] monitor your heart rate Consider referral for monument setter for possible stress test if needed. Call [...] monitor your heart rate Consider referral for monument setter for possible stress test if needed. Call [...] taking except for the changes listed above. TAKE TWO AMLODIPINE - FOR A TOTAL [...] are starting to become less controlled. . Persistent vergito with bilateral air-fluid levels [...] to assure normal liver response to medications. . Hypertension - uncontrolled today in the [...] - recommended referral to Dr. Anders in [place]
--- OUTSIDE RECORDS SUMMARY | 2019-03-08 17:16 | XMS REPORT | CCD ---
Author Author Fifi Camejo MD, [facility] Address [address] [place] [address] Phone Care Team Providers Care Cashier Courtesy Booth Name Role Phone PP Unavailable CCM Unavailable Summary Purpose Interface Exchange Insurance Providers Payer name Policy type / Coverage type Covered constitution party ID Effective Begin Date Effective End Date WPS Medicare Part B Medicare Part B [id number] 2018 Unknown FOR LIFE WPS Medicare Part B [id number] 2018 Unknown Family history Father Diagnosis Age At Onset Cancer Unknown Brother Diagnosis Age At Onset Diabetes mellitus Type 2 Unknown Heart Attack Unknown Social History Social History Element Codes Description Effective Dates Marital status Unknown Wu 11/05/2016 Number of children Unknown 1 07/06/2016 Employment Unknown Retired 07/06/[address]: 788225619 Never smoker 07/06/[address]: 756551621 Never drinks alcohol 07/06/2016 Allergies, Adverse Reactions, Alerts Substance Reaction Codes Entered Date Inactivated Date Status Protonix hives RxNorm: 905454 09/06/2018 No Inactive Date Active IV DYE, [...] Instructions Zithromax Z-Juan 250 mg tablet RxNorm: 462328 1 Tablet(s) PO UD 08/22/2018 08/26/2018 Inactive zpack as directed clonidine HCl 0.1 mg tablet RxNorm: 127159 1 Tablet(s) PO QAM 08/16/2018 08/10/2019 Active losartan 100 mg tablet RxNorm: 234640 1 TABLET(S) PO DAILY FOR HIGH BLOOD PRESSURE 08/12/2018 No Stop Date Active alprazolam 0.5 mg tablet RxNorm: 470952 1 Tablet(s) PO TID as needed anxiety 06/30/2018 12/26/2018 Active fluticasone 50 mcg/actuation nasal spray,suspension RxNorm: 0392985 USE 1 SPRAY NASALLY TWICE A DAY 05/06/2018 No Stop Date Active clonidine HCl 0.1 mg tablet RxNorm: 614491 1 Tablet(s) PO BID 04/14/2018 08/15/2018 Inactive clonidine HCl 0.1 mg tablet RxNorm: 441636 1 Tablet(s) PO TID 04/12/2018 04/13/2018 Inactive Zithromax Z-Juan 250 mg tablet RxNorm: 909525 1 Tablet(s) PO UD 01/20/2018 08/21/2018 Inactive disregard first rx for 1 - patient needs 3 packs-please dispense generic azithromycin Zithromax Z-Juan 250 mg tablet RxNorm: 317092 1 Tablet(s) PO UD 01/20/2018 01/19/2018 Inactive Zithromax Z-Juan 250 mg tablet RxNorm: 706359 1 Tablet(s) PO UD 01/20/2018 01/19/2018 Inactive disregard first rx for 1 - patient needs 3 packs Zithromax Z-Juan 250 mg tablet RxNorm: 887722 1 Tablet(s) PO UD 01/20/2018 01/19/2018 Inactive atorvastatin 10 mg tablet RxNorm: 617462 1 Tablet(s) PO QPM 12/30/2017 12/24/2018 Active atorvastatin 10 mg tablet RxNorm: 814112 1 Tablet(s) PO QPM 12/30/2017 12/29/2017 Inactive metoprolol tartrate 50 mg tablet RxNorm: 700908 1/2 Tablet(s) PO BID 12/29/2017 12/23/2018 Active clonidine HCl 0.1 mg tablet RxNorm: 978192 1 Tablet(s) PO BID 12/29/2017 04/11/2018 Inactive Lipitor 10 mg tablet RxNorm: 454488 1 Tablet(s) PO QPM 12/29/2017 12/29/2017 Inactive OKAY TO DISPENSE GENERIC alprazolam 0.5 mg tablet RxNorm: 796291 1 Tablet(s) PO TID as needed anxiety 11/18/2017 05/16/2018 Inactive glimepiride 4 mg tablet RxNorm: 692073 1 TABLET(S) PO DAILY 11/15/2017 No Stop Date Active alprazolam 0.5 mg tablet RxNorm: 721508 1 Tablet(s) PO TID as needed anxiety 09/20/2017 11/17/2017 Inactive Zithromax Z-Juan 250 mg tablet RxNorm: 982174 1 Tablet(s) PO UD 09/20/2017 12/28/2017 Inactive Zithromax Z-Juan 250 mg tablet RxNorm: 845490 1 Tablet(s) PO UD 09/14/2017 09/19/2017 Inactive amlodipine 10 mg tablet RxNorm: 577996 1 Tablet(s) PO daily 08/24/2017 08/18/2018 Inactive clonidine HCl 0.1 mg tablet RxNorm: 663585 1/2 Tablet(s) PO BID 08/24/2017 12/28/2017 Inactive erythromycin 5 mg/gram (0.5 %) eye ointment RxNorm: 826352 1 Gram(s) ophthalmic (eye) QID left eye cyst 08/24/2017 09/06/2017 Inactive losartan 100 mg tablet RxNorm: 145453 1 Tablet(s) PO daily for high blood pressure 08/16/2017 08/10/2018 Inactive metoprolol tartrate 50 mg tablet RxNorm: 944729 1/2 Tablet(s) PO BID 07/26/2017 12/28/2017 Inactive clonidine HCl 0.1 mg tablet RxNorm: 958255 1/2 Tablet(s) PO BID 07/26/2017 08/23/2017 Inactive metoprolol tartrate 50 mg tablet RxNorm: 376340 1 Tablet(s) PO BID 07/21/2017 07/25/2017 Inactive amlodipine 10 mg tablet RxNorm: 491995 1 TABLET(S) PO DAILY 06/29/2017 08/23/2017 Inactive Lipitor 10 mg tablet RxNorm: 324997 1 Tablet(s) PO QPM 05/27/2017 12/28/2017 Inactive OKAY TO DISPENSE GENERIC alprazolam 0.5 mg tablet RxNorm: 067153 1 Tablet(s) PO TID as needed anxiety 05/18/2017 08/15/2017 Inactive hydrochlorothiazide 12.5 mg tablet RxNorm: 216388 1 Tablet(s) PO daily 04/22/2017 05/21/2017 Inactive hydrochlorothiazide 12.5 mg tablet RxNorm: 398995 1 Tablet(s) PO daily 04/22/2017 04/21/2017 Inactive Cipro 500 mg tablet RxNorm: 239277 1 Tablet(s) PO BID 04/16/2017 04/22/2017 Inactive Zofran 4 mg tablet RxNorm: 316789 1 Tablet(s) PO BID as needed nausea and vomitting 04/15/2017 04/19/2017 Inactive Lipitor 10 mg tablet RxNorm: 393787 1 Tablet(s) PO QPM 03/30/2017 05/26/2017 Inactive OKAY TO DISPENSE GENERIC Kenalog 40 mg/mL suspension for injection RxNorm: 2436542 1 Milliliter(s) Inj 03/16/2017 03/16/2017 Inactive doxazosin 4 mg tablet RxNorm: 621938 1.5 Tablet(s) PO BID 03/16/2017 05/02/2017 Inactive prednisone 10 mg tablets in a dose pack RxNorm: 087776 Tablet(s) take dose pack as directed PO take with food 03/16/2017 05/23/2017 Inactive Kenalog 40 mg/mL suspension for injection RxNorm: 3787257 Milliliter(s) Inj 03/12/2017 03/12/2017 Inactive Zithromax Z-Juan 250 mg tablet RxNorm: 508977 1 Tablet(s) PO daily 03/11/2017 03/10/2017 Inactive zpack as directed Zithromax Z-Juan 250 mg tablet RxNorm: 958870 1 Tablet(s) PO daily 03/11/2017 03/15/2017 Inactive zpack as directed doxazosin 4 mg tablet RxNorm: 713425 1.5 Tablet(s) PO BID 02/12/2017 03/15/2017 Inactive fluticasone 50 mcg/actuation nasal spray,suspension RxNorm: 7541855 1 SPRAY NASAL BID 02/05/2017 05/05/2018 Inactive metoprolol tartrate 75 mg tablet RxNorm: 4673811 1 Tablet(s) PO BID 01/29/2017 07/19/2017 Inactive metoprolol tartrate 75 mg tablet RxNorm: 4051003 1 Tablet(s) PO BID 01/29/2017 01/28/2017 Inactive doxazosin 4 mg tablet RxNorm: 005320 1 Tablet(s) PO BID 01/20/2017 02/11/2017 Inactive pantoprazole 40 mg tablet,delayed release RxNorm: 807413 1 Tablet(s) PO daily 12/24/2016 01/19/2017 Inactive pantoprazole 40 mg tablet,delayed release RxNorm: 971013 1 Tablet(s) PO daily 12/24/2016 12/23/2016 Inactive alprazolam 0.5 mg tablet RxNorm: 535570 1 Tablet(s) PO TID as needed anxiety 12/03/2016 04/01/2017 Inactive fluticasone 50 mcg/actuation nasal spray,suspension RxNorm: 8747844 1 [place] NASAL BID 11/25/2016 12/24/2016 Inactive Dexilant 60 mg capsule, delayed release RxNorm: 627050 1 Capsule(s) PO daily 11/25/2016 11/24/2016 Inactive fluticasone 50 mcg/actuation nasal spray,suspension RxNorm: 3842220 1 [place] NASAL BID 11/25/2016 11/24/2016 Inactive fluticasone 50 mcg/actuation nasal spray,suspension RxNorm: 9062033 1 [place] NASAL BID 11/25/2016 11/24/2016 Inactive Dexilant 60 mg capsule, delayed release RxNorm: 203149 1 Capsule(s) PO daily 11/25/2016 12/23/2016 Inactive ProAir RespiClick 90 mcg/actuation breath activated RxNorm: 3476286 1 INH bid and QID as needed 11/19/2016 05/17/2017 Inactive Please send STAT Flonase Allergy Relief 50 mcg/actuation nasal spray,suspension RxNorm: 8722715 1 [place] NASAL BID 11/19/2016 11/24/2016 Inactive glimepiride 4 mg tablet RxNorm: 305024 1 Tablet(s) PO daily 11/19/2016 11/13/2017 Inactive metoprolol tartrate 50 mg tablet RxNorm: 620283 1 Tablet(s) PO BID 11/19/2016 01/28/2017 Inactive Flonase Allergy Relief 50 mcg/actuation nasal spray,suspension RxNorm: 9517101 1 [place] NASAL BID 11/17/2016 11/18/2016 Inactive metoprolol tartrate 50 mg tablet RxNorm: 250688 1 Tablet(s) PO BID 11/17/2016 11/18/2016 Inactive ProAir RespiClick 90 mcg/actuation breath activated RxNorm: 8281634 1 INH bid and QID as needed 11/17/2016 11/16/2016 Inactive glimepiride 4 mg tablet RxNorm: 436553 1 Tablet(s) PO daily 11/17/2016 11/18/2016 Inactive ProAir RespiClick 90 mcg/actuation breath activated RxNorm: 8286569 1 INH bid and QID as needed 11/17/2016 11/18/2016 Inactive Please send STAT Kenalog 40 mg/mL suspension for injection RxNorm: 6893715 1 Milliliter(s) Inj 11/05/2016 11/05/2016 Inactive azithromycin 250 mg tablet RxNorm: 716163 Tablet(s) PO 2 tabs on day #1, then daily x 4 days 11/05/2016 12/23/2016 Inactive doxazosin 4 mg tablet RxNorm: 425421 1 Tablet(s) PO QPM 10/02/2016 01/19/2017 Inactive doxazosin 4 mg tablet RxNorm: 189975 1 Tablet(s) PO QPM 09/29/2016 10/01/2016 Inactive doxazosin 4 mg tablet RxNorm: 676717 1 Tablet(s) PO QPM 09/21/2016 09/28/2016 Inactive Cipro 500 mg tablet RxNorm: 819405 1 Tablet(s) PO BID 09/18/2016 09/17/2016 Inactive Cipro 500 mg tablet RxNorm: 340527 1 Tablet(s) PO BID 09/18/2016 09/24/2016 Inactive losartan 100 mg tablet RxNorm: 708919 1 Tablet(s) PO daily for high blood pressure 09/16/2016 09/15/2016 Inactive alprazolam 0.5 mg tablet RxNorm: 341846 1 Tablet(s) PO TID as needed anxiety 09/16/2016 11/14/2016 Inactive losartan 100 mg tablet RxNorm: 489901 1 Tablet(s) PO daily for high blood pressure 09/16/2016 08/15/2017 Inactive amlodipine 10 mg tablet RxNorm: 305711 1 Tablet(s) PO daily 08/03/2016 06/28/2017 Inactive Zyrtec 10 mg tablet RxNorm: 3601974 1 Tablet(s) PO daily 08/03/2016 09/15/2016 Inactive losartan 25 mg tablet RxNorm: 312347 1 Tablet(s) PO daily 07/08/2016 09/15/2016 Inactive Lipitor 10 mg tablet RxNorm: 342781 1 Tablet(s) PO QPM 07/08/2016 07/17/2016 Inactive OKAY TO DISPENSE GENERIC Lipitor 10 mg tablet RxNorm: 806520 1 Tablet(s) PO QPM 07/06/2016 07/07/2016 Inactive OKAY TO DISPENSE GENERIC losartan 25 mg tablet RxNorm: 227396 1 Tablet(s) PO daily 07/06/2016 07/07/2016 Inactive meclizine 25 mg tablet RxNorm: 935440 1 Tablet(s) PO TID as needed No Start Date Active Parafon Forte DSC 500 mg tablet RxNorm: 721838 1 Tablet(s) PO QID No Start Date Active Pazeo 0.7 % eye drops RxNorm: 3069700 Drop(s) ophthalmic (eye) as needed dry eyes No Start Date Active Zithromax Z-Juan 250 mg tablet RxNorm: 531727 1 Tablet(s) PO UD No Start Date 09/13/2017 Inactive glimepiride 4 mg tablet RxNorm: 343953 1 Tablet(s) PO daily No Start Date 11/16/2016 Inactive metoprolol tartrate 100 mg tablet RxNorm: 642824 1 Tablet(s) PO BID No Start Date 07/21/2017 Inactive naproxen 500 mg tablet RxNorm: 901565 1 Tablet(s) PO BID No Start Date 03/23/2017 Inactive amlodipine 5 mg tablet RxNorm: 151422 1 Tablet(s) PO daily No Start Date 08/02/2016 Inactive metoprolol tartrate 50 mg tablet RxNorm: 598775 1 Tablet(s) PO BID No Start Date 11/16/2016 Inactive Medication Administered Medication Codes Instructions Start Date Status Kenalog 40 mg/mL suspension for injection RxNorm: 6508447 1Milliliter 03/16/2017 No longer Active Kenalog 40 mg/mL suspension for injection RxNorm: 6392429 [place] 03/12/2017 No longer Active Kenalog 40 mg/mL suspension for injection RxNorm: 2160472 1Milliliter 11/05/2016 No longer Active Immunizations Vaccine Codes Date Status Influenza CVX: 141 08/10/2017 completed Assessments Condition [...] Lipid Ord30 C/HDL 3.1 Ratio 08/18/2018 Microalbumin Vjb614 MicroAlb 7.5 mg/dL 08/18/2018 Cbc With Differential [...] 29.6 pg 08/18/2018 Cbc With Differential Ord2 [place]% 10.6 % 08/18/2018 Cbc With Differential Ord2 [...] 1.69 K/ul 08/18/2018 Cbc With Differential Ord2 [place] ABS# 0.6 K/ul 08/18/2018 Cbc With Differential Ord2 Eos ABS# 0.3 K/ul 08/18/2018 Cbc With Differential Ord2 Baso ABS# 0.0 K/ul 08/18/2018 %Hba1C Osj808 % HbA1c 41684- 6 6.1 % 08/18/2018 %Hba1C Oey485 Gluc Ave 128 mg/dL 08/18/2018 Tsh Ord6 TSH (3rd IS) 3.93 uIU/mL 08/18/2018 Comp Metabolic Onq165 NA 137 mEq/L 08/18/2018 Comp Metabolic Txl899 K 3.8 mEq/L 08/18/2018 Comp Metabolic Xkt604 CL 103 mEq/L 08/18/2018 Comp Metabolic Dxo067 CO2 26.0 mEq/L 08/18/2018 Comp Metabolic Gsd249 ANION GAP 12 08/18/2018 Comp Metabolic Kqy003 GLUCOSE 110 mg/dL 08/18/2018 Comp Metabolic Jsr285 Creat 1.2 mg/dL 08/18/2018 Comp Metabolic Los411 eGFR 47 ml/min/1.73m2 08/18/2018 Comp Metabolic Siq214 BUN 25 mg/dL 08/18/2018 Comp Metabolic Rfv825 B/C Ratio 21.0 Ratio 08/18/2018 Comp Metabolic Jzb574 CALCIUM 9.4 mg/dL 08/18/2018 Comp Metabolic Kxe994 ALK PHOS 99 U/L 08/18/2018 Comp Metabolic Jgl651 AST(SGOT) 31 U/L 08/18/2018 Comp Metabolic Uoa673 ALT(SGPT) 27 U/L 08/18/2018 Comp Metabolic Rmf351 BILI T 0.7 mg/dL 08/18/2018 Comp Metabolic Bvx938 ALBUMIN 4.2 g/dL 08/18/2018 Comp Metabolic Xye813 TPRO 6.7 g/dL 08/18/2018 Comp Metabolic Vru231 GLOB 2.5 g/dL 08/18/2018 Comp Metabolic Kaa776 A/G Ratio 1.7 Ratio 08/18/2018 Comp Metabolic Nkr383 Osmo 279 mOsmo 08/18/2018 Lipid Ord30 CHOL 146 mg/dL 04/15/2018 Lipid Ord30 HDL 62.0 mg/dl 04/15/2018 Lipid Ord30 TRIG 88 mg/dL 04/15/2018 Lipid Ord30 LDL 66 mg/dL 04/15/2018 Lipid Ord30 C/HDL 2.4 Ratio 04/15/2018 %Hba1C Yhg459 % HbA1c 42923- 6 6.3 % 04/15/2018 %Hba1C Qia020 Gluc Ave 134 mg/dL 04/15/2018 Cbc With [...] 28.6 % 04/15/2018 Cbc With Differential Ord2 [place]% 6.8 % 04/15/2018 Cbc With Differential Ord2 MCH 30.2 pg 04/15/2018 Cbc With Differential Ord2 Eos% 2.3 % 04/15/2018 Cbc With Differential Ord2 MCHC 34.5 pg 04/15/2018 Cbc With Differential Ord2 PLT 230 K/ul 04/15/2018 Cbc With Differential Ord2 Baso% 0.1 % 04/15/2018 Cbc With Differential Ord2 RDW 12.8 % 04/15/2018 Cbc With Differential Ord2 Neut ABS# 4.56 K/ul 04/15/2018 Cbc With Differential Ord2 Lymph ABS# 2.10 K/ul 04/15/2018 Cbc With Differential Ord2 [place] ABS# 0.5 K/ul 04/15/2018 Cbc With Differential Ord2 Eos ABS# 0.2 K/ul 04/15/2018 Cbc With Differential Ord2 Baso ABS# 0.0 K/ul 04/15/2018 Comp Metabolic Gns864 NA 140 mEq/L 04/15/2018 Comp Metabolic Dng189 K 4.3 mEq/L 04/15/2018 Comp Metabolic Kdy665 CL 106 mEq/L 04/15/2018 Comp Metabolic Ngf756 CO2 23.0 mEq/L 04/15/2018 Comp Metabolic Ywx281 ANION GAP 15 04/15/2018 Comp Metabolic Zjv105 GLUCOSE 90 mg/dL 04/15/2018 Comp Metabolic Pdp606 Creat 1.2 mg/dL 04/15/2018 Comp Metabolic Utd328 eGFR 45 ml/min/1.73m2 04/15/2018 Comp Metabolic Hmu556 BUN 28 mg/dL 04/15/2018 Comp Metabolic Pqk473 B/C Ratio 22.8 Ratio 04/15/2018 Comp Metabolic Jhg945 CALCIUM 9.5 mg/dL 04/15/2018 Comp Metabolic Qrv183 ALK PHOS 95 U/L 04/15/2018 Comp Metabolic Zrf959 AST(SGOT) 20 U/L 04/15/2018 Comp Metabolic Cxh303 ALT(SGPT) 13 U/L 04/15/2018 Comp Metabolic Hat888 BILI T 0.5 mg/dL 04/15/2018 Comp Metabolic Emx536 ALBUMIN 4.1 g/dL 04/15/2018 Comp Metabolic Jsm315 TPRO 6.6 g/dL 04/15/2018 Comp Metabolic Pxc500 GLOB 2.5 g/dL 04/15/2018 Comp Metabolic Vmn228 A/G Ratio 1.6 Ratio 04/15/2018 Comp Metabolic Kfc382 Osmo 284 mOsmo 04/15/2018 Comp Metabolic Cul341 NA 137 mEq/L 02/04/2018 Comp Metabolic Nzl420 K 4.0 mEq/L 02/04/2018 Comp Metabolic Vjr291 CL 104 mEq/L 02/04/2018 Comp Metabolic Cxa519 CO2 27.0 mEq/L 02/04/2018 Comp Metabolic Fok069 ANION GAP 10 02/04/2018 Comp Metabolic Kxi408 GLUCOSE 212 mg/dL 02/04/2018 Comp Metabolic Hby317 Creat 1.2 mg/dL 02/04/2018 Comp Metabolic Qry008 eGFR 47 ml/min/1.73m2 02/04/2018 Comp Metabolic Aqb245 BUN 20 mg/dL 02/04/2018 Comp Metabolic Drd962 B/C Ratio 16.8 Ratio 02/04/2018 Comp Metabolic Wep007 CALCIUM 8.9 mg/dL 02/04/2018 Comp Metabolic Etd218 ALK PHOS 107 U/L 02/04/2018 Comp Metabolic Izk344 AST(SGOT) 17 U/L 02/04/2018 Comp Metabolic Ats962 ALT(SGPT) 11 U/L 02/04/2018 Comp Metabolic Iyv229 BILI T 0.4 mg/dL 02/04/2018 Comp Metabolic Mmv284 ALBUMIN 3.8 g/dL 02/04/2018 Comp Metabolic Naw159 TPRO 6.2 g/dL 02/04/2018 Comp Metabolic Owx770 GLOB 2.4 g/dL 02/04/2018 Comp Metabolic Dvz932 A/G Ratio 1.6 Ratio 02/04/2018 Comp Metabolic Hfx927 Osmo 283 mOsmo 02/04/2018 %Hba1C Asr169 % HbA1c 51994- 6 6.3 % 12/30/2017 %Hba1C Tqn537 Gluc Ave 134 mg/dL 12/30/2017 Comp Metabolic Zdq376 NA 142 mEq/L 12/30/2017 Comp Metabolic Aga561 K 4.4 mEq/L 12/30/2017 Comp Metabolic Ahj043 CL 103 mEq/L 12/30/2017 Comp Metabolic Eeh650 CO2 31.0 mEq/L 12/30/2017 Comp Metabolic Rpv293 ANION GAP 12 12/30/2017 Comp Metabolic Hko697 GLUCOSE 119 mg/dL 12/30/2017 Comp Metabolic Tps717 Creat 1.4 mg/dL 12/30/2017 Comp Metabolic Bey007 eGFR 41 ml/min/1.73m2 12/30/2017 Comp Metabolic Vlj240 BUN 27 mg/dL 12/30/2017 Comp Metabolic Lmi644 B/C Ratio 20.0 Ratio 12/30/2017 Comp Metabolic Klk288 CALCIUM 9.9 mg/dL 12/30/2017 Comp Metabolic Isn019 ALK PHOS 106 U/L 12/30/2017 Comp Metabolic Dew516 AST(SGOT) 20 U/L 12/30/2017 Comp Metabolic Rpf042 ALT(SGPT) 13 U/L 12/30/2017 Comp Metabolic Xpq302 BILI T 0.7 mg/dL 12/30/2017 Comp Metabolic Ava195 ALBUMIN 4.2 g/dL 12/30/2017 Comp Metabolic Xke315 TPRO 6.7 g/dL 12/30/2017 Comp Metabolic Qya666 GLOB 2.6 g/dL 12/30/2017 Comp Metabolic Pzo609 A/G Ratio 1.6 Ratio 12/30/2017 Comp Metabolic Uvt463 Osmo 289 mOsmo 12/30/2017 Lipid Ord30 CHOL 167 mg/dL 12/30/2017 Lipid Ord30 HDL 63.0 mg/dl 12/30/2017 Lipid Ord30 TRIG 89 mg/dL 12/30/2017 Lipid Ord30 LDL 86 mg/dL 12/30/2017 Lipid Ord30 C/HDL 2.7 Ratio 12/30/2017 Urine Culture Ucult Preliminary NO Growth Day 1 04/17/2017 Urine Culture Ucult Complete NO Growth Day 2 04/17/2017 Comp Metabolic Hdv747 NA 143 mEq/L 04/15/2017 Comp Metabolic Dpz986 K 4.6 mEq/L 04/15/2017 Comp Metabolic Loe432 CL 110 mEq/L 04/15/2017 Comp Metabolic Dyq331 CO2 30.0 mEq/L 04/15/2017 Comp Metabolic Hqz955 ANION GAP 8 04/15/2017 Comp Metabolic Gsl830 GLUCOSE 159 mg/dL 04/15/2017 Comp Metabolic Zcr601 Creat 1.1 mg/dL 04/15/2017 Comp Metabolic Roe837 eGFR 54 ml/min/1.73m2 04/15/2017 Comp Metabolic Khb435 BUN 27 mg/dL 04/15/2017 Comp Metabolic Dou202 B/C Ratio 25.7 Ratio 04/15/2017 Comp Metabolic Viv007 CALCIUM 9.4 mg/dL 04/15/2017 Comp Metabolic Esh784 ALK PHOS 93 U/L 04/15/2017 Comp Metabolic Ycp971 AST(SGOT) 19 U/L 04/15/2017 Comp Metabolic Scr379 ALT(SGPT) 18 U/L 04/15/2017 Comp Metabolic Ivn793 BILI T 0.6 mg/dL 04/15/2017 Comp Metabolic Vhc756 ALBUMIN 3.9 g/dL 04/15/2017 Comp Metabolic Muk215 TPRO 6.5 g/dL 04/15/2017 Comp Metabolic Wvb151 GLOB 2.6 g/dL 04/15/2017 Comp Metabolic Pqk613 A/G Ratio 1.5 Ratio 04/15/2017 Comp Metabolic Qwk192 Osmo 293 mOsmo 04/15/2017 Tsh Ord6 hTSH II 2.05 uIU/mL 04/15/2017 Cbc With Differential Ord2 WBC 7.06 [...] 29.0 pg 04/15/2017 Cbc With Differential Ord2 [place]% 6.9 % 04/15/2017 Cbc With Differential Ord2 Eos% 2.1 % 04/15/2017 Cbc With Differential Ord2 MCHC 33.5 pg 04/15/2017 Cbc With Differential Ord2 PLT 218 K/ul 04/15/2017 Cbc With Differential Ord2 Baso% 0.1 % 04/15/2017 Cbc With Differential Ord2 RDW 14.4 % 04/15/2017 Cbc With Differential Ord2 Neut ABS# 4.83 K/ul 04/15/2017 Cbc With Differential Ord2 Lymph ABS# 1.58 K/ul 04/15/2017 Cbc With Differential Ord2 [place] ABS# 0.5 K/ul 04/15/2017 Cbc With Differential [...] Ord28 U-Com Culture to follow 04/15/2017 %Hba1C Cgz827 % HbA1c 87491- 6 6.3 % 04/15/2017 %Hba1C Jio881 Gluc Ave 134 mg/dL 04/15/2017 %Hba1C Rjt094 % HbA1c 12377- 6 5.8 % 01/07/2017 %Hba1C Nlq892 Gluc Ave 120 mg/dL 01/07/2017 Urine Culture Ucult Preliminary NO Growth Day 1 09/21/2016 Urine Culture Ucult Complete NO Growth Day 2 09/21/2016 %Hba1C Opv235 % HbA1c 11120- 6 6.0 % 09/17/2016 %Hba1C Eue202 Gluc Ave 126 mg/dL 09/17/2016 Microalbumin Hyf640 MicroAlb 44.3 mg/dL 09/17/2016 Tsh Ord6 hTSH [...] 25.6 % 09/17/2016 Cbc With Differential Ord2 [place]% 8.1 % 09/17/2016 Cbc With Differential Ord2 [...] 1.78 K/ul 09/17/2016 Cbc With Differential Ord2 [place] ABS# 0.6 K/ul 09/17/2016 Cbc With Differential Ord2 Eos ABS# 0.2 K/ul 09/17/2016 Cbc With Differential Ord2 Baso ABS# 0.0 K/ul 09/17/2016 Lipid Ord30 CHOL 136 mg/dL 09/17/2016 Lipid Ord30 HDL 50.0 mg/dl 09/17/2016 Lipid Ord30 TRIG 70 mg/dL 09/17/2016 Lipid Ord30 LDL 72 mg/dL 09/17/2016 Lipid Ord30 C/HDL 2.7 Ratio 09/17/2016 Comp Metabolic Pfv888 NA 140 mEq/L 09/17/2016 Comp Metabolic Vjv977 K 4.1 mEq/L 09/17/2016 Comp Metabolic Ulp888 CL 105 mEq/L 09/17/2016 Comp Metabolic Est628 CO2 29.0 mEq/L 09/17/2016 Comp Metabolic Rjj564 ANION GAP 10 09/17/2016 Comp Metabolic Vrw068 GLUCOSE 89 mg/dL 09/17/2016 Comp Metabolic Flt691 Creat 0.9 mg/dL 09/17/2016 Comp Metabolic Nnr721 eGFR 65 ml/min/1.73m2 09/17/2016 Comp Metabolic Nrg792 BUN 20 mg/dL 09/17/2016 Comp Metabolic Zgz167 B/C Ratio 22.2 Ratio 09/17/2016 Comp Metabolic Pfg811 CALCIUM 9.3 mg/dL 09/17/2016 Comp Metabolic Fvp885 ALK PHOS 107 U/L 09/17/2016 Comp Metabolic Ptu103 AST(SGOT) 22 U/L 09/17/2016 Comp Metabolic Laz328 ALT(SGPT) 15 U/L 09/17/2016 Comp Metabolic Iwz329 BILI T 0.7 mg/dL 09/17/2016 Comp Metabolic Dbj608 ALBUMIN 4.0 g/dL 09/17/2016 Comp Metabolic Tys912 TPRO 6.8 g/dL 09/17/2016 Comp Metabolic Ary343 GLOB 2.8 g/dL 09/17/2016 Comp Metabolic Pfi054 A/G Ratio 1.4 Ratio 09/17/2016 Comp Metabolic Etg081 Osmo 281 mOsmo 09/17/2016 Review of Systems System Result Effective [...] G0439 09/06/2018 URINALYSIS NONAUTO W/O SCOPE CPT-4: 55984 12/29/2017 PPPS, SUBSEQ VISIT CPT- 4: G0439 03/30/2017 THER/PROPH/DIAG INJ SC/IM CPT-4: 30671 03/16/2017 TRIAMCINOLONE ACET INJ NOS CPT-4: J3301 03/16/2017 THER/PROPH/DIAG INJ SC/IM CPT-4: 75517 03/12/2017 TRIAMCINOLONE ACET INJ NOS CPT-4: J3301 03/12/2017 THER/PROPH/DIAG INJ SC/IM CPT-4: 09077 11/05/2016 TRIAMCINOLONE ACET INJ NOS CPT-4: J3301 11/05/2016 URINALYSIS NONAUTO W/O SCOPE CPT-4: 15422 09/18/2016 Vital Signs Date Vital 09/06/2018 Blood Pressure 1: 142/66 Code: 8480-6 BMI: 30.9 Code: 47770-5 Heart Rate 1: 64 bpm Height: 5'7" SpO2: 98% Waist Measure (cm): 99 cm Weight: 197 lbs 08/16/2018 Blood Pressure 1: 140/70 Code: 8480-6 BMI: 34.4 Code: 65744-0 Heart Rate 1: 63 bpm Height: 5'7" SpO2: 95% Weight: 219 lbs 14 oz 04/12/2018 Blood Pressure 1: 160/70 Code: 8480-6 BMI: 33.0 Code: 81902-2 Heart Rate 1: 82 bpm Height: 5'7" SpO2: 95% Weight: 211 lbs 01/20/2018 Blood Pressure 1: 152/66 Code: 8480-6 BMI: 31.8 Code: 45894-7 Heart Rate 1: 52 bpm Height: 5'7" SpO2: 98% Temperature: 36.3 (C) / 97.3 (F) Weight: 203 lbs 12/29/2017 Blood Pressure 1: 168/72 Code: 8480-6 BMI: 32.1 Code: 94112-7 Heart Rate 1: 63 bpm Height: 5'7" SpO2: 98% Weight: 205 lbs 08/24/2017 Blood Pressure 1: 186/70 Code: 8480-6 Blood Pressure 1: 150/70 Code: 8480-6 BMI: 31.8 Code: 56698-6 Heart Rate 1: 53 bpm Height: 5'7" SpO2: 98% Weight: 203 lbs 07/26/2017 Blood Pressure 1: 206/78 Code: 8480-6 Blood Pressure 2: 210/84 Code: 8480-6 BMI: 32.0 Code: 94144-5 Heart Rate 1: 49 bpm Height: 5'7" SpO2: 97% Weight: 204 lbs 07/20/2017 Blood Pressure 1: 148/82 Code: 8480-6 Heart Rate 1: 90 bpm SpO2: 98% 05/27/2017 Blood Pressure 1: 142/72 Code: 8480-6 BMI: 30.5 Code: 66395-3 Heart Rate 1: 97 bpm Height: 5'7" SpO2: 98% Weight: 195 lbs 05/07/2017 Blood Pressure 1: 156/84 Code: 8480-6 Heart Rate 1: 90 bpm SpO2: 98% 05/03/2017 Blood Pressure 1: 140/70 Code: 8480-6 Blood Pressure 1: 100/68 Code: 8480-6 Blood Pressure 2: 138/70 Code: 8480-6 Heart Rate 1: 122 bpm Heart Rate 1: 80 bpm Height: SpO2: 96% Weight: 04/15/2017 Blood Pressure 1: 148/70 Code: 8480-6 BMI: 30.4 Code: 14181-5 Heart Rate 1: 54 bpm Height: 5'7" SpO2: 97% Weight: 194 lbs 03/30/2017 BMI: 33.2 Code: 70577-0 Height: 5'7" Weight: 212 lbs 03/16/2017 Blood Pressure 1: 140/80 Code: 8480-6 BMI: 34.0 Code: 97252-6 Heart Rate 1: 70 bpm Height: 5'7" SpO2: 95% Weight: 217 lbs 03/12/2017 Blood Pressure 1: 142/80 Code: 8480-6 BMI: 34.0 Code: 72198-4 Heart Rate 1: 76 bpm Height: 5'7" SpO2: 92% Weight: 217 lbs 02/17/2017 Blood Pressure 1: 162/64 Code: 8480-6 BMI: 32.9 Code: 05860-7 Heart Rate 1: 59 bpm Height: 5'7" SpO2: 97% Weight: 210 lbs 01/20/2017 Blood Pressure 1: 162/74 Code: 8480-6 BMI: 32.9 Code: 15815-4 Heart Rate 1: 56 bpm Height: 5'7" SpO2: 98% Weight: 210 lbs 11/17/2016 Blood Pressure 1: 156/60 Code: 8480-6 BMI: 34.8 Code: 34117-7 Heart Rate 1: 63 bpm Height: 5'7" SpO2: 96% Weight: 222 lbs 11/05/2016 Blood Pressure 1: 160/68 Code: 8480-6 BMI: 34.5 Code: 73624-2 Heart Rate 1: 66 bpm Height: 5'7" SpO2: 97% Temperature: 36.9 (C) / 98.5 (F) Weight: 220 lbs 09/21/2016 Blood Pressure 1: 180/72 Code: 8480-6 Blood Pressure 1: 166/72 Code: 8480-6 BMI: 32.1 Code: 69329-2 Heart Rate 1: 57 bpm Height: 5'7" SpO2: 98% Weight: 205 lbs 09/16/2016 Blood Pressure 1: 168/70 Code: 8480-6 Heart Rate 1: 49 bpm SpO2: 95% 08/03/2016 Blood Pressure 1: 162/70 Code: 8480-6 BMI: 32.0 Code: 20053-9 Heart Rate 1: 43 bpm Height: 5'7" SpO2: 98% Weight: 204 lbs 07/06/2016 Blood Pressure 1: 170/86 Code: 8480-6 BMI: 32.0 Code: 55419-6 Heart Rate 1: 48 bpm Height: 5'7" [...] data Encounters Encounter Performer Location Codes Date ([id number]) [id number] EST. PATIENT, LEVEL IV Diagnosis: Essential (primary) hypertension[ICD10: I10] Diagnosis: Type 2 diabetes mellitus without complications[ICD10: E11.9] Diagnosis: Mixed hyperlipidemia[ICD10: E78.2] Fifi Camejo MD, [facility] CPT- 4: 85916 08/16/2018 [id number]) 69807 EST. PATIENT, LEVEL IV Diagnosis: Type 2 diabetes mellitus without complications[ICD10: E11.9] Diagnosis: Mixed hyperlipidemia[ICD10: E78.2] Diagnosis: Essential (primary) hypertension[ICD10: I10] Diagnosis: Dysuria[ICD10: R30.0] Diagnosis: Pain in left foot[ICD10: M79.672] Fifi Camejo MD, [facility] CPT- 4: 57611 04/12/2018 [id number]) [id number] EST. PATIENT, LEVEL III Diagnosis: Otalgia, bilateral[ICD10: H92.03] Diagnosis: Other allergic rhinitis[ICD10: J30.89] Yuridia Camejo MD, [facility] CPT-4: 91476 01/20/2018 ([id number] 79799 EST. PATIENT, LEVEL IV Diagnosis: Type 2 diabetes mellitus without complications[ICD10: E11.9] Diagnosis: Mixed hyperlipidemia[ICD10: E78.2] Diagnosis: Essential (primary) hypertension[ICD10: I10] Diagnosis: Dysuria[ICD10: R30.0] Fifi Camejo MD, [facility] CPT-4: 85322 12/29/2017 ([id number]) 09119 EST. PATIENT, LEVEL IV Diagnosis: Essential (primary) hypertension[ICD10: I10] Diagnosis: Cysts of left upper eyelid[ICD10: H02.824] Diagnosis: Pain in left foot[ICD10: M79.672] Fifi Camejo MD, [facility] CPT- 4: 31826 08/24/2017 ([id number]) 70927 EST. PATIENT, LEVEL III Diagnosis: Essential (primary) hypertension[ICD10: I10] Fifi Camejo MD, [facility] CPT-4: 15147 07/26/2017 ([id number]) Miscellaneous no charge Diagnosis: Essential (primary) hypertension[ICD10: I10] Fifi Camejo MD, [facility] CPT-4: 61809 07/20/2017 [id number] EST. PATIENT, LEVEL III Diagnosis: Otalgia, bilateral[ICD10: H92.03] Diagnosis: Dizziness and giddiness[ICD10: R42] Diagnosis: Mixed hyperlipidemia[ICD10: E78.2] Krysta Camejo MD, [facility] CPT-4: 00881 05/27/2017 ([id number]) Miscellaneous no charge Diagnosis: Essential (primary) hypertension[ICD10: I10] Krysta Camejo MD, [facility] CPT-4: 14503 05/07/2017 ([id number]) 20470 EST. PATIENT, LEVEL IV Diagnosis: Otalgia, bilateral[ICD10: H92.03] Diagnosis: Dizziness and giddiness[ICD10: R42] Diagnosis: Orthostatic hypotension[ICD10: I95.1] Fifi Camejo MD, [facility] CPT-4: 37742 05/03/2017 02061 EST. PATIENT, LEVEL IV Diagnosis: Essential (primary) hypertension[ICD10: I10] Diagnosis: Type 2 diabetes mellitus without complications[ICD10: E11.9] Diagnosis: Gastro-esophageal reflux disease without esophagitis[ICD10: K21.9] Diagnosis: Dizziness and giddiness[ICD10: R42] Diagnosis: Dysuria[ICD10: R30.0] Diagnosis: Other malaise[ICD10: R53.81] Krysta Camejo MD, [facility] CPT-4: 17962 04/15/2017 ([id number]) 33150 EST. PATIENT, LEVEL IV Diagnosis: Type 2 diabetes mellitus without complications[ICD10: E11.9] Diagnosis: Otalgia, bilateral[ICD10: H92.03] Diagnosis: Essential (primary) hypertension[ICD10: I10] Diagnosis: Other allergic rhinitis[ICD10: J30.89] Fifi Camejo MD [facility] CPT-4: 32994 03/16/2017 91156 EST. PATIENT, LEVEL IV Diagnosis: Other acute sinusitis[ICD10: J01.80] Diagnosis: Acute suppurative otitis media without spontaneous rupture of ear drum, bilateral[ICD10: H66.003] Diagnosis: Other allergic rhinitis[ICD10: J30.89] Krysta Camejo MD, [facility] CPT- 4: 37290 03/12/2017 ([id number]) 90340 EST. PATIENT, LEVEL IV Diagnosis: Essential (primary) hypertension[ICD10: I10] Diagnosis: Type 2 diabetes mellitus without complications[ICD10: E11.9] Fifi Camejo MD [facility] CPT-4: 63945 02/17/2017 ([id number]) 60294 EST. PATIENT, LEVEL IV Diagnosis: Essential (primary) hypertension[ICD10: I10] Diagnosis: Type 2 diabetes mellitus without complications[ICD10: E11.9] Fifi Camejo MD [facility] CPT-4: 90819 01/20/2017 ([id number]) 98710 EST. PATIENT, LEVEL IV Diagnosis: Essential (primary) hypertension[ICD10: I10] Diagnosis: Type 2 diabetes mellitus without complications[ICD10: E11.9] Diagnosis: Gastro-esophageal reflux disease without esophagitis[ICD10: K21.9] Fifi Camejo MD, [facility] CPT-4: 41757 11/17/2016 ([id number]) 72614 EST. PATIENT, LEVEL III Diagnosis: Acute bronchitis due to other specified organisms[ICD10: J20.8] Diagnosis: Cough[ICD10: R05] [facility] Redmond MD CPT-4: 24047 11/05/2016 ([id number]) 49249 EST. PATIENT, LEVEL IV Diagnosis: Essential (primary) hypertension[ICD10: I10] Diagnosis: Type 2 diabetes mellitus without complications[ICD10: E11.9] [facility]AND[facility] Redmond MD CPT-4: 94922 09/21/2016 ([id number]) Miscellaneous no charge Diagnosis: Essential (primary) hypertension[ICD10: I10] RANDALL Redmond MD CPT-4: 07197 09/16/2016 ([id number]) 58931 EST. PATIENT, LEVEL III Diagnosis: Type 2 diabetes mellitus without complications[ICD10: E11.9] Diagnosis: Essential (primary) hypertension[ICD10: I10] Fifi Camejo MD, [facility] CPT-4: 55943 08/03/2016 ([id number]) OFFICE VISIT, NEW - LEVEL 4 Diagnosis: Essential (primary) hypertension[ICD10: I10] Diagnosis: Type 2 diabetes mellitus without complications[ICD10: E11.9] Diagnosis: Carpal tunnel syndrome, left upper limb[ICD10: G56.02] Diagnosis: Right upper quadrant pain[ICD10: R10.11] Diagnosis: Mixed hyperlipidemia[ICD10: E78.2] Fifi Camejo MD, [facility] CPT- 4: 90999 07/06/2016 Plan of Care Planned Activity Notes [...] surrogate. 09/06/2018 Appointment: Yuridia Walsh WPtel: [phone] [phone] [facility] - Annual Wellness Visit 09/06/2018 Patient Education: Patient Medication Summary Completed 09/06/2018 Appointment: Yuridia Walsh WPtel: [phone] [phone] [facility] - Annual Wellness Visit 08/29/2018 Visit [...] me dications. 08/16/2018 Appointment: Fifi Camejo WPtel: [phone] [facility] (15 min) Moderate 08/16/2018 [...] foot. 04/12/2018 App[facility]ment: [phone] ([facility]) Moderate 04/12/2018 Patient Education: Patient Medication Summary Completed 04/12/2018 Care Plan: Referral Order SNOMED-CT : [id number] Pending 04/12/2018 Patient Education: Patient Medication Summary [...] spray. 01/20/2018 [phone] [place] (15 min) Moderate 01/20/2018 Patient [...] controlled. 12/29/2017 Appointment: Fifi Camejo WPtel: [phone] [facility] (15 min) Moderate 12/29/2017 Patient Education: Patient [...] [place] 08/24/2017 Appointment: [facility]Ptel[phone] [facility] [place] (15 min) Moderate 08/24/2017 Patient Education: Patient Medication Summary Completed 08/24/2017 Care Plan: Referral Order SNOMED-CT : [id number] Pending 08/24/2017 Visit Plan: Hypertension - uncontrolled [...] above. 07/26/2017 Appointment: [facility]el[phone] [facility] (15 min) Moderate 07/26/2017 Patient Education: [...] medications. 05/27/2017 App[facility]ment[phone] ([facility] min) Moderate 05/27/2017 Patient Education: Patient Medication Summary Completed 05/27/2017 Appointment: Nurse Visit 05/07/2017 Patient Education: Patient Medication Summary Completed 05/07/2017 Visit Plan: Persistent vergito with bilateral air-fluid levels and ear pain. Pt was seen by Dr. Calvo- she did not like his response to her complaints. I have recommended a referral to ENT in [place] or [place]. I suspect she may need myringotomy tubes. Pt to continue with flonase. Orthostatic hypotension - dc doxazosin. Monitor blood pressures at home. stop the doxazosin meclizine change to 1/2 pill three times a day come back on Wednesday for blood pressure check 05/03/2017 Appointment: Fifi [facility]ame[facility]Ptel[facility] [phone] [facility] [place] (15 min) Moderate 05/03/2017 Patient Education: Patient Medication Summary Completed 05/03/2017 Appointment: Fifi [facility]amejo WPtel[facility] [phone] [facility] [place] (15 min) Moderate 04/21/2017 [...] control. 04/15/2017 App[facility]ment: [phone] ([facility] min) Complex 04/15/2017 Patient Education: [...] surrogate. 03/30/2017 Appointment: [phone] [facility] - Annual Wellness Visit 03/30/2017 Patient [...] [facility] 24 Hypertension - well controlled - continue with current medications, continue with no added salt diet. Pt has been encouraged to exercise daily. The pt has been advised to call the office if there are any acute concerns about change in blood pressure readings at home. 03/16/2017 Appointment: Fifi Camejo WPtel: [phone] [facility] (30 min) Complex 03/16/2017 Patient Education: Patient Medication Summary Completed 03/16/2017 Patient Education: Obesity Completed 03/16/2017 Care Plan: Referral Order SNOMED-CT : [id number] Pending 03/16/2017 Visit Plan: Allergies - chronic [...] worsen. 03/12/2017 Appointment: [facility]ryst[phone] (15 min) Moderate 03/12/2017 Patient Education: [...] controlled. 02/17/2017 Appointment: Fifi Camejo WPtel: [phone] [facility] (30 min) Complex 02/17/2017 Patient [...] less controlled. 01/20/2017 Appointment: Fifi Camejo WPtel[facility] [phone] [facility] (30 min) Complex 01/20/2017 Patient [...] dexilant 11/17/2016 Appointment: Fifi Camejo WPtel[facility] [phone] [facility] (30 min) Complex 11/17/2016 Patient [...] range. 09/21/2016 Appointment: Fifi Camejo WPtel: [phone] [facility] (15 min) Moderate 09/21/2016 Patient [...] time. 08/03/2016 Appointment: Fifi Camejo WPtel: [phone] [facility] (15 min) Moderate 08/03/2016 Patient Education: [...] night, call if not improving. 07/06/2016 Appointment: Nell Fifi WPtel: [facility] New Patient 07/06/2016 Patient Education: Patient Medication Summary Completed 07/06/2016 Patient Education: Obesity Completed 07/06/2016 Referral: Dr Calvo Referral Completed Referral: Freeman Huff Referral Appointment Requested Referral: External, Ordering Provider Referral Appointment Requested Instructions Comment recommend shingles vaccine . Medicare Exam - [...] for health care surrogate. . Hypertension - well controlled - continue [...] braces at night, call if not improving. Stay off of your bystolic Stop the [...] monitor your heart rate Consider referral for institutional asset manager for possible stress test if needed. [...] monitor your heart rate Consider referral for institutional asset manager for possible stress test if needed. [...] to allow for greater blood glucose control. Decrease doxazosin to 1 pill - write [...] have recommended a referral to ENT in [place] or [place]. I suspect she may need myringotomy tubes. [...] steroid allergy spray. . Hypertension - uncontrolled today in the [...] recommended referral [facility] [place] [facility]. Flonase nasal spray twice a [...] assure normal liver response to medications. . Persistent vergito with bilateral air-fluid levels [...]
--- OUTSIDE RECORDS SUMMARY | 2019-03-08 17:20 | XMS REPORT | CCD ---
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 Name Role Phone PP Unavailable CCM Unavailable Summary Purpose Interface Exchange Insurance Providers Payer name Policy type / Coverage type Covered libertarian ID Effective Begin Date Effective End Date WPS Medicare Part B Medicare Part B [id number] 2018 Unknown FOR LIFE WPS Medicare Part B [id number] 2018 Unknown Family history Father Diagnosis Age At Onset Cancer Unknown Brother Diagnosis Age At Onset Diabetes mellitus Type 2 Unknown Heart Attack Unknown Social History Social History Element Codes Description Effective Dates Marital status Unknown Wu 11/05/2016 Number of children Unknown 1 07/06/2016 Employment Unknown Retired 07/06/[address]: 921529918 Never smoker 07/06/[address]: 105618896 Never drinks alcohol 07/06/2016 Allergies, Adverse Reactions, Alerts Substance Reaction Codes Entered Date Inactivated Date Status Protonix hives RxNorm: 997283 09/06/2018 No Inactive Date Active IV DYE, [...] Date Stop Date Status Fill Instructions Zithromax Z-Juna 250 mg tablet RxNorm: 201743 1 Tablet(s) PO UD 08/22/2018 08/26/2018 Inactive zpack as directed clonidine HCl 0.1 mg tablet RxNorm: 004341 1 Tablet(s) PO QAM 08/16/2018 08/10/2019 Active losartan 100 mg tablet RxNorm: 269591 1 TABLET(S) PO DAILY FOR HIGH BLOOD PRESSURE 08/12/2018 No Stop Date Active alprazolam 0.5 mg tablet RxNorm: 995941 1 Tablet(s) PO TID as needed anxiety 06/30/2018 12/26/2018 Active fluticasone 50 mcg/actuation nasal spray,suspension RxNorm: 2155930 USE 1 SPRAY NASALLY TWICE A DAY 05/06/2018 No Stop Date Active clonidine HCl 0.1 mg tablet RxNorm: 704679 1 Tablet(s) PO BID 04/14/2018 08/15/2018 Inactive clonidine HCl 0.1 mg tablet RxNorm: 069736 1 Tablet(s) PO TID 04/12/2018 04/13/2018 Inactive Zithromax Z-Juan 250 mg tablet RxNorm: 163513 1 Tablet(s) PO UD 01/20/2018 08/21/2018 Inactive disregard first rx for 1 - patient needs 3 packs-please dispense generic azithromycin Zithromax Z-Juan 250 mg tablet RxNorm: 206926 1 Tablet(s) PO UD 01/20/2018 01/19/2018 Inactive Zithromax Z-Juan 250 mg tablet RxNorm: 507159 1 Tablet(s) PO UD 01/20/2018 01/19/2018 Inactive disregard first rx for 1 - patient needs 3 packs Zithromax Z-Juan 250 mg tablet RxNorm: 143460 1 Tablet(s) PO UD 01/20/2018 01/19/2018 Inactive atorvastatin 10 mg tablet RxNorm: 320792 1 Tablet(s) PO QPM 12/30/2017 12/24/2018 Active atorvastatin 10 mg tablet RxNorm: 079872 1 Tablet(s) PO QPM 12/30/2017 12/29/2017 Inactive metoprolol tartrate 50 mg tablet RxNorm: 040472 1/2 Tablet(s) PO BID 12/29/2017 12/23/2018 Active clonidine HCl 0.1 mg tablet RxNorm: 846990 1 Tablet(s) PO BID 12/29/2017 04/11/2018 Inactive Lipitor 10 mg tablet RxNorm: 584693 1 Tablet(s) PO QPM 12/29/2017 12/29/2017 Inactive OKAY TO DISPENSE GENERIC alprazolam 0.5 mg tablet RxNorm: 145047 1 Tablet(s) PO TID as needed anxiety 11/18/2017 05/16/2018 Inactive glimepiride 4 mg tablet RxNorm: 327285 1 TABLET(S) PO DAILY 11/15/2017 No Stop Date Active alprazolam 0.5 mg tablet RxNorm: 328042 1 Tablet(s) PO TID as needed anxiety 09/20/2017 11/17/2017 Inactive Zithromax Z-Juan 250 mg tablet RxNorm: 871848 1 Tablet(s) PO UD 09/20/2017 12/28/2017 Inactive Zithromax Z-Juan 250 mg tablet RxNorm: 190657 1 Tablet(s) PO UD 09/14/2017 09/19/2017 Inactive amlodipine 10 mg tablet RxNorm: 871013 1 Tablet(s) PO daily 08/24/2017 08/18/2018 Inactive clonidine HCl 0.1 mg tablet RxNorm: 391103 1/2 Tablet(s) PO BID 08/24/2017 12/28/2017 Inactive erythromycin 5 mg/gram (0.5 %) eye ointment RxNorm: 582199 1 Gram(s) ophthalmic (eye) QID left eye cyst 08/24/2017 09/06/2017 Inactive losartan 100 mg tablet RxNorm: 235534 1 Tablet(s) PO daily for high blood pressure 08/16/2017 08/10/2018 Inactive metoprolol tartrate 50 mg tablet RxNorm: 454461 1/2 Tablet(s) PO BID 07/26/2017 12/28/2017 Inactive clonidine HCl 0.1 mg tablet RxNorm: 435989 1/2 Tablet(s) PO BID 07/26/2017 08/23/2017 Inactive metoprolol tartrate 50 mg tablet RxNorm: 382858 1 Tablet(s) PO BID 07/21/2017 07/25/2017 Inactive amlodipine 10 mg tablet RxNorm: 668394 1 TABLET(S) PO DAILY 06/29/2017 08/23/2017 Inactive Lipitor 10 mg tablet RxNorm: 666307 1 Tablet(s) PO QPM 05/27/2017 12/28/2017 Inactive OKAY TO DISPENSE GENERIC alprazolam 0.5 mg tablet RxNorm: 947056 1 Tablet(s) PO TID as needed anxiety 05/18/2017 08/15/2017 Inactive hydrochlorothiazide 12.5 mg tablet RxNorm: 212225 1 Tablet(s) PO daily 04/22/2017 05/21/2017 Inactive hydrochlorothiazide 12.5 mg tablet RxNorm: 403737 1 Tablet(s) PO daily 04/22/2017 04/21/2017 Inactive Cipro 500 mg tablet RxNorm: 779743 1 Tablet(s) PO BID 04/16/2017 04/22/2017 Inactive Zofran 4 mg tablet RxNorm: 030231 1 Tablet(s) PO BID as needed nausea and vomitting 04/15/2017 04/19/2017 Inactive Lipitor 10 mg tablet RxNorm: 764439 1 Tablet(s) PO QPM 03/30/2017 05/26/2017 Inactive OKAY TO DISPENSE GENERIC Kenalog 40 mg/mL suspension for injection RxNorm: 6510253 1 Milliliter(s) Inj 03/16/2017 03/16/2017 Inactive doxazosin 4 mg tablet RxNorm: 441184 1.5 Tablet(s) PO BID 03/16/2017 05/02/2017 Inactive prednisone 10 mg tablets in a dose pack RxNorm: 052987 Tablet(s) take dose pack as directed PO take with food 03/16/2017 05/23/2017 Inactive Kenalog 40 mg/mL suspension for injection RxNorm: 0849276 Milliliter(s) Inj 03/12/2017 03/12/2017 Inactive Zithromax Z-Juan 250 mg tablet RxNorm: 149821 1 Tablet(s) PO daily 03/11/2017 03/10/2017 Inactive zpack as directed Zithromax Z-Juan 250 mg tablet RxNorm: 787192 1 Tablet(s) PO daily 03/11/2017 03/15/2017 Inactive zpack as directed doxazosin 4 mg tablet RxNorm: 552629 1.5 Tablet(s) PO BID 02/12/2017 03/15/2017 Inactive fluticasone 50 mcg/actuation nasal spray,suspension RxNorm: 1337244 1 SPRAY NASAL BID 02/05/2017 05/05/2018 Inactive metoprolol tartrate 75 mg tablet RxNorm: 2494839 1 Tablet(s) PO BID 01/29/2017 07/19/2017 Inactive metoprolol tartrate 75 mg tablet RxNorm: 4567676 1 Tablet(s) PO BID 01/29/2017 01/28/2017 Inactive doxazosin 4 mg tablet RxNorm: 241642 1 Tablet(s) PO BID 01/20/2017 02/11/2017 Inactive pantoprazole 40 mg tablet,delayed release RxNorm: 652464 1 Tablet(s) PO daily 12/24/2016 01/19/2017 Inactive pantoprazole 40 mg tablet,delayed release RxNorm: 478159 1 Tablet(s) PO daily 12/24/2016 12/23/2016 Inactive alprazolam 0.5 mg tablet RxNorm: 462384 1 Tablet(s) PO TID as needed anxiety 12/03/2016 04/01/2017 Inactive fluticasone 50 mcg/actuation nasal spray,suspension RxNorm: 8800047 1 [place] NASAL BID 11/25/2016 12/24/2016 Inactive Dexilant 60 mg capsule, delayed release RxNorm: 124474 1 Capsule(s) PO daily 11/25/2016 11/24/2016 Inactive fluticasone 50 mcg/actuation nasal spray,suspension RxNorm: 4694388 1 [place] NASAL BID 11/25/2016 11/24/2016 Inactive fluticasone 50 mcg/actuation nasal spray,suspension RxNorm: 5731040 1 [place] NASAL BID 11/25/2016 11/24/2016 Inactive Dexilant 60 mg capsule, delayed release RxNorm: 311664 1 Capsule(s) PO daily 11/25/2016 12/23/2016 Inactive ProAir RespiClick 90 mcg/actuation breath activated RxNorm: 2253028 1 INH bid and QID as needed 11/19/2016 05/17/2017 Inactive Please send STAT Flonase Allergy Relief 50 mcg/actuation nasal spray,suspension RxNorm: 9321011 1 [place] NASAL BID 11/19/2016 11/24/2016 Inactive glimepiride 4 mg tablet RxNorm: 708933 1 Tablet(s) PO daily 11/19/2016 11/13/2017 Inactive metoprolol tartrate 50 mg tablet RxNorm: 470382 1 Tablet(s) PO BID 11/19/2016 01/28/2017 Inactive Flonase Allergy Relief 50 mcg/actuation nasal spray,suspension RxNorm: 1675103 1 [place] NASAL BID 11/17/2016 11/18/2016 Inactive metoprolol tartrate 50 mg tablet RxNorm: 928334 1 Tablet(s) PO BID 11/17/2016 11/18/2016 Inactive ProAir RespiClick 90 mcg/actuation breath activated RxNorm: 2065897 1 INH bid and QID as needed 11/17/2016 11/16/2016 Inactive glimepiride 4 mg tablet RxNorm: 192485 1 Tablet(s) PO daily 11/17/2016 11/18/2016 Inactive ProAir RespiClick 90 mcg/actuation breath activated RxNorm: 4792336 1 INH bid and QID as needed 11/17/2016 11/18/2016 Inactive Please send STAT Kenalog 40 mg/mL suspension for injection RxNorm: 3113727 1 Milliliter(s) Inj 11/05/2016 11/05/2016 Inactive azithromycin 250 mg tablet RxNorm: 092075 Tablet(s) PO 2 tabs on day #1, then daily x 4 days 11/05/2016 12/23/2016 Inactive doxazosin 4 mg tablet RxNorm: 970221 1 Tablet(s) PO QPM 10/02/2016 01/19/2017 Inactive doxazosin 4 mg tablet RxNorm: 885140 1 Tablet(s) PO QPM 09/29/2016 10/01/2016 Inactive doxazosin 4 mg tablet RxNorm: 891505 1 Tablet(s) PO QPM 09/21/2016 09/28/2016 Inactive Cipro 500 mg tablet RxNorm: 279226 1 Tablet(s) PO BID 09/18/2016 09/17/2016 Inactive Cipro 500 mg tablet RxNorm: 609308 1 Tablet(s) PO BID 09/18/2016 09/24/2016 Inactive losartan 100 mg tablet RxNorm: 635655 1 Tablet(s) PO daily for high blood pressure 09/16/2016 09/15/2016 Inactive alprazolam 0.5 mg tablet RxNorm: 941088 1 Tablet(s) PO TID as needed anxiety 09/16/2016 11/14/2016 Inactive losartan 100 mg tablet RxNorm: 041333 1 Tablet(s) PO daily for high blood pressure 09/16/2016 08/15/2017 Inactive amlodipine 10 mg tablet RxNorm: 938415 1 Tablet(s) PO daily 08/03/2016 06/28/2017 Inactive Zyrtec 10 mg tablet RxNorm: 4155668 1 Tablet(s) PO daily 08/03/2016 09/15/2016 Inactive losartan 25 mg tablet RxNorm: 921148 1 Tablet(s) PO daily 07/08/2016 09/15/2016 Inactive Lipitor 10 mg tablet RxNorm: 479415 1 Tablet(s) PO QPM 07/08/2016 07/17/2016 Inactive OKAY TO DISPENSE GENERIC Lipitor 10 mg tablet RxNorm: 036893 1 Tablet(s) PO QPM 07/06/2016 07/07/2016 Inactive OKAY TO DISPENSE GENERIC losartan 25 mg tablet RxNorm: 878252 1 Tablet(s) PO daily 07/06/2016 07/07/2016 Inactive meclizine 25 mg tablet RxNorm: 692381 1 Tablet(s) PO TID as needed No Start Date Active Parafon Forte DSC 500 mg tablet RxNorm: 120047 1 Tablet(s) PO QID No Start Date Active Pazeo 0.7 % eye drops RxNorm: 8138133 Drop(s) ophthalmic (eye) as needed dry eyes No Start Date Active Zithromax Z-Juan 250 mg tablet RxNorm: 489717 1 Tablet(s) PO UD No Start Date 09/13/2017 Inactive glimepiride 4 mg tablet RxNorm: 362173 1 Tablet(s) PO daily No Start Date 11/16/2016 Inactive metoprolol tartrate 100 mg tablet RxNorm: 349778 1 Tablet(s) PO BID No Start Date 07/21/2017 Inactive naproxen 500 mg tablet RxNorm: 774727 1 Tablet(s) PO BID No Start Date 03/23/2017 Inactive amlodipine 5 mg tablet RxNorm: 000234 1 Tablet(s) PO daily No Start Date 08/02/2016 Inactive metoprolol tartrate 50 mg tablet RxNorm: 619512 1 Tablet(s) PO BID No Start Date 11/16/2016 Inactive Medication Administered Medication Codes Instructions Start Date Status Kenalog 40 mg/mL suspension for injection RxNorm: 9477630 1Milliliter 03/16/2017 No longer Active Kenalog 40 mg/mL suspension for injection RxNorm: 1839489 Milliliter 03/12/2017 No longer Active Kenalog 40 mg/mL suspension for injection RxNorm: 8154380 1Milliliter 11/05/2016 No longer Active Immunizations Vaccine [...] Lipid Ord30 C/HDL 3.1 Ratio 08/18/2018 Microalbumin Qsp407 MicroAlb 7.5 mg/dL 08/18/2018 Cbc With Differential [...] 29.6 pg 08/18/2018 Cbc With Differential Ord2 [place]% 10.6 % 08/18/2018 Cbc With Differential Ord2 [...] 1.69 K/ul 08/18/2018 Cbc With Differential Ord2 [place] ABS# 0.6 K/ul 08/18/2018 Cbc With Differential Ord2 Eos ABS# 0.3 K/ul 08/18/2018 Cbc With Differential Ord2 Baso ABS# 0.0 K/ul 08/18/2018 Comp Metabolic Yon334 NA 137 mEq/L 08/18/2018 Comp Metabolic Xnt460 K 3.8 mEq/L 08/18/2018 Comp Metabolic Wqv834 CL 103 mEq/L 08/18/2018 Comp Metabolic Fbm722 CO2 26.0 mEq/L 08/18/2018 Comp Metabolic Zjr940 ANION GAP 12 08/18/2018 Comp Metabolic Equ964 GLUCOSE 110 mg/dL 08/18/2018 Comp Metabolic Aka511 Creat 1.2 mg/dL 08/18/2018 Comp Metabolic Ybz694 eGFR 47 ml/min/1.73m2 08/18/2018 Comp Metabolic Gnv152 BUN 25 mg/dL 08/18/2018 Comp Metabolic Gop976 B/C Ratio 21.0 Ratio 08/18/2018 Comp Metabolic Sfu437 CALCIUM 9.4 mg/dL 08/18/2018 Comp Metabolic Ncf626 ALK PHOS 99 U/L 08/18/2018 Comp Metabolic Joi385 AST(SGOT) 31 U/L 08/18/2018 Comp Metabolic Xbt219 ALT(SGPT) 27 U/L 08/18/2018 Comp Metabolic Jmw780 BILI T 0.7 mg/dL 08/18/2018 Comp Metabolic Vhk326 ALBUMIN 4.2 g/dL 08/18/2018 Comp Metabolic Wlo009 TPRO 6.7 g/dL 08/18/2018 Comp Metabolic Tfe611 GLOB 2.5 g/dL 08/18/2018 Comp Metabolic Duu037 A/G Ratio 1.7 Ratio 08/18/2018 Comp Metabolic Xpn123 Osmo 279 mOsmo 08/18/2018 %Hba1C Iur205 % HbA1c 71207- 6 6.1 % 08/18/2018 %Hba1C Ehd826 Gluc Ave 128 mg/dL 08/18/2018 Tsh Ord6 TSH (3rd IS) 3.93 uIU/mL 08/18/2018 Lipid Ord30 CHOL 146 mg/dL 04/15/2018 Lipid Ord30 HDL 62.0 mg/dl 04/15/2018 Lipid Ord30 TRIG 88 mg/dL 04/15/2018 Lipid Ord30 LDL 66 mg/dL 04/15/2018 Lipid Ord30 C/HDL 2.4 Ratio 04/15/2018 %Hba1C Fve328 % HbA1c 45425- 6 6.3 % 04/15/2018 %Hba1C Rwa679 Gluc Ave 134 mg/dL 04/15/2018 Cbc With [...] 30.2 pg 04/15/2018 Cbc With Differential Ord2 [place]% 6.8 % 04/15/2018 Cbc With Differential Ord2 [...] 2.10 K/ul 04/15/2018 Cbc With Differential Ord2 [place] ABS# 0.5 K/ul 04/15/2018 Cbc With Differential Ord2 Eos ABS# 0.2 K/ul 04/15/2018 Cbc With Differential Ord2 Baso ABS# 0.0 K/ul 04/15/2018 Comp Metabolic Wri300 NA 140 mEq/L 04/15/2018 Comp Metabolic Zos289 K 4.3 mEq/L 04/15/2018 Comp Metabolic Ett850 CL 106 mEq/L 04/15/2018 Comp Metabolic Eob111 CO2 23.0 mEq/L 04/15/2018 Comp Metabolic Cdi251 ANION GAP 15 04/15/2018 Comp Metabolic Ctd243 GLUCOSE 90 mg/dL 04/15/2018 Comp Metabolic Jfg239 Creat 1.2 mg/dL 04/15/2018 Comp Metabolic Ilb001 eGFR 45 ml/min/1.73m2 04/15/2018 Comp Metabolic Etc516 BUN 28 mg/dL 04/15/2018 Comp Metabolic Urd983 B/C Ratio 22.8 Ratio 04/15/2018 Comp Metabolic Nvj699 CALCIUM 9.5 mg/dL 04/15/2018 Comp Metabolic Iww045 ALK PHOS 95 U/L 04/15/2018 Comp Metabolic Bqe168 AST(SGOT) 20 U/L 04/15/2018 Comp Metabolic Xuh397 ALT(SGPT) 13 U/L 04/15/2018 Comp Metabolic Wsu660 BILI T 0.5 mg/dL 04/15/2018 Comp Metabolic Zrw865 ALBUMIN 4.1 g/dL 04/15/2018 Comp Metabolic Omp843 TPRO 6.6 g/dL 04/15/2018 Comp Metabolic Zki003 GLOB 2.5 g/dL 04/15/2018 Comp Metabolic Bye404 A/G Ratio 1.6 Ratio 04/15/2018 Comp Metabolic Yjy190 Osmo 284 mOsmo 04/15/2018 Comp Metabolic Edb553 NA 137 mEq/L 02/04/2018 Comp Metabolic Tee556 K 4.0 mEq/L 02/04/2018 Comp Metabolic Ocl741 CL 104 mEq/L 02/04/2018 Comp Metabolic Phg978 CO2 27.0 mEq/L 02/04/2018 Comp Metabolic Fui869 ANION GAP 10 02/04/2018 Comp Metabolic Hxe149 GLUCOSE 212 mg/dL 02/04/2018 Comp Metabolic Kel535 Creat 1.2 mg/dL 02/04/2018 Comp Metabolic Dkt269 eGFR 47 ml/min/1.73m2 02/04/2018 Comp Metabolic Dsn637 BUN 20 mg/dL 02/04/2018 Comp Metabolic Lse949 B/C Ratio 16.8 Ratio 02/04/2018 Comp Metabolic Icl040 CALCIUM 8.9 mg/dL 02/04/2018 Comp Metabolic Zwd790 ALK PHOS 107 U/L 02/04/2018 Comp Metabolic Jrt359 AST(SGOT) 17 U/L 02/04/2018 Comp Metabolic Jnc543 ALT(SGPT) 11 U/L 02/04/2018 Comp Metabolic Bpf721 BILI T 0.4 mg/dL 02/04/2018 Comp Metabolic Pkd721 ALBUMIN 3.8 g/dL 02/04/2018 Comp Metabolic Oyk359 TPRO 6.2 g/dL 02/04/2018 Comp Metabolic Skc359 GLOB 2.4 g/dL 02/04/2018 Comp Metabolic Eps570 A/G Ratio 1.6 Ratio 02/04/2018 Comp Metabolic Gne863 Osmo 283 mOsmo 02/04/2018 %Hba1C Egp308 % HbA1c 87513- 6 6.3 % 12/30/2017 %Hba1C Ydz318 Gluc Ave 134 mg/dL 12/30/2017 Comp Metabolic Svj207 NA 142 mEq/L 12/30/2017 Comp Metabolic Hzl706 K 4.4 mEq/L 12/30/2017 Comp Metabolic Jrm619 CL 103 mEq/L 12/30/2017 Comp Metabolic Qjn619 CO2 31.0 mEq/L 12/30/2017 Comp Metabolic Dae110 ANION GAP 12 12/30/2017 Comp Metabolic Imj915 GLUCOSE 119 mg/dL 12/30/2017 Comp Metabolic Sgo407 Creat 1.4 mg/dL 12/30/2017 Comp Metabolic Fbq377 eGFR 41 ml/min/1.73m2 12/30/2017 Comp Metabolic Iks063 BUN 27 mg/dL 12/30/2017 Comp Metabolic Gmb054 B/C Ratio 20.0 Ratio 12/30/2017 Comp Metabolic Wvo795 CALCIUM 9.9 mg/dL 12/30/2017 Comp Metabolic Syc125 ALK PHOS 106 U/L 12/30/2017 Comp Metabolic Ozy956 AST(SGOT) 20 U/L 12/30/2017 Comp Metabolic Hiw946 ALT(SGPT) 13 U/L 12/30/2017 Comp Metabolic Rnc535 BILI T 0.7 mg/dL 12/30/2017 Comp Metabolic Avf996 ALBUMIN 4.2 g/dL 12/30/2017 Comp Metabolic Rwc474 TPRO 6.7 g/dL 12/30/2017 Comp Metabolic Cyz243 GLOB 2.6 g/dL 12/30/2017 Comp Metabolic Gsx873 A/G Ratio 1.6 Ratio 12/30/2017 Comp Metabolic Kbj508 Osmo 289 mOsmo 12/30/2017 Lipid Ord30 CHOL 167 mg/dL 12/30/2017 Lipid Ord30 HDL 63.0 mg/dl 12/30/2017 Lipid Ord30 TRIG 89 mg/dL 12/30/2017 Lipid Ord30 LDL 86 mg/dL 12/30/2017 Lipid Ord30 C/HDL 2.7 Ratio 12/30/2017 Urine Culture Ucult Preliminary NO Growth Day 1 04/17/2017 Urine Culture Ucult Complete NO Growth Day 2 04/17/2017 Comp Metabolic Yir273 NA 143 mEq/L 04/15/2017 Comp Metabolic Igj690 K 4.6 mEq/L 04/15/2017 Comp Metabolic Zve567 CL 110 mEq/L 04/15/2017 Comp Metabolic Ufc189 CO2 30.0 mEq/L 04/15/2017 Comp Metabolic Qdf551 ANION GAP 8 04/15/2017 Comp Metabolic Tuo301 GLUCOSE 159 mg/dL 04/15/2017 Comp Metabolic Mel902 Creat 1.1 mg/dL 04/15/2017 Comp Metabolic Dlg998 eGFR 54 ml/min/1.73m2 04/15/2017 Comp Metabolic Ker912 BUN 27 mg/dL 04/15/2017 Comp Metabolic Oox301 B/C Ratio 25.7 Ratio 04/15/2017 Comp Metabolic Gug818 CALCIUM 9.4 mg/dL 04/15/2017 Comp Metabolic Ikh162 ALK PHOS 93 U/L 04/15/2017 Comp Metabolic Uxw654 AST(SGOT) 19 U/L 04/15/2017 Comp Metabolic Mzu205 ALT(SGPT) 18 U/L 04/15/2017 Comp Metabolic Fql410 BILI T 0.6 mg/dL 04/15/2017 Comp Metabolic Ywe241 ALBUMIN 3.9 g/dL 04/15/2017 Comp Metabolic Weu590 TPRO 6.5 g/dL 04/15/2017 Comp Metabolic Gyq285 GLOB 2.6 g/dL 04/15/2017 Comp Metabolic Rgt136 A/G Ratio 1.5 Ratio 04/15/2017 Comp Metabolic Pfa226 Osmo 293 mOsmo 04/15/2017 Tsh Ord6 hTSH II 2.05 uIU/mL 04/15/2017 %Hba1C Wjm865 % HbA1c 70679- 6 6.3 % 04/15/2017 %Hba1C Pnz524 Gluc Ave 134 mg/dL 04/15/2017 Cbc With [...] 22.4 % 04/15/2017 Cbc With Differential Ord2 [place]% 6.9 % 04/15/2017 Cbc With Differential Ord2 [...] 1.58 K/ul 04/15/2017 Cbc With Differential Ord2 [place] ABS# 0.5 K/ul 04/15/2017 Cbc With Differential [...] Ord28 U-Com Culture to follow 04/15/2017 %Hba1C Ksf504 % HbA1c 23734- 6 5.8 % 01/07/2017 %Hba1C Jpy690 Gluc Ave 120 mg/dL 01/07/2017 Urine Culture Ucult Preliminary NO Growth Day 1 09/21/2016 Urine Culture Ucult Complete NO Growth Day 2 09/21/2016 %Hba1C You223 % HbA1c 43091- 6 6.0 % 09/17/2016 %Hba1C Xtx344 Gluc Ave 126 mg/dL 09/17/2016 Comp Metabolic Gxj262 NA 140 mEq/L 09/17/2016 Comp Metabolic Kyv546 K 4.1 mEq/L 09/17/2016 Comp Metabolic Niv267 CL 105 mEq/L 09/17/2016 Comp Metabolic Dry811 CO2 29.0 mEq/L 09/17/2016 Comp Metabolic Jit864 ANION GAP 10 09/17/2016 Comp Metabolic Jhx912 GLUCOSE 89 mg/dL 09/17/2016 Comp Metabolic Ohu214 Creat 0.9 mg/dL 09/17/2016 Comp Metabolic Fmk254 eGFR 65 ml/min/1.73m2 09/17/2016 Comp Metabolic Nhb771 BUN 20 mg/dL 09/17/2016 Comp Metabolic Mqu105 B/C Ratio 22.2 Ratio 09/17/2016 Comp Metabolic Qgq698 CALCIUM 9.3 mg/dL 09/17/2016 Comp Metabolic Zwf770 ALK PHOS 107 U/L 09/17/2016 Comp Metabolic Qhd203 AST(SGOT) 22 U/L 09/17/2016 Comp Metabolic Jgq852 ALT(SGPT) 15 U/L 09/17/2016 Comp Metabolic Dyn857 BILI T 0.7 mg/dL 09/17/2016 Comp Metabolic Pmu365 ALBUMIN 4.0 g/dL 09/17/2016 Comp Metabolic Fbh331 TPRO 6.8 g/dL 09/17/2016 Comp Metabolic Orn324 GLOB 2.8 g/dL 09/17/2016 Comp Metabolic Zky752 A/G Ratio 1.4 Ratio 09/17/2016 Comp Metabolic Kwj295 Osmo 281 mOsmo 09/17/2016 Microalbumin Wgo161 MicroAlb 44.3 mg/dL 09/17/2016 Tsh Ord6 hTSH [...] 25.6 % 09/17/2016 Cbc With Differential Ord2 [place]% 8.1 % 09/17/2016 Cbc With Differential Ord2 [...] 1.78 K/ul 09/17/2016 Cbc With Differential Ord2 [place] ABS# 0.6 K/ul 09/17/2016 Cbc With Differential [...] G0439 09/06/2018 URINALYSIS NONAUTO W/O SCOPE CPT-4: 41809 12/29/2017 PPPS, SUBSEQ VISIT CPT- 4: G0439 03/30/2017 THER/PROPH/DIAG INJ SC/IM CPT-4: 21225 03/16/2017 TRIAMCINOLONE ACET INJ NOS CPT-4: J3301 03/16/2017 THER/PROPH/DIAG INJ SC/IM CPT-4: 88419 03/12/2017 TRIAMCINOLONE ACET INJ NOS CPT-4: J3301 03/12/2017 THER/PROPH/DIAG INJ SC/IM CPT-4: 58363 11/05/2016 TRIAMCINOLONE ACET INJ NOS CPT-4: J3301 11/05/2016 URINALYSIS NONAUTO W/O SCOPE CPT-4: 21393 09/18/2016 Vital Signs Date Vital 09/06/2018 Blood Pressure 1: 142/66 Code: 8480-6 BMI: 30.9 Code: 39606-6 Heart Rate 1: 64 bpm Height: 5'7" SpO2: 98% Waist Measure (cm): 99 cm Weight: 197 lbs 08/16/2018 Blood Pressure 1: 140/70 Code: 8480-6 BMI: 34.4 Code: 20520-3 Heart Rate 1: 63 bpm Height: 5'7" SpO2: 95% Weight: 219 lbs 14 oz 04/12/2018 Blood Pressure 1: 160/70 Code: 8480-6 BMI: 33.0 Code: 82846-0 Heart Rate 1: 82 bpm Height: 5'7" SpO2: 95% Weight: 211 lbs 01/20/2018 Blood Pressure 1: 152/66 Code: 8480-6 BMI: 31.8 Code: 26134-2 Heart Rate 1: 52 bpm Height: 5'7" SpO2: 98% Temperature: 36.3 (C) / 97.3 (F) Weight: 203 lbs 12/29/2017 Blood Pressure 1: 168/72 Code: 8480-6 BMI: 32.1 Code: 17729-6 Heart Rate 1: 63 bpm Height: 5'7" SpO2: 98% Weight: 205 lbs 08/24/2017 Blood Pressure 1: 150/70 Code: 8480-6 Blood Pressure 1: 186/70 Code: 8480-6 BMI: 31.8 Code: 53952-6 Heart Rate 1: 53 bpm Height: 5'7" SpO2: 98% Weight: 203 lbs 07/26/2017 Blood Pressure 1: 206/78 Code: 8480-6 Blood Pressure 2: 210/84 Code: 8480-6 BMI: 32.0 Code: 23201-5 Heart Rate 1: 49 bpm Height: 5'7" SpO2: 97% Weight: 204 lbs 07/20/2017 Blood Pressure 1: 148/82 Code: 8480-6 Heart Rate 1: 90 bpm SpO2: 98% 05/27/2017 Blood Pressure 1: 142/72 Code: 8480-6 BMI: 30.5 Code: 06335-3 Heart Rate 1: 97 bpm Height: 5'7" [...] 1: 148/70 Code: 8480-6 BMI: 30.4 Code: 39615-0 Heart Rate 1: 54 bpm Height: 5'7" SpO2: 97% Weight: 194 lbs 03/30/2017 BMI: 33.2 Code: 75969-4 Height: 5'7" Weight: 212 lbs 03/16/2017 Blood Pressure 1: 140/80 Code: 8480-6 BMI: 34.0 Code: 17252-8 Heart Rate 1: 70 bpm Height: 5'7" SpO2: 95% Weight: 217 lbs 03/12/2017 Blood Pressure 1: 142/80 Code: 8480-6 BMI: 34.0 Code: 56645-4 Heart Rate 1: 76 bpm Height: 5'7" SpO2: 92% Weight: 217 lbs 02/17/2017 Blood Pressure 1: 162/64 Code: 8480-6 BMI: 32.9 Code: 47906-6 Heart Rate 1: 59 bpm Height: 5'7" SpO2: 97% Weight: 210 lbs 01/20/2017 Blood Pressure 1: 162/74 Code: 8480-6 BMI: 32.9 Code: 20450-2 Heart Rate 1: 56 bpm Height: 5'7" SpO2: 98% Weight: 210 lbs 11/17/2016 Blood Pressure 1: 156/60 Code: 8480-6 BMI: 34.8 Code: 21177-5 Heart Rate 1: 63 bpm Height: 5'7" SpO2: 96% Weight: 222 lbs 11/05/2016 Blood Pressure 1: 160/68 Code: 8480-6 BMI: 34.5 Code: 50928-4 Heart Rate 1: 66 bpm Height: 5'7" SpO2: 97% Temperature: 36.9 (C) / 98.5 (F) Weight: 220 lbs 09/21/2016 Blood Pressure 1: 166/72 Code: 8480-6 Blood Pressure 1: 180/72 Code: 8480-6 BMI: 32.1 Code: 06650-3 Heart Rate 1: 57 bpm Height: 5'7" SpO2: 98% Weight: 205 lbs 09/16/2016 Blood Pressure 1: 168/70 Code: 8480-6 Heart Rate 1: 49 bpm SpO2: 95% 08/03/2016 Blood Pressure 1: 162/70 Code: 8480-6 BMI: 32.0 Code: 80852-1 Heart Rate 1: 43 bpm Height: 5'7" SpO2: 98% Weight: 204 lbs 07/06/2016 Blood Pressure 1: 170/86 Code: 8480-6 BMI: 32.0 Code: 87601-6 Heart Rate 1: 48 bpm Height: 5'7" [...] data Encounters Encounter Performer Location Codes Date ([id number]) [id number] EST. PATIENT, LEVEL IV Diagnosis: Essential (primary) hypertension[ICD10: I10] Diagnosis: Type 2 diabetes mellitus without complications[ICD10: E11.9] Diagnosis: Mixed hyperlipidemia[ICD10: E78.2] Fifi Camejo MD, [facility] CPT- 4: 22509 08/16/2018 [id number]) [id number] EST. PATIENT, LEVEL IV Diagnosis: Type 2 diabetes mellitus without complications[ICD10: E11.9] Diagnosis: Mixed hyperlipidemia[ICD10: E78.2] Diagnosis: Essential (primary) hypertension[ICD10: I10] Diagnosis: Dysuria[ICD10: R30.0] Diagnosis: Pain in left foot[ICD10: M79.672] Fifi Camejo MD, [facility] CPT- 4: 87443 04/12/2018 [id number]) [id number] EST. PATIENT, LEVEL III Diagnosis: Otalgia, bilateral[ICD10: H92.03] Diagnosis: Other allergic rhinitis[ICD10: J30.89] Yuridia Camejo MD, [facility] CPT-4: 42482 01/20/2018 ([id number] EST. PATIENT, LEVEL IV Diagnosis: Type 2 diabetes mellitus without complications[ICD10: E11.9] Diagnosis: Mixed hyperlipidemia[ICD10: E78.2] Diagnosis: Essential (primary) hypertension[ICD10: I10] Diagnosis: Dysuria[ICD10: R30.0] Fifi Camejo MD, [facility] CPT-4: 37382 12/29/2017 ([id number]) [id number] EST. PATIENT, LEVEL IV Diagnosis: Essential (primary) hypertension[ICD10: I10] Diagnosis: Cysts of left upper eyelid[ICD10: H02.824] Diagnosis: Pain in left foot[ICD10: M79.672] Fifi Camejo MD, [facility] CPT- 4: 52158 08/24/2017 ([id number]) 52552 EST. PATIENT, LEVEL III Diagnosis: Essential (primary) hypertension[ICD10: I10] Fifi Camejo MD, [facility] CPT-4: 87994 07/26/2017 ([id number]) Miscellaneous no charge Diagnosis: Essential (primary) hypertension[ICD10: I10] Fifi Camejo MD, [facility] CPT-4: 16857 07/20/2017 [id number] EST. PATIENT, LEVEL III Diagnosis: Otalgia, bilateral[ICD10: H92.03] Diagnosis: Dizziness and giddiness[ICD10: R42] Diagnosis: Mixed hyperlipidemia[ICD10: E78.2] Krysta Camejo MD, [facility] CPT-4: 08519 05/27/2017 ([id number]) Miscellaneous no charge Diagnosis: Essential (primary) hypertension[ICD10: I10] Krysta Camejo MD, [facility] CPT-4: 99051 05/07/2017 ([id number]) 23177 EST. PATIENT, LEVEL IV Diagnosis: Otalgia, bilateral[ICD10: H92.03] Diagnosis: Dizziness and giddiness[ICD10: R42] Diagnosis: Orthostatic hypotension[ICD10: I95.1] Fifi Camejo MD, [facility] CPT-4: 97523 05/03/2017 [id number] EST. PATIENT, LEVEL IV Diagnosis: Essential (primary) hypertension[ICD10: I10] Diagnosis: Type 2 diabetes mellitus without complications[ICD10: E11.9] Diagnosis: Gastro-esophageal reflux disease without esophagitis[ICD10: K21.9] Diagnosis: Dizziness and giddiness[ICD10: R42] Diagnosis: Dysuria[ICD10: R30.0] Diagnosis: Other malaise[ICD10: R53.81] Krysta Camejo MD, [facility] CPT-4: 85946 04/15/2017 ([id number]) 32377 EST. PATIENT, LEVEL IV Diagnosis: Type 2 diabetes mellitus without complications[ICD10: E11.9] Diagnosis: Otalgia, bilateral[ICD10: H92.03] Diagnosis: Essential (primary) hypertension[ICD10: I10] Diagnosis: Other allergic rhinitis[ICD10: J30.89] Fifi Camejo MD [facility] CPT-4: 62828 03/16/2017 [id number] EST. PATIENT, LEVEL IV Diagnosis: Other acute sinusitis[ICD10: J01.80] Diagnosis: Acute suppurative otitis media without spontaneous rupture of ear drum, bilateral[ICD10: H66.003] Diagnosis: Other allergic rhinitis[ICD10: J30.89] Krysta Camejo MD, [facility] CPT- 4: 19549 03/12/2017 ([id number]) 67747 EST. PATIENT, LEVEL IV Diagnosis: Essential (primary) hypertension[ICD10: I10] Diagnosis: Type 2 diabetes mellitus without complications[ICD10: E11.9] Fifi Camejo MD [facility] CPT-4: 86545 02/17/2017 ([id number]) 36124 EST. PATIENT, LEVEL IV Diagnosis: Essential (primary) hypertension[ICD10: I10] Diagnosis: Type 2 diabetes mellitus without complications[ICD10: E11.9] Fifi Camejo MD [facility] CPT-4: 27698 01/20/2017 ([id number]) 73718 EST. PATIENT, LEVEL IV Diagnosis: Essential (primary) hypertension[ICD10: I10] Diagnosis: Type 2 diabetes mellitus without complications[ICD10: E11.9] Diagnosis: Gastro-esophageal reflux disease without esophagitis[ICD10: K21.9] Fifi Camejo MD, [facility] CPT-4: 39038 11/17/2016 ([id number]) 29374 EST. PATIENT, LEVEL III Diagnosis: Acute bronchitis due to other specified organisms[ICD10: J20.8] Diagnosis: Cough[ICD10: R05] [facility] Redmond MD CPT-4: 45927 11/05/2016 ([id number]) 47527 EST. PATIENT, LEVEL IV Diagnosis: Essential (primary) hypertension[ICD10: I10] Diagnosis: Type 2 diabetes mellitus without complications[ICD10: E11.9] [facility] Redmond MD CPT-4: 31904 09/21/2016 ([id number]) Miscellaneous no charge Diagnosis: Essential (primary) hypertension[ICD10: I10] [facility] Redmond MD CPT-4: 50499 09/16/2016 ([id number]) 75017 EST. PATIENT, LEVEL III Diagnosis: Type 2 diabetes mellitus without complications[ICD10: E11.9] Diagnosis: Essential (primary) hypertension[ICD10: I10] Fifi Camejo MD, [facility] CPT-4: 46622 08/03/2016 ([id number]) OFFICE VISIT, NEW - LEVEL 4 Diagnosis: Essential (primary) hypertension[ICD10: I10] Diagnosis: Type 2 diabetes mellitus without complications[ICD10: E11.9] Diagnosis: Carpal tunnel syndrome, left upper limb[ICD10: G56.02] Diagnosis: Right upper quadrant pain[ICD10: R10.11] Diagnosis: Mixed hyperlipidemia[ICD10: E78.2] Fifi Camejo MD, [facility] CPT- 4: 91239 07/06/2016 Plan of Care Planned Activity Notes [...] DOPA paperwork for health care surrogate. 09/06/2018 Patient Education: Patient Medication Summary Completed 09/06/2018 [facility] [phone] [phone] [facility] - Annual Wellness Visit 08/29/2018 Visit [...] dications. 08/16/2018 Appointment: [facility] [phone] [facility] (15 min) Moderate 08/16/2018 Patient Education: Patient [...] the foot. 04/12/2018 Appointment: Fifi Camejo [facility]el: [facility] (15 min) Moderate 04/12/2018 Patient Education: Patient Medication Summary Completed 04/12/2018 Care Plan: Referral Order SNOMED-CT : [id number] Pending 04/12/2018 Patient Education: Patient Medication Summary [...] allergy spray. 01/20/2018 Appointment: Yuridia Walsh WPtel: [phone] [place] (15 min) Moderate 01/20/2018 Patient Education: [...] 12/29/2017 Appointment: [facility] [phone] [facility] (15 min) Moderate 12/29/2017 Patient Education: Patient [...] - recommended referral to Dr. Chago davis [place] 08/24/2017 Appointment: Fifi Camejo [facility]: [phone] [facility] [place] (15 min) Moderate 08/24/2017 Patient Education: Patient Medication Summary Completed 08/24/2017 Care Plan: Referral Order SNOMED-CT : [id number] Pending 08/24/2017 Visit Plan: Hypertension - uncontrolled [...] above. 07/26/2017 Appointment: Fifi Camejo [facility] [phone] [id number] (15 min) Moderate 07/26/2017 Patient Education: Patient [...] to medications. 05/27/2017 Appointment: [facility] [phone] [facility] (15 min) Moderate 05/27/2017 Patient Education: Patient Medication Summary Completed 05/27/2017 Appointment: Nurse Visit 05/07/2017 Patient Education: Patient Medication Summary Completed 05/07/2017 Visit Plan: Persistent vergito with bilateral air-fluid levels and ear pain. Pt was seen by Dr. Calvo- she did not like his response to her complaints. I have recommended a referral to ENT in [place] or [place]. I suspect she may need myringotomy tubes. Pt to continue with flonase. Orthostatic hypotension - dc doxazosin. Monitor blood pressures at home. stop the doxazosin meclizine change to 1/2 pill three times a day come back on Wednesday for blood pressure check 05/03/2017 Appointment: Fifi Camejo WPtel: [phone] [facility] (15 min) Moderate 05/03/2017 Patient Education: Patient Medication Summary Completed 05/03/2017 Appointment: [facility] [phone] [id number] (15 min) Moderate 04/21/2017 Visit Plan: Hypertension, [...] control. 04/15/2017 App[facility]ment: [phone] [facility] (30 min) Complex 04/15/2017 Patient Education: Patient [...] care surrogate. 03/30/2017 Appointment: [facility]ryst[facility] Dale [facility] [phone] [facility] [facility] - Annual Wellness Visit 03/30/2017 Patient [...] home. 03/16/2017 Appointment: Fifi C[facility]jo [facility] [phone] [facility] (30 min) Complex 03/16/2017 Patient Education: Patient Medication Summary Completed 03/16/2017 Patient Education: Obesity Completed 03/16/2017 Care Plan: Referral Order SNOMED-CT : [id number] Pending 03/16/2017 Visit Plan: Allergies - chronic [...] acutely worsen. 03/12/2017 Appointment: [facility] Dale [facility] [phone] [facility] (15 min) Moderate 03/12/2017 Patient Education: Patient [...] controlled. 02/17/2017 Appointment: Fifi Camejo WPtel: [phone] [facility] (30 min) Complex 02/17/2017 Patient Education: Patient [...] controlled. 01/20/2017 Appointment: [facility] [phone] [id number] (30 min) Complex 01/20/2017 Patient Education: Patient [...] dexilant 11/17/2016 Appointment: Fifi Camejo [facility]: [phone] [id number] (30 min) Complex 11/17/2016 Patient Education: Patient [...] in the 90-110 range. 09/21/2016 Appointment: Fifi Cameoj [facility] [phone] [facility] (15 min) Moderate 09/21/2016 Patient Education: Patient [...] time. 08/03/2016 Appointment: Fifi Camejo [facility]: [phone] [facility] (15 min) Moderate 08/03/2016 Patient Education: Patient [...] improving. 07/06/2016 Appointment: Fifi Camejo WPtel: [facility] [facility] 07/06/2016 Patient Education: Patient Medication [...] [facility] 24 Hypertension - [...] monitor your heart rate Consider referral for escalator mechanic for possible stress test if needed. Call [...] monitor your heart rate Consider referral for escalator mechanic for possible stress test if needed. Call [...] have recommended a referral to ENT in [facility]. I suspect she may need myringotomy tubes. [...] - recommended referral to Dr. Anders in [place]
--- OUTSIDE RECORDS SUMMARY | 2019-03-08 17:24 | XMS REPORT | CCD ---
Author Author Fifi Camejo MD, [facility] Address [address] [place] [address] Phone Care Team Providers Care Federal Aid Coordinator Name Role Phone PP Unavailable CCM Unavailable Summary Purpose Interface Exchange Insurance Providers Payer name Policy type / Coverage type Covered democrat ID Effective Begin Date Effective End Date WPS Medicare Part B Medicare Part B [id number] 2018 Unknown FOR LIFE WPS Medicare Part B [id number] 2018 Unknown Family history Father Diagnosis Age At Onset Cancer Unknown Brother Diagnosis Age At Onset Diabetes mellitus Type 2 Unknown Heart Attack Unknown Social History Social History Element Codes Description Effective Dates Marital status Unknown Wu 11/05/2016 Number of children Unknown 1 07/06/2016 Employment Unknown Retired 07/06/[address]: 868444596 Never smoker 07/06/[address]: 092645511 Never drinks alcohol 07/06/2016 Allergies, Adverse Reactions, Alerts Substance Reaction Codes Entered Date Inactivated Date Status IV DYE, IODINE CONTAINING emesis, emesis Unknown 04/28/2018 No Inactive Date Active MORPHINE AND RELATED Unknown 04/28/2018 No Inactive Date Active Penicillin Unknown 07/06/2016 No Inactive Date Active 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 Unknown 01/20/2017 No [...] ICD-9: 780.79 ICD-10: R53.81 Active 04/15/2017 Unknown Encounter for general adult medical examination with abnormal findings ICD-9: V70.0 ICD-10: Z00.01 Active 03/30/2017 Unknown Acute suppurative otitis media without spontaneous [...] malaise ICD-9: 780.79 ICD-10: R53.81 04/15/2017 Active Encounter for general adult medical examination with abnormal findings ICD-9: V70.0 ICD-10: Z00.01 03/30/2017 Active Acute suppurative otitis media without spontaneous [...] Instructions Zithromax Z-Juan 250 mg tablet RxNorm: 150848 1 Tablet(s) PO UD 08/22/2018 08/26/2018 Active zpack as directed clonidine HCl 0.1 mg tablet RxNorm: 949993 1 Tablet(s) PO QAM 08/16/2018 08/10/2019 Active losartan 100 mg tablet RxNorm: 533495 1 TABLET(S) PO DAILY FOR HIGH BLOOD PRESSURE 08/12/2018 No Stop Date Active alprazolam 0.5 mg tablet RxNorm: 359290 1 Tablet(s) PO TID as needed anxiety 06/30/2018 12/26/2018 Active fluticasone 50 mcg/actuation nasal spray,suspension RxNorm: 8629128 USE 1 SPRAY NASALLY TWICE A DAY 05/06/2018 No Stop Date Active clonidine HCl 0.1 mg tablet RxNorm: 711505 1 Tablet(s) PO BID 04/14/2018 08/15/2018 Inactive clonidine HCl 0.1 mg tablet RxNorm: 228153 1 Tablet(s) PO TID 04/12/2018 04/13/2018 Inactive Zithromax Z-Juan 250 mg tablet RxNorm: 217376 1 Tablet(s) PO UD 01/20/2018 08/21/2018 Inactive disregard first rx for 1 - patient needs 3 packs-please dispense generic azithromycin Zithromax Z-Juan 250 mg tablet RxNorm: 102312 1 Tablet(s) PO UD 01/20/2018 01/19/2018 Inactive Zithromax Z-Juan 250 mg tablet RxNorm: 842626 1 Tablet(s) PO UD 01/20/2018 01/19/2018 Inactive disregard first rx for 1 - patient needs 3 packs Zithromax Z-Juan 250 mg tablet RxNorm: 234852 1 Tablet(s) PO UD 01/20/2018 01/19/2018 Inactive atorvastatin 10 mg tablet RxNorm: 286532 1 Tablet(s) PO QPM 12/30/2017 12/24/2018 Active atorvastatin 10 mg tablet RxNorm: 114950 1 Tablet(s) PO QPM 12/30/2017 12/29/2017 Inactive metoprolol tartrate 50 mg tablet RxNorm: 856151 1/2 Tablet(s) PO BID 12/29/2017 12/23/2018 Active clonidine HCl 0.1 mg tablet RxNorm: 802176 1 Tablet(s) PO BID 12/29/2017 04/11/2018 Inactive Lipitor 10 mg tablet RxNorm: 408038 1 Tablet(s) PO QPM 12/29/2017 12/29/2017 Inactive OKAY TO DISPENSE GENERIC alprazolam 0.5 mg tablet RxNorm: 552576 1 Tablet(s) PO TID as needed anxiety 11/18/2017 05/16/2018 Inactive glimepiride 4 mg tablet RxNorm: 485660 1 TABLET(S) PO DAILY 11/15/2017 No Stop Date Active alprazolam 0.5 mg tablet RxNorm: 171930 1 Tablet(s) PO TID as needed anxiety 09/20/2017 11/17/2017 Inactive Zithromax Z-Juan 250 mg tablet RxNorm: 574044 1 Tablet(s) PO UD 09/20/2017 12/28/2017 Inactive Zithromax Z-Juan 250 mg tablet RxNorm: 975888 1 Tablet(s) PO UD 09/14/2017 09/19/2017 Inactive amlodipine 10 mg tablet RxNorm: 443586 1 Tablet(s) PO daily 08/24/2017 08/18/2018 Inactive clonidine HCl 0.1 mg tablet RxNorm: 423362 1/2 Tablet(s) PO BID 08/24/2017 12/28/2017 Inactive erythromycin 5 mg/gram (0.5 %) eye ointment RxNorm: 277169 1 Gram(s) ophthalmic (eye) QID left eye cyst 08/24/2017 09/06/2017 Inactive losartan 100 mg tablet RxNorm: 782400 1 Tablet(s) PO daily for high blood pressure 08/16/2017 08/10/2018 Inactive metoprolol tartrate 50 mg tablet RxNorm: 531508 1/2 Tablet(s) PO BID 07/26/2017 12/28/2017 Inactive clonidine HCl 0.1 mg tablet RxNorm: 789370 1/2 Tablet(s) PO BID 07/26/2017 08/23/2017 Inactive metoprolol tartrate 50 mg tablet RxNorm: 473621 1 Tablet(s) PO BID 07/21/2017 07/25/2017 Inactive amlodipine 10 mg tablet RxNorm: 498725 1 TABLET(S) PO DAILY 06/29/2017 08/23/2017 Inactive Lipitor 10 mg tablet RxNorm: 428524 1 Tablet(s) PO QPM 05/27/2017 12/28/2017 Inactive OKAY TO DISPENSE GENERIC alprazolam 0.5 mg tablet RxNorm: 850332 1 Tablet(s) PO TID as needed anxiety 05/18/2017 08/15/2017 Inactive hydrochlorothiazide 12.5 mg tablet RxNorm: 268294 1 Tablet(s) PO daily 04/22/2017 05/21/2017 Inactive hydrochlorothiazide 12.5 mg tablet RxNorm: 700451 1 Tablet(s) PO daily 04/22/2017 04/21/2017 Inactive Cipro 500 mg tablet RxNorm: 089061 1 Tablet(s) PO BID 04/16/2017 04/22/2017 Inactive Zofran 4 mg tablet RxNorm: 646006 1 Tablet(s) PO BID as needed nausea and vomitting 04/15/2017 04/19/2017 Inactive Lipitor 10 mg tablet RxNorm: 938177 1 Tablet(s) PO QPM 03/30/2017 05/26/2017 Inactive OKAY TO DISPENSE GENERIC Kenalog 40 mg/mL suspension for injection RxNorm: 1041589 1 Milliliter(s) Inj 03/16/2017 03/16/2017 Inactive doxazosin 4 mg tablet RxNorm: 982256 1.5 Tablet(s) PO BID 03/16/2017 05/02/2017 Inactive prednisone 10 mg tablets in a dose pack RxNorm: 477537 Tablet(s) take dose pack as directed PO take with food 03/16/2017 05/23/2017 Inactive Kenalog 40 mg/mL suspension for injection RxNorm: 6367888 Milliliter(s) Inj 03/12/2017 03/12/2017 Inactive Zithromax Z-Juan 250 mg tablet RxNorm: 082419 1 Tablet(s) PO daily 03/11/2017 03/10/2017 Inactive zpack as directed Zithromax Z-Juan 250 mg tablet RxNorm: 112848 1 Tablet(s) PO daily 03/11/2017 03/15/2017 Inactive zpack as directed doxazosin 4 mg tablet RxNorm: 019221 1.5 Tablet(s) PO BID 02/12/2017 03/15/2017 Inactive fluticasone 50 mcg/actuation nasal spray,suspension RxNorm: 3006960 1 SPRAY NASAL BID 02/05/2017 05/05/2018 Inactive metoprolol tartrate 75 mg tablet RxNorm: 3376762 1 Tablet(s) PO BID 01/29/2017 07/19/2017 Inactive metoprolol tartrate 75 mg tablet RxNorm: 6715282 1 Tablet(s) PO BID 01/29/2017 01/28/2017 Inactive doxazosin 4 mg tablet RxNorm: 075401 1 Tablet(s) PO BID 01/20/2017 02/11/2017 Inactive pantoprazole 40 mg tablet,delayed release RxNorm: 021054 1 Tablet(s) PO daily 12/24/2016 01/19/2017 Inactive pantoprazole 40 mg tablet,delayed release RxNorm: 618023 1 Tablet(s) PO daily 12/24/2016 12/23/2016 Inactive alprazolam 0.5 mg tablet RxNorm: 136508 1 Tablet(s) PO TID as needed anxiety 12/03/2016 04/01/2017 Inactive fluticasone 50 mcg/actuation nasal spray,suspension RxNorm: 9121478 1 [place] NASAL BID 11/25/2016 12/24/2016 Inactive Dexilant 60 mg capsule, delayed release RxNorm: 336110 1 Capsule(s) PO daily 11/25/2016 11/24/2016 Inactive fluticasone 50 mcg/actuation nasal spray,suspension RxNorm: 2495109 1 [place] NASAL BID 11/25/2016 11/24/2016 Inactive fluticasone 50 mcg/actuation nasal spray,suspension RxNorm: 0574922 1 [place] NASAL BID 11/25/2016 11/24/2016 Inactive Dexilant 60 mg capsule, delayed release RxNorm: 072562 1 Capsule(s) PO daily 11/25/2016 12/23/2016 Inactive ProAir RespiClick 90 mcg/actuation breath activated RxNorm: 9269971 1 INH bid and QID as needed 11/19/2016 05/17/2017 Inactive Please send STAT Flonase Allergy Relief 50 mcg/actuation nasal spray,suspension RxNorm: 2551010 1 [place] NASAL BID 11/19/2016 11/24/2016 Inactive glimepiride 4 mg tablet RxNorm: 605057 1 Tablet(s) PO daily 11/19/2016 11/13/2017 Inactive metoprolol tartrate 50 mg tablet RxNorm: 173590 1 Tablet(s) PO BID 11/19/2016 01/28/2017 Inactive Flonase Allergy Relief 50 mcg/actuation nasal spray,suspension RxNorm: 1580351 1 [place] NASAL BID 11/17/2016 11/18/2016 Inactive metoprolol tartrate 50 mg tablet RxNorm: 260878 1 Tablet(s) PO BID 11/17/2016 11/18/2016 Inactive ProAir RespiClick 90 mcg/actuation breath activated RxNorm: 2974115 1 INH bid and QID as needed 11/17/2016 11/16/2016 Inactive glimepiride 4 mg tablet RxNorm: 819423 1 Tablet(s) PO daily 11/17/2016 11/18/2016 Inactive ProAir RespiClick 90 mcg/actuation breath activated RxNorm: 4972091 1 INH bid and QID as needed 11/17/2016 11/18/2016 Inactive Please send STAT Kenalog 40 mg/mL suspension for injection RxNorm: 1567541 1 Milliliter(s) Inj 11/05/2016 11/05/2016 Inactive azithromycin 250 mg tablet RxNorm: 985952 Tablet(s) PO 2 tabs on day #1, then daily x 4 days 11/05/2016 12/23/2016 Inactive doxazosin 4 mg tablet RxNorm: 974404 1 Tablet(s) PO QPM 10/02/2016 01/19/2017 Inactive doxazosin 4 mg tablet RxNorm: 039772 1 Tablet(s) PO QPM 09/29/2016 10/01/2016 Inactive doxazosin 4 mg tablet RxNorm: 767814 1 Tablet(s) PO QPM 09/21/2016 09/28/2016 Inactive Cipro 500 mg tablet RxNorm: 174149 1 Tablet(s) PO BID 09/18/2016 09/17/2016 Inactive Cipro 500 mg tablet RxNorm: 343542 1 Tablet(s) PO BID 09/18/2016 09/24/2016 Inactive losartan 100 mg tablet RxNorm: 969565 1 Tablet(s) PO daily for high blood pressure 09/16/2016 09/15/2016 Inactive alprazolam 0.5 mg tablet RxNorm: 467596 1 Tablet(s) PO TID as needed anxiety 09/16/2016 11/14/2016 Inactive losartan 100 mg tablet RxNorm: 570656 1 Tablet(s) PO daily for high blood pressure 09/16/2016 08/15/2017 Inactive amlodipine 10 mg tablet RxNorm: 757599 1 Tablet(s) PO daily 08/03/2016 06/28/2017 Inactive Zyrtec 10 mg tablet RxNorm: 4490264 1 Tablet(s) PO daily 08/03/2016 09/15/2016 Inactive losartan 25 mg tablet RxNorm: 020872 1 Tablet(s) PO daily 07/08/2016 09/15/2016 Inactive Lipitor 10 mg tablet RxNorm: 929640 1 Tablet(s) PO QPM 07/08/2016 07/17/2016 Inactive OKAY TO DISPENSE GENERIC Lipitor 10 mg tablet RxNorm: 022117 1 Tablet(s) PO QPM 07/06/2016 07/07/2016 Inactive OKAY TO DISPENSE GENERIC losartan 25 mg tablet RxNorm: 451395 1 Tablet(s) PO daily 07/06/2016 07/07/2016 Inactive meclizine 25 mg tablet RxNorm: 811590 1 Tablet(s) PO TID as needed No Start Date Active Parafon Forte DSC 500 mg tablet RxNorm: 313471 1 Tablet(s) PO QID No Start Date Active Pazeo 0.7 % eye drops RxNorm: 1425878 Drop(s) ophthalmic (eye) as needed dry eyes No Start Date Active Zithromax Z-Juan 250 mg tablet RxNorm: 566749 1 Tablet(s) PO UD No Start Date 09/13/2017 Inactive glimepiride 4 mg tablet RxNorm: 968897 1 Tablet(s) PO daily No Start Date 11/16/2016 Inactive metoprolol tartrate 100 mg tablet RxNorm: 049059 1 Tablet(s) PO BID No Start Date 07/21/2017 Inactive naproxen 500 mg tablet RxNorm: 295955 1 Tablet(s) PO BID No Start Date 03/23/2017 Inactive amlodipine 5 mg tablet RxNorm: 490723 1 Tablet(s) PO daily No Start Date 08/02/2016 Inactive metoprolol tartrate 50 mg tablet RxNorm: 659431 1 Tablet(s) PO BID No Start Date 11/16/2016 Inactive Medication Administered Medication Codes Instructions Start Date Status Kenalog 40 mg/mL suspension for injection RxNorm: 3870131 1Milliliter 03/16/2017 No longer Active Kenalog 40 mg/mL suspension for injection RxNorm: 5756176 Milliliter 03/12/2017 No longer Active Kenalog 40 mg/mL suspension for injection RxNorm: 1401745 1Milliliter 11/05/2016 No longer Active Immunizations Vaccine Codes Date Status Influenza CVX: 141 08/10/2017 completed Assessments Condition Codes Effective Dates Mixed hyperlipidemia ICD-10: E78.2 ICD-9: 272.2 08/16/2018 [...] without esophagitis ICD-10: K21.9 ICD-9: 530.81 04/15/2017 Encounter for general adult medical examination with abnormal findings ICD-10: Z00.01 ICD-9: V70.0 03/30/2017 Acute suppurative otitis media without spontaneous rupture [...] Visit Reason For Visit Effective Dates Notes foot pain 08/16/2018 left outer aspect of [...] Lipid Ord30 C/HDL 3.1 Ratio 08/18/2018 Microalbumin Cde751 MicroAlb 7.5 mg/dL 08/18/2018 Cbc With Differential Ord2 WBC 5.87 K/ul 08/18/2018 Cbc With Differential Ord2 RBC 4.50 M/ul 08/18/2018 Cbc With Differential Ord2 HGB 13.3 g/dl 08/18/2018 Cbc With Differential Ord2 Neut% 55.5 % 08/18/2018 Cbc With Differential Ord2 HCT 39.0 % 08/18/2018 Cbc With Differential Ord2 MCV 86.7 fl 08/18/2018 Cbc With Differential Ord2 Lymph% 28.8 % 08/18/2018 Cbc With Differential Ord2 MCH 29.6 pg 08/18/2018 Cbc With Differential Ord2 Loving% 10.6 % 08/18/2018 Cbc With Differential Ord2 [...] 1.69 K/ul 08/18/2018 Cbc With Differential Ord2 Loving ABS# 0.6 K/ul 08/18/2018 Cbc With Differential Ord2 Eos ABS# 0.3 K/ul 08/18/2018 Cbc With Differential Ord2 Baso ABS# 0.0 K/ul 08/18/2018 Comp Metabolic Pen887 NA 137 mEq/L 08/18/2018 Comp Metabolic Cfz989 K 3.8 mEq/L 08/18/2018 Comp Metabolic Pkg631 CL 103 mEq/L 08/18/2018 Comp Metabolic Udw367 CO2 26.0 mEq/L 08/18/2018 Comp Metabolic Lff859 ANION GAP 12 08/18/2018 Comp Metabolic Bug729 GLUCOSE 110 mg/dL 08/18/2018 Comp Metabolic Yae516 Creat 1.2 mg/dL 08/18/2018 Comp Metabolic Cua275 eGFR 47 ml/min/1.73m2 08/18/2018 Comp Metabolic Jvu974 BUN 25 mg/dL 08/18/2018 Comp Metabolic Zsr817 B/C Ratio 21.0 Ratio 08/18/2018 Comp Metabolic Ybh242 CALCIUM 9.4 mg/dL 08/18/2018 Comp Metabolic Fdm528 ALK PHOS 99 U/L 08/18/2018 Comp Metabolic Fyu391 AST(SGOT) 31 U/L 08/18/2018 Comp Metabolic Erf174 ALT(SGPT) 27 U/L 08/18/2018 Comp Metabolic Qbv230 BILI T 0.7 mg/dL 08/18/2018 Comp Metabolic Pbp239 ALBUMIN 4.2 g/dL 08/18/2018 Comp Metabolic Lzq110 TPRO 6.7 g/dL 08/18/2018 Comp Metabolic Leh052 GLOB 2.5 g/dL 08/18/2018 Comp Metabolic Ksp780 A/G Ratio 1.7 Ratio 08/18/2018 Comp Metabolic Lfl847 Osmo 279 mOsmo 08/18/2018 %Hba1C Xeh694 % HbA1c 94526- 6 6.1 % 08/18/2018 %Hba1C Rzz533 Gluc Ave 128 mg/dL 08/18/2018 Tsh Ord6 TSH (3rd IS) 3.93 uIU/mL 08/18/2018 Lipid Ord30 CHOL 146 mg/dL 04/15/2018 Lipid Ord30 HDL 62.0 mg/dl 04/15/2018 Lipid Ord30 TRIG 88 mg/dL 04/15/2018 Lipid Ord30 LDL 66 mg/dL 04/15/2018 Lipid Ord30 C/HDL 2.4 Ratio 04/15/2018 %Hba1C Yap453 % HbA1c 79544- 6 6.3 % 04/15/2018 %Hba1C Rpb308 Gluc Ave 134 mg/dL 04/15/2018 Cbc With Differential Ord2 WBC 7.34 K/ul 04/15/2018 Cbc With Differential Ord2 RBC 4.40 M/ul 04/15/2018 Cbc With Differential Ord2 HGB 13.3 g/dl 04/15/2018 Cbc With Differential Ord2 Neut% 62.2 % 04/15/2018 Cbc With Differential Ord2 HCT 38.6 % 04/15/2018 Cbc With Differential Ord2 MCV 87.7 fl 04/15/2018 Cbc With Differential Ord2 Lymph% 28.6 % 04/15/2018 Cbc With Differential Ord2 Loving% 6.8 % 04/15/2018 Cbc With Differential Ord2 MCH 30.2 pg 04/15/2018 Cbc With Differential Ord2 Eos% 2.3 % 04/15/2018 Cbc With Differential Ord2 MCHC 34.5 pg 04/15/2018 Cbc With Differential Ord2 Baso% 0.1 % 04/15/2018 Cbc With Differential Ord2 PLT 230 K/ul 04/15/2018 Cbc With Differential Ord2 RDW 12.8 % 04/15/2018 Cbc With Differential Ord2 Neut ABS# 4.56 K/ul 04/15/2018 Cbc With Differential Ord2 Lymph ABS# 2.10 K/ul 04/15/2018 Cbc With Differential Ord2 Loving ABS# 0.5 K/ul 04/15/2018 Cbc With Differential Ord2 Eos ABS# 0.2 K/ul 04/15/2018 Cbc With Differential Ord2 Baso ABS# 0.0 K/ul 04/15/2018 Comp Metabolic Zhg015 NA 140 mEq/L 04/15/2018 Comp Metabolic Owo529 K 4.3 mEq/L 04/15/2018 Comp Metabolic Hav894 CL 106 mEq/L 04/15/2018 Comp Metabolic Pni432 CO2 23.0 mEq/L 04/15/2018 Comp Metabolic Bvu764 ANION GAP 15 04/15/2018 Comp Metabolic Hpm129 GLUCOSE 90 mg/dL 04/15/2018 Comp Metabolic Jya247 Creat 1.2 mg/dL 04/15/2018 Comp Metabolic Hpt611 eGFR 45 ml/min/1.73m2 04/15/2018 Comp Metabolic Rwj699 BUN 28 mg/dL 04/15/2018 Comp Metabolic Dmp917 B/C Ratio 22.8 Ratio 04/15/2018 Comp Metabolic Skl133 CALCIUM 9.5 mg/dL 04/15/2018 Comp Metabolic Rkx764 ALK PHOS 95 U/L 04/15/2018 Comp Metabolic Vwy085 AST(SGOT) 20 U/L 04/15/2018 Comp Metabolic Jtn628 ALT(SGPT) 13 U/L 04/15/2018 Comp Metabolic Xwc623 BILI T 0.5 mg/dL 04/15/2018 Comp Metabolic Uxd273 ALBUMIN 4.1 g/dL 04/15/2018 Comp Metabolic Uye057 TPRO 6.6 g/dL 04/15/2018 Comp Metabolic Xvu242 GLOB 2.5 g/dL 04/15/2018 Comp Metabolic Ufv813 A/G Ratio 1.6 Ratio 04/15/2018 Comp Metabolic Csr992 Osmo 284 mOsmo 04/15/2018 Comp Metabolic Bwz432 NA 137 mEq/L 02/04/2018 Comp Metabolic Vsh186 K 4.0 mEq/L 02/04/2018 Comp Metabolic Lza054 CL 104 mEq/L 02/04/2018 Comp Metabolic Vma519 CO2 27.0 mEq/L 02/04/2018 Comp Metabolic Uju152 ANION GAP 10 02/04/2018 Comp Metabolic Htk827 GLUCOSE 212 mg/dL 02/04/2018 Comp Metabolic Vae919 Creat 1.2 mg/dL 02/04/2018 Comp Metabolic Kiz160 eGFR 47 ml/min/1.73m2 02/04/2018 Comp Metabolic Cgy990 BUN 20 mg/dL 02/04/2018 Comp Metabolic Dvy299 B/C Ratio 16.8 Ratio 02/04/2018 Comp Metabolic Bxm689 CALCIUM 8.9 mg/dL 02/04/2018 Comp Metabolic Zli544 ALK PHOS 107 U/L 02/04/2018 Comp Metabolic Fyc381 AST(SGOT) 17 U/L 02/04/2018 Comp Metabolic Tix222 ALT(SGPT) 11 U/L 02/04/2018 Comp Metabolic Ayr431 BILI T 0.4 mg/dL 02/04/2018 Comp Metabolic Dmr484 ALBUMIN 3.8 g/dL 02/04/2018 Comp Metabolic Xqa516 TPRO 6.2 g/dL 02/04/2018 Comp Metabolic Mil828 GLOB 2.4 g/dL 02/04/2018 Comp Metabolic Afj001 A/G Ratio 1.6 Ratio 02/04/2018 Comp Metabolic Luv546 Osmo 283 mOsmo 02/04/2018 %Hba1C Ufs402 % HbA1c 55257- 6 6.3 % 12/30/2017 %Hba1C Vuc314 Gluc Ave 134 mg/dL 12/30/2017 Comp Metabolic Ees429 NA 142 mEq/L 12/30/2017 Comp Metabolic Cgn466 K 4.4 mEq/L 12/30/2017 Comp Metabolic Kir191 CL 103 mEq/L 12/30/2017 Comp Metabolic Ddt181 CO2 31.0 mEq/L 12/30/2017 Comp Metabolic Szu946 ANION GAP 12 12/30/2017 Comp Metabolic Zmh464 GLUCOSE 119 mg/dL 12/30/2017 Comp Metabolic Yhl596 Creat 1.4 mg/dL 12/30/2017 Comp Metabolic Uns753 eGFR 41 ml/min/1.73m2 12/30/2017 Comp Metabolic Ecl863 BUN 27 mg/dL 12/30/2017 Comp Metabolic Xqe479 B/C Ratio 20.0 Ratio 12/30/2017 Comp Metabolic Rjb266 CALCIUM 9.9 mg/dL 12/30/2017 Comp Metabolic Idi178 ALK PHOS 106 U/L 12/30/2017 Comp Metabolic Ent940 AST(SGOT) 20 U/L 12/30/2017 Comp Metabolic Bib180 ALT(SGPT) 13 U/L 12/30/2017 Comp Metabolic Mfp660 BILI T 0.7 mg/dL 12/30/2017 Comp Metabolic Geo907 ALBUMIN 4.2 g/dL 12/30/2017 Comp Metabolic Jfp075 TPRO 6.7 g/dL 12/30/2017 Comp Metabolic Rlx447 GLOB 2.6 g/dL 12/30/2017 Comp Metabolic Pre788 A/G Ratio 1.6 Ratio 12/30/2017 Comp Metabolic Roc376 Osmo 289 mOsmo 12/30/2017 Lipid Ord30 CHOL 167 mg/dL 12/30/2017 Lipid Ord30 HDL 63.0 mg/dl 12/30/2017 Lipid Ord30 TRIG 89 mg/dL 12/30/2017 Lipid Ord30 LDL 86 mg/dL 12/30/2017 Lipid Ord30 C/HDL 2.7 Ratio 12/30/2017 Urine Culture Ucult Preliminary NO Growth Day 1 04/17/2017 Urine Culture Ucult Complete NO Growth Day 2 04/17/2017 Comp Metabolic Oce882 NA 143 mEq/L 04/15/2017 Comp Metabolic Dfi701 K 4.6 mEq/L 04/15/2017 Comp Metabolic Nif330 CL 110 mEq/L 04/15/2017 Comp Metabolic Hin498 CO2 30.0 mEq/L 04/15/2017 Comp Metabolic Gdj859 ANION GAP 8 04/15/2017 Comp Metabolic Tqg853 GLUCOSE 159 mg/dL 04/15/2017 Comp Metabolic Abn265 Creat 1.1 mg/dL 04/15/2017 Comp Metabolic Asz977 eGFR 54 ml/min/1.73m2 04/15/2017 Comp Metabolic Xwm811 BUN 27 mg/dL 04/15/2017 Comp Metabolic Iag880 B/C Ratio 25.7 Ratio 04/15/2017 Comp Metabolic Kds630 CALCIUM 9.4 mg/dL 04/15/2017 Comp Metabolic Zfl829 ALK PHOS 93 U/L 04/15/2017 Comp Metabolic Gvp066 AST(SGOT) 19 U/L 04/15/2017 Comp Metabolic Wcs276 ALT(SGPT) 18 U/L 04/15/2017 Comp Metabolic Kbm261 BILI T 0.6 mg/dL 04/15/2017 Comp Metabolic Zgs251 ALBUMIN 3.9 g/dL 04/15/2017 Comp Metabolic Svz130 TPRO 6.5 g/dL 04/15/2017 Comp Metabolic Grt589 GLOB 2.6 g/dL 04/15/2017 Comp Metabolic Ung003 A/G Ratio 1.5 Ratio 04/15/2017 Comp Metabolic Oly381 Osmo 293 mOsmo 04/15/2017 Tsh Ord6 hTSH II 2.05 uIU/mL 04/15/2017 %Hba1C Gcx740 % HbA1c 94913- 6 6.3 % 04/15/2017 %Hba1C Fwl052 Gluc Ave 134 mg/dL 04/15/2017 Cbc With [...] 29.0 pg 04/15/2017 Cbc With Differential Ord2 Loving% 6.9 % 04/15/2017 Cbc With Differential Ord2 MCHC 33.5 pg 04/15/2017 Cbc With Differential Ord2 Eos% 2.1 % 04/15/2017 Cbc With Differential Ord2 Baso% 0.1 % 04/15/2017 Cbc With Differential Ord2 PLT 218 K/ul 04/15/2017 Cbc With Differential Ord2 Neut ABS# 4.83 K/ul 04/15/2017 Cbc With Differential Ord2 RDW 14.4 % 04/15/2017 Cbc With Differential Ord2 Lymph ABS# 1.58 K/ul 04/15/2017 Cbc With Differential Ord2 Loving ABS# 0.5 K/ul 04/15/2017 Cbc With Differential [...] Ord28 U-Com Culture to follow 04/15/2017 %Hba1C Gvc896 % HbA1c 36291- 6 5.8 % 01/07/2017 %Hba1C Got020 Gluc Ave 120 mg/dL 01/07/2017 Urine Culture Ucult Complete NO Growth Day 2 09/21/2016 Urine Culture Ucult Preliminary NO Growth Day 1 09/21/2016 %Hba1C Czm574 % HbA1c 74419- 6 6.0 % 09/17/2016 %Hba1C Dar490 Gluc Ave 126 mg/dL 09/17/2016 Comp Metabolic Nbu487 NA 140 mEq/L 09/17/2016 Comp Metabolic Zki509 K 4.1 mEq/L 09/17/2016 Comp Metabolic Arb920 CL 105 mEq/L 09/17/2016 Comp Metabolic Xiu369 CO2 29.0 mEq/L 09/17/2016 Comp Metabolic Nkw749 ANION GAP 10 09/17/2016 Comp Metabolic Rdo040 GLUCOSE 89 mg/dL 09/17/2016 Comp Metabolic Isl983 Creat 0.9 mg/dL 09/17/2016 Comp Metabolic Wmf961 eGFR 65 ml/min/1.73m2 09/17/2016 Comp Metabolic Htb715 BUN 20 mg/dL 09/17/2016 Comp Metabolic Vyx513 B/C Ratio 22.2 Ratio 09/17/2016 Comp Metabolic Ayu545 CALCIUM 9.3 mg/dL 09/17/2016 Comp Metabolic Aqn500 ALK PHOS 107 U/L 09/17/2016 Comp Metabolic Jfr939 AST(SGOT) 22 U/L 09/17/2016 Comp Metabolic Qhi225 ALT(SGPT) 15 U/L 09/17/2016 Comp Metabolic Jhy255 BILI T 0.7 mg/dL 09/17/2016 Comp Metabolic Ohh004 ALBUMIN 4.0 g/dL 09/17/2016 Comp Metabolic Iku186 TPRO 6.8 g/dL 09/17/2016 Comp Metabolic Jwm640 GLOB 2.8 g/dL 09/17/2016 Comp Metabolic Gya153 A/G Ratio 1.4 Ratio 09/17/2016 Comp Metabolic Pzz534 Osmo 281 mOsmo 09/17/2016 Microalbumin Icl555 MicroAlb 44.3 mg/dL 09/17/2016 Tsh Ord6 hTSH [...] 87.1 fl 09/17/2016 Cbc With Differential Ord2 Loving% 8.1 % 09/17/2016 Cbc With Differential Ord2 [...] 1.78 K/ul 09/17/2016 Cbc With Differential Ord2 Loving ABS# 0.6 K/ul 09/17/2016 Cbc With Differential Ord2 Eos ABS# 0.2 K/ul 09/17/2016 Cbc With Differential Ord2 Baso ABS# 0.0 K/ul 09/17/2016 Lipid Ord30 CHOL 136 mg/dL 09/17/2016 Lipid Ord30 HDL 50.0 mg/dl 09/17/2016 Lipid Ord30 TRIG 70 mg/dL 09/17/2016 Lipid Ord30 LDL 72 mg/dL 09/17/2016 Lipid Ord30 C/HDL 2.7 Ratio 09/17/2016 Review of Systems System Result Effective Dates Constitutional No recent illness 08/16/2018 Constitutional No [...] palpation 07/06/2016 None Procedures Procedure Codes Date URINALYSIS NONAUTO W/O SCOPE CPT-4: 36155 12/29/2017 PPPS, SUBSEQ VISIT CPT- 4: G0439 03/30/2017 THER/PROPH/DIAG INJ SC/IM CPT-4: 95599 03/16/2017 TRIAMCINOLONE ACET INJ NOS CPT-4: J3301 03/16/2017 THER/PROPH/DIAG INJ SC/IM CPT-4: 03301 03/12/2017 TRIAMCINOLONE ACET INJ NOS CPT-4: J3301 03/12/2017 THER/PROPH/DIAG INJ SC/IM CPT-4: 44639 11/05/2016 TRIAMCINOLONE ACET INJ NOS CPT-4: J3301 11/05/2016 URINALYSIS NONAUTO W/O SCOPE CPT-4: 28847 09/18/2016 Vital Signs Date Vital 08/16/2018 Blood Pressure 1: 140/70 Code: 8480-6 BMI: 34.4 Code: 36156-2 Heart Rate 1: 63 bpm Height: 5'7" SpO2: 95% Weight: 219 lbs 14 oz 04/12/2018 Blood Pressure 1: 160/70 Code: 8480-6 BMI: 33.0 Code: 94749-9 Heart Rate 1: 82 bpm Height: 5'7" SpO2: 95% Weight: 211 lbs 01/20/2018 Blood Pressure 1: 152/66 Code: 8480-6 BMI: 31.8 Code: 02003-1 Heart Rate 1: 52 bpm Height: 5'7" SpO2: 98% Temperature: 36.3 (C) / 97.3 (F) Weight: 203 lbs 12/29/2017 Blood Pressure 1: 168/72 Code: 8480-6 BMI: 32.1 Code: 97335-8 Heart Rate 1: 63 bpm Height: 5'7" SpO2: 98% Weight: 205 lbs 08/24/2017 Blood Pressure 1: 150/70 Code: 8480-6 Blood Pressure 1: 186/70 Code: 8480-6 BMI: 31.8 Code: 00910-4 Heart Rate 1: 53 bpm Height: 5'7" SpO2: 98% Weight: 203 lbs 07/26/2017 Blood Pressure 1: 206/78 Code: 8480-6 Blood Pressure 2: 210/84 Code: 8480-6 BMI: 32.0 Code: 98571-5 Heart Rate 1: 49 bpm Height: 5'7" SpO2: 97% Weight: 204 lbs 07/20/2017 Blood Pressure 1: 148/82 Code: 8480-6 Heart Rate 1: 90 bpm SpO2: 98% 05/27/2017 Blood Pressure 1: 142/72 Code: 8480-6 BMI: 30.5 Code: 32332-9 Heart Rate 1: 97 bpm Height: 5'7" [...] 1: 148/70 Code: 8480-6 BMI: 30.4 Code: 54472-3 Heart Rate 1: 54 bpm Height: 5'7" SpO2: 97% Weight: 194 lbs 03/30/2017 BMI: 33.2 Code: 20111-5 Height: 5'7" Weight: 212 lbs 03/16/2017 Blood Pressure 1: 140/80 Code: 8480-6 BMI: 34.0 Code: 28125-0 Heart Rate 1: 70 bpm Height: 5'7" SpO2: 95% Weight: 217 lbs 03/12/2017 Blood Pressure 1: 142/80 Code: 8480-6 BMI: 34.0 Code: 41736-0 Heart Rate 1: 76 bpm Height: 5'7" SpO2: 92% Weight: 217 lbs 02/17/2017 Blood Pressure 1: 162/64 Code: 8480-6 BMI: 32.9 Code: 29906-0 Heart Rate 1: 59 bpm Height: 5'7" SpO2: 97% Weight: 210 lbs 01/20/2017 Blood Pressure 1: 162/74 Code: 8480-6 BMI: 32.9 Code: 20476-3 Heart Rate 1: 56 bpm Height: 5'7" SpO2: 98% Weight: 210 lbs 11/17/2016 Blood Pressure 1: 156/60 Code: 8480-6 BMI: 34.8 Code: 50598-3 Heart Rate 1: 63 bpm Height: 5'7" SpO2: 96% Weight: 222 lbs 11/05/2016 Blood Pressure 1: 160/68 Code: 8480-6 BMI: 34.5 Code: 99093-5 Heart Rate 1: 66 bpm Height: 5'7" SpO2: 97% Temperature: 36.9 (C) / 98.5 (F) Weight: 220 lbs 09/21/2016 Blood Pressure 1: 166/72 Code: 8480-6 Blood Pressure 1: 180/72 Code: 8480-6 BMI: 32.1 Code: 62573-3 Heart Rate 1: 57 bpm Height: 5'7" SpO2: 98% Weight: 205 lbs 09/16/2016 Blood Pressure 1: 168/70 Code: 8480-6 Heart Rate 1: 49 bpm SpO2: 95% 08/03/2016 Blood Pressure 1: 162/70 Code: 8480-6 BMI: 32.0 Code: 29247-2 Heart Rate 1: 43 bpm Height: 5'7" SpO2: 98% Weight: 204 lbs 07/06/2016 Blood Pressure 1: 170/86 Code: 8480-6 BMI: 32.0 Code: 18021-4 Heart Rate 1: 48 bpm Height: 5'7" SpO2: 97% Weight: 204 lbs Functional Status No Functional Status data History of Present Illness Symptom Name Status Result Effective Date Notes foot pain Location on the left 08/16/2018 [...] data Encounters Encounter Performer Location Codes Date [id number]) 27921 EST. PATIENT, LEVEL IV Diagnosis: Essential (primary) hypertension[ICD10: I10] Diagnosis: Type 2 diabetes mellitus without complications[ICD10: E11.9] Diagnosis: Mixed hyperlipidemia[ICD10: E78.2] Fifi Camejo MD, [facility] CPT- 4: 54528 08/16/2018 [id number]) 16209 EST. PATIENT, LEVEL IV Diagnosis: Type 2 diabetes mellitus without complications[ICD10: E11.9] Diagnosis: Mixed hyperlipidemia[ICD10: E78.2] Diagnosis: Essential (primary) hypertension[ICD10: I10] Diagnosis: Dysuria[ICD10: R30.0] Diagnosis: Pain in left foot[ICD10: M79.672] Fifi Camejo MD, [facility] CPT- 4: 25922 04/12/2018 [id number] 16993 EST. PATIENT, LEVEL III Diagnosis: Otalgia, bilateral[ICD10: H92.03] Diagnosis: Other allergic rhinitis[ICD10: J30.89] Yuridia Camejo MD, [facility] CPT-4: 15226 01/20/2018 [id number]) 01126 EST. PATIENT, LEVEL IV Diagnosis: Type 2 diabetes mellitus without complications[ICD10: E11.9] Diagnosis: Mixed hyperlipidemia[ICD10: E78.2] Diagnosis: Essential (primary) hypertension[ICD10: I10] Diagnosis: Dysuria[ICD10: R30.0] Fifi Camejo MD, [facility] CPT-4: 02382 12/29/2017 [id number] 14737 EST. PATIENT, LEVEL IV Diagnosis: Essential (primary) hypertension[ICD10: I10] Diagnosis: Cysts of left upper eyelid[ICD10: H02.824] Diagnosis: Pain in left foot[ICD10: M79.672] Fifi Camejo MD, [facility] CPT- 4: 11428 08/24/2017 ([id number]) 76643 EST. PATIENT, LEVEL III Diagnosis: Essential (primary) hypertension[ICD10: I10] Fifi Camejo MD, [facility] CPT-4: 32659 07/26/2017 ([id number]) Miscellaneous no charge Diagnosis: Essential (primary) hypertension[ICD10: I10] Fifi Camejo MD [facility] CPT-4: 61374 07/20/2017 95396 EST. PATIENT, LEVEL III Diagnosis: Otalgia, bilateral[ICD10: H92.03] Diagnosis: Dizziness and giddiness[ICD10: R42] Diagnosis: Mixed hyperlipidemia[ICD10: E78.2] Krysta Camejo MD, [facility] CPT-4: 96837 05/27/2017 ([id number]) Miscellaneous no charge Diagnosis: Essential (primary) hypertension[ICD10: I10] Kyrsta Camejo MD, [facility] CPT-4: 71888 05/07/2017 ([id number]) 96585 EST. PATIENT, LEVEL IV Diagnosis: Otalgia, bilateral[ICD10: H92.03] Diagnosis: Dizziness and giddiness[ICD10: R42] Diagnosis: Orthostatic hypotension[ICD10: I95.1] Fifi Camejo MD, [facility] CPT-4: 15641 05/03/2017 32820 EST. PATIENT, LEVEL IV Diagnosis: Essential (primary) hypertension[ICD10: I10] Diagnosis: Type 2 diabetes mellitus without complications[ICD10: E11.9] Diagnosis: Gastro-esophageal reflux disease without esophagitis[ICD10: K21.9] Diagnosis: Dizziness and giddiness[ICD10: R42] Diagnosis: Dysuria[ICD10: R30.0] Diagnosis: Other malaise[ICD10: R53.81] Krysta Camejo MD, [facility] CPT-4: 50195 04/15/2017 ([id number]) 81028 EST. PATIENT, LEVEL IV Diagnosis: Type 2 diabetes mellitus without complications[ICD10: E11.9] Diagnosis: Otalgia, bilateral[ICD10: H92.03] Diagnosis: Essential (primary) hypertension[ICD10: I10] Diagnosis: Other allergic rhinitis[ICD10: J30.89] Fifi Camejo MD, [facility] CPT-4: 19848 03/16/2017 03917 EST. PATIENT, LEVEL IV Diagnosis: Other acute sinusitis[ICD10: J01.80] Diagnosis: Acute suppurative otitis media without spontaneous rupture of ear drum, bilateral[ICD10: H66.003] Diagnosis: Other allergic rhinitis[ICD10: J30.89] Krysta Camejo MD [facility] CPT- 4: 41430 03/12/2017 ([id number]) 88395 EST. PATIENT, LEVEL IV Diagnosis: Essential (primary) hypertension[ICD10: I10] Diagnosis: Type 2 diabetes mellitus without complications[ICD10: E11.9] Fifi Camejo MD [facility] CPT-4: 65299 02/17/2017 ([id number]) 96034 EST. PATIENT, LEVEL IV Diagnosis: Essential (primary) hypertension[ICD10: I10] Diagnosis: Type 2 diabetes mellitus without complications[ICD10: E11.9] Fifi Camejo MD [facility] CPT-4: 22100 01/20/2017 ([id number]) 01843 EST. PATIENT, LEVEL IV Diagnosis: Essential (primary) hypertension[ICD10: I10] Diagnosis: Type 2 diabetes mellitus without complications[ICD10: E11.9] Diagnosis: Gastro-esophageal reflux disease without esophagitis[ICD10: K21.9] Fifi Camejo MD [facility] CPT-4: 82533 11/17/2016 ([id number]) 70069 EST. PATIENT, LEVEL III Diagnosis: Acute bronchitis due to other specified organisms[ICD10: J20.8] Diagnosis: Cough[ICD10: R05] Fifi Camejo MD [facility] CPT-4: 91771 11/05/2016 ([id number]) 16939 EST. PATIENT, LEVEL IV Diagnosis: Essential (primary) hypertension[ICD10: I10] Diagnosis: Type 2 diabetes mellitus without complications[ICD10: E11.9] Fifi Camejo MD [facility] CPT-4: 04021 09/21/2016 ([id number]) Miscellaneous no charge Diagnosis: Essential (primary) hypertension[ICD10: I10] Fifi Camejo MD [facility] CPT-4: 90102 09/16/2016 ([id number]) 02344 EST. PATIENT, LEVEL III Diagnosis: Type 2 diabetes mellitus without complications[ICD10: E11.9] Diagnosis: Essential (primary) hypertension[ICD10: I10] [facility] CPT-4: 95198 08/03/2016 ([id number]) OFFICE VISIT, NEW - LEVEL 4 Diagnosis: Essential (primary) hypertension[ICD10: I10] Diagnosis: Type 2 diabetes mellitus without complications[ICD10: E11.9] Diagnosis: Carpal tunnel syndrome, left upper limb[ICD10: G56.02] Diagnosis: Right upper quadrant pain[ICD10: R10.11] Diagnosis: Mixed hyperlipidemia[ICD10: E78.2] [facility] CPT- 4: 88592 07/06/2016 Plan of Care Planned Activity Notes [...] me dications. 08/16/2018 Appointment: Fifi Camejo WPtel: [address] [place], [place] [id number] (15 min) Moderate 08/16/2018 Patient Education: Patient [...] the foot. 04/12/2018 Appointment: Fifi Camejo [facility]Ptel: [facility] [place] (15 min) Moderate 04/12/2018 Patient Education: Patient Medication Summary Completed 04/12/2018 Care Plan: Referral Order SNOMED-CT : 042348979 Pending 04/12/2018 Patient Education: Patient Medication Summary [...] allergy spray. 01/20/2018 Appointment: Yuridia Walsh WPtel: [phone] [place] (15 min) Moderate 01/20/2018 Patient Education: [...] controlled. 12/29/2017 Appointment: Fifi Camejo WPtel: [phone] [facility] [place] (15 min) Moderate 12/29/2017 Patient Education: Patient [...] Chago Singh 08/24/2017 Appointment: Fifi Camejo [facility]Ptel: [phone] [facility] [place] (15 min) Moderate 08/24/2017 Patient Education: Patient Medication Summary Completed 08/24/2017 Care Plan: Referral Order SNOMED-CT : [id number] Pending 08/24/2017 Visit Plan: Hypertension - uncontrolled [...] above. 07/26/2017 Appointment: Fifi Camejo WPtel: [phone] [facility] (15 min) Moderate 07/26/2017 Patient [...] medications. 05/27/2017 Appointment: Krysta Dale [facility]Ptel: [phone] [facility] (15 min) Moderate 05/27/2017 Patient Education: Patient Medication Summary Completed 05/27/2017 Appointment: Nurse Visit 05/07/2017 Patient Education: Patient Medication Summary Completed 05/07/2017 Visit Plan: Persistent vergito with bilateral air-fluid levels and ear pain. Pt was seen by Dr. Calvo- she did not like his response to her complaints. I have recommended a referral to ENT in [place] or [place]. I suspect she may need myringotomy tubes. Pt to continue with flonase. Orthostatic hypotension - dc doxazosin. Monitor blood pressures at home. stop the doxazosin meclizine change to 1/2 pill three times a day come back on Wednesday for blood pressure check 05/03/2017 Appointment: Fifi Camejo WPtel: [phone] [facility] (15 min) Moderate 05/03/2017 Patient Education: Patient Medication Summary Completed 05/03/2017 Appointment: Fifi Camejo [facility]Ptel: [phone] [facility] (15 min) Moderate 04/21/2017 Visit Plan: Hypertension, [...] control. 04/15/2017 Appointment: Krysta Dale WPtel: [phone] [facility] (30 min) Complex 04/15/2017 Patient Education: [...] surrogate. 03/30/2017 Appointment: Krysta Dale WPtel: [phone] [facility] [facility] - Annual Wellness Visit [...] [facility] 24 Hypertension - well controlled - continue with current medications, continue with no added salt diet. Pt has been encouraged to exercise daily. The pt has been advised to call the office if there are any acute concerns about change in blood pressure readings at home. 03/16/2017 Appointment: Fifi Camejo WPtel: [phone] [facility] [place] (30 min) Complex 03/16/2017 Patient Education: Patient Medication Summary Completed 03/16/2017 Patient Education: Obesity Completed 03/16/2017 Care Plan: Referral Order SNOMED-CT : [id number] Pending 03/16/2017 Visit Plan: Allergies - chronic [...] worsen. 03/12/2017 Appointment: Krysta Dale WPtel: [phone] [facility] (15 min) Moderate 03/12/2017 Patient Education: [...] Camejo WPtel: [phone] [facility] [place] (30 min) Complex 02/17/2017 Patient Education: Patient [...] controlled. 01/20/2017 Appointment: Fifi Camejo WPtel: [phone] [facility] (30 min) Complex 01/20/2017 Patient Education: Patient [...] dexilant 11/17/2016 Appointment: Fifi Camejo WPtel: [phone] [facility] (30 min) Complex 11/17/2016 Patient Education: Patient [...] range. 09/21/2016 Appointment: Fifi Camejo WPtel: [phone] [facility] (15 min) Moderate 09/21/2016 Patient Education: Patient [...] this time. 08/03/2016 Appointment: Fifi Camejo WPtel: [address] [place], [place] [address] (15 min) Moderate 08/03/2016 Patient Education: Patient [...] improving. 07/06/2016 Appointment: Fifi Camejo WPtel: [phone] [facility] New Patient 07/06/2016 Patient Education: Patient Medication [...] monitor your heart rate Consider referral for metal hanger for possible stress test if needed. Call [...] monitor your heart rate Consider referral for metal hanger for possible stress test if needed. Call [...] have recommended a referral to ENT in [place] or [place]. I suspect she may need myringotomy tubes. [...] - recommended referral to Dr. Anders in [place]
--- OUTSIDE RECORDS SUMMARY | 2019-03-08 17:27 | XMS REPORT | CCD ---
Author Author Fifi Camejo MD, [facility] Address [address] [place] [address] Phone Care Team Providers Care Trapper Animal Name Role Phone PP Unavailable CCM Unavailable Summary Purpose Interface Exchange Insurance Providers Payer name Policy type / Coverage type Covered libertarian ID Effective Begin Date Effective End Date WPS Medicare Part B Medicare Part B [id number] 2018 Unknown FOR LIFE WPS Medicare Part B [id number] 2018 Unknown Family history Father Diagnosis Age At Onset Cancer Unknown Brother Diagnosis Age At Onset Diabetes mellitus Type 2 Unknown Heart Attack Unknown Social History Social History Element Codes Description Effective Dates Marital status Unknown Wu 11/05/2016 Number of children Unknown 1 07/06/2016 Employment Unknown Retired 07/06/[address]: 323053524 Never smoker 07/06/[address]: 449541450 Never drinks alcohol 07/06/2016 Allergies, Adverse Reactions, [...] Start Date Stop Date Status Fill Instructions clonidine HCl 0.1 mg tablet RxNorm: 454415 1 Tablet(s) PO QAM 08/16/2018 08/10/2019 Active losartan 100 mg tablet RxNorm: 000365 1 TABLET(S) PO DAILY FOR HIGH BLOOD PRESSURE 08/12/2018 No Stop Date Active alprazolam 0.5 mg tablet RxNorm: 816915 1 Tablet(s) PO TID as needed anxiety 06/30/2018 12/26/2018 Active fluticasone 50 mcg/actuation nasal spray,suspension RxNorm: 2701613 USE 1 SPRAY NASALLY TWICE A DAY 05/06/2018 No Stop Date Active clonidine HCl 0.1 mg tablet RxNorm: 370265 1 Tablet(s) PO BID 04/14/2018 08/15/2018 Inactive clonidine HCl 0.1 mg tablet RxNorm: 116685 1 Tablet(s) PO TID 04/12/2018 04/13/2018 Inactive Zithromax Z-Juan 250 mg tablet RxNorm: 321050 1 Tablet(s) PO UD 01/20/2018 No Stop Date Active disregard first rx for 1 - patient needs 3 packs-please dispense generic azithromycin Zithromax Z-Juan 250 mg tablet RxNorm: 453094 1 Tablet(s) PO UD 01/20/2018 01/19/2018 Inactive Zithromax Z-Juan 250 mg tablet RxNorm: 890881 1 Tablet(s) PO UD 01/20/2018 01/19/2018 Inactive disregard first rx for 1 - patient needs 3 packs Zithromax Z-Juan 250 mg tablet RxNorm: 163289 1 Tablet(s) PO UD 01/20/2018 01/19/2018 Inactive atorvastatin 10 mg tablet RxNorm: 984084 1 Tablet(s) PO QPM 12/30/2017 12/24/2018 Active atorvastatin 10 mg tablet RxNorm: 523059 1 Tablet(s) PO QPM 12/30/2017 12/29/2017 Inactive metoprolol tartrate 50 mg tablet RxNorm: 846578 1/2 Tablet(s) PO BID 12/29/2017 12/23/2018 Active clonidine HCl 0.1 mg tablet RxNorm: 441431 1 Tablet(s) PO BID 12/29/2017 04/11/2018 Inactive Lipitor 10 mg tablet RxNorm: 235877 1 Tablet(s) PO QPM 12/29/2017 12/29/2017 Inactive OKAY TO DISPENSE GENERIC alprazolam 0.5 mg tablet RxNorm: 097825 1 Tablet(s) PO TID as needed anxiety 11/18/2017 05/16/2018 Inactive glimepiride 4 mg tablet RxNorm: 832626 1 TABLET(S) PO DAILY 11/15/2017 No Stop Date Active alprazolam 0.5 mg tablet RxNorm: 898521 1 Tablet(s) PO TID as needed anxiety 09/20/2017 11/17/2017 Inactive Zithromax Z-Juan 250 mg tablet RxNorm: 331829 1 Tablet(s) PO UD 09/20/2017 12/28/2017 Inactive Zithromax Z-Juan 250 mg tablet RxNorm: 866787 1 Tablet(s) PO UD 09/14/2017 09/19/2017 Inactive amlodipine 10 mg tablet RxNorm: 912977 1 Tablet(s) PO daily 08/24/2017 08/18/2018 Active clonidine HCl 0.1 mg tablet RxNorm: 464533 1/2 Tablet(s) PO BID 08/24/2017 12/28/2017 Inactive erythromycin 5 mg/gram (0.5 %) eye ointment RxNorm: 949847 1 Gram(s) ophthalmic (eye) QID left eye cyst 08/24/2017 09/06/2017 Inactive losartan 100 mg tablet RxNorm: 676596 1 Tablet(s) PO daily for high blood pressure 08/16/2017 08/10/2018 Inactive metoprolol tartrate 50 mg tablet RxNorm: 667299 1/2 Tablet(s) PO BID 07/26/2017 12/28/2017 Inactive clonidine HCl 0.1 mg tablet RxNorm: 310359 1/2 Tablet(s) PO BID 07/26/2017 08/23/2017 Inactive metoprolol tartrate 50 mg tablet RxNorm: 518275 1 Tablet(s) PO BID 07/21/2017 07/25/2017 Inactive amlodipine 10 mg tablet RxNorm: 602559 1 TABLET(S) PO DAILY 06/29/2017 08/23/2017 Inactive Lipitor 10 mg tablet RxNorm: 219198 1 Tablet(s) PO QPM 05/27/2017 12/28/2017 Inactive OKAY TO DISPENSE GENERIC alprazolam 0.5 mg tablet RxNorm: 599337 1 Tablet(s) PO TID as needed anxiety 05/18/2017 08/15/2017 Inactive hydrochlorothiazide 12.5 mg tablet RxNorm: 944309 1 Tablet(s) PO daily 04/22/2017 05/21/2017 Inactive hydrochlorothiazide 12.5 mg tablet RxNorm: 791120 1 Tablet(s) PO daily 04/22/2017 04/21/2017 Inactive Cipro 500 mg tablet RxNorm: 212465 1 Tablet(s) PO BID 04/16/2017 04/22/2017 Inactive Zofran 4 mg tablet RxNorm: 246432 1 Tablet(s) PO BID as needed nausea and vomitting 04/15/2017 04/19/2017 Inactive Lipitor 10 mg tablet RxNorm: 119358 1 Tablet(s) PO QPM 03/30/2017 05/26/2017 Inactive OKAY TO DISPENSE GENERIC Kenalog 40 mg/mL suspension for injection RxNorm: 9352732 1 Milliliter(s) Inj 03/16/2017 03/16/2017 Inactive doxazosin 4 mg tablet RxNorm: 215962 1.5 Tablet(s) PO BID 03/16/2017 05/02/2017 Inactive prednisone 10 mg tablets in a dose pack RxNorm: 541053 Tablet(s) take dose pack as directed PO take with food 03/16/2017 05/23/2017 Inactive Kenalog 40 mg/mL suspension for injection RxNorm: 6500192 Milliliter(s) Inj 03/12/2017 03/12/2017 Inactive Zithromax Z-Juan 250 mg tablet RxNorm: 852163 1 Tablet(s) PO daily 03/11/2017 03/10/2017 Inactive zpack as directed Zithromax Z-Juan 250 mg tablet RxNorm: 116133 1 Tablet(s) PO daily 03/11/2017 03/15/2017 Inactive zpack as directed doxazosin 4 mg tablet RxNorm: 943478 1.5 Tablet(s) PO BID 02/12/2017 03/15/2017 Inactive fluticasone 50 mcg/actuation nasal spray,suspension RxNorm: 4610706 1 SPRAY NASAL BID 02/05/2017 05/05/2018 Inactive metoprolol tartrate 75 mg tablet RxNorm: 1131341 1 Tablet(s) PO BID 01/29/2017 07/19/2017 Inactive metoprolol tartrate 75 mg tablet RxNorm: 4515106 1 Tablet(s) PO BID 01/29/2017 01/28/2017 Inactive doxazosin 4 mg tablet RxNorm: 530433 1 Tablet(s) PO BID 01/20/2017 02/11/2017 Inactive pantoprazole 40 mg tablet,delayed release RxNorm: 333632 1 Tablet(s) PO daily 12/24/2016 01/19/2017 Inactive pantoprazole 40 mg tablet,delayed release RxNorm: 031309 1 Tablet(s) PO daily 12/24/2016 12/23/2016 Inactive alprazolam 0.5 mg tablet RxNorm: 404168 1 Tablet(s) PO TID as needed anxiety 12/03/2016 04/01/2017 Inactive fluticasone 50 mcg/actuation nasal spray,suspension RxNorm: 6469599 1 [place] NASAL BID 11/25/2016 12/24/2016 Inactive Dexilant 60 mg capsule, delayed release RxNorm: 635623 1 Capsule(s) PO daily 11/25/2016 11/24/2016 Inactive fluticasone 50 mcg/actuation nasal spray,suspension RxNorm: 1469006 1 [place] NASAL BID 11/25/2016 11/24/2016 Inactive fluticasone 50 mcg/actuation nasal spray,suspension RxNorm: 3024922 1 [place] NASAL BID 11/25/2016 11/24/2016 Inactive Dexilant 60 mg capsule, delayed release RxNorm: 249269 1 Capsule(s) PO daily 11/25/2016 12/23/2016 Inactive ProAir RespiClick 90 mcg/actuation breath activated RxNorm: 5566077 1 INH bid and QID as needed 11/19/2016 05/17/2017 Inactive Please send STAT Flonase Allergy Relief 50 mcg/actuation nasal spray,suspension RxNorm: 8141425 1 [place] NASAL BID 11/19/2016 11/24/2016 Inactive glimepiride 4 mg tablet RxNorm: 776874 1 Tablet(s) PO daily 11/19/2016 11/13/2017 Inactive metoprolol tartrate 50 mg tablet RxNorm: 455951 1 Tablet(s) PO BID 11/19/2016 01/28/2017 Inactive Flonase Allergy Relief 50 mcg/actuation nasal spray,suspension RxNorm: 6941063 1 [place] NASAL BID 11/17/2016 11/18/2016 Inactive metoprolol tartrate 50 mg tablet RxNorm: 073651 1 Tablet(s) PO BID 11/17/2016 11/18/2016 Inactive ProAir RespiClick 90 mcg/actuation breath activated RxNorm: 4910668 1 INH bid and QID as needed 11/17/2016 11/16/2016 Inactive glimepiride 4 mg tablet RxNorm: 514498 1 Tablet(s) PO daily 11/17/2016 11/18/2016 Inactive ProAir RespiClick 90 mcg/actuation breath activated RxNorm: 0058828 1 INH bid and QID as needed 11/17/2016 11/18/2016 Inactive Please send STAT Kenalog 40 mg/mL suspension for injection RxNorm: 6730309 1 Milliliter(s) Inj 11/05/2016 11/05/2016 Inactive azithromycin 250 mg tablet RxNorm: 307309 Tablet(s) PO 2 tabs on day #1, then daily x 4 days 11/05/2016 12/23/2016 Inactive doxazosin 4 mg tablet RxNorm: 923121 1 Tablet(s) PO QPM 10/02/2016 01/19/2017 Inactive doxazosin 4 mg tablet RxNorm: 655483 1 Tablet(s) PO QPM 09/29/2016 10/01/2016 Inactive doxazosin 4 mg tablet RxNorm: 521405 1 Tablet(s) PO QPM 09/21/2016 09/28/2016 Inactive Cipro 500 mg tablet RxNorm: 729890 1 Tablet(s) PO BID 09/18/2016 09/17/2016 Inactive Cipro 500 mg tablet RxNorm: 512490 1 Tablet(s) PO BID 09/18/2016 09/24/2016 Inactive losartan 100 mg tablet RxNorm: 758473 1 Tablet(s) PO daily for high blood pressure 09/16/2016 09/15/2016 Inactive alprazolam 0.5 mg tablet RxNorm: 595059 1 Tablet(s) PO TID as needed anxiety 09/16/2016 11/14/2016 Inactive losartan 100 mg tablet RxNorm: 043848 1 Tablet(s) PO daily for high blood pressure 09/16/2016 08/15/2017 Inactive amlodipine 10 mg tablet RxNorm: 772551 1 Tablet(s) PO daily 08/03/2016 06/28/2017 Inactive Zyrtec 10 mg tablet RxNorm: 8309313 1 Tablet(s) PO daily 08/03/2016 09/15/2016 Inactive losartan 25 mg tablet RxNorm: 132441 1 Tablet(s) PO daily 07/08/2016 09/15/2016 Inactive Lipitor 10 mg tablet RxNorm: 713371 1 Tablet(s) PO QPM 07/08/2016 07/17/2016 Inactive OKAY TO DISPENSE GENERIC Lipitor 10 mg tablet RxNorm: 225329 1 Tablet(s) PO QPM 07/06/2016 07/07/2016 Inactive OKAY TO DISPENSE GENERIC losartan 25 mg tablet RxNorm: 929225 1 Tablet(s) PO daily 07/06/2016 07/07/2016 Inactive meclizine 25 mg tablet RxNorm: 698667 1 Tablet(s) PO TID as needed No Start Date Active Parafon Forte DSC 500 mg tablet RxNorm: 871168 1 Tablet(s) PO QID No Start Date Active Pazeo 0.7 % eye drops RxNorm: 7219026 Drop(s) ophthalmic (eye) as needed dry eyes No Start Date Active Zithromax Z-Juan 250 mg tablet RxNorm: 898949 1 Tablet(s) PO UD No Start Date 09/13/2017 Inactive glimepiride 4 mg tablet RxNorm: 819460 1 Tablet(s) PO daily No Start Date 11/16/2016 Inactive metoprolol tartrate 100 mg tablet RxNorm: 702077 1 Tablet(s) PO BID No Start Date 07/21/2017 Inactive naproxen 500 mg tablet RxNorm: 302037 1 Tablet(s) PO BID No Start Date 03/23/2017 Inactive amlodipine 5 mg tablet RxNorm: 901282 1 Tablet(s) PO daily No Start Date 08/02/2016 Inactive metoprolol tartrate 50 mg tablet RxNorm: 949903 1 Tablet(s) PO BID No Start Date 11/16/2016 Inactive Medication Administered Medication Codes Instructions Start Date Status Kenalog 40 mg/mL suspension for injection RxNorm: 8873719 1Milliliter 03/16/2017 No longer Active Kenalog 40 mg/mL suspension for injection RxNorm: 6870074 Milliliter 03/12/2017 No longer Active Kenalog 40 mg/mL suspension for injection RxNorm: 4760109 1Milliliter 11/05/2016 No longer Active Immunizations Vaccine [...] Item Code Result Date Lipid Ord30 CHOL 146 mg/dL 04/15/2018 Lipid Ord30 HDL 62.0 mg/dl 04/15/2018 Lipid Ord30 TRIG 88 mg/dL 04/15/2018 Lipid Ord30 LDL 66 mg/dL 04/15/2018 Lipid Ord30 C/HDL 2.4 Ratio 04/15/2018 %Hba1C Lky383 % HbA1c 74232- 6 6.3 % 04/15/2018 %Hba1C Ehb033 Gluc Ave 134 mg/dL 04/15/2018 Cbc With [...] 30.2 pg 04/15/2018 Cbc With Differential Ord2 Ector% 6.8 % 04/15/2018 Cbc With Differential Ord2 [...] 2.10 K/ul 04/15/2018 Cbc With Differential Ord2 [place] ABS# 0.5 K/ul 04/15/2018 Cbc With Differential Ord2 Eos ABS# 0.2 K/ul 04/15/2018 Cbc With Differential Ord2 Baso ABS# 0.0 K/ul 04/15/2018 Comp Metabolic Ygd619 NA 140 mEq/L 04/15/2018 Comp Metabolic Wdt862 K 4.3 mEq/L 04/15/2018 Comp Metabolic Peu476 CL 106 mEq/L 04/15/2018 Comp Metabolic Nuo098 CO2 23.0 mEq/L 04/15/2018 Comp Metabolic Sqj214 ANION GAP 15 04/15/2018 Comp Metabolic Pbo990 GLUCOSE 90 mg/dL 04/15/2018 Comp Metabolic Qsv574 Creat 1.2 mg/dL 04/15/2018 Comp Metabolic Uks452 eGFR 45 ml/min/1.73m2 04/15/2018 Comp Metabolic Fnt583 BUN 28 mg/dL 04/15/2018 Comp Metabolic Ejw048 B/C Ratio 22.8 Ratio 04/15/2018 Comp Metabolic Cjt680 CALCIUM 9.5 mg/dL 04/15/2018 Comp Metabolic Xgs695 ALK PHOS 95 U/L 04/15/2018 Comp Metabolic Egx820 AST(SGOT) 20 U/L 04/15/2018 Comp Metabolic Btw947 ALT(SGPT) 13 U/L 04/15/2018 Comp Metabolic Hlv265 BILI T 0.5 mg/dL 04/15/2018 Comp Metabolic Cqx428 ALBUMIN 4.1 g/dL 04/15/2018 Comp Metabolic Opq470 TPRO 6.6 g/dL 04/15/2018 Comp Metabolic Xxu938 GLOB 2.5 g/dL 04/15/2018 Comp Metabolic Wzz168 A/G Ratio 1.6 Ratio 04/15/2018 Comp Metabolic Rzb860 Osmo 284 mOsmo 04/15/2018 Comp Metabolic Afz785 NA 137 mEq/L 02/04/2018 Comp Metabolic Jhq086 K 4.0 mEq/L 02/04/2018 Comp Metabolic Fed725 CL 104 mEq/L 02/04/2018 Comp Metabolic Hcx318 CO2 27.0 mEq/L 02/04/2018 Comp Metabolic Mtb363 ANION GAP 10 02/04/2018 Comp Metabolic Fai201 GLUCOSE 212 mg/dL 02/04/2018 Comp Metabolic Mfv496 Creat 1.2 mg/dL 02/04/2018 Comp Metabolic Cco839 eGFR 47 ml/min/1.73m2 02/04/2018 Comp Metabolic Mfh677 BUN 20 mg/dL 02/04/2018 Comp Metabolic Vza295 B/C Ratio 16.8 Ratio 02/04/2018 Comp Metabolic Wfu339 CALCIUM 8.9 mg/dL 02/04/2018 Comp Metabolic Rvr017 ALK PHOS 107 U/L 02/04/2018 Comp Metabolic Axu263 AST(SGOT) 17 U/L 02/04/2018 Comp Metabolic Hey226 ALT(SGPT) 11 U/L 02/04/2018 Comp Metabolic Qhn700 BILI T 0.4 mg/dL 02/04/2018 Comp Metabolic Upr744 ALBUMIN 3.8 g/dL 02/04/2018 Comp Metabolic Lyl813 TPRO 6.2 g/dL 02/04/2018 Comp Metabolic Cwm573 GLOB 2.4 g/dL 02/04/2018 Comp Metabolic Yty806 A/G Ratio 1.6 Ratio 02/04/2018 Comp Metabolic Kpe652 Osmo 283 mOsmo 02/04/2018 %Hba1C Kje759 % HbA1c 07638- 6 6.3 % 12/30/2017 %Hba1C Uhh431 Gluc Ave 134 mg/dL 12/30/2017 Comp Metabolic Xaz172 NA 142 mEq/L 12/30/2017 Comp Metabolic Wwo257 K 4.4 mEq/L 12/30/2017 Comp Metabolic Aso895 CL 103 mEq/L 12/30/2017 Comp Metabolic Jiw778 CO2 31.0 mEq/L 12/30/2017 Comp Metabolic Xnl531 ANION GAP 12 12/30/2017 Comp Metabolic Zqg040 GLUCOSE 119 mg/dL 12/30/2017 Comp Metabolic Qeg106 Creat 1.4 mg/dL 12/30/2017 Comp Metabolic Ujv180 eGFR 41 ml/min/1.73m2 12/30/2017 Comp Metabolic Ucq512 BUN 27 mg/dL 12/30/2017 Comp Metabolic Scv950 B/C Ratio 20.0 Ratio 12/30/2017 Comp Metabolic Fop432 CALCIUM 9.9 mg/dL 12/30/2017 Comp Metabolic Ipx415 ALK PHOS 106 U/L 12/30/2017 Comp Metabolic Sgg376 AST(SGOT) 20 U/L 12/30/2017 Comp Metabolic Izt305 ALT(SGPT) 13 U/L 12/30/2017 Comp Metabolic Doj933 BILI T 0.7 mg/dL 12/30/2017 Comp Metabolic Kra353 ALBUMIN 4.2 g/dL 12/30/2017 Comp Metabolic Tie488 TPRO 6.7 g/dL 12/30/2017 Comp Metabolic Omo105 GLOB 2.6 g/dL 12/30/2017 Comp Metabolic Tpv838 A/G Ratio 1.6 Ratio 12/30/2017 Comp Metabolic Pbt539 Osmo 289 mOsmo 12/30/2017 Lipid Ord30 CHOL 167 mg/dL 12/30/2017 Lipid Ord30 HDL 63.0 mg/dl 12/30/2017 Lipid Ord30 TRIG 89 mg/dL 12/30/2017 Lipid Ord30 LDL 86 mg/dL 12/30/2017 Lipid Ord30 C/HDL 2.7 Ratio 12/30/2017 Urine Culture Ucult Preliminary NO Growth Day 1 04/17/2017 Urine Culture Ucult Complete NO Growth Day 2 04/17/2017 Comp Metabolic Uzm693 NA 143 mEq/L 04/15/2017 Comp Metabolic Gmy930 K 4.6 mEq/L 04/15/2017 Comp Metabolic Srb936 CL 110 mEq/L 04/15/2017 Comp Metabolic Guo611 CO2 30.0 mEq/L 04/15/2017 Comp Metabolic Pah691 ANION GAP 8 04/15/2017 Comp Metabolic Quk735 GLUCOSE 159 mg/dL 04/15/2017 Comp Metabolic Spe141 Creat 1.1 mg/dL 04/15/2017 Comp Metabolic Qpe801 eGFR 54 ml/min/1.73m2 04/15/2017 Comp Metabolic Ncv420 BUN 27 mg/dL 04/15/2017 Comp Metabolic Mfs018 B/C Ratio 25.7 Ratio 04/15/2017 Comp Metabolic Iru059 CALCIUM 9.4 mg/dL 04/15/2017 Comp Metabolic Ytn927 ALK PHOS 93 U/L 04/15/2017 Comp Metabolic Nha464 AST(SGOT) 19 U/L 04/15/2017 Comp Metabolic Orf182 ALT(SGPT) 18 U/L 04/15/2017 Comp Metabolic Rfu606 BILI T 0.6 mg/dL 04/15/2017 Comp Metabolic Abs986 ALBUMIN 3.9 g/dL 04/15/2017 Comp Metabolic Bwg558 TPRO 6.5 g/dL 04/15/2017 Comp Metabolic Kdf750 GLOB 2.6 g/dL 04/15/2017 Comp Metabolic Fyr320 A/G Ratio 1.5 Ratio 04/15/2017 Comp Metabolic Xsq138 Osmo 293 mOsmo 04/15/2017 Tsh Ord6 hTSH II 2.05 uIU/mL 04/15/2017 %Hba1C Dyp840 % HbA1c 70573- 6 6.3 % 04/15/2017 %Hba1C Ojw945 Gluc Ave 134 mg/dL 04/15/2017 Cbc With Differential Ord2 WBC 7.06 K/ul 04/15/2017 Cbc With Differential Ord2 RBC 4.86 M/ul 04/15/2017 Cbc With Differential Ord2 HGB 14.1 g/dl 04/15/2017 Cbc With Differential Ord2 Neut% 68.5 % 04/15/2017 Cbc With Differential Ord2 HCT 42.1 % 04/15/2017 Cbc With Differential Ord2 MCV 86.6 fl 04/15/2017 Cbc With Differential Ord2 Lymph% 22.4 % 04/15/2017 Cbc With Differential Ord2 MCH 29.0 pg 04/15/2017 Cbc With Differential Ord2 Ector% 6.9 % 04/15/2017 Cbc With Differential Ord2 [...] 1.58 K/ul 04/15/2017 Cbc With Differential Ord2 [place] ABS# 0.5 K/ul 04/15/2017 Cbc With Differential [...] Ord28 U-Com Culture to follow 04/15/2017 %Hba1C Ohg600 % HbA1c 65310- 6 5.8 % 01/07/2017 %Hba1C Obv560 Gluc Ave 120 mg/dL 01/07/2017 Urine Culture Ucult Preliminary NO Growth Day 1 09/21/2016 Urine Culture Ucult Complete NO Growth Day 2 09/21/2016 %Hba1C Kms886 % HbA1c 34947- 6 6.0 % 09/17/2016 %Hba1C Kwf205 Gluc Ave 126 mg/dL 09/17/2016 Comp Metabolic Opz120 NA 140 mEq/L 09/17/2016 Comp Metabolic Nku880 K 4.1 mEq/L 09/17/2016 Comp Metabolic Ygh842 CL 105 mEq/L 09/17/2016 Comp Metabolic Oyp299 CO2 29.0 mEq/L 09/17/2016 Comp Metabolic Fxq545 ANION GAP 10 09/17/2016 Comp Metabolic Bfz834 GLUCOSE 89 mg/dL 09/17/2016 Comp Metabolic Rpd549 Creat 0.9 mg/dL 09/17/2016 Comp Metabolic Tna115 eGFR 65 ml/min/1.73m2 09/17/2016 Comp Metabolic Znw621 BUN 20 mg/dL 09/17/2016 Comp Metabolic Qfc000 B/C Ratio 22.2 Ratio 09/17/2016 Comp Metabolic Pvq452 CALCIUM 9.3 mg/dL 09/17/2016 Comp Metabolic Lua567 ALK PHOS 107 U/L 09/17/2016 Comp Metabolic Mdl460 AST(SGOT) 22 U/L 09/17/2016 Comp Metabolic Zsl524 ALT(SGPT) 15 U/L 09/17/2016 Comp Metabolic Zon848 BILI T 0.7 mg/dL 09/17/2016 Comp Metabolic Zco063 ALBUMIN 4.0 g/dL 09/17/2016 Comp Metabolic Rtg441 TPRO 6.8 g/dL 09/17/2016 Comp Metabolic Bol799 GLOB 2.8 g/dL 09/17/2016 Comp Metabolic Jpn655 A/G Ratio 1.4 Ratio 09/17/2016 Comp Metabolic Jni365 Osmo 281 mOsmo 09/17/2016 Microalbumin Gtb417 MicroAlb 44.3 mg/dL 09/17/2016 Tsh Ord6 hTSH [...] 29.0 pg 09/17/2016 Cbc With Differential Ord2 [place]% 8.1 % 09/17/2016 Cbc With Differential Ord2 [...] 1.78 K/ul 09/17/2016 Cbc With Differential Ord2 [place] ABS# 0.6 K/ul 09/17/2016 Cbc With Differential [...] Codes Date URINALYSIS NONAUTO W/O SCOPE CPT-4: 33132 12/29/2017 PPPS, SUBSEQ VISIT CPT- 4: G0439 03/30/2017 THER/PROPH/DIAG INJ SC/IM CPT-4: 14165 03/16/2017 TRIAMCINOLONE ACET INJ NOS CPT-4: J3301 03/16/2017 THER/PROPH/DIAG INJ SC/IM CPT-4: 42964 03/12/2017 TRIAMCINOLONE ACET INJ NOS CPT-4: J3301 03/12/2017 THER/PROPH/DIAG INJ SC/IM CPT-4: 04092 11/05/2016 TRIAMCINOLONE ACET INJ NOS CPT-4: J3301 11/05/2016 URINALYSIS NONAUTO W/O SCOPE CPT-4: 60811 09/18/2016 Vital Signs Date Vital 08/16/2018 Blood Pressure 1: 140/70 Code: 8480-6 BMI: 34.4 Code: 66126-9 Heart Rate 1: 63 bpm Height: 5'7" SpO2: 95% Weight: 219 lbs 14 oz 04/12/2018 Blood Pressure 1: 160/70 Code: 8480-6 BMI: 33.0 Code: 19098-0 Heart Rate 1: 82 bpm Height: 5'7" SpO2: 95% Weight: 211 lbs 01/20/2018 Blood Pressure 1: 152/66 Code: 8480-6 BMI: 31.8 Code: 06038-3 Heart Rate 1: 52 bpm Height: 5'7" SpO2: 98% Temperature: 36.3 (C) / 97.3 (F) Weight: 203 lbs 12/29/2017 Blood Pressure 1: 168/72 Code: 8480-6 BMI: 32.1 Code: 52054-4 Heart Rate 1: 63 bpm Height: 5'7" SpO2: 98% Weight: 205 lbs 08/24/2017 Blood Pressure 1: 186/70 Code: 8480-6 Blood Pressure 1: 150/70 Code: 8480-6 BMI: 31.8 Code: 36768-0 Heart Rate 1: 53 bpm Height: 5'7" SpO2: 98% Weight: 203 lbs 07/26/2017 Blood Pressure 1: 206/78 Code: 8480-6 Blood Pressure 2: 210/84 Code: 8480-6 BMI: 32.0 Code: 20355-5 Heart Rate 1: 49 bpm Height: 5'7" SpO2: 97% Weight: 204 lbs 07/20/2017 Blood Pressure 1: 148/82 Code: 8480-6 Heart Rate 1: 90 bpm SpO2: 98% 05/27/2017 Blood Pressure 1: 142/72 Code: 8480-6 BMI: 30.5 Code: 28589-4 Heart Rate 1: 97 bpm Height: 5'7" [...] 1: 148/70 Code: 8480-6 BMI: 30.4 Code: 23351-1 Heart Rate 1: 54 bpm Height: 5'7" SpO2: 97% Weight: 194 lbs 03/30/2017 BMI: 33.2 Code: 97315-7 Height: 5'7" Weight: 212 lbs 03/16/2017 Blood Pressure 1: 140/80 Code: 8480-6 BMI: 34.0 Code: 38956-3 Heart Rate 1: 70 bpm Height: 5'7" SpO2: 95% Weight: 217 lbs 03/12/2017 Blood Pressure 1: 142/80 Code: 8480-6 BMI: 34.0 Code: 84997-2 Heart Rate 1: 76 bpm Height: 5'7" SpO2: 92% Weight: 217 lbs 02/17/2017 Blood Pressure 1: 162/64 Code: 8480-6 BMI: 32.9 Code: 48759-3 Heart Rate 1: 59 bpm Height: 5'7" SpO2: 97% Weight: 210 lbs 01/20/2017 Blood Pressure 1: 162/74 Code: 8480-6 BMI: 32.9 Code: 01514-4 Heart Rate 1: 56 bpm Height: 5'7" SpO2: 98% Weight: 210 lbs 11/17/2016 Blood Pressure 1: 156/60 Code: 8480-6 BMI: 34.8 Code: 73901-2 Heart Rate 1: 63 bpm Height: 5'7" SpO2: 96% Weight: 222 lbs 11/05/2016 Blood Pressure 1: 160/68 Code: 8480-6 BMI: 34.5 Code: 90864-5 Heart Rate 1: 66 bpm Height: 5'7" SpO2: 97% Temperature: 36.9 (C) / 98.5 (F) Weight: 220 lbs 09/21/2016 Blood Pressure 1: 180/72 Code: 8480-6 Blood Pressure 1: 166/72 Code: 8480-6 BMI: 32.1 Code: 81730-4 Heart Rate 1: 57 bpm Height: 5'7" SpO2: 98% Weight: 205 lbs 09/16/2016 Blood Pressure 1: 168/70 Code: 8480-6 Heart Rate 1: 49 bpm SpO2: 95% 08/03/2016 Blood Pressure 1: 162/70 Code: 8480-6 BMI: 32.0 Code: 05619-0 Heart Rate 1: 43 bpm Height: 5'7" SpO2: 98% Weight: 204 lbs 07/06/2016 Blood Pressure 1: 170/86 Code: 8480-6 BMI: 32.0 Code: 49142-2 Heart Rate 1: 48 bpm Height: 5'7" [...] data Encounters Encounter Performer Location Codes Date ([id number]) [id number] EST. PATIENT, LEVEL IV Diagnosis: Essential (primary) hypertension[ICD10: I10] Diagnosis: Type 2 diabetes mellitus without complications[ICD10: E11.9] Diagnosis: Mixed hyperlipidemia[ICD10: E78.2] Fifi Camejo MD, [facility] CPT- 4: 21682 08/16/2018 ([id number]) 87515 EST. PATIENT, LEVEL IV Diagnosis: Type 2 diabetes mellitus without complications[ICD10: E11.9] Diagnosis: Mixed hyperlipidemia[ICD10: E78.2] Diagnosis: Essential (primary) hypertension[ICD10: I10] Diagnosis: Dysuria[ICD10: R30.0] Diagnosis: Pain in left foot[ICD10: M79.672] [facility] CPT- 4: 95817 04/12/2018 ([id number]) 76528 EST. PATIENT, LEVEL III Diagnosis: Otalgia, bilateral[ICD10: H92.03] Diagnosis: Other allergic rhinitis[ICD10: J30.89] [facility] CPT-4: 00037 01/20/2018 ([id number]) 97664 EST. PATIENT, LEVEL IV Diagnosis: Type 2 diabetes mellitus without complications[ICD10: E11.9] Diagnosis: Mixed hyperlipidemia[ICD10: E78.2] Diagnosis: Essential (primary) hypertension[ICD10: I10] Diagnosis: Dysuria[ICD10: R30.0] Fifi Camejo MD, [facility] CPT-4: 94258 12/29/2017 ([id number]) 11111 EST. PATIENT, LEVEL IV Diagnosis: Essential (primary) hypertension[ICD10: I10] Diagnosis: Cysts of left upper eyelid[ICD10: H02.824] Diagnosis: Pain in left foot[ICD10: M79.672] Fifi Camejo MD, [facility] CPT- 4: 83680 08/24/2017 ([id number]) 07622 EST. PATIENT, LEVEL III Diagnosis: Essential (primary) hypertension[ICD10: I10] Fifi Camejo MD, [facility] CPT-4: 70130 07/26/2017 ([id number]) Miscellaneous no charge Diagnosis: Essential (primary) hypertension[ICD10: I10] Fifi Camejo MD, [facility] CPT-4: 56405 07/20/2017 [id number] EST. PATIENT, LEVEL III Diagnosis: Otalgia, bilateral[ICD10: H92.03] Diagnosis: Dizziness and giddiness[ICD10: R42] Diagnosis: Mixed hyperlipidemia[ICD10: E78.2] Krysta Camejo MD, [facility] CPT-4: 97228 05/27/2017 ([id number]) Miscellaneous no charge Diagnosis: Essential (primary) hypertension[ICD10: I10] Krysta Camejo MD, [facility] CPT-4: 79169 05/07/2017 ([id number]) 90839 EST. PATIENT, LEVEL IV Diagnosis: Otalgia, bilateral[ICD10: H92.03] Diagnosis: Dizziness and giddiness[ICD10: R42] Diagnosis: Orthostatic hypotension[ICD10: I95.1] Fifi Camejo MD, [facility] CPT-4: 95638 05/03/2017 [id number] EST. PATIENT, LEVEL IV Diagnosis: Essential (primary) hypertension[ICD10: I10] Diagnosis: Type 2 diabetes mellitus without complications[ICD10: E11.9] Diagnosis: Gastro-esophageal reflux disease without esophagitis[ICD10: K21.9] Diagnosis: Dizziness and giddiness[ICD10: R42] Diagnosis: Dysuria[ICD10: R30.0] Diagnosis: Other malaise[ICD10: R53.81] Krysta Camejo MD, [facility] CPT-4: 81542 04/15/2017 ([id number]) 72634 EST. PATIENT, LEVEL IV Diagnosis: Type 2 diabetes mellitus without complications[ICD10: E11.9] Diagnosis: Otalgia, bilateral[ICD10: H92.03] Diagnosis: Essential (primary) hypertension[ICD10: I10] Diagnosis: Other allergic rhinitis[ICD10: J30.89] Fifi Camejo MD, [facility] CPT-4: 10078 03/16/2017 51752 EST. PATIENT, LEVEL IV Diagnosis: Other acute sinusitis[ICD10: J01.80] Diagnosis: Acute suppurative otitis media without spontaneous rupture of ear drum, bilateral[ICD10: H66.003] Diagnosis: Other allergic rhinitis[ICD10: J30.89] Krysta Camejo MD, [facility] CPT- 4: 59631 03/12/2017 ([id number]) 43600 EST. PATIENT, LEVEL IV Diagnosis: Essential (primary) hypertension[ICD10: I10] Diagnosis: Type 2 diabetes mellitus without complications[ICD10: E11.9] Fifi Camejo MD, [facility] CPT-4: 43571 02/17/2017 [id number]) 91476 EST. PATIENT, LEVEL IV Diagnosis: Essential (primary) hypertension[ICD10: I10] Diagnosis: Type 2 diabetes mellitus without complications[ICD10: E11.9] Fifi Camejo MD, [facility] CPT-4: 77496 01/20/2017 ([id number]) 69218 EST. PATIENT, LEVEL IV Diagnosis: Essential (primary) hypertension[ICD10: I10] Diagnosis: Type 2 diabetes mellitus without complications[ICD10: E11.9] Diagnosis: Gastro-esophageal reflux disease without esophagitis[ICD10: K21.9] Fifi Camejo MD, [facility] CPT-4: 76998 11/17/2016 [id number]) 51833 EST. PATIENT, LEVEL III Diagnosis: Acute bronchitis due to other specified organisms[ICD10: J20.8] Diagnosis: Cough[ICD10: R05] Fifi Camejo MD, [facility] CPT-4: 24693 11/05/2016 ([id number]) 95500 EST. PATIENT, LEVEL IV Diagnosis: Essential (primary) hypertension[ICD10: I10] Diagnosis: Type 2 diabetes mellitus without complications[ICD10: E11.9] [facility] Redmond MD CPT-4: 41152 09/21/2016 ([id number]) Miscellaneous no charge Diagnosis: Essential (primary) hypertension[ICD10: I10] R[facility] Redmond MD CPT-4: 47746 09/16/2016 ([id number]) 69036 EST. PATIENT, LEVEL III Diagnosis: Type 2 diabetes mellitus without complications[ICD10: E11.9] Diagnosis: Essential (primary) hypertension[ICD10: I10] [facility] Redmond MD CPT-4: 02309 08/03/2016 ([id number]) OFFICE VISIT, NEW - LEVEL 4 Diagnosis: Essential (primary) hypertension[ICD10: I10] Diagnosis: Type 2 diabetes mellitus without complications[ICD10: E11.9] Diagnosis: Carpal tunnel syndrome, left upper limb[ICD10: G56.02] Diagnosis: Right upper quadrant pain[ICD10: R10.11] Diagnosis: Mixed hyperlipidemia[ICD10: E78.2] Fifi Camejo MD, [facility] CPT- 4: 08677 07/06/2016 Plan of Care Planned Activity Notes [...] normal liver response to me dications. 08/16/2018 Patient Education: Patient Medication Summary Completed 08/16/2018 Patient Education: Diabetes Completed 08/16/2018 Patient Education: Cholesterol Management Completed 08/16/2018 Care Plan: Comp Metabolic Pending 08/16/2018 Care Plan: Cbc With Differential Pending 08/16/2018 Care Plan: %Hba1C LOINC : 27513-5 Pending 08/16/2018 Care Plan: Tsh Pending 08/16/2018 Care Plan: Lipid Pending 08/16/2018 Care Plan: Microalbumin Pending 08/16/2018 Patient Education: Patient Medication Summary Completed [...] the foot. 04/12/2018 Appointment: Fifi Camejo WPtel: [facility] (15 min) Moderate 04/12/2018 Patient Education: Patient Medication Summary Completed 04/12/2018 Care Plan: Referral Order SNOMED-CT : 812989432 Pending 04/12/2018 Patient Education: Patient Medication Summary [...] spray. 01/20/2018 Appointment: Yuridia Walsh WPtel: [phone] [facility] [place] [address] (15 min) Moderate 01/20/2018 Patient Education: Patient [...] less controlled. 12/29/2017 Appointment: [facility]amejo [facility]el[facility] [address] [facility] [place] (15 min) Moderate 12/29/2017 Patient Education: [...] - recommended referral to Dr. Anders in [place] 08/24/2017 Appointment: [facility]ame[facility] [facility] (15 min) Moderate 08/24/2017 Patient Education: Patient Medication Summary Completed 08/24/2017 Care Plan: Referral Order SNOMED-CT : [id number] Pending 08/24/2017 Visit Plan: Hypertension - uncontrolled [...] listed above. 07/26/2017 Appointment: [phone] [facility] (15 min) Moderate 07/26/2017 Patient Education: Patient [...] medications. 05/27/2017 Appointment: Krysta Dale WPtel: [phone] [facility] (15 min) Moderate 05/27/2017 Patient Education: Patient Medication Summary Completed 05/27/2017 Appointment: Nurse Visit 05/07/2017 Patient Education: Patient Medication Summary Completed 05/07/2017 Visit Plan: Persistent vergito with bilateral air-fluid levels and ear pain. Pt was seen by Dr. Calvo- she did not like his response to her complaints. I have recommended a referral to ENT in [place] or [place]. I suspect she may need myringotomy tubes. Pt to continue with flonase. Orthostatic hypotension - dc doxazosin. Monitor blood pressures at home. stop the doxazosin meclizine change to 1/2 pill three times a day come back on Wednesday for blood pressure check 05/03/2017 Appointment: Fifi Camejo WPtel: [phone] [facility] [place] (15 min) Moderate 05/03/2017 Patient Education: Patient Medication Summary Completed 05/03/2017 Appointment: Fifi Camejo WPtel: [address] [facility] (15 min) Moderate 04/21/2017 Visit Plan: Hypertension, [...] glucose control. 04/15/2017 Appointment: Krysta Dale WPtel: [address] [place], [place] [address] (30 min) [facility] 04/15/2017 Patient Education: Patient Medication Summary Completed [...] surrogate. 03/30/2017 Appointment: [phone] [facility] - [facility] Wellness Visit 03/30/2017 Patient [...] have [facility] March 24 Hypertension - well controlled - continue with current medications, continue with no added salt diet. Pt has been encouraged to exercise daily. The pt has been advised to call the office if there are any acute concerns about change in blood pressure readings at home. 03/16/2017 Appointment: [facility] Camejo [facility]el[facility] [phone] [facility] (30 min) [facility] 03/16/2017 Patient Education: Patient Medication Summary Completed 03/16/2017 Patient Education: Obesity Completed 03/16/2017 Care Plan: Referral Order SNOMED-CT : [id number] Pending 03/16/2017 Visit Plan: Allergies - chronic [...] worsen. 03/12/2017 Appointment: Krysta Dale [phone] (15 min) Moderate 03/12/2017 Patient Education: Patient [...] less controlled. 02/17/2017 Appointment: Fifi Camejo [facility]el[phone] [facility] (30 min) Complex 02/17/2017 Patient Education: Patient [...] controlled. 01/20/2017 Appointment: Fif[facility] Camejo [facility]el[facility] [phone] [facility] (30 min) Complex 01/20/2017 Patient Education: Patient [...] dexilant 11/17/2016 Appointment: [facility]amejo [facility]el[facility] [phone] [facility] (30 min) Complex 11/17/2016 Patient Education: Patient [...] 90-110 range. 09/21/2016 Appointment: [facility]ame[facility]el[facility] [phone] [facility] (15 min) Moderate 09/21/2016 Patient Education: Patient [...] time. 08/03/2016 Appointment: [facility] Came[facility]el[facility] [phone] [facility] (15 min) Moderate 08/03/2016 Patient Education: Patient [...] not improving. 07/06/2016 Appointment: Fifi Camejo WPtel: [address] [place], [place] [address] New Patient 07/06/2016 Patient Education: Patient Medication [...] monitor your heart rate Consider referral for storage consultant for possible stress test if needed. Call [...] monitor your heart rate Consider referral for storage consultant for possible stress test if needed. Call [...] have recommended a referral to ENT in [place] or [place]. I suspect she may need myringotomy tubes. [...] - recommended referral to Dr. Anders in [place]
--- OUTSIDE RECORDS SUMMARY | 2019-03-08 17:31 | XMS REPORT | CCD ---
Author Author Fifi Camejo MD, [facility] Address [address] [place] [address] Phone Care Team Providers Care Recruiting Intern Name Role Phone PP Unavailable CCM Unavailable Summary Purpose Interface Exchange Insurance Providers Payer name Policy type / Coverage type Covered libertarian ID Effective Begin Date Effective End Date WPS Medicare Part B Medicare Part B [id number] 2018 Unknown FOR LIFE WPS Medicare Part B [id number] 2018 Unknown Family history Father Diagnosis Age At Onset Cancer Unknown Brother Diagnosis Age At Onset Diabetes mellitus Type 2 Unknown Heart Attack Unknown Social History Social History Element Codes Description Effective Dates Marital status Unknown Wu 11/05/2016 Number of children Unknown 1 07/06/2016 Employment Unknown Retired 07/06/[address]: 191996332 Never smoker 07/06/[address]: 032930384 Never drinks alcohol 07/06/2016 Allergies, Adverse Reactions, [...] Status Onset Date Resolved Date Encounter for screening mammogram for malignant neoplasm of breast ICD-9: V76.10 ICD-10: Z12.31 Active 07/18/2018 Unknown Essential (primary) hypertension ICD-9: 401.1 ICD-10: I10 Active 09/20/2016 Unknown Dysuria ICD-9: 788.1 ICD-10: R30.0 Active 09/17/2016 Unknown Mixed hyperlipidemia ICD- 9: 272.2 ICD-10: E78.2 Active 07/05/2016 Unknown Pain in left foot ICD-9: 729.5 ICD-10: M79.672 Active 08/24/2017 Unknown Type 2 diabetes mellitus without complications ICD-9: 250.00 ICD-10: E11.9 Active 09/20/2016 Unknown Otalgia, bilateral ICD- 9: [...] Codes Effective Dates Condition Status Encounter for screening mammogram for malignant neoplasm of breast ICD-9: V76.10 ICD-10: Z12.31 07/18/2018 Active Essential (primary) hypertension ICD-9: 401.1 ICD-10: I10 09/20/2016 Active Dysuria ICD-9: 788.1 ICD-10: R30.0 09/17/2016 Active Mixed hyperlipidemia ICD- 9: 272.2 ICD-10: E78.2 07/05/2016 Active Pain in left foot ICD-9: 729.5 ICD-10: M79.672 08/24/2017 Active Type 2 diabetes mellitus without complications ICD-9: 250.00 ICD-10: E11.9 09/20/2016 Active Otalgia, bilateral ICD- 9: 388.70 [...] Start Date Stop Date Status Fill Instructions losartan 100 mg tablet RxNorm: 797163 1 TABLET(S) PO DAILY FOR HIGH BLOOD PRESSURE 08/12/2018 No Stop Date Active alprazolam 0.5 mg tablet RxNorm: 555381 1 Tablet(s) PO TID as needed anxiety 06/30/2018 12/26/2018 Active fluticasone 50 mcg/actuation nasal spray,suspension RxNorm: 5058543 USE 1 SPRAY NASALLY TWICE A DAY 05/06/2018 No Stop Date Active clonidine HCl 0.1 mg tablet RxNorm: 514923 1 Tablet(s) PO BID 04/14/2018 04/08/2019 Active clonidine HCl 0.1 mg tablet RxNorm: 720370 1 Tablet(s) PO TID 04/12/2018 04/13/2018 Inactive Zithromax Z-Juan 250 mg tablet RxNorm: 720004 1 Tablet(s) PO UD 01/20/2018 No Stop Date Active disregard first rx for 1 - patient needs 3 packs-please dispense generic azithromycin Zithromax Z-Juan 250 mg tablet RxNorm: 371482 1 Tablet(s) PO UD 01/20/2018 01/19/2018 Inactive Zithromax Z-Juan 250 mg tablet RxNorm: 933114 1 Tablet(s) PO UD 01/20/2018 01/19/2018 Inactive disregard first rx for 1 - patient needs 3 packs Zithromax Z-Juan 250 mg tablet RxNorm: 688047 1 Tablet(s) PO UD 01/20/2018 01/19/2018 Inactive atorvastatin 10 mg tablet RxNorm: 381400 1 Tablet(s) PO QPM 12/30/2017 12/24/2018 Active atorvastatin 10 mg tablet RxNorm: 297716 1 Tablet(s) PO QPM 12/30/2017 12/29/2017 Inactive metoprolol tartrate 50 mg tablet RxNorm: 672472 1/2 Tablet(s) PO BID 12/29/2017 12/23/2018 Active clonidine HCl 0.1 mg tablet RxNorm: 765847 1 Tablet(s) PO BID 12/29/2017 04/11/2018 Inactive Lipitor 10 mg tablet RxNorm: 070632 1 Tablet(s) PO QPM 12/29/2017 12/29/2017 Inactive OKAY TO DISPENSE GENERIC alprazolam 0.5 mg tablet RxNorm: 289586 1 Tablet(s) PO TID as needed anxiety 11/18/2017 05/16/2018 Inactive glimepiride 4 mg tablet RxNorm: 972444 1 TABLET(S) PO DAILY 11/15/2017 No Stop Date Active alprazolam 0.5 mg tablet RxNorm: 876890 1 Tablet(s) PO TID as needed anxiety 09/20/2017 11/17/2017 Inactive Zithromax Z-Juan 250 mg tablet RxNorm: 019243 1 Tablet(s) PO UD 09/20/2017 12/28/2017 Inactive Zithromax Z-Juan 250 mg tablet RxNorm: 043491 1 Tablet(s) PO UD 09/14/2017 09/19/2017 Inactive amlodipine 10 mg tablet RxNorm: 257840 1 Tablet(s) PO daily 08/24/2017 08/18/2018 Active clonidine HCl 0.1 mg tablet RxNorm: 666708 1/2 Tablet(s) PO BID 08/24/2017 12/28/2017 Inactive erythromycin 5 mg/gram (0.5 %) eye ointment RxNorm: 829623 1 Gram(s) ophthalmic (eye) QID left eye cyst 08/24/2017 09/06/2017 Inactive losartan 100 mg tablet RxNorm: 808712 1 Tablet(s) PO daily for high blood pressure 08/16/2017 08/10/2018 Inactive metoprolol tartrate 50 mg tablet RxNorm: 352255 1/2 Tablet(s) PO BID 07/26/2017 12/28/2017 Inactive clonidine HCl 0.1 mg tablet RxNorm: 218250 1/2 Tablet(s) PO BID 07/26/2017 08/23/2017 Inactive metoprolol tartrate 50 mg tablet RxNorm: 508353 1 Tablet(s) PO BID 07/21/2017 07/25/2017 Inactive amlodipine 10 mg tablet RxNorm: 473676 1 TABLET(S) PO DAILY 06/29/2017 08/23/2017 Inactive Lipitor 10 mg tablet RxNorm: 943438 1 Tablet(s) PO QPM 05/27/2017 12/28/2017 Inactive OKAY TO DISPENSE GENERIC alprazolam 0.5 mg tablet RxNorm: 323440 1 Tablet(s) PO TID as needed anxiety 05/18/2017 08/15/2017 Inactive hydrochlorothiazide 12.5 mg tablet RxNorm: 433040 1 Tablet(s) PO daily 04/22/2017 05/21/2017 Inactive hydrochlorothiazide 12.5 mg tablet RxNorm: 945636 1 Tablet(s) PO daily 04/22/2017 04/21/2017 Inactive Cipro 500 mg tablet RxNorm: 352671 1 Tablet(s) PO BID 04/16/2017 04/22/2017 Inactive Zofran 4 mg tablet RxNorm: 026019 1 Tablet(s) PO BID as needed nausea and vomitting 04/15/2017 04/19/2017 Inactive Lipitor 10 mg tablet RxNorm: 515405 1 Tablet(s) PO QPM 03/30/2017 05/26/2017 Inactive OKAY TO DISPENSE GENERIC Kenalog 40 mg/mL suspension for injection RxNorm: 7041425 1 Milliliter(s) Inj 03/16/2017 03/16/2017 Inactive doxazosin 4 mg tablet RxNorm: 973533 1.5 Tablet(s) PO BID 03/16/2017 05/02/2017 Inactive prednisone 10 mg tablets in a dose pack RxNorm: 007024 Tablet(s) take dose pack as directed PO take with food 03/16/2017 05/23/2017 Inactive Kenalog 40 mg/mL suspension for injection RxNorm: 9711194 Milliliter(s) Inj 03/12/2017 03/12/2017 Inactive Zithromax Z-Juan 250 mg tablet RxNorm: 427672 1 Tablet(s) PO daily 03/11/2017 03/10/2017 Inactive zpack as directed Zithromax Z-Juan 250 mg tablet RxNorm: 932110 1 Tablet(s) PO daily 03/11/2017 03/15/2017 Inactive zpack as directed doxazosin 4 mg tablet RxNorm: 428751 1.5 Tablet(s) PO BID 02/12/2017 03/15/2017 Inactive fluticasone 50 mcg/actuation nasal spray,suspension RxNorm: 6214954 1 SPRAY NASAL BID 02/05/2017 05/05/2018 Inactive metoprolol tartrate 75 mg tablet RxNorm: 5359229 1 Tablet(s) PO BID 01/29/2017 07/19/2017 Inactive metoprolol tartrate 75 mg tablet RxNorm: 9211653 1 Tablet(s) PO BID 01/29/2017 01/28/2017 Inactive doxazosin 4 mg tablet RxNorm: 366329 1 Tablet(s) PO BID 01/20/2017 02/11/2017 Inactive pantoprazole 40 mg tablet,delayed release RxNorm: 989800 1 Tablet(s) PO daily 12/24/2016 01/19/2017 Inactive pantoprazole 40 mg tablet,delayed release RxNorm: 562790 1 Tablet(s) PO daily 12/24/2016 12/23/2016 Inactive alprazolam 0.5 mg tablet RxNorm: 440642 1 Tablet(s) PO TID as needed anxiety 12/03/2016 04/01/2017 Inactive fluticasone 50 mcg/actuation nasal spray,suspension RxNorm: 2751597 1 Trent NASAL BID 11/25/2016 12/24/2016 Inactive Dexilant 60 mg capsule, delayed release RxNorm: 145377 1 Capsule(s) PO daily 11/25/2016 11/24/2016 Inactive fluticasone 50 mcg/actuation nasal spray,suspension RxNorm: 3796309 1 Trent NASAL BID 11/25/2016 11/24/2016 Inactive fluticasone 50 mcg/actuation nasal spray,suspension RxNorm: 3896198 1 Trent NASAL BID 11/25/2016 11/24/2016 Inactive Dexilant 60 mg capsule, delayed release RxNorm: 445778 1 Capsule(s) PO daily 11/25/2016 12/23/2016 Inactive ProAir RespiClick 90 mcg/actuation breath activated RxNorm: 7651042 1 INH bid and QID as needed 11/19/2016 05/17/2017 Inactive Please send STAT Flonase Allergy Relief 50 mcg/actuation nasal spray,suspension RxNorm: 5672473 1 Trent NASAL BID 11/19/2016 11/24/2016 Inactive glimepiride 4 mg tablet RxNorm: 219945 1 Tablet(s) PO daily 11/19/2016 11/13/2017 Inactive metoprolol tartrate 50 mg tablet RxNorm: 425874 1 Tablet(s) PO BID 11/19/2016 01/28/2017 Inactive Flonase Allergy Relief 50 mcg/actuation nasal spray,suspension RxNorm: 0148097 1 Trent NASAL BID 11/17/2016 11/18/2016 Inactive metoprolol tartrate 50 mg tablet RxNorm: 555180 1 Tablet(s) PO BID 11/17/2016 11/18/2016 Inactive ProAir RespiClick 90 mcg/actuation breath activated RxNorm: 7055501 1 INH bid and QID as needed 11/17/2016 11/16/2016 Inactive glimepiride 4 mg tablet RxNorm: 235668 1 Tablet(s) PO daily 11/17/2016 11/18/2016 Inactive ProAir RespiClick 90 mcg/actuation breath activated RxNorm: 4493426 1 INH bid and QID as needed 11/17/2016 11/18/2016 Inactive Please send STAT Kenalog 40 mg/mL suspension for injection RxNorm: 6949264 1 Milliliter(s) Inj 11/05/2016 11/05/2016 Inactive azithromycin 250 mg tablet RxNorm: 662982 Tablet(s) PO 2 tabs on day #1, then daily x 4 days 11/05/2016 12/23/2016 Inactive doxazosin 4 mg tablet RxNorm: 834715 1 Tablet(s) PO QPM 10/02/2016 01/19/2017 Inactive doxazosin 4 mg tablet RxNorm: 637115 1 Tablet(s) PO QPM 09/29/2016 10/01/2016 Inactive doxazosin 4 mg tablet RxNorm: 167110 1 Tablet(s) PO QPM 09/21/2016 09/28/2016 Inactive Cipro 500 mg tablet RxNorm: 351159 1 Tablet(s) PO BID 09/18/2016 09/17/2016 Inactive Cipro 500 mg tablet RxNorm: 525717 1 Tablet(s) PO BID 09/18/2016 09/24/2016 Inactive losartan 100 mg tablet RxNorm: 671132 1 Tablet(s) PO daily for high blood pressure 09/16/2016 09/15/2016 Inactive alprazolam 0.5 mg tablet RxNorm: 609417 1 Tablet(s) PO TID as needed anxiety 09/16/2016 11/14/2016 Inactive losartan 100 mg tablet RxNorm: 269816 1 Tablet(s) PO daily for high blood pressure 09/16/2016 08/15/2017 Inactive amlodipine 10 mg tablet RxNorm: 098574 1 Tablet(s) PO daily 08/03/2016 06/28/2017 Inactive Zyrtec 10 mg tablet RxNorm: 9007371 1 Tablet(s) PO daily 08/03/2016 09/15/2016 Inactive losartan 25 mg tablet RxNorm: 067682 1 Tablet(s) PO daily 07/08/2016 09/15/2016 Inactive Lipitor 10 mg tablet RxNorm: 712300 1 Tablet(s) PO QPM 07/08/2016 07/17/2016 Inactive OKAY TO DISPENSE GENERIC Lipitor 10 mg tablet RxNorm: 714553 1 Tablet(s) PO QPM 07/06/2016 07/07/2016 Inactive OKAY TO DISPENSE GENERIC losartan 25 mg tablet RxNorm: 836772 1 Tablet(s) PO daily 07/06/2016 07/07/2016 Inactive meclizine 25 mg tablet RxNorm: 482676 1 Tablet(s) PO TID as needed No Start Date Active Parafon Forte DSC 500 mg tablet RxNorm: 665055 1 Tablet(s) PO QID No Start Date Active Pazeo 0.7 % eye drops RxNorm: 3478274 Drop(s) ophthalmic (eye) as needed dry eyes No Start Date Active Zithromax Z-Juan 250 mg tablet RxNorm: 811988 1 Tablet(s) PO UD No Start Date 09/13/2017 Inactive glimepiride 4 mg tablet RxNorm: 447225 1 Tablet(s) PO daily No Start Date 11/16/2016 Inactive metoprolol tartrate 100 mg tablet RxNorm: 511434 1 Tablet(s) PO BID No Start Date 07/21/2017 Inactive naproxen 500 mg tablet RxNorm: 481485 1 Tablet(s) PO BID No Start Date 03/23/2017 Inactive amlodipine 5 mg tablet RxNorm: 761935 1 Tablet(s) PO daily No Start Date 08/02/2016 Inactive metoprolol tartrate 50 mg tablet RxNorm: 029966 1 Tablet(s) PO BID No Start Date 11/16/2016 Inactive Medication Administered Medication Codes Instructions Start Date Status Kenalog 40 mg/mL suspension for injection RxNorm: 8123852 1Milliliter 03/16/2017 No longer Active Kenalog 40 mg/mL suspension for injection RxNorm: 7638652 Milliliter 03/12/2017 No longer Active Kenalog 40 mg/mL suspension for injection RxNorm: 8270672 1Milliliter 11/05/2016 No longer Active Immunizations Vaccine Codes Date Status Influenza CVX: 141 08/10/2017 completed Assessments Condition Codes Effective Dates Encounter for screening mammogram for malignant neoplasm of breast ICD-10: Z12.31 ICD-9: V76.10 07/18/2018 Essential (primary) hypertension ICD-10: I10 ICD-9: 401.1 04/15/2018 Pain in left foot ICD-10: M79.672 ICD-9: 729.5 04/12/2018 Type 2 diabetes mellitus without complications ICD-10: E11.9 ICD-9: 250.00 04/12/2018 Mixed hyperlipidemia ICD-10: E78.2 ICD-9: 272.2 04/12/2018 Dysuria ICD-10: R30.0 ICD-9: 788.1 04/12/2018 [...] Reason For Visit Effective Dates Notes hypertension 04/12/2018 sore throat 01/20/2018 hypertension 12/29/2017 [...] Lipid Ord30 C/HDL 2.4 Ratio 04/15/2018 %Hba1C Bho895 % HbA1c 27774- 6 6.3 % 04/15/2018 %Hba1C Dqq704 Gluc Ave 134 mg/dL 04/15/2018 Cbc With [...] 30.2 pg 04/15/2018 Cbc With Differential Ord2 [place]% 6.8 % 04/15/2018 Cbc With Differential Ord2 [...] 2.10 K/ul 04/15/2018 Cbc With Differential Ord2 [place] ABS# 0.5 K/ul 04/15/2018 Cbc With Differential Ord2 Eos ABS# 0.2 K/ul 04/15/2018 Cbc With Differential Ord2 Baso ABS# 0.0 K/ul 04/15/2018 Comp Metabolic Xuj492 NA 140 mEq/L 04/15/2018 Comp Metabolic Tsx841 K 4.3 mEq/L 04/15/2018 Comp Metabolic Skr060 CL 106 mEq/L 04/15/2018 Comp Metabolic Wad993 CO2 23.0 mEq/L 04/15/2018 Comp Metabolic Ddk914 ANION GAP 15 04/15/2018 Comp Metabolic Ytm141 GLUCOSE 90 mg/dL 04/15/2018 Comp Metabolic Smy311 Creat 1.2 mg/dL 04/15/2018 Comp Metabolic Rzs618 eGFR 45 ml/min/1.73m2 04/15/2018 Comp Metabolic Lws162 BUN 28 mg/dL 04/15/2018 Comp Metabolic Mly446 B/C Ratio 22.8 Ratio 04/15/2018 Comp Metabolic Knv342 CALCIUM 9.5 mg/dL 04/15/2018 Comp Metabolic Wmv049 ALK PHOS 95 U/L 04/15/2018 Comp Metabolic Zcr494 AST(SGOT) 20 U/L 04/15/2018 Comp Metabolic Ryi957 ALT(SGPT) 13 U/L 04/15/2018 Comp Metabolic Auz964 BILI T 0.5 mg/dL 04/15/2018 Comp Metabolic Ftn121 ALBUMIN 4.1 g/dL 04/15/2018 Comp Metabolic Orb161 TPRO 6.6 g/dL 04/15/2018 Comp Metabolic Tfi749 GLOB 2.5 g/dL 04/15/2018 Comp Metabolic Por150 A/G Ratio 1.6 Ratio 04/15/2018 Comp Metabolic Tzc060 Osmo 284 mOsmo 04/15/2018 Comp Metabolic Gnn150 NA 137 mEq/L 02/04/2018 Comp Metabolic Bjb767 K 4.0 mEq/L 02/04/2018 Comp Metabolic Dyk177 CL 104 mEq/L 02/04/2018 Comp Metabolic Rsh039 CO2 27.0 mEq/L 02/04/2018 Comp Metabolic Vsq516 ANION GAP 10 02/04/2018 Comp Metabolic Bcm670 GLUCOSE 212 mg/dL 02/04/2018 Comp Metabolic Gyt861 Creat 1.2 mg/dL 02/04/2018 Comp Metabolic Gml812 eGFR 47 ml/min/1.73m2 02/04/2018 Comp Metabolic Owc978 BUN 20 mg/dL 02/04/2018 Comp Metabolic Voa908 B/C Ratio 16.8 Ratio 02/04/2018 Comp Metabolic Zto962 CALCIUM 8.9 mg/dL 02/04/2018 Comp Metabolic Cru951 ALK PHOS 107 U/L 02/04/2018 Comp Metabolic Xhs185 AST(SGOT) 17 U/L 02/04/2018 Comp Metabolic Gpt580 ALT(SGPT) 11 U/L 02/04/2018 Comp Metabolic Zht546 BILI T 0.4 mg/dL 02/04/2018 Comp Metabolic Lxm134 ALBUMIN 3.8 g/dL 02/04/2018 Comp Metabolic Uta709 TPRO 6.2 g/dL 02/04/2018 Comp Metabolic Ffu916 GLOB 2.4 g/dL 02/04/2018 Comp Metabolic Smk800 A/G Ratio 1.6 Ratio 02/04/2018 Comp Metabolic Gmn959 Osmo 283 mOsmo 02/04/2018 %Hba1C Tkm318 % HbA1c 41849- 6 6.3 % 12/30/2017 %Hba1C Dvd561 Gluc Ave 134 mg/dL 12/30/2017 Comp Metabolic Vuy366 NA 142 mEq/L 12/30/2017 Comp Metabolic Kxh680 K 4.4 mEq/L 12/30/2017 Comp Metabolic Amz635 CL 103 mEq/L 12/30/2017 Comp Metabolic Sgc434 CO2 31.0 mEq/L 12/30/2017 Comp Metabolic Sup235 ANION GAP 12 12/30/2017 Comp Metabolic Taz947 GLUCOSE 119 mg/dL 12/30/2017 Comp Metabolic Byl465 Creat 1.4 mg/dL 12/30/2017 Comp Metabolic Tin472 eGFR 41 ml/min/1.73m2 12/30/2017 Comp Metabolic Gau889 BUN 27 mg/dL 12/30/2017 Comp Metabolic Vfb465 B/C Ratio 20.0 Ratio 12/30/2017 Comp Metabolic Kpk524 CALCIUM 9.9 mg/dL 12/30/2017 Comp Metabolic Nuv639 ALK PHOS 106 U/L 12/30/2017 Comp Metabolic Mnc975 AST(SGOT) 20 U/L 12/30/2017 Comp Metabolic Igr247 ALT(SGPT) 13 U/L 12/30/2017 Comp Metabolic Kis112 BILI T 0.7 mg/dL 12/30/2017 Comp Metabolic Eym448 ALBUMIN 4.2 g/dL 12/30/2017 Comp Metabolic Tav034 TPRO 6.7 g/dL 12/30/2017 Comp Metabolic Osh124 GLOB 2.6 g/dL 12/30/2017 Comp Metabolic Jmq423 A/G Ratio 1.6 Ratio 12/30/2017 Comp Metabolic Crr777 Osmo 289 mOsmo 12/30/2017 Lipid Ord30 CHOL 167 mg/dL 12/30/2017 Lipid Ord30 HDL 63.0 mg/dl 12/30/2017 Lipid Ord30 TRIG 89 mg/dL 12/30/2017 Lipid Ord30 LDL 86 mg/dL 12/30/2017 Lipid Ord30 C/HDL 2.7 Ratio 12/30/2017 Urine Culture Ucult Preliminary NO Growth Day 1 04/17/2017 Urine Culture Ucult Complete NO Growth Day 2 04/17/2017 Comp Metabolic Mab615 NA 143 mEq/L 04/15/2017 Comp Metabolic Mjp924 K 4.6 mEq/L 04/15/2017 Comp Metabolic Znq702 CL 110 mEq/L 04/15/2017 Comp Metabolic Mvx232 CO2 30.0 mEq/L 04/15/2017 Comp Metabolic Cie413 ANION GAP 8 04/15/2017 Comp Metabolic Jhy401 GLUCOSE 159 mg/dL 04/15/2017 Comp Metabolic Frd496 Creat 1.1 mg/dL 04/15/2017 Comp Metabolic Ugl659 eGFR 54 ml/min/1.73m2 04/15/2017 Comp Metabolic Oxb952 BUN 27 mg/dL 04/15/2017 Comp Metabolic Huo208 B/C Ratio 25.7 Ratio 04/15/2017 Comp Metabolic Qzn985 CALCIUM 9.4 mg/dL 04/15/2017 Comp Metabolic Fsm201 ALK PHOS 93 U/L 04/15/2017 Comp Metabolic Ney443 AST(SGOT) 19 U/L 04/15/2017 Comp Metabolic Gvo283 ALT(SGPT) 18 U/L 04/15/2017 Comp Metabolic Yva718 BILI T 0.6 mg/dL 04/15/2017 Comp Metabolic Rhx055 ALBUMIN 3.9 g/dL 04/15/2017 Comp Metabolic Lvf644 TPRO 6.5 g/dL 04/15/2017 Comp Metabolic Sod225 GLOB 2.6 g/dL 04/15/2017 Comp Metabolic Ysu056 A/G Ratio 1.5 Ratio 04/15/2017 Comp Metabolic Hat571 Osmo 293 mOsmo 04/15/2017 Tsh Ord6 hTSH II 2.05 uIU/mL 04/15/2017 %Hba1C Hvb169 % HbA1c 87659- 6 6.3 % 04/15/2017 %Hba1C Ffl624 Gluc Ave 134 mg/dL 04/15/2017 Cbc With [...] 22.4 % 04/15/2017 Cbc With Differential Ord2 [place]% 6.9 % 04/15/2017 Cbc With Differential Ord2 MCH 29.0 pg 04/15/2017 Cbc With Differential Ord2 Eos% 2.1 % 04/15/2017 Cbc With Differential Ord2 MCHC 33.5 pg 04/15/2017 Cbc With Differential Ord2 Baso% 0.1 % 04/15/2017 Cbc With Differential Ord2 PLT 218 K/ul 04/15/2017 Cbc With Differential Ord2 RDW 14.4 % 04/15/2017 Cbc With Differential Ord2 Neut ABS# 4.83 K/ul 04/15/2017 Cbc With Differential Ord2 Lymph ABS# 1.58 K/ul 04/15/2017 Cbc With Differential Ord2 [place] ABS# 0.5 K/ul 04/15/2017 Cbc With Differential [...] U-VOL VOLUME SUFFICIENT (10mL) 04/15/2017 Urinalysis Ord28 U-Com Culture to follow 04/15/2017 Urinalysis Ord28 U-Yeast NEGATIVE 04/15/2017 %Hba1C Tps454 % HbA1c 25150- 6 5.8 % 01/07/2017 %Hba1C Skn559 Gluc Ave 120 mg/dL 01/07/2017 Urine Culture Ucult Preliminary NO Growth Day 1 09/21/2016 Urine Culture Ucult Complete NO Growth Day 2 09/21/2016 %Hba1C Iix738 % HbA1c 07535- 6 6.0 % 09/17/2016 %Hba1C Ero316 Gluc Ave 126 mg/dL 09/17/2016 Comp Metabolic Xic335 NA 140 mEq/L 09/17/2016 Comp Metabolic Bmg475 K 4.1 mEq/L 09/17/2016 Comp Metabolic Xnl525 CL 105 mEq/L 09/17/2016 Comp Metabolic Dsk346 CO2 29.0 mEq/L 09/17/2016 Comp Metabolic Xik803 ANION GAP 10 09/17/2016 Comp Metabolic Ktk155 GLUCOSE 89 mg/dL 09/17/2016 Comp Metabolic Hmp419 Creat 0.9 mg/dL 09/17/2016 Comp Metabolic Lti373 eGFR 65 ml/min/1.73m2 09/17/2016 Comp Metabolic Wfy956 BUN 20 mg/dL 09/17/2016 Comp Metabolic Lhr489 B/C Ratio 22.2 Ratio 09/17/2016 Comp Metabolic Xcl402 CALCIUM 9.3 mg/dL 09/17/2016 Comp Metabolic Ycp908 ALK PHOS 107 U/L 09/17/2016 Comp Metabolic Ght346 AST(SGOT) 22 U/L 09/17/2016 Comp Metabolic Ytn096 ALT(SGPT) 15 U/L 09/17/2016 Comp Metabolic Vbv195 BILI T 0.7 mg/dL 09/17/2016 Comp Metabolic Jit611 ALBUMIN 4.0 g/dL 09/17/2016 Comp Metabolic Uxr772 TPRO 6.8 g/dL 09/17/2016 Comp Metabolic Fku197 GLOB 2.8 g/dL 09/17/2016 Comp Metabolic Bnc885 A/G Ratio 1.4 Ratio 09/17/2016 Comp Metabolic Kmn370 Osmo 281 mOsmo 09/17/2016 Microalbumin Wzw675 MicroAlb 44.3 mg/dL 09/17/2016 Tsh Ord6 hTSH [...] 29.0 pg 09/17/2016 Cbc With Differential Ord2 [place]% 8.1 % 09/17/2016 Cbc With Differential Ord2 [...] 1.78 K/ul 09/17/2016 Cbc With Differential Ord2 [place] ABS# 0.6 K/ul 09/17/2016 Cbc With Differential Ord2 Eos ABS# 0.2 K/ul 09/17/2016 Cbc With Differential Ord2 Baso ABS# 0.0 K/ul 09/17/2016 Lipid Ord30 CHOL 136 mg/dL 09/17/2016 Lipid Ord30 HDL 50.0 mg/dl 09/17/2016 Lipid Ord30 TRIG 70 mg/dL 09/17/2016 Lipid Ord30 LDL 72 mg/dL 09/17/2016 Lipid Ord30 C/HDL 2.7 Ratio 09/17/2016 Review of Systems System Result Effective Dates Constitutional No recent illness 04/12/2018 Constitutional No [...] Codes Date URINALYSIS NONAUTO W/O SCOPE CPT-4: 64807 12/29/2017 PPPS, SUBSEQ VISIT CPT- 4: G0439 03/30/2017 THER/PROPH/DIAG INJ SC/IM CPT-4: 42013 03/16/2017 TRIAMCINOLONE ACET INJ NOS CPT-4: J3301 03/16/2017 THER/PROPH/DIAG INJ SC/IM CPT-4: 75425 03/12/2017 TRIAMCINOLONE ACET INJ NOS CPT-4: J3301 03/12/2017 THER/PROPH/DIAG INJ SC/IM CPT-4: 44829 11/05/2016 TRIAMCINOLONE ACET INJ NOS CPT-4: J3301 11/05/2016 URINALYSIS NONAUTO W/O SCOPE CPT-4: 92028 09/18/2016 Vital Signs Date Vital 04/12/2018 Blood Pressure 1: 160/70 Code: 8480-6 BMI: 33.0 Code: 19924-2 Heart Rate 1: 82 bpm Height: 5'7" SpO2: 95% Weight: 211 lbs 01/20/2018 Blood Pressure 1: 152/66 Code: 8480-6 BMI: 31.8 Code: 56022-3 Heart Rate 1: 52 bpm Height: 5'7" SpO2: 98% Temperature: 36.3 (C) / 97.3 (F) Weight: 203 lbs 12/29/2017 Blood Pressure 1: 168/72 Code: 8480-6 BMI: 32.1 Code: 58895-8 Heart Rate 1: 63 bpm Height: 5'7" SpO2: 98% Weight: 205 lbs 08/24/2017 Blood Pressure 1: 150/70 Code: 8480-6 Blood Pressure 1: 186/70 Code: 8480-6 BMI: 31.8 Code: 48302-0 Heart Rate 1: 53 bpm Height: 5'7" SpO2: 98% Weight: 203 lbs 07/26/2017 Blood Pressure 1: 206/78 Code: 8480-6 Blood Pressure 2: 210/84 Code: 8480-6 BMI: 32.0 Code: 21701-3 Heart Rate 1: 49 bpm Height: 5'7" SpO2: 97% Weight: 204 lbs 07/20/2017 Blood Pressure 1: 148/82 Code: 8480-6 Heart Rate 1: 90 bpm SpO2: 98% 05/27/2017 Blood Pressure 1: 142/72 Code: 8480-6 BMI: 30.5 Code: 25958-3 Heart Rate 1: 97 bpm Height: 5'7" [...] 1: 148/70 Code: 8480-6 BMI: 30.4 Code: 99573-6 Heart Rate 1: 54 bpm Height: 5'7" SpO2: 97% Weight: 194 lbs 03/30/2017 BMI: 33.2 Code: 99805-0 Height: 5'7" Weight: 212 lbs 03/16/2017 Blood Pressure 1: 140/80 Code: 8480-6 BMI: 34.0 Code: 87138-6 Heart Rate 1: 70 bpm Height: 5'7" SpO2: 95% Weight: 217 lbs 03/12/2017 Blood Pressure 1: 142/80 Code: 8480-6 BMI: 34.0 Code: 26078-1 Heart Rate 1: 76 bpm Height: 5'7" SpO2: 92% Weight: 217 lbs 02/17/2017 Blood Pressure 1: 162/64 Code: 8480-6 BMI: 32.9 Code: 75079-9 Heart Rate 1: 59 bpm Height: 5'7" SpO2: 97% Weight: 210 lbs 01/20/2017 Blood Pressure 1: 162/74 Code: 8480-6 BMI: 32.9 Code: 39118-6 Heart Rate 1: 56 bpm Height: 5'7" SpO2: 98% Weight: 210 lbs 11/17/2016 Blood Pressure 1: 156/60 Code: 8480-6 BMI: 34.8 Code: 02049-0 Heart Rate 1: 63 bpm Height: 5'7" SpO2: 96% Weight: 222 lbs 11/05/2016 Blood Pressure 1: 160/68 Code: 8480-6 BMI: 34.5 Code: 60479-9 Heart Rate 1: 66 bpm Height: 5'7" SpO2: 97% Temperature: 36.9 (C) / 98.5 (F) Weight: 220 lbs 09/21/2016 Blood Pressure 1: 166/72 Code: 8480-6 Blood Pressure 1: 180/72 Code: 8480-6 BMI: 32.1 Code: 54781-6 Heart Rate 1: 57 bpm Height: 5'7" SpO2: 98% Weight: 205 lbs 09/16/2016 Blood Pressure 1: 168/70 Code: 8480-6 Heart Rate 1: 49 bpm SpO2: 95% 08/03/2016 Blood Pressure 1: 162/70 Code: 8480-6 BMI: 32.0 Code: 14527-4 Heart Rate 1: 43 bpm Height: 5'7" SpO2: 98% Weight: 204 lbs 07/06/2016 Blood Pressure 1: 170/86 Code: 8480-6 BMI: 32.0 Code: 30793-7 Heart Rate 1: 48 bpm Height: 5'7" SpO2: 97% Weight: 204 lbs Functional Status No Functional Status data History of Present Illness Symptom Name Status Result Effective Date Notes hypertension Quality primary hypertension 04/12/2018 None hypertension [...] data Encounters Encounter Performer Location Codes Date ([id number]) [id number] EST. PATIENT, LEVEL IV Diagnosis: Type 2 diabetes mellitus without complications[ICD10: E11.9] Diagnosis: Mixed hyperlipidemia[ICD10: E78.2] Diagnosis: Essential (primary) hypertension[ICD10: I10] Diagnosis: Dysuria[ICD10: R30.0] Diagnosis: Pain in left foot[ICD10: M79.672] Fifi Camejo MD, [facility] CPT- 4: 82593 04/12/2018 ([id number]) [id number] EST. PATIENT, LEVEL III Diagnosis: Otalgia, bilateral[ICD10: H92.03] Diagnosis: Other allergic rhinitis[ICD10: J30.89] Yuridia Camejo MD, [facility] CPT-4: 33950 01/20/2018 ([id number]) [id number] EST. PATIENT, LEVEL IV Diagnosis: Type 2 diabetes mellitus without complications[ICD10: E11.9] Diagnosis: Mixed hyperlipidemia[ICD10: E78.2] Diagnosis: Essential (primary) hypertension[ICD10: I10] Diagnosis: Dysuria[ICD10: R30.0] [facility], [facility] [facility] CPT[facility] 09126 12/29/2017 ([id number]) 27665 EST. PATIENT, LEVEL IV Diagnosis: Essential (primary) hypertension[ICD10: I10] Diagnosis: Cysts of left upper eyelid[ICD10: H02.824] Diagnosis: Pain in left foot[ICD10: M79.672] Fifi Camejo MD, [facility] CPT- 4: 08965 08/24/2017 ([id number]) 95330 EST. PATIENT, LEVEL III Diagnosis: Essential (primary) hypertension[ICD10: I10] Fifi Camejo MD, [facility] CPT-4: 87420 07/26/2017 ([id number]) Miscellaneous no charge Diagnosis: Essential (primary) hypertension[ICD10: I10] Fifi Camejo MD, [facility] CPT-4: 38876 07/20/2017 73959 EST. PATIENT, LEVEL III Diagnosis: Otalgia, bilateral[ICD10: H92.03] Diagnosis: Dizziness and giddiness[ICD10: R42] Diagnosis: Mixed hyperlipidemia[ICD10: E78.2] Krysta Camejo MD, [facility] CPT-4: 21123 05/27/2017 ([id number]) Miscellaneous no charge Diagnosis: Essential (primary) hypertension[ICD10: I10] Krysta Camejo MD, [facility] CPT-4: 67633 05/07/2017 ([id number]) 38362 EST. PATIENT, LEVEL IV Diagnosis: Otalgia, bilateral[ICD10: H92.03] Diagnosis: Dizziness and giddiness[ICD10: R42] Diagnosis: Orthostatic hypotension[ICD10: I95.1] Fifi Camejo MD, [facility] CPT-4: 40704 05/03/2017 [id number] EST. PATIENT, LEVEL IV Diagnosis: Essential (primary) hypertension[ICD10: I10] Diagnosis: Type 2 diabetes mellitus without complications[ICD10: E11.9] Diagnosis: Gastro-esophageal reflux disease without esophagitis[ICD10: K21.9] Diagnosis: Dizziness and giddiness[ICD10: R42] Diagnosis: Dysuria[ICD10: R30.0] Diagnosis: Other malaise[ICD10: R53.81] Krysta Camejo MD, [facility] CPT-4: 47671 04/15/2017 ([id number]) 42680 EST. PATIENT, LEVEL IV Diagnosis: Type 2 diabetes mellitus without complications[ICD10: E11.9] Diagnosis: Otalgia, bilateral[ICD10: H92.03] Diagnosis: Essential (primary) hypertension[ICD10: I10] Diagnosis: Other allergic rhinitis[ICD10: J30.89] Fifi Camejo MD, [facility] CPT-4: 55112 03/16/2017 91834 EST. PATIENT, LEVEL IV Diagnosis: Other acute sinusitis[ICD10: J01.80] Diagnosis: Acute suppurative otitis media without spontaneous rupture of ear drum, bilateral[ICD10: H66.003] Diagnosis: Other allergic rhinitis[ICD10: J30.89] Krysta Camejo MD, [facility] CPT- 4: 38342 03/12/2017 ([id number]) 00457 EST. PATIENT, LEVEL IV Diagnosis: Essential (primary) hypertension[ICD10: I10] Diagnosis: Type 2 diabetes mellitus without complications[ICD10: E11.9] Fifi Camejo MD, [facility] CPT-4: 17940 02/17/2017 ([id number]) 89978 EST. PATIENT, LEVEL IV Diagnosis: Essential (primary) hypertension[ICD10: I10] Diagnosis: Type 2 diabetes mellitus without complications[ICD10: E11.9] Fifi Camejo MD [facility] CPT-4: 70959 01/20/2017 ([id number]) 79947 EST. PATIENT, LEVEL IV Diagnosis: Essential (primary) hypertension[ICD10: I10] Diagnosis: Type 2 diabetes mellitus without complications[ICD10: E11.9] Diagnosis: Gastro-esophageal reflux disease without esophagitis[ICD10: K21.9] Fifi Camejo MD [facility] CPT-4: 70597 11/17/2016 ([id number]) 32605 EST. PATIENT, LEVEL III Diagnosis: Acute bronchitis due to other specified organisms[ICD10: J20.8] Diagnosis: Cough[ICD10: R05] Fifi Camejo MD [facility] CPT-4: 79402 11/05/2016 ([id number]) 15325 EST. PATIENT, LEVEL IV Diagnosis: Essential (primary) hypertension[ICD10: I10] Diagnosis: Type 2 diabetes mellitus without complications[ICD10: E11.9] Fifi Camejo MD [facility] CPT-4: 04265 09/21/2016 ([id number]) Miscellaneous no charge Diagnosis: Essential (primary) hypertension[ICD10: I10] Fifi Camejo MD [facility] CPT-4: 45263 09/16/2016 ([id number]) 80065 EST. PATIENT, LEVEL III Diagnosis: Type 2 diabetes mellitus without complications[ICD10: E11.9] Diagnosis: Essential (primary) hypertension[ICD10: I10] Fifi Camejo MD [facility] CPT-4: 15940 08/03/2016 ([id number]) OFFICE VISIT, NEW - LEVEL 4 Diagnosis: Essential (primary) hypertension[ICD10: I10] Diagnosis: Type 2 diabetes mellitus without complications[ICD10: E11.9] Diagnosis: Carpal tunnel syndrome, left upper limb[ICD10: G56.02] Diagnosis: Right upper quadrant pain[ICD10: R10.11] Diagnosis: Mixed hyperlipidemia[ICD10: E78.2] Fifi Camejo MD [facility] CPT- 4: 71229 07/06/2016 Plan of Care Planned Activity Notes Codes Status Date Patient Education: Patient Medication Summary Completed 07/18/2018 [...] the foot. 04/12/2018 Appointment: [id number] (15 min) Moderate 04/12/2018 Patient Education: Patient Medication Summary Completed 04/12/2018 Care Plan: Referral Order SNOMED-CT : [id number] Pending 04/12/2018 Patient Education: Patient Medication Summary [...] spray. 01/20/2018 [phone] [place] (15 min) Moderate 01/20/2018 Patient [...] controlled. 12/29/2017 Appointment: Fifi Camejo WPtel: [phone] [...] Singh 08/24/2017 Appointment[facility] [phone] [id number] [place] (15 min) Moderate 08/24/2017 Patient Education: Patient Medication Summary Completed 08/24/2017 Care Plan: Referral Order SNOMED-CT : [id number] Pending 08/24/2017 Visit Plan: Hypertension - uncontrolled [...] listed above. 07/26/2017 Appointment: [facility] [phone] [id number] (15 min) Moderate [...] medications. 05/27/2017 App[phone] [phone] (15 min) Moderate 05/27/2017 Patient Education: Patient Medication Summary Completed 05/27/2017 Appointment: Nurse Visit 05/07/2017 Patient Education: Patient Medication Summary Completed 05/07/2017 Visit Plan: Persistent vergito with bilateral air-fluid levels and ear pain. Pt was seen by Dr. Calvo- she did not like his response to her complaints. I have recommended a referral to ENT in [place] or [place]. I suspect she may need myringotomy tubes. Pt to continue with flonase. Orthostatic hypotension - dc doxazosin. Monitor blood pressures at home. stop the doxazosin meclizine change to 1/2 pill three times a day come back on Wednesday for blood pressure check 05/03/2017 Appointment: [facility] [phone] [id number] [place] (15 min) Moderate 05/03/2017 Patient Education: Patient Medication Summary Completed 05/03/2017 Appointment: [facility] [phone] [id number] [place] (15 min) [...] glucose control. 04/15/2017 App[facility]ment: [facility] Dale [facility] [phone] [id number] (30 min) Complex 04/15/2017 Patient Education: [...] surrogate. 03/30/2017 Appointment: [facility] Dale [facility] [phone] [id number] [facility] - Annual Wellness Visit 03/30/2017 [...] have a referral to dr[facility] cal[facility] after March 24 Hypertension - well controlled - continue with current medications, continue with no added salt diet. Pt has been encouraged to exercise daily. The pt has been advised to call the office if there are any acute concerns about change in blood pressure readings at home. 03/16/2017 Appointment: [facility] [phone] [id number] (30 min) Complex 03/16/2017 Patient Education: Patient Medication Summary Completed 03/16/2017 Patient Education: Obesity Completed 03/16/2017 Care Plan: Referral Order SNOMED-CT : [id number] Pending 03/16/2017 Visit Plan: Allergies - chronic [...] worsen. 03/12/2017 Appointment: [facility] Dale [facility] [phone] [phone] (15 min) Moderate 03/12/2017 Patient Education: [...] controlled. 02/17/2017 Appointment: Fifi Camejo [facility]Ptel: [phone] [facility] [facility] [...] controlled. 01/20/2017 Appointment: [facility] [phone] [id number] (30 min) Complex [...] this time. 08/03/2016 Appointment: Fifi Camejo [facility]el[id number] (15 min) Moderate 08/03/2016 Patient [...] night, call if not improving. 07/06/2016 Appointment: NellFifi WPtel[id number] New Patient 07/06/2016 [...] monitor your heart rate Consider referral for composition weatherboard installer for possible stress test if needed. Call [...] have recommended a referral to ENT in [place] or [place]. I suspect she may need myringotomy tubes. [...] monitor your heart rate Consider referral for composition weatherboard installer for possible stress test if needed. Call [...] - recommended referral to Dr. Anders in [place]
--- OUTSIDE RECORDS SUMMARY | 2019-03-08 17:33 | XMS REPORT | CCD ---
Author Author Fifi Camejo Organization Fifi Camejo MD, [facility] Address [address] [place] [address] Phone Care Team Providers Care Milling Supervisor Name Role Phone PP Unavailable CCM Unavailable Summary Purpose Interface Exchange Insurance Providers Payer name Policy type / Coverage type Covered libertarian ID Effective Begin Date Effective End Date WPS Medicare Part B Medicare Part B [id number] Unknown Unknown FOR LIFE WPS Medicare Part B [id number] Unknown Unknown Family history Father Diagnosis Age At Onset Cancer Unknown Brother Diagnosis Age At Onset Diabetes mellitus Type 2 Unknown Heart Attack Unknown Social History Social History Element Codes Description Effective Dates Marital status Unknown Wu 11/05/2016 Number of children Unknown 1 07/06/2016 Employment Unknown Retired 07/06/[address]: 672312419 Never smoker 07/06/[address]: 958990226 Never drinks alcohol 07/06/2016 Allergies, Adverse Reactions, Alerts Substance Reaction Codes Entered Date Inactivated Date Status 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 Unknown 01/20/2017 No Inactive Date Active Past Medical History Illness Codes Condition Status Onset Date Resolved Date Cysts of left upper eyelid ICD-9: 374.84 ICD-10: H02.824 Active 08/24/2017 Unknown Essential (primary) hypertension ICD-9: 401.1 ICD-10: I10 Active 09/20/2016 Unknown Pain in left foot ICD-9: 729.5 ICD-10: M79.672 Active 08/24/2017 Unknown Dizziness and giddiness ICD-9: 780.4 ICD-10: R42 Active 04/15/2017 Unknown Mixed hyperlipidemia ICD- 9: 272.2 ICD-10: E78.2 Active 07/05/2016 Unknown Orthostatic hypotension ICD-9: 458.0 ICD-10: I95.1 Active 05/03/2017 Unknown Otalgia, bilateral ICD- 9: 388.70 ICD-10: H92.03 Active 03/16/2017 Unknown Dysuria ICD-9: 788.1 ICD-10: R30.0 Active 09/17/2016 Unknown Gastro-esophageal reflux disease without esophagitis ICD-9: 530.81 ICD-10: K21.9 Active 11/17/2016 Unknown Other malaise ICD-9: 780.79 ICD-10: R53.81 Active 04/15/2017 Unknown Type 2 diabetes mellitus without complications ICD-9: 250.00 ICD-10: E11.9 Active 09/20/2016 Unknown Encounter for general adult medical examination with abnormal findings ICD-9: V70.0 ICD-10: Z00.01 Active 03/30/2017 Unknown Other allergic rhinitis ICD-9: 477.8 ICD-10: [...] Problems Condition Codes Effective Dates Condition Status Cysts of left upper eyelid ICD-9: 374.84 ICD-10: H02.824 08/24/2017 Active Essential (primary) hypertension ICD-9: 401.1 ICD-10: I10 09/20/2016 Active Pain in left foot ICD-9: 729.5 ICD-10: M79.672 08/24/2017 Active Dizziness and giddiness ICD-9: 780.4 ICD-10: R42 04/15/2017 Active Mixed hyperlipidemia ICD- 9: 272.2 ICD-10: E78.2 07/05/2016 Active Orthostatic hypotension ICD-9: 458.0 ICD-10: I95.1 05/03/2017 Active Otalgia, bilateral ICD- 9: 388.70 ICD-10: H92.03 03/16/2017 Active Dysuria ICD-9: 788.1 ICD-10: R30.0 09/17/2016 Active Gastro-esophageal reflux disease without esophagitis ICD-9: 530.81 ICD-10: K21.9 11/17/2016 Active Other malaise ICD-9: 780.79 ICD-10: R53.81 04/15/2017 Active Type 2 diabetes mellitus without complications ICD-9: 250.00 ICD-10: E11.9 09/20/2016 Active Encounter for general adult medical examination with abnormal findings ICD-9: V70.0 ICD-10: Z00.01 03/30/2017 Active Other allergic rhinitis ICD-9: 477.8 ICD-10: [...] Start Date Stop Date Status Fill Instructions alprazolam 0.5 mg tablet RxNorm: 630237 1 Tablet(s) PO TID as needed anxiety 11/18/2017 05/16/2018 Active glimepiride 4 mg tablet RxNorm: 095700 1 TABLET(S) PO DAILY 11/15/2017 No Stop Date Active Zithromax Z-Juan 250 mg tablet RxNorm: 077669 1 Tablet(s) PO UD 09/20/2017 No Stop Date Active alprazolam 0.5 mg tablet RxNorm: 784934 1 Tablet(s) PO TID as needed anxiety 09/20/2017 11/17/2017 Inactive Zithromax Z-Juan 250 mg tablet RxNorm: 317426 1 Tablet(s) PO UD 09/14/2017 09/19/2017 Inactive clonidine HCl 0.1 mg tablet RxNorm: 352363 1/2 Tablet(s) PO BID 08/24/2017 08/18/2018 Active amlodipine 10 mg tablet RxNorm: 125719 1 Tablet(s) PO daily 08/24/2017 08/18/2018 Active erythromycin 5 mg/gram (0.5 %) eye ointment RxNorm: 076442 1 Gram(s) ophthalmic (eye) QID left eye cyst 08/24/2017 09/06/2017 Inactive losartan 100 mg tablet RxNorm: 797832 1 Tablet(s) PO daily for high blood pressure 08/16/2017 08/10/2018 Active metoprolol tartrate 50 mg tablet RxNorm: 230476 1/2 Tablet(s) PO BID 07/26/2017 07/20/2018 Active clonidine HCl 0.1 mg tablet RxNorm: 880597 1/2 Tablet(s) PO BID 07/26/2017 08/23/2017 Inactive metoprolol tartrate 50 mg tablet RxNorm: 396642 1 Tablet(s) PO BID 07/21/2017 07/25/2017 Inactive amlodipine 10 mg tablet RxNorm: 998572 1 TABLET(S) PO DAILY 06/29/2017 08/23/2017 Inactive Lipitor 10 mg tablet RxNorm: 566292 1 Tablet(s) PO QPM 05/27/2017 02/20/2018 Active OKAY TO DISPENSE GENERIC alprazolam 0.5 mg tablet RxNorm: 424960 1 Tablet(s) PO TID as needed anxiety 05/18/2017 08/15/2017 Inactive hydrochlorothiazide 12.5 mg tablet RxNorm: 016487 1 Tablet(s) PO daily 04/22/2017 05/21/2017 Inactive hydrochlorothiazide 12.5 mg tablet RxNorm: 382627 1 Tablet(s) PO daily 04/22/2017 04/21/2017 Inactive Cipro 500 mg tablet RxNorm: 794039 1 Tablet(s) PO BID 04/16/2017 04/22/2017 Inactive Zofran 4 mg tablet RxNorm: 058811 1 Tablet(s) PO BID as needed nausea and vomitting 04/15/2017 04/19/2017 Inactive Lipitor 10 mg tablet RxNorm: 664916 1 Tablet(s) PO QPM 03/30/2017 05/26/2017 Inactive OKAY TO DISPENSE GENERIC Kenalog 40 mg/mL suspension for injection RxNorm: 4115633 1 Milliliter(s) Inj 03/16/2017 03/16/2017 Inactive doxazosin 4 mg tablet RxNorm: 823317 1.5 Tablet(s) PO BID 03/16/2017 05/02/2017 Inactive prednisone 10 mg tablets in a dose pack RxNorm: 119306 Tablet(s) take dose pack as directed PO take with food 03/16/2017 05/23/2017 Inactive Kenalog 40 mg/mL suspension for injection RxNorm: 9250940 Milliliter(s) Inj 03/12/2017 03/12/2017 Inactive Zithromax Z-Juan 250 mg tablet RxNorm: 560521 1 Tablet(s) PO daily 03/11/2017 03/10/2017 Inactive zpack as directed Zithromax Z-Juna 250 mg tablet RxNorm: 942524 1 Tablet(s) PO daily 03/11/2017 03/15/2017 Inactive zpack as directed doxazosin 4 mg tablet RxNorm: 585729 1.5 Tablet(s) PO BID 02/12/2017 03/15/2017 Inactive fluticasone 50 mcg/actuation nasal spray,suspension RxNorm: 3376233 1 SPRAY NASAL BID 02/05/2017 No Stop Date Active metoprolol tartrate 75 mg tablet RxNorm: 6907341 1 Tablet(s) PO BID 01/29/2017 07/19/2017 Inactive metoprolol tartrate 75 mg tablet RxNorm: 5656803 1 Tablet(s) PO BID 01/29/2017 01/28/2017 Inactive doxazosin 4 mg tablet RxNorm: 921865 1 Tablet(s) PO BID 01/20/2017 02/11/2017 Inactive pantoprazole 40 mg tablet,delayed release RxNorm: 337920 1 Tablet(s) PO daily 12/24/2016 01/19/2017 Inactive pantoprazole 40 mg tablet,delayed release RxNorm: 192700 1 Tablet(s) PO daily 12/24/2016 12/23/2016 Inactive alprazolam 0.5 mg tablet RxNorm: 327652 1 Tablet(s) PO TID as needed anxiety 12/03/2016 04/01/2017 Inactive fluticasone 50 mcg/actuation nasal spray,suspension RxNorm: 3424693 1 [place] NASAL BID 11/25/2016 12/24/2016 Inactive Dexilant 60 mg capsule, delayed release RxNorm: 454993 1 Capsule(s) PO daily 11/25/2016 11/24/2016 Inactive fluticasone 50 mcg/actuation nasal spray,suspension RxNorm: 1464112 1 [place] NASAL BID 11/25/2016 11/24/2016 Inactive fluticasone 50 mcg/actuation nasal spray,suspension RxNorm: 6953721 1 [place] NASAL BID 11/25/2016 11/24/2016 Inactive Dexilant 60 mg capsule, delayed release RxNorm: 580604 1 Capsule(s) PO daily 11/25/2016 12/23/2016 Inactive ProAir RespiClick 90 mcg/actuation breath activated RxNorm: 0200027 1 INH bid and QID as needed 11/19/2016 05/17/2017 Inactive Please send STAT Flonase Allergy Relief 50 mcg/actuation nasal spray,suspension RxNorm: 1322412 1 [place] NASAL BID 11/19/2016 11/24/2016 Inactive glimepiride 4 mg tablet RxNorm: 264432 1 Tablet(s) PO daily 11/19/2016 11/13/2017 Inactive metoprolol tartrate 50 mg tablet RxNorm: 998070 1 Tablet(s) PO BID 11/19/2016 01/28/2017 Inactive Flonase Allergy Relief 50 mcg/actuation nasal spray,suspension RxNorm: 5983956 1 [place] NASAL BID 11/17/2016 11/18/2016 Inactive metoprolol tartrate 50 mg tablet RxNorm: 869667 1 Tablet(s) PO BID 11/17/2016 11/18/2016 Inactive ProAir RespiClick 90 mcg/actuation breath activated RxNorm: 0551280 1 INH bid and QID as needed 11/17/2016 11/16/2016 Inactive glimepiride 4 mg tablet RxNorm: 618134 1 Tablet(s) PO daily 11/17/2016 11/18/2016 Inactive ProAir RespiClick 90 mcg/actuation breath activated RxNorm: 1752197 1 INH bid and QID as needed 11/17/2016 11/18/2016 Inactive Please send STAT Kenalog 40 mg/mL suspension for injection RxNorm: 8402321 1 Milliliter(s) Inj 11/05/2016 11/05/2016 Inactive azithromycin 250 mg tablet RxNorm: 672557 Tablet(s) PO 2 tabs on day #1, then daily x 4 days 11/05/2016 12/23/2016 Inactive doxazosin 4 mg tablet RxNorm: 070989 1 Tablet(s) PO QPM 10/02/2016 01/19/2017 Inactive doxazosin 4 mg tablet RxNorm: 059767 1 Tablet(s) PO QPM 09/29/2016 10/01/2016 Inactive doxazosin 4 mg tablet RxNorm: 077858 1 Tablet(s) PO QPM 09/21/2016 09/28/2016 Inactive Cipro 500 mg tablet RxNorm: 214423 1 Tablet(s) PO BID 09/18/2016 09/17/2016 Inactive Cipro 500 mg tablet RxNorm: 422804 1 Tablet(s) PO BID 09/18/2016 09/24/2016 Inactive losartan 100 mg tablet RxNorm: 569940 1 Tablet(s) PO daily for high blood pressure 09/16/2016 09/15/2016 Inactive alprazolam 0.5 mg tablet RxNorm: 255980 1 Tablet(s) PO TID as needed anxiety 09/16/2016 11/14/2016 Inactive losartan 100 mg tablet RxNorm: 579421 1 Tablet(s) PO daily for high blood pressure 09/16/2016 08/15/2017 Inactive amlodipine 10 mg tablet RxNorm: 588790 1 Tablet(s) PO daily 08/03/2016 06/28/2017 Inactive Zyrtec 10 mg tablet RxNorm: 5692566 1 Tablet(s) PO daily 08/03/2016 09/15/2016 Inactive losartan 25 mg tablet RxNorm: 640173 1 Tablet(s) PO daily 07/08/2016 09/15/2016 Inactive Lipitor 10 mg tablet RxNorm: 348447 1 Tablet(s) PO QPM 07/08/2016 07/17/2016 Inactive OKAY TO DISPENSE GENERIC Lipitor 10 mg tablet RxNorm: 664077 1 Tablet(s) PO QPM 07/06/2016 07/07/2016 Inactive OKAY TO DISPENSE GENERIC losartan 25 mg tablet RxNorm: 462413 1 Tablet(s) PO daily 07/06/2016 07/07/2016 Inactive meclizine 25 mg tablet RxNorm: 612704 1 Tablet(s) PO TID as needed No Start Date Active Parafon Forte DSC 500 mg tablet RxNorm: 528445 1 Tablet(s) PO QID No Start Date Active Zithromax Z-Juan 250 mg tablet RxNorm: 256883 1 Tablet(s) PO UD No Start Date 09/13/2017 Inactive glimepiride 4 mg tablet RxNorm: 327912 1 Tablet(s) PO daily No Start Date 11/16/2016 Inactive metoprolol tartrate 100 mg tablet RxNorm: 304360 1 Tablet(s) PO BID No Start Date 07/21/2017 Inactive naproxen 500 mg tablet RxNorm: 273410 1 Tablet(s) PO BID No Start Date 03/23/2017 Inactive amlodipine 5 mg tablet RxNorm: 235989 1 Tablet(s) PO daily No Start Date 08/02/2016 Inactive metoprolol tartrate 50 mg tablet RxNorm: 272889 1 Tablet(s) PO BID No Start Date 11/16/2016 Inactive Medication Administered Medication Codes Instructions Start Date Status Kenalog 40 mg/mL suspension for injection RxNorm: 3559638 1Milliliter 03/16/2017 No longer Active Kenalog 40 mg/mL suspension for injection RxNorm: 2642061 Milliliter 03/12/2017 No longer Active Kenalog 40 mg/mL suspension for injection RxNorm: 7739012 1Milliliter 11/05/2016 No longer Active Immunizations Vaccine Codes Date Status Influenza CVX: 141 08/10/2017 completed Assessments Condition Codes Effective Dates Essential (primary) hypertension ICD-10: I10 ICD-9: 401.1 08/24/2017 Pain in left foot ICD-10: M79.672 ICD-9: 729.5 08/24/2017 Cysts of left upper eyelid ICD-10: H02.824 ICD-9: 374.84 08/24/2017 Mixed hyperlipidemia ICD-10: E78.2 ICD-9: 272.2 05/27/2017 Dizziness and giddiness ICD-10: R42 ICD-9: 780.4 05/27/2017 Otalgia, bilateral ICD-10: H92.03 ICD-9: 388.70 05/27/2017 Orthostatic hypotension ICD-10: I95.1 ICD-9: 458.0 05/03/2017 Type 2 diabetes mellitus without complications ICD-10: E11.9 ICD-9: 250.00 04/15/2017 Other malaise ICD-10: R53.81 ICD-9: 780.79 04/15/2017 Gastro-esophageal reflux disease without esophagitis ICD-10: K21.9 ICD-9: 530.81 04/15/2017 Dysuria ICD-10: R30.0 ICD-9: 788.1 04/15/2017 Encounter for general adult medical examination with abnormal findings ICD-10: Z00.01 ICD-9: V70.0 03/30/2017 Other allergic rhinitis ICD-10: J30.89 ICD-9: 477.8 [...] Reason For Visit Effective Dates Notes hypertension 08/24/2017 hypertension 07/26/2017 earache 05/27/2017 vertigo 05/03/2017 fatigue 04/15/2017 Annual Medicare Wellness Exam 03/30/2017 earache 03/16/2017 sinus congestion 03/12/2017 hypertension 02/17/2017 hypertension 01/20/2017 cough 11/17/2016 cough 11/05/2016 hypertension 09/21/2016 hypertension 08/03/2016 hypertension 07/06/2016 Results Observation Observation Code Item Item Code Result Date Urine Culture Ucult Complete NO Growth Day 2 04/17/2017 Urine Culture Ucult Preliminary NO Growth Day 1 04/17/2017 Comp Metabolic Nmd931 NA 143 mEq/L 04/15/2017 Comp Metabolic Izk285 K 4.6 mEq/L 04/15/2017 Comp Metabolic Jmk697 CL 110 mEq/L 04/15/2017 Comp Metabolic Hpi804 CO2 30.0 mEq/L 04/15/2017 Comp Metabolic Tte851 ANION GAP 8 04/15/2017 Comp Metabolic Oid298 GLUCOSE 159 mg/dL 04/15/2017 Comp Metabolic Yoo950 Creat 1.1 mg/dL 04/15/2017 Comp Metabolic Pbs320 eGFR 54 ml/min/1.73m2 04/15/2017 Comp Metabolic Yiu605 BUN 27 mg/dL 04/15/2017 Comp Metabolic Cvk403 B/C Ratio 25.7 Ratio 04/15/2017 Comp Metabolic Eut847 CALCIUM 9.4 mg/dL 04/15/2017 Comp Metabolic Sci361 ALK PHOS 93 U/L 04/15/2017 Comp Metabolic Zjc436 AST(SGOT) 19 U/L 04/15/2017 Comp Metabolic Zai178 ALT(SGPT) 18 U/L 04/15/2017 Comp Metabolic Qtk262 BILI T 0.6 mg/dL 04/15/2017 Comp Metabolic Zgg075 ALBUMIN 3.9 g/dL 04/15/2017 Comp Metabolic Wtg572 TPRO 6.5 g/dL 04/15/2017 Comp Metabolic Rtr912 GLOB 2.6 g/dL 04/15/2017 Comp Metabolic Wip633 A/G Ratio 1.5 Ratio 04/15/2017 Comp Metabolic Ubg941 Osmo 293 mOsmo 04/15/2017 Tsh Ord6 hTSH II 2.05 uIU/mL 04/15/2017 %Hba1C Yvl060 % HbA1c 61268- 6 6.3 % 04/15/2017 %Hba1C Htb335 Gluc Ave 134 mg/dL 04/15/2017 Cbc With [...] 22.4 % 04/15/2017 Cbc With Differential Ord2 [place]% 6.9 % 04/15/2017 Cbc With Differential Ord2 MCH 29.0 pg 04/15/2017 Cbc With Differential Ord2 MCHC 33.5 pg 04/15/2017 Cbc With Differential Ord2 Eos% 2.1 % 04/15/2017 Cbc With Differential Ord2 Baso% 0.1 % 04/15/2017 Cbc With Differential Ord2 PLT 218 K/ul 04/15/2017 Cbc With Differential Ord2 Neut ABS# 4.83 K/ul 04/15/2017 Cbc With Differential Ord2 RDW 14.4 % 04/15/2017 Cbc With Differential Ord2 Lymph ABS# 1.58 K/ul 04/15/2017 Cbc With Differential Ord2 [place] ABS# 0.5 K/ul 04/15/2017 Cbc With Differential [...] Ord28 U-Com Culture to follow 04/15/2017 %Hba1C Lau751 % HbA1c 44302- 6 5.8 % 01/07/2017 %Hba1C Uyl511 Gluc Ave 120 mg/dL 01/07/2017 Urine Culture Ucult Preliminary NO Growth Day 1 09/21/2016 Urine Culture Ucult Complete NO Growth Day 2 09/21/2016 %Hba1C Kdu331 % HbA1c 12384- 6 6.0 % 09/17/2016 %Hba1C Olc230 Gluc Ave 126 mg/dL 09/17/2016 Comp Metabolic Hjx806 NA 140 mEq/L 09/17/2016 Comp Metabolic Uxm589 K 4.1 mEq/L 09/17/2016 Comp Metabolic Hmt884 CL 105 mEq/L 09/17/2016 Comp Metabolic Mdr750 CO2 29.0 mEq/L 09/17/2016 Comp Metabolic Gdn541 ANION GAP 10 09/17/2016 Comp Metabolic Ssf916 GLUCOSE 89 mg/dL 09/17/2016 Comp Metabolic Bgt444 Creat 0.9 mg/dL 09/17/2016 Comp Metabolic Ubn192 eGFR 65 ml/min/1.73m2 09/17/2016 Comp Metabolic Wfe944 BUN 20 mg/dL 09/17/2016 Comp Metabolic Ril426 B/C Ratio 22.2 Ratio 09/17/2016 Comp Metabolic Yii189 CALCIUM 9.3 mg/dL 09/17/2016 Comp Metabolic Ltc006 ALK PHOS 107 U/L 09/17/2016 Comp Metabolic Aiz233 AST(SGOT) 22 U/L 09/17/2016 Comp Metabolic Lnb635 ALT(SGPT) 15 U/L 09/17/2016 Comp Metabolic Qte781 BILI T 0.7 mg/dL 09/17/2016 Comp Metabolic Xal127 ALBUMIN 4.0 g/dL 09/17/2016 Comp Metabolic Dzm788 TPRO 6.8 g/dL 09/17/2016 Comp Metabolic Kpz392 GLOB 2.8 g/dL 09/17/2016 Comp Metabolic Fpb546 A/G Ratio 1.4 Ratio 09/17/2016 Comp Metabolic Lzb976 Osmo 281 mOsmo 09/17/2016 Microalbumin Ofp934 MicroAlb 44.3 mg/dL 09/17/2016 Tsh Ord6 hTSH II 4.66 uIU/mL 09/17/2016 Cbc With Differential Ord2 WBC 6.95 K/ul 09/17/2016 Cbc With Differential Ord2 RBC 4.65 M/ul 09/17/2016 Cbc With Differential Ord2 HGB 13.5 g/dl 09/17/2016 Cbc With Differential Ord2 Neut% 62.4 % 09/17/2016 Cbc With Differential Ord2 HCT 40.5 % 09/17/2016 Cbc With Differential Ord2 Lymph% 25.6 % 09/17/2016 Cbc With Differential Ord2 MCV 87.1 fl 09/17/2016 Cbc With Differential Ord2 [place]% 8.1 % 09/17/2016 Cbc With Differential Ord2 [...] 1.78 K/ul 09/17/2016 Cbc With Differential Ord2 [place] ABS# 0.6 K/ul 09/17/2016 Cbc With Differential Ord2 Eos ABS# 0.2 K/ul 09/17/2016 Cbc With Differential Ord2 Baso ABS# 0.0 K/ul 09/17/2016 Lipid Ord30 CHOL 136 mg/dL 09/17/2016 Lipid Ord30 HDL 50.0 mg/dl 09/17/2016 Lipid Ord30 TRIG 70 mg/dL 09/17/2016 Lipid Ord30 LDL 72 mg/dL 09/17/2016 Lipid Ord30 C/HDL 2.7 Ratio 09/17/2016 Review of Systems System Result Effective Dates Constitutional No recent illness 08/24/2017 Constitutional No [...] Date PPPS, SUBSEQ VISIT CPT- 4: G0439 03/30/2017 THER/PROPH/DIAG INJ SC/IM CPT-4: 83321 03/16/2017 TRIAMCINOLONE ACET INJ NOS CPT-4: J3301 03/16/2017 THER/PROPH/DIAG INJ SC/IM CPT-4: 49798 03/12/2017 TRIAMCINOLONE ACET INJ NOS CPT-4: J3301 03/12/2017 THER/PROPH/DIAG INJ SC/IM CPT-4: 55852 11/05/2016 TRIAMCINOLONE ACET INJ NOS CPT-4: J3301 11/05/2016 URINALYSIS NONAUTO W/O SCOPE CPT-4: 88842 09/18/2016 Vital Signs Date Vital 08/24/2017 Blood Pressure 1: 150/70 Code: 8480-6 Blood Pressure 1: 186/70 Code: 8480-6 BMI: 31.8 Code: 29839-4 Heart Rate 1: 53 bpm Height: 5'7" SpO2: 98% Weight: 203 lbs 07/26/2017 Blood Pressure 1: 206/78 Code: 8480-6 Blood Pressure 2: 210/84 Code: 8480-6 BMI: 32.0 Code: 66199-2 Heart Rate 1: 49 bpm Height: 5'7" SpO2: 97% Weight: 204 lbs 07/20/2017 Blood Pressure 1: 148/82 Code: 8480-6 Heart Rate 1: 90 bpm SpO2: 98% 05/27/2017 Blood Pressure 1: 142/72 Code: 8480-6 BMI: 30.5 Code: 34486-9 Heart Rate 1: 97 bpm Height: 5'7" [...] 1: 148/70 Code: 8480-6 BMI: 30.4 Code: 42463-7 Heart Rate 1: 54 bpm Height: 5'7" SpO2: 97% Weight: 194 lbs 03/30/2017 BMI: 33.2 Code: 93643-3 Height: 5'7" Weight: 212 lbs 03/16/2017 Blood Pressure 1: 140/80 Code: 8480-6 BMI: 34.0 Code: 56095-8 Heart Rate 1: 70 bpm Height: 5'7" SpO2: 95% Weight: 217 lbs 03/12/2017 Blood Pressure 1: 142/80 Code: 8480-6 BMI: 34.0 Code: 12457-5 Heart Rate 1: 76 bpm Height: 5'7" SpO2: 92% Weight: 217 lbs 02/17/2017 Blood Pressure 1: 162/64 Code: 8480-6 BMI: 32.9 Code: 05709-9 Heart Rate 1: 59 bpm Height: 5'7" SpO2: 97% Weight: 210 lbs 01/20/2017 Blood Pressure 1: 162/74 Code: 8480-6 BMI: 32.9 Code: 98065-6 Heart Rate 1: 56 bpm Height: 5'7" SpO2: 98% Weight: 210 lbs 11/17/2016 Blood Pressure 1: 156/60 Code: 8480-6 BMI: 34.8 Code: 04613-8 Heart Rate 1: 63 bpm Height: 5'7" SpO2: 96% Weight: 222 lbs 11/05/2016 Blood Pressure 1: 160/68 Code: 8480-6 BMI: 34.5 Code: 87267-3 Heart Rate 1: 66 bpm Height: 5'7" SpO2: 97% Temperature: 36.9 (C) / 98.5 (F) Weight: 220 lbs 09/21/2016 Blood Pressure 1: 166/72 Code: 8480-6 Blood Pressure 1: 180/72 Code: 8480-6 BMI: 32.1 Code: 44056-5 Heart Rate 1: 57 bpm Height: 5'7" SpO2: 98% Weight: 205 lbs 09/16/2016 Blood Pressure 1: 168/70 Code: 8480-6 Heart Rate 1: 49 bpm SpO2: 95% 08/03/2016 Blood Pressure 1: 162/70 Code: 8480-6 BMI: 32.0 Code: 22392-3 Heart Rate 1: 43 bpm Height: 5'7" SpO2: 98% Weight: 204 lbs 07/06/2016 Blood Pressure 1: 170/86 Code: 8480-6 BMI: 32.0 Code: 42737-6 Heart Rate 1: 48 bpm Height: 5'7" SpO2: 97% Weight: 204 lbs Functional Status No Functional Status data History of Present Illness Symptom Name Status Result Effective Date Notes hypertension Quality primary hypertension 08/24/2017 None hypertension [...] data Encounters Encounter Performer Location Codes Date ( 41291 EST. PATIENT, LEVEL IV Diagnosis: Essential (primary) hypertension[ICD10: I10] Diagnosis: Cysts of left upper eyelid[ICD10: H02.824] Diagnosis: Pain in left foot[ICD10: M79.672] Fifi Camejo MD, [facility] CPT- 4: 77254 08/24/2017 ([id number]) 85868 EST. PATIENT, LEVEL III Diagnosis: Essential (primary) hypertension[ICD10: I10] Fifi Camejo MD, [facility] CPT-4: 90671 07/26/2017 ([id number]) Miscellaneous no charge Diagnosis: Essential (primary) hypertension[ICD10: I10] Fifi Camejo MD, [facility] CPT-4: 99817 07/20/2017 26939 EST. PATIENT, LEVEL III Diagnosis: Otalgia, bilateral[ICD10: H92.03] Diagnosis: Dizziness and giddiness[ICD10: R42] Diagnosis: Mixed hyperlipidemia[ICD10: E78.2] Krysta Camejo MD, [facility] CPT-4: 03895 05/27/2017 ([id number]) Miscellaneous no charge Diagnosis: Essential (primary) hypertension[ICD10: I10] Krysta Camejo MD, [facility] CPT-4: 34211 05/07/2017 ([id number]) 49752 EST. PATIENT, LEVEL IV Diagnosis: Otalgia, bilateral[ICD10: H92.03] Diagnosis: Dizziness and giddiness[ICD10: R42] Diagnosis: Orthostatic hypotension[ICD10: I95.1] Fifi Camejo MD, [facility] CPT-4: 81064 05/03/2017 08249 EST. PATIENT, LEVEL IV Diagnosis: Essential (primary) hypertension[ICD10: I10] Diagnosis: Type 2 diabetes mellitus without complications[ICD10: E11.9] Diagnosis: Gastro-esophageal reflux disease without esophagitis[ICD10: K21.9] Diagnosis: Dizziness and giddiness[ICD10: R42] Diagnosis: Dysuria[ICD10: R30.0] Diagnosis: Other malaise[ICD10: R53.81] Krysta Camejo MD, [facility] CPT-4: 46018 04/15/2017 ([id number]) 77753 EST. PATIENT, LEVEL IV Diagnosis: Type 2 diabetes mellitus without complications[ICD10: E11.9] Diagnosis: Otalgia, bilateral[ICD10: H92.03] Diagnosis: Essential (primary) hypertension[ICD10: I10] Diagnosis: Other allergic rhinitis[ICD10: J30.89] Fifi Camejo MD, [facility] CPT-4: 91929 03/16/2017 [id number] EST. PATIENT, LEVEL IV Diagnosis: Other acute sinusitis[ICD10: J01.80] Diagnosis: Acute suppurative otitis media without spontaneous rupture of ear drum, bilateral[ICD10: H66.003] Diagnosis: Other allergic rhinitis[ICD10: J30.89] Krysta Camejo MD, [facility] CPT- 4: 25352 03/12/2017 ([id number]) 24173 EST. PATIENT, LEVEL IV Diagnosis: Essential (primary) hypertension[ICD10: I10] Diagnosis: Type 2 diabetes mellitus without complications[ICD10: E11.9] Fifi Camejo MD [facility] CPT-4: 44453 02/17/2017 ([id number]) 21517 EST. PATIENT, LEVEL IV Diagnosis: Essential (primary) hypertension[ICD10: I10] Diagnosis: Type 2 diabetes mellitus without complications[ICD10: E11.9] Fifi Camejo MD, [facility] CPT-4: 22309 01/20/2017 ([id number]) 27263 EST. PATIENT, LEVEL IV Diagnosis: Essential (primary) hypertension[ICD10: I10] Diagnosis: Type 2 diabetes mellitus without complications[ICD10: E11.9] Diagnosis: Gastro-esophageal reflux disease without esophagitis[ICD10: K21.9] Fifi Camejo MD, [facility] CPT-4: 42538 11/17/2016 ([id number]) 54115 EST. PATIENT, LEVEL III Diagnosis: Acute bronchitis due to other specified organisms[ICD10: J20.8] Diagnosis: Cough[ICD10: R05] Fifi Camejo MD [facility] CPT-4: 41980 11/05/2016 ([id number]) 62898 EST. PATIENT, LEVEL IV Diagnosis: Essential (primary) hypertension[ICD10: I10] Diagnosis: Type 2 diabetes mellitus without complications[ICD10: E11.9] RANDALL Redmond MD CPT-4: 48099 09/21/2016 ([id number]) Miscellaneous no charge Diagnosis: Essential (primary) hypertension[ICD10: I10] RANDALL Redmond MD CPT-4: 42835 09/16/2016 ([id number]) 36932 EST. PATIENT, LEVEL III Diagnosis: Type 2 diabetes mellitus without complications[ICD10: E11.9] Diagnosis: Essential (primary) hypertension[ICD10: I10] Fifi Camejo MD [facility] CPT-4: 02840 08/03/2016 ([id number]) OFFICE VISIT, NEW - LEVEL 4 Diagnosis: Essential (primary) hypertension[ICD10: I10] Diagnosis: Type 2 diabetes mellitus without complications[ICD10: E11.9] Diagnosis: Carpal tunnel syndrome, left upper limb[ICD10: G56.02] Diagnosis: Right upper quadrant pain[ICD10: R10.11] Diagnosis: Mixed hyperlipidemia[ICD10: E78.2] Fifi Camejo MD, [facility] CPT- 4: 73313 07/06/2016 Plan of Care Planned Activity Notes Codes Status Date Visit Plan: Hypertension - uncontrolled today in [...] - recommended referral to Dr. Anders in [place] 08/24/2017 Appointment: Fifi Camejo WPtel: [id number] [id number] (15 min) Moderate 08/24/2017 Patient Education: Patient Medication Summary Completed 08/24/2017 Care Plan: Referral Order SNOMED-CT : 355293245 Pending 08/24/2017 Visit Plan: Hypertension - uncontrolled [...] above. 07/26/2017 Appointment: Fifi Camejo WPtel: [phone] [facility] (15 min) Moderate 07/26/2017 Patient Education: Patient [...] medications. 05/27/2017 Appointment: Krysta Dale WPtel: [phone] [facility] [place] (15 min) Moderate 05/27/2017 Patient Education: Patient Medication Summary Completed 05/27/2017 Appointment: Nurse Visit 05/07/2017 Patient Education: Patient Medication Summary Completed 05/07/2017 Visit Plan: Persistent vergito with bilateral air-fluid levels and ear pain. Pt was seen by Dr. Calvo- she did not like his response to her complaints. I have recommended a referral to ENT in [facility]. I suspect she may need myringotomy tubes. Pt to continue with flonase. Orthostatic hypotension - dc doxazosin. Monitor blood pressures at home. stop the doxazosin meclizine change to 1/2 pill three times a day come back on Wednesday for blood pressure check 05/03/2017 App[facility]ment[phone] [place] (15 min) Moderate 05/03/2017 Patient Education: Patient Medication Summary Completed 05/03/2017 Appointment: [phone] [place] (15 min) [...] glucose control. 04/15/2017 Appointment: Krysta Dale WPtel: [address] [place], [place] [id number] (30 min) [facility] 04/15/2017 Patient Education: Patient Medication Summary [...] surrogate. 03/30/2017 Appointment: [phone] [place] - Annual Wellness Visit 03/30/2017 Patient Education: [...] 03/16/2017 Care Plan: Referral Order SNOMED-CT : [id number] Pending 03/16/2017 Visit Plan: Allergies - chronic [...] worsen. 03/12/2017 Appointment: [phone] (15 min) Moderate 03/12/2017 Patient [...] less controlled. 02/17/2017 Appointment: [phone] (30 min) Complex [...] controlled. 01/20/2017 Appointment: Fifi Camejo WPtel: [phone] [facility] (30 min) Complex 01/20/2017 Patient Education: Patient [...] dexilant 11/17/2016 Appointment: Fifi Camejo WPtel: [phone] [facility] (30 min) Complex 11/17/2016 Patient Education: Patient [...] range. 09/21/2016 Appointment: [facility] C[phone] ([facility] min) Moderate 08/03/2016 Patient [...] not improving. 07/06/2016 Appointment: [facility] Came[phone] [facility] 07/06/2016 Patient Education: Patient Medication Summary Completed 07/06/2016 Patient Education: Obesity Completed 07/06/2016 Referral: Dr Calvo Referral Completed Referral: External, Ordering Provider Referral Appointment Requested [...] monitor your heart rate Consider referral for clinical trial associate for possible stress test if needed. Call [...] monitor your heart rate Consider referral for clinical trial associate for possible stress test if needed. Call [...] greater blood glucose control. . Hypertension - well controlled - continue [...] have recommended a referral to ENT in [place] or [place]. I suspect she may need myringotomy tubes. [...] - recommended referral to Dr. Anders in [place]
--- OUTSIDE RECORDS SUMMARY | 2019-03-08 17:36 | XMS REPORT | CCD ---
Author Author Fifi Camejo Organization Fifi Camejo MD, [facility] Address [address] [place] [address] Phone Care Team Providers Care Racehorse Trainer Name Role Phone PP Unavailable CCM Unavailable Summary Purpose Interface Exchange Insurance Providers Payer name Policy type / Coverage type Covered republican ID Effective Begin Date Effective End Date WPS Medicare Part B Medicare Part B [id number] Unknown Unknown FOR LIFE WPS Medicare Part B [id number] Unknown Unknown Family history Father Diagnosis Age At Onset Cancer Unknown Brother Diagnosis Age At Onset Diabetes mellitus Type 2 Unknown Heart Attack Unknown Social History Social History Element Codes Description Effective Dates Marital status Unknown Wu 11/05/2016 Number of children Unknown 1 07/06/2016 Employment Unknown Retired 07/06/[address]: 529820463 Never smoker 07/06/[address]: 355774819 Never drinks alcohol 07/06/2016 Allergies, Adverse Reactions, [...] Fill Instructions glimepiride 4 mg tablet RxNorm: 786949 1 TABLET(S) PO DAILY 11/15/2017 No Stop Date Active alprazolam 0.5 mg tablet RxNorm: 081700 1 Tablet(s) PO TID as needed anxiety 09/20/2017 12/18/2017 Active Zithromax Z-Juan 250 mg tablet RxNorm: 711525 1 Tablet(s) PO UD 09/20/2017 No Stop Date Active Zithromax Z-Juan 250 mg tablet RxNorm: 783588 1 Tablet(s) PO UD 09/14/2017 09/19/2017 Inactive clonidine HCl 0.1 mg tablet RxNorm: 865396 1/2 Tablet(s) PO BID 08/24/2017 08/18/2018 Active amlodipine 10 mg tablet RxNorm: 152429 1 Tablet(s) PO daily 08/24/2017 08/18/2018 Active erythromycin 5 mg/gram (0.5 %) eye ointment RxNorm: 690834 1 Gram(s) ophthalmic (eye) QID left eye cyst 08/24/2017 09/06/2017 Inactive losartan 100 mg tablet RxNorm: 461339 1 Tablet(s) PO daily for high blood pressure 08/16/2017 08/10/2018 Active metoprolol tartrate 50 mg tablet RxNorm: 115572 1/2 Tablet(s) PO BID 07/26/2017 07/20/2018 Active clonidine HCl 0.1 mg tablet RxNorm: 687446 1/2 Tablet(s) PO BID 07/26/2017 08/23/2017 Inactive metoprolol tartrate 50 mg tablet RxNorm: 235596 1 Tablet(s) PO BID 07/21/2017 07/25/2017 Inactive amlodipine 10 mg tablet RxNorm: 752438 1 TABLET(S) PO DAILY 06/29/2017 08/23/2017 Inactive Lipitor 10 mg tablet RxNorm: 061609 1 Tablet(s) PO QPM 05/27/2017 02/20/2018 Active OKAY TO DISPENSE GENERIC alprazolam 0.5 mg tablet RxNorm: 098033 1 Tablet(s) PO TID as needed anxiety 05/18/2017 08/15/2017 Inactive hydrochlorothiazide 12.5 mg tablet RxNorm: 181815 1 Tablet(s) PO daily 04/22/2017 05/21/2017 Inactive hydrochlorothiazide 12.5 mg tablet RxNorm: 409087 1 Tablet(s) PO daily 04/22/2017 04/21/2017 Inactive Cipro 500 mg tablet RxNorm: 486036 1 Tablet(s) PO BID 04/16/2017 04/22/2017 Inactive Zofran 4 mg tablet RxNorm: 066772 1 Tablet(s) PO BID as needed nausea and vomitting 04/15/2017 04/19/2017 Inactive Lipitor 10 mg tablet RxNorm: 673478 1 Tablet(s) PO QPM 03/30/2017 05/26/2017 Inactive OKAY TO DISPENSE GENERIC Kenalog 40 mg/mL suspension for injection RxNorm: 9541653 1 Milliliter(s) Inj 03/16/2017 03/16/2017 Inactive doxazosin 4 mg tablet RxNorm: 190190 1.5 Tablet(s) PO BID 03/16/2017 05/02/2017 Inactive prednisone 10 mg tablets in a dose pack RxNorm: 170553 Tablet(s) take dose pack as directed PO take with food 03/16/2017 05/23/2017 Inactive Kenalog 40 mg/mL suspension for injection RxNorm: 4085471 Milliliter(s) Inj 03/12/2017 03/12/2017 Inactive Zithromax Z-Juan 250 mg tablet RxNorm: 310550 1 Tablet(s) PO daily 03/11/2017 03/10/2017 Inactive zpack as directed Zithromax Z-Juan 250 mg tablet RxNorm: 137772 1 Tablet(s) PO daily 03/11/2017 03/15/2017 Inactive zpack as directed doxazosin 4 mg tablet RxNorm: 504688 1.5 Tablet(s) PO BID 02/12/2017 03/15/2017 Inactive fluticasone 50 mcg/actuation nasal spray,suspension RxNorm: 1179871 1 SPRAY NASAL BID 02/05/2017 No Stop Date Active metoprolol tartrate 75 mg tablet RxNorm: 0692082 1 Tablet(s) PO BID 01/29/2017 07/19/2017 Inactive metoprolol tartrate 75 mg tablet RxNorm: 1473121 1 Tablet(s) PO BID 01/29/2017 01/28/2017 Inactive doxazosin 4 mg tablet RxNorm: 308747 1 Tablet(s) PO BID 01/20/2017 02/11/2017 Inactive pantoprazole 40 mg tablet,delayed release RxNorm: 633104 1 Tablet(s) PO daily 12/24/2016 01/19/2017 Inactive pantoprazole 40 mg tablet,delayed release RxNorm: 675055 1 Tablet(s) PO daily 12/24/2016 12/23/2016 Inactive alprazolam 0.5 mg tablet RxNorm: 687307 1 Tablet(s) PO TID as needed anxiety 12/03/2016 04/01/2017 Inactive fluticasone 50 mcg/actuation nasal spray,suspension RxNorm: 1063327 1 [place] NASAL BID 11/25/2016 12/24/2016 Inactive Dexilant 60 mg capsule, delayed release RxNorm: 887750 1 Capsule(s) PO daily 11/25/2016 11/24/2016 Inactive fluticasone 50 mcg/actuation nasal spray,suspension RxNorm: 8776387 1 [place] NASAL BID 11/25/2016 11/24/2016 Inactive fluticasone 50 mcg/actuation nasal spray,suspension RxNorm: 4259221 1 [place] NASAL BID 11/25/2016 11/24/2016 Inactive Dexilant 60 mg capsule, delayed release RxNorm: 742099 1 Capsule(s) PO daily 11/25/2016 12/23/2016 Inactive ProAir RespiClick 90 mcg/actuation breath activated RxNorm: 1672226 1 INH bid and QID as needed 11/19/2016 05/17/2017 Inactive Please send STAT Flonase Allergy Relief 50 mcg/actuation nasal spray,suspension RxNorm: 9855424 1 [place] NASAL BID 11/19/2016 11/24/2016 Inactive glimepiride 4 mg tablet RxNorm: 841999 1 Tablet(s) PO daily 11/19/2016 11/13/2017 Inactive metoprolol tartrate 50 mg tablet RxNorm: 346325 1 Tablet(s) PO BID 11/19/2016 01/28/2017 Inactive Flonase Allergy Relief 50 mcg/actuation nasal spray,suspension RxNorm: 0354058 1 [place] NASAL BID 11/17/2016 11/18/2016 Inactive metoprolol tartrate 50 mg tablet RxNorm: 877472 1 Tablet(s) PO BID 11/17/2016 11/18/2016 Inactive ProAir RespiClick 90 mcg/actuation breath activated RxNorm: 3375810 1 INH bid and QID as needed 11/17/2016 11/16/2016 Inactive glimepiride 4 mg tablet RxNorm: 485601 1 Tablet(s) PO daily 11/17/2016 11/18/2016 Inactive ProAir RespiClick 90 mcg/actuation breath activated RxNorm: 6400216 1 INH bid and QID as needed 11/17/2016 11/18/2016 Inactive Please send STAT Kenalog 40 mg/mL suspension for injection RxNorm: 5307168 1 Milliliter(s) Inj 11/05/2016 11/05/2016 Inactive azithromycin 250 mg tablet RxNorm: 724064 Tablet(s) PO 2 tabs on day #1, then daily x 4 days 11/05/2016 12/23/2016 Inactive doxazosin 4 mg tablet RxNorm: 139116 1 Tablet(s) PO QPM 10/02/2016 01/19/2017 Inactive doxazosin 4 mg tablet RxNorm: 355867 1 Tablet(s) PO QPM 09/29/2016 10/01/2016 Inactive doxazosin 4 mg tablet RxNorm: 796263 1 Tablet(s) PO QPM 09/21/2016 09/28/2016 Inactive Cipro 500 mg tablet RxNorm: 100027 1 Tablet(s) PO BID 09/18/2016 09/17/2016 Inactive Cipro 500 mg tablet RxNorm: 524463 1 Tablet(s) PO BID 09/18/2016 09/24/2016 Inactive losartan 100 mg tablet RxNorm: 935774 1 Tablet(s) PO daily for high blood pressure 09/16/2016 09/15/2016 Inactive alprazolam 0.5 mg tablet RxNorm: 516655 1 Tablet(s) PO TID as needed anxiety 09/16/2016 11/14/2016 Inactive losartan 100 mg tablet RxNorm: 932356 1 Tablet(s) PO daily for high blood pressure 09/16/2016 08/15/2017 Inactive amlodipine 10 mg tablet RxNorm: 390061 1 Tablet(s) PO daily 08/03/2016 06/28/2017 Inactive Zyrtec 10 mg tablet RxNorm: 0629513 1 Tablet(s) PO daily 08/03/2016 09/15/2016 Inactive losartan 25 mg tablet RxNorm: 196735 1 Tablet(s) PO daily 07/08/2016 09/15/2016 Inactive Lipitor 10 mg tablet RxNorm: 787691 1 Tablet(s) PO QPM 07/08/2016 07/17/2016 Inactive OKAY TO DISPENSE GENERIC Lipitor 10 mg tablet RxNorm: 870294 1 Tablet(s) PO QPM 07/06/2016 07/07/2016 Inactive OKAY TO DISPENSE GENERIC losartan 25 mg tablet RxNorm: 369997 1 Tablet(s) PO daily 07/06/2016 07/07/2016 Inactive meclizine 25 mg tablet RxNorm: 804852 1 Tablet(s) PO TID as needed No Start Date Active Parafon Forte DSC 500 mg tablet RxNorm: 520652 1 Tablet(s) PO QID No Start Date Active Zithromax Z-Juan 250 mg tablet RxNorm: 335988 1 Tablet(s) PO UD No Start Date 09/13/2017 Inactive glimepiride 4 mg tablet RxNorm: 386639 1 Tablet(s) PO daily No Start Date 11/16/2016 Inactive metoprolol tartrate 100 mg tablet RxNorm: 276598 1 Tablet(s) PO BID No Start Date 07/21/2017 Inactive naproxen 500 mg tablet RxNorm: 013950 1 Tablet(s) PO BID No Start Date 03/23/2017 Inactive amlodipine 5 mg tablet RxNorm: 933258 1 Tablet(s) PO daily No Start Date 08/02/2016 Inactive metoprolol tartrate 50 mg tablet RxNorm: 882684 1 Tablet(s) PO BID No Start Date 11/16/2016 Inactive Medication Administered Medication Codes Instructions Start Date Status Kenalog 40 mg/mL suspension for injection RxNorm: 4893749 1Milliliter 03/16/2017 No longer Active Kenalog 40 mg/mL suspension for injection RxNorm: 7755207 Milliliter 03/12/2017 No longer Active Kenalog 40 mg/mL suspension for injection RxNorm: 0445098 1Milliliter 11/05/2016 No longer Active Immunizations Vaccine [...] Item Code Result Date Urine Culture Ucult Preliminary NO Growth Day 1 04/17/2017 Urine Culture Ucult Complete NO Growth Day 2 04/17/2017 Comp Metabolic Omv196 NA 143 mEq/L 04/15/2017 Comp Metabolic Ash332 K 4.6 mEq/L 04/15/2017 Comp Metabolic Cls785 CL 110 mEq/L 04/15/2017 Comp Metabolic Jzu788 CO2 30.0 mEq/L 04/15/2017 Comp Metabolic Uac276 ANION GAP 8 04/15/2017 Comp Metabolic Vji802 GLUCOSE 159 mg/dL 04/15/2017 Comp Metabolic Rrj435 Creat 1.1 mg/dL 04/15/2017 Comp Metabolic Cmv161 eGFR 54 ml/min/1.73m2 04/15/2017 Comp Metabolic Hen804 BUN 27 mg/dL 04/15/2017 Comp Metabolic Zvp176 B/C Ratio 25.7 Ratio 04/15/2017 Comp Metabolic Mer488 CALCIUM 9.4 mg/dL 04/15/2017 Comp Metabolic Cfv824 ALK PHOS 93 U/L 04/15/2017 Comp Metabolic Brl962 AST(SGOT) 19 U/L 04/15/2017 Comp Metabolic Zkn624 ALT(SGPT) 18 U/L 04/15/2017 Comp Metabolic Bro407 BILI T 0.6 mg/dL 04/15/2017 Comp Metabolic Pay902 ALBUMIN 3.9 g/dL 04/15/2017 Comp Metabolic Yyp040 TPRO 6.5 g/dL 04/15/2017 Comp Metabolic Qoh131 GLOB 2.6 g/dL 04/15/2017 Comp Metabolic Ywx936 A/G Ratio 1.5 Ratio 04/15/2017 Comp Metabolic Gmw641 Osmo 293 mOsmo 04/15/2017 Tsh Ord6 hTSH II 2.05 uIU/mL 04/15/2017 %Hba1C Zeb516 % HbA1c 85736- 6 6.3 % 04/15/2017 %Hba1C Ked756 Gluc Ave 134 mg/dL 04/15/2017 Cbc With [...] 29.0 pg 04/15/2017 Cbc With Differential Ord2 [place]% 6.9 % 04/15/2017 Cbc With Differential Ord2 [...] 1.58 K/ul 04/15/2017 Cbc With Differential Ord2 [place] ABS# 0.5 K/ul 04/15/2017 Cbc With Differential [...] 04/15/2017 Urinalysis Ord28 U-Yeast NEGATIVE 04/15/2017 %Hba1C Zvv502 % HbA1c 04746- 6 5.8 % 01/07/2017 %Hba1C Eet612 Gluc Ave 120 mg/dL 01/07/2017 Urine Culture Ucult Preliminary NO Growth Day 1 09/21/2016 Urine Culture Ucult Complete NO Growth Day 2 09/21/2016 %Hba1C Nxd944 % HbA1c 98121- 6 6.0 % 09/17/2016 %Hba1C Bqq860 Gluc Ave 126 mg/dL 09/17/2016 Comp Metabolic Ulg499 NA 140 mEq/L 09/17/2016 Comp Metabolic Wgn849 K 4.1 mEq/L 09/17/2016 Comp Metabolic Iee452 CL 105 mEq/L 09/17/2016 Comp Metabolic Kfq963 CO2 29.0 mEq/L 09/17/2016 Comp Metabolic Qze801 ANION GAP 10 09/17/2016 Comp Metabolic Coh827 GLUCOSE 89 mg/dL 09/17/2016 Comp Metabolic Seg822 Creat 0.9 mg/dL 09/17/2016 Comp Metabolic Iud490 eGFR 65 ml/min/1.73m2 09/17/2016 Comp Metabolic Pke024 BUN 20 mg/dL 09/17/2016 Comp Metabolic Eat464 B/C Ratio 22.2 Ratio 09/17/2016 Comp Metabolic Uhu280 CALCIUM 9.3 mg/dL 09/17/2016 Comp Metabolic Biz134 ALK PHOS 107 U/L 09/17/2016 Comp Metabolic Mym711 AST(SGOT) 22 U/L 09/17/2016 Comp Metabolic Ivg283 ALT(SGPT) 15 U/L 09/17/2016 Comp Metabolic Omw963 BILI T 0.7 mg/dL 09/17/2016 Comp Metabolic Obv249 ALBUMIN 4.0 g/dL 09/17/2016 Comp Metabolic Gyu731 TPRO 6.8 g/dL 09/17/2016 Comp Metabolic Ebn402 GLOB 2.8 g/dL 09/17/2016 Comp Metabolic Ujq239 A/G Ratio 1.4 Ratio 09/17/2016 Comp Metabolic Kjh253 Osmo 281 mOsmo 09/17/2016 Microalbumin Dwj804 MicroAlb 44.3 mg/dL 09/17/2016 Tsh Ord6 hTSH [...] 87.1 fl 09/17/2016 Cbc With Differential Ord2 [place]% 8.1 % 09/17/2016 Cbc With Differential Ord2 [...] 1.78 K/ul 09/17/2016 Cbc With Differential Ord2 [place] ABS# 0.6 K/ul 09/17/2016 Cbc With Differential [...] 4: G0439 03/30/2017 THER/PROPH/DIAG INJ SC/IM CPT-4: 65822 03/16/2017 TRIAMCINOLONE ACET INJ NOS CPT-4: J3301 03/16/2017 THER/PROPH/DIAG INJ SC/IM CPT-4: 29233 03/12/2017 TRIAMCINOLONE ACET INJ NOS CPT-4: J3301 03/12/2017 THER/PROPH/DIAG INJ SC/IM CPT-4: 62935 11/05/2016 TRIAMCINOLONE ACET INJ NOS CPT-4: J3301 11/05/2016 URINALYSIS NONAUTO W/O SCOPE CPT-4: 28748 09/18/2016 Vital Signs Date Vital 08/24/2017 Blood Pressure 1: 186/70 Code: 8480-6 Blood Pressure 1: 150/70 Code: 8480-6 BMI: 31.8 Code: 80545-7 Heart Rate 1: 53 bpm Height: 5'7" SpO2: 98% Weight: 203 lbs 07/26/2017 Blood Pressure 1: 206/78 Code: 8480-6 Blood Pressure 2: 210/84 Code: 8480-6 BMI: 32.0 Code: 45978-2 Heart Rate 1: 49 bpm Height: 5'7" SpO2: 97% Weight: 204 lbs 07/20/2017 Blood Pressure 1: 148/82 Code: 8480-6 Heart Rate 1: 90 bpm SpO2: 98% 05/27/2017 Blood Pressure 1: 142/72 Code: 8480-6 BMI: 30.5 Code: 25017-6 Heart Rate 1: 97 bpm Height: 5'7" [...] 1: 148/70 Code: 8480-6 BMI: 30.4 Code: 64264-1 Heart Rate 1: 54 bpm Height: 5'7" SpO2: 97% Weight: 194 lbs 03/30/2017 BMI: 33.2 Code: 47329-6 Height: 5'7" Weight: 212 lbs 03/16/2017 Blood Pressure 1: 140/80 Code: 8480-6 BMI: 34.0 Code: 35605-3 Heart Rate 1: 70 bpm Height: 5'7" SpO2: 95% Weight: 217 lbs 03/12/2017 Blood Pressure 1: 142/80 Code: 8480-6 BMI: 34.0 Code: 76525-7 Heart Rate 1: 76 bpm Height: 5'7" SpO2: 92% Weight: 217 lbs 02/17/2017 Blood Pressure 1: 162/64 Code: 8480-6 BMI: 32.9 Code: 28885-8 Heart Rate 1: 59 bpm Height: 5'7" SpO2: 97% Weight: 210 lbs 01/20/2017 Blood Pressure 1: 162/74 Code: 8480-6 BMI: 32.9 Code: 69857-0 Heart Rate 1: 56 bpm Height: 5'7" SpO2: 98% Weight: 210 lbs 11/17/2016 Blood Pressure 1: 156/60 Code: 8480-6 BMI: 34.8 Code: 67047-3 Heart Rate 1: 63 bpm Height: 5'7" SpO2: 96% Weight: 222 lbs 11/05/2016 Blood Pressure 1: 160/68 Code: 8480-6 BMI: 34.5 Code: 89045-4 Heart Rate 1: 66 bpm Height: 5'7" SpO2: 97% Temperature: 36.9 (C) / 98.5 (F) Weight: 220 lbs 09/21/2016 Blood Pressure 1: 180/72 Code: 8480-6 Blood Pressure 1: 166/72 Code: 8480-6 BMI: 32.1 Code: 05337-1 Heart Rate 1: 57 bpm Height: 5'7" SpO2: 98% Weight: 205 lbs 09/16/2016 Blood Pressure 1: 168/70 Code: 8480-6 Heart Rate 1: 49 bpm SpO2: 95% 08/03/2016 Blood Pressure 1: 162/70 Code: 8480-6 BMI: 32.0 Code: 71828-8 Heart Rate 1: 43 bpm Height: 5'7" SpO2: 98% Weight: 204 lbs 07/06/2016 Blood Pressure 1: 170/86 Code: 8480-6 BMI: 32.0 Code: 33279-6 Heart Rate 1: 48 bpm Height: 5'7" [...] data Encounters Encounter Performer Location Codes Date () 97848 EST. PATIENT, LEVEL IV Diagnosis: Essential (primary) hypertension[ICD10: I10] Diagnosis: Cysts of left upper eyelid[ICD10: H02.824] Diagnosis: Pain in left foot[ICD10: M79.672] Fifi Camejo MD, [facility] CPT- 4: 27956 08/24/2017 ([id number]) 11371 EST. PATIENT, LEVEL III Diagnosis: Essential (primary) hypertension[ICD10: I10] Fifi Camejo MD, [facility] CPT-4: 94701 07/26/2017 ([id number]) Miscellaneous no charge Diagnosis: Essential (primary) hypertension[ICD10: I10] Fifi Camejo MD, [facility] CPT-4: 31348 07/20/2017 02400 EST. PATIENT, LEVEL III Diagnosis: Otalgia, bilateral[ICD10: H92.03] Diagnosis: Dizziness and giddiness[ICD10: R42] Diagnosis: Mixed hyperlipidemia[ICD10: E78.2] Krysta Camejo MD, [facility] CPT-4: 94709 05/27/2017 ([id number]) Miscellaneous no charge Diagnosis: Essential (primary) hypertension[ICD10: I10] Krysta Camejo MD, [facility] CPT-4: 51497 05/07/2017 ([id number]) 51648 EST. PATIENT, LEVEL IV Diagnosis: Otalgia, bilateral[ICD10: H92.03] Diagnosis: Dizziness and giddiness[ICD10: R42] Diagnosis: Orthostatic hypotension[ICD10: I95.1] Fifi Camejo MD, [facility] CPT-4: 06935 05/03/2017 86704 EST. PATIENT, LEVEL IV Diagnosis: Essential (primary) hypertension[ICD10: I10] Diagnosis: Type 2 diabetes mellitus without complications[ICD10: E11.9] Diagnosis: Gastro-esophageal reflux disease without esophagitis[ICD10: K21.9] Diagnosis: Dizziness and giddiness[ICD10: R42] Diagnosis: Dysuria[ICD10: R30.0] Diagnosis: Other malaise[ICD10: R53.81] Krysta Camejo MD, [facility] CPT-4: 58746 04/15/2017 ([id number]) 76016 EST. PATIENT, LEVEL IV Diagnosis: Type 2 diabetes mellitus without complications[ICD10: E11.9] Diagnosis: Otalgia, bilateral[ICD10: H92.03] Diagnosis: Essential (primary) hypertension[ICD10: I10] Diagnosis: Other allergic rhinitis[ICD10: J30.89] Fifi Camejo MD, [facility] CPT-4: 37270 03/16/2017 11417 EST. PATIENT, LEVEL IV Diagnosis: Other acute sinusitis[ICD10: J01.80] Diagnosis: Acute suppurative otitis media without spontaneous rupture of ear drum, bilateral[ICD10: H66.003] Diagnosis: Other allergic rhinitis[ICD10: J30.89] Krysta Camejo MD, [facility] CPT- 4: 82445 03/12/2017 ([id number]) 53891 EST. PATIENT, LEVEL IV Diagnosis: Essential (primary) hypertension[ICD10: I10] Diagnosis: Type 2 diabetes mellitus without complications[ICD10: E11.9] Fifi Camejo MD [facility] CPT-4: 62985 02/17/2017 ([id number]) 08423 EST. PATIENT, LEVEL IV Diagnosis: Essential (primary) hypertension[ICD10: I10] Diagnosis: Type 2 diabetes mellitus without complications[ICD10: E11.9] Fifi Camejo MD [facility] CPT-4: 21076 01/20/2017 ([id number]) 40793 EST. PATIENT, LEVEL IV Diagnosis: Essential (primary) hypertension[ICD10: I10] Diagnosis: Type 2 diabetes mellitus without complications[ICD10: E11.9] Diagnosis: Gastro-esophageal reflux disease without esophagitis[ICD10: K21.9] Fifi Camejo MD, [facility] CPT-4: 84717 11/17/2016 ([id number]) 25674 EST. PATIENT, LEVEL III Diagnosis: Acute bronchitis due to other specified organisms[ICD10: J20.8] Diagnosis: Cough[ICD10: R05] Fifi Camejo MD, [facility] CPT-4: 73452 11/05/2016 ([id number]) 55669 EST. PATIENT, LEVEL IV Diagnosis: Essential (primary) hypertension[ICD10: I10] Diagnosis: Type 2 diabetes mellitus without complications[ICD10: E11.9] Fifi Camejo MD, [facility] CPT-4: 00520 09/21/2016 ([id number]) Miscellaneous no charge Diagnosis: Essential (primary) hypertension[ICD10: I10] Fifi Camejo MD, [facility] CPT-4: 03904 09/16/2016 ([id number]) [id number] EST. PATIENT, LEVEL III Diagnosis: Type 2 diabetes mellitus without complications[ICD10: E11.9] Diagnosis: Essential (primary) hypertension[ICD10: I10] Fifi Camejo MD, [facility] CPT-4: 72051 08/03/2016 ([id number]) OFFICE VISIT, NEW - LEVEL 4 Diagnosis: Essential (primary) hypertension[ICD10: I10] Diagnosis: Type 2 diabetes mellitus without complications[ICD10: E11.9] Diagnosis: Carpal tunnel syndrome, left upper limb[ICD10: G56.02] Diagnosis: Right upper quadrant pain[ICD10: R10.11] Diagnosis: Mixed hyperlipidemia[ICD10: E78.2] Fifi Camejo MD, [facility] CPT- 4: 73731 07/06/2016 Plan of Care Planned Activity Notes [...] - recommended referral to Dr. Anders in [place] 08/24/2017 Appointment: Fifi Camejo WPtel: [address] [place], [place] [id number] (15 min) Moderate 08/24/2017 Patient Education: Patient Medication Summary Completed 08/24/2017 Care Plan: Referral Order SNOMED-CT : 333582574 Pending 08/24/2017 Visit Plan: Hypertension - uncontrolled [...] above. 07/26/2017 Appointment: Fifi Camejo WPtel: [phone] [facility] (15 min) Moderate 07/26/2017 Patient Education: [...] medications. 05/27/2017 [phone] (15 min) Moderate 05/27/2017 Patient Education: Patient Medication Summary Completed 05/27/2017 Appointment: Nurse Visit 05/07/2017 Patient Education: Patient Medication Summary Completed 05/07/2017 Visit Plan: Persistent vergito with bilateral air-fluid levels and ear pain. Pt was seen by Dr. Calvo- she did not like his response to her complaints. I have recommended a referral to ENT in [place] or [place]. I suspect she may need myringotomy tubes. Pt to continue with flonase. Orthostatic hypotension - dc doxazosin. Monitor blood pressures at home. stop the doxazosin meclizine change to 1/2 pill three times a day come back on Wednesday for blood pressure check 05/03/2017 Appointment: Fifi Camejo WPtel: [address] [facility] (15 min) Moderate 05/03/2017 Patient Education: Patient Medication Summary Completed 05/03/2017 Appointment: Fifi Camejo WPtel: [phone] [facility] (15 min) Moderate 04/21/2017 Visit Plan: [...] glucose control. 04/15/2017 Appointment: Krysta Dale WPtel: [address] [place], [place] [address] (30 min) Complex 04/15/2017 Patient Education: Patient [...] surrogate. 03/30/2017 Appointment: Ch[place] [facility]rysta [phone] [facility] [facility] - Annual Wellness Visit 03/30/2017 [...] [facility] after March 24 Hypertension - well [...] 03/16/2017 Care Plan: Referral Order SNOMED-CT : [id number] Pending 03/16/2017 Visit Plan: Allergies - chronic [...] [facility] (15 min) [...] controlled. 01/20/2017 Appointment: Fifi Camejo WPtel: [phone] [facility] (30 min) Complex 01/20/2017 Patient Education: Patient [...] dexilant 11/17/2016 Appointment: Fifi Camejo [facility]: [phone] [facility] [...] in plan at this time. 08/03/2016 Appointment: [place] [phone] (15 min) Moderate 08/03/2016 Patient Education: [...] if not improving. 07/06/2016 Appointment: [place] [facility]Ptel[facility] New [...] monitor your heart rate Consider referral for international guest coordinator for possible stress test if needed. Call [...] monitor your heart rate Consider referral for international guest coordinator for possible stress test if needed. Call [...] have recommended a referral to ENT in [place] or [place]. I suspect she may need myringotomy tubes. [...] - recommended referral to Dr. Anders in [place]
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
--- NOTE | 2019-03-08 17:48 | NUR ---
REPORT RECEIVED FROM EMILE HANDLEY IN ED. WILL ASSUME CARE OF PT WHEN ARRIVES TO FLOOR
--- NOTE | 2019-03-08 17:56 | NUR ---
Pt admitted to room 419-1, with an admitting diagnosis of lumbar spinal stenosis, intractable pain and n/v , on 03/08/19 from ED via pt bed accompanied by ED staff. pt transferred x3 assist to bed. Pt placed on left side per request and denies wanting anything for pain at this time. Pt was introduced to surroundings, call light, bed controls, phone, TV, temperature control, lights, meal times. Call light within reach. pt verbalizes understanding of use of call light
[2019-03-08] MEDS ORDERED: PROMETHAZINE INJ 25 MG/ML (PHENERGAN) AMP IVP PRN (18:30)
[2019-03-08] MEDS ORDERED: HYDROmorphone 2 MG/ML VIAL (DILAUDID) IVP PRN (18:30)
[2019-03-08] MEDS: NS IV 1000 ML 1,000 ML IV SCH (18:54)
[2019-03-08 20:16] VITALS: BP 147/65
[2019-03-08] MEDS: oxyCODONE/APAP 10/325MG (PERCOCET 10) TABLET PO PRN (20:45)
[2019-03-08] MEDS: meTOprolol TARTRATE 50 MG (LOPRESSOR) TAB PO SCH (20:45)
--- NOTE | 2019-03-08 20:57 | History & Physicial ---
History of Present Illness History of Present Illness Reason for visit/HPI PT PRESENTED TO THE HOSPITAL AFTER HAVING AN MRI OF HER LUMBAR SPINE AND PELVIS. SHE REPORTEDLY HAD SO MUCH PAIN THAT SHE WAS UNABLE TO STAND UP WITHOUT CRYING OUT IN PAIN. SHE THEN PRESENTED HERSELF TO THE EMERGENCY DEPARTMENT FOR PAIN CONTROL. PER THE ER PHYSICIAN REPORT, HER PAIN WAS NOT CONTROLLED WITH IV MEDICATION, AND THEN SHE STARTED TO HAVE EMESIS AFTER THE PAIN MEDICATION INJE CTION. SHE REPORTS THAT SHE HAD NOT BEEN COMPLETELY HONEST WITH THE OFFICE ABOUT HOW HORRIBLE HER PAIN HAD BECOME, SHE WAS AFRAID THAT WE WOULD THINK SHE WAS SEEKING MEDICATION, SO SHE DID NOT REPORT THE EXTENT OF HER PAIN. Date of Admission Mar 08, 2019 at 16:35 Date Seen by a Provider: Mar 08, 2019 Time Seen by a Provider: 20:50 I consulted on this patient on 03/08/192049 Attending Physician Deborah Camejo MD Admitting Physician Deborah Camejo MD Consult YAO MATTHEWS DO Allergies and Home Medications Allergies Coded Allergies: clonidine (Verified Allergy, Unknown, NAUSEA, 03/09/19) Penicillins (Unverified Adverse Reaction, Intermediate, 09/15/13) Sulfa (Sulfonamide Antibiotics) (Unverified Adverse Reaction, Intermediate, 09/15/13) Uncoded Allergies: ivp dye (Adverse Reaction, Intermediate, 09/15/13) Home Medications Alprazolam 0.5 Mg Tablet, 0.5 MG PO TID PRN for ANXIETY, (Reported) Amlodipine Besylate 10 Mg Tablet, 10 MG PO HS, (Reported) Atorvastatin Calcium 10 Mg Tablet, 10 MG PO HS, (Reported) Bisacodyl 5 Mg Tablet.dr, 5 MG PO DAILY PRN for CONSTIPATION-4TH LINE, (Reported) Chlorzoxazone 500 Mg Tablet, 500 MG PO QID PRN for MUSCLE SPASMS, (Reported) Diclofenac Sodium 100 Gm Gel..gram., TOP TID PRN for MUSCLE PAIN, (Reported) Famotidine 20 Mg Tablet, 20 MG PO DAILY PRN for HEARTBURN, (Reported) Fluticasone Propionate 16 Gm [place].susp, 2 SPRAYS NS DAILY PRN for ALLERGIES, (Reported) Glimepiride 4 Mg Tablet, 2 MG PO BID, (Reported) TAKES 1/2 (4MG) TABLET Hydralazine HCl 10 Mg Tablet, 10 MG PO TID PRN for SBP>150, (Reported) Losartan Potassium 100 Mg Tablet, 100 MG PO DAILY, (Reported) Metoprolol Tartrate 50 Mg Tablet, 25 MG PO BID, (Reported) TAKES 1/2 (50MG) TABLET Olopatadine HCl 2.5 Ml Drops, 1 DROP OU TID PRN for DRY EYES, (Reported) Tramadol HCl 50 Mg Tablet, 25 MG PO Q4H PRN for PAIN-MODERATE, (Reported) Patient Home Medication List Home Medication List Reviewed: Yes Past Muthjfn-Hwdhoa-Rqetos Hx Patient Social History Marrital Status: Living Status: LIVES WITH SPOUSE Employed/Student: retired Alcohol Use: Denies Use Recreational Drug Use: No Smoking Status: Never a Smoker 2nd Hand Smoke Exposure: No Physical Abuse Screen: No Sexual Abuse: No Recent Foreign Travel: No Contact w/other who traveled: No Recent Hopitalizations: No Recent Infectious Disease Expo: No Immunizations Up To Date Tetanus Booster (TDap): More than 5yrs Date of Pneumonia Vaccine: Mar 21, 2018 Date of Influenza Vaccine: Aug 25, 2013 Surgeries Yes Adenoidectomy, Appendectomy, Section, Oophorectomy, Orthopedic, Tonsillectomy Respiratory No Cardiovascular Yes Hypertension Neurological No 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 System : No Female 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 Disorders: Denies, Ovarian Cyst Genitourinary No Gastrointestinal No Musculoskeletal Yes Degenerate Disk Disease, Arthritis, Chronic Back Pain Endocrine History of Endocrine Disorders: No HEENT History of HEENT Disorders: No Loss of Vision: Denies Hearing Impairment: Denies Cancer No Psychosocial History of Psychiatric Problem: Yes Behavioral Health Disorders: Anxiety Integumentary History of Skin or Integumenta: No Blood Transfusions History of Blood Disorders: No Reviewed Nursing Assessment Reviewed/Agree w Nursing PMH: Yes Family Medical History Significant Family History: Heart Disease, Cancer, Stroke Family Hx: Cancer 03 FATHER (RADICAL NECK CANCER ) Family history: Cardiovascular disease 09 BROTHER Stroke 09 BROTHER, Onset:60 ( FROM STROKE) Review of Systems Constitutional: No chills, No fever; malaise, weakness EENTM: No hoarseness, No throat pain Respiratory: No cough, No dyspnea on exertion, No short of breath Cardiovascular: No chest pain, No edema, No palpitations Gastrointestinal: No abdominal pain; nausea; No vomiting Genitourinary: no symptoms reported Musculoskeletal: back pain, joint pain (RIGHT HIP), muscle weakness (BOTH LOWER LEGS) Skin: no symptoms reported Psychiatric/Neurological: Anxiety, Weakness All Other Systems Reviewed Negative Unless Noted: Yes Physical Exam Vital Signs Vital Signs - First Documented 03/08/19 03/09/19 14:57 08:28 Temp 97.9 Pulse 77 Resp 25 B/P (MAP) 177/86 (116) Pulse Ox 97 O2 Delivery Room Air O2 Flow Rate 0.00 Capillary Refill : Less Than 3 Seconds Height, Weight, BMI Height: 5'7.00" Weight: 190lbs. 0.0oz. 86.544171fr; 29.8 BMI Method:Stated General Appearance: WD/WN, Moderate Distress (DUE TO PAIN) Eyes: Bilateral Eye Normal Inspection, Bilateral Eye PERRL, Bilateral Eye EOMI HEENT: PERRL/EOMI, Pharynx Normal Neck: Full Range of Motion, Non Tender, Supple Respiratory: Chest Non Tender, Lungs Clear, Normal Breath Sounds, No Accessory Muscle Use, No Respiratory Distress Cardiovascular: Regular Rate, Rhythm, No Edema, No Murmur, Normal Peripheral Pulses Gastrointestinal: Normal Bowel Sounds, No Organomegaly, No Pulsatile Mass, Non Tender, Soft Rectal: Deferred Back: Other (TTP LATERAL RIGHT HIP, SI JOINT, UNABLE TO MOVE LOWER EXTREMITIES WITHOUT PAIN) Extremity: Normal Capillary Refill, No Calf Tenderness, No Pedal Edema Neurologic/Psychiatric: Alert, Oriented x3, Other (TEARFUL) Skin: Normal Color, Warm/Dry Lymphatic: No Adenopathy Assessment/Plan Assessment and Plan LUMBAR SPINE DISC DISEASE EXTRUDED LUMBAR DISC MULTI-LEVEL DJD WITH NEUROFORAMINAL STENOSIS LABRAL TEAR RIGHT HIP UNCONTROLLED, INTRACTABLE PAIN IN BACK/HIP HYPERTENSION DEPRESSION ANXIETY DIABETES HYPERLIPIDEMIA GERD LUMBAR SPINE DISC DISEASE - EXTRUDED LUMBAR DISC - MULTI-LEVEL DJD WITH NEUROFORAMINAL STENOSIS UNCONTROLLED, INTRACTABLE PAIN IN BACK/HIP - IV PAIN MEDICATION TO BE USED PRN 1. Severe multilevel lumbar spondylosis with multilevel central canal, lateral recess, and neural foraminal stenosis, described level by level above. There appears to be an extruded disc at the midline at L5-S1 level extending slightly caudal and likely impinging upon the origin of the right S1 nerve root. 2. No evidence of acute compression fracture. DISCUSSED WITH PT - SHE WANTS TO CONSIDER A PROVIDER OUTSIDE OF [facility]IA [facility] IF POSSIBLE - PHONE CALL PLACED TO DR. CARRION'S OFFICE PER PT'S SPECIFIC REQUEST. LABRAL TEAR RIGHT HIP - SUPPORTIVE CARE AT THIS TIME HYPERTENSION - RESUME HOME REGIMEN DEPRESSION - RESUME ANXIOLYTICS - MONITOR MOOD - WHICH IS LOW DUE TO HER PAIN. DIABETES - MONITOR FSBS HYPERLIPIDEMIA - HOLD STATIN THERAPY AT THIS TIME. GERD - START PPI IF NEEDED. Admission Diagnosis LUMBAR SPINE DISC DISEASE EXTRUDED LUMBAR DISC MULTI-LEVEL DJD WITH NEUROFORAMINAL STENOSIS LABRAL TEAR RIGHT HIP UNCONTROLLED, INTRACTABLE PAIN IN BACK/HIP HYPERTENSION DEPRESSION ANXIETY DIABETES HYPERLIPIDEMIA GERD Admission Status: Observation Reason for Inpatient Admission: OBSERVATION - MAY NEED TO TRANSITION TO INPT STAY Clinical Quality Measures DVT/VTE Risk/Contraindication: Risk Factor Score Per Nursin RFS Level Per Nursing on Admit: 2=Moderate DEBORAH CAMEJO MD Mar 08, 2019 20:57
[2019-03-08] MEDS: ALPRAZolam 0.5 MG (XANAX) TAB PO PRN (23:33)
[2019-03-09] VITALS (7 sets, daily range): BP systolic 149–169; BP diastolic 67–77
[2019-03-09] MEDS: NS IV 1000 ML 1,000 ML IV SCH ×2 (05:22→14:32)
[2019-03-09 06:03] LABS: BASOPHILS % (AUTO) 0 % (0-10); EOSINOPHILS # (AUTO) 0.1 10^3/uL (0.0-0.3); EOSINOPHILS % (AUTO) 1 % (0-10); HEMATOCRIT 40 % (35-52); HEMOGLOBIN 13.6 G/DL (11.5-16.0); LYMPHOCYTES # (AUTO) 2.5 X 10^3 (1.0-4.0); LYMPHOCYTES % (AUTO) 22 % (12-44); MEAN CORPUSCULAR HEMOGLOBIN 30 PG (25-34); MEAN CORPUSCULAR HGB CONC 34 G/DL (32-36); MEAN CORPUSCULAR VOLUME 89 FL (80-99); MEAN PLATELET VOLUME 10.4 FL (7.4-10.4); MONOCYTES % (AUTO) 9 % (0-12); NEUTROPHILS # (AUTO) 7.7 X 10^3 (1.8-7.8); NEUTROPHILS % (AUTO) 68 % (42-75); PLATELET COUNT 206 10^3/uL (130-400); RED CELL DISTRIBUTION WIDTH 13.5 % (10.0-14.5); WHITE BLOOD COUNT 11.4 10^3/uL (4.3-11.0)
[2019-03-09 06:39] LABS: CREATININE SERUM 1.15 MG/DL (0.60-1.30); POTASSIUM 5.2 MMOL/L (3.6-5.0)
--- NOTE | 2019-03-09 08:05 | NUR ---
PERCOCET 2 PO FOR C/O PAIN.
[2019-03-09] MEDS: meTOprolol TARTRATE 50 MG (LOPRESSOR) TAB PO SCH ×2 (08:12→20:52)
[2019-03-09] MEDS: amLODIPine 5 MG (NORVASC) TAB PO SCH (08:12)
[2019-03-09] MEDS: oxyCODONE/APAP 10/325MG (PERCOCET 10) TABLET PO PRN ×2 (08:12→20:53)
--- NOTE | 2019-03-09 08:46 | Progress Note ---
Subjective Date Seen by a Provider: Mar 09, 2019 Time Seen by a Provider: 08:40 Subjective/Events-last exam PT REPORTS HAVING A ROUGH NIGHT LAST NIGHT - SHE DID NOT REQUEST PAIN MEDICATION VERY FREQUENTLY THROUGHOUT THE NIGHT - SHE STATES THAT SHE NOW KNOWS THAT SHE NEEDS TO TAKE SOMETHING FOR PAIN. SHE DID NOT WANT THE MEDICATION MADE SAP GATHERER DOSED SHE WOULD LIKE TO HAVE SCHEDULED MEDICATION AND BE ABLE TO ASK FOR ADDITIONAL IV IF NEEDED. PT REPORTS THAT SHE HAD TO GET UP TO THE RESTROOM THROUGHOUT THE NIGHT AND HAD SO MUCH PAIN THAT SHE ALMOST COULD NOT GET BACK UP OFF OF THE TOILET Review of Systems General: Fatigue HEENT: No Head Aches Pulmonary: No Dyspnea, No Cough Cardiovascular: No: Chest Pain Gastrointestinal: No: Nausea, Vomiting Genitourinary: Other (SEVERE PAIN WHEN GETTING UP TO THE RESTROOM) Neurological: Weakness Objective Exam Last Set of Vital Signs Vital Signs Date Time Temp Pulse Resp B/P (MAP) Pulse Ox O2 Delivery O2 Flow Rate FiO2 03/09/19 08:28 97.3 58 19 154/69 (97) 95 Room Air 0.00 Capillary Refill : Less Than 3 Seconds I&O Intake and Output 03/09/19 00:00 Intake Total 1750 ml Output Total 1600 ml Balance 150 ml Intake Oral 750 ml IV Total 1000 ml Output Urine Total 1600 ml Daily Weight Change No No General: Alert, Oriented X3, Moderate Distress (DUE TO PAIN, PT TEARFUL) HEENT: Atraumatic, PERRLA Neck: Supple Lungs: Clear to Auscultation Heart: Regular Rate Abdomen: Normal Bowel Sounds, Soft, No Tenderness Skin: No Rashes Psych/Mental Status: Mental Status NL, Mood NL Results Lab Laboratory Tests 03/08/19 15:05: White Blood Count 13.4H, Red Blood Count 5.22, Hemoglobin 15.8, Hematocrit 45, Mean Corpuscular Volume 86, Mean Corpuscular Hemoglobin 30, Mean Corpuscular Hemoglobin Concent 35, Red Cell Distribution Width 12.9, Platelet Count 299, Mean Platelet Volume 9.9, Neutrophils (%) (Auto) 69, Lymphocytes (%) (Auto) 23, Monocytes (%) (Auto) 7, Eosinophils (%) (Auto) 1, Basophils (%) (Auto) 0, Neutrophils # (Auto) 9.3H, Lymphocytes # (Auto) 3.1, Monocytes # (Auto) 0.9, Eosinophils # (Auto) 0.1, Basophils # (Auto) 0.1, Sodium Level 133L, Potassium Level 4.2, Chloride Level 99, Carbon Dioxide Level 20L, Anion Gap 14, Blood Urea Nitrogen 21H, Creatinine 1.33H, Estimat Glomerular Filtration Rate 39, BUN/Creatinine Ratio 16, Glucose Level 160H, Calcium Level 10.1, Corrected Calcium 9.9, Magnesium Level 1.9, Total Bilirubin 0.8, Aspartate Amino Transf (AST/SGOT) 24, Alanine Aminotransferase (ALT/SGPT) 23, Alkaline Phosphatase 91, C-Reactive Protein High Sensitivity 0.53H, Total Protein 7.2, Albumin 4.2, Lipase 11 03/08/19 15:11: Glucometer 152H 03/09/19 05:15: White Blood Count 11.4H, Red Blood Count 4.47, Hemoglobin 13.6, Hematocrit 40, Mean Corpuscular Volume 89, Mean Corpuscular Hemoglobin 30, Mean Corpuscular Hemoglobin Concent 34, Red Cell Distribution Width 13.5, Platelet Count 206, Mean Platelet Volume 10.4, Neutrophils (%) (Auto) 68, Lymphocytes (%) (Auto) 22, Monocytes (%) (Auto) 9, Eosinophils (%) (Auto) 1, Basophils (%) (Auto) 0, Neutrophils # (Auto) 7.7, Lymphocytes # (Auto) 2.5, Monocytes # (Auto) 1.0, Eo sinophils # (Auto) 0.1, Basophils # (Auto) 0.0, Sodium Level 139, Potassium Level 5.2H, Chloride Level 111#H, Carbon Dioxide Level 17L, Anion Gap 11, Blood Urea Nitrogen 20H, Creatinine 1.15, Estimat Glomerular Filtration Rate 46, BUN/Creatinine Ratio 17, Glucose Level 83, Calcium Level 9.0 Assessment/Plan Assessment/Plan Assess & Plan/Chief Complaint LUMBAR SPINE DISC DISEASE EXTRUDED LUMBAR DISC MULTI-LEVEL DJD WITH NEUROFORAMINAL STENOSIS LABRAL TEAR RIGHT HIP UNCONTROLLED, INTRACTABLE PAIN IN BACK/HIP HYPERTENSION DEPRESSION ANXIETY DIABETES HYPERLIPIDEMIA GERD LUMBAR SPINE DISC DISEASE - EXTRUDED LUMBAR DISC - MULTI-LEVEL DJD WITH NEUROFORAMINAL STENOSIS UNCONTROLLED, INTRACTABLE PAIN IN BACK/HIP - IV PAIN MEDICATION TO BE USED PRN 1. Severe multilevel lumbar spondylosis with multilevel central canal, lateral recess, and neural foraminal stenosis, described level by level above. There appears to be an extruded disc at the midline at L5-S1 level extending slightly caudal and likely impinging upon the origin of the right S1 nerve root. 2. No evidence of acute compression fracture. DISCUSSED WITH PT - SHE WANTS TO CONSIDER A PROVIDER OUTSIDE OF [facility] IF POSSIBLE - PHONE CALL PLACED TO DR. CARRION'S OFFICE PER PT'S SPECIFIC REQUEST. - I HAVE ALSO CALLED DR. MATTHEWS AFTER PT HAS FINALLY AGREED TO AN INPATIENT CONSULTATION, WAITING ON HIS INPUT ON THIS SITUATION. LABRAL TEAR RIGHT HIP - SUPPORTIVE CARE AT THIS TIME HYPERTENSION - RESUMED HOME REGIMEN DEPRESSION - RESUMED ANXIOLYTICS - MONITOR MOOD - WHICH IS LOW DUE TO HER PAIN. DIABETES - MONITOR FSBS HYPERLIPIDEMIA - HOLD STATIN THERAPY AT THIS TIME. GERD - START PPI IF NEEDED. Clinical Quality Measures Admission Status Admission Dx 1. Severe multilevel lumbar spondylosis with multilevel central canal, lateral recess, and neural foraminal stenosis, described level by level above. There appears to be an extruded disc at the midline at L5-S1 level extending slightly caudal and likely impinging upon the origin of the right S1 nerve root. 2. No evidence of acute compression fracture. DVT/VTE Risk/Contraindication: Risk Factor Score Per Nursin RFS Level Per Nursing on Admit: 2=Moderate DEBORAH MORALES MD Mar 09, 2019 08:46
--- NOTE | 2019-03-09 09:15 | NUR ---
REPORTED TO DR. MORALES PT REQUEST FOR BLOOD GLUCOSE CHECKS, RESTARTING AMARYL, ABNORMAL LABS.
[2019-03-09] MEDS: HYDROmorphone 2 MG/ML VIAL (DILAUDID) IVP SCH ×4 (10:08→23:59)
--- NOTE | 2019-03-09 10:09 | NUR ---
NEW DILAUDID ORDER JUST VERIFIED. NOT GIVEN PER PROTOCOL OF 3 HOURS BETWEEN DOSES. WILL GIVE 1200 DOSE EARLY.
--- NOTE | 2019-03-09 10:15 | NUR ---
DILAUDID 0.5MG IV FOR BACKPAIN.
--- NOTE | 2019-03-09 10:20 | NUR ---
#16 ADINA CATH TO JEANNA.
[2019-03-09] MEDS: HYDROmorphone 2 MG/ML VIAL (DILAUDID) IVP PRN (10:22)
[2019-03-09] MEDS ORDERED: DICL100G31 TOP ×2 (10:30)
[2019-03-09] MEDS ORDERED: ATOR10TA66 PO ×2 (10:30)
[2019-03-09] MEDS ORDERED: METO50TA15 PO ×2 (10:30)
[2019-03-09] MEDS ORDERED: TRAM50TA2 PO ×2 (10:30)
[2019-03-09] MEDS ORDERED: CHLO500T4 PO ×2 (10:30)
[2019-03-09] MEDS ORDERED: LOSA100T57 PO ×2 (10:30)
[2019-03-09] MEDS ORDERED: AMLO10TA7 PO ×2 (10:30)
[2019-03-09] MEDS ORDERED: ALPR0.5T7 PO ×2 (10:30)
[2019-03-09] MEDS ORDERED: GLIM4TAB PO ×2 (10:30)
[2019-03-09] MEDS ORDERED: CLON0.1T (10:30)
[2019-03-09] MEDS ORDERED: OLOP2.5D5 OU ×2 (10:42)
[2019-03-09] MEDS ORDERED: BISA5TAB8 PO ×2 (10:42)
[2019-03-09] MEDS ORDERED: FLUT16SP22 NS ×2 (10:42)
[2019-03-09] MEDS ORDERED: HYDR-3922 PO ×2 (10:42)
[2019-03-09] MEDS ORDERED: FAMO20TA3 PO ×2 (10:42)
[2019-03-09] MEDS ORDERED: MECL12.579 PO (10:42)
--- NOTE | 2019-03-09 10:47 | NUR ---
WENT OVER THE BOTTLES THE PATIENT HAS IN HER ROOM WITH HER WELL THE EXT MED HX. SHE STATES SHE IS NO LONGER TAKING THE CLONIDINE BECAUSE SHE IS ALLERGIC TO IT, IT MADE HER VERY NAUSEAS AND HER BLOOD PRESSURE WOULD DROP LOW. SHE TAKES PEPCID AND BISACODYL NEEDED OTC.
--- NOTE | 2019-03-09 14:07 | NUR ---
Initial visit with pt and her . 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. She shared about her recent pain and expressed deep appreciation for having a wafer batter mixer visit her. She verbalized concerns for her as he cares for her and stays with her in the hospital. [place] and supportive relationships described with their children. She and her welcomed prayed. Pt said she hoped we could visit again.
[2019-03-09] MEDS: ONDANSETRON 4 MG/2 ML (SDV) Z0FRAN IVP PRN (14:12)
--- NOTE | 2019-03-09 16:03 | Consultation ---
History of Present Illness History of Present Illness Patient Consulted On(akhil/time) 03/09/19 15:57 Time Seen by Provider: 15:57 Reason for Visit: Low back pain/RLE pain History of Present Illness Pleasant 73 y/o white female with h/o chronic axial LBP that was admitted to the hospital yesterday with CC of an acute exacerbation of her pain and associated debilitating RLE pain. She denies numbness/paresthesias/subjective weakness; also denies f/c/ns, cp/sob, or other constitutional symptoms; denies bowel/bladder dysfunction/saddle anesthesia. She has trouble with history description and has difficulty localizing the RLE pain. She says the RLE pain is rather diffuse, primarily involving the buttock/hip and knee. She says the knee pain is worse with weight bearing. She denies a h/o trauma/falls associated with her CC. She has no additional complaints. Allergies and Home Medications Allergies Coded Allergies: clonidine (Verified Allergy, Unknown, NAUSEA, 03/09/19) Penicillins (Unverified Adverse Reaction, Intermediate, 09/15/13) Sulfa (Sulfonamide Antibiotics) (Unverified Adverse Reaction, Intermediate, 09/15/13) Uncoded Allergies: ivp dye (Adverse Reaction, Intermediate, 09/15/13) Home Medications Alprazolam 0.5 Mg Tablet, 0.5 MG PO TID PRN for ANXIETY, (Reported) Amlodipine Besylate 10 Mg Tablet, 10 MG PO HS, (Reported) Atorvastatin Calcium 10 Mg Tablet, 10 MG PO HS, (Reported) Bisacodyl 5 Mg Tablet.dr, 5 MG PO DAILY PRN for CONSTIPATION-4TH LINE, (Reported) Chlorzoxazone 500 Mg Tablet, 500 MG PO QID PRN for MUSCLE SPASMS, (Reported) Diclofenac Sodium 100 Gm Gel..gram., TOP TID PRN for MUSCLE PAIN, (Reported) Famotidine 20 Mg Tablet, 20 MG PO DAILY PRN for HEARTBURN, (Reported) Fluticasone Propionate 16 Gm [place].susp, 2 SPRAYS NS DAILY PRN for ALLERGIES, (Reported) Glimepiride 4 Mg Tablet, 2 MG PO BID, (Reported) TAKES 1/2 (4MG) TABLET Hydralazine HCl 10 Mg Tablet, 10 MG PO TID PRN for SBP>150, (Reported) Losartan Potassium 100 Mg Tablet, 100 MG PO DAILY, (Reported) Metoprolol Tartrate 50 Mg Tablet, 25 MG PO BID, (Reported) TAKES 1/2 (50MG) TABLET Olopatadine HCl 2.5 Ml Drops, 1 DROP OU TID PRN for DRY EYES, (Reported) Tramadol HCl 50 Mg Tablet, 25 MG PO Q4H PRN for PAIN-MODERATE, (Reported) Patient Home Medication List Home Medication List Reviewed: Yes Past Mviachm-Ynmhty-Mbforw Hx Patient Social History Alcohol Use: Denies Use Recreational Drug Use: No 2nd Hand Smoke Exposure: No Recent Foreign Travel: No Contact w/Someone Who Travel: No Recent Infectious Disease Expo: No Immunizations Up To Date Tetanus Booster (TDap): More than 5yrs Date of Pneumonia Vaccine: Mar 21, 2018 Date of Influenza Vaccine: Aug 25, 2013 Past Medical History Surgeries: Yes Adenoidectomy, Appendectomy, Section, Oophorectomy, Orthopedic, Tonsillectomy Respiratory: No Cardiac: Yes Hypertension Neurological: No Female 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 Disorders: Ovarian Cyst Gastrointestinal: No Musculoskeletal: Yes Arthritis, Chronic Back Pain Endocrine: No Cancer: No Psychosocial: Yes Anxiety Integumentary: No Blood Disorders: No Family Medical History Cancer 03 FATHER (RADICAL NECK CANCER ) Family history: Cardiovascular disease 09 BROTHER Stroke 09 BROTHER, Onset:60 ( FROM STROKE) No Pertinent Family Hx Physical Exam-General Problems Physical Exam Vital Signs Vital Signs - First Documented 03/08/19 03/09/19 14:57 08:28 Temp 97.9 Pulse 77 Resp 25 B/P (MAP) 177/86 (116) Pulse Ox 97 O2 Delivery Room Air O2 Flow Rate 0.00 Capillary Refill : Less Than 3 SecondsLess Than 3 Seconds General Appearance: WD/WN, no apparent distress Eyes: Bilateral Eye Normal Inspection, Bilateral Eye PERRL, Bilateral Eye EOMI HEENT: PERRL/EOMI, normal ENT inspection Neck: non-tender, full range of motion, supple, normal inspection Respiratory: chest non-tender, no respiratory distress, no accessory muscle use Cardiovascular: normal peripheral pulses, regular rate, rhythm, no edema Peripheral Pulses: 2+ Dorsalis Pedis (R), 2+ Left Dors-Pedis (L) Gastrointestinal: non tender, soft Back: normal inspection, no CVA tenderness, no vertebral tenderness Extremities: normal range of motion, no pedal edema, no calf tenderness, other (+TTP medial aspect of Right knee; no pain in the knee/hip with PROM, no knee edema/erythema/effusion.) Neurologic/Psychiatric: olive packer II-XII nml as tested, no motor/sensory deficits, alert, normal mood/affect, oriented x 3 Reflexes: 2+ Knee (R), 2+ Knee (L), 2+ Ankle (R), 2+ Ankle (L) Skin: normal color, warm/dry Assessment/Plan Assessment/Plan Admission Diagnosis/Plan A/P: 73 y/o female with h/o chronic axial LBP. She has CC of an acute/subacute exacerbation with associated debilitating radicular-type pain of the RLE in a rather nondermatomal pattern, symptoms for about 3-4 weeks. No motor/sensory deficits or UMN signs on exam. Imaging studies of the L-spine including plain radiographs and a MRI from yesterday demonstrate diffuse significant degenerative disease including diffuse moderate-severe spondylosis, moderate central/lateral recess stenosis, severe Right NF stenosis L3-4 and a moderate central-Right paracentral extruded disc fragment at L5-S1 with mild displacement of the traversing S1 nerve root. Given the extent of her degenerative disease and the patient's inability to localize her RLE pain it is difficult to determine to what degree the pathology at the L5-S1 level is contributing to her current symptoms. Recommend pain control, mobilization OOB with PT/OT and outpatient follow up in my office early next week. Clinical Quality Measures DVT/VTE Risk/Contraindication: Risk Factor Score Per Nursin RFS Level Per Nursing on Admit: 2=Moderate Labs Laboratory Tests 03/09/19 05:15 YAO MATTHEWS DO Mar 09, 2019 16:03
[2019-03-09] MEDS: DEXAMETHASONE 4 MG/ML SDV (DECADRON) IV SCH ×2 (18:28→23:59)
[2019-03-09] MEDS ORDERED: OLOPATADINE HCL OU PRN (21:30)
[2019-03-09] MEDS ORDERED: BISACODYL 5 MG (DULCOLAX) TABLET PO PRN (21:30)
[2019-03-09] MEDS ORDERED: NON-FORMULARY MEDICATION 1 EA EA (Famotidine (Acid Reducer (FAMOTIDINE)) 20 MG) PO PRN (21:30)
[2019-03-09] MEDS: ALPRAZolam 0.5 MG (XANAX) TAB PO PRN (22:09)
[2019-03-09] MEDS ORDERED: FAMOTIDINE 20 MG (PEPCID) TABLET PO PRN ×2 (22:15)
[2019-03-10] MEDS: NS IV 1000 ML 1,000 ML IV SCH ×3 (00:13→20:07)
[2019-03-10 03:46] VITALS: BP 174/76
[2019-03-10] MEDS: DEXAMETHASONE 4 MG/ML SDV (DECADRON) IV SCH ×2 (05:25→11:39)
[2019-03-10] MEDS: HYDROmorphone 2 MG/ML VIAL (DILAUDID) IVP SCH ×3 (05:26→18:22)
[2019-03-10] MEDS: GLIMEPIRIDE 2 MG (AMARYL) TAB PO SCH ×2 (06:22→18:21)
[2019-03-10 08:00] VITALS: BP 179/69
[2019-03-10] MEDS ORDERED: GLIMEPIRIDE 2 MG PO SCH (09:00)
--- NOTE | 2019-03-10 09:13 | Progress Note ---
Subjective Date Seen by a Provider: Mar 10, 2019 Time Seen by a Provider: 09:10 Subjective/Events-last exam PT REPORTS THAT SHE HAD A HORRIBLE NIGHT, SHE REPORTS THAT THE NURSE OVERNIGHT DID NOT SHOW MUCH EMPATHY AND DID NOT OFFER HER PAIN MEDICATION FREQUENTLY SHE NEEDED FOR PAIN CONTROL. SHE REPORTS THAT SHE JUST FEELS FLUSTERED AND EXHAUSTED DUE TO HER PAIN PREVENTING HER FROM SLEEPING WELL. SHE REPORTS THAT SHE WAS TOLD BY DR. MATTHEWS THAT HE WOULD SEE HER IN HIS CLINIC FOR TREATMENT AND THAT SHE WOULD LIKELY NOT HAVE INPATIENT SURGICAL INTERVENTION. SHE STATES THAT SHE JUST WANTS TO FEEL BETTER. Review of Systems General: Fatigue HEENT: No Head Aches Pulmonary: No Dyspnea, No Cough Cardiovascular: No: Chest Pain, Palpitations Gastrointestinal: No: Nausea, Vomiting, Abdominal Pain Genitourinary: Other (HOLDEN IN PLACE) Musculoskeletal: back pain, leg pain (RIGHT HIP) Neurological: Weakness; No: Confusion Objective Exam Last Set of Vital Signs Vital Signs Date Time Temp Pulse Resp B/P (MAP) Pulse Ox O2 Delivery O2 Flow Rate FiO2 03/10/19 03:46 97.6 50 20 174/76 (108) 94 Room Air 03/09/19 12:57 0.00 Capillary Refill : Less Than 3 SecondsLess Than 3 Seconds I&O Intake and Output 03/10/19 00:00 Intake Total 5030 ml Output Total 3475 ml Balance 1555 ml Intake Oral 3030 ml IV Total 2000 ml Output Urine Total 3475 ml General: Alert, Oriented X3, Cooperative, Moderate Distress HEENT: Atraumatic, PERRLA Neck: Supple Lungs: Clear to Auscultation, Normal Air Movement Heart: Regular Rate Abdomen: Normal Bowel Sounds, Soft Extremities: No Edema Neuro: Normal Speech, Cranial Nerves 3-12 NL Psych/Mental Status: Mental Status NL, Other (TEARFUL) Results Lab Laboratory Tests 03/10/19 06:00: Glucometer 216H Assessment/Plan Assessment/Plan Assess & Plan/Chief Complaint LUMBAR SPINE DISC DISEASE EXTRUDED LUMBAR DISC MULTI-LEVEL DJD WITH NEUROFORAMINAL STENOSIS LABRAL TEAR RIGHT HIP UNCONTROLLED, INTRACTABLE PAIN IN BACK/HIP HYPERTENSION DEPRESSION ANXIETY DIABETES HYPERLIPIDEMIA GERD LUMBAR SPINE DISC DISEASE - EXTRUDED LUMBAR DISC - MULTI-LEVEL DJD WITH NEUROFORAMINAL STENOSIS UNCONTROLLED, INTRACTABLE PAIN IN BACK/HIP - IV PAIN MEDICATION TO BE USED PRN 1. Severe multilevel lumbar spondylosis with multilevel central canal, lateral recess, and neural foraminal stenosis, described level by level above. There appears to be an extruded disc at the midline at L5-S1 level extending slightly caudal and likely impinging upon the origin of the right S1 nerve root. 2. No evidence of acute compression fracture. DISCUSSED WITH PT - SHE WANTS TO CONSIDER A PROVIDER OUTSIDE OF [facility]IA [facility] [place] IF POSSIBLE - PHONE CALL PLACED TO DR. CARRION'S OFFICE PER PT'S SPECIFIC REQUEST - HE HAS NOT DONE ANY SPINE SURGERY FOR OVER 8 YEARS AND IS NOT ABLE TO HELP HER. SHE WAS SEEN BY DR. MATTHEWS YESTERDAY - I HAVE YET TO HEAR FROM HIM - PER HER REPORT - HE HAS INDICATED THAT SHE NEEDS PAIN CONTROL, AND HE WILL SEE HER IN HIS CLINIC, HE IS NOT GOING TO DO A PROCEDURE ON HER IN THE HOSPITAL - AGAIN PER HER REPORT. LABRAL TEAR RIGHT HIP - SUPPORTIVE CARE AT THIS TIME HYPERTENSION - RESUMED HOME REGIMEN - WILL ADD PRN DOSE OF HYDRALAZINE DEPRESSION - RESUME ANXIOLYTICS - MONITOR MOOD - WHICH IS LOW DUE TO HER PAIN. DIABETES - MONITOR FSBS HYPERLIPIDEMIA - HOLD STATIN THERAPY AT THIS TIME. GERD - START PPI IF NEEDED. Clinical Quality Measures Admission Status Admission Dx 1. Severe multilevel lumbar spondylosis with multilevel central canal, lateral recess, and neural foraminal stenosis, described level by level above. There appears to be an extruded disc at the midline at L5-S1 level extending slightly caudal and likely impinging upon the origin of the right S1 nerve root. 2. No evidence of acute compression fracture. DVT/VTE Risk/Contraindication: Risk Factor Score Per Nursin RFS Level Per Nursing on Admit: 2=Moderate DEBORAH MORALES MD Mar 10, 2019 09:13
[2019-03-10] MEDS: BACLOFEN 10 MG (LIORESAL) TAB PO SCH ×3 (09:46→20:07)
[2019-03-10] MEDS: LOSARTAN 100 MG (COZAAR) TABLET PO SCH (09:56)
[2019-03-10] MEDS: amLODIPine 5 MG (NORVASC) TAB PO SCH (09:56)
[2019-03-10] MEDS: meTOprolol TARTRATE 50 MG (LOPRESSOR) TAB PO SCH ×2 (09:56→20:07)
[2019-03-10 12:00] VITALS: BP 142/52
--- NOTE | 2019-03-10 14:18 | NUR ---
Follow up: pt was tearful, verbalized complaints and concerns about the evening nurse, which she identified as a traveling nurse. Pt states her pain was intense throughout the night, and that her stress and pain elevated her blood pressure until the next shift arrived. Pt states she is happy with all her other nurses and ENLISTED ADVISOR's. Quarry Equipment Operator offered active listening and calming presence.
[2019-03-10 16:00] VITALS: BP 149/57
[2019-03-10 20:03] VITALS: BP 142/66
[2019-03-10] MEDS: ALPRAZolam 0.5 MG (XANAX) TAB PO PRN (20:07)
[2019-03-11] VITALS: BP 137/60
[2019-03-11] MEDS: HYDROmorphone 2 MG/ML VIAL (DILAUDID) IVP SCH ×4 (00:34→18:37)
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
[2019-03-11 04:00] VITALS: BP 174/74
--- NOTE | 2019-03-11 04:00 | NUR ---
Dr Lacy notified of pt fall and behavior. orders received. Approached pt to give medication and pt yelling out states will take meds when gets here and that he is on his way. discuss with about pt behavior, states that he will be on his way. pt laying in bed with sitter at bedside. pt tearful and discussing scared and doesn't know where she is and what is going on.
[2019-03-11] MEDS ORDERED: LORazepam INJ 2 MG/ML (ATIVAN) VIAL ONE (04:21)
[2019-03-11] MEDS ORDERED: HALOPERIDOL 5 MG/ML (HALDOL) AMP ONE (04:22)
[2019-03-11] MEDS ORDERED: HALOPERIDOL 5 MG/ML (HALDOL) AMP IM ONE (04:30)
[2019-03-11] MEDS ORDERED: LORazepam INJ 2 MG/ML (ATIVAN) VIAL IVP ONE (04:30)
[2019-03-11] MEDS: NS IV 1000 ML 1,000 ML IV SCH (07:08)
[2019-03-11 08:00] VITALS: BP 177/72
[2019-03-11] MEDS: amLODIPine 5 MG (NORVASC) TAB PO SCH (09:45)
[2019-03-11] MEDS: meTOprolol TARTRATE 50 MG (LOPRESSOR) TAB PO SCH ×2 (09:45→20:35)
[2019-03-11] MEDS: LOSARTAN 100 MG (COZAAR) TABLET PO SCH (09:46)
[2019-03-11] MEDS: BACLOFEN 10 MG (LIORESAL) TAB PO SCH ×3 (09:46→20:36)
[2019-03-11] MEDS: GLIMEPIRIDE 2 MG (AMARYL) TAB PO SCH ×2 (09:50→17:18)
[2019-03-11 11:38] VITALS: BP 165/60
--- NOTE | 2019-03-11 12:07 | Progress Note-Hospitalist ---
Subjective HPI/CC On Admission Date Seen by Provider: Mar 11, 2019 Time Seen by Provider: 11:00 Subjective/Events-last exam Patient had a fall today at 4 a.m. without injury Was very confused at one point Patient is eating and drinking a little better Pain is much improved No bowel movement yet so we will give meds Review of Systems General: Fatigue Gastrointestinal: Constipation Musculoskeletal: back pain Objective Exam Vital Signs Vital Signs Date Time Temp Pulse Resp B/P (MAP) Pulse Ox O2 Delivery O2 Flow Rate FiO2 03/11/19 11:38 97.7 40 20 165/60 (95) 97 Room Air 03/11/19 08:00 0.00 Capillary Refill : Less Than 3 SecondsLess Than 3 Seconds General Appearance: No Apparent Distress, WD/WN HEENT: PERRL/EOMI, Pharynx Normal Neck: Full Range of Motion, Non Tender, Supple Respiratory: Chest Non Tender, Lungs Clear, Normal Breath Sounds, No Accessory Muscle Use, No Respiratory Distress Cardiovascular: Regular Rate, Rhythm, No Edema, No Murmur, Normal Peripheral Pulses Gastrointestinal: Normal Bowel Sounds, No Organomegaly, No Pulsatile Mass, Non Tender, Soft Rectal: Deferred Back: Decreased Range of Motion Extremity: Normal Capillary Refill, No Calf Tenderness, No Pedal Edema Neurologic/Psychiatric: Alert, Oriented x3, Other (TEARFUL) Reflexes: 2+ Knee (R), 2+ Knee (L), 2+ Ankle (R), 2+ Ankle (L) Skin: Normal Color, Warm/Dry Lymphatic: No Adenopathy Results/Procedures Lab Patient resulted labs reviewed. Assessment/Plan Assessment and Plan Assess & Plan/Chief Complaint Assessment: Back pain severe much improved today Constipation Fall last night at 0400 now with sitter in the room Plan: Pain control BM treatment HLIVF Diagnosis/Problems Diagnosis/Problems (1) Lumbar spinal stenosis Status: Acute Qualifiers: Neurogenic claudication status: with neurogenic claudication Qualified Codes: M48.062 - Spinal stenosis, lumbar region with neurogenic claudication (2) Hypertension Status: Acute Qualifiers: Hypertension type: essential hypertension Qualified Codes: I10 - Essential (primary) hypertension (3) Anxiety about health Status: Chronic Clinical Quality Measures DVT/VTE Risk/Contraindication: Risk Factor Score Per Nursin RFS Level Per Nursing on Admit: 2=Moderate HUANG LONDON DO Mar 11, 2019 12:07
[2019-03-11] MEDS: HYDROmorphone 2 MG/ML VIAL (DILAUDID) IVP PRN (13:06)
[2019-03-11] MEDS: SENNA W/DOCUSATE (SENOKOT S) TABLET PO SCH ×2 (13:14→20:35)
[2019-03-11] MEDS: LACTULOSE SYRUP 10GM/15ML (ENULOSE) 30ML UDC PO SCH ×2 (13:17→20:36)
[2019-03-11] MEDS: oxyCODONE/APAP 10/325MG (PERCOCET 10) TABLET PO PRN (15:02)
[2019-03-11 16:05] VITALS: BP 181/70
[2019-03-11 19:01] VITALS: BP 171/75
[2019-03-11] MEDS: ONDANSETRON 4 MG/2 ML (SDV) Z0FRAN IVP PRN (21:41)
[2019-03-12] VITALS: BP 184/63
[2019-03-12] MEDS: HYDROmorphone 2 MG/ML VIAL (DILAUDID) IVP SCH ×4 (00:02→19:15)
--- NOTE | 2019-03-12 00:24 | NUR ---
THIS RN CALLED DR. LONDON IN REGARDS TO THE PT'S BLOOD PRESSURE BEING 184/63 WITH A HEART RATE OF 59 BPM. ORDERS RECEIVED FOR CLONIDINE 0.1 MG PO Q6H PRN SYSTOLIC BLOOD PRESSURE GREATER THAN 170.
[2019-03-12] MEDS ORDERED: cloNIDine 0.1 MG (CATAPRES) TAB PO PRN (00:30)
[2019-03-12] MEDS ORDERED: cloNIDine 0.1 MG (CATAPRES) TAB ONE (01:11)
--- NOTE | 2019-03-12 01:15 | NUR ---
THIS RN CONTACTED DR. LONDON IN REGARDS TO THE PT REFUSING CLONIDINE 0.1 MG PO DUE TO ALLERGY. NEW ORDERS RECEIVED TO DC CLONIDINE 0.1 MG PO, START HYDRALAZINE 25 MG PO Q4H PRN AND MONITOR THE REST OF THE NIGHT.
[2019-03-12] MEDS: oxyCODONE/APAP 10/325MG (PERCOCET 10) TABLET PO PRN ×3 (01:17→23:53)
[2019-03-12] MEDS ORDERED: hydrALAZINE (APRESOLINE) 25 MG TAB PO PRN (01:30)
--- NOTE | 2019-03-12 01:30 | NUR ---
PT REFUSING HYDRALAZINE 25 MG PO AT THIS TIME. PERCOCET 10/325 1 TAB PO GIVEN AT THIS TIME DUE TO PT COMPLAINING OF PAIN AT A 5 ON A NUMERIC SCALE. PT STATES SHE WANTS TO "WAIT AND SEE IF THE PAIN PILL HELPS LOWER THE BLOOD PRESSURE" BEFORE TAKING THE HYDRALAZINE. WILL CONTINUE TO MONITOR.
[2019-03-12 04:00] VITALS: BP 158/82
[2019-03-12] MEDS: GLIMEPIRIDE 2 MG (AMARYL) TAB PO SCH ×2 (06:02→16:23)
[2019-03-12 08:00] VITALS: BP 177/77
[2019-03-12] MEDS: ONDANSETRON 4 MG/2 ML (SDV) Z0FRAN IVP PRN (08:02)
[2019-03-12] MEDS: LACTULOSE SYRUP 10GM/15ML (ENULOSE) 30ML UDC PO SCH ×2 (09:41→20:11)
[2019-03-12] MEDS: LOSARTAN 100 MG (COZAAR) TABLET PO SCH (09:41)
[2019-03-12] MEDS: BACLOFEN 10 MG (LIORESAL) TAB PO SCH ×3 (09:41→20:11)
[2019-03-12] MEDS: SENNA W/DOCUSATE (SENOKOT S) TABLET PO SCH ×2 (09:42→20:11)
[2019-03-12] MEDS: meTOprolol TARTRATE 50 MG (LOPRESSOR) TAB PO SCH ×2 (09:42→20:11)
[2019-03-12] MEDS: amLODIPine 5 MG (NORVASC) TAB PO SCH (09:42)
--- NOTE | 2019-03-12 10:06 | NUR ---
DR LONDON ON FLOOR AND ADVISED HER THAT PT IS REFUSING THE IV DILAUDID AND XANAX PRN -- NO NEW ORDERS
--- NOTE | 2019-03-12 10:42 | Progress Note-Hospitalist ---
Subjective HPI/CC On Admission Date Seen by Provider: Mar 12, 2019 Time Seen by Provider: 09:45 Subjective/Events-last exam Blood pressure remained high all night and nurse called me multiple times Noted trend of blood pressure that is been very high for many days Will initiate nitroglycerin paste 1/2 inch every 6 hours as needed for significantly high blood pressure Patient not having a good day had some nausea after pain pill taken Very difficult to get around because of the back pain No bowel movement yet so suppository and enema will be ordered Denies any other significant problems No falls but does have a sitter with her Very odd behaviors at times noted Review of Systems General: Fatigue Gastrointestinal: Constipation Musculoskeletal: back pain Objective Exam Vital Signs Vital Signs Date Time Temp Pulse Resp B/P (MAP) Pulse Ox O2 Delivery O2 Flow Rate FiO2 03/12/19 15:31 97.4 51 20 199/76 (117) 96 Room Air 03/11/19 08:00 0.00 Capillary Refill : Less Than 3 SecondsLess Than 3 Seconds General Appearance: No Apparent Distress, WD/WN HEENT: PERRL/EOMI, Pharynx Normal Neck: Full Range of Motion, Non Tender, Supple Respiratory: Chest Non Tender, Lungs Clear, Normal Breath Sounds, No Accessory Muscle Use, No Respiratory Distress Cardiovascular: Regular Rate, Rhythm, No Edema, No Murmur, Normal Peripheral Pulses Gastrointestinal: Normal Bowel Sounds, No Organomegaly, No Pulsatile Mass, Non Tender, Soft Rectal: Deferred Back: Decreased Range of Motion Extremity: Normal Capillary Refill, No Calf Tenderness, No Pedal Edema Neurologic/Psychiatric: Alert, Oriented x3, Other (TEARFUL) Reflexes: 2+ Knee (R), 2+ Knee (L), 2+ Ankle (R), 2+ Ankle (L) Skin: Normal Color, Warm/Dry Lymphatic: No Adenopathy Results/Procedures Lab Patient resulted labs reviewed. Assessment/Plan Assessment and Plan Assess & Plan/Chief Complaint Assessment: Back pain severe Constipation-increasing meds Fall night before last at 0400 now with sitter in the room HTN OOC Plan: Pain control BM treatment to increase HLIVF NTG paste prn SBP>180 Diagnosis/Problems Diagnosis/Problems (1) Lumbar spinal stenosis Status: Acute Qualifiers: Neurogenic claudication status: with neurogenic claudication Qualified Codes: M48.062 - Spinal stenosis, lumbar region with neurogenic claudication (2) Hypertension Status: Acute Qualifiers: Hypertension type: essential hypertension Qualified Codes: I10 - Essential (primary) hypertension (3) Anxiety about health Status: Chronic Clinical Quality Measures DVT/VTE Risk/Contraindication: Risk Factor Score Per Nursin RFS Level Per Nursing on Admit: 2=Moderate HUANG LONDON DO Mar 12, 2019 10:42
[2019-03-12 12:00] VITALS: BP 199/72
[2019-03-12] MEDS ORDERED: BISACODYL 10 MG SUPP (DULCOLAX) PR ONE (13:45)
[2019-03-12 15:31] VITALS: BP 199/76
[2019-03-12] MEDS ORDERED: amLODIPine 5 MG (NORVASC) TAB PO ONE (18:00)
[2019-03-12] MEDS ORDERED: NITROGLYCERIN 2% OINT 1 GM UNIT DOSE PACKET TOP PRN (18:00)
[2019-03-12 19:57] VITALS: BP 191/63
[2019-03-13] MEDS: HYDROmorphone 2 MG/ML VIAL (DILAUDID) IVP SCH ×3 (00:01→12:00)
[2019-03-13 00:15] VITALS: BP 193/84
[2019-03-13 04:31] VITALS: BP 184/78
[2019-03-13] MEDS: GLIMEPIRIDE 2 MG (AMARYL) TAB PO SCH (05:50)
[2019-03-13 06:19] LABS: BASOPHILS % (AUTO) 0 % (0-10); EOSINOPHILS # (AUTO) 0.2 10^3/uL (0.0-0.3); EOSINOPHILS % (AUTO) 3 % (0-10); HEMATOCRIT 38 % (35-52); HEMOGLOBIN 12.7 G/DL (11.5-16.0); LYMPHOCYTES # (AUTO) 2.4 X 10^3 (1.0-4.0); LYMPHOCYTES % (AUTO) 26 % (12-44); MEAN CORPUSCULAR HEMOGLOBIN 30 PG (25-34); MEAN CORPUSCULAR HGB CONC 34 G/DL (32-36); MEAN CORPUSCULAR VOLUME 89 FL (80-99); MEAN PLATELET VOLUME 10.2 FL (7.4-10.4); MONOCYTES # (AUTO) 0.8 X 10^3 (0.0-1.0); MONOCYTES % (AUTO) 8 % (0-12); NEUTROPHILS # (AUTO) 5.9 X 10^3 (1.8-7.8); NEUTROPHILS % (AUTO) 64 % (42-75); PLATELET COUNT 209 10^3/uL (130-400); RED CELL DISTRIBUTION WIDTH 13.4 % (10.0-14.5); WHITE BLOOD COUNT 9.3 10^3/uL (4.3-11.0)
[2019-03-13 06:47] LABS: ALBUMIN 3.1 GM/DL (3.2-4.5); BILIRUBIN,TOTAL 0.6 MG/DL (0.1-1.0); CREATININE SERUM 1.01 MG/DL (0.60-1.30); POTASSIUM 4.2 MMOL/L (3.6-5.0); TOTAL PROTEIN 5.4 GM/DL (6.4-8.2)
[2019-03-13 08:00] VITALS: BP 119/84
--- NOTE | 2019-03-13 08:55 | NUR ---
IRF Evaluation Order received to evaluate patient for the ARU. Chart review and PAS initiated. Will continue to follow patient's progress as it relates to evaluation for rehabilitation program. Thank you for this referral. Addendum: 03/13/19 at 1053 by JANUARY Sis CLARK SS Patient is ambulating (275ft, FWW) and transferring with modified independence, as well as modified independent with ADLs; therefore, she does not require intensive therapies, at this time.
[2019-03-13] MEDS ORDERED: amLODIPine 10 MG (NORVASC) TAB PO SCH (09:07)
--- NOTE | 2019-03-13 09:21 | Occupational Therapy Eval ---
OT Evaluation-General/PLF Medical Diagnosis Admission Date Mar 09, 2019 at 16:14 Medical Diagnosis: lumbar spinal stenosis Onset Date: Mar 13, 2019 Therapy Diagnosis Therapy Diagnosis: impaired ADLs and mobility Height/Weight Height (Feet): 5 Height (Inches): 7.00 Weight (Pounds): 190 Weight (Ounces): 12.8 Precautions Precautions/Isolations: Fall Prevention, Standard Precautions Safety Interventions: None Weight Bear Status Weight Bearing Restriction: Weight Bearing/Tolerated Referral Referral Reason: Activity Tolerance, Self Care, Evaluation/Treatment, Strengthening/ROM Medical History Additional Medical History per H&P: Surgeries Yes Adenoidectomy, Appendectomy, Section, Oophorectomy, Orthopedic, Tonsillectomy Respiratory No Cardiovascular Yes Hypertension Neurological No 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 System : No Female 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 Disorders: Denies, Ovarian Cyst Genitourinary No Gastrointestinal No Musculoskeletal Yes Degenerate Disk Disease, Arthritis, Chronic Back Pain Endocrine History of Endocrine Disorders: No HEENT History of HEENT Disorders: No Loss of Vision: Denies Hearing Impairment: Denies Cancer No Psychosocial History of Psychiatric Problem: Yes Behavioral Health Disorders: Anxiety Integumentary History of Skin or Integumenta: No Blood Transfusions History of Blood Disorders: No Current History per h&P: "Reason for visit/HPI PT PRESENTED TO THE HOSPITAL AFTER HAVING AN MRI OF HER LUMBAR SPINE AND PELVIS. SHE REPORTEDLY HAD SO MUCH PAIN THAT SHE WAS UNABLE TO STAND UP WITHOUT CRYING OUT IN PAIN. SHE THEN PRESENTED HERSELF TO THE EMERGENCY DEPARTMENT FOR PAIN CONTROL. PER THE ER PHYSICIAN REPORT, HER PAIN WAS NOT CONTROLLED WITH IV MED ICATION, AND THEN SHE STARTED TO HAVE EMESIS AFTER THE PAIN MEDICATION INJECTION. SHE REPORTS THAT SHE HAD NOT BEEN COMPLETELY HONEST WITH THE OFFICE ABOUT HOW HORRIBLE HER PAIN HAD BECOME, SHE WAS AFRAID THAT WE WOULD THINK SHE WAS SEEKING MEDICATION, SO SHE DID NOT REPORT THE EXTENT OF HER PAIN." Reviewed History: Yes Social History Home: Single Level Current Living Status: Significant Other Entry Into Home: Stairs Without Railing Steps Inside Home: 1 ADL-Prior Level of Function Therapy Code Descriptions/Definitions Functional [place] Measure: 0=Not Assessed/NA 4=Minimal Assistance 1=Total Assistance 5=Supervision or Setup 2=Maximal Assistance 6=Modified [place] 3=Moderate Assistance 7=Complete [place] Therapy Quality Codes: 6 Independent with activity with or without an assistive device 5 Patient requires set up or clean up by helper. Patient completes activity by themselves 4 Supervision or touching assist (CGA). [place] provide cues , steadying assist 3 The helper provides less than half the effort to complete the activity 2 The helper provides more than half the effort to complete the activity 1 Dependent. The helper does all the effort to complete an activity 7 Patient refused to complete or attempt activity 9 The patient did not perform the activity before the current illness or injury 88 Not attempted due to Medical conditions or safety concerns Functional Abilities and Goals: Independent: Patient completed the activities by him/herself, with or without an assistive device, with no assistance from a helper. Needed Some Help: Patient needed partial assistance from another person to complete activities. Dependent: A helper completed the activities for the patient. Unknown: Not Applicable: Self Care: Independent Functional Cognition: Independent DME/Equipment: Bath Chair, Grab Bars, Shower, Toilet/R[address] Drive Self: Yes OT Current Status Subjective pt agreed to OT evaluation session. pt laying in bed u rosanne OT arrival in no javier arent distress. pt stated she did not sleep well last night secondary to "watching horror stories on TV" Mental Status/Objective Patient Orientation: Person, Place, Time, Situation Attachments: Bautista Catheter Current Glasses/Contacts: Yes Hearing Aids: No Dentures/Partials: No Hand Dominance: Right Upper Extremity ROM WFL Upper Extremity Coordination WFL Upper Extremity Sensation WFL Upper Extremity Strength WFL ADL-Treatment Therapy Code Descriptions/Definitions Functional [place] Measure: 0=Not Assessed/NA 4=Minimal Assistance 1=Total Assistance 5=Supervision or Setup 2=Maximal Assistance 6=Modified [place] 3=Moderate Assistance 7=Complete [place] Therapy Quality Codes: 6 Independent with activity with or without an assistive device 5 Patient requires set up or clean up by helper. Patient completes activity by themselves 4 Supervision or touching assist (CGA). [place] provide cues , steadying assist 3 The helper provides less than half the effort to complete the activity 2 The helper provides more than half the effort to complete the activity 1 Dependent. The helper does all the effort to complete an activity 7 Patient refused to complete or attempt activity 9 The patient did not perform the activity before the current illness or injury 88 Not attempted due to Medical conditions or safety concerns Eating (FIM): 7 pt demo ability to complete ADLS/ functional mobility independently/ MOD I using RW pt perform bathing, toileting, and grooming standing at sink. pt demo ability to mixing picker tender items from from with slight pain noted in R knee. Education OT Patient Education: Progress toward Goal/Update tx plan Teaching Methods: Discussion Response to Teaching: Verbalize Understanding OT Short Term Goals Short Term Goals 1=Demonstrate adherence to instructed precautions during ADL tasks. 2=Patient will verbalize/demonstrate understanding of assistive devices/ modifications for ADL. 3=Patient will improve strength/tolerance for activity to enable patient to perform ADL's. OT Usp Goals Last Trimmer Goals 1=Demonstrate adherence to instructed precautions during ADL tasks. 2=Patient will verbalize/demonstrate understanding of assistive devices/modifications for ADL. 3=Patient will improve strength/tolerance for activity to enable patient to perform ADL's. OT Education/Plan Problem List/Assessment Assessment: No Skilled OT Needs ID'd pt demo ability to complete ADLS/ functional mobility independently/ MOD I using RW. pt perform bathing, toileting, and grooming standing at sink MOD I . pt demo good static/ dyn sitting/ standing balance and good activity tolerance. pt has equal strength on [place] UE. pt demo ability to mixing picker tender items from floor with slight pain noted in R knee. OT services not indicate secondary to pt being independent. pt agreed she is independently and does not need OT services. pt did not use RW PLOF. physical therapy to address. recommended d/c Home with . Discharge Recommendations Plan/Recommendations: Discontinue OT Therapy D/C Recommendations: Home w/ Family Support Barriers to Progress increase pain in R LE Target Placement home with Treatment Plan/Plan of Care Treatment,Training & Education: Yes Patient would benefit from OT for education, treatment and training to promote independence in ADL's, mobility, safety and/or upper extremity function for A DL's. Treatment Duration: Mar 13, 2019 Frequency: 1 time per week (pt independent. d/c ) Estimated Hrs Per Day: Other (no skilled services required ) Agreement: Yes Rehab Potential: Good Time/GCodes Start Time: 09:10 Stop Time: 09:35 Billed Treatment Time EVL 25 minutes MELISSA TORRES OT Mar 13, 2019 09:21
--- NOTE | 2019-03-13 09:44 | Physical Therapy Evaluation ---
PT Evaluation-General Medical Diagnosis Admission Date Mar 09, 2019 at 16:14 Medical Diagnosis: Lumbar stenosis with intractable back pain Onset Date: Mar 09, 2019 Therapy Diagnosis Therapy Diagnosis: debility Height/Weight Height (Feet): 5 Height (Inches): 7.00 Weight (Pounds): 190 Weight (Ounces): 12.8 Precautions Precautions/Isolations: Fall Prevention, Standard Precautions Weight Bear Status Right Lower Extremity: Right Weight Bearing/Tolerated Left Lower Extremity: Left Weight Bearing/Tolerated Referral Physician: Regino Reason for Referral: Evaluation/Treatment Medical History Pertinent Medical History: Arthritis, DM, HTN Current History ER with N & V and 2 wks of outpatient PT for LBP with no relief. Reviewed History: Yes Social History Home: Single Level Current Living Status: Significant Other Entry Into Home: Stairs Without Railing PT Steps Inside Home: 1 Prior/Core FIM Prior Level of Function Therapy Code Descriptions/Definitions Functional [place] Measure: 0=Not Assessed/NA 4=Minimal Assistance 1=Total Assistance 5=Supervision or Setup 2=Maximal Assistance 6=Modified [place] 3=Moderate Assistance 7=Complete [place] Therapy Quality Codes: 6 Independent with activity with or without an assistive device 5 Patient requires set up or clean up by helper. Patient completes activity by themselves 4 Supervision or touching assist (CGA). [place] provide cues , steadying assist 3 The helper provides less than half the effort to complete the activity 2 The helper provides more than half the effort to complete the activity 1 Dependent. The helper does all the effort to complete an activity 7 Patient refused to complete or attempt activity 9 The patient did not perform the activity before the current illness or injury 88 Not attempted due to Medical conditions or safety concerns Functional Abilities and Goals: Independent: Patient completed the activities by him/herself, with or without an assistive device, with no assistance from a helper. Needed Some Help: Patient needed partial assistance from another person to complete activities. Dependent: A helper completed the activities for the patient. Unknown: Not Applicable: Bed Mobility: 6 Transfers (B,C,W/C) (FIM): 6 Gait: 6 Stairs: 1 Indoor Mobility (Ambulation): Independent Stairs: Independent Prior Devices Use: None PT Evaluation-Current Subjective Patient initially declined PT, however, agrees after much encouragement. Pain Numeric Pain Scale: 3 Location: Right Location Body Site: Hip Pain Description: Radiating Objective Patient Orientation: Person, Time, Situation Problem Solving: Fair Attachments: Bautista Catheter ROM/Strength ROM Lower Extremities bilateral LE WFL Strength Lower Extremities 4/5 grossly bilaterally Integumentary/Posture Integumentary refer to nursing notes Bowel Incontinence: No Bladder Incontinence: Bautista Cath Posture WFL Neuromuscular (Tone, Coordination, Reflexes) grossly intact Sensory Vision: Functional Hearing: Functional Hand Dominance: Right Sensation Right Lower Extremit: Impaired Sensation Left Lower Extremity: Impaired Transfers Therapy Code Descriptions/Definitions Functional [place] Measure: 0=Not Assessed/NA 4=Minimal Assistance 1=Total Assistance 5=Supervision or Setup 2=Maximal Assistance 6=Modified [place] 3=Moderate Assistance 7=Complete [place] Transfers (B, C, W/C) (FIM): 6 Scootin Rollin Supine to/from Sit: 6 Sit to/from Stand: 6 patient dons socks with set up only Gait Mode of Locomotion: Walk Anticipated Mode of Locomotion: Walk Gait (FIM): 6 Distance (FIM): 3=150 ft Distance: 275' Gait Level of Assist: 6 Gait Assistive Device: FWW Comments/Gait Description no deviation/safe and functional Balance Sitting Static: Normal Sitting Dynamic: Normal Standing Static: Normal Standing Dynamic: Normal Assessment/Needs 73 y.o. female, will be seen short term by skilled PT to address functional mobility to ensure safe return to home at maximum LOF. Patient is inconsistent with right sided pain compliant and demonstrated good functional mobility with no deviation. Rehab Potential: Fair Post Rehab Potential-Barriers: compliance PT Short Term Goals Short Term Goals Time Frame: Mar 17, 2019 Transfers (B,C,W/C) (FIM): 6 Gait (FIM): 6 Distance (FIM): 3=150 ft Gait Distance Comment: 300' Gait Level of Assist: 6 Gait Assistive Device: FWW PT Plan Treatment/Plan Treatment Plan: Continue Plan of Care Treatment Plan: Education, Functional Activity Tessa, Functional Strength, Gait, Safety, Therapeutic Exercise, Transfers Treatment Duration: Mar 17, 2019 Frequency: 5 times per week Estimated Hrs Per Day: .25 hour per day Patient and/or Family Agrees t: Yes Safety Risks/Education Patient Education: Safety Issues Teaching Recipient: Patient Teaching Methods: Discussion Response to Teaching: Reinforcement Needed Discharge Recommendations Therapy D/C Recommendations: Home w/ Family Support Time/GCodes Time In: 846 Time Out: 859 Total Billed Treatment Time: 13 Total Billed Treatment 1 visit LisaC 13 min DESTINY CONNOR PT Mar 13, 2019 09:44
[2019-03-13] MEDS: LACTULOSE SYRUP 10GM/15ML (ENULOSE) 30ML UDC PO SCH (09:47)
[2019-03-13] MEDS: meTOprolol TARTRATE 50 MG (LOPRESSOR) TAB PO SCH (09:47)
[2019-03-13] MEDS: BACLOFEN 10 MG (LIORESAL) TAB PO SCH (09:47)
[2019-03-13] MEDS: LOSARTAN 100 MG (COZAAR) TABLET PO SCH (09:47)
[2019-03-13] MEDS: SENNA W/DOCUSATE (SENOKOT S) TABLET PO SCH (09:47)
[2019-03-13] MEDS ORDERED: OXYC1TAB12 PO ×2 (09:59)
[2019-03-13] MEDS ORDERED: ONDA4TAB11 PO ×2 (09:59)
[2019-03-13] MEDS ORDERED: BACL10TA PO ×2 (09:59)
[2019-03-13] MEDS ORDERED: ONDANSETRON 4 MG (ZOFRAN) ORAL DISSOLVE TAB PO PRN (10:00)
--- NOTE | 2019-03-13 10:00 | Discharge Inst-Complex ---
PDI Med Rec & Follow Up Appt. New Medications: Ondansetron (Ondansetron Odt) 4 Mg Tab.rapdis 4 MG PO QID PRN for NAUSEA/VOMITING-1ST LINE, #30 TAB Baclofen (Baclofen) 10 Mg Tablet 10 MG PO QID, #90 TAB Oxycodone HCl/Acetaminophen (Percocet 10-325 mg Tablet) 1 Each Tablet 2 TAB PO Q4H PRN for PAIN-MODERATE, #30 TAB Continued Medications: Alprazolam (Alprazolam) 0.5 Mg Tablet 0.5 MG PO TID PRN for ANXIETY, TAB Amlodipine Besylate (Amlodipine Besylate) 10 Mg Tablet 10 MG PO HS, TAB Atorvastatin Calcium (Atorvastatin Calcium) 10 Mg Tablet 10 MG PO HS, TAB Bisacodyl (Bisacodyl) 5 Mg Tablet.dr 5 MG PO DAILY PRN for CONSTIPATION-4TH LINE, TAB Diclofenac Sodium (Diclofenac Sodium) 100 Gm Gel..gram. TOP TID PRN for MUSCLE PAIN, EA Famotidine (Acid Psych Social Worker (FAMOTIDINE)) 20 Mg Tablet 20 MG PO DAILY PRN for HEARTBURN, TAB Fluticasone Propionate (Fluticasone Propionate) 16 Gm [place].susp 2 SPRAYS NS DAILY PRN for ALLERGIES, EA Glimepiride (Glimepiride) 4 Mg Tablet 2 MG PO BID, TAB TAKES 1/2 (4MG) TABLET Hydralazine HCl (Hydralazine HCl) 10 Mg Tablet 10 MG PO TID PRN for SBP>150, TAB Losartan Potassium (Losartan Potassium) 100 Mg Tablet 100 MG PO DAILY, TAB Metoprolol Tartrate (Metoprolol Tartrate) 50 Mg Tablet 25 MG PO BID, TAB TAKES 1/2 (50MG) TABLET Olopatadine HCl (Pazeo) 2.5 Ml Drops 1 DROP OU TID PRN for DRY EYES, DROPS Discontinued Medications: Chlorzoxazone (Chlorzoxazone) 500 Mg Tablet 500 MG PO QID PRN for MUSCLE SPASMS, TAB Tramadol HCl (Tramadol HCl) 50 Mg Tablet 25 MG PO Q4H PRN for PAIN-MODERATE, TAB Prescription: Transmitted to Pharmacy Activity, Diet and PDI Resume Normal Activity: Yes Discharge Diet: ADA Diet Diet for 24 Hours: No Alcohol Drink 6-8 Glasses of Fluid/Day: Yes Driving Instructions: No Driving for 1 Week Symptoms to Reoprt to : Appetite Changes, Fever Over 101 Degrees F, Pain/Pressure in Chest, Nausea/Vomiting, Shortness of Breath For Problems or Questions: Contact Your Physician, Go to Emergency Room DEBORAH MORALES MD Mar 13, 2019 10:00
--- NOTE | 2019-03-13 10:38 | NUR ---
ORDERS RECEIVED FOR DISCHARGE. PT IV AND HOLDEN REMOVED PER ORDERS. PT REPORTS UNABLE TO HAVE A RIDE UNTIL 1600 FROM HER . PT MADE F/U APPOINTMENT AND WILL LET STAFF KNOW WHEN RIDE IS AVAILABLE.
--- NOTE | 2019-03-13 11:35 | NUR ---
Important Message from Medicare presented, reviewed, signed and placed in patient chart. Patient voiced no intention to appeal and deny any needs or further questions at this time.
[2019-03-13] MEDS: oxyCODONE/APAP 10/325MG (PERCOCET 10) TABLET PO PRN ×2 (11:54→15:56)
[2019-03-13 12:00] VITALS: BP 156/77
--- NOTE | 2019-03-13 12:00 | NUR ---
PT ASSISTED UP TO BSC BY PCT, PT REPORTS HAVING PAIN AND SPASMS AND QUESTIONING IF MUSCLE RELAXER WAS INCREASED THAT WAS GIVEN THIS AM. PT NOTIFIED OF DOSE AND HOW OFTEN WILL RECEIVE MEDICATION. PT REPORTS BEING VERY NAUSEATED AND WILL BE SICK ONCE STAFF GETS HER UP TO BSC. PT WAS GIVEN PO ZOFRAN, PAIN MEDICATION AND PEPCID PER REQUEST.
[2019-03-13] MEDS ORDERED: BACLOFEN 10 MG (LIORESAL) TAB PO SCH (13:00)
--- NOTE | 2019-03-13 13:15 | NUR ---
DR MORALES CALLED THIS NURSE ABOUT PT APPOINTMENT TOMORROW WITH DR DESOUZA. DR MORALES NOTIFIED OF PT REPORTING TO THIS NURSE SHE DOES NOT THINK SHE WILL BE ABLE TO GO HOME NOW D/T PAIN AND MUSCLE SPASMS. DR MORALES NOTIFIED THIS NURSE THAT PATIENTS BACLOFEN DOSE WAS NOT INCREASED BUT THE FREQUENCY WAS INCREASED. DR MORALES GAVE ORDERS TO CONTINUE WITH DISCHARGE. PT WILL BE UPDATED ON PLAN OF CARE AND MEDICATIONS.
[2019-03-13 15:43] VITALS: BP 163/71
[2019-03-13] MEDS ORDERED: GLIMEPIRIDE 2 MG (AMARYL) TAB PO SCH (16:00)
--- NOTE | 2019-03-13 16:10 | NUR ---
PT STABLE AT TIME OF DISCHARGE. WRITTEN AND VERBAL D/C INSTRUCTIONS GONE OVER WITH PT PER PT REQUEST. PT GIVEN WRITTEN PRESCRIPTION. PT VERBALIZED UNDERSTANDING OF D/C INSTRUCTIONS. PT GIVEN F/U APPOINTMENTS. PT TAKEN VIA WHEELCHAIR TO PRIVATE VEHICLE BY PCT, ALL BELONGINGS SENT WITH PT. NO FURTHER NEEDS IDENTIFIED.
[2019-03-13] MEDS ORDERED: meTOprolol TARTRATE 50 MG (LOPRESSOR) TAB PO SCH (21:00)
[2019-03-14] MEDS ORDERED: D5 1/2 NS 1000 ML IV SOLUTION 1,000 ML IV ONE (02:11)
[2019-03-14] MEDS ORDERED: NS IV 1000 ML 1,000 ML ONE (12:53)
[2019-03-14] MEDS ORDERED: DIAZ5TAB PO (22:06)
[2019-03-14] MEDS ORDERED: PROC-1 PO (22:07)
== END 2019-03-13 16:10 | disposition home or self-care (01) | DRG 552 ==
LOC: EDUNIT# 14:54 → ER 14:55 → UNDOADMOB 16:35 → 4TH 16:35 → OBSVTOIN 03-09 16:14 → INTOOBSV 03-09 16:14 → UNDODISIN 03-13 16:10
PROVIDERS: ADMIT Family Medicine; ATTEND Family Medicine
DX: M48.062 Spinal stenosis, lumbar region with neurogenic claudication (principal); M51.16 Intervertebral disc disorders with radiculopathy, lumbar region; M47.26 Other spondylosis with radiculopathy, lumbar region; I12.9 Hypertensive chronic kidney disease with stage 1 through stage 4 chronic kidney disease, or unspecified chronic kidney disease; M67.853 Other specified disorders of tendon, right hip; F41.9 Anxiety disorder, unspecified; K59.00 Constipation, unspecified; F32.9 Major depressive disorder, single episode, unspecified; E78.5 Hyperlipidemia, unspecified; K21.9 Gastro-esophageal reflux disease without esophagitis; M19.91 Primary osteoarthritis, unspecified site; E11.22 Type 2 diabetes mellitus with diabetic chronic kidney disease; N18.3 Chronic kidney disease, stage 3 (moderate); W19.XXXA Unspecified fall, initial encounter; Y92.230 Patient room in hospital as the place of occurrence of the external cause; Z79.84 Long term (current) use of oral hypoglycemic drugs; Z88.2 Allergy status to sulfonamides; Z88.0 Allergy status to penicillin
CPT/HCPCS: 36415; 80048; 80053; 82962; 83690; 83735; 85025; 86141; 96361; 96374; 96375; G0378

== ENCOUNTER → 2019-03-08 | Outpatient (CLI) | payer MEDICARE, OTHER ==
[~2019-03-08] MED LIST changes: +ALPR0.5T7 PO; +AMLO10TA7 PO; +ATOR10TA66 PO; +BACL10TA PO; +BISA5TAB8 PO; +CHLO500T4 PO; +CLON0.1T; +DIAZ5TAB PO; +DICL100G31 TOP; +FAMO20TA3 PO; +FLUT16SP22 NS; +GLIM4TAB PO; +HYDR-3922 PO; +LOSA100T57 PO; +MECL12.579 PO; +METO50TA15 PO; +OLOP2.5D5 OU; +ONDA4TAB11 PO; +OXYC1TAB12 PO; +PROC-1 PO; +TRAM50TA2 PO
--- NOTE | 2019-03-08 14:36 | Diagnostic Imaging Report ---
PROCEDURE: MRI lumbar spine. TECHNIQUE: Multiplanar, multisequence MRI of the lumbar spine was performed without contrast. INDICATION: Low back pain as well as right hip and leg pain. Patient had lumbar spine surgery in 1990. COMPARISON: No prior studies are available for comparison. FINDINGS: There is mild left convexity lumbar scoliotic curvature. There is normal lordotic curvature. There is minimal retrolisthesis of L2 on L3. Vertebral body heights are maintained. No acute compression fracture is detected. Benign-appearing hemangiolipomas are identified within L1, L2, and L4 vertebral bodies. Severe multilevel degenerative disc disease is seen with variable disc space narrowing and desiccation and endplate osteophyte formation. The conus is unremarkable at the L1 level. T12-L1: Endplate osteophytes indent the ventral thecal sac, but central canal remains patent. There is gobb-hj-puyhsjuf left neural foraminal narrowing. L1-2: Broad-based disc/osteophyte complex flattens the ventral thecal sac. Central canal remains patent. There is moderate right and mild left neural foraminal stenosis. L2-3: Broad-based disc/osteophyte complex indents the ventral thecal sac and produces moderate narrowing of the canal. There is also significant narrowing of the lateral recesses bilaterally. Mild bilateral neural foraminal narrowing is present. L3-4: Broad-based disc/osteophyte complex flattens the ventral thecal sac and produces mild central canal narrowing. There is significant right and mild left lateral recess stenosis. There is severe right and mild left neural foraminal stenosis. L4-5: Broad-based disc/osteophyte complex indents the ventral thecal sac and produces moderate narrowing of the canal. There is significant bilateral lateral recess stenosis. There is moderate right and severe left neural foraminal stenosis. Hypertrophic facet changes are also noted. L5-S1: There appears to be a midline disc which appears to be extruded extending at the midline and slightly caudal to the L5-S1 disc space. This measures approximately 8 mm in diameter. This may impinge upon the right S1 nerve root origin. Central canal is patent. Neural foramina are patent. There are hypertrophic facet changes noted. Paraspinous tissues are unremarkable. IMPRESSION: 1. Severe multilevel lumbar spondylosis with multilevel central canal, lateral recess, and neural foraminal stenosis, described level by level above. There appears to be an extruded disc at the midline at L5-S1 level extending slightly caudal and likely impinging upon the origin of the right S1 nerve root. 2. No evidence of acute compression fracture. Dictated by: Dictated on workstation # [id number]
--- NOTE | 2019-03-08 18:39 | Diagnostic Imaging Report ---
PROCEDURE: MRI pelvis without contrast. TECHNIQUE: Multiplanar, multisequence MRI of the pelvis was performed without contrast. INDICATION: Low back pain and right hip pain and leg pain. EXAMINATION: MRI of the pelvis from 03/08/2019. FINDINGS: The visualized intrapelvic structures demonstrate no evidence for acute abnormality. Visualized osseous structures of the pelvis demonstrate no acute findings with no fractures appreciated. The hamstrings tendon origins bilaterally are symmetric and intact. The tendons at the greater trochanters bilaterally are intact as well. There is some edema overlying the tendons on the left which could be due to a mild focal bursitis or even tendinosis of the gluteus medius and gluteus minimus musculature and tendons. Mild edema extends into the gluteus medius muscle. There is mild edema noted within the right gluteus musculature at the greater trochanter as well, perhaps due to focal tendinosis or even a tiny partial tear. Mild edema is seen in the adductor musculature on the right, possibly due to a strain. No intramuscular tears or hematomas appreciated. There are degenerative findings within the right hip joint. There is an osseous protuberance at the anterior femoral head neck junction of the right hip. There is subchondral irregularity noted along the superoanterior acetabulum on the right. Labral tear is difficult to exclude without contrast. Within the left hip, no gross abnormalities other than mild degenerative change noted in the joint. IMPRESSION: 1. Focal tendinosis noted bilaterally at the greater trochanters involving the attaching tendons and mild adjacent muscular edema bilaterally also seen, perhaps due to muscular strain or reactive change. 2. Muscular strain suspected along the adductor musculature of the right aspect of the pelvis. 3. Osseous protuberance in the right anterior femoral head neck junction with irregularity along the superoanterior acetabulum. If there is concern for labral tear, post-arthrogram imaging of the right hip could further characterize as clinically indicated. 4. Other findings, as above. Dictated by: Dictated on workstation # [id number]
== END ==
LOC: RAD 13:12
PROVIDERS: ATTEND Nurse Practitioner Family
DX: M67.853 Other specified disorders of tendon, right hip (principal); M67.854 Other specified disorders of tendon, left hip; M89.9 Disorder of bone, unspecified; M16.11 Unilateral primary osteoarthritis, right hip; M47.817 Spondylosis without myelopathy or radiculopathy, lumbosacral region; M48.061 Spinal stenosis, lumbar region without neurogenic claudication; M25.78 Osteophyte, vertebrae; M41.86 Other forms of scoliosis, lumbar region; M51.36 Other intervertebral disc degeneration, lumbar region; Z98.890 Other specified postprocedural states
CPT/HCPCS: 72148; 72195; 82962

== ENCOUNTER 2019-03-14 20:03 | Emergency (ER) | payer MEDICARE, OTHER ==
[~2019-03-14] VITALS: Ht 170.2 cm; Wt 86.5 kg
[~2019-03-14 20:03] MED LIST changes: +ALPR0.5T7 PO; +AMLO10TA7 PO; +ATOR10TA66 PO; +BACL10TA PO; +BISA5TAB8 PO; +CHLO500T4 PO; +CLON0.1T; +DICL100G31 TOP; +FAMO20TA3 PO; +FLUT16SP22 NS; +GLIM4TAB PO; +HYDR-3922 PO; +LOSA100T57 PO; +MECL12.579 PO; +METO50TA15 PO; +OLOP2.5D5 OU; +ONDA4TAB11 PO; +OXYC1TAB12 PO; +TRAM50TA2 PO
[2019-03-14 20:52] LABS: BILIRUBIN,URINE NEGATIVE (NEGATIVE); CLARITY,URINE CLEAR; COLOR,URINE YELLOW; GLUCOSE, URINE (UA) NEGATIVE (NEGATIVE); KETONES,URINE 1+ (NEGATIVE); LEUKOCYTE ESTERASE ,URINE NEGATIVE (NEGATIVE); NITRITE,URINE NEGATIVE (NEGATIVE); PH,URINE 6.5 (5-9); PROTEIN,URINE 3+ (NEGATIVE); UROBILINOGEN,URINE NORMAL (NORMAL)
[2019-03-14] MEDS ORDERED: fentaNYL INJECTION 100 MCG/2 ML AMP IVP ONE (21:00)
[2019-03-14] MEDS ORDERED: DIAZEPAM INJ 10 MG/2 ML (VALIUM) SYR IVP ONE (21:00)
[2019-03-14] MEDS ORDERED: PROCHLORPERAZINE 10 MG/2ML INJ (COMPAZINE) IV ONE (21:00)
[2019-03-14 21:01] LABS: BACTERIA,URINE FEW /HPF; RBC,URINE RARE /HPF; WBC,URINE 0-2 /HPF
[2019-03-14] MEDS ORDERED: DIAZEPAM 5 MG (VALIUM) TABLET ONE (21:01)
[2019-03-14 21:02] LABS: RENAL EPITHELIAL CELLS,URINE RARE /HPF
--- NOTE | 2019-03-14 21:28 | NUR ---
REPORT FROM VIGNESH BAPTISTE
--- NOTE | 2019-03-14 21:31 | NUR ---
states pain free. when she drifts off to sleep, will drops sats into the 70's. when told to take a deep breath- sats to 98%.
--- NOTE | 2019-03-14 21:38 | NUR ---
PT HERE WITH SON PER SON. PT ALERT GCS 15 AND KEEPS HER EYES CLOSED. PT DENIES BACK PAIN JUST LAYING IN THE BED. SON SAYS THEY MISSED DR BASS TODAY CAUSE ERVERY TIME PT TRIED TO GET UP BACK PAIN WORSENING AND SHE WAS N/V.
--- NOTE | 2019-03-14 21:38 | NUR ---
pt alert gcs 15 keeps eyes closed. pt denies back pain. denies chest pain. denies nausea and son says no v/d since hes been here. pt denies dyspnea and no acute sighns of dyspnea noted. tanisha gs cta bilaterally. pt appears somewhat sedated. family says pt has h/o back pain. skin pale and dry. abd soft nondistended neg pain with palpation and neg pulsating massess noted. pt not on tele. vs bp machine is 177/68 ausc hr 68 reg ausc resp 20 normal recheck temp 98.6 p ox r/a is 98.
--- NOTE | 2019-03-14 21:47 | NUR ---
me and in room. d/cd the iv. we both tried to get pt sitting at bedside. we sat pt up and pt said she was going to pass out. i took vs. bp machine is 168/61 ausc hr 76 reg ausc resp 16 normal recheck temp 99.0 p ox r/a is 99. gave pt some peanut butter and pedialyte to eat and drink. attempted to get pt in w/c which we eventually did. pt kept saying " the pain the pain" " cramping". pt still appears somewhat sedated keeping her eyes closed most of time. no acute sighns of dyspnea noted. pt gcs 15. appears pt does not cooperate and wants to get up as well. just wants to lay in the bed.
[2019-03-14] MEDS ORDERED: RX-DIAZEPAM 5 MG (VALIUM) TAB PPK#4 PO STA (22:00)
[2019-03-14] MEDS ORDERED: DIAZ5TAB PO (22:06)
--- NOTE | 2019-03-14 22:06 | ED Back Pain ---
General Chief Complaint: Back Problems Stated Complaint: BACK PAIN Nursing Triage Note: brought by ems for worsening back and rt leg pain. States she was just discharged for this issue this week. Is supposed to go to [place] tomorrow for surgery consult for disk issue. States that pain is outside of leg and down back and it spasm. Took pain pill at 1800 but started vomiting Nursing Sepsis Screen: No Definite Risk History of Present Illness Date Seen by Provider: Mar 14, 2019 Time Seen by Provider: 20:15 Initial Comments 73-year-old female comes via EMS for intractable low back pain. She was dismissed from the hospital yesterday after a 5 day admission for similar symptoms. She has a scheduled appointment to see a neurosurgeon in [place], [place] today but was unable to attend because of pain and her and son report they could not get her into the car. She reports taking her Percocet at 1800 and then vomiting. She has been trying Zofran with no improvement in her nausea and vomiting. Her reports she's been taking the baclofen for muscle spasms with no improvement. She has not been ambulating since discharge to home, due to pain. She is demanding transfer to [place] for surgical repair of her back. She denies any bowel or bladder incontinence or retention. She denies any new injury since discharge from the hospital yesterday. Location: Lumbar Spine Timing/Duration: Intermittent Pain/Injury Location: Back Associated Symptoms: muscle spasms, lower back pain; No loss of bladder control, No loss of bowel control Allergies and Home Medications Allergies Coded Allergies: clonidine (Verified Allergy, Unknown, NAUSEA, 03/14/19) Penicillins (Unverified Adverse Reaction, Intermediate, 03/14/19) Sulfa (Sulfonamide Antibiotics) (Unverified Adverse Reaction, Intermediate, 03/14/19) Uncoded Allergies: ivp dye (Adverse Reaction, Intermediate, 09/15/13) Home Medications Alprazolam 0.5 Mg Tablet, 0.5 MG PO TID PRN for ANXIETY, (Reported) Amlodipine Besylate 10 Mg Tablet, 10 MG PO HS, (Reported) Atorvastatin Calcium 10 Mg Tablet, 10 MG PO HS, (Reported) Baclofen 10 Mg Tablet, 10 MG PO QID Prescribed by: DEBORAH CAMEJO on 03/13/19 0959 Bisacodyl 5 Mg Tablet.dr, 5 MG PO DAILY PRN for CONSTIPATION-4TH LINE, (Reported) Diazepam 5 Mg Tablet, 5 MG PO Q6H Prescribed by: RADHA CATHERINE on 03/14/192205 Diclofenac Sodium 100 Gm Gel..gram., TOP TID PRN for MUSCLE PAIN, (Reported) Famotidine 20 Mg Tablet, 20 MG PO DAILY PRN for HEARTBURN, (Reported) Fluticasone Propionate 16 Gm [place].susp, 2 SPRAYS NS DAILY PRN for ALLERGIES, (Reported) Glimepiride 4 Mg Tablet, 2 MG PO BID, (Reported) TAKES 1/2 (4MG) TABLET Hydralazine HCl 10 Mg Tablet, 10 MG PO TID PRN for SBP>150, (Reported) Losartan Potassium 100 Mg Tablet, 100 MG PO DAILY, (Reported) Metoprolol Tartrate 50 Mg Tablet, 25 MG PO BID, (Reported) TAKES 1/2 (50MG) TABLET Olopatadine HCl 2.5 Ml Drops, 1 DROP OU TID PRN for DRY EYES, (Reported) Ondansetron 4 Mg Tab.rapdis, 4 MG PO QID PRN for NAUSEA/VOMITING-1ST LINE Prescribed by: DEBORAH CAMEJO on 03/13/19958 Oxycodone HCl/Acetaminophen 1 Each Tablet, 2 TAB PO Q4H PRN for PAIN-MODERATE Prescribed by: DEBORAH CAMEJO on 03/13/19958 Prochlorperazine Maleate 10 Mg Tablet, 10 MG PO Q6H PRN for NAUSEA/VOMITING-1ST LINE Prescribed by: RADHA CATHERINE on 03/14/192206 Patient Home Medication List Home Medication List Reviewed: Yes Review of Systems Constitutional: no symptoms reported, see HPI Musculoskeletal: see HPI, back pain, muscle pain All Other Systems Reviewed Negative Unless Noted: Yes Past Rdvhmqy-Pzgurh-Xgttyd Hx Past Med/Social Hx: Reviewed Nursing Past Med/Soc Hx Patient Social History Alcohol Use: Denies Use Recreational Drug Use: No 2nd Hand Smoke Exposure: No Recent Foreign Travel: No Contact w/Someone Who Travel: No Recent Infectious Disease Expo: No Recent Hopitalizations: No Physical Abuse: No Sexual Abuse: No Mistreated: No Fear: No Immunizations Up To Date Tetanus Booster (TDap): More than 5yrs Date of Pneumonia Vaccine: Mar 21, 2018 Date of Influenza Vaccine: Aug 25, 2013 Past Medical History Surgeries: Yes Adenoidectomy, Appendectomy, Section, Oophorectomy, Orthopedic, Tonsillectomy Respiratory: No Cardiac: Yes Hypertension Neurological: No Female 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 Disorders: Denies, Ovarian Cyst Genitourinary: No Gastrointestinal: No Musculoskeletal: Yes Degenerate Disk Disease, Arthritis, Chronic Back Pain Endocrine: No HEENT: No Loss of Vision: Denies Hearing Impairment: Denies Cancer: No Psychosocial: Yes Anxiety Integumentary: No Blood Disorders: No Family Medical History Cancer 03 FATHER (RADICAL NECK CANCER ) Family history: Cardiovascular disease 09 BROTHER Stroke 09 BROTHER, Onset:58 ( FROM STROKE) Heart Disease, Cancer, Stroke Physical Exam Vital Signs Vital Signs - First Documented 03/14/19 03/14/19 20:03 22:24 Temp 98.4 Pulse 83 Resp 16 B/P (MAP) 175/100 (125) Pulse Ox 97 O2 Delivery Room Air Capillary Refill : Less Than 3 Seconds Height, Weight, BMI Height: 5'7.00" Weight: 190lbs. 12.8oz. [id number]; 29.8 BMI Method:Stated General Appearance: No Apparent Distress, Mild Distress (secondary to pain) HEENT: PERRL/EOMI, Pharynx Normal Neck: Full Range of Motion, Normal Inspection, Non Tender, Supple Cardiovascular: Regular Rate, Rhythm, Normal Peripheral Pulses Respiratory: Chest Non Tender, Lungs Clear Gastrointestinal: Normal Bowel Sounds, Non Tender, Soft Back: Decreased Range of Motion, Muscle Spasm, Vertebral Tenderness Extremity: Normal Capillary Refill, Normal Inspection, Normal Range of Motion, No Calf Tenderness, No Pedal Edema Neurologic/Psychiatric: Alert, Oriented x3, No Motor/Sensory Deficits, Normal Mood/Affect Skin: Normal Color, Warm/Dry Power V/V L4-S1. Normal sensation to light touch in lower extremities. Positive SLR bilat. Progress/Results/Core Measures Results/Orders Lab Results Laboratory Tests Test 03/14/19 20:18 Range/Units Urine Color YELLOW Urine Clarity CLEAR Urine pH 6.5 5-9 Urine Specific [place] 1.010 L 1.016-1.022 Urine Protein 3+ H NEGATIVE Urine Glucose (UA) NEGATIVE NEGATIVE Urine Ketones 1+ H NEGATIVE Urine Nitrite NEGATIVE NEGATIVE Urine Bilirubin NEGATIVE NEGATIVE Urine Urobilinogen NORMAL NORMAL MG/DL Urine Leukocyte Esterase NEGATIVE NEGATIVE Urine RBC (Auto) 1+ H NEGATIVE Urine RBC RARE /HPF Urine WBC 0-2 /HPF Urine Renal Epithelial Cells RARE /HPF Urine Crystals NONE /LPF Urine Bacteria FEW H /HPF Urine Casts NONE /LPF Urine Mucus NEGATIVE /LPF Urine Culture Indicated NO My Orders Orders - RADHA CATHERINE Prochlorperazine Injection (Compazine In (03/14/19 21:00) Fentanyl Injection (Sublimaze Injection (03/14/19 21:00) Ua Culture If Indicated (03/14/19 20:47) Diazepam Tablet (Valium Tablet) (03/15/19 09:00) Diazepam Tablet (Valium Tablet) (03/14/19 21:01) Rx-Diazepam Tablet (Rx-Valium Tablet) (03/14/19 22:00) Medications Given in ED Current Medications Medications Dose Ordered Sig/Sara Route Start Time Stop Time Status Last Admin Dose Admin Fentanyl Citrate 50 mcg ONCE ONCE IVP 03/14/19 21:00 03/14/19 21:01 DC 03/14/19 20:53 50 MCG Prochlorperazine Edisylate 10 mg ONCE ONCE IV 03/14/19 21:00 03/14/19 21:01 DC 03/14/19 20:53 10 MG Vital Signs/I&O 03/14/19 03/14/19 20:03 22:24 Temp 98.4 99.0 Pulse 83 76 Resp 16 16 B/P (MAP) 175/100 (125) 168/61 (96) Pulse Ox 97 99 O2 Delivery Room Air Blood Pressure Mean: 125 Progress Progress Note : Time: 20:15 Progress Note Discussed with patient and family that we need to manage her pain and get her to the rescheduled appt with neurosurgery on . Will give the IV fluids started by EMS, Compazine 10 mg IV, Fentanyl 50 mcg IV and Valium 10 mg orally. UA obtained. [address] Camejo about patient and assessment. Nothing further we can admit her to [facility]. Will attempt transfer to [place], per patient request. Talked to [facility], continue to be on diversion. 2114 Patient denies N/V. 2129 Patient report to be pain free. Resting with eyes closed. Easy to arouse. Sat up in bed, drank pedialyte and ate peanut butter. Transferred to Wheel Chair with positive re-enforcement and min assistance of 2 providers. Able to bear weight on legs and take 3-5 steps. Requesting to go home to her bed. 2199 Patient sat up in Wheelchair talking to son and . She drank 2-3 more glasses of Pedialyte. Continued to have no complaints of pain or nausea. T ransferred to car with min assistance of 2 staff members. Discharge instructions and return precautions reviewed with the patient and her family. All questions answered. Departure Impression Primary Impression: Degenerative disc disease, lumbar Additional Impression: Intractable low back pain Disposition: HOME, SELF-CARE Condition: Improved Departure-Patient Inst. Decision time for Depature: 22:00 Referrals: DEBORAH CAMEJO MD (PCP/Family) Primary Care Physician Patient Instructions: Radiculopathy (DC) Add. Discharge Instructions: Take your pain medication as prescribed by Dr. Camejo, takes Zofran with the pain medication to prevent nausea. If the Zofran isn't working, use the Compazine instead. Discontinue the baclofen. Use the Valium instead for muscle relaxant as prescribed. Keep your scheduled appointment with neurosurgeon in [place] on , call their office on Wed to see about an appt on 03/15/19. Use Ice to low back 20 min every 2 hours. Ambulate 5-10 minutes every hour while awake, with walker. Return to emergency department for new, urgent health care needs. All discharge instructions reviewed with patient and/or family. Voiced understa nding. Scripts Prochlorperazine Maleate (Compazine) 10 Mg Tablet 10 MG PO Q6H PRN for NAUSEA/VOMITING-1ST LINE, #12 TAB 0 Refills Prov: RADHA CATHERINE 03/14/19 Diazepam (Valium) 5 Mg Tablet 5 MG PO Q6H, #12 TAB 0 Refills Prov: RADHA CATHERINE 03/14/19 Copy Copies To 1: DEBORAH CAMEJO MD, AMY ARNP Mar 14, 2019 22:06
[2019-03-14] MEDS ORDERED: PROC-1 PO (22:07)
[2019-03-14 22:24] VITALS: BP 168/61
--- NOTE | 2019-03-14 22:24 | NUR ---
d/c instructions to family x 2. told to read all papers. scripts fax and paper. pt left in w/c with family. i helped pt in the car. family knows f/u. i went over the handtyped by information on the chart. iv d/cd earlier by . take home valium given. pt still appeared somewhat sedated at d/c but w/o sighns of dyspnea and hypoventilation.
[2019-03-15] MEDS ORDERED: DIAZEPAM 5 MG (VALIUM) TABLET PO SCH (09:00)
== END 2019-03-14 22:24 | disposition home or self-care (01) ==
LOC: EDUNIT# 20:03 → ER 20:04
DX: M51.36 Other intervertebral disc degeneration, lumbar region (principal); I10 Essential (primary) hypertension; F41.9 Anxiety disorder, unspecified; Z88.8 Allergy status to other drugs, medicaments and biological substances; Z88.0 Allergy status to penicillin; Z88.2 Allergy status to sulfonamides; Z82.49 Family history of ischemic heart disease and other diseases of the circulatory system; Z85.818 Personal history of malignant neoplasm of other sites of lip, oral cavity, and pharynx; Z79.51 Long term (current) use of inhaled steroids; Z79.4 Long term (current) use of insulin; Z98.890 Other specified postprocedural states; Z90.49 Acquired absence of other specified parts of digestive tract; Z90.89 Acquired absence of other organs
CPT/HCPCS: 81000; 99283

== ENCOUNTER 2019-05-27 07:21 | Emergency (ER) | payer MEDICARE, OTHER | END 2019-05-27 11:25 | disposition home or self-care (01) | LOC: ER 07:21 ==

== ENCOUNTER 2019-05-31 00:10 | Observation (INO) | payer MEDICARE, OTHER ==
[~2019-05-31] VITALS: Ht 170.2 cm; Wt 81.7 kg
[~2019-05-31 00:10] MED LIST changes: +DIAZ5TAB PO; +PROC-1 PO
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
[2019-05-31] MEDS ORDERED: WATER (STERILE) FOR INJECTION 10 ML ONE (00:29)
[2019-05-31] MEDS ORDERED: ZIPRASIDONE 20 MG INJ (GEODON) VIAL IM ONE (00:30)
--- NOTE | 2019-05-31 00:30 | NUR ---
Extensive bruising noted to bilat anterior and superior forearms.
[2019-05-31 00:31] LABS: BASOPHILS % (AUTO) 0 % (0-10); EOSINOPHILS # (AUTO) 0.1 10^3/uL (0.0-0.3); EOSINOPHILS % (AUTO) 2 % (0-10); HEMATOCRIT 40 % (35-52); HEMOGLOBIN 13.5 G/DL (11.5-16.0); LYMPHOCYTES # (AUTO) 1.1 X 10^3 (1.0-4.0); LYMPHOCYTES % (AUTO) 17 % (12-44); MEAN CORPUSCULAR HEMOGLOBIN 30 PG (25-34); MEAN CORPUSCULAR HGB CONC 34 G/DL (32-36); MEAN CORPUSCULAR VOLUME 89 FL (80-99); MEAN PLATELET VOLUME 9.2 FL (7.4-10.4); MONOCYTES # (AUTO) 0.6 X 10^3 (0.0-1.0); MONOCYTES % (AUTO) 9 % (0-12); NEUTROPHILS # (AUTO) 4.9 X 10^3 (1.8-7.8); NEUTROPHILS % (AUTO) 72 % (42-75); PLATELET COUNT 288 10^3/uL (130-400); RED CELL DISTRIBUTION WIDTH 12.7 % (10.0-14.5); WHITE BLOOD COUNT 6.8 10^3/uL (4.3-11.0)
[2019-05-31] MEDS ORDERED: WATER (STERILE) FOR INJ 10 ML BTL IV ONE (00:45)
[2019-05-31 00:50] LABS: ALBUMIN 3.9 GM/DL (3.2-4.5); BILIRUBIN,TOTAL 0.5 MG/DL (0.1-1.0); CREATININE SERUM 1.37 MG/DL (0.60-1.30); MAGNESIUM 1.7 MG/DL (1.6-2.4); POTASSIUM 3.7 MMOL/L (3.6-5.0); TOTAL PROTEIN 6.9 GM/DL (6.4-8.2)
[2019-05-31] MEDS ORDERED: NS IV 1000 ML 1,000 ML IV ONE (01:06)
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
--- NOTE | 2019-05-31 01:59 | NUR ---
This RN and PCCT assisted pt to bed side commode to obtain clean catch urine sample.
[2019-05-31 02:06] LABS: BILIRUBIN,URINE NEGATIVE (NEGATIVE); CLARITY,URINE CLEAR; COLOR,URINE YELLOW; GLUCOSE, URINE (UA) NEGATIVE (NEGATIVE); KETONES,URINE NEGATIVE (NEGATIVE); LEUKOCYTE ESTERASE ,URINE NEGATIVE (NEGATIVE); NITRITE,URINE NEGATIVE (NEGATIVE); PH,URINE 6 (5-9); PROTEIN,URINE 2+ (NEGATIVE); UROBILINOGEN,URINE NORMAL (NORMAL)
[2019-05-31 02:16] LABS: BACTERIA,URINE NEGATIVE /HPF; SQUAMOUS EPITHELIAL CELL,UR 0-2 /HPF
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
[2019-05-31] MEDS ORDERED: oxyCODONE/APAP 5/325MG (PERCOCET 5) TABLET PO ONE (02:45)
[2019-05-31 03:52] VITALS: BP 184/84
[2019-05-31 03:56] VITALS: BP 166/78
[2019-05-31 04:01] VITALS: BP 166/78
[2019-05-31] MEDS ORDERED: ZIPRASIDONE 20 MG INJ (GEODON) VIAL IM PRN (05:30)
[2019-05-31] MEDS: oxyCODONE/APAP 5/325MG (PERCOCET 5) TABLET PO PRN ×2 (07:55→11:01)
[2019-05-31 08:00] VITALS: BP 168/66
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
[2019-05-31] MEDS ORDERED: OXYC-465 PO (09:32)
[2019-05-31] MEDS ORDERED: DULO30CA49 PO (09:32)
[2019-05-31] MEDS ORDERED: TIZA4TAB4 PO (09:56)
[2019-05-31] MEDS ORDERED: MECL-106 PO (09:56)
--- NOTE | 2019-05-31 09:58 | NUR ---
PATIENT IS UNABLE TO ANSWER QUESTIONS AT THIS TIME. I CALLED AND SPOKE WITH HER CRYS. HE STATES HE GAVE A LIST TO ED HOWEVER IT IS NOT ON THE CHART OR SCANNED INTO THE RECORD AT THIS TIME. HE STATES SHE DOES HER MEDICATIONS AT HOME AND DOES NOT LET HIM MANAGE THEM. HE IS UNSURE EXACTLY WHAT SHE HAS BEEN TAKING BUT STATES DR. MORALES'S OFFICE WOULD HAVE THE MOST UP TO DATE LIST. I HAD A LIST FAXED OVER FROM DR. MORALES'S OFFICE AND UPDATED THE MED REC WITH IT. I COMPARED IT WITH THE EXT MED HX WELL. CRYS STATES THE GLIMEPIRIDE WAS RECENTLY PUT ON HOLD DUE TO LOW BLOOD SUGARS, I LEFT IT ON THE MED REC PRN AT THIS TIME.
--- NOTE | 2019-05-31 11:02 | NUR ---
CM/SS, respond to consult for inpatient behavioral health with [facility]. Completed formal referral information as requested by [facility], Mejia Kwok here to assess patient. Beds available and patient has regular Medicare, waiting on confirmation of acceptance. Patient is pleasant at this time and converses with junior technical writer, she indicates she has 'never been through anything like this before' and that she 'thought she was going to last night.' EMR reflects patient was described as having auditory and visual hallucinations and that she was aggressive, behavioral appears controlled at this time with Rx. Per patient and earlier interview by staff with spouse, there is no DPOA in place at this time.
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
[2019-05-31 12:00] VITALS: BP 163/77
--- NOTE | 2019-05-31 13:45 | NUR ---
CM/SS. Patient has been accepted for admission to [facility], transporting via EMS. EMS paperwork completed, updated unit RN to call EMS when ready. Visited with spouse Wu Maciel by phone to update. He understands patient will be at [facility] this afternoon and that they will likely call him for additional history and information. Per Wu, patient had been on a tract for back surgery of some kind with interventionalist in [facility]. She had been to pain management and was participating in a progressive care plan, first physical therapy, then injection, and next was to be surgery by Dr. Crenshaw from Dr. [address] office [address]. This is now pending because of patient's mental status. Per Wu, this is a second marriage for both parties and they each have a child. Patient's son is Mejia Bar who lives in [facility]. Wu stated he would update Mejia by phone, music writer has no contact information for Mejia.
--- NOTE | 2019-05-31 17:06 | NUR ---
patient discharged to [facility] - via EMS - Report given to florida briones at the [facility]
== END 2019-05-31 12:58 ==
LOC: EDUNIT# 00:10 → ER 00:12 → UNDOADMOB 02:18 → ICU 02:18 → 4TH 09:00 → UNDODISOB 17:08
PROVIDERS: ADMIT Family Medicine; ATTEND Family Medicine
DX: F23 Brief psychotic disorder (principal); G89.29 Other chronic pain; M54.9 Dorsalgia, unspecified; R53.81 Other malaise; F41.9 Anxiety disorder, unspecified; R45.6 Violent behavior; R41.82 Altered mental status, unspecified; E16.2 Hypoglycemia, unspecified; I10 Essential (primary) hypertension; E11.9 Type 2 diabetes mellitus without complications; M19.90 Unspecified osteoarthritis, unspecified site; Z88.0 Allergy status to penicillin; Z88.2 Allergy status to sulfonamides; Z88.8 Allergy status to other drugs, medicaments and biological substances; Z91.041 Radiographic dye allergy status; Z79.891 Long term (current) use of opiate analgesic; Z79.899 Other long term (current) drug therapy; Z90.49 Acquired absence of other specified parts of digestive tract; Z90.722 Acquired absence of ovaries, bilateral; Z80.8 Family history of malignant neoplasm of other organs or systems; Z82.3 Family history of stroke; Z82.49 Family history of ischemic heart disease and other diseases of the circulatory system
CPT/HCPCS: 36415; 80053; 81000; 82962; 83735; 85025; 99211; G0378

== ENCOUNTER → 2019-09-12 | Outpatient (CLI) | payer MEDICARE, OTHER ==
[~2019-09-12] MED LIST changes: +ACET-93 PO; +DICL75TA2 PO; +DULO30CA49 PO; +GABA-486 PO; +INSU100I14 SQ; +LACT10SO64 PO; +MAG30ORA2 PO; +METR500T PO; +ONDA8TAB13 PO; +OXYC-465 PO; +SIMV10TA3 PO; +TIZA4TAB4 PO
--- NOTE | 2019-09-12 14:21 | Diagnostic Imaging Report ---
INDICATION: Screening The current study was also evaluated with a Computer Aided Detection (CAD) system. 3-D Tomographic imaging was also performed. Comparison made with prior examination of 07/15/2018, 08/2017 and 04/20/2016. FINDINGS: There are scattered fibroglandular densities bilaterally. There are innumerable benign type calcifications in the right breast. There are a few benign type calcifications in left breast. There is no new dominant mass, spiculated lesion or suspicious calcification identified. Skin, nipples and axillae are unremarkable. IMPRESSION: Category 2 benign. ACR BI-RADS Category 2: Benign findings. Result letter will be mailed to the patient. Note: At least 10% of breast cancer is not imaged by mammography. Dictated by: Dictated on workstation # [id number]
== END ==
LOC: RAD 11:27
PROVIDERS: ATTEND Nurse Practitioner Family
DX: Z12.31 Encounter for screening mammogram for malignant neoplasm of breast (principal)
CPT/HCPCS: 77067

== ENCOUNTER 2019-09-14 08:44 | Observation (INO) | payer MEDICARE, OTHER ==
[~2019-09-14] VITALS: Ht 170 cm; Wt 82.5 kg
[~2019-09-14 08:44] MED LIST changes: -ACET-93 PO; -DICL75TA2 PO; -GABA-486 PO; -INSU100I14 SQ; -LACT10SO64 PO; -MAG30ORA2 PO; -METR500T PO; -ONDA8TAB13 PO; -SIMV10TA3 PO
[2019-09-14] MEDS ORDERED: NS IV 500 ML 500 ML IV STA (08:52)
--- NOTE | 2019-09-14 08:52 | ED GI ---
General Source of Information: Patient Exam Limitations: No Limitations History of Present Illness Date Seen by Provider: Sep 14, 2019 Time Seen by Provider: 08:50 Initial Comments 74-year-old female presents following a syncopal event. Patient reports that she is very nauseated this morning went to sit on the stool and got extremely nauseated at rate of vomit and syncope. Patient since then has had significant amount of diarrhea with multiple loose stools. Patient reports she still little bit nauseated. Patient did receive Zofran 4 mg IM in route. She does not have any abdominal pain, no fever, chills, cough, shortness of breath or other systemic complaints at this time. Allergies and Home Medications Allergies Coded Allergies: clonidine (Verified Allergy, Unknown, NAUSEA, 03/14/19) Penicillins (Unverified Adverse Reaction, Intermediate, 03/14/19) Sulfa (Sulfonamide Antibiotics) (Unverified Adverse Reaction, Intermediate, 03/14/19) Uncoded Allergies: ivp dye (Adverse Reaction, Intermediate, 09/15/13) Home Medications Acetaminophen 500 Mg Tablet, 500 MG PO PRN PRN for PAIN-MODERATE (5-7), (Reported) Alprazolam 0.5 Mg Tablet, 0.5 MG PO TID PRN for ANXIETY, (Reported) Amlodipine Besylate 10 Mg Tablet, 10 MG PO HS, (Reported) Diclofenac Sodium 100 Gm Gel..gram., 4 GM TOP QID PRN for JOINT PAIN, (Reported) Duloxetine HCl 30 Mg Capsule.dr, 30 MG PO DAILY, (Reported) Fluticasone Propionate 16 Gm [place].susp, 2 SPRAYS NS DAILY PRN for ALLERGIES, (Reported) Hydralazine HCl 10 Mg Tablet, 10 MG PO TID PRN for SBP>150, (Reported) Losartan Potassium 100 Mg Tablet, 100 MG PO DAILY, (Reported) Meclizine HCl 25 Mg Tablet, 25 MG PO TID PRN for NAUSEA, (Reported) Olopatadine HCl 2.5 Ml Drops, 1 DROP OU TID PRN for DRY EYES, (Reported) Oxycodone HCl/Acetaminophen 1 Each Tablet, 1-2 TAB PO Q4H PRN for PAIN-MODERATE, (Reported) Patient Home Medication List Home Medication List Reviewed: Yes Review of Systems Review of Systems Constitutional: No chills, No fever, No weakness EENTM: No Symptoms Reported Respiratory: Denies Cough, Denies Shortness of Air Cardiovascular: Denies Chest Pain Gastrointestinal: Denies Abdomen Distended, Denies Abdominal Pain; Diarrhea, Nausea; Denies Vomiting Genitourinary: No Symptoms Reported Musculoskeletal: no symptoms reported Skin: no symptoms reported Psychiatric/Neurological: No Symptoms Reported Past Vgpporz-Gemhfi-Svfrrl Hx Past Med/Social Hx: Reviewed Nursing Past Med/Soc Hx Patient Social History 2nd Hand Smoke Exposure: No Recent Foreign Travel: No Contact w/Someone Who Travel: No Recent Hopitalizations: No Immunizations Up To Date Tetanus Booster (TDap): More than 5yrs Date of Pneumonia Vaccine: Jun 06, 2018 Date of Influenza Vaccine: Aug 25, 2013 Past Medical History Surgeries: Yes Adenoidectomy, Appendectomy, Section, Oophorectomy, Orthopedic, Tonsillectomy Respiratory: No Cardiac: Yes Hypertension Neurological: Yes Female 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 Disorders: Denies, Ovarian Cyst Genitourinary: No Gastrointestinal: No Musculoskeletal: Yes (severe chronic back pain with right sided radicular symptoms) Degenerate Disk Disease, Arthritis, Chronic Back Pain Endocrine: No HEENT: No Loss of Vision: Denies Hearing Impairment: Denies Cancer: No Psychosocial: Yes Anxiety Integumentary: No Blood Disorders: No Family Medical History Cancer 03 FATHER (RADICAL NECK CANCER ) Family history: Cardiovascular disease 09 BROTHER Stroke 09 BROTHER, Onset:58 ( FROM STROKE) Heart Disease, Cancer, Stroke Physical Exam Vital Signs Vital Signs - First Documented 09/14/19 08:53 Temp 36.6 Pulse 74 Resp 18 B/P (MAP) 197/74 (115) Pulse Ox 99 Capillary Refill : Height/Weight/BMI Height: 5'7.00" Weight: 180lbs. 0.8oz. 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-XII nml as tested, no motor/sensory deficits, normal mood/affect, oriented x 3 Skin: normal color, warm/dry Progress/Results/Core Measures Results/Orders Lab Results Laboratory Tests Test 09/14/19 09:00 Range/Units White Blood Count 13.5 H 4.3-11.0 10^3/uL Red Blood Count 4.77 4.35-5.85 10^6/uL Hemoglobin 14.1 11.5-16.0 G/DL Hematocrit 43 35-52 % Mean Corpuscular Volume 90 80-99 FL Mean Corpuscular Hemoglobin 30 25-34 PG Mean Corpuscular Hemoglobin Concent 33 32-36 G/DL Red Cell Distribution Width 13.6 10.0-14.5 % Platelet Count 265 130-400 10^3/uL Mean Platelet Volume 10.5 H 7.4-10.4 FL Neutrophils (%) (Auto) 81 H 42-75 % Lymphocytes (%) (Auto) 10 L 12-44 % Monocytes (%) (Auto) 7 0-12 % Eosinophils (%) (Auto) 1 0-10 % Basophils (%) (Auto) 0 0-10 % Neutrophils # (Auto) 11.0 H 1.8-7.8 X 10^3 Lymphocytes # (Auto) 1.4 1.0-4.0 X 10^3 Monocytes # (Auto) 0.9 0.0-1.0 X 10^3 Eosinophils # (Auto) 0.2 0.0-0.3 10^3/uL Basophils # (Auto) 0.0 0.0-0.1 10^3/uL Sodium Level 140 135-145 MMOL/L Potassium Level 5.1 H 3.6-5.0 MMOL/L Chloride Level 108 H 98-107 MMOL/L Carbon Dioxide Level 18 L 21-32 MMOL/L Anion Gap 14 5-14 MMOL/L Blood Urea Nitrogen 43 H 7-18 MG/DL Creatinine 1.54 H 0.60-1.30 MG/DL Estimat Glomerular Filtration Rate 33 BUN/Creatinine Ratio 28 Glucose Level 162 H 70-105 MG/DL Calcium Level 9.9 8.5-10.1 MG/DL Corrected Calcium 9.7 8.5-10.1 MG/DL Total Bilirubin 0.4 0.1-1.0 MG/DL Aspartate Amino Transf (AST/SGOT) 24 5-34 U/L Alanine Aminotransferase (ALT/SGPT) 17 0-55 U/L Alkaline Phosphatase 98 40-136 U/L Total Protein 7.5 6.4-8.2 GM/DL Albumin 4.3 3.2-4.5 GM/DL Lipase 12 8-78 U/L My Orders Orders - MAGALYS PEREZ DO Cbc With Automated Diff (09/14/19 08:52) Comprehensive Metabolic Panel (09/14/19 08:52) Lipase (09/14/19 08:52) Abdomen, Flat & Upright/Decub (09/14/19 08:52) Ns Iv 500 Ml (Sodium Chloride 0.9%) (09/14/19 08:52) Ed Iv/Invasive Line Start (09/14/19 08:52) Knee, Right, 3 Views (09/14/19 09:41) Levofloxacin Tablet (Levaquin Tablet) (09/14/19 11:08) Metronidazole Tablet (Flagyl Tablet) (09/14/19 11:08) Ed Iv/Invasive Line Start (09/14/19 11:08) Ns Iv 1000 Ml (Sodium Chloride 0.9%) (09/14/19 11:08) Vital Signs/I&O 09/14/19 08:53 Temp 36.6 Pulse 74 Resp 18 B/P (MAP) 197/74 (115) Pulse Ox 99 Departure Communication (Admissions) Time/Spoke to Admitting Phy: 11:15 Impression Primary Impression: Dehydration Additional Impression: Gastroenteritis Disposition: 01 HOME, SELF-CARE Condition: Stable Admissions Decision to Admit Reason: Admit from ER (General) Decision to Admit/Date: Sep 14, 2019 Time/Decision to Admit Time: 11:15 Departure-Patient Inst. Referrals: DEBORAH MORALES MD (PCP/Family) Primary Care Physician MAGALYS PEREZ DO Sep 14, 2019 08:52 POS
[2019-09-14 09:05] LABS: BASOPHILS % (AUTO) 0 % (0-10); EOSINOPHILS # (AUTO) 0.2 10^3/uL (0.0-0.3); EOSINOPHILS % (AUTO) 1 % (0-10); HEMATOCRIT 43 % (35-52); HEMOGLOBIN 14.1 G/DL (11.5-16.0); LYMPHOCYTES # (AUTO) 1.4 X 10^3 (1.0-4.0); LYMPHOCYTES % (AUTO) 10 % (12-44); MEAN CORPUSCULAR HEMOGLOBIN 30 PG (25-34); MEAN CORPUSCULAR HGB CONC 33 G/DL (32-36); MEAN CORPUSCULAR VOLUME 90 FL (80-99); MEAN PLATELET VOLUME 10.5 FL (7.4-10.4); MONOCYTES # (AUTO) 0.9 X 10^3 (0.0-1.0); MONOCYTES % (AUTO) 7 % (0-12); NEUTROPHILS % (AUTO) 81 % (42-75); PLATELET COUNT 265 10^3/uL (130-400); RED CELL DISTRIBUTION WIDTH 13.6 % (10.0-14.5); WHITE BLOOD COUNT 13.5 10^3/uL (4.3-11.0)
[2019-09-14] MEDS ORDERED: ACET-93 PO (09:08)
[2019-09-14 09:27] LABS: ALBUMIN 4.3 GM/DL (3.2-4.5); BILIRUBIN,TOTAL 0.4 MG/DL (0.1-1.0); CALCIUM 9.9 MG/DL (8.5-10.1); CREATININE SERUM 1.54 MG/DL (0.60-1.30); POTASSIUM 5.1 MMOL/L (3.6-5.0); TOTAL PROTEIN 7.5 GM/DL (6.4-8.2)
--- NOTE | 2019-09-14 10:06 | Diagnostic Imaging Report ---
INDICATION: Fall, right knee pain. TECHNIQUE: 3 views of the right knee. COMPARISON: 05/27/2019 FINDINGS: There are severe degenerative changes in the medial compartment, moderate degenerative changes in the lateral compartment, and severe degenerative changes in the patellofemoral compartment. No acute fracture is seen in the right knee. Alignment appears normal. No joint effusion is seen. There is enthesopathy at the superior patella. There is calcific atherosclerosis. IMPRESSION: 1. Advanced tricompartmental degenerative changes in the right knee, most severe in the patellofemoral and medial compartments. 2. No fracture seen in the right knee. Dictated by: Dictated on workstation # [id number]
--- NOTE | 2019-09-14 10:19 | Diagnostic Imaging Report ---
HISTORY: Nausea and diarrhea. TECHNIQUE: Supine and upright frontal views of the abdomen. COMPARISON: None FINDINGS: The colon is predominantly gas-filled. There is a prominent loop of small bowel in the lower abdomen measuring 3 cm in diameter. No large collection of free air is seen. There are phleboliths in the pelvis. Advanced degenerative changes are seen in the lumbar spine. IMPRESSION: 1. Mildly prominent loop of small bowel in the lower abdomen, may be due to ileus given the degree of air in the colon. No large collection of free air seen. Dictated by: Dictated on workstation # [id number]
[2019-09-14] MEDS ORDERED: NS IV 1000 ML 1,000 ML IV SCH (11:08)
[2019-09-14] MEDS ORDERED: LEVOFLOXACIN 500 MG TAB (LEVAQUIN) PO STA (11:08)
[2019-09-14] MEDS ORDERED: metroNIDAZOLE 500 MG (FLAGYL) TAB PO STA (11:08)
[2019-09-14] MEDS ORDERED: CATHETER FLUSH 10 ML SYR IV PRN (12:30)
--- NOTE | 2019-09-14 12:32 | NUR ---
ADRIANA FERRELL admitted to room 426-1, with an admitting diagnosis of gatroenteritis , on 09/14/19 from ED via wheel chair , accompanied by staff .ADRIANA FERRELL introduced to surroundings, call light, bed controls, phone, TV, temperature control, lights, meal times, smoking policy, visitor policy, side rail policy, bathrooms and showers. Patient Rights given to patient in the handbook. ADRIANA FERRELL verbalizes understanding that [facility] is not responsible for the loss or damage to any personal effects or valuables that are kept in the patients posession during their hospitalization. The following Patient Care Plans and discharge were discussed with the patient. ADRIANA FERRELL verbalizes understanding of Interdisciplinary Patient Education. Patient was informed about the Rapid Response Team and its purpose.
[2019-09-14 12:42] VITALS: BP 153/70
[2019-09-14] MEDS: NS IV 1000 ML 1,000 ML IV SCH ×2 (12:53→22:25)
[2019-09-14] MEDS ORDERED: FLU QUADRIvalent (5+ YOA) 2019-2020 (AFLURIA) 0.5 ML IM ONE (13:45)
[2019-09-14] MEDS ORDERED: INSU100I14 SQ (15:11)
[2019-09-14] MEDS ORDERED: LACT10SO64 PO (15:11)
[2019-09-14] MEDS ORDERED: MAG30ORA2 PO (15:11)
[2019-09-14] MEDS ORDERED: SIMV10TA3 PO (15:11)
[2019-09-14] MEDS ORDERED: DICL75TA2 PO (15:11)
[2019-09-14] MEDS ORDERED: GABA-486 PO (15:11)
--- NOTE | 2019-09-14 15:19 | NUR ---
PATIENTS BROUGHT IN A DETAILED MEDICATION LIST. I CALLED [facility] FOR A LIST OF RECENTLY FILLED MEDICATIONS AND COMPARED IT WITH THE LIST THEY BROUGHT IN. [facility] FILLED: 09-14-19 NOVOLOG FLEXPEN SS 09-13-19 PAZEO DROPS OU DAILY (STATES SHE USES PRN DRY EYES) 07-28-19 DULOXETINE 30MG DAILY #90 07-24-19 GABAPENTIN 100MG 1AM AND 1400 2 HS (TAKES 3 QID PRN NOW, DOSE RECENTLY CHANGED) 07-23-19 AMLODIPINE 10MG DAILY #90 (TAKES AT HS) 07-17-19 LOSARTAN 100MG DAILY #90 07-12-19 SIMVASTATIN 10MG HS #90 07-06-[address] 75MG BID #180 [employer] BOTTLE SHE HAS WITH HER: 07-04-19 HYDRALAZINE 10MG TID SBP>150 OTC MEDS: MYLANTA PRN LACTULOSE BID PRN TYLENOL 500MG TID PRN
[2019-09-14 16:00] VITALS: BP 157/69
--- NOTE | 2019-09-14 19:55 | History & Physical ---
History of Present Illness History of Present Illness Reason for visit/HPI pt is a 74 y /o female who is well known to me from clinic. she states that she was exposed to a viral illness through her neighbor. Her neighbor apparent had been caring for his who was sick at home with vomiting and diarrhea, presented over to Cristina's house a few days ago and patted her hand and sat and talked to her for a while, then announced that his was sick and he needed to get back to her. She reports that her had diarrhea yesterday and then she became ill last night/early this morning and she had a syncopal episode and fell off of the toilet this morning. She states that she is feeling significantly improved this afternoon after iv fluids and iv antibiotics. she was able to tolerate clear liquid diet earlier this evening. Date of Admission Sep 14, 2019 at 11:31 Date Seen by a Provider: Sep 14, 2019 Time Seen by a Provider: 19:20 I consulted on this patient on 09/14/191919 Attending Physician Deborah Camejo MD Admitting Physician Deborah Camejo MD Consult Allergies and Home Medications Allergies Coded Allergies: clonidine (Verified Allergy, Unknown, NAUSEA, 03/14/19) Penicillins (Unverified Adverse Reaction, Intermediate, 03/14/19) Sulfa (Sulfonamide Antibiotics) (Unverified Adverse Reaction, Intermediate, 03/14/19) Uncoded Allergies: ivp dye (Adverse Reaction, Intermediate, 09/15/13) Home Medications Acetaminophen 500 Mg Tablet, 500 MG PO TID PRN for PAIN-MILD (1-4), (Reported) Amlodipine Besylate 10 Mg Tablet, 10 MG PO HS, (Reported) Diclofenac Sodium 75 Mg Tablet.dr, 75 MG PO BID, (Reported) Duloxetine HCl 30 Mg Capsule.dr, 30 MG PO DAILY, (Reported) Gabapentin 100 Mg Capsule, 300 MG PO QID PRN for NEUROPATHIC PAIN, (Reported) TAKES 3 (100MG) CAPSULES Hydralazine HCl 10 Mg Tablet, 10 MG PO TID PRN for SBP>150, (Reported) Insulin Aspart 300 Units/3 Ml Solution, SQ TIDAC, (Reported) 150-200 = 3 UNITS 201-250 = 5 UNITS 251-300 = 7 UNITS 301-350 = 9 UNITS 351- 400 =11 UNITS Lactulose 10 Gm/15 Ml Solution, 30 ML PO BID PRN for CONSTIPATION-3RD LINE, (Reported) Losartan Potassium 100 Mg Tablet, 100 MG PO DAILY, (Reported) Mag Hydrox/Al Hydrox/Simeth 30 Ml Oral.susp, 30 ML PO Q6H PRN for INDIGESTION, (Reported) Olopatadine HCl 2.5 Ml Drops, 1 DROP OU DAILY PRN for DRY EYES, (Reported) Simvastatin 10 Mg Tablet, 10 MG PO HS, (Reported) Patient Home Medication List Home Medication List Reviewed: Yes Past Mnxpqtb-Balzdp-Lzozaw Hx Past Med/Social Hx: Reviewed Nursing Past Med/Soc Hx Patient Social History Marrital Status: Living Status: lives with spouse in their home Employed/Student: retired Alcohol Use: Denies Use Number of Drinks Today: AA Recreational Drug Use: No Smoking Status: Never a Smoker 2nd Hand Smoke Exposure: No Physical Abuse Screen: No Sexual Abuse: No Recent Foreign Travel: No Contact w/other who traveled: No Recent Hopitalizations: No Recent Infectious Disease Expo: No Social History retired, lives [place] in their [place] Immunizations Up To Date Tetanus Booster (TDap): More than 5yrs Date of Pneumonia Vaccine: Jun 06, 2018 Date of Influenza Vaccine: Aug 25, 2013 Past Medical History Surgeries: Adenoidectomy, Appendectomy, Section, Hysterectomy, Oophorectomy, Orthopedic, Tonsillectomy Cardiac: High Cholesterol, Hypertension Female 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 Disorders: Denies, Ovarian Cyst Musculoskeletal: Degenerate Disk Disease, Arthritis, Chronic Back Pain Endocrine: Diabetes, Insulin dep Loss of Vision: Denies Hearing Impairment: Denies Psychosocial: Anxiety History of Blood Disorders: No Family History Reviewed and Corrections made Cancer 03 FATHER (RADICAL NECK CANCER ) Family history: Cardiovascular disease 09 BROTHER Stroke 09 BROTHER, Onset:58 ( FROM STROKE) Heart Disease, Cancer, Stroke Review of Systems Constitutional: No chills, No fever; malaise, weakness EENTM: No hearing loss, No hoarseness, No throat pain, No throat swelling Respiratory: No cough, No dyspnea on exertion, No short of breath Cardiovascular: No chest pain, No edema, No palpitations Gastrointestinal: No abdominal pain; diarrhea, nausea Genitourinary: no symptoms reported Musculoskeletal: back pain (chronic), muscle weakness Skin: other (bruising with skin tears on right arm from her fall off of the toilet) Psychiatric/Neurological: Denies Anxiety, Denies Depressed; Weakness All Other Systems Reviewed Negative Unless Noted: Yes Physical Exam Vital Signs Vital Signs - First Documented 09/14/19 09/14/19 08:53 11:47 Temp 36.6 Pulse 74 Resp 18 B/P (MAP) 197/74 (115) Pulse Ox 99 O2 Delivery Room Air Capillary Refill : Less Than 3 Seconds Height, Weight, BMI Height: 5'7.00" Weight: 180lbs. 0.8oz. 81.936986ja; 28.54 BMI Method:Stated General Appearance: No Apparent Distress, WD/WN Eyes: Bilateral Eye Normal Inspection, Bilateral Eye PERRL, Bilateral Eye EOMI HEENT: PERRL/EOMI, Pharynx Normal Neck: Full Range of Motion, Normal Inspection, Non Tender, Supple, Carotid Bruit Respiratory: Chest Non Tender, Lungs Clear, Normal Breath Sounds, No Accessory Muscle Use, No Respiratory Distress Cardiovascular: Regular Rate, Rhythm, No Edema Gastrointestinal: Non Tender, Soft, Other (hyperactive bowel sounds, nontender to palpation) Rectal: Deferred Extremity: Normal Capillary Refill, Normal Range of Motion, Non Tender, No Calf Tenderness, No Pedal Edema, Other (bruising with skin tears on right forearm) Neurologic/Psychiatric: Alert, Oriented x3, No Motor/Sensory Deficits, Normal 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 Hypertension - restarted home medication regimen - monitor blood pressures Peripheral Neuropathy - restart gabapentin Chronic renal insufficiency - should improve slightly with IV fluid hydration Diabetes Mellitus - chronic - will not restart insulin in the hospital as she is not taking in much food at this time. Hyperkalemia - repeat labs in the morning - should improve with IV fluid hydration. Leukocytosis - will repeat labs in the morning Anticipate discharge from the hospital tomorrow if her symptoms remain stable and improving over night. Admission Diagnosis Viral Gastroenteritis Nausea Emesis Diarrhea Hypertension Peripheral Neuropathy Chronic renal insufficiency Hyperkalemia Diabetes Mellitus Leukocytosis Admission Status: Observation Clinical Quality Measures DVT/VTE Risk/Contraindication: Risk Factor Score Per Nursin RFS Level Per Nursing on Admit: 4+=Very High DEBORAH CAMEJO MD Sep 14, 2019 19:55 POS
[2019-09-14 20:00] VITALS: BP 148/73
[2019-09-14] MEDS ORDERED: PATIENT MAY USE OWN MEDS, ALL MC SCH (20:00)
[2019-09-14] MEDS ORDERED: ACETAMINOPHEN 500 MG TAB (TYLENOL) PO PRN (20:00)
[2019-09-14] MEDS ORDERED: NON-FORMULARY MEDICATION 1 EA EA (Acetaminophen 500 MG) PO PRN (20:00)
[2019-09-14] MEDS: amLODIPine 10 MG (NORVASC) TAB PO SCH ×2 (20:40→21:15)
[2019-09-14] MEDS: ONDANSETRON 4 MG/2 ML (SDV) Z0FRAN IV PRN (20:40)
[2019-09-14] MEDS: GABAPENTIN 100 MG (NEURONTIN) CAP PO PRN ×2 (20:40→21:15)
[2019-09-14] MEDS: LOSARTAN 100 MG (COZAAR) TABLET PO SCH ×2 (20:40→21:15)
[2019-09-15] VITALS: BP 149/65
--- NOTE | 2019-09-15 01:05 | NUR ---
REPORT RECEIVED FROM EMILE PATEL. ASSUMED CARE OF PT AT THIS TIME. ABASEMENT HAS NOT CHANGED
[2019-09-15] MEDS: ONDANSETRON 4 MG/2 ML (SDV) Z0FRAN IV PRN (03:24)
[2019-09-15 04:00] VITALS: BP 161/68
[2019-09-15 05:46] LABS: HEMOGLOBIN 12.7 G/DL (11.5-16.0); MEAN PLATELET VOLUME 10.6 FL (7.4-10.4); RED CELL DISTRIBUTION WIDTH 13.4 % (10.0-14.5); WHITE BLOOD COUNT 6.7 10^3/uL (4.3-11.0)
[2019-09-15 06:10] LABS: ALBUMIN 3.7 GM/DL (3.2-4.5); BILIRUBIN,TOTAL 0.5 MG/DL (0.1-1.0); CALCIUM 9.1 MG/DL (8.5-10.1); CREATININE SERUM 1.03 MG/DL (0.60-1.30); POTASSIUM 4.2 MMOL/L (3.6-5.0); TOTAL PROTEIN 6.3 GM/DL (6.4-8.2)
[2019-09-15 08:00] VITALS: BP 175/73
[2019-09-15] MEDS: NS IV 1000 ML 1,000 ML IV SCH (08:14)
[2019-09-15] MEDS ORDERED: GABAPENTIN 100 MG (NEURONTIN) CAP PO PRN (08:15)
[2019-09-15] MEDS ORDERED: LOSARTAN 100 MG (COZAAR) TABLET PO SCH (09:00)
[2019-09-15] MEDS ORDERED: DULoxetine 30 MG (CYMBALTA) CAP PO SCH ×2 (09:00)
[2019-09-15] MEDS ORDERED: METR500T PO (11:21)
[2019-09-15] MEDS ORDERED: ONDA8TAB13 PO (11:21)
--- NOTE | 2019-09-15 11:24 | Discharge Inst-Complex ---
PDI Reconcile Patient Problems Problems Reviewed?: Yes Med Rec & Follow Up Appt. New Medications: Metronidazole (Flagyl) 500 Mg Tablet 500 MG PO TID, #15 TAB Ondansetron (Ondansetron Odt) 8 Mg Tab.rapdis 8 MG PO TID PRN for NAUSEA/VOMITING, #20 TAB Continued Medications: Acetaminophen (Acetaminophen) 500 Mg Tablet 500 MG PO TID PRN for PAIN-MILD (1-4), TAB Amlodipine Besylate (Amlodipine Besylate) 10 Mg Tablet 10 MG PO HS, TAB Diclofenac Sodium (Diclofenac Sodium) 75 Mg Tablet.dr 75 MG PO BID, TAB Duloxetine HCl (Duloxetine HCl) 30 Mg Capsule.dr 30 MG PO DAILY, CAP Gabapentin (Gabapentin) 100 Mg Capsule 300 MG PO QID PRN for NEUROPATHIC PAIN, CAP TAKES 3 (100MG) CAPSULES Hydralazine HCl (Hydralazine HCl) 10 Mg Tablet 10 MG PO TID PRN for SBP>150, TAB Insulin Aspart (Novolog Flexpen) 300 Units/3 Ml Solution SQ TIDAC, EA 150-200 = 3 UNITS 201-250 = 5 UNITS 251-300 = 7 UNITS 301-350 = 9 UNITS 351-400 =11 UNITS Lactulose (Constulose) 10 Gm/15 Ml Solution 30 ML PO BID PRN for CONSTIPATION-3RD LINE, EA Losartan Potassium (Losartan Potassium) 100 Mg Tablet 100 MG PO DAILY, TAB Mag Hydrox/Al Hydrox/Simeth (Mylanta Suspension) 30 Ml Oral.susp 30 ML PO Q6H PRN for INDIGESTION, ML Olopatadine HCl (Pazeo) 2.5 Ml Drops 1 DROP OU DAILY PRN for DRY EYES, DROPS Simvastatin (Simvastatin) 10 Mg Tablet 10 MG PO HS, TAB Prescription: Transmitted to Pharmacy Patient Instructions: 1 WK FOLLOW UP [facility] Activity, Diet and PDI Resume Normal Activity: Yes Discharge Diet: Other Diet (CLEAR LIQUID TODAY, SOFT DIET ON WEDNESDAY, ADVANCE TOLERATED THEREAFTER) Drink 6-8 Glasses of Fluid/Day: Yes Driving Instructions: No Driving for 24 Hours Return to The Hospital For: ANY CONCER FOR LIFETHREATENING ILLNESS, INJURY, OR OTHER CONCERNS OF WORSENING ILLNESS. Symptoms to Reoprt to : Appetite Changes, Fever Over 101 Degrees F, Pain/Pressure in Chest, Dizziness/Fainting, Nausea/Vomiting For Problems or Questions: Contact Your Physician, Go to Emergency Room Infection Signs and Symptoms: Temperature Above 101 F DEBORAH MORALES MD Sep 15, 2019 11:23 POS
[2019-09-15 12:00] VITALS: BP 154/71
[2019-09-15] MEDS ORDERED: FLU QUADRIvalent (5+ YOA) 2019-2020 (AFLURIA) 0.5 ML IM ONE (13:52)
[2019-09-15 14:26] VITALS: BP 154/71
[2019-09-15] MEDS ORDERED: amLODIPine 10 MG (NORVASC) TAB PO SCH (21:00)
== END 2019-09-15 14:28 | disposition home or self-care (01) ==
LOC: EDUNIT# 08:44 → ER 08:46 → 4TH 11:31
PROVIDERS: ADMIT Family Medicine; ATTEND Family Medicine
DX: A08.4 Viral intestinal infection, unspecified (principal); E11.42 Type 2 diabetes mellitus with diabetic polyneuropathy; I10 Essential (primary) hypertension; E11.22 Type 2 diabetes mellitus with diabetic chronic kidney disease; N18.9 Chronic kidney disease, unspecified; E87.5 Hyperkalemia; E78.00 Pure hypercholesterolemia, unspecified; M19.90 Unspecified osteoarthritis, unspecified site; G89.29 Other chronic pain; M54.9 Dorsalgia, unspecified; F41.9 Anxiety disorder, unspecified; D72.829 Elevated white blood cell count, unspecified; Z88.0 Allergy status to penicillin; Z88.2 Allergy status to sulfonamides; Z88.8 Allergy status to other drugs, medicaments and biological substances; Z91.041 Radiographic dye allergy status; Z79.4 Long term (current) use of insulin; Z79.899 Other long term (current) drug therapy; Z79.891 Long term (current) use of opiate analgesic; Z82.49 Family history of ischemic heart disease and other diseases of the circulatory system; Z82.3 Family history of stroke; Z80.8 Family history of malignant neoplasm of other organs or systems; Z90.710 Acquired absence of both cervix and uterus; Z90.721 Acquired absence of ovaries, unilateral
CPT/HCPCS: 36415; 73562; 74019; 80053; 83690; 85025; 85027; 90471; 96360; 96361; G0378

== ENCOUNTER 2020-02-19 18:28 | Inpatient (IN) | payer MEDICARE, OTHER ==
[~2020-02-19] VITALS: Ht 170.1 cm; Wt 84.8 kg
[~2020-02-19 18:28] MED LIST changes: +ACET-93 PO; +DICL75TA2 PO; +GABA-486 PO; -GLIM4TAB PO; +GLIM4TAB5 PO; +INSU100I14 SQ; +LACT10SO64 PO; +MAG30ORA2 PO; -MECL-106 PO; +MECL-149 PO; +MECL-172 PO; -MECL12.579 PO; +METR500T PO; +ONDA8TAB13 PO; +SIMV10TA26 PO; -TRAM50TA2 PO; +TRM50T PO
[2020-02-19] MEDS ORDERED: fentaNYL INJECTION 100 MCG/2 ML AMP IVP STA (19:49)
[2020-02-19] MEDS ORDERED: KETOROLAC 30 MG/ML VIAL IVP STA (19:49)
[2020-02-19 19:58] LABS: BASOPHILS % (AUTO) 0 % (0-10); EOSINOPHILS # (AUTO) 0.2 10^3/uL (0.0-0.3); EOSINOPHILS % (AUTO) 3 % (0-10); HEMATOCRIT 44 % (35-52); LYMPHOCYTES # (AUTO) 2.1 X 10^3 (1.0-4.0); LYMPHOCYTES % (AUTO) 29 % (12-44); MEAN CORPUSCULAR HEMOGLOBIN 29 PG (25-34); MEAN CORPUSCULAR HGB CONC 34 G/DL (32-36); MEAN CORPUSCULAR VOLUME 87 FL (80-99); MEAN PLATELET VOLUME 10.4 FL (7.4-10.4); MONOCYTES # (AUTO) 0.6 X 10^3 (0.0-1.0); MONOCYTES % (AUTO) 7 % (0-12); NEUTROPHILS # (AUTO) 4.5 X 10^3 (1.8-7.8); NEUTROPHILS % (AUTO) 61 % (42-75); PLATELET COUNT 231 10^3/uL (130-400); RED CELL DISTRIBUTION WIDTH 13.6 % (10.0-14.5); WHITE BLOOD COUNT 7.4 10^3/uL (4.3-11.0)
--- NOTE | 2020-02-19 19:59 | ED Back Pain ---
General Chief Complaint: Back Problems Stated Complaint: BACK PAIN,HTN Nursing Triage Note: PT PRESENTS TO ED WITH COMPLAINTS OF CHRONIC BACK PAIN THAT HAS INCREASED IN SEVERITY SINCE 02/08/20. PT REPORTS SHE LIGHTLY TWISTED HER ANKLE THEN AND HAS HAD INCREASED BACK PAIN SINCE. Nursing Sepsis Screen: No Definite Risk Source of Information: Patient Exam Limitations: No Limitations History of Present Illness Date Seen by Provider: February 19, 2020 Time Seen by Provider: 19:17 Initial Comments Here with unrelenting back pain that has been going on since 07 February. This actually goes back to previous to March of last year. She had an MRI at that time that showed L5-S1 disc protrusion and impingement on the right S1 nerve root. She has been followed by neurosurgery, Dr. Crenshaw in [place]. She apparently had physical therapy but no surgery. She states he would not operate on her for some reason. Pain has been worse recently and acetaminophen is not helping. Family/home health nurse had called Dr. Camejo's office who recommended that she follow up in facility with neurosurgery. They presented here via EMS for evaluation of the pain. No recent falls although states that she had a fall a couple months ago. She complains of pain that goes from the right low back all over down to her foot. Pain is worse with movement or touch. Denies fevers. No bowel or bladder incontinence. The only pain medicine that she is currently on is acetaminophen and gabapentin. Timing/Duration: Other (2 weeks worsening) Severity: Moderate, Severe Pain/Injury Location: Back Radiation: Buttocks, Feet, Lower Legs, Upper Legs Method of Injury: Unknown Modifying Factors: Improves With Immobilization; Worse With Movement Associated Symptoms: muscle spasms; No fever, No tingling in legs/feet, No sensory/motor loss; lower back pain; No loss of bladder control, No loss of bowel control Allergies and Home Medications Allergies Coded Allergies: clonidine (Verified Allergy, Unknown, NAUSEA, 03/14/19) Penicillins (Unverified Adverse Reaction, Intermediate, 03/14/19) Sulfa (Sulfonamide Antibiotics) (Unverified Adverse Reaction, Intermediate, 03/14/19) Uncoded Allergies: ivp dye (Adverse Reaction, Intermediate, 09/15/13) Home Medications Acetaminophen 500 Mg Tablet, 500 MG PO TID PRN for PAIN-MILD (1-4), (Reported) Amlodipine Besylate 10 Mg Tablet, 10 MG PO HS, (Reported) Diclofenac Sodium 75 Mg Tablet.dr, 75 MG PO BID, (Reported) Duloxetine HCl 30 Mg Capsule.dr, 30 MG PO DAILY, (Reported) Gabapentin 100 Mg Capsule, 300 MG PO QID PRN for NEUROPATHIC PAIN, (Reported) TAKES 3 (100MG) CAPSULES Hydralazine HCl 10 Mg Tablet, 10 MG PO TID PRN for SBP>150, (Reported) Insulin Aspart 300 Units/3 Ml Solution, SQ TIDAC, (Reported) 150-200 = 3 UNITS 201-250 = 5 UNITS 251-300 = 7 UNITS 301-350 = 9 UNITS 351- 400 =11 UNITS Lactulose 10 Gm/15 Ml Solution, 30 ML PO BID PRN for CONSTIPATION-3RD LINE, (Reported) Losartan Potassium 100 Mg Tablet, 100 MG PO DAILY, (Reported) Mag Hydrox/Al Hydrox/Simeth 30 Ml Oral.susp, 30 ML PO Q6H PRN for INDIGESTION, (Reported) Metronidazole 500 Mg Tablet, 500 MG PO TID Prescribed by: DEBORAH CAMEJO on 09/15/19 1121 Olopatadine HCl 2.5 Ml Drops, 1 DROP OU DAILY PRN for DRY EYES, (Reported) Ondansetron 8 Mg Tab.rapdis, 8 MG PO TID PRN for NAUSEA/VOMITING Prescribed by: DEBORAH CAMEJO on 09/15/19 1121 Simvastatin 10 Mg Tablet, 10 MG PO HS, (Reported) Patient Home Medication List Home Medication List Reviewed: Yes Review of Systems Constitutional: see HPI; No chills, No fever EENTM: no symptoms reported Respiratory: no symptoms reported Cardiovascular: no symptoms reported Gastrointestinal: No abdominal pain, No nausea, No vomiting Genitourinary: no symptoms reported Musculoskeletal: see HPI, back pain, joint pain, muscle pain, muscle stiffness Skin: No change in color, No lesions Psychiatric/Neurological: See HPI, Anxiety All Other Systems Reviewed Negative Unless Noted: Yes Past Okeyekp-Uvmevb-Kolinn Hx Past Med/Social Hx: Reviewed Nursing Past Med/Soc Hx Patient Social History Alcohol Use: Denies Use Recreational Drug Use: No Smoking Status: Never a Smoker 2nd Hand Smoke Exposure: No Recent Foreign Travel: No Contact w/Someone Who Travel: No Recent Infectious Disease Expo: No Recent Hopitalizations: No Physical Abuse: No Sexual Abuse: No Mistreated: No Fear: No Immunizations Up To Date Tetanus Booster (TDap): More than 5yrs Date of Pneumonia Vaccine: Jun 06, 2018 Date of Influenza Vaccine: Aug 25, 2013 Past Medical History Surgeries: Yes (BACK SX) Adenoidectomy, Appendectomy, Section, Hysterectomy, Oophorectomy, Orthopedic, Tonsillectomy Respiratory: No Cardiac: Yes High Cholesterol, Hypertension Neurological: No Female 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 Disorders: Denies, Ovarian Cyst Genitourinary: No Gastrointestinal: No Musculoskeletal: Yes (severe chronic back pain with right sided radicular symptoms) Degenerate Disk Disease, Arthritis, Chronic Back Pain Endocrine: Yes Diabetes, Insulin dep HEENT: No Loss of Vision: Denies Hearing Impairment: Denies Cancer: No Psychosocial: Yes Anxiety Integumentary: No Blood Disorders: No Family Medical History Reviewed Nursing Family Hx Cancer 03 FATHER (RADICAL NECK CANCER ) Family history: Cardiovascular disease 09 BROTHER Stroke 09 BROTHER, Onset:58 ( FROM STROKE) Heart Disease, Cancer, Stroke Physical Exam Vital Signs Vital Signs - First Documented 02/19/20 18:34 Temp 36.3 Pulse 58 Resp 18 B/P (MAP) 229/81 (130) Pulse Ox 97 Capillary Refill : Less Than 3 Seconds Height, Weight, BMI Height: 5'7.00" Weight: 180lbs. 0.8oz. 81.898802jk; 27.00 BMI Method:Stated General Appearance: No Apparent Distress, WD/WN HEENT: PERRL/EOMI, Pharynx Normal Neck: Non Tender, Supple Cardiovascular: Regular Rate, Rhythm, No Murmur Respiratory: Lungs Clear, Normal Breath Sounds Gastrointestinal: Non Tender, Soft Back: Other (right-sided tenderness with right hip tenderness) Extremity: Pelvis Stable, Other (pain to right leg anywhere touched without swelling or erythema) Neurologic/Psychiatric: Alert, Oriented x3 Skin: Normal Color, Warm/Dry Progress/Results/Core Measures Results/Orders Lab Results Laboratory Tests Test 02/19/20 19:37 Range/Units White Blood Count 7.4 4.3-11.0 10^3/uL Red Blood Count 5.11 4.35-5.85 10^6/uL Hemoglobin 15.0 11.5-16.0 G/DL Hematocrit 44 35-52 % Mean Corpuscular Volume 87 80-99 FL Mean Corpuscular Hemoglobin 29 25-34 PG Mean Corpuscular Hemoglobin Concent 34 32-36 G/DL Red Cell Distribution Width 13.6 10.0-14.5 % Platelet Count 231 130-400 10^3/uL Mean Platelet Volume 10.4 7.4-10.4 FL Neutrophils (%) (Auto) 61 42-75 % Lymphocytes (%) (Auto) 29 12-44 % Monocytes (%) (Auto) 7 0-12 % Eosinophils (%) (Auto) 3 0-10 % Basophils (%) (Auto) 0 0-10 % Neutrophils # (Auto) 4.5 1.8-7.8 X 10^3 Lymphocytes # (Auto) 2.1 1.0-4.0 X 10^3 Monocytes # (Auto) 0.6 0.0-1.0 X 10^3 Eosinophils # (Auto) 0.2 0.0-0.3 10^3/uL Basophils # (Auto) 0.0 0.0-0.1 10^3/uL Erythrocyte Sedimentation Rate 7 0-30 MM/HR Sodium Level 141 135-145 MMOL/L Potassium Level 4.6 3.6-5.0 MMOL/L Chloride Level 109 H 98-107 MMOL/L Carbon Dioxide Level 21 21-32 MMOL/L Anion Gap 11 5-14 MMOL/L Blood Urea Nitrogen 32 H 7-18 MG/DL Creatinine 1.05 0.60-1.30 MG/DL Estimat Glomerular Filtration Rate 51 BUN/Creatinine Ratio 30 Glucose Level 116 H 70-105 MG/DL Calcium Level 9.6 8.5-10.1 MG/DL Corrected Calcium 9.6 8.5-10.1 MG/DL Total Bilirubin 0.5 0.1-1.0 MG/DL Aspartate Amino Transf (AST/SGOT) 19 5-34 U/L Alanine Aminotransferase (ALT/SGPT) 10 0-55 U/L Alkaline Phosphatase 96 40-136 U/L C-Reactive Protein High Sensitivity 0.16 0.00-0.50 MG/DL Total Protein 7.1 6.4-8.2 GM/DL Albumin 4.0 3.2-4.5 GM/DL My Orders Orders - JAI DOMINGUEZ MD Cbc With Automated Diff (02/19/20 19:49) Comprehensive Metabolic Panel (02/19/20 19:49) Hs C Reactive Protein (02/19/20 19:49) Erythrocyte Sedimentation Rate (02/19/20 19:49) Pelvis With Right Hip 2-3views (02/19/20 19:49) Ct Lumbar Spine Wo (02/19/20 19:49) Ed Iv/Invasive Line Start (02/19/20 19:49) Fentanyl Injection (Sublimaze Injection (02/19/20 19:49) Ketorolac Injection (Toradol Injection) (02/19/20 19:49) Fentanyl Injection (Sublimaze Injection (02/19/20 21:30) Hydralazine Injection (Apresoline Inject (02/19/20 21:45) Ekg Tracing (02/19/20 21:37) Medications Given in ED Current Medications Medications Dose Ordered Sig/Sara Route Start Time Stop Time Status Last Admin Dose Admin Fentanyl Citrate 50 mcg ONCE ONCE IVP 02/19/20 21:30 02/19/20 21:31 DC 02/19/20 21:45 50 MCG Vital Signs/I&O 02/19/20 18:34 Temp 36.3 Pulse 58 Resp 18 B/P (MAP) 229/81 (130) Pulse Ox 97 Blood Pressure Mean: 130 Progress Progress Note : Progress Note Seen and evaluated. I did discuss the case with Dr. Camejo. She had recommended follow-up with facility with spine surgery capability and patient came here. She is having unrelenting pain. We will check basic labs and get CT of the lumbar spine and x-ray the right hip and pelvis given her presenting symptoms and history of fall a couple months ago. IV, labs, Toradol 15 mg IV and fentanyl 25 g IV ordered. Monitor patient. 2137: That it CT of the abdomen and pelvis well. Labs and CTs reviewed. Patient's pain went down to 7 out of 10 from 9 out of 10. She does have fairly significant degeneration of the lumbar spine as well as both hips with right greater than left. Patient also noted to have rather significant hypertension that we believed would improve with pain medicines but has not. She has been 240s systolic. Hydralazine 20 mg IV ordered. No emergent surgical conditions noted. Patient has intractable low back and right hip pain as well as malignant hypertension. I did discuss the case with Dr. Camejo. She accepts patient for admission, inpatient status due to above. We will continue hydralazine when necessary and continue the prescribed pain medicines. We will also continue fentanyl and Toradol as needed. I did discuss the case with and he appreciates the evaluation and admission. Patient is also appreciative of the plan. She agrees with admission. I did inform both of the degeneration of the hip as well as the lumbar spine. Initial ECG Impression Date: February 19, 2020 Initial ECG Impression Time: 21:46 Initial ECG Rate: 51 Initial ECG Rhythm: Normal Sinus Comment Sinus rhythm with normal axis. No evidence of ST elevation [place]. Similar to prev ious of 09/15/13. Interpreted by me. Diagnostic Imaging Diagonstic Imaging: Xray Plain Films/CT/US/NM/MRI: pelvis, hip Comments [facility] [place] NAME: ADRIANA FERRELL [facility] REC#: [id number] PT STATUS: REG ER : 1945 PHYSICIAN: JAI DOMINGUEZ MD ADMIT DATE: 02/19/20/ER Signed Date of Exam:02/19/20 PELVIS WITH RIGHT HIP 2-3VIEWS INDICATION: Chronic back pain. Right hip and thigh pain. FINDINGS: There are moderate to advanced osteoarthritic changes present within both hips. The proximal femurs demonstrated no evidence of an acute fracture and femoral head morphology appears appropriate. There is no diastases of the pubic symphysis or SI joints. Pelvic ring appears intact. IMPRESSION: 1. Moderate to advanced bilateral hip osteoarthritis without evidence of acute process. Dictated by: Dictated on workstation # [id number] Dict: 02/19/202027 Trans: 02/19/202106 [facility] [id number] Interpreted by: CONSTANCE FORD MD Electronically signed by: CONSTANCE FORD MD 02/19/202106 Diagonstic Imaging: CT Plain Films/CT/US/NM/MRI: other Comments : 1945 PHYSICIAN: JAI DOMINGUEZ MD ADMIT DATE: 02/19/20/ER Signed Date of Exam:02/19/20 CT LUMBAR SPINE WO PROCEDURE: CT lumbar spine without contrast. TECHNIQUE: Multiple contiguous axial images were obtained through the lumbar spine without the use of intravenous contrast. Sagittal and coronal reformations were then performed. Auto Exposure Controls were utilized during the CT exam to meet ALARA standards for radiation dose reduction. INDICATION: History of chronic back pain with recent increase in back pain severity. COMPARISON is made with a prior CT examination from 05/27/2019. FINDINGS: There has been no interval change in alignment when compared to the prior examination. There is a very slight anterolisthesis of L4 on 5 due to facet arthropathy. There is minimal retrolisthesis of L1 on 2. The facets are normally aligned. There are no findings of a pars defect. Vertebral body heights are maintained. There are no findings of an acute lumbar fracture though there are advanced multilevel degenerative endplate changes present throughout the lumbar spine. At CT imaging there is no high-grade lower thoracic canal stenosis. At L1-2, there is partially calcified posterior disc osteophyte complex with resultant mild to moderate narrowing of the central canal. There also appears to be tqfo-ta-dvnbmqey narrowing of both neural foramen. At L2-L3 there is advanced disc space height loss with endplate spurring. There is also facet arthropathy. Mild to moderate narrowing of the central canal and right lateral recess. There is moderate right and ubty-ad-lnovbjen left foraminal stenosis. At L3-L4 there is endplate spurring, facet arthropathy and ligamentous thickening present with moderate narrowing of the central canal. There is also moderate narrowing of both neural foramen. At L4-L5 there is advanced facet arthropathy present. There is endplate spurring. There is moderate to severe narrowing of the central canal. There is severe narrowing of both lateral recesses and severe narrowing of both neural foramen. At L5-S1 there is no significant canal or lateral recess stenosis. Facet arthropathy and endplate spurring result in moderate narrowing of both neural foramen. The visualized bones of the pelvis demonstrate no acute process. Paraspinal soft tissues are unremarkable. There are atherosclerotic calcifications within a normal caliber aorta. Kidneys appear nonobstructed. There is no retroperitoneal adenopathy. IMPRESSION: 1. Advanced multilevel lumbar degenerative disc disease and facet arthropathy without CT findings of an acute osseous injury or suspicious marrow replacing lesion. 2. Variable degrees of central canal, lateral recess and neural femoral stenosis throughout the lumbar spine are detailed above level by level appearing most advanced at L4-L5. Dictated by: Dictated on workstation # [id number] Dict: 02/19/202029 Trans: 02/19/202105 [facility] [id number] Interpreted by: CONSTANCE FORD MD Electronically signed by: CONSTANCE FORD MD 02/19/202105 Diagonstic Imaging: CT Plain Films/CT/US/NM/MRI: abdomen, pelvis Comments [facility], [place] NAME: ADRIANA FERRELL [facility] REC#: [id number] PT STATUS: REG ER : 1945 PHYSICIAN: RADHA CATHERINE ADMIT DATE: 02/19/20/ER Signed Date of Exam:02/19/20 CT ABDOMEN/PELVIS WO PROCEDURE: CT abdomen and pelvis without contrast. TECHNIQUE: Multiple contiguous axial images were obtained through the abdomen and pelvis without the use of intravenous contrast. Auto Exposure Controls were utilized during the CT exam to meet ALARA standards for radiation dose reduction. INDICATION: Right upper quadrant pain. FINDINGS: The lung bases demonstrate no infiltrate or consolidation. There is no effusion. The liver demonstrates no evidence of a focal intrahepatic abnormality. The gallbladder mildly distended without radiodense gallstone or CT findings of gallbladder wall thickening. There is no abnormal biliary dilatation. Spleen is normal in size. The pancreas is unremarkable. There is no adrenal mass. The kidneys appear nonobstructed without evidence of urolithiasis. Small and large bowel normal in caliber without evidence of bowel obstruction. There is a moderate to large degree of stool throughout the colon without evidence of abnormal colonic thickening or pericolonic fat stranding. There are no findings of free fluid. There is no evidence of abscess. The patient is status post hysterectomy. Urinary bladder distended. There are atherosclerotic calcifications within a normal caliber aorta. There are advanced degenerative features within the lumbar spine. IMPRESSION: 1. Mild distention of the gallbladder without radiodense gallstone or findings of biliary dilatation. 2. Distended urinary bladder. 3. No findings of urolithiasis or hydronephrosis. 4. No bowel obstruction. There is a moderate to large degree of stool throughout the colon suggesting constipation. There is no abnormal colonic thickening. 5. No findings of focal inflammation within the omentum or mesentery or findings of free fluid. Dictated by: Dictated on workstation # [id number] Dict: 02/19/202039 Trans: 02/19/202118 [facility] [id number] Interpreted by: CONSTANCE FORD MD Electronically signed by: CONSTANCE FORD MD 02/19/202118 Departure Communication (Admissions) Time/Spoke to Admitting Phy: 21:38 Impression Primary Impression: Malignant hypertension Additional Impressions: Intractable low back pain intractable right hip pain Disposition: ADMITTED INPATIENT Condition: Stable Admissions Decision to Admit Reason: Admit from ER (General) Decision to Admit/Date: February 19, 2020 Time/Decision to Admit Time: 21:38 Departure-Patient Inst. Referrals: DEBORAH CAMEJO MD (PCP/Family) Primary Care Physician JAI DOMINGUEZ MD February 19, 2020 19:59
[2020-02-19 20:11] LABS: BILIRUBIN,TOTAL 0.5 MG/DL (0.1-1.0); CALCIUM 9.6 MG/DL (8.5-10.1); CREATININE SERUM 1.05 MG/DL (0.60-1.30); POTASSIUM 4.6 MMOL/L (3.6-5.0); TOTAL PROTEIN 7.1 GM/DL (6.4-8.2)
--- NOTE | 2020-02-19 20:34 | Diagnostic Imaging Report ---
INDICATION: Chronic back pain. Right hip and thigh pain. FINDINGS: There are moderate to advanced osteoarthritic changes present within both hips. The proximal femurs demonstrated no evidence of an acute fracture and femoral head morphology appears appropriate. There is no diastases of the pubic symphysis or SI joints. Pelvic ring appears intact. IMPRESSION: 1. Moderate to advanced bilateral hip osteoarthritis without evidence of acute process. Dictated by: Dictated on workstation # [id number]
[2020-02-19 20:41] LABS: ERYTHROCYTE SEDIMENTATION RATE 7 MM/HR (0-30)
--- NOTE | 2020-02-19 20:46 | Diagnostic Imaging Report ---
PROCEDURE: CT lumbar spine without contrast. TECHNIQUE: Multiple contiguous axial images were obtained through the lumbar spine without the use of intravenous contrast. Sagittal and coronal reformations were then performed. Auto Exposure Controls were utilized during the CT exam to meet ALARA standards for radiation dose reduction. INDICATION: History of chronic back pain with recent increase in back pain severity. COMPARISON is made with a prior CT examination from 05/27/2019. FINDINGS: There has been no interval change in alignment when compared to the prior examination. There is a very slight anterolisthesis of L4 on 5 due to facet arthropathy. There is minimal retrolisthesis of L1 on 2. The facets are normally aligned. There are no findings of a pars defect. Vertebral body heights are maintained. There are no findings of an acute lumbar fracture though there are advanced multilevel degenerative endplate changes present throughout the lumbar spine. At CT imaging there is no high-grade lower thoracic canal stenosis. At L1-2, there is partially calcified posterior disc osteophyte complex with resultant mild to moderate narrowing of the central canal. There also appears to be bunc-ry-vyboszfz narrowing of both neural foramen. At L2-L3 there is advanced disc space height loss with endplate spurring. There is also facet arthropathy. Mild to moderate narrowing of the central canal and right lateral recess. There is moderate right and zjqv-sk-xgddfsel left foraminal stenosis. At L3-L4 there is endplate spurring, facet arthropathy and ligamentous thickening present with moderate narrowing of the central canal. There is also moderate narrowing of both neural foramen. At L4-L5 there is advanced facet arthropathy present. There is endplate spurring. There is moderate to severe narrowing of the central canal. There is severe narrowing of both lateral recesses and severe narrowing of both neural foramen. At L5-S1 there is no significant canal or lateral recess stenosis. Facet arthropathy and endplate spurring result in moderate narrowing of both neural foramen. The visualized bones of the pelvis demonstrate no acute process. Paraspinal soft tissues are unremarkable. There are atherosclerotic calcifications within a normal caliber aorta. Kidneys appear nonobstructed. There is no retroperitoneal adenopathy. IMPRESSION: 1. Advanced multilevel lumbar degenerative disc disease and facet arthropathy without CT findings of an acute osseous injury or suspicious marrow replacing lesion. 2. Variable degrees of central canal, lateral recess and neural femoral stenosis throughout the lumbar spine are detailed above level by level appearing most advanced at L4-L5. Dictated by: Dictated on workstation # [id number]
--- NOTE | 2020-02-19 21:18 | Diagnostic Imaging Report ---
PROCEDURE: CT abdomen and pelvis without contrast. TECHNIQUE: Multiple contiguous axial images were obtained through the abdomen and pelvis without the use of intravenous contrast. Auto Exposure Controls were utilized during the CT exam to meet ALARA standards for radiation dose reduction. INDICATION: Right upper quadrant pain. FINDINGS: The lung bases demonstrate no infiltrate or consolidation. There is no effusion. The liver demonstrates no evidence of a focal intrahepatic abnormality. The gallbladder mildly distended without radiodense gallstone or CT findings of gallbladder wall thickening. There is no abnormal biliary dilatation. Spleen is normal in size. The pancreas is unremarkable. There is no adrenal mass. The kidneys appear nonobstructed without evidence of urolithiasis. Small and large bowel normal in caliber without evidence of bowel obstruction. There is a moderate to large degree of stool throughout the colon without evidence of abnormal colonic thickening or pericolonic fat stranding. There are no findings of free fluid. There is no evidence of abscess. The patient is status post hysterectomy. Urinary bladder distended. There are atherosclerotic calcifications within a normal caliber aorta. There are advanced degenerative features within the lumbar spine. IMPRESSION: 1. Mild distention of the gallbladder without radiodense gallstone or findings of biliary dilatation. 2. Distended urinary bladder. 3. No findings of urolithiasis or hydronephrosis. 4. No bowel obstruction. There is a moderate to large degree of stool throughout the colon suggesting constipation. There is no abnormal colonic thickening. 5. No findings of focal inflammation within the omentum or mesentery or findings of free fluid. Dictated by: Dictated on workstation # [id number]
[2020-02-19] MEDS ORDERED: fentaNYL INJECTION 100 MCG/2 ML AMP IVP ONE (21:30)
[2020-02-19] MEDS ORDERED: hydrALAZINE (APESOLINE) 20 MG/ML VIAL IV ONE (21:45)
--- NOTE | 2020-02-19 22:40 | NUR ---
ADRIANA FERRELL admitted to room 423-1, with an admitting diagnosis of Malignant Hypertension and Intractable Back / Hip Pain, on 02/19/20 from ED via portable bed, accompanied by staff.ADRIANA FERRELL introduced to surroundings, call light, bed controls, phone, TV, temperature control, lights, meal times, smoking policy, visitor policy, side rail policy, bathrooms and showers. Patient Rights given to patient in the handbook. ADRIANA FERRELL verbalizes understanding that [facility] is not responsible for the loss or damage to any personal effects or valuables that are kept in the patients posession during their hospitalization. ADRIANA FERRELL verbalizes understanding of Interdisciplinary Patient Education. Patient and/or family were informed about the Rapid Response Team and its purpose.
[2020-02-19 22:43] VITALS: BP 193/69
--- OUTSIDE RECORDS SUMMARY | 2020-02-19 22:44 | XMS REPORT | Encounter Summary ---
Author Author [facility] Organization [facility] Address Unknown Phone Unavailable Care Team Providers Care Commercial Drafter Name Role Phone PCP Unavailable Reason for Visit * Reason Comments Headache Sore Throat started last night Encounter Details Care Team Description Date Type Department Saba Collazo NP [address] [place] [id number] Acute sinusitis, unspecified (Primary Dx ); Viral URI 03/14/2013 Office Visit [facility] [address] [address] Social History Date Tobacco Use Types Packs/Day Years Used Never Smoker Drinks/Week oz/Week Comments Alcohol Use Not Asked Sex Assigned at Date Recorded Not on file Industry Job Start Date Occupation Not on file Not on file Not on file Travel End Travel History Travel Start No recent travel history available. documented as of this encounter Last Filed Vital Signs Reading Time Taken Comments Vital Sign 112/80 03/14/2013 6:28 PM CDT Blood Pressure 83 03/14/2013 6:28 PM CDT Pulse 37.1 C (98.8 F) 03/14/2013 6:28 PM CDT Temperature - - Respiratory Rate 96% 03/14/2013 6:28 PM CDT Oxygen Saturation - - Inhaled Oxygen Concentration 77.1 kg (170 lb) 03/14/2013 6:28 PM CDT Weight 170.2 cm (5' 7") 03/14/2013 6:28 PM CDT Height 26.63 03/14/2013 6:28 PM CDT Body Mass Index documented in this encounter Patient Instructions * Patient Instructions* Saba Collazo NP - 03/14/2013 6:53 PM CDT [facility] Patient Instructions Sinusitis: After Your Visit Your Care Instructions Sinusitis is an infection of the lining of the sinus cavities in your head. Sinu sitis often follows a cold and causes pain and pressure in your head and face. Antibiotics can help cure sinusitis caused by bacteria. You should begin to feel better within a couple of days, but some symptoms may last for a month or more. If your doctor thinks that you have a bacterial infection, he or she will amberly jacob prescribe antibiotics. Follow-up care is a sidhu part of your treatment and safety. Be sure to make and g o to all appointments, and call your doctor if you are having problems. Its a lso a good idea to know your test results and keep a list of the medicines you t ramon. How can you care for yourself at home? Take your antibiotics as directed. Do not stop taking them just because you f eel better. You need to take the full course of antibiotics. Take an yjbn-tkl-pxbghuc pain medicine, such as acetaminophen (Tylenol), ibup rofen (Advil, Motrin), or naproxen (Aleve). Read and follow all instructions on the label. Be careful when taking rwco-azf-mpjndcf cold or flu medicines and Tylenol at the same time. Many of these medicines have acetaminophen, which is Tylenol. Sarah d the labels to make sure that you are not taking more than the recommended dose . Too much acetaminophen (Tylenol) can be harmful. Breathe warm, moist air from a steamy shower, a hot bath, or a sink filled wi th hot water. Avoid cold, dry air. Using a humidifier in your home may help. Fol low the instructions for cleaning the machine. Use saline (saltwater) nasal washes to help keep your nasal passages open and wash out mucus and bacteria. You can buy saline nose drops at a grocery store or drugstore. Or you can make your own at home by adding 1 teaspoon of salt and 1 teaspoon of baking soda to 2 cups of distilled water. If you make your own, fill a bulb syringe with the solution, insert the tip into your nostril, and squeeze gently. Blow your nose. Put a hot, wet towel or a warm gel pack on your face 3 or 4 times a day for 5 to 10 minutes each time. Try a decongestant nasal spray like oxymetazoline (Afrin). Do not use it for more than 3 days in a row. Using it for more than 3 days can make your congestio n worse. Take a decongestant such as pseudoephedrine (Sudafed) if your doctor recommen ds it. Try a cough medicine with guaifenesin if your doctor recommends it. This can thin your mucus. If you need to blow your nose, do it gently. Forceful blowing may force thick mucus back into your sinuses. Keep both nostrils open when you blow your nose. When should you call for help? Call your doctor now or seek immediate medical care if: You have new or worse swelling or redness in your face or around your eyes. Watch closely for changes in your health, and be sure to contact your doctor if: You have a new or higher fever. You have new or worse facial pain. You are not getting better after 2 days (48 hours). The mucus from your nose becomes thicker (like pus) or has new blood in it. Where can you learn more? Go to www.[employer] Int in the Health Information search box. Enter I933 in the search box to learn more about "Sinusitis: After Your Visit." Last Revised: November 16, [id number] [employer]. Care instructions adapted under license b sandra Grimm. [facility]isha disclaims any warranty or liability for your use of this informat ion. This information is not intended to represent the ethical and amish bel iefs of [facility]. This care instruction is for use with your licensed healthcare pr [facility]. If you have questions about a medical condition or this instruction, always ask your healthcare professional. [employer] disclaims any warranty or liability for your use of this information. documented in this encounter Progress Notes * Saba Collazo NP - 03/14/2013 6:52 PM CDT SUBJECTIVE: Cristina Kim is a 67 y.o. female who complains of sore throat, sinus d rainage, mild cough, headache and bilateral ear pain for 1 days. She denies a hi story of fevers and vomiting and denies a history of asthma. Patient does not sm james cigarettes. OBJECTIVE: BP 112/80 | Pulse 83 | Temp(Src) 98.8 F (37.1 C) (Tympanic) | Ht 5' 7" (1.70 2 m) | Wt 170 lb (77.111 kg) | BMI 26.62 kg/m2 | SpO2 96% Appearance: alert, well appearing, and in no distress. Eye: normal ENT- bilateral TM fluid noted, neck without nodes, pharynx erythematous without exudate, bilateral maxillary sinus tender and nasal mucosa congested. Chest - clear to auscultation, no wheezes, rales or rhonchi, symmetric air entry . ASSESSMENT: viral upper respiratory illness and sinusitis PLAN: See additional orders in EMR. Symptomatic therapy suggested: push fluids, rest, gargle warm salt water, use acetaminophen, ibuprofen, antihistamine-decongestant of choice, cough suppressant of choice prn and antibiotics indicated as prescri bed. Call or return to clinic prn if these symptoms worsen or fail to improve a s anticipated. documented in this encounter Plan of Treatment Not on filedocumented as of this encounter Visit Diagnoses Diagnosis Acute sinusitis, unspecified - Primary Viral URI Acute upper respiratory infections of u nspecified site documented in this encounter Administered Medications Action Date Dose Rate Site Medication Order MAR Action 03/14/2013 7:03 PM CDT 4 mg Right Up per Outer Quadrant dexamethasone (DECADRON) injection 4 mg Given 4 mg, IM, ONE TIME ONLY, 1 dose, Wed03/14/13 at 1900, Routine documented in this encounter
--- OUTSIDE RECORDS SUMMARY | 2020-02-19 22:44 | XMS REPORT | Encounter Summary ---
Author Author [facility] Organization [facility] Address Unknown Phone Unavailable Care Team Providers Care Net Wpf Developer Name Role Phone PCP Unavailable Reason for Visit * Reason Comments Ear Pain balance is off. Sinus Infection Cough and coughing up yello w mucus Encounter Details Care Team Description Date Type Department Timothy Muniz, SQL ANALYST NO ADDRESS ON FILE Acute sinusitis, unspecified (Primary Dx ) 02/11/2012 Office Visit [address] [address] Social History Date Tobacco Use [...] Signs Reading Time Taken Comments Vital Sign - - Blood Pressure 66 02/11/2012 5:56 PM CDT Pulse 37.1 C (98.8 F) 02/11/2012 5:56 PM CDT Temperature - - Respiratory Rate 96% 02/11/2012 5:56 PM CDT Oxygen Saturation - - Inhaled Oxygen Concentration - - Weight - - Height - - Body Mass Index documented in this encounter Progress Notes * Timothy Muniz APRN - 02/11/2012 6:08 PM CDT SUBJECTIVE: Cristina Kim is a 66 y.o. female who complains of coryza, congestion, sore throat, swollen glands, nasal blockage, post nasal drip, productive cough, myalgias, headache, bilateral sinus pain, fever, bilateral ear fullness, pressur e, green nasal discharge and hoarseness for 2 days. She denies a history of anor exia, chills, dizziness, fatigue, nausea, shortness of breath, sweats, vomiting, weakness, weight loss and wheezing and denies a history of asthma. Patient does not smoke cigarettes. OBJECTIVE: Pulse 66 | Temp(Src) 98.8 F (37.1 C) (Tympanic) | SpO2 96% Appearance: alert, well appearing, and in no distress, oriented to person, place , and time, overweight, in mild to moderate distress and ill-appearing. Eye: normal ENT- bilateral TM fluid noted, neck without nodes, pharynx erythematous without exudate, frontal and maxillary sinus tender, post nasal drip noted and nasal muc gregory congested. Chest - clear to auscultation, no wheezes, rales or rhonchi, symmetric air entry , no tachypnea, retractions or cyanosis, S1, S2 normal, no murmurs. ASSESSMENT: sinusitis PLAN: See additional orders in EMR. Symptomatic therapy suggested: push fluids, rest, gargle warm salt water, use vaporizer or mist prn, use acetaminophen, ibuprofen prn, apply heat to sinuses prn and antibiotics indicated as prescribed. Call or return to clinic prn if these symptoms worsen or fail to improve as anticipated. documented in this encounter Plan of Treatment Not on filedocumented as of this encounter Visit Diagnoses Diagnosis Acute sinusitis, unspecified - Primary documented in this encounter"
--- OUTSIDE RECORDS SUMMARY | 2020-02-19 22:44 | XMS REPORT | Encounter Summary ---
Author Author [facility] Organization [facility] Address Unknown Phone Unavailable Care Team Providers Care Outside Industrial Sales Representative Name Role Phone PCP Unavailable Reason for Visit * Reason Comments Other Encounter Details Care Team Description Date Type Department Song Ward Other 07/17/2009 Telephone [facility] Medicine [address] [phone] Social History Date Tobacco Use Types Packs/Day Years Used Never Smoker Drinks/Week oz/Week Comments Alcohol Use Not Asked Sex Assigned at Date Recorded Not on file Industry Job Start Date Occupation Not on file Not on file Not on file Travel End Travel History Travel Start No recent travel history available. documented as of this encounter Miscellaneous Notes * Telephone Encounter - Song Ward - 07/17/2009 7:34 PM CDT Unable to reach this patient. * Telephone Encounter - Song Ward - 07/17/2009 7:33 PM CDT Message copied by SONG WARD on WedJul 17, 2009 7:33 PM ------ Message from: SONG ZUNIGA Created: WedJul 16, 2009 1:07 PM Contact: Ebonie Loomis said she needs to talk to Jolynn and would not leave a message. Call her at [phone] documented in this encounter Plan of Treatment Not on filedocumented as of this encounter Visit Diagnoses Not on filedocumented in this encounter
--- OUTSIDE RECORDS SUMMARY | 2020-02-19 22:44 | XMS REPORT | Encounter Summary ---
Author Author [facility] Organization [facility] Address Unknown Phone Unavailable Care Team Providers Care Jewelry Sorter Name Role Phone PCP Unavailable Reason for Visit * Reason Comments Sinus Infection refill of medication for si nus infection Encounter Details Care Team Description Date Type Department Radha Wolf, [employer] [address] [place] [address] Sinus Infection (refill of medication fo r sinus infection) 07/13/2009 Telephone [facility] [address] [phone] Social History Date Tobacco Use Types Packs/Day Years Used Never Smoker Drinks/Week oz/Week Comments Alcohol Use Not Asked Sex Assigned at Date Recorded Not on file Industry Job Start Date Occupation Not on file Not on file Not on file Travel End Travel History Travel Start No recent travel history available. documented as of this encounter Plan of Treatment Not on filedocumented as of this encounter Visit Diagnoses Diagnosis Infectious otitis externa Infective otitis externa, unspecified OM (otitis media) Unspecified otitis media Dizziness and giddiness documented in this encounter
--- OUTSIDE RECORDS SUMMARY | 2020-02-19 22:44 | XMS REPORT | Encounter Summary ---
Author Author [facility] Organization [facility] Address Unknown Phone Unavailable Care Team Providers Care Phlebotomy Tech Name Role Phone PCP Unavailable Reason for Visit * Reason Comments Rash Encounter Details Care Team Description Date Type Department Song Ward 05/09/2009 Telephone [facility] Medicine [address] [address] Social History Date Tobacco Use Types Packs/Day [...] * Telephone Encounter - Song Ward - 05/09/2009 8:03 PM CDT Has poison jacqui bad. Wanted to know if she could do a medrol dose pack or someth ing. The poison jacqui is bad. Per Dr Matthews call in Prednisone taper 20mg tabs. 6 0 times three, 40mg times three days, 20mg for three days and i/2 times four day s. * Telephone Encounter - Song Ward - 05/09/2009 8:01 PM CDT Message copied by SONG WARD on WedMay 09, 2009 8:01 PM ------ Message from: SONG ZUNIGA Created: WedMay 09, 2009 3:40 PM Contact: Cristina Edwardra has a question and needs to talk to a nurse. About prescriptions. documented in this encounter Plan of Treatment Not on filedocumented as of this encounter Visit Diagnoses Not on filedocumented in this encounter
--- OUTSIDE RECORDS SUMMARY | 2020-02-19 22:44 | XMS REPORT | Encounter Summary ---
Author Author [facility] Organization [facility] Address Unknown Phone Unavailable Care Team Providers Care Special Investigator Name Role Phone PCP Unavailable Reason for Visit * Reason Comments Ear Pain bilart pain, sinus pain x 1 week Encounter Details Care Team Description Date Type Department Sara Guevara, BONE PROCESS OPERATOR [address] [address] [phone] Acute serous otitis media (Primary Dx) 12/23/2010 Office Visit [address] [phone] Social History Date Tobacco Use [...] Comments Vital Sign - - Blood Pressure 64 12/23/2010 7:04 PM CDT Pulse 36.9 C (98.4 F) 12/23/2010 7:04 PM CDT Temperature - - Respiratory Rate 98% 12/23/2010 7:04 PM CDT Oxygen Saturation - - Inhaled Oxygen Concentration - - Weight - - Height - - Body Mass Index documented in this encounter Progress Notes * Sara Guevara ARNP - 12/23/2010 7:17 PM CDT HISTORY OF PRESENT ILLNESS Cristina Julio, a 65 y.o. female. Ear Pain This is a recurrent (Bilateral ear pain x 1 week. Has had ear and sinus problem s in the past.) problem. The current episode started more than 1 week ago. There is pain in both (Left is more painful than the right tonight.) ears. There has been no fever. Associated symptoms include headaches and cough. REVIEW OF SYSTEMS Review of Systems Constitutional: Negative for fever. HENT: Positive for ear pain and congestion. Left sinus pain. Sinus drainage this morning. Respiratory: Positive for cough. Cough, non productive, this morning. None now. Neurological: Positive for dizziness and headaches. PHYSICAL EXAM Pulse 64 | Temp 98.4 F (36.9 C) | SpO2 98% Physical Exam Constitutional: She is oriented to person, place, and time. She appears well-nou rished. HENT: Head: Normocephalic. Right Ear: Tympanic membrane normal. Nose: Nose normal. Mouth/Throat: Uvula is midline and mucous membranes are normal. Left tm is lightly erythematous. Neck: Neck supple. Cardiovascular: Normal rate. Pulmonary/Chest: Breath sounds normal. Neurological: She is alert and oriented to person, place, and time. Skin: Skin is warm and dry. Psychiatric: She has a normal mood and affect. ASSESSMENT and PLAN: Encounter Diagnoses 1. Acute serous otitis media (381.01) azithromycin (ZITHROMAX) 250 mg Oral tabl et Tylenol or ibuprofen prn. documented in this encounter Plan of Treatment Not on filedocumented as of this encounter Visit Diagnoses Diagnosis Acute serous otitis media - Primary documented in this encounter"
--- OUTSIDE RECORDS SUMMARY | 2020-02-19 22:44 | XMS REPORT | Encounter Summary ---
Author Author [facility] Organization [facility] Address Unknown Phone Unavailable Care Team Providers Care Capability Lead Name Role Phone PCP Unavailable Reason for Visit * Reason Comments Hoarse She has been hoarse and has been having alot of drainage. She is blowing out yellow and green. Both ears are leah ting. Sinus Pain Encounter Details Care Team Description Date Type Department Radha Wolf, ADMINISTRATIVE ASSISTANT DATA ENTRY [address] [place] [address] Sinusitis Acute (Primary Dx); Acute Serous Otitis Media 04/08/2010 Office Visit [address] [phone] Social History Date Tobacco Use [...] Comments Vital Sign - - Blood Pressure 65 04/08/2010 6:26 PM CDT Pulse 36.5 C (97.7 F) 04/08/2010 6:26 PM CDT Temperature - - Respiratory Rate 97% 04/08/2010 6:26 PM CDT Oxygen Saturation - - Inhaled Oxygen Concentration - - Weight - - Height - - Body Mass Index documented in this encounter Progress Notes * Radha Wolf, [facility] - 04/08/2010 8:43 PM CDT SUBJECTIVE: Cristina Kim is a 64 y.o. female who complains of congestion, producti ve cough, bilateral sinus pain and bilateral ear pain, pressure for 3 days. She denies a history of chest pain and sore throat and denies a history of asthma. P atient does not smoke cigarettes. OBJECTIVE: Pulse 65 | Temp 97.7 F (36.5 C) | SpO2 97% Appearance: alert, well appearing, and in no distress, oriented to person, place , and time and well hydrated. Eye: normal ENT- bilateral TM fluid noted, neck without nodes, pharynx erythematous without exudate, maxillary sinus tender, post nasal drip noted and nasal mucosa congeste d. Chest - clear to auscultation, no wheezes, rales or rhonchi, symmetric air entry , Heart exam: normal rate and regular rhythm. ASSESSMENT: serous otitis and sinusitis PLAN: See additional orders in EMR. Symptomatic therapy suggested: push fluids, rest, use vaporizer or mist prn, apply heat to sinuses prn and antibiotics indicated a s prescribed. Call or return to clinic prn if these symptoms worsen or fail to improve as anticipated. documented in this encounter Plan of Treatment Not on filedocumented as of this encounter Visit Diagnoses Diagnosis Sinusitis acute - Primary Acute sinusitis, unspecified Acute serous otitis media documented in this encounter"
--- OUTSIDE RECORDS SUMMARY | 2020-02-19 22:44 | XMS REPORT | Clinical Summary ---
Author Author [facility] Organization [facility] Address Unknown Phone Unavailable Care Team Providers Care Shoe Sewing Machine Operator And Tender Name Role Phone PCP Unavailable Allergies Comments Active Allergy Reactions Severity Noted Date Cephalexin Hives High 12/23/2010 Iodinated Contrast Media Anaphylaxis High 04/22 Penicillins Hives 04/22/2009 She went unconscious. Ethchlorvynol Other (See 04/22/2009 Comments) Sulfa (Sulfonamide Hives, Nausea 04/22/2009 Antibiotics) and Vomiting Medications End Date Status Medication Sig Dispensed Refills Start Date Active chlorzoxazone (PARAFON Take 500 mg 0 FORTE DSC) 500 mg Oral by mouth 4 Tab times daily as needed for Spasm. Active naproxen (NAPROSYN) 500 Take 500 mg 0 mg Oral Tab by mouth 2 times daily with meals. Active metoprolol succinate Take 50 mg by 0 (TOPROL-XL) 50 mg Oral mouth daily. Tb24 Active Amlodipine-Atorvastatin Take 1 Tab by 0 5-10 mg Oral Tab mouth daily. Active acetaminophen (TYLENOL Take 500 mg 0 EXTRA STRENGTH) 500 mg by mouth Oral tablet every 6 hours as needed. Active Problems No known active problems Immunizations Name Administration Dates Next Due Dexamethasone Sodium 04/08/2010, 04/22/2009 Phosphate 4 Mg/mL Injection Methylprednisolone 04/08/2010, 04/22/2009 Acetate 80 Mg/mL Injection Social History Date Tobacco Use Types Packs/Day Years Used Never Smoker Drinks/Week oz/Week Comments Alcohol Use Not Asked Sex Assigned at Date Recorded Not on file Industry Job Start Date Occupation Not on file Not on file Not on file Travel End Travel History Travel Start No recent travel history available. Last Filed Vital Signs Reading Time Taken [...] 03/14/2013 6:28 PM CDT Body Mass Index Plan of Treatment Health Maintenance Due Date Last Done Comments COLORECTAL SCREENING 1993 ZOSTER VACCINE (1 of 2) 1993 OSTEOPOROSIS SCREENING 2008 PNEUMOCOCCAL VACCINE 65+ 2008 YEARS (1 of 2 - PCV13) INFLUENZA VACCINE 05/04/2019 Results Not on filefrom Last 3 Months Insurance Type Payer Benefit Subscriber ID Effective Phone Address Plan / Dates Group Medicare MEDICARE MEDICARE [id number] 2008-P PART A AND resent B Blue Cross BLUE CROSS AND BLUE BCBS OF [id number] 2008-P [facility] resent SUPP Cristina Kim Personal/F Self 1945 [phone] [place] (Home) [place] [address] Advance Directives For more information, please contact: [phone] Patient Director Park Explanation Type Date Recorded Advance Directive POA Advance Directive Living Will
--- OUTSIDE RECORDS SUMMARY | 2020-02-19 22:44 | XMS REPORT | Clinical Summary ---
Author Author [facility], [place], [place], [facility] Organization [facility] [employer] [place], [place], [facility] Address Unknown Phone Unavailable Care Team Providers Care Skin Lap Bonder Name Role Phone Fifi Camejo MD PCP Allergies Not on File Medications Not on file Active Problems Not on file Social History Date Tobacco Use Types Packs/Day Years Used Never Assessed Sex Assigned at Date Recorded Not on file Industry Job Start Date Occupation Not on file Not on file Not on file Travel End Travel History Travel Start No recent travel history available. Last Filed Vital Signs Not on file Plan of Treatment Health Maintenance Due Date Last Done Comments COLORECTAL SCREENING 1993 ZOSTER VACCINE (1 of 2) 1993 OSTEOPOROSIS SCREENING 2008 PNEUMOCOCCAL VACCINE 65+ 2008 YEARS (1 of 2 - PCV13) INFLUENZA VACCINE 05/04/2019 Results Not on filefrom Last 3 Months Advance Directives For more information, please contact: [phone] Patient Compensation Supervisor Explanation Type Date Recorded Advance Directive POA Advance Directive Living Will
--- OUTSIDE RECORDS SUMMARY | 2020-02-19 22:44 | XMS REPORT | Encounter Summary ---
Author [facility] Address Unknown Phone Unavailable Care Team Providers Care Access Rn Name Role Phone Fifi Camejo MD PCP Encounter Details Care Team Description Date Type Department Provider, Abstract Spg 04/26/2017 Abstract [facility] [place] [address] [facility] [address] [id number] Social History Date Tobacco Use Types Packs/Day [...]
--- OUTSIDE RECORDS SUMMARY | 2020-02-19 22:44 | XMS REPORT | Encounter Summary ---
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 Encounter Details Care Team Description Date Type Department Jolynn Skaggs APRN NO ADDRESS ON FILE Infectious Otitis Externa; OM (Otitis Media); Dizziness and Giddiness 04/22/2009 Office Visit [facility] [address] [place] [address] Social History Date Tobacco Use Types Packs/Day [...] Signs Reading Time Taken Comments Vital Sign 130/80 04/22/2009 2:27 PM CDT Blood Pressure 63 04/22/2009 2:27 PM CDT Pulse 36.8 C (98.3 F) 04/22/2009 2:27 PM CDT Temperature - - Respiratory Rate 96% 04/22/2009 2:27 PM CDT Oxygen Saturation - - Inhaled Oxygen Concentration - - Weight - - Height - - Body Mass Index documented in this encounter Progress Notes * Jolynn Skaggs ARNP - 04/22/2009 3:29 PM CDT S: Comes in with c/o right ear pain and dizziness. Has been present for 6 days . States has had this problem before. Is unable to hear from the right ear. O: HEENT: Cerumen impacted on the TM of the right. Left clear. No cervical l ymph node enlargement. Posterior pharynx without exudate or inflammation. The nasal passages are inflamed and edematous with clear drainage. Ridge on nose. Lungs clear bilaterally. HR regular without murmur. Skin warm and dry. Irriga jabari the right ear for at least 15 minutes with mild success. A: Cerumen impaction External otitis OM P: Decadron 4 and Depo Medrol 80. Z-max pack and Cortisporin. Return as daniel hawk documented in this encounter Plan of Treatment Not on filedocumented as of this encounter Visit Diagnoses Diagnosis Infectious otitis externa Infective otitis externa, unspecified OM (otitis media) Unspecified otitis media Dizziness and giddiness documented in this encounter
--- OUTSIDE RECORDS SUMMARY | 2020-02-19 23:09 | XMS REPORT | Continuity of Care Document ---
Author Organization Unknown Address Unknown Phone Unavailable Allergies Active Description Code Type Severity Reaction Onset Reported/Identified Relationship to Patient Clinical Status Yes ivp dye ivp dye Mode rate N/A 09/15/2013 Yes Penicillins [id number] Drug Aller gy Moderate N/A 03/14/2019 Yes Sulfa (Sulfonamide Antibiotics) [id number] Drug Allergy Moderate N/A 2018 Yes clonidine [id number] Drug Allergy Unknown NAUSEA 03/14/2019 Medications There is no data. Problems Date Dx Coded Attending Type Code Diagnosis Diagnosed By 09/22/2013 BRANNON OWEN, CHARI Sullivan Ot 250.00 DIAB GAVIN WO COMPL, TYPE II OR UNSPEC TY 09/22/2013 BRANNON OWEN, CHARI Sullivan Ot 338.29 OTHER CHRONIC PAIN 09/22/2013 BRANNON OWEN, CHARI Sullivan Ot 401.9 HYPERTENSION NOS 09/22/2013 BRANNON OWEN, CHARI Sullivan Ot 724.5 BACKACHE NOS 09/22/2013 BRANNON OWEN, CHARI Sullivan Ot 807.06 FRACTURE SIX RIBS-CLOSED 09/22/2013 CHARI SOUTH MD Ot E000.8 OTHER EXTERNAL CAUSE STATUS 09/22/2013 CHARI SOUTH MD Ot E815.0 MV [place] W OTH OBJ-ORE WASHER 09/22/2013 BRANNON OWEN, CHARI Sullivan Ot V03.82 PROPHYLACTIC VACC AGAINST STREPTOCOCCUS 10/25/2014 [...] 11/22/2014 DARA OWEN, GABE K Ot 611.72 11/22/2014 DARA OWEN, GABE [place] Ot 611.72 02/04/2015 DARA OWEN, GABE [place] Ot 611.72 02/22/2015 DARA OWEN, GABE [place] Ot 611.72 05/16/2015 DARA OWEN, GABE [place] Ot 793.89 2015 GABE DIAMOND MD Ot 793.89 04/21/2016 GABE DIAMOND MD Ot Z12.31 ENCNTR SCREEN MAMMOGRAM FOR MALIGNANT NE 04/21/2016 GABE DIAMOND MD Ot Z12.31 ENCNTR [...] ENCNTR SCREEN MAMMOGRAM FOR MALIGNANT NE 07/10/2016 NEAL TENORIO ARMATURE BALANCER Ot R10.11 RIGHT UPPER QUADRANT PAIN 07/10/2016 NEAL TENORIO ARMATURE BALANCER Ot R10.11 RIGHT UPPER QUADRANT PAIN 07/30/2016 NEAL TENORIO ARMATURE BALANCER Ot R10.11 RIGHT UPPER QUADRANT PAIN 08/18/2016 NEAL TENORIO ARMATURE BALANCER Ot R10.11 RIGHT UPPER QUADRANT PAIN 02/18/2017 GABE DIAMOND MD Ot 611.72 LUMP OR MASS IN BREAST 02/18/2017 GABE DIAMOND MD Ot 611.72 LUMP OR MASS IN BREAST 02/18/2017 GABE DIAMOND MD Ot 793.89 OTH (ABN) FINDINGS ON RADIOLOGICAL EXAMI 02/18/2017 GABE DIAMOND MD Ot Z12.31 ENCNTR SCREEN MAMMOGRAM FOR MALIGNANT NE 02/18/2017 NEAL TENORIO ARMATURE BALANCER Ot R10.11 RIGHT UPPER QUADRANT PAIN 02/19/2017 GABE DIAMOND MD Ot 611.72 LUMP OR MASS IN BREAST 02/19/2017 GABE DIAMOND MD Ot 611.72 LUMP OR MASS IN BREAST 02/19/2017 GABE DIAMOND MD Ot 793.89 OTH (ABN) FINDINGS ON RADIOLOGICAL EXAMI 02/19/2017 GABE DIAMOND MD Ot Z12.31 ENCNTR SCREEN MAMMOGRAM FOR MALIGNANT NE 02/19/2017 NEAL TENORIO ARMATURE BALANCER Ot R10.11 RIGHT UPPER QUADRANT PAIN 02/22/2017 GABE DIAMOND MD Ot 611.72 LUMP OR MASS IN BREAST 02/22/2017 GABE DIAMOND MD Ot 611.72 LUMP OR MASS IN BREAST 02/22/2017 GABE DIAMOND MD Ot 793.89 OTH (ABN) FINDINGS ON RADIOLOGICAL EXAMI 02/22/2017 GABE DIAMOND MD Ot Z12.31 ENCNTR SCREEN MAMMOGRAM FOR MALIGNANT NE 02/22/2017 NEAL TENORIO ARMATURE BALANCER Ot R10.11 RIGHT UPPER QUADRANT PAIN 04/27/2017 GABE DIAMOND MD Ot 611.72 LUMP OR MASS IN BREAST 04/27/2017 GABE DIAMOND MD Ot 611.72 LUMP OR MASS IN BREAST 04/27/2017 GABE DIAMOND MD Ot 793.89 OTH (ABN) FINDINGS ON RADIOLOGICAL EXAMI 04/27/2017 GABE DIAMOND MD Ot Z12.31 ENCNTR SCREEN MAMMOGRAM FOR MALIGNANT NE 04/27/2017 NEAL TENORIO APRN Ot R10.11 RIGHT UPPER QUADRANT PAIN 04/27/2017 REBECCA PEACE Ot F41.9 ANXIETY DISORDER, UNSPECIFIED 04/27/2017 REBECCA PEACE Ot G89.29 OTHER CHRONIC PAIN 04/27/2017 REBECCA PEACE Ot I 10 ESSENTIAL (PRIMARY) HYPERTENSION 04/27/2017 REBECCA PEACE Ot [...] OTHER CHRONIC PAIN 04/29/2017 REBECCA PEACE Ot I 10 ESSENTIAL (PRIMARY) HYPERTENSION 04/29/2017 REBECCA PEACE Ot M19.90 UNSPECIFIED OSTEOARTHRITIS, UNSPECIFIED 04/29/2017 REBECCA PEACE Ot M54.9 DORSALGIA, UNSPECIFIED 04/29/2017 REBECCA PEACE Ot R10.10 UPPER ABDOMINAL PAIN, UNSPECIFIED 04/29/2017 REBECCA PEACE Ot R10.11 RIGHT UPPER QUADRANT PAIN 04/29/2017 REBECCA PEACE Ot R11.2 NAUSEA WITH VOMITING, UNSPECIFIED 04/29/2017 REBECCA PEACE Ot Z82.49 FAMILY HX OF ISCHEM HEART DIS AND OTH DI 04/29/2017 REBECCA PEACE Ot Z90.49 ACQUIRED ABSENCE OF OTHER SPECIFIED PART 06/10/2017 NEAL TENORIO ARMATURE BALANCER Ot Z12.31 ENCNTR SCREEN MAMMOGRAM FOR MALIGNANT NE 06/14/2017 NEAL TENORIO ARMATURE BALANCER Ot Z12.31 ENCNTR SCREEN MAMMOGRAM FOR MALIGNANT NE 06/15/2017 NEAL TENORIO ARMATURE BALANCER Ot Z12.31 ENCNTR SCREEN MAMMOGRAM FOR MALIGNANT NE 07/06/2017 NEAL TENORIO ARMATURE BALANCER Ot Z12.31 ENCNTR SCREEN MAMMOGRAM FOR MALIGNANT [...] MAMMOGRAM FOR MALIGNANT NE 05/03/2018 NEAL TENORIO ARMATURE BALANCER Ot R10.11 RIGHT UPPER QUADRANT PAIN 05/03/2018 NEAL TENORIO APRN Ot Z12.31 ENCNTR SCREEN MAMMOGRAM FOR MALIGNANT NE 05/24/2018 DEBORAH MORALES MD Ot E11.9 TYPE 2 DIABETES MELLITUS WITHOUT COMPLIC 05/24/2018 DEBORAH MORALES MD A Ot E11.9 [...] SCREEN MAMMOGRAM FOR MALIGNANT NE 07/15/2018 NEAL TENOIRO ARMATURE BALANCER Ot R10.11 RIGHT UPPER QUADRANT PAIN 07/15/2018 NEAL TENORIO ARMATURE BALANCER Ot Z12.31 ENCNTR SCREEN MAMMOGRAM FOR MALIGNANT NE 07/15/2018 ANDREW OWEN, DEBORAH Elizondo Ot E11.9 TYPE 2 DIABETES MELLITUS WITHOUT COMPLIC 07/15/2018 COBYNEAL ARMATURE BALANCER Ot Z12.31 ENCNTR SCREEN MAMMOGRAM FOR MALIGNANT NE 07/18/2018 COBYNEAL ARMATURE BALANCER Ot R92.0 MAMMOGRAPHIC MICROCALCIFICATION FOUND ON 07/18/2018 NEAL TENORIO ARMATURE BALANCER Ot Z12.31 ENCNTR SCREEN MAMMOGRAM FOR MALIGNANT NE 08/08/2018 COBYNAEL ARMATURE BALANCER Ot R92.0 MAMMOGRAPHIC MICROCALCIFICATION FOUND ON 08/08/2018 NEAL TENORIO ARMATURE BALANCER Ot Z12.31 ENCNTR SCREEN MAMMOGRAM FOR MALIGNANT NE 03/01/2019 RICH HERNANDEZ [employer]ING MAKEUP ARTIST Ot I99.9 UNSPECIFIED DISORDER OF CIRCULATORY SYST 03/01/2019 RICH HERNANDEZP Ot M25.78 OSTEOPHYTE, VERTEBRAE 03/01/2019 RICH HERNANDEZ [employer] MAKEUP ARTIST Ot M43.8X6 OTHER SPECIFIED DEFORMING DORSOPATHIES, 03/01/2019 RICH HERNANDEZ [employer] MAKEUP ARTIST Ot M47.816 SPONDYLOSIS W/O MYELOPATHY OR RADICULOPA 03/01/2019 RICH HERNANDEZ [employer] MAKEUP ARTIST Ot M51.35 OTHER INTERVERTEBRAL DISC DEGENERATION, 03/01/2019 RICH HERNANDEZ [employer] MAKEUP ARTIST Ot M51.36 OTHER INTERVERTEBRAL DISC DEGENERATION, 03/01/2019 RICH HERNANDEZ [employer] MAKEUP ARTIST Ot M51.37 OTHER INTERVERTEBRAL DISC DEGENERATION, 03/01/2019 ANDREW OWEN, DEBORAH Elizondo Ot M16.11 UNILATERAL PRIMARY OSTEOARTHRITIS, RIGHT 03/06/2019 ANDREW OWEN, DEBORAH Elizondo Ot M16.11 UNILATERAL PRIMARY OSTEOARTHRITIS, RIGHT 03/09/2019 ANDREW OWEN, DEBORAH Elizondo Ot E11.9 TYPE 2 DIABETES MELLITUS WITHOUT COMPLIC 03/13/2019 RICH HERNANDEZP Ot M16.11 UNILATERAL PRIMARY OSTEOARTHRITIS, RIGHT 03/13/2019 RICH HERNANDEZP Ot M25.78 OSTEOPHYTE, VERTEBRAE 03/13/2019 RICH HERNANDEZP Ot M41.86 OTHER FORMS OF SCOLIOSIS, LUMBAR REGION 03/13/2019 HERNANDEZ, RICH M [employer] MAKEUP ARTIST Ot M47.817 SPONDYLS 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 03/13/2019 MARY RICH Sullivan [employer] ARTIST Ot M48.061 SPINAL STENOSIS, LUMBAR REGION WITHOUT N 03/13/2019 MARYRICH [employer] MAKEUP ARTIST Ot M51.36 OTHER INTERVERTEBRAL DISC DEGENERATION, 03/13/2019 MARY RICH Sullivan [employer] ARTIST Ot M67.853 OTHER SPECIFIED DISORDERS OF TENDON, RIG 03/13/2019 MARY RICH M [employer] MAKE[employer] ARTIST Ot M67.854 OTHER SPECIFIED DISORDERS OF TENDON, LEF 03/13/2019 MARYRICH [employer] MAKEUP ARTIST Ot M89.9 DISORDER OF BONE, UNSPECIFIED 03/13/2019 MARY RICH Sullivan [employer] ARTIST Ot Z98.890 OTHER SPECIFIED POSTPROCEDURAL STATES 03/13/2019 ANDREW OWEN, DEBORAH Elizondo Ot 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 03/13/2019 ANDREW OWEN, DEBORAH Elizondo Ot E78.5 HYPERLIPIDEMIA, UNSPECIFIED 03/13/2019 DEBORAH MORALES MD Ot F32.9 MAJOR DEPRESSIVE DISORDER, SINGLE EPISOD 03/13/2019 DEBORAH MORALES MD Ot F41.9 ANXIETY DISORDER, UNSPECIFIED 03/13/2019 DEBORAH MORALES MD Ot I12.9 HYPERTENSIVE CHRONIC KIDNEY DISEASE W ST 03/13/2019 DEBORAH MORALES MD Ot K21.9 GASTRO-ESOPHAGEAL REFLUX DISEASE WITHOUT 03/13/2019 DEBORAH MORALES MD Ot K59.00 CONSTIPATION, UNSPECIFIED 03/13/2019 DEBORAH MORALES MD Ot M19.91 PRIMARY OSTEOARTHRITIS, UNSPECIFIED SITE 03/13/2019 DEBORAH MORALES MD Ot M47.26 OTHER SPONDYLOSIS WITH RADICULOPATHY, MISTY 03/13/2019 DEBORAH MORALES MD Ot M48.062 SPINAL STENOSIS, LUMBAR REGION WITH NEUR 03/13/2019 DEBORAH MORALES MD Ot M51.16 INTERVERTEBRAL DISC DISORDERS W RADICULO 03/13/2019 DEBORAH MORALES MD Ot M67.853 OTHER SPECIFIED DISORDERS OF TENDON, RIG 03/13/2019 DEBORAH MORALES MD Ot N18.3 CHRONIC KIDNEY DISEASE, STAGE 3 (MODERAT 03/13/2019 DEBORAH MORALES MD Ot W19.XXXA UNSPECIFIED FALL, INITIAL ENCOUNTER 03/13/2019 DEBORAH MORALES MD Ot Y92.230 PATIENT ROOM IN HOSPITAL PLACE 03/13/2019 DEBORAH MORALES MD Ot Z79.84 ASSISTED (CURRENT) USE OF ORAL HYPOGLYC 03/13/2019 DEBORAH MORALES MD Ot Z88.0 ALLERGY STATUS TO PENICILLIN 03/13/2019 DEBORAH MORALES MD Ot Z88.2 ALLERGY STATUS TO SULFONAMIDES STATUS 03/14/2019 GABE DIAMOND MD Ot 611.72 LUMP OR MASS IN BREAST 03/14/2019 GABE DIAMOND MD Ot 611.72 LUMP OR MASS IN BREAST 03/14/2019 GABE DIAMOND MD Ot 793.89 OTH (ABN) FINDINGS ON RADIOLOGICAL EXAMI 03/14/2019 GABE DIAMOND MD Ot Z12.31 ENCNTR SCREEN MAMMOGRAM FOR MALIGNANT NE 03/14/2019 NEAL TENORIO APRN Ot R10.11 RIGHT UPPER QUADRANT PAIN 03/14/2019 NEAL TENORIO ARMATURE BALANCER Ot Z12.31 ENCNTR SCREEN MAMMOGRAM FOR MALIGNANT NE 03/14/2019 DEBORAH MROALES MD Ot E11.9 TYPE 2 DIABETES MELLITUS WITHOUT COMPLIC 03/14/2019 NEAL TENORIO ARMATURE BALANCER Ot R92.0 MAMMOGRAPHIC MICROCALCIFICATION FOUND ON 03/14/2019 NEAL TENORIO ARMATURE BALANCER Ot Z12.31 ENCNTR SCREEN MAMMOGRAM FOR MALIGNANT NE 03/14/2019 RICH EHRNANDEZP Ot I99.9 UNSPECIFIED DISORDER OF CIRCULATORY SYST 03/14/2019 RICH HERNANDEZ [employer] ARTIST Ot M25.78 OSTEOPHYTE, VERTEBRAE 03/14/2019 RICH HERNANDEZ [employer] ARTIST Ot M43.8X6 OTHER SPECIFIED DEFORMING DORSOPATHIES, 03/14/2019 RICH HERNANDEZ [employer] MAKE[employer] ARTIST Ot M47.816 SPONDYLOSIS W/O MYELOPATHY OR RADICULOPA 03/14/2019 RICH HERNANDEZ [employer] MAKE[employer] ARTIST Ot M51.35 OTHER INTERVERTEBRAL DISC DEGENERATION, 03/14/2019 RICH HERNANDEZP Ot M51.36 OTHER INTERVERTEBRAL DISC DEGENERATION, 03/14/2019 RICH HERNANDEZP Ot M51.37 OTHER INTERVERTEBRAL DISC DEGENERATION, 03/14/2019 ELISABETH MORALES MDY A Ot M16.11 UNILATERAL PRIMARY OSTEOARTHRITIS, RIGHT 03/14/2019 RICH HERNANDEZP Ot M16.11 UNILATERAL PRIMARY OSTEOARTHRITIS, RIGHT 03/14/2019 RICH HERNANDEZ Ot M25.78 OSTEOPHYTE, VERTEBRAE 03/14/2019 RICH HERNANDEZP Ot M41.86 OTHER FORMS OF SCOLIOSIS, LUMBAR REGION 03/14/2019 RICH HERNANDEZP Ot M47.817 SPONDYLS 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 03/14/2019 RICH HERNANDEZP Ot M48.061 SPINAL STENOSIS, LUMBAR REGION WITHOUT N 03/14/2019 RICH HERNANDEZP Ot M51.36 OTHER INTERVERTEBRAL DISC DEGENERATION, 03/14/2019 RICH HERNANDEZP Ot M67.853 OTHER SPECIFIED DISORDERS OF TENDON, RIG 03/14/2019 RICH HERNANDEZP Ot M67.854 OTHER SPECIFIED DISORDERS OF TENDON, LEF 03/14/2019 RICH HERNANDEZP Ot M89.9 DISORDER OF BONE, UNSPECIFIED 03/14/2019 RICH HERNANDEZP Ot Z98.890 OTHER SPECIFIED POSTPROCEDURAL STATES 03/14/2019 ANDREW OWEN, DEBORAH Elizondo Ot E11.9 TYPE 2 DIABETES MELLITUS WITHOUT COMPLIC 03/14/2019 RADHA CATHERINEP Ot F41.9 ANXIETY DISORDER, UNSPECIFIED 03/14/2019 RADHA CATHERINEP Ot I10 ESSENTIAL (PRIMARY) HYPERTENSION 03/14/2019 RADHA CATHERINE Ot M51.36 OTHER INTERVERTEBRAL DISC DEGENERATION, 03/14/2019 RADHA CATHERINEP Ot M54.5 LOW BACK PAIN 03/14/2019 RADHA CATHERINE Ot Z79.4 TANNING SOLUTION MAKER (CURRENT) USE OF INSULIN 03/14/2019 RADHA CATHERINEP Ot Z79.51 ASSISTED (CURRENT) USE OF INHALED STERO 03/14/2019 RADHA CATHERINEP Ot Z82.49 FAMILY HX OF ISCHEM HEART DIS AND OTH DI 03/14/2019 RADHA CATHERINEP Ot Z85.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, 03/14/2019 RADHA CATHERINEP Ot Z88.0 ALLERGY STATUS TO PENICILLIN 03/14/2019 DORENE, RADHA [employer] MAKEUP ARTIST Ot Z88.2 ALLERGY STATUS TO SULFONAMIDES STATUS 03/14/2019 DORENE, RADHA [employer] MAKEUP ARTIST Ot Z88.8 ALLERGY STATUS TO OTH DRUG/MEDS/BIOL SUB 03/14/2019 DORENE, RADHA [employer] MAKEUP ARTIST Ot Z90.49 ACQUIRED ABSENCE OF OTHER SPECIFIED PART 03/14/2019 DORENE, RADHA [employer] MAKEUP ARTIST Ot Z90.89 ACQUIRED ABSENCE OF OTHER ORGANS 03/14/2019 DORENERADHA Arredondo [employer] ARTIST Ot Z98.890 OTHER SPECIFIED POSTPROCEDURAL STATES 03/16/2019 DORENE, RADHA [employer] MAKEUP ARTIST Ot F41.9 ANXIETY DISORDER, UNSPECIFIED 03/16/2019 DORENE, RADHA [employer] MAKEUP ARTIST Ot I10 ESSENTIAL (PRIMARY) HYPERTENSION 03/16/2019 DORENE, RADHA [employer] MAKEUP ARTIST Ot M51.36 OTHER INTERVERTEBRAL DISC DEGENERATION, 03/16/2019 DORENE, RADHA [employer] MAKEUP ARTIST Ot M54.5 LOW BACK PAIN 03/16/2019 DORENERADHA Arredondo [employer] ARTIST Ot Z79.4 TANNING SOLUTION MAKER (CURRENT) USE OF INSULIN 03/16/2019 DROENERADHA Arredondo [employer] ARTIST Ot Z79.51 TANNING SOLUTION MAKER (CURRENT) USE OF INHALED STERO 03/16/2019 DORENERADHA Arredondo [employer] ARTIST Ot Z82.49 FAMILY HX OF ISCHEM HEART DIS AND OTH DI 03/16/2019 RADHA CATHERINE [employer] MAKEUP ARTIST Ot Z85.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, 03/16/2019 DORENE, RADHA [employer] MAKEUP ARTIST Ot Z88.0 ALLERGY STATUS TO PENICILLIN 03/16/2019 DORENE, RADHA [employer] MAKEUP ARTIST Ot Z88.2 ALLERGY STATUS TO SULFONAMIDES STATUS 03/16/2019 DORENERADHA Arredondo [employer] ARTIST Ot Z88.8 ALLERGY STATUS TO OTH DRUG/MEDS/BIOL SUB 03/16/2019 DORENE, RADHA [employer] MAKEUP ARTIST Ot Z90.49 ACQUIRED ABSENCE OF OTHER SPECIFIED PART 03/16/2019 DORENERADHA Arredondo [employer] ARTIST Ot Z90.89 ACQUIRED ABSENCE OF OTHER ORGANS 03/16/2019 DORENERADHA Arredondo [employer] MAKE[employer] ARTIST Ot Z98.890 OTHER SPECIFIED POSTPROCEDURAL STATES 03/17/2019 ANDREW OWEN, DEBORAH Elizondo Ot 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 03/17/2019 DEBORAH MORALES MD Ot E78.5 HYPERLIPIDEMIA, UNSPECIFIED 03/17/2019 DEBORAH MORALES MD Ot F32.9 MAJOR DEPRESSIVE DISORDER, SINGLE EPISOD 03/17/2019 DEBORAH MORALES MD Ot F41.9 ANXIETY DISORDER, UNSPECIFIED 03/17/2019 DEBORAH MORALES MD Ot I12.9 HYPERTENSIVE CHRONIC KIDNEY DISEASE W ST 03/17/2019 DEBORAH MORALES MD, Ot K21.9 GASTRO-ESOPHAGEAL REFLUX DISEASE WITHOUT 03/17/2019 DEBORAH MORALES MD Ot K59.00 CONSTIPATION, UNSPECIFIED 03/17/2019 DEBORAH MORALES MD Ot M19.91 PRIMARY OSTEOARTHRITIS, UNSPECIFIED SITE 03/17/2019 DEBORAH MORALES MD Ot M47.26 OTHER SPONDYLOSIS WITH RADICULOPATHY, MISTY 03/17/2019 DEBORAH MORALES MD Ot M48.062 SPINAL STENOSIS, LUMBAR REGION WITH NEUR 03/17/2019 DEBORAH MORALES MD Ot M51.16 INTERVERTEBRAL DISC DISORDERS W RADICULO 03/17/2019 DEBORAH MORALES MD Ot M67.853 OTHER SPECIFIED DISORDERS OF TENDON, RIG 03/17/2019 DEBORAH MORALES MD Ot N18.3 CHRONIC KIDNEY DISEASE, STAGE 3 (MODERAT 03/17/2019 DEBORAH MORALES MD Ot W19.XXXA UNSPECIFIED FALL, INITIAL ENCOUNTER 03/17/2019 DEBORAH MORALES MD Ot Y92.230 PATIENT ROOM IN HOSPITAL PLACE 03/17/2019 DEBORAH MORALES MD Ot Z79.84 ASSISTED (CURRENT) USE OF ORAL HYPOGLYC 03/17/2019 DEBORAH MORALES MD Ot Z88.0 ALLERGY STATUS TO PENICILLIN 03/17/2019 DEBORAH MORALES MD Ot Z88.2 ALLERGY STATUS TO SULFONAMIDES STATUS 03/17/2019 DEBORAH MORALES MD Ot 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 03/17/2019 DEBORAH MORALES MD Ot E78.5 HYPERLIPIDEMIA, UNSPECIFIED 03/17/2019 DEBORAH MORALES MD Ot F32.9 MAJOR DEPRESSIVE DISORDER, SINGLE EPISOD 03/17/2019 DEBORAH MORALES MD Ot F41.9 ANXIETY DISORDER, UNSPECIFIED 03/17/2019 DEBORAH MORALES MD Ot I12.9 HYPERTENSIVE CHRONIC KIDNEY DISEASE W ST 03/17/2019 ANDREW MD, DEBORAH A Ot K21.9 GASTRO-ESOPHAGEAL REFLUX DISEASE WITHOUT 03/17/2019 DEBORAH MORALES MD Ot K59.00 CONSTIPATION, UNSPECIFIED 03/17/2019 DEBORAH MORALES MD, Ot M19.91 PRIMARY OSTEOARTHRITIS, UNSPECIFIED SITE 03/17/2019 DEBORAH MORALES MD Ot M47.26 OTHER SPONDYLOSIS WITH RADICULOPATHY, MISTY 03/17/2019 DEBORAH MORALES MD Ot M48.062 SPINAL STENOSIS, LUMBAR REGION WITH NEUR 03/17/2019 DEBORAH MORALES MD Ot M51.16 INTERVERTEBRAL DISC DISORDERS W RADICULO 03/17/2019 DEBORAH MORALES MD Ot M67.853 OTHER SPECIFIED DISORDERS OF TENDON, RIG 03/17/2019 DEBORAH MORALES MD, Ot N18.3 CHRONIC KIDNEY DISEASE, STAGE 3 (MODERAT 03/17/2019 DEBORAH MORALES MD Ot W19.XXXA UNSPECIFIED FALL, INITIAL ENCOUNTER 03/17/2019 DEBORAH MORALES MD Ot Y92.230 PATIENT ROOM IN HOSPITAL PLACE 03/17/2019 DEBORAH MORALES MD Ot Z79.84 ASSISTED (CURRENT) USE OF ORAL HYPOGLYC 03/17/2019 DEBORAH MORALES MD Ot Z88.0 ALLERGY STATUS TO PENICILLIN 03/17/2019 DEBORAH MORALES MD, Ot Z88.2 ALLERGY STATUS TO SULFONAMIDES STATUS 03/17/2019 DEBORAH MORALES MD Ot 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 03/17/2019 DEBORAH MORALES MD Ot E78.5 HYPERLIPIDEMIA, UNSPECIFIED 03/17/2019 DEBORAH MORALES MD Ot F32.9 MAJOR DEPRESSIVE DISORDER, SINGLE EPISOD 03/17/2019 DEBORAH MORALES MD Ot F41.9 ANXIETY DISORDER, UNSPECIFIED 03/17/2019 DEBORAH MORALES MD Ot I12.9 HYPERTENSIVE CHRONIC KIDNEY DISEASE W ST 03/17/2019 DEBORAH MORALES MD, Ot K21.9 GASTRO-ESOPHAGEAL REFLUX DISEASE WITHOUT 03/17/2019 DEBORAH MORALES MD Ot K59.00 CONSTIPATION, UNSPECIFIED 03/17/2019 DEBORAH MORALES MD Ot M19.91 PRIMARY OSTEOARTHRITIS, UNSPECIFIED SITE 03/17/2019 DEBORAH MORALES MD Ot M47.26 OTHER SPONDYLOSIS WITH RADICULOPATHY, MISTY 03/17/2019 ANDREW OWEN, DEBORAH Elizondo Ot M48.062 SPINAL STENOSIS, LUMBAR REGION WITH NEUR 03/17/2019 DEBORAH MORALES MD Ot M51.16 INTERVERTEBRAL DISC DISORDERS W RADICULO 03/17/2019 DEBORAH MORALES MD Ot M67.853 OTHER SPECIFIED DISORDERS OF TENDON, RIG 03/17/2019 DEBORAH MORALES MD Ot N18.3 CHRONIC KIDNEY DISEASE, STAGE 3 (MODERAT 03/17/2019 DEBORAH MORALES MD Ot W19.XXXA UNSPECIFIED FALL, INITIAL ENCOUNTER 03/17/2019 DEBORAH MORALES MD Ot Y92.230 PATIENT ROOM IN HOSPITAL PLACE 03/17/2019 DEBORAH MORALES MD Ot Z79.84 TANNING SOLUTION MAKER (CURRENT) USE OF ORAL HYPOGLYC 03/17/2019 DEBORAH MORALES MD Ot Z88.0 ALLERGY STATUS TO PENICILLIN 03/17/2019 DEBORAH MORALES MD Ot Z88.2 ALLERGY STATUS TO SULFONAMIDES STATUS 03/23/2019 RICH HERNANDEZ [employer] MAKE[employer] ARTIST Ot I99.9 UNSPECIFIED DISORDER OF CIRCULATORY SYST 03/23/2019 RICH HERNANDEZ [employer] MAKE[employer] ARTIST Ot M25.78 OSTEOPHYTE, VERTEBRAE 03/23/2019 RICH HERNANDEZ [employer] MAKE[employer] ARTIST Ot M43.8X6 OTHER SPECIFIED DEFORMING DORSOPATHIES, 03/23/2019 RICH HERNANDEZ [employer] MAKE[employer] ARTIST Ot M47.816 SPONDYLOSIS W/O MYELOPATHY OR RADICULOPA 03/23/2019 RICH HERNANDEZP Ot M51.35 OTHER INTERVERTEBRAL DISC DEGENERATION, 03/23/2019 RICH HERNANDEZ [employer] MAKE[employer] ARTIST Ot M51.36 OTHER INTERVERTEBRAL DISC DEGENERATION, 03/23/2019 RICH HERNANDEZ [employer] MAKEUP ARTIST Ot M51.37 OTHER INTERVERTEBRAL DISC DEGENERATION, 03/29/2019 RICH HERNANDEZ [employer] MAKEUP ARTIST Ot I99.9 UNSPECIFIED DISORDER OF CIRCULATORY SYST 03/29/2019 RICH HERNANDEZ [employer] MAKE[employer] ARTIST Ot M16.11 UNILATERAL PRIMARY OSTEOARTHRITIS, RIGHT 03/29/2019 RICH HERNANDEZ [employer] MAKE[employer] ARTIST Ot M25.78 OSTEOPHYTE, VERTEBRAE 03/29/2019 RICH HERNANDEZ [employer] MAKEUP ARTIST Ot M43.8X6 OTHER SPECIFIED DEFORMING DORSOPATHIES, 03/29/2019 RICH HERNANDEZ [employer] MAKEUP ARTIST Ot M47.816 SPONDYLOSIS W/O MYELOPATHY OR RADICULOPA 03/29/2019 RICH HERNANDEZ [employer] MAKEUP ARTIST Ot M51.35 OTHER INTERVERTEBRAL DISC DEGENERATION, 03/29/2019 RICH HERNANDEZ W[employer] MAKEUP ARTIST Ot M51.36 OTHER INTERVERTEBRAL DISC DEGENERATION, 03/29/2019 RICH HERNANDEZ W[employer] MAKEUP ARTIST Ot M51.37 OTHER INTERVERTEBRAL DISC DEGENERATION, 04/24/2019 RICH HERNANDEZ [employer] MAKEUP ARTIST Ot I99.9 UNSPECIFIED DISORDER OF CIRCULATORY SYST 04/24/2019 RICH HERNANDEZ [employer] MAKEUP ARTIST Ot M16.11 UNILATERAL PRIMARY OSTEOARTHRITIS, RIGHT 04/24/2019 RICH HERNANDEZ [employer] MAKEUP ARTIST Ot M25.78 OSTEOPHYTE, VERTEBRAE 04/24/2019 RICH HERNANDEZ [employer] MAKEUP ARTIST Ot M43.8X6 OTHER SPECIFIED DEFORMING DORSOPATHIES, 04/24/2019 RICH HERNANDEZ [place] MAKEUP ARTIST Ot M47.816 SPONDYLOSIS W/O MYELOPATHY OR RADICULOPA 04/24/2019 RICH HERNANDEZ [place] MAKEUP ARTIST Ot M51.35 OTHER INTERVERTEBRAL DISC DEGENERATION, 04/24/2019 RICH HERNANDEZ [place] MAKEUP ARTIST Ot M51.36 OTHER INTERVERTEBRAL DISC DEGENERATION, 04/24/2019 RICH HERNANDEZ [place] MAKEUP ARTIST Ot M51.37 OTHER INTERVERTEBRAL DISC DEGENERATION, 05/27/2019 LARRY OWEN, JUSTICE Katz Ot E16.2 HYPOGLYCEMIA, UNSPECIFIED 05/27/2019 LARRY OWEN, JUSTICE Katz Ot F41.9 ANXIETY DISORDER, UNSPECIFIED 05/27/2019 LARRY OWEN, JUSTICE T Ot G89.29 OTHER CHRONIC PAIN 05/27/2019 LARRY OWEN, JUSTICE Katz Ot I10 ESSENTIAL (PRIMARY) HYPERTENSION 05/27/2019 LARRY OWEN, JUSTICE Katz Ot M25.551 PAIN IN RIGHT HIP 05/27/2019 LARRY OWEN, JUSTICE Katz Ot M54.5 LOW BACK PAIN 05/27/2019 LARRY OWEN, JUSTICE Katz Ot Z79.51 ASSISTED (CURRENT) USE OF INHALED STERO 05/27/2019 LARRY OWEN, JUSTICE Katz Ot Z80.8 FAMILY HISTORY OF MALIGNANT NEOPLASM OF 05/27/2019 BRUEGJUSTICE KHALIL MD Ot Z82.49 FAMILY HX OF ISCHEM HEART DIS AND OTH DI 05/27/2019 JUSTICE JUAREZ MD Ot Z88.0 ALLERGY STATUS TO PENICILLIN 05/27/2019 JUSTICE JUAREZ MD Ot Z88.2 ALLERGY STATUS TO SULFONAMIDES STATUS 05/27/2019 JUSTICE JUAREZ MD Ot Z88.8 ALLERGY STATUS TO OTH DRUG/MEDS/BIOL SUB 05/27/2019 JUSTICE JUAREZ MD Ot Z90.49 ACQUIRED ABSENCE OF OTHER SPECIFIED PART 05/27/2019 JUSTICE JUAREZ MD Ot Z90.89 ACQUIRED ABSENCE OF OTHER ORGANS 05/27/2019 JUSTICE JUAREZ MD Ot Z91.041 RADIOGRAPHIC DYE ALLERGY STATUS 05/27/2019 JUSTICE JUAREZ MD Ot Z91.81 HISTORY OF FALLING 05/30/2019 JUSTICE JUAREZ MD Ot E16.2 HYPOGLYCEMIA, UNSPECIFIED 05/30/2019 JUSTICE JUAREZ MD Ot F41.9 ANXIETY DISORDER, UNSPECIFIED 05/30/2019 JUSTICE JUAREZ MD Ot G89.29 OTHER CHRONIC PAIN 05/30/2019 JUSTICE JUAREZ MD Ot I10 ESSENTIAL (PRIMARY) HYPERTENSION 05/30/2019 JUSTICE JUAREZ MD Ot M25.551 PAIN IN RIGHT HIP 05/30/2019 JUSTICE JUAREZ MD Ot M54.5 LOW BACK PAIN 05/30/2019 JUSTICE JUAREZ MD Ot Z79.51 TANNING SOLUTION MAKER (CURRENT) USE OF INHALED STERO 05/30/2019 JUSTICE JUAREZ MD Ot Z80.8 FAMILY HISTORY OF MALIGNANT NEOPLASM OF 05/30/2019 JUSTICE JUAREZ MD Ot Z82.49 FAMILY HX OF ISCHEM HEART DIS AND OTH DI 05/30/2019 JUSTICE JUAREZ MD Ot Z88.0 ALLERGY STATUS TO PENICILLIN 05/30/2019 UJSTICE JUAREZ MD Ot Z88.2 ALLERGY STATUS TO SULFONAMIDES STATUS 05/30/2019 JUSTICE JUAREZ MD Ot Z88.8 ALLERGY STATUS TO OTH DRUG/MEDS/BIOL SUB 05/30/2019 JUSTICE JUAREZ MD Ot Z90.49 ACQUIRED ABSENCE OF OTHER SPECIFIED PART 05/30/2019 JUSTICE JUAREZ MD Ot Z90.89 ACQUIRED ABSENCE OF OTHER ORGANS 05/30/2019 JUSTICE JUAREZ MD Ot Z91.041 RADIOGRAPHIC DYE ALLERGY STATUS 05/30/2019 JUSTICE JUAREZ MD Ot Z91.81 HISTORY OF FALLING 2019 GABE DIAMOND MD Ot 611.72 LUMP OR MASS IN BREAST 2019 GABE DIAMOND MD Ot 611.72 LUMP OR MASS IN BREAST 2019 GABE DIAMOND MD Ot 793.89 OTH (ABN) FINDINGS ON RADIOLOGICAL EXAMI 2019 GABE DIAMOND MD Ot Z12.31 ENCNTR SCREEN MAMMOGRAM FOR MALIGNANT NE 2019 NEAL TENORIO ARMATURE BALANCER Ot R10.11 RIGHT UPPER QUADRANT PAIN 2019 NEAL TENORIO ARMATURE BALANCER Ot Z12.31 ENCNTR SCREEN MAMMOGRAM FOR MALIGNANT NE 2019 ANDREW OWEN, DEBORAH Elizondo Ot E11.9 TYPE 2 DIABETES MELLITUS WITHOUT COMPLIC 2019 NEAL TENORIO ARMATURE BALANCER Ot R92.0 MAMMOGRAPHIC MICROCALCIFICATION FOUND ON 2019 NEAL TENORIO ARMATURE BALANCER Ot Z12.31 ENCNTR SCREEN MAMMOGRAM FOR MALIGNANT NE 2019 RICH HERNANDEZP Ot I99.9 UNSPECIFIED DISORDER OF CIRCULATORY SYST 2019 RICH HERNANDEZ [place] MAKEUP ARTIST Ot M16.11 UNILATERAL PRIMARY OSTEOARTHRITIS, RIGHT 2019 RICH HERNANDEZ [place] MAKEUP ARTIST Ot M25.78 OSTEOPHYTE, VERTEBRAE 2019 RICH HERNANDEZ [place] MAKEUP ARTIST Ot M43.8X6 OTHER SPECIFIED DEFORMING DORSOPATHIES, 2019 RICH HERNANDEZ [place] MAKEUP ARTIST Ot M47.816 SPONDYLOSIS W/O MYELOPATHY OR RADICULOPA 2019 RICH HERNANDEZ [place] MAKEUP ARTIST Ot M51.35 OTHER INTERVERTEBRAL DISC DEGENERATION, 2019 RICH HERNANDEZ [place] MAKEUP ARTIST Ot M51.36 OTHER INTERVERTEBRAL DISC DEGENERATION, 2019 MARY RICH M [place] MAKEUP ARTIST Ot M51.37 OTHER INTERVERTEBRAL DISC DEGENERATION, 2019 ANDREW OWEN, DEBORAH Elizondo Ot M16.11 UNILATERAL PRIMARY OSTEOARTHRITIS, RIGHT 2019 RICH HERNANDEZ [place] MAKEUP ARTIST Ot M16.11 UNILATERAL PRIMARY OSTEOARTHRITIS, RIGHT 2019 RICH HERNANDEZ [place] MAKEUP ARTIST Ot M25.78 OSTEOPHYTE, VERTEBRAE 2019 RICH HERNANDEZ [place] MAKEUP ARTIST Ot M41.86 OTHER FORMS OF SCOLIOSIS, LUMBAR REGION 2019 RICH HERNANDEZ [employer] ARTIST Ot M47.817 SPONDYLS 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 2019 RICH HERNANDEZ [employer] MAKE[employer] ARTIST Ot M48.061 SPINAL STENOSIS, LUMBAR REGION WITHOUT N 2019 RICH HERNANDEZ [employer] MAKEUP ARTIST Ot M51.36 OTHER INTERVERTEBRAL DISC DEGENERATION, 2019 RICH HERNANDEZ [employer] MAKE[employer] ARTIST Ot M67.853 OTHER SPECIFIED DISORDERS OF TENDON, RIG 2019 RICH HERNANDEZ [employer] MAKE[employer] ARTIST Ot M67.854 OTHER SPECIFIED DISORDERS OF TENDON, LEF 2019 RICH HERNANDEZ [employer] MAKE[employer] ARTIST Ot M89.9 DISORDER OF BONE, UNSPECIFIED 2019 RICH HERNANDEZ [employer] MAKEUP ARTIST Ot Z98.890 OTHER SPECIFIED POSTPROCEDURAL STATES 2019 DEBORAH MORALES MD Ot E11.9 TYPE 2 DIABETES MELLITUS WITHOUT COMPLIC 2019 DEBORAH MORALES MD Ot E16.2 HYPOGLYCEMIA, UNSPECIFIED 2019 DEBORAH MORALES MD Ot F2 3 BRIEF PSYCHOTIC DISORDER 2019 DEBORAH MORALES MD Ot F41.9 ANXIETY DISORDER, UNSPECIFIED 2019 DEBORAH MORALES MD Ot G89.29 OTHER CHRONIC PAIN 2019 DEBORAH MORALES MD Ot I1 0 ESSENTIAL (PRIMARY) HYPERTENSION 2019 DEBORAH MORALES MD Ot M19.90 UNSPECIFIED OSTEOARTHRITIS, UNSPECIFIED 2019 DEBORAH MORALES MD Ot M54.9 DORSALGIA, UNSPECIFIED 2019 DEBORAH MORALES MD Ot R41.82 ALTERED MENTAL STATUS, UNSPECIFIED 2019 DEBORAH MORALES MD Ot R45.6 VIOLENT BEHAVIOR 2019 DEBORAH MORALES MD Ot R53.81 OTHER MALAISE 2019 DEBORAH MORALES MD Ot Z79.891 ASSISTED (CURRENT) USE OF OPIATE ANALGE 2019 DEBORAH MORALES MD Ot Z79.899 OTHER ASSISTED (CURRENT) DRUG THERAPY 2019 DEBORAH MORALES MD Ot Z80.8 FAMILY HISTORY OF MALIGNANT NEOPLASM OF 2019 DEBORAH MORALES MD Ot Z82.3 FAMILY HISTORY OF STROKE 2019 DEBORAH MORALES MD Ot Z82.49 FAMILY HX OF ISCHEM HEART DIS AND OTH DI 2019 DEBORAH MORALES MD Ot Z88.0 ALLERGY STATUS TO PENICILLIN 2019 DEBORAH MORALES MD Ot Z88.2 ALLERGY STATUS TO SULFONAMIDES STATUS 2019 DEBORAH MORALES MD Ot Z88.8 ALLERGY STATUS TO OTH DRUG/MEDS/BIOL SUB 2019 DEBORAH MORALES MD Ot Z90.49 ACQUIRED ABSENCE OF OTHER SPECIFIED PART 2019 DEBORAH MORALES MD Ot Z90.722 ACQUIRED ABSENCE OF OVARIES, BILATERAL 2019 DBEORAH MORALES MD Ot Z91.041 RADIOGRAPHIC DYE ALLERGY STATUS 06/02/2019 GABE DIAMOND MD Ot 611.72 LUMP OR MASS IN BREAST 06/02/2019 GABE DIAMOND MD Ot 611.72 LUMP OR MASS IN BREAST 06/02/2019 GABE DIAMOND MD Ot 793.89 OTH (ABN) FINDINGS ON RADIOLOGICAL EXAMI 06/02/2019 GABE DIAMOND MD Ot Z12.31 ENCNTR SCREEN MAMMOGRAM FOR MALIGNANT NE 06/02/2019 NEAL TENORIO APRN Ot R10.11 RIGHT UPPER QUADRANT PAIN 06/02/2019 NEAL TENORIO APRN Ot Z12.31 ENCNTR SCREEN MAMMOGRAM FOR MALIGNANT NE 06/02/2019 DEBORAH MORALES MD Ot E11.9 TYPE 2 DIABETES MELLITUS WITHOUT COMPLIC 06/02/2019 NEAL TENORIO APRN Ot R92.0 MAMMOGRAPHIC MICROCALCIFICATION FOUND ON 06/02/2019 NEAL TENORIO APRN Ot Z12.31 ENCNTR SCREEN MAMMOGRAM FOR MALIGNANT NE 06/02/2019 MARYRICH Laurie [employer] ARTIST Ot I99.9 UNSPECIFIED DISORDER OF CIRCULATORY SYST 06/02/2019 MARYLILIANATESS Sullivan [employer] ARTIST Ot M16.11 UNILATERAL PRIMARY OSTEOARTHRITIS, RIGHT 06/02/2019 HERNANDEZRICH Laurie SAWYERP Ot M25.78 OSTEOPHYTE, VERTEBRAE 06/02/2019 MARYLILIANATESS Sullivan [employer]IST Ot M43.8X6 OTHER SPECIFIED DEFORMING DORSOPATHIES, 06/02/2019 MARYLILIANATESS Sullivan [employer]IST Ot M47.816 SPONDYLOSIS W/O MYELOPATHY OR RADICULOPA 06/02/2019 MARYLILIANATESS Sullivan [employer] ARTIST Ot M51.35 OTHER INTERVERTEBRAL DISC DEGENERATION, 06/02/2019 MARY RICHSOPHY SAWYERP Ot M51.36 OTHER INTERVERTEBRAL DISC DEGENERATION, 06/02/2019 MARYLILIANATESS Sullivan [employer]IST Ot M51.37 OTHER INTERVERTEBRAL DISC DEGENERATION, 06/02/2019 ANDREW OWEN, DEBORAH Elizondo Ot M16.11 UNILATERAL PRIMARY OSTEOARTHRITIS, RIGHT 06/02/2019 MARYLILIANATESS Sullivan [employer] ARTIST Ot M16.11 UNILATERAL PRIMARY OSTEOARTHRITIS, RIGHT 06/02/2019 MARYRICH Laurie [employer] ARTIST Ot M25.78 OSTEOPHYTE, VERTEBRAE 06/02/2019 MARYLILIANATESS Sullivan [employer] ARTIST Ot M41.86 OTHER FORMS OF SCOLIOSIS, LUMBAR REGION 06/02/2019 MARY RICH M [employer]IST Ot M47.817 SPONDYLS 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 06/02/2019 RICH HERNANDEZ [employer] MAKEUP ARTIST Ot M48.061 SPINAL STENOSIS, LUMBAR REGION WITHOUT N 06/02/2019 MARY RICH M [employer]IST Ot M51.36 OTHER INTERVERTEBRAL DISC DEGENERATION, 06/02/2019 MARY RICH M [employer]IST Ot M67.853 OTHER SPECIFIED DISORDERS OF TENDON, RIG 06/02/2019 RICH HERNANDEZ [employer] MAKEUP ARTIST Ot M67.854 OTHER SPECIFIED DISORDERS OF TENDON, LEF 06/02/2019 RICH HERNANDEZ [employer] MAKEUP ARTIST Ot M89.9 DISORDER OF BONE, UNSPECIFIED 06/02/2019 RICH HERNANDEZP Ot Z98.890 OTHER SPECIFIED POSTPROCEDURAL STATES 09/15/2019 ANDREW OWEN, DEBORAH Elizondo Ot A08.4 VIRAL INTESTINAL INFECTION, UNSPECIFIED 09/15/2019 DEBORAH MORALES MD Ot D72.829 ELEVATED WHITE BLOOD CELL COUNT, UNSPECI 09/15/2019 DEBORAH MORALES MD Ot 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 09/15/2019 DEBORAH MORALES MD Ot E11.42 TYPE 2 DIABETES MELLITUS WITH DIABETIC P 09/15/2019 DEBORAH MORALES MD Ot E78.00 PURE HYPERCHOLESTEROLEMIA, UNSPECIFIED 09/15/2019 DEBORAH MORALES MD Ot E87.5 HYPERKALEMIA 09/15/2019 DEBORAH MORALES MD Ot F41.9 ANXIETY DISORDER, UNSPECIFIED 09/15/2019 DEBORAH MORALES MD Ot G89.29 OTHER CHRONIC PAIN 09/15/2019 DEBORAH MORALES MD Ot I1 0 ESSENTIAL (PRIMARY) HYPERTENSION 09/15/2019 DEBORAH MORALES MD Ot M19.90 UNSPECIFIED OSTEOARTHRITIS, UNSPECIFIED 09/15/2019 DEBORAH MORALES MD Ot M54.9 DORSALGIA, UNSPECIFIED 09/15/2019 DEBORAH MORALES MD Ot N18.9 CHRONIC KIDNEY DISEASE, UNSPECIFIED 09/15/2019 DEBORAH MORALES MD Ot Z79.4 TANNING SOLUTION [employer]KER (CURRENT) USE OF INSULIN 09/15/2019 DEBORAH MORALES MD Ot Z79.891 TANNING SOLUTION MAKER (CURRENT) USE OF OPIATE ANALGE 09/15/2019 DEBORAH MORALES MD Ot Z79.899 OTHER ASSISTED (CURRENT) DRUG THERAPY 09/15/2019 DEBORAH MORALES MD Ot Z80.8 FAMILY HISTORY OF MALIGNANT NEOPLASM OF 09/15/2019 DEBORAH MORALES MD Ot Z82.3 FAMILY HISTORY OF STROKE 09/15/2019 DEBORAH MORALES MD Ot Z82.49 FAMILY HX OF ISCHEM HEART DIS AND OTH DI 09/15/2019 DEBORAH MORALES MD Ot Z88.0 ALLERGY STATUS TO PENICILLIN 09/15/2019 DEBORAH MORALES MD Ot Z88.2 ALLERGY STATUS TO SULFONAMIDES STATUS 09/15/2019 DEBORAH MORALES MD Ot Z88.8 ALLERGY STATUS TO OTH DRUG/MEDS/BIOL SUB 09/15/2019 DEBORAH MORALES MD Ot Z90.710 ACQUIRED ABSENCE OF BOTH CERVIX AND UTER 09/15/2019 DEBORAH MORALES MD Ot Z90.721 ACQUIRED ABSENCE OF OVARIES, UNILATERAL 09/15/2019 DEBORAH MORALES MD Ot Z91.041 RADIOGRAPHIC DYE ALLERGY STATUS 09/15/2019 DEBORAH MORALES MD Ot A08.4 VIRAL INTESTINAL INFECTION, UNSPECIFIED 09/15/2019 DEBORAH MORALES MD Ot D72.829 ELEVATED WHITE BLOOD CELL COUNT, UNSPECI 09/15/2019 DEBORAH MORALES MD Ot 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 09/15/2019 DEBORAH MORALES MD Ot E11.42 TYPE 2 DIABETES MELLITUS WITH DIABETIC P 09/15/2019 DEBORAH MORALES MD Ot E78.00 PURE HYPERCHOLESTEROLEMIA, UNSPECIFIED 09/15/2019 DEBORAH MORALES MD Ot E87.5 HYPERKALEMIA 09/15/2019 DEBORAH MORALES MD Ot F41.9 ANXIETY DISORDER, UNSPECIFIED 09/15/2019 DEBORAH MORALES MD Ot G89.29 OTHER CHRONIC PAIN 09/15/2019 DEBORAH MORALES MD Ot I1 0 ESSENTIAL (PRIMARY) HYPERTENSION 09/15/2019 DEBORAH MORALES MD Ot M19.90 UNSPECIFIED OSTEOARTHRITIS, UNSPECIFIED 09/15/2019 DEBORAH MORALES MD Ot M54.9 DORSALGIA, UNSPECIFIED 09/15/2019 DEBORAH MORALES MD Ot N18.9 CHRONIC KIDNEY DISEASE, UNSPECIFIED 09/15/2019 DEBORAH MORALES MD Ot Z79.4 TANNING SOLUTION MAKER (CURRENT) USE OF INSULIN 09/15/2019 DEBORAH MORALES MD Ot Z79.891 TANNING SOLUTION MAKER (CURRENT) USE OF OPIATE ANALGE 09/15/2019 DEBORAH MORALES MD Ot Z79.899 OTHER ASSISTED (CURRENT) DRUG THERAPY 09/15/2019 DEBORAH MORALES MD Ot Z80.8 FAMILY HISTORY OF MALIGNANT NEOPLASM OF 09/15/2019 DEBORAH MORALES MD Ot Z82.3 FAMILY HISTORY OF STROKE 09/15/2019 DEBORAH MORALES MD Ot Z82.49 FAMILY HX OF ISCHEM HEART DIS AND OTH DI 09/15/2019 DEBORAH MORALES MD Ot Z88.0 ALLERGY STATUS TO PENICILLIN 09/15/2019 DEBORAH MORALES MD, Ot Z88.2 ALLERGY STATUS TO SULFONAMIDES STATUS 09/15/2019 DEBORAH MORALES MD Ot Z88.8 ALLERGY STATUS TO OTH DRUG/MEDS/BIOL SUB 09/15/2019 DEBORAH MORALES MD Ot Z90.710 ACQUIRED ABSENCE OF BOTH CERVIX AND UTER 09/15/2019 DEBORAH MORALES MD Ot Z90.721 ACQUIRED ABSENCE OF OVARIES, UNILATERAL 09/15/2019 DEBORAH MORALES MD Ot Z91.041 RADIOGRAPHIC DYE ALLERGY STATUS 10/03/2019 NEAL TENORIO APRN Ot Z12.31 ENCNTR SCREEN MAMMOGRAM FOR MALIGNANT NE Procedures There is no data. Results Test Result Range Capillary blood glucose measurement by g lucometer (mass/volume) - 04/27/17 12:06 Capillary blood glucose measurement by glucometer (mas s/volume) 141 mg/dL 70-110 Complete blood count (CBC) with automate d white blood cell (WBC) differential - 04/27/17 12:10 Blood leukocytes automated count (number/volume) 7.8 10*3/uL 4.3-11.0 Blood erythrocytes automated count (number/volume) 5.28 10*6/uL 4.35-5.85 Venous blood hemoglobin measurement (mass/volume) 15.0 g/dL 11.5-16.0 Blood hematocrit (volume fraction) 44 % 35-52 Automated erythrocyte mean corpuscular volume 83 [ foz_us] 80-99 Automated erythrocyte mean corpuscular h emoglobin (mass per erythrocyte) 28 pg 25-34 Automated erythrocyte mean corpuscular h emoglobin concentration measurement (mass/volume) 34 g/dL 32-36 Automated erythrocyte distribution width ratio 14. 1 % 10.0- 14.5 Automated blood platelet count [...] 10*3 1.0-4.0 Blood monocytes automated count (number/volume) 0. 6 10*3 0.0-1.0 Automated eosinophil count 0.1 10*3/uL 0 .0-0.3 Automated blood basophil count (count/volume) 0.0 10*3/uL 0.0-0.1 Comprehensive metabolic panel - 04/27/17 12:10 Serum or plasma sodium measurement (moles/volume) 141 mmol/L 135-145 Serum or plasma potassium measurement (moles/volume) 3.8 mmol/L 3.6-5.0 Serum or plasma chloride measurement (moles/volume) 107 mmol/L 98-107 Carbon dioxide 22 mmol/L 21-32 Serum or plasma anion gap determination (moles/volume) 12 mmol/L 5-14 Serum or plasma urea nitrogen measurement (mass/volume ) 24 mg/dL 7-18 Serum or plasma creatinine measurement (mass/volume) 1.13 mg/dL 0.60-1.30 Serum or plasma urea nitrogen/creatinine mass ratio 21 NRG Serum or plasma creatinine measurement w ith calculation of estimated glomerular filtration rate 47 NRG Serum or plasma glucose measurement (mass/volume) 137 mg/dL 70-105 Serum or plasma calcium measurement (mass/volume) 9.9 mg/dL 8.5-10.1 Serum or plasma total bilirubin measurement (mass/volu me) 0.7 mg/dL 0.1-1.0 Serum or plasma alkaline phosphatase truman surement (enzymatic activity/volume) 101 U/L 40-136 Serum or plasma aspartate aminotransfera se measurement (enzymatic activity/volume) 25 U/L 5-34 Serum or plasma alanine aminotransferase measurement (enzymatic activity/volume) 29 U/L 0-55 Serum or plasma protein measurement (mass/volume) 7.3 g/dL 6.4-8.2 Serum or plasma albumin measurement (mass/volume) 3.9 g/dL 3.2-4.5 Lipase - 04/27/17 12:10 Lipase 14 U/L 8-78 Complete urinalysis with reflex to cultu re - 04/27/17 13:30 Urine color determination YELLOW NRG Urine clarity determination CLEAR NR G Urine pH measurement by test strip 7 5-9 Specific gravity of urine by test strip 1.005 1.016-1.022 Urine protein assay by test strip, semi-quantitative 2+ NEGATIVE Urine glucose detection by automated test strip NE GATIVE NEGATIVE Erythrocytes detection in urine sediment by light micr oscopy NEGATIVE NEGATIVE Urine ketones detection by automated test strip NE GATIVE NEGATIVE Urine nitrite detection by test strip NEGATIVE NEGATIVE Urine total bilirubin detection by test strip NEGA TIVE NEGATIVE Urine urobilinogen measurement by automated test strip (mass/volume) NORMAL NORMAL Urine leukocyte esterase detection by dipstick NEG ATIVE NEGATIVE Automated urine sediment erythrocyte cou nt by microscopy (number/high power field) NONE NRG Automated urine sediment leukocyte count by microscopy (number/high power field) RARE NRG Bacteria detection in urine sediment by light microsco py NEGATIVE NRG Crystals detection in urine sediment by light microsco py NONE NRG Casts detection in urine sediment by light microscopy NONE NRG Mucus detection in urine sediment by light microscopy NEGATIVE NRG Complete urinalysis with reflex to culture NO NRG Complete blood count (CBC) with automate d white blood cell (WBC) differential - 03/08/19 15:05 Blood leukocytes automated count (number/volume) 13.4 10*3/uL 4.3-11.0 Blood erythrocytes automated count (number/volume) 5.22 10*6/uL 4.35-5.85 Venous blood hemoglobin measurement (mass/volume) 15.8 g/dL 11.5-16.0 Blood hematocrit (volume fraction) 45 % 35-52 Automated erythrocyte mean corpuscular volume 86 [ foz_us] 80-99 Automated erythrocyte mean corpuscular h emoglobin (mass per erythrocyte) 30 pg 25-34 Automated erythrocyte mean corpuscular h emoglobin concentration measurement (mass/volume) 35 g/dL 32-36 Automated erythrocyte distribution width ratio 12. 9 % 10.0- 14.5 Automated blood platelet count [...] 10*3 1.0-4.0 Blood monocytes automated count (number/volume) 0. 9 10*3 0.0-1.0 Automated eosinophil count 0.1 10*3/uL 0 .0-0.3 Automated blood basophil count (count/volume) 0.1 10*3/uL 0.0-0.1 Comprehensive metabolic panel - 03/08/19 15:05 Serum or plasma sodium measurement (moles/volume) 133 mmol/L 135-145 Serum or plasma potassium measurement (moles/volume) 4.2 mmol/L 3.6-5.0 Serum or plasma chloride measurement (moles/volume) 99 mmol/L 98-107 Carbon dioxide 20 mmol/L 21-32 Serum or plasma anion gap determination (moles/volume) 14 mmol/L 5-14 Serum or plasma urea nitrogen measurement (mass/volume ) 21 mg/dL 7-18 Serum or plasma creatinine measurement (mass/volume) 1.33 mg/dL 0.60-1.30 Serum or plasma urea nitrogen/creatinine mass ratio 16 NRG Serum or plasma creatinine measurement w ith calculation of estimated glomerular filtration rate 39 NRG Serum or plasma glucose measurement (mass/volume) 160 mg/dL 70-105 Serum or plasma calcium measurement (mass/volume) 10.1 mg/dL 8.5-10.1 Serum or plasma total bilirubin measurement (mass/volu me) 0.8 mg/dL 0.1-1.0 Serum or plasma alkaline phosphatase truman surement (enzymatic activity/volume) 91 U/L 40-136 Serum or plasma aspartate aminotransfera se measurement (enzymatic activity/volume) 24 U/L 5-34 Serum or plasma alanine aminotransferase measurement (enzymatic activity/volume) 23 U/L 0-55 Serum or plasma protein measurement (mass/volume) 7.2 g/dL 6.4-8.2 Serum or plasma albumin measurement (mass/volume) 4.2 g/dL 3.2-4.5 CALCIUM CORRECTED 9.9 mg/dL 8.5-10.1 Magnesium - 03/08/19 15:05 Magnesium 1.9 mg/dL 1.8-2.4 Lipase - 03/08/19 15:05 Lipase 11 U/L 8-78 Serum or plasma C reactive protein measu rement (mass/volume) - 03/08/19 15:05 Serum or plasma C reactive protein measurement (mass/v olume) 0.53 mg/dL 0.00-0.50 Capillary blood glucose measurement by g lucometer (mass/volume) - 03/08/19 15:11 Capillary blood glucose measurement by glucometer (mas s/volume) 152 mg/dL 70-110 Capillary blood glucose measurement by g lucometer (mass/volume) - 03/08/19 21:05 Capillary blood glucose measurement by glucometer (mas s/volume) 139 mg/dL 70-110 Complete blood count (CBC) with automate d white blood cell (WBC) differential - 03/09/19 05:15 Blood leukocytes automated count (number/volume) 11.4 10*3/uL 4.3-11.0 Blood erythrocytes automated count (number/volume) 4.47 10*6/uL 4.35-5.85 Venous blood hemoglobin measurement (mass/volume) 13.6 g/dL 11.5-16.0 Blood hematocrit (volume fraction) 40 % 35-52 Automated erythrocyte mean corpuscular volume 89 [ foz_us] 80-99 Automated erythrocyte mean corpuscular h emoglobin (mass per erythrocyte) 30 pg 25-34 Automated erythrocyte mean corpuscular h emoglobin concentration measurement (mass/volume) 34 g/dL 32-36 Automated erythrocyte distribution width ratio 13. 5 % 10.0- 14.5 Automated blood platelet count (count/volume) 206 10*3/uL 130-400 Automated blood platelet mean volume measurement 10.4 [foz_us] 7.4-10.4 Automated blood neutrophils/100 leukocytes 68 % 42-75 Automated blood lymphocytes/100 leukocytes 22 % 12-44 Blood monocytes/100 leukocytes 9 % 0-12 Automated blood eosinophils/100 leukocytes 1 % 0-10 Automated blood basophils/100 leukocytes 0 % 0-10 Blood neutrophils automated count (number/volume) 7.7 10*3 1.8-7.8 Blood lymphocytes automated count (number/volume) 2.5 10*3 1.0-4.0 Blood monocytes automated count (number/volume) 1. 0 10*3 0.0-1.0 Automated eosinophil count 0.1 10*3/uL 0 .0-0.3 Automated blood basophil count (count/volume) 0.0 10*3/uL 0.0-0.1 Whole blood basic metabolic panel - 03/22 05:15 Serum or plasma sodium measurement (moles/volume) 139 mmol/L 135-145 Serum or plasma potassium measurement (moles/volume) 5.2 mmol/L 3.6-5.0 Serum or plasma chloride measurement (moles/volume) 111 mmol/L 98-107 Carbon dioxide 17 mmol/L 21-32 Serum or plasma anion gap determination (moles/volume) 11 mmol/L 5-14 Serum or plasma urea nitrogen measurement (mass/volume ) 20 mg/dL 7-18 Serum or plasma creatinine measurement (mass/volume) 1.15 mg/dL 0.60-1.30 Serum or plasma urea nitrogen/creatinine mass ratio 17 NRG Serum or plasma creatinine measurement w ith calculation of estimated glomerular filtration rate 46 NRG Serum or plasma glucose measurement (mass/volume) 83 mg/dL 70-105 Serum or plasma calcium measurement (mass/volume) 9.0 mg/dL 8.5-10.1 Capillary blood glucose measurement by g lucometer (mass/volume) - 03/10/19 06:00 Capillary blood glucose measurement by glucometer (mas s/volume) 216 mg/dL 70-110 Capillary blood glucose measurement by g lucometer (mass/volume) - 03/11/19 06:15 Capillary blood glucose measurement by glucometer (mas s/volume) 151 mg/dL 70-110 Capillary blood glucose measurement by g lucometer (mass/volume) - 03/12/19 06:02 Capillary blood glucose measurement by glucometer (mas s/volume) 73 mg/dL 70-110 Capillary blood glucose measurement by g lucometer (mass/volume) - 03/12/19 19:54 Capillary blood glucose measurement by glucometer (mas s/volume) 125 mg/dL 70-110 Capillary blood glucose measurement by g lucometer (mass/volume) - 03/13/19 05:14 Capillary blood glucose measurement by glucometer (mas s/volume) 87 mg/dL 70-110 Complete blood count (CBC) with automate d white blood cell (WBC) differential - 03/13/19 05:40 Blood leukocytes automated count (number/volume) 9.3 10*3/uL 4.3-11.0 Blood erythrocytes automated count (number/volume) 4.26 10*6/uL 4.35-5.85 Venous blood hemoglobin measurement (mass/volume) 12.7 g/dL 11.5-16.0 Blood hematocrit (volume fraction) 38 % 35-52 Automated erythrocyte mean corpuscular volume 89 [ foz_us] 80-99 Automated erythrocyte mean corpuscular h emoglobin (mass per erythrocyte) 30 pg 25-34 Automated erythrocyte mean corpuscular h emoglobin concentration measurement (mass/volume) 34 g/dL 32-36 Automated erythrocyte distribution width ratio 13. 4 % 10.0- 14.5 Automated blood platelet count (count/volume) 209 10*3/uL 130-400 Automated blood platelet mean volume measurement 10.2 [foz_us] 7.4-10.4 Automated blood neutrophils/100 leukocytes 64 % 42-75 Automated blood lymphocytes/100 leukocytes 26 % 12-44 Blood monocytes/100 leukocytes 8 % 0-12 Automated blood eosinophils/100 leukocytes 3 % 0-10 Automated blood basophils/100 leukocytes 0 % 0-10 Blood neutrophils automated count (number/volume) 5.9 10*3 1.8-7.8 Blood lymphocytes automated count (number/volume) 2.4 10*3 1.0-4.0 Blood monocytes automated count (number/volume) 0. 8 10*3 0.0-1.0 Automated eosinophil count 0.2 10*3/uL 0 .0-0.3 Automated blood basophil count (count/volume) 0.0 10*3/uL 0.0-0.1 Comprehensive metabolic panel - 03/13/19 05:50 Serum or plasma sodium measurement (moles/volume) 141 mmol/L 135-145 Serum or plasma potassium measurement (moles/volume) 4.2 mmol/L 3.6-5.0 Serum or plasma chloride measurement (moles/volume) 106 mmol/L 98-107 Carbon dioxide 28 mmol/L 21-32 Serum or plasma anion gap determination (moles/volume) 7 mmol/L 5-14 Serum or plasma urea nitrogen measurement (mass/volume ) 11 mg/dL 7-18 Serum or plasma creatinine measurement (mass/volume) 1.01 mg/dL 0.60-1.30 Serum or plasma urea nitrogen/creatinine mass ratio 11 NRG Serum or plasma creatinine measurement w ith calculation of estimated glomerular filtration rate 53 NRG Serum or plasma glucose measurement (mass/volume) 97 mg/dL 70-105 Serum or plasma calcium measurement (mass/volume) 9.0 mg/dL 8.5-10.1 Serum or plasma total bilirubin measurement (mass/volu me) 0.6 mg/dL 0.1-1.0 Serum or plasma alkaline phosphatase truman surement (enzymatic activity/volume) 62 U/L 40-136 Serum or plasma aspartate aminotransfera se measurement (enzymatic activity/volume) 18 U/L 5-34 Serum or plasma alanine aminotransferase measurement (enzymatic activity/volume) 18 U/L 0-55 Serum or plasma protein measurement (mass/volume) 5.4 g/dL 6.4-8.2 Serum or plasma albumin measurement (mass/volume) 3.1 g/dL 3.2-4.5 CALCIUM CORRECTED 9.7 mg/dL 8.5-10.1 Complete urinalysis with reflex to cultu re - 03/14/19 20:18 Urine color determination YELLOW NRG Urine clarity determination CLEAR NR G Urine pH measurement by test strip 6.5 5-9 Specific gravity of urine by test strip 1.010 1.016-1.022 Urine protein assay by test strip, semi-quantitative 3+ NEGATIVE Urine glucose detection by automated test strip NE GATIVE NEGATIVE Erythrocytes detection in urine sediment by light micr oscopy 1+ NEGATIVE Urine ketones detection by automated test strip 1+ NEGATIVE Urine nitrite detection by test strip NEGATIVE NEGATIVE Urine total bilirubin detection by test strip NEGA TIVE NEGATIVE Urine urobilinogen measurement by automated test strip (mass/volume) NORMAL NORMAL Urine leukocyte esterase detection by dipstick NEG ATIVE NEGATIVE Automated urine sediment erythrocyte cou nt by microscopy (number/high power field) RARE NRG Automated urine sediment leukocyte count by microscopy (number/high power field) [HPF] NRG Bacteria detection in urine sediment by light microsco py FEW NRG Crystals detection in urine sediment by light microsco py NONE NRG Casts detection in urine sediment by light microscopy NONE NRG Mucus detection in urine sediment by light microscopy NEGATIVE NRG Complete urinalysis with reflex to culture NO NRG Renal epithelial cells detection in urin e sediment by light microscopy RARE NRG Complete urinalysis with reflex to cultu re - 05/27/19 07:30 Urine color determination YELLOW NRG Urine clarity determination CLEAR NR G Urine pH measurement by test strip 5 5-9 Specific gravity of urine by test strip 1.010 1.016-1.022 Urine protein assay by test strip, semi-quantitative NEGATIVE NEGATIVE Urine glucose detection by automated test strip NE GATIVE NEGATIVE Erythrocytes detection in urine sediment by light micr oscopy NEGATIVE NEGATIVE Urine ketones detection by automated test strip NE GATIVE NEGATIVE Urine nitrite detection by test strip NEGATIVE NEGATIVE Urine total bilirubin detection by test strip NEGA TIVE NEGATIVE Urine urobilinogen measurement by automated test strip (mass/volume) NORMAL NORMAL Urine leukocyte esterase detection by dipstick NEG ATIVE NEGATIVE Automated urine sediment erythrocyte cou nt by microscopy (number/high power field) NONE NRG Automated urine sediment leukocyte count by microscopy (number/high power field) NONE NRG Bacteria detection in urine sediment by light microsco py TRACE NRG Crystals detection in urine sediment by light microsco py NONE NRG Casts detection in urine sediment by light microscopy NONE NRG Mucus detection in urine sediment by light microscopy NEGATIVE NRG Complete urinalysis with reflex to culture NO NRG Capillary blood glucose measurement by g lucometer (mass/volume) - 05/27/19 07:38 Capillary blood glucose measurement by glucometer (mas s/volume) 249 mg/dL 70-110 Complete blood count (CBC) with automate d white blood cell (WBC) differential - 05/27/19 08:14 Blood leukocytes automated count (number/volume) 5.9 10*3/uL 4.3-11.0 Blood erythrocytes automated count (number/volume) 4.34 10*6/uL 4.35-5.85 Venous blood hemoglobin measurement (mass/volume) 13.1 g/dL 11.5-16.0 Blood hematocrit (volume fraction) 38 % 35-52 Automated erythrocyte mean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
[2020-02-20] VITALS (7 sets, daily range): BP systolic 123–200; BP diastolic 51–86
--- NOTE | 2020-02-20 | NUR ---
Upon arrival on floor, pt showed this RN her list of home meds and her home medications. Pt insisted that I get in touch with Dr. Camejo because she has not taken any of her medications for the day and she is worried that it will cause more problems. Pt is anxious and crying. Notified Dr. Camejo of pt request. Dr. Camejo gave order to give night medications and to take it from the patient's home medications. Gave the following meds: Amlodipine 10 mg (0.5 tab); Simvastatin 10 mg; Gabapentin 300mg; Metoprolol Tartrate 25 mg. Also received orders for Accuchecks ACHS SS "A" to start in the morning.
[2020-02-20] MEDS ORDERED: fentaNYL INJECTION 100 MCG/2 ML AMP ONE (00:23)
[2020-02-20] MEDS: fentaNYL INJECTION 100 MCG/2 ML AMP IV PRN ×5 (00:43→17:44)
[2020-02-20] MEDS: KETOROLAC 15 MG/ML VIAL IVP PRN ×3 (02:17→20:15)
[2020-02-20] MEDS ORDERED: inSUlin ASPART (NovoLOG) 1 UNIT/0.01 ML (CHARGE PER UNIT) SC SCH (02:45)
[2020-02-20] MEDS: hydrALAZINE (APESOLINE) 20 MG/ML VIAL IV PRN ×2 (03:59→09:23)
[2020-02-20 05:13] LABS: BASOPHILS % (AUTO) 0 % (0-10); EOSINOPHILS # (AUTO) 0.3 10^3/uL (0.0-0.3); EOSINOPHILS % (AUTO) 3 % (0-10); HEMATOCRIT 44 % (35-52); HEMOGLOBIN 14.6 G/DL (11.5-16.0); LYMPHOCYTES # (AUTO) 2.5 X 10^3 (1.0-4.0); LYMPHOCYTES % (AUTO) 27 % (12-44); MEAN CORPUSCULAR HEMOGLOBIN 29 PG (25-34); MEAN CORPUSCULAR HGB CONC 33 G/DL (32-36); MEAN CORPUSCULAR VOLUME 88 FL (80-99); MEAN PLATELET VOLUME 10.3 FL (7.4-10.4); MONOCYTES # (AUTO) 0.8 X 10^3 (0.0-1.0); MONOCYTES % (AUTO) 9 % (0-12); NEUTROPHILS # (AUTO) 5.6 X 10^3 (1.8-7.8); NEUTROPHILS % (AUTO) 61 % (42-75); PLATELET COUNT 247 10^3/uL (130-400); RED CELL DISTRIBUTION WIDTH 13.9 % (10.0-14.5); WHITE BLOOD COUNT 9.1 10^3/uL (4.3-11.0)
--- NOTE | 2020-02-20 05:35 | NUR ---
0530 - Pt still complaining of pain, pain meds not due 0535 - Notified Dr. Camejo that current pain meds does not provide relief to patient. Received orders to increase Fentanyl from 50 mcg q2 to 75mcg and to put a Lidocaine 4% patch on hip area. Will follow orders.
[2020-02-20 05:43] LABS: ALBUMIN 3.9 GM/DL (3.2-4.5); BILIRUBIN,TOTAL 0.4 MG/DL (0.1-1.0); CALCIUM 9.8 MG/DL (8.5-10.1); CREATININE SERUM 1.22 MG/DL (0.60-1.30); POTASSIUM 4.5 MMOL/L (3.6-5.0); TOTAL PROTEIN 6.7 GM/DL (6.4-8.2)
[2020-02-20] MEDS: LIDOCAINE 4% (SALONPAS) PATCH TOP SCH (05:47)
[2020-02-20] MEDS ORDERED: fentaNYL INJECTION 100 MCG/2 ML AMP IVP ONE (06:30)
[2020-02-20] MEDS ORDERED: fentaNYL INJECTION 100 MCG/2 ML AMP IV PRN (06:45)
--- NOTE | 2020-02-20 08:20 | History & Physicial ---
History of Present Illness History of Present Illness Reason for visit/HPI PT IS A 74 Y/O FEMALE WHO IS KNOWN TO ME FROM CLINIC AND PREVIOUS HOSPITALIZATIONS. ADRIANA PRESENTED TO THE EMERGENCY DEPARTMENT LAST NIGHT AFTER HAVING ESCALATION OF BACK PAIN OVER THE PAST WEEK WITH PAIN SO SEVERE YESTERDAY AFTERNOON THAT SHE WAS UNABLE TO MOVE WITHOUT CRYING IN DISTRESS. PER EMERGENCY ROOM PHYSICIAN SHE HAS DEGENERATIVE CHANGES ON CT OF BACK AND HIPS. THE MRI OF HER LUMBAR SPINE A YEAR AGO SHOWED POSSIBLE DISC EXTRUSION, SHE WAS REFERRED TO NEUROSURGERY WHO REFUSED TO OPERATE ON HER INSTEAD REQUIRING PHYSICAL THERAPY WHICH PATIENT DID NOT FEEL HELPED HER PAIN VERY MUCH. SHE HAD A DISAGREEMENT WITH DR. DESOUZA AND DID NOT WANT TO GO BACK TO BE SEEN BY HIM, AND WAS REFUSED TO BE SEEN BY DR. WHALEN UNTIL RELEASED INTO HER CARE BY DR. DESOUZA. THIS WOULD REQUIRE ADRIANA SEEING DR. DESOUZA AGAIN AND SHE IS NOT WILLING TO DO SO. THE PATIENT WAS REPORTING TO ME THIS MORNING THAT SHE WAS IN SEVERE PAIN LAST NIGHT, SHE RECEIVED 75MCG OF FENTANYL AT ABOUT 530AM AND ANOTHER 50MCG AT ABOUT 645 AM AND FINALLY HAD SOME RELIEF OF HER PAIN. SHE REPORTS PAIN IN HER BUTTOCK ON THE RIGHT GOING DOWN TO HER RIGHT KNEE. SHE REPORTS TINGLING AND PAIN FROM HER RIGHT BACK DOWN HER LEG AND ALSO REPORTS THAT SHE HAS NOT BEEN ABLE TO AMBULATE DUE TO HER PAIN. Date of Admission February 19, 2020 at 21:48 Date Seen by a Provider: February 20, 2020 Time Seen by a Provider: 08:40 I consulted on this patient on 02/20/20 08:20 Attending Physician Deborah Camejo MD Admitting Physician Deborah Camejo MD Consult Allergies and Home Medications Allergies Coded Allergies: clonidine (Verified Allergy, Unknown, NAUSEA, 03/14/19) Penicillins (Unverified Adverse Reaction, Intermediate, 03/14/19) Sulfa (Sulfonamide Antibiotics) (Unverified Adverse Reaction, Intermediate, 03/14/19) Uncoded Allergies: ivp dye (Adverse Reaction, Intermediate, 09/15/13) Home Medications Acetaminophen 500 Mg Tablet, 500 MG PO TID PRN for PAIN-MILD (1-4), (Reported) Amlodipine Besylate 10 Mg Tablet, 10 MG PO HS, (Reported) Diclofenac Sodium 75 Mg Tablet.dr, 75 MG PO BID, (Reported) Duloxetine HCl 30 Mg Capsule.dr, 30 MG PO DAILY, (Reported) Gabapentin 100 Mg Capsule, 300 MG PO QID PRN for NEUROPATHIC PAIN, (Reported) TAKES 3 (100MG) CAPSULES Hydralazine HCl 10 Mg Tablet, 10 MG PO TID PRN for SBP>150, (Reported) Insulin Aspart 300 Units/3 Ml Solution, SQ TIDAC, (Reported) 150-200 = 3 UNITS 201-250 = 5 UNITS 251-300 = 7 UNITS 301-350 = 9 UNITS 351- 400 =11 UNITS Lactulose 10 Gm/15 Ml Solution, 30 ML PO BID PRN for CONSTIPATION-3RD LINE, (Reported) Losartan Potassium 100 Mg Tablet, 100 MG PO DAILY, (Reported) Mag Hydrox/Al Hydrox/Simeth 30 Ml Oral.susp, 30 ML PO Q6H PRN for INDIGESTION, (Reported) Metronidazole 500 Mg Tablet, 500 MG PO TID Prescribed by: DEBORAH CAMEJO on 09/15/19 1121 Olopatadine HCl 2.5 Ml Drops, 1 DROP OU DAILY PRN for DRY EYES, (Reported) Ondansetron 8 Mg Tab.rapdis, 8 MG PO TID PRN for NAUSEA/VOMITING Prescribed by: DEBORAH CAMEJO on 09/15/19 1121 Simvastatin 10 Mg Tablet, 10 MG PO HS, (Reported) Patient Home Medication List Home Medication List Reviewed: Yes Past Wgohsky-Wbgbnf-Csjfhb Hx Patient Social History Marrital Status: Living Status: LIVES AT HOME WITH Employed/Student: retired Alcohol Use: Denies Use Recreational Drug Use: No Smoking Status: Never a Smoker 2nd Hand Smoke Exposure: No Physical Abuse Screen: No Sexual Abuse: No Recent Foreign Travel: No Contact w/other who traveled: No Recent Hopitalizations: No Recent Infectious Disease Expo: No Immunizations Up To Date Tetanus Booster (TDap): More than 5yrs Date of Pneumonia Vaccine: May 31, 2018 Date of Influenza Vaccine: Aug 25, 2013 Surgeries Yes (BACK SX) Adenoidectomy, Appendectomy, Section, Hysterectomy, Oophorectomy, Orthopedic, Tonsillectomy Respiratory No Currently Using CPAP: No Currently Using BIPAP: No Cardiovascular Yes High Cholesterol, Hypertension Neurological No 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 System : No Hx 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 Disorders: No Sexually Transmitted Disease: No HIV/AIDS: No Female 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 Disorders: 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 Genitourinary No Gastrointestinal No Musculoskeletal Yes (severe chronic back pain with right sided radicular symptoms) Degenerate Disk Disease, Arthritis, Chronic Back Pain Endocrine History of Endocrine Disorders: Yes Endocrine Disorders: Diabetes, Insulin dep HEENT History of HEENT Disorders: No Loss of Vision: Denies Hearing Impairment: Denies Cancer No Psychosocial History of Psychiatric Problem: Yes Behavioral Health Disorders: Anxiety, Depression Integumentary History of Skin or Integumenta: No Blood Transfusions History of Blood Disorders: No Adverse Reaction to a Blood Tr: No Reviewed Nursing Assessment Reviewed/Agree w Nursing PMH: Yes Family Medical History Significant Family History: Heart Disease, Cancer, Stroke Family Hx: Cancer 03 FATHER (RADICAL NECK CANCER ) Family history: Cardiovascular disease 09 BROTHER Stroke 09 BROTHER, Onset:60 ( FROM STROKE) Review of Systems Constitutional: No chills, No fever; malaise, weakness EENTM: No hoarseness, No throat pain Respiratory: No cough, No dyspnea on exertion, No short of breath Cardiovascular: No chest pain, No edema, No palpitations Gastrointestinal: No abdominal pain, No nausea, No vomiting Genitourinary: incontinence : No Musculoskeletal: back pain, joint pain (RIGHT HIP AND KNEE), muscle weakness Skin: no symptoms reported Psychiatric/Neurological: Anxiety, Depressed, Tingling (RIGHT KNEE), Weakness All Other Systems Reviewed Negative Unless Noted: Yes Physical Exam Vital Signs Vital Signs - First Documented 02/19/20 02/19/20 18:34 22:26 Temp 36.3 Pulse 58 Resp 18 B/P (MAP) 229/81 (130) Pulse Ox 97 O2 Delivery Room Air Capillary Refill : Less Than 3 Seconds Height, Weight, BMI Height: 5'7.00" Weight: 180lbs. 0.8oz. 81.952362gz; 29.30 BMI Method:Stated General Appearance: No Apparent Distress, WD/WN Eyes: Bilateral Eye Normal Inspection, Bilateral Eye PERRL, Bilateral Eye EOMI HEENT: PERRL/EOMI, Pharynx Normal Neck: Full Range of Motion, Non Tender, Supple Respiratory: Chest Non Tender, Lungs Clear, Normal Breath Sounds, No Accessory Muscle Use, No Respiratory Distress Cardiovascular: Regular Rate, Rhythm, Normal Peripheral Pulses Gastrointestinal: Normal Bowel Sounds, No Organomegaly, No Pulsatile Mass, Non Tender, Soft Rectal: Deferred Back: Other (PT LYING FLAT ON BACK, IN TOO MUCH DISTRESS TO MOVE FOR EXAM OF SPINE) Extremity: Normal Capillary Refill, No Pedal Edema, Other (PAIN AT MEDIAL ASPECT OF RIGHT KNEE) Neurologic/Psychiatric: Alert, Other (ANXIOUS, TEARFUL) Skin: Normal Color, Warm/Dry Lymphatic: No Adenopathy Assessment/Plan Assessment and Plan MALIGNANT HYPERTENSION HYPERTENSIVE URGENCY UNCONTROLLED BACK PAIN LEG WEAKNESS HX OF L5/S1 DISC EXTRUSION IN 03/2019 NEUROFORAMINAL STENOSIS LUMBAR SPINE MALIGNANT HYPERTENSION WITH HYPERTENSIVE URGENCY - UNCONTROLLED HTN - RESUMED HOME REGIMEN WITH USE OF IV HYDRALAZINE FOR PRN TREATMENT OF ELEVATED BLOOD PRESSURE -PART OF UNCONTROLLED HYPERTENSION IS DUE TO UNCONTROLLED PAIN, INCREASE FENTANYL AND MONITOR SYMPTOMS CLOSELY. UNCONTROLLED BACK PAIN WITH LEG WEAKNESS HX OF L5/S1 DISC EXTRUSION IN 03/2019 WITH NEUROFORAMINAL STENOSIS MULTI- LEVEL AT LUMBAR SPINE - - MRI PENDING - SHOULD BE OBTAINED AROUND 1030 TODAY - AFTER REPORT IS AVAILABLE, WILL DISCUSS WITH [facility]. - INCREASED FENTANYL PROGRESSIVELY DURING ADMISSION FROM 50MCG TO 75MCG TO 100MCG, IF NEEDED WILL INCREASE UP TO 125MCG FOR CONTROL OF PAIN. - WE HAVE TO BE CAREFUL ABOUT ORAL MEDICATIONS - SUCH PERCOCET OR HYDROCODONE ADRIANA HAD AN EXTREMELY ROBUST PSYCHOTIC EPISODE AND HAD TO BE SENT TO [facility] LAST YEAR DUE TO THE PSYCHOTIC EPISODE FROM THE PAIN MEDICATION. DVT PROPHYLAXIS WITH LOVENOX, PT REFUSED SCD'S GI PROPHYLAXIS WITH PEPCID Admission Diagnosis MALIGNANT HYPERTENSION HYPERTENSIVE URGENCY UNCONTROLLED BACK PAIN LEG WEAKNESS HX OF L5/S1 DISC EXTRUSION IN 03/2019 NEUROFORAMINAL STENOSIS LUMBAR SPINE Admission Status: Inpatient Order (span 2 midnights) Reason for Inpatient Admission: INPATIENT ADMISSION FOR MALIGNANT HYPERTENSION, UNCONTROLLED BACK PAIN Clinical Quality Measures DVT/VTE Risk/Contraindication: Risk Factor Score Per Nursin RFS Level Per Nursing on Admit: 4+=Very High DEBORAH CAMEJO MD February 20, 2020 08:20
[2020-02-20] MEDS: amLODIPine 5 MG (NORVASC) TAB PO SCH (09:23)
[2020-02-20] MEDS: meTOprolol TARTRATE 25 MG (LOPRESSOR) TABLET PO SCH ×2 (09:23→20:14)
[2020-02-20] MEDS: LOSARTAN 100 MG (COZAAR) TABLET PO SCH (09:33)
[2020-02-20] MEDS: ENOXAPARIN 40 MG/0.4 ML (LOVENOX) SYR SC SCH (09:33)
[2020-02-20] MEDS: FAMOTIDINE 20 MG (PEPCID) TABLET PO SCH (09:36)
[2020-02-20 10:06] LABS: BILIRUBIN,URINE NEGATIVE (NEGATIVE); CLARITY,URINE CLEAR; COLOR,URINE YELLOW; GLUCOSE, URINE (UA) TRACE (NEGATIVE); KETONES,URINE NEGATIVE (NEGATIVE); LEUKOCYTE ESTERASE ,URINE 1+ (NEGATIVE); NITRITE,URINE NEGATIVE (NEGATIVE); PH,URINE 5.5 (5-9); PROTEIN,URINE 2+ (NEGATIVE)
--- NOTE | 2020-02-20 10:10 | NUR ---
patient to MRI at this time via cart. premedicated per Dr. Camejo's orders. This RN will assume care of this patient when she arrives back to 5th floor after her procedure.
[2020-02-20] MEDS ORDERED: ONDANSETRON 4 MG/2 ML (SDV) Z0FRAN ONE (10:12)
[2020-02-20 10:17] LABS: BACTERIA,URINE TRACE /HPF
--- NOTE | 2020-02-20 10:45 | NUR ---
Patient back from MRI at this time.
[2020-02-20] MEDS ORDERED: ACET325T49 PO (11:56)
[2020-02-20] MEDS ORDERED: GABA300C PO (11:56)
[2020-02-20] MEDS ORDERED: METO-333 PO (11:56)
[2020-02-20] MEDS ORDERED: BUSP7.5T5 PO (11:56)
[2020-02-20] MEDS ORDERED: PROMETHAZINE INJ 25 MG/ML (PHENERGAN) AMP IVP PRN (12:00)
[2020-02-20] MEDS ORDERED: ONDANSETRON 4 MG/2 ML (SDV) Z0FRAN IVP PRN (12:00)
--- NOTE | 2020-02-20 12:09 | NUR ---
SPOKE WITH THE PT (SHE HAD A MED LIST AND HER MED BOTTLES WITH HER) AND CALLED HER MAIL ORDER PHARMACY TO COMPLETE THE MED REC THE FOLLOWING ARE FILL DATES FROM [facility] ORDER: 12-01-2019 METOPROLOL TART 25MG #180/90DS 12-04-2019 BUSPIRONE 7.5MG #90/30DS (SHE THINKS THERE IS A NEWER BOTTLE AT HOME) 12-11-2019 GABAPENTIN 300MG #360/90DS 12-13-2019 DICLOFENAC 75MG #180/90DS 12-18-2019 SIMVASTATIN 10MG #90/90DS 12-26-2019 DULOXETINE 30MG #90/90DS 01-16-2020 LOSARTAN 100MG #90/90DS 01-18-2020 AMLODIPINE 10MG #45/90DS 02-12-2020 NOVOLOG PENS #15PENS OTC MEDS: TYLENOL 325MG Addendum: 02/20/20 at 1215 by JUSTEN ARRINGTON CPhT PT ALSO HAS DICLOFENAC GEL WITH HER- DIRECTIONS ARE APPLY 4 GRAMS QID, HOWEVER THE DATE ON THE STICKER IS 02-03-2019- DUE TO THE RX BEING I DID NOT INCLUDE THIS ON THE MED REC
--- NOTE | 2020-02-20 12:30 | Diagnostic Imaging Report ---
CLINICAL INDICATION: Patient is having a lot of low back pain. Patient has history of previous lumbar spine surgery in 1990. EXAM: MRI of the lumbar spine performed without IV contrast. Sagittal T2, sagittal T1, sagittal T2 fat-sat, and axial T2. COMPARISON: MRI of the lumbar spine without contrast dated 03/08/2019. FINDINGS: There is no acute lumbar spine fracture. There are Modic type II degenerative signal changes involving the lumbar spine most pronounced at the L1-L2 level. There is no significant paraspinal soft tissue abnormality. The visualized portions of the distal thoracic spinal cord, conus medullaris, and cauda equina nerve roots are unremarkable. The conus medullaris tip is seen at the L1-L2 intervertebral level. There are hypertrophic spurs seen throughout the lumbar spine and facet arthropathy. T12-L1: Stable diffuse disc bulge with wpfpulrb-bq-zsttxz loss of disc space height and chronic Schmorl's nodes. Stable mild impression upon the thecal sac anteriorly. Stable teva-nu-osrneuso left neural foramen narrowing and mild right neural foramen narrowing. L1-L2: Stable diffuse disc bulge and moderate loss of disc space height and endplate irregularity. Stable disc spurs extending posteriorly and into the foraminal regions bilaterally. There is stable moderate central canal stenosis, severe right neural foramen narrowing and moderate left neural foramen narrowing. L2-L3: Stable diffuse disc bulge with uztnbkrz-ql-fdmvjc loss of disc space height and endplate irregularity. Stable disc spurs extend posteriorly and into the foraminal regions bilaterally. There is stable moderate bilateral facet arthropathy. Stable zpjzfsro-kg-ykyxks central canal stenosis, severe right neural foramen narrowing and moderate left neural foramen narrowing. L3-L4: Stable severe right facet arthropathy/hypertrophy and moderate left facet arthropathy. There is a stable diffuse disc bulge with disc spurs in the left subarticular region and disc extrusion/herniation in the right foraminal region and far right lateral region which was also noted on the prior study. There is associated severe stenosis of the right neural foramen and mhgs-cu-lwxctrcv stenosis of the left neural foramen region. There is moderate central canal stenosis which appears to have minimally progressed possibly due to disc bulge. L4-L5: There is stable severe bilateral facet arthropathy/hypertrophy. Stable diffuse disc bulge. There is mild encroachment upon the central canal which is stable. There is stable severe bilateral neural foramen narrowing. L5-S1: There is no significant change to the slight low T2 signal intensity, lobulated area posterior to the S1 vertebra which is remeasured at roughly 8 mm x 10 mm in AP x transverse dimensions. This area measured similarly on the prior study as well. This may represent an area of disc extrusion with caudal disc migration versus soft tissue scarring. L5-S1 laminotomy changes are noted. Stable mild bilateral neural foramen narrowing on the left and no significant narrowing on the right. There is no significant central canal narrowing. IMPRESSION: 1: Stable multilevel lumbar spine degenerative disc disease with multilevel disc bulges, disc spurs, herniations, and facet arthropathy which is described in detail above. 2: Stable lobulated area of low-density seen posterior to the S1 vertebra near the L5-S1 disc space. This may represent an area of stable disc extrusion/herniation versus scarring. MRI of the lumbar spine postcontrast would better evaluate. Dictated by: Dictated on workstation # [id number]
--- NOTE | 2020-02-20 15:00 | NUR ---
CM/SS: Attempted to visit with pt as to plan for discharge. Pt reports she is pretty sleepy and she has not slept for five days due to back pain. Pt is pretty groggy and can not stay awake. This worker will follow up.
[2020-02-20] MEDS: inSUlin ASPART (NovoLOG) 1 UNIT/0.01 ML (CHARGE PER UNIT) SC SCH ×2 (17:44→21:00)
--- NOTE | 2020-02-20 18:10 | Consultation ---
History of Present Illness History of Present Illness Patient Consulted On(akhil/time) 02/20/20 18:04 Date Seen by Provider: February 20, 2020 Time Seen by Provider: 18:04 Reason for Visit: Severe back and right hip/leg pain History of Present Illness 74 y/o white female with severe back and right hip/leg pain for over 18 months, worse in last several weeks and requiring admission for the pain. Has gotten to where she has to use a walker to ambulate due to severity of pain. Occasional left sided pain, but almost always right sided pain. Prior decompression by Dr Anders in [place]. Case discussed with Dr Camejo, patients and her. Requested to evaluate for possible surgical treatment. Allergies and Home Medications Allergies Coded Allergies: clonidine (Verified Allergy, Unknown, NAUSEA, 03/14/19) Penicillins (Unverified Adverse Reaction, Intermediate, 03/14/19) Sulfa (Sulfonamide Antibiotics) (Unverified Adverse Reaction, Intermediate, 03/14/19) Uncoded Allergies: ivp dye (Adverse Reaction, Intermediate, 09/15/13) Home Medications Acetaminophen 325 Mg Tablet, 325 MG PO Q6H PRN for PAIN-MILD (1-4) OR TEMPATURE, (Reported) Amlodipine Besylate 10 Mg Tablet, 5 MG PO HS, (Reported) TAKES OF A 10MG TAB Buspirone HCl 7.5 Mg Tablet, 7.5 MG PO TID, (Reported) Diclofenac Sodium 75 Mg Tablet.dr, 75 MG PO BID, (Reported) Duloxetine HCl 30 Mg Capsule.dr, 30 MG PO DAILY, (Reported) Gabapentin 300 Mg Capsule, 300 MG PO QID, (Reported) Insulin Aspart 300 Units/3 Ml Solution, SQ TIDAC, (Reported) 150-200 = 3 UNITS 201-250 = 5 UNITS 251-300 = 7 UNITS 301-350 = 9 UNITS 351- 400 =11 UNITS Losartan Potassium 100 Mg Tablet, 100 MG PO DAILY, (Reported) Metoprolol Tartrate 25 Mg Tablet, 25 MG PO BID, (Reported) Simvastatin 10 Mg Tablet, 10 MG PO HS, (Reported) Patient Home Medication List Home Medication List Reviewed: Yes Past Nwlzvux-Cljmzm-Jpcogw Hx Past Med/Social Hx: Reviewed Nursing Past Med/Soc Hx Patient Social History Alcohol Use: Denies Use Recreational Drug Use: No Smoking Status: Never a Smoker 2nd Hand Smoke Exposure: No Recent Foreign Travel: No Contact w/Someone Who Travel: No Recent Infectious Disease Expo: No Recent Hopitalizations: No Physical Abuse: No Sexual Abuse: No Mistreated: No Fear: No Immunizations Up To Date Tetanus Booster (TDap): More than 5yrs Date of Pneumonia Vaccine: May 31, 2018 Date of Influenza Vaccine: Aug 25, 2013 Past Medical History Surgeries: Yes (BACK SX) Adenoidectomy, Appendectomy, Section, Hysterectomy, Oophorectomy, Orthopedic (lumbar laminectomy), Tonsillectomy Respiratory: No Currently Using CPAP: No Currently Using BIPAP: No Cardiac: Yes High Cholesterol, Hypertension Neurological: No : No 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 Disorders: No 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 Sexually Transmitted Disease: No HIV/AIDS: No Genitourinary: No Gastrointestinal: No Musculoskeletal: Yes (severe chronic back pain with right sided radicular symptoms) Degenerate Disk Disease, Arthritis, Chronic Back Pain Endocrine: Yes Diabetes, Insulin dep HEENT: No Loss of Vision: Denies Hearing Impairment: Denies Cancer: No Psychosocial: Yes Anxiety, Depression Integumentary: No Blood Disorders: No Adverse Reaction/Blood Tranf: No Family Medical History Reviewed Nursing Family Hx Cancer 03 FATHER (RADICAL NECK CANCER ) Family history: Cardiovascular disease 09 BROTHER Stroke 09 BROTHER, Onset:60 ( FROM STROKE) Heart Disease, Cancer, Stroke Review of Systems-General Constitutional: no symptoms reported EENTM: no symptoms reported Respiratory: no symptoms reported Cardiovascular: no symptoms reported Gastrointestinal: no symptoms reported Genitourinary: no symptoms reported Musculoskeletal: back pain, joint pain, muscle pain, muscle weakness Skin: no symptoms reported Psychiatric/Neurological: Numbness, Weakness Physical Exam-General Problems Physical Exam Vital Signs Vital Signs - First Documented 02/19/20 02/19/20 18:34 22:26 Temp 36.3 Pulse 58 Resp 18 B/P (MAP) 229/81 (130) Pulse Ox 97 O2 Delivery Room Air Capillary Refill : Less Than 3 Seconds General Appearance: WD/WN, no apparent distress Eyes: Bilateral Eye Normal Inspection HEENT: PERRL/EOMI, normal ENT inspection Neck: non-tender, full range of motion, supple, normal inspection Respiratory: chest non-tender, lungs clear, no respiratory distress, no accessory muscle use Cardiovascular: regular rate, rhythm Gastrointestinal: normal bowel sounds, non tender, soft Back: decreased range of motion, muscle spasm, vertebral tenderness Extremities: normal inspection, no pedal edema, normal capillary refill 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 She also has severe stenosis at L4-5 left, and at L2-3) Assessment/Plan Assessment/Plan Admission Diagnosis/Plan IMPRESSION: Severe L3-4 right stenosis, due to acute L3-4 HNP/Stenosis with associated severe right leg radiculopathy L4-5 Stenosis and severe left neuroforaminal stenosis L2-3 moderate stenosis/DDD Prior L5-S1 Laminectomy with autofusion of this level Multilevel DDD Diabetes PLAN: She needs a L2-5 Antrolateral/Posterior spinal fusion, with wide d ecompression, right L3-4 facetectomy, left L4-5 facetectomy. Discussed with patient/ will transfer to [place] tomorrow and arrange for surgery hopefully on . Clinical Quality Measures DVT/VTE Risk/Contraindication: Risk Factor Score Per Nursin RFS Level Per Nursing on Admit: 4+=Very High Contraindications-Pharm: Other *list below* Contraindications-Mechi: Patient refusal of tx RODERICK CASTRO MD February 20, 2020 18:10
[2020-02-20 19:11] LABS: ALBUMIN 4.2 GM/DL (3.2-4.5)
[2020-02-20 19:13] LABS: CALCIUM 9.6 MG/DL (8.5-10.1); INR 1.1 (0.8-1.4); PROTHROMBIN TIME PATIENT 14.4 SEC (12.2-14.7)
[2020-02-20 19:14] LABS: TOTAL PROTEIN 7.2 GM/DL (6.4-8.2)
[2020-02-20 19:16] LABS: BILIRUBIN,TOTAL 0.6 MG/DL (0.1-1.0)
[2020-02-20 19:18] LABS: CREATININE SERUM 1.26 MG/DL (0.60-1.30)
--- NOTE | 2020-02-20 19:50 | NUR ---
PT REQUESTING TUMS. DR. MORALES CALLED. ORDER FOR 2 TABS Q4HR PRN GI UPSET.
[2020-02-20] MEDS: CALCIUM CARBONATE 500 MG (TUMS) TAB.CHEW PO PRN (20:14)
[2020-02-21] VITALS: BP 181/77
[2020-02-21 04:00] VITALS: BP 181/77
[2020-02-21] MEDS: hydrALAZINE (APESOLINE) 20 MG/ML VIAL IV PRN (05:01)
[2020-02-21] MEDS: inSUlin ASPART (NovoLOG) 1 UNIT/0.01 ML (CHARGE PER UNIT) SC SCH ×2 (05:49→12:05)
[2020-02-21] MEDS: FAMOTIDINE 20 MG (PEPCID) TABLET PO SCH (07:38)
[2020-02-21 08:00] VITALS: BP 156/64
--- NOTE | 2020-02-21 09:27 | Discharge Summary ---
Diagnosis/Chief Complaint Date of Admission February 19, 2020 at 21:48 Date of Discharge Discharge Date: February 21, 2020 Discharge Time: 10:00 Admission Diagnosis Admission Diagnosis MALIGNANT HYPERTENSION HYPERTENSIVE URGENCY UNCONTROLLED BACK PAIN LEG WEAKNESS HX OF L5/S1 DISC EXTRUSION IN 03/2019 NEUROFORAMINAL STENOSIS LUMBAR SPINE Discharge Diagnosis MALIGNANT HYPERTENSION HYPERTENSIVE URGENCY UNCONTROLLED BACK PAIN LEG WEAKNESS HX OF L5/S1 DISC EXTRUSION IN 03/2019 NEUROFORAMINAL STENOSIS LUMBAR SPINE Reason Hospital Visit PT IS A 74 Y/O FEMALE WHO IS KNOWN TO ME FROM CLINIC AND PREVIOUS HO SPITALIZATIONS. ADRIANA PRESENTED TO THE EMERGENCY DEPARTMENT LAST NIGHT AFTER HAVING ESCALATION OF BACK PAIN OVER THE PAST WEEK WITH PAIN SO SEVERE YESTERDAY AFTERNOON THAT SHE WAS UNABLE TO MOVE WITHOUT CRYING IN DISTRESS. PER EMERGENCY ROOM PHYSICIAN SHE HAS DEGENERATIVE CHANGES ON CT OF BACK AND HIPS. THE MRI OF HER LUMBAR SPINE A YEAR AGO SHOWED POSSIBLE DISC EXTRUSION, SHE WAS REFERRED TO NEUROSURGERY WHO REFUSED TO OPERATE ON HER INSTEAD REQUIRING PHYSICAL THERAPY WHICH PATIENT DID NOT FEEL HELPED HER PAIN VERY MUCH. SHE HAD A DISAGREEMENT WITH DR. DESOUZA AND DID NOT WANT TO GO BACK TO BE SEEN BY HIM, AND WAS REFUSED TO BE SEEN BY DR. WHALEN UNTIL RELEASED INTO HER CARE BY DR. DESOUZA. THIS WOULD REQUIRE ADRIANA SEEING DR. DESOUZA AGAIN AND SHE IS NOT WILLING TO DO SO. THE PATIENT WAS REPORTING TO ME THIS MORNING THAT SHE WAS IN SEVERE PAIN LAST NIGHT, SHE RECEIVED 75MCG OF FENTANYL AT ABOUT 530AM AND ANOTHER 50MCG AT ABOUT 645 AM AND FINALLY HAD SOME RELIEF OF HER PAIN. SHE REPORTS PAIN IN HER BUTTOCK ON THE RIGHT GOING DOWN TO HER RIGHT KNEE. SHE REPORTS TINGLING AND PAIN FROM HER RIGHT BACK DOWN HER LEG AND ALSO REPORTS THAT SHE HAS NOT BEEN ABLE TO AMBULATE DUE TO HER PAIN. Discharge Summary Discharge Physical Examination Allergies: Coded Allergies: clonidine (Verified Allergy, Unknown, NAUSEA, 03/14/19) Penicillins (Unverified Adverse Reaction, Intermediate, 03/14/19) Sulfa (Sulfonamide Antibiotics) (Unverified Adverse Reaction, Inter mediate, 03/14/19) Uncoded Allergies: ivp dye (Adverse Reaction, Intermediate, 09/15/13) Vitals & I&Os Vital Signs Date Time Temp Pulse Resp B/P (MAP) Pulse Ox O2 Delivery O2 Flow Rate FiO2 02/21/20 08:00 37.3 85 20 156/64 (94) 96 Room Air General Appearance: Alert, Oriented X3, Cooperative, No Acute Distress HEENT: Atraumatic, PERRLA Respiratory: Clear to Auscultation, Normal Air Movement Cardiovascular: Regular Rate Abdominal: Normal Bowel Sounds, Soft, No Tenderness, No Hepatosplenomegaly Extremities: No Clubbing, No Cyanosis Skin: No Rashes, No Breakdown Neuro: Normal Speech, Cranial Nerves 3-12 NL Psych/Mental Status: Mental Status NL, Mood NL Hospital Course Was the Problem List Reviewed?: Yes MALIGNANT HYPERTENSION HYPERTENSIVE URGENCY UNCONTROLLED BACK PAIN LEG WEAKNESS HX OF L5/S1 DISC EXTRUSION IN 03/2019 NEUROFORAMINAL STENOSIS LUMBAR SPINE MALIGNANT HYPERTENSION WITH HYPERTENSIVE URGENCY - UNCONTROLLED HTN - RESUMED HOME REGIMEN WITH USE OF IV HYDRALAZINE FOR PRN TREATMENT OF ELEVATED BLOOD PRESSURE -PART OF UNCONTROLLED HYPERTENSION IS DUE TO UNCONTROLLED PAIN, INCREASED FENTANYL WITH SLIGHTLY IMPROVED BLOOD PRESSURE READINGS. PT WILL CONTINUE TO NEED MEDICATION MODIFIED TO FURTHER CONTROL HER BP. UNCONTROLLED BACK PAIN WITH LEG WEAKNESS HX OF L5/S1 DISC EXTRUSION IN 03/2019 WITH NEUROFORAMINAL STENOSIS MULTI- LEVEL AT LUMBAR SPINE - - MRI PENDING - SHOULD BE OBTAINED AROUND 1030 TODAY - AFTER REPORT IS AVAILABLE, WILL DISCUSS WITH [facility]. I HAVE CONTACTED THE GROUP AND DR. CASTRO RESPONDED, CAME TO SEE PATIENT ON 02/20/2020 AND AGREES THAT HER PAIN AND SYMPTOMS WARRANT SURGICAL INTERVENTION AND SHE IS TO BE TRANSFERRED DOWN TO [facility] FOR PLANNED INTERVENTION ON 02/22/2020. I HAVE ORDERED A COVID-19 ANTIGEN TEST THAT WAS OBTAINED ON 02/20/2020 AND SHOULD BE RESULTED TONIGHT 02/21/2020 FOR PLANNED INTERVENTION THE NEXT DAY. - INCREASED FENTANYL PROGRESSIVELY DURING ADMISSION FROM 50MCG TO 75MCG TO 100MCG, IF NEEDED WILL INCREASE UP TO 125MCG FOR CONTROL OF PAIN. - WE HAVE TO BE CAREFUL ABOUT ORAL MEDICATIONS - SUCH PERCOCET OR HYDROCODONE ADRIANA HAD AN EXTREMELY ROBUST PSYCHOTIC EPISODE AND HAD TO BE SENT TO [facility] LAST YEAR DUE TO THE PSYCHOTIC EPISODE FROM THE PAIN MEDICATION. I WOULD ANTICIPATE, AND I HAVE TALKED TO LAN AND HER ABOUT THE NEED FOR INPATIENT REHAB POST SURGICALLY. LAN HAS AGREED TO THIS ARRANGEMENT SHOULD SHE BE PHYSICALLY ABLE TO PARTICIPATE IN THE INPATIENT REHAB PROGRAM AT [place]. THIS WOULD BE HIGHLY PREFERRED VERSUS CUSTODIAL PRIOR TO ALL OF HER BACK PAIN LAN WAS VERY ACTIVE AT HOME AND ABLE TO BE COMPLETELY INDEPENDENT IN AND OUT OF THE HOME. THIS IS THE GOAL FOR HER FUTURE LEVEL OF FUNCTION. RADIOLOGY REPORT FROM MRI DONE ON 02/20/2020 FOLLOWS: NAME: ADRIANA FERRELL [facility] REC#: [id number] PT STATUS: ADM IN : 1945 PHYSICIAN: DEBORAH MORALES MD ADMIT DATE: 02/19/20/ Signed Date of Exam:02/20/20 MRI LUMBAR SPINE W/O CONTRAST CLINICAL INDICATION: Patient is having a lot of low back pain. Patient has history of previous lumbar spine surgery in 1990. EXAM: MRI of the lumbar spine performed without IV contrast. Sagittal T2, sagittal T1, sagittal T2 fat-sat, and axial T2. COMPARISON: MRI of the lumbar spine without contrast dated 03/08/2019. FINDINGS: There is no acute lumbar spine fracture. There are Modic type II degenerative signal changes involving the lumbar spine most pronounced at the L1-L2 level. There is no significant paraspinal soft tissue abnormality. The visualized portions of the distal thoracic spinal cord, conus medullaris, and cauda equina nerve roots are unremarkable. The conus medullaris tip is seen at the L1-L2 intervertebral level. There are hypertrophic spurs seen throughout the lumbar spine and facet arthropathy. T12-L1: Stable diffuse disc bulge with mftbexfe-zf-babqde loss of disc space height and chronic Schmorl's nodes. Stable mild impression upon the thecal sac anteriorly. Stable fszn-jj-iorcluzd left neural foramen narrowing and mild right neural foramen narrowing. L1-L2: Stable diffuse disc bulge and moderate loss of disc space height and endplate irregularity. Stable disc spurs extending posteriorly and into the foraminal regions bilaterally. There is stable moderate central canal stenosis, severe right neural foramen narrowing and moderate left neural foramen narrowing. L2-L3: Stable diffuse disc bulge with gencqgcv-ap-mndrfn loss of disc space height and endplate irregularity. Stable disc spurs extend posteriorly and into the foraminal regions bilaterally. There is stable moderate bilateral facet arthropathy. Stable hsofnrqk-uq-hojqnn central canal stenosis, severe right neural foramen narrowing and moderate left neural foramen narrowing. L3-L4: Stable severe right facet arthropathy/hypertrophy and moderate left facet arthropathy. There is a stable diffuse disc bulge with disc spurs in the left subarticular region and disc extrusion/herniation in the right foraminal region and far right lateral region which was also noted on the prior study. There is associated severe stenosis of the right neural foramen and bzqn-yn-zfsyaqzh stenosis of the left neural foramen region. There is moderate central canal stenosis which appears to have minimally progressed possibly due to disc bulge. L4-L5: There is stable severe bilateral facet arthropathy/hypertrophy. Stable diffuse disc bulge. There is mild encroachment upon the central canal which is stable. There is stable severe bilateral neural foramen narrowing. L5-S1: There is no significant change to the slight low T2 signal intensity, lobulated area posterior to the S1 vertebra which is remeasured at roughly 8 mm x 10 mm in AP x transverse dimensions. This area measured similarly on the prior study as well. This may represent an area of disc extrusion with caudal disc migration versus soft tissue scarring. L5-S1 laminotomy changes are noted. Stable mild bilateral neural foramen narrowing on the left and no significant narrowing on the right. There is no significant central canal narrowing. IMPRESSION: 1: Stable multilevel lumbar spine degenerative disc disease with multilevel disc bulges, disc spurs, herniations, and facet arthropathy which is described in detail above. 2: Stable lobulated area of low-density seen posterior to the S1 vertebra near the L5-S1 disc space. This may represent an area of stable disc extrusion/herniation versus scarring. MRI of the lumbar spine postcontrast would better evaluate. Dictated by: Dictated on workstation # [id number] Dict: 02/20/20 1054 Trans: 02/20/20 1713 [facility] [id number] Interpreted by: FREDIS PABLO MD Electronically signed by: FREDIS PABLO MD 02/20/20 1713 DVT PROPHYLAXIS WITH LOVENOX, PT REFUSED SCD'S GI PROPHYLAXIS WITH PEPCID Pending Labs Laboratory Tests 02/21/20 05:32: Glucometer 146 Discharge Instructions to patient/family Please see electronic discharge instructions given to patient. Discharge Medications Reviewed and agree with Discharge Medication list on patient's Discharge Instruction sheet Clinical Quality Measures DVT/VTE Risk/Contraindication: Risk Factor Score Per Nursin RFS Level Per Nursing on Admit: 4+=Very High Contraindications-Pharm: Other *list below* Contraindications-Mechi: Patient refusal of tx DEBORAH MORALES MD February 21, 2020 09:27
[2020-02-21] MEDS: KETOROLAC 15 MG/ML VIAL IVP PRN (09:38)
[2020-02-21] MEDS: meTOprolol TARTRATE 25 MG (LOPRESSOR) TABLET PO SCH (09:38)
[2020-02-21] MEDS: LIDOCAINE 4% (SALONPAS) PATCH TOP SCH (09:38)
[2020-02-21] MEDS: LOSARTAN 100 MG (COZAAR) TABLET PO SCH (09:38)
[2020-02-21] MEDS: amLODIPine 5 MG (NORVASC) TAB PO SCH (09:38)
[2020-02-21] MEDS: ENOXAPARIN 40 MG/0.4 ML (LOVENOX) SYR SC SCH (09:39)
[2020-02-21 12:00] VITALS: BP 152/68
[2020-02-21] MEDS: CALCIUM CARBONATE 500 MG (TUMS) TAB.CHEW PO PRN (12:26)
[2020-02-21] MEDS: fentaNYL INJECTION 100 MCG/2 ML AMP IV PRN (12:54)
[2020-02-21 12:55] VITALS: BP 152/68
== END 2020-02-21 13:00 | disposition home or self-care (01) | DRG 552 ==
LOC: EDUNIT# 18:28 → ER 18:30 → 4TH 21:48
PROVIDERS: ADMIT Family Medicine; ATTEND Family Medicine
DX: M51.16 Intervertebral disc disorders with radiculopathy, lumbar region (principal); M48.061 Spinal stenosis, lumbar region without neurogenic claudication; I16.0 Hypertensive urgency; I10 Essential (primary) hypertension; R53.1 Weakness; R32 Unspecified urinary incontinence; F41.9 Anxiety disorder, unspecified; F32.9 Major depressive disorder, single episode, unspecified; E78.00 Pure hypercholesterolemia, unspecified; M16.0 Bilateral primary osteoarthritis of hip; E11.9 Type 2 diabetes mellitus without complications; Z79.4 Long term (current) use of insulin
CPT/HCPCS: 36415; 72131; 72148; 74176; 80053; 81000; 82962; 85025; 85610; 85652; 86141; 87088; 87635; 93005; 96374; 96375; 96376

== ENCOUNTER 2020-02-24 11:00 | Inpatient (IN) | payer MEDICARE, OTHER ==
[~2020-02-24] VITALS: Ht 170.1 cm; Wt 93.2 kg
--- NOTE | 2020-02-24 10:36 | Physical Therapy Evaluation ---
PT Evaluation-General Medical Diagnosis Admission Date 02/24/2020 Medical Diagnosis: LBP with radiculopathy s/o fusion Onset Date: February 21, 2020 Therapy Diagnosis Therapy Diagnosis: decreased functional mobility Height/Weight Height (Feet): 5 Height (Inches): 7.00 Weight (Pounds): 180 Weight (Ounces): 0.8 Precautions Precautions/Isolations: Fall Prevention, Standard Precautions back precautions, LSO Weight Bear Status Right Lower Extremity: Right Full Weight Bearing Left Lower Extremity: Left Full Weight Bearing Referral Physician: Regino Reason for Referral: Evaluation/Treatment Medical History Pertinent Medical History: Arthritis, DM, HTN Additional Medical History anxiety, depression, lumbar laminectomy Current History s/p L2-5 anterolateral/posterior fusion with laminectomy, L3-4 (R) facetectomy, (L) L4-5 facetectomy on 02/21/2020. Arrived [facility] this date via EMS. Reviewed History: Yes Social History Home: Single Level Current Living Status: Spouse Entry Into Home: Ramp PT Steps Into Home: 2 (Ramp installed today) Prior Prior Level of Function SCALE: Activities may be completed with or without assistive devices. 3-Ccndchdpwc-pveqenj completes the activity by him/herself with no assistance from a helper. 5-Set-up or Clean-up Assistance-helper sets up or cleans up; patient completes activity. [place] assists only prior to or following the activity. 4-Supervision or Touching Assistance-helper provides verbal cues and/or touching/steadying and/or contact guard assistance as patient completes activity. Assistance may be provided throughout the activity or intermittently. 3-Partial/Moderate Assistance-helper does LESS THAN HALF the effort. [place] lifts, holds or supports trunk or limbs, but provides less than half the effort. 2-Substantial/Maximal Assistance-helper does MORE THAN HALF the effort. [place] lifts or holds trunk or limbs and provides more than half the effort. 6-Ieudbnarj-iylzsr does ALL the effort. Patient does none of the effort to complete the activity. Or, the assistance of 2 or more helpers is required for the patient to complete the activity. If activity was not attempted, code reason: 7-Patient Refused. 9-Not Applicable-not attempted and the patient did not perform the activity before the current illness, exacerbation or injury. 10-Not Attempted due to Environmental Limitations-(lack of equipment, weather restraints, etc.). 88-Not Attempted due to Medical Conditions or Safety Concerns. Bed Mobility: 6 Transfers (B,C,W/C): 6 Gait: 6 Stairs: 6 Indoor Mobility (Ambulation): Independent Stairs: Independent Prior Devices Use: None, Walker Pt reports occasional use of FWW prior to surgery depending on pain level. PT Evaluation-Current Subjective Pt in bed, reports feeling very anxious. "I want to do this and I will do it, I just need you to give me time". After treatment Pt reports feeling "a little better about all of this, not as anxious". Pt did request to return to room, up in recliner. "I don't think I can do anymore, I am getting shaky." Able to recall 1/3 back precautions. Pain Numeric Pain Scale: 0-No Pain Location Body Site: Back Pt/Family Goals Home with spouse Objective Patient Orientation: Person, Place, Time, Situation ROM/Strength ROM Upper Extremities See OT ROM Lower Extremities WFL for mobility Strength Upper Extremities See OT Strength Lower Extremities Grossly 3/5; no resistance applied due to recent Sx Integumentary/Posture Integumentary See nurses notes Bladder Incontinence: No Neuromuscular (Tone, Coordination, Reflexes) Grossly intact Sensory Vision: Wears Glasses Hearing: Functional Sensation Right Lower Extremit: Intact Sensation Left Lower Extremity: Intact Transfers Roll Left to Right (QC): 5 Sit to Lying (QC): 4 Lying to Sitting/Side of Bed(Q: 4 Sit to Stand (QC): 4 Chair/Ckd-bg-Fbhus Xfer(QC): 4 Toilet Transfer (QC): 7 Car Transfer (QC): 7 Pt declined further functional mobility citing she was too shaky. Gait Does the Patient Walk?: Yes Mode of Locomotion: Walk Anticipated Mode of Locomotion: Walk Walk 10 feet (QC): 4 Walk 50 ft with 2 Turns(QC): 4 Walk 150 ft (QC): 7 Walking 10ft/uneven surface-QC: 7 Distance: 50 Gait Assistive Device: FWW Comments/Gait Description Pt ambulated 50' x 2 with FWW, seated recovery break in between trials, CGA. Pt did require VCS for safety as she frequently ran into objects on (R). Wheelchair Training Does the Pt Use a Wheelchair?: No Wheel 50 ft with 2 turns (QC): 9 Wheel 150 ft (QC): 9 Type of Wheelchair: N/A Stairs 1 Step (curb) (QC): 7 4 Steps (QC): 7 12 Steps (QC): 7 Pt declined further functional mobility due to feeling shaky. Balance Sitting Static: Normal Sitting Dynamic: Good Standing Static: Good Standing Dynamic: Fair Picking up an Object (QC): 9 (Pt will use voice instructor to adhere to lumbar precautions) Treatment Instruction on safe log-rolling technique, sit<->stand transfers. Up in recliner with LSO in place, O2 in situ, needs met. Assessment/Needs Pt would benefit from skilled PT to increase (I) and safety with functional mobility to allow safe return home. Rehab Potential: Good PT Short Term Goals Short Term Goals Time Frame: March 02, 2020 Roll Left & Right: 6 Sit to lyin Lying to sitting on side of be: 6 Sit to stand: 6 Chair/gig-oj-pavdp transfer: 6 PT Detention Goals Psychiatric Nursing Aide Goals PT Detention Goals Time Frame: Mar 09, 2020 Roll Left & Right (QC): 6 Sit to Lying (QC): 6 Lying-Sitting on Side/Bed(QC): 6 Sit to Stand (QC): 6 Chair/Kpf-xh-Onapk Xfer(QC): 6 Toilet Transfer (QC): 6 Car Transfer (QC): 6 Does the Patient Walk: Yes Walk 10 feet (QC): 6 Walk 50ft with 2 Turns (QC): 6 Walk 150 ft (QC): 6 Walking 10ft on Uneven Surface: 6 1 Step (curb) (QC): 6 4 Steps (QC): 6 12 Steps (QC): 9 Picking up an Object (QC): 9 Does the Pt use WC or Scooter?: No Wheel 50 feet with 2 turns (QC: 9 Type: N/A Wheel 150 feet: 9 Type: N/A PT LTGs established to allow safe return home with spouse. PT Plan Problem List Problem List: Activity Tolerance, Functional Strength, Safety, Balance, Gait, Transfer, Bed Mobility Treatment/Plan Treatment Plan: Continue Plan of Care Treatment Plan: Bed Mobility, Education, Functional Activity Tessa, Functional Strength, Group Therapy, Gait, Safety, Therapeutic Exercise, Transfers Treatment Duration: Mar 09, 2020 Frequency: At least 5 of 7 days/Wk (IRF) Estimated Hrs Per Day: 1.5 hours per day Patient and/or Family Agrees t: Yes Safety Risks/Education Patient Education: Transfer Techniques, Reviewed Precautions, Reviewed Don/Doff Brace Teaching Recipient: Patient Teaching Methods: Demonstration, Discussion Response to Teaching: Verbalize Understanding, Reinforcement Needed Discharge Recommendations Therapy Discharge Recommendati: Home & Family Barriers to Progress anxiety Time/GCodes Time In: 1123 Time Out: 1201 Total Billed Treatment Time: 28 Total Billed Treatment 1, EVLOWC x 10', FA x 18' Unattended for OT eval [id number] FRANCIS HILL DPT February 24, 2020 10:36
[~2020-02-24 11:00] MED LIST changes: +ACET325T49 PO; +ACETAMINOPHEN 500 MG TAB (TYLENOL) PO PRN; +BISACODYL 10 MG SUPP (DULCOLAX) PR PRN; +BUSP7.5T5 PO; +DOCUSATE SODIUM 100 MG (COLACE) CAP PO PRN; +FLEET ENEMA ADULT 1 EA BTL PR PRN; +GABA300C PO; +LACTULOSE SYRUP 10GM/15ML (ENULOSE) 30ML UDC PO PRN; +LOPERAMIDE 2 MG (IMODIUM) TABLET PO PRN; +METO-333 PO; +ONDANSETRON 4 MG (ZOFRAN) ORAL DISSOLVE TAB PO PRN; +diphenhydrAMINE 25 MG TAB (BENADRYL) PO PRN; +guaiFENesin/CODEINE (ROBITUSSIN AC) 10ML UDC PO PRN
--- NOTE | 2020-02-24 11:59 | Occupational Therapy Eval ---
OT Evaluation-General/PLF Medical Diagnosis Admission Date February 24, 2020 at 11:00 Medical Diagnosis: L2-5 fusion Onset Date: February 21, 2020 Therapy Diagnosis Therapy Diagnosis: Decreased ADL fx Height/Weight Height (Feet): 5 Height (Inches): 7.00 Weight (Pounds): 180 Weight (Ounces): 0.8 Weight Bear Status Weight Bearing Restriction: Weight Bearing/Tolerated Referral Physician: Regino Referral Reason: Activity Tolerance, Self Care, Evaluation/Treatment, S trengthening/ROM Medical History Pertinent Medical History: Arthritis, DM, HTN Additional Medical History DM, GERD, HTN, anx/ dep Current History Pt completes L2-5 fusion, back brace when up. Reviewed History: Yes Social History Home: Single Level Current Living Status: Spouse Entry Into Home: Ramp ADL-Prior Level of Function SCALE: Activities may be completed with or without assistive devices. 0-Zzrjxjilva-cojhstg completes the activity by him/herself with no assistance from a helper. 5-Set-up or Clean-up Assistance-helper sets up or cleans up; patient completes activity. [place] assists only prior to or following the activity. 4-Supervision or Touching Assistance-helper provides verbal cues and/or touching/steadying and/or contact guard assistance as patient completes activity. Assistance may be provided throughout the activity or intermittently. 3-Partial/Moderate Assistance-helper does LESS THAN HALF the effort. [place] lifts, holds or supports trunk or limbs, but provides less than half the effort. 2-Substantial/Maximal Assistance-helper does MORE THAN HALF the effort. [place] lifts or holds trunk or limbs and provides more than half the effort. 6-Erzzqneax-sfylkb does ALL the effort. Patient does none of the effort to complete the activity. Or, the assistance of 2 or more helpers is required for the patient to complete the activity. If activity was not attempted, code reason: 7-Patient Refused. 9-Not Applicable-not attempted and the patient did not perform the activity before the current illness, exacerbation or injury. 10-Not Attempted due to Environmental Limitations-(lack of equipment, weather restraints, etc.). 88-Not Attempted due to Medical Conditions or Safety Concerns. ADL PLOF Comments Pt states IND with use of 2WW Self Care: Independent Functional Cognition: Independent DME/Equipment: Bath Chair, Grab Bars, Shower DME/Equipment Comments shower, walk in, sc, 2WW, BSC, executive asst Drive Self: Yes OT Current Status Subjective Pt states pain in back. Pt agrees to OT/ PT co-treat. Co-treat rendered due to pt's decreased activity tolerance and pain level requiring the skill of 2 therapists. Mental Status/Objective Patient Orientation: Normal For Age Attachments: Oxygen (2L) Current Glasses/Contacts: Yes Hearing Aids: No Dentures/Partials: No Hand Dominance: Right Upper Extremity ROM WFL BUE Upper Extremity Coordination WFL BUE Upper Extremity Sensation WFL BUE Upper Extremity Strength WFL BUE per observation, though did not test due to precautions. ADL-Treatment Eating (QC): 6 Oral Hygiene (QC): 6 Shower/Bathe Self (QC): 7 Upper Body Dressing (QC): 2 (max A brace donning.) Lower Body Dressing (QC): 7 On/Off Footwear (QC): 1 (TD) Toileting Hygiene (QC): 7 Other Treatments Pt seen in bed. Pt expresses scared/ anxious feeling. Pt reassured. Pt educated on OT/ PT role and education of ARU standards. Pt states she just requires increased time but is able to do quite a bit on her own. Pt states pain, able to complete bed mob with CGA (torso), completes log roll. Back brace donned in bed. Pt sits EOB and completes MMT/ ROM screen. Pt able to sit to stand and transfer to chair with CGA. Pt able to state 1/3 precautions, requires assist with remembering all. Pt requires cues that everything will be okay through session. Pt states has at home who is also IND. pt states kulwinder care assisted prior to COVID with nursing assist. Pt left in room with call light in reach, with PT. OT to continue to educate pt on precautions and AE to increase fx/ safe IND at home. Education OT Patient Education: Correct positioning, Modified ADL techniques, Purpose of tx/functional activities, Reviewed precautions, Rehab process, Safety issues, Transfer techniques Teaching Recipient: Patient Teaching Methods: Demonstration, Discussion Response to Teaching: Verbalize Understanding, Return Demonstration OT Asset Protection Associate Goals Asset Protection Associate Goals Time Frame: Mar 09, 2020 Eating (QC): 6 Oral Hygiene (QC): 6 Toileting Hygiene (QC): 6 Shower/Bathe Self (QC): 6 Upper Body Dressing (QC): 6 Lower Body Dressing (QC): 6 On/Off Footwear (QC): 6 Additional Goals: 1-Demonstrate ADL Tasks, 2-Verbalize Understanding, 3- ImproveStrength/Tessa 1=Demonstrate adherence to instructed precautions during ADL tasks. 2=Patient will verbalize/demonstrate understanding of assistive devices/modifications for ADL. 3=Patient will improve strength/tolerance for activity to enable patient to perform ADL's. OT Education/Plan Problem List/Assessment Assessment: Decreased Activ Tolerance, Impaired Bed Mobility, Impaired Funct Balance, Impaired I ADL's, Impaired Self-Care Skills Discharge Recommendations Plan/Recommendations: Continue POC Therapy Discharge Recommendati: Home & Family Equpiment Recommendations-D/C: Hip Kit Treatment Plan/Plan of Care Treatment,Training & Education: Yes Patient would benefit from OT for education, treatment and training to promote independence in ADL's, mobility, safety and/or upper extremity function for ADL's. Plan of Care: ADL Retraining, Caregiver Training, Concurrent Therapy, Functional Mobility, Group Exercise/Act as Ind, UE Funct Exercise/Act Treatment Duration: Mar 09, 2020 Frequency: At least 5 of 7 days/Wk (IRF) Estimated Hrs Per Day: 1.5 hours per day Agreement: Yes Rehab Potential: Good Time/GCodes Start Time: 11:23 Stop Time: 11:46 Total Time Billed (hr/min): 10 Billed Treatment Time OT/ PT co-treat for 23 min. OT eval 10 min 1SHEREE (10) MADDY DAHL OTR February 24, 2020 11:59
[2020-02-24 12:04] VITALS: BP 110/70
[2020-02-24] MEDS ORDERED: LACT10SO PO (12:57)
[2020-02-24] MEDS ORDERED: OLOP2.5D6 OP (12:57)
[2020-02-24] MEDS ORDERED: MAG355OR17 PO (13:25)
[2020-02-24] MEDS ORDERED: HYDR-3922 PO (13:25)
[2020-02-24] MEDS ORDERED: ONDA8TAB13 PO (13:25)
[2020-02-24] MEDS ORDERED: METR-145 PO (13:25)
[2020-02-24] MEDS: inSUlin ASPART (NovoLOG) 1 UNIT/0.01 ML (CHARGE PER UNIT) SC SCH ×3 (13:32→21:51)
[2020-02-24] MEDS: DOCUSATE SODIUM 100 MG (COLACE) CAP PO SCH ×2 (14:06→21:45)
[2020-02-24] MEDS: SENNA W/DOCUSATE (SENOKOT S) TABLET PO SCH ×2 (14:06→21:49)
[2020-02-24] MEDS: polyethylene glycoL POWDER 17 GM (MIRALAX) PACK PO SCH ×2 (14:06→21:55)
[2020-02-24] MEDS: metroNIDAZOLE 500 MG (FLAGYL) TAB PO SCH ×2 (14:10→21:45)
[2020-02-24] MEDS: ANTACID SUSP 30 ML UDC (MYLANTA) PO PRN ×2 (14:28→20:13)
[2020-02-24] MEDS: GABAPENTIN 300 MG (NEURONTIN) CAP PO SCH ×2 (14:49→20:10)
[2020-02-24 16:26] VITALS: BP 113/59
--- NOTE | 2020-02-24 18:04 | PM&R Post Admission Assessment ---
PM&R HP Date of Visit: February 24, 2020 Time of Visit: 12:30 History of Present Illness CC: s/p L2-5 anterolateral/posterior fusion with laminectomy, L3-4 (R) facetectomy, (L) L4-5 facetectomy on 02/21/[address] Cortez at [facility] HPI: This is a 74yoWF clinic patient of Dr Camejo known to me from prior hospital stays due to severe refractory back pain and psychiatric treatment at [facility] stay 06/21/19 x 2 for treatment of opioid and benzo induced psychosis who had been doing pretty well since last seen 8 months ago until she began experiencing severe back pain once again resulted complete incapacitation prompting consultation with Dr Cortez and subsequent transfer to [facility] in [place] who I was consulted on for medical management following her major spine surgery on 02/21/20 uncomplicated status. Patient still had not had a BM since she was at [facility] but she was passing flatus. Urinary catheter was DC and she has been urinating well. Pain is well controlled currently so will minimize all controlled substances. Patient was able to participate in therapy and was somewhat motivated a bit different than her participation in therapy at [facility] today. 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) Alcohol Use: Denies Use Recreational Drug Use: No Smoking Status: Never a Smoker 2nd Hand Smoke Exposure: No Physical Abuse Screen: No Sexual Abuse: No Recent Foreign Travel: No Contact w/other who traveled: No Recent Hopitalizations: No Recent Infectious Disease Expo: No Immunizations Up To Date Tetanus Booster (TDap): More than 5yrs Date of Pneumonia Vaccine: May 31, 2018 Date of Influenza Vaccine: Aug 25, 2013 Seasonal Allergies Seasonal Allergies: No Past Medical History Surgeries: Adenoidectomy, Appendectomy, Section, Hysterectomy, Oophorectomy, Orthopedic, Tonsillectomy Currently Using CPAP: No Currently Using BIPAP: No Cardiac: High Cholesterol, Hypertension 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: No Sexually Transmitted Disease: No HIV/AIDS: No Female 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 Disorders: Ovarian Cyst Hysterectomy Gastrointestinal: Gastroesophageal Reflux Musculoskeletal: Degenerate Disk Disease, Arthritis, Chronic Back Pain Endocrine: Diabetes, Insulin dep Loss of Vision: Denies Hearing Impairment: Denies Psychosocial: Anxiety, Depression History of Blood Disorders: No Adverse Reaction to Blood [place]: No Family History Cancer 03 FATHER (RADICAL NECK CANCER ) Family history: Cardiovascular disease 09 BROTHER Stroke 09 BROTHER, Onset:58 ( FROM STROKE) Heart Disease, Cancer, Stroke Prior Level of Function Bed Mobility: 6 Transfers: 6 Gait: 6 Stairs: 6 Indoor Mobility (Ambulation): Independent Stairs: Independent Prior Devices Use: None, Walker Self Care: Independent Functional Cognition: Independent Occupation: retired Drive Self: Yes Current Level of Fuctioning Roll Left to Right: 5 Sit to Lyin Lying to Sitting/Side of Bed: 4 Sit to Stand: 4 Chair/Msn-nf-Zmihl Xfer: 4 Car Transfer: 7 Does the Patient Walk: Yes Mode of Locomotion: Walk Anticipated Mode of Locomotion: Walk Walk 10 feet: 4 Walk 50 ft with 2 Turns: 4 Walk 150 ft: 7 Walking 10ft on uneven surface: 7 Gait Assistive Device: FWW Does the Pt Use a Wheelchair: No Wheel 50 ft with 2 turns: 9 Wheel 150 ft: 9 Type of Wheelchair: N/A 1 Step (curb): 7 4 Steps: 7 12 Steps: 7 Picking up an Object: 9 (Pt will use solar energy technician to adhere to lumbar precautions) Eatin Oral Hygiene: 6 Shower/Bathe Self: 7 Upper Body Dressin (max A brace donning.) Lower Body Dressin On/Off Footwear: 1 (TD) Toileting Hygiene: 7 PM&R Allergy/Meds/Data Review Allergies Coded Allergies: clonidine (Verified Allergy, Unknown, NAUSEA, 03/14/19) Penicillins (Unverified Adverse Reaction, Intermediate, 03/14/19) Sulfa (Sulfonamide Antibiotics) (Unverified Adverse Reaction, Intermediate, 03/14/19) Uncoded Allergies: ivp dye (Adverse Reaction, Intermediate, 09/15/13) Home Medications Scheduled Amlodipine Besylate (Amlodipine Besylate), 10 MG PO HS, (Reported) Buspirone HCl (Buspirone HCl), 7.5 MG PO TID, (Reported) Diclofenac Sodium (Diclofenac Sodium), 75 MG PO BID, (Reported) Duloxetine HCl (Duloxetine HCl), 30 MG PO DAILY, (Reported) Gabapentin (Neurontin), 300 MG PO Q6H, (Reported) Insulin Aspart (Novolog Flexpen), SQ TIDAC, (Reported) Lactulose (Lactulose), 10 GM PO BID, (Reported) Losartan Potassium (Losartan Potassium), 100 MG PO DAILY, (Reported) Metoprolol Tartrate (Metoprolol Tartrate), 25 MG PO BID, (Reported) Metronidazole (Metronidazole), 500 MG PO TID, (Reported) Simvastatin (Simvastatin), 10 MG PO HS, (Reported) Scheduled PRN Acetaminophen (Acetaminophen), 500 MG PO TID PRN for PAIN-MILD (1-4) OR TEMPATURE, (Reported) Hydralazine HCl (Hydralazine HCl), 10 MG PO TID PRN for BLOOD PRESSURE, (Reported) Mag Hydrox/Al Hydrox/Simeth (Maalox Maximum Strength Susp), Unknown Dose PO QID PRN for INDIGESTION, (Reported) Ondansetron (Ondansetron Odt), 8 MG PO Q8H PRN for NAUSEA-1ST LINE, (Reported) Miscellaneous Medications Olopatadine HCl (Olopatadine HCl), Unknown Dose OP, (Reported) Discontinued Medications Acetaminophen (Acetaminophen), 500 MG PO TID PRN for PAIN-MILD (1-4), (Reported) Discontinued Reason: Prescription changed Gabapentin (Gabapentin), 300 MG PO QID PRN for NEUROPATHIC PAIN, (Reported) Discontinued Reason: Prescription changed Hydralazine HCl (Hydralazine HCl), 10 MG PO TID PRN for SBP>150, (Reported) Discontinued Reason: No Longer Taking Lactulose (Constulose), 30 ML PO BID PRN for CONSTIPATION-3RD LINE, (Reported) Discontinued Reason: No Longer Taking Mag Hydrox/Al Hydrox/Simeth (Mylanta Suspension), 30 ML PO Q6H PRN for INDIGESTION, (Reported) Discontinued Reason: No Longer Taking Metronidazole (Flagyl), 500 MG PO TID Discontinued Reason: No Longer Taking Olopatadine HCl (Pazeo), 1 DROP OU DAILY PRN for DRY EYES, (Reported) Discontinued Reason: No Longer Taking Ondansetron (Ondansetron Odt), 8 MG PO TID PRN for NAUSEA/VOMITING Discontinued Reason: No Longer Taking Current Medications Current Medications Reviewed Laboratory Data Laboratory Tests 02/24/20 12:01: Glucometer 190H 02/24/20 15:36: Glucometer 179H Review of Systems Constitutional: see HPI, malaise, weakness EENTM: no symptoms reported Respiratory: no symptoms reported Cardiovascular: no symptoms reported Gastrointestinal: constipation Genitourinary: no symptoms reported Musculoskeletal: back pain Skin: no symptoms reported Psychiatric/Neurological: Anxiety, Depressed, Emotional Problems All Other Systems Reviewed Negative Unless Noted: Yes Physical Exam Physical Exam Vital Signs Vital Signs - First Documented 02/24/20 12:04 Temp 36.8 Pulse 100 Resp 20 B/P (MAP) 110/70 Pulse Ox 94 O2 Delivery Nasal Cannula O2 Flow Rate 2.00 Capillary Refill : Height, Weight, BMI Height: 5'7.00" Weight: 180lbs. 0.8oz. [id number]; 202.27 BMI Method:Stated General Appearance: No Apparent Distress, WD/WN, Chronically ill Eyes: Bilateral Eye Normal Inspection, Bilateral Eye PERRL HEENT: PERRL/EOMI, Normal ENT Inspection, Pharynx Normal Neck: Full Range of Motion, Normal Inspection, Non Tender, Supple, Carotid Bruit Respiratory: Chest Non Tender, Lungs Clear, Normal Breath Sounds, No Accessory Muscle Use, No Respiratory Distress Cardiovascular: Regular Rate, Rhythm, No Edema, No Gallop, No JVD, No Murmur, Normal Peripheral Pulses Gastrointestinal: Normal Bowel Sounds, No Organomegaly, No Pulsatile Mass, Non Tender, Soft Back: Normal Inspection, Decreased Range of Motion, Muscle Spasm, Vertebral Tenderness Extremity: Normal Capillary Refill, Normal Inspection, Normal Range of Motion, Non Tender, No Calf Tenderness, No Pedal Edema Neurologic/Psychiatric: Alert, Oriented x3, No Motor/Sensory Deficits, Normal Mood/Affect, planning analyst II-XII Norm as Tested, Other (anxiety) Skin: Normal Color, Warm/Dry Lymphatic: No Adenopathy PM&R Medical Assessment & Plan REHAB/MEDICAL ASSESSMENT AND PLAN: REHAB IMPAIRMENT GROUP: Lumbar stenosis s/p surgical resolution POD # 3 ETIOLOGIC DIAGNOSIS: Lumbar stenosis s/p surgical resolution POD # 3 The comorbidities that impact the patients function and/or functional outcome by: emotional problems and variable motivation with mood swings, severe back pain, opioid and benzo sensitivity, DM REHAB PLAN: The patient is being admitted to our comprehensive inpatient rehabilitation faci lity and can tolerate the intensity of service consisting of at least: 180 minutes of therapy a day, 5 out of 7 days a week Rehab treatment will consist of: PT OT will focus on regaining ADL's and ambulatory skills and energy conservation in order to return home with The patient/family has a good understanding of our discharge process and will benefit from an interdisciplinary inpatient rehabilitation program. The patient has potential to make improvement and is in need of at least two of the following multidisciplinary therapies including but not limited to physical, occupational, speech, and prosthetics and orthotics. Additionally the patient will need services from respiratory, nutritional services, wound care, psycholog y, etc. (Customize this to each patient). Given the patients complex condition and risk of further medical complications, rehabilitation services cannot be safely or effectively provided at a lower level of care such as a fdc facility. BARRIERS TO DISCHARGE: Emotional problems ESTIMATED LOS: 7 days DISPOSITION: Home with RELEVANT CHANGES SINCE PREADMISSION SCREENING: I have compared the patients medical and functional status at the time of the preadmission screening and there are: no changes PROGNOSIS: Good REHABILITATION GOALS: 1. PT OT will focus on regaining ADL's and ambulatory skills and energy conservation in order to return home with All the above goals were reviewed with the patient and he/she is in agreement. By signing this document, I acknowledge that I have personally performed a full physical examination on this patient within 24 hours of admission to this inpatient rehabilitation facility and have determined the patient to be able to tolerate the above course of treatment at an intensive level for a reasonable period of time. I will be completing a detailed individualized Plan of Care for this patient by day #4 of the patients stay based upon the Preadmission Screen, the Post-Admission Evaluation, and the therapy evaluations. Admission Dx/Comorbidities: (1) Lumbar stenosis ICD Codes: M48.061 - Spinal stenosis, lumbar region without neurogenic claudication (2) Hx of psychosis ICD Codes: Z86.59 - Personal history of other mental and behavioral disorders (3) History of opioid abuse ICD Codes: F11.11 - Opioid abuse, in remission (4) Diabetes mellitus ICD Codes: E11.9 - Type 2 diabetes mellitus without complications (5) GERD without esophagitis ICD Codes: K21.9 - Gastro-esophageal reflux disease without esophagitis (6) Malignant hypertension Status: Acute ICD Codes: I10 - Essential (primary) hypertension (7) Hypertension Status: Acute ICD Codes: I10 - Essential (primary) hypertension (8) Debility Status: Acute ICD Codes: R53.81 - Other malaise; G89.29 - Other chronic pain (9) Anxiety about health Status: Chronic ICD Codes: F41.8 - Other specified anxiety disorders HUANG LONDON DO February 24, 2020 18:04
[2020-02-24 18:51] VITALS: BP 112/72
[2020-02-24] MEDS: ACETAMINOPHEN 500 MG TAB (TYLENOL) PO PRN (18:56)
--- NOTE | 2020-02-24 19:53 | NUR ---
bedside report received from LILIBETH BAPTISTE, assume care of pt
--- NOTE | 2020-02-24 20:10 | NUR ---
pt took Colace but refused Senokot & miralax, v/s [phone]%- 100/65, [facility], fsbs 222 NovoLog 3 units given
[2020-02-24 21:00] VITALS: BP 100/65
[2020-02-24] MEDS: ETODOLAC 300 MG (LODINE) CAP PO SCH (21:45)
[2020-02-24] MEDS: MELATONIN 3 MG TABLET PO PRN (21:46)
[2020-02-24] MEDS: SIMvastatin 10 MG (ZOCOR) TAB PO SCH (21:46)
[2020-02-24] MEDS: amLODIPine 10 MG (NORVASC) TAB PO SCH (21:55)
[2020-02-25] MEDS: GABAPENTIN 300 MG (NEURONTIN) CAP PO SCH ×4 (02:16→19:25)
[2020-02-25 04:29] LABS: BASOPHILS % (AUTO) 0 % (0-10); EOSINOPHILS # (AUTO) 0.2 10^3/uL (0.0-0.3); EOSINOPHILS % (AUTO) 2 % (0-10); HEMATOCRIT 32 % (35-52); LYMPHOCYTES # (AUTO) 1.6 X 10^3 (1.0-4.0); LYMPHOCYTES % (AUTO) 15 % (12-44); MEAN CORPUSCULAR HEMOGLOBIN 29 PG (25-34); MEAN CORPUSCULAR HGB CONC 31 G/DL (32-36); MEAN CORPUSCULAR VOLUME 94 FL (80-99); MEAN PLATELET VOLUME 10.6 FL (7.4-10.4); MONOCYTES # (AUTO) 0.7 X 10^3 (0.0-1.0); MONOCYTES % (AUTO) 7 % (0-12); NEUTROPHILS # (AUTO) 8.2 X 10^3 (1.8-7.8); NEUTROPHILS % (AUTO) 77 % (42-75); PLATELET COUNT 79 10^3/uL (130-400); RED CELL DISTRIBUTION WIDTH 14.4 % (10.0-14.5); WHITE BLOOD COUNT 10.7 10^3/uL (4.3-11.0)
[2020-02-25 04:43] LABS: ALBUMIN 2.9 GM/DL (3.2-4.5)
[2020-02-25 04:44] LABS: POTASSIUM 4.4 MMOL/L (3.6-5.0)
[2020-02-25 04:45] LABS: CALCIUM 8.3 MG/DL (8.5-10.1)
[2020-02-25 04:46] LABS: TOTAL PROTEIN 5.2 GM/DL (6.4-8.2)
[2020-02-25 04:48] LABS: BILIRUBIN,TOTAL 0.7 MG/DL (0.1-1.0)
[2020-02-25 04:50] LABS: CREATININE SERUM 1.03 MG/DL (0.60-1.30)
[2020-02-25 06:00] VITALS: BP 108/68
[2020-02-25] MEDS: inSUlin ASPART (NovoLOG) 1 UNIT/0.01 ML (CHARGE PER UNIT) SC SCH ×4 (06:00→21:16)
[2020-02-25 08:00] VITALS: BP 118/60
[2020-02-25] MEDS: metroNIDAZOLE 500 MG (FLAGYL) TAB PO SCH ×3 (08:06→21:12)
[2020-02-25] MEDS: LOSARTAN 100 MG (COZAAR) TABLET PO SCH (08:06)
[2020-02-25] MEDS: ETODOLAC 300 MG (LODINE) CAP PO SCH ×2 (08:06→21:13)
[2020-02-25] MEDS: ACETAMINOPHEN 500 MG TAB (TYLENOL) PO PRN ×2 (08:06→16:28)
[2020-02-25] MEDS: DULoxetine 30 MG (CYMBALTA) CAP PO SCH (08:06)
--- NOTE | 2020-02-25 08:18 | PM&R Progress Note ---
Subjective HPI/CC On Admission Date Seen by Provider: February 25, 2020 Time Seen by Provider: 12:30 Subjective/Events-last exam Patient doing better Had episode of dyspnea yesterday but related to anxiety and she is doing well now No pain like before, she has only great things to say about Dr Cortez Ambulating well BM small and taking laxatives Eating well Maintained on O2 for now Checked meds and labs Conferred with RN Reviewed therapy notes Review of Systems General: Fatigue Pulmonary: Dyspnea Neurological: Weakness, Numbness Objective Exam Vital Signs Vital Signs Date Time Temp Pulse Resp B/P (MAP) Pulse Ox O2 Delivery O2 Flow Rate FiO2 02/25/20 08:00 Nasal Cannula 3.50 02/25/20 08:00 118/60 (79) 02/25/20 06:00 37.2 100 20 93 Capillary Refill : Less Than 3 Seconds General Appearance: No Apparent Distress, WD/WN, Chronically ill HEENT: PERRL/EOMI, Normal ENT Inspection, Pharynx Normal Neck: Full Range of Motion, Normal Inspection, Non Tender, Supple, Carotid Bruit Respiratory: Chest Non Tender, Lungs Clear, Normal Breath Sounds, No Accessory Muscle Use, No Respiratory Distress Cardiovascular: Regular Rate, Rhythm, No Edema, No Gallop, No JVD, No Murmur, Normal Peripheral Pulses Gastrointestinal: Normal Bowel Sounds, No Organomegaly, No Pulsatile Mass, Non Tender, Soft Back: Normal Inspection, Decreased Range of Motion, Muscle Spasm, Vertebral Tenderness Extremity: Normal Capillary Refill, Normal Inspection, Normal Range of Motion, Non Tender, No Calf Tenderness, No Pedal Edema Neurologic/Psychiatric: Alert, Oriented x3, No Motor/Sensory Deficits, Normal Mood/Affect, post anesthesia nurse II-XII Norm as Tested, Other (anxiety) Skin: Normal Color, Warm/Dry Lymphatic: No Adenopathy Results/Procedures Lab Laboratory Tests 02/25/20 04:09 02/25/20 09:56 Patient resulted labs reviewed. FIM Transfers Therapy Code Descriptions/Definitions Functional [place] Measure: 0=Not Assessed/NA 4=Minimal Assistance 1=Total Assistance 5=Supervision or Setup 2=Maximal Assistance 6=Modified [place] 3=Moderate Assistance 7=Complete IndependenceSCALE: Activities may be completed with or without assistive devices. 5-Lwsqtkfvkt-jskcsed completes the activity by him/herself with no assistance from a helper. 5-Set-up or Clean-up Assistance-helper sets up or cleans up; patient completes activity. [place] assists only prior to or following the activity. 4-Supervision or Touching Assistance-helper provides verbal cues and/or touching/steadying and/or contact guard assistance as patient completes activity. Assistance may be provided throughout the activity or intermittently. 3-Partial/Moderate Assistance-helper does LESS THAN HALF the effort. [place] lifts, holds or supports trunk or limbs, but provides less than half the effort. 2-Substantial/Maximal Assistance-helper does MORE THAN HALF the effort. [place] lifts or holds trunk or limbs and provides more than half the effort. 6-Sbvpkxncx-pfnrgc does ALL the effort. Patient does none of the effort to complete the activity. Or, the assistance of 2 or more helpers is required for the patient to complete the activity. If activity was not attempted, code reason: 7-Patient Refused. 9-Not Applicable-not attempted and the patient did not perform the activity before the current illness, exacerbation or injury. 10-Not Attempted due to Environmental Limitations-(lack of equipment, weather restraints, etc.). 88-Not Attempted due to Medical Conditions or Safety Concerns. Roll Left to Right (QC): 5 Sit to Lying (QC): 4 Sit to Stand (QC): 4 Chair/Stb-lr-Vasiq Xfer(QC): 4 Car Transfer (QC): 7 Gait Training Does the Patient Walk?: Yes Walk 10 feet (QC): 4 Walk 50 ft with 2 Turns(QC): 4 Walk 150 ft (QC): 7 Walking 10ft/uneven surface-QC: 7 Gait Assistive Device: FWW Wheelchair Training Does the Pt Use a Wheelchair?: No Wheel 50 ft with 2 turns (QC): 9 Wheel 150 ft (QC): 9 Type of Wheelchair: N/A Stair Training 1 Step (curb) (QC): 7 4 Steps (QC): 7 12 Steps (QC): 7 Balance Picking up an Object (QC): 9 (Pt will use inside sales agent to adhere to lumbar precautions) ADL-Treatment Eating (QC): 6 Oral Hygiene (QC): 6 Shower/Bathe Self (QC): 7 Upper Body Dressing (QC): 2 (max A brace donning.) Lower Body Dressing (QC): 7 On/Off Footwear (QC): 1 (TD) Toileting Hygiene (QC): 7 Assessment/Plan Assessment and Plan Assess & Plan/Chief Complaint Assessment: Lumbar spine surgery urgently performed POD # 4 Dr Cortez PSI [place] DM HTN O2 dependent Emotional problems Psychosis with narcotics and benzos Post op constipation Anemia Plan: BM regimen Pain control but minimize pain meds Kpad IRF protocol Supportive environment for fragile mental health (1) Lumbar stenosis (2) Hx of psychosis (3) History of opioid abuse (4) Diabetes mellitus (5) GERD without esophagitis (6) Malignant hypertension Status: Acute (7) Hypertension Status: Acute (8) Debility Status: Acute (9) Anxiety about health Status: Chronic HUANG LONDON DO February 25, 2020 08:18
--- NOTE | 2020-02-25 08:18 | Individualized Plan of Care ---
Individualized Plan of Care Rehab Nursing IPOC Order Admission Date February 24, 2020 at 11:00 Current Orders Orders Admission Order(Inpt,Obs,Sdc) (02/24/20 07:55) Vital Signs: Per Unit Policy ( 08,16,00 (02/24/20 07:55) Saúl Duncan 09,21 (02/24/20 07:55) Sequential Compression Device Q4H (02/24/20 07:55) Wheel Press Operator-Inpt Rehab Con (02/24/20 07:55) Rehab Nursing Orders-Ipoc (02/24/20 07:55) Physical Therapy Rehab Orders (02/24/20 07:55) Occupational Therapy Rehab Ord (02/24/20 07:55) Speech Therapy Rehab Orders (02/24/20 07:55) Cbc With Automated Diff (02/25/20 06:00) Comprehensive Metabolic Panel (02/25/20 06:00) General/Regular (02/24/20 Lunch) Intake & Output 06,14,22 (02/24/20 07:55) Precautions (Aru) (02/24/20 07:55) Weekly Weight WEEK (02/24/20 07:55) Rehab-Intensity Of Therapy (02/24/20 07:55) Initiate Admission Nursing Pro .admission (02/24/20 07:55) Acetaminophen Tablet (Tylenol Tablet) (02/24/20 08:00) Alprazolam Tablet (Xanax Tablet) (02/24/20 08:00) Calcium Carbonate Chew Tablet (Antacid C (02/24/20 08:00) Diphenhydramine Tablet (Benadryl Tablet) (02/24/20 08:00) Docusate Sodium Capsule (Colace Capsule) (02/24/20 09:00) Docusate Sodium Capsule (Colace Capsule) (02/24/20 08:00) Bisacodyl Suppository (Dulcolax Supposit (02/24/20 08:00) Lactulose Oral Solution (Enulose Oral So (02/24/20 08:00) Na Phos/Na Biphos Enema (Fleet Enema [place] (02/24/20 08:00) Guaifenesin/Codeine Syrup (Robitussin Ac (02/24/20 08:00) Loperamide Tablet (Imodium Tablet) (02/24/20 08:00) Melatonin Tablet (Melatonin Tablet) (02/24/20 08:00) Polyethylene Glycol Powder Pkt (Miralax (02/24/20 09:00) Ondansetron Oral Dissolve Tab (Zofran (02/24/20 08:00) Senna S Tablet (Senokot S Tablet) (02/24/20 09:00) Transfer - Bed/Room/Location (02/24/20 11:00) Patient Visit (02/24/20 ) Pt Eval Low Complexity (02/24/20 ) Functional Activities, Ea 15 (02/24/20 ) Insulin Aspart (Novolog) (Novolog (Charg (02/24/20 13:00) Accucheck Achs ACHS (02/24/20 12:57) Cho 60g/M 1snack (16-2000 Noah) (02/24/20 Lunch) Duloxetine Capsule (Cymbalta Capsule) (02/25/20 09:00) Gabapentin Capsule/Tablet (Neurontin Cap (02/24/20 13:15) Losartan Tablet (Cozaar Tablet) (02/25/20 09:00) Simvastatin Tablet (Zocor Tablet) (02/24/20 21:00) Etodolac Capsule/Tablet (Lodine Capsule/ (02/24/20 21:00) Amlodipine Tablet (Norvasc Tablet) (02/24/20 21:00) Hydralazine Tablet (Apresoline Tablet) (02/24/20 13:45) Metronidazole Tablet (Flagyl Tablet) (02/24/20 13:44) Antacid Suspension (Mylanta Suspension (02/24/20 14:15) Naphazoline/Pheniramine Ophth (Naphcon-A (02/24/20 14:15) Ambulate 08,12,20 (02/24/20 17:01) Sequential Compression Device Q4H (02/24/20 17:01) Dvt/Vte Risk - Notifiy Physici Q4H (02/24/20 17:01) Acetaminophen Tablet (Tylenol Tablet) (02/24/20 18:45) Ekg Tracing (02/24/20 19:06) Platelet Count (02/25/20 08:17) Carboxymethylcell Ophth Soln (Refresh Pl (02/25/20 16:00) Rehab Nursing Orders: Ongoing Assess. of Cognitive Status, Ongoing Assess. of Function Status, Bladder Management, Bladder Scan, Bowel Training, Disease Management & Educaiton, DVT Prophylaxis, Fall Prevention, Fluid/Electrolyte/Nutrition Mgmt, Infection Prevention, Medication Management & Education, Management of Risks & Complications, Management of Skin Intergrity, Nutrition Management, Pain Management, Patient/Family Support, Safety Management Intensity of Therapy to be met Patient to be seen: Min.3h per day/5 of 7d PT IPOC Problem List: Activity Tolerance, Functional Strength, Safety, Balance, Gait, Transfer, Bed Mobility Treatment Plan: Continue Plan of Care Bed Mobility, Education, Functional Activity Tessa, Functional Strength, Group Therapy, Gait, Safety, Therapeutic Exercise, Transfers Treatment Duration: Mar 09, 2020 Frequency: At least 5 of 7 days/Wk (IRF) Estimated Hrs Per Day: 1.5 hours per day OT IPOC Problems: Decreased Activ Tolerance, Impaired Bed Mobility, Impaired Funct Balance, Impaired I ADL's, Impaired Self-Care Skills OT Treatment, Training and Edu: Yes Plan of Care: ADL Retraining, Caregiver Training, Concurrent Therapy, Functional Mobility, Group Exercise/Act as Ind, UE Funct Exercise/Act Treatment Duration: Mar 09, 2020 Frequency: At least 5 of 7 days/Wk (IRF) Estimated Hrs Per Day: 1.[address] IPOC Speech Therapy Treatment Plan: Discontinue ST Treatment Duration: February 24, 2020 Frequency: Modified Program (IRF) Estimated Hrs Per Day: Other Wheel Press Operator/Case Mgmt Wheel Press Operator/Case Managemen: Discharge Planning Dietitian/Evp General Counsel Dietitian/Evp General Counsel to monitor nutritional status and make changes and/or recommendations as needed and work with speech pathology on dietary upgrades as the occur. Physician IPOC Medical Issues being managed closely and that require the 24 hour availability of a physician: Recent major spine surgery with fragile emotional well being with significant anemia and post op constipation in need of close monitoring for decompensation Medical Issues: Bowel/Bladder Function, DVT Prophylaxis, Falls Precautions, Fluid/Electrolyte/Nutrition Balance, Infection Protection, Pain Management Brief Synthesis of Preadmission Screen, Post-Admission Evaluation, and Therapy Evaluations: PT OT will focus on regaining enough ADL's and strength in order to return home with Medical Prognosis: Good Anticipated Length of Stay: 7 days HUANG LONDON DO February 25, 2020 08:18
[2020-02-25] MEDS: polyethylene glycoL POWDER 17 GM (MIRALAX) PACK PO SCH ×2 (10:45→21:14)
[2020-02-25] MEDS: DOCUSATE SODIUM 100 MG (COLACE) CAP PO SCH ×2 (10:45→21:13)
[2020-02-25] MEDS: SENNA W/DOCUSATE (SENOKOT S) TABLET PO SCH ×2 (10:45→21:14)
[2020-02-25] MEDS: ARTIFICAL TEARS 0.4 ML UNIT DOSE (REFRESH PLUS) OU PRN (16:09)
[2020-02-25 18:00] VITALS: BP 103/67
--- NOTE | 2020-02-25 19:15 | NUR ---
bedside report received from ENIO BAPTISTE, assume care of pt
--- NOTE | 2020-02-25 19:26 | NUR ---
pt c/o constipation, Dulcolax 10mg suppository given pt up in the chair
[2020-02-25 21:12] VITALS: BP 104/66
[2020-02-25] MEDS: SIMvastatin 10 MG (ZOCOR) TAB PO SCH (21:12)
[2020-02-25] MEDS: MELATONIN 3 MG TABLET PO PRN (21:13)
--- NOTE | 2020-02-25 21:14 | NUR ---
v/s 101-104/66 Norvasc 10mg held, fsbs 231 NovoLog 3 units given
[2020-02-25] MEDS: amLODIPine 10 MG (NORVASC) TAB PO SCH (21:18)
--- NOTE | 2020-02-25 21:50 | NUR ---
pt had moderate hard brown stool, back to bed
[2020-02-26] MEDS: GABAPENTIN 300 MG (NEURONTIN) CAP PO SCH ×4 (01:05→19:20)
[2020-02-26] MEDS: ACETAMINOPHEN 500 MG TAB (TYLENOL) PO PRN ×3 (02:26→19:20)
--- NOTE | 2020-02-26 02:26 | NUR ---
c/o hurting all over, pain level 6/10 on numeric scale, Tylenol 1000 mg given
--- NOTE | 2020-02-26 03:10 | NUR ---
resting quietly in bed, pain level 0/10 on CNPI scale
[2020-02-26] MEDS: inSUlin ASPART (NovoLOG) 1 UNIT/0.01 ML (CHARGE PER UNIT) SC SCH ×4 (06:00→21:07)
[2020-02-26 06:05] VITALS: BP 106/67
[2020-02-26] MEDS: NAPHA/PHEN (NAPHCON-A, OPCON-A) OP SOLN 15 ML BTL OU PRN (06:52)
--- NOTE | 2020-02-26 08:31 | Physical Therapy Daily Note ---
PT Daily Note-Current Subjective Pt sitting up in recliner upon arrival. Pt reports fatigue, anxiety and pain in low back and B hips. Pt agrees to PT/OT co-treat due to need for 2 skilled clinicians and medical complexities. Pain Numeric Pain Scale: 5-Moderate Pain Location: Lower Location Body Site: Back Pain Description: Ache, Tightness Mental Status Patient Orientation: Person, Place, Situation Transfers SCALE: Activities may be completed with or without assistive devices. 9-Coefsrctqq-zvrgwxa completes the activity by him/herself with no assistance from a helper. 5-Set-up or Clean-up Assistance-helper sets up or cleans up; patient completes activity. [place] assists only prior to or following the activity. 4-Supervision or Touching Assistance-helper provides verbal cues and/or t ouching/steadying and/or contact guard assistance as patient completes activity. Assistance may be provided throughout the activity or intermittently. 3-Partial/Moderate Assistance-helper does LESS THAN HALF the effort. [place] lifts, holds or supports trunk or limbs, but provides less than half the effort. 2-Substantial/Maximal Assistance-helper does MORE THAN HALF the effort. [place] lifts or holds trunk or limbs and provides more than half the effort. 2-Etgyexbmc-dhezpb does ALL the effort. Patient does none of the effort to complete the activity. Or, the assistance of 2 or more helpers is required for the patient to complete the activity. If activity was not attempted, code reason: 7-Patient Refused. 9-Not Applicable-not attempted and the patient did not perform the activity before the current illness, exacerbation or injury. 10-Not Attempted due to Environmental Limitations-(lack of equipment, weather restraints, etc.). 88-Not Attempted due to Medical Conditions or Safety Concerns. Sit to Stand (QC): 5 Weight Bearing Right Lower Extremity: Right Full Weight Bearing Left Lower Extremity: Left Full Weight Bearing Exercises Supine Ex: Ankle pumps, Quad Set, Straight leg raise Supine Reps: 15 Seated Therapy Exercises: Sit to stand Treatments Pt completes Supine Ex in recliner while preparing for ADLs. Pt completes ADLs including sponge bath, dressing, brushing hair and teeth. Pt is assisted with don/doff of lumbar back brace. Pt returns to recliner at end of Rx to rest as Nurse arrives. Pt has all needs met, call light in hand. Assessment Current Status: Fair Progress Pt demonstrates increased anxiety and pain with movement. PT is encouraged to Purse lip breathe and pt is able to relax. PT Short Term Goals Short Term Goals Time Frame: March 02, 2020 Roll Left & Right: 6 Sit to lyin Lying to sitting on side of be: 6 Sit to stand: 6 Chair/kzc-sf-tdfrv transfer: 6 PT Custodial Goals Brand Strategist Goals PT Brand Strategist Goals Time Frame: Mar 09, 2020 Roll Left & Right (QC): 6 Sit to Lying (QC): 6 Lying-Sitting on Side/Bed(QC): 6 Sit to Stand (QC): 6 Chair/Dzl-ok-Cwjbe Xfer(QC): 6 Toilet Transfer (QC): 6 Car Transfer (QC): 6 Does the Patient Walk: Yes Walk 10 feet (QC): 6 Walk 50ft with 2 Turns (QC): 6 Walk 150 ft (QC): 6 Walking 10ft on Uneven Surface: 6 1 Step (curb) (QC): 6 4 Steps (QC): 6 12 Steps (QC): 9 Picking up an Object (QC): 9 Does the Pt use WC or Scooter?: No Wheel 50 feet with 2 turns (QC: 9 Type: N/A Wheel 150 feet: 9 Type: N/A PT Plan Problem List Problem List: Activity Tolerance, Functional Strength, Safety, Gait Treatment/Plan Treatment Plan: Continue Plan of Care Treatment Plan: Bed Mobility, Education, Functional Activity Tessa, Functional Strength, Group Therapy, Gait, Safety, Therapeutic Exercise, Transfers Treatment Duration: Mar 09, 2020 Frequency: At least 5 of 7 days/Wk (IRF) Estimated Hrs Per Day: 1.5 hours per day Patient and/or Family Agrees t: Yes Safety Risks/Education Patient Education: Transfer Techniques, Correct Positioning, Reviewed Don/Doff Brace, Safety Issues Teaching Recipient: Patient Teaching Methods: Discussion Response to Teaching: Verbalize Understanding Time/GCodes Time In: 800 Time Out: 900 Total Billed Treatment Time: 60 Total Billed Treatment 1, EX (15m) & FA x3 (45m) ANDI CHAUDHRY MEDICAL TECHNOLOGIST February 26, 2020 08:31
--- NOTE | 2020-02-26 08:46 | Occupational Ther Daily Note ---
OT Current Status-Daily Note Subjective Pt alert, sitting in w/c. Pt highly anxious about moving and not doing enough work for rehab. Pt required encouragement for calming. C/o pain, rated 5-6/10 at lower back and hip area. Pt agrees tot herapy. Mental Status/Objective Patient Orientation: Person, Place, Time, Situation Attachments: IV ADL-Treatment OT/PT co-treat ([id number]), skills of 2 clinician required for skilled technique and instruction due to medical complexity, increased pain, low activity tolerance and decreased mobility. PT working on B LE strengthening, standing during functional tasks and mobility. OT working on ADLs, positioning during standing, education for precautions and AE. Pt has difficulty moving due to increased pain and anxiety. Pt agrees to sponge bath. Pt is able to reach all areas, after set up, except lower legs, feet and buttocks. Pt only able to stand for limited amount of time due to increase pain. After set up, pt able to complete oral care by self. After set up, pt donned/doffed upper body clothing by self. Due to precautions, pt unable to initiate lower body clothing over feet though able to pull up to buttocks, hikes underwear over hips then assist to hike pants over hips due to pain. Assist to stand x2 due to increased pain. After session, nrsg in room with call light/phone in reach. All needs met in room. Therapy Code Descriptions/Definitions Functional [place] Measure: 0=Not Assessed/NA 4=Minimal Assistance 1=Total Assistance 5=Supervision or Setup 2=Maximal Assistance 6=Modified [place] 3=Moderate Assistance 7=Complete IndependenceSCALE: Activities may be completed with or without assistive devices. 8-Lpotwfslnt-rdoorce completes the activity by him/herself with no assistance from a helper. 5-Set-up or Clean-up Assistance-helper sets up or cleans up; patient completes activity. [place] assists only prior to or following the activity. 4-Supervision or Touching Assistance-helper provides verbal cues and/or touching/steadying and/or contact guard assistance as patient completes activity. Assistance may be provided throughout the activity or intermittently. 3-Partial/Moderate Assistance-helper does LESS THAN HALF the effort. [place] lifts, holds or supports trunk or limbs, but provides less than half the effort. 2-Substantial/Maximal Assistance-helper does MORE THAN HALF the effort. [place] lifts or holds trunk or limbs and provides more than half the effort. 1-Sdwdqigmm-wfalgs does ALL the effort. Patient does none of the effort to complete the activity. Or, the assistance of 2 or more helpers is required for the patient to complete the activity. If activity was not attempted, code reason: 7-Patient Refused. 9-Not Applicable-not attempted and the patient did not perform the activity before the current illness, exacerbation or injury. 10-Not Attempted due to Environmental Limitations-(lack of equipment, weather restraints, etc.). 88-Not Attempted due to Medical Conditions or Safety Concerns. Oral Hygiene (QC): 5 Shower/Bathe Self (QC): 2 Upper Body Dressing (QC): 5 Lower Body Dressing (QC): 1 On/Off Footwear: 2 OT Mental Health Case Manager Goals [facility] Goals Time Frame: Mar 09, 2020 Eating (QC): 6 Oral Hygiene (QC): 6 Toileting Hygiene (QC): 6 Shower/Bathe Self (QC): 6 Upper Body Dressing (QC): 6 Lower Body Dressing (QC): 6 On/Off Footwear (QC): 6 Additional Goals: 1-Demonstrate ADL Tasks, 2-Verbalize Understanding, 3- ImproveStrength/Tessa 1=Demonstrate adherence to instructed precautions during ADL tasks. 2=Patient will verbalize/demonstrate understanding of assistive devices/modifications for ADL. 3=Patient will improve strength/tolerance for activity to enable patient to perform ADL's. OT Education/Plan Problem List/Assessment Assessment: Decreased Activ Tolerance, Decreased Safety Aware, Decreased UE Strength, Impaired Cognition, Impaired Coordination, Impaired Funct Balance, Impaired Self-Care Skills, Restricted Funct UE ROM, Visual-Perceptual Deficit Discharge Recommendations Plan/Recommendations: Continue POC Treatment Plan/Plan of Care Patient would benefit from OT for education, treatment and training to promote independence in ADL's, mobility, safety and/or upper extremity function for ADL's. Plan of Care: ADL Retraining, Caregiver Training, Concurrent Therapy, Functional Mobility, Group Exercise/Act as Ind, UE Funct Exercise/Act Treatment Duration: Mar 09, 2020 Frequency: At least 5 of 7 days/Wk (IRF) Estimated Hrs Per Day: 1.5 hours per day Agreement: Yes Rehab Potential: Good Time/GCodes Start Time: 08:00 Stop Time: 09:00 Total Time Billed (hr/min): 10 Billed Treatment Time 1 visit-ADL 4 (60 min) PT co-treat [id number] (60 min) LORENA BEACH February 26, 2020 08:45
[2020-02-26] MEDS: metroNIDAZOLE 500 MG (FLAGYL) TAB PO SCH ×3 (08:47→21:05)
[2020-02-26 08:48] VITALS: BP 123/62
[2020-02-26] MEDS: DOCUSATE SODIUM 100 MG (COLACE) CAP PO SCH ×2 (08:48→21:05)
[2020-02-26] MEDS: polyethylene glycoL POWDER 17 GM (MIRALAX) PACK PO SCH ×2 (08:48→21:07)
[2020-02-26] MEDS: LOSARTAN 100 MG (COZAAR) TABLET PO SCH (08:48)
[2020-02-26] MEDS: ETODOLAC 300 MG (LODINE) CAP PO SCH ×2 (08:48→21:05)
[2020-02-26] MEDS: SENNA W/DOCUSATE (SENOKOT S) TABLET PO SCH ×2 (08:48→21:05)
[2020-02-26] MEDS: DULoxetine 30 MG (CYMBALTA) CAP PO SCH (08:48)
--- NOTE | 2020-02-26 12:53 | PM&R Progress Note ---
Subjective HPI/CC On Admission Date Seen by Provider: February 26, 2020 Time Seen by Provider: 13:00 Subjective/Events-last exam Patient doing better Requires O2 at times No pain like before, she has only great things to say about Dr Cortez but she does struggle with functionality of walking and other activity Ambulating well with walker but has little confidence BM small and taking laxatives so will give SSE if needed Kpad and Voltaren gel provided Eating well Checked meds and labs Conferred with RN Reviewed therapy notes Review of Systems General: Fatigue Musculoskeletal: back pain Objective Exam Vital Signs Vital Signs Date Time Temp Pulse Resp B/P (MAP) Pulse Ox O2 Delivery O2 Flow Rate FiO2 02/26/20 16:00 36.5 88 16 96/61 (73) 95 Room Air 02/26/20 06:05 2.00 Capillary Refill : Less Than 3 Seconds General Appearance: No Apparent Distress, WD/WN, Chronically ill HEENT: PERRL/EOMI, Normal ENT Inspection, Pharynx Normal Neck: Full Range of Motion, Normal Inspection, Non Tender, Supple, Carotid Bruit Respiratory: Chest Non Tender, Lungs Clear, Normal Breath Sounds, No Accessory Muscle Use, No Respiratory Distress Cardiovascular: Regular Rate, Rhythm, No Edema, No Gallop, No JVD, No Murmur, Normal Peripheral Pulses Gastrointestinal: Normal Bowel Sounds, No Organomegaly, No Pulsatile Mass, Non Tender, Soft Back: Normal Inspection, Decreased Range of Motion, Muscle Spasm, Vertebral Tenderness Extremity: Normal Capillary Refill, Normal Inspection, Normal Range of Motion, Non Tender, No Calf Tenderness, No Pedal Edema Neurologic/Psychiatric: Alert, Oriented x3, No Motor/Sensory Deficits, Normal Mood/Affect, barman II-XII Norm as Tested, Other (anxiety) Skin: Normal Color, Warm/Dry Lymphatic: No Adenopathy Results/Procedures Lab Patient resulted labs reviewed. FIM Transfers Therapy Code Descriptions/Definitions Functional [place] Measure: 0=Not Assessed/NA 4=Minimal Assistance 1=Total Assistance 5=Supervision or Setup 2=Maximal Assistance 6=Modified [place] 3=Moderate Assistance 7=Complete IndependenceSCALE: Activities may be completed with or without assistive devices. 7-Ulzaflzlte-nwddgoo completes the activity by him/herself with no assistance from a helper. 5-Set-up or Clean-up Assistance-helper sets up or cleans up; patient completes activity. [place] assists only prior to or following the activity. 4-Supervision or Touching Assistance-helper provides verbal cues and/or touching/steadying and/or contact guard assistance as patient completes activity. Assistance may be provided throughout the activity or intermittently. 3-Partial/Moderate Assistance-helper does LESS THAN HALF the effort. [place] lifts, holds or supports trunk or limbs, but provides less than half the effort. 2-Substantial/Maximal Assistance-helper does MORE THAN HALF the effort. [place] lifts or holds trunk or limbs and provides more than half the effort. 6-Zndxgroia-xpeneb does ALL the effort. Patient does none of the effort to complete the activity. Or, the assistance of 2 or more helpers is required for the patient to complete the activity. If activity was not attempted, code reason: 7-Patient Refused. 9-Not Applicable-not attempted and the patient did not perform the activity before the current illness, exacerbation or injury. 10-Not Attempted due to Environmental Limitations-(lack of equipment, weather restraints, etc.). 88-Not Attempted due to Medical Conditions or Safety Concerns. Roll Left to Right (QC): 5 Sit to Lying (QC): 4 Sit to Stand (QC): 5 Chair/Sis-ct-Jcaqg Xfer(QC): 4 Car Transfer (QC): 7 Gait Training Does the Patient Walk?: Yes Walk 10 feet (QC): 4 Walk 50 ft with 2 Turns(QC): 4 Walk 150 ft (QC): 7 Walking 10ft/uneven surface-QC: 7 Gait Assistive Device: FWW Wheelchair Training Does the Pt Use a Wheelchair?: No Wheel 50 ft with 2 turns (QC): 9 Wheel 150 ft (QC): 9 Type of Wheelchair: N/A Stair Training 1 Step (curb) (QC): 7 4 Steps (QC): 7 12 Steps (QC): 7 Balance Picking up an Object (QC): 9 (Pt will use dialysis equipment technician to adhere to lumbar precautions) ADL-Treatment Eating (QC): 6 Oral Hygiene (QC): 5 Shower/Bathe Self (QC): 2 Upper Body Dressing (QC): 5 Lower Body Dressing (QC): 1 On/Off Footwear (QC): 2 Toileting Hygiene (QC): 7 Assessment/Plan Assessment and Plan Assess & Plan/Chief Complaint Assessment: Lumbar spine surgery urgently performed POD # 5 Dr Cortez PSI [place] DM HTN O2 dependent currently Emotional problems Psychosis with narcotics and benzos Post op constipation still a bit constipated but improved Anemia Plan: BM regimen Pain control but minimize pain meds Kpad IRF protocol Supportive environment for fragile mental health (1) Lumbar stenosis (2) Hx of psychosis (3) History of opioid abuse (4) Diabetes mellitus (5) GERD without esophagitis (6) Malignant hypertension Status: Acute (7) Hypertension Status: Acute (8) Debility Status: Acute (9) Anxiety about health Status: Chronic HUANG LONDON DO February 26, 2020 12:53
--- NOTE | 2020-02-26 14:35 | Therapy Group Daily Note ---
Therapy Daily Group Note Patient Education Topic Exercises Exercises LE Seated Exercise, UE Exercise Session Ratio (pt:therapist): 4:1 Goal of Session: Education on ARU Expectations, UE/LE Strengthing, Use of Adaptive Equipment Goal Met for this Session: Yes Pt Benefit of Group: Contributions to Others, F/U Use of Strategies @Home, Increased Functional Safety, Increased Functional Strength, Improved Cognition, Recognition of Peers, Socialization Other/Notes Pt ambulated with FWW to therapy gym for OT group. Group consisted of introductions (name, place living, favorite pizza), socialization, seated UE/LE exercises, ARU description/expectations and AE for dressing. Pt introduced self appropriately and actively listened to peers. Pt verbalized understanding of educational topics by giving own strategies. Pt able to complete B UE/B LE exercises well.. After session, pt lying in bed, safety measures in place. Call light/phone in reach. All needs met in room. Start Time: 13:00 Stop Time: 14:00 Total Billed Treatment Time: 60 Total Billed Treatment 1-GRP LORENA BEACH February 26, 2020 14:35
[2020-02-26 16:00] VITALS: BP 96/61
--- NOTE | 2020-02-26 19:15 | NUR ---
bedside report received from ENIO BAPTISTE, assume care of pt
--- NOTE | 2020-02-26 19:20 | NUR ---
c/o back pain, pain level 6/10 on numeric scale, Tylenol 1000 mg given
--- NOTE | 2020-02-26 20:10 | NUR ---
rates pain 3/10 on numeric scale
--- NOTE | 2020-02-26 20:20 | NUR ---
fsbs 212 NovoLog insulin 3 units given
[2020-02-26 21:00] VITALS: BP 120/73
[2020-02-26] MEDS: SIMvastatin 10 MG (ZOCOR) TAB PO SCH (21:04)
[2020-02-26] MEDS: MELATONIN 3 MG TABLET PO PRN (21:05)
[2020-02-26] MEDS: amLODIPine 10 MG (NORVASC) TAB PO SCH (21:05)
[2020-02-26] MEDS: DICLOFENAC 1% GEL 100 GM (VOLTAREN) TUBE TOP SCH (21:09)
[2020-02-26] MEDS: ARTIFICAL TEARS 0.4 ML UNIT DOSE (REFRESH PLUS) OU PRN (21:12)
--- NOTE | 2020-02-27 00:59 | NUR ---
c/o nausea, zofran 4mg on tongue given
[2020-02-27] MEDS: GABAPENTIN 300 MG (NEURONTIN) CAP PO SCH ×4 (01:45→18:15)
[2020-02-27] MEDS: ACETAMINOPHEN 500 MG TAB (TYLENOL) PO PRN ×3 (02:49→23:12)
--- NOTE | 2020-02-27 02:49 | NUR ---
c/o gas pain, level 6/10 on numeric scale, Tylenol 1000mg given
--- NOTE | 2020-02-27 03:40 | NUR ---
has been up & down to bathroom with gas discomfort, rates pain at 4/10 on numeric scale, has had stools x2
[2020-02-27 05:28] VITALS: BP 112/69
[2020-02-27] MEDS: inSUlin ASPART (NovoLOG) 1 UNIT/0.01 ML (CHARGE PER UNIT) SC SCH ×4 (06:00→21:12)
--- NOTE | 2020-02-27 07:17 | PM&R Progress Note ---
Subjective HPI/CC On Admission Date Seen by Provider: February 27, 2020 Time Seen by Provider: 10:45 Subjective/Events-last exam Ears are popping she thinks she is getting some sort of sinus congestion and I will start Claritin 10mg twice daily Bowels are really moving now Having gas pain, Pepcid Simethicone started that should help her Insomnia due due to the multiple bowel movements Holding Cozaar because systolic is less than 130 Kpad and Voltaren gel provided Eating well Checked meds and labs Conferred with RN Reviewed therapy notes Review of Systems General: Fatigue Musculoskeletal: back pain Objective Exam Vital Signs Vital Signs Date Time Temp Pulse Resp B/P (MAP) Pulse Ox O2 Delivery O2 Flow Rate FiO2 02/27/20 20:20 Room Air 02/27/20 16:41 36.8 95 16 110/73 (85) 96 02/26/20 06:05 2.00 Capillary Refill : Less Than 3 Seconds General Appearance: No Apparent Distress, WD/WN, Chronically ill HEENT: PERRL/EOMI, Normal ENT Inspection, Pharynx Normal Neck: Full Range of Motion, Normal Inspection, Non Tender, Supple, Carotid Bruit Respiratory: Chest Non Tender, Lungs Clear, Normal Breath Sounds, No Accessory Muscle Use, No Respiratory Distress Cardiovascular: Regular Rate, Rhythm, No Edema, No Gallop, No JVD, No Murmur, Normal Peripheral Pulses Gastrointestinal: Normal Bowel Sounds, No Organomegaly, No Pulsatile Mass, Non Tender, Soft Back: Normal Inspection, Decreased Range of Motion, Muscle Spasm, Vertebral Tenderness Extremity: Normal Capillary Refill, Normal Inspection, Normal Range of Motion, Non Tender, No Calf Tenderness, No Pedal Edema Neurologic/Psychiatric: Alert, Oriented x3, No Motor/Sensory Deficits, Normal Mood/Affect, seafood process worker II-XII Norm as Tested, Other (anxiety) Skin: Normal Color, Warm/Dry Lymphatic: No Adenopathy Results/Procedures Lab Patient resulted labs reviewed. FIM Transfers Therapy Code Descriptions/Definitions Functional [place] Measure: 0=Not Assessed/NA 4=Minimal Assistance 1=Total Assistance 5=Supervision or Setup 2=Maximal Assistance 6=Modified [place] 3=Moderate Assistance 7=Complete IndependenceSCALE: Activities may be completed with or without assistive devices. 6-Kylnbrmibh-mdhntng completes the activity by him/herself with no assistance from a helper. 5-Set-up or Clean-up Assistance-helper sets up or cleans up; patient completes activity. [place] assists only prior to or following the activity. 4-Supervision or Touching Assistance-helper provides verbal cues and/or touching/steadying and/or contact guard assistance as patient completes activity. Assistance may be provided throughout the activity or intermittently. 3-Partial/Moderate Assistance-helper does LESS THAN HALF the effort. [place] lifts, holds or supports trunk or limbs, but provides less than half the effort. 2-Substantial/Maximal Assistance-helper does MORE THAN HALF the effort. [place] lifts or holds trunk or limbs and provides more than half the effort. 8-Jtwncrjes-wuxnpt does ALL the effort. Patient does none of the effort to complete the activity. Or, the assistance of 2 or more helpers is required for the patient to complete the activity. If activity was not attempted, code reason: 7-Patient Refused. 9-Not Applicable-not attempted and the patient did not perform the activity before the current illness, exacerbation or injury. 10-Not Attempted due to Environmental Limitations-(lack of equipment, weather restraints, etc.). 88-Not Attempted due to Medical Conditions or Safety Concerns. Roll Left to Right (QC): 5 Sit to Lying (QC): 4 Sit to Stand (QC): 5 Chair/Dmw-kz-Ziqvq Xfer(QC): 4 Car Transfer (QC): 7 Gait Training Does the Patient Walk?: Yes Walk 10 feet (QC): 4 Walk 50 ft with 2 Turns(QC): 4 Walk 150 ft (QC): 7 Walking 10ft/uneven surface-QC: 7 Gait Assistive Device: FWW Wheelchair Training Does the Pt Use a Wheelchair?: No Wheel 50 ft with 2 turns (QC): 9 Wheel 150 ft (QC): 9 Type of Wheelchair: N/A Stair Training 1 Step (curb) (QC): 7 4 Steps (QC): 7 12 Steps (QC): 7 Balance Picking up an Object (QC): 9 (Pt will use predatory game hunter to adhere to lumbar precautions) ADL-Treatment Eating (QC): 6 Oral Hygiene (QC): 5 Shower/Bathe Self (QC): 2 Upper Body Dressing (QC): 5 Lower Body Dressing (QC): 1 On/Off Footwear (QC): 2 Toileting Hygiene (QC): 7 Assessment/Plan Assessment and Plan Assess & Plan/Chief Complaint Assessment: Lumbar spine surgery urgently performed POD # 6 Dr Dana Lindaena DM HTN O2 dependent currently Emotional problems Psychosis with narcotics and benzos Post op constipation still a bit constipated but improved Anemia Ears popping- [place] and if needed Dr Calvo consultation Plan: BM regimen Pain control but minimize pain meds Kpad IRF protocol Supportive environment for fragile mental health (1) Lumbar stenosis (2) Hx of psychosis (3) History of opioid abuse (4) Diabetes mellitus (5) GERD without esophagitis (6) Malignant hypertension Status: Acute (7) Hypertension Status: Acute (8) Debility Status: Acute (9) Anxiety about health Status: Chronic HUANG LONDON DO February 27, 2020 07:17
[2020-02-27] MEDS: metroNIDAZOLE 500 MG (FLAGYL) TAB PO SCH ×3 (08:18→21:27)
[2020-02-27] MEDS: ETODOLAC 300 MG (LODINE) CAP PO SCH ×2 (08:18→21:27)
[2020-02-27] MEDS: DULoxetine 30 MG (CYMBALTA) CAP PO SCH (08:18)
[2020-02-27] MEDS: NAPHA/PHEN (NAPHCON-A, OPCON-A) OP SOLN 15 ML BTL OU PRN (08:19)
[2020-02-27] MEDS: CALCIUM CARBONATE 500 MG (TUMS) TAB.CHEW PO PRN ×2 (08:21→19:16)
[2020-02-27] MEDS: polyethylene glycoL POWDER 17 GM (MIRALAX) PACK PO SCH ×2 (08:22→21:57)
[2020-02-27] MEDS: DOCUSATE SODIUM 100 MG (COLACE) CAP PO SCH ×2 (08:22→21:57)
[2020-02-27] MEDS: SENNA W/DOCUSATE (SENOKOT S) TABLET PO SCH ×2 (08:22→21:57)
[2020-02-27] MEDS: DICLOFENAC 1% GEL 100 GM (VOLTAREN) TUBE TOP SCH ×2 (08:49→21:12)
--- NOTE | 2020-02-27 10:04 | Physical Therapy Daily Note ---
PT Daily Note-Current Subjective Pt laying Supine in bed upon arrival. Pt agrees to PT. Pain Numeric Pain Scale: 7 Location Body Site: Back Pain Description: Tightness Mental Status Patient Orientation: Person, Place Transfers SCALE: Activities may be completed with or without assistive devices. 5-Cswerugovl-kjwqqcg completes the activity by him/herself with no assistance from a helper. 5-Set-up or Clean-up Assistance-helper sets up or cleans up; patient completes activity. [place] assists only prior to or following the activity. 4-Supervision or Touching Assistance-helper provides verbal cues and/or touching/steadying and/or contact guard assistance as patient completes activity. Assistance may be provided throughout the activity or intermittently. 3-Partial/Moderate Assistance-helper does LESS THAN HALF the effort. [place] lifts, holds or supports trunk or limbs, but provides less than half the effort. 2-Substantial/Maximal Assistance-helper does MORE THAN HALF the effort. [place] lifts or holds trunk or limbs and provides more than half the effort. 8-Tyhocfjap-gogvbt does ALL the effort. Patient does none of the effort to complete the activity. Or, the assistance of 2 or more helpers is required for the patient to complete the activity. If activity was not attempted, code reason: 7-Patient Refused. 9-Not Applicable-not attempted and the patient did not perform the activity before the current illness, exacerbation or injury. 10-Not Attempted due to Environmental Limitations-(lack of equipment, weather restraints, etc.). 88-Not Attempted due to Medical Conditions or Safety Concerns. Sit to Lying (QC): 5 Lying to Sitting/Side of Bed(Q: 5 Sit to Stand (QC): 5 Weight Bearing Right Lower Extremity: Right Full Weight Bearing Left Lower Extremity: Left Full Weight Bearing Gait Training Does the Patient Walk?: Yes Distance: 200' Walk 10 feet (QC): 5 Walk 50 ft with 2 Turns(QC): 5 Walk 150 ft (QC): 5 Gait Persons Needed: 1 Gait Assistive Device: FWW Exercises Supine Ex: Ankle pumps, Quad Set, Heel Slides, Straight leg raise, Hip abd/add Supine Reps: 20 Treatments Pt asks for morning meds including something for nausea/heart burn. Pt completes Supine Ex in bed before transferring to EOB. Pt takes RB and assists with donning of lumbar brace. Pt transfers to standing then ambulates in hallway. Pt returns to room to rest in recliner at end of Rx. Pt has all needs met, call light in hand. Assessment Current Status: Fair Progress Pt is limited by anxiety, pain and heart burn during Rx. PT Short Term Goals Short Term Goals Time Frame: March 02, 2020 Roll Left & Right: 6 Sit to lyin Lying to sitting on side of be: 6 Sit to stand: 6 Chair/tsn-pl-gkcca transfer: 6 PT Tar Man Goals Tar Man Goals PT Correction Goals Time Frame: Mar 09, 2020 Roll Left & Right (QC): 6 Sit to Lying (QC): 6 Lying-Sitting on Side/Bed(QC): 6 Sit to Stand (QC): 6 Chair/Ylz-gu-Srmsq Xfer(QC): 6 Toilet Transfer (QC): 6 Car Transfer (QC): 6 Does the Patient Walk: Yes Walk 10 feet (QC): 6 Walk 50ft with 2 Turns (QC): 6 Walk 150 ft (QC): 6 Walking 10ft on Uneven Surface: 6 1 Step (curb) (QC): 6 4 Steps (QC): 6 12 Steps (QC): 9 Picking up an Object (QC): 9 Does the Pt use WC or Scooter?: No Wheel 50 feet with 2 turns (QC: 9 Type: N/A Wheel 150 feet: 9 Type: N/A PT Plan Problem List Problem List: Activity Tolerance, Functional Strength, Bed Mobility Treatment/Plan Treatment Plan: Continue Plan of Care Treatment Plan: Bed Mobility, Education, Functional Activity Tessa, Functional Strength, Group Therapy, Gait, Safety, Therapeutic Exercise, Transfers Treatment Duration: Mar 09, 2020 Frequency: At least 5 of 7 days/Wk (IRF) Estimated Hrs Per Day: 1.5 hours per day Patient and/or Family Agrees t: Yes Safety Risks/Education Patient Education: Gait Training, Transfer Techniques, Correct Positioning, Safety Issues Teaching Recipient: Patient Teaching Methods: Discussion Response to Teaching: Verbalize Understanding Time/GCodes Time In: 800 Time Out: 900 Total Billed Treatment Time: 60 Total Billed Treatment 1, FA x2 (25m), EX (20m) & GT (15m) ANDI CHAUDHRY REGIONAL MANAGER February 27, 2020 10:03
--- NOTE | 2020-02-27 10:13 | ST Cognitive Linguistic Eval ---
Speech Evaluation-General Medical Diagnosis LBP with radiculopathy s/o fusion Onset Date: February 21, 2020 Therapy Diagnosis Therapy Diagnosis: Cognitive-communication Referral Referring Physician: Dr. Lacy Medical History Pertinent Medical History: Arthritis, DM, HTN Reviewed History: Yes Social History Current Living Status: Spouse Speech PLF-Current Status Prior Level of Function Patient lived at home with her where he assists with her daily needs. Subjective Patient was pleasant and cooperative with the the cognitive assessment. Language Eval: Auditory Comprehends Simple Yes/No Ques: Functional Indent/Objects Multiple Adhikari: Functional Ident/Pics in Multiple Adhikari: Functional Follows 1-Step Commands: Functional Follows Complex Directions: Functional Follows General Conversations: Functional Language Eval: Verbal Language Completes Spontaneous Greeting: Functional Produces Auto, Serial Info: Functional Imitates Simple Words/Phrases: Functional Word Finding: Functional Requests Basic Needs: Functional States Basic Personal Info: Functional Expresses Complex Ideas: Functional Objective Cognitive Domain Attention: WNL Memory: Mild Problem Solving: Functional Executive Functions: WNL Visuospatial Skills: Moderate Composite Severity Rating: WNL Clock Drawing Severity Rating: WNL Objective Formal/Standardized Tests [facility] Mental Status ([facility]) Results 27/30, within normal range of function Oral Motor/Speech Production Within Normal Limits Impression Patient is a pleasant 74 y/o female who was admitted to the ARU s/p spinal surgery. Patient was in a lot of pain, however she was able to complete the cognitive assessment. Patient was very talkative with clinician and informative with personal/medical history. The patient was given the SLUMS with a score of 27/30 obtained. Patient does not require further ST services at this time. Speech Patient Assess Expression of Ideas/Wants: Expression (4) Understanding Verbal Content: Understands (4) Brief Interview-Mental Status: Yes Repetition of Three Words: Three (3) Temporal Orientation: Year: Correct (3) Temporal Orientation: Month: Accurate within 5 days(2) Temporal Orientation: Day: Correct (1) Recall : Wear to say "Sock": Yes,after cueing (1) Recall : Color: Yes, after cueing (1) Recall : Bed: Yes,after cueing (1) Memory/Recall Ability: Current season, That he or she is in a hsp/hsp unit Speech-Plan Patient/Family Goals Patient/Family Goals: Patient plans on returning to her home upon hospital discharge. Treatment Plan Speech Therapy Treatment Plan: Discontinue ST Treatment Duration: February 24, 2020 Frequency: 1 time per week Estimated Hrs Per Day: .25 hour per day Rehab Potential: Good Barriers to Learning: None identified Pt/Family Agrees to Plan: Yes Safety Risks/Education Teaching Recipient: Patient Teaching Methods: Discussion Response to Teaching: Verbalize Understanding Education Topics Provided: Safety within her room and communication of wants/needs. Time Speech Therapy Time In: 09:30 Speech Therapy Time Out: 10:00 Total Billed Time: 30 Billed Treatment Time 1, JULI Pringle February 27, 2020 10:13
[2020-02-27] MEDS ORDERED: FAMOTIDINE 20 MG (PEPCID) TABLET PO NR (10:15)
[2020-02-27] MEDS: LOSARTAN 100 MG (COZAAR) TABLET PO SCH (10:29)
[2020-02-27] MEDS ORDERED: LORATADINE (CLARITIN) 10 MG TAB PO NR (10:30)
--- NOTE | 2020-02-27 10:30 | NUR ---
C/O INDIGESTION AND GAS PAIN... ALSO, BILATERAL EAR PAIN. TUMS GIVEN FOR INDIGESTION WITH SOME RELIEF. DR. LONDON TO THE FLOOR AND INFORMED OF ABOVE. NEW ORDERS REC'D. Addendum: 02/27/20 at 1057 by RADHA HEADLEY RN ALSO, BP 105/53. PER DR. VITOR ANSARI FOR SBP LESS THAN 130.
[2020-02-27 10:39] VITALS: BP 105/53
[2020-02-27] MEDS ORDERED: MAGN30OR PO (11:07)
[2020-02-27] MEDS ORDERED: OLOP2.5D12 OU (11:07)
[2020-02-27] MEDS ORDERED: ACET-168 PO (11:07)
--- NOTE | 2020-02-27 11:24 | Occupational Ther Daily Note ---
OT Current Status-Daily Note Subjective Pt alert, sitting in recliner. Pt states pain is present though did not rate. Pt states that head is spinning and cannot see. Physician and nrsg knows. Pt agrees to therapy. Mental Status/Objective Patient Orientation: Person, Place, Time, Situation Attachments: IV ADL-Treatment Pt agrees to shower. Sit to stand CGA, stand to sit min A. CGA for ambulation using FWW. Min A to transfer onto toilet, CGA off of toilet. Manipulated clothing with CGA in standing, using toilet tongs pt able to complete own hygiene. CGA to transfer into/out of shower. Using long handle sponge, grabbars, hand held shower and shower bench pt able to complete shower with min A to cleanse buttocks only. Using AE pt able to don/doff clothing over feet th en assist to hike pants over hips due to back brace. Pt c/o being dizzy and needed to get back to bed. After gathering supplies pt able to brush hair and teeth in bed. Pt takes increased time to complete all tasks due to increased pain and decreased mobility. After therapy, pt lying in bed with call light/phone in reach. All needs met in room. Therapy Code Descriptions/Definitions Functional Bard Measure: 0=Not Assessed/NA 4=Minimal Assistance 1=Total Assistance 5=Supervision or Setup 2=Maximal Assistance 6=Modified Bard 3=Moderate Assistance 7=Complete IndependenceSCALE: Activities may be completed with or without assistive devices. 7-Hkdxmkqjmd-jbqumcq completes the activity by him/herself with no assistance from a helper. 5-Set-up or Clean-up Assistance-helper sets up or cleans up; patient completes activity. [place] assists only prior to or following the activity. 4-Supervision or Touching Assistance-helper provides verbal cues and/or touching/steadying and/or contact guard assistance as patient completes a ctivity. Assistance may be provided throughout the activity or intermittently. 3-Partial/Moderate Assistance-helper does LESS THAN HALF the effort. [place] lifts, holds or supports trunk or limbs, but provides less than half the effort. 2-Substantial/Maximal Assistance-helper does MORE THAN HALF the effort. [place] lifts or holds trunk or limbs and provides more than half the effort. 8-Kqmppivqh-xridkn does ALL the effort. Patient does none of the effort to complete the activity. Or, the assistance of 2 or more helpers is required for the patient to complete the activity. If activity was not attempted, code reason: 7-Patient Refused. 9-Not Applicable-not attempted and the patient did not perform the activity before the current illness, exacerbation or injury. 10-Not Attempted due to Environmental Limitations-(lack of equipment, weather restraints, etc.). 88-Not Attempted due to Medical Conditions or Safety Concerns. Oral Hygiene (QC): 5 Bathing Location: L Arm, R Arm, L Upper Leg, R Upper Leg, L Lower Leg (including foot), R Lower Leg (including foot), Chest, Abdomen, Perineal Area Shower/Bathe Self (QC): 3 Upper Body Dressing (QC): 5 Lower Body Dressing (QC): 3 On/Off Footwear: 2 Toileting Hygiene (QC): 4 Toilet Transfer (QC): 4 OT Usp Goals Workers Compensation Attorney Goals Time Frame: Mar 09, 2020 Eating (QC): 6 Oral Hygiene (QC): 6 Toileting Hygiene (QC): 6 Shower/Bathe Self (QC): 6 Upper Body Dressing (QC): 6 Lower Body Dressing (QC): 6 On/Off Footwear (QC): 6 Additional Goals: 1-Demonstrate ADL Tasks, 2-Verbalize Understanding, 3- ImproveStrength/Tessa 1=Demonstrate adherence to instructed precautions during ADL tasks. 2=Patient will verbalize/demonstrate understanding of assistive devices/modifications for ADL. 3=Patient will improve strength/tolerance for activity to enable patient to perform ADL's. OT Education/Plan Problem List/Assessment Assessment: Decreased Activ Tolerance, Decreased Safety Aware, Decreased UE Strength, Impaired Coordination, Impaired Funct Balance, Impaired Self-Care Skills Discharge Recommendations Plan/Recommendations: Continue POC Treatment Plan/Plan of Care Patient would benefit from OT for education, treatment and training to promote independence in ADL's, mobility, safety and/or upper extremity function for ADL's. Plan of Care: ADL Retraining, Caregiver Training, Concurrent Therapy, Functional Mobility, Group Exercise/Act as Ind, UE Funct Exercise/Act Treatment Duration: Mar 09, 2020 Frequency: At least 5 of 7 days/Wk (IRF) Estimated Hrs Per Day: 1.5 hours per day Agreement: Yes Rehab Potential: Good Time/GCodes Start Time: :00 Stop Time: 11:15 Total Time Billed (hr/min): 75 Billed Treatment Time 1 visit-ADL 5 (75 min) LORENA BEACH February 27, 2020 11:24
[2020-02-27] MEDS: ARTIFICAL TEARS 0.4 ML UNIT DOSE (REFRESH PLUS) OU PRN ×3 (12:26→22:42)
--- NOTE | 2020-02-27 12:40 | NUR ---
I ENTERED THE MED REC USING THE DISCHARGE ORDERS FROM [facility] PT WAS PREVIOUSLY HERE BEFORE GOING TO [facility] AND I HAD COMPLETED THE MED REC ON 02-20-2020. SOME OF HER MEDICATIONS WERE NOT INCLUDED IN THE DISCHARGE FROM [facility] (IT DOESNT SHOW THEY WERE CHANGED OR DISCONTINUED). I SPOKE WITH THE NURSE AT [facility] AND ACCORDING TO THE NOTES NO MEDS WERE CHANGED OR DISCONTINUED (BUSPAR 7.5 & METOPROLOL TART 25MG ARE NOT SHOWN ON THE DISCHARGE) I KEPT THE MEDICATIONS LISTED ABOVE ON THE MED REC SINCE [facility] DID NOT DISCONTINUE HER MEDS SHE WAS ON HERE Addendum: 02/29/20 at 1601 by JUSTEN ARRINGTON CPhT MEDICATIONS THAT HAVE BEEN CHANGED: AMLODIPINE 10MG: DISCHARGE SAYS 1 TAB HS, HOWEVER THE PT HAD BEEN TAKING TAB HS MEDICATIONS THAT HAVE BEEN REMOVED DUE TO THE PT NOT TAKING BEFORE HENDRIX: MAALOX ZOFRAN HYDRALAZINE METRONIDAZOLE
[2020-02-27 13:26] VITALS: BP 124/68
[2020-02-27] MEDS: SIMETHICONE 80 MG (MYLICON) CHEW PO SCH ×3 (14:11→21:27)
--- NOTE | 2020-02-27 14:17 | NUR ---
CONTINUED COMPLAINTS OF EAR PAIN AND DIZZINESS. DR. LONDON NOTIFIED WITH ORDERS TO CONSULT DR. PRAJAPATI.
--- NOTE | 2020-02-27 14:25 | Physical Therapy Daily Note ---
PT Daily Note-Current Subjective Pt R sidelying in bed upon arrival. Pt agrees to Supine Ex in bed. Mental Status Patient Orientation: Person, Place Transfers SCALE: Activities may be completed with or without assistive devices. 3-Vfihvoygse-oezjtlf completes the activity by him/herself with no assistance from a helper. 5-Set-up or Clean-up Assistance-helper sets up or cleans up; patient completes activity. [place] assists only prior to or following the activity. 4-Supervision or Touching Assistance-helper provides verbal cues and/or touching/steadying and/or contact guard assistance as patient completes activity. Assistance may be provided throughout the activity or intermittently. 3-Partial/Moderate Assistance-helper does LESS THAN HALF the effort. [place] lifts, holds or supports trunk or limbs, but provides less than half the effort. 2-Substantial/Maximal Assistance-helper does MORE THAN HALF the effort. [place] lifts or holds trunk or limbs and provides more than half the effort. 1-Axjbtavmm-camgoi does ALL the effort. Patient does none of the effort to complete the activity. Or, the assistance of 2 or more helpers is required for the patient to complete the activity. If activity was not attempted, code reason: 7-Patient Refused. 9-Not Applicable-not attempted and the patient did not perform the activity before the current illness, exacerbation or injury. 10-Not Attempted due to Environmental Limitations-(lack of equipment, weather restraints, etc.). 88-Not Attempted due to Medical Conditions or Safety Concerns. Weight Bearing Right Lower Extremity: Right Full Weight Bearing Left Lower Extremity: Left Full Weight Bearing Exercises Supine Ex: Ankle pumps, Quad Set, Heel Slides, Straight leg raise, Hip abd/add Supine Reps: 20 Treatments Pt completes Supine Ex with RB as needed. Pt has all needs met, call light in hand. Assessment Current Status: Fair Progress Pt's anxiety and pain limit pt. PT Short Term Goals Short Term Goals Time Frame: March 02, 2020 Roll Left & Right: 6 Sit to lyin Lying to sitting on side of be: 6 Sit to stand: 6 Chair/fdw-jm-dlefu transfer: 6 PT Jail Goals Jail Goals PT Jail Goals Time Frame: Mar 09, 2020 Roll Left & Right (QC): 6 Sit to Lying (QC): 6 Lying-Sitting on Side/Bed(QC): 6 Sit to Stand (QC): 6 Chair/Yaw-in-Xminm Xfer(QC): 6 Toilet Transfer (QC): 6 Car Transfer (QC): 6 Does the Patient Walk: Yes Walk 10 feet (QC): 6 Walk 50ft with 2 Turns (QC): 6 Walk 150 ft (QC): 6 Walking 10ft on Uneven Surface: 6 1 Step (curb) (QC): 6 4 Steps (QC): 6 12 Steps (QC): 9 Picking up an Object (QC): 9 Does the Pt use WC or Scooter?: No Wheel 50 feet with 2 turns (QC: 9 Type: N/A Wheel 150 feet: 9 Type: N/A PT Plan Problem List Problem List: Activity Tolerance, Functional Strength, Safety Treatment/Plan Treatment Plan: Continue Plan of Care Treatment Plan: Bed Mobility, Education, Functional Activity Tessa, Functional Strength, Group Therapy, Gait, Safety, Therapeutic Exercise, Transfers Treatment Duration: Mar 09, 2020 Frequency: At least 5 of 7 days/Wk (IRF) Estimated Hrs Per Day: 1.5 hours per day Patient and/or Family Agrees t: Yes Safety Risks/Education Patient Education: Correct Positioning, Safety Issues Teaching Recipient: Patient Teaching Methods: Discussion Response to Teaching: Verbalize Understanding Time/GCodes Time In: 1315 Time Out: 1340 Total Billed Treatment Time: 25 Total Billed Treatment 1, EX x2 (25m) ANDI CHAUDHRY PTA February 27, 2020 14:25
--- NOTE | 2020-02-27 14:42 | NUR ---
DR. PRAJAPATI NOTIFIED OF CONSULT FOR EAR PAIN AND DIZZINESS.
--- NOTE | 2020-02-27 16:07 | NUR ---
"RD ASSESSMENT PMHx: HTN; hypercholesterolemia; GERD; DM PT INTERACTION: Pt was awake and pleasant during nutrition assessment. Pt states current appetite is not good, and has been this way for the last 2 days. Note avg PO intake 42% x2d, per chart review. Pt states following a diabetic diet at home, and has no issues with chewing/swallowing food. Pt states no recent issues with nausea, vomiting, or diarrhea, but has had some issues with constipation. Note last BM was 02/26, and pt currently on bowel regimen of colace BID; senna BID; and miralax BID; per chart review. Pt states no recent wt changes. Note recent 18# wt gain x5mon, per chart review. Pt states current DM management is great. Note unable to determine recent HbA1c, per chart review. ABNORMAL NUTRITION-RELATED LAB VALUES LOW: Ca 8.3; Pro 5.2; alb 2.9 HIGH: Cl 108; BUN 25; glu 146; AST 106; Est. kcal needs: 8497-7699 kcal | 15-18 kcal/kg Est. Pro needs: 73-91 g Pro | 0.8-1.0 g Pro/kg PES STATEMENT: Inadequate oral intake (NI-2.1) related to loss of appetite | constipation as evidenced by pt interview | avg PO intake 42% x2d INTERVENTION: Continue with current diet order of CHO 60g/m 1snack diet. Pt may benefit from nutrition supplementation if PO intake remains low. Encouraged pt to eat when able. Pt had concerns about amount of CHOs on meal trays. Discussed with pt that the meal on her tray equals out to her prescribed 60g of CHO. Pt was relieved by this information. Will continue to follow and reassess as pt needs, intake, and status change. MONITOR/EVALUATE: PO Intake; Plan of Care; Hydration Status; Weight Status; Lab Values Tomasz Hackett, MS, RD, LD"
[2020-02-27 16:41] VITALS: BP 110/73
--- NOTE | 2020-02-27 16:42 | NUR ---
DR. PRAJAPATI HERE.
--- NOTE | 2020-02-27 18:15 | NUR ---
FEELS MUCH BETTER AFTER AN AFTERNOON NAP. WALKED IN THE HALLS AND TOLERATED WELL. LOWER BACK AND LEFT FLANK DRESSINGS CHANGED. INCISIONS ARE WELL APPROXIMATED. BACK INCISION HAS CELI. STERI STRIPS OVER LEFT FLANK INCISION. BOTH INCISIONS COVERED WITH GAUZE AND OPSITE D/T TAPE ALLERGY.
--- NOTE | 2020-02-27 18:27 | CONSULTATION REPORT ---
DATE OF SERVICE: ENT CONSULTATION The patient is in rehab in [place]. ROOM: 232. REFERRING PHYSICIAN: Rosaura Lacy DO REASON FOR CONSULTATION: Ear pain. HISTORY OF PRESENT ILLNESS: The patient is a 74-year-old female who presents today for evaluation of her ears. She is in the hospital for acute rehabilitation after back surgery. This morning, she awoke with severe ear pain. It was actually global in nature. Her entire head felt as always going to burst. She had some visual symptoms as well. She stood up and felt as though she was going to followup. She was then able to lay back down in bed this afternoon. She has been able to take a nap and when she woke from a nap, her pain is significantly better. She has no prior history of headaches or migraines, but there is a strong family history of migraines. Currently, she has heat on the back of her neck, which she reports is helping. PHYSICAL EXAMINATION: GENERAL: She is in no acute distress. She was lying quietly in bed. EYES: Vision was grossly intact. Extraocular muscles were intact. There is no spontaneous nystagmus seen. EARS: Canals were normal. Minimal cerumen present. Tympanic membranes were mildly thickened. There was no evidence of an infection or fluid seen. NOSE: Clear. The oral cavity was clear without sign of infection. PHARYNX: no mass or ulceration was seen. NECK: she had a normal range of motion of her neck. She did complain of pain in the posterior cervical muscles. IMPRESSION: 1. Acute migraine -- resolved. 2. Ear pain -- resolved. RECOMMENDATIONS: Findings were discussed with the patient overall. She basically her migraine, warm moist heat to the posterior neck was recommended as well as gentle range of motion exercises for her neck. At this point, there is no evidence of acute ear infection. She is doing markedly better than she was this morning. We will follow up on an as needed basis. Thank you for the consultation. Job ID: [id number] DocumentID: [id number] Dictated Date: 02/27/2020 17:05:53 Asp Net C Developer Date: 02/27/2020 18:25:11 Dictated By: DEBBY PRAJAPATI MD
[2020-02-27] MEDS: FAMOTIDINE 20 MG (PEPCID) TABLET PO SCH (21:27)
[2020-02-27] MEDS: LORATADINE (CLARITIN) 10 MG TAB PO SCH (21:28)
[2020-02-27] MEDS: SIMvastatin 10 MG (ZOCOR) TAB PO SCH (21:28)
[2020-02-27] MEDS: amLODIPine 10 MG (NORVASC) TAB PO SCH (21:28)
[2020-02-27] MEDS: MELATONIN 3 MG TABLET PO PRN (21:28)
[2020-02-27] MEDS: ANTACID SUSP 30 ML UDC (MYLANTA) PO PRN (23:50)
[2020-02-28] MEDS: GABAPENTIN 300 MG (NEURONTIN) CAP PO SCH ×4 (00:27→18:18)
[2020-02-28] MEDS: ALPRAZolam 0.25 MG (XANAX) TAB PO PRN ×2 (02:44→21:29)
[2020-02-28 06:00] VITALS: BP 119/75
--- NOTE | 2020-02-28 06:10 | PM&R Progress Note ---
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 Calvo, assessed it to be a migraine and she no longer h as ear pain Pt does become more and more somatic as the days go by Labs are okay, creatinine 1.4, Hgb 10.9 Eating well Checked meds and labs Conferred with RN Reviewed therapy notes Review of Systems General: Fatigue Musculoskeletal: back pain Objective Exam Vital Signs Vital Signs Date Time Temp Pulse Resp B/P (MAP) Pulse Ox O2 Delivery O2 Flow Rate FiO2 02/28/20 18:02 37.5 89 16 112/70 (84) 97 Room Air 02/26/20 06:05 2.00 Capillary Refill : Less Than 3 Seconds General Appearance: No Apparent Distress, WD/WN, Chronically ill HEENT: PERRL/EOMI, Normal ENT Inspection, Pharynx Normal Neck: Full Range of Motion, Normal Inspection, Non Tender, Supple, Carotid Bruit Respiratory: Chest Non Tender, Lungs Clear, Normal Breath Sounds, No Accessory Muscle Use, No Respiratory Distress Cardiovascular: Regular Rate, Rhythm, No Edema, No Gallop, No JVD, No Murmur, Normal Peripheral Pulses Gastrointestinal: Normal Bowel Sounds, No Organomegaly, No Pulsatile Mass, Non Tender, Soft Back: Normal Inspection, Decreased Range of Motion, Muscle Spasm, Vertebral Tenderness Extremity: Normal Capillary Refill, Normal Inspection, Normal Range of Motion, Non Tender, No Calf Tenderness, No Pedal Edema Neurologic/Psychiatric: Alert, Oriented x3, No Motor/Sensory Deficits, Normal 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 FIM Transfers Therapy Code Descriptions/Definitions Functional [place] Measure: 0=Not Assessed/NA 4=Minimal Assistance 1=Total Assistance 5=Supervision or Setup 2=Maximal Assistance 6=Modified [place] 3=Moderate Assistance 7=Complete IndependenceSCALE: Activities may be completed with or without assistive devices. 3-Jcjsgwktzc-eqsnumm completes the activity by him/herself with no assistance from a helper. 5-Set-up or Clean-up Assistance-helper sets up or cleans up; patient completes activity. [place] assists only prior to or following the activity. 4-Supervision or Touching Assistance-helper provides verbal cues and/or touching/steadying and/or contact guard assistance as patient completes activity. Assistance may be provided throughout the activity or intermittently. 3-Partial/Moderate Assistance-helper does LESS THAN HALF the effort. [place] lifts, holds or supports trunk or limbs, but provides less than half the effort. 2-Substantial/Maximal Assistance-helper does MORE THAN HALF the effort. [place] lifts or holds trunk or limbs and provides more than half the effort. 2-Wmbqoqtse-blncwe does ALL the effort. Patient does none of the effort to complete the activity. Or, the assistance of 2 or more helpers is required for the patient to complete the activity. If activity was not attempted, code reason: 7-Patient Refused. 9-Not Applicable-not attempted and the patient did not perform the activity before the current illness, exacerbation or injury. 10-Not Attempted due to Environmental Limitations-(lack of equipment, weather restraints, etc.). 88-Not Attempted due to Medical Conditions or Safety Concerns. Roll Left to Right (QC): 5 Sit to Lying (QC): 5 Sit to Stand (QC): 5 Chair/Erx-gi-Skmev Xfer(QC): 4 Car Transfer (QC): 7 Gait Training Does the Patient Walk?: Yes Distance: 200' Walk 10 feet (QC): 5 Walk 50 ft with 2 Turns(QC): 5 Walk 150 ft (QC): 5 Walking 10ft/uneven surface-QC: 7 Gait Persons Needed: 1 Gait Assistive Device: FWW Wheelchair Training Does the Pt Use a Wheelchair?: No Wheel 50 ft with 2 turns (QC): 9 Wheel 150 ft (QC): 9 Type of Wheelchair: N/A Stair Training 1 Step (curb) (QC): 7 4 Steps (QC): 7 12 Steps (QC): 7 Balance Picking up an Object (QC): 9 (Pt will use global security architect to adhere to lumbar precautions) ADL-Treatment Eating (QC): 6 Oral Hygiene (QC): 5 Bathing Location: L Arm, R Arm, L Upper Leg, R Upper Leg, L Lower Leg (inclu ding foot), R Lower Leg (including foot), Chest, Abdomen, Perineal Area Shower/Bathe Self (QC): 3 Upper Body Dressing (QC): 5 Lower Body Dressing (QC): 3 On/Off Footwear (QC): 2 Toileting Hygiene (QC): 4 Toilet Transfer (QC): 4 Assessment/Plan Assessment and Plan Assess & Plan/Chief Complaint Assessment: Lumbar spine surgery urgently performed POD # 7 Dr Dana TOLBERT [place] DM HTN O2 dependent currently Emotional problems Psychosis with narcotics and benzos Post op constipation still a bit constipated but improved Anemia Ears popping- [place] Dr Calvo consultation Plan: BM regimen Pain control but minimize pain meds Kpad IRF protocol Supportive environment for fragile mental health (1) Lumbar stenosis (2) Hx of psychosis (3) History of opioid abuse (4) Diabetes mellitus (5) GERD without esophagitis (6) Malignant hypertension Status: Acute (7) Hypertension Status: Acute (8) Debility Status: Acute (9) Anxiety about health Status: Chronic HUANG LONDON DO February 28, 2020 06:09
[2020-02-28] MEDS: inSUlin ASPART (NovoLOG) 1 UNIT/0.01 ML (CHARGE PER UNIT) SC SCH ×4 (06:58→20:08)
[2020-02-28] MEDS: SENNA W/DOCUSATE (SENOKOT S) TABLET PO SCH ×2 (08:21→20:25)
[2020-02-28] MEDS: SIMETHICONE 80 MG (MYLICON) CHEW PO SCH ×4 (08:22→20:23)
[2020-02-28] MEDS: DOCUSATE SODIUM 100 MG (COLACE) CAP PO SCH ×2 (08:23→20:25)
[2020-02-28] MEDS: ETODOLAC 300 MG (LODINE) CAP PO SCH ×2 (08:23→20:23)
[2020-02-28] MEDS: LOSARTAN 100 MG (COZAAR) TABLET PO SCH ×2 (08:24→08:26)
[2020-02-28] MEDS: LORATADINE (CLARITIN) 10 MG TAB PO SCH ×2 (08:25→20:23)
[2020-02-28] MEDS: polyethylene glycoL POWDER 17 GM (MIRALAX) PACK PO SCH ×2 (08:25→21:25)
[2020-02-28] MEDS: metroNIDAZOLE 500 MG (FLAGYL) TAB PO SCH ×3 (08:25→20:23)
[2020-02-28] MEDS: FAMOTIDINE 20 MG (PEPCID) TABLET PO SCH ×2 (08:25→20:23)
[2020-02-28] MEDS: DULoxetine 30 MG (CYMBALTA) CAP PO SCH (08:25)
[2020-02-28] MEDS: NAPHA/PHEN (NAPHCON-A, OPCON-A) OP SOLN 15 ML BTL OU PRN (08:29)
--- NOTE | 2020-02-28 08:48 | Consultation ---
History of Present Illness History of Present Illness Patient Consulted On(akhil/time) 02/28/20 08:48 Date Seen by Provider: February 28, 2020 Time Seen by Provider: 08:48 Reason for Visit: STATUS POST LUMBAR SPINE SURGERY History of Present Illness PT IS A 74 Y/O FEMALE WHO IS WELL KNOWN TO ME FROM REPEAT HOSPITALIZATION WELL FROM CLINIC. ADRIANA WAS ADMITTED TO INPATIENT REHAB AFTER ADMISSION TO THE HOSPITAL FOR UNCONTROLLED BACK PAIN, AND THEN TRANSFERRED TO [facility] FOR SURGICAL INTERVENTION ON HER SPINE THEN DISCHARGED FROM [facility] INTO THE INPATIENT REHAB UNIT AT [facility] FOR STRENGTHENING POST-OPERATIVELY. ADRIANA STATES THAT HER BACK PAIN IS SIGNIFICANTLY IMPROVED, HOWEVER SHE STATES THAT SHE HAS GI UPSET. Allergies and Home Medications Allergies Coded Allergies: clonidine (Verified Allergy, Unknown, NAUSEA, 03/14/19) Penicillins (Unverified Adverse Reaction, Intermediate, 03/14/19) Sulfa (Sulfonamide Antibiotics) (Unverified Adverse Reaction, Intermediate, 03/14/19) Uncoded Allergies: ivp dye (Adverse Reaction, Intermediate, 09/15/13) Home Medications Acetaminophen 500 Mg Tablet, 500 MG PO TID PRN for PAIN-MILD (1-4), (Reported) Amlodipine Besylate 10 Mg Tablet, 5 MG PO HS, (Reported) TAKES OF A 10MG TAB Buspirone HCl 7.5 Mg Tablet, 7.5 MG PO TID, (Reported) Diclofenac Sodium 75 Mg Tablet.dr, 75 MG PO Q12H, (Reported) Duloxetine HCl 30 Mg Capsule.dr, 30 MG PO DAILY, (Reported) Famotidine 20 Mg Tablet, 20 MG PO DAILY Prescribed by: HUANG LONDON on 03/04/202201 Gabapentin 300 Mg Capsule, 300 MG PO Q6H, (Reported) Insulin Aspart 300 Units/3 Ml Solution, SQ TIDAC, (Reported) 150-200 = 3 UNITS 201-250 = 5 UNITS 251-300 = 7 UNITS 301-350 = 9 UNITS 351- 400 =11 UNITS Lactulose 10 Gm/15 Ml Solution, 15 ML PO BID, (Reported) Loratadine 10 Mg Tablet, 10 MG PO BID Prescribed by: HUANG LONDON on 03/04/202201 Losartan Potassium 100 Mg Tablet, 100 MG PO DAILY, (Reported) Metoprolol Tartrate 25 Mg Tablet, 12.5 MG PO BID Prescribed by: HUANG LONDON on 03/04/202201 Olopatadine HCl 2.5 Ml Drops, 1 DROP OU PRN PRN for ALLERGY SYMPTOMS, (Reported) Sennosides/Docusate Sodium 1 Each Tablet, 1 EA PO BID Prescribed by: HUANG LONDON on 03/04/202201 Simvastatin 10 Mg Tablet, 10 MG PO HS, (Reported) Sucralfate 1 Gm Tablet, 1 GM PO TIDAC Prescribed by: HUANG LONDON on 03/04/202201 Patient Home Medication List Home Medication List Reviewed: Yes Past Oygmpnd-Nmkfcw-Dqbxxu Hx Past Med/Social Hx: Reviewed Nursing Past Med/Soc Hx, Reviewed and Corrections made Patient Social History Alcohol Use: Denies Use Recreational Drug Use: No Smoking Status: Never a Smoker 2nd Hand Smoke Exposure: No Recent Foreign Travel: No Contact w/Someone Who Travel: No Recent Infectious Disease Expo: No Recent Hopitalizations: No Immunizations Up To Date Tetanus Booster (TDap): More than 5yrs Date of Pneumonia Vaccine: May 31, 2018 Date of Influenza Vaccine: Aug 25, 2013 Seasonal Allergies Seasonal Allergies: No Past Medical History Surgeries: Yes (BACK SX. 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 Sexually Transmitted Disease: No HIV/AIDS: No Genitourinary: No Gastrointestinal: Yes Gastroesophageal Reflux Musculoskeletal: Yes (severe chronic back pain with right sided radicular symptoms) Degenerate Disk Disease, Arthritis, Chronic Back Pain Endocrine: Yes Diabetes, Insulin dep HEENT: No Loss of Vision: Denies Hearing Impairment: Denies Cancer: No Psychosocial: Yes Anxiety, Depression Integumentary: No Blood Disorders: No Adverse Reaction/Blood Tranf: No Family Medical History Reviewed Nursing Family Hx Cancer 03 FATHER (RADICAL NECK CANCER ) Family history: Cardiovascular disease 09 BROTHER Stroke 09 BROTHER, Onset:58 ( FROM STROKE) Heart Disease, Cancer, Stroke Review of Systems Review of Systems General: Fatigue HEENT: No Head Aches, No Dysphasia Pulmonary: Dyspnea Cardiovascular: No: Palpitations Gastrointestinal: No: Nausea, Abdominal Pain Genitourinary: No Dysuria Musculoskeletal: back pain Neurological: Weakness, Numbness All Other Systems Reviewed All Other Systems Reviewed: Yes Physical Exam Vital Signs Vital Signs - First Documented 02/24/20 02/24/20 11:20 12:04 Temp 36.8 Pulse 100 Resp 20 B/P (MAP) 110/70 Pulse Ox 94 O2 Delivery Nasal Cannula O2 Flow Rate 2.00 Capillary Refill : Less Than 3 Seconds Height, Weight, BMI Height: 5'7.00" Weight: 180lbs. 0.8oz. 81.391052an; 31.38 BMI Method:Stated General Appearance: No Apparent Distress, WD/WN Eyes: Bilateral Eye Normal Inspection, Bilateral Eye PERRL, Bilateral Eye EOMI HEENT: PERRL/EOMI, TMs Normal, Normal ENT Inspection, Pharynx Normal Neck: Full Range of Motion, Non Tender, Supple Respiratory: Chest Non Tender, Lungs Clear, Normal Breath Sounds, No Accessory Muscle Use, No Respiratory Distress Cardiovascular: Regular Rate, Rhythm, Normal Peripheral Pulses Gastrointestinal: Normal Bowel Sounds, No Organomegaly, No Pulsatile Mass, Non Tender, Soft Rectal: Deferred Back: Other (SURGICAL DRESSING IN PLACE) Extremity: Normal Capillary Refill, Normal Inspection, Non Tender, No Calf Tenderness, No Pedal Edema Neurologic/Psychiatric: Alert, Oriented x3, No Motor/Sensory Deficits, Normal Mood/Affect Skin: Normal Color, Warm/Dry Lymphatic: No Adenopathy Assessment/Plan Assessment/Plan Admission Dx LUMBAR SPINAL STENOSIS FORAMINAL STENOSIS STATUS POST LUMBAR SPINE SURGERY HYPERTENSION DIABETES MELLITUS ANXIETY ANEMIA LUMBAR SPINAL STENOSIS WITH NEURAL FORAMINAL STENOSIS AND STATUS POST LUMBAR SPINE SURGERY - IMPROVED BACK PAIN - CONTINUE WITH THERAPY - TYLENOL FOR PAIN CONTROL HYPERTENSION - RESTARTED HOME REGIMEN, MONITOR PRESSURE CLOSELY, ADJUST MEDICATIONS NEEDED. DIABETES MELLITUS - RESTART HOME REGIMEN - MONITOR FSBS SERIALLY ANXIETY RESUME HOME REGIMEN ANEMIA - MONITOR LABS Admission Status: Inpatient Order (span 2 midnights) Problems: (1) Lumbar stenosis (2) Hx of psychosis (3) History of opioid abuse (4) Diabetes mellitus (5) GERD without esophagitis (6) Malignant hypertension (7) Hypertension (8) Debility (9) Anxiety about health Clinical Quality Measures DVT/VTE Risk/Contraindication: Risk Factor Score Per Nursin RFS Level Per Nursing on Admit: 4+=Very High DEBORAH MORALES MD February 28, 2020 08:48
[2020-02-28 09:56] LABS: HEMOGLOBIN 10.5 G/DL (11.5-16.0); MEAN PLATELET VOLUME 9.7 FL (7.4-10.4); RED CELL DISTRIBUTION WIDTH 14.7 % (10.0-14.5)
[2020-02-28 10:17] LABS: ALBUMIN 3.3 GM/DL (3.2-4.5); BILIRUBIN,TOTAL 0.3 MG/DL (0.1-1.0); CALCIUM 8.9 MG/DL (8.5-10.1); CREATININE SERUM 1.42 MG/DL (0.60-1.30); POTASSIUM 4.4 MMOL/L (3.6-5.0); TOTAL PROTEIN 6.3 GM/DL (6.4-8.2)
--- NOTE | 2020-02-28 10:18 | Physical Therapy Daily Note ---
PT Daily Note-Current Subjective Pt. in bed . Agrees to PT OT co treatment. Pt. moans with passive movement and rolling initially . Pt. also initially did not want to get up in recliner but later agreed and said she was comfortable up Pain Numeric Pain Scale: 5-Moderate Pain Location: Left Location Body Site: Foot Pain Description: Stabbing Mental Status Patient Orientation: Person, Mumbles (monotone) Attachments: SCD's, Other-See Comments (helmet) needs max assist to don helmet Transfers SCALE: Activities may be completed with or without assistive devices. 2-Ngprjsdfkd-xbjfpeu completes the activity by him/herself with no assistance from a helper. 5-Set-up or Clean-up Assistance-helper sets up or cleans up; patient completes activity. [place] assists only prior to or following the activity. 4-Supervision or Touching Assistance-helper provides verbal cues and/or touching/steadying and/or contact guard assistance as patient completes activity. Assistance may be provided throughout the activity or intermittently. 3-Partial/Moderate Assistance-helper does LESS THAN HALF the effort. [place] lifts, holds or supports trunk or limbs, but provides less than half the effort. 2-Substantial/Maximal Assistance-helper does MORE THAN HALF the effort. [place] lifts or holds trunk or limbs and provides more than half the effort. 3-Lcdfdrnpn-ekaotn does ALL the effort. Patient does none of the effort to complete the activity. Or, the assistance of 2 or more helpers is required for the patient to complete the activity. If activity was not attempted, code reason: 7-Patient Refused. 9-Not Applicable-not attempted and the patient did not perform the activity before the current illness, exacerbation or injury. 10-Not Attempted due to Environmental Limitations-(lack of equipment, weather restraints, etc.). 88-Not Attempted due to Medical Conditions or Safety Concerns. Roll Left & Right (QC): 3 (max assist to right , mod assist to left with instruction) Sit to Lying (QC): 1 Lying to Sitting/Side of Bed(Q: 1 Sit to Stand (QC): 1 (2 max) Chair/Vhs-ep-Zxdnt Xfer(QC): 1 (2 max) Toilet Transfer (QC): 1 (max to get on bed deluna) sit edge of bed required off on min to mod assist 1-2 for balance, sit to stand x 3 trials with pt. wt bearing RLE well but uncoordinated, needed bracing and stability at LLE and protection at LUE. PT OT coordinating for sitting balance and sit to stand as well as stand pivot TRF to lift recline chair which was prepared with Antoine lift sling for later TRF back to bed. SPT required max assist as pt. needed assist to stabilize LLE allow for wt shift to take small awkward step with RLE toward chair, this was max assist. In recliner pt. was repositioned multiple times by PT OT coordination to optimize pts. comfort as well as position for good alignment. LUE elevated on pillow, LEs elevated as well with small neck roll for comfort with helmet on Weight Bearing Right Lower Extremity: Right Full Weight Bearing Left Lower Extremity: Left Full Weight Bearing Exercises Supine Ex: Ankle pumps (assisted left), Quad Set, Rolling (assisted), Heel Slides (assisted L), Straight leg raise (assisted bilat), Hip abd/add (assisted L) Supine Reps: 10 (x2) Seated Therapy Exercises: Ankle pumps (HC stretch L with 12 beat clonus noted), Long arc quads (ssisted left), Hip flexion (right only), Hip abd/add (ssisted left) Treatments pt. was bathed in bed with co Rx OT with coordination of rolling and positioning. Pt. washed face indep with prepared cloth, see OT note Assessment Current Status: Poor Progress poor tolerance for Rx, weakness and pain c/o , dependent for all PT Short Term Goals Short Term Goals Time Frame: March 02, 2020 Roll Left & Right: 6 Sit to lyin Lying to sitting on side of be: 6 Sit to stand: 6 Chair/vaz-pb-jnaaj transfer: 6 PT [facility]ci Goals Grain Mixer Goals PT Grain Mixer Goals Time Frame: Mar 09, 2020 Roll Left & Right (QC): 6 Sit to Lying (QC): 6 Lying-Sitting on Side/Bed(QC): 6 Sit to Stand (QC): 6 Chair/Fsg-ya-Wsmqn Xfer(QC): 6 Toilet Transfer (QC): 6 Car Transfer (QC): 6 Does the Patient Walk: Yes Walk 10 feet (QC): 6 Walk 50ft with 2 Turns (QC): 6 Walk 150 ft (QC): 6 Walking 10ft on Uneven Surface: 6 1 Step (curb) (QC): 6 4 Steps (QC): 6 12 Steps (QC): 9 Picking up an Object (QC): 9 Does the Pt use WC or Scooter?: No Wheel 50 feet with 2 turns (QC: 9 Type: N/A Wheel 150 feet: 9 Type: N/A PT Plan Treatment/Plan Treatment Plan: Continue Plan of Care Treatment Plan: Bed Mobility, Education, Functional Activity Tessa, Functional Strength, Group Therapy, Gait, Safety, Therapeutic Exercise, Transfers Treatment Duration: Mar 09, 2020 Frequency: At least 5 of 7 days/Wk (IRF) Estimated Hrs Per Day: 1.5 hours per day Patient and/or Family Agrees t: Yes Safety Risks/Education Patient Education: Transfer Techniques, Correct Positioning, Disease Process, Safety Issues Teaching Recipient: Patient Teaching Methods: Discussion Response to Teaching: Reinforcement Needed Time/GCodes Time In: 900 Time Out: 1000 Total Billed Treatment Time: 60 Total Billed Treatment 1,EX20m,FA40m 60 m co Rx OT PT LAUREN VIGIL CHECK CASHIER February 28, 2020 10:18
--- NOTE | 2020-02-28 10:59 | Physical Therapy Daily Note ---
PT Daily Note-Current Subjective Pt is in the chair on arrival, and agreeable to therapy. Pt states that she has been up and walking to the bathroom 2x this morning. Mental Status Patient Orientation: Person, Place, Time, Situation Transfers SCALE: Activities may be completed with or without assistive devices. 9-Jctrvmisbm-ddwlcfh completes the activity by him/herself with no assistance from a helper. 5-Set-up or Clean-up Assistance-helper sets up or cleans up; patient completes activity. [place] assists only prior to or following the activity. 4-Supervision or Touching Assistance-helper provides verbal cues and/or touching/steadying and/or contact guard assistance as patient completes activity. Assistance may be provided throughout the activity or intermittently. 3-Partial/Moderate Assistance-helper does LESS THAN HALF the effort. [place] lifts, holds or supports trunk or limbs, but provides less than half the effort. 2-Substantial/Maximal Assistance-helper does MORE THAN HALF the effort. [place] lifts or holds trunk or limbs and provides more than half the effort. 7-Nwiqseayv-qspkhf does ALL the effort. Patient does none of the effort to complete the activity. Or, the assistance of 2 or more helpers is required for the patient to complete the activity. If activity was not attempted, code reason: 7-Patient Refused. 9-Not Applicable-not attempted and the patient did not perform the activity befo re the current illness, exacerbation or injury. 10-Not Attempted due to Environmental Limitations-(lack of equipment, weather re straints, etc.). 88-Not Attempted due to Medical Conditions or Safety Concerns. Roll Left & Right (QC): 5 Sit to Lying (QC): 5 Lying to Sitting/Side of Bed(Q: 5 Sit to Stand (QC): 5 Chair/Pms-yj-Yxlyw Xfer(QC): 5 Weight Bearing Right Lower Extremity: Right Full Weight Bearing Left Lower Extremity: Left Full Weight Bearing Gait Training Does the Patient Walk?: Yes Distance: 225ft x2 Walk 10 feet (QC): 5 Walk 50 ft with 2 Turns(QC): 5 Walk 150 ft (QC): 5 Gait Persons Needed: 1 Gait Assistive Device: FWW Wheelchair Training Does the Pt Use a Wheelchair?: No Exercises Supine Ex: LE Protocol Supine Reps: [address] Ex=Flex, Abd, Ext, Marching Standing Reps: 10 NuStep Minutes: 12 NuStep Workload: 5 Assessment Current Status: Excellent Progress Pt is ambulating with the FWW with the only limitation stemming from (R) calf soreness after ambulating 80-100ft. Pt is able to stand and rest and the calf soreness subsides in under a minute. PT Short Term Goals Short Term Goals Time Frame: March 02, 2020 Roll Left & Right: 6 Sit to lyin Lying to sitting on side of be: 6 Sit to stand: 6 Chair/gde-bq-jqqzm transfer: 6 PT Long-Term Goals Steel Analyst Goals PT Long-Term Goals Time Frame: Mar 09, 2020 Roll Left & Right (QC): 6 Sit to Lying (QC): 6 Lying-Sitting on Side/Bed(QC): 6 Sit to Stand (QC): 6 Chair/Ovg-pg-Hrluq Xfer(QC): 6 Toilet Transfer (QC): 6 Car Transfer (QC): 6 Does the Patient Walk: Yes Walk 10 feet (QC): 6 Walk 50ft with 2 Turns (QC): 6 Walk 150 ft (QC): 6 Walking 10ft on Uneven Surface: 6 1 Step (curb) (QC): 6 4 Steps (QC): 6 12 Steps (QC): 9 Picking up an Object (QC): 9 Does the Pt use WC or Scooter?: No Wheel 50 feet with 2 turns (QC: 9 Type: N/A Wheel 150 feet: 9 Type: N/A PT Plan Treatment/Plan Treatment Plan: Continue Plan of Care Treatment Plan: Bed Mobility, Education, Functional Activity Tessa, Functional Strength, Group Therapy, Gait, Safety, Therapeutic Exercise, Transfers Treatment Duration: Mar 09, 2020 Frequency: At least 5 of 7 days/Wk (IRF) Estimated Hrs Per Day: 1.5 hours per day Patient and/or Family Agrees t: Yes Time/GCodes Time In: 0950 Time Out: 1050 Total Billed Treatment Time: 60 Total Billed Treatment 1, ex x2 (30), gt x2 (30) CHEO LIMA PT February 28, 2020 10:59
[2020-02-28] MEDS: DICLOFENAC 1% GEL 100 GM (VOLTAREN) TUBE TOP SCH ×2 (11:08→20:08)
[2020-02-28] MEDS: ANTACID SUSP 30 ML UDC (MYLANTA) PO PRN ×2 (12:08→21:30)
--- NOTE | 2020-02-28 12:15 | NUR ---
Pt c/o pressure upper chest to back. She states "It hurt like it did before, it resendez". Pt encouraged to sit up in bed and not lay back after eating or drinking. PRN Mylanta given.
--- NOTE | 2020-02-28 13:13 | Occupational Ther Daily Note ---
OT Current Status-Daily Note Subjective Pt alert, lying in bed. Pt agrees to therapy. Pt stated that her head and vision is better today, that Dr. Zambrano said that she was having a migraine yesterday. Pt c/o pain in lower back and tailbone, reported to nrsg. Applied Alevyan to coccyx area, skin blancheable. Pt has increased pain with sitting up and sitting back, decreases with standing. Mental Status/Objective Patient Orientation: Person, Place, Time, Situation Attachments: IV ADL-Treatment Pt completed sponge bath in bed after set up. CGA for supine to EOB. Donned/doffed shirt by self after set up. Assist to don/doff back brace. Pt transferred to chair, SBA using FWW. Donned underwear with SBA using AE. Doffed socks with dressing stick and donned with sock aide. Assist to don SAMIA hose. Pt able to don first pant leg using bundle tier and labeler then due to pain assist given to thread 2nd leg into pants and hike over hips. Due to pain pt sat in chair with bedside table to complete oral care after assistance to gather supplies. Pt then ambulated around ARU 2x's to decrease pain in B LE and back. Pt requested to lay in bed, min A. After session, pt lying in bed with call light/phone in reach. All needs met in room. Therapy Code Descriptions/Definitions Functional [place] Measure: 0=Not Assessed/NA 4=Minimal Assistance 1=Total Assistance 5=Supervision or Setup 2=Maximal Assistance 6=Modified [place] 3=Moderate Assistance 7=Complete IndependenceSCALE: Activities may be completed with or without assistive devices. 9-Ylzpdduwun-jqdmgzt completes the activity by him/herself with no assistance from a helper. 5-Set-up or Clean-up Assistance-helper sets up or cleans up; patient completes activity. [place] assists only prior to or following the activity. 4-Supervision or Touching Assistance-helper provides verbal cues and/or touching/steadying and/or contact guard assistance as patient completes activity. Assistance may be provided throughout the activity or intermittently. 3-Partial/Moderate Assistance-helper does LESS THAN HALF the effort. [place] lifts, holds or supports trunk or limbs, but provides less than half the effort. 2-Substantial/Maximal Assistance-helper does MORE THAN HALF the effort. [place] lifts or holds trunk or limbs and provides more than half the effort. 9-Ihaqkfked-dzaxsz does ALL the effort. Patient does none of the effort to complete the activity. Or, the assistance of 2 or more helpers is required for the patient to complete the activity. If activity was not attempted, code reason: 7-Patient Refused. 9-Not Applicable-not attempted and the patient did not perform the activity before the current illness, exacerbation or injury. 10-Not Attempted due to Environmental Limitations-(lack of equipment, weather restraints, etc.). 88-Not Attempted due to Medical Conditions or Safety Concerns. Oral Hygiene (QC): 5 Upper Body Dressing (QC): 5 Lower Body Dressing (QC): 3 On/Off Footwear: 3 OT Marble Installation Helper Goals [place] Installation Helper Goals Time Frame: Mar 09, 2020 Eating (QC): 6 Oral Hygiene (QC): 6 Toileting Hygiene (QC): 6 Shower/Bathe Self (QC): 6 Upper Body Dressing (QC): 6 Lower Body Dressing (QC): 6 On/Off Footwear (QC): 6 Additional Goals: 1-Demonstrate ADL Tasks, 2-Verbalize Understanding, 3- ImproveStrength/Tessa 1=Demonstrate adherence to instructed precautions during ADL tasks. 2=Patient will verbalize/demonstrate understanding of assistive devices/modifications for ADL. 3=Patient will improve strength/tolerance for activity to enable patient to perform ADL's. OT Education/Plan Problem List/Assessment Assessment: Decreased Activ Tolerance, Impaired Coordination, Impaired Self- Care Skills Discharge Recommendations Plan/Recommendations: Continue POC Treatment Plan/Plan of Care Patient would benefit from OT for education, treatment and training to promote independence in ADL's, mobility, safety and/or upper extremity function for ADL's. Plan of Care: ADL Retraining, Caregiver Training, Concurrent Therapy, Functional Mobility, Group Exercise/Act as Ind, UE Funct Exercise/Act Treatment Duration: Mar 09, 2020 Frequency: At least 5 of 7 days/Wk (IRF) Estimated Hrs Per Day: 1.5 hours per day Agreement: Yes Rehab Potential: Good Time/GCodes Start Time: 07:30 Stop Time: 09:00 Total Time Billed (hr/min): 90 Billed Treatment Time 1 visit-ADL 5 (75 min) EX 1 (15 min) LOREAN [place]ACH February 28, 2020 13:13
--- NOTE | 2020-02-28 13:46 | Physical Therapy Daily Note ---
PT Daily Note-Current Subjective Central lumbar pain reported during all transfers, specifically with sit to stand. Pain Numeric Pain Scale: 6 Location: Lower Location Body Site: Back Pain Description: Ache, Pressure Mental Status Patient Orientation: Person, Place, Time, Situation Transfers SCALE: Activities may be completed with or without assistive devices. 8-Bxdmdmkioh-mwqesnm completes the activity by him/herself with no assistance from a helper. 5-Set-up or Clean-up Assistance-helper sets up or cleans up; patient completes activity. [place] assists only prior to or following the activity. 4-Supervision or Touching Assistance-helper provides verbal cues and/or touching/steadying and/or contact guard assistance as patient completes activity. Assistance may be provided throughout the activity or intermittently. 3-Partial/Moderate Assistance-helper does LESS THAN HALF the effort. [place] lifts, holds or supports trunk or limbs, but provides less than half the effort. 2-Substantial/Maximal Assistance-helper does MORE THAN HALF the effort. [place] lifts or holds trunk or limbs and provides more than half the effort. 6-Fainujugk-gqejed does ALL the effort. Patient does none of the effort to complete the activity. Or, the assistance of 2 or more helpers is required for the patient to complete the activity. If activity was not attempted, code reason: 7-Patient Refused. 9-Not Applicable-not attempted and the patient did not perform the activity before the current illness, exacerbation or injury. 10-Not Attempted due to Environmental Limitations-(lack of equipment, weather restraints, etc.). 88-Not Attempted due to Medical Conditions or Safety Concerns. Roll Left & Right (QC): 5 Sit to Lying (QC): 5 Lying to Sitting/Side of Bed(Q: 5 Sit to Stand (QC): 5 Chair/Maf-my-Txbdk Xfer(QC): 5 Weight Bearing Right Lower Extremity: Right Full Weight Bearing Left Lower Extremity: Left Full Weight Bearing Gait Training Does the Patient Walk?: Yes Distance: 250ft Walk 10 feet (QC): 5 Walk 50 ft with 2 Turns(QC): 5 Walk 150 ft (QC): 5 Gait Persons Needed: 1 Gait Assistive Device: FWW Wheelchair Training Does the Pt Use a Wheelchair?: No Exercises Supine Ex: LE Protocol Supine Reps: [address] Ex=Flex, Abd, Ext Standing Reps: 20 Assessment Current Status: Good Progress Good stability throughout treatment with only one stoppage due to lumbar pain this afternoon. PT Short Term Goals Short Term Goals Time Frame: March 02, 2020 Roll Left & Right: 6 Sit to lyin Lying to sitting on side of be: 6 Sit to stand: 6 Chair/sel-gd-mposh transfer: 6 PT Pastry Chef Goals Skilled Nursing Goals PT Pastry Chef Goals Time Frame: Mar 09, 2020 Roll Left & Right (QC): 6 Sit to Lying (QC): 6 Lying-Sitting on Side/Bed(QC): 6 Sit to Stand (QC): 6 Chair/Mer-jy-Wvfgc Xfer(QC): 6 Toilet Transfer (QC): 6 Car Transfer (QC): 6 Does the Patient Walk: Yes Walk 10 feet (QC): 6 Walk 50ft with 2 Turns (QC): 6 Walk 150 ft (QC): 6 Walking 10ft on Uneven Surface: 6 1 Step (curb) (QC): 6 4 Steps (QC): 6 12 Steps (QC): 9 Picking up an Object (QC): 9 Does the Pt use WC or Scooter?: No Wheel 50 feet with 2 turns (QC: 9 Type: N/A Wheel 150 feet: 9 Type: N/A PT Plan Treatment/Plan Treatment Plan: Continue Plan of Care Treatment Plan: Bed Mobility, Education, Functional Activity Tessa, Functional Strength, Group Therapy, Gait, Safety, Therapeutic Exercise, Transfers Treatment Duration: Mar 09, 2020 Frequency: At least 5 of 7 days/Wk (IRF) Estimated Hrs Per Day: 1.5 hours per day Patient and/or Family Agrees t: Yes Time/GCodes Time In: 1300 Time Out: 1333 Total Billed Treatment Time: 33 Total Billed Treatment 1, gt (15), ex (18) CHEO LIMA PT February 28, 2020 13:46
--- NOTE | 2020-02-28 14:00 | NUR ---
Pt symptoms of indigestion relieved by PRN Mylanta and sitting up. Discussed with pt that it is best to try to sit up after eating or drinking and may help to keep HOB elevated when sleeping. Pt is agreeable to this plan.
[2020-02-28] MEDS: ACETAMINOPHEN 500 MG TAB (TYLENOL) PO PRN (14:14)
[2020-02-28 18:02] VITALS: BP 112/70
[2020-02-28] MEDS: MELATONIN 3 MG TABLET PO PRN (20:23)
[2020-02-28] MEDS: amLODIPine 10 MG (NORVASC) TAB PO SCH (20:23)
[2020-02-28] MEDS: SIMvastatin 10 MG (ZOCOR) TAB PO SCH (20:23)
[2020-02-29] MEDS: ACETAMINOPHEN 500 MG TAB (TYLENOL) PO PRN ×3 (01:32→20:45)
[2020-02-29] MEDS: GABAPENTIN 300 MG (NEURONTIN) CAP PO SCH ×4 (01:32→19:33)
--- NOTE | 2020-02-29 01:35 | NUR ---
Patient up to the restroom. Patient stated to RN she didn't know what happened and that she must have been dreaming. Patient asked RN if she was on the floor. RN reassured patient that she had not been on the floor and that she had been in the bed the whole time. Patient given scheduled gabapentin and PRN acetaminophen. Blood sugar also checked per patient request. Blood sugar was 175 and had been 154 at 1999. Will continue to manage.
--- NOTE | 2020-02-29 01:56 | NUR ---
Patient calling out for help. RN checked on patient and patient was a little disoriented. Patient reoriented and also repositioned in bed. Patient denies any further need. Call light in place. Will continue to monitor. Addendum: 02/29/20 at 200 by JOSE ENRIQUE HUFFMAN RN Note should be timed for 0110 instead of 0158 Addendum: 02/29/20 at 207 by JOSE ENRIQUE HUFFMAN RN Vitals were checked at this time and were WNL.
[2020-02-29] MEDS: ANTACID SUSP 30 ML UDC (MYLANTA) PO PRN (03:14)
[2020-02-29 05:44] VITALS: BP_SYST 110; BP_SYST 126; BP_DIAS 71; BP_DIAS 82
[2020-02-29] MEDS: inSUlin ASPART (NovoLOG) 1 UNIT/0.01 ML (CHARGE PER UNIT) SC SCH ×4 (06:44→20:27)
[2020-02-29 08:25] VITALS: BP 113/55
[2020-02-29] MEDS: DICLOFENAC 1% GEL 100 GM (VOLTAREN) TUBE TOP SCH ×2 (08:26→20:30)
[2020-02-29] MEDS: DOCUSATE SODIUM 100 MG (COLACE) CAP PO SCH ×2 (08:27→20:22)
[2020-02-29] MEDS: LORATADINE (CLARITIN) 10 MG TAB PO SCH ×2 (08:27→20:22)
[2020-02-29] MEDS: metroNIDAZOLE 500 MG (FLAGYL) TAB PO SCH ×2 (08:27→13:39)
[2020-02-29] MEDS: FAMOTIDINE 20 MG (PEPCID) TABLET PO SCH (08:27)
[2020-02-29] MEDS: ETODOLAC 300 MG (LODINE) CAP PO SCH ×2 (08:27→20:22)
[2020-02-29] MEDS: SENNA W/DOCUSATE (SENOKOT S) TABLET PO SCH ×2 (08:27→20:26)
[2020-02-29] MEDS: polyethylene glycoL POWDER 17 GM (MIRALAX) PACK PO SCH ×2 (08:27→20:26)
[2020-02-29] MEDS: LOSARTAN 100 MG (COZAAR) TABLET PO SCH (08:27)
[2020-02-29] MEDS: DULoxetine 30 MG (CYMBALTA) CAP PO SCH (08:27)
[2020-02-29] MEDS: SIMETHICONE 80 MG (MYLICON) CHEW PO SCH ×4 (08:42→21:50)
--- NOTE | 2020-02-29 08:54 | Occupational Ther Daily Note ---
OT Current Status-Daily Note ADL-Treatment Therapy Code Descriptions/Definitions Functional [place] Measure: 0=Not Assessed/NA 4=Minimal Assistance 1=Total Assistance 5=Supervision or Setup 2=Maximal Assistance 6=Modified [place] 3=Moderate Assistance 7=Complete IndependenceSCALE: Activities may be completed with or without assistive devices. 6-Lvzujzzyqz-vncxafr completes the activity by him/herself with no assistance from a helper. 5-Set-up or Clean-up Assistance-helper sets up or cleans up; patient completes activity. [place] assists only prior to or following the activity. 4-Supervision or Touching Assistance-helper provides verbal cues and/or touching/steadying and/or contact guard assistance as patient completes activity. Assistance may be provided throughout the activity or intermittently. 3-Partial/Moderate Assistance-helper does LESS THAN HALF the effort. [place] lifts, holds or supports trunk or limbs, but provides less than half the effort. 2-Substantial/Maximal Assistance-helper does MORE THAN HALF the effort. [place] lifts or holds trunk or limbs and provides more than half the effort. 0-Etkbpdooe-nppcpq does ALL the effort. Patient does none of the effort to complete the activity. Or, the assistance of 2 or more helpers is required for the patient to complete the activity. If activity was not attempted, code reason: 7-Patient Refused. 9-Not Applicable-not attempted and the patient did not perform the activity before the current illness, exacerbation or injury. 10-Not Attempted due to Environmental Limitations-(lack of equipment, weather restraints, etc.). 88-Not Attempted due to Medical Conditions or Safety Concerns. OT Mcfp Goals Special War[employer] Combatant Crewman Goals Time Frame: Mar 09, 2020 Eating (QC): 6 Oral Hygiene (QC): 6 Toileting Hygiene (QC): 6 Shower/Bathe Self (QC): 6 Upper Body Dressing (QC): 6 Lower Body Dressing (QC): 6 On/Off Footwear (QC): 6 Additional Goals: 1-Demonstrate ADL Tasks, 2-Verbalize Understanding, 3- ImproveStrength/Tessa 1=Demonstrate adherence to instructed precautions during ADL tasks. 2=Patient will verbalize/demonstrate understanding of assistive devices/modifications for ADL. 3=Patient will improve strength/tolerance for activity to enable patient to perform ADL's. OT Education/Plan Treatment Plan/Plan of Care Patient would benefit from OT for education, treatment and training to promote independence in ADL's, mobility, safety and/or upper extremity function for ADL's. Plan of Care: ADL Retraining, Caregiver Training, Concurrent Therapy, Funct ional Mobility, Group Exercise/Act as Ind, UE Funct Exercise/Act Treatment Duration: Mar 09, 2020 Frequency: At least 5 of 7 days/Wk (IRF) Estimated Hrs Per Day: 1.5 hours per day Agreement: Yes Rehab Potential: LORENA Murillo February 29, 2020 08:54
--- NOTE | 2020-02-29 09:02 | Occupational Ther Daily Note ---
OT Current Status-Daily Note Subjective Pt alert, sitting in recliner. Pt agrees to therapy. Pt c/o pain throughout treatment though fluctuating in rating. Mental Status/Objective Patient Orientation: Person, Place, Time, Situation ADL-Treatment Pt agrees to shower. Sit <--> stand SBA. Ambulated with FWW to shower, SBA to transfer into/out of shower using shower bench and grabbar. Pt completed shower using shower bench, grabbar, hand held shower and long handle sponge with SBA. After set up, pt completed upper body dressing by self. Lower body dressing with AE, SBA in standing to hike over hips. Stood at sink to complete oral care, independent. Donned/doffed socks with AE. Therapy Code Descriptions/Definitions Functional [place] Measure: 0=Not Assessed/NA 4=Minimal Assistance 1=Total Assistance 5=Supervision or Setup 2=Maximal Assistance 6=Modified [place] 3=Moderate Assistance 7=Complete IndependenceSCALE: Activities may be completed with or without assistive devices. 1-Ivgmmsuitw-mbpmmxb completes the activity by him/herself with no assistance from a helper. 5-Set-up or Clean-up Assistance-helper sets up or cleans up; patient completes activity. [place] assists only prior to or following the activity. 4-Supervision or Touching Assistance-helper provides verbal cues and/or touching/steadying and/or contact guard assistance as patient completes activity. Assistance may be provided throughout the activity or intermittently. 3-Partial/Moderate Assistance-helper does LESS THAN HALF the effort. [place] lifts, holds or supports trunk or limbs, but provides less than half the effort. 2-Substantial/Maximal Assistance-helper does MORE THAN HALF the effort. [place] lifts or holds trunk or limbs and provides more than half the effort. 6-Jokbdtvub-nrotle does ALL the effort. Patient does none of the effort to complete the activity. Or, the assistance of 2 or more helpers is required for the patient to complete the activity. If activity was not attempted, code reason: 7-Patient Refused. 9-Not Applicable-not attempted and the patient did not perform the activity before the current illness, exacerbation or injury. 10-Not Attempted due to Environmental Limitations-(lack of equipment, weather restraints, etc.). 88-Not Attempted due to Medical Conditions or Safety Concerns. Oral Hygiene (QC): 6 Shower/Bathe Self (QC): 5 Upper Body Dressing (QC): 5 Lower Body Dressing (QC): 4 On/Off Footwear: 5 Toileting Hygiene (QC): 3 (Pt able to manipulate clothing though c/o increased pain and could not cleanse buttocks after BM.) Toilet Transfer (QC): 5 Assist to don/doff back brace. Other Treatment Pt ambulated around ARU with shoes on. Pt c/o shoes making knees hurt so took off when back in room. After session, pt sitting in recliner with call light/phone in reach. All needs met in room. OT Shelter Goals Shelter Goals Time Frame: Mar 09, 2020 Eating (QC): 6 Oral Hygiene (QC): 6 Toileting Hygiene (QC): 6 Shower/Bathe Self (QC): 6 Upper Body Dressing (QC): 6 Lower Body Dressing (QC): 6 On/Off Footwear (QC): 6 Additional Goals: 1-Demonstrate ADL Tasks, 2-Verbalize Understanding, 3- ImproveStrength/Tessa 1=Demonstrate adherence to instructed precautions during ADL tasks. 2=Patient will verbalize/demonstrate understanding of assistive devices/modifications for ADL. 3=Patient will improve strength/tolerance for activity to enable patient to perform ADL's. OT Education/Plan Problem List/Assessment Assessment: Decreased Activ Tolerance, Decreased UE Strength, Impaired Self- Care Skills Discharge Recommendations Plan/Recommendations: Continue POC Treatment Plan/Plan of Care Patient would benefit from OT for education, treatment and training to promote independence in ADL's, mobility, safety and/or upper extremity function for ADL's. Plan of Care: ADL Retraining, Caregiver Training, Concurrent Therapy, Functional Mobility, Group Exercise/Act as Ind, UE Funct Exercise/Act Treatment Duration: Mar 09, 2020 Frequency: At least 5 of 7 days/Wk (IRF) Estimated Hrs Per Day: 1.5 hours per day Agreement: Yes Rehab Potential: Good Time/GCodes Start Time: 07:30 Stop Time: 09:00 Total Time Billed (hr/min): 90 Billed Treatment Time 1 visit-ADL 5 (80 min) FA 1 (10 min) LORENA BEACH February 29, 2020 09:02
--- NOTE | 2020-02-29 09:24 | PM&R Progress Note ---
Subjective HPI/CC On Admission Date Seen by Provider: February 29, 2020 Time Seen by Provider: 09:30 Subjective/Events-last exam PCP Dr. Camejo will address the sleeping issue because the insomnia is severe Unable to contact DR Camejo so will increase Melatonin to 9mg at night and add Hydroxyzine 10mg at night once time to see if that helps Pain is well controlled Working with PT Denies any significant falls Bowels are moving semi-regular now Denies any significant other issues DC is planned for March 05 Checked meds and labs Conferred with RN Reviewed therapy notes Review of Systems General: Fatigue Musculoskeletal: back pain Objective Exam Vital Signs Vital Signs Date Time Temp Pulse Resp B/P (MAP) Pulse Ox O2 Delivery O2 Flow Rate FiO2 02/29/20 16:00 36.8 85 16 104/66 (79) 95 Room Air 02/26/20 06:05 2.00 Capillary Refill : Less Than 3 Seconds General Appearance: No Apparent Distress, WD/WN, Chronically ill HEENT: PERRL/EOMI, Normal ENT Inspection, Pharynx Normal Neck: Full Range of Motion, Normal Inspection, Non Tender, Supple, Carotid Bruit Respiratory: Chest Non Tender, Lungs Clear, Normal Breath Sounds, No Accessory Muscle Use, No Respiratory Distress Cardiovascular: Regular Rate, Rhythm, No Edema, No Gallop, No JVD, No Murmur, Normal Peripheral Pulses Gastrointestinal: Normal Bowel Sounds, No Organomegaly, No Pulsatile Mass, Non Tender, Soft Back: Normal Inspection, Decreased Range of Motion, Muscle Spasm, Vertebral Tenderness Extremity: Normal Capillary Refill, Normal Inspection, Normal Range of Motion, Non Tender, No Calf Tenderness, No Pedal Edema Neurologic/Psychiatric: Alert, Oriented x3, No Motor/Sensory Deficits, Normal Mood/Affect, director immunology II-XII Norm as Tested, Other (anxiety) Skin: Normal Color, Warm/Dry Lymphatic: No Adenopathy Results/Procedures Lab Patient resulted labs reviewed. FIM Transfers Therapy Code Descriptions/Definitions Functional [place] Measure: 0=Not Assessed/NA 4=Minimal Assistance 1=Total Assistance 5=Supervision or Setup 2=Maximal Assistance 6=Modified [place] 3=Moderate Assistance 7=Complete IndependenceSCALE: Activities may be completed with or without assistive devices. 0-Ollrwofkqq-cebacin completes the activity by him/herself with no assistance from a helper. 5-Set-up or Clean-up Assistance-helper sets up or cleans up; patient completes activity. [place] assists only prior to or following the activity. 4-Supervision or Touching Assistance-helper provides verbal cues and/or touching/steadying and/or contact guard assistance as patient completes activity. Assistance may be provided throughout the activity or intermittently. 3-Partial/Moderate Assistance-helper does LESS THAN HALF the effort. [place] lifts, holds or supports trunk or limbs, but provides less than half the effort. 2-Substantial/Maximal Assistance-helper does MORE THAN HALF the effort. [place] lifts or holds trunk or limbs and provides more than half the effort. 3-Rsqtqvcqs-eujokx does ALL the effort. Patient does none of the effort to complete the activity. Or, the assistance of 2 or more helpers is required for the patient to complete the activity. If activity was not attempted, code reason: 7-Patient Refused. 9-Not Applicable-not attempted and the patient did not perform the activity before the current illness, exacerbation or injury. 10-Not Attempted due to Environmental Limitations-(lack of equipment, weather restraints, etc.). 88-Not Attempted due to Medical Conditions or Safety Concerns. Roll Left to Right (QC): 5 Sit to Lying (QC): 5 Sit to Stand (QC): 5 Chair/Fxd-ma-Pklae Xfer(QC): 5 Car Transfer (QC): 7 Gait Training Does the Patient Walk?: Yes Distance: 250ft Walk 10 feet (QC): 5 Walk 50 ft with 2 Turns(QC): 5 Walk 150 ft (QC): 5 Walking 10ft/uneven surface-QC: 7 Gait Persons Needed: 1 Gait Assistive Device: FWW Wheelchair Training Does the Pt Use a Wheelchair?: No Wheel 50 ft with 2 turns (QC): 9 Wheel 150 ft (QC): 9 Type of Wheelchair: N/A Stair Training 1 Step (curb) (QC): 7 4 Steps (QC): 7 12 Steps (QC): 7 Balance Picking up an Object (QC): 9 (Pt will use premix operator concentrate to adhere to lumbar precautions) ADL-Treatment Eating (QC): 6 Oral Hygiene (QC): 5 Bathing Location: L Arm, R Arm, L Upper Leg, R Upper Leg, L Lower Leg (including foot), R Lower Leg (including foot), Chest, Abdomen, Perineal Area Shower/Bathe Self (QC): 3 Upper Body Dressing (QC): 5 Lower Body Dressing (QC): 3 On/Off Footwear (QC): 3 Toileting Hygiene (QC): 4 Toilet Transfer (QC): 4 Assessment/Plan Assessment and Plan Assess & Plan/Chief Complaint Assessment: Lumbar spine surgery urgently performed POD # 8 Dr Cortez PSI [place] DM HTN O2 dependent currently Emotional problems Psychosis with narcotics and benzos Post op constipation still a bit constipated but improved Anemia Ears popping- [place] Dr Calvo consultation Insomnia trial of increased Melatonin and Atarax 10mg Plan: BM regimen Pain control but minimize pain meds Kpad IRF protocol Supportive environment for fragile mental health Insomnia treatment (1) Lumbar stenosis (2) Hx of psychosis (3) History of opioid abuse (4) Diabetes mellitus (5) GERD without esophagitis (6) Malignant hypertension Status: Acute (7) Hypertension Status: Acute (8) Debility Status: Acute (9) Anxiety about health Status: Chronic HUANG LONDON DO February 29, 2020 09:24
--- NOTE | 2020-02-29 10:29 | Physical Therapy Daily Note ---
PT Daily Note-Current Subjective States that she is doing okay. States that she is still not sleeping. Pain Numeric Pain Scale: 0-No Pain Transfers SCALE: Activities may be completed with or without assistive devices. 4-Ldfywdqnnv-hrwufcv completes the activity by him/herself with no assistance from a helper. 5-Set-up or Clean-up Assistance-helper sets up or cleans up; patient completes activity. [place] assists only prior to or following the activity. 4-Supervision or Touching Assistance-helper provides verbal cues and/or touching/steadying and/or contact guard assistance as patient completes activity. Assistance may be provided throughout the activity or intermittently. 3-Partial/Moderate Assistance-helper does LESS THAN HALF the effort. [place] lifts, holds or supports trunk or limbs, but provides less than half the effort. 2-Substantial/Maximal Assistance-helper does MORE THAN HALF the effort. [place] lifts or holds trunk or limbs and provides more than half the effort. 2-Ujhkvoxau-mcvjgi does ALL the effort. Patient does none of the effort to complete the activity. Or, the assistance of 2 or more helpers is required for the patient to complete the activity. If activity was not attempted, code reason: 7-Patient Refused. 9-Not Applicable-not attempted and the patient did not perform the activity before the current illness, exacerbation or injury. 10-Not Attempted due to Environmental Limitations-(lack of equipment, weather restraints, etc.). 88-Not Attempted due to Medical Conditions or Safety Concerns. Sit to Stand (QC): 4 Weight Bearing Right Lower Extremity: Right Full Weight Bearing Left Lower Extremity: Left Full Weight Bearing Gait Training Does the Patient Walk?: Yes Distance: 300' x 3 Walk 10 feet (QC): 4 Walk 50 ft with 2 Turns(QC): 4 Walk 150 ft (QC): 4 Gait Persons Needed: 1 Gait Assistive Device: FWW Exercises Seated Therapy Exercises: LE Protocol Seated Reps: 20 NuStep Minutes: 15 NuStep Workload: 4 Assessment Current Status: Excellent Progress The patient did well with all exercises today. PT Short Term Goals Short Term Goals Time Frame: March 02, 2020 Roll Left & Right: 6 Sit to lyin Lying to sitting on side of be: 6 Sit to stand: 6 Chair/ior-gb-ichst transfer: 6 PT Dry Heat Room Attendant Goals Mcfp Goals PT Dry Heat Room Attendant Goals Time Frame: Mar 09, 2020 Roll Left & Right (QC): 6 Sit to Lying (QC): 6 Lying-Sitting on Side/Bed(QC): 6 Sit to Stand (QC): 6 Chair/Hea-ku-Bqhch Xfer(QC): 6 Toilet Transfer (QC): 6 Car Transfer (QC): 6 Does the Patient Walk: Yes Walk 10 feet (QC): 6 Walk 50ft with 2 Turns (QC): 6 Walk 150 ft (QC): 6 Walking 10ft on Uneven Surface: 6 1 Step (curb) (QC): 6 4 Steps (QC): 6 12 Steps (QC): 9 Picking up an Object (QC): 9 Does the Pt use WC or Scooter?: No Wheel 50 feet with 2 turns (QC: 9 Type: N/A Wheel 150 feet: 9 Type: N/A PT Plan Treatment/Plan Treatment Plan: Continue Plan of Care Treatment Plan: Bed Mobility, Education, Functional Activity Tessa, Functional Strength, Group Therapy, Gait, Safety, Therapeutic Exercise, Transfers Treatment Duration: Mar 09, 2020 Frequency: At least 5 of 7 days/Wk (IRF) Estimated Hrs Per Day: 1.5 hours per day Patient and/or Family Agrees t: Yes Time/GCodes Time In: 904 Time Out: 1005 Total Billed Treatment Time: 60 Total Billed Treatment 1, EX x 45', GT x 15' CHEO NOVAK PT February 29, 2020 10:29
--- NOTE | 2020-02-29 15:16 | Physical Therapy Daily Note ---
PT Daily Note-Current Subjective States that she is really tired. Transfers SCALE: Activities may be completed with or without assistive devices. 2-Ljndqvogtd-hjipddz completes the activity by him/herself with no assistance from a helper. 5-Set-up or Clean-up Assistance-helper sets up or cleans up; patient completes activity. [place] assists only prior to or following the activity. 4-Supervision or Touching Assistance-helper provides verbal cues and/or touching/steadying and/or contact guard assistance as patient completes activity. Assistance may be provided throughout the activity or intermittently. 3-Partial/Moderate Assistance-helper does LESS THAN HALF the effort. [place] lift s, holds or supports trunk or limbs, but provides less than half the effort. 2-Substantial/Maximal Assistance-helper does MORE THAN HALF the effort. [place] lifts or holds trunk or limbs and provides more than half the effort. 1-Hrtwhejla-oifofb does ALL the effort. Patient does none of the effort to complete the activity. Or, the assistance of 2 or more helpers is required for the patient to complete the activity. If activity was not attempted, code reason: 7-Patient Refused. 9-Not Applicable-not attempted and the patient did not perform the activity before the current illness, exacerbation or injury. 10-Not Attempted due to Environmental Limitations-(lack of equipment, weather restraints, etc.). 88-Not Attempted due to Medical Conditions or Safety Concerns. Weight Bearing Right Lower Extremity: Right Full Weight Bearing Left Lower Extremity: Left Full Weight Bearing Gait Training Distance: 300' x 2 Gait Persons Needed: 1 Gait Assistive Device: FWW Exercises Supine Ex: LE Protocol Supine Reps: 20 Seated Therapy Exercises: LE Protocol Seated Reps: 20 NuStep Minutes: 5 NuStep Workload: 4 Assessment Current Status: Excellent Progress The patient did well with all activities. PT Short Term Goals Short Term Goals Time Frame: March 02, 2020 Roll Left & Right: 6 Sit to lyin Lying to sitting on side of be: 6 Sit to stand: 6 Chair/ztf-oy-bwsvo transfer: 6 PT Booth Cashier Goals Care Home Goals PT Booth Cashier Goals Time Frame: Mar 09, 2020 Roll Left & Right (QC): 6 Sit to Lying (QC): 6 Lying-Sitting on Side/Bed(QC): 6 Sit to Stand (QC): 6 Chair/Lcp-ek-Mjyyp Xfer(QC): 6 Toilet Transfer (QC): 6 Car Transfer (QC): 6 Does the Patient Walk: Yes Walk 10 feet (QC): 6 Walk 50ft with 2 Turns (QC): 6 Walk 150 ft (QC): 6 Walking 10ft on Uneven Surface: 6 1 Step (curb) (QC): 6 4 Steps (QC): 6 12 Steps (QC): 9 Picking up an Object (QC): 9 Does the Pt use WC or Scooter?: No Wheel 50 feet with 2 turns (QC: 9 Type: N/A Wheel 150 feet: 9 Type: N/A PT Plan Treatment/Plan Treatment Plan: Continue Plan of Care Treatment Plan: Bed Mobility, Education, Functional Activity Tessa, Functional Strength, Group Therapy, Gait, Safety, Therapeutic Exercise, Transfers Treatment Duration: Mar 09, 2020 Frequency: At least 5 of 7 days/Wk (IRF) Estimated Hrs Per Day: 1.5 hours per day Patient and/or Family Agrees t: Yes Time/GCodes Time In: 1330 Time Out: 1400 Total Billed Treatment Time: 30 Total Billed Treatment 1, EX x 20, GT x 10 CHEO NOVAK PT February 29, 2020 15:15
--- NOTE | 2020-02-29 15:44 | NUR ---
CM/SS ADMISSION and PATIENT CARE CONFERENCE SUMMARY Patient was admitted to ARU 02/24/20 from [facility] post op for lumbar stenosis with radiculopathy. Additional history includes, in part, DM, GERD, HTN, mental and behavioral disorders, anxiety about health, history of opioid abuse. Patient resides home with her spouse, Wu Maciel and will return there at discharge. Reviewed Summary with patient and she is in agreement to target discharge of 03/05/20. PCP: Dr. Fifi Camejo [place] PHARMACY: Raul Tran, [employer] INSURED: Medicare, for Life DME: Patient indicates she will have no new DME needs for discharge. She has FWW, wheelchair, ramp, grabber, high rise stools, a one level home. HHC: Patient is in agreement to participate with home health services, she has requested resume with [facility]. Ken[facility] Terminal Operator confirmed her services remain open, she was receiving RN and singer songwriter updated we will be adding PT. Agency understands to schedule according to tentative discharge March 05. BARRIERS TO DISCHARGE: Patient has history of emotional instability, initially presented during therapy with variable motivation and mood swings. Has not slept well, comments she is a bit confused today and did nap this afternoon between sessions. She consistently states she has strong family/friend support at home and is looking forward to returning there. Her son is coming from [facility] for a short stay to assist once she leaves hospital. CONTACTS: Wu Maciel, Spouse [phone] Yusuf Maciel, Son [place], [place] Gissel Maciel, Daughter [place] Reviewed patient care conference summary with patient who understood the purpose and process, signed, charted. Patient discharge is planned prior to the next team conference.
[2020-02-29 16:00] VITALS: BP 104/66
[2020-02-29] MEDS: ARTIFICAL TEARS 0.4 ML UNIT DOSE (REFRESH PLUS) OU PRN (16:49)
--- NOTE | 2020-02-29 19:08 | NUR ---
bedside report received from ENIO BAPTISTE, assume care of pt
[2020-02-29 20:18] VITALS: BP 122/75
[2020-02-29] MEDS: amLODIPine 10 MG (NORVASC) TAB PO SCH (20:21)
[2020-02-29] MEDS: SIMvastatin 10 MG (ZOCOR) TAB PO SCH (20:21)
--- NOTE | 2020-02-29 20:22 | NUR ---
states had 2 stools today, took Colace refused Senokot & miralax, c/o back pain level 7/10 on numeric scale, Tylenol, 1000 mg given fsbs 159
[2020-02-29] MEDS: MELATONIN 3 MG TABLET PO SCH ×2 (20:24→23:03)
[2020-02-29] MEDS ORDERED: hydrOXYzine (ATARAX) 10 MG TAB PO ONE (21:00)
--- NOTE | 2020-02-29 21:20 | NUR ---
rates pain level 5/10 on numeric scale, from gas discomfort
[2020-03-01] MEDS: GABAPENTIN 300 MG (NEURONTIN) CAP PO SCH ×4 (01:19→18:30)
[2020-03-01 05:46] VITALS: BP 103/67
[2020-03-01] MEDS: inSUlin ASPART (NovoLOG) 1 UNIT/0.01 ML (CHARGE PER UNIT) SC SCH ×4 (06:00→20:37)
[2020-03-01] MEDS: ACETAMINOPHEN 500 MG TAB (TYLENOL) PO PRN ×2 (06:04→18:31)
--- NOTE | 2020-03-01 06:04 | NUR ---
c/o back pain level 1/10 on numeric scale, Tylenol 1000mg given
--- NOTE | 2020-03-01 06:16 | PM&R Progress Note ---
Subjective HPI/CC On Admission Date Seen by Provider: March 01, 2020 Time Seen by Provider: 10:30 Subjective/Events-last exam Insomnia improved with meds added last night Pain is well controlled Working with PT and preparing for DC next week Denies any significant falls Bowels are moving very well now Denies any significant other issues DC is planned for March 05 Checked meds and labs Conferred with RN Reviewed therapy notes Review of Systems Musculoskeletal: back pain Neurological: Weakness, Numbness, Incoordination Objective Exam Vital Signs Vital Signs Date Time Temp Pulse Resp B/P (MAP) Pulse Ox O2 Delivery O2 Flow Rate FiO2 03/01/20 17:20 36.8 77 18 111/70 (84) 96 Room Air 02/26/20 06:05 2.00 Capillary Refill : Less Than 3 Seconds General Appearance: No Apparent Distress, WD/WN, Chronically ill HEENT: PERRL/EOMI, Normal ENT Inspection, Pharynx Normal Neck: Full Range of Motion, Normal Inspection, Non Tender, Supple, Carotid Bruit Respiratory: Chest Non Tender, Lungs Clear, Normal Breath Sounds, No Accessory Muscle Use, No Respiratory Distress Cardiovascular: Regular Rate, Rhythm, No Edema, No Gallop, No JVD, No Murmur, Normal Peripheral Pulses Gastrointestinal: Normal Bowel Sounds, No Organomegaly, No Pulsatile Mass, Non Tender, Soft Back: Normal Inspection, Decreased Range of Motion, Muscle Spasm, Vertebral Tenderness Extremity: Normal Capillary Refill, Normal Inspection, Normal Range of Motion, Non Tender, No Calf Tenderness, No Pedal Edema Neurologic/Psychiatric: Alert, Oriented x3, No Motor/Sensory Deficits, Normal Mood/Affect, model and dye person II-XII Norm as Tested, Other (anxiety) Skin: Normal Color, Warm/Dry Lymphatic: No Adenopathy Results/Procedures Lab Patient resulted labs reviewed. FIM Transfers Therapy Code Descriptions/Definitions Functional [place] Measure: 0=Not Assessed/NA 4=Minimal Assistance 1=Total Assistance 5=Supervision or Setup 2=Maximal Assistance 6=Modified [place] 3=Moderate Assistance 7=Complete IndependenceSCALE: Activities may be completed with or without assistive devices. 1-Csnexisqhz-jlroxpt completes the activity by him/herself with no assistance from a helper. 5-Set-up or Clean-up Assistance-helper sets up or cleans up; patient completes activity. [place] assists only prior to or following the activity. 4-Supervision or Touching Assistance-helper provides verbal cues and/or touching/steadying and/or contact guard assistance as patient completes activity. Assistance may be provided throughout the activity or intermittently. 3-Partial/Moderate Assistance-helper does LESS THAN HALF the effort. [place] lifts, holds or supports trunk or limbs, but provides less than half the effort. 2-Substantial/Maximal Assistance-helper does MORE THAN HALF the effort. [place] lifts or holds trunk or limbs and provides more than half the effort. 3-Jjdgcsnhs-btbtfs does ALL the effort. Patient does none of the effort to complete the activity. Or, the assistance of 2 or more helpers is required for the patient to complete the activity. If activity was not attempted, code reason: 7-Patient Refused. 9-Not Applicable-not attempted and the patient did not perform the activity before the current illness, exacerbation or injury. 10-Not Attempted due to Environmental Limitations-(lack of equipment, weather restraints, etc.). 88-Not Attempted due to Medical Conditions or Safety Concerns. Roll Left to Right (QC): 5 Sit to Lying (QC): 5 Sit to Stand (QC): 4 Chair/Uyq-xz-Cvqbu Xfer(QC): 5 Car Transfer (QC): 7 Gait Training Does the Patient Walk?: Yes Distance: 300' x 2 Walk 10 feet (QC): 4 Walk 50 ft with 2 Turns(QC): 4 Walk 150 ft (QC): 4 Walking 10ft/uneven surface-QC: 7 Gait Persons Needed: 1 Gait Assistive Device: FWW Wheelchair Training Does the Pt Use a Wheelchair?: No Wheel 50 ft with 2 turns (QC): 9 Wheel 150 ft (QC): 9 Type of Wheelchair: N/A Stair Training 1 Step (curb) (QC): 7 4 Steps (QC): 7 12 Steps (QC): 7 Balance Picking up an Object (QC): 9 (Pt will use trimming cutter machine to adhere to lumbar precautions) ADL-Treatment Eating (QC): 6 Oral Hygiene (QC): 6 Bathing Location: L Arm, R Arm, L Upper Leg, R Upper Leg, L Lower Leg (including foot), R Lower Leg (including foot), Chest, Abdomen, Perineal Area Shower/Bathe Self (QC): 5 Upper Body Dressing (QC): 5 Lower Body Dressing (QC): 4 On/Off Footwear (QC): 5 Toileting Hygiene (QC): 3 (Pt able to manipulate clothing though c/o increased pain and could not cleanse buttocks after BM.) Toilet Transfer (QC): 5 Assessment/Plan Assessment and Plan Assess & Plan/Chief Complaint Assessment: Lumbar spine surgery urgently performed POD # 9 Dr Cortez PSI [place] DM HTN O2 dependent currently Emotional problems Psychosis with narcotics and benzos Post op constipation still a bit constipated but improved Anemia Ears popping- [place] Dr Calvo consultation Insomnia trial of increased Melatonin and Atarax 10mg Plan: BM regimen Pain control but minimize pain meds Kpad IRF protocol Supportive environment for fragile mental health Insomnia treatment (1) Lumbar stenosis (2) Hx of psychosis (3) History of opioid abuse (4) Diabetes mellitus (5) GERD without esophagitis (6) Malignant hypertension Status: Acute (7) Hypertension Status: Acute (8) Debility Status: Acute (9) Anxiety about health Status: Chronic HUANG LONDON DO March 01, 2020 06:16
--- NOTE | 2020-03-01 06:35 | NUR ---
rates pain level 0/10 on numeric scale
[2020-03-01] MEDS: LORATADINE (CLARITIN) 10 MG TAB PO SCH ×2 (08:18→20:37)
[2020-03-01] MEDS: FAMOTIDINE 20 MG (PEPCID) TABLET PO SCH (08:18)
[2020-03-01] MEDS: ETODOLAC 300 MG (LODINE) CAP PO SCH ×2 (08:18→20:37)
[2020-03-01] MEDS: SIMETHICONE 80 MG (MYLICON) CHEW PO SCH ×4 (08:18→20:38)
[2020-03-01] MEDS: DICLOFENAC 1% GEL 100 GM (VOLTAREN) TUBE TOP SCH ×2 (08:18→20:47)
[2020-03-01] MEDS: DULoxetine 30 MG (CYMBALTA) CAP PO SCH (08:18)
[2020-03-01] MEDS: DOCUSATE SODIUM 100 MG (COLACE) CAP PO SCH ×2 (08:19→20:31)
[2020-03-01] MEDS: polyethylene glycoL POWDER 17 GM (MIRALAX) PACK PO SCH ×2 (08:19→20:32)
[2020-03-01] MEDS: SENNA W/DOCUSATE (SENOKOT S) TABLET PO SCH ×2 (08:19→20:32)
[2020-03-01] MEDS: LOSARTAN 100 MG (COZAAR) TABLET PO SCH (08:19)
[2020-03-01 08:20] VITALS: BP 117/64
--- NOTE | 2020-03-01 08:44 | Occupational Ther Daily Note ---
OT Current Status-Daily Note Subjective Pt alert, sitting in recliner. Pt agrees to therapy. Pt states that she slept last night but also initially had pain then it was gone and she could rest. Initially had 0/10 pain then she started moving and had 8/10 pain. Mental Status/Objective Patient Orientation: Person, Place, Time, Situation ADL-Treatment Pt declined shower today. Agrees to sponge bath. Pt requests to use bathroom. Supervision with sit <--> stand, ambulated with FWW to bathroom. Transferred to/from toilet with SBA. Pt attempted to cleanse self after BM though inefficient, supervision with clothing manipulation. Pt stood at sink to complete oral care, hand washing and grooming independently. After set up, pt completed upper body dressing with mod I. After set up, pt complete lower body dressing with SBA in standing to hike pants over hips. Pt then ambulated to tub to complete tub transfer with SBA using FWW and tub transfer bench. After session, pt sitting in [facility] area and PT took over care. All needs met. Therapy Code Descriptions/Definitions Functional [place] Measure: 0=Not Assessed/NA 4=Minimal Assistance 1=Total Assistance 5=Supervision or Setup 2=Maximal Assistance 6=Modified [place] 3=Moderate Assistance 7=Complete IndependenceSCALE: Activities may be completed with or without assistive devices. 8-Ilfbwdzmju-oilcxfb completes the activity by him/herself with no assistance from a helper. 5-Set-up or Clean-up Assistance-helper sets up or cleans up; patient completes activity. [place] assists only prior to or following the activity. 4-Supervision or Touching Assistance-helper provides verbal cues and/or touching/steadying and/or contact guard assistance as patient completes activity. Assistance may be provided throughout the activity or intermittently. 3-Partial/Moderate Assistance-helper does LESS THAN HALF the effort. [place] lifts, holds or supports trunk or limbs, but provides less than half the effort. 2-Substantial/Maximal Assistance-helper does MORE THAN HALF the effort. [place] lifts or holds trunk or limbs and provides more than half the effort. 8-Jbyewrher-yyztvy does ALL the effort. Patient does none of the effort to complete the activity. Or, the assistance of 2 or more helpers is required for the patient to complete the activity. If activity was not attempted, code reason: 7-Patient Refused. 9-Not Applicable-not attempted and the patient did not perform the activity before the current illness, exacerbation or injury. 10-Not Attempted due to Environmental Limitations-(lack of equipment, weather restraints, etc.). 88-Not Attempted due to Medical Conditions or Safety Concerns. Oral Hygiene (QC): 6 Upper Body Dressing (QC): 5 Lower Body Dressing (QC): 4 On/Off Footwear: 4 Toileting Hygiene (QC): 4 Toilet Transfer (QC): 4 OT Data Security Coordinator Goals Data Security Coordinator Goals Time Frame: Mar 09, 2020 Eating (QC): 6 Oral Hygiene (QC): 6 Toileting Hygiene (QC): 6 Shower/Bathe Self (QC): 6 Upper Body Dressing (QC): 6 Lower Body Dressing (QC): 6 On/Off Footwear (QC): 6 Additional Goals: 1-Demonstrate ADL Tasks, 2-Verbalize Understanding, 3- ImproveStrength/Tessa 1=Demonstrate adherence to instructed precautions during ADL tasks. 2=Patient will verbalize/demonstrate understanding of assistive emmanuel ernestine/modifications for ADL. 3=Patient will improve strength/tolerance for activity to enable patient to perform ADL's. OT Education/Plan Problem List/Assessment Assessment: Decreased Activ Tolerance, Decreased UE Strength, Impaired Self- Care Skills Discharge Recommendations Plan/Recommendations: Continue POC Treatment Plan/Plan of Care Patient would benefit from OT for education, treatment and training to promote independence in ADL's, mobility, safety and/or upper extremity function for ADL's. Plan of Care: ADL Retraining, Caregiver Training, Concurrent Therapy, Functional Mobility, Group Exercise/Act as Ind, UE Funct Exercise/Act Treatment Duration: Mar 09, 2020 Frequency: At least 5 of 7 days/Wk (IRF) Estimated Hrs Per Day: 1.5 hours per day Agreement: Yes Rehab Potential: Good Time/GCodes Start Time: 07:30 Stop Time: 08:30 Total Time Billed (hr/min): 60 Billed Treatment Time 1 visit-ADL 4 (60 min) LORENA [place] March 01, 2020 08:44
--- NOTE | 2020-03-01 09:48 | Physical Therapy Daily Note ---
PT Daily Note-Current Subjective Pt. states she is grateful to have had a good night of sleep last night and that she is having minimal pain and feels she had a good surgical outcome and has had great care all the way around. Pain Location: No Pain Reported Mental Status Patient Orientation: Normal For Age Attachments: Other-See Comments (back brace) Transfers SCALE: Activities may be completed with or without assistive devices. 8-Kjicgcmwry-ezskcal completes the activity by him/herself with no assistance from a helper. 5-Set-up or Clean-up Assistance-helper sets up or cleans up; patient completes activity. [place] assists only prior to or following the activity. 4-Supervision or Touching Assistance-helper provides verbal cues and/or touching/steadying and/or contact guard assistance as patient completes activity. Assistance may be provided throughout the activity or intermittently. 3-Partial/Moderate Assistance-helper does LESS THAN HALF the effort. [place] lifts, holds or supports trunk or limbs, but provides less than half the effort. 2-Substantial/Maximal Assistance-helper does MORE THAN HALF the effort. [place] lifts or holds trunk or limbs and provides more than half the effort. 6-Rrbaumuff-vblpoc does ALL the effort. Patient does none of the effort to complete the activity. Or, the assistance of 2 or more helpers is required for the patient to complete the activity. If activity was not attempted, code reason: 7-Patient Refused. 9-Not Applicable-not attempted and the patient did not perform the activity before the current illness, exacerbation or injury. 10-Not Attempted due to Environmental Limitations-(lack of equipment, weather restraints, etc.). 88-Not Attempted due to Medical Conditions or Safety Concerns. Roll Left & Right (QC): 6 Sit to Lying (QC): 6 Lying to Sitting/Side of Bed(Q: 6 Sit to Stand (QC): 6 Chair/Hrv-ap-Satlw Xfer(QC): 6 pt. demonstrated good log roll technique and safe but slow careful TRFs all trials Weight Bearing Right Lower Extremity: Right Full Weight Bearing Left Lower Extremity: Left Full Weight Bearing Gait Training Does the Patient Walk?: Yes Walk 10 feet (QC): 6 Walk 50 ft with 2 Turns(QC): 6 Walk 150 ft (QC): 6 Gait Persons Needed: 1 Gait Assistive Device: FWW some flexion of trunk over FWW, even step length, moderate wt bearing onto FWW. safe turns and approaches Exercises Supine Ex: Ankle pumps, Quad Set, Rolling, Glut sets, Heel Slides, Short Arc Quads, Hip abd/add Supine Reps: 20 Seated Therapy Exercises: Ankle pumps, Sit to stand, Long arc quads, Hip flexion, Hip abd/add Seated Reps: 15 NuStep Minutes: 10 NuStep Workload: 4 Treatments leg presses x 12 on Nustep. Up in recliner after Rx with instruction in how to achieve near zero gravity position in chair using head recline mechanism, pt. commenting it is so comfortable she feels like she will fall right to sleep, lucio , warm pack and phone at hand Assessment Current Status: Excellent Progress increased funct mob, decreased pain, increased indep PT Short Term Goals Short Term Goals Time Frame: March 02, 2020 Roll Left & Right: 6 Sit to lyin Lying to sitting on side of be: 6 Sit to stand: 6 Chair/tfa-qp-xvzlr transfer: 6 PT Business Continuity Analyst Goals Senior Care Goals PT Business Continuity Analyst Goals Time Frame: Mar 09, 2020 Roll Left & Right (QC): 6 Sit to Lying (QC): 6 Lying-Sitting on Side/Bed(QC): 6 Sit to Stand (QC): 6 Chair/Mly-my-Rfbpk Xfer(QC): 6 Toilet Transfer (QC): 6 Car Transfer (QC): 6 Does the Patient Walk: Yes Walk 10 feet (QC): 6 Walk 50ft with 2 Turns (QC): 6 Walk 150 ft (QC): 6 Walking 10ft on Uneven Surface: 6 1 Step (curb) (QC): 6 4 Steps (QC): 6 12 Steps (QC): 9 Picking up an Object (QC): 9 Does the Pt use WC or Scooter?: No Wheel 50 feet with 2 turns (QC: 9 Type: N/A Wheel 150 feet: 9 Type: N/A PT Plan Treatment/Plan Treatment Plan: Continue Plan of Care Treatment Plan: Bed Mobility, Education, Functional Activity Tessa, Functional Strength, Group Therapy, Gait, Safety, Therapeutic Exercise, Transfers Treatment Duration: Mar 09, 2020 Frequency: At least 5 of 7 days/Wk (IRF) Estimated Hrs Per Day: 1.5 hours per day Patient and/or Family Agrees t: Yes Safety Risks/Education Patient Education: Gait Training, Transfer Techniques, Correct Positioning, Reviewed Don/Doff Brace, Disease Process, Safety Issues Teaching Recipient: Patient Teaching Methods: Demonstration, Discussion Response to Teaching: Verbalize Understanding, Return Demonstration, Reinforcement Needed Time/GCodes Time In: 830 Time Out: 930 Total Billed Treatment Time: 60 Total Billed Treatment 1,EX30m,FA15m,GT15m LAUREN VIGIL CLASSIFIED AD TAKER March 01, 2020 09:48
[2020-03-01] MEDS: CALCIUM CARBONATE 500 MG (TUMS) TAB.CHEW PO PRN ×2 (11:14→14:55)
--- NOTE | 2020-03-01 11:58 | Occupational Ther Daily Note ---
OT Current Status-Daily Note Subjective Pt sleeping in recliner, took pt longer to become alert. Pt stated that she hurt on R side and requested a TUMs, nrsg brought. Pt agrees to therapy. Mental Status/Objective Patient Orientation: Person, Place, Time, Situation ADL-Treatment Therapy Code Descriptions/Definitions Functional [place] Measure: 0=Not Assessed/NA 4=Minimal Assistance 1=Total Assistance 5=Supervision or Setup 2=Maximal Assistance 6=Modified [place] 3=Moderate Assistance 7=Complete IndependenceSCALE: Activities may be completed with or without assistive devices. 9-Ovntuvktwq-lpwbrsj completes the activity by him/herself with no assistance from a helper. 5-Set-up or Clean-up Assistance-helper sets up or cleans up; patient completes activity. [place] assists only prior to or following the activity. 4-Supervision or Touching Assistance-helper provides verbal cues and/or touching/steadying and/or contact guard assistance as patient completes activity. Assistance may be provided throughout the activity or intermittently. 3-Partial/Moderate Assistance-helper does LESS THAN HALF the effort. [place] lifts, holds or supports trunk or limbs, but provides less than half the effort. 2-Substantial/Maximal Assistance-helper does MORE THAN HALF the effort. [place] lifts or holds trunk or limbs and provides more than half the effort. 8-Kpwqkynmu-phjqha does ALL the effort. Patient does none of the effort to complete the activity. Or, the assistance of 2 or more helpers is required for the patient to complete the activity. If activity was not attempted, code reason: 7-Patient Refused. 9-Not Applicable-not attempted and the patient did not perform the activity before the current illness, exacerbation or injury. 10-Not Attempted due to Environmental Limitations-(lack of equipment, weather restraints, etc.). 88-Not Attempted due to Medical Conditions or Safety Concerns. Other Treatment Pt requires min A to don/doff back brace. Sit <--> stand with supervision. Pt ambulated to therapy gym to work on UE strengthening tasks to increase strength and activity tolerance for daily functional tasks. Arm bike 10 min with minimal resistance with one break. PT took over care of pt in therapy gym. All needs met in room. OT Half-Way Goals Surgical Corsetier Goals Time Frame: Mar 09, 2020 Eating (QC): 6 Oral Hygiene (QC): 6 Toileting Hygiene (QC): 6 Shower/Bathe Self (QC): 6 Upper Body Dressing (QC): 6 Lower Body Dressing (QC): 6 On/Off Footwear (QC): 6 Additional Goals: 1-Demonstrate ADL Tasks, 2-Verbalize Understanding, 3- ImproveStrength/Tessa 1=Demonstrate adherence to instructed precautions during ADL tasks. 2=Patient will verbalize/demonstrate understanding of assistive devices/modifications for ADL. 3=Patient will improve strength/tolerance for activity to enable patient to perform ADL's. OT Education/Plan Problem List/Assessment Assessment: Decreased Activ Tolerance, Decreased UE Strength Discharge Recommendations Plan/Recommendations: Continue POC Treatment Plan/Plan of Care Patient would benefit from OT for education, treatment and training to promote independence in ADL's, mobility, safety and/or upper extremity function for ADL's. Plan of Care: ADL Retraining, Caregiver Training, Concurrent Therapy, Functional Mobility, Group Exercise/Act as Ind, UE Funct Exercise/Act Treatment Duration: Mar 09, 2020 Frequency: At least 5 of 7 days/Wk (IRF) Estimated Hrs Per Day: 1.5 hours per day Agreement: Yes Rehab Potential: Good Time/GCodes Start Time: 11:00 Stop Time: 11:30 Total Time Billed (hr/min): 30 Billed Treatment Time 1 visit-FA 1 (20 min) EX 1 (10 min) [place] March 01, 2020 11:58
--- NOTE | 2020-03-01 12:04 | Physical Therapy Daily Note ---
PT Daily Note-Current Subjective Pt. agrees to Rx. States her family installed a ramp for her at home . States she doesnt feel like attempting steps today but is willing to trial ramp. Pain Location: No Pain Reported Mental Status Patient Orientation: Normal For Age Attachments: Other-See Comments (back brace) Transfers SCALE: Activities may be completed with or without assistive devices. 6-Aauxeyvpjt-dacdoei completes the activity by him/herself with no assistance from a helper. 5-Set-up or Clean-up Assistance-helper sets up or cleans up; patient completes activity. [place] assists only prior to or following the activity. 4-Supervision or Touching Assistance-helper provides verbal cues and/or touching/steadying and/or contact guard assistance as patient completes activity. Assistance may be provided throughout the activity or intermittently. 3-Partial/Moderate Assistance-helper does LESS THAN HALF the effort. [place] lifts, holds or supports trunk or limbs, but provides less than half the effort. 2-Substantial/Maximal Assistance-helper does MORE THAN HALF the effort. [place] lifts or holds trunk or limbs and provides more than half the effort. 3-Etfxcihxh-ebzklo does ALL the effort. Patient does none of the effort to complete the activity. Or, the assistance of 2 or more helpers is required for the patient to complete the activity. If activity was not attempted, code reason: 7-Patient Refused. 9-Not Applicable-not attempted and the patient did not perform the activity before the current illness, exacerbation or injury. 10-Not Attempted due to Environmental Limitations-(lack of equipment, weather restraints, etc.). 88-Not Attempted due to Medical Conditions or Safety Concerns. all sit to stands multiple trials SBA to CGA Weight Bearing Right Lower Extremity: Right Full Weight Bearing Left Lower Extremity: Left Full Weight Bearing Gait Training Does the Patient Walk?: Yes Walk 150 ft (QC): 5 Gait Persons Needed: 1 Gait Assistive Device: FWW pt. ambulated to elevator then to waiting area approx 400 ft where she rested and did Bilat LE ex then ambulated another 175 fto to ramp where she descended approx 60 ft , rested in sitting again then ambulated up ramp all with SBA. Pt. rested again seated, then ambulated approx 400 ft further to room. Pt. in room with crystal machining coordinator as she had requested earlier in day. pt. in recliner with feet elevated and knees flexed in a position she found very soothing and relaxing, call lucio at hand Exercises Seated Therapy Exercises: Ankle pumps, Sit to stand, Long arc quads, Hip flexion, Hip abd/add Seated Reps: 10 Assessment Current Status: Good Progress PT Short Term Goals Short Term Goals Time Frame: March 02, 2020 Roll Left & Right: 6 Sit to lyin Lying to sitting on side of be: 6 Sit to stand: 6 Chair/wft-ox-edrxo transfer: 6 PT Electronic Warfare Technician Goals Alf Goals PT Electronic Warfare Technician Goals Time Frame: Mar 09, 2020 Roll Left & Right (QC): 6 Sit to Lying (QC): 6 Lying-Sitting on Side/Bed(QC): 6 Sit to Stand (QC): 6 Chair/Ukr-fz-Ofand Xfer(QC): 6 Toilet Transfer (QC): 6 Car Transfer (QC): 6 Does the Patient Walk: Yes Walk 10 feet (QC): 6 Walk 50ft with 2 Turns (QC): 6 Walk 150 ft (QC): 6 Walking 10ft on Uneven Surface: 6 1 Step (curb) (QC): 6 4 Steps (QC): 6 12 Steps (QC): 9 Picking up an Object (QC): 9 Does the Pt use WC or Scooter?: No Wheel 50 feet with 2 turns (QC: 9 Type: N/A Wheel 150 feet: 9 Type: N/A PT Plan Treatment/Plan Treatment Plan: Continue Plan of Care Treatment Plan: Bed Mobility, Education, Functional Activity Tessa, Functional Strength, Group Therapy, Gait, Safety, Therapeutic Exercise, Transfers Treatment Duration: Mar 09, 2020 Frequency: At least 5 of 7 days/Wk (IRF) Estimated Hrs Per Day: 1.5 hours per day Patient and/or Family Agrees t: Yes Safety Risks/Education Patient Education: Gait Training, Transfer Techniques, Correct Positioning, Safety Issues Teaching Recipient: Patient Teaching Methods: Demonstration, Discussion Response to Teaching: Verbalize Understanding, Return Demonstration, Reinforcement Needed Time/GCodes Time In: 1130 Time Out: 1200 Total Billed Treatment Time: 30 Total Billed Treatment 1,GT30m LAUREN VIGIL WORT EXTRACTOR March 01, 2020 12:04
--- NOTE | 2020-03-01 12:13 | NUR ---
Pt belongs to [employer] in [facility]. Mammography Supervisor visited and prayed w/ pt.
[2020-03-01 17:20] VITALS: BP 111/70
[2020-03-01] MEDS: amLODIPine 10 MG (NORVASC) TAB PO SCH (20:37)
[2020-03-01] MEDS: SIMvastatin 10 MG (ZOCOR) TAB PO SCH (20:37)
[2020-03-02] MEDS: GABAPENTIN 300 MG (NEURONTIN) CAP PO SCH ×4 (01:47→17:28)
[2020-03-02] MEDS: ACETAMINOPHEN 500 MG TAB (TYLENOL) PO PRN ×3 (01:48→17:39)
[2020-03-02 05:32] VITALS: BP 122/77
[2020-03-02] MEDS: inSUlin ASPART (NovoLOG) 1 UNIT/0.01 ML (CHARGE PER UNIT) SC SCH ×4 (06:27→20:55)
--- NOTE | 2020-03-02 08:18 | PM&R Progress Note ---
Subjective HPI/CC On Admission Date Seen by Provider: March 02, 2020 Time Seen by Provider: 12:00 Subjective/Events-last exam Insomnia improved with meds added Pain is well controlled on APAP Working with PT and preparing for DC next week Uses nursing staff a lot Bowels are moving very well now a bit loose now Denies any significant other issues DC is planned for March 05 Checked meds and labs Conferred with RN Reviewed therapy notes Review of Systems General: Fatigue Musculoskeletal: back pain Objective Exam Vital Signs Vital Signs Date Time Temp Pulse Resp B/P (MAP) Pulse Ox O2 Delivery O2 Flow Rate FiO2 03/02/20 05:32 37.1 91 18 122/77 (92) 96 Room Air 02/26/20 06:05 2.00 Capillary Refill : Less Than 3 Seconds General Appearance: No Apparent Distress, WD/WN, Chronically ill HEENT: PERRL/EOMI, Normal ENT Inspection, Pharynx Normal Neck: Full Range of Motion, Normal Inspection, Non Tender, Supple, Carotid Bruit Respiratory: Chest Non Tender, Lungs Clear, Normal Breath Sounds, No Accessory Muscle Use, No Respiratory Distress Cardiovascular: Regular Rate, Rhythm, No Edema, No Gallop, No JVD, No Murmur, Normal Peripheral Pulses Gastrointestinal: Normal Bowel Sounds, No Organomegaly, No Pulsatile Mass, Non Tender, Soft Back: Normal Inspection, Decreased Range of Motion, Muscle Spasm, Vertebral Tenderness Extremity: Normal Capillary Refill, Normal Inspection, Normal Range of Motion, Non Tender, No Calf Tenderness, No Pedal Edema Neurologic/Psychiatric: Alert, Oriented x3, No Motor/Sensory Deficits, Normal Mood/Affect, nuclear security officer II-XII Norm as Tested, Other (anxiety) Skin: Normal Color, Warm/Dry Lymphatic: No Adenopathy Results/Procedures Lab Patient resulted labs reviewed. FIM Transfers Therapy Code Descriptions/Definitions Functional [place] Measure: 0=Not Assessed/NA 4=Minimal Assistance 1=Total Assistance 5=Supervision or Setup 2=Maximal Assistance 6=Modified [place] 3=Moderate Assistance 7=Complete IndependenceSCALE: Activities may be completed with or without assistive devices. 5-Ykwfuwzgec-illjbqu completes the activity by him/herself with no assistance from a helper. 5-Set-up or Clean-up Assistance-helper sets up or cleans up; patient completes activity. [place] assists only prior to or following the activity. 4-Supervision or Touching Assistance-helper provides verbal cues and/or touching/steadying and/or contact guard assistance as patient completes activity. Assistance may be provided throughout the activity or intermittently. 3-Partial/Moderate Assistance-helper does LESS THAN HALF the effort. [place] lifts, holds or supports trunk or limbs, but provides less than half the effort. 2-Substantial/Maximal Assistance-helper does MORE THAN HALF the effort. [place] lifts or holds trunk or limbs and provides more than half the effort. 1-Fbewqlzhc-atgvcs does ALL the effort. Patient does none of the effort to complete the activity. Or, the assistance of 2 or more helpers is required for the patient to complete the activity. If activity was not attempted, code reason: 7-Patient Refused. 9-Not Applicable-not attempted and the patient did not perform the activity before the current illness, exacerbation or injury. 10-Not Attempted due to Environmental Limitations-(lack of equipment, weather restraints, etc.). 88-Not Attempted due to Medical Conditions or Safety Concerns. Roll Left to Right (QC): 6 Sit to Lying (QC): 6 Sit to Stand (QC): 6 Chair/Yhm-xz-Qkogr Xfer(QC): 6 Car Transfer (QC): 7 Gait Training Does the Patient Walk?: Yes Distance: 300' x 2 Walk 10 feet (QC): 6 Walk 50 ft with 2 Turns(QC): 6 Walk 150 ft (QC): 5 Walking 10ft/uneven surface-QC: 7 Gait Persons Needed: 1 Gait Assistive Device: FWW Wheelchair Training Does the Pt Use a Wheelchair?: No Wheel 50 ft with 2 turns (QC): 9 Wheel 150 ft (QC): 9 Type of Wheelchair: N/A Stair Training 1 Step (curb) (QC): 7 4 Steps (QC): 7 12 Steps (QC): 7 Balance Picking up an Object (QC): 9 (Pt will use gang hemstitching machine operator to adhere to lumbar precautions) ADL-Treatment Eating (QC): 6 Oral Hygiene (QC): 6 Bathing Location: L Arm, R Arm, L Upper Leg, R Upper Leg, L Lower Leg (including foot), R Lower Leg (including foot), Chest, Abdomen, Perineal Area Shower/Bathe Self (QC): 5 Upper Body Dressing (QC): 5 Lower Body Dressing (QC): 4 On/Off Footwear (QC): 4 Toileting Hygiene (QC): 4 Toilet Transfer (QC): 4 Assessment/Plan Assessment and Plan Assess & Plan/Chief Complaint Assessment: Lumbar spine surgery urgently performed POD # 10 Dr Cortez PSI [place] DM HTN O2 dependent currently Emotional problems Psychosis with narcotics and benzos Post op constipation still a bit constipated but improved Anemia Ears popping- Clartin Dr Calvo consultation Insomnia trial of increased Melatonin and Atarax 10mg Plan: BM regimen Pain control but minimize pain meds Kpad IRF protocol Supportive environment for fragile mental health Insomnia treatment (1) Lumbar stenosis (2) Hx of psychosis (3) History of opioid abuse (4) Diabetes mellitus (5) GERD without esophagitis (6) Malignant hypertension Status: Acute (7) Hypertension Status: Acute (8) Debility Status: Acute (9) Anxiety about health Status: Chronic HUANG LONDON DO March 02, 2020 08:18
[2020-03-02] MEDS: LOSARTAN 100 MG (COZAAR) TABLET PO SCH (09:24)
[2020-03-02] MEDS: FAMOTIDINE 20 MG (PEPCID) TABLET PO SCH (09:24)
[2020-03-02] MEDS: ETODOLAC 300 MG (LODINE) CAP PO SCH ×2 (09:24→20:53)
[2020-03-02] MEDS: SIMETHICONE 80 MG (MYLICON) CHEW PO SCH ×4 (09:25→20:53)
[2020-03-02] MEDS: DULoxetine 30 MG (CYMBALTA) CAP PO SCH (09:25)
[2020-03-02] MEDS: LORATADINE (CLARITIN) 10 MG TAB PO SCH ×2 (09:25→20:53)
[2020-03-02] MEDS: DICLOFENAC 1% GEL 100 GM (VOLTAREN) TUBE TOP SCH ×2 (09:30→20:56)
--- NOTE | 2020-03-02 09:31 | Physical Therapy Daily Note ---
PT Daily Note-Current Subjective Pt reports she did not sleep well last night. She has 6/10 pain in the low back that feels like it is part of the incision. Transfers SCALE: Activities may be completed with or without assistive devices. 7-Svtmsfirmn-enzvcyz completes the activity by him/herself with no assistance from a helper. 5-Set-up or Clean-up Assistance-helper sets up or cleans up; patient completes activity. [place] assists only prior to or following the activity. 4-Supervision or Touching Assistance-helper provides verbal cues and/or touching/steadying and/or contact guard assistance as patient completes activity. Assistance may be provided throughout the activity or intermittently. 3-Partial/Moderate Assistance-helper does LESS THAN HALF the effort. [place] lifts, holds or supports trunk or limbs, but provides less than half the effort. 2-Substantial/Maximal Assistance-helper does MORE THAN HALF the effort. [place] lifts or holds trunk or limbs and provides more than half the effort. 5-Bchifmabz-gvrtpi does ALL the effort. Patient does none of the effort to complete the activity. Or, the assistance of 2 or more helpers is required for the patient to complete the activity. If activity was not attempted, code reason: 7-Patient Refused. 9-Not Applicable-not attempted and the patient did not perform the activity before the current illness, exacerbation or injury. 10-Not Attempted due to Environmental Limitations-(lack of equipment, weather restraints, etc.). 88-Not Attempted due to Medical Conditions or Safety Concerns. Patient out of chair to standing with SBA. Donned back brace with Min A. Weight Bearing Right Lower Extremity: Right Full Weight Bearing Left Lower Extremity: Left Full Weight Bearing Gait Training Gait Assistive Device: FWW Ambulate 300ft x 3 trials all with FWW and SBA. Education on upright posture when using the walker. Discussed walker safety. PT Short Term Goals Short Term Goals Time Frame: March 02, 2020 Roll Left & Right: 6 Sit to lyin Lying to sitting on side of be: 6 Sit to stand: 6 Chair/dys-kk-dthxm transfer: 6 PT Shelter Goals Shelter Goals PT Account Development Specialist Goals Time Frame: Mar 09, 2020 Roll Left & Right (QC): 6 Sit to Lying (QC): 6 Lying-Sitting on Side/Bed(QC): 6 Sit to Stand (QC): 6 Chair/Hrh-ei-Lijnf Xfer(QC): 6 Toilet Transfer (QC): 6 Car Transfer (QC): 6 Does the Patient Walk: Yes Walk 10 feet (QC): 6 Walk 50ft with 2 Turns (QC): 6 Walk 150 ft (QC): 6 Walking 10ft on Uneven Surface: 6 1 Step (curb) (QC): 6 4 Steps (QC): 6 12 Steps (QC): 9 Picking up an Object (QC): 9 Does the Pt use WC or Scooter?: No Wheel 50 feet with 2 turns (QC: 9 Type: N/A Wheel 150 feet: 9 Type: N/A PT Plan Problem List Problem List: Activity Tolerance, Gait Treatment/Plan Treatment Plan: Continue Plan of Care Treatment Plan: Bed Mobility, Education, Functional Activity Tessa, Functional Strength, Group Therapy, Gait, Safety, Therapeutic Exercise, Transfers Treatment Duration: Mar 09, 2020 Frequency: At least 5 of 7 days/Wk (IRF) Estimated Hrs Per Day: 1.5 hours per day Patient and/or Family Agrees t: Yes Time/GCodes Time In: 0900 Time Out: 924 Total Billed Treatment Time: 25 Total Billed Treatment visit, gait 25 min LATRELL VASQUEZ PT March 02, 2020 09:31
[2020-03-02] MEDS: polyethylene glycoL POWDER 17 GM (MIRALAX) PACK PO SCH ×2 (10:01→20:55)
[2020-03-02] MEDS: DOCUSATE SODIUM 100 MG (COLACE) CAP PO SCH ×2 (10:01→20:55)
[2020-03-02] MEDS: SENNA W/DOCUSATE (SENOKOT S) TABLET PO SCH ×2 (10:01→20:55)
[2020-03-02] MEDS: CALCIUM CARBONATE 500 MG (TUMS) TAB.CHEW PO PRN ×2 (14:45→20:15)
[2020-03-02 17:33] VITALS: BP 122/70
[2020-03-02] MEDS: SIMvastatin 10 MG (ZOCOR) TAB PO SCH (20:53)
[2020-03-02] MEDS: amLODIPine 10 MG (NORVASC) TAB PO SCH (20:53)
[2020-03-02] MEDS: MELATONIN 3 MG TABLET PO SCH (20:53)
[2020-03-03] MEDS: GABAPENTIN 300 MG (NEURONTIN) CAP PO SCH ×4 (02:33→18:00)
[2020-03-03] MEDS: ACETAMINOPHEN 500 MG TAB (TYLENOL) PO PRN ×3 (03:32→20:30)
[2020-03-03] MEDS: ANTACID SUSP 30 ML UDC (MYLANTA) PO PRN ×2 (03:32→09:09)
[2020-03-03 06:23] VITALS: BP 137/81
[2020-03-03] MEDS: inSUlin ASPART (NovoLOG) 1 UNIT/0.01 ML (CHARGE PER UNIT) SC SCH ×4 (06:27→20:27)
[2020-03-03] MEDS: DICLOFENAC 1% GEL 100 GM (VOLTAREN) TUBE TOP SCH ×2 (09:02→20:27)
[2020-03-03] MEDS: LOSARTAN 100 MG (COZAAR) TABLET PO SCH (09:03)
[2020-03-03] MEDS: DULoxetine 30 MG (CYMBALTA) CAP PO SCH (09:03)
[2020-03-03] MEDS: LORATADINE (CLARITIN) 10 MG TAB PO SCH ×2 (09:03→20:24)
[2020-03-03] MEDS: FAMOTIDINE 20 MG (PEPCID) TABLET PO SCH (09:03)
[2020-03-03] MEDS: ETODOLAC 300 MG (LODINE) CAP PO SCH ×2 (09:03→20:24)
[2020-03-03] MEDS: SIMETHICONE 80 MG (MYLICON) CHEW PO SCH ×4 (09:03→20:25)
[2020-03-03] MEDS: SENNA W/DOCUSATE (SENOKOT S) TABLET PO SCH ×2 (09:05→20:27)
[2020-03-03] MEDS: polyethylene glycoL POWDER 17 GM (MIRALAX) PACK PO SCH ×2 (09:05→20:27)
[2020-03-03] MEDS: DOCUSATE SODIUM 100 MG (COLACE) CAP PO SCH ×2 (09:06→20:27)
[2020-03-03] MEDS: ALPRAZolam 0.25 MG (XANAX) TAB PO PRN ×2 (09:09→20:26)
--- NOTE | 2020-03-03 09:14 | PM&R Progress Note ---
Subjective HPI/CC On Admission Date Seen by Provider: March 03, 2020 Time Seen by Provider: 09:15 Subjective/Events-last exam Insomnia still an issue Pain is well controlled on APAP but today she reports she has a lot of pain Working with PT and preparing for DC next week but she seems to be frightened about going home Uses nursing staff a lot for a lot of ADL's Bowels are moving very well Denies any significant other issues except she appears to be very nervous and frightened and she declines psych treatment DC is planned for March 05 Checked meds and labs Conferred with RN Reviewed therapy notes Review of Systems General: Fatigue Musculoskeletal: back pain Objective Exam Vital Signs Vital Signs Date Time Temp Pulse Resp B/P (MAP) Pulse Ox O2 Delivery O2 Flow Rate FiO2 03/03/20 08:49 Room Air 03/03/20 06:23 36.8 92 18 137/81 (99) 95 02/26/20 06:05 2.00 Capillary Refill : Less Than 3 Seconds General Appearance: No Apparent Distress, WD/WN, Chronically ill HEENT: PERRL/EOMI, Normal ENT Inspection, Pharynx Normal Neck: Full Range of Motion, Normal Inspection, Non Tender, Supple, Carotid Bruit Respiratory: Chest Non Tender, Lungs Clear, Normal Breath Sounds, No Accessory Muscle Use, No Respiratory Distress Cardiovascular: Regular Rate, Rhythm, No Edema, No Gallop, No JVD, No Murmur, Normal Peripheral Pulses Gastrointestinal: Normal Bowel Sounds, No Organomegaly, No Pulsatile Mass, Non Tender, Soft Back: Normal Inspection, Decreased Range of Motion, Muscle Spasm, Vertebral Tenderness Extremity: Normal Capillary Refill, Normal Inspection, Normal Range of Motion, Non Tender, No Calf Tenderness, No Pedal Edema Neurologic/Psychiatric: Alert, Oriented x3, No Motor/Sensory Deficits, Normal Mood/Affect, customer service advisor II-XII Norm as Tested, Other (anxiety) Skin: Normal Color, Warm/Dry Lymphatic: No Adenopathy Results/Procedures Lab Patient resulted labs reviewed. FIM Transfers Therapy Code Descriptions/Definitions Functional [place] Measure: 0=Not Assessed/NA 4=Minimal Assistance 1=Total Assistance 5=Supervision or Setup 2=Maximal Assistance 6=Modified [place] 3=Moderate Assistance 7=Complete IndependenceSCALE: Activities may be completed with or without assistive devices. 9-Lslvvannxq-itdkjpw completes the activity by him/herself with no assistance from a helper. 5-Set-up or Clean-up Assistance-helper sets up or cleans up; patient completes activity. [place] assists only prior to or following the activity. 4-Supervision or Touching Assistance-helper provides verbal cues and/or touching/steadying and/or contact guard assistance as patient completes activity. Assistance may be provided throughout the activity or intermittently. 3-Partial/Moderate Assistance-helper does LESS THAN HALF the effort. [place] lifts, holds or supports trunk or limbs, but provides less than half the effort. 2-Substantial/Maximal Assistance-helper does MORE THAN HALF the effort. [place] lifts or holds trunk or limbs and provides more than half the effort. 6-Dilmtwfjv-ecjdoj does ALL the effort. Patient does none of the effort to complete the activity. Or, the assistance of 2 or more helpers is required for the patient to complete the activity. If activity was not attempted, code reason: 7-Patient Refused. 9-Not Applicable-not attempted and the patient did not perform the activity before the current illness, exacerbation or injury. 10-Not Attempted due to Environmental Limitations-(lack of equipment, weather restraints, etc.). 88-Not Attempted due to Medical Conditions or Safety Concerns. Roll Left to Right (QC): 6 Sit to Lying (QC): 6 Sit to Stand (QC): 6 Chair/Jte-qt-Olecw Xfer(QC): 6 Car Transfer (QC): 7 Gait Training Does the Patient Walk?: Yes Distance: 300' x 2 Walk 10 feet (QC): 6 Walk 50 ft with 2 Turns(QC): 6 Walk 150 ft (QC): 5 Walking 10ft/uneven surface-QC: 7 Gait Persons Needed: 1 Gait Assistive Device: FWW Wheelchair Training Does the Pt Use a Wheelchair?: No Wheel 50 ft with 2 turns (QC): 9 Wheel 150 ft (QC): 9 Type of Wheelchair: N/A Stair Training 1 Step (curb) (QC): 7 4 Steps (QC): 7 12 Steps (QC): 7 Balance Picking up an Object (QC): 9 (Pt will use laboratory miller to adhere to lumbar precautions) ADL-Treatment Eating (QC): 6 Oral Hygiene (QC): 6 Bathing Location: L Arm, R Arm, L Upper Leg, R Upper Leg, L Lower Leg (includ ing foot), R Lower Leg (including foot), Chest, Abdomen, Perineal Area Shower/Bathe Self (QC): 5 Upper Body Dressing (QC): 5 Lower Body Dressing (QC): 4 On/Off Footwear (QC): 4 Toileting Hygiene (QC): 4 Toilet Transfer (QC): 4 Assessment/Plan Assessment and Plan Assess & Plan/Chief Complaint Assessment: Lumbar spine surgery urgently performed POD # 11 Dr Cortez PSI [place] DM HTN O2 dependent currently Emotional problems Psychosis with narcotics and benzos Post op constipation still a bit constipated but improved Anemia Ears popping- Clartin Dr Calvo consultation Insomnia trial of increased Melatonin and Atarax 10mg Plan: BM regimen Pain control but minimize pain meds Kpad IRF protocol Supportive environment for fragile mental health Insomnia treatment Fragile psych issues currently (1) Lumbar stenosis (2) Hx of psychosis (3) History of opioid abuse (4) Diabetes mellitus (5) GERD without esophagitis (6) Malignant hypertension Status: Acute (7) Hypertension Status: Acute (8) Debility Status: Acute (9) Anxiety about health Status: Chronic HUANG LONDON DO March 03, 2020 09:14
[2020-03-03 17:19] VITALS: BP 95/58
[2020-03-03 17:41] VITALS: BP 112/62
[2020-03-03] MEDS: SIMvastatin 10 MG (ZOCOR) TAB PO SCH (20:25)
[2020-03-03] MEDS: amLODIPine 10 MG (NORVASC) TAB PO SCH (20:25)
[2020-03-03] MEDS: MELATONIN 3 MG TABLET PO SCH (20:25)
[2020-03-04] MEDS: GABAPENTIN 300 MG (NEURONTIN) CAP PO SCH ×4 (00:04→18:10)
[2020-03-04] MEDS: ANTACID SUSP 30 ML UDC (MYLANTA) PO PRN ×2 (04:35→23:35)
[2020-03-04] MEDS: inSUlin ASPART (NovoLOG) 1 UNIT/0.01 ML (CHARGE PER UNIT) SC SCH ×4 (05:14→20:46)
[2020-03-04 06:00] VITALS: BP 120/74
--- NOTE | 2020-03-04 06:47 | PM&R Progress Note ---
Subjective HPI/CC On Admission Date Seen by Provider: Mar 04, 2020 Time Seen by Provider: 10:30 Subjective/Events-last exam Bowels really moved well today GERD treatment of Simethicone and Tums has really helped her, she doesn't have any back or abdominal pain today Had a little bit of confusion unsure what that was from Pt lucid and oriented x3 now DC is planned for March 05 Checked meds and labs Conferred with RN Reviewed therapy notes Review of Systems General: Fatigue Gastrointestinal: Abdominal Pain Musculoskeletal: back pain Objective Exam Vital Signs Vital Signs Date Time Temp Pulse Resp B/P (MAP) Pulse Ox O2 Delivery O2 Flow Rate FiO2 03/04/20 16:55 83 101/64 (76) 03/04/20 16:32 36.4 16 97 Room Air Capillary Refill : Less Than 3 Seconds General Appearance: No Apparent Distress, WD/WN, Chronically ill HEENT: PERRL/EOMI, Normal ENT Inspection, Pharynx Normal Neck: Full Range of Motion, Normal Inspection, Non Tender, Supple, Carotid Bruit Respiratory: Chest Non Tender, Lungs Clear, Normal Breath Sounds, No Accessory Muscle Use, No Respiratory Distress Cardiovascular: Regular Rate, Rhythm, No Edema, No Gallop, No JVD, No Murmur, Normal Peripheral Pulses Gastrointestinal: Normal Bowel Sounds, No Organomegaly, No Pulsatile Mass, Non Tender, Soft Back: Normal Inspection, Decreased Range of Motion, Muscle Spasm, Vertebral Tenderness Extremity: Normal Capillary Refill, Normal Inspection, Normal Range of Motion, Non Tender, No Calf Tenderness, No Pedal Edema Neurologic/Psychiatric: Alert, Oriented x3, No Motor/Sensory Deficits, Normal M ood/Affect, fish conservationist II-XII Norm as Tested, Other (anxiety) Skin: Normal Color, Warm/Dry Lymphatic: No Adenopathy Results/Procedures Lab Laboratory Tests 03/04/20 06:35 Patient resulted labs reviewed. FIM Transfers Therapy Code Descriptions/Definitions Functional [place] Measure: 0=Not Assessed/NA 4=Minimal Assistance 1=Total Assistance 5=Supervision or Setup 2=Maximal Assistance 6=Modified [place] 3=Moderate Assistance 7=Complete IndependenceSCALE: Activities may be completed with or without assistive devices. 4-Uxuxxjocco-oivwjyh completes the activity by him/herself with no assistance from a helper. 5-Set-up or Clean-up Assistance-helper sets up or cleans up; patient completes activity. [place] assists only prior to or following the activity. 4-Supervision or Touching Assistance-helper provides verbal cues and/or touching/steadying and/or contact guard assistance as patient completes activity. Assistance may be provided throughout the activity or intermittently. 3-Partial/Moderate Assistance-helper does LESS THAN HALF the effort. [place] lifts, holds or supports trunk or limbs, but provides less than half the effort. 2-Substantial/Maximal Assistance-helper does MORE THAN HALF the effort. [place] lifts or holds trunk or limbs and provides more than half the effort. 1-Dgzxnrtzo-bkjzii does ALL the effort. Patient does none of the effort to complete the activity. Or, the assistance of 2 or more helpers is required for the patient to complete the activity. If activity was not attempted, code reason: 7-Patient Refused. 9-Not Applicable-not attempted and the patient did not perform the activity before the current illness, exacerbation or injury. 10-Not Attempted due to Environmental Limitations-(lack of equipment, weather restraints, etc.). 88-Not Attempted due to Medical Conditions or Safety Concerns. Roll Left to Right (QC): 6 Sit to Lying (QC): 6 Sit to Stand (QC): 6 Chair/Mds-rs-Jwsnq Xfer(QC): 6 Car Transfer (QC): 7 Gait Training Does the Patient Walk?: Yes Distance: 300' x 2 Walk 10 feet (QC): 6 Walk 50 ft with 2 Turns(QC): 6 Walk 150 ft (QC): 5 Walking 10ft/uneven surface-QC: 7 Gait Persons Needed: 1 Gait Assistive Device: FWW Wheelchair Training Does the Pt Use a Wheelchair?: No Wheel 50 ft with 2 turns (QC): 9 Wheel 150 ft (QC): 9 Type of Wheelchair: N/A Stair Training 1 Step (curb) (QC): 7 4 Steps (QC): 7 12 Steps (QC): 7 Balance Picking up an Object (QC): 9 (Pt will use bark grinder to adhere to lumbar precautions) ADL-Treatment Eating (QC): 6 Oral Hygiene (QC): 6 Bathing Location: L Arm, R Arm, L Upper Leg, R Upper Leg, L Lower Leg (inclu ding foot), R Lower Leg (including foot), Chest, Abdomen, Perineal Area Shower/Bathe Self (QC): 5 Upper Body Dressing (QC): 5 Lower Body Dressing (QC): 4 On/Off Footwear (QC): 4 Toileting Hygiene (QC): 4 Toilet Transfer (QC): 4 Assessment/Plan Assessment and Plan Assess & Plan/Chief Complaint Assessment: Lumbar spine surgery urgently performed POD # 12 Dr Cortez PSI [place] DM HTN O2 dependent currently Emotional problems Psychosis with narcotics and benzos Post op constipation still a bit constipated but improved Anemia Ears popping- [place] Dr Calvo consultation Insomnia trial of increased Melatonin and Atarax 10mg GERD Plan: BM regimen Pain control but minimize pain meds Kpad IRF protocol Supportive environment for fragile mental health Insomnia treatment Fragile psych issues currently DC on HH GERD tx (1) Lumbar stenosis (2) Hx of psychosis (3) History of opioid abuse (4) Diabetes mellitus (5) GERD without esophagitis (6) Malignant hypertension Status: Acute (7) Hypertension Status: Acute (8) Debility Status: Acute (9) Anxiety about health Status: Chronic HUANG LONDON DO Mar 04, 2020 06:47
[2020-03-04 06:56] LABS: WHITE BLOOD COUNT 8.7 10^3/uL (4.3-11.0)
[2020-03-04 06:57] LABS: BASOPHILS % (AUTO) 0 % (0-10); EOSINOPHILS # (AUTO) 0.3 10^3/uL (0.0-0.3); EOSINOPHILS % (AUTO) 3 % (0-10); HEMATOCRIT 33 % (35-52); HEMOGLOBIN 10.4 G/DL (11.5-16.0); LYMPHOCYTES # (AUTO) 1.9 X 10^3 (1.0-4.0); LYMPHOCYTES % (AUTO) 22 % (12-44); MEAN CORPUSCULAR HEMOGLOBIN 29 PG (25-34); MEAN CORPUSCULAR HGB CONC 31 G/DL (32-36); MEAN CORPUSCULAR VOLUME 93 FL (80-99); MEAN PLATELET VOLUME 9.3 FL (7.4-10.4); MONOCYTES # (AUTO) 0.7 X 10^3 (0.0-1.0); MONOCYTES % (AUTO) 8 % (0-12); NEUTROPHILS # (AUTO) 5.8 X 10^3 (1.8-7.8); NEUTROPHILS % (AUTO) 67 % (42-75); PLATELET COUNT 365 10^3/uL (130-400); RED CELL DISTRIBUTION WIDTH 15.4 % (10.0-14.5)
[2020-03-04 07:04] LABS: ALBUMIN 3.4 GM/DL (3.2-4.5); POTASSIUM 5.2 MMOL/L (3.6-5.0)
[2020-03-04 07:06] LABS: CALCIUM 9.2 MG/DL (8.5-10.1)
[2020-03-04 07:07] LABS: TOTAL PROTEIN 6.5 GM/DL (6.4-8.2)
[2020-03-04 07:09] LABS: BILIRUBIN,TOTAL 0.4 MG/DL (0.1-1.0)
[2020-03-04 07:10] LABS: CREATININE SERUM 1.41 MG/DL (0.60-1.30)
[2020-03-04 09:19] VITALS: BP 95/57
[2020-03-04] MEDS: LORATADINE (CLARITIN) 10 MG TAB PO SCH ×2 (09:41→20:56)
[2020-03-04] MEDS: SIMETHICONE 80 MG (MYLICON) CHEW PO SCH ×4 (09:41→20:46)
[2020-03-04] MEDS: DULoxetine 30 MG (CYMBALTA) CAP PO SCH (09:41)
[2020-03-04] MEDS: FAMOTIDINE 20 MG (PEPCID) TABLET PO SCH (09:41)
[2020-03-04] MEDS: ACETAMINOPHEN 500 MG TAB (TYLENOL) PO PRN ×2 (09:41→18:10)
[2020-03-04] MEDS: polyethylene glycoL POWDER 17 GM (MIRALAX) PACK PO SCH ×2 (09:42→20:56)
[2020-03-04] MEDS: LOSARTAN 100 MG (COZAAR) TABLET PO SCH (09:42)
[2020-03-04] MEDS: ETODOLAC 300 MG (LODINE) CAP PO SCH ×2 (09:42→20:45)
[2020-03-04] MEDS: DOCUSATE SODIUM 100 MG (COLACE) CAP PO SCH ×2 (09:42→20:56)
[2020-03-04] MEDS: SENNA W/DOCUSATE (SENOKOT S) TABLET PO SCH ×2 (09:43→20:56)
[2020-03-04] MEDS: DICLOFENAC 1% GEL 100 GM (VOLTAREN) TUBE TOP SCH ×2 (09:44→20:53)
--- NOTE | 2020-03-04 10:20 | NUR ---
DR. LONDON HERE. INFORMED OF POTASSIUM- 5.3, BP 95/57, HR 91. ALSO INFORMED OF CONTINUED C/O INDIGESTION. ORDERS TO PUT COZAAR ON HOLD.
--- NOTE | 2020-03-04 10:33 | Physical Therapy Daily Note ---
PT Daily Note-Current Subjective Pt. agrees to Rx. States she had been so pleased with the chair this STORAGE BATTERY INSPECTOR AND TESTER had set her up in the other day but it broke and this is a new recliner and it is not comfortable at all. Pt. initially states she is dizzy when on her feet but feels better as times passes and she is active. rates pain in back at 2/10 Pain Numeric Pain Scale: 2 Location: Medial, Lower Location Body Site: Back Pain Description: Tightness Mental Status Patient Orientation: Normal For Age Attachments: Other-See Comments (back brace) Transfers SCALE: Activities may be completed with or without assistive devices. 7-Qqfutsdoan-purrfcb completes the activity by him/herself with no assistance from a helper. 5-Set-up or Clean-up Assistance-helper sets up or cleans up; patient completes activity. [place] assists only prior to or following the activity. 4-Supervision or Touching Assistance-helper provides verbal cues and/or touching/steadying and/or contact guard assistance as patient completes activity. Assistance may be provided throughout the activity or intermittently. 3-Partial/Moderate Assistance-helper does LESS THAN HALF the effort. [place] lifts, holds or supports trunk or limbs, but provides less than half the effort. 2-Substantial/Maximal Assistance-helper does MORE THAN HALF the effort. [place] lifts or holds trunk or limbs and provides more than half the effort. 8-Gfnryjipc-vdrgbc does ALL the effort. Patient does none of the effort to complete the activity. Or, the assistance of 2 or more helpers is required for the patient to complete the activity. If activity was not attempted, code reason: 7-Patient Refused. 9-Not Applicable-not attempted and the patient did not perform the activity before the current illness, exacerbation or injury. 10-Not Attempted due to Environmental Limitations-(lack of equipment, weather restraints, etc.). 88-Not Attempted due to Medical Conditions or Safety Concerns. Roll Left & Right (QC): 6 Sit to Lying (QC): 6 Lying to Sitting/Side of Bed(Q: 6 Sit to Stand (QC): 6 Chair/Fby-ls-Xbglc Xfer(QC): 6 Toilet Transfer (QC): 6 Car Transfer (QC): 5 educated and instructed in safe car TRF, pt. then demonstrating this with CGA and cues Weight Bearing Right Lower Extremity: Right Full Weight Bearing Left Lower Extremity: Left Full Weight Bearing Gait Training Does the Patient Walk?: Yes Walk 10 feet (QC): 6 Walk 50 ft with 2 Turns(QC): 6 Walk 150 ft (QC): 6 Gait Persons Needed: 1 Gait Assistive Device: FWW flexed at trunk somewhat Stair Training Stair Training: Handrails/: 2 handrails #of Steps: 4 4 Steps (QC): 4 Stairs: Pattern: Step to instructed in proper sequence and weight bearing for safety on steps, pt. will have assist at home for this and has a ramp as well Balance Picking up an Object (QC): 88 Exercises Supine Ex: Ankle pumps, Quad Set, Rolling, Glut sets, Heel Slides, Short Arc Quads, Scooting, Hip abd/add Supine Reps: 20 Seated Therapy Exercises: Ankle pumps, Sit to stand, Long arc quads, Hip flexion, Hip abd/add Seated Reps: 15 pt. also completed 15 reps leg presses on Nustep NuStep Minutes: 10 NuStep Workload: 4 Treatments toileted with assist for cleaning after BM as pt. could not thoroughly reach and clean self. Recliner in pts room was switched for recliner that she felt far more comfortable in and could manuever to get to near zero gravity position. Upon entering room as pt. c/o dizziness BP was monitored at 112/53, HR 96, pt. did tolerate on feet position for TRF to recliner and BP then elevated to 114/60. All positions were tolerated well for Rx. Assessment Current Status: Good Progress good progress in phases of functional mobility PT Short Term Goals Short Term Goals Time Frame: March 02, 2020 Roll Left & Right: 6 Sit to lyin Lying to sitting on side of be: 6 Sit to stand: 6 Chair/ltv-bu-jvspx transfer: 6 PT Senior Care Goals Sport Shoe Spike Assembler Goals PT Senior Care Goals Time Frame: Mar 09, 2020 Roll Left & Right (QC): 6 Sit to Lying (QC): 6 Lying-Sitting on Side/Bed(QC): 6 Sit to Stand (QC): 6 Chair/Xmi-zt-Vnbsw Xfer(QC): 6 Toilet Transfer (QC): 6 Car Transfer (QC): 6 Does the Patient Walk: Yes Walk 10 feet (QC): 6 Walk 50ft with 2 Turns (QC): 6 Walk 150 ft (QC): 6 Walking 10ft on Uneven Surface: 6 1 Step (curb) (QC): 6 4 Steps (QC): 6 12 Steps (QC): 9 Picking up an Object (QC): 9 Does the Pt use WC or Scooter?: No Wheel 50 feet with 2 turns (QC: 9 Type: N/A Wheel 150 feet: 9 Type: N/A PT Plan Treatment/Plan Treatment Plan: Continue Plan of Care Treatment Plan: Bed Mobility, Education, Functional Activity Tessa, Functional Strength, Group Therapy, Gait, Safety, Therapeutic Exercise, Transfers Treatment Duration: Mar 09, 2020 Frequency: At least 5 of 7 days/Wk (IRF) Estimated Hrs Per Day: 1.5 hours per day Patient and/or Family Agrees t: Yes Safety Risks/Education Patient Education: Gait Training, Transfer Techniques, Steps, Correct Positioning, Disease Process, Safety Issues Teaching Recipient: Patient Teaching Methods: Demonstration, Discussion Response to Teaching: Verbalize Understanding, Return Demonstration, Reinforcement Needed Time/GCodes Time In: 900 Time Out: 1030 Total Billed Treatment Time: 90 Total Billed Treatment 1,GT30m,FA30m,EX30m LAUREN VIGIL STORAGE BATTERY INSPECTOR AND TESTER Mar 04, 2020 10:33
--- NOTE | 2020-03-04 11:09 | Occupational Ther Daily Note ---
OT Current Status-Daily Note Subjective Pt alert, lying in bed. Pt stated that she does not feel well. Per nrsg blood sugar normal. BP in supine (92/63), EOB (116/62). Pt agrees to participate in therapy. Pt c/o a variety of aches and pains throughout treatment, reported to nrsg. QC's completed today. Mental Status/Objective Patient Orientation: Person, Place, Time, Situation ADL-Treatment Pt able to go from supine to EOB by self. Ambulated to bathroom to toilet, mod I. Mod I for toilet transfer. Pt able to manipulate clothing by self, cleansed self with toilet tongs though inefficient. Pt stated that her will be able to assist cleansing if needed. Transferred into shower, mod I. Pt completed shower, mod I. After set up, pt able to don/doff back brace. After set up, pt able to complete upper body dressing. After set up, pt able to complete lower body dressing. Used sock aide to don socks, dressing stick to doff socks. Stood at sink to complete oral care and grooming, mod I. Therapy Code Descriptions/Definitions Functional [place] Measure: 0=Not Assessed/NA 4=Minimal Assistance 1=Total Assistance 5=Supervision or Setup 2=Maximal Assistance 6=Modified [place] 3=Moderate Assistance 7=Complete IndependenceSCALE: Activities may be completed with or without assistive devices. 1-Szbygutzgy-hqbeedf completes the activity by him/herself with no assistance from a helper. 5-Set-up or Clean-up Assistance-helper sets up or cleans up; patient completes activity. [place] assists only prior to or following the activity. 4-Supervision or Touching Assistance-helper provides verbal cues and/or touching/steadying and/or contact guard assistance as patient completes activity. Assistance may be provided throughout the activity or intermittently. 3-Partial/Moderate Assistance-helper does LESS THAN HALF the effort. [place] lifts, holds or supports trunk or limbs, but provides less than half the effort. 2-Substantial/Maximal Assistance-helper does MORE THAN HALF the effort. [place] lifts or holds trunk or limbs and provides more than half the effort. 7-Flwaovilc-lwtvkn does ALL the effort. Patient does none of the effort to complete the activity. Or, the assistance of 2 or more helpers is required for the patient to complete the activity. If activity was not attempted, code reason: 7-Patient Refused. 9-Not Applicable-not attempted and the patient did not perform the activity before the current illness, exacerbation or injury. 10-Not Attempted due to Environmental Limitations-(lack of equipment, weather restraints, etc.). 88-Not Attempted due to Medical Conditions or Safety Concerns. Eating (QC): 6 (Per clinical judgement, pt able to set own self up and use re gular utensils to eat.) Oral Hygiene (QC): 6 Shower/Bathe Self (QC): 6 Upper Body Dressing (QC): 5 Lower Body Dressing (QC): 5 On/Off Footwear: 5 Toileting Hygiene (QC): 3 Toilet Transfer (QC): 6 Other Treatment Pt ambulated to therapy gym to complete B UE exercises to increase strengthen and activity tolerance for daily functional tasks. Arm bike at 20 gutierrez resistance for 8 min. Resistive clothespins, 1x each hand. Medium resistance theraband exercises, 6 exercises 2 sets 10 reps. HEP and theraband given to pt. After therapy, pt sitting in recliner with call light/phone in reach. All needs met in room. OT [facility] Goals A&P Technician Goals Time Frame: Mar 09, 2020 Eating (QC): 6 Oral Hygiene (QC): 6 Toileting Hygiene (QC): 6 Shower/Bathe Self (QC): 6 Upper Body Dressing (QC): 6 Lower Body Dressing (QC): 6 On/Off Footwear (QC): 6 Additional Goals: 1-Demonstrate ADL Tasks, 2-Verbalize Understanding, 3- ImproveStrength/Tessa 1=Demonstrate adherence to instructed precautions during ADL tasks. 2=Patient will verbalize/demonstrate understanding of assistive devices/modifications for ADL. 3=Patient will improve strength/tolerance for activity to enable patient to perform ADL's. OT Education/Plan Problem List/Assessment Assessment: Decreased UE Strength, Impaired Self-Care Skills Discharge Recommendations Plan/Recommendations: Continue POC Treatment Plan/Plan of Care Patient would benefit from OT for education, treatment and training to promote independence in ADL's, mobility, safety and/or upper extremity function for ADL's. Plan of Care: ADL Retraining, Caregiver Training, Concurrent Therapy, Functional Mobility, Group Exercise/Act as Ind, UE Funct Exercise/Act Treatment Duration: Mar 09, 2020 Frequency: At least 5 of 7 days/Wk (IRF) Estimated Hrs Per Day: 1.5 hours per day Agreement: Yes Rehab Potential: Good Time/GCodes Start Time: 07:30 Stop Time: 09:00 Total Time Billed (hr/min): 90 Billed Treatment Time 1 visit-ADL 4 (60 min) EX 2 (30 min) [place] Mar 04, 2020 11:09
--- NOTE | 2020-03-04 11:22 | NUR ---
F/U WITH DR. CASTRO ON 03/06/20 AT 2:15 PM. CELI WILL BE REMOVED AT APPOINTMENT.
--- NOTE | 2020-03-04 14:38 | NUR ---
SPOKE TO DR. MORALES RE: CONTINUED C/O INDIGESTION. PATIENT TAKING PEPCID, SIMETHICONE, TUMS, AND MYLANTA. ALSO INFORMED OF POTASSIUM- 5.3 AND LOW BP THIS AM (COZAAR CURRENTLY ON HOLD PER DR. LONDON). DR. MORALES OK WITH ABOVE AND ORDERS TO ADD CARAFATE- 1 GM PO TID. BMP AND MAG IN THE AM.
[2020-03-04 16:32] VITALS: BP 100/69
[2020-03-04 16:55] VITALS: BP 101/64
[2020-03-04] MEDS: SUCRALFATE 1 GM (CARAFATE) TAB PO SCH (17:04)
--- NOTE | 2020-03-04 19:12 | NUR ---
bedside report received from HAILEY BAPTISTE, assume care of pt
[2020-03-04] MEDS: MELATONIN 3 MG TABLET PO SCH (20:45)
[2020-03-04] MEDS: SIMvastatin 10 MG (ZOCOR) TAB PO SCH (20:45)
--- NOTE | 2020-03-04 20:45 | NUR ---
pt refused Colace, miralax, Senokot & pt felt b/p 114/72 was too low for Norvasc, fsbs 231 NovoLog 3 units given
[2020-03-04 20:52] VITALS: BP 114/72
[2020-03-04] MEDS: amLODIPine 10 MG (NORVASC) TAB PO SCH (20:56)
[2020-03-04] MEDS ORDERED: LORA10TA7 PO (22:02)
[2020-03-04] MEDS ORDERED: METO-333 PO (22:02)
[2020-03-04] MEDS ORDERED: SENN-20 PO (22:02)
[2020-03-04] MEDS ORDERED: FAMO20TA5 PO (22:02)
[2020-03-04] MEDS ORDERED: SUCR1TAB PO (22:02)
--- NOTE | 2020-03-04 22:06 | D/C HH Face to Face Order ---
D/C Face to Face Orders Reconcile Patient Problems Problems Reviewed?: Yes Instructions for Patient [facility] Patient Instructions/FollowUp: Dr Camejo in 1 week Physician to follow Patient: Nell Discharge Diet for Home: No Restrictions Patient Problems: Back surgery Emotional problems Patient Data-Allergies,Ht & Wt Patient Allergies: Coded Allergies: clonidine (Verified Allergy, Unknown, NAUSEA, 03/14/19) Penicillins (Unverified Adverse Reaction, Intermediate, 03/14/19) Sulfa (Sulfonamide Antibiotics) (Unverified Adverse Reaction, Intermediate, 03/14/19) Uncoded Allergies: ivp dye (Adverse Reaction, Intermediate, 09/15/13) Height (Feet): 5 Height (Inches): 7.00 Weight (Pounds): 180 Weight (Ounces): 0.8 Home Health Need/Face to Face Date of Face to Face: Mar 04, 2020 Clinical Findings: Generalized weakness and fatigue, Instability, Muscle weakness, Pain with ambulation, Shortness of breath, Unsteady gait I have seen Pt riel-lv-fmjs: Yes Discharged To: Home Diagnosis/Conditions: Back surgery Patient is Homebound due to: [place] fall risk due to instabilty, Muscle weakness, Pain w/ambulation Homebound Status Due to the above stated illness, injury or surgical procedure (medical condition or diagnosis) and associated clinical findings, the patient is homebound because of his/her inability to leave home except with aid of a supportive device and/or person AND leaving the home requires a considerable and taxing effort or is medically contraindicated. Pt req the following assistanc: Walker Home Health Nursing Orders Home Health Services Order: Nursing Services, Physical Therapy-Evaluate & Treat Certify Stmt I certify that this patient is under my care and that I, a nurse practitioner or a physician; a operations and intelligence assistant working with me, had a face to face encounter that - meets the physician face to face encounter requirements with this patient as dated. HUANG LONDON DO Mar 04, 2020 22:06
[2020-03-05] MEDS: GABAPENTIN 300 MG (NEURONTIN) CAP PO SCH ×3 (00:31→13:13)
[2020-03-05] MEDS: CALCIUM CARBONATE 500 MG (TUMS) TAB.CHEW PO PRN ×2 (01:21→08:27)
[2020-03-05] MEDS: ACETAMINOPHEN 500 MG TAB (TYLENOL) PO PRN ×2 (02:18→13:14)
--- NOTE | 2020-03-05 02:18 | NUR ---
c/o abd & back pain, level 4/10 on numeric scale, Tylenol 1000mg given
--- NOTE | 2020-03-05 03:15 | NUR ---
resting quietly in bed, pain level 0/10 on CNPI scale
--- NOTE | 2020-03-05 03:45 | NUR ---
up ambulating with walker in torres to help with gas discomfort, then up in the chair
[2020-03-05] MEDS: ANTACID SUSP 30 ML UDC (MYLANTA) PO PRN ×2 (04:56→09:15)
[2020-03-05 05:15] VITALS: BP 114/74
[2020-03-05 05:48] LABS: POTASSIUM 5.3 MMOL/L (3.6-5.0)
[2020-03-05 05:54] LABS: CREATININE SERUM 1.62 MG/DL (0.60-1.30)
[2020-03-05 05:56] LABS: MAGNESIUM 2.4 MG/DL (1.6-2.4)
[2020-03-05] MEDS: inSUlin ASPART (NovoLOG) 1 UNIT/0.01 ML (CHARGE PER UNIT) SC SCH ×2 (06:00→11:47)
[2020-03-05] MEDS: SUCRALFATE 1 GM (CARAFATE) TAB PO SCH ×2 (06:35→11:44)
[2020-03-05] MEDS: LORATADINE (CLARITIN) 10 MG TAB PO SCH (08:26)
[2020-03-05] MEDS: DULoxetine 30 MG (CYMBALTA) CAP PO SCH (08:27)
[2020-03-05] MEDS: FAMOTIDINE 20 MG (PEPCID) TABLET PO SCH (08:27)
[2020-03-05] MEDS: polyethylene glycoL POWDER 17 GM (MIRALAX) PACK PO SCH (08:28)
[2020-03-05] MEDS: DOCUSATE SODIUM 100 MG (COLACE) CAP PO SCH (08:28)
[2020-03-05] MEDS: SENNA W/DOCUSATE (SENOKOT S) TABLET PO SCH (08:28)
[2020-03-05] MEDS: DICLOFENAC 1% GEL 100 GM (VOLTAREN) TUBE TOP SCH (08:28)
[2020-03-05] MEDS: ETODOLAC 300 MG (LODINE) CAP PO SCH (08:34)
[2020-03-05] MEDS: SIMETHICONE 80 MG (MYLICON) CHEW PO SCH ×2 (08:34→13:13)
--- NOTE | 2020-03-05 08:53 | Discharge Summary ---
Diagnosis/Chief Complaint Date of Admission February 24, 2020 at 11:00 Date of Discharge Discharge Date: Mar 05, 2020 Discharge Diagnosis Assessment: Lumbar spine surgery urgently performed POD # 11 Dr Cortez [facility] DM HTN O2 dependent currently Emotional problems Psychosis with narcotics and benzos Post op constipation still a bit constipated but improved Anemia Ears popping- [place] Dr Calvo consultation Insomnia trial of increased Melatonin and Atarax 10mg Plan: BM regimen Pain control but minimize pain meds [facility] IRF protocol Supportive environment for fragile mental health Insomnia treatment (1) Lumbar stenosis (2) Hx of psychosis (3) History of opioid abuse (4) Diabetes mellitus (5) GERD without esophagitis (6) Malignant hypertension Status: Acute (7) Hypertension Status: Acute (8) Debility Status: Acute (9) Anxiety about health Status: Chronic Discharge Summary Discharge Physical Examination Allergies: Coded Allergies: clonidine (Verified Allergy, Unknown, NAUSEA, 03/14/19) Penicillins (Unverified Adverse Reaction, Intermediate, 03/14/19) Sulfa (Sulfonamide Antibiotics) (Unverified Adverse Reaction, Intermediate, 03/14/19) Uncoded Allergies: ivp dye (Adverse Reaction, Intermediate, 09/15/13) Vitals & I&Os Vital Signs Date Time Temp Pulse Resp B/P (MAP) Pulse Ox O2 Delivery O2 Flow Rate FiO2 03/05/20 13:48 36.6 92 18 114/74 92 Room Air 2.00 General Appearance: Alert, Oriented X3, Cooperative Respiratory: Clear to Auscultation Cardiovascular: Regular Rate Neuro: Normal Gait, Normal Speech, Strength at 5/5 X4 Ext Psych/Mental Status: Mental Status NL Hospital Course Was the Problem List Reviewed?: Yes Hospital course: Pt had an uneventful hospital course for ten days after she was admitted from [facility] after a lumbar spine surgery. Fragile mental health made it difficult to recover but she was able to participate in all therapies, Dr. Camejo monitored her closely including BP and chronic renal insufficiency, she had no decompensation during her hospital course and will continue her therapy with home health and close follow-up with Dr. Camejo Labs (last 24 hrs) Laboratory Tests 02/24/20 12:01: Glucometer 190H 02/24/20 15:36: Glucometer 179H 02/24/20 20:15: Glucometer 222H 02/25/20 04:09: White Blood Count 10.7, Red Blood Count 3.40L, Hemoglobin 10.0#L, Hematocrit 32L , Mean Corpuscular Volume 94, Mean Corpuscular Hemoglobin 29, Mean Corpuscular Hemoglobin Concent 31L, Red Cell Distribution Width 14.4, Platelet Count 79L, Mean Platelet Volume 10.6H, Neutrophils (%) (Auto) 77H, Lymphocytes (%) (Auto) 15, Monocytes (%) (Auto) 7, Eosinophils (%) (Auto) 2, Basophils (%) (Auto) 0, Neutrophils # (Auto) 8.2H, Lymphocytes # (Auto) 1.6, Monocytes # (Auto) 0.7, Eosinophils # (Auto) 0.2, Basophils # (Auto) 0.0, Sodium Level 139, Potassium Level 4.4, Chloride Level 108H, Carbon Dioxide Level 20L, Anion Gap 11, Blood Urea Nitrogen 25H, Creatinine 1.03, Estimat Glomerular Filtration Rate 52, BUN/Creatinine Ratio 24, Glucose Level 146H, Calcium Level 8.3L, Corrected Calcium 9.2, Total Bilirubin 0.7, Aspartate Amino Transf (AST/SGOT) 106H, Alanine Aminotransferase (ALT/SGPT) 25, Alkaline Phosphatase 71, Total Protein 5.2L, Albumin 2.9L 02/25/20 09:56: Platelet Count 167 02/25/20 10:37: Glucometer 153H 02/25/20 15:42: Glucometer 163H 02/25/20 20:31: Glucometer 231H 02/26/20 05:44: Glucometer 141H 02/26/20 11:25: Glucometer 205H 02/26/20 16:06: Glucometer 126H 02/26/20 20:14: Glucometer 212H 02/27/20 05:21: Glucometer 144H 02/27/20 11:00: Glucometer 226H 02/27/20 15:39: Glucometer 156H 02/27/20 20:16: Glucometer 195H 02/28/20 06:30: Glucometer 196H 02/28/20 09:40: White Blood Count 6.0, Red Blood Count 3.55L, Hemoglobin 10.5L, Hematocrit 33L, Mean Corpuscular Volume 92, Mean Corpuscular Hemoglobin 30, Mean Corpuscular Hemoglobin Concent 32, Red Cell Distribution Width 14.7H, Platelet Count 280, Mean Platelet Volume 9.7, Sodium Level 136, Potassium Level 4.4, Chloride Level 102, Carbon Dioxide Level 26, Anion Gap 8, Blood Urea Nitrogen 31H, Creatinine 1.42H, Estimat Glomerular Filtration Rate 36, BUN/Creatinine Ratio 22, Glucose Level 208H, Calcium Level 8.9, Corrected Calcium 9.5, Iron Level 35, Total Iron Binding Capacity 220L, Unsaturated Iron Binding Capacity 185, Transferrin % Saturation 16, Ferritin 303.9H, Total Bilirubin 0.3, Aspartate Amino Transf (AST/SGOT) 30, Alanine Aminotransferase (ALT/SGPT) 15, Alkaline Phosphatase 84, Total Protein 6.3L, Albumin 3.3 02/28/20 10:51: Glucometer 191H 02/28/20 16:12: Glucometer 203H 02/28/20 20:00: Glucometer 154H 02/29/20 01:35: Glucometer 175H 02/29/20 06:39: Glucometer 166H 02/29/20 11:13: Glucometer 187H 02/29/20 16:22: Glucometer 264H 02/29/20 20:04: Glucometer 159H 03/01/20 05:26: Glucometer 178H 03/01/20 11:01: Glucometer 257H 03/01/20 11:56: Glucometer 210H 03/01/20 15:15: Glucometer 183H 03/01/20 20:04: Glucometer 245H 03/02/20 02:21: Glucometer 133H 03/02/20 06:13: Glucometer 165H 03/02/20 11:44: Glucometer 290H 03/02/20 16:12: Glucometer 159H 03/02/20 20:21: Glucometer 217H 03/03/20 05:58: Glucometer 150H 03/03/20 11:33: Glucometer 221H 03/03/20 15:07: Glucometer 134H 03/03/20 20:13: Glucometer 208H 03/04/20 04:38: Glucometer 147H 03/04/20 06:35: White Blood Count 8.7, Red Blood Count 3.58L, Hemoglobin 10.4L, Hematocrit 33L, Mean Corpuscular Volume 93, Mean Corpuscular Hemoglobin 29, Mean Corpuscular Hemoglobin Concent 31L, Red Cell Distribution Width 15.4H, Platelet Count 365, Mean Platelet Volume 9.3, Neutrophils (%) (Auto) 67, Lymphocytes (%) (Auto) 22, Monocytes (%) (Auto) 8, Eosinophils (%) (Auto) 3, Basophils (%) (Auto) 0, Neutrophils # (Auto) 5.8, Lymphocytes # (Auto) 1.9, Monocytes # (Auto) 0.7, Eosinophils # (Auto) 0.3, Basophils # (Auto) 0.0, Sodium Level 136, Potassium Level 5.2H, Chloride Level 101, Carbon Dioxide Level 24, Anion Gap 11, Blood Urea Nitrogen 28H, Creatinine 1.41H, Estimat Glomerular Filtration Rate 36, BUN/Creatinine Ratio 20, Glucose Level 160H, Calcium Level 9.2, Corrected Calcium 9.7, Total Bilirubin 0.4, Aspartate Amino Transf (AST/SGOT) 18, Alanine Aminotransferase (ALT/SGPT) 14, Alkaline Phosphatase 104, Total Protein 6.5, Albumin 3.4 03/04/20 10:53: Glucometer 275H 03/04/20 15:26: Glucometer 127H 03/04/20 16:56: Glucometer 110 03/04/20 20:04: Glucometer 231H 03/05/20 04:56: Sodium Level 136, Potassium Level 5.3H, Chloride Level 102, Carbon Dioxide Level 21, Anion Gap 13, Blood Urea Nitrogen 35H, Creatinine 1.62H, Estimat Glomerular Filtration Rate 31, BUN/Creatinine Ratio 22, Glucose Level 170H, Calcium Level 9.0, Magnesium Level 2.4 03/05/20 10:54: Glucometer 247H Pending Labs Laboratory Tests 02/24/20 12:01: Glucometer 190 02/24/20 15:36: Glucometer 179 02/24/20 20:15: Glucometer 222 02/25/20 04:09: White Blood Count 10.7, Red Blood Count 3.40, Hemoglobin 10.0, Hematocrit 32, Mean Corpuscular Volume 94, Mean Corpuscular Hemoglobin 29, Mean Corpuscular Hemoglobin Concent 31, Red Cell Distribution Width 14.4, Platelet Count 79, Mean Platelet Volume 10.6, Neutrophils (%) (Auto) 77, Lymphocytes (%) (Auto) 15, Monocytes (%) (Auto) 7, Eosinophils (%) (Auto) 2, Basophils (%) (Auto) 0, Neutrophils # (Auto) 8.2, Lymphocytes # (Auto) 1.6, Monocytes # (Auto) 0.7, Eosinophils # (Auto) 0.2, Basophils # (Auto) 0.0, Sodium Level 139, Potassium Level 4.4, Chloride Level 108, Carbon Dioxide Level 20, Anion Gap 11, Blood Urea Nitrogen 25, Creatinine 1.03, Estimat Glomerular Filtration Rate 52, BUN/Creatinine Ratio 24, Glucose Level 146, Calcium Level 8.3, Corrected Calcium 9.2, Total Bilirubin 0.7, Aspartate Amino Transf (AST/SGOT) 106, Alanine Aminotransferase (ALT/SGPT) 25, Alkaline Phosphatase 71, Total Protein 5.2, Albumin 2.9 02/25/20 09:56: Platelet Count 167 02/25/20 10:37: Glucometer 153 02/25/20 15:42: Glucometer 163 02/25/20 20:31: Glucometer 231 02/26/20 05:44: Glucometer 141 02/26/20 11:25: Glucometer 205 02/26/20 16:06: Glucometer 126 02/26/20 20:14: Glucometer 212 02/27/20 05:21: Glucometer 144 02/27/20 11:00: Glucometer 226 02/27/20 15:39: Glucometer 156 02/27/20 20:16: Glucometer 195 02/28/20 06:30: Glucometer 196 02/28/20 09:40: White Blood Count 6.0, Red Blood Count 3.55, Hemoglobin 10.5, Hematocrit 33, Mean Corpuscular Volume 92, Mean Corpuscular Hemoglobin 30, Mean Corpuscular Hemoglobin Concent 32, Red Cell Distribution Width 14.7, Platelet Count 280, Mean Platelet Volume 9.7, Sodium Level 136, Potassium Level 4.4, Chloride Level 102, Carbon Dioxide Level 26, Anion Gap 8, Blood Urea Nitrogen 31, Creatinine 1.42, Estimat Glomerular Filtration Rate 36, BUN/Creatinine Ratio 22, Glucose Level 208, Calcium Level 8.9, Corrected Calcium 9.5, Iron Level 35, Total Iron Binding Capacity 220, Unsaturated Iron Binding Capacity 185, Transferrin % Saturation 16, Ferritin 303.9, Total Bilirubin 0.3, Aspartate Amino Transf (AST/SGOT) 30, Alanine Aminotransferase (ALT/SGPT) 15, Alkaline Phosphatase 84, Total Protein 6.3, Albumin 3.3 02/28/20 10:51: Glucometer 191 02/28/20 16:12: Glucometer 203 02/28/20 20:00: Glucometer 154 02/29/20 01:35: Glucometer 175 02/29/20 06:39: Glucometer 166 02/29/20 11:13: Glucometer 187 02/29/20 16:22: Glucometer 264 02/29/20 20:04: Glucometer 159 03/01/20 05:26: Glucometer 178 03/01/20 11:01: Glucometer 257 03/01/20 11:56: Glucometer 210 03/01/20 15:15: Glucometer 183 03/01/20 20:04: Glucometer 245 03/02/20 02:21: Glucometer 133 03/02/20 06:13: Glucometer 165 03/02/20 11:44: Glucometer 290 03/02/20 16:12: Glucometer 159 03/02/20 20:21: Glucometer 217 03/03/20 05:58: Glucometer 150 03/03/20 11:33: Glucometer 221 03/03/20 15:07: Glucometer 134 03/03/20 20:13: Glucometer 208 03/04/20 04:38: Glucometer 147 03/04/20 06:35: White Blood Count 8.7, Red Blood Count 3.58, Hemoglobin 10.4, Hematocrit 33, Mean Corpuscular Volume 93, Mean Corpuscular Hemoglobin 29, Mean Corpuscular Hemoglobin Concent 31, Red Cell Distribution Width 15.4, Platelet Count 365, Mean Platelet Volume 9.3, Neutrophils (%) (Auto) 67, Lymphocytes (%) (Auto) 22, Monocytes (%) (Auto) 8, Eosinophils (%) (Auto) 3, Basophils (%) (Auto) 0, Neutrophils # (Auto) 5.8, Lymphocytes # (Auto) 1.9, Monocytes # (Auto) 0.7, Eosinophils # (Auto) 0.3, Basophils # (Auto) 0.0, Sodium Level 136, Potassium Level 5.2, Chloride Level 101, Carbon Dioxide Level 24, Anion Gap 11, Blood Urea Nitrogen 28, Creatinine 1.41, Estimat Glomerular Filtration Rate 36, BUN/Creatinine Ratio 20, Glucose Level 160, Calcium Level 9.2, Corrected Calcium 9.7, Total Bilirubin 0.4, Aspartate Amino Transf (AST/SGOT) 18, Alanine Aminotransferase (ALT/SGPT) 14, Alkaline Phosphatase 104, Total Protein 6.5, Albumin 3.4 03/04/20 10:53: Glucometer 275 03/04/20 15:26: Glucometer 127 03/04/20 16:56: Glucometer 110 03/04/20 20:04: Glucometer 231 03/05/20 04:56: Sodium Level 136, Potassium Level 5.3, Chloride Level 102, Carbon Dioxide Level 21, Anion Gap 13, Blood Urea Nitrogen 35, Creatinine 1.62, Estimat Glomerular Filtration Rate 31, BUN/Creatinine Ratio 22, Glucose Level 170, Calcium Level 9.0, Magnesium Level 2.4 03/05/20 10:54: Glucometer 247 Discharge Home Medications: Active Scripts Active Sucralfate 1 Gm Tablet 1 Gm PO TIDAC Famotidine 20 Mg Tablet 20 Mg PO DAILY Senna-Time S Tablet (Sennosides/Docusate Sodium) 1 Each Tablet 1 Ea PO BID Loratadine 10 Mg Tablet 10 Mg PO BID Metoprolol Tartrate 25 Mg Tablet 12.5 Mg PO BID 30 Days Reported Pataday (Olopatadine HCl) 2.5 Ml Drops 1 Drop OU PRN PRN Acetaminophen Extra Strength (Acetaminophen) 500 Mg Tablet 500 Mg PO TID PRN MDD 1500 Lactulose 10 Gm/15 Ml Solution 15 Ml PO BID Buspirone HCl 7.5 Mg Tablet 7.5 Mg PO TID Neurontin (Gabapentin) 300 Mg Capsule 300 Mg PO Q6H Novolog Flexpen (Insulin Aspart) 300 Units/3 Ml Solution SQ TIDAC 150-200 = 3 UNITS 201-250 = 5 UNITS 251-300 = 7 UNITS 301-350 = 9 UNITS 351-400 =11 UNITS Simvastatin 10 Mg Tablet 10 Mg PO HS Diclofenac Sodium 75 Mg Tablet.dr 75 Mg PO Q12H Duloxetine HCl 30 Mg Capsule.dr 30 Mg PO DAILY Instructions to patient/family Please see electronic discharge instructions given to patient. Diagnosis/Problems Diagnosis/Problems (1) Lumbar stenosis (2) Hx of psychosis (3) History of opioid abuse (4) Diabetes mellitus (5) GERD without esophagitis (6) Malignant hypertension Status: Acute (7) Hypertension Status: Acute (8) Debility Status: Acute (9) Anxiety about health Status: Chronic Clinical Quality Measures DVT/VTE Risk/Contraindication: Risk Factor Score Per Nursin RFS Level Per Nursing on Admit: 4+=Very High HUANG LONDON DO Mar 05, 2020 08:53
--- NOTE | 2020-03-05 09:25 | Progress Note ---
Subjective Subjective Date Seen by Provider: Mar 05, 2020 Time Seen by Provider: 09:00 PT REPORTS SIGNIFICANT GI UPSET, REFLUX OVER THE PAST TWO TO THREE DAYS - IMPROVED WITH CARAFATE AND MYLANTA PT REPORTS THAT SHE IS GOING TO BE DISCHARGED TO HOME TODAY. SHE STATES THAT SHE FEELS A LOT STRONGER AND HER BACK PAIN IS IMPROVED. Review of Systems General: Fatigue HEENT: No Head Aches, No Dysphasia Pulmonary: Dyspnea Cardiovascular: No: Palpitations Gastrointestinal: No: Nausea, Abdominal Pain Genitourinary: No Dysuria Musculoskeletal: back pain Neurological: Weakness, Numbness All Other Systems Reviewed All Other Systems Reviewed: Yes Objective Exam Vital Signs Vital Signs - First Documented 02/28/20 06:00 Temp 37.0 Pulse 99 Resp 20 B/P (MAP) 119/75 (90) Pulse Ox 95 O2 Delivery Room Air Capillary Refill : Less Than 3 Seconds General Appearance: No Apparent Distress, WD/WN Eyes: Bilateral Eye Normal Inspection, Bilateral Eye PERRL, Bilateral Eye EOMI HEENT: PERRL/EOMI, TMs Normal, Normal ENT Inspection, Pharynx Normal Neck: Full Range of Motion, Non Tender, Supple Respiratory: Chest Non Tender, Lungs Clear, Normal Breath Sounds, No Accessory Muscle Use, No Respiratory Distress Cardiovascular: Regular Rate, Rhythm, Normal Peripheral Pulses Gastrointestinal: Normal Bowel Sounds, No Organomegaly, No Pulsatile Mass, Non Tender, Soft Rectal: Deferred Back: Other (SURGICAL DRESSING IN PLACE) Extremity: Normal Capillary Refill, Normal Inspection, Non Tender, No Calf Tenderness, No Pedal Edema Neurologic/Psychiatric: Alert, Oriented x3, No Motor/Sensory Deficits, Normal Mood/Affect Skin: Normal Color, Warm/Dry Lymphatic: No Adenopathy Results Lab Laboratory Tests 03/04/20 10:53: Glucometer 275H 03/04/20 15:26: Glucometer 127H 03/04/20 16:56: Glucometer 110 03/04/20 20:04: Glucometer 231H 03/05/20 04:56: Sodium Level 136, Potassium Level 5.3H, Chloride Level 102, Carbon Dioxide Level 21, Anion Gap 13, Blood Urea Nitrogen 35H, Creatinine 1.62H, Estimat Glomerular Filtration Rate 31, BUN/Creatinine Ratio 22, Glucose Level 170H, Calcium Level 9.0, Magnesium Level 2.4 Assessment/Plan Assessment/Plan Admission Dx LUMBAR SPINAL STENOSIS FORAMINAL STENOSIS STATUS POST LUMBAR SPINE SURGERY HYPERTENSION DIABETES MELLITUS ANXIETY ANEMIA GERD LUMBAR SPINAL STENOSIS WITH NEURAL FORAMINAL STENOSIS AND STATUS POST LUMBAR SPINE SURGERY - IMPROVED BACK PAIN - CONTINUE WITH THERAPY OUTPATIENT - TYLENOL FOR PAIN CONTROL HYPERTENSION - RESTARTED HOME REGIMEN, MONITOR PRESSURE CLOSELY, ADJUST MEDICATIONS NEEDED. - HOLDING AMLODIPINE, ANTICIPATE WHEN LAN GOES HOME SHE WILL HAVE INCREASE IN BP DIABETES MELLITUS - RESTART HOME REGIMEN - MONITOR FSBS SERIALLY ANXIETY RESUME HOME REGIMEN ANEMIA - MONITOR LABS GERD - PEPCID AND CARAFATE STARTED Problems: (1) Lumbar stenosis (2) Hx of psychosis (3) History of opioid abuse (4) Diabetes mellitus (5) GERD without esophagitis (6) Malignant hypertension (7) Hypertension (8) Debility (9) Anxiety about health Admission Dx LUMBAR SPINAL STENOSIS FORAMINAL STENOSIS STATUS POST LUMBAR SPINE SURGERY HYPERTENSION DIABETES MELLITUS ANXIETY ANEMIA LUMBAR SPINAL STENOSIS WITH NEURAL FORAMINAL STENOSIS AND STATUS POST LUMBAR SPINE SURGERY - IMPROVED BACK PAIN - CONTINUE WITH THERAPY - TYLENOL FOR PAIN CONTROL HYPERTENSION - RESTARTED HOME REGIMEN, MONITOR PRESSURE CLOSELY, ADJUST MEDICATIONS NEEDED. DIABETES MELLITUS - RESTART HOME REGIMEN - MONITOR FSBS SERIALLY ANXIETY RESUME HOME REGIMEN ANEMIA - MONITOR LABS Clinical Quality Measures Admission Status Admission Dx LUMBAR SPINAL STENOSIS FORAMINAL STENOSIS STATUS POST LUMBAR SPINE SURGERY HYPERTENSION DIABETES MELLITUS ANXIETY ANEMIA LUMBAR SPINAL STENOSIS WITH NEURAL FORAMINAL STENOSIS AND STATUS POST LUMBAR SPINE SURGERY - IMPROVED BACK PAIN - CONTINUE WITH THERAPY - TYLENOL FOR PAIN CONTROL HYPERTENSION - RESTARTED HOME REGIMEN, MONITOR PRESSURE CLOSELY, ADJUST MEDICATIONS NEEDED. DIABETES MELLITUS - RESTART HOME REGIMEN - MONITOR FSBS SERIALLY ANXIETY RESUME HOME REGIMEN ANEMIA - MONITOR LABS DVT/VTE Risk/Contraindication: Risk Factor Score Per Nursin RFS Level Per Nursing on Admit: 4+=Very High DEBORAH MORALES MD Mar 05, 2020 09:25
--- NOTE | 2020-03-05 13:30 | Therapy Team Discharge Summary ---
Therapy Discharge Summary Discharge Recommendations Date of Discharge Physical Therapy Patient came to rehab with LBP with radiculopathy s/o fusion. Upon evaluation patient performed bed mobility with setup, supine <-> sit with CGA, transfers CGA, ambulated 50' with a rolling walker with CGA, no stairs. Patient has been performing bed mobility and transfer training, balance and endurance training, functional strengthening, stair training, gait training, and education. Patient has made some progress but has not met her residential goals for car transfer or stairs. Now, patient performs bed mobility and transfers with independence, car transfer with setup, ambulates 150' with a rolling walker with independence, and can go up and down 4 steps using 2 handrails with CGA/SBA. Patient is discharging from this facility today and will be discharged from PT at this time. Occupational Therapy Decreased UE Strength, Impaired Self-Care Skills PT Custodial Goals Custodial Goals PT Custodial Goals Time Frame: Mar 09, 2020 Roll Left to Right (QC): 6 Sit to Lying (QC): 6 Lying-Sitting on Side/Bed(QC): 6 Sit to Stand (QC): 6 Chair/[id number]-Lgbqy Xfer(QC): 6 Car Transfer (QC): 6 Does the Patient Walk: Yes Walk 10 feet (QC): 6 Walk 10ft-Uneven Surface(QC): 6 Walk 50ft with 2 Turns (QC): 6 Walk 150 ft (QC): 6 Does the Pt use WC or Scooter?: No Wheel 50 feet with 2 turns (QC: 9 1 Step (curb) (QC): 6 4 Steps (QC): 6 12 Steps (QC): 9 Picking up an Object (QC): 9 OT Manager Life Sciences Goals Manager Life Sciences Goals Time Frame: Mar 09, 2020 Eating (QC): 6 Oral Hygiene (QC): 6 Shower/Bathe Self (QC): 6 Upper Body Dressing (QC): 6 Lower Body Dressing (QC): 6 On/Off Footwear (QC): 6 Toileting Hygiene (QC): 6 Toilet/Commode Transfer (QC): 6 Additional Goals: 1-Demonstrate ADL Tasks, 2-Verbalize Understanding, 3- ImproveStrength/Tessa 1=Demonstrate adherence to instructed precautions during ADL tasks. 2=Patient will verbalize/demonstrate understanding of assistive devices/modifications for ADL. 3=Patient will improve strength/tolerance for activity to enable patient to perform ADL's. JT FLORES PT Mar 05, 2020 13:30
[2020-03-05 13:48] VITALS: BP 114/74
--- NOTE | 2020-03-05 14:22 | NUR ---
CM/SS DISCHARGE Patient discharged to home with her spouse as before. HHC: Coordinated/resumed with her established agency, [facility] for RN and PT. DME: No new assistive devices required. IMM2 presented, reviewed, signed, charted.
--- NOTE | 2020-03-07 10:43 | Therapy Team Discharge Summary ---
Therapy Discharge Summary Discharge Recommendations Date of Discharge Mar 05, 2020 at 13:30 Occupational Therapy Pt admits with L2-5 fusion. Pt admitting QCs: showring 2, UB dressing 5, LB dr essing 1, footwear 2, toileting 4. Pt and OT work towards higher fx IND through AE training, ADL activities, functional strength/ endurance training, safety issues. Pt d/c's without reaching all LTGs, limited by pain and medical status. D/c'ing QC's: showering 6, UB dressing 5, LB dressing 5, footwear 3, toileting 6. Pt to d/c with recommendations of hip kit, d/c OT at this time. Decreased UE Strength, Impaired Self-Care Skills PT [facility] Goals Supervisory Historian Goals PT Supervisory Historian Goals Time Frame: Mar 09, 2020 Roll Left to Right (QC): 6 Sit to Lying (QC): 6 Lying-Sitting on Side/Bed(QC): 6 Sit to Stand (QC): 6 Chair/Wpz-xa-Zhkhh Xfer(QC): 6 Car Transfer (QC): 6 Does the Patient Walk: Yes Walk 10 feet (QC): 6 Walk 10ft-Uneven Surface(QC): 6 Walk 50ft with 2 Turns (QC): 6 Walk 150 ft (QC): 6 Does the Pt use WC or Scooter?: No Wheel 50 feet with 2 turns (QC: 9 1 Step (curb) (QC): 6 4 Steps (QC): 6 12 Steps (QC): 9 Picking up an Object (QC): 9 OT [facility] Goals Supervisory Historian Goals Time Frame: Mar 09, 2020 Eating (QC): 6 Oral Hygiene (QC): 6 Shower/Bathe Self (QC): 6 Upper Body Dressing (QC): 6 Lower Body Dressing (QC): 6 On/Off Footwear (QC): 6 Toileting Hygiene (QC): 6 Toilet/Commode Transfer (QC): 6 Additional Goals: 1-Demonstrate ADL Tasks, 2-Verbalize Understanding, 3- ImproveStrength/Tessa 1=Demonstrate adherence to instructed precautions during ADL tasks. 2=Patient will verbalize/demonstrate understanding of assistive devices/modifications for ADL. 3=Patient will improve strength/tolerance for activity to enable patient to perform ADL's. MADDY DAHL OTR Mar 07, 2020 10:43
== END 2020-03-05 13:30 | disposition home health service (06) | DRG 561 ==
PROVIDERS: ADMIT Internal Medicine; ATTEND Internal Medicine
DX: Z47.89 Encounter for other orthopedic aftercare (principal); Z98.1 Arthrodesis status; I10 Essential (primary) hypertension; E11.9 Type 2 diabetes mellitus without complications; K59.00 Constipation, unspecified; K21.9 Gastro-esophageal reflux disease without esophagitis; M19.91 Primary osteoarthritis, unspecified site; D64.9 Anemia, unspecified; E78.00 Pure hypercholesterolemia, unspecified; F41.9 Anxiety disorder, unspecified; F32.9 Major depressive disorder, single episode, unspecified; G47.00 Insomnia, unspecified; H92.03 Otalgia, bilateral; G43.909 Migraine, unspecified, not intractable, without status migrainosus; Z99.81 Dependence on supplemental oxygen; Z79.4 Long term (current) use of insulin
CPT/HCPCS: 36415; 80048; 80053; 82728; 82962; 83540; 83735; 85025; 85027; 85049; 93005

== ENCOUNTER 2020-03-08 13:27 | Inpatient (IN) | payer MEDICARE, OTHER ==
[~2020-03-08 13:27] MED LIST changes: +ACET-168 PO; -ACETAMINOPHEN 500 MG TAB (TYLENOL) PO PRN; -BISACODYL 10 MG SUPP (DULCOLAX) PR PRN; -DOCUSATE SODIUM 100 MG (COLACE) CAP PO PRN; +FAMO20TA5 PO; -FLEET ENEMA ADULT 1 EA BTL PR PRN; +LACT10SO PO; -LACTULOSE SYRUP 10GM/15ML (ENULOSE) 30ML UDC PO PRN; -LOPERAMIDE 2 MG (IMODIUM) TABLET PO PRN; +LORA10TA7 PO; +MAG355OR17 PO; +MAGN30OR PO; +METR-145 PO; +OLOP2.5D12 OU; +OLOP2.5D6 OP; -ONDANSETRON 4 MG (ZOFRAN) ORAL DISSOLVE TAB PO PRN; +SENN-20 PO; +SUCR1TAB PO; -diphenhydrAMINE 25 MG TAB (BENADRYL) PO PRN; -guaiFENesin/CODEINE (ROBITUSSIN AC) 10ML UDC PO PRN
[2020-03-08 15:45] VITALS: BP 129/71
--- NOTE | 2020-03-08 16:00 | NUR ---
ADRIANA FERRELL admitted to room 511-1, with an admitting diagnosis of CHF , on 03/08/[address] Camejo's office via wheelchair, accompanied by and staff. ADRIANA FERRELL introduced to surroundings, call light, bed controls, phone, TV, temperature control, lights, meal times, smoking policy, visitor policy, side rail policy, bathrooms and showers. Patient Rights given to patient in the handbook. ADRIANA FERRELL verbalizes understanding that [facility] is not responsible for the loss or damage to any personal effects or valuables that are kept in the patients possession during their hospitalization. The following Patient Care Plans were discussed with the patient and : Discharge Planning, pain management, dehydration, and medications. ADRIANA FERRELL verbalizes understanding of Interdisciplinary Patient Education. Patient and/or family were informed about the Rapid Response Team and its purpose.
[2020-03-08] MEDS ORDERED: FUROSEMIDE 40 MG/4 ML INJ (LASIX) IV NR (17:21)
[2020-03-08] MEDS ORDERED: ENOXAPARIN 40 MG/0.4 ML (LOVENOX) SYR SC SCH (17:30)
[2020-03-08] MEDS ORDERED: CATHETER FLUSH 10 ML SYR IV PRN (17:30)
--- NOTE | 2020-03-08 17:35 | Consultation-Cardiology ---
HPI-Cardiology Cardiology Consultation Date of Consultation 03/08/20 Date of Admission Time Seen by Provider: 17:00 Indication: shortness of breath HPI 74-year-old lady with history of hypertension, hyperlipidemia and diabetes mellitus. Was discharged recently from the hospital, noted to have worsening fatigue and shortness of breath. Loss of energy. Denied any chest pain, noted that she has been having pedal edema. Seen by Dr. Camejo and referred for direct admission for congestive heart failure. On my evaluation she was still short of breath at rest, anxious. Denied any chest pain, reporting significant pedal edema. Home Medications & Allergies Allergies: Coded Allergies: clonidine (Verified Allergy, Unknown, NAUSEA, 03/14/19) Penicillins (Unverified Adverse Reaction, Intermediate, 03/14/19) Sulfa (Sulfonamide Antibiotics) (Unverified Adverse Reaction, Intermediate, 03/14/19) Uncoded Allergies: ivp dye (Adverse Reaction, Intermediate, 09/15/13) Home Medication List Reviewed: Yes [id number] Hx Patient Social History Marital Status: Alcohol Use: Denies Use Recreational Drug Use: No 2nd Hand Smoke Exposure: No Recent Foreign Travel: No Recent Infectious Disease Expo: No Recent Hopitalizations: No Physical Abuse Screen: No Sexual Abuse: No Immunizations Up To Date Tetanus Booster (TDap): More than 5yrs Date of Pneumonia Vaccine: May 31, 2018 Date of Influenza Vaccine: Aug 25, 2013 Past Medical History Discussed below Family Medical History Significant Family History: Heart Disease, Cancer, Stroke Family History: Cancer 03 FATHER (RADICAL NECK CANCER ) Family history: Cardiovascular disease 09 BROTHER Stroke 09 BROTHER, Onset:60 ( FROM STROKE) Review of Systems-General Review of Systems Constitutional: no symptoms reported, see HPI EENTM: see HPI, no symptoms reported Respiratory: no symptoms reported, see HPI Cardiovascular: see HPI Gastrointestinal: no symptoms reported, see HPI Genitourinary: no symptoms reported, see HPI Musculoskeletal: no symptoms reported, see HPI Skin: no symptoms reported, see HPI Psychiatric/Neurological: No Symptoms Reported, See HPI Physical Exam Physical Exam Vital Signs Vital Signs - First Documented 03/08/20 15:45 Temp 36.9 Pulse 92 Resp 25 B/P (MAP) 129/71 (90) Pulse Ox 92 O2 Delivery Nasal Cannula O2 Flow Rate 5.00 Capillary Refill : Height, Weight, BMI Height: 5'7.00" Weight: 180lbs. 0.8oz. [id number]; 31.38 BMI Method:Stated General Appearance: No Apparent Distress, WD/WN Eyes: Bilateral Eye Normal Inspection, Bilateral Eye PERRL, Bilateral Eye EOMI HEENT: PERRL/EOMI, TMs Normal, Normal ENT Inspection, Pharynx Normal, Moist Mucous Membranes Neck: Full Range of Motion, Normal Inspection, Non Tender, Supple, Carotid Bruit Respiratory: Chest Non Tender, Normal Breath Sounds, No Accessory Muscle Use, No Respiratory Distress Cardiovascular: Regular Rate, Rhythm, No Edema, No Gallop, No JVD, Normal Peripheral Pulses, Systolic Murmur Gastrointestinal: Normal Bowel Sounds, No Organomegaly, No Pulsatile Mass, Non Tender, Soft Back: Normal Inspection, No CVA Tenderness, No Vertebral Tenderness Extremity: Normal Capillary Refill, Normal Inspection, Normal Range of Motion, Non Tender, No Calf Tenderness, Pedal Edema Neurologic/Psychiatric: Alert, Oriented x3, No Motor/Sensory Deficits, Normal Mood/Affect Skin: Normal Color, Warm/Dry Lymphatic: No Adenopathy A/P-Cardiology Admission Diagnosis Congestive heart failure Hypertension Hyperlipidemia Lumbar stenosis Assessment/Plan Congestive heart failure, worsening shortness of breath and peripheral edema, started on diuretics. I will evaluate 2-D echocardiogram. Evaluate troponin level. Hypertension, restart home medication monitor blood pressure Hyperlipidemia, restart medication monitor lipids Lumbar stenosis, status post recent lumbar surgery. Generalized weakness and debility. Clinical Quality Measures DVT/VTE Risk/Contraindication: Risk Factor Score Per Nursin RFS Level Per Nursing on Admit: 3=High YARI ROOT MD Mar 08, 2020 17:35
[2020-03-08 20:00] VITALS: BP 138/76
--- NOTE | 2020-03-08 20:17 | Consultation - Surgery ---
History of Present Illness History of Present Illness Patient Consulted On(akhil/time) 03/08/20 20:11 Date Seen by Provider: Mar 08, 2020 Time Seen by Provider: 18:33 Reason for Visit: shortness of breath History of Present Illness Consult requested by Dr. Samson for central line placement She is 74-year-old female who is admitted for congestive heart failure. Patient was having increasing shortness of breath and fatigue. Patient seen by Dr. Camejo who admitted directly from the office. Patient states she still having shortness of breath. Patient does have peripheral IV access this time. She does note having difficulty with IVs and multiple blood draws. Patient was recently hospitalized and had lumbar surgery she states. Patient is uncomfortable. She states she has no real appetite. She has a little bit of postsurgical pain from their lumbar surgery otherwise no other complaints at this time. Patient is not sure she wants a central line. Allergies and Home Medications Allergies Coded Allergies: clonidine (Verified Allergy, Unknown, NAUSEA, 03/14/19) Penicillins (Unverified Adverse Reaction, Intermediate, 03/14/19) Sulfa (Sulfonamide Antibiotics) (Unverified Adverse Reaction, Intermediate , 03/14/19) Uncoded Allergies: ivp dye (Adverse Reaction, Intermediate, 09/15/13) Home Medications Acetaminophen 500 Mg Tablet, 500 MG PO TID PRN for PAIN-MILD (1-4), (Reported) Buspirone HCl 7.5 Mg Tablet, 7.5 MG PO TID, (Reported) Diclofenac Sodium 75 Mg Tablet.dr, 75 MG PO Q12H, (Reported) Duloxetine HCl 30 Mg Capsule.dr, 30 MG PO DAILY, (Reported) Famotidine 20 Mg Tablet, 20 MG PO DAILY Prescribed by: HUANG LONDON on 03/04/202201 Gabapentin 300 Mg Capsule, 300 MG PO Q6H, (Reported) Insulin Aspart 300 Units/3 Ml Solution, SQ TIDAC, (Reported) 150-200 = 3 UNITS 201-250 = 5 UNITS 251-300 = 7 UNITS 301-350 = 9 UNITS 351- 400 =11 UNITS Lactulose 10 Gm/15 Ml Solution, 15 ML PO BID, (Reported) Loratadine 10 Mg Tablet, 10 MG PO BID Prescribed by: HUANG LONDON on 03/04/202201 Metoprolol Tartrate 25 Mg Tablet, 12.5 MG PO BID Prescribed by: HUANG LONDON on 03/04/202201 Olopatadine HCl 2.5 Ml Drops, 1 DROP OU PRN PRN for ALLERGY SYMPTOMS, (Reported) Sennosides/Docusate Sodium 1 Each Tablet, 1 EA PO BID Prescribed by: HUANG LONDON on 03/04/202201 Simvastatin 10 Mg Tablet, 10 MG PO HS, (Reported) Sucralfate 1 Gm Tablet, 1 GM PO TIDAC Prescribed by: HUANG LONDON on 03/04/202201 Patient Home Medication List Home Medication List Reviewed: Yes Past Mfbsfqm-Zqvjbp-Qmidyb Hx Patient Social History Alcohol Use: Denies Use Recreational Drug Use: No 2nd Hand Smoke Exposure: No Recent Foreign Travel: No Contact w/Someone Who Travel: No Recent Infectious Disease Expo: No Recent Hopitalizations: No Physical Abuse Screen: No Sexual Abuse: No Immunizations Up To Date Tetanus Booster (TDap): More than 5yrs Date of Pneumonia Vaccine: May 31, 2018 Date of Influenza Vaccine: Aug 25, 2013 Seasonal Allergies Seasonal Allergies: No Surgeries History of Surgeries: Yes (BACK SX. left foot sx,) Surgeries: Adenoidectomy, Appendectomy, Section, Hysterectomy, Oophorectomy, Orthopedic, Tonsillectomy Respiratory History of Respiratory Disorde: No Cardiovascular History of Cardiac Disorders: Yes Cardiac Disorders: High Cholesterol, Hypertension Neurological History of Neurological Disord: No 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 System Hx 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 Disorders: No Sexually Transmitted Disease: No HIV/AIDS: No Female 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 Disorders: Ovarian Cyst VP SCIENTIFIC History: Hysterectomy Genitourinary History of Genitourinary Disor: No Gastrointestinal History of Gastrointestinal Di: Yes Gastrointestinal Disorders: Gastroesophageal Reflux Musculoskeletal History of Musculoskeletal Dis: Yes (severe chronic back pain with right sided radicular symptoms) Musculoskeletal Disorders: Degenerate Disk Disease, Arthritis, Chronic Back Pain Endocrine History of Endocrine Disorders: Yes Endocrine Disorders: Diabetes, Insulin dep HEENT History of HEENT Disorders: No Loss of Vision: Denies Hearing Impairment: Denies Cancer History of Cancer: No Psychosocial History of Psychiatric Problem: Yes Behavioral Health Disorders: Anxiety, Depression Integumentary History of Skin or Integumenta: No Blood Transfusions History of Blood Disorders: No Adverse Reaction to a Blood Tr: No Reviewed Nursing Assessment Reviewed/Agree w Nursing PMH: Yes Family Medical History Significant Family History: Heart Disease, Cancer, Stroke Family Medial History: Cancer 03 FATHER (RADICAL NECK CANCER ) Family history: Cardiovascular disease 09 BROTHER Stroke 09 BROTHER, Onset:60 ( FROM STROKE) Review of Systems-General Constitutional: No fever; weakness EENTM: no symptoms reported; No ear pain, No blurred vision Respiratory: dyspnea on exertion, short of breath Cardiovascular: No chest pain; edema Gastrointestinal: no symptoms reported; No abdominal pain, No heartburn Genitourinary: no symptoms reported Musculoskeletal: back pain; No joint pain Skin: No change in color, No change in hair/nails Psychiatric/Neurological: No Symptoms Reported; Denies Depressed, Denies Seizure All Other Systems Reviewed Negative Unless Noted: Yes (Negative excepted noted.) Physical Exam-General Problems Physical Exam Vital Signs Vital Signs - First Documented 03/08/20 15:45 Temp 36.9 Pulse 92 Resp 25 B/P (MAP) 129/71 (90) Pulse Ox 92 O2 Delivery Nasal Cannula O2 Flow Rate 5.00 Capillary Refill : General Appearance: no apparent distress HEENT: PERRL/EOMI, normal ENT inspection Neck: supple, normal inspection Respiratory: chest non-tender, other (Slightly labored breathing) Cardiovascular: regular rate, rhythm; No no edema Gastrointestinal: non tender, soft, no organomegaly Rectal: deferred Back: other (Lower back tenderness minimal, no significant increase in muscle tone of back) Extremities: No inflammation; pedal edema, swelling Neurologic/Psychiatric: no motor/sensory deficits, alert, normal mood/affect, oriented x 3 Skin: normal color, warm/dry Lymphatic: no adenopathy Data Review Labs Laboratory Tests 03/08/20 17:37: Glucometer 133H Assessment/Plan Assessment/Plan Assessment/Plan Congestive heart failure Shortness of breath Recent lumbar surgery Poor venous access Patient is a 74-year-old female with poor venous access, however she does have a peripheral IV access at this time. We did discuss central line placement she understands risk and benefits she wishes to hold off at this time since she does have peripheral access. Patient states that she loses though she would like to proceed with central line placement. We will sign off at this time, if the patient needs central line please call Clinical Quality Measures DVT/VTE Risk/Contraindication: Risk Factor Score Per Nursin RFS Level Per Nursing on Admit: 3=High KELY PORTILLO DO Mar 08, 2020 20:17
--- NOTE | 2020-03-08 21:05 | NUR ---
DR. TIRADO NOTIFIED THAT PATIENT WAS C/O PAIN AND WAS EXPERIENCED INCREASED ANXIETY WITH SOA. ORDER RECEIVED TO RESTART SOME HOME MEDS INCLUDING PAIN MEDICATION, ANXIETY MEDICATION AND NEURONTIN. SEE EMAR FOR DETAILS. 0500-PATIENT REMAINED IN CHAIR FOR THE REMAINDER OF THE NIGHT AND STATES THAT SHE GOT THE "BEST SLEEP SHE HAS IN WEEKS". PATIENT DENIES ANY COMPLAINTS AT THIS TIME. HOME MEDICATIONS IN LOCK-UP.
[2020-03-08] MEDS ORDERED: NON-FORMULARY MEDICATION 1 EA EA (Diclofenac Sodium 75 MG) PO SCH (21:15)
[2020-03-08] MEDS ORDERED: ACETAMINOPHEN 500 MG TAB (TYLENOL) PO PRN (21:15)
[2020-03-08] MEDS: GABAPENTIN 300 MG (NEURONTIN) CAP PO SCH (21:55)
[2020-03-08] MEDS ORDERED: busPIRone 15 MG (BUSPAR) TABLET ONE (21:56)
[2020-03-08] MEDS: busPIRone 5 MG (BUSPAR) TAB PO SCH (22:00)
[2020-03-09] VITALS (12 sets, daily range): BP systolic 107–155; BP diastolic 63–84
[2020-03-09 03:51] LABS: HEMOGLOBIN 9.5 G/DL (11.5-16.0); MEAN PLATELET VOLUME 9.5 FL (7.4-10.4); RED CELL DISTRIBUTION WIDTH 15.2 % (10.0-14.5); WHITE BLOOD COUNT 7.3 10^3/uL (4.3-11.0)
[2020-03-09] MEDS: GABAPENTIN 300 MG (NEURONTIN) CAP PO SCH ×3 (04:07→16:11)
[2020-03-09 04:19] LABS: ALBUMIN 3.1 GM/DL (3.2-4.5); POTASSIUM 5.1 MMOL/L (3.6-5.0)
[2020-03-09 04:21] LABS: CALCIUM 8.4 MG/DL (8.5-10.1)
[2020-03-09 04:22] LABS: TOTAL PROTEIN 6.1 GM/DL (6.4-8.2)
[2020-03-09 04:24] LABS: BILIRUBIN,TOTAL 0.4 MG/DL (0.1-1.0)
[2020-03-09 04:25] LABS: CREATININE SERUM 2.36 MG/DL (0.60-1.30); PROTHROMBIN TIME PATIENT 13.5 SEC (12.2-14.7)
[2020-03-09] MEDS: FUROSEMIDE 40 MG/4 ML INJ (LASIX) IVP SCH ×2 (06:01→16:16)
[2020-03-09] MEDS: CATHETER FLUSH 10 ML SYR IV SCH ×3 (06:01→14:09)
[2020-03-09] MEDS ORDERED: NON-FORMULARY MEDICATION 1 EA EA (Buspirone HCl 7.5 MG) PO SCH (09:00)
[2020-03-09] MEDS ORDERED: ETODOLAC 300 MG (LODINE) CAP PO SCH (09:00)
[2020-03-09] MEDS: busPIRone 5 MG (BUSPAR) TAB PO SCH ×2 (09:15→14:08)
--- NOTE | 2020-03-09 11:15 | Progress Note ---
Subjective Date Seen by a Provider: Mar 09, 2020 Time Seen by a Provider: 11:10 Subjective/Events-last exam Fwup CHF, Hypertension, Anxiety, Recent back surgery, DMII, Acute on Chronic Renal Failure. Diuresed well and feeling much better but troponin-I elevated and ECHO shows EF of 10%. Objective Exam Vital Signs Date Time Temp Pulse Resp B/P (MAP) Pulse Ox O2 Delivery O2 Flow Rate FiO2 03/09/20 08:00 Nasal Cannula 5.00 03/09/20 07:54 36.0 79 17 117/70 (86) 93 Nasal Cannula 5.00 03/09/20 07:47 71 03/09/20 04:45 36.3 85 16 130/82 (98) 92 Nasal Cannula 6.00 03/09/20 04:00 94 Nasal Cannula 6.00 03/09/20 01:00 83 03/09/20 00:00 36.8 88 24 155/70 (98) 92 Nasal Cannula 6.00 03/09/20 00:00 94 Nasal Cannula 6.00 03/08/20 22:06 91 Nasal Cannula 6.00 03/08/20 21:00 94 Nasal Cannula 6.00 03/08/20 20:00 93 Nasal Cannula 6.00 03/08/20 20:00 36.5 90 22 138/76 (96) 93 Nasal Cannula 6.00 03/08/20 19:57 99 03/08/20 15:45 36.9 92 25 129/71 (90) 92 Nasal Cannula 6.00 03/08/20 15:45 Nasal Cannula 5.00 I & O 03/09/20 07:00 Intake Total 500 ml Output Total 2050 ml Balance -1550 ml Capillary Refill : NONE General Appearance: No Apparent Distress Neck: Supple Respiratory: Lungs Clear Cardiovascular: Regular Rate, Rhythm, Systolic Murmur Gastrointestinal: normal bowel sounds, non tender, soft Extremity: Non Tender, No Calf Tenderness, Pedal Edema Neurologic/Psychiatric: Alert, Oriented x3 Skin: Warm/Dry Results Lab Laboratory Tests 03/08/20 17:37: Glucometer 133H 03/08/20 21:17: Glucometer 233H 03/09/20 03:28: White Blood Count 7.3, Red Blood Count 3.29L, Hemoglobin 9.5L, Hematocrit 30L, Mean Corpuscular Volume 92, Mean Corpuscular Hemoglobin 29, Mean Corpuscular Hemoglobin Concent 31L, Red Cell Distribution Width 15.2H, Platelet Count 417H, Mean Platelet Volume 9.5, Prothrombin Time 13.5, INR Comment 1.0, Activated Partial Thromboplast Time 42H, Sodium Level 135, Potassium Level 5.1H, Chloride Level 100, Carbon Dioxide Level 24, Anion Gap 11, Blood Urea Nitrogen 49H, Creatinine 2.36H, Estimat Glomerular Filtration Rate 20, BUN/Creatinine Ratio 21, Glucose Level 127H, Calcium Level 8.4L, Corrected Calcium 9.1, Total Bilirubin 0.4, Aspartate Amino Transf (AST/SGOT) 18, Alanine Aminotransferase (ALT/SGPT) 10, Alkaline Phosphatase 111, Troponin I 1.453*H, B-Type Natriuretic Peptide 4211.0H, Total Protein 6.1L, Albumin 3.1L, Triglycerides Level 124, Cholesterol Level 163, LDL Cholesterol Direct 97, VLDL Cholesterol 25, HDL Cholesterol 48, Thyroid Stimulating Hormone (TSH) 0.98 03/09/20 08:14: Glucometer 151H 03/09/20 10:34: Glucometer 165H Assessment/Plan Assessment/Plan Assess & Plan/Chief Complaint 1. Acute Systolic Congestive Heart Failure--diuresed well with lasix but with EF of 10% needs cardiac cath 2. Acute on Chronic Renal Failure--risk of dialysis discussed with patient if proceeds with cardiac cath but also understands the risks of not proceeding due to elevated troponin and EF 3. Non STEMI--cardiac cath recommended 4. Hypetension--stable 5. DMII--insulin requiring--accuchecks with SSI Clinical Quality Measures DVT/VTE Risk/Contraindication: Risk Factor Score Per Nursin RFS Level Per Nursing on Admit: 3=High KORIN TIRADO DO Mar 09, 2020 11:15
--- NOTE | 2020-03-09 11:54 | Cardiology Progress Note ---
Subjective Date Seen by Provider: Mar 09, 2020 Time Seen by Provider: 11:52 Subjective/Events-last exam Patient is laying down in bed, still having some shortness of breath and pedal edema. Feeling better. Review of Systems General: No Chills, No Night Sweats; Fatigue, Malaise; No Appetite, No Other HEENT: No Head Aches, No Visual Changes, No Eye Pain, No Ear Pain, No Dysphasia, No Sinus Congestion, No Post Nasal Drip, No Sore Throat, No Other Pulmonary: Dyspnea; No Cough, No Pleuritic Chest Pain, No Other Cardiovascular: Edema; No: Chest Pain, Palpitations, Orthopnea, Paroxysmal Noc. Dyspnea, Lt Headedness, Other Objective-Cardiology Exam Last Set of Vital Signs Vital Signs 03/09/20 03/09/20 07:54 08:00 Temp 36.0 Pulse 79 Resp 17 B/P (MAP) 117/70 (86) Pulse Ox 93 O2 Delivery Nasal Cannula O2 Flow Rate 5.00 Capillary Refill : NONE I&O Intake and Output 03/09/20 00:00 Intake Total 200 ml Output Total 950 ml Balance -750 ml Intake Oral 200 ml Output Urine Total 950 ml Daily Weight Change No No General: Alert, Oriented X3, Cooperative HEENT: Atraumatic, PERRLA Neck: Supple, No JVD, No Thyromegaly Lungs: Normal Air Movement, Other (Mild bilateral rhonchi) Heart: Regular Rate, Normal S1, Normal S2 Abdomen: Normal Bowel Sounds, Soft, No Tenderness, No Hepatosplenomegaly, No Masses Extremities: No Clubbing, No Cyanosis, Normal Pulses, No Tenderness/Swelling, Other (Pedal edema) Skin: No Rashes, No Breakdown, No Significant Lesion Neuro: Normal Gait, Normal Speech, Strength at 5/5 X4 Ext, Normal Tone, Sensation Intact Psych/Mental Status: Mental Status NL, Mood NL Results Lab Laboratory Tests 03/09/20 03:28 A/P-Cardiology Admission Diagnosis Congestive heart failure Hypertension Hyperlipidemia Lumbar stenosis Assessment/Plan Congestive heart failure, acute left ventricular systolic dysfunction, no previous history of heart failure. Probably ischemic in nature, recommended cardiac catheterization possible PTCA. Coronary artery disease, non-ST elevation myocardial infarction with elevated troponin level. Not having any active chest pain. Recommended cardiac catheterization possible PTCA. Patient requested time to discuss it with her family and decide. I received a call later that the patient has agreed on having the procedure done. Acute renal failure, discussed the possibility of progression into end stage kidney disease with a cardiac catheterization use contrast. Patient understand and agree with the procedure. Hypertension, monitor blood pressure Hyperlipidemia, monitor lipids Lumbar stenosis, status post recent lumbar surgery, last surgery was done 2 weeks ago. Generalized weakness and debility. Clinical Quality Measures DVT/VTE Risk/Contraindication: Risk Factor Score Per Nursin RFS Level Per Nursing on Admit: 3=High YARI ROOT MD Mar 09, 2020 11:54
[2020-03-09] MEDS ORDERED: NS IV 1000 ML 1,000 ML IV SCH ×2 (12:00→13:19)
[2020-03-09] MEDS ORDERED: methylPREDNISolone 125 MG (Solu-MEDROL) VIAL IVP NR (12:00)
[2020-03-09] MEDS ORDERED: HEParin (CATH LAB) 2,000 ML IV ONE (12:04)
[2020-03-09] MEDS ORDERED: NS IV 1000 ML 1,000 ML ONE (12:04)
[2020-03-09] MEDS ORDERED: LIDOCAINE 1% INJ 20 ML 20 ML VIAL ONE (12:04)
[2020-03-09] MEDS ORDERED: fentaNYL INJECTION 100 MCG/2 ML AMP ONE (12:05)
[2020-03-09] MEDS ORDERED: MIDAZOLAM 5 MG/5 ML (VERSED) VIAL ONE (12:05)
[2020-03-09] MEDS: inSUlin ASPART (NovoLOG) 1 UNIT/0.01 ML (CHARGE PER UNIT) SC SCH ×2 (12:12→16:08)
[2020-03-09] MEDS ORDERED: diphenhydrAMINE 50 MG/ML INJ (BENADRYL) ONE (12:47)
--- NOTE | 2020-03-09 13:20 | NUR ---
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 cath site is covered with minx dressing
--- NOTE | 2020-03-09 13:25 | Cardiac Cath Report ---
Cardiac Cath Report Physician (s)/Resident Caregiver (s) Physician YARI ROOT MD Pre-Procedure Diagnosis Pre-Procedure Diagnosis: Congestive heart failure, non-ST elevation FL Post-Procedure Note Procedure Start Date: Mar 09, 2020 Name of Procedure: Left heart catheterization Findings/Procedure Note PROCEDURE NOTE: 74-year-old lady with history of hypertension, hyperlipidemia, admitted with acute congestive heart failure, elevated troponin, non-ST FL, decided to proceed with cardiac catheterization possible PTCA to review and evaluate her coronary anatomy. After explaining the procedure to the patient, all pros and cons were explained, all questions were answered. The patient signed the consent and then she was placed on the cardiac catheterization laboratory. Groin was prepped SL fashion local anesthesia was used. Sheath placed in the right femoral artery. Paul right and left catheter were used to access the coronary system. JR catheter advanced to the left ventricular cavity, pressure was measured no left ventricular gram was done At the end of the procedure the sheath was removed. Closure device was used FINDINGS: Hemodynamics LV 102/25, end-diastolic pressure 25 Aorta 106/45 mean of 69 ANATOMY: Left Main has mild disease in the midportion nonobstructive disease Left Anterior Descending has subtotal occlusion at its ostium, severe stenosis at the midportion with MEGAN 2 flow in the LAD Left Circumflex is moderate in size, large ramus intermedius branch with 50-60 percent stenosis proximally Right Coronory Artery is a dominant artery, totally occluded proximally, getting collaterals from the left LV Gram was not done, pressure was measured CONCLUSION: 1. Severe multivessel disease with subtotal occlusion in the proximal LAD severe stenosis in the mid LAD with slow flow in the LAD, total occlusion of a large dominant right coronary artery getting collaterals from the left, moderate to severe stenosis in the proximal ramus intermedius branch. 2. Elevated left ventricular end-diastolic pressure, severe cardiomyopathy with ejection fraction 15-20 percent per echo DISCUSSION AND RECOMMENDATION: Patient had a recent back surgery. Discussed with the patient and her family the management plan recommended transfer to tertiary care center for evaluation for possible CABG, consideration for high risk intervention if she is not a candidate for CABG Hospital course: Patient was admitted to telemetry unit, cardiac catheterization was carried out as described above, I discussed the management plan with the family and with Dr. Camejo and Dr. Dey, arrangement to transfer the patient to [facility] for evaluation for CABG. Final diagnosis: Non-ST elevation myocardial infarction Coronary artery disease Congestive heart failure, acute left ventricular systolic dysfunction, ischemic cardiomyopathy Hyperlipidemia Anesthesia Type: Conscious Sedation Estimated blood loss (mL): 20 ml Contrast Amount: 14 ml Total Radiation Dose: 317 mGy Post-Procedure Diagnosis Post-operative diagnosis: Coronary artery disease, non-ST elevation myocardial infarction Congestive heart failure, acute left ventricular systolic dysfunction, ischemic cardiomyopathy, ejection fraction 15 percent Hyperlipidemia Hypertension YARI ROOT MD Mar 09, 2020 13:25
--- NOTE | 2020-03-09 13:27 | Discharge Inst-Post CATH ---
Discharge Inst-CATH/EP Problems Reviewed?: Yes Post Cardiac Cath/EP D/C Inst Follow Up/Plan Appointment with Dr. Samson's office in 2-4 weeks <b>CARDIAC CATH/EP PROCEDURE DISCHARGE INSTRUCTIONS</b> ACTIVITY * Go Home directly and rest. * Limit activity of the leg (or wrist if it was used) for 7 days including aerobics, swimming, jogging, bicycling, etc. * Restrict stair-climbing for 7 days if possible, if not, climb up with your non-cath leg, then bring together on the same step. * Avoid lifting, pushing, pulling or excessive movement of the affected extremity for 7 days. * Customary sexual activity may be resumed after 2 days-use caution not to use a position that strains or causes pain to the affected extremity. * No driving for 24 hours. * NO SMOKING. * Avoid straining for bowel movements for 7 days. * Gentle walking on level ground is allowed. * Returning to work will depend on the type of procedure and the results. Your doctor will discuss this with you. CALL YOUR DOCTOR FOR ANY OF THE FOLLOWING: *If bleeding from the puncture site occurs- Apply gentle pressure to site with clean cloth and call your doctor or EMS. * If a knot or lump forms under the skin, increases in size, or causes pain. * If bruising appears to be worsening or moving further down your leg instead of disappearing. * Temperature above 101 F. CARE OF YOUR GROIN INCISION; * Bruising or purple discoloration of the skin near the puncture site is common. * You may shower only, no bathtub bathing for 5 days. Be careful to avoid slipping as your leg may feel stiff. * If a closure device was used on your femoral artery, please see the attached guide regarding care of the device and your leg. * Leave dressing on FOR 24 hours. CARE OF YOUR WRIST INCISION; * Bruising or purple discoloration of the skin near the puncture site is common. * You may shower. * DO NOT submerge wrist. * Leave dressing on FOR 24 hours. YARI SAMSON MD Mar 09, 2020 13:27
[2020-03-09] MEDS ORDERED: PATIENT MAY USE OWN MEDS, ALL PO SCH (13:30)
[2020-03-09] MEDS ORDERED: ASPIRIN E.C. 325 MG (ECOTRIN) TABLET PO NR (13:30)
--- NOTE | 2020-03-09 15:46 | NUR ---
REPORT CALLED TO EMILE TERRY
[2020-03-09] MEDS ORDERED: ENOXAPARIN 30 MG/0.3 ML (LOVENOX) SYR SC SCH (18:30)
[2020-03-10] MEDS ORDERED: ASPIRIN E.C. 81 MG (ECOTRIN) TAB PO SCH (09:00)
[2020-03-10] MEDS ORDERED: DULoxetine 30 MG (CYMBALTA) CAP PO SCH (09:00)
== END 2020-03-09 17:00 | disposition short-term general hospital (02) | DRG 280 ==
LOC: CSD 16:34
PROVIDERS: ADMIT Family Medicine; ATTEND Family Medicine
PROC: 4A023N7 Measurement of Cardiac Sampling and Pressure, Left Heart, Percutaneous Approach (ICD-10-PCS; principal; 2020-03-09)
PROC: B2111ZZ Fluoroscopy of Multiple Coronary Arteries using Low Osmolar Contrast (ICD-10-PCS; 2020-03-09)
DX: I13.0 Hypertensive heart and chronic kidney disease with heart failure and stage 1 through stage 4 chronic kidney disease, or unspecified chronic kidney disease (principal); I50.21 Acute systolic (congestive) heart failure; I21.4 Non-ST elevation (NSTEMI) myocardial infarction; N18.9 Chronic kidney disease, unspecified; N17.9 Acute kidney failure, unspecified; I25.10 Atherosclerotic heart disease of native coronary artery without angina pectoris; I25.5 Ischemic cardiomyopathy; E11.9 Type 2 diabetes mellitus without complications; E78.5 Hyperlipidemia, unspecified; K21.9 Gastro-esophageal reflux disease without esophagitis; M19.91 Primary osteoarthritis, unspecified site; F41.9 Anxiety disorder, unspecified; F32.9 Major depressive disorder, single episode, unspecified; M48.061 Spinal stenosis, lumbar region without neurogenic claudication; R53.1 Weakness; R53.81 Other malaise; Z79.4 Long term (current) use of insulin
CPT/HCPCS: 36415; 80053; 80061; 82962; 83880; 84443; 84484; 85027; 85610; 85730; 93306; 93458; 94760

== ENCOUNTER → 2020-12-17 | Outpatient (CLI) | payer MEDICARE, OTHER ==
[~2020-12-17] MED LIST changes: +AMLO-251 PO; -AMLO10TA7 PO; +CLN.1T; -CLON0.1T; -LACT10SO PO; +LACT10SO3 PO; -MECL-172 PO; +MECL-215 PO; -OXYC-465 PO; +OXYC-556 PO
--- NOTE | 2020-12-18 06:53 | Diagnostic Imaging Report ---
INDICATION: Routine screening Comparison is made with prior mammogram 09/12/2019 and 07/15/2018. 2-D and 3-D bilateral screening mammography was performed with CAD. Both breasts are heterogeneously dense, limiting the sensitivity of mammography. Benign calcifications throughout the right breast are again noted. No mass or malignant appearing microcalcifications are seen. Axillae are unremarkable. IMPRESSION: BI-RADS Category 2 No mammographic features suspicious for malignancy are identified. ACR BI-RADS Category 2: Benign findings. Result letter will be mailed to the patient. Note: At least 10% of breast cancer is not imaged by mammography. Dictated by: Dictated on workstation # [id number]
== END ==
LOC: RAD 15:11
PROVIDERS: ATTEND Nurse Practitioner Family
DX: Z12.31 Encounter for screening mammogram for malignant neoplasm of breast (principal)
CPT/HCPCS: 77063; 77067